=== PATIENT | female | born 1980 | race Caucasian/White ===

== ENCOUNTER 2021-02-13 14:08 | Inpatient (IN) | payer MEDICARE, SELFPAY ==
--- NOTE | ~2021-02-13 | XR_ITS ---
EXAMINATION: XR CHEST CLINICAL INFORMATION: Hemoptysis. COMPARISON: Chest 02/13/2021 TECHNIQUE: Frontal view of the chest was obtained. FINDINGS: The lungs are well-expanded with patchy opacity seen right lower lobe, right upper lobe and ill-defined patchy opacity left midlung likely developing infiltrates. No pleural effusion seen. Heart size and vascularity is normal. No gross bony abnormality seen. Previously visualized right central venous catheter has been removed. No gross bony abnormality. XR/XR chest 1V IMPRESSION: Patchy opacity right lower lobe, right upper lung and left midlung
--- NOTE | ~2021-02-13 | CT_ITS ---
EXAMINATION: CT CHEST WITHOUT CONTRAST CLINICAL INFORMATION: eval for empyema, sob, cough, fever . COMPARISON: 10/28/2019. TECHNIQUE: Multidetector volumetric imaging was performed from the thoracic inlet through the lung bases without contrast. Sagittal and coronal reformatted images were obtained on the technologist workstation. Soft tissue and lung algorithms evaluated. Thick slab MIP images were performed to increase nodule conspicuity. This CT examination was performed using dose optimization techniques as appropriate, variously including the following: *Automated exposure control *Adjustment of mA and/or kV according to patient size (this includes techniques or standardized protocols for targeted exams where dose is matched to indication/reason for exam; i.e. extremities or head) *Use of iterative reconstruction technique DLP: 241 mGy-cm. FINDINGS: LUNG: Patchy bilateral airspace disease is seen some of which is cavitary in nature. The largest area of focal airspace disease in the right upper lobe measures up to 4.4 cm in maximal diameter. These regions have a regular ill-defined margins more suggestive of underlying infectious or inflammatory causes. There are additional scattered thin wall cavity is now present which were not present on the prior CT scan. The underlying etiology is uncertain but multifocal infectious etiology would be favored. Infected septic emboli could have this distribution. MEDIASTINUM: No bulky hilar or mediastinal adenopathy. Right-sided IJ central venous catheter tip near the cavoatrial junction. PERICARDIUM/PLEURA: No significant effusion. No pleural mass or thickening. THYROID/VISUALIZED LOWER NECK: Unremarkable. CHEST WALL/AXILLA: Prominent bilateral axillary lymph nodes but no bulky adenopathy VISUALIZED UPPER ABDOMEN: Surgical clips in the left upper quadrant likely from prior splenectomy. BONES: Chronic compression deformity and degenerative changes in lower thoracic spine similar to the [address]/CT chest wo con IMPRESSION: New patchy bilateral airspace disease some which are cavitary. Focal infectious etiology would be strongly favored with this appearance. Septic emboli could have this distribution and should be clinically correlated..
--- NOTE | ~2021-02-13 | IR_ITS ---
EXAMINATION: REMOVAL OF DAVIES CATHETER CLINICAL INFORMATION: Sepsis. Likely infected Davies catheter. COMPARISON: None. TECHNIQUE: Following explaining the procedure, benefits and risk, a written consent was obtained. The site of insertion of Davies catheter was cleaned and draped in usual sterile manner. 1% lidocaine was injected at the insertion site of the Davies catheter and the skin incision was bluntly dissected. The cuff was loosened and the catheter was removed. Complete hemostasis achieved at puncture site. Sterile dressing applied postprocedure. Patient tolerated procedure well. IR/IR cvc remove any age FINDINGS/IMPRESSION: Successful removal of right Davies catheter. The tip of the Davies catheter was sent to pathology for [employer] SUPER[employer]. There was no immediate bleeding.
--- NOTE | ~2021-02-13 | US_ITS ---
EXAMINATION: US VENOUS ULTRASOUND WITH DOPPLER LOWER EXTREMITY, BILATERAL CLINICAL INFORMATION: Bilateral lower extremity swelling. COMPARISON: None TECHNIQUE: Ultrasound of the deep veins is performed from the hip to the calf with compression sonography and color and pulse Doppler assessment. Spectral analysis with color-flow imaging is performed. FINDINGS: RIGHT: There is normal venous compression and respiratory variation and augmented flow. The visualized common femoral vein, superficial femoral vein, profunda femoral vein, popliteal vein, and the trifurcation region shows no evidence of deep venous thrombosis. There is no popliteal fossa cyst. LEFT: There is acute DVT seen in the left popliteal vein. The left common femoral, superficial femoral, profunda femoral and visualized posterior tibial and peroneal veins in the calf are patent. There is no Bell's cyst. There is left renal lymphadenopathy. US/US venous duplex LE BI IMPRESSION: Left: Left popliteal vein DVT. Right: No evidence of DVT.
--- NOTE | ~2021-02-13 | XR_ITS ---
EXAMINATION: XR CHEST CLINICAL INFORMATION: Central line placement COMPARISON: Chest 10/28/2019 TECHNIQUE: 2 views of the chest were obtained. FINDINGS: There is a patchy opacities seen in the right upper lobe and right lower lobe likely infiltrates or underlying lesions. There is patchy scattered opacity in the left midlung. The heart size and pulmonary vascularity is normal. There is a right Zaman insertion with its tip in mid to distal SVC. No gross bony abnormality seen. XR/XR chest 2V IMPRESSION: Patchy opacities in right upper lobe and right lower lobe and scattered opacity left mid lobe likely developing infiltrates. Right Zaman catheter tip is in mid SVC.
[2021-02-13 14:26] VITALS: BP 175/95; PULSE 94; RESP 18; TEMP 36.9; O2SAT 94; BMI 25.8
--- NOTE | 2021-02-13 15:25 | ECG_ITS ---
Test Reason : CHEST PAIN Blood Pressure : / mmHG Vent. Rate : 086 BPM Atrial Rate : 086 BPM P-R Int : 170 ms QRS Dur : 096 ms QT Int : 366 ms P-R-T Axes : 058 014 032 degrees QTc Int : 437 ms Sinus rhythm with occasional Premature ventricular complexes Possible Left atrial enlargement Borderline ECG When compared with ECG of 28-OCT-2019 20:02, Premature ventricular complexes are now Present Premature atrial complexes are no longer Present Referred By: Chloé Shah Electronically Signed By:EDUARDO SHEPPARD
--- NOTE | 2021-02-13 16:20 | ED.CHESTPAIN ---
HPI - Chest Pain General Chief Complaint: Chest Pain Stated Complaint: Diff breathing swollen feet Time Seen by Provider: 02/13/21 15:08 Source: patient Mode of arrival: ambulatory Limitations: no limitations History of Present Illness HPI narrative: 40-year-old female with a past medical history of MRSA bacteremia with bilateral empyemas, septic emboli, multifocal PNA requiring chest tube placement ([facility] initially then transfer to [facility] for thoracics consult 12/21-01/11-evaluated for VATS and decision made not to perform secondary to clinical improvement). Plan was IV vancomycin with stop date of February 14. Patient was transfer from [facility] on January 11 to a long-term care facility for continued IV antibiotics. She tells me she left there approximately 1 week ago because she did not like it there. Since leaving she has used heroin approximately 1 bundle per day. Denies current IV drug use. She was on 76mg of methadone during her admission.The last few days she has had chest discomfort which is when deep breathing, productive cough with green sputum, body aches, bilateral lower extremity swelling and pain. Of note the patient also has a medical history of PTSD, bipolar disorder, antiphospholipid syndrome complicated by CVA, multiple DVT's/PE's s/p IVC filter, on 81mg ASA daily, lupus, CKD, HTN, hepatitis C s/p treatment with epclusa Related Data Home Medications Medication Instructions Recorded Confirmed albuterol sulfate 90 mcg/actuation 2 puff INHALATION Q6H PRN 02/28/20 02/13/21 aerosol inhaler famotidine 20 mg tablet 20 mg PO DAILY 02/28/20 02/13/21 quetiapine 400 mg tablet (Seroquel) 400 mg PO BEDTIME 02/28/20 02/13/21 amlodipine 10 mg tablet 10 mg PO DAILY 02/13/21 02/13/21 aspirin 81 mg chewable tablet 81 mg PO DAILY 02/13/21 02/13/21 clonidine HCl 0.1 mg tablet 0.1 mg PO BID PRN 02/13/21 02/13/21 melatonin 5 mg tablet 5 mg PO BEDTIME PRN 02/13/21 02/13/21 sumatriptan succinate 50 mg tablet 50 mg PO Q2H PRN 02/13/21 02/13/21 (Imitrex) topiramate 200 mg tablet 200 mg PO BID 02/13/21 02/13/21 Allergies Allergy/AdvReac Type Severity Reaction Status Date / Time bee pollen [BEE STINGS] Allergy Severe Anaphylaxis Verified 02/13/21 14:25 codeine [CODEINE] Allergy Severe ANAPHYLAXIS Verified 02/13/21 14:25 Iodinated Contrast Media Allergy Severe DIFFICULTY Verified 02/13/21 14:25 [IV DYE, IODINE CONTAINING BREATHING CONTRAST ] nut - unspecified [nut] Allergy Intermediate Rash Verified 02/13/21 14:25 shellfish derived Allergy Intermediate Rash Verified 02/13/21 14:25 Sulfa (Sulfonamide Allergy Unknown ANAPHYLAXIS Verified 02/13/21 14:25 Antibiotics) [SULFA (SULFONAMIDE ANTIBIOTICS)] Review of Systems Review of Systems: Yes all other systems are reviewed and are negative Constitutional: Constitutional: Reports no additional constitutional complaints, Reports body ache(s), Denies chills, Denies fever(s), Denies headache(s) and Denies weakness Eyes: Eyes: Reports no additional eye complaints and Denies change in vision ENT: Reports system reviewed and no additional complaints, except as documented, Denies dizziness, Denies headache(s), Denies nasal congestion, Denies nasal discharge and Denies neck pain Cardiovascular: Cardiovascular: Reports no additional cardiovascular complaints, Reports chest pain, Reports leg edema and Reports dyspnea Respiratory: Respiratory: Reports no additional respiratory complaints, Reports cough and Reports dyspnea Gastrointestinal: Gastrointestinal: Reports no additional gastrointestinal complaints, Denies abdominal pain, Denies diarrhea, Denies nausea and Denies vomiting Genitourinary: Genitourinary: Reports no additional female genitourinary complaints and Denies urinary incontinence Musculoskeletal: Musculoskeletal: Reports no additional musculoskeletal complaints, Denies back pain, Denies arthralgias, Denies joint swelling, Denies neck pain, Denies numbness and Denies tingling Integumentary/Breasts: Skin/Breast: Reports system reviewed and no additional complaints, except as docu and Denies rash Neurologic: Reports system reviewed and no additional complaints, except as documented, Denies Abnormal speech present, Denies dizziness, Denies headache(s), Denies numbness, Denies tingling and Denies weakness PMFSH Past Medical History Attestation statement: The following information was validated with the patient. Source: old records reviewed and nursing notes reviewed Medical History (Updated 02/13/21 @ 21:24 by hCloé Shah NP) DVT (deep venous thrombosis) Margie filter in place Lupus Pneumonia Pulmonary emboli Surgical History History of appendectomy Hx of splenectomy Social History Social History Advance Directives: No Advance Directives Information Provided: No Patient : No Physical Exam Vital Signs: Vital Signs: Last Vital Signs Temp 99 F 02/13/21 20:07 Pulse 58 02/13/21 20:07 Resp 18 02/13/21 20:07 BP 149/105 H 02/13/21 20:07 Pulse Ox 94 02/13/21 20:07 Body Mass Index 25.8 Const: General: cooperative, healthy appearing, comfortable and no acute distress Orientation/consciousness: patient oriented x3 Limitations: no limitations HENMT: Head: Yes normal to inspection Ears: hearing grossly normal bilaterally General nose exam: Normal external nose present Face and sinus: Yes normal facial exam Mouth: Normal oral and palatal mucosa present Throat: Yes posterior oropharynx normal Eyes: General: appearance normal, both eyes and all related structures Pupils: Equal, round and reactive pupils present Neck: Neck: Yes normal visual inspection and Yes full ROM Chest: Other: Zaman noted to the right chest wall-FLUSHES WITH +BLOOD RETURN Chest palpation & inspection: normal inspection of the chest and tenderness (Diffusely tender) Resp: Effort & Inspection: normal respiratory effort Auscultation: clear to auscultation bilaterally Cardio: Rate: regular rate Rhythm: regular rhythm Peripheral pulses: Peripheral pulses 2+ throughout GI: Inspection: Yes normal to inspection Palpation (GI): Soft to palpation and nontender Auscultation: normal bowel sounds Back/Spine/Pelvis: Thoracic/Lumbar Spine: thoracic and lumbar spine normal to inspection Skin: General skin exam: no rashes or lesions noted Neuro: General: patient oriented x3, no focal motor deficits and normal sensation to monofilament Cranial nerves: Yes Equal, round and reactive pupils present Cognition (Neuro): normal cognition Speech: No Abnormal speech present Gait exam (Neuro): Normal gait present Motor exam (neuro): 5/5 motor strength present throughout Extrem: Other: Tenderness to bilateral calves. There is pitting edema 3+ noted to the bilateral lower extremities. Palpable distal pulses noted. General: Yes normal to inspection Course Course Course Narrative: 40-year-old female coming in today with complaints of chest discomfort which is worsened with deep breathing with some mild shortness of breath, productive cough, body aches, chills and lower extremity swelling for several days. Of note the patient recently had a prolonged hospitalization for MRSA bacteremia with bilateral empyema is requiring chest tube placement and Thoracics consult, septic emboli, multifocal PNA and hypoxemia with discharged to a long-term care facility on January 11 for IV antibiotics until February 14. Patient left against medical advice 1 week ago with a Zaman in the right chest wall. On arrival she is disheveled, unkept. Her vital signs are stable. She has bilateral lower extremity swelling just pitting. Will need labs including blood cultures and lactic acid, chest x-ray, possible CT chest, bilateral lower extremity ultrasound, COVID screen and admission 1614-at this time infection is suspected. Antibiotics ordered. 163-call from Radiology. Ultrasound of lower extremity shows an acute DVT in the left popliteal vein. Patient has an IVC filter. She is not on any anticoagulation with the exception of aspirin 81 mg. Will follow 172-x-ray concerning IMPRESSION: Patchy opacities in right upper lobe and right lower lobe and scattered opacity left mid lobe likely developing infiltrates. ? Right Zaman catheter tip is in mid SVC. Will check CT chest. Unable to give IV contrast to r/o PE d/t allergy. However, patient has IVC filter so less likely. 1800-spoke to Cecy Espino the psychiatric nurse practitioner in regards to methadone dosing. Recommended starting patient at 20 mg and then reassessing at 04:00 hours for an additional 5-10 mg. She will follow up patient for additional dosage 1857-CT chest shows new patchy bilateral airspace disease some which are cavitary. Septic emboli could have his distribution and should be clinically correlated. Patient does have history of same. Will speak to Medicine to admit 1929-discussed with Dr. Whitehead who accepted admission. Requesting discussion with hematology to determine need for anticoagulation with new DVT and history of antiphospholipid syndrome not currently on anticoagulation. Patient tells me that she had been on Coumadin until 2014. It was discontinued due to heavy vaginal bleeding and the decision was made by her team to place her on 81 mg of aspirin only. She has not had a DVT since prior to 2014. Spoke to Dr. Casiano from Hematology. She recommended anticoagulating the patient with Lovenox. The medicine team was informed. MDM - Chest Pain Medical Records Data Attestation: I reviewed the patient's medical records. Lab Data Attestation: I reviewed the patient's lab results. Result diagrams: 02/13/21 16:11 02/13/21 16:11 Labs: Lab Results 02/13/21 02/13/21 02/13/21 Range/Units 16:11 16:11 16:11 WBC 20.9 H (4.8-10.8) X10*3/uL RBC 3.23 L (4.20-5.50) X10*6/uL Hgb 10.3 L (12.0-16.0) g/dl Hct 31.3 L (37-47) % MCV 96.9 (80-98) fL MCH 31.9 (27.0-33.0) pg MCHC 32.9 (31.0-35.0) g/dl RDW 14.5 (11.0-16.0) % Plt Count 323 (160-400) X10*3/uL MPV 12.2 (9.4-12.3) fL Immature Gran % (Auto) Cancelled Neut % (Auto) Cancelled Lymph % (Auto) Cancelled [place] % (Auto) Cancelled Eos % (Auto) Cancelled Baso % (Auto) Cancelled Lymph # (Auto) Cancelled [place] # (Auto) Cancelled Eos # (Auto) Cancelled Baso # (Auto) Cancelled Abs Immat Gran (auto) Cancelled Absolute Neuts (auto) Cancelled Absolute Nucleated RBC 0.000 (0.0-0.012) X10*3/uL Nucleated RBC % (auto) 0.0 (0.0-0.2) /100WBC Neutrophils % (Manual) 87 H (45-73) % Band Neutrophils % 2 L (3-5) % Lymphocytes % (Manual) 6 L (20-40) % Monocytes % (Manual) 5 (2-11) % Abs Neuts (Manual) 18.6 H (2.2-7.9) X10*3/uL Lymphocytes # (Manual) 1.3 (0.6-4.8) X10*3/uL Monocytes # (Manual) 1.0 (0.0-1.2) X10*3/uL Toxic Vacuolation PRESENT Platelet Estimate NORMAL (NORMAL) Large Platelets PRESENT Plt Morphology Comment NOTED RBC Morphology NOTED Polychromasia 1+ (0-2) /OIF Microcytosis 1+ (5-14) /OIF Stomatocytes 1+ (5-14) /OIF [place] Cells 1+ (0-2) /OIF PT 12.9 (9.9-13.0) SEC INR 1.1 (0.9-1.1) Sodium 138 (135-145) mmol/L Potassium 3.4 (3.3-5.1) mmol/L Chloride 99 (96-108) mmol/L Carbon Dioxide 27 (22-29) mmol/L Anion Gap 15 (12-20) BUN 12 (9-16) mg/dL Creatinine 1.40 (0.5-1.4) mg/dL Estim Creat Clear Calc 57.7 Estimated GFR 41 Random Glucose 88 (60-115) mg/dL Lactic Acid (0.5-2.0) mmol/L Calcium 9.0 (8.4-10.2) mg/dL Magnesium 1.6 (1.6-2.6) mg/dL Total Bilirubin 0.8 (0.0-1.0) mg/dL Direct Bilirubin 0.2 (0.0-0.5) mg/dL AST 17 (5-31) U/L ALT 6 (0-31) U/L Alkaline Phosphatase 181 H (39-117) U/L Total Creatine Kinase (26-140) U/L Troponin I High Sens (<3.5-17.0) ng/L B-Natriuretic Peptide (<100) pg/mL Total Protein 7.1 (6.5-8.0) g/dL Albumin 3.0 L (3.5-5.0) g/dL Urine Color Urine Appearance Urine pH (5.0-8.0) Ur Specific [place] (1.005-1.025) Urine Protein (NEG-TRACE) MG/DL Urine Glucose (UA) (NEG) MG/DL Urine Ketones (NEG) MG/DL Urine Blood (NEG) Urine Nitrite (NEG) Ur Leukocyte Esterase (NEG) Urine RBC (0) /HPF Urine WBC (0-4) /HPF Ur Squamous Epith Cells /LPF Urine Bacteria /LPF Urine Test (NEGATIVE) Urine Opiates Screen (Not Detect) Urine Fentanyl Screen (Not Detect) Ur Barbiturates Screen (Not Detect) Ur Phencyclidine Scrn (Not Detect) Ur Amphetamines Screen (Not Detect) U Benzodiazepines Scrn (Not Detect) Urine Cocaine Screen (Not Detect) U Marijuana (THC) Screen (Not Detect) Ethyl Alcohol mg/dL COVID-19 (ADAM) (Negative) COVID-19 Clin Com 02/13/21 02/13/21 02/13/21 Range/Units 16:11 16:11 16:11 WBC (4.8-10.8) X10*3/uL RBC (4.20-5.50) X10*6/uL Hgb (12.0-16.0) g/dl Hct (37-47) % MCV (80-98) fL MCH (27.0-33.0) pg MCHC (31.0-35.0) g/dl RDW (11.0-16.0) % Plt Count (160-400) X10*3/uL MPV (9.4-12.3) fL Immature Gran % (Auto) Neut % (Auto) Lymph % (Auto) [place] % (Auto) Eos % (Auto) Baso % (Auto) Lymph # (Auto) [place] # (Auto) Eos # (Auto) Baso # (Auto) Abs Immat Gran (auto) Absolute Neuts (auto) Absolute Nucleated RBC (0.0-0.012) X10*3/uL Nucleated RBC % (auto) (0.0-0.2) /100WBC Neutrophils % (Manual) (45-73) % Band Neutrophils % (3-5) % Lymphocytes % (Manual) (20-40) % Monocytes % (Manual) (2-11) % Abs Neuts (Manual) (2.2-7.9) X10*3/uL Lymphocytes # (Manual) (0.6-4.8) X10*3/uL Monocytes # (Manual) (0.0-1.2) X10*3/uL Toxic Vacuolation Platelet Estimate (NORMAL) Large Platelets Plt Morphology Comment RBC Morphology Polychromasia /OIF Microcytosis /OIF Stomatocytes /OIF Annie Cells /OIF PT (9.9-13.0) SEC INR (0.9-1.1) Sodium (135-145) mmol/L Potassium (3.3-5.1) mmol/L Chloride (96-108) mmol/L Carbon Dioxide (22-29) mmol/L Anion Gap (12-20) BUN (9-16) mg/dL Creatinine (0.5-1.4) mg/dL Estim Creat Clear Calc Estimated GFR Random Glucose (60-115) mg/dL Lactic Acid 1.0 (0.5-2.0) mmol/L Calcium (8.4-10.2) mg/dL Magnesium (1.6-2.6) mg/dL Total Bilirubin (0.0-1.0) mg/dL Direct Bilirubin (0.0-0.5) mg/dL AST (5-31) U/L ALT (0-31) U/L Alkaline Phosphatase (39-117) U/L Total Creatine Kinase 19 L (26-140) U/L Troponin I High Sens 18.5 H* (<3.5-17.0) ng/L B-Natriuretic Peptide 115 H (<100) pg/mL Total Protein (6.5-8.0) g/dL Albumin (3.5-5.0) g/dL Urine Color Urine Appearance Urine pH (5.0-8.0) Ur Specific [place] (1.005-1.025) Urine Protein (NEG-TRACE) MG/DL Urine Glucose (UA) (NEG) MG/DL Urine Ketones (NEG) MG/DL Urine Blood (NEG) Urine Nitrite (NEG) Ur Leukocyte Esterase (NEG) Urine RBC (0) /HPF Urine WBC (0-4) /HPF Ur Squamous Epith Cells /LPF Urine Bacteria /LPF Urine Test (NEGATIVE) Urine Opiates Screen (Not Detect) Urine Fentanyl Screen (Not Detect) Ur Barbiturates Screen (Not Detect) Ur Phencyclidine Scrn (Not Detect) Ur Amphetamines Screen (Not Detect) U Benzodiazepines Scrn (Not Detect) Urine Cocaine Screen (Not Detect) U Marijuana (THC) Screen (Not Detect) Ethyl Alcohol mg/dL COVID-19 (ADAM) (Negative) COVID-19 Clin Com 02/13/21 02/13/21 02/13/21 Range/Units 16:11 16:21 19:16 WBC (4.8-10.8) X10*3/uL RBC (4.20-5.50) X10*6/uL Hgb (12.0-16.0) g/dl Hct (37-47) % MCV (80-98) fL MCH (27.0-33.0) pg MCHC (31.0-35.0) g/dl RDW (11.0-16.0) % Plt Count (160-400) X10*3/uL MPV (9.4-12.3) fL Immature Gran % (Auto) Neut % (Auto) Lymph % (Auto) [place] % (Auto) Eos % (Auto) Baso % (Auto) Lymph # (Auto) [place] # (Auto) Eos # (Auto) Baso # (Auto) Abs Immat Gran (auto) Absolute Neuts (auto) Absolute Nucleated RBC (0.0-0.012) X10*3/uL Nucleated RBC % (auto) (0.0-0.2) /100WBC Neutrophils % (Manual) (45-73) % Band Neutrophils % (3-5) % Lymphocytes % (Manual) (20-40) % Monocytes % (Manual) (2-11) % Abs Neuts (Manual) (2.2-7.9) X10*3/uL Lymphocytes # (Manual) (0.6-4.8) X10*3/uL Monocytes # (Manual) (0.0-1.2) X10*3/uL Toxic Vacuolation Platelet Estimate (NORMAL) Large Platelets Plt Morphology Comment RBC Morphology Polychromasia /OIF Microcytosis /OIF Stomatocytes /OIF Annie Cells /OIF PT (9.9-13.0) SEC INR (0.9-1.1) Sodium (135-145) mmol/L Potassium (3.3-5.1) mmol/L Chloride (96-108) mmol/L Carbon Dioxide (22-29) mmol/L Anion Gap (12-20) BUN (9-16) mg/dL Creatinine (0.5-1.4) mg/dL Estim Creat Clear Calc Estimated GFR Random Glucose (60-115) mg/dL Lactic Acid (0.5-2.0) mmol/L Calcium (8.4-10.2) mg/dL Magnesium (1.6-2.6) mg/dL Total Bilirubin (0.0-1.0) mg/dL Direct Bilirubin (0.0-0.5) mg/dL AST (5-31) U/L ALT (0-31) U/L Alkaline Phosphatase (39-117) U/L Total Creatine Kinase (26-140) U/L Troponin I High Sens (<3.5-17.0) ng/L B-Natriuretic Peptide (<100) pg/mL Total Protein (6.5-8.0) g/dL Albumin (3.5-5.0) g/dL Urine Color YELLOW Urine Appearance HAZY Urine pH 6.0 (5.0-8.0) Ur Specific [place] 1.025 (1.005-1.025) Urine Protein 2+ H (NEG-TRACE) MG/DL Urine Glucose (UA) NEG (NEG) MG/DL Urine Ketones NEG (NEG) MG/DL Urine Blood 3+ H (NEG) Urine Nitrite NEG (NEG) Ur Leukocyte Esterase NEG (NEG) Urine RBC 1-4 (0) /HPF Urine WBC 0 (0-4) /HPF Ur Squamous Epith Cells 4+ /LPF Urine Bacteria 2+ /LPF Urine Test (NEGATIVE) Urine Opiates Screen (Not Detect) Urine Fentanyl Screen (Not Detect) Ur Barbiturates Screen (Not Detect) Ur Phencyclidine Scrn (Not Detect) Ur Amphetamines Screen (Not Detect) U Benzodiazepines Scrn (Not Detect) Urine Cocaine Screen (Not Detect) U Marijuana (THC) Screen (Not Detect) Ethyl Alcohol < 10 mg/dL COVID-19 (ADAM) Negative (Negative) COVID-19 Clin Com See Note 02/13/21 02/13/21 02/13/21 Range/Units 19:16 19:16 19:23 WBC (4.8-10.8) X10*3/uL RBC (4.20-5.50) X10*6/uL Hgb (12.0-16.0) g/dl Hct (37-47) % MCV (80-98) fL MCH (27.0-33.0) pg MCHC (31.0-35.0) g/dl RDW (11.0-16.0) % Plt Count (160-400) X10*3/uL MPV (9.4-12.3) fL Immature Gran % (Auto) Neut % (Auto) Lymph % (Auto) [place] % (Auto) Eos % (Auto) Baso % (Auto) Lymph # (Auto) [place] # (Auto) Eos # (Auto) Baso # (Auto) Abs Immat Gran (auto) Absolute Neuts (auto) Absolute Nucleated RBC (0.0-0.012) X10*3/uL Nucleated RBC % (auto) (0.0-0.2) /100WBC Neutrophils % (Manual) (45-73) % Band Neutrophils % (3-5) % Lymphocytes % (Manual) (20-40) % Monocytes % (Manual) (2-11) % Abs Neuts (Manual) (2.2-7.9) X10*3/uL Lymphocytes # (Manual) (0.6-4.8) X10*3/uL Monocytes # (Manual) (0.0-1.2) X10*3/uL Toxic Vacuolation Platelet Estimate (NORMAL) Large Platelets Plt Morphology Comment RBC Morphology Polychromasia /OIF Microcytosis /OIF Stomatocytes /OIF [place] Cells /OIF PT (9.9-13.0) SEC INR (0.9-1.1) Sodium (135-145) mmol/L Potassium (3.3-5.1) mmol/L Chloride (96-108) mmol/L Carbon Dioxide (22-29) mmol/L Anion Gap (12-20) BUN (9-16) mg/dL Creatinine (0.5-1.4) mg/dL Estim Creat Clear Calc Estimated GFR Random Glucose (60-115) mg/dL Lactic Acid (0.5-2.0) mmol/L Calcium (8.4-10.2) mg/dL Magnesium (1.6-2.6) mg/dL Total Bilirubin (0.0-1.0) mg/dL Direct Bilirubin (0.0-0.5) mg/dL AST (5-31) U/L ALT (0-31) U/L Alkaline Phosphatase (39-117) U/L Total Creatine Kinase (26-140) U/L Troponin I High Sens 17.1 H* (<3.5-17.0) ng/L B-Natriuretic Peptide (<100) pg/mL Total Protein (6.5-8.0) g/dL Albumin (3.5-5.0) g/dL Urine Color Urine Appearance Urine pH (5.0-8.0) Ur Specific [place] (1.005-1.025) Urine Protein (NEG-TRACE) MG/DL Urine Glucose (UA) (NEG) MG/DL Urine Ketones (NEG) MG/DL Urine Blood (NEG) Urine Nitrite (NEG) Ur Leukocyte Esterase (NEG) Urine RBC (0) /HPF Urine WBC (0-4) /HPF Ur Squamous Epith Cells /LPF Urine Bacteria /LPF Urine Test NEGATIVE (NEGATIVE) Urine Opiates Screen POSITIVE H (Not Detect) Urine Fentanyl Screen POSITIVE H (Not Detect) Ur Barbiturates Screen Not Detected (Not Detect) Ur Phencyclidine Scrn Not Detected (Not Detect) Ur Amphetamines Screen Not Detected (Not Detect) U Benzodiazepines Scrn Not Detected (Not Detect) Urine Cocaine Screen POSITIVE H (Not Detect) U Marijuana (THC) Screen Not Detected (Not Detect) Ethyl Alcohol mg/dL COVID-19 (ADAM) (Negative) COVID-19 Clin Com Imaging Data Venous US: Attestation: I personally reviewed and interpreted this imaging study as follows: Radiologist's impression: [place] [id number] Ultrasound Report Signed Patient: Melita Butler MR#: [id number] : 1980 Acct:[id number] Age/Sex: 40 / F ADM Date: 02/13/21 Loc: .ED Attending Dr: Ordering Physician: Chloé Shah NP Date of Service: 02/13/21 Procedure(s): US venous duplex LE BI Accession Number(s): [id number] cc: Chloé Shah NP~ EXAMINATION:? US VENOUS ULTRASOUND WITH DOPPLER LOWER EXTREMITY, BILATERAL CLINICAL INFORMATION:? Bilateral lower extremity swelling. COMPARISON:? None TECHNIQUE: Ultrasound of the deep veins is performed from the hip to the calf with compression sonography and color and pulse Doppler assessment. Spectral analysis with color-flow imaging is performed. FINDINGS: RIGHT: There is normal venous compression and respiratory variation and augmented flow. The visualized common femoral vein, superficial femoral vein, profunda femoral vein, popliteal vein, and the trifurcation region shows no evidence of deep venous thrombosis. ? There is no popliteal fossa cyst. LEFT: There is acute DVT seen in the left popliteal vein. The left common femoral, superficial femoral, profunda femoral and visualized posterior tibial and peroneal veins in the calf are patent. There is no Bell's cyst. There is left renal lymphadenopathy. US/US venous duplex LE BI IMPRESSION: Left: Left popliteal vein DVT. ? Right: No evidence of DVT. Chest x-ray: Attestation: I personally reviewed and interpreted this imaging study as follows: Radiologist's impression: Date of Service: 02/13/21 Procedure(s): XR chest 2V Accession Number(s): [id number] cc: Chloé Shah NP~ EXAMINATION: XR CHEST CLINICAL INFORMATION: Central line placement COMPARISON: Chest 10/28/2019 TECHNIQUE: 2 views of the chest were obtained. FINDINGS: There is a patchy opacities seen in the right upper lobe and right lower lobe likely infiltrates or underlying lesions. There is patchy scattered opacity in the left midlung. The heart size and pulmonary vascularity is normal. There is a right Zaman insertion with its tip in mid to distal SVC. No gross bony abnormality seen. XR/XR chest 2V IMPRESSION: Patchy opacities in right upper lobe and right lower lobe and scattered opacity left mid lobe likely developing infiltrates. ? Right Zaman catheter tip is in mid SVC. CT scan - chest: Attestation: I personally reviewed and interpreted this imaging study as follows: Radiologist's impression: FINDINGS: LUNG: Patchy bilateral airspace disease is seen some of which is cavitary in nature. The largest area of focal airspace disease in the right upper lobe measures up to 4.4 cm in maximal diameter. These regions have a regular ill-defined margins more suggestive of underlying infectious or inflammatory causes. There are additional scattered thin wall cavity is now present which were not present on the prior CT scan. The underlying etiology is uncertain but multifocal infectious etiology would be favored. Infected septic emboli could have this distribution. MEDIASTINUM: No bulky hilar or mediastinal adenopathy. Right-sided IJ central venous catheter tip near the cavoatrial junction. PERICARDIUM/PLEURA: No significant effusion. No pleural mass or thickening. THYROID/VISUALIZED LOWER NECK: Unremarkable. CHEST WALL/AXILLA: Prominent bilateral axillary lymph nodes but no bulky adenopathy VISUALIZED UPPER ABDOMEN:? Surgical clips in the left upper quadrant likely from prior splenectomy. BONES: Chronic compression deformity and degenerative changes in lower thoracic spine similar to the [address]/CT chest wo con IMPRESSION: New patchy bilateral airspace disease some which are cavitary. Focal infectious etiology would be strongly favored with this appearance. Septic emboli could have this distribution and should be clinically correlated.. ECG Data ECG #1: Attestation: I personally reviewed and interpreted this ECG as follows: ECG interpretation date: 02/13/21 ECG interpretation time: 15:28 Interpretation: Normal sinus rhythm with occasional PVCs with a rate of 86, normal MN, normal QRS normal QT Discharge Plan Discharge Clinical Impression: DVT (deep venous thrombosis), Antiphospholipid antibody positive, Opiate abuse, continuous, Septic embolism, Pneumonia Patient Disposition: Admitted As Inpatient
[2021-02-13 16:25] LABS: Hematocrit 31.3 % (37-47); Hemoglobin 10.3 g/dl (12.0-16.0); Mean Corpuscular HGB Conc 32.9 g/dl (31.0-35.0); Mean Corpuscular Hemoglobin 31.9 pg (27.0-33.0); Mean Corpuscular Volume 96.9 fL (80-98); Mean Platelet Volume 12.2 fL (9.4-12.3); Platelet Count 323 X10*3/uL (160-400); Red Blood Count 3.23 X10*6/uL (4.20-5.50); Red Cell Distribution Width 14.5 % (11.0-16.0)
[2021-02-13 16:27] VITALS: BP 169/103; PULSE 69; RESP 14; TEMP 37.1; O2SAT 96
[2021-02-13 16:33] LABS: WBC ABN SCTR FOR CBC 1
--- NOTE | 2021-02-13 16:34 | MHC.RECOVSUP ---
Recovery Support note: Patient is a 40 year old Indonesian speaking female who presented to [facility] [place] due to multiple complaints. This financial underwriter met with patient to discuss her substance use and treatment options. Patient reports she has been using approximately one bundle of heroin daily. Patient reports she left a SNF about a week and a half ago and that she was receiving 76mg of methadone while there. Patient reports she was living in [place] and her methadone clinic was in [place]. Patient reports she is now living in [place] with her mother. Patient was previously established with [facility] in [place]. Patient is not interested in Suboxone and reports she would like to restart methadone while in the hospital and be referred to a local OTP. Discussed case with Cecy Espino NP.
[2021-02-13 16:35] LABS: INTERNATIONAL NORM RATIO 1.1 (0.9-1.1); Prothrombin Time 12.9 SEC (9.9-13.0)
[2021-02-13 16:39] LABS: Ethanol < 10 mg/dL
[2021-02-13 16:44] LABS: White Blood Count 20.9 X10*3/uL (4.8-10.8)
[2021-02-13 16:53] LABS: COVID-19 Test Negative (Negative); IDNOW Serial# 9DD0AD1C
[2021-02-13 16:58] LABS: Alanine Aminotransferase 6 U/L (0-31); Alkaline Phosphatase 181 U/L (39-117); Anion Gap 15 (12-20); Aspartate Amino Transferase 17 U/L (5-31); Bilirubin Direct 0.2 mg/dL (0.0-0.5); Bilirubin Total 0.8 mg/dL (0.0-1.0); Blood Urea Nitrogen 12 mg/dL (9-16); Carbon Dioxide 27 mmol/L (22-29); Chloride 99 mmol/L (96-108); Creatinine Clr Calc Pharmacy 57.7; Estimated Glomerular Filt Rate 41; Glucose Random 88 mg/dL (60-115); Magnesium 1.6 mg/dL (1.6-2.6); Potassium 3.4 mmol/L (3.3-5.1); Sodium 138 mmol/L (135-145); Total Protein 7.1 g/dL (6.5-8.0)
[2021-02-13 16:59] LABS: B Type Natriuretic Peptide 115 pg/mL (<100); Troponin-I High Sensitivity 18.5 ng/L (<3.5-17.0)
[2021-02-13] MEDS: Piperacillin Sodium/Tazobactam 3.375 GM in 0.9 % Sodium Chloride 50 ML IV (17:03)
[2021-02-13 17:48] LABS: Band Neutrophils Percent 2 % (3-5); Neutrophils Absolute Manual 18.6 X10*3/uL (2.2-7.9); Neutrophils Percent Manual 87 % (45-73)
[2021-02-13] MEDS: vancomycin HCL 1,250 MG in 0.9 % Sodium Chloride 250 ML 166.67 MG IV (17:48)
[2021-02-13] MEDS: methADONE HCl 20 MG/2 ML ORAL.CONC PO (17:48)
--- NOTE | 2021-02-13 17:48 | PHA.MEDREC ---
Pharmacy Consult ? Medication Reconciliation Pharmacy has completed the medication reconciliation. Patient reports that she was in a facility in [place]. I contacted [facility], [facility], and [facility]. None of these facilities had recent records of the patient. I contacted [facility], as she was recently discharge on 01/11/2021. The Medical Record department would not release medication list or discharge summary to the pharmacist without patient consent. Notified the RN to inform the provider of the situation Yenny Garcia, KarineD
[2021-02-13 17:49] LABS: Lymphocytes Absolute Manual 1.3 X10*3/uL (0.6-4.8); Lymphocytes Percent Manual 6 % (20-40); Monocytes Percent Manual 5 % (2-11); RBC Morphology NOTED
[2021-02-13 17:51] LABS: Microcytosis 1+ (5-14) /OIF
[2021-02-13 17:52] LABS: Burr Cells 1+ (0-2) /OIF; Large Platelet PRESENT; Platelet Estimate NORMAL (NORMAL); Platelet Morphology Comment NOTED; Stomatocytes 1+ (5-14) /OIF; Toxic Vacuolation PRESENT
[2021-02-13 17:53] LABS: Polychromasia 1+ (0-2) /OIF
[2021-02-13 17:54] VITALS: BP 159/89; PULSE 58; RESP 16; O2SAT 98
--- NOTE | 2021-02-13 17:58 | PC.NURSE ---
ON arrival to ED, patient reports she left nursing AMA 1.5 weeks ago. Since then she has been unable to change her central line dressing. She has been placed more and more tape over the original dressing to keep it in place. On assessment, dirt and drainage found all over dressing. Site not clean. This RN shared her concern with MD for how dirty the line was before cleaning it. Per MD, keep using line as it works. Dressing changed.
[2021-02-13 18:00] VITALS: BP 167/90; PULSE 52; RESP 12; TEMP 37.2; O2SAT 96
[2021-02-13 19:33] LABS: Appearance Urine HAZY; Color Urine YELLOW; Glucose Urine UA NEG (NEG); Leukocyte Esterase Urine NEG (NEG); Nitrite Urine NEG (NEG); Specific Gravity - Urine 1.025 (1.005-1.025); UACC Culture Trigger NO; Urine Blood 3+ (NEG); Urine Ketones NEG (NEG); Urine Protein 2+ MG/DL (NEG-TRACE)
[2021-02-13 19:35] LABS: UPreg QC Valid YES; Urine Pregnancy NEGATIVE (NEGATIVE)
[2021-02-13 19:43] LABS: Bacteria Urine 2+ /LPF
[2021-02-13 19:44] LABS: Squamous Epithelial Cell Urine 4+ /LPF; WBC Urine 0 /HPF (0-4)
[2021-02-13 20:01] LABS: Troponin-I High Sensitivity 17.1 ng/L (<3.5-17.0)
[2021-02-13 20:07] VITALS: BP 149/105; PULSE 58; RESP 18; TEMP 37.2; O2SAT 94
--- NOTE | 2021-02-13 20:44 | P.HPHOSP_ITS ---
History of Present Illness Date of Service: 02/13/21 Chief Complaint: Chest pain 40-year-old female with a past medical history of IV drug abuse, history of antiphospholipid syndrome complicated by CVA, history of multiple DVT/PE status post IVC filter; was on anticoagulation and 2015; anticoagulation was disconti nued post menorrhagia in 2014 and reportedly has not had any blood clots since then; hypertension, CKD, hepatitis-C, PTSD, depression, bipolar, history of inpatient psychiatric admissions; recently admitted to the [facility] for MRSA bacteremia/bilateral empyema status post chest tube placement; subsequently chest tube was removed and sent to rehab via to finish antibiotics via Port-A-Cath until 02/13/2021; patient had echocardiogram done which showed no evidence of vegetations, MRI of the lumbar spine with no evidence of epidural abscess at [facility];Patient left AMA from the rehab about 3 weeks ago; has been living at home and using heroin heavily on a daily basis; presented to the hospital today with a chief complaint of chest pains. Patient reports that she has been having chest pain for the past couple days, tight in nature; no associated lightheadedness dizziness sweating; complains of mild shortness of breath; denies any nausea vomiting or diarrhea. Denies any numbness tingling or focal weakness. Denies any back pain. Denies any headaches or blurry visions. Mentioned that lately she has been snorting heroin. Reportedly patient was on methadone 76 mg until she was in the rehab and has not been taking anything in the past 1 week; ER course: Per ER team patient had contrast allergy hence status CT scan without contrast which showed cavitary pulmonary lesions concern for septic emboli; patient was given IV vancomycin and Zosyn; also noted to have peripheral edema on bilateral legs; DVT study showed left popliteal DVT. Discussed with from Hematology-Oncology suggested to start the patient on Levaquin. Also discussed with Cecy aquino from Addiction Medicine who recommended to give the patient methadone 20 mg and 5 mg after 4 hours if needed. Admitted for further management. [facility] Medical History (Updated 02/13/21 @ 21:24 by Chloé Shah NP) DVT (deep venous thrombosis) Sander filter in place Lupus Pneumonia Pulmonary emboli Surgical History History of appendectomy Hx of splenectomy Social History Advance Directives: No Advance Directives Information Provided: No Patient : No service: No Current occupational status: employed Meds Allergies Allergy/AdvReac Type Severity Reaction Status Date / Time bee pollen [BEE STINGS] Allergy Severe Anaphylaxis Verified 02/13/21 14:25 codeine [CODEINE] Allergy Severe ANAPHYLAXIS Verified 02/13/21 14:25 Iodinated Contrast Media Allergy Severe DIFFICULTY Verified 02/13/21 14:25 [IV DYE, IODINE CONTAINING BREATHING CONTRAST ] nut - unspecified [nut] Allergy Intermediate Rash Verified 02/13/21 14:25 shellfish derived Allergy Intermediate Rash Verified 02/13/21 14:25 Sulfa (Sulfonamide Allergy Unknown ANAPHYLAXIS Verified 02/13/21 14:25 Antibiotics) [SULFA (SULFONAMIDE ANTIBIOTICS)] Active Medications: Current Medications Generic Name Dose Route Start Last Admin Trade Name Freq PRN Reason Stop Dose Admin Albuterol/Ipratropium 3 ml 02/13/21 20:38 Albuterol/Iprat 2.5/0.5mg 3 Ml Ampul.Neb INHALE RQ4H PRN Shortness of Breath/Wheezing Amlodipine Besylate 10 mg 02/14/21 09:00 Amlodipine Besylate 10 Mg Tablet PO DAILY [facility] Protocol Aspirin 81 mg 02/14/21 09:00 Aspirin 81 Mg Tab.Chew PO DAILY [facility] Clonidine HCl 0.1 mg 02/13/21 20:42 Clonidine Hcl 0.1 Mg Tablet PO BID PRN Anxiety Protocol Docusate Sodium 100 mg 02/13/21 21:00 Docusate Sodium 100 Mg Capsule PO BID [facility] Enoxaparin Sodium 75 mg 02/13/21 20:45 Enoxaparin Sodium 80 Mg/0.8 Ml Syringe SUBCUT Q12H [facility] Vancomycin HCl 1,000 mg/ 270 mls @ 270 mls/hr 02/13/21 20:45 Sodium Chloride IV Q12H [facility] Piperacillin Sod/Tazobactam 50 mls @ 100 mls/hr 02/13/21 20:45 Sod 3.375 gm/ Sodium Chloride IV Q6H [facility] Sodium Chloride 1,000 mls @ 100 mls/hr 02/13/21 20:45 Ns IVCONT .Q10H [facility] Melatonin 6 mg 02/13/21 20:40 Melatonin 3 Mg Tablet PO BEDTIME PRN Insomnia Ondansetron HCl 4 mg 02/13/21 20:40 Ondansetron Hcl 4 Mg/2 Ml Vial IVPUSH Q8H PRN Nausea and Vomiting Oxycodone HCl 5 mg 02/13/21 20:40 Oxycodone Hcl Immed Release 5 Mg Tablet PO Q6H PRN Pain, Severe (Pain Scale 7-10) Pharmacy Consult 1 each 02/13/21 15:25 Consult Rx Perform Med Rec MISCELLANE ONCE PRN Consult order Pharmacy Consult 1 each 02/13/21 20:40 Consult Rx Vancomycin Dosing MISCELLANE DAILY PRN Consult order Senna 17.2 mg 02/13/21 20:40 Sennosides 8.6 Mg Tablet PO BEDTIME PRN Constipation Sodium Chloride 3 ml 02/14/21 00:00 0.9 % Sodium Chloride Flush 3 Ml Syringe IVFLUSH QSHIFT [facility] Topiramate 200 mg 02/13/21 21:00 Topiramate 100 Mg Tablet PO BID [facility] Home Medications Medication Instructions Recorded Confirmed Last Taken Type albuterol sulfate 90 mcg/actuation 2 puff INHALATION Q6H PRN 02/28/20 02/13/21 Unknown History aerosol inhaler famotidine 20 mg tablet 20 mg PO DAILY 02/28/20 02/13/21 02/13/21 History quetiapine 400 mg tablet (Seroquel) 400 mg PO BEDTIME 02/28/20 02/13/21 02/12/21 History amlodipine 10 mg tablet 10 mg PO DAILY 02/13/21 02/13/21 02/13/21 History aspirin 81 mg chewable tablet 81 mg PO DAILY 02/13/21 02/13/21 02/13/21 History clonidine HCl 0.1 mg tablet 0.1 mg PO BID PRN 02/13/21 02/13/21 Unknown History melatonin 5 mg tablet 5 mg PO BEDTIME PRN 02/13/21 02/13/21 Unknown History sumatriptan succinate 50 mg tablet 50 mg PO Q2H PRN 02/13/21 02/13/21 Unknown History (Imitrex) topiramate 200 mg tablet 200 mg PO BID 02/13/21 02/13/21 02/13/21 History Physical Exam Vital Signs and Narrative: Vital Signs: Last Vital Signs Temp 99 F 02/13/21 20:07 Pulse 58 02/13/21 20:07 Resp 18 02/13/21 20:07 BP 149/105 H 02/13/21 20:07 Pulse Ox 94 02/13/21 20:07 Body Mass Index 25.8 Gen: Appears be in no acute distress; speaks in full sentences HEENT: NCAT, Moist mucosa. Pulmonary: Coarse breath sounds CVS: Normal S1-S2 Abdomen: BS+, Soft, Nontender Extremities: Warm well perfused; bilateral lower extremities has pitting edema 2+; mild skin excoriations noted on the dorsum of the foot on the left foot; no spinal tenderness Neuro: Alert and awake.. Grossly nonfocal Results Labs CBC and Chem 7: 02/13/21 16:11 02/13/21 16:11 Labs: Laboratory Results - last 24 hr 02/13/21 02/13/21 02/13/21 16:11 16:11 16:11 MCV 96.9 MCH 31.9 MCHC 32.9 RDW 14.5 Plt Count 323 MPV 12.2 Immature Gran % (Auto) Cancelled Neut % (Auto) Cancelled Lymph % (Auto) Cancelled [place]verse % (Auto) Cancelled Eos % (Auto) Cancelled Baso % (Auto) Cancelled Lymph # (Auto) Cancelled [place]verse # (Auto) Cancelled Eos # (Auto) Cancelled Baso # (Auto) Cancelled Abs Immat Gran (auto) Cancelled Absolute Neuts (auto) Cancelled Absolute Nucleated RBC 0.000 Nucleated RBC % (auto) 0.0 Neutrophils % (Manual) 87 H Band Neutrophils % 2 L Lymphocytes % (Manual) 6 L Monocytes % (Manual) 5 Abs Neuts (Manual) 18.6 H Lymphocytes # (Manual) 1.3 Monocytes # (Manual) 1.0 Toxic Vacuolation PRESENT Platelet Estimate NORMAL Large Platelets PRESENT Plt Morphology Comment NOTED RBC Morphology NOTED Polychromasia 1+ (0-2) Microcytosis 1+ (5-14) Stomatocytes 1+ (5-14) Warrior Cells 1+ (0-2) PT 12.9 INR 1.1 Anion Gap 15 Estim Creat Clear Calc 57.7 Estimated GFR 41 Random Glucose 88 Lactic Acid Calcium 9.0 Magnesium 1.6 Total Bilirubin 0.8 Direct Bilirubin 0.2 AST 17 ALT 6 Alkaline Phosphatase 181 H Total Creatine Kinase Troponin I High Sens B-Natriuretic Peptide Total Protein 7.1 Albumin 3.0 L Urine Color Urine Appearance Urine pH Ur Specific [place] Urine Protein Urine Glucose (UA) Urine Ketones Urine Blood Urine Nitrite Ur Leukocyte Esterase Urine RBC Urine WBC Ur Squamous Epith Cells Urine Bacteria Urine Test Ethyl Alcohol COVID-19 (ADAM) COVID-19 [employer] Com 02/13/21 02/13/21 02/13/21 16:11 16:11 16:11 MCV MCH MCHC RDW Plt Count MPV Immature Gran % (Auto) Neut % (Auto) Lymph % (Auto) [place] % (Auto) Eos % (Auto) Baso % (Auto) Lymph # (Auto) [place] # (Auto) Eos # (Auto) Baso # (Auto) Abs Immat Gran (auto) Absolute Neuts (auto) Absolute Nucleated RBC Nucleated RBC % (auto) Neutrophils % (Manual) Band Neutrophils % Lymphocytes % (Manual) Monocytes % (Manual) Abs Neuts (Manual) Lymphocytes # (Manual) Monocytes # (Manual) Toxic Vacuolation Platelet Estimate Large Platelets Plt Morphology Comment RBC Morphology Polychromasia Microcytosis Stomatocytes Warrior Cells PT INR Anion Gap Estim Creat Clear Calc Estimated GFR Random Glucose Lactic Acid 1.0 Calcium Magnesium Total Bilirubin Direct Bilirubin AST ALT Alkaline Phosphatase Total Creatine Kinase 19 L Troponin I High Sens 18.5 H* B-Natriuretic Peptide 115 H Total Protein Albumin Urine Color Urine Appearance Urine pH Ur Specific [place] Urine Protein Urine Glucose (UA) Urine Ketones Urine Blood Urine Nitrite Ur Leukocyte Esterase Urine RBC Urine WBC Ur Squamous Epith Cells Urine Bacteria Urine Test Ethyl Alcohol COVID-19 (ADAM) COVID-19 Clin Com 02/13/21 02/13/21 02/13/21 16:11 16:21 19:16 MCV MCH MCHC RDW Plt Count MPV Immature Gran % (Auto) Neut % (Auto) Lymph % (Auto) [place] % (Auto) Eos % (Auto) Baso % (Auto) Lymph # (Auto) [place] # (Auto) Eos # (Auto) Baso # (Auto) Abs Immat Gran (auto) Absolute Neuts (auto) Absolute Nucleated RBC Nucleated RBC % (auto) Neutrophils % (Manual) Band Neutrophils % Lymphocytes % (Manual) Monocytes % (Manual) Abs Neuts (Manual) Lymphocytes # (Manual) Monocytes # (Manual) Toxic Vacuolation Platelet Estimate Large Platelets Plt Morphology Comment RBC Morphology Polychromasia Microcytosis Stomatocytes Annie Cells PT INR Anion Gap Estim Creat Clear Calc Estimated GFR Random Glucose Lactic Acid Calcium Magnesium Total Bilirubin Direct Bilirubin AST ALT Alkaline Phosphatase Total Creatine Kinase Troponin I High Sens B-Natriuretic Peptide Total Protein Albumin Urine Color YELLOW Urine Appearance HAZY Urine pH 6.0 Ur Specific [place] 1.025 Urine Protein 2+ H Urine Glucose (UA) NEG Urine Ketones NEG Urine Blood 3+ H Urine Nitrite NEG Ur Leukocyte Esterase NEG Urine RBC 1-4 Urine WBC 0 Ur Squamous Epith Cells 4+ Urine Bacteria 2+ Urine Test Ethyl Alcohol < 10 COVID-19 (ADAM) Negative COVID-19 Clin Com See Note 02/13/21 02/13/21 19:16 19:23 MCV MCH MCHC RDW Plt Count MPV Immature Gran % (Auto) Neut % (Auto) Lymph % (Auto) [place] % (Auto) Eos % (Auto) Baso % (Auto) Lymph # (Auto) [place] # (Auto) Eos # (Auto) Baso # (Auto) Abs Immat Gran (auto) Absolute Neuts (auto) Absolute Nucleated RBC Nucleated RBC % (auto) Neutrophils % (Manual) Band Neutrophils % Lymphocytes % (Manual) Monocytes % (Manual) Abs Neuts (Manual) Lymphocytes # (Manual) Monocytes # (Manual) Toxic Vacuolation Platelet Estimate Large Platelets Plt Morphology Comment RBC Morphology Polychromasia Microcytosis Stomatocytes Warrior Cells PT INR Anion Gap Estim Creat Clear Calc Estimated GFR Random Glucose Lactic Acid Calcium Magnesium Total Bilirubin Direct Bilirubin AST ALT Alkaline Phosphatase Total Creatine Kinase Troponin I High Sens 17.1 H* B-Natriuretic Peptide Total Protein Albumin Urine Color Urine Appearance Urine pH Ur Specific [place] Urine Protein Urine Glucose (UA) Urine Ketones Urine Blood Urine Nitrite Ur Leukocyte Esterase Urine RBC Urine WBC Ur Squamous Epith Cells Urine Bacteria Urine Test NEGATIVE Ethyl Alcohol COVID-19 (ADAM) COVID-19 Clin Com Imaging Radiologist's Impressions: Impressions Chest X-Ray 02/13/21 15:25 IMPRESSION: Patchy opacities in right upper lobe and right lower lobe and scattered opacity left mid lobe likely developing infiltrates. Right Zaman catheter tip is in mid SVC. Venous Duplex 02/13/21 15:26 IMPRESSION: Left: Left popliteal vein DVT. Right: No evidence of DVT. Chest CT 02/13/21 17:10 IMPRESSION: New patchy bilateral airspace disease some which are cavitary. Focal infectious etiology would be strongly favored with this appearance. Septic emboli could have this distribution and should be clinically correlated.. Assessment and Plan (1) Antiphospholipid antibody positive: Status: Acute (2) Septic embolism: Status: Acute (3) Opiate abuse, continuous: Status: Acute (4) Pneumonia: Status: Acute (5) DVT (deep venous thrombosis): Status: Acute 40-year-old female with a past medical history of IV drug abuse, history of antiphospholipid syndrome complicated by CVA, history of multiple DVT/PE status post IVC filter; was on anticoagulation and 2015; anticoagulation was discontinued post menorrhagia in 2014 and reportedly has not had any blood clots since then; hypertension, CKD, hepatitis-C, PTSD, depression, bipolar, history of inpatient psychiatric admissions; recently admitted to the [facility] for MRSA bacteremia/bilateral empyema status post chest tube placement; subsequently chest tube was removed and sent to rehab via to finish antibiotics via Port-A-Cath until 02/13/2021; patient had echocardiogram done which showed no evidence of vegetations, MRI of the lumbar spine with no evidence of epidural abscess at [facility];Patient left AMA from the rehab about 3 weeks ago; has been living at home and using heroin heavily on a daily basis; presented to the hospital today with a chief complaint of chest pains. Noted to have pneumonia/cavitary lung lesions/septic emboli. Admitted for further management. Pneumonia/cavitary lung lesion/septic emboli: Continue IV vancomycin and Zosyn. Currently patient respiratory status is stable. Pulmonary consult Id consult Follow-up cultures Patient had echocardiogram at [facility] in December 2020 which showed normal ejection fraction; normal LV function; normal diastolic function. No evidence of agitation. Port-A-Cath site appears clean. Bacteremia: blood cx drawn on 02/13/21 growing GPC. repeat Echo Left lower extremity DVT: Patient started on Lovenox at therapeutic [facility] discussing with Hematology on-call. Patient has prior history of IVC filter placed. History of antiphospholipid syndrome: Patient had remote history of CVA, mult iple DVTs/PEs status post IVC filter placed; Patient reported that she was discontinued on anticoagulation in 2014 secondary to menorrhagia. And did not have any clots Since then. Opiate abuse: Patient was on methadone at 76 mg until recently but left AMA. Addiction Medicine was consulted and patient was given 20 mg of methadone per recommendations. Monitor on cause protocol. Bradycardia: denies lightheadedness or dizziness; Cardiology consult. History of anxiety/depression/Bipolar: Continue home medications. History of hypertension: Continue home amlodipine Code status: Full code Quality Stroke Does the patient have a stroke diagnosis?: No VTE Prior VTE?: Yes Approximate Date of Prior VTE: 02/13/21 VTE Risk Level:: Medical - moderate - high VTE Device Contraindication: Treatment Not Indicated VTE Drug Contraindication: N/A - Med Ordered
[2021-02-13 20:51] LABS: Amphetamine Screen Urine Not Detected (Not Detect); Barbiturates, Urine Not Detected (Not Detect); Benzodiazepines Screen Urine Not Detected (Not Detect); Cannabinoid Screen Urine Not Detected (Not Detect); Cocaine Screen Urine POSITIVE (Not Detect); Fentanyl, urine POSITIVE (Not Detect); Opiate Screen Urine POSITIVE (Not Detect); Phencyclidine Screen Urine Not Detected (Not Detect)
--- NOTE | 2021-02-13 21:04 | PHA.PROG ---
Admission Date/Time: February 13, 2021 20:41 Indication: Respiratory infection Weight in k.111 kg [place] body weight in K.9 Serum Creatinine - Last 168 Hours 02/13/21 16:11 Creatinine 1.40 Estimated CrCl and GFR - Last 168 Hours 02/13/21 16:11 Estim Creat Clear Calc 57.7 Estimated GFR 41 Vancomycin Loading Dose: Patient previously on vanco. Patient did not know the name of SNF, only that it was in [place], [place]. I contacted all SNF in [place] but they had no record of her. I contact [facility] but they would not send record to pharmacist without consent. Current Vancomycin Dosing Regimen: 1250 mg Q24H Date and Time for next Vancomycin Level to be drawn: 02/15 @ 1600 Pharmacist Comments on Vancomycin Plan: Start vanco 1250 Q24H. Expected AUC 443 with a trough of 12.8 Since patient was reportable on vanco at an SNF will get a trough before third dose. Will continue to monitor SCr daily Vancomycin dosing will take advantage of [facility] as a clinical decision support tool that uses Bayesian modeling to calculate individual patient's pharmacokinetic parameters and forecast the patient's drug concentration time course with the target goal AUC 24 range of 400 - 600 mg/L/hr.
[2021-02-13] MEDS: Enoxaparin Sodium 80 MG/0.8 ML SYRINGE 75 MG SUBCUT (21:22)
[2021-02-13] MEDS: 0.9 % Sodium Chloride 1,000 ML 100 ML IVCONT (21:22)
[2021-02-13 21:26] VITALS: BP 131/77; PULSE 57; RESP 17; O2SAT 98
[2021-02-13] MEDS: Topiramate 100 MG TABLET 200 MG PO (21:32)
[2021-02-13] MEDS: Docusate Sodium 100 MG CAPSULE PO (21:32)
--- NOTE | 2021-02-13 22:23 | PC.NURSE ---
Patient in NAD, breathing even and unlabored. Pending admission bed.
--- NOTE | 2021-02-13 23:01 | PC.NURSE ---
Patient moved to hospital bed. Pending admission bed.
--- NOTE | 2021-02-13 23:12 | MHC.CM.PN ---
CM met with admitted patient, with bed assignment pending. IMM reviewed and signed per protocol 02/13/21@0540. HCP revised per pt request. New HCP/friend Rhys Temo ([phone]) and alternate, Akanksha Butler (aunt) [phone]. Copies given and uploaded into [employer] and [facility]. No PCP, NO DME, No services. Pt recently at [facility] 12/21-01/11 for MRSA bacteremia and empyema s/p chest tubes. D/C to [facility] in [place] on 01/11. Was to continue IV antibiotic therapy with Zaman Port in, but left AMA 3 weeks ago. Pt states they gave her saline and heparin to flush her port. Pt has dorie catheter in place due to hx DVT and antiphosolipid antibody syndrome and lupus. Pt was using methadone 76 mg at [facility], but has not has any since she left [facility]. Tox screen was positive for opiates, fentanyl, and cocaine. Denies IVDA, States she snorts. Started on methadone at [facility]. Pt lives with mother, but is unsure if she can return secondary to drugs. Pt is quite anxious about living situation. Pt drives and has a car. D/C plan is uncertain at this time, pending hospital course and provider recommendations. Transportation is self or friend. CM to follow for d/c needs.
[2021-02-14] VITALS (12 sets, daily range): BP systolic 116–159; BP diastolic 76–98; PULSE 43–72; RESP 15–20; TEMP 36.4–37.2; O2SAT 95–98; BMI 24.6
--- NOTE | 2021-02-14 00:32 | PC.NURSE ---
Pt Port not flushing, notified provider. New order for heparin flush. Antibiotic delayed due to assess.
[2021-02-14] MEDS: Piperacillin Sodium/Tazobactam 3.375 GM in 0.9 % Sodium Chloride 50 ML IV ×5 (00:42→23:34)
--- NOTE | 2021-02-14 00:49 | PC.NURSE ---
pt a&o, denies any sob or chest pain. Pt central line working at this time and antibiotic administered. pt on tell monitored. Call landin in reach.
--- NOTE | 2021-02-14 03:49 | PC.NURSE ---
pt is sleeping, no sign of distress at this time.
--- NOTE | 2021-02-14 05:01 | PC.NURSE ---
pt is sleeping, no sign of distress. Pt on monitor.
[2021-02-14] MEDS: oxyCODONE HCl Immed Release 5 MG TABLET PO ×3 (06:17→19:48)
--- NOTE | 2021-02-14 06:24 | PC.NURSE ---
pt continue to have episodes of heart rate in the low 40's during the night and chest pain. Provider is aware. Will continue to monitor, provider will be consulting cardiology. Pt denies any lightheadedness or dizziness. no n/v.. Pt being on bedside monitor.
[2021-02-14] MEDS: 0.9 % Sodium Chloride 1,000 ML 100 ML IVCONT ×2 (06:34→16:24)
[2021-02-14 06:53] LABS: Hematocrit 30.3 % (37-47); Hemoglobin 9.5 g/dl (12.0-16.0); Mean Corpuscular HGB Conc 31.4 g/dl (31.0-35.0); Mean Corpuscular Hemoglobin 30.8 pg (27.0-33.0); Mean Corpuscular Volume 98.4 fL (80-98); Mean Platelet Volume 12.3 fL (9.4-12.3); Platelet Count 307 X10*3/uL (160-400); Red Blood Count 3.08 X10*6/uL (4.20-5.50); Red Cell Distribution Width 14.6 % (11.0-16.0); White Blood Count 13.4 X10*3/uL (4.8-10.8)
[2021-02-14 07:07] LABS: Anion Gap 12 (12-20); Blood Urea Nitrogen 15 mg/dL (9-16); Calcium 8.6 mg/dL (8.4-10.2); Carbon Dioxide 29 mmol/L (22-29); Chloride 103 mmol/L (96-108); Creatinine Clr Calc Pharmacy 52.1; Estimated Glomerular Filt Rate 37; Glucose Random 102 mg/dL (60-115); Magnesium 1.7 mg/dL (1.6-2.6); Sodium 141 mmol/L (135-145)
--- NOTE | 2021-02-14 07:12 | PC.NURSE ---
Assumed care of patient. Pt is awake, resting comfortably in bed. Pt's antibiotic has finished infusing and still has NS going at 100ml/hr. Pt is eating breakfast and tolerating PO intake. Pt recently medicated for pain and states it is managable at this time. Pt is patiently waiting for bed.
[2021-02-14] MEDS: cloNIDine HCL 0.1 MG TABLET PO (09:05)
[2021-02-14] MEDS: Docusate Sodium 100 MG CAPSULE PO ×2 (09:06→19:48)
[2021-02-14] MEDS: Topiramate 100 MG TABLET 200 MG PO ×2 (09:06→19:48)
[2021-02-14] MEDS: Aspirin 81 MG TAB.CHEW PO (09:06)
--- NOTE | 2021-02-14 09:06 | PM.CNCAR ---
History of Present Illness History of Present Illness Date of Service: 02/14/21 Requesting physician: Angel Luis Whitehead Chief complaint: PNA, Septic emboli, bradycardia Narrative: 40-year-old female who has background history of MSSA bacteremia, opiate abuse, septic emboli to the lung and pneumonia. She also has SLE and antiphospholipid antibodies. She was at [facility] and was transferred to rehab for long-term antibiotics. It appears she left AMA from there and did not finish antibiotics course. She is now presenting with sharp chest pains. Imaging is showing cavitary lesion in the lung with concern for septic emboli. She was also noticed to be bradycardic. She is denying any symptoms. In particular no dizziness or lightheadedness. No history of syncope. Heart Rate is in 40s and she has sinus bradycardia on telemetry. FORMERLY [facility] Past Medical History Medical History (Updated 02/14/21 @ 22:33 by Juan Washington MD) DVT (deep venous thrombosis) Sander filter in place Lupus Pneumonia Pulmonary emboli Surgical History Surgical History History of appendectomy Hx of splenectomy Social History Social History Household Members: None Housing: Homeless Do you presently have visiting nurse or other home services: No Patient Tobacco Use Status: Current someday Tobacco user Tobacco use type: Cigarette Smoked in Last 30 Days: Yes e-Cigarette/Vaping Use: Currently Using Patient Interested in Nicotine Replacement: No Patient Given Instructions on How to Stop Smoking: No Second Hand Smoke Exposure: Yes Use of substances other than those prescribed or required for medical reasons: Yes Substance Use Type: Crack/Cocaine and Opiates Substance Use Frequency: Occasionally Last Used Substance: Days (ago) Currently Displaying Signs/Symptoms of Drug Intoxication Withdrawal: No Any prior treatment program specific to substance use: Yes Have you been hit, kicked, punched, or otherwise hurt by someone within the past year? If so, by whom?: No Do you feel safe in your current relationship?: Yes Is there a partner from a previous relationship who is making you feel unsafe now?: No Are you made to feel afraid or neglected: No Advance Directives: No Advance Directives Information Provided: No Do you have thoughts of harming others: None Do you have a plan to hurt others: No Plan Recently lost weight without trying: No Nutrition Risks: No Nutritional Risk Patient : No service: No Current occupational status: employed Meds Allergies Allergy/AdvReac Type Severity Reaction Status Date / Time bee pollen [BEE STINGS] Allergy Severe Anaphylaxis Verified 02/13/21 14:25 codeine [CODEINE] Allergy Severe ANAPHYLAXIS Verified 02/13/21 14:25 Iodinated Contrast Media Allergy Severe DIFFICULTY Verified 02/13/21 14:25 [IV DYE, IODINE CONTAINING BREATHING CONTRAST ] nut - unspecified [nut] Allergy Intermediate Rash Verified 02/13/21 14:25 shellfish derived Allergy Intermediate Rash Verified 02/13/21 14:25 Sulfa (Sulfonamide Allergy Unknown ANAPHYLAXIS Verified 02/13/21 14:25 Antibiotics) [SULFA (SULFONAMIDE ANTIBIOTICS)] Active Medications: Current Medications Generic Name Dose Route Start Last Admin Trade Name Freq PRN Reason Stop Dose Admin Albuterol/Ipratropium 3 ml 02/13/21 20:38 Albuterol/Iprat 2.5/0.5mg 3 Ml Ampul.Neb INHALE RQ4H PRN Shortness of Breath/Wheezing Amlodipine Besylate 10 mg 02/14/21 09:00 Amlodipine Besylate 10 Mg Tablet PO DAILY SOPHIE Protocol Aspirin 81 mg 02/14/21 09:00 Aspirin 81 Mg Tab.Chew PO DAILY SOPHIE Clonidine HCl 0.1 mg 02/13/21 20:42 Clonidine Hcl 0.1 Mg Tablet PO BID PRN Anxiety Protocol Docusate Sodium 100 mg 02/13/21 21:00 02/13/21 21:32 Docusate Sodium 100 Mg Capsule PO 100 mg BID SOPHIE Administration Enoxaparin Sodium 75 mg 02/14/21 10:00 Enoxaparin Sodium 80 Mg/0.8 Ml Syringe SUBCUT Q12H SOPHIE Sodium Chloride 1,000 mls @ 100 mls/hr 02/13/21 20:45 02/14/21 06:34 Ns IVCONT 100 mls/hr .Q10H SOPHIE Administration Piperacillin Sod/Tazobactam 50 mls @ 100 mls/hr 02/14/21 00:00 02/14/21 07:10 Sod 3.375 gm/ Sodium Chloride IV Infused Q6H SOPHIE Infusion Vancomycin HCl 1,250 mg/ 250 mls @ 166.667 mls/hr 02/14/21 17:00 Sodium Chloride IV Q24H SOPHIE Melatonin 6 mg 02/13/21 20:40 Melatonin 3 Mg Tablet PO BEDTIME PRN Insomnia Ondansetron HCl 4 mg 02/13/21 20:40 Ondansetron Hcl 4 Mg/2 Ml Vial IVPUSH Q8H PRN Nausea and Vomiting Oxycodone HCl 5 mg 02/13/21 20:40 02/14/21 06:17 Oxycodone Hcl Immed Release 5 Mg Tablet PO 5 mg Q6H PRN Administration Pain, Severe (Pain Scale 7-10) Pharmacy Consult 1 each 02/13/21 15:25 Consult Rx Perform Med Rec MISCELLANE ONCE PRN Consult order Pharmacy Consult 1 each 02/13/21 20:40 Consult Rx Vancomycin Dosing MISCELLANE DAILY PRN Consult order Senna 17.2 mg 02/13/21 20:40 Sennosides 8.6 Mg Tablet PO BEDTIME PRN Constipation Sodium Chloride 3 ml 02/14/21 00:00 02/14/21 09:01 0.9 % Sodium Chloride Flush 3 Ml Syringe IVFLUSH Not Given QSHIFT SOPHIE Topiramate 200 mg 02/13/21 21:00 02/13/21 21:32 Topiramate 100 Mg Tablet PO 200 mg BID SOPHIE Administration Home Medications Medication Instructions Recorded Confirmed Last Taken Type albuterol sulfate 90 mcg/actuation 2 puff INHALATION Q6H PRN 02/28/20 02/13/21 Unknown History aerosol inhaler famotidine 20 mg tablet 20 mg PO DAILY 02/28/20 02/13/21 02/13/21 History quetiapine 400 mg tablet (Seroquel) 400 mg PO BEDTIME 02/28/20 02/13/21 02/12/21 History amlodipine 10 mg tablet 10 mg PO DAILY 02/13/21 02/13/21 02/13/21 History aspirin 81 mg chewable tablet 81 mg PO DAILY 02/13/21 02/13/21 02/13/21 History clonidine HCl 0.1 mg tablet 0.1 mg PO BID PRN 02/13/21 02/13/21 Unknown History melatonin 5 mg tablet 5 mg PO BEDTIME PRN 02/13/21 02/13/21 Unknown History sumatriptan succinate 50 mg tablet 50 mg PO Q2H PRN 02/13/21 02/13/21 Unknown History (Imitrex) topiramate 200 mg tablet 200 mg PO BID 02/13/21 02/13/21 02/13/21 History Physical Exam Vital Signs: Vital Signs: Last Vital Signs Temp 99 F 02/13/21 20:07 Pulse 55 02/14/21 07:16 Resp 17 02/14/21 07:16 BP 159/98 H 02/14/21 07:16 Pulse Ox 95 02/14/21 07:16 Body Mass Index 25.8 GENERAL APPEARANCE: in no acute distress, pleasant. NECK: no carotid bruit, no jugular venous distention. SKIN: no suspicious lesions, warm and dry. HEART: no murmurs, Bradycardia LUNGS: clear to auscultation bilaterally. ABDOMEN: soft, nontender. EXTREMITIES: no edema. PERIPHERAL PULSES: equal. NEUROLOGIC: No gross deficits, AAO X 3 Results Labs and Meds Result diagrams: 02/14/21 06:41 02/14/21 06:41 Lab results: Laboratory Results - last 24 hr 02/13/21 02/13/21 02/13/21 16:11 16:11 16:11 WBC 20.9 H RBC 3.23 L Hgb 10.3 L Hct 31.3 L MCV 96.9 MCH 31.9 MCHC 32.9 RDW 14.5 Plt Count 323 MPV 12.2 Immature Gran % (Auto) Cancelled Neut % (Auto) Cancelled Lymph % (Auto) Cancelled [place] % (Auto) Cancelled Eos % (Auto) Cancelled Baso % (Auto) Cancelled Lymph # (Auto) Cancelled [place] # (Auto) Cancelled Eos # (Auto) Cancelled Baso # (Auto) Cancelled Abs Immat Gran (auto) Cancelled Absolute Neuts (auto) Cancelled Absolute Nucleated RBC 0.000 Nucleated RBC % (auto) 0.0 Neutrophils % (Manual) 87 H Band Neutrophils % 2 L Lymphocytes % (Manual) 6 L Monocytes % (Manual) 5 Abs Neuts (Manual) 18.6 H Lymphocytes # (Manual) 1.3 Monocytes # (Manual) 1.0 Toxic Vacuolation PRESENT Platelet Estimate NORMAL Large Platelets PRESENT Plt Morphology Comment NOTED RBC Morphology NOTED Polychromasia 1+ (0-2) Microcytosis 1+ (5-14) Stomatocytes 1+ (5-14) Sartell Cells 1+ (0-2) PT 12.9 INR 1.1 Sodium 138 Potassium 3.4 Chloride 99 Carbon Dioxide 27 Anion Gap 15 BUN 12 Creatinine 1.40 Estim Creat Clear Calc 57.7 Estimated GFR 41 Random Glucose 88 Lactic Acid Calcium 9.0 Magnesium 1.6 Total Bilirubin 0.8 Direct Bilirubin 0.2 AST 17 ALT 6 Alkaline Phosphatase 181 H Total Creatine Kinase Troponin I High Sens B-Natriuretic Peptide Total Protein 7.1 Albumin 3.0 L Urine Color Urine Appearance Urine pH Ur Specific [place] Urine Protein Urine Glucose (UA) Urine Ketones Urine Blood Urine Nitrite Ur Leukocyte Esterase Urine RBC Urine WBC Ur Squamous Epith Cells Urine Bacteria Urine Test Urine Opiates Screen Urine Fentanyl Screen Ur Barbiturates Screen Ur Phencyclidine Scrn Ur Amphetamines Screen U Benzodiazepines Scrn Urine Cocaine Screen U Marijuana (THC) Screen Ethyl Alcohol COVID-19 (ADAM) COVID-19 Clin Com 02/13/21 02/13/21 02/13/21 16:11 16:11 16:11 WBC RBC Hgb Hct MCV MCH MCHC RDW Plt Count MPV Immature Gran % (Auto) Neut % (Auto) Lymph % (Auto) [place] % (Auto) Eos % (Auto) Baso % (Auto) Lymph # (Auto) [place] # (Auto) Eos # (Auto) Baso # (Auto) Abs Immat Gran (auto) Absolute Neuts (auto) Absolute Nucleated RBC Nucleated RBC % (auto) Neutrophils % (Manual) Band Neutrophils % Lymphocytes % (Manual) Monocytes % (Manual) Abs Neuts (Manual) Lymphocytes # (Manual) Monocytes # (Manual) Toxic Vacuolation Platelet Estimate Large Platelets Plt Morphology Comment RBC Morphology Polychromasia Microcytosis Stomatocytes [place] Cells PT INR Sodium Potassium Chloride Carbon Dioxide Anion Gap BUN Creatinine Estim Creat Clear Calc Estimated GFR Random Glucose Lactic Acid 1.0 Calcium Magnesium Total Bilirubin Direct Bilirubin AST ALT Alkaline Phosphatase Total Creatine Kinase 19 L Troponin I High Sens 18.5 H* B-Natriuretic Peptide 115 H Total Protein Albumin Urine Color Urine Appearance Urine pH Ur Specific [place] Urine Protein Urine Glucose (UA) Urine Ketones Urine Blood Urine Nitrite Ur Leukocyte Esterase Urine RBC Urine WBC Ur Squamous Epith Cells Urine Bacteria Urine Test Urine Opiates Screen Urine Fentanyl Screen Ur Barbiturates Screen Ur Phencyclidine Scrn Ur Amphetamines Screen U Benzodiazepines Scrn Urine Cocaine Screen U Marijuana (THC) Screen Ethyl Alcohol COVID-19 (ADAM) COVID-19 Clin Com 02/13/21 02/13/21 02/13/21 16:11 16:21 19:16 WBC RBC Hgb Hct MCV MCH MCHC RDW Plt Count MPV Immature Gran % (Auto) Neut % (Auto) Lymph % (Auto) [place] % (Auto) Eos % (Auto) Baso % (Auto) Lymph # (Auto) [place] # (Auto) Eos # (Auto) Baso # (Auto) Abs Immat Gran (auto) Absolute Neuts (auto) Absolute Nucleated RBC Nucleated RBC % (auto) Neutrophils % (Manual) Band Neutrophils % Lymphocytes % (Manual) Monocytes % (Manual) Abs Neuts (Manual) Lymphocytes # (Manual) Monocytes # (Manual) Toxic Vacuolation Platelet Estimate Large Platelets Plt Morphology Comment RBC Morphology Polychromasia Microcytosis Stomatocytes Annie Cells PT INR Sodium Potassium Chloride Carbon Dioxide Anion Gap BUN Creatinine Estim Creat Clear Calc Estimated GFR Random Glucose Lactic Acid Calcium Magnesium Total Bilirubin Direct Bilirubin AST ALT Alkaline Phosphatase Total Creatine Kinase Troponin I High Sens B-Natriuretic Peptide Total Protein Albumin Urine Color YELLOW Urine Appearance HAZY Urine pH 6.0 Ur Specific [place] 1.025 Urine Protein 2+ H Urine Glucose (UA) NEG Urine Ketones NEG Urine Blood 3+ H Urine Nitrite NEG Ur Leukocyte Esterase NEG Urine RBC 1-4 Urine WBC 0 Ur Squamous Epith Cells 4+ Urine Bacteria 2+ Urine Test Urine Opiates Screen Urine Fentanyl Screen Ur Barbiturates Screen Ur Phencyclidine Scrn Ur Amphetamines Screen U Benzodiazepines Scrn Urine Cocaine Screen U Marijuana (THC) Screen Ethyl Alcohol < 10 COVID-19 (ADAM) Negative COVID-19 Clin Com See Note 02/13/21 02/13/21 02/13/21 19:16 19:16 19:23 WBC RBC Hgb Hct MCV MCH MCHC RDW Plt Count MPV Immature Gran % (Auto) Neut % (Auto) Lymph % (Auto) [place] % (Auto) Eos % (Auto) Baso % (Auto) Lymph # (Auto) [place] # (Auto) Eos # (Auto) Baso # (Auto) Abs Immat Gran (auto) Absolute Neuts (auto) Absolute Nucleated RBC Nucleated RBC % (auto) Neutrophils % (Manual) Band Neutrophils % Lymphocytes % (Manual) Monocytes % (Manual) Abs Neuts (Manual) Lymphocytes # (Manual) Monocytes # (Manual) Toxic Vacuolation Platelet Estimate Large Platelets Plt Morphology Comment RBC Morphology Polychromasia Microcytosis Stomatocytes Sart[place] Cells PT INR Sodium Potassium Chloride Carbon Dioxide Anion Gap BUN Creatinine Estim Creat Clear Calc Estimated GFR Random Glucose Lactic Acid Calcium Magnesium Total Bilirubin Direct Bilirubin AST ALT Alkaline Phosphatase Total Creatine Kinase Troponin I High Sens 17.1 H* B-Natriuretic Peptide Total Protein Albumin Urine Color Urine Appearance Urine pH Ur Specific [place] Urine Protein Urine Glucose (UA) Urine Ketones Urine Blood Urine Nitrite Ur Leukocyte Esterase Urine RBC Urine WBC Ur Squamous Epith Cells Urine Bacteria Urine Test NEGATIVE Urine Opiates Screen POSITIVE H Urine Fentanyl Screen POSITIVE H Ur Barbiturates Screen Not Detected Ur Phencyclidine Scrn Not Detected Ur Amphetamines Screen Not Detected U Benzodiazepines Scrn Not Detected Urine Cocaine Screen POSITIVE H U Marijuana (THC) Screen Not Detected Ethyl Alcohol COVID-19 (ADAM) COVID-19 Clin Com 02/14/21 02/14/21 06:41 06:41 WBC 13.4 H RBC 3.08 L Hgb 9.5 L Hct 30.3 L MCV 98.4 H MCH 30.8 MCHC 31.4 RDW 14.6 Plt Count 307 MPV 12.3 Immature Gran % (Auto) Neut % (Auto) Lymph % (Auto) [place] % (Auto) Eos % (Auto) Baso % (Auto) Lymph # (Auto) [place] # (Auto) Eos # (Auto) Baso # (Auto) Abs Immat Gran (auto) Absolute Neuts (auto) Absolute Nucleated RBC 0.000 Nucleated RBC % (auto) 0.0 Neutrophils % (Manual) Band Neutrophils % Lymphocytes % (Manual) Monocytes % (Manual) Abs Neuts (Manual) Lymphocytes # (Manual) Monocytes # (Manual) Toxic Vacuolation Platelet Estimate Large Platelets Plt Morphology Comment RBC Morphology Polychromasia Microcytosis Stomatocytes Sartell Cells PT INR Sodium 141 Potassium 3.0 L Chloride 103 Carbon Dioxide 29 Anion Gap 12 BUN 15 Creatinine 1.55 H Estim Creat Clear Calc 52.1 Estimated GFR 37 Random Glucose 102 Lactic Acid Calcium 8.6 Magnesium 1.7 Total Bilirubin Direct Bilirubin AST ALT Alkaline Phosphatase Total Creatine Kinase Troponin I High Sens B-Natriuretic Peptide Total Protein Albumin Urine Color Urine Appearance Urine pH Ur Specific [place] Urine Protein Urine Glucose (UA) Urine Ketones Urine Blood Urine Nitrite Ur Leukocyte Esterase Urine RBC Urine WBC Ur Squamous Epith Cells Urine Bacteria Urine Test Urine Opiates Screen Urine Fentanyl Screen Ur Barbiturates Screen Ur Phencyclidine Scrn Ur Amphetamines Screen U Benzodiazepines Scrn Urine Cocaine Screen U Marijuana (THC) Screen Ethyl Alcohol COVID-19 (ADAM) COVID-19 Clin Com Imaging Radiologist's impression: Impressions Chest X-Ray 02/13/21 15:25 IMPRESSION: Patchy opacities in right upper lobe and right lower lobe and scattered opacity left mid lobe likely developing infiltrates. Right Zaman catheter tip is in mid SVC. Venous Duplex 02/13/21 15:26 IMPRESSION: Left: Left popliteal vein DVT. Right: No evidence of DVT. Chest CT 02/13/21 17:10 IMPRESSION: New patchy bilateral airspace disease some which are cavitary. Focal infectious etiology would be strongly favored with this appearance. Septic emboli could have this distribution and should be clinically correlated.. Assessment and Plan (1) Bradycardia: Status: Acute 40-year-old female with sinus bradycardia in 40s. She was previously on clonidine. She was also on Pepcid. Both of these can lead to bradycardia. Also has pain which can affect vagal tone. In any case she is asymptomatic from this right now. Please monitor closely on telemetry. Avoid medications which can cause bradycardia. If she feels good enough then she should be walked to see how her heart rate response to exercise. Currently there is no indication for permanent pacemaker placement. Thank you for allowing me to participate in the care of your patient. Please feel free to contact me if you have any questions. Procedures Date of Service Date of Service: 02/14/21
[2021-02-14] MEDS: amLODIPine Besylate 10 MG TABLET PO (09:07)
[2021-02-14] MEDS: methADONE HCl 20 MG/2 ML ORAL.CONC 30 MG PO (09:21)
--- NOTE | 2021-02-14 09:39 | MHC.RECOVRN ---
T/w met with pt in ED 20 after methadone initiation yesterday (02/13). Pt received 20 mg. Pt states I was supposed to be assessed again last night and I wasn't. Pt currently experiencing withdrawal symptoms including flushed face, pupils moderately dilated, body aches, and nausea. Pt had previously been on methadone, 76 mg, for years. Pt unsure when last dose was, could have been up to a month ago. 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 Pt states I didn't stay very long though. Since self directed dc from SNF, pt reports using heroin, 1-2 bundles daily IN as well as cocaine, IN, depends on how much money I have. Pt reports hx IV use, however, has not used IV since overdose, unknown when overdose occurred. Pt reports growing up in [place], [place] and has now returned to stay in [place]. Pt unsure of which OTP she would like to be linked with. Case discussed with Cecy Espino APRN.
--- NOTE | 2021-02-14 13:11 | P.PNIM_ITS ---
Subjective Subjective Date of Service: 02/14/21 Interval History: Ongoing chest discomfort and dyspnea No headache, neck pain, or back pain. Review of Systems Review of Systems: Yes all other systems are reviewed and are negative Physical Exam Vital Signs: Vital Signs: Last Vital Signs Temp 98.6 F 02/14/21 12:56 Pulse 48 L 02/14/21 12:56 Resp 20 02/14/21 12:56 BP 136/84 02/14/21 12:56 Pulse Ox 96 02/14/21 12:56 Body Mass Index 25.8 Gen: disheveled, chronically ill-appearing HEENT: sclera anicteric, moist mucus membranes Neck: supple, Zaman catheter to right subclavian Lungs: scattered inspiratory crackles Heart: bardycardic,, no murmurs Abd: soft, non-tender, non-distended Ext: 2+ Skin: excoriated Neuro: alert and oriented x3, no focal findings Psych: restricted affect Objective Data Active Medications Albuterol/Ipratropium (Albuterol/Iprat 2.5/0.5mg 3 Ml Ampul.Neb) 3 ml INHALE RQ4H PRN PRN Reason: Shortness of Breath/Wheezing Amlodipine Besylate (Amlodipine Besylate 10 Mg Tablet) 10 mg PO DAILY [facility]; Protocol Last Admin: 02/14/21 09:07 Dose: 10 mg Documented by: SANTIAGO Aspirin (Aspirin 81 Mg Tab.Chew) 81 mg PO DAILY [facility] Last Admin: 02/14/21 09:06 Dose: 81 mg Documented by: SANTIAGO Clonidine HCl (Clonidine Hcl 0.1 Mg Tablet) 0.1 mg PO BID PRN; Protocol PRN Reason: Anxiety Last Admin: 02/14/21 09:05 Dose: 0.1 mg Documented by: SANTIAGO Docusate Sodium (Docusate Sodium 100 Mg Capsule) 100 mg PO BID SOPHIE Last Admin: 02/14/21 09:06 Dose: 100 mg Documented by: SANTIAGO Enoxaparin Sodium (Enoxaparin Sodium 80 Mg/0.8 Ml Syringe) 75 mg SUBCUT Q12H [facility] Last Admin: 02/14/21 11:08 Dose: Not Given Documented by: SANTIAGO Non-Admin Reason: refused Sodium Chloride (Ns) 1,000 mls @ 100 mls/hr IVCONT .Q10H [facility] Last Admin: 02/14/21 06:34 Dose: 100 mls/hr Documented by: MIRI Piperacillin Sod/Tazobactam (Sod 3.375 gm/ Sodium Chloride) 50 mls @ 100 mls/hr IV Q6H [facility] Last Admin: 02/14/21 11:59 Dose: 100 mls/hr Documented by: SANTIAGO Vancomycin HCl 1,250 mg/ (Sodium Chloride) 250 mls @ 166.667 mls/hr IV Q24H [facility] Melatonin (Melatonin 3 Mg Tablet) 6 mg PO BEDTIME PRN PRN Reason: Insomnia Ondansetron HCl (Ondansetron Hcl 4 Mg/2 Ml Vial) 4 mg IVPUSH Q8H PRN PRN Reason: Nausea and Vomiting Oxycodone HCl (Oxycodone Hcl Immed Release 5 Mg Tablet) 5 mg PO Q6H PRN PRN Reason: Pain, Severe (Pain Scale 7-10) Last Admin: 02/14/21 12:00 Dose: 5 mg Documented by: SANTIAGO Pharmacy Consult (Consult Rx Perform Med Rec) 1 each MISCELLANE ONCE PRN PRN Reason: Consult order Pharmacy Consult (Consult Rx Vancomycin Dosing) 1 each MISCELLANE DAILY PRN PRN Reason: Consult order Senna (Sennosides 8.6 Mg Tablet) 17.2 mg PO BEDTIME PRN PRN Reason: Constipation Sodium Chloride (0.9 % Sodium Chloride Flush 3 Ml Syringe) 3 ml IVFLUSH QSHIFT [facility] Last Admin: 02/14/21 09:01 Dose: Not Given Documented by: SANTIAGO Non-Admin Reason: IV Running Topiramate (Topiramate 100 Mg Tablet) 200 mg PO BID [facility] Last Admin: 02/14/21 09:06 Dose: 200 mg Documented by: SANTIAGO Labs CBC & Chem 7: 02/14/21 06:41 02/14/21 06:41 Labs: Laboratory Results - last 24 hr 02/13/21 02/13/21 02/13/21 16:11 16:11 16:11 MCV 96.9 MCH 31.9 MCHC 32.9 RDW 14.5 Plt Count 323 MPV 12.2 Immature Gran % (Auto) Cancelled Neut % (Auto) Cancelled Lymph % (Auto) Cancelled [place]dwell % (Auto) Cancelled Eos % (Auto) Cancelled Baso % (Auto) Cancelled Lymph # (Auto) Cancelled [place]dwell # (Auto) Cancelled Eos # (Auto) Cancelled Baso # (Auto) Cancelled Abs Immat Gran (auto) Cancelled Absolute Neuts (auto) Cancelled Absolute Nucleated RBC 0.000 Nucleated RBC % (auto) 0.0 Neutrophils % (Manual) 87 H Band Neutrophils % 2 L Lymphocytes % (Manual) 6 L Monocytes % (Manual) 5 Abs Neuts (Manual) 18.6 H Lymphocytes # (Manual) 1.3 Monocytes # (Manual) 1.0 Toxic Vacuolation PRESENT Platelet Estimate NORMAL Large Platelets PRESENT Plt Morphology Comment NOTED RBC Morphology NOTED Polychromasia 1+ (0-2) Microcytosis 1+ (5-14) Stomatocytes 1+ (5-14) Thicket Cells 1+ (0-2) PT 12.9 INR 1.1 Anion Gap 15 Estim Creat Clear Calc 57.7 Estimated GFR 41 Random Glucose 88 Lactic Acid Calcium 9.0 Magnesium 1.6 Total Bilirubin 0.8 Direct Bilirubin 0.2 AST 17 ALT 6 Alkaline Phosphatase 181 H Total Creatine Kinase Troponin I High Sens B-Natriuretic Peptide Total Protein 7.1 Albumin 3.0 L Urine Color Urine Appearance Urine pH Ur Specific [place] Urine Protein Urine Glucose (UA) Urine Ketones Urine Blood Urine Nitrite Ur Leukocyte Esterase Urine RBC Urine WBC Ur Squamous Epith Cells Urine Bacteria Urine Test Urine Opiates Screen Urine Fentanyl Screen Ur Barbiturates Screen Ur Phencyclidine Scrn Ur Amphetamines Screen U Benzodiazepines Scrn Urine Cocaine Screen U Marijuana (THC) Screen Ethyl Alcohol COVID-19 (ADAM) COVID-19 Clin Com 02/13/21 02/13/21 02/13/21 16:11 16:11 16:11 MCV MCH MCHC RDW Plt Count MPV Immature Gran % (Auto) Neut % (Auto) Lymph % (Auto) Caldwell % (Auto) Eos % (Auto) Baso % (Auto) Lymph # (Auto) [place]dwell # (Auto) Eos # (Auto) Baso # (Auto) Abs Immat Gran (auto) Absolute Neuts (auto) Absolute Nucleated RBC Nucleated RBC % (auto) Neutrophils % (Manual) Band Neutrophils % Lymphocytes % (Manual) Monocytes % (Manual) Abs Neuts (Manual) Lymphocytes # (Manual) Monocytes # (Manual) Toxic Vacuolation Platelet Estimate Large Platelets Plt Morphology Comment RBC Morphology Polychromasia Microcytosis Stomatocytes Annie Cells PT INR Anion Gap Estim Creat Clear Calc Estimated GFR Random Glucose Lactic Acid 1.0 Calcium Magnesium Total Bilirubin Direct Bilirubin AST ALT Alkaline Phosphatase Total Creatine Kinase 19 L Troponin I High Sens 18.5 H* B-Natriuretic Peptide 115 H Total Protein Albumin Urine Color Urine Appearance Urine pH Ur Specific [place] Urine Protein Urine Glucose (UA) Urine Ketones Urine Blood Urine Nitrite Ur Leukocyte Esterase Urine RBC Urine WBC Ur Squamous Epith Cells Urine Bacteria Urine Test Urine Opiates Screen Urine Fentanyl Screen Ur Barbiturates Screen Ur Phencyclidine Scrn Ur Amphetamines Screen U Benzodiazepines Scrn Urine Cocaine Screen U Marijuana (THC) Screen Ethyl Alcohol COVID-19 (ADAM) COVID-19 [employer] Com 02/13/21 02/13/21 02/13/21 16:11 16:21 19:16 MCV MCH MCHC RDW Plt Count MPV Immature Gran % (Auto) Neut % (Auto) Lymph % (Auto) Caldwell % (Auto) Eos % (Auto) Baso % (Auto) Lymph # (Auto) [place]dwell # (Auto) Eos # (Auto) Baso # (Auto) Abs Immat Gran (auto) Absolute Neuts (auto) Absolute Nucleated RBC Nucleated RBC % (auto) Neutrophils % (Manual) Band Neutrophils % Lymphocytes % (Manual) Monocytes % (Manual) Abs Neuts (Manual) Lymphocytes # (Manual) Monocytes # (Manual) Toxic Vacuolation Platelet Estimate Large Platelets Plt Morphology Comment RBC Morphology Polychromasia Microcytosis Stomatocytes Annie Cells PT INR Anion Gap Estim Creat Clear Calc Estimated GFR Random Glucose Lactic Acid Calcium Magnesium Total Bilirubin Direct Bilirubin AST ALT Alkaline Phosphatase Total Creatine Kinase Troponin I High Sens B-Natriuretic Peptide Total Protein Albumin Urine Color YELLOW Urine Appearance HAZY Urine pH 6.0 Ur Specific [place] 1.025 Urine Protein 2+ H Urine Glucose (UA) NEG Urine Ketones NEG Urine Blood 3+ H Urine Nitrite NEG Ur Leukocyte Esterase NEG Urine RBC 1-4 Urine WBC 0 Ur Squamous Epith Cells 4+ Urine Bacteria 2+ Urine Test Urine Opiates Screen Urine Fentanyl Screen Ur Barbiturates Screen Ur Phencyclidine Scrn Ur Amphetamines Screen U Benzodiazepines Scrn Urine Cocaine Screen U Marijuana (THC) Screen Ethyl Alcohol < 10 COVID-19 (ADAM) Negative COVID-19 Clin Com See Note 02/13/21 02/13/21 02/13/21 19:16 19:16 19:23 MCV MCH MCHC RDW Plt Count MPV Immature Gran % (Auto) Neut % (Auto) Lymph % (Auto) [place]dwell % (Auto) Eos % (Auto) Baso % (Auto) Lymph # (Auto) [place]dwell # (Auto) Eos # (Auto) Baso # (Auto) Abs Immat Gran (auto) Absolute Neuts (auto) Absolute Nucleated RBC Nucleated RBC % (auto) Neutrophils % (Manual) Band Neutrophils % Lymphocytes % (Manual) Monocytes % (Manual) Abs Neuts (Manual) Lymphocytes # (Manual) Monocytes # (Manual) Toxic Vacuolation Platelet Estimate Large Platelets Plt Morphology Comment RBC Morphology Polychromasia Microcytosis Stomatocytes Thicket Cells PT INR Anion Gap Estim Creat Clear Calc Estimated GFR Random Glucose Lactic Acid Calcium Magnesium Total Bilirubin Direct Bilirubin AST ALT Alkaline Phosphatase Total Creatine Kinase Troponin I High Sens 17.1 H* B-Natriuretic Peptide Total Protein Albumin Urine Color Urine Appearance Urine pH Ur Specific [place] Urine Protein Urine Glucose (UA) Urine Ketones Urine Blood Urine Nitrite Ur Leukocyte Esterase Urine RBC Urine WBC Ur Squamous Epith Cells Urine Bacteria Urine Test NEGATIVE Urine Opiates Screen POSITIVE H Urine Fentanyl Screen POSITIVE H Ur Barbiturates Screen Not Detected Ur Phencyclidine Scrn Not Detected Ur Amphetamines Screen Not Detected U Benzodiazepines Scrn Not Detected Urine Cocaine Screen POSITIVE H U Marijuana (THC) Screen Not Detected Ethyl Alcohol COVID-19 (ADAM) COVID-19 Clin Com 02/14/21 02/14/21 06:41 06:41 MCV 98.4 H MCH 30.8 MCHC 31.4 RDW 14.6 Plt Count 307 MPV 12.3 Immature Gran % (Auto) Neut % (Auto) Lymph % (Auto) [place]dwell % (Auto) Eos % (Auto) Baso % (Auto) Lymph # (Auto) [place] # (Auto) Eos # (Auto) Baso # (Auto) Abs Immat Gran (auto) Absolute Neuts (auto) Absolute Nucleated RBC 0.000 Nucleated RBC % (auto) 0.0 Neutrophils % (Manual) Band Neutrophils % Lymphocytes % (Manual) Monocytes % (Manual) Abs Neuts (Manual) Lymphocytes # (Manual) Monocytes # (Manual) Toxic Vacuolation Platelet Estimate Large Platelets Plt Morphology Comment RBC Morphology Polychromasia Microcytosis Stomatocytes Annei Cells PT INR Anion Gap 12 Estim Creat Clear Calc 52.1 Estimated GFR 37 Random Glucose 102 Lactic Acid Calcium 8.6 Magnesium 1.7 Total Bilirubin Direct Bilirubin AST ALT Alkaline Phosphatase Total Creatine Kinase Troponin I High Sens B-Natriuretic Peptide Total Protein Albumin Urine Color Urine Appearance Urine pH Ur Specific [place] Urine Protein Urine Glucose (UA) Urine Ketones Urine Blood Urine Nitrite Ur Leukocyte Esterase Urine RBC Urine WBC Ur Squamous Epith Cells Urine Bacteria Urine Test Urine Opiates Screen Urine Fentanyl Screen Ur Barbiturates Screen Ur Phencyclidine Scrn Ur Amphetamines Screen U Benzodiazepines Scrn Urine Cocaine Screen U Marijuana (THC) Screen Ethyl Alcohol COVID-19 (ADAM) COVID-19 Clin Com Microbiology Microbiology Results: Microbiology 02/13/21 16:11 Blood Culture - Preliminary Blood - Venous Prelim: GPC Gram Stain only Assessment and Plan (1) Septic embolism: Status: Acute (2) DVT (deep venous thrombosis): Status: Acute (3) Antiphospholipid antibody positive: Status: Acute (4) MRSA bacteremia: Status: Acute Assessment and Plan: hospital d#2 40yo F with IDU, APLAS complicated by CVA and multiple DVT/PE [s/p IVC filter, off anticoagulation since episode of menorrhagia in 2014], HTN, CKD, HCV, bipol ar depression, PTSD recently admitted to [facility] 12/21/20 for MRSA bacteremia complicated by hypoxia requ iring transfer to MICU, hospitalization complicated by bilateral empyema s/p bilateral chest tube placement, [place] [facility] [place] but did not require VATS discharged to rehab for IV ABX with planned end date of 02/13/21 but left AMA 3wk prematurely and has been abusing heroin [place] [facility] [place], found to be septic with septic pulmonary emboli, left popliteal DVT, and GPC bacteremia # sepsis # bacteremia, likely MRSA - follow peripheral BCx and check surveillance BCx 02/16/21 - draw another BCx from the Zaman, which may need to be removed and tip cultured - TTE to r/o endocarditis [place] [facility] [facility] [place] - continue vancomycin + pip/zackary [d/c pip/zackary if grows MRSA] - ID consult pending # LLE DVT # APLAS - LMWH 1 mg/kg q12h, hematology consult, eventual transition to warfarin # opioid use disorder - methadone, Addiction Medicine consult - screen HCV + HIV # troponin elevation - flat, likely due to sepsis # hypoK - replete, recheck in AM # HTN - continue amlodipine # CKD3 - SCr stable, monitor # mood disorder - continue topiramate, clonidine; consult psychiatry # dispo - will need STR for long-term IV ABX Quality Stroke Does the patient have a stroke diagnosis?: No VTE Prior VTE?: Yes Approximate Date of Prior VTE: 02/13/21 VTE Risk Level:: Medical - moderate - high VTE Device Contraindication: Treatment Not Indicated VTE Drug Contraindication: N/A - Med Ordered
[2021-02-14] MEDS: methADONE HCl 20 MG/2 ML ORAL.CONC 10 MG PO (15:07)
[2021-02-14] MEDS: Potassium Chloride ER 20 MEQ TAB.ER.PRT PO (15:07)
[2021-02-14] MEDS: vancomycin HCL 1,250 MG in 0.9 % Sodium Chloride 250 ML 166.67 MG IV (16:12)
--- NOTE | 2021-02-14 17:25 | PM.PSYCN ---
History of Present Illness Date of Service: 02/14/21 Chief Complaint: PNA, Septic emboli, bradycardia Reason for Consult: PTSD, bipolar disorder, medications. Requesting physician: Wilder Sibley Discussed with referring provider: Yes Sources of Information: patient interviewed and chart reviewed Additional Sources of Information: [facility] Discharge summary dated 01/11/21 HPI Narrative: Patient is a 40-year-old female, with a long psychiatric history including multiple inpatient level of care stays. She had recently been admitted to [facility] with dx of MRSA, empyema, from 01/04/2021 through 01/11/2021. At that time she had been discharged to [facility] located in [place], [place]. However at some point she left approximately 3 weeks ago AMA, and had relapsed regarding substance use. She does state however that she had bottles of all of her medications from her outpatient provider, and has continued to take her psychiatric medications consistently. We reviewed her med list from discharge summary from [facility], which she reports is correct. She states that right now her mood is ?okay, a little depressed, but okay . She states that she consistently takes her psychiatric meds due to a history of rapid decompensation when not on them. She is requesting meds be restored as quickly as possible to help prevent decompensation psychiatrically. At this time she denies any type of SI, HI, AH, VH. She reports that she currently feels safe. She reports she does not feel any type of need for inpatient level of psychiatric care at this time. Past Psychiatric History: Extensive psychiatric and substance use disorder history. psych Diagnoses include PTSD, bipolar disorder. Medical Evaluation Reviewed: Yes Personal & Social History: Patient currently working with Recovery Service regarding wish to enter a TSS when medically cleared. Review of Systems Review of Systems A full review of systems was completed and was negative with the exception of pertinent positives noted in history of the presenting illness (HPI). [facility] Medical History (Updated 02/15/21 @ 14:00 by Liseth Bravo) DVT (deep venous thrombosis) Sander filter in place Lupus Pneumonia Pulmonary emboli Surgical History History of appendectomy Hx of splenectomy Diagnostics Vital Signs (24Hr): Vital Signs - 24 hr 02/13/21 17:54 02/13/21 18:00 02/13/21 20:07 Temperature 99 F 99 F Pulse Rate 58 52 58 Respiratory Rate 16 12 18 Blood Pressure 159/89 H 167/90 H 149/105 H Pulse Oximetry 98 96 94 02/13/21 21:26 02/14/21 00:53 02/14/21 03:09 Temperature Pulse Rate 57 45 L 53 Respiratory Rate 17 15 18 Blood Pressure 131/77 146/78 H 122/81 Pulse Oximetry 98 95 95 02/14/21 07:10 02/14/21 07:16 02/14/21 09:05 Temperature Pulse Rate 72 55 Respiratory Rate 18 17 Blood Pressure 150/98 H 159/98 H 153/93 H Pulse Oximetry 97 95 02/14/21 09:07 02/14/21 12:02 02/14/21 12:56 Temperature 98.6 F Pulse Rate 64 46 L 48 L Respiratory Rate 20 Blood Pressure 153/93 H 116/76 136/84 Pulse Oximetry 97 96 02/14/21 15:53 Temperature 97.6 F Pulse Rate 52 Respiratory Rate 18 Blood Pressure 156/86 H Pulse Oximetry 98 Body Mass Index 24.6 Labs Results: 02/15/21 08:01 02/15/21 08:01 Labs: Laboratory Results - last 48 hr 02/13/21 02/13/21 02/13/21 16:11 16:11 16:11 WBC 20.9 H RBC 3.23 L Hgb 10.3 L Hct 31.3 L MCV 96.9 MCH 31.9 MCHC 32.9 RDW 14.5 Plt Count 323 MPV 12.2 Immature Gran % (Auto) Cancelled Neut % (Auto) Cancelled Lymph % (Auto) Cancelled Falls % (Auto) Cancelled Eos % (Auto) Cancelled Baso % (Auto) Cancelled Lymph # (Auto) Cancelled Falls # (Auto) Cancelled Eos # (Auto) Cancelled Baso # (Auto) Cancelled Abs Immat Gran (auto) Cancelled Absolute Neuts (auto) Cancelled Absolute Nucleated RBC 0.000 Nucleated RBC % (auto) 0.0 Neutrophils % (Manual) 87 H Band Neutrophils % 2 L Lymphocytes % (Manual) 6 L Monocytes % (Manual) 5 Abs Neuts (Manual) 18.6 H Lymphocytes # (Manual) 1.3 Monocytes # (Manual) 1.0 Toxic Vacuolation PRESENT Platelet Estimate NORMAL Large Platelets PRESENT Plt Morphology Comment NOTED RBC Morphology NOTED Polychromasia 1+ (0-2) Microcytosis 1+ (5-14) Stomatocytes 1+ (5-14) Annie Cells 1+ (0-2) PT 12.9 INR 1.1 Sodium 138 Potassium 3.4 Chloride 99 Carbon Dioxide 27 Anion Gap 15 BUN 12 Creatinine 1.40 Estim Creat Clear Calc 57.7 Estimated GFR 41 Random Glucose 88 Lactic Acid Calcium 9.0 Magnesium 1.6 Total Bilirubin 0.8 Direct Bilirubin 0.2 AST 17 ALT 6 Alkaline Phosphatase 181 H Total Creatine Kinase Troponin I High Sens B-Natriuretic Peptide Total Protein 7.1 Albumin 3.0 L Urine Color Urine Appearance Urine pH Ur Specific [place] Urine Protein Urine Glucose (UA) Urine Ketones Urine Blood Urine Nitrite Ur Leukocyte Esterase Urine RBC Urine WBC Ur Squamous Epith Cells Urine Bacteria Urine Test Urine Opiates Screen Urine Fentanyl Screen Ur Barbiturates Screen Ur Phencyclidine Scrn Ur Amphetamines Screen U Benzodiazepines Scrn Urine Cocaine Screen U Marijuana (THC) Screen Ethyl Alcohol COVID-19 (ADAM) COVID-19 Clin Com 02/13/21 02/13/21 02/13/21 16:11 16:11 16:11 WBC RBC Hgb Hct MCV MCH MCHC RDW Plt Count MPV Immature Gran % (Auto) Neut % (Auto) Lymph % (Auto) Falls % (Auto) Eos % (Auto) Baso % (Auto) Lymph # (Auto) Falls # (Auto) Eos # (Auto) Baso # (Auto) Abs Immat Gran (auto) Absolute Neuts (auto) Absolute Nucleated RBC Nucleated RBC % (auto) Neutrophils % (Manual) Band Neutrophils % Lymphocytes % (Manual) Monocytes % (Manual) Abs Neuts (Manual) Lymphocytes # (Manual) Monocytes # (Manual) Toxic Vacuolation Platelet Estimate Large Platelets Plt Morphology Comment RBC Morphology Polychromasia Microcytosis Stomatocytes [place] Cells PT INR Sodium Potassium Chloride Carbon Dioxide Anion Gap BUN Creatinine Estim Creat Clear Calc Estimated GFR Random Glucose Lactic Acid 1.0 Calcium Magnesium Total Bilirubin Direct Bilirubin AST ALT Alkaline Phosphatase Total Creatine Kinase 19 L Troponin I High Sens 18.5 H* B-Natriuretic Peptide 115 H Total Protein Albumin Urine Color Urine Appearance Urine pH Ur Specific [place] Urine Protein Urine Glucose (UA) Urine Ketones Urine Blood Urine Nitrite Ur Leukocyte Esterase Urine RBC Urine WBC Ur Squamous Epith Cells Urine Bacteria Urine Test Urine Opiates Screen Urine Fentanyl Screen Ur Barbiturates Screen Ur Phencyclidine Scrn Ur Amphetamines Screen U Benzodiazepines Scrn Urine Cocaine Screen U Marijuana (THC) Screen Ethyl Alcohol COVID-19 (ADAM) COVID-19 Clin Com 02/13/21 02/13/21 02/13/21 16:11 16:21 19:16 WBC RBC Hgb Hct MCV MCH MCHC RDW Plt Count MPV Immature Gran % (Auto) Neut % (Auto) Lymph % (Auto) Falls % (Auto) Eos % (Auto) Baso % (Auto) Lymph # (Auto) Falls # (Auto) Eos # (Auto) Baso # (Auto) Abs Immat Gran (auto) Absolute Neuts (auto) Absolute Nucleated RBC Nucleated RBC % (auto) Neutrophils % (Manual) Band Neutrophils % Lymphocytes % (Manual) Monocytes % (Manual) Abs Neuts (Manual) Lymphocytes # (Manual) Monocytes # (Manual) Toxic Vacuolation Platelet Estimate Large Platelets Plt Morphology Comment RBC Morphology Polychromasia Microcytosis Stomatocytes Annie Cells PT INR Sodium Potassium Chloride Carbon Dioxide Anion Gap BUN Creatinine Estim Creat Clear Calc Estimated GFR Random Glucose Lactic Acid Calcium Magnesium Total Bilirubin Direct Bilirubin AST ALT Alkaline Phosphatase Total Creatine Kinase Troponin I High Sens B-Natriuretic Peptide Total Protein Albumin Urine Color YELLOW Urine Appearance HAZY Urine pH 6.0 Ur Specific [place] 1.025 Urine Protein 2+ H Urine Glucose (UA) NEG Urine Ketones NEG Urine Blood 3+ H Urine Nitrite NEG Ur Leukocyte Esterase NEG Urine RBC 1-4 Urine WBC 0 Ur Squamous Epith Cells 4+ Urine Bacteria 2+ Urine Test Urine Opiates Screen Urine Fentanyl Screen Ur Barbiturates Screen Ur Phencyclidine Scrn Ur Amphetamines Screen U Benzodiazepines Scrn Urine Cocaine Screen U Marijuana (THC) Screen Ethyl Alcohol < 10 COVID-19 (ADAM) Negative COVID-19 Clin Com See Note 02/13/21 02/13/21 02/13/21 19:16 19:16 19:23 WBC RBC Hgb Hct MCV MCH MCHC RDW Plt Count MPV Immature Gran % (Auto) Neut % (Auto) Lymph % (Auto) Falls % (Auto) Eos % (Auto) Baso % (Auto) Lymph # (Auto) Falls # (Auto) Eos # (Auto) Baso # (Auto) Abs Immat Gran (auto) Absolute Neuts (auto) Absolute Nucleated RBC Nucleated RBC % (auto) Neutrophils % (Manual) Band Neutrophils % Lymphocytes % (Manual) Monocytes % (Manual) Abs Neuts (Manual) Lymphocytes # (Manual) Monocytes # (Manual) Toxic Vacuolation Platelet Estimate Large Platelets Plt Morphology Comment RBC Morphology Polychromasia Microcytosis Stomatocytes Annie Cells PT INR Sodium Potassium Chloride Carbon Dioxide Anion Gap BUN Creatinine Estim Creat Clear Calc Estimated GFR Random Glucose Lactic Acid Calcium Magnesium Total Bilirubin Direct Bilirubin AST ALT Alkaline Phosphatase Total Creatine Kinase Troponin I High Sens 17.1 H* B-Natriuretic Peptide Total Protein Albumin Urine Color Urine Appearance Urine pH Ur Specific [place] Urine Protein Urine Glucose (UA) Urine Ketones Urine Blood Urine Nitrite Ur Leukocyte Esterase Urine RBC Urine WBC Ur Squamous Epith Cells Urine Bacteria Urine Test NEGATIVE Urine Opiates Screen POSITIVE H Urine Fentanyl Screen POSITIVE H Ur Barbiturates Screen Not Detected Ur Phencyclidine Scrn Not Detected Ur Amphetamines Screen Not Detected U Benzodiazepines Scrn Not Detected Urine Cocaine Screen POSITIVE H U Marijuana (THC) Screen Not Detected Ethyl Alcohol COVID-19 (ADAM) COVID-19 Clin Com 02/14/21 02/14/21 06:41 06:41 WBC 13.4 H RBC 3.08 L Hgb 9.5 L Hct 30.3 L MCV 98.4 H MCH 30.8 MCHC 31.4 RDW 14.6 Plt Count 307 MPV 12.3 Immature Gran % (Auto) Neut % (Auto) Lymph % (Auto) Falls % (Auto) Eos % (Auto) Baso % (Auto) Lymph # (Auto) Falls # (Auto) Eos # (Auto) Baso # (Auto) Abs Immat Gran (auto) Absolute Neuts (auto) Absolute Nucleated RBC 0.000 Nucleated RBC % (auto) 0.0 Neutrophils % (Manual) Band Neutrophils % Lymphocytes % (Manual) Monocytes % (Manual) Abs Neuts (Manual) Lymphocytes # (Manual) Monocytes # (Manual) Toxic Vacuolation Platelet Estimate Large Platelets Plt Morphology Comment RBC Morphology Polychromasia Microcytosis Stomatocytes [place] Cells PT INR Sodium 141 Potassium 3.0 L Chloride 103 Carbon Dioxide 29 Anion Gap 12 BUN 15 Creatinine 1.55 H Estim Creat Clear Calc 52.1 Estimated GFR 37 Random Glucose 102 Lactic Acid Calcium 8.6 Magnesium 1.7 Total Bilirubin Direct Bilirubin AST ALT Alkaline Phosphatase Total Creatine Kinase Troponin I High Sens B-Natriuretic Peptide Total Protein Albumin Urine Color Urine Appearance Urine pH Ur Specific [place] Urine Protein Urine Glucose (UA) Urine Ketones Urine Blood Urine Nitrite Ur Leukocyte Esterase Urine RBC Urine WBC Ur Squamous Epith Cells Urine Bacteria Urine Test Urine Opiates Screen Urine Fentanyl Screen Ur Barbiturates Screen Ur Phencyclidine Scrn Ur Amphetamines Screen U Benzodiazepines Scrn Urine Cocaine Screen U Marijuana (THC) Screen Ethyl Alcohol COVID-19 (ADAM) COVID-19 Clin Com EKG EKG: reviewed EKG Comment: QTC wnl Imaging Radiology Impressions: ITS Impressions Chest X-Ray 02/13/21 15:25 IMPRESSION: Patchy opacities in right upper lobe and right lower lobe and scattered opacity left mid lobe likely developing infiltrates. Right Zaman catheter tip is in mid SVC. Venous Duplex 02/13/21 15:26 IMPRESSION: Left: Left popliteal vein DVT. Right: No evidence of DVT. Chest CT 02/13/21 17:10 IMPRESSION: New patchy bilateral airspace disease some which are cavitary. Focal infectious etiology would be strongly favored with this appearance. Septic emboli could have this distribution and should be clinically correlated.. Mental Status Exam Mental Status Exam Narrative: Well-nourished, well-developed female, in NAD. Resting comfortably in bed, wearing hospital garb. Alert and oriented x4, appropriately groomed. Patient was awake and alert, appropriate and cooperative. Speech clear, normal rate and rhythm. Mood described as feeling okay, with some depression present. Affect depressed, certain degree of anxiety present. Thought process and associations were linear, goal directed. Thought content was normal, future oriented. No evidence of any type of delusions noted. Patient denies any type of hallucinations, and none noted. Patient denies any type of SI or HI at this time. Patient appears to be reliable historian. Judgment and insight appear fair to good at this time. Ambulation not observed. Medications Medications Current Medications Generic Name Dose Route Start Last Admin Trade Name Freq PRN Reason Stop Dose Admin Albuterol/Ipratropium 3 ml 02/13/21 20:38 Albuterol/Iprat 2.5/0.5mg 3 Ml Ampul.Neb INHALE RQ4H PRN Shortness of Breath/Wheezing Amlodipine Besylate 10 mg 02/14/21 09:00 02/14/21 09:07 Amlodipine Besylate 10 Mg Tablet PO 10 mg DAILY SOPHIE Administration Protocol Aspirin 81 mg 02/14/21 09:00 02/14/21 09:06 Aspirin 81 Mg Tab.Chew PO 81 mg DAILY SOPHIE Administration Clonidine HCl 0.1 mg 02/13/21 20:42 02/14/21 09:05 Clonidine Hcl 0.1 Mg Tablet PO 0.1 mg BID PRN Administration Anxiety Protocol Docusate Sodium 100 mg 02/13/21 21:00 02/14/21 09:06 Docusate Sodium 100 Mg Capsule PO 100 mg BID SOPHIE Administration Enoxaparin Sodium 75 mg 02/14/21 10:00 02/14/21 11:08 Enoxaparin Sodium 80 Mg/0.8 Ml Syringe SUBCUT Not Given Q12H SOPHIE Sodium Chloride 1,000 mls @ 100 mls/hr 02/13/21 20:45 02/14/21 16:24 Ns IVCONT 100 mls/hr .Q10H SOPHIE Administration Piperacillin Sod/Tazobactam 50 mls @ 100 mls/hr 02/14/21 00:00 02/14/21 14:50 Sod 3.375 gm/ Sodium Chloride IV Infused Q6H SOPHIE Infusion Vancomycin HCl 1,250 mg/ 250 mls @ 166.667 mls/hr 02/14/21 17:00 02/14/21 16:12 Sodium Chloride IV 166.67 mls/hr Q24H SOPHIE Administration Melatonin 6 mg 02/13/21 20:40 Melatonin 3 Mg Tablet PO BEDTIME PRN Insomnia Methadone HCl 40 mg 02/15/21 09:00 Methadone Hcl 20 Mg/2 Ml Oral.Conc PO DAILY SOPHIE Ondansetron HCl 4 mg 02/13/21 20:40 Ondansetron Hcl 4 Mg/2 Ml Vial IVPUSH Q8H PRN Nausea and Vomiting Oxycodone HCl 5 mg 02/13/21 20:40 02/14/21 12:00 Oxycodone Hcl Immed Release 5 Mg Tablet PO 5 mg Q6H PRN Administration Pain, Severe (Pain Scale 7-10) Pharmacy Consult 1 each 02/13/21 15:25 Consult Rx Perform Med Rec MISCELLANE ONCE PRN Consult order Pharmacy Consult 1 each 02/13/21 20:40 Consult Rx Vancomycin Dosing MISCELLANE DAILY PRN Consult order Senna 17.2 mg 02/13/21 20:40 Sennosides 8.6 Mg Tablet PO BEDTIME PRN Constipation Sodium Chloride 3 ml 02/14/21 00:00 02/14/21 16:12 0.9 % Sodium Chloride Flush 3 Ml Syringe IVFLUSH Not Given QSHIFT SOPHIE Sumatriptan Succinate 50 mg 02/14/21 13:46 Sumatriptan Succinate 50 Mg Tablet PO Q2H PRN Migraine Headache Topiramate 200 mg 02/13/21 21:00 02/14/21 09:06 Topiramate 100 Mg Tablet PO 200 mg BID SOPHIE Administration Allergies Allergies Allergy/AdvReac Type Severity Reaction Status Date / Time bee pollen [BEE STINGS] Allergy Severe Anaphylaxis Verified 02/13/21 14:25 codeine [CODEINE] Allergy Severe ANAPHYLAXIS Verified 02/13/21 14:25 Iodinated Contrast Media Allergy Severe DIFFICULTY Verified 02/13/21 14:25 [IV DYE, IODINE CONTAINING BREATHING CONTRAST ] nut - unspecified [nut] Allergy Intermediate Rash Verified 02/13/21 14:25 shellfish derived Allergy Intermediate Rash Verified 02/13/21 14:25 Sulfa (Sulfonamide Allergy Unknown ANAPHYLAXIS Verified 02/13/21 14:25 Antibiotics) [SULFA (SULFONAMIDE ANTIBIOTICS)] Assessment & Plan Assessment & Plan (1) Bipolar disorder: Status: Acute Code(s): F31.9 - Bipolar disorder, unspecified Assessment and Plan: Patient currently prescribed Abilify, gabapentin, quetiapine, Topamax. Reports that medications manage her bipolar symptoms well, requesting to be restarted on her home medication regimen. Patient reports the Topamax is actually to help prevent headaches, not so much for bipolar disorder. (2) PTSD (post-traumatic stress disorder): Status: Acute Code(s): F43.10 - Post-traumatic stress disorder, unspecified Assessment and Plan: Patient currently takes both gabapentin for anxiety, also takes prazosin for PTSD related nightmares, with good effect. She takes clonidine tid, with positive effect. Assessment and Plan: Psychiatric meds ordered as per her discharge summary from [facility] dated 01/11/2021, as follows: Abilify 7.5 mg daily. Clonidine 0.1 mg t.i.d.. Gabapentin 200 mg t.i.d.. Prazosin 3 mg at bedtime daily. Seroquel 400 mg daily at bedtime. Topamax 200 mg b.i.d. daily. Recommend obtaining EKG every several days while patient is here, in order to monitor QTC. This is related to methadone dose titration, as well as several antipsychotics in use. I have shared my thoughts and recommendations with Dr. Wilder Sibley, via secure electronic message in system. Thank you for this consultation. If you have any further questions or concerns, please do not hesitate to contact Psychiatry Service. Greater than 50% of the session was spent on counseling and/or coordination of care Patient educated on: diagnosis, medication risk/benefits, substance abuse and therapeutic strategies Informed Consent: understands
[2021-02-14] MEDS: QUEtiapine Fumarate 100 MG TABLET PO (20:55)
[2021-02-14] MEDS: Enoxaparin Sodium 80 MG/0.8 ML SYRINGE 75 MG SUBCUT (20:55)
[2021-02-15] VITALS (9 sets, daily range): BP systolic 117–155; BP diastolic 53–85; PULSE 47–65; RESP 18–20; TEMP 36.6–37.7; O2SAT 93–99
[2021-02-15] MEDS: 0.9 % Sodium Chloride 1,000 ML 100 ML IVCONT ×2 (06:02→22:56)
[2021-02-15] MEDS: Piperacillin Sodium/Tazobactam 3.375 GM in 0.9 % Sodium Chloride 50 ML IV ×4 (06:02→23:58)
[2021-02-15 08:36] LABS: Hematocrit 28.9 % (37-47); Mean Corpuscular HGB Conc 31.1 g/dl (31.0-35.0); Mean Corpuscular Hemoglobin 31.3 pg (27.0-33.0); Mean Corpuscular Volume 100.3 fL (80-98); Platelet Count 287 X10*3/uL (160-400); Red Blood Count 2.88 X10*6/uL (4.20-5.50); White Blood Count 9.4 X10*3/uL (4.8-10.8)
[2021-02-15] MEDS: Docusate Sodium 100 MG CAPSULE PO ×2 (08:47→20:42)
[2021-02-15] MEDS: Aspirin 81 MG TAB.CHEW PO (08:47)
[2021-02-15] MEDS: 0.9 % Sodium Chloride Flush 3 ML SYRINGE IVFLUSH ×2 (08:47→20:54)
[2021-02-15] MEDS: Enoxaparin Sodium 80 MG/0.8 ML SYRINGE 75 MG SUBCUT ×2 (08:48→20:51)
[2021-02-15] MEDS: Topiramate 100 MG TABLET 200 MG PO ×2 (08:48→20:37)
[2021-02-15] MEDS: methADONE HCl 20 MG/2 ML ORAL.CONC 40 MG PO (08:49)
[2021-02-15] MEDS: amLODIPine Besylate 10 MG TABLET PO (08:49)
[2021-02-15 09:04] LABS: Anion Gap 12 (12-20); Blood Urea Nitrogen 10 mg/dL (9-16); Calcium 7.9 mg/dL (8.4-10.2); Carbon Dioxide 22 mmol/L (22-29); Chloride 109 mmol/L (96-108); Creatinine Clr Calc Pharmacy 56.5; Estimated Glomerular Filt Rate 44; Glucose Random 82 mg/dL (60-115); Potassium 3.8 mmol/L (3.3-5.1); Sodium 139 mmol/L (135-145)
--- NOTE | 2021-02-15 09:26 | HO.PM.IMPN ---
Subjective Subjective Date of Service: 02/15/21 Interval History: Chest pain improved Anxiety improved No fever No dizziness or lightheadness Review of Systems Review of Systems: Yes all other systems are reviewed and are negative Physical Exam Vital Signs: Vital Signs: Last Vital Signs Temp 98.6 F 02/15/21 07:34 Pulse 47 L 02/15/21 08:49 Resp 18 02/15/21 07:34 BP 146/73 H 02/15/21 08:49 Pulse Ox 96 02/15/21 07:34 Body Mass Index 24.6 Gen: chronically ill-appearing HEENT: sclera anicteric, moist mucus membranes Neck: supple, Zaman catheter to right subclavian Lungs: scattered inspiratory crackles Heart: bardycardic,, no murmurs Abd: soft, non-tender, non-distended Ext: 1+ leg edema bilaterally Skin: excoriated Neuro: alert and oriented x3, no focal findings Psych: restricted affect Objective Data Active Medications Albuterol/Ipratropium (Albuterol/Iprat 2.5/0.5mg 3 Ml Ampul.Neb) 3 ml INHALE RQ4H PRN PRN Reason: Shortness of Breath/Wheezing Amlodipine Besylate (Amlodipine Besylate 10 Mg Tablet) 10 mg PO DAILY [facility]; Protocol Last Admin: 02/15/21 08:49 Dose: 10 mg Documented by: KT Aspirin (Aspirin 81 Mg Tab.Chew) 81 mg PO DAILY [facility] Last Admin: 02/15/21 08:47 Dose: 81 mg Documented by: KT Clonidine HCl (Clonidine Hcl 0.1 Mg Tablet) 0.1 mg PO BID PRN; Protocol PRN Reason: Anxiety Last Admin: 02/14/21 09:05 Dose: 0.1 mg Documented by: SANTIAGO Docusate Sodium (Docusate Sodium 100 Mg Capsule) 100 mg PO BID SOPHIE Last Admin: 02/15/21 08:47 Dose: 100 mg Documented by: KT Enoxaparin Sodium (Enoxaparin Sodium 80 Mg/0.8 Ml Syringe) 75 mg SUBCUT Q12H [facility] Last Admin: 02/15/21 08:48 Dose: 75 mg Documented by: KT Sodium Chloride (Ns) 1,000 mls @ 100 mls/hr IVCONT .Q10H [facility] Last Admin: 02/15/21 06:02 Dose: 100 mls/hr Documented by: ALISSA Piperacillin Sod/Tazobactam (Sod 3.375 gm/ Sodium Chloride) 50 mls @ 100 mls/hr IV Q6H [facility] Last Infusion: 02/15/21 06:45 Dose: 0 mls/hr Documented by: ALISSA Vancomycin HCl 1,250 mg/ (Sodium Chloride) 250 mls @ 166.667 mls/hr IV Q24H [facility] Last Infusion: 02/14/21 18:04 Dose: 0 mls/hr Documented by: GRETEL Melatonin (Melatonin 3 Mg Tablet) 6 mg PO BEDTIME PRN PRN Reason: Insomnia Methadone HCl (Methadone Hcl 20 Mg/2 Ml Oral.Conc) 40 mg PO DAILY [facility] Last Admin: 02/15/21 08:49 Dose: 40 mg Documented by: KT Ondansetron HCl (Ondansetron Hcl 4 Mg/2 Ml Vial) 4 mg IVPUSH Q8H PRN PRN Reason: Nausea and Vomiting Oxycodone HCl (Oxycodone Hcl Immed Release 5 Mg Tablet) 5 mg PO Q6H PRN PRN Reason: Pain, Severe (Pain Scale 7-10) Last Admin: 02/14/21 19:48 Dose: 5 mg Documented by: ALISSA Pharmacy Consult (Consult Rx Perform Med Rec) 1 each MISCELLANE ONCE PRN PRN Reason: Consult order Pharmacy Consult (Consult Rx Vancomycin Dosing) 1 each MISCELLANE DAILY PRN PRN Reason: Consult order Prazosin HCl (Prazosin Hcl 1 Mg Capsule) 3 mg PO BEDTIME [facility]; Protocol Last Admin: 02/14/21 19:55 Dose: Not Given Documented by: ALISSA Non-Admin Reason: Decreased Heart Rate Quetiapine Fumarate (Quetiapine Fumarate 100 Mg Tablet) 100 mg PO BEDTIME [facility] Last Admin: 02/14/21 20:55 Dose: 100 mg Documented by: ALISSA Senna (Sennosides 8.6 Mg Tablet) 17.2 mg PO BEDTIME PRN PRN Reason: Constipation Sodium Chloride (0.9 % Sodium Chloride Flush 3 Ml Syringe) 3 ml IVFLUSH QSHIFT [facility] Last Admin: 02/15/21 08:47 Dose: 3 ml Documented by: KT Sumatriptan Succinate (Sumatriptan Succinate 50 Mg Tablet) 50 mg PO Q2H PRN PRN Reason: Migraine Headache Topiramate (Topiramate 100 Mg Tablet) 200 mg PO BID SOPHIE Last Admin: 02/15/21 08:48 Dose: 200 mg Documented by: KT Labs CBC & Chem 7: 02/15/21 08:01 02/15/21 08:01 Labs: Laboratory Results - last 24 hr 02/15/21 02/15/21 08:01 08:01 MCV 100.3 H MCH 31.3 MCHC 31.1 RDW 15.0 Plt Count 287 MPV 13.0 H Absolute Nucleated RBC 0.000 Nucleated RBC % (auto) 0.0 Anion Gap 12 Estim Creat Clear Calc 56.5 Estimated GFR 44 Random Glucose 82 Calcium 7.9 L D Microbiology Microbiology Results: Microbiology 02/13/21 16:26 Blood Culture - Preliminary Blood - Venous No growth after 24 hours. 02/13/21 16:11 Blood Culture - Preliminary Blood - Venous Prelim: GPC Gram Stain only Assessment and Plan (1) Septic embolism: Status: Acute (2) DVT (deep venous thrombosis): Status: Acute (3) Antiphospholipid antibody positive: Status: Acute (4) MRSA bacteremia: Status: Acute Assessment and Plan: hospital d#3 40yo F with IDU, APLAS/RALPH complicated by CVA and multiple DVT/PE [s/p IVC filter, off anticoagulation since episode of menorrhagia in 2014], HTN, CKD, HCV, bipolar depression, PTSD recently admitted to [facility] 12/21/20 for MRSA bacteremia complicated by hypoxia requiring transfer to MICU, hospitalization complicated by bilateral empyema s/p bilateral chest tube placement, transferred to [facility] for [place] but did not require VATS discharged to rehab for IV ABX with planned end date of 02/13/21 but left AMA 3wk prematurely and has been abusing heroin [place] [facility] [place], found to be septic with septic pulmonary emboli, left popliteal DVT, and GPC bacteremia # sepsis # bacteremia, likely MRSA - follow peripheral BCx and check surveillance BCx 02/16/21 - follow BCx from the Zaman, which may need to be removed and tip cultured - TTE to r/o endocarditis [TTE at [facility] was negative for IE] - continue vancomycin + pip/zackary d#3 [d/c pip/zackary if grows MRSA] - ID consult pending # LLE DVT # APLAS - LMWH 1 mg/kg q12h, Hematology consult, eventual transition to warfarin # bradycardia - asymptomatic, probably due to clonidine + prazosin # opioid use disorder - methadone, Addiction Medicine consult - screen HCV + HIV; pending results # troponin elevation - flat, likely due to sepsis # hypoK - repleted # HTN - continue amlodipine # CKD3 - SCr stable, monitor # mood disorder - continue topiramate, clonidine, prazosin; Psych consulted- ?aripiprazole # dispo - will need STR for long-term IV ABX Quality Stroke Does the patient have a stroke diagnosis?: No VTE Prior VTE?: Yes Approximate Date of Prior VTE: 02/13/21 VTE Risk Level:: Medical - moderate - high VTE Device Contraindication: Treatment Not Indicated VTE Drug Contraindication: N/A - Med Ordered
--- NOTE | 2021-02-15 09:30 | CA_ITS ---
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 - Normal right ventricular cavity size and systolic function. - The left atrium is severely dilated. - Significantly elevated right atrial pressure. Mild to moderate pulmonary hypertension is present. - There is mild to moderate mitral valve regurgitation. - There is mild dilatation of the ascending aorta. Findings Left Ventricle Normal left ventricular size and systolic function. There is mildly increased left ventricular wall thickness. The visually estimated ejection fraction is between 55-60%. There is no evidence of regional wall motion abnormalities. Diastolic function is normal for age. Right Ventricle Normal right ventricular cavity size and systolic function. Atria The left atrium is severely dilated. Aortic Valve The aortic valve structure and function is likely normal. There is no aortic valve stenosis. There is no aortic valve regurgitation. Mitral Valve The mitral valve appears normal. There is mild to moderate mitral valve regurgitation. There is no mitral valve stenosis. Pulmonic Valve The pulmonic valve is likely normal. There is trace pulmonic valve regurgitation. Tricuspid Valve Normal tricuspid valve structure. There is trace tricuspid valve regurgitation. Significantly elevated right atrial pressure. Mild to moderate pulmonary hypertension is present. Great Vessels There is mild dilatation of the ascending aorta. The visualized portions of the pulmonary artery and branches are normal. Venous The inferior vena cava is dilated and does not collapse with inspiration. Pericardium/Pleural There is no evidence of pericardial effusion. Prior Study Comparison Changes noted compared to prior study. EF 55-60%, Severely dilated LA,mild to moderate MR, severely elevated RA pressure and mild to moderate pulmonary hypertension. Measurements 2D Linear Measurements IVSd: 0.99 0.6-0.9/0.6-1.0 cm LVIDd: 4.61 3.9-5.3/4.2-5.9 cm LVIDd Index: 2.47 2.4-3.2/2.2-3.1 cm/m2 LVIDs: 2.86 2.0-3.6 cm LVPWd: 1.06 0.7-1.1 cm Ao Root: 3.00 2.1-3.5 cm LA Diam: 4.60 2.7-3.8/3.0-4.0 cm LAIDs Index: 2.46 1.5-2.3 cm/m2 LV Mass: 205.20 67-162/88-224 g LV Mass Index: 109.73 43-95/49-115 g/m2 LVOT Diam: 2.30 3.0+(-)1.3 cm Mitral Valve MV Pk E: 1.09 MV PK A: 0.72 MV Decel Time: 224.00 E/A: 1.50 E'Lateral: 10.90 E'Medial: 8.49 E/E' Med: 12.80 E/E' Lat: 10.00 PHT: 66.00 MVA PHT: 3.33 Decel [place]: 4.87 Aortic Valve AoV Pk Bg: 1.84 AoV Mn Bg: 1.22 AoV VTI: 0.43 AoV Pk Grad: 14.00 Aov Mn Grad: 7.00 MERA Cont.VTI: 2.69 LVOT LVOT Pk Bg: 1.16 LVOT Mn Bg: 0.72 LVOT VTI: 0.28 LVOT Pk Grad: 5.00 LVOT Mn Grad: 3.00 LVOT Diam: 2.30 LVOT Area: 4.15 Diastolic Function MV Pk E: 1.09 MV Pk A: 0.72 E/A: 1.50 E'Medial: 8.49 E/E' Med: 12.80 E' Laterial: 10.90 E/E' Lat: 10.00 Tricuspid Valve TR Pk Bg: 2.89 TR Pk Grad: 33.00 RVSP: 48.00 Great Vessels Aorta Ao Root-2D: 3.00 2.0-3.7 cm Ao Asc: 3.60 2.1-3.4 cm Pulmonary Valve PV Pk Bg: 1.19 Peak PV Grad: 6.00 Updated in Other Vendor System with Status of Final Juan Washington MD electronically signed on 02/15/2021 9:18:25 PM with status of Final
[2021-02-15 09:31] LABS: HIV AB/AG Nonreactive (Nonreactive); HIV Num 1 0.04 S/CO (0.00-0.99)
[2021-02-15] MEDS: oxyCODONE HCl Immed Release 5 MG TABLET PO (10:54)
--- NOTE | 2021-02-15 13:47 | HO.ADDICT_ITS ---
History of Present Illness Date of Service: 02/15/2021 Chief Complaint: PNA, Septic emboli, bradycardia Reason for Consult: OUD --previously on methadone Requesting physician: Wilder Sibley Discussed with referring provider: Yes Sources of Information: patient interviewed and chart reviewed HPI Narrative: From admission H&P: 40-year-old female with a past medical history of IV drug abuse, history of antiphospholipid syndrome complicated by CVA, history of multiple DVT/PE status post IVC filter; was on anticoagulation and 2015; anticoagulation was discontinued post menorrhagia in 2014 and reportedly has not had any blood clots since then; hypertension, CKD, hepatitis-C, PTSD, depression, bipolar, history of inpatient psychiatric admissions; recently admitted to the [facility] for MRSA bacteremia/bilateral empyema status post chest tube placement; subsequently chest tube was removed and sent to rehab via to finish antibiotics via Port-A-Cath until 02/13/2021; patient had echocardiogram done which showed no evidence of vegetations, MRI of the lumbar spine with no evidence of epidural abscess at [facility];Patient left [facility] from the rehab about 3 weeks ago; has been living at home and using heroin heavily on a daily basis; prese nted to the hospital today with a chief complaint of chest pains. Consult requested to eval and treat OUD. case discussed with ED provider at time of admission and based on withdrawal sx methadone 20mg was administered. Day 2 patient was seen and reporting withdrawal sx. 30mg in AM and 10mg given in the afternoon. Patient seen with Recovery support RN and additional history obtained Patient reported long history of opiate and cocaine use with long periods of recovery in between. family history of substance use disorders Unclear when she most recently initiated methadone, but was on 76mg(verified by RSRN until at least the end of November-prior to admission at [facility], where it was continued). She is requesting dose be titrated back to 76mg which is where she was stable. Prior to coming back to the ED (after leaving facility AMA) she reports she was using approx 2 bundles of heroin daily Today (02/15) she received 40mg. Seen by this service writer advisor and RSRN several times, she was reporting nausea and overall malaise. She appeared ill and lethargic. Past Psychiatric History: not reviewed, but seen by psychiatry and restarted on psychiatric meds Personal & Social History: unclear, but reports she was living with her mother in [place] has a 9 year old son who is in mother's custody Review of Systems Constitutional: Reports body ache(s), Reports chills, Reports difficulty sleeping, Reports lethargy, Reports malaise and Reports poor appetite Diagnostics Vital Signs (24Hr): Vital Signs - 24 hr 02/14/21 15:53 02/14/21 19:45 02/14/21 19:55 Temperature 97.6 F 98.9 F Pulse Rate 52 43 L 44 L Respiratory Rate 18 19 Blood Pressure 156/86 H 159/84 H Pulse Oximetry 98 98 02/14/21 23:37 02/15/21 03:31 02/15/21 07:34 Temperature 98.4 F 98 F 98.6 F Pulse Rate 45 L 49 L 47 L Respiratory Rate 18 18 18 Blood Pressure 119/80 129/79 146/73 H Pulse Oximetry 95 95 96 02/15/21 08:49 02/15/21 12:00 Temperature 98.8 F Pulse Rate 47 L 51 Respiratory Rate 18 Blood Pressure 146/73 H 155/83 H Pulse Oximetry 95 Body Mass Index 24.6 Labs Results: 02/15/21 08:01 02/15/21 08:01 Labs: Laboratory Results - last 48 hr 02/13/21 02/13/21 02/13/21 16:11 16:11 16:11 WBC 20.9 H RBC 3.23 L Hgb 10.3 L Hct 31.3 L MCV 96.9 MCH 31.9 MCHC 32.9 RDW 14.5 Plt Count 323 MPV 12.2 Immature Gran % (Auto) Cancelled Neut % (Auto) Cancelled Lymph % (Auto) Cancelled Person % (Auto) Cancelled Eos % (Auto) Cancelled Baso % (Auto) Cancelled Lymph # (Auto) Cancelled Person # (Auto) Cancelled Eos # (Auto) Cancelled Baso # (Auto) Cancelled Abs Immat Gran (auto) Cancelled Absolute Neuts (auto) Cancelled Absolute Nucleated RBC 0.000 Nucleated RBC % (auto) 0.0 Neutrophils % (Manual) 87 H Band Neutrophils % 2 L Lymphocytes % (Manual) 6 L Monocytes % (Manual) 5 Abs Neuts (Manual) 18.6 H Lymphocytes # (Manual) 1.3 Monocytes # (Manual) 1.0 Toxic Vacuolation PRESENT Platelet Estimate NORMAL Large Platelets PRESENT Plt Morphology Comment NOTED RBC Morphology NOTED Polychromasia 1+ (0-2) Microcytosis 1+ (5-14) Stomatocytes 1+ (5-14) Parrish Cells 1+ (0-2) PT 12.9 INR 1.1 Sodium 138 Potassium 3.4 Chloride 99 Carbon Dioxide 27 Anion Gap 15 BUN 12 Creatinine 1.40 Estim Creat Clear Calc 57.7 Estimated GFR 41 Random Glucose 88 Lactic Acid Calcium 9.0 Magnesium 1.6 Total Bilirubin 0.8 Direct Bilirubin 0.2 AST 17 ALT 6 Alkaline Phosphatase 181 H Total Creatine Kinase Troponin I High Sens B-Natriuretic Peptide Total Protein 7.1 Albumin 3.0 L Urine Color Urine Appearance Urine pH Ur Specific [place] Urine Protein Urine Glucose (UA) Urine Ketones Urine Blood Urine Nitrite Ur Leukocyte Esterase Urine RBC Urine WBC Ur Squamous Epith Cells Urine Bacteria Urine Test Urine Opiates Screen Urine Fentanyl Screen Ur Barbiturates Screen Ur Phencyclidine Scrn Ur Amphetamines Screen U Benzodiazepines Scrn Urine Cocaine Screen U Marijuana (THC) Screen Ethyl Alcohol COVID-19 ([facility]) COVID-19 Clin Com HIV 1&2 Ab/P24 Ag 4thGn 02/13/21 02/13/21 02/13/21 16:11 16:11 16:11 WBC RBC Hgb Hct MCV MCH MCHC RDW Plt Count MPV Immature Gran % (Auto) Neut % (Auto) Lymph % (Auto) Person % (Auto) Eos % (Auto) Baso % (Auto) Lymph # (Auto) Person # (Auto) Eos # (Auto) Baso # (Auto) Abs Immat Gran (auto) Absolute Neuts (auto) Absolute Nucleated RBC Nucleated RBC % (auto) Neutrophils % (Manual) Band Neutrophils % Lymphocytes % (Manual) Monocytes % (Manual) Abs Neuts (Manual) Lymphocytes # (Manual) Monocytes # (Manual) Toxic Vacuolation Platelet Estimate Large Platelets Plt Morphology Comment RBC Morphology Polychromasia Microcytosis Stomatocytes Parrish Cells PT INR Sodium Potassium Chloride Carbon Dioxide Anion Gap BUN Creatinine Estim Creat Clear Calc Estimated GFR Random Glucose Lactic Acid 1.0 Calcium Magnesium Total Bilirubin Direct Bilirubin AST ALT Alkaline Phosphatase Total Creatine Kinase 19 L Troponin I High Sens 18.5 H* B-Natriuretic Peptide 115 H Total Protein Albumin Urine Color Urine Appearance Urine pH Ur Specific [place] Urine Protein Urine Glucose (UA) Urine Ketones Urine Blood Urine Nitrite Ur Leukocyte Esterase Urine RBC Urine WBC Ur Squamous Epith Cells Urine Bacteria Urine Test Urine Opiates Screen Urine Fentanyl Screen Ur Barbiturates Screen Ur Phencyclidine Scrn Ur Amphetamines Screen U Benzodiazepines Scrn Urine Cocaine Screen U Marijuana (THC) Screen Ethyl Alcohol COVID-19 ([facility]) COVID-19 Clin Com HIV 1&2 Ab/P24 Ag 4thGn 02/13/21 02/13/21 02/13/21 16:11 16:21 19:16 WBC RBC Hgb Hct MCV MCH MCHC RDW Plt Count MPV Immature Gran % (Auto) Neut % (Auto) Lymph % (Auto) Person % (Auto) Eos % (Auto) Baso % (Auto) Lymph # (Auto) Person # (Auto) Eos # (Auto) Baso # (Auto) Abs Immat Gran (auto) Absolute Neuts (auto) Absolute Nucleated RBC Nucleated RBC % (auto) Neutrophils % (Manual) Band Neutrophils % Lymphocytes % (Manual) Monocytes % (Manual) Abs Neuts (Manual) Lymphocytes # (Manual) Monocytes # (Manual) Toxic Vacuolation Platelet Estimate Large Platelets Plt Morphology Comment RBC Morphology Polychromasia Microcytosis Stomatocytes Annie Cells PT INR Sodium Potassium Chloride Carbon Dioxide Anion Gap BUN Creatinine Estim Creat Clear Calc Estimated GFR Random Glucose Lactic Acid Calcium Magnesium Total Bilirubin Direct Bilirubin AST ALT Alkaline Phosphatase Total Creatine Kinase Troponin I High Sens B-Natriuretic Peptide Total Protein Albumin Urine Color YELLOW Urine Appearance HAZY Urine pH 6.0 Ur Specific [place] 1.025 Urine Protein 2+ H Urine Glucose (UA) NEG Urine Ketones NEG Urine Blood 3+ H Urine Nitrite NEG Ur Leukocyte Esterase NEG Urine RBC 1-4 Urine WBC 0 Ur Squamous Epith Cells 4+ Urine Bacteria 2+ Urine Test Urine Opiates Screen Urine Fentanyl Screen Ur Barbiturates Screen Ur Phencyclidine Scrn Ur Amphetamines Screen U Benzodiazepines Scrn Urine Cocaine Screen U Marijuana (THC) Screen Ethyl Alcohol < 10 COVID-19 ([facility]) Negative COVID-19 Clin Com See Note HIV 1&2 Ab/P24 Ag 4thGn 02/13/21 02/13/21 02/13/21 19:16 19:16 19:23 WBC RBC Hgb Hct MCV MCH MCHC RDW Plt Count MPV Immature Gran % (Auto) Neut % (Auto) Lymph % (Auto) Person % (Auto) Eos % (Auto) Baso % (Auto) Lymph # (Auto) Person # (Auto) Eos # (Auto) Baso # (Auto) Abs Immat Gran (auto) Absolute Neuts (auto) Absolute Nucleated RBC Nucleated RBC % (auto) Neutrophils % (Manual) Band Neutrophils % Lymphocytes % (Manual) Monocytes % (Manual) Abs Neuts (Manual) Lymphocytes # (Manual) Monocytes # (Manual) Toxic Vacuolation Platelet Estimate Large Platelets Plt Morphology Comment RBC Morphology Polychromasia Microcytosis Stomatocytes Annie Cells PT INR Sodium Potassium Chloride Carbon Dioxide Anion Gap BUN Creatinine Estim Creat Clear Calc Estimated GFR Random Glucose Lactic Acid Calcium Magnesium Total Bilirubin Direct Bilirubin AST ALT Alkaline Phosphatase Total Creatine Kinase Troponin I High Sens 17.1 H* B-Natriuretic Peptide Total Protein Albumin Urine Color Urine Appearance Urine pH Ur Specific [place] Urine Protein Urine Glucose (UA) Urine Ketones Urine Blood Urine Nitrite Ur Leukocyte Esterase Urine RBC Urine WBC Ur Squamous Epith Cells Urine Bacteria Urine Test NEGATIVE Urine Opiates Screen POSITIVE H Urine Fentanyl Screen POSITIVE H Ur Barbiturates Screen Not Detected Ur Phencyclidine Scrn Not Detected Ur Amphetamines Screen Not Detected U Benzodiazepines Scrn Not Detected Urine Cocaine Screen POSITIVE H U Marijuana (THC) Screen Not Detected Ethyl Alcohol COVID-19 ([facility]) COVID-19 Clin Com HIV 1&2 Ab/P24 Ag 4thGn 02/14/21 02/14/21 02/15/21 06:41 06:41 08:01 WBC 13.4 H 9.4 RBC 3.08 L 2.88 L Hgb 9.5 L 9.0 L Hct 30.3 L 28.9 L MCV 98.4 H 100.3 H MCH 30.8 31.3 MCHC 31.4 31.1 RDW 14.6 15.0 Plt Count 307 287 MPV 12.3 13.0 H Immature Gran % (Auto) Neut % (Auto) Lymph % (Auto) Person % (Auto) Eos % (Auto) Baso % (Auto) Lymph # (Auto) Person # (Auto) Eos # (Auto) Baso # (Auto) Abs Immat Gran (auto) Absolute Neuts (auto) Absolute Nucleated RBC 0.000 0.000 Nucleated RBC % (auto) 0.0 0.0 Neutrophils % (Manual) Band Neutrophils % Lymphocytes % (Manual) Monocytes % (Manual) Abs Neuts (Manual) Lymphocytes # (Manual) Monocytes # (Manual) Toxic Vacuolation Platelet Estimate Large Platelets Plt Morphology Comment RBC Morphology Polychromasia Microcytosis Stomatocytes Annie Cells PT INR Sodium 141 Potassium 3.0 L Chloride 103 Carbon Dioxide 29 Anion Gap 12 BUN 15 Creatinine 1.55 H Estim Creat Clear Calc 52.1 Estimated GFR 37 Random Glucose 102 Lactic Acid Calcium 8.6 Magnesium 1.7 Total Bilirubin Direct Bilirubin AST ALT Alkaline Phosphatase Total Creatine Kinase Troponin I High Sens B-Natriuretic Peptide Total Protein Albumin Urine Color Urine Appearance Urine pH Ur Specific [place] Urine Protein Urine Glucose (UA) Urine Ketones Urine Blood Urine Nitrite Ur Leukocyte Esterase Urine RBC Urine WBC Ur Squamous Epith Cells Urine Bacteria Urine Test Urine Opiates Screen Urine Fentanyl Screen Ur Barbiturates Screen Ur Phencyclidine Scrn Ur Amphetamines Screen U Benzodiazepines Scrn Urine Cocaine Screen U Marijuana (THC) Screen Ethyl Alcohol COVID-19 ([facility]) COVID-19 Clin Com HIV 1&2 Ab/P24 Ag 4thGn 02/15/21 02/15/21 08:01 08:01 WBC RBC Hgb Hct MCV MCH MCHC RDW Plt Count MPV Immature Gran % (Auto) Neut % (Auto) Lymph % (Auto) Person % (Auto) Eos % (Auto) Baso % (Auto) Lymph # (Auto) Person # (Auto) Eos # (Auto) Baso # (Auto) Abs Immat Gran (auto) Absolute Neuts (auto) Absolute Nucleated RBC Nucleated RBC % (auto) Neutrophils % (Manual) Band Neutrophils % Lymphocytes % (Manual) Monocytes % (Manual) Abs Neuts (Manual) Lymphocytes # (Manual) Monocytes # (Manual) Toxic Vacuolation Platelet Estimate Large Platelets Plt Morphology Comment RBC Morphology Polychromasia Microcytosis Stomatocytes Parrish Cells PT INR Sodium 139 Potassium 3.8 D Chloride 109 H Carbon Dioxide 22 Anion Gap 12 BUN 10 Creatinine 1.32 Estim Creat Clear Calc 56.5 Estimated GFR 44 Random Glucose 82 Lactic Acid Calcium 7.9 L D Magnesium Total Bilirubin Direct Bilirubin AST ALT Alkaline Phosphatase Total Creatine Kinase Troponin I High Sens B-Natriuretic Peptide Total Protein Albumin Urine Color Urine Appearance Urine pH Ur Specific [place] Urine Protein Urine Glucose (UA) Urine Ketones Urine Blood Urine Nitrite Ur Leukocyte Esterase Urine RBC Urine WBC Ur Squamous Epith Cells Urine Bacteria Urine Test Urine Opiates Screen Urine Fentanyl Screen Ur Barbiturates Screen Ur Phencyclidine Scrn Ur Amphetamines Screen U Benzodiazepines Scrn Urine Cocaine Screen U Marijuana (THC) Screen Ethyl Alcohol COVID-19 ([facility]) COVID-19 Clin Com HIV 1&2 Ab/P24 Ag 4thGn Nonreactive Imaging Radiology Impressions: ITS Impressions Chest X-Ray 02/13/21 15:25 IMPRESSION: Patchy opacities in right upper lobe and right lower lobe and scattered opacity left mid lobe likely developing infiltrates. Right Zaman catheter tip is in mid SVC. Venous Duplex 02/13/21 15:26 IMPRESSION: Left: Left popliteal vein DVT. Right: No evidence of DVT. Chest CT 02/13/21 17:10 IMPRESSION: New patchy bilateral airspace disease some which are cavitary. Focal infectious etiology would be strongly favored with this appearance. Septic emboli could have this distribution and should be clinically correlated.. Mental Status Exam Mental Status Exam Patient Appearance: Unkempt Patient Orientation: Person, Place, Time and Situation Level of Consciousness: Awake and Lethargic Patient Behavior: Appropriate Mood Description: Flat Affect Description: Flat Ability to Follow Directions: Excellent Speech Pattern: Clear Thought Process: Intact Thought Content: positive for Intact Judgement: Fair Medications Medications Current Medications Albuterol/Ipratropium (Albuterol/Iprat 2.5/0.5mg 3 Ml Ampul.Neb) 3 ml INHALE RQ4H PRN PRN Reason: Shortness of Breath/Wheezing Amlodipine Besylate (Amlodipine Besylate 10 Mg Tablet) 10 mg PO DAILY [facility]; Protocol Last Admin: 02/15/21 08:49 Dose: 10 mg Documented by: Aripiprazole (Aripiprazole 5 Mg Tablet) 7.5 mg PO DAILY [facility] Aspirin (Aspirin 81 Mg Tab.Chew) 81 mg PO DAILY [facility] Last Admin: 02/15/21 08:47 Dose: 81 mg Documented by: Clonidine HCl (Clonidine Hcl 0.1 Mg Tablet) 0.1 mg PO TID [facility]; Protocol Docusate Sodium (Docusate Sodium 100 Mg Capsule) 100 mg PO BID [facility] Last Admin: 02/15/21 08:47 Dose: 100 mg Documented by: Enoxaparin Sodium (Enoxaparin Sodium 80 Mg/0.8 Ml Syringe) 75 mg SUBCUT Q12H [facility] Last Admin: 02/15/21 08:48 Dose: 75 mg Documented by: Gabapentin (Gabapentin 100 Mg Capsule) 200 mg PO TID [facility] Sodium Chloride (Ns) 1,000 mls @ 100 mls/hr IVCONT .Q10H [facility] Last Admin: 02/15/21 12:37 Dose: Not Given Documented by: Piperacillin Sod/Tazobactam (Sod 3.375 gm/ Sodium Chloride) 50 mls @ 100 mls/hr IV Q6H [facility] Last Infusion: 02/15/21 13:16 Dose: Infused Documented by: Vancomycin HCl 1,250 mg/ (Sodium Chloride) 250 mls @ 166.667 mls/hr IV Q24H [facility] Last Infusion: 02/14/21 18:04 Dose: Infused Documented by: Melatonin (Melatonin 3 Mg Tablet) 6 mg PO BEDTIME PRN PRN Reason: Insomnia Methadone HCl (Methadone Hcl 20 Mg/2 Ml Oral.Conc) 40 mg PO DAILY [facility] Last Admin: 02/15/21 08:49 Dose: 40 mg Documented by: Ondansetron HCl (Ondansetron Hcl 4 Mg/2 Ml Vial) 4 mg IVPUSH Q8H PRN PRN Reason: Nausea and Vomiting Oxycodone HCl (Oxycodone Hcl Immed Release 5 Mg Tablet) 5 mg PO Q6H PRN PRN Reason: Pain, Severe (Pain Scale 7-10) Last Admin: 02/15/21 10:54 Dose: 5 mg Documented by: Pharmacy Consult (Consult Rx Perform Med Rec) 1 each MISCELLANE ONCE PRN PRN Reason: Consult order Pharmacy Consult (Consult Rx Vancomycin Dosing) 1 each MISCELLANE DAILY PRN PRN Reason: Consult order Prazosin HCl (Prazosin Hcl 1 Mg Capsule) 3 mg PO BEDTIME [facility]; Protocol Last Admin: 02/14/21 19:55 Dose: Not Given Documented by: Quetiapine Fumarate (Quetiapine Fumarate 400 Mg Tablet) 400 mg PO BEDTIME [facility] Senna (Sennosides 8.6 Mg Tablet) 17.2 mg PO BEDTIME PRN PRN Reason: Constipation Sodium Chloride (0.9 % Sodium Chloride Flush 3 Ml Syringe) 3 ml IVFLUSH QSHIFT [facility] Last Admin: 02/15/21 08:47 Dose: 3 ml Documented by: Sumatriptan Succinate (Sumatriptan Succinate 50 Mg Tablet) 50 mg PO Q2H PRN PRN Reason: Migraine Headache Topiramate (Topiramate 100 Mg Tablet) 200 mg PO BID [facility] Last Admin: 02/15/21 08:48 Dose: 200 mg Documented by: Allergies Allergies Allergy/AdvReac Type Severity Reaction Status Date / Time bee pollen [BEE STINGS] Allergy Severe Anaphylaxis Verified 02/13/21 14:25 codeine [CODEINE] Allergy Severe ANAPHYLAXIS Verified 02/13/21 14:25 Iodinated Contrast Media Allergy Severe DIFFICULTY Verified 02/13/21 14:25 [IV DYE, IODINE CONTAINING BREATHING CONTRAST ] nut - unspecified [nut] Allergy Intermediate Rash Verified 02/13/21 14:25 shellfish derived Allergy Intermediate Rash Verified 02/13/21 14:25 Sulfa (Sulfonamide Allergy Unknown ANAPHYLAXIS Verified 02/13/21 14:25 Antibiotics) [SULFA (SULFONAMIDE ANTIBIOTICS)] Assessment & Plan Assessment & Plan (1) Opioid use disorder, severe, dependence: Status: Acute Code(s): F11.20 - Opioid dependence, uncomplicated Assessment and Plan: * continue methadone 40mg * monitor for oversedation given restart of psychiatric medications * will re-eval Thursday for dose increase of 5mg * discussed case with covering provider and clinical team 90 min with patient, coordinating care Greater than 50% of the session was spent on counseling and/or coordination of care PMFSH Past Medical History Medical History (Updated 02/15/21 @ 16:22 by Cecy Espino CNP) DVT (deep venous thrombosis) Sander filter in place Lupus Opiate abuse, continuous Pneumonia Pulmonary emboli Surgical History Surgical History History of appendectomy Hx of splenectomy Social History Social History Household Members: None Housing: Homeless Do you presently have visiting nurse or other home services: No Patient Tobacco Use Status: Current someday Tobacco user Tobacco use type: Cigarette Smoked in Last 30 Days: Yes e-Cigarette/Vaping Use: Currently Using Patient Interested in Nicotine Replacement: No Patient Given Instructions on How to Stop Smoking: No Second Hand Smoke Exposure: Yes Use of substances other than those prescribed or required for medical reasons: Yes Substance Use Type: Crack/Cocaine and Opiates Substance Use Frequency: Occasionally Last Used Substance: Days (ago) Currently Displaying Signs/Symptoms of Drug Intoxication Withdrawal: No Any prior treatment program specific to substance use: Yes Have you been hit, kicked, punched, or otherwise hurt by someone within the past year? If so, by whom?: No Do you feel safe in your current relationship?: Yes Is there a partner from a previous relationship who is making you feel unsafe now?: No Are you made to feel afraid or neglected: No Advance Directives: No Advance Directives Information Provided: No Do you have thoughts of harming others: None Do you have a plan to hurt others: No Plan Recently lost weight without trying: No Nutrition Risks: No Nutritional Risk Patient : No service: No Current occupational status: employed
[2021-02-15] MEDS: cloNIDine HCL 0.1 MG TABLET PO ×2 (14:07→20:42)
[2021-02-15] MEDS: ARIPiprazole 5 MG TABLET 7.5 MG PO (14:07)
[2021-02-15] MEDS: Gabapentin 100 MG CAPSULE 200 MG PO ×2 (14:08→20:37)
--- NOTE | 2021-02-15 15:36 | P.CNID_ITS ---
History of Present Illness Data of Consult Service Date: 02/15/21 Requesting physician: Wilder Sibley Primary Care Provider: Unknown Physician HPI Reason for consult: bacteremia She presents to hospital with weakness and fatigue She has complicated history with MRSA bacteremia and IVDU and went to [facility] and received Vancomycin She has been in Rehab and left AMA apparently with [facility] in She now has one blood culture with multiple organisms,none MRSA, Review of Systems Review of Systems: Yes all other systems are reviewed and are negative PMFSH Past Medical History Medical History Candidemia DVT (deep venous thrombosis) [place] filter in place Lupus Opiate abuse, continuous Pneumonia Pulmonary emboli Surgical History Surgical History History of appendectomy Hx of splenectomy Social History Social History Household Members: None Housing: Homeless Do you presently have visiting nurse or other home services: No Patient Tobacco Use Status: Current someday Tobacco user Tobacco use type: Cigarette e-Cigarette/Vaping Use: Currently Using Second Hand Smoke Exposure: Yes Substance Use Type: Crack/Cocaine and Opiates service: No Current occupational status: employed Meds Allergies Allergy/AdvReac Type Severity Reaction Status Date / Time bee pollen [BEE STINGS] Allergy Severe Anaphylaxis Verified 02/13/21 14:25 codeine [CODEINE] Allergy Severe ANAPHYLAXIS Verified 02/13/21 14:25 Iodinated Contrast Media Allergy Severe DIFFICULTY Verified 02/13/21 14:25 [IV DYE, IODINE CONTAINING BREATHING CONTRAST ] nut - unspecified [nut] Allergy Intermediate Rash Verified 02/13/21 14:25 shellfish derived Allergy Intermediate Rash Verified 02/13/21 14:25 Sulfa (Sulfonamide Allergy Unknown ANAPHYLAXIS Verified 02/13/21 14:25 Antibiotics) [SULFA (SULFONAMIDE ANTIBIOTICS)] Active Medications: Current Medications Albuterol/Ipratropium (Albuterol/Iprat 2.5/0.5mg 3 Ml Ampul.Neb) 3 ml INHALE RQ4H PRN PRN Reason: Shortness of Breath/Wheezing Amlodipine Besylate (Amlodipine Besylate 10 Mg Tablet) 10 mg PO DAILY [facility]; Protocol Last Admin: 02/15/21 08:49 Dose: 10 mg Documented by: Aripiprazole (Aripiprazole 5 Mg Tablet) 7.5 mg PO DAILY [facility] Last Admin: 02/15/21 14:07 Dose: 7.5 mg Documented by: Aspirin (Aspirin 81 Mg Tab.Chew) 81 mg PO DAILY [facility] Last Admin: 02/15/21 08:47 Dose: 81 mg Documented by: Clonidine HCl (Clonidine Hcl 0.1 Mg Tablet) 0.1 mg PO TID [facility]; Protocol Last Admin: 02/15/21 14:07 Dose: 0.1 mg Documented by: Docusate Sodium (Docusate Sodium 100 Mg Capsule) 100 mg PO BID [facility] Last Admin: 02/15/21 08:47 Dose: 100 mg Documented by: Enoxaparin Sodium (Enoxaparin Sodium 80 Mg/0.8 Ml Syringe) 75 mg SUBCUT Q12H [facility] Last Admin: 02/15/21 08:48 Dose: 75 mg Documented by: Gabapentin (Gabapentin 100 Mg Capsule) 200 mg PO TID [facility] Last Admin: 02/15/21 14:08 Dose: 200 mg Documented by: Sodium Chloride (Ns) 1,000 mls @ 100 mls/hr IVCONT .Q10H [facility] Last Admin: 02/15/21 12:37 Dose: Not Given Documented by: Piperacillin Sod/Tazobactam (Sod 3.375 gm/ Sodium Chloride) 50 mls @ 100 mls/hr IV Q6H [facility] Last Infusion: 02/15/21 13:16 Dose: Infused Documented by: Vancomycin HCl 1,250 mg/ (Sodium Chloride) 250 mls @ 166.667 mls/hr IV Q24H [facility] Last Infusion: 02/14/21 18:04 Dose: Infused Documented by: Melatonin (Melatonin 3 Mg Tablet) 6 mg PO BEDTIME PRN PRN Reason: Insomnia Methadone HCl (Methadone Hcl 20 Mg/2 Ml Oral.Conc) 40 mg PO DAILY [facility] Last Admin: 02/15/21 08:49 Dose: 40 mg Documented by: Ondansetron HCl (Ondansetron Hcl 4 Mg/2 Ml Vial) 4 mg IVPUSH Q8H PRN PRN Reason: Nausea and Vomiting Oxycodone HCl (Oxycodone Hcl Immed Release 5 Mg Tablet) 5 mg PO Q6H PRN PRN Reason: Pain, Severe (Pain Scale 7-10) Last Admin: 02/15/21 10:54 Dose: 5 mg Documented by: Pharmacy Consult (Consult Rx Perform Med Rec) 1 each MISCELLANE ONCE PRN PRN Reason: Consult order Pharmacy Consult (Consult Rx Vancomycin Dosing) 1 each MISCELLANE DAILY PRN PRN Reason: Consult order Prazosin HCl (Prazosin Hcl 1 Mg Capsule) 3 mg PO BEDTIME [facility]; Protocol Last Admin: 02/14/21 19:55 Dose: Not Given Documented by: Quetiapine Fumarate (Quetiapine Fumarate 400 Mg Tablet) 400 mg PO BEDTIME [facility] Senna (Sennosides 8.6 Mg Tablet) 17.2 mg PO BEDTIME PRN PRN Reason: Constipation Sodium Chloride (0.9 % Sodium Chloride Flush 3 Ml Syringe) 3 ml IVFLUSH QSHIFT [facility] Last Admin: 02/15/21 08:47 Dose: 3 ml Documented by: Sumatriptan Succinate (Sumatriptan Succinate 50 Mg Tablet) 50 mg PO Q2H PRN PRN Reason: Migraine Headache Topiramate (Topiramate 100 Mg Tablet) 200 mg PO BID [facility] Last Admin: 02/15/21 08:48 Dose: 200 mg Documented by: Home Medications Medication Instructions Recorded Confirmed Last Taken Type albuterol sulfate 90 mcg/actuation 2 puff INHALATION Q6H PRN 02/28/20 02/13/21 Unknown History aerosol inhaler famotidine 20 mg tablet 20 mg PO DAILY 02/28/20 02/13/21 02/13/21 History amlodipine 10 mg tablet 10 mg PO DAILY 02/13/21 02/13/21 02/13/21 History aspirin 81 mg chewable tablet 81 mg PO DAILY 02/13/21 02/13/21 02/13/21 History clonidine HCl 0.1 mg tablet 0.1 mg PO BID PRN 02/13/21 02/13/21 Unknown History melatonin 5 mg tablet 5 mg PO BEDTIME PRN 02/13/21 02/13/21 Unknown History sumatriptan succinate 50 mg tablet 50 mg PO Q2H PRN 02/13/21 02/13/21 Unknown History (Imitrex) topiramate 200 mg tablet 200 mg PO BID 02/13/21 02/13/21 02/13/21 History aripiprazole 5 mg tablet 7.5 mg PO DAILY 02/15/21 02/15/21 Unknown History ferrous sulfate 324 mg (65 mg 324 mg PO DAILY 02/15/21 02/15/21 Unknown History iron) tablet,delayed release gabapentin 100 mg capsule 200 mg PO BID 02/15/21 02/15/21 Unknown History lidocaine 5 % topical patch 1 patch TOPICAL DAILY 02/15/21 02/15/21 Unknown History polyethylene glycol 3350 17 gram 17 g PO DAILY 02/15/21 02/15/21 Unknown History oral powder packet (Miralax) prazosin 1 mg capsule 3 mg PO BEDTIME 02/15/21 02/15/21 Unknown History Physical Exam Vital Signs: Vital Signs: Last Vital Signs Temp 98.8 F 02/15/21 12:00 Pulse 51 02/15/21 12:00 Resp 18 02/15/21 12:00 BP 155/83 H 02/15/21 12:00 Pulse Ox 95 02/15/21 12:00 Body Mass Index 24.6 Const: General: cooperative HENMT: Head: Yes normal to inspection Mouth: Normal oral and palatal mucosa present Eyes: General: appearance normal, both eyes and all related structures Resp: Effort & Inspection: normal respiratory effort Cardio: Rate: regular rate Rhythm: regular rhythm GI: Palpation (GI): Soft to palpation and nontender Skin: General skin exam: no rashes or lesions noted Results Labs CBC & Chem 7: 02/15/21 08:01 02/21/21 08:58 Labs: Short CBC 02/15/21 Range/Units 08:01 WBC 9.4 (4.8-10.8) X10*3/uL Hgb 9.0 L (12.0-16.0) g/dl Hct 28.9 L (37-47) % Plt Count 287 (160-400) X10*3/uL BMP 02/15/21 08:01 Sodium 139 Potassium 3.8 D Chloride 109 H Carbon Dioxide 22 BUN 10 Creatinine 1.32 Calcium 7.9 L D Microbiology Microbiology Results: Microbiology 02/14/21 11:49 Blood - Central Line Blood Culture - Preliminary No growth after 24 hours. 02/13/21 16:11 Blood - Venous Blood Culture - Preliminary Gram negative aminta Gram negative aminta#2 Enterococcus/Streptococcus sp 02/13/21 16:26 Blood - Venous Blood Culture - Preliminary No growth after 24 hours. Assessment and Plan (1) MRSA bacteremia: Status: Acute This MRSA bacteremia was two months ago Apparently it has cleared 1/2 multiple organisms blood likely contaminant (2) Opiate abuse, continuous: Status: Inactive Stop Vancomycin Cover 3-5 d Zosyn aspiration then po Augmentin for a week Pull [facility] Help with addiction
[2021-02-15 16:45] LABS: Vancomycin Trough 13.9 mcg/mL (10.0-20.0)
--- NOTE | 2021-02-15 17:40 | HO.MIDLINE_ITS ---
PICC Line Insertion MIDLINE INSERTION Diagnosis: POOR IV ACCESS Indication: NEEDS IV ACCESS FOR CONTINUED TX Pertinent Labs: REVIEWED Technique: Using sterile technique including cap and mask, glove and drape, the RIGHT arm was prepped and draped in the usual sterile fashion of full barrier technique with CHG. Using ultrasound guidance, BASILIC vein access was obtained IN SINGLE ATTEMPT BY THIS RN. A SINGLE LUMEN, NON-PASV, (20G X 8CM) MIDLINE was positioned. The procedure was performed in LA-1. Ultrasound was used to document vein patency and for needle entry. A formal ultrasound picture was recorded. [employer] has released the line for use and it is currently dressed with a StatLock, Tegaderm, and CHG disc. Verification has been performed for blood return and line patency. Arm Circumference: 31.5 CM Equipment: [employer] POWERGLIDE PRO Catheter Type: SINGLE LUMEN, NONPASV, (20G X 8CM) Lot #: [id number]
[2021-02-15] MEDS: QUEtiapine Fumarate 400 MG TABLET PO (20:42)
[2021-02-15] MEDS: Caspofungin Acetate 70 MG in 0.9 % Sodium Chloride 250 ML 250 MG IV (20:43)
[2021-02-15] MEDS: Prazosin HCL 1 MG CAPSULE 3 MG PO (20:49)
[2021-02-16] VITALS (8 sets, daily range): BP systolic 132–150; BP diastolic 76–94; PULSE 51–63; RESP 16–20; TEMP 36.5–37.1; O2SAT 92–96
[2021-02-16] MEDS: Piperacillin Sodium/Tazobactam 3.375 GM in 0.9 % Sodium Chloride 50 ML IV ×4 (05:30→23:36)
--- NOTE | 2021-02-16 08:00 | ECG_ITS ---
Test Reason : check QT interval=- methadone + aripiprazole Blood Pressure : / mmHG Vent. Rate : 048 BPM Atrial Rate : 048 BPM P-R Int : 150 ms QRS Dur : 076 ms QT Int : 482 ms P-R-T Axes : 039 013 029 degrees QTc Int : 430 ms Sinus bradycardia Otherwise normal ECG When compared with ECG of 13-FEB-2021 15:28, Heart rate has decreased Premature ventricular complexes are no longer Present Referred By: Wilder Sibley Electronically Signed By:EDUARDO SHEPPARD
--- NOTE | 2021-02-16 08:58 | MHC.RECOVSUP ---
Recovery Support note: This display card writer followed up with patient to check in and discuss recovery. Patient reports she is doing well with the methadone and that she wants to go to a TSS after discharge. Patient reports she has been to [facility] in [place] and has found it to be very helpful. Patient reports they know me very well over there. Patient wants to return to this program if possible. This display card writer explained that they are not open to referrals over the weekend but that we can start the process on Thursday if appropriate. Patient reports no complaints or concerns at this time. Encouraged patient to reach out to nursing staff if she needs anything.
[2021-02-16] MEDS: cloNIDine HCL 0.1 MG TABLET PO ×2 (10:20→20:52)
[2021-02-16] MEDS: Gabapentin 100 MG CAPSULE 200 MG PO ×3 (10:20→20:52)
[2021-02-16] MEDS: Docusate Sodium 100 MG CAPSULE PO ×2 (10:21→20:52)
[2021-02-16] MEDS: Topiramate 100 MG TABLET 200 MG PO ×2 (10:21→20:52)
[2021-02-16] MEDS: Enoxaparin Sodium 80 MG/0.8 ML SYRINGE 75 MG SUBCUT ×2 (10:21→22:02)
[2021-02-16] MEDS: amLODIPine Besylate 10 MG TABLET PO (10:21)
[2021-02-16] MEDS: Aspirin 81 MG TAB.CHEW PO (10:21)
[2021-02-16] MEDS: methADONE HCl 20 MG/2 ML ORAL.CONC 40 MG PO (10:22)
[2021-02-16] MEDS: ARIPiprazole 5 MG TABLET 7.5 MG PO (10:27)
--- NOTE | 2021-02-16 10:32 | P.PNIM_ITS ---
Subjective Subjective Date of Service: 02/16/21 Interval History: 1/2 peripheral BCx with multiple organisms [Enterococcus, Pseudomonas, 1 other GNR] 1/2 peripheral BCx with yeast 1/2 [facility] BCx with yeast -> removed, midline placed no fever chest pain improved no lightheadedness withdrawal symptoms improved Review of Systems Review of Systems: Yes all other systems are reviewed and are negative Physical Exam Vital Signs: Vital Signs: Last Vital Signs Temp 98.2 F 02/16/21 07:09 Pulse 59 02/16/21 10:21 Resp 18 02/16/21 07:09 BP 143/94 H 02/16/21 10:21 Pulse Ox 94 02/16/21 07:09 Body Mass Index 24.6 Gen: chronically ill-appearing HEENT: sclera anicteric, moist mucus membranes Neck: supple Lungs: scattered inspiratory crackles Heart: bardycardic, no murmurs Abd: soft, non-tender, non-distended Ext: 1+ leg edema bilaterally, RUE midline catheter Skin: excoriated Neuro: alert and oriented x3, no focal findings Psych: restricted affect Objective Data Active Medications Albuterol/Ipratropium (Albuterol/Iprat 2.5/0.5mg 3 Ml Ampul.Neb) 3 ml INHALE RQ4H PRN PRN Reason: Shortness of Breath/Wheezing Amlodipine Besylate (Amlodipine Besylate 10 Mg Tablet) 10 mg PO DAILY [facility]; Protocol Last Admin: 02/16/21 10:21 Dose: 10 mg Documented by: ILIA Aripiprazole (Aripiprazole 5 Mg Tablet) 7.5 mg PO DAILY [facility] Last Admin: 02/16/21 10:27 Dose: 7.5 mg Documented by: ILIA Aspirin (Aspirin 81 Mg Tab.Chew) 81 mg PO DAILY [facility] Last Admin: 02/16/21 10:21 Dose: 81 mg Documented by: ILIA Clonidine HCl (Clonidine Hcl 0.1 Mg Tablet) 0.1 mg PO BID [facility]; Protocol Last Admin: 02/16/21 10:20 Dose: 0.1 mg Documented by: ILIA Heparin Sodium (Porcine) 50 (units/ Sodium Chloride 5 ml) 0 units IVFLUSH TID [facility] Last Admin: 02/16/21 10:10 Dose: Not Given Documented by: HO.DOBROB Non-Admin Reason: IV Running Docusate Sodium (Docusate Sodium 100 Mg Capsule) 100 mg PO BID [facility] Last Admin: 02/16/21 10:21 Dose: 100 mg Documented by: ILIA Enoxaparin Sodium (Enoxaparin Sodium 80 Mg/0.8 Ml Syringe) 75 mg SUBCUT Q12H [facility] Last Admin: 02/16/21 10:21 Dose: 75 mg Documented by: ILIA Gabapentin (Gabapentin 100 Mg Capsule) 200 mg PO TID [facility] Last Admin: 02/16/21 10:20 Dose: 200 mg Documented by: ILIA Sodium Chloride (Ns) 1,000 mls @ 100 mls/hr IVCONT .Q10H [facility] Last Admin: 02/15/21 22:56 Dose: 100 mls/hr Documented by: AGUSTINA Piperacillin Sod/Tazobactam (Sod 3.375 gm/ Sodium Chloride) 50 mls @ 100 mls/hr IV Q6H [facility] Last Infusion: 02/16/21 06:20 Dose: 0 mls/hr Documented by: AGUSTINA Caspofungin 50 mg/ Sodium (Chloride) 250 mls @ 250 mls/hr IV Q24H [facility] Melatonin (Melatonin 3 Mg Tablet) 6 mg PO BEDTIME PRN PRN Reason: Insomnia Methadone HCl (Methadone Hcl 20 Mg/2 Ml Oral.Conc) 40 mg PO DAILY [facility] Last Admin: 02/16/21 10:22 Dose: 40 mg Documented by: ILIA Ondansetron HCl (Ondansetron Hcl 4 Mg/2 Ml Vial) 4 mg IVPUSH Q8H PRN PRN Reason: Nausea and Vomiting Oxycodone HCl (Oxycodone Hcl Immed Release 5 Mg Tablet) 5 mg PO Q6H PRN PRN Reason: Pain, Severe (Pain Scale 7-10) Last Admin: 02/15/21 10:54 Dose: 5 mg Documented by: KT Pharmacy Consult (Consult Rx Perform Med Rec) 1 each MISCELLANE ONCE PRN PRN Reason: Consult order Pharmacy Consult (Consult Rx Vancomycin Dosing) 1 each MISCELLANE DAILY PRN PRN Reason: Consult order Prazosin HCl (Prazosin Hcl 1 Mg Capsule) 3 mg PO BEDTIME [facility]; Protocol Last Admin: 02/15/21 20:49 Dose: 3 mg Documented by: AGUSTINA Quetiapine Fumarate (Quetiapine Fumarate 400 Mg Tablet) 400 mg PO BEDTIME [facility] Last Admin: 02/15/21 20:42 Dose: 400 mg Documented by: AGUSTINA Senna (Sennosides 8.6 Mg Tablet) 17.2 mg PO BEDTIME PRN PRN Reason: Constipation Sodium Chloride (0.9 % Sodium Chloride Flush 3 Ml Syringe) 3 ml IVFLUSH QSHIFT [facility] Last Admin: 02/16/21 10:10 Dose: Not Given Documented by: ILIA Non-Admin Reason: IV Running Sumatriptan Succinate (Sumatriptan Succinate 50 Mg Tablet) 50 mg PO Q2H PRN PRN Reason: Migraine Headache Topiramate (Topiramate 100 Mg Tablet) 200 mg PO BID [facility] Last Admin: 02/16/21 10:21 Dose: 200 mg Documented by: ILIA Labs CBC & Chem 7: 02/15/21 08:01 02/15/21 08:01 Labs: Laboratory Results - last 24 hr 02/15/21 02/15/21 08:01 16:07 Vancomycin Trough 13.9 HIV 1&2 Ab/P24 Ag 4thGn Nonreactive Microbiology Microbiology Results: Microbiology 02/13/21 16:11 Blood Culture - Preliminary Blood - Venous Pseudomonas aeruginosa Enterococcus faecalis Gram negative aminta 02/14/21 11:49 Blood Culture - Preliminary Blood - Central Line Prelim: Yeast Gram Stain only 02/13/21 16:26 Blood Culture - Preliminary Blood - Venous Prelim: Yeast Gram Stain only 02/14/21 11:49 Blood Culture - Preliminary Blood - Central Line No growth after 24 hours. Echocardiogram Echocardiogram Results: TTE 02/15/21 -?Normal left ventricular size and systolic function.? - Normal right ventricular cavity size and systolic function.? ? - The left atrium is severely dilated. ? - Significantly elevated right atrial pressure.? Mild to moderate pulmonary hypertension is present. ? - There is mild to moderate mitral valve regurgitation.? - There is mild dilatation of the ascending aorta. ? ?? Assessment and Plan (1) Septic embolism: Status: Acute (2) DVT (deep venous thrombosis): Status: Acute (3) Antiphospholipid antibody positive: Status: Acute (4) MRSA bacteremia: Status: Acute Assessment and Plan: hospital d#4 40yo F with IDU, APLAS/RALPH complicated by CVA and multiple DVT/PE [s/p IVC filter, off anticoagulation since episode of menorrhagia in 2014], HTN, CKD, HCV, bipolar depression, PTSD recently admitted to [facility] 12/21/20 for MRSA bacteremia complicated by hypoxia requiring transfer to MICU, hospitalization complicated by bilateral empyema s/p bilateral chest tube placement, [place] [facility] [place] but did not require VATS discharged to rehab for IV ABX with planned end date of 02/13/21 but left AMA 3wk prematurely and has been abusing heroin presented to [facility] with chest pain, found to be septic with septic pulmonary emboli, left popliteal DVT, questionable bacteremia but definite candidemia # sepsis # bacteremia, not # candidemia # aspiration PNA - 1/2 peripheral BCx multiple organisms -> contaminant - 1/2 peripheral BCx yeast, 1/2 BCx from [facility] yeast -> caspofungin d#2, follow speciation + susceptibilities, surveillance BCx tomorrow - follow cath tip Cx from [facility] removed 02/15 - d/c vanc, continue pip/zackary d#09/08 [OK to complete with amox/clav once d/c'ed] - ID following # LLE DVT # APLAS - LMWH 1 mg/kg q12h, Hematology consult, eventual transition to warfarin # bradycardia - asymptomatic, probably due to clonidine + prazosin # anemia of chronic disease - monitor # opioid use disorder - methadone, Addiction Medicine following - check QTc on EKG today - HIV screen negative, rescreen HCV with viral load # troponin elevation - flat, likely due to sepsis # hypoK - repleted # HTN - continue amlodipine # CKD3 - SCr stable, monitor # mood disorder - continue topiramate, clonidine, prazosin, aripiprazole, quetiapine; appreciate psych consult # dispo - will need STR for long-term IV ABX Quality Stroke Does the patient have a stroke diagnosis?: No VTE Prior VTE?: Yes Approximate Date of Prior VTE: 02/13/21 VTE Risk Level:: Medical - moderate - high VTE Device Contraindication: Treatment Not Indicated VTE Drug Contraindication: N/A - Med Ordered
[2021-02-16] MEDS: Heparin Sodium,Porcine Flush 50 UNITS, 0.9 % Sodium Chloride Flush 5 ML IVFLUSH ×2 (16:09→22:01)
[2021-02-16] MEDS: 0.9 % Sodium Chloride Flush 3 ML SYRINGE IVFLUSH ×2 (16:10→23:40)
[2021-02-16] MEDS: Caspofungin Acetate 50 MG in 0.9 % Sodium Chloride 250 ML 250 MG IV (20:45)
[2021-02-16] MEDS: Prazosin HCL 1 MG CAPSULE 3 MG PO (20:52)
[2021-02-16] MEDS: QUEtiapine Fumarate 400 MG TABLET PO (20:52)
[2021-02-17 04:00] VITALS: BP 130/74; PULSE 52; RESP 18; TEMP 36.3; O2SAT 92
[2021-02-17] MEDS: Piperacillin Sodium/Tazobactam 3.375 GM in 0.9 % Sodium Chloride 50 ML IV ×4 (05:48→23:10)
[2021-02-17 07:10] VITALS: BP 151/78; PULSE 54; RESP 18; TEMP 36.8; O2SAT 93
[2021-02-17] MEDS: 0.9 % Sodium Chloride Flush 3 ML SYRINGE IVFLUSH ×3 (08:39→21:07)
[2021-02-17] MEDS: ARIPiprazole 5 MG TABLET 7.5 MG PO (08:40)
[2021-02-17] MEDS: methADONE HCl 20 MG/2 ML ORAL.CONC 40 MG PO (08:40)
[2021-02-17] MEDS: Heparin Sodium,Porcine Flush 50 UNITS, 0.9 % Sodium Chloride Flush 5 ML IVFLUSH ×3 (08:40→21:08)
[2021-02-17 08:41] VITALS: BP 151/78; PULSE 54
[2021-02-17] MEDS: amLODIPine Besylate 10 MG TABLET PO (08:41)
[2021-02-17] MEDS: Gabapentin 100 MG CAPSULE 200 MG PO ×3 (08:41→21:07)
[2021-02-17] MEDS: cloNIDine HCL 0.1 MG TABLET PO ×2 (08:41→21:07)
[2021-02-17] MEDS: Aspirin 81 MG TAB.CHEW PO (08:41)
[2021-02-17] MEDS: Topiramate 100 MG TABLET 200 MG PO ×2 (08:41→21:07)
[2021-02-17] MEDS: Docusate Sodium 100 MG CAPSULE PO ×2 (08:42→21:07)
[2021-02-17] MEDS: oxyCODONE HCl Immed Release 5 MG TABLET PO (08:56)
--- NOTE | 2021-02-17 10:36 | HO.PM.IMPN ---
Subjective Subjective Date of Service: 02/17/21 Interval History: still c/o pleuritic chest pain no fever Review of Systems Review of Systems: Yes all other systems are reviewed and are negative Physical Exam Vital Signs: Vital Signs: Last Vital Signs Temp 98.3 F 02/17/21 07:10 Pulse 54 02/17/21 08:41 Resp 18 02/17/21 07:10 BP 151/78 H 02/17/21 08:41 Pulse Ox 93 02/17/21 07:10 Body Mass Index 24.6 Gen: chronically ill-appearing HEENT: sclera anicteric, moist mucus membranes Neck: supple Lungs: scattered inspiratory crackles Heart: bardycardic, no murmurs Abd: soft, non-tender, non-distended Ext: no leg edema RUE midline catheter Skin: excoriated Neuro: alert and oriented x3, no focal findings Psych: restricted affect Objective Data Active Medications Albuterol/Ipratropium (Albuterol/Iprat 2.5/0.5mg 3 Ml Ampul.Neb) 3 ml INHALE RQ4H PRN PRN Reason: Shortness of Breath/Wheezing Amlodipine Besylate (Amlodipine Besylate 10 Mg Tablet) 10 mg PO DAILY [facility]; Protocol Last Admin: 02/17/21 08:41 Dose: 10 mg Documented by: ILIA Aripiprazole (Aripiprazole 5 Mg Tablet) 7.5 mg PO DAILY [facility] Last Admin: 02/17/21 08:40 Dose: 7.5 mg Documented by: ILIA Aspirin (Aspirin 81 Mg Tab.Chew) 81 mg PO DAILY [facility] Last Admin: 02/17/21 08:41 Dose: 81 mg Documented by: ILIA Clonidine HCl (Clonidine Hcl 0.1 Mg Tablet) 0.1 mg PO BID [facility]; Protocol Last Admin: 02/17/21 08:41 Dose: 0.1 mg Documented by: ILIA Heparin Sodium (Porcine) 50 (units/ Sodium Chloride 5 ml) 0 units IVFLUSH TID [facility] Last Admin: 02/17/21 08:40 Dose: 50 unit Documented by: ILIA Docusate Sodium (Docusate Sodium 100 Mg Capsule) 100 mg PO BID [facility] Last Admin: 02/17/21 08:42 Dose: 100 mg Documented by: ILIA Enoxaparin Sodium (Enoxaparin Sodium 80 Mg/0.8 Ml Syringe) 75 mg SUBCUT Q12H [facility] Last Admin: 02/16/21 22:02 Dose: 75 mg Documented by: WILBERT Gabapentin (Gabapentin 100 Mg Capsule) 200 mg PO TID [facility] Last Admin: 02/17/21 08:41 Dose: 200 mg Documented by: ILIA Piperacillin Sod/Tazobactam (Sod 3.375 gm/ Sodium Chloride) 50 mls @ 100 mls/hr IV Q6H [facility] Last Infusion: 02/17/21 06:37 Dose: 0 mls/hr Documented by: WILBERT Caspofungin 50 mg/ Sodium (Chloride) 250 mls @ 250 mls/hr IV Q24H [facility] Last Infusion: 02/16/21 22:05 Dose: 0 mls/hr Documented by: WILBERT Melatonin (Melatonin 3 Mg Tablet) 6 mg PO BEDTIME PRN PRN Reason: Insomnia Methadone HCl (Methadone Hcl 20 Mg/2 Ml Oral.Conc) 40 mg PO DAILY [facility] Last Admin: 02/17/21 08:40 Dose: 40 mg Documented by: ILIA Ondansetron HCl (Ondansetron Hcl 4 Mg/2 Ml Vial) 4 mg IVPUSH Q8H PRN PRN Reason: Nausea and Vomiting Oxycodone HCl (Oxycodone Hcl Immed Release 5 Mg Tablet) 5 mg PO Q6H PRN PRN Reason: Pain, Severe (Pain Scale 7-10) Last Admin: 02/17/21 08:56 Dose: 5 mg Documented by: ILIA Pharmacy Consult (Consult Rx Perform Med Rec) 1 each MISCELLANE ONCE PRN PRN Reason: Consult order Pharmacy Consult (Consult Rx Vancomycin Dosing) 1 each MISCELLANE DAILY PRN PRN Reason: Consult order Prazosin HCl (Prazosin Hcl 1 Mg Capsule) 3 mg PO BEDTIME [facility]; Protocol Last Admin: 02/16/21 20:52 Dose: 3 mg Documented by: WILBERT Quetiapine Fumarate (Quetiapine Fumarate 400 Mg Tablet) 400 mg PO BEDTIME [facility] Last Admin: 02/16/21 20:52 Dose: 400 mg Documented by: WILBERT Senna (Sennosides 8.6 Mg Tablet) 17.2 mg PO BEDTIME PRN PRN Reason: Constipation Sodium Chloride (0.9 % Sodium Chloride Flush 3 Ml Syringe) 3 ml IVFLUSH QSHIFT [facility] Last Admin: 02/17/21 08:39 Dose: 3 ml Documented by: BRONick Sumatriptan Succinate (Sumatriptan Succinate 50 Mg Tablet) 50 mg PO Q2H PRN PRN Reason: Migraine Headache Topiramate (Topiramate 100 Mg Tablet) 200 mg PO BID [facility] Last Admin: 02/17/21 08:41 Dose: 200 mg Documented by: ILIA Labs CBC & Chem 7: 02/15/21 08:01 02/15/21 08:01 Microbiology Microbiology Results: Microbiology 02/15/21 Unknown Catheter Tip Culture - Preliminary Catheter Tip - Other Gram negative aminta 02/13/21 16:11 Blood Culture - Preliminary Blood - Venous Pseudomonas aeruginosa Enterococcus faecalis Acinetobacter haemolyticus 02/13/21 16:26 Blood Culture - Final Blood - Venous Sandy albicans 02/14/21 11:49 Blood Culture - Preliminary Blood - Central Line Yeast 02/14/21 11:49 Blood Culture - Preliminary Blood - Central Line No growth after 48 hours. Assessment and Plan (1) Septic embolism: Status: Acute (2) DVT (deep venous thrombosis): Status: Acute (3) Antiphospholipid antibody positive: Status: Acute (4) MRSA bacteremia: Status: Acute Assessment and Plan: hospital d#5 40yo F with IDU, APLAS/RALPH complicated by CVA and multiple DVT/PE [s/p IVC filter, off anticoagulation since episode of menorrhagia in 2014], HTN, CKD, HCV, bipolar depression, PTSD recently admitted to [facility] 12/21/20 for MRSA bacteremia complicated by hypoxia requiring transfer to MICU, hospitalization complicated by bilateral empyema s/p bilateral chest tube placement, transferred to [facility] [place] for Thoracic evaluation but did not require VATS discharged to rehab for IV ABX with planned end date of 02/13/21 but left AMA 3wk prematurely and has been abusing heroin presented to [facility] with chest pain, found to be septic with septic pulmonary emboli, left popliteal DVT, questionable bacteremia but definite candidemia # sepsis # bacteremia, not # candidemia # aspiration PNA - 1/2 peripheral BCx multiple organisms -> contaminant - 1/2 peripheral BCx yeast, 1/2 BCx from [facility] yeast -> caspofungin d#3, follow speciation [C. albicans from peripheral BCx] + susceptibilities and possibly switch to fluconazole with QTc monitoring, surveillance BCx drawn today - follow cath tip Cx from [facility] removed 02/15 -> yeast, GNR - d/c vanc'ed, continue pip/zackary d#10/08 [OK to complete with amox/clav once d/c'ed] - ID following # LLE DVT # APLAS - LMWH 1 mg/kg q12h, Hematology consult, eventual transition to warfarin # bradycardia - asymptomatic, probably due to clonidine + prazosin # anemia of chronic disease - monitor # opioid use disorder - methadone, Addiction Medicine following - QTc 430 ms yesterday - HIV screen negative, rescreen HCV with viral load # troponin elevation - flat, likely due to sepsis # hypoK - repleted # HTN - continue amlodipine # CKD3 - SCr stable, monitor # mood disorder - continue topiramate, clonidine, prazosin, aripiprazole, quetiapine; appreciate psych consult # dispo - will need STR for long-term IV ABX Quality Stroke Does the patient have a stroke diagnosis?: No VTE Prior VTE?: Yes Approximate Date of Prior VTE: 02/13/21 VTE Risk Level:: Medical - moderate - high VTE Device Contraindication: Treatment Not Indicated VTE Drug Contraindication: N/A - Med Ordered
[2021-02-17] MEDS: Enoxaparin Sodium 80 MG/0.8 ML SYRINGE 75 MG SUBCUT ×2 (11:26→21:08)
[2021-02-17 11:34] VITALS: BP 125/77; PULSE 49; RESP 18; TEMP 37; O2SAT 94
[2021-02-17 15:14] VITALS: BP 128/80; PULSE 64; RESP 16; TEMP 37.1; O2SAT 94
[2021-02-17] MEDS: Caspofungin Acetate 50 MG in 0.9 % Sodium Chloride 250 ML 250 MG IV (18:44)
[2021-02-17 20:00] VITALS: BP 139/79; PULSE 51; RESP 18; TEMP 36.9; O2SAT 94
[2021-02-17] MEDS: Prazosin HCL 1 MG CAPSULE 3 MG PO (21:06)
[2021-02-17] MEDS: QUEtiapine Fumarate 400 MG TABLET PO (21:07)
[2021-02-18] VITALS (9 sets, daily range): BP systolic 108–147; BP diastolic 67–87; PULSE 47–55; RESP 18–20; TEMP 35.5–37.2; O2SAT 92–98
[2021-02-18] MEDS: Piperacillin Sodium/Tazobactam 3.375 GM in 0.9 % Sodium Chloride 50 ML IV ×4 (06:13→23:00)
--- NOTE | 2021-02-18 08:00 | ECG_ITS ---
Test Reason : QTC CHECK Blood Pressure : / mmHG Vent. Rate : 052 BPM Atrial Rate : 052 BPM P-R Int : 194 ms QRS Dur : 078 ms QT Int : 482 ms P-R-T Axes : 048 013 028 degrees QTc Int : 448 ms Sinus bradycardia Otherwise normal ECG When compared with ECG of 16-FEB-2021 17:41, No significant change was found Referred By: Wilder Sibley Electronically Signed By:EDUARDO SHEPPARD
--- NOTE | 2021-02-18 10:35 | HO.PM.IMPN ---
Subjective Subjective Date of Service: 02/18/21 Interval History: Coughing green sputum. C/o pleuritic chest pain. No fever. Opioid withdrawal improved. Review of Systems Review of Systems: Yes all other systems are reviewed and are negative Physical Exam Vital Signs: Vital Signs: Last Vital Signs Temp 96 F L 02/18/21 07:09 Pulse 55 02/18/21 09:21 Resp 18 02/18/21 07:09 BP 127/77 02/18/21 09:21 Pulse Ox 92 02/18/21 09:21 Body Mass Index 24.6 Gen: chronically ill-appearing HEENT: sclera anicteric, moist mucus membranes Neck: supple Lungs: scattered inspiratory crackles Heart: bardycardic, no murmurs Abd: soft, non-tender, non-distended Ext: no leg edema, RUE midline catheter without signs on infection Skin: excoriated Neuro: alert and oriented x3, no focal findings Psych: restricted affect Objective Data Active Medications Albuterol/Ipratropium (Albuterol/Iprat 2.5/0.5mg 3 Ml Ampul.Neb) 3 ml INHALE RQ4H PRN PRN Reason: Shortness of Breath/Wheezing Amlodipine Besylate (Amlodipine Besylate 10 Mg Tablet) 10 mg PO DAILY [facility]; Protocol Last Admin: 02/17/21 08:41 Dose: 10 mg Documented by: ILIA Aripiprazole (Aripiprazole 5 Mg Tablet) 7.5 mg PO DAILY [facility] Last Admin: 02/17/21 08:40 Dose: 7.5 mg Documented by: ILIA Aspirin (Aspirin 81 Mg Tab.Chew) 81 mg PO DAILY [facility] Last Admin: 02/17/21 08:41 Dose: 81 mg Documented by: ILIA Clonidine HCl (Clonidine Hcl 0.1 Mg Tablet) 0.1 mg PO BID [facility]; Protocol Last Admin: 02/17/21 21:07 Dose: 0.1 mg Documented by: ANTOIC Heparin Sodium (Porcine) 50 (units/ Sodium Chloride 5 ml) 0 units IVFLUSH TID [facility] Last Admin: 02/17/21 21:08 Dose: 50 unit Documented by: SINTIAOIC Docusate Sodium (Docusate Sodium 100 Mg Capsule) 100 mg PO BID [facility] Last Admin: 02/17/21 21:07 Dose: 100 mg Documented by: ANTKARINA Enoxaparin Sodium (Enoxaparin Sodium 80 Mg/0.8 Ml Syringe) 75 mg SUBCUT Q12H [facility] Last Admin: 02/17/21 21:08 Dose: 75 mg Documented by: ANTOIC Gabapentin (Gabapentin 100 Mg Capsule) 200 mg PO TID [facility] Last Admin: 02/17/21 21:07 Dose: 200 mg Documented by: ANTOIC Piperacillin Sod/Tazobactam (Sod 3.375 gm/ Sodium Chloride) 50 mls @ 100 mls/hr IV Q6H [facility] Last Infusion: 02/18/21 06:39 Dose: 0 mls/hr Documented by: ANTOIC Caspofungin 50 mg/ Sodium (Chloride) 250 mls @ 250 mls/hr IV Q24H [facility] Last Infusion: 02/17/21 20:25 Dose: 0 mls/hr Documented by: ANTKARINA Melatonin (Melatonin 3 Mg Tablet) 6 mg PO BEDTIME PRN PRN Reason: Insomnia Methadone HCl (Methadone Hcl 20 Mg/2 Ml Oral.Conc) 45 mg PO DAILY [facility] Ondansetron HCl (Ondansetron Hcl 4 Mg/2 Ml Vial) 4 mg IVPUSH Q8H PRN PRN Reason: Nausea and Vomiting Oxycodone HCl (Oxycodone Hcl Immed Release 5 Mg Tablet) 5 mg PO Q6H PRN PRN Reason: Pain, Severe (Pain Scale 7-10) Last Admin: 02/17/21 08:56 Dose: 5 mg Documented by: ILIA Pharmacy Consult (Consult Rx Perform Med Rec) 1 each MISCELLANE ONCE PRN PRN Reason: Consult order Pharmacy Consult (Consult Rx Vancomycin Dosing) 1 each MISCELLANE DAILY PRN PRN Reason: Consult order Prazosin HCl (Prazosin Hcl 1 Mg Capsule) 3 mg PO BEDTIME [facility]; Protocol Last Admin: 02/17/21 21:06 Dose: 3 mg Documented by: ANTKARINA Quetiapine Fumarate (Quetiapine Fumarate 400 Mg Tablet) 400 mg PO BEDTIME [facility] Last Admin: 02/17/21 21:07 Dose: 400 mg Documented by: ANTOIC Senna (Sennosides 8.6 Mg Tablet) 17.2 mg PO BEDTIME PRN PRN Reason: Constipation Sodium Chloride (0.9 % Sodium Chloride Flush 3 Ml Syringe) 3 ml IVFLUSH QSHIFT [facility] Last Admin: 02/17/21 21:07 Dose: 3 ml Documented by: JORDAN Sumatriptan Succinate (Sumatriptan Succinate 50 Mg Tablet) 50 mg PO Q2H PRN PRN Reason: Migraine Headache Topiramate (Topiramate 100 Mg Tablet) 200 mg PO BID [facility] Last Admin: 02/17/21 21:07 Dose: 200 mg Documented by: JORDAN Labs CBC & Chem 7: 02/15/21 08:01 02/15/21 08:01 Labs: Microbiology 02/14/21 11:49 Blood - Central Line Blood Culture - Preliminary Yeast 02/15/21 Unknown Catheter Tip - Other Catheter Tip Culture - Final Enterobacter cloacae complex 02/16/21 10:50 Blood - Venous Blood Culture - Preliminary No growth after 24 hours. 02/16/21 10:45 Blood - Venous Blood Culture - Preliminary No growth after 24 hours. 02/13/21 16:11 Blood - Venous Blood Culture - Preliminary Pseudomonas aeruginosa Enterococcus faecalis Acinetobacter haemolyticus 02/13/21 16:26 Blood - Venous Blood Culture - Final Sandy albicans 02/14/21 11:49 Blood - Central Line Blood Culture - Preliminary No growth after 48 hours. Microbiology Microbiology Results: Microbiology 02/14/21 11:49 Blood Culture - Preliminary Blood - Central Line Yeast 02/15/21 Unknown Catheter Tip Culture - Final Catheter Tip - Other Enterobacter cloacae complex 02/16/21 10:50 Blood Culture - Preliminary Blood - Venous No growth after 24 hours. 02/16/21 10:45 Blood Culture - Preliminary Blood - Venous No growth after 24 hours. 02/13/21 16:11 Blood Culture - Preliminary Blood - Venous Pseudomonas aeruginosa Enterococcus faecalis Acinetobacter haemolyticus 02/13/21 16:26 Blood Culture - Final Blood - Venous Sandy albicans Assessment and Plan (1) Septic embolism: Status: Acute (2) DVT (deep venous thrombosis): Status: Acute (3) Antiphospholipid antibody positive: Status: Acute (4) MRSA bacteremia: Status: Acute Assessment and Plan: hospital d#6 40yo F with IDU, APLAS/RALPH complicated by CVA and multiple DVT/PE [s/p IVC filter, off anticoagulation since episode of menorrhagia in 2014], HTN, CKD, HCV, bipolar depression, PTSD recently admitted to [facility] 12/21/20 for MRSA bacteremia complicated by hypoxia requiring transfer to MICU, hospitalization complicated by bilateral empyema s/p bilateral chest tube placement, transferred to [facility] for Thoracic evaluation but did not require VATS discharged to rehab for IV ABX with planned end date of 02/13/21 but left AMA 3wk prematurely and has been abusing heroin presented to [facility] with chest pain, found to be septic with septic pulmonary emboli, left popliteal DVT, questionable bacteremia but definite candidemia # sepsis # bacteremia, not # candidemia # aspiration PNA - 02/13: 1/2 peripheral BCx multiple organisms -> contaminant - 02/13: 1/2 peripheral BCx Sandy albicans; 1/2 BCx from [facility] yeast -> caspofungin d#4, follow speciation+ susceptibilities from [facility] and possibly switch to fluconazole with QTc monitoring - 02/15: [facility] cath tip Cx: <15 cFU/mL Enterobacter cloacae - 02/16: BCx NGTD - d/c'ed vanco, continue pip/zackary d#11/08 [OK to complete with amox/clav once d/c'ed] - ID following # LLE DVT # APLAS - LMWH 1 mg/kg q12h, will start warfarin, Hematology consult # bradycardia - asymptomatic, probably due to clonidine + prazosin # anemia of chronic disease - monitor # opioid use disorder - methadone, Addiction Medicine following - QTc 430 ms yesterday - HIV screen negative, rescreen HCV with viral load [previously treated and cured with DAAs, may have been reinfected] # troponin elevation - flat, likely due to sepsis # hypoK - repleted # HTN - continue amlodipine # CKD3 - SCr stable, monitor # mood disorder - continue topiramate, clonidine, prazosin, aripiprazole, quetiapine; appreciate psych consult # dispo - will need STR for IV antifungal Quality Stroke Does the patient have a stroke diagnosis?: No VTE Prior VTE?: Yes Approximate Date of Prior VTE: 02/13/21 VTE Risk Level:: Medical - moderate - high VTE Device Contraindication: Treatment Not Indicated VTE Drug Contraindication: N/A - Med Ordered
[2021-02-18] MEDS: methADONE HCl 20 MG/2 ML ORAL.CONC 45 MG PO (11:18)
[2021-02-18] MEDS: Docusate Sodium 100 MG CAPSULE PO ×2 (11:19→20:20)
[2021-02-18] MEDS: Enoxaparin Sodium 80 MG/0.8 ML SYRINGE 75 MG SUBCUT (11:19)
[2021-02-18] MEDS: Heparin Sodium,Porcine Flush 50 UNITS, 0.9 % Sodium Chloride Flush 5 ML IVFLUSH ×3 (11:20→20:19)
[2021-02-18] MEDS: cloNIDine HCL 0.1 MG TABLET PO ×2 (11:20→20:20)
[2021-02-18] MEDS: Topiramate 100 MG TABLET 200 MG PO ×2 (11:20→20:20)
[2021-02-18] MEDS: Aspirin 81 MG TAB.CHEW PO (11:20)
[2021-02-18] MEDS: Gabapentin 100 MG CAPSULE 200 MG PO ×3 (11:20→20:20)
[2021-02-18] MEDS: amLODIPine Besylate 10 MG TABLET PO (11:21)
[2021-02-18] MEDS: 0.9 % Sodium Chloride Flush 3 ML SYRINGE IVFLUSH ×3 (11:21→20:19)
[2021-02-18] MEDS: ARIPiprazole 5 MG TABLET 7.5 MG PO (11:24)
[2021-02-18 12:05] LABS: COVID-19 Test Negative (Negative)
--- NOTE | 2021-02-18 12:13 | P.CNHO_ITS ---
Subjective - Subjective Chief complaint: none reported Patient: new to practice Consult date: 02/18/21 Requesting Physician: Dr. Sibley Primary Care Provider: Unknown Physician HPI - Consult Narrative Reason for consult: Lupus anticoagulant syndrome, recurrent DVT/PE. Narrative: Melita Butler is a 40 year old female with multiple medical problems was admitted with chest pain and found to have septic pulmonary emboli and left popliteal vein DVT. She has a history of lupus anticoagulant syndrome, her 1st episode of pulmonary embolism occurred at the age of 14. Since then she has had multiple episodes of DVT/PE and CVA, most of this was managed in [place]. She had an IVC filter placed in 1996. She was on warfarin on and off for many years, this has finally stopped in 2014 when she developed severe menorrhagia. She was just on baby aspirin since 2014. She noticed swelling of the left leg in a few weeks ago. She denies IV drug abuse although she does use illicit drugs. She is currently homeless, she relapsed 3 weeks ago and has been out on the streets. Prior to that she was living with her mother in [place]. She has a 9-year-old child. She is planning to go to inpatient rehabilitation for drug use. She currently denies any chest pain or shortness of breath. Review of Systems - Constitutional Reports as per HPI, Reports lack of energy, Reports malaise, Reports weight loss - Cardiovascular Denies chest pain - Respiratory Reports pain on inspiration - Neurologic Reports no additional neurologic complaints, Denies abnormal speech, Denies dizziness, Denies headache(s), Denies numbness, Denies tingling, Denies weakness [facility] Medical History: Medical History (Last Updated 02/15/21 @ 16:22 by Cecy Espino CNP) DVT (deep venous thrombosis) Carver filter in place Lupus Opiate abuse, continuous Pneumonia Pulmonary emboli Surgical History: Surgical History (Last Reviewed 02/15/21 @ 15:40 by Karen Cobb MD) History of appendectomy Hx of splenectomy Social History: Social History (Last Reviewed 02/15/21 @ 15:40 by Karen Cobb MD) Living Situation History: Household Members: None Housing: Homeless Do you presently have visiting nurse or other home services: No Tobacco History: Patient Tobacco Use Status: Current someday Tobacco Tobacco use type: Cigarette Smoked in Last 30 Days: Yes e-Cigarette/Vaping Use: Currently Using Patient Interested in Nicotine Replacement: No Patient Given Instructions on How to Stop Smoking: No Second Hand Smoke Exposure: Yes Substance Use History: Use of substances other than those prescribed or required for medical reasons : Yes Substance Use Type: Crack/Cocaine Substance Use Type: Opiates Substance Use Frequency: Occasionally Last Used Substance: Days (ago) Currently Displaying Signs/Symptoms of Drug Intoxication Withdrawal: No Any prior treatment program specific to substance use: Yes Domestic Abuse History: Have you been hit, kicked, punched, or otherwise hurt by someone within the past year? If so, by whom?: No Do you feel safe in your current relationship?: Yes Is there a partner from a previous relationship who is making you feel unsafe now?: No Are you made to feel afraid or neglected: No Advance Directives: Advance Directives: No Advance Directives Information Provided: No Homicidal Assessment: Do you have thoughts of harming others: None Do you have a plan to hurt others: No Plan Nutrition Assessment: Recently lost weight without trying: No Nutrition Risks: No Nutritional Risk Patient : No Occupation Assessmet: service: No Current occupational status: employed Home Medications and Allergies Current Medications: Current Medications Albuterol/Ipratropium (Albuterol/Iprat 2.5/0.5mg 3 Ml Ampul.Neb) 3 ml INHALE RQ4H PRN PRN Reason: Shortness of Breath/Wheezing Amlodipine Besylate (Amlodipine Besylate 10 Mg Tablet) 10 mg PO DAILY [facility]; Protocol Last Admin: 02/18/21 11:21 Dose: 10 mg Documented by: Aripiprazole (Aripiprazole 5 Mg Tablet) 7.5 mg PO DAILY [facility] Last Admin: 02/18/21 11:24 Dose: 7.5 mg Documented by: Aspirin (Aspirin 81 Mg Tab.Chew) 81 mg PO DAILY [facility] Last Admin: 02/18/21 11:20 Dose: 81 mg Documented by: Clonidine HCl (Clonidine Hcl 0.1 Mg Tablet) 0.1 mg PO BID [facility]; Protocol Last Admin: 02/18/21 11:20 Dose: 0.1 mg Documented by: Heparin Sodium (Porcine) 50 (units/ Sodium Chloride 5 ml) 0 units IVFLUSH TID [facility] Last Admin: 02/18/21 11:20 Dose: 50 unit Documented by: Docusate Sodium (Docusate Sodium 100 Mg Capsule) 100 mg PO BID [facility] Last Admin: 02/18/21 11:19 Dose: 100 mg Documented by: Enoxaparin Sodium (Enoxaparin Sodium 80 Mg/0.8 Ml Syringe) 75 mg SUBCUT Q12H [facility] Last Admin: 02/18/21 11:19 Dose: 75 mg Documented by: Gabapentin (Gabapentin 100 Mg Capsule) 200 mg PO TID [facility] Last Admin: 02/18/21 11:20 Dose: 200 mg Documented by: Piperacillin Sod/Tazobactam (Sod 3.375 gm/ Sodium Chloride) 50 mls @ 100 mls/hr IV Q6H [facility] Last Infusion: 02/18/21 11:53 Dose: Infused Documented by: Caspofungin 50 mg/ Sodium (Chloride) 250 mls @ 250 mls/hr IV Q24H [facility] Last Infusion: 02/17/21 20:25 Dose: Infused Documented by: Melatonin (Melatonin 3 Mg Tablet) 6 mg PO BEDTIME PRN PRN Reason: Insomnia Methadone HCl (Methadone Hcl 20 Mg/2 Ml Oral.Conc) 45 mg PO DAILY [facility] Last Admin: 02/18/21 11:18 Dose: 45 mg Documented by: Ondansetron HCl (Ondansetron Hcl 4 Mg/2 Ml Vial) 4 mg IVPUSH Q8H PRN PRN Reason: Nausea and Vomiting Oxycodone HCl (Oxycodone Hcl Immed Release 5 Mg Tablet) 5 mg PO Q6H PRN PRN Reason: Pain, Severe (Pain Scale 7-10) Last Admin: 02/17/21 08:56 Dose: 5 mg Documented by: Pharmacy Consult (Consult Rx Perform Med Rec) 1 each MISCELLANE ONCE PRN PRN Reason: Consult order Pharmacy Consult (Consult Rx Vancomycin Dosing) 1 each MISCELLANE DAILY PRN PRN Reason: Consult order Prazosin HCl (Prazosin Hcl 1 Mg Capsule) 3 mg PO BEDTIME [facility]; Protocol Last Admin: 02/17/21 21:06 Dose: 3 mg Documented by: Quetiapine Fumarate (Quetiapine Fumarate 400 Mg Tablet) 400 mg PO BEDTIME [facility] Last Admin: 02/17/21 21:07 Dose: 400 mg Documented by: Senna (Sennosides 8.6 Mg Tablet) 17.2 mg PO BEDTIME PRN PRN Reason: Constipation Sodium Chloride (0.9 % Sodium Chloride Flush 3 Ml Syringe) 3 ml IVFLUSH QSHIFT [facility] Last Admin: 02/18/21 11:21 Dose: 3 ml Documented by: Sumatriptan Succinate (Sumatriptan Succinate 50 Mg Tablet) 50 mg PO Q2H PRN PRN Reason: Migraine Headache Topiramate (Topiramate 100 Mg Tablet) 200 mg PO BID [facility] Last Admin: 02/18/21 11:20 Dose: 200 mg Documented by: Warfarin Sodium (Warfarin Sodium 5 Mg Tablet) 5 mg PO DAILY@1800 [facility] Home Medications Medication Instructions Recorded Confirmed Type albuterol sulfate 90 mcg/actuation 2 puff INHALATION Q6H PRN 02/28/20 02/13/21 History aerosol inhaler famotidine 20 mg tablet 20 mg PO DAILY 02/28/20 02/13/21 History quetiapine 400 mg tablet (Seroquel) 400 mg PO BEDTIME 02/28/20 02/13/21 History amlodipine 10 mg tablet 10 mg PO DAILY 02/13/21 02/13/21 History aspirin 81 mg chewable tablet 81 mg PO DAILY 02/13/21 02/13/21 History clonidine HCl 0.1 mg tablet 0.1 mg PO BID PRN 02/13/21 02/13/21 History melatonin 5 mg tablet 5 mg PO BEDTIME PRN 02/13/21 02/13/21 History sumatriptan succinate 50 mg tablet 50 mg PO Q2H PRN 02/13/21 02/13/21 History (Imitrex) topiramate 200 mg tablet 200 mg PO BID 02/13/21 02/13/21 History aripiprazole 5 mg tablet 7.5 mg PO DAILY 02/15/21 02/15/21 History ferrous sulfate 324 mg (65 mg 324 mg PO DAILY 02/15/21 02/15/21 History iron) tablet,delayed release gabapentin 100 mg capsule 200 mg PO BID 02/15/21 02/15/21 History lidocaine 5 % topical patch 1 patch TOPICAL DAILY 02/15/21 02/15/21 History lorazepam 0.5 mg tablet 0.5 mg PO Q4H PRN 02/15/21 02/15/21 History polyethylene glycol 3350 17 gram 17 g PO DAILY 02/15/21 02/15/21 History oral powder packet (Miralax) prazosin 1 mg capsule 3 mg PO BEDTIME 02/15/21 02/15/21 History vancomycin 1.25 gram intravenous 1.25 g IV Q24H 02/15/21 02/15/21 History solution Allergies Allergy/AdvReac Type Severity Reaction Status Date / Time bee pollen [BEE STINGS] Allergy Severe Anaphylaxis Verified 02/13/21 14:25 codeine [CODEINE] Allergy Severe ANAPHYLAXIS Verified 02/13/21 14:25 Iodinated Contrast Media Allergy Severe DIFFICULTY Verified 02/13/21 14:25 [IV DYE, IODINE CONTAINING BREATHING CONTRAST ] nut - unspecified [nut] Allergy Intermediate Rash Verified 02/13/21 14:25 shellfish derived Allergy Intermediate Rash Verified 02/13/21 14:25 Sulfa (Sulfonamide Allergy Unknown ANAPHYLAXIS Verified 02/13/21 14:25 Antibiotics) [SULFA (SULFONAMIDE ANTIBIOTICS)] Physical Exam Vital signs: Vital Signs Temp 98 F 02/18/21 10:57 Pulse 54 02/18/21 11:21 Resp 20 02/18/21 10:57 BP 147/87 H 02/18/21 11:21 Pulse Ox 95 02/18/21 10:57 Intake & Output 02/17/21 02/18/21 02/18/21 18:59 06:59 18:59 Intake Total 1700 / 2530 830 / 2530 50 / 50 Output Total 1200 / 1200 Balance 500 / 1330 830 / 1330 50 / 50 Urine Output (Average ml/kg/hr) 1.36 1.36 1.36 Intake: Intake, Oral Amount 1600 / 2080 480 / 2080 Intake, IV Amount 100 / 450 350 / 450 50 / 50 Caspofungin Acetate 50 mg In 0. 250 / 250 9 % Sodium Chloride 250 ml @ 250 mls/hr IV Q24H [facility] Rx#: [id number] Piperacillin Sodium/Tazobactam 100 / 200 100 / 200 50 / 50 3.375 gm In 0.9 % Sodium Chloride 50 ml @ 100 mls/hr IV Q6H [facility] Rx#:[id number] Output: Output, Urine Amount 1200 / 1200 Other: Meal Refused No NPO No Breakfast % Eaten 100% Lunch % Eaten 100% Number of Unmeasured Voids 1 Urine Bathroom Bathroom Urine Color Yellow Weight 73.5 kg Hem/Onc Consult Result - Labs CBC & Chem 7: 02/15/21 08:01 02/15/21 08:01 Assessment and Plan Patient Active problem list reviewed?: Yes (1) DVT (deep venous thrombosis) Status: Acute Assessment and plan: 1. This is a 40-year-old woman with lupus anticoagulant syndrome, recurrent episodes of thromboembolism currently admitted for septic pulmonary emboli. She is on IV antibiotics. She has been started on Lovenox 1 mg/kg b.i.d.. Her 1st episode of pulmonary embolism occurred when she was 14 years old. She has been off anticoagulation since 2014, she has been on baby aspirin once daily. She has had an IVC filter placed in 1996. Previously she was managed by temperature inspector in [place]. Bilateral lower extremity Doppler performed 02/13/2021 showed left popliteal vein DVT. She has had several positive lupus anticoagulant tests since 2011. She was taken off warfarin in 2014 because of severe bleeding/menorrhagia. She states that it has always been very difficult to keep her therapeutic and she does not want to resume warfarin for long-term anticoagulation. The newer oral anticoagulants such as DOAc's are contraindicated in patients with lupus anticoagulant syndrome. However there is some data emerging about patients with APLS who are not triple positive or if there is contraindication to warfarin to use rivaroxaban. However studies have shown higher rates of recurrent clots on rivaroxaban compared to warfarin in patients with APLS. Patient has experience giving herself Lovenox injections and would prefer to remain on Lovenox rather than switching to warfarin. After a month, her dose of Lovenox can be switched to 1.5 mg/kg rather than b.i.d. dosing. I thank you for this consultation and will be happy to follow her upon dischar ge. - Time Spent With Patient Time Spent with Patient (in minutes): 20
[2021-02-18 13:31] LABS: Prothrombin Time 11.5 SEC (9.9-13.0)
--- NOTE | 2021-02-18 14:12 | MHC.RECOVRN ---
T/w met with pt to f/u after methadone dose increase this morning, 5 mg, for a total of 45 mg. Pt reports feeling good but has new nasal congestion. Pt concerned regarding d/c, specifically d/c without a plan. Pt aware group home abx are likely. If pt is d/c with PO medication, pt would like to go to [facility]. If pt goes to [facility], pt would like to go to [facility] after abx completion. Pt familiar with staff at [facility] and believes acceptance would be guaranteed. Pts referral has been sent to [facility]. Will continue to follow.
--- NOTE | 2021-02-18 17:21 | HO.ADDICTPRO ---
Subjective Subjective Date of Service: 02/18/21 Reason For Visit: PNA, Septic emboli, bradycardia Interim History: reports she is feeling a little better today requesting small increase in methadone dose (currently at 40mg) last increase was Thursday 02/15. still experiencing some nausea and body aches Review of Systems Medical Review of Systems: unchanged Mental Status Exam Mental Status Exam Patient Appearance: Appropriate Patient Orientation: Person, Place, Time and Situation Level of Consciousness: Awake, Appropriate and Alert Patient Behavior: Appropriate Mood Description: Appropriate and Constricted Affect Description: Appropriate and Constricted Thought Process: Intact Thought Content: positive for Intact Judgement: Fair Diagnostics Vital Signs (24Hr): Vital Signs - 24 hr 02/17/21 20:00 02/18/21 00:00 02/18/21 03:13 Temperature 98.4 F 98 F 98.3 F Pulse Rate 51 51 48 L Respiratory Rate 18 18 18 Blood Pressure 139/79 133/81 140/81 H Pulse Oximetry 94 93 93 02/18/21 07:09 02/18/21 09:21 02/18/21 10:57 Temperature 96 F L 98 F Pulse Rate 55 55 54 Respiratory Rate 18 20 Blood Pressure 127/77 127/77 147/87 H Pulse Oximetry 92 92 95 02/18/21 11:20 02/18/21 11:21 02/18/21 15:58 Temperature 98.9 F Pulse Rate 54 54 47 L Respiratory Rate 19 Blood Pressure 147/87 H 147/87 H 108/67 Pulse Oximetry 98 Body Mass Index 24.6 Labs Results: 02/15/21 08:01 02/15/21 08:01 Labs: Laboratory Results - last 48 hr 02/18/21 02/18/21 11:06 13:09 PT 11.5 INR 1.0 COVID-19 ([facility]) Negative COVID-19 Clin Com See Note EKG EKG: reviewed Imaging Radiology Impressions: ITS Impressions Chest X-Ray 02/13/21 15:25 IMPRESSION: Patchy opacities in right upper lobe and right lower lobe and scattered opacity left mid lobe likely developing infiltrates. Right Zaman catheter tip is in mid SVC. Venous Duplex 02/13/21 15:26 IMPRESSION: Left: Left popliteal vein DVT. Right: No evidence of DVT. Chest CT 02/13/21 17:10 IMPRESSION: New patchy bilateral airspace disease some which are cavitary. Focal infectious etiology would be strongly favored with this appearance. Septic emboli could have this distribution and should be clinically correlated.. Catheter Removal 02/15/21 17:10 FINDINGS/IMPRESSION: Successful removal of right Zaman catheter. The tip of the Zaman catheter was sent to pathology for [employer]. There was no immediate bleeding. Medications Medications Current Medications Albuterol/Ipratropium (Albuterol/Iprat 2.5/0.5mg 3 Ml Ampul.Neb) 3 ml INHALE RQ4H PRN PRN Reason: Shortness of Breath/Wheezing Amlodipine Besylate (Amlodipine Besylate 10 Mg Tablet) 10 mg PO DAILY [facility]; Protocol Last Admin: 02/18/21 11:21 Dose: 10 mg Documented by: Aripiprazole (Aripiprazole 5 Mg Tablet) 7.5 mg PO DAILY [facility] Last Admin: 02/18/21 11:24 Dose: 7.5 mg Documented by: Aspirin (Aspirin 81 Mg Tab.Chew) 81 mg PO DAILY [facility] Last Admin: 02/18/21 11:20 Dose: 81 mg Documented by: Clonidine HCl (Clonidine Hcl 0.1 Mg Tablet) 0.1 mg PO BID [facility]; Protocol Last Admin: 02/18/21 11:20 Dose: 0.1 mg Documented by: Heparin Sodium (Porcine) 50 (units/ Sodium Chloride 5 ml) 0 units IVFLUSH TID [facility] Last Admin: 02/18/21 11:20 Dose: 50 unit Documented by: Docusate Sodium (Docusate Sodium 100 Mg Capsule) 100 mg PO BID [facility] Last Admin: 02/18/21 11:19 Dose: 100 mg Documented by: Enoxaparin Sodium (Enoxaparin Sodium 80 Mg/0.8 Ml Syringe) 75 mg SUBCUT Q12H [facility] Last Admin: 02/18/21 11:19 Dose: 75 mg Documented by: Gabapentin (Gabapentin 100 Mg Capsule) 200 mg PO TID [facility] Last Admin: 02/18/21 11:20 Dose: 200 mg Documented by: Piperacillin Sod/Tazobactam (Sod 3.375 gm/ Sodium Chloride) 50 mls @ 100 mls/hr IV Q6H [facility] Last Infusion: 02/18/21 11:53 Dose: Infused Documented by: Caspofungin 50 mg/ Sodium (Chloride) 250 mls @ 250 mls/hr IV Q24H [facility] Last Infusion: 02/17/21 20:25 Dose: Infused Documented by: Melatonin (Melatonin 3 Mg Tablet) 6 mg PO BEDTIME PRN PRN Reason: Insomnia Methadone HCl (Methadone Hcl 20 Mg/2 Ml Oral.Conc) 45 mg PO DAILY [facility] Last Admin: 02/18/21 11:18 Dose: 45 mg Documented by: Ondansetron HCl (Ondansetron Hcl 4 Mg/2 Ml Vial) 4 mg IVPUSH Q8H PRN PRN Reason: Nausea and Vomiting Oxycodone HCl (Oxycodone Hcl Immed Release 5 Mg Tablet) 5 mg PO Q6H PRN PRN Reason: Pain, Severe (Pain Scale 7-10) Last Admin: 02/17/21 08:56 Dose: 5 mg Documented by: Pharmacy Consult (Consult Rx Perform Med Rec) 1 each MISCELLANE ONCE PRN PRN Reason: Consult order Pharmacy Consult (Consult Rx Vancomycin Dosing) 1 each MISCELLANE DAILY PRN PRN Reason: Consult order Prazosin HCl (Prazosin Hcl 1 Mg Capsule) 3 mg PO BEDTIME [facility]; Protocol Last Admin: 02/17/21 21:06 Dose: 3 mg Documented by: Quetiapine Fumarate (Quetiapine Fumarate 400 Mg Tablet) 400 mg PO BEDTIME [facility] Last Admin: 02/17/21 21:07 Dose: 400 mg Documented by: Senna (Sennosides 8.6 Mg Tablet) 17.2 mg PO BEDTIME PRN PRN Reason: Constipation Sodium Chloride (0.9 % Sodium Chloride Flush 3 Ml Syringe) 3 ml IVFLUSH QSHIFT [facility] Last Admin: 02/18/21 11:21 Dose: 3 ml Documented by: Sumatriptan Succinate (Sumatriptan Succinate 50 Mg Tablet) 50 mg PO Q2H PRN PRN Reason: Migraine Headache Topiramate (Topiramate 100 Mg Tablet) 200 mg PO BID [facility] Last Admin: 02/18/21 11:20 Dose: 200 mg Documented by: Warfarin Sodium (Warfarin Sodium 5 Mg Tablet) 5 mg PO DAILY@1800 [facility] Allergies Allergies Allergy/AdvReac Type Severity Reaction Status Date / Time bee pollen [BEE STINGS] Allergy Severe Anaphylaxis Verified 02/13/21 14:25 codeine [CODEINE] Allergy Severe ANAPHYLAXIS Verified 02/13/21 14:25 Iodinated Contrast Media Allergy Severe DIFFICULTY Verified 09/15/21 14:25 [IV DYE, IODINE CONTAINING BREATHING CONTRAST ] nut - unspecified [nut] Allergy Intermediate Rash Verified 02/13/21 14:25 shellfish derived Allergy Intermediate Rash Verified 02/13/21 14:25 Sulfa (Sulfonamide Allergy Unknown ANAPHYLAXIS Verified 02/13/21 14:25 Antibiotics) [SULFA (SULFONAMIDE ANTIBIOTICS)] Assessment & Plan Assessment & Plan (1) Opioid use disorder, severe, dependence: Status: Acute Code(s): F11.20 - Opioid dependence, uncomplicated Assessment and Plan: methadone increase to 45mg QD starting tomorrow morning continue to follow Greater than 50% of the session was spent on counseling and/or coordination of care
[2021-02-18] MEDS: SUMAtriptan succinate 50 MG TABLET PO (20:18)
[2021-02-18] MEDS: Caspofungin Acetate 50 MG in 0.9 % Sodium Chloride 250 ML 250 MG IV (20:19)
[2021-02-18] MEDS: Enoxaparin Sodium 80 MG/0.8 ML SYRINGE 110 MG SUBCUT (20:19)
[2021-02-18] MEDS: Prazosin HCL 1 MG CAPSULE 3 MG PO (20:20)
[2021-02-18] MEDS: QUEtiapine Fumarate 400 MG TABLET PO (20:20)
[2021-02-18 20:56] LABS: HCV Log PCR <1.18 NOT DETECTED Log IU/mL (NOT DETECTED); HepC Viral Load <15 NOT DETECTED IU/mL (NOT DETECTED)
[2021-02-19] VITALS (10 sets, daily range): BP systolic 102–140; BP diastolic 66–78; PULSE 46–54; RESP 16–20; TEMP 35.5–37.2; O2SAT 93–98
[2021-02-19] MEDS: Piperacillin Sodium/Tazobactam 3.375 GM in 0.9 % Sodium Chloride 50 ML IV ×2 (05:26→14:30)
[2021-02-19] MEDS: methADONE HCl 20 MG/2 ML ORAL.CONC 45 MG PO (10:31)
[2021-02-19] MEDS: cloNIDine HCL 0.1 MG TABLET PO ×2 (10:32→20:40)
[2021-02-19] MEDS: amLODIPine Besylate 10 MG TABLET PO (10:32)
[2021-02-19] MEDS: Docusate Sodium 100 MG CAPSULE PO ×2 (10:32→20:40)
[2021-02-19] MEDS: Gabapentin 100 MG CAPSULE 200 MG PO ×3 (10:32→20:39)
[2021-02-19] MEDS: Aspirin 81 MG TAB.CHEW PO (10:32)
[2021-02-19] MEDS: 0.9 % Sodium Chloride Flush 3 ML SYRINGE IVFLUSH ×3 (10:33→20:53)
[2021-02-19] MEDS: Heparin Sodium,Porcine Flush 50 UNITS, 0.9 % Sodium Chloride Flush 5 ML IVFLUSH ×3 (10:33→20:49)
[2021-02-19] MEDS: Topiramate 100 MG TABLET 200 MG PO ×2 (10:44→20:40)
[2021-02-19] MEDS: ARIPiprazole 5 MG TABLET 7.5 MG PO (10:44)
--- NOTE | 2021-02-19 15:20 | P.PNID_ITS ---
Subjective Subjective Date of Service: 02/19/21 Critical Care Time (minutes): 15 Comment: She is sleepy but offers no complaints Objective Data Labs CBC & Chem 7: 02/15/21 08:01 02/15/21 08:01 Labs: Laboratory Results - last 24 hr 02/15/21 08:01 Hep C Viral Load <15 NOT DETECTED Hep C Viral Load Log <1.18 NOT DETECTED Microbiology Microbiology Results: Microbiology 02/14/21 11:49 Blood - Central Line Blood Culture - Preliminary Yeast 02/13/21 16:11 Blood - Venous Blood Culture - Final Pseudomonas aeruginosa Enterococcus faecalis Acinetobacter haemolyticus 02/16/21 10:50 Blood - Venous Blood Culture - Preliminary No growth after 48 hours. 02/16/21 10:45 Blood - Venous Blood Culture - Preliminary No growth after 48 hours. 02/15/21 Unknown Catheter Tip - Other Catheter Tip Culture - Final Enterobacter cloacae complex 02/13/21 16:26 Blood - Venous Blood Culture - Final Sandy albicans 02/14/21 11:49 Blood - Central Line Blood Culture - Preliminary No growth after 48 hours. Physical Exam Vital Signs: Vital Signs: Last Vital Signs Temp 95.9 F L 02/19/21 11:02 Pulse 54 02/19/21 11:02 Resp 18 02/19/21 11:02 BP 125/71 02/19/21 11:02 Pulse Ox 95 02/19/21 11:02 Body Mass Index 24.6 Const: General: cooperative HENMT: Head: Yes normal to inspection Resp: Effort & Inspection: normal respiratory effort Cardio: Rate: regular rate Rhythm: regular rhythm GI: Palpation (GI): Soft to palpation and nontender Extrem: General: Yes normal to inspection Assessment and Plan Assessment and plan (1) Candidemia: Problem details: There is no further bacteremia She had positive fungus on 02/13 and 02/14 and negative blood cultures on 02/16 Sandy is albicans generally sensitive to Diflucan Status: Acute Assessment and Plan: Would give total antifungals 21 days May change to po Diflucan 200 mg bid for 14 days, has been on Caspofungin 7 days Watch for drug interaction and check EKG tomorrow and weekly Time Spent With Patient Time: Total time spent is greater than 50% in coordination of care (as doc umented) at patient's floor/unit and/or counseling patient: Time with patient: 15 - 24 minutes
--- NOTE | 2021-02-19 16:20 | P.PNIM_ITS ---
Subjective Subjective Date of Service: 02/19/21 Interval History: sepsis , candemia , aplas Review of Systems Patient denies any cough or phlegm or nausea or vomiting or weakness numbness Has some chest tightness pleuritic, reproducible. Physical Exam Vital Signs: Vital Signs: Last Vital Signs Temp 98.9 F 02/19/21 16:00 Pulse 47 L 02/19/21 16:00 Resp 18 02/19/21 16:00 BP 102/66 02/19/21 16:00 Pulse Ox 95 02/19/21 16:00 Body Mass Index 24.6 Gen: chronically ill-appearing, not in acute distress HEENT: sclera anicteric, moist mucus membranes Neck: supple Lungs: fair air entry, few scattered inspiratory crackles Heart: bardycardic, no murmurs Abd: soft, non-tender, non-distended Ext: no leg edema, RUE midline catheter without signs on infection Skin: excoriated Neuro: alert and oriented x3, no focal findings Psych: restricted affect Objective Data Active Medications Albuterol/Ipratropium (Albuterol/Iprat 2.5/0.5mg 3 Ml Ampul.Neb) 3 ml INHALE RQ4H PRN PRN Reason: Shortness of Breath/Wheezing Amlodipine Besylate (Amlodipine Besylate 10 Mg Tablet) 10 mg PO DAILY [facility]; Protocol Last Admin: 02/19/21 10:32 Dose: 10 mg Documented by: GRETEL Aripiprazole (Aripiprazole 5 Mg Tablet) 7.5 mg PO DAILY [facility] Last Admin: 02/19/21 10:44 Dose: 7.5 mg Documented by: GRETEL Aspirin (Aspirin 81 Mg Tab.Chew) 81 mg PO DAILY [facility] Last Admin: 02/19/21 10:32 Dose: 81 mg Documented by: GRETEL Clonidine HCl (Clonidine Hcl 0.1 Mg Tablet) 0.1 mg PO BID [facility]; Protocol Last Admin: 02/19/21 10:32 Dose: 0.1 mg Documented by: GRETEL Heparin Sodium (Porcine) 50 (units/ Sodium Chloride 5 ml) 0 units IVFLUSH TID [facility] Last Admin: 02/19/21 14:30 Dose: 50 unit Documented by: GRETEL Docusate Sodium (Docusate Sodium 100 Mg Capsule) 100 mg PO BID [facility] Last Admin: 02/19/21 10:32 Dose: 100 mg Documented by: GRETEL Enoxaparin Sodium (Enoxaparin Sodium 80 Mg/0.8 Ml Syringe) 110 mg SUBCUT Q24H [facility] Last Admin: 02/18/21 20:19 Dose: 110 mg Documented by: JORDAN Fluconazole (Fluconazole 100 Mg Tablet) 200 mg PO BID [facility] Gabapentin (Gabapentin 100 Mg Capsule) 200 mg PO TID [facility] Last Admin: 02/19/21 14:30 Dose: 200 mg Documented by: GRETEL Melatonin (Melatonin 3 Mg Tablet) 6 mg PO BEDTIME PRN PRN Reason: Insomnia Methadone HCl (Methadone Hcl 20 Mg/2 Ml Oral.Conc) 45 mg PO DAILY [facility] Last Admin: 02/19/21 10:31 Dose: 45 mg Documented by: GRETEL Ondansetron HCl (Ondansetron Hcl 4 Mg/2 Ml Vial) 4 mg IVPUSH Q8H PRN PRN Reason: Nausea and Vomiting Oxycodone HCl (Oxycodone Hcl Immed Release 5 Mg Tablet) 5 mg PO Q6H PRN PRN Reason: Pain, Mild (Pain Scale 1-3) Pharmacy Consult (Consult Rx Perform Med Rec) 1 each MISCELLANE ONCE PRN PRN Reason: Consult order Pharmacy Consult (Consult Rx Vancomycin Dosing) 1 each MISCELLANE DAILY PRN PRN Reason: Consult order Prazosin HCl (Prazosin Hcl 1 Mg Capsule) 3 mg PO BEDTIME [facility]; Protocol Last Admin: 02/18/21 20:20 Dose: 3 mg Documented by: JORDAN Quetiapine Fumarate (Quetiapine Fumarate 400 Mg Tablet) 400 mg PO BEDTIME [facility] Last Admin: 02/18/21 20:20 Dose: 400 mg Documented by: JORDAN Senna (Sennosides 8.6 Mg Tablet) 17.2 mg PO BEDTIME PRN PRN Reason: Constipation Sodium Chloride (0.9 % Sodium Chloride Flush 3 Ml Syringe) 3 ml IVFLUSH QSHIFT [facility] Last Admin: 02/19/21 10:33 Dose: 3 ml Documented by: GRETEL Sumatriptan Succinate (Sumatriptan Succinate 50 Mg Tablet) 50 mg PO Q2H PRN PRN Reason: Migraine Headache Last Admin: 02/18/21 20:18 Dose: 50 mg Documented by: HO.ANTOIC Topiramate (Topiramate 100 Mg Tablet) 200 mg PO BID [facility] Last Admin: 02/19/21 10:44 Dose: 200 mg Documented by: GRETEL Labs CBC & Chem 7: 02/15/21 08:01 02/15/21 08:01 Labs: Laboratory Results - last 24 hr 02/15/21 08:01 Hep C Viral Load <15 NOT DETECTED Hep C Viral Load Log <1.18 NOT DETECTED Microbiology Microbiology Results: Microbiology 02/14/21 11:49 Blood Culture - Final Blood - Central Line No growth after 5 days. 02/14/21 11:49 Blood Culture - Preliminary Blood - Central Line Yeast 02/13/21 16:11 Blood Culture - Final Blood - Venous Pseudomonas aeruginosa Enterococcus faecalis Acinetobacter haemolyticus 02/16/21 10:50 Blood Culture - Preliminary Blood - Venous No growth after 48 hours. 02/16/21 10:45 Blood Culture - Preliminary Blood - Venous No growth after 48 hours. Assessment and Plan (1) Candidemia: Status: Acute (2) Antiphospholipid antibody positive: Status: Acute Assessment and Plan: 40yo F with IDU, APLAS/RALPH complicated by CVA and multiple DVT/PE [s/p IVC filter, off anticoagulation since episode of menorrhagia in 2014], HTN, CKD, HCV, bipolar depression, PTSD recently admitted to [facility] 12/21/20 for MRSA bacteremia complicated by hypoxia requiring transfer to MICU, hospitalization complicated by bilateral empyema s/p bilateral chest tube placement, transferred to [facility] for Thoracic evaluation but did not require VATS discharged to rehab for IV ABX with planned end date of 02/13/21 but left AMA 3wk prematurely and has been abusing heroin presented to [facility] with chest pain, found to be septic with septic pulmonary emboli, left popliteal DVT, questionable bacteremia but definite candidemia 1.sepsis no further bacteremia, has candidemia aspiration PNA 02/13: 1/2 peripheral BCx multiple organisms -> contaminant 02/13: 1/2 peripheral BCx Sandy albicans; 1/2 BCx from Zaman yeast -> caspofungin d#4, follow speciation+ susceptibilities from Zaman and possibly switch to fluconazole with QTc monitoring 02/15: Zaman cath tip Cx: <15 cFU/mL Enterobacter cloacae 02/16: BCx NGTD d/c'ed vanco, continue pip/zackary d#7/ [OK to complete with amox/clav once d/c'ed] - ID following-added fluconazole , will moniter ekg -qt in am. 2. LLE DVT- APLAS currently LMWH 1.5 mg/kg q24h, hold warfarin , patient wants lovenox - Hematology outpatient fu. 3. bradycardia - asymptomatic, probably due to clonidine + prazosin 4. anemia of chronic disease - monitor 5. opioid use disorder - methadone, Addiction Medicine following - QTc 448 ms - HIV screen negative, rescreen HCV with viral load [previously treated and cured with DAAs, may have been reinfected] 6.troponin elevation - flat, likely due to sepsis 7. hypoK - repleted 8. HTN - continue amlodipine 9 CKD3 - SCr stable, monitor 10. mood disorder - continue topiramate, clonidine, prazosin, aripiprazole, quetiapine; appreciate psych consult 11. dispo: probable home : after qt monitering , will check ekg in am Quality Stroke Does the patient have a stroke diagnosis?: No VTE Prior VTE?: Yes Approximate Date of Prior VTE: 02/13/21 VTE Risk Level:: Medical - moderate - high VTE Device Contraindication: Treatment Not Indicated VTE Drug Contraindication: N/A - Med Ordered
[2021-02-19] MEDS: oxyCODONE HCl Immed Release 5 MG TABLET PO (16:32)
[2021-02-19] MEDS: Enoxaparin Sodium 80 MG/0.8 ML SYRINGE 110 MG SUBCUT (20:38)
[2021-02-19] MEDS: Prazosin HCL 1 MG CAPSULE 3 MG PO (20:39)
[2021-02-19] MEDS: Fluconazole 100 MG TABLET 200 MG PO (20:40)
[2021-02-19] MEDS: SUMAtriptan succinate 50 MG TABLET PO (20:40)
[2021-02-19] MEDS: QUEtiapine Fumarate 400 MG TABLET PO (20:40)
[2021-02-20] VITALS (7 sets, daily range): BP systolic 104–127; BP diastolic 64–74; PULSE 44–64; RESP 16–18; TEMP 35.6–37.2; O2SAT 94–96
--- NOTE | 2021-02-20 | ECG_ITS ---
Test Reason : QTC CHECK Blood Pressure : / mmHG Vent. Rate : 052 BPM Atrial Rate : 052 BPM P-R Int : 200 ms QRS Dur : 080 ms QT Int : 506 ms P-R-T Axes : 073 010 020 degrees QTc Int : 470 ms Sinus bradycardia Junctional ST depression, probably normal Borderline ECG When compared with ECG of 18-FEB-2021 08:37, No significant change was found Referred By: Sterling Coy Electronically Signed By:EDUARDO SHEPPARD
[2021-02-20] MEDS: 0.9 % Sodium Chloride Flush 3 ML SYRINGE IVFLUSH (10:22)
[2021-02-20] MEDS: ARIPiprazole 5 MG TABLET 7.5 MG PO (10:23)
[2021-02-20] MEDS: Gabapentin 100 MG CAPSULE 200 MG PO ×3 (10:23→22:33)
[2021-02-20] MEDS: Amoxicillin/Potassium Clav 875 MG TABLET PO ×2 (10:24→22:34)
[2021-02-20] MEDS: Docusate Sodium 100 MG CAPSULE PO ×2 (10:25→22:34)
[2021-02-20] MEDS: Topiramate 100 MG TABLET 200 MG PO ×2 (10:25→22:33)
[2021-02-20] MEDS: Fluconazole 100 MG TABLET 200 MG PO ×2 (10:25→22:33)
[2021-02-20] MEDS: Aspirin 81 MG TAB.CHEW PO (10:25)
[2021-02-20] MEDS: cloNIDine HCL 0.1 MG TABLET PO ×2 (10:26→22:33)
[2021-02-20] MEDS: amLODIPine Besylate 10 MG TABLET PO (10:26)
[2021-02-20] MEDS: methADONE HCl 20 MG/2 ML ORAL.CONC 45 MG PO (10:27)
[2021-02-20] MEDS: Heparin Sodium,Porcine Flush 50 UNITS, 0.9 % Sodium Chloride Flush 5 ML IVFLUSH ×3 (10:32→22:34)
--- NOTE | 2021-02-20 11:14 | MHC.RECOVRN ---
T/w met with pt to f/u regarding dc plan. If pt does not need [facility] IV abx, pt would like to [facility]. Pt, along with t/w, called [facility] and spoke with Meagan ([phone] opt 1) who informed pt she is welcome to go to their program. Pt consents to t/w speaking with Meagan and sending requested information (fax [phone]). Cecy Espino APRN, as well as pts RN, aware of plan.
--- NOTE | 2021-02-20 11:18 | MHC.CM.PN ---
Per ROUNDS discussion, Patient is not yet medically cleared for dc (spitting up blood this morning). D/T Patient's likely need for LT IVABT and her IVDA history, [facility] and [facility] are the only SNF potential options. CM will follow.
--- NOTE | 2021-02-20 12:14 | P.CONPL_ITS ---
History of Present Illness History of Present Illness Consult date: 02/20/21 Requesting physician: Sterling Coy Chief complaint: PNA, Septic emboli, bradycardia Narrative: I was called to see this patient for pulmonary consultation. She has been admitted here since 02/13 with nonspecific chest discomfort, fever and shortness of breath. Patient has a very complicated past medical history. She is a case of anti phospholipid syndrome, for many years, having had DVT, pulmonary embolism in the past, is status post IVC filter. Anticoagulation stopped in 2014. Patient has a history of drugs abuse using IV heroin very frequently and also using the other agents such Marijuana and Cocain . It is noted in the past history that she was admitted recently at [facility] with bilateral pneumonia and empyema, treated with the chest tube, And patient was on IV antibiotic through Zaman catheter. Patient was discharged to rehab facility where she stayed only for about 1 week and then signed out. Anyway she did complete the course of antibiotics. Since she came back home she was constantly using IV heroin on a daily basis, and she still had the Zaman catheter in place. She came to the hospital on 02/13 because of above-described nonspecific chest pain. Patient also has past history of hypertension, hepatitis-C, PTSD , bipolar disorder and depression . Since admission her blood cultures have shown Gram-negative rods probably enterobacter/ Pseudomonas/strep species. And the recent result is positive for Sandy albicans, Chest x-ray and CT scan have been grossly abnormal. Patient is being treated with IV Zosyn, and now also started on Diflucan IV. I had a good conversation with the patient today. Her main complaint is nonspecific chest discomfort and pain aggravated by cough. She is remaining afebrile. She is not having any respiratory distress and does not require oxygen. Review of Systems Review of Systems: This patient is main complaint is chest pain, especially after cough Generalized weakness. Denies fever or chills. Denies any active GI symptoms PMFSH Past Medical History Medical History Candidemia DVT (deep venous thrombosis) [place] filter in place Lupus Opiate abuse, continuous Pneumonia Pulmonary emboli Surgical History Surgical History History of appendectomy Hx of splenectomy Social History Social History Household Members: None Housing: Homeless Do you presently have visiting nurse or other home services: No Patient Tobacco Use Status: Current someday Tobacco user Tobacco use type: Cigarette Smoked in Last 30 Days: Yes e-Cigarette/Vaping Use: Currently Using Patient Interested in Nicotine Replacement: No Patient Given Instructions on How to Stop Smoking: No Second Hand Smoke Exposure: Yes Use of substances other than those prescribed or required for medical reasons: Yes Substance Use Type: Crack/Cocaine and Opiates Substance Use Frequency: Occasionally Last Used Substance: Days (ago) Currently Displaying Signs/Symptoms of Drug Intoxication Withdrawal: No Any prior treatment program specific to substance use: Yes Have you been hit, kicked, punched, or otherwise hurt by someone within the past year? If so, by whom?: No Do you feel safe in your current relationship?: Yes Is there a partner from a previous relationship who is making you feel unsafe now?: No Are you made to feel afraid or neglected: No Advance Directives: No Advance Directives Information Provided: No Do you have thoughts of harming others: None Do you have a plan to hurt others: No Plan Recently lost weight without trying: No Nutrition Risks: No Nutritional Risk Patient : No service: No Current occupational status: employed Meds Allergies Allergy/AdvReac Type Severity Reaction Status Date / Time bee pollen [BEE STINGS] Allergy Severe Anaphylaxis Verified 02/13/21 14:25 codeine [CODEINE] Allergy Severe ANAPHYLAXIS Verified 02/13/21 14:25 Iodinated Contrast Media Allergy Severe DIFFICULTY Verified 02/13/21 14:25 [IV DYE, IODINE CONTAINING BREATHING CONTRAST ] nut - unspecified [nut] Allergy Intermediate Rash Verified 02/13/21 14:25 shellfish derived Allergy Intermediate Rash Verified 02/13/21 14:25 Sulfa (Sulfonamide Allergy Unknown ANAPHYLAXIS Verified 02/13/21 14:25 Antibiotics) [SULFA (SULFONAMIDE ANTIBIOTICS)] Active Medications: Current Medications Albuterol/Ipratropium (Albuterol/Iprat 2.5/0.5mg 3 Ml Ampul.Neb) 3 ml INHALE RQ4H PRN PRN Reason: Shortness of Breath/Wheezing Amlodipine Besylate (Amlodipine Besylate 10 Mg Tablet) 10 mg PO DAILY [facility]; Protocol Last Admin: 02/20/21 10:26 Dose: 10 mg Documented by: Amoxicillin/Clavulanate Potassium (Amoxicillin/Potassium Clav 875 Mg Tablet) 875 mg PO Q12H [facility] Last Admin: 02/20/21 10:24 Dose: 875 mg Documented by: Aripiprazole (Aripiprazole 5 Mg Tablet) 7.5 mg PO DAILY [facility] Last Admin: 02/20/21 10:23 Dose: 7.5 mg Documented by: Aspirin (Aspirin 81 Mg Tab.Chew) 81 mg PO DAILY [facility] Last Admin: 02/20/21 10:25 Dose: 81 mg Documented by: Clonidine HCl (Clonidine Hcl 0.1 Mg Tablet) 0.1 mg PO BID [facility]; Protocol Last Admin: 02/20/21 10:26 Dose: 0.1 mg Documented by: Heparin Sodium (Porcine) 50 (units/ Sodium Chloride 5 ml) 0 units IVFLUSH TID [facility] Last Admin: 02/20/21 10:32 Dose: 50 unit Documented by: Docusate Sodium (Docusate Sodium 100 Mg Capsule) 100 mg PO BID [facility] Last Admin: 02/20/21 10:25 Dose: 100 mg Documented by: Enoxaparin Sodium (Enoxaparin Sodium 80 Mg/0.8 Ml Syringe) 110 mg SUBCUT Q24H [facility] Last Admin: 02/19/21 20:38 Dose: 110 mg Documented by: Fluconazole (Fluconazole 100 Mg Tablet) 200 mg PO BID [facility] Last Admin: 02/20/21 10:25 Dose: 200 mg Documented by: Gabapentin (Gabapentin 100 Mg Capsule) 200 mg PO TID [facility] Last Admin: 02/20/21 10:23 Dose: 200 mg Documented by: Melatonin (Melatonin 3 Mg Tablet) 6 mg PO BEDTIME PRN PRN Reason: Insomnia Methadone HCl (Methadone Hcl 20 Mg/2 Ml Oral.Conc) 45 mg PO DAILY [facility] Last Admin: 02/20/21 10:27 Dose: 45 mg Documented by: Ondansetron HCl (Ondansetron Hcl 4 Mg/2 Ml Vial) 4 mg IVPUSH Q8H PRN PRN Reason: Nausea and Vomiting Oxycodone HCl (Oxycodone Hcl Immed Release 5 Mg Tablet) 5 mg PO Q6H PRN PRN Reason: Pain, Mild (Pain Scale 1-3) Last Admin: 02/19/21 16:32 Dose: 5 mg Documented by: Pharmacy Consult (Consult Rx Perform Med Rec) 1 each MISCELLANE ONCE PRN PRN Reason: Consult order Pharmacy Consult (Consult Rx Vancomycin Dosing) 1 each MISCELLANE DAILY PRN PRN Reason: Consult order Prazosin HCl (Prazosin Hcl 1 Mg Capsule) 3 mg PO BEDTIME [facility]; Protocol Last Admin: 02/19/21 20:39 Dose: 3 mg Documented by: Quetiapine Fumarate (Quetiapine Fumarate 400 Mg Tablet) 400 mg PO BEDTIME [facility] Last Admin: 02/19/21 20:40 Dose: 400 mg Documented by: Senna (Sennosides 8.6 Mg Tablet) 17.2 mg PO BEDTIME PRN PRN Reason: Constipation Sodium Chloride (0.9 % Sodium Chloride Flush 3 Ml Syringe) 3 ml IVFLUSH QSHIFT [facility] Last Admin: 02/20/21 10:22 Dose: 3 ml Documented by: Sumatriptan Succinate (Sumatriptan Succinate 50 Mg Tablet) 50 mg PO Q2H PRN PRN Reason: Migraine Headache Last Admin: 02/19/21 20:40 Dose: 50 mg Documented by: Topiramate (Topiramate 100 Mg Tablet) 200 mg PO BID [facility] Last Admin: 02/20/21 10:25 Dose: 200 mg Documented by: Home Medications Medication Instructions Recorded Confirmed Last Taken Type albuterol sulfate 90 mcg/actuation 2 puff INHALATION Q6H PRN 02/28/20 02/13/21 Unknown History aerosol inhaler famotidine 20 mg tablet 20 mg PO DAILY 02/28/20 02/13/21 02/13/21 History quetiapine 400 mg tablet (Seroquel) 400 mg PO BEDTIME 02/28/20 02/13/21 02/12/21 History amlodipine 10 mg tablet 10 mg PO DAILY 02/13/21 02/13/21 02/13/21 History aspirin 81 mg chewable tablet 81 mg PO DAILY 02/13/21 02/13/21 02/13/21 History clonidine HCl 0.1 mg tablet 0.1 mg PO BID PRN 02/13/21 02/13/21 Unknown History melatonin 5 mg tablet 5 mg PO BEDTIME PRN 02/13/21 02/13/21 Unknown History sumatriptan succinate 50 mg tablet 50 mg PO Q2H PRN 02/13/21 02/13/21 Unknown H istory (Imitrex) topiramate 200 mg tablet 200 mg PO BID 02/13/21 02/13/21 02/13/21 History aripiprazole 5 mg tablet 7.5 mg PO DAILY 02/15/21 02/15/21 Unknown History ferrous sulfate 324 mg (65 mg 324 mg PO DAILY 02/15/21 02/15/21 Unknown History iron) tablet,delayed release gabapentin 100 mg capsule 200 mg PO BID 02/15/21 02/15/21 Unknown History lidocaine 5 % topical patch 1 patch TOPICAL DAILY 02/15/21 02/15/21 Unknown History lorazepam 0.5 mg tablet 0.5 mg PO Q4H PRN 02/15/21 02/15/21 Unknown History polyethylene glycol 3350 17 gram 17 g PO DAILY 02/15/21 02/15/21 Unknown History oral powder packet (Miralax) prazosin 1 mg capsule 3 mg PO BEDTIME 02/15/21 02/15/21 Unknown History vancomycin 1.25 gram intravenous 1.25 g IV Q24H 02/15/21 02/15/21 Unknown History solution Physical Exam Vital Signs: Vital Signs: Last Vital Signs Temp 96.5 F L 02/20/21 11:09 Pulse 64 02/20/21 11:09 Resp 18 02/20/21 11:09 BP 125/74 02/20/21 11:09 Pulse Ox 95 02/20/21 11:09 Body Mass Index 24.6 Const: General: comfortable, no acute distress, alert and awake Orientation/consciousness: patient oriented x3 HENMT: Head: Yes normal to inspection General nose exam: No nasal polyps present and No nasal discharge present Face and sinus: Yes sinuses nontender Mouth: oropharynx normal Throat: Yes posterior oropharynx normal Eyes: General: appearance normal, both eyes and all related structures Neck: Neck: Yes normal visual inspection, Yes no lymphadenopathy, Yes trachea midline and Yes no JVD Thyroid: Thyroid normal Chest: Chest palpation & inspection: normal inspection of the chest, normal palpation of entire chest wall and tenderness (No point tenderness is noted) Resp: Other: Percussion note resonant Patient does have good breath sounds on both sides, Breath sounds are distant with prolonged expiratory phase. A few scattered inspiratory Creps over the basilar areas Cardio: Palpation: normal PMI Rate: regular rate Rhythm: regular rhythm Heart sounds: no gallops and no murmurs GI: Palpation (GI): Soft to palpation, nontender, No hepatosplenomegaly present and no masses Auscultation: normal bowel sounds Back/Spine/Pelvis: Thoracic/Lumbar Spine: thoracic and lumbar spine normal to inspection Skin: General skin exam: no rashes or lesions noted Neuro: General: patient oriented x3, No gait normal (Not tested) and no focal motor deficits Cranial nerves: Yes CN's II-XII intact bilaterally Extrem: General: Yes normal to inspection, Yes no clubbing, cyanosis or edema and Yes no calf tenderness Psych: Appearance: grossly normal Speech and movement: Normal speech and movement present Affect: Anxious affect present Results Laboratory Findings CBC and BMP: 02/15/21 08:01 02/15/21 08:01 ABG, PT/INR, D-dimer: PT/INR, D-dimer PT 11.5 SEC (9.9-13.0) 02/18/21 13:09 INR 1.0 (0.9-1.1) 02/18/21 13:09 Abnormal lab findings: Abnormal Labs 02/13/21 02/13/21 02/13/21 16:11 16:11 16:11 WBC 20.9 H RBC 3.23 L Hgb 10.3 L Hct 31.3 L MCV MPV Neutrophils % (Manual) 87 H Band Neutrophils % 2 L Lymphocytes % (Manual) 6 L Abs Neuts (Manual) 18.6 H Potassium Chloride Creatinine Calcium Alkaline Phosphatase 181 H Total Creatine Kinase Troponin I High Sens 18.5 H* B-Natriuretic Peptide 115 H Albumin 3.0 L Urine Protein Urine Blood Urine Opiates Screen Urine Fentanyl Screen Urine Cocaine Screen 02/13/21 02/13/21 02/13/21 16:11 19:16 19:16 WBC RBC Hgb Hct MCV MPV Neutrophils % (Manual) Band Neutrophils % Lymphocytes % (Manual) Abs Neuts (Manual) Potassium Chloride Creatinine Calcium Alkaline Phosphatase Total Creatine Kinase 19 L Troponin I High Sens B-Natriuretic Peptide Albumin Urine Protein 2+ H Urine Blood 3+ H Urine Opiates Screen POSITIVE H Urine Fentanyl Screen POSITIVE H Urine Cocaine Screen POSITIVE H 02/13/21 02/14/21 02/14/21 19:23 06:41 06:41 WBC 13.4 H RBC 3.08 L Hgb 9.5 L Hct 30.3 L MCV 98.4 H MPV Neutrophils % (Manual) Band Neutrophils % Lymphocytes % (Manual) Abs Neuts (Manual) Potassium 3.0 L Chloride Creatinine 1.55 H Calcium Alkaline Phosphatase Total Creatine Kinase Troponin I High Sens 17.1 H* B-Natriuretic Peptide Albumin Urine Protein Urine Blood Urine Opiates Screen Urine Fentanyl Screen Urine Cocaine Screen 02/15/21 02/15/21 08:01 08:01 WBC RBC 2.88 L Hgb 9.0 L Hct 28.9 L MCV 100.3 H MPV 13.0 H Neutrophils % (Manual) Band Neutrophils % Lymphocytes % (Manual) Abs Neuts (Manual) Potassium Chloride 109 H Creatinine Calcium 7.9 L D Alkaline Phosphatase Total Creatine Kinase Troponin I High Sens B-Natriuretic Peptide Albumin Urine Protein Urine Blood Urine Opiates Screen Urine Fentanyl Screen Urine Cocaine Screen Microbiology: Microbiology 02/14/21 11:49 Blood - Central Line Blood Culture - Final No growth after 5 days. 02/14/21 11:49 Blood - Central Line Blood Culture - Preliminary Yeast 02/13/21 16:11 Blood - Venous Blood Culture - Final Pseudomonas aeruginosa Enterococcus faecalis Acinetobacter haemolyticus 02/16/21 10:50 Blood - Venous Blood Culture - Preliminary No growth after 48 hours. 02/16/21 10:45 Blood - Venous Blood Culture - Preliminary No growth after 48 hours. 02/15/21 Unknown Catheter Tip - Other Catheter Tip Culture - Final Enterobacter cloacae complex 02/13/21 16:26 Blood - Venous Blood Culture - Final Sandy albicans Diagnostic Findings Chest x-ray: image reviewed Assessment and Plan (1) PTSD (post-traumatic stress disorder): Status: Acute Chronic problem, may be contributing to her ongoing IV drug addiction. (2) Opioid use disorder, severe, dependence: Status: Acute Also chronic problem, with recurrent infections (3) Pneumonia: Status: Acute Patient has multiple patchy densities some with cavitation, consistent with septic emboli and pneumonia. Currently being treated with IV Zosyn which is the adequate, may change to Augmentin p.o. for 10 days (4) DVT (deep venous thrombosis): Status: Acute Patient did have evidence of DVT in the left calve , started on anticoagulation (5) Septic embolism: Status: Acute See under pneumonia (6) Candidemia: Status: Acute Line infection with Sandy albicans, Patient has been started on IV Diflucan to be changed to oral, on discharge Procedures Date of Service Date of Service: 02/20/21
--- NOTE | 2021-02-20 12:45 | PM.EVENT ---
Event Note Date of Service: 02/20/21 Event Note: Contacted by in patient medical provider, as patient is preparing for discharge and is taking several medications that may have potential to prolong QTC interval. A chart review reveals QTC trending upward, from 430 on 02/16/21, 448 on 02/18/21, and 470 on 02/20/21. Recommendations are as follows: Decrease quetiapine from 400 mg daily to 300 mg daily for duration of fluconazole (2 weeks). Quetiapine should be resumed at 400 mg dose once fluconazole is stopped. Patient should follow up on regular intervals with pcp regarding these medications as well as obtaining regular EKGs in order to monitor QTC. This has been shared with Dr. Sterling Munroe, via secure electronic messaging.
[2021-02-20 13:58] LABS: Alanine Aminotransferase 11 U/L (0-31); Albumin Level 2.9 g/dL (3.5-5.0); Alkaline Phosphatase 165 U/L (39-117); Aspartate Amino Transferase 28 U/L (5-31); Bilirubin Direct < 0.2 mg/dL (0.0-0.5); Bilirubin Total < 0.2 mg/dL (0.0-1.0)
[2021-02-20] MEDS: Enoxaparin Sodium 80 MG/0.8 ML SYRINGE 110 MG SUBCUT (14:31)
--- NOTE | 2021-02-20 15:59 | MHC.CM.PN ---
Per entry manager, who spoke with MD, Patient is now likely to have IV ABT changed to PO;if so, the goal for dc will change to [facility] [place]. CM will follow.
--- NOTE | 2021-02-20 17:34 | P.PNIM_ITS ---
Subjective Subjective Date of Service: 02/20/21 Interval History: fungemia , haemoptysis Review of Systems Patient is having episode of hemoptysis Otherwise chest soreness and shortness of breath seems to be improving Denies any abdominal pain or fever Denies any nausea vomiting or weakness or numbness. Physical Exam Vital Signs: Vital Signs: Last Vital Signs Temp 97.6 F 02/20/21 15:52 Pulse 46 L 02/20/21 15:52 Resp 18 02/20/21 15:52 BP 104/72 02/20/21 15:52 Pulse Ox 95 02/20/21 15:52 Body Mass Index 24.6 Gen: haemoptysis, not in acute distress HEENT: sclera anicteric, moist mucus membranes Neck: supple Lungs: fair air entryimproving , few scattered rhonchii Heart: bardycardic, no murmurs Abd: soft, non-tender, non-distended Ext: no leg edema, RUE midline catheter without signs on infection Skin: excoriated Neuro: alert and oriented x3, no focal findings Psych: restricted affect Objective Data Active Medications Albuterol/Ipratropium (Albuterol/Iprat 2.5/0.5mg 3 Ml Ampul.Neb) 3 ml INHALE RQ4H PRN PRN Reason: Shortness of Breath/Wheezing Amlodipine Besylate (Amlodipine Besylate 10 Mg Tablet) 10 mg PO DAILY [facility]; Protocol Last Admin: 02/20/21 10:26 Dose: 10 mg Documented by: ESTEBAN Amoxicillin/Clavulanate Potassium (Amoxicillin/Potassium Clav 875 Mg Tablet) 875 mg PO Q12H [facility] Last Admin: 02/20/21 10:24 Dose: 875 mg Documented by: ESTEBAN Aripiprazole (Aripiprazole 5 Mg Tablet) 7.5 mg PO DAILY [facility] Last Admin: 02/20/21 10:23 Dose: 7.5 mg Documented by: ESTEBAN Aspirin (Aspirin 81 Mg Tab.Chew) 81 mg PO DAILY [facility] Last Admin: 02/20/21 10:25 Dose: 81 mg Documented by: ESTEBAN Clonidine HCl (Clonidine Hcl 0.1 Mg Tablet) 0.1 mg PO BID [facility]; Protocol Last Admin: 02/20/21 10:26 Dose: 0.1 mg Documented by: ESTEBAN Heparin Sodium (Porcine) 50 (units/ Sodium Chloride 5 ml) 0 units IVFLUSH TID [facility] Last Admin: 02/20/21 14:31 Dose: 50 unit Documented by: ESTEBAN Docusate Sodium (Docusate Sodium 100 Mg Capsule) 100 mg PO BID [facility] Last Admin: 02/20/21 10:25 Dose: 100 mg Documented by: ESTEBAN Enoxaparin Sodium (Enoxaparin Sodium 80 Mg/0.8 Ml Syringe) 110 mg SUBCUT Q24H [facility] Last Admin: 02/20/21 14:31 Dose: 110 mg Documented by: ESTEBAN Fluconazole (Fluconazole 100 Mg Tablet) 200 mg PO BID [facility] Last Admin: 02/20/21 10:25 Dose: 200 mg Documented by: ESTEBAN Gabapentin (Gabapentin 100 Mg Capsule) 200 mg PO TID [facility] Last Admin: 02/20/21 14:31 Dose: 200 mg Documented by: ESTEBAN Melatonin (Melatonin 3 Mg Tablet) 6 mg PO BEDTIME PRN PRN Reason: Insomnia Methadone HCl (Methadone Hcl 20 Mg/2 Ml Oral.Conc) 45 mg PO DAILY [facility] Last Admin: 02/20/21 10:27 Dose: 45 mg Documented by: ESTEBAN Ondansetron HCl (Ondansetron Hcl 4 Mg/2 Ml Vial) 4 mg IVPUSH Q8H PRN PRN Reason: Nausea and Vomiting Oxycodone HCl (Oxycodone Hcl Immed Release 5 Mg Tablet) 5 mg PO Q6H PRN PRN Reason: Pain, Mild (Pain Scale 1-3) Last Admin: 02/19/21 16:32 Dose: 5 mg Documented by: GRETEL Pharmacy Consult (Consult Rx Perform Med Rec) 1 each MISCELLANE ONCE PRN PRN Reason: Consult order Pharmacy Consult (Consult Rx Vancomycin Dosing) 1 each MISCELLANE DAILY PRN PRN Reason: Consult order Prazosin HCl (Prazosin Hcl 1 Mg Capsule) 3 mg PO BEDTIME [facility]; Protocol Last Admin: 02/19/21 20:39 Dose: 3 mg Documented by: AGUSTINA Quetiapine Fumarate (Quetiapine Fumarate 300 Mg Tablet) 300 mg PO BEDTIME [facility] Senna (Sennosides 8.6 Mg Tablet) 17.2 mg PO BEDTIME PRN PRN Reason: Constipation Sodium Chloride (0.9 % Sodium Chloride Flush 3 Ml Syringe) 3 ml IVFLUSH QSHIFT [facility] Last Admin: 02/20/21 17:12 Dose: Not Given Documented by: ESTEBAN Non-Admin Reason: Previously Administered Sumatriptan Succinate (Sumatriptan Succinate 50 Mg Tablet) 50 mg PO Q2H PRN PRN Reason: Migraine Headache Last Admin: 02/19/21 20:40 Dose: 50 mg Documented by: AGUSTINA Topiramate (Topiramate 100 Mg Tablet) 200 mg PO BID [facility] Last Admin: 02/20/21 10:25 Dose: 200 mg Documented by: ESTEBAN Labs CBC & Chem 7: 02/15/21 08:01 02/15/21 08:01 Labs: Laboratory Results - last 24 hr 02/20/21 13:20 Total Bilirubin < 0.2 Direct Bilirubin < 0.2 AST 28 D ALT 11 Alkaline Phosphatase 165 H Total Protein 7.0 Albumin 2.9 L Microbiology Microbiology Results: Microbiology 02/14/21 11:49 Blood Culture - Final Blood - Central Line No growth after 5 days. Assessment and Plan (1) Candidemia: Status: Acute (2) Septic embolism: Status: Acute (3) Pneumonia: Status: Acute Assessment and Plan: 40yo F with IDU, APLAS/RALPH complicated by CVA and multiple DVT/PE [s/p IVC filter, off anticoagulation since episode of menorrhagia in 2014], HTN, CKD, HCV, bipolar depression, PTSD recently admitted to [facility] 12/21/20 for MRSA bacteremia complicated by hypoxia requiring transfer to MICU, hospitalization complicated by bilateral empyema s/p bilateral chest tube placement, transferred to [facility] for Thoracic evaluation but did not require VATS discharged to rehab for IV ABX with planned end date of 02/13/21 but left AMA 3wk prematurely and has been abusing heroin presented to [facility] with chest pain, found to be septic with septic pulmonary emboli, left popliteal DVT, questionable bacteremia but definite candidemia 1.sepsis no further? bacteremia, has candidemia ?aspiration PNA ?02/13: 1/2 peripheral BCx multiple organisms -> contaminant ?02/13: 1/2 peripheral BCx Sandy albicans; 1/2 BCx from [facility] yeast -> caspofungin d#4, follow speciation+ susceptibilities from [facility] and possibly switch to fluconazole with QTc monitoring 02/15: [facility] cath tip Cx: <15 cFU/mL Enterobacter cloacae 02/16: BCx NGTD d/c'ed vanco, continue pip/zackary d#7/10 [OK to complete with amox/clav once d/c'ed] - ID following-added fluconazole , ekg -480's ms. ?Patient had hemoptysis-chest x-ray seems question of mild infiltrate right upper ,left lowermidlung pulm eval 2. LLE DVT- APLAS currently LMWH 1.5 mg/kg q24h, hold warfarin , patient wants lovenox - Hematology outpatient fu. 3. bradycardia - asymptomatic, probably due to clonidine + prazosin 4. anemia of chronic disease - monitor 5. opioid use disorder - methadone, Addiction Medicine following - QTc 448 ms - HIV screen negative, rescreen HCV with viral load [previously treated and cured with DAAs, may have been reinfected] 6.troponin elevation - flat, likely due to sepsis 7. hypoK - repleted 8. HTN - continue amlodipine 9 CKD3 - SCr stable, monitor 10. mood disorder - continue topiramate, clonidine, prazosin, aripiprazole, quetiapine; appreciate psych consult 11. dispo: probable home : after qt monitering ,going slightly up will adjust seroquel as per psych , ekg monitering Quality Stroke Does the patient have a stroke diagnosis?: No VTE Prior VTE?: Yes Approximate Date of Prior VTE: 02/13/21 VTE Risk Level:: Medical - moderate - high VTE Device Contraindication: Treatment Not Indicated VTE Drug Contraindication: N/A - Med Ordered
[2021-02-20] MEDS: oxyCODONE HCl Immed Release 5 MG TABLET PO (17:50)
[2021-02-20] MEDS: Prazosin HCL 1 MG CAPSULE 3 MG PO (22:33)
[2021-02-20] MEDS: QUEtiapine Fumarate 300 MG TABLET PO (22:34)
[2021-02-21] VITALS (7 sets, daily range): BP systolic 101–112; BP diastolic 56–67; PULSE 44–52; RESP 18; TEMP 36.6–37.1; O2SAT 94–97
--- NOTE | 2021-02-21 | ECG_ITS ---
Test Reason : QTC CHECK Blood Pressure : / mmHG Vent. Rate : 053 BPM Atrial Rate : 053 BPM P-R Int : 192 ms QRS Dur : 076 ms QT Int : 474 ms P-R-T Axes : 000 -01 007 degrees QTc Int : 444 ms Sinus bradycardia Minimal voltage criteria for LVH, may be normal variant Abnormal ECG When compared with ECG of 20-FEB-2021 08:31, No significant change was found Referred By: Sterling Coy Electronically Signed By:EDUARDO SHEPPARD
[2021-02-21] MEDS: 0.9 % Sodium Chloride Flush 3 ML SYRINGE IVFLUSH ×3 (08:50→22:07)
[2021-02-21] MEDS: methADONE HCl 20 MG/2 ML ORAL.CONC 45 MG PO (08:51)
[2021-02-21] MEDS: Heparin Sodium,Porcine Flush 50 UNITS, 0.9 % Sodium Chloride Flush 5 ML IVFLUSH ×3 (08:51→22:09)
[2021-02-21] MEDS: amLODIPine Besylate 10 MG TABLET PO (08:52)
[2021-02-21] MEDS: cloNIDine HCL 0.1 MG TABLET PO ×2 (08:52→22:07)
[2021-02-21] MEDS: Amoxicillin/Potassium Clav 875 MG TABLET PO ×2 (08:53→22:08)
[2021-02-21] MEDS: Aspirin 81 MG TAB.CHEW PO (08:53)
[2021-02-21] MEDS: Docusate Sodium 100 MG CAPSULE PO ×2 (08:53→22:09)
[2021-02-21] MEDS: Gabapentin 100 MG CAPSULE 200 MG PO ×3 (08:53→22:08)
[2021-02-21] MEDS: Topiramate 100 MG TABLET 200 MG PO ×2 (08:54→22:08)
[2021-02-21] MEDS: ARIPiprazole 5 MG TABLET 7.5 MG PO (08:54)
[2021-02-21] MEDS: Fluconazole 100 MG TABLET 200 MG PO ×2 (09:02→22:08)
[2021-02-21 09:42] LABS: Anion Gap 12 (12-20); Blood Urea Nitrogen 21 mg/dL (9-16); Calcium 9.8 mg/dL (8.4-10.2); Carbon Dioxide 24 mmol/L (22-29); Chloride 105 mmol/L (96-108); Creatinine Clr Calc Pharmacy 55.3; Estimated Glomerular Filt Rate 43; Glucose Random 102 mg/dL (60-115); Potassium 3.8 mmol/L (3.3-5.1); Sodium 137 mmol/L (135-145)
--- NOTE | 2021-02-21 10:08 | P.PNPL_ITS ---
Subjective Subjective Date of Service: 02/21/21 Principal diagnosis: Multifocal Pneumonia Interval history: Patient is seen for pulmonary follow-up today. She has mild intermittent cough. Main problem is ongoing pain in the chest as well as in the back but she cannot localize any area. Remains afebrile and does not have any respiratory distress. Objective Data Labs CBC & Chem 7: 02/15/21 08:01 02/21/21 08:58 Labs: Laboratory Results - last 24 hr 02/20/21 02/21/21 13:20 08:58 Sodium 137 Potassium 3.8 Chloride 105 Carbon Dioxide 24 Anion Gap 12 BUN 21 H D Creatinine 1.35 Estim Creat Clear Calc 55.3 Estimated GFR 43 Random Glucose 102 Calcium 9.8 D Total Bilirubin < 0.2 Direct Bilirubin < 0.2 AST 28 D ALT 11 Alkaline Phosphatase 165 H Total Protein 7.0 Albumin 2.9 L Microbiology Microbiology Results: Microbiology 02/14/21 11:49 Blood - Central Line Blood Culture - Final No growth after 5 days. 02/14/21 11:49 Blood - Central Line Blood Culture - Preliminary Yeast 02/13/21 16:11 Blood - Venous Blood Culture - Final Pseudomonas aeruginosa Enterococcus faecalis Acinetobacter haemolyticus 02/16/21 10:50 Blood - Venous Blood Culture - Preliminary No growth after 48 hours. 02/16/21 10:45 Blood - Venous Blood Culture - Preliminary No growth after 48 hours. 02/15/21 Unknown Catheter Tip - Other Catheter Tip Culture - Final Enterobacter cloacae complex 02/13/21 16:26 Blood - Venous Blood Culture - Final Sandy albicans Review of Systems Review of Systems Denies any specific complaints except for nonspecific pain in the chest wall and back Yes all other systems are reviewed and are negative Physical Exam Vital Signs: Vital Signs: Last Vital Signs Temp 98.7 F 02/21/21 07:40 Pulse 52 02/21/21 08:52 Resp 18 02/21/21 07:40 BP 112/67 02/21/21 08:52 Pulse Ox 97 02/21/21 07:40 Body Mass Index 24.6 Stable, afebrile. Const: General: comfortable, no acute distress, alert and awake Orientation/consciousness: patient oriented x3 HENMT: Head: Yes normal to inspection General nose exam: No nasal polyps present and No nasal discharge present Face and sinus: Yes sinuses nontender Mouth: oropharynx normal Throat: Yes posterior oropharynx normal Eyes: General: appearance normal, both eyes and all related structures Neck: Neck: Yes normal visual inspection, Yes no lymphadenopathy, Yes trachea midline and Yes no JVD Thyroid: Thyroid normal Chest: Chest palpation & inspection: normal inspection of the chest, normal pa lpation of entire chest wall and no tenderness Resp: Other: Percussion note is resonant. Breath sounds are somewhat distant but equal on both sides. Only a few inspiratory Creps over the basilar areas. No wheezes are heard . Cardio: Palpation: normal PMI Rate: regular rate Rhythm: regular rhythm Heart sounds: no gallops and no murmurs Peripheral pulses: Peripheral pulses 2+ throughout GI: Palpation (GI): Soft to palpation, nontender, No hepatosplenomegaly present and no masses Auscultation: normal bowel sounds Back/Spine/Pelvis: Thoracic/Lumbar Spine: thoracic and lumbar spine normal to inspection Skin: General skin exam: no rashes or lesions noted Neuro: General: patient oriented x3 and no focal motor deficits Cranial nerves: Yes CN's II-XII intact bilaterally Extrem: General: Yes normal to inspection, Yes no clubbing, cyanosis or edema and Yes no calf tenderness Psych: Appearance: grossly normal Speech and movement: Normal speech and movement present Affect: Other affect and mood findings present (Depressed mood) Procedures Date of Service Date of Service: 02/21/21 Assessment and Plan Assessment and plan (1) Candidemia: Problem details: There is no further bacteremia She had positive fungus on 02/13 and 02/14 and negative blood cultures on 02/16 Sandy is albicans generally sensitive to Diflucan. And she is on Diflucan 200 mg b.i.d., tolerating well Status: Acute (2) Opioid use disorder, severe, dependence: Problem details: This is a chronic problem and she needs outpatient management. Status: Acute (3) PTSD (post-traumatic stress disorder): Problem details: Chronic problem and, definitely contributes to her ongoing addiction. Status: Acute (4) Pneumonia: Problem details: Patient had patchy areas of pneumonia in both lungs, secondary to septic emboli, and makes Gram-negative organisms. Has been treated with IV Zosyn, and now on Augmentin. She is doing well, should continue Augmentin 875 mg b.i.d. for about 10 days, and can be followed up as outpatient Status: Acute (5) Antiphospholipid antibody positive: Problem details: Patient on anticoagulation for recurrent DVT. Being followed by hematology service Status: Acute Time Spent With Patient Time: Total time spent is greater than 50% in coordination of care (as documented) at patient's floor/unit and/or counseling patient: Time with patient: 15 - 24 minutes Progress Note: Quality Stroke Does the patient have a stroke diagnosis?: No
[2021-02-21] MEDS: Lactated Ringers 1,000 ML 80 ML IVCONT (12:57)
--- NOTE | 2021-02-21 13:45 | MHC.RECOVRN ---
Pt received 45 mg methadone this morning. Pt denies withdrawal symptoms. Pt sitting up in bed, appears drowsy, however, denies feeling tired. Pt aware message has left with Meagan at [facility], t/w has not received an expected fax from them as of yet. Pt reports car will be in parking lot until next week, security notified. Discussed with Cecy Espino APRN as well as JEREMY.
[2021-02-21] MEDS: oxyCODONE HCl Immed Release 5 MG TABLET PO (14:31)
--- NOTE | 2021-02-21 15:16 | HO.PM.IMPN ---
Subjective Subjective Date of Service: 02/21/21 Interval History: fungemia , haemoptysis Review of Systems Patient is having episodes hemoptysis some what improving Otherwise chest soreness and shortness of breath seems to be improved. Denies any abdominal pain or fever Denies any nausea vomiting or weakness or numbness. Physical Exam Vital Signs: Vital Signs: Last Vital Signs Temp 98.1 F 02/21/21 11:22 Pulse 50 02/21/21 11:22 Resp 18 02/21/21 11:22 BP 101/64 02/21/21 11:22 Pulse Ox 94 02/21/21 11:22 Body Mass Index 24.6 Gen: haemoptysis, not in acute distress HEENT: sclera anicteric, moist mucus membranes Neck: supple Lungs: fair air entry improving , few scattered rhonchii Heart: bardycardic, no murmurs Abd: soft, non-tender, non-distended Ext: no leg edema, RUE midline catheter without signs on infection Skin: excoriated Neuro: alert and oriented x3, no focal findings Psych: restricted affect Objective Data Active Medications Amlodipine Besylate (Amlodipine Besylate 10 Mg Tablet) 10 mg PO DAILY [facility]; Protocol Last Admin: 02/21/21 08:52 Dose: 10 mg Documented by: KEYSHA Amoxicillin/Clavulanate Potassium (Amoxicillin/Potassium Clav 875 Mg Tablet) 875 mg PO Q12H [facility] Last Admin: 02/21/21 08:53 Dose: 875 mg Documented by: KEYSHA Aripiprazole (Aripiprazole 5 Mg Tablet) 7.5 mg PO DAILY [facility] Last Admin: 02/21/21 08:54 Dose: 7.5 mg Documented by: KEYSHA Aspirin (Aspirin 81 Mg Tab.Chew) 81 mg PO DAILY [facility] Last Admin: 02/21/21 08:53 Dose: 81 mg Documented by: KEYSHA Clonidine HCl (Clonidine Hcl 0.1 Mg Tablet) 0.1 mg PO BID [facility]; Protocol Last Admin: 02/21/21 08:52 Dose: 0.1 mg Documented by: KEYSHA Heparin Sodium (Porcine) 50 (units/ Sodium Chloride 5 ml) 0 units IVFLUSH TID [facility] Last Admin: 02/21/21 14:32 Dose: 50 unit Documented by: KEYSHA Docusate Sodium (Docusate Sodium 100 Mg Capsule) 100 mg PO BID [facility] Last Admin: 02/21/21 08:53 Dose: 100 mg Documented by: KEYSHA Enoxaparin Sodium (Enoxaparin Sodium 80 Mg/0.8 Ml Syringe) 110 mg SUBCUT Q24H [facility] Last Admin: 02/20/21 14:31 Dose: 110 mg Documented by: ESTEBAN Fluconazole (Fluconazole 100 Mg Tablet) 200 mg PO BID [facility] Last Admin: 02/21/21 09:02 Dose: 200 mg Documented by: KEYSHA Gabapentin (Gabapentin 100 Mg Capsule) 200 mg PO TID [facility] Last Admin: 02/21/21 14:31 Dose: 200 mg Documented by: KEYSHA Lactated Ringer's (Lr) 1,000 mls @ 80 mls/hr IVCONT .[id number] [facility] Last Admin: 02/21/21 12:57 Dose: 80 mls/hr Documented by: KEYSHA Melatonin (Melatonin 3 Mg Tablet) 6 mg PO BEDTIME PRN PRN Reason: Insomnia Methadone HCl (Methadone Hcl 20 Mg/2 Ml Oral.Conc) 45 mg PO DAILY [facility] Last Admin: 02/21/21 08:51 Dose: 45 mg Documented by: KEYSHA Ondansetron HCl (Ondansetron Hcl 4 Mg/2 Ml Vial) 4 mg IVPUSH Q8H PRN PRN Reason: Nausea and Vomiting Oxycodone HCl (Oxycodone Hcl Immed Release 5 Mg Tablet) 5 mg PO Q6H PRN PRN Reason: Pain, Mild (Pain Scale 1-3) Last Admin: 02/21/21 14:31 Dose: 5 mg Documented by: KEYSHA Pharmacy Consult (Consult Rx Perform Med Rec) 1 each MISCELLANE ONCE PRN PRN Reason: Consult order Prazosin HCl (Prazosin Hcl 1 Mg Capsule) 3 mg PO BEDTIME [facility]; Protocol Last Admin: 02/20/21 22:33 Dose: 3 mg Documented by: KING Quetiapine Fumarate (Quetiapine Fumarate 300 Mg Tablet) 300 mg PO BEDTIME [facility] Last Admin: 02/20/21 22:34 Dose: 300 mg Documented by: KING Senna (Sennosides 8.6 Mg Tablet) 17.2 mg PO BEDTIME PRN PRN Reason: Constipation Sodium Chloride (0.9 % Sodium Chloride Flush 3 Ml Syringe) 3 ml IVFLUSH QSHIFT [facility] Last Admin: 02/21/21 14:32 Dose: 3 ml Documented by: KEYSHA Sumatriptan Succinate (Sumatriptan Succinate 50 Mg Tablet) 50 mg PO Q2H PRN PRN Reason: Migraine Headache Last Admin: 02/19/21 20:40 Dose: 50 mg Documented by: AGUSTINA Topiramate (Topiramate 100 Mg Tablet) 200 mg PO BID [facility] Last Admin: 02/21/21 08:54 Dose: 200 mg Documented by: KEYSHA Labs CBC & Chem 7: 02/15/21 08:01 02/21/21 08:58 Labs: Laboratory Results - last 24 hr 02/21/21 08:58 Anion Gap 12 Estim Creat Clear Calc 55.3 Estimated GFR 43 Random Glucose 102 Calcium 9.8 D Microbiology Microbiology Results: Microbiology 02/16/21 10:50 Blood Culture - Final Blood - Venous No growth after 5 days. 02/16/21 10:45 Blood Culture - Final Blood - Venous No growth after 5 days. Assessment and Plan (1) Candidemia: Status: Acute (2) Pneumonia: Status: Acute Assessment and Plan: 40yo F with IDU, APLAS/RALPH complicated by CVA and multiple DVT/PE [s/p IVC filter, off anticoagulation since episode of menorrhagia in 2014], HTN, CKD, HCV, bipolar depression, PTSD recently admitted to [facility] 12/21/20 for MRSA bacteremia complicated by hypoxia requiring transfer to MICU, hospitalization complicated by bilateral empyema s/p bilateral chest tube placement, [place] [facility] [place] but did not require VATS discharged to rehab for IV ABX with planned end date of 02/13/21 but left AMA 3wk prematurely and has been abusing heroin presented [place] [facility] with chest pain, found to be septic with septic pulmonary emboli, left popliteal DVT, questionable bacteremia but definite candidemia 1.sepsis no further bacteremia, has candidemia aspiration PNA 02/13: 1/2 peripheral BCx multiple organisms -> contaminant 02/13: 1/2 peripheral BCx Sandy albicans; 1/2 BCx from [facility] yeast -> caspofungin d#4, follow speciation+ susceptibilities from [facility] and possibly switch to fluconazole with QTc monitoring 02/15: [facility] cath tip Cx: <15 cFU/mL Enterobacter cloacae 02/16: BCx NGTD d/c'ed vanco, continue pip/zackary d#7/10 [OK to complete with amox/clav once d/c'ed], augmentin / - ID following-added fluconazole , ekg -440's ms. Patient had hemoptysis-chest x-ray seems question of mild infiltrate right upper ,left lowermidlung pulm eval 2. LLE DVT- APLAS d/w hematology-hold LMWH 1.5 mg/kg q24h, hold warfarin. 3. bradycardia - asymptomatic, probably due to clonidine + prazosin 4. anemia of chronic disease - monitor 5. opioid use disorder - methadone, Addiction Medicine following - QTc as above. - HIV screen negative, rescreen HCV with viral load [previously treated and cured with DAAs, may have been reinfected] 6.troponin elevation - flat, likely due to sepsis 7. hypoK - repleted 8. HTN - continue amlodipine 9 CKD3 - SCr stable, monitor 10. mood disorder - continue topiramate, clonidine, prazosin, aripiprazole, quetiapine; appreciate psych consult 11. dispo: probable home : after qt monitering ,going slightly up adjust ed as per psych Quality Stroke Does the patient have a stroke diagnosis?: No VTE Prior VTE?: Yes Approximate Date of Prior VTE: 02/13/21 VTE Risk Level:: Medical - moderate - high VTE Device Contraindication: Treatment Not Indicated VTE Drug Contraindication: N/A - Med Ordered
[2021-02-21] MEDS: Prazosin HCL 1 MG CAPSULE 3 MG PO (22:07)
[2021-02-21] MEDS: QUEtiapine Fumarate 300 MG TABLET PO (22:08)
[2021-02-22] VITALS (9 sets, daily range): BP systolic 103–115; BP diastolic 54–67; PULSE 49–58; RESP 16–20; TEMP 36.1–37; O2SAT 92–98
[2021-02-22] MEDS: Lactated Ringers 1,000 ML 80 ML IVCONT ×2 (01:41→13:03)
[2021-02-22] MEDS: methADONE HCl 20 MG/2 ML ORAL.CONC 45 MG PO (08:34)
[2021-02-22] MEDS: Docusate Sodium 100 MG CAPSULE PO ×2 (08:35→21:36)
[2021-02-22] MEDS: Topiramate 100 MG TABLET 200 MG PO ×2 (08:35→21:36)
[2021-02-22] MEDS: Gabapentin 100 MG CAPSULE 200 MG PO ×3 (08:35→21:36)
[2021-02-22] MEDS: ARIPiprazole 5 MG TABLET 7.5 MG PO (08:36)
[2021-02-22] MEDS: Aspirin 81 MG TAB.CHEW PO (08:36)
[2021-02-22] MEDS: Fluconazole 100 MG TABLET 200 MG PO ×2 (08:36→21:36)
[2021-02-22] MEDS: amLODIPine Besylate 10 MG TABLET PO (08:37)
[2021-02-22] MEDS: cloNIDine HCL 0.1 MG TABLET PO ×2 (08:37→21:36)
[2021-02-22] MEDS: Amoxicillin/Potassium Clav 875 MG TABLET PO ×2 (08:37→21:36)
--- NOTE | 2021-02-22 10:39 | MHC.CM.PN ---
Female 45 DX PNA Septic Emboli Bradycardia Sepsis Patient referred to [facility] and Tr[facility]. Updated clinical information has been sent. Recovery Nurse has sent a referral to [facility] program. Dispo likely SNF for LT ABX. CM will follow.
[2021-02-22] MEDS: oxyCODONE HCl Immed Release 5 MG TABLET PO (13:02)
--- NOTE | 2021-02-22 13:48 | MHC.CM.PN ---
Patient is not yet medically cleared for dc ; per transfer professor, Patient will dc to [facility] on Thursday02/25/21. CM will follow.
--- NOTE | 2021-02-22 14:41 | MHC.RECOVRN ---
T/w met with pt after receiving fax from [facility] containing additional referral information. Began filling out paperwork when pt received a call from Meagan at [facility] to complete the phone screen. Pt being held the weekend to d/c to [facility] on Thursday. Additional referral information will need to be completed and faxed to Meagan.
[2021-02-22] MEDS: Heparin Sodium,Porcine Flush 50 UNITS, 0.9 % Sodium Chloride Flush 5 ML IVFLUSH (15:12)
[2021-02-22] MEDS: 0.9 % Sodium Chloride Flush 3 ML SYRINGE IVFLUSH (15:19)
--- NOTE | 2021-02-22 17:30 | P.PNIM_ITS ---
Subjective Subjective Date of Service: 02/22/21 Interval History: haemoptysis Review of Systems Hemoptysis seems improving, chest soreness improved, still has some cough otherwise seems better. Physical Exam Vital Signs: Vital Signs: Last Vital Signs Temp 97.8 F 02/22/21 15:39 Pulse 49 L 02/22/21 15:39 Resp 18 02/22/21 15:39 BP 110/62 02/22/21 15:39 Pulse Ox 95 02/22/21 15:39 Body Mass Index 24.6 haemoptysis, not in acute distress HEENT: sclera anicteric, moist mucus membranes Neck: supple Lungs: fair air entry improving , few scattered rhonchii Heart: bardycardic, no murmurs Abd: soft, non-tender, non-distended Ext: no leg edema, RUE midline catheter without signs on infection Skin: excoriated Neuro: alert and oriented x3, no focal findings Psych: restricted affect Objective Data Active Medications Amlodipine Besylate (Amlodipine Besylate 10 Mg Tablet) 10 mg PO DAILY [facility]; Pr otocol Last Admin: 02/22/21 08:37 Dose: 10 mg Documented by: KEYSHA Amoxicillin/Clavulanate Potassium (Amoxicillin/Potassium Clav 875 Mg Tablet) 875 mg PO Q12H [facility] Last Admin: 02/22/21 08:37 Dose: 875 mg Documented by: KEYSHA Aripiprazole (Aripiprazole 5 Mg Tablet) 7.5 mg PO DAILY [facility] Last Admin: 02/22/21 08:36 Dose: 7.5 mg Documented by: KEYSHA Aspirin (Aspirin 81 Mg Tab.Chew) 81 mg PO DAILY [facility] Last Admin: 02/22/21 08:36 Dose: 81 mg Documented by: KEYSHA Clonidine HCl (Clonidine Hcl 0.1 Mg Tablet) 0.1 mg PO BID [facility]; Protocol Last Admin: 02/22/21 08:37 Dose: 0.1 mg Documented by: KEYSHA Heparin Sodium (Porcine) 50 (units/ Sodium Chloride 5 ml) 0 units IVFLUSH TID [facility] Last Admin: 02/22/21 15:12 Dose: 50 unit Documented by: KEYSHA Docusate Sodium (Docusate Sodium 100 Mg Capsule) 100 mg PO BID [facility] Last Admin: 02/22/21 08:35 Dose: 100 mg Documented by: KEYSHA Enoxaparin Sodium (Enoxaparin Sodium 80 Mg/0.8 Ml Syringe) 110 mg SUBCUT Q24H [facility] Last Admin: 02/22/21 01:44 Dose: Not Given Documented by: SALBADOR Non-Admin Reason: Previous shift Fluconazole (Fluconazole 100 Mg Tablet) 200 mg PO BID [facility] Last Admin: 02/22/21 08:36 Dose: 200 mg Documented by: KEYSHA Gabapentin (Gabapentin 100 Mg Capsule) 200 mg PO TID [facility] Last Admin: 02/22/21 15:12 Dose: 200 mg Documented by: KEYSHA Lactated Ringer's (Lr) 1,000 mls @ 80 mls/hr IVCONT .[id number] [facility] Last Admin: 02/22/21 13:03 Dose: 80 mls/hr Documented by: KEYSHA Melatonin (Melatonin 3 Mg Tablet) 6 mg PO BEDTIME PRN PRN Reason: Insomnia Methadone HCl (Methadone Hcl 20 Mg/2 Ml Oral.Conc) 45 mg PO DAILY [facility] Last Admin: 02/22/21 08:34 Dose: 45 mg Documented by: KEYSHA Ondansetron HCl (Ondansetron Hcl 4 Mg/2 Ml Vial) 4 mg IVPUSH Q8H PRN PRN Reason: Nausea and Vomiting Oxycodone HCl (Oxycodone Hcl Immed Release 5 Mg Tablet) 5 mg PO Q6H PRN PRN Reason: Pain, Mild (Pain Scale 1-3) Last Admin: 02/22/21 13:02 Dose: 5 mg Documented by: KEYSHA Pharmacy Consult (Consult Rx Perform Med Rec) 1 each MISCELLANE ONCE PRN PRN Reason: Consult order Prazosin HCl (Prazosin Hcl 1 Mg Capsule) 3 mg PO BEDTIME [facility]; Protocol Last Admin: 02/21/21 22:07 Dose: 3 mg Documented by: SALBADOR Quetiapine Fumarate (Quetiapine Fumarate 300 Mg Tablet) 300 mg PO BEDTIME [facility] Last Admin: 02/21/21 22:08 Dose: 300 mg Documented by: SALBADOR Senna (Sennosides 8.6 Mg Tablet) 17.2 mg PO BEDTIME PRN PRN Reason: Constipation Sodium Chloride (0.9 % Sodium Chloride Flush 3 Ml Syringe) 3 ml IVFLUSH QSHIFT [facility] Last Admin: 02/22/21 15:19 Dose: 3 ml Documented by: KEYSHA Sumatriptan Succinate (Sumatriptan Succinate 50 Mg Tablet) 50 mg PO Q2H PRN PRN Reason: Migraine Headache Last Admin: 02/19/21 20:40 Dose: 50 mg Documented by: AGUSTINA Topiramate (Topiramate 100 Mg Tablet) 200 mg PO BID [facility] Last Admin: 02/22/21 08:35 Dose: 200 mg Documented by: KEYSHA Labs CBC & Chem 7: 02/15/21 08:01 02/21/21 08:58 Assessment and Plan (1) Candidemia: Status: Acute (2) DVT (deep venous thrombosis): Status: Acute Assessment and Plan: 40yo F with IDU, APLAS/RALPH complicated by CVA and multiple DVT/PE [s/p IVC filter, off anticoagulation since episode of menorrhagia in 2014], HTN, CKD, HCV, bipolar depression, PTSD recently admitted to [facility] 12/21/20 for MRSA bacteremia complicated by hypoxia requiring transfer to MICU, hospitalization complicated by bilateral empyema s/p bilateral chest tube placement, [place] [facility] [place] but did not require VATS discharged to rehab for IV ABX with planned end date of 02/13/21 but left AMA 3wk prematurely and has been abusing heroin presented to [facility] with chest pain, found to be septic with septic pulmonary emboli, left popliteal DVT, questionable bacteremia but definite candidemia 1.sepsis no further? bacteremia, has candidemia ?aspiration PNA ?02/13: 1/2 peripheral BCx multiple organisms -> contaminant ?02/13: 1/2 peripheral BCx Sandy albicans; 1/2 BCx from [facility] yeast -> initially was on caspofungin She had positive fungus on 02/13 and 02/14 and negative blood cultures on 02/16 Sandy is albicans generally sensitive to Diflucan 02/15: [facility] cath tip Cx: <15 cFU/mL Enterobacter cloacae 02/16: BCx NGTD d/c'ed vanco, continue pip/zackary d#7/10 [OK to complete with amox/clav once d/c'ed], augmentin 08/08 - ID following-added fluconazole , ekg -440's ms. ?Patient had hemoptysis-chest x-ray seems question of mild infiltrate right upper ,left lowermidlung pulm pulmonary followed the patient recommended to continue Diflucan as well as Augmentin for 10 days. 2. LLE DVT- APLAS d/w hematology-will switch Lovenox to 1 g per kg q.12 3. bradycardia - asymptomatic, probably due to clonidine + prazosin 4. anemia of chronic disease - monitor 5. opioid use disorder - methadone, Addiction Medicine following - QTc as above. - HIV screen negative, rescreen HCV with viral load [previously treated and cured with DAAs, may have been reinfected] Need to follow up with ID out patiently 6.troponin elevation - flat, likely due to sepsis 7. hypoK - repleted 8. HTN - continue amlodipine 9 CKD3 - SCr stable, monitor 10. mood disorder - continue topiramate, clonidine, prazosin, aripiprazole, quetiapine; appreciate psych consult 11. dispo: probable home : after qt monitering ,going slightly up ?adjust ed as per psych Quality Stroke Does the patient have a stroke diagnosis?: No VTE Prior VTE?: Yes Approximate Date of Prior VTE: 02/13/21 VTE Risk Level:: Medical - moderate - high VTE Device Contraindication: Treatment Not Indicated VTE Drug Contraindication: N/A - Med Ordered
[2021-02-22] MEDS: Enoxaparin Sodium 80 MG/0.8 ML SYRINGE 75 MG SUBCUT (19:05)
[2021-02-22] MEDS: Prazosin HCL 1 MG CAPSULE 3 MG PO (21:36)
[2021-02-22] MEDS: QUEtiapine Fumarate 300 MG TABLET PO (21:36)
[2021-02-23] VITALS (9 sets, daily range): BP systolic 102–122; BP diastolic 56–65; PULSE 49–62; RESP 16–20; TEMP 36.5–37.2; O2SAT 93–98
[2021-02-23] MEDS: Lactated Ringers 1,000 ML 80 ML IVCONT ×2 (03:42→14:41)
[2021-02-23] MEDS: Enoxaparin Sodium 80 MG/0.8 ML SYRINGE 75 MG SUBCUT ×2 (06:37→18:24)
[2021-02-23] MEDS: Topiramate 100 MG TABLET 200 MG PO ×2 (08:30→20:22)
[2021-02-23] MEDS: Fluconazole 100 MG TABLET 200 MG PO ×2 (08:30→20:22)
[2021-02-23] MEDS: amLODIPine Besylate 10 MG TABLET PO (08:30)
[2021-02-23] MEDS: Aspirin 81 MG TAB.CHEW PO (08:30)
[2021-02-23] MEDS: Amoxicillin/Potassium Clav 875 MG TABLET PO ×2 (08:30→20:22)
[2021-02-23] MEDS: Docusate Sodium 100 MG CAPSULE PO (08:30)
[2021-02-23] MEDS: cloNIDine HCL 0.1 MG TABLET PO ×2 (08:30→20:21)
[2021-02-23] MEDS: ARIPiprazole 5 MG TABLET 7.5 MG PO (08:30)
[2021-02-23] MEDS: Gabapentin 100 MG CAPSULE 200 MG PO ×3 (08:30→20:21)
[2021-02-23] MEDS: methADONE HCl 20 MG/2 ML ORAL.CONC 45 MG PO (08:31)
--- NOTE | 2021-02-23 13:20 | MHC.RECOVSUP ---
Recovery Support note: This typewriter operator automatic met with patient to continue referral packet for [facility]. Patient reports she completed the phone intake and [facility] staff plan to pick her up at 1000 on Sunday 02/25. Patient reports she will need 30 days of all of her prescriptions sent to [address] [place] [address]. Patient will also need a last dose letter to bring to the methadone clinic. Referral packet completed and faxed to [facility] (fax: [phone]) Patient reports mild withdrawal symptoms including sweats and diarrhea. Discussed case with Cecy Espino NP.
--- NOTE | 2021-02-23 14:38 | P.PNIM_ITS ---
Subjective Subjective Date of Service: 02/23/21 Interval History: haemoptysis Review of Systems Denies any new complaint of chest pain or shortness of breath or abdominal pain or fever or chills or nausea or vomiting Denies any cough Physical Exam Vital Signs: Vital Signs: Last Vital Signs Temp 97.8 F 02/23/21 11:36 Pulse 50 02/23/21 11:36 Resp 18 02/23/21 11:36 BP 122/64 02/23/21 11:36 Pulse Ox 96 02/23/21 11:36 Body Mass Index 24.6 haemoptysis, not in acute distress HEENT: sclera anicteric, moist mucus membranes Neck: supple Lungs: air entry improving , slightly diminshed at bases. Heart: bardycardic, no murmurs Abd: soft, non-tender, non-distended Ext: no leg edema, RUE midline catheter without signs on infection Skin: excoriated Neuro: alert and oriented x3, no focal findings Psych: restricted affect Objective Data Active Medications Amlodipine Besylate (Amlodipine Besylate 10 Mg Tablet) 10 mg PO DAILY [facility]; Protocol Last Admin: 02/23/21 08:30 Dose: 10 mg Documented by: SAYRA Amoxicillin/Clavulanate Potassium (Amoxicillin/Potassium Clav 875 Mg Tablet) 875 mg PO Q12H [facility] Last Admin: 02/23/21 08:30 Dose: 875 mg Documented by: SAYRA Aripiprazole (Aripiprazole 5 Mg Tablet) 7.5 mg PO DAILY [facility] Last Admin: 02/23/21 08:30 Dose: 7.5 mg Documented by: SAYRA Aspirin (Aspirin 81 Mg Tab.Chew) 81 mg PO DAILY [facility] Last Admin: 02/23/21 08:30 Dose: 81 mg Documented by: SAYRA Clonidine HCl (Clonidine Hcl 0.1 Mg Tablet) 0.1 mg PO BID [facility]; Protocol Last Admin: 02/23/21 08:30 Dose: 0.1 mg Documented by: SAYRA Heparin Sodium (Porcine) 50 (units/ Sodium Chloride 5 ml) 0 units IVFLUSH TID [facility] Last Admin: 02/23/21 08:31 Dose: Not Given Documented by: SAYRA Non-Admin Reason: IV Running Docusate Sodium (Docusate Sodium 100 Mg Capsule) 100 mg PO BID [facility] Last Admin: 02/23/21 08:30 Dose: 100 mg Documented by: SAYRA Enoxaparin Sodium (Enoxaparin Sodium 80 Mg/0.8 Ml Syringe) 75 mg 1 mg/kg (75 mg) SUBCUT Q12H [facility] Last Admin: 02/23/21 06:37 Dose: 75 mg Documented by: SALBADOR Fluconazole (Fluconazole 100 Mg Tablet) 200 mg PO BID [facility] Last Admin: 02/23/21 08:30 Dose: 200 mg Documented by: SAYRA Gabapentin (Gabapentin 100 Mg Capsule) 200 mg PO TID [facility] Last Admin: 02/23/21 08:30 Dose: 200 mg Documented by: SAYRA Lactated Ringer's (Lr) 1,000 mls @ 80 mls/hr IVCONT .[id number] [facility] Last Admin: 02/23/21 03:42 Dose: 80 mls/hr Documented by: SALBADOR Melatonin (Melatonin 3 Mg Tablet) 6 mg PO BEDTIME PRN PRN Reason: Insomnia Methadone HCl (Methadone Hcl 20 Mg/2 Ml Oral.Conc) 45 mg PO DAILY [facility] Last Admin: 02/23/21 08:31 Dose: 45 mg Documented by: SAYRA Ondansetron HCl (Ondansetron Hcl 4 Mg/2 Ml Vial) 4 mg IVPUSH Q8H PRN PRN Reason: Nausea and Vomiting Oxycodone HCl (Oxycodone Hcl Immed Release 5 Mg Tablet) 5 mg PO Q6H PRN PRN Reason: Pain, Mild (Pain Scale 1-3) Last Admin: 02/22/21 13:02 Dose: 5 mg Documented by: KEYSHA Pharmacy Consult (Consult Rx Perform Med Rec) 1 each MISCELLANE ONCE PRN PRN Reason: Consult order Prazosin HCl (Prazosin Hcl 1 Mg Capsule) 3 mg PO BEDTIME [facility]; Protocol Last Admin: 02/22/21 21:36 Dose: 3 mg Documented by: SALBADOR Quetiapine Fumarate (Quetiapine Fumarate 300 Mg Tablet) 300 mg PO BEDTIME [facility] Last Admin: 02/22/21 21:36 Dose: 300 mg Documented by: SALBADOR Senna (Sennosides 8.6 Mg Tablet) 17.2 mg PO BEDTIME PRN PRN Reason: Constipation Sodium Chloride (0.9 % Sodium Chloride Flush 3 Ml Syringe) 3 ml IVFLUSH QSHIFT [facility] Last Admin: 02/23/21 08:31 Dose: Not Given Documented by: SAYRA Non-Admin Reason: IV Running Sumatriptan Succinate (Sumatriptan Succinate 50 Mg Tablet) 50 mg PO Q2H PRN PRN Reason: Migraine Headache Last Admin: 02/19/21 20:40 Dose: 50 mg Documented by: AGUSTINA Topiramate (Topiramate 100 Mg Tablet) 200 mg PO BID [facility] Last Admin: 02/23/21 08:30 Dose: 200 mg Documented by: SAYRA Labs CBC & Chem 7: 02/15/21 08:01 02/21/21 08:58 Assessment and Plan (1) Candidemia: Status: Acute (2) Bradycardia: Status: Acute Assessment and Plan: 40yo F with IDU, APLAS/RALPH complicated by CVA and multiple DVT/PE [s/p IVC filter, off anticoagulation since episode of menorrhagia in 2014], HTN, CKD, HCV, bipolar depression, PTSD recently admitted to [facility] 12/21/20 for MRSA bacteremia complicated by hypoxia requiring transfer to MICU, hospitalization complicated by bilateral empyema s/p bilateral chest tube placement, [place] [facility] [place] but did not require VATS discharged to rehab for IV ABX with planned end date of 02/13/21 but left AMA 3wk prematurely and has been abusing heroin [place] [facility] [place], found to be septic with septic pulmonary emboli, left popliteal DVT, questionable bacteremia but definite candidemia 1.sepsis no further? bacteremia, has candidemia ?aspiration PNA ?02/13: 1/2 peripheral BCx multiple organisms -> contaminant ?02/13: 1/2 peripheral BCx Sandy albicans; 1/2 BCx from [facility] yeast -> initially was on caspofungin She had positive fungus on 02/13 and 02/14 and negative blood cultures on 02/16 Sandy is albicans generally sensitive to Diflucan 02/15: [facility] cath tip Cx: <15 cFU/mL Enterobacter cloacae 02/16: BCx NGTD d/c'ed vanco, continue pip/zackary d#7/10 [OK to complete with amox/clav once d/c'ed], augmentin 08/08, completed antibitics for aspiration - ID following-added fluconazole , ekg -440's ms. ?Patient had hemoptysis-chest x-ray seems question of mild infiltrate right upper ,left lowermidlung pulm pulmonary followed the patient recommended to continue Diflucan as well as Augmentin for 10? days. 2. LLE DVT- APLAS d/w hematology-will switch Lovenox to 1 g per kg q.12 3. bradycardia - asymptomatic, probably due to clonidine + prazosin 4. anemia of chronic disease - monitor 5. opioid use disorder - methadone, Addiction Medicine following - QTc as above. - HIV screen negative, rescreen HCV with viral load [previously treated and cured with DAAs, may have been reinfected] Need to follow up with ID out patiently 6.troponin elevation - flat, likely due to sepsis 7. hypoK - repleted 8. HTN - continue amlodipine 9 CKD3 - SCr stable, monitor 10. mood disorder - continue topiramate, clonidine, prazosin, aripiprazole, quetiapine; appreciate psych consult 11. dispo: ?adjust ed as per psych-patient need placement psych Quality Stroke Does the patient have a stroke diagnosis?: No VTE Prior VTE?: Yes Approximate Date of Prior VTE: 02/13/21 VTE Risk Level:: Medical - moderate - high VTE Device Contraindication: Treatment Not Indicated VTE Drug Contraindication: N/A - Med Ordered
[2021-02-23] MEDS: oxyCODONE HCl Immed Release 5 MG TABLET PO (17:02)
[2021-02-23] MEDS: QUEtiapine Fumarate 300 MG TABLET PO (20:23)
[2021-02-23] MEDS: Prazosin HCL 1 MG CAPSULE 3 MG PO (20:23)
[2021-02-24] VITALS (7 sets, daily range): BP systolic 98–112; BP diastolic 57–72; PULSE 49–60; RESP 16–18; TEMP 36–36.9; O2SAT 93–95
[2021-02-24] MEDS: Lactated Ringers 1,000 ML 80 ML IVCONT (02:28)
[2021-02-24] MEDS: Enoxaparin Sodium 80 MG/0.8 ML SYRINGE 75 MG SUBCUT ×2 (05:59→17:58)
[2021-02-24] MEDS: oxyCODONE HCl Immed Release 5 MG TABLET PO ×3 (06:00→20:50)
[2021-02-24] MEDS: Topiramate 100 MG TABLET 200 MG PO ×2 (08:20→20:49)
[2021-02-24] MEDS: Fluconazole 100 MG TABLET 200 MG PO ×2 (08:20→20:49)
[2021-02-24] MEDS: Gabapentin 100 MG CAPSULE 200 MG PO ×3 (08:20→20:50)
[2021-02-24] MEDS: ARIPiprazole 5 MG TABLET 7.5 MG PO (08:20)
--- NOTE | 2021-02-24 08:20 | P.PNIM_ITS ---
Subjective Subjective Date of Service: 02/24/21 Interval History: hameoptysis , asp pna, apls Review of Systems Hemoptysis seems to be resolved Denies any new complaint of chest pain or shortness of breath or abdominal pain or fever or chills or nausea or vomiting Denies any cough Denies any weakness or numbness. Physical Exam Vital Signs: Vital Signs: Last Vital Signs Temp 96.8 F 02/24/21 07:13 Pulse 50 02/24/21 08:15 Resp 16 02/24/21 07:13 BP 98/57 L 02/24/21 08:15 Pulse Ox 95 02/24/21 07:13 Body Mass Index 24.6 constitutional:?not in acute distress HEENT: sclera anicteric, moist mucus membranes Neck: supple Lungs: air entry improving , slightly diminshed at bases. Heart: bardycardic, no murmurs Abd: soft, non-tender, non-distended Ext: no leg edema, RUE midline catheter without signs on infection Skin: excoriated Neuro: alert and oriented x3, no focal findings Psych: restricted affect Objective Data Active Medications Amlodipine Besylate (Amlodipine Besylate 10 Mg Tablet) 10 mg PO DAILY [facility]; Protocol Last Admin: 02/24/21 08:15 Dose: Not Given Documented by: SAYRA Non-Admin Reason: Decreased Blood Pressure Amoxicillin/Clavulanate Potassium (Amoxicillin/Potassium Clav 875 Mg Tablet) 875 mg PO Q12H [facility] Stop: 02/24/21 10:01 Last Admin: 02/23/21 20:22 Dose: 875 mg Documented by: FRANCISCO Aripiprazole (Aripiprazole 5 Mg Tablet) 7.5 mg PO DAILY [facility] Last Admin: 02/23/21 08:30 Dose: 7.5 mg Documented by: SAYRA Aspirin (Aspirin 81 Mg Tab.Chew) 81 mg PO DAILY [facility] Last Admin: 02/23/21 08:30 Dose: 81 mg Documented by: SAYRA Clonidine HCl (Clonidine Hcl 0.1 Mg Tablet) 0.1 mg PO BID [facility]; Protocol Last Admin: 02/23/21 20:21 Dose: 0.1 mg Documented by: FRANCISCO Heparin Sodium (Porcine) 50 (units/ Sodium Chloride 5 ml) 0 units IVFLUSH TID [facility] Last Admin: 02/24/21 08:15 Dose: Not Given Documented by: SAYRA Non-Admin Reason: IV Running Docusate Sodium (Docusate Sodium 100 Mg Capsule) 100 mg PO BID [facility] Last Admin: 02/24/21 08:15 Dose: Not Given Documented by: SAYRA Non-Admin Reason: Diarrhea Enoxaparin Sodium (Enoxaparin Sodium 80 Mg/0.8 Ml Syringe) 75 mg 1 mg/kg (75 mg) SUBCUT Q12H [facility] Last Admin: 02/24/21 05:59 Dose: 75 mg Documented by: FRANCISCO Fluconazole (Fluconazole 100 Mg Tablet) 200 mg PO BID [facility] Last Admin: 02/23/21 20:22 Dose: 200 mg Documented by: FRANCISCO Gabapentin (Gabapentin 100 Mg Capsule) 200 mg PO TID [facility] Last Admin: 02/23/21 20:21 Dose: 200 mg Documented by: FRANCISCO Lactated Ringer's (Lr) 1,000 mls @ 80 mls/hr IVCONT .[id number] [facility] Last Admin: 02/24/21 02:28 Dose: 80 mls/hr Documented by: FRANCISCO Melatonin (Melatonin 3 Mg Tablet) 6 mg PO BEDTIME PRN PRN Reason: Insomnia Methadone HCl (Methadone Hcl 20 Mg/2 Ml Oral.Conc) 45 mg PO DAILY [facility] Last Admin: 02/23/21 08:31 Dose: 45 mg Documented by: SAYRA Ondansetron HCl (Ondansetron Hcl 4 Mg/2 Ml Vial) 4 mg IVPUSH Q8H PRN PRN Reason: Nausea and Vomiting Oxycodone HCl (Oxycodone Hcl Immed Release 5 Mg Tablet) 5 mg PO Q6H PRN PRN Reason: Pain, Mild (Pain Scale 1-3) Last Admin: 02/24/21 06:00 Dose: 5 mg Documented by: FRANCISCO Pharmacy Consult (Consult Rx Perform Med Rec) 1 each MISCELLANE ONCE PRN PRN Reason: Consult order Prazosin HCl (Prazosin Hcl 1 Mg Capsule) 3 mg PO BEDTIME [facility]; Protocol Last Admin: 02/23/21 20:23 Dose: 3 mg Documented by: FRANCISCO Quetiapine Fumarate (Quetiapine Fumarate 300 Mg Tablet) 300 mg PO BEDTIME [facility] Last Admin: 02/23/21 20:23 Dose: 300 mg Documented by: FRANCISCO Senna (Sennosides 8.6 Mg Tablet) 17.2 mg PO BEDTIME PRN PRN Reason: Constipation Sodium Chloride (0.9 % Sodium Chloride Flush 3 Ml Syringe) 3 ml IVFLUSH QSHIFT [facility] Last Admin: 02/24/21 08:15 Dose: Not Given Documented by: SAYRA Non-Admin Reason: IV Running Sumatriptan Succinate (Sumatriptan Succinate 50 Mg Tablet) 50 mg PO Q2H PRN PRN Reason: Migraine Headache Last Admin: 02/19/21 20:40 Dose: 50 mg Documented by: AGUSTINA Topiramate (Topiramate 100 Mg Tablet) 200 mg PO BID [facility] Last Admin: 02/23/21 20:22 Dose: 200 mg Documented by: FRANCISCO Labs CBC & Chem 7: 02/15/21 08:01 02/21/21 08:58 Assessment and Plan (1) Candidemia: Status: Acute (2) Antiphospholipid antibody positive: Status: Acute Assessment and Plan: 40yo F with IDU, APLAS/RALPH complicated by CVA and multiple DVT/PE [s/p IVC filter, off anticoagulation since episode of menorrhagia in 2014], HTN, CKD, HCV, bipolar depression, PTSD recently admitted to [facility] 12/21/20 for MRSA bacteremia complicated by hypoxia requiring transfer to MICU, hospitalization complicated by bilateral empyema s/p bilateral chest tube placement, transferred to [facility] for Thoracic evaluation but did not require VATS discharged to rehab for IV ABX with planned end date of 02/13/21 but left AMA 3wk prematurely and has been abusing heroin presented to [facility] with chest pain, found to be septic with septic pulmonary emboli, left popliteal DVT, questionable bacteremia but definite candidemia 1.sepsis no further? bacteremia, has candidemia ?aspiration PNA ?02/13: 1/2 peripheral BCx multiple organisms -> contaminant ?02/13: 1/2 peripheral BCx Sandy albicans; 1/2 BCx from [facility] yeast -> initially was on caspofungin She had positive fungus on 02/13 and 02/14 and negative blood cultures on 02/16 Sandy is albicans generally sensitive to Diflucan 02/15: [facility] cath tip Cx: <15 cFU/mL Enterobacter cloacae 02/16: BCx NGTD d/c'ed vanco, completed 10 days ( zosyn+augmentin)-completed antibitics for aspiration. - ID following-total caspofungin+ fluconazole (7 days so far), continue fluconazole 01/12, ?Patient had hemoptysis-chest x-ray seems question of mild infiltrate right upper ,left lowermidlung pulm pulmonary followed the patient recommended to continue Diflucan as well as Augmentin for 10? days. 2. LLE DVT- APLAS d/w hematology-will switch Lovenox to 1 g per kg q.12 3. bradycardia - asymptomatic, probably due to clonidine + prazosin 4. anemia of chronic disease - monitor 5. opioid use disorder - methadone, Addiction Medicine following - QTc as above. - HIV screen negative, rescreen HCV with viral load [previously treated and cured with DAAs, may have been reinfected] Need to follow up with ID out patiently 6.troponin elevation - flat, likely due to sepsis 7. hypoK - repleted 8. HTN - continue amlodipine 9 CKD3 - SCr stable, monitor 10. mood disorder - continue topiramate, clonidine, prazosin, aripiprazole, quetiapine; appreciate psych consulted 11. dispo: ?adjust ed as per psych-patient need placement psych tomorrow Quality Stroke Does the patient have a stroke diagnosis?: No VTE Prior VTE?: Yes Approximate Date of Prior VTE: 02/13/21 VTE Risk Level:: Medical - moderate - high VTE Device Contraindication: Treatment Not Indicated VTE Drug Contraindication: N/A - Med Ordered
[2021-02-24] MEDS: methADONE HCl 20 MG/2 ML ORAL.CONC 45 MG PO (08:21)
[2021-02-24] MEDS: Aspirin 81 MG TAB.CHEW PO (08:21)
[2021-02-24] MEDS: Amoxicillin/Potassium Clav 875 MG TABLET PO (08:21)
[2021-02-24] MEDS: cloNIDine HCL 0.1 MG TABLET PO ×2 (08:21→20:50)
--- NOTE | 2021-02-24 10:15 | MHC.CM.PN ---
indicates confirmation/support on Thursday02/25/2021 10:00am D/C plan to [facility]. confirmed patient will not need IB ABX. CM to follow.
--- NOTE | 2021-02-24 11:36 | MHC.CM.PN ---
Spoke with Angelika LUNA on 02/24: please relay to MD first thing in am that ALL scripts requiring 30 day supply MUST be sent AHEAD of time to pharmacy by MD PRIOR to [facility] staff picking her up. These scripts MUST be ready for her. Thank you.
[2021-02-24] MEDS: Heparin Sodium,Porcine Flush 50 UNITS, 0.9 % Sodium Chloride Flush 5 ML IVFLUSH ×2 (14:45→20:51)
[2021-02-24] MEDS: 0.9 % Sodium Chloride Flush 3 ML SYRINGE IVFLUSH (14:46)
--- NOTE | 2021-02-24 18:51 | PC.NURSE ---
Patient reports diarrhea although stool meds have not been given. Stool sample collected. Oxycodone for anxiety related chest pain with good effect. No complaints/complications, will pass to oncoming RN.
[2021-02-24 19:23] LABS: CDiff Gene PCR NEGATIVE (Negative); Leukocytes Stool Qualitative NEGATIVE (NEGATIVE)
[2021-02-24] MEDS: QUEtiapine Fumarate 300 MG TABLET PO (20:48)
[2021-02-24] MEDS: Prazosin HCL 1 MG CAPSULE 3 MG PO (20:48)
[2021-02-25] VITALS: BP 105/69; PULSE 50; RESP 18; TEMP 36.4; O2SAT 93
[2021-02-25 03:37] VITALS: BP 109/65; PULSE 50; RESP 18; TEMP 36.9; O2SAT 100
[2021-02-25] MEDS: Enoxaparin Sodium 80 MG/0.8 ML SYRINGE 75 MG SUBCUT (06:27)
[2021-02-25 07:21] VITALS: BP 94/61; PULSE 49; RESP 18; TEMP 36.6; O2SAT 97
--- NOTE | 2021-02-25 08:21 | P.DS_ITS ---
DS: Providers Provider Date of Service: 02/25/21 Date of admission: 02/13/21 20:41 Date of discharge: 02/25/21 Primary care physician: Unknown Physician Consults: 02/13/21 20:37 Consult to Hematology / Oncology Routine Consulting Provider: Deborah Casiano Reason for consultation: DVT; hx APL syndrome; remotely on AC. 02/13/21 20:38 Addiction Medicine Routine Consulting Provider: Cecy Espino Reason for consultation: pt was on methadone; now using heroin Consult to Infectious Diseases Routine Consulting Provider: Karen Cobb Reason for consultation: cavitary lung lesion; pna; septic emboli; 02/14/21 06:26 Consult to Cardiology Routine Consulting Provider: Juan Washington Reason for consultation: bradycardia; due for echo to r/o vegetation 02/14/21 11:21 Consult to Care Team Routine Comment: Reason for consultation: heroin 02/14/21 13:59 Consult to Psychiatry Routine Consulting Provider: Psych Covering Reason for consultation: ptsd bipolar... meds? 02/18/21 10:54 Consult to Hematology / Oncology Routine Consulting Provider: [facility] Oncology/Hematology Reason for consultation: APLAS/RALPH 02/20/21 09:20 Consult to Pulmonology Routine Consulting Provider: Jose Lee Reason for consultation: haemoptysis Has provider been notified: No 02/20/21 11:54 Consult to Psychiatry Routine Consulting Provider: Psych Covering Reason for consultation: Medication review-multiple psych medication, needs fluconazole for fungal i DS: Diagnosis Discharge Diagnosis (1) Candidemia: Status: Acute (2) Antiphospholipid antibody positive: Status: Acute DS: Summary Hospital Course Hospital Course: 40-year-old female with a past medical history of IV drug abuse, history of antiphospholipid syndrome complicated by CVA, history of multiple DVT/PE status post IVC filter; was on anticoagulation and 2015; anticoagulation was discontinued post menorrhagia in 2014 and reportedly has not had any blood clots since then; hypertension, CKD, hepatitis-C, PTSD, depression, bipolar, history of inpatient psychiatric admissions; recently admitted to the [facility] for MRSA bacteremia/bilateral empyema status post chest tube placement; subsequently chest tube was removed and sent to rehab via to finish antibiotics via Port-A-Cath until 02/13/2021; patient had echocardiogram done which showed no evidence of vegetations, MRI of the lumbar spine with no evidence of epidural abscess at [facility];Patient left AMA from the rehab about 3 weeks ago; has been living at home and using heroin heavily on a daily basis; presented to the hospital today with a chief complaint of chest pains. Patient reports that she has been having chest pain for the past couple days, tight in nature; no associated lightheadedness dizziness sweating; complains of mild shortness of breath; denies any nausea vomiting or diarrhea. Denies any numbness tingling or focal weakness.? Denies any back pain. Denies any headaches or blurry visions. Mentioned that lately she has been snorting heroin. Reportedly patient was on methadone 76 mg until she was in the rehab and has not been taking anything in the past 1 week; ER course:? Per ER team patient had contrast allergy hence status CT scan without contrast which showed cavitary pulmonary lesions concern for septic emboli; patient was given IV vancomycin and Zosyn; also noted to have peripheral edema on bilateral legs; DVT study showed left popliteal DVT.? Discussed with from Hematology-Oncology suggested to start the patient on Levaquin. Also discussed with Cecy aquino from Addiction Medicine who recommended to give the patient methadone 20 mg and 5 mg after 4 hours if needed.? Admitted for further management. Hospital course: Patient was admitted for sepsis-subsequently was treated for aspiration pneumonia and completed the course of antibiotic as well as patient was found to have fungemia Sandy albicans was received initially caspofungin and now was switched to p.o. fluconazole-total anti fungal course was 14 weeks like to recommended as per ID, please complete the fluconazole. blood cultures multiple organism thought to be contaminant. HIV screen negative, rescreen HCV with viral load [previously treated and cured with DAAs, may have been reinfected] Need to follow up with ID out patiently. In addition please repeat chest imaging study to see resolution of pneumonia findings in 3-4 weeks. Left lower extremity DVT/APLAS: Seen by Hematology-recommended continue Lovenox since patient prefer Lovenox rather than switching on warfarin. She should be on lovenox up Q 12 as above. She needs to follow-up out patiently with hematology for further management. patient is to go to addiction program patient has mild bradycardia- asymptomatic, probably due to clonidine + prazosin, may adjust further these meds outpatiently as per psych. anemia of chronic disease Monitor cbc out patiently H&H is around 9/28.9, stable. Further workup outpatient. opioid use disorder: methadone, Addiction Medicine following QTc checked few time in 440's range CKD3- SCr stable, monitor BMP outpatient. mood disorder- continue topiramate, clonidine, prazosin, aripiprazole, quetiapine; appreciate psych consulted- patient needs addiction placement. Patient needs to follow-up with ID as above, as well as Hematology as above mentioned. Patient's all prescriptions were sent to the pharmacy 30 day supply, for the supply out patiently . Above management discussed with the patient in detail length she understand and in agreement with the above plan, time spent 50 minutes and 50% time spent on counseling. Significant findings: As above. Procedures performed: None. Treatment and response: As above. Complications: None. Time Spent with Patient Time attestation: Total time spent providing and/or coordinating discharge services: Discharge coordination time: Greater than 30 minutes Quality: Stroke Does the patient have a stroke diagnosis?: No Physical Exam Vital Signs: Vital Signs: Last Vital Signs Temp 97.8 F 02/25/21 07:21 Pulse 49 L 02/25/21 07:21 Resp 18 02/25/21 07:21 BP 94/61 02/25/21 07:21 Pulse Ox 97 02/25/21 07:21 Body Mass Index 24.6 constitutional:?not in acute distress HEENT: sclera anicteric, moist mucus membranes Neck: supple Lungs: air entry improving , no rales or wheezing Heart: bardycardic, no murmurs Abd: soft, non-tender, non-distended Ext: no leg edema, RUE midline catheter without signs on infection Skin: excoriated Neuro: alert and oriented x3, no focal findings Psych: restricted affect DS: Data Data Completed and Pending Labs on day of discharge: Laboratory Results - last 24 hr 02/24/21 02/24/21 18:15 18:15 Stool Leukocytes, Qual NEGATIVE C. difficile Tox B Gene NEGATIVE Preliminary micro results at discharge 02/14/21 11:49 Blood Culture - Preliminary Blood - Central Line Yeast Additional Comments Additional comments: CXr: MPRESSION: Patchy opacity right lower lobe, right upper lung and left midlung Discharge Plan Discharge Patient Disposition: Xfer Psychiatric Hosp Discharge Diagnosis: Aspiration pneumonia, fungemia, antiphospholipid syndrome Referrals: Deborah Casiano MD [Physician] - 1 Week (follow up in 1week) Karen Cobb MD [Physician] - 1 Week (follow up in 1week) Physician,Unknown [Primary Care Provider] - 1 Week Discharge Medications: New quetiapine 300 mg Tablet 300 mg PO BEDTIME Qty: 30 RF: 0 methadone [Methadose] 10 mg/mL Concentrate 45 mg PO DAILY Qty: 1 RF: 0 enoxaparin 80 mg/0.8 mL Syringe 80 mg subcut Q12H Qty: 8 RF: 0 fluconazole 100 mg Tablet 200 mg PO BID Qty: 12 RF: 0 Continued clonidine HCl 0.1 mg Tablet 0.1 mg PO BID PRN (Reason: Anxiety) RF: 0 sumatriptan succinate [Imitrex] 50 mg Tablet 50 mg PO Q2H PRN (Reason: Migraine Headache) RF: 0 amlodipine 10 mg Tablet 10 mg PO DAILY RF: 0 topiramate 200 mg Tablet 200 mg PO BID RF: 0 aspirin 81 mg Tablet,Chewable 81 mg PO DAILY RF: 0 melatonin 5 mg Tablet 5 mg PO BEDTIME PRN (Reason: Insomnia) RF: 0 polyethylene glycol 3350 [Miralax] 17 gram Powder In Packet 17 g PO DAILY RF: 0 prazosin 1 mg Capsule 3 mg PO BEDTIME RF: 0 lidocaine 5 % Adhesive Patch,Medicated 1 patch TOPICAL DAILY RF: 0 gabapentin 100 mg Capsule 200 mg PO BID RF: 0 aripiprazole 5 mg Tablet 7.5 mg PO DAILY RF: 0 ferrous sulfate 324 mg (65 mg iron) Tablet,Delayed Release (Dr/Ec) 324 mg PO DAILY RF: 0 Discontinued lorazepam 0.5 mg Tablet 0.5 mg PO Q4H PRN (Reason: Anxiety) RF: 0 vancomycin 1.25 gram Recon Soln 1.25 g IV Q24H RF: 0 quetiapine [Seroquel] 400 mg tablet 400 mg PO BEDTIME RF: 0 Discharge Orders: Discharge Order (Routine); Ordered 02/25/21 Ordered By: Sterling Coy Diet: advance to usual diet, low fat, low cholesterol and low salt diet Activity on Discharge: As tolerated Stand Alone Forms: Patient Portal Discharge page Care Plan Goals: Patient was admitted for sepsis-subsequently was treated for aspiration pneumonia and completed the course of antibiotic as well as patient was found to have fungemia Sandy albicans was received initially caspofungin and now was switched to p.o. fluconazole-total anti fungal course was 14 weeks like to recommended as per ID, please complete the fluconazole. Left lower extremity DVT/APLAS: Seen by Hematology-recommended continue Lovenox since patient prefer Lovenox rather than switching on warfarin. She should be on lovenox up Q 12 as above. She needs to follow-up out patiently with hematology for further management. patient is to go to addiction program Health Concerns: As above. Plan of Treatment: As above. Assessment: As above. Discharge Date/Time: 02/25/21 10:36
--- NOTE | 2021-02-25 09:01 | MHC.CM.PN ---
IMM 02/25/21 Female PNA Septic Emboli Bradycardia She is discharged to [facility] today. Dr Coy is sending all scripts to [address] Go, Behavioral health specialist is providng the Last dose letter to the pt. Nursing Watch Parts Grinder, Patti is pulling the Midline. AN EPI-PEN prescription was requested. The MD is adding that medication to the Med list.
[2021-02-25] MEDS: Fluconazole 100 MG TABLET 200 MG PO (09:06)
[2021-02-25] MEDS: Topiramate 100 MG TABLET 200 MG PO (09:06)
[2021-02-25] MEDS: ARIPiprazole 5 MG TABLET 7.5 MG PO (09:06)
[2021-02-25] MEDS: amLODIPine Besylate 10 MG TABLET PO (09:07)
[2021-02-25] MEDS: Gabapentin 100 MG CAPSULE 200 MG PO (09:07)
[2021-02-25] MEDS: Docusate Sodium 100 MG CAPSULE PO (09:07)
[2021-02-25] MEDS: Aspirin 81 MG TAB.CHEW PO (09:07)
[2021-02-25] MEDS: cloNIDine HCL 0.1 MG TABLET PO (09:08)
[2021-02-25] MEDS: methADONE HCl 20 MG/2 ML ORAL.CONC 45 MG PO (09:08)
[2021-02-25 09:40] LABS: COVID-19 Test Negative (Negative); IDNOW Serial# 9DD0AD1C
--- NOTE | 2021-02-25 09:43 | MHC.RECOVSUP ---
Recovery Support note: This news writer [facility] will be coming to [facility] to pick patient up at 1000. Discussed case with patient's CM and RN. Patient provided with last dose letter to present to her methadone clinic tomorrow. Last dose also faxed to [facility].
--- NOTE | 2021-02-25 10:45 | PC.NURSE ---
Midline removed by superviser Patti Cabrera. Pt given discharge instructions, verbalized understanding. Methadone last dose papers given to pt by Go as well as highlighted last dose given and next dose due on discharge instructions
== END 2021-02-25 10:36 | DRG 314 ==
LOC: HO.ED 16:38 → HO.EDOVER 20:49 → HO.IMC 02-14 11:24
PROVIDERS: Family Medicine; Nurse Practitioner Family; Admitting Provider Hospitalist; Emergency Provider Emergency Medicine Emergency Medical Services; Visit Provider Internal Medicine
DX: T80.211A Bloodstream infection due to central venous catheter, initial encounter (principal); B37.7 Candidal sepsis; J18.9 Pneumonia, unspecified organism; I26.90 Septic pulmonary embolism without acute cor pulmonale; I76 Septic arterial embolism; F11.20 Opioid dependence, uncomplicated; D68.61 Antiphospholipid syndrome; I82.402 Acute embolism and thrombosis of unspecified deep veins of left lower extremity; R04.2 Hemoptysis; F17.210 Nicotine dependence, cigarettes, uncomplicated; Z71.6 Tobacco abuse counseling; R00.1 Bradycardia, unspecified; Z20.822 Contact with and (suspected) exposure to COVID-19; Z86.718 Personal history of other venous thrombosis and embolism; F41.9 Anxiety disorder, unspecified; I12.9 Hypertensive chronic kidney disease with stage 1 through stage 4 chronic kidney disease, or unspecified chronic kidney disease; N18.30 Chronic kidney disease, stage 3 unspecified; D63.1 Anemia in chronic kidney disease; E87.6 Hypokalemia; F31.9 Bipolar disorder, unspecified; Z59.0 Homelessness; F43.10 Post-traumatic stress disorder, unspecified; Z88.2 Allergy status to sulfonamides; Z88.5 Allergy status to narcotic agent; Z79.82 Long term (current) use of aspirin; Z79.899 Other long term (current) drug therapy
CPT/HCPCS: 36410; 36415; 71045; 71046; 71250; 80048; 80076; 80202; 80307; 81001; 81025; 82077; 82550; 83605; 83735; 83880; 84484; 85007; 85027; 85610; 87040; 87045; 87046; 87071; 87077; 87186; 87205; 87389; 87493; 87522; 87635; 89055; 90686; 93005; 93306; 93970; 96365; 96372; 96375; 97161; 99285; J0637; J1642; J1650; J2543; J3370

== ENCOUNTER 2021-02-26 10:40 | Emergency (ER) | payer MEDICARE, SELFPAY ==
[2021-02-26 11:06] VITALS: BP 105/66; PULSE 64; RESP 17; TEMP 36.9; O2SAT 99; BMI 25.8
--- NOTE | 2021-02-26 11:51 | ED.GENADULT ---
HPI - General Adult General Chief complaint: General Medical Stated complaint: methadone Time Seen by Provider: 02/26/21 11:12 Source: patient Mode of arrival: ambulatory Limitations: no limitations History of Present Illness HPI narrative: 40-year-old female here seeking her methadone dose. Of note the patient was admitted 02/13-02/25 for DVT, septic emboli, PNA, fungemia. She was sent home on lovenoz 80mg SQ BID, PO fluconazole for total course and methadone 45 mg. Patient here as she was unable to get her methadone dose today as there was no MD on site. Last dose yesterday. She has spoke to recovery team and they have confirmed dose and recommended she come for it. Patient also tells me that she is confused asthma per discharge instructions. She tells me that when she went to the pharmacy they did not have her fluconazole or Lovenox. She also tells me that she was on gabapentin 200 mg twice a day while she was here but was sent home on gabapentin 200 mg once a day. She is also missing her EpiPen which was supposed to be called and on discharge it was not. No physical complaints Related Data Home Medications Medication Instructions Recorded Confirmed albuterol sulfate 90 mcg/actuation 2 puff INHALATION Q6H PRN 02/28/20 02/13/21 aerosol inhaler famotidine 20 mg tablet 20 mg PO DAILY 02/28/20 02/13/21 amlodipine 10 mg tablet 10 mg PO DAILY 02/13/21 02/13/21 aspirin 81 mg chewable tablet 81 mg PO DAILY 02/13/21 02/13/21 clonidine HCl 0.1 mg tablet 0.1 mg PO BID PRN 02/13/21 02/13/21 melatonin 5 mg tablet 5 mg PO BEDTIME PRN 02/13/21 02/13/21 sumatriptan succinate 50 mg tablet 50 mg PO Q2H PRN 02/13/21 02/13/21 (Imitrex) topiramate 200 mg tablet 200 mg PO BID 02/13/21 02/13/21 aripiprazole 5 mg tablet 7.5 mg PO DAILY 02/15/21 02/15/21 ferrous sulfate 324 mg (65 mg 324 mg PO DAILY 02/15/21 02/15/21 iron) tablet,delayed release gabapentin 100 mg capsule 200 mg PO BID 02/15/21 02/15/21 lidocaine 5 % topical patch 1 patch TOPICAL DAILY 02/15/21 02/15/21 polyethylene glycol 3350 17 gram 17 g PO DAILY 02/15/21 02/15/21 oral powder packet (Miralax) prazosin 1 mg capsule 3 mg PO BEDTIME 02/15/21 02/15/21 Previous Rx's Medication Instructions Recorded enoxaparin 80 mg/0.8 mL 80 mg SUBCUT Q12H #8 ml 02/25/21 subcutaneous syringe fluconazole 100 mg tablet 200 mg PO BID #12 tab 02/25/21 methadone 10 mg/mL oral 45 mg PO DAILY #1 ml 02/25/21 concentrate (Methadose) quetiapine 300 mg tablet 300 mg PO BEDTIME #30 tab 02/25/21 Allergies Allergy/AdvReac Type Severity Reaction Status Date / Time bee pollen [BEE STINGS] Allergy Severe Anaphylaxis Verified 02/26/21 11:05 codeine [CODEINE] Allergy Severe ANAPHYLAXIS Verified 02/26/21 11:05 Iodinated Contrast Media Allergy Severe DIFFICULTY Verified 02/26/21 11:05 [IV DYE, IODINE CONTAINING BREATHING CONTRAST ] nut - unspecified [nut] Allergy Intermediate Rash Verified 02/26/21 11:05 shellfish derived Allergy Intermediate Rash Verified 02/26/21 11:05 Sulfa (Sulfonamide Allergy Unknown ANAPHYLAXIS Verified 02/26/21 11:05 Antibiotics) [SULFA (SULFONAMIDE ANTIBIOTICS)] Review of Systems Review of Systems: Yes all other systems are reviewed and are negative Constitutional: Constitutional: Reports no additional constitutional complaints, Denies body ache(s), Denies chills, Denies fever(s), Denies headache(s) and Denies weakness Eyes: Eyes: Reports no additional eye complaints and Denies change in vision ENT: Reports system reviewed and no additional complaints, except as documented, Denies dizziness, Denies headache(s), Denies nasal congestion, Denies nasal discharge and Denies neck pain Cardiovascular: Cardiovascular: Reports no additional cardiovascular complaints, Denies chest pain, Denies leg edema and Denies dyspnea Respiratory: Respiratory: Reports no additional respiratory complaints, Denies cough and Denies dyspnea Gastrointestinal: Gastrointestinal: Reports no additional gastrointestinal complaints, Denies abdominal pain, Denies diarrhea, Denies nausea and Denies vomiting Genitourinary: Genitourinary: Reports no additional female genitourinary complaints and Denies urinary incontinence Musculoskeletal: Musculoskeletal: Reports no additional musculoskeletal complaints, Denies back pain, Denies arthralgias, Denies joint swelling, Denies neck pain, Denies numbness and Denies tingling Integumentary/Breasts: Skin/Breast: Reports system reviewed and no additional complaints, except as docu and Denies rash Neurologic: Reports system reviewed and no additional complaints, except as documented, Denies Abnormal speech present, Denies dizziness, Denies headache(s), Denies numbness, Denies tingling and Denies weakness PMFSH Past Medical History Attestation statement: The following information was validated with the patient. Source: old records reviewed and nursing notes reviewed Medical History Candidemia DVT (deep venous thrombosis) Sander filter in place Lupus Opiate abuse, continuous Pneumonia Pulmonary emboli Surgical History History of appendectomy Hx of splenectomy Social History Social History Household Members: None Housing: Homeless Do you presently have visiting nurse or other home services: No Patient Tobacco Use Status: Current someday Tobacco user Tobacco use type: Cigarette e-Cigarette/Vaping Use: Currently Using Second Hand Smoke Exposure: Yes Substance Use Type: Crack/Cocaine and Opiates Advance Directives: No Patient : No service: No Current occupational status: employed Physical Exam Vital Signs: Vital Signs: Last Vital Signs Temp 98.4 F 02/26/21 11:06 Pulse 64 02/26/21 11:06 Resp 17 02/26/21 11:06 BP 105/66 02/26/21 11:06 Pulse Ox 99 02/26/21 11:06 Body Mass Index 25.8 Const: General: cooperative, healthy appearing, comfortable and no acute distress Orientation/consciousness: patient oriented x3 Limitations: no limitations HENMT: Head: Yes normal to inspection Ears: hearing grossly normal bilaterally General nose exam: Normal external nose present Face and sinus: Yes normal facial exam Mouth: Normal oral and palatal mucosa present Throat: Yes posterior oropharynx normal Eyes: General: appearance normal, both eyes and all related structures Pupils: Equal, round and reactive pupils present Neck: Neck: Yes normal visual inspection Chest: Chest palpation & inspection: normal inspection of the chest Resp: Effort & Inspection: normal respiratory effort Auscultation: clear to auscultation bilaterally Cardio: Rate: regular rate Rhythm: regular rhythm Peripheral pulses: Peripheral pulses 2+ throughout GI: Inspection: Yes normal to inspection Palpation (GI): Soft to palpation and nontender Auscultation: normal bowel sounds Back/Spine/Pelvis: Thoracic/Lumbar Spine: thoracic and lumbar spine normal to inspection Skin: General skin exam: no rashes or lesions noted Neuro: General: patient oriented x3, no focal motor deficits and normal sensation to monofilament Cranial nerves: Yes Equal, round and reactive pupils present Cognition (Neuro): normal cognition Speech: No Abnormal speech present Gait exam (Neuro): Normal gait present Motor exam (neuro): 5/5 motor strength present throughout Extrem: General: Yes normal to inspection Course Course Course Narrative: 40-year-old female here seeking methadone dose. Patient also has multiple medication questions from her discharge yesterday. Her dose was confirmed an ordered by the psychiatric nurse practitioner. This was given by nursing in the ER. Patient tells me that she went to the pharmacy and they did not have her Lovenox or fluconazole or EpiPen. She is also concerned over her gabapentin dosage. I called and spoke to the pharmacist at [facility] [place]. Unfortunately as her Lovenox was called and last night they did not have a dose today and so they had to ordered. They will have it tomorrow morning. Patient given a dose of 80 mg of subcutaneous Lovenox while she was here in the ER. They will also have her fluconazole an EpiPen ready today so the patient can pick that up. Patient was concerned that her dose of gabapentin was not ordered correctly. I did review her chart. She was receiving 200 mg twice a day while here in the hospital. She shows me a prescription that shows gabapentin 200 mg once a day. Therefore I spoke to the pharmacist and an additional 200 mg daily was called in for a 30 day supply. Reviewed worrisome signs and symptoms with the patient when to return to the emergency department. Comfortable discharge home. Medical Decision Making Medical Records Medical records reviewed: Yes I reviewed the patient's medical records. Lab Data Lab results reviewed: Yes I reviewed the patient's lab results. Discharge Plan Discharge Clinical Impression: DVT (deep venous thrombosis), Opioid use disorder, severe, dependence Patient Disposition: Home, Self-Care Instructions: Deep Vein Thrombosis (ED), Opioid Use Disorder (ED) Additional Instructions: You received methadone 45 mg and Lovenox 80 mg subcutaneous Your gabapentin dose was changed via phone to the pharmacy I also confirm that you will have your Lovenox available tomorrow and her fluconazole available today at the pharmacy. you also have an EpiPen there if you need it Prescriptions: No Action clonidine HCl 0.1 mg Tablet 0.1 mg PO BID PRN (Reason: Anxiety) RF: 0 sumatriptan succinate [Imitrex] 50 mg Tablet 50 mg PO Q2H PRN (Reason: Migraine Headache) RF: 0 amlodipine 10 mg Tablet 10 mg PO DAILY RF: 0 topiramate 200 mg Tablet 200 mg PO BID RF: 0 aspirin 81 mg Tablet,Chewable 81 mg PO DAILY RF: 0 melatonin 5 mg Tablet 5 mg PO BEDTIME PRN (Reason: Insomnia) RF: 0 polyethylene glycol 3350 [Miralax] 17 gram Powder In Packet 17 g PO DAILY RF: 0 prazosin 1 mg Capsule 3 mg PO BEDTIME RF: 0 lidocaine 5 % Adhesive Patch,Medicated 1 patch TOPICAL DAILY RF: 0 gabapentin 100 mg Capsule 200 mg PO BID RF: 0 aripiprazole 5 mg Tablet 7.5 mg PO DAILY RF: 0 ferrous sulfate 324 mg (65 mg iron) Tablet,Delayed Release (Dr/Ec) 324 mg PO DAILY RF: 0 quetiapine 300 mg Tablet 300 mg PO BEDTIME Qty: 30 RF: 0 methadone [Methadose] 10 mg/mL Concentrate 45 mg PO DAILY Qty: 1 RF: 0 enoxaparin 80 mg/0.8 mL Syringe 80 mg subcut Q12H Qty: 8 RF: 0 fluconazole 100 mg Tablet 200 mg PO BID Qty: 12 RF: 0 Referrals: Physician,Nonstaff [Primary Care Provider] - 2 days Interventions: ED Discharge Assessment Last Done: 02/26/21 12:33 Discharge Date/Time: 02/26/21 12:33
--- NOTE | 2021-02-26 11:53 | PC.NURSE ---
methadaone done verified and faxed to pharmacy.
[2021-02-26] MEDS: methADONE HCl 20 MG/2 ML ORAL.CONC 45 MG PO (12:03)
[2021-02-26] MEDS: Enoxaparin Sodium 80 MG/0.8 ML SYRINGE SUBCUT (12:17)
--- NOTE | 2021-02-26 15:55 | MHC.RECOVRN ---
40 year old female presented to [facility] to obtain methadone dose due to inability to obtain it at [facility]. Pt was [place] [facility] [place], referral had been sent to the [facility]. T/w sent email to [facility] provider (Dr. Lua) as well as network programmer (Joann Jones) clarifying pts acceptance to their program. Awaiting call/email back. Pt provided with last dose letter and Lyft to [facility] for 6 am intake tomorrow (02/27). Pt encouraged to call t/w if any issues arise.
== END 2021-02-26 12:33 | disposition home or self-care (01) ==
PROVIDERS: Emergency Provider Emergency Medicine
DX: I82.409 Acute embolism and thrombosis of unspecified deep veins of unspecified lower extremity (principal); F11.20 Opioid dependence, uncomplicated; F14.90 Cocaine use, unspecified, uncomplicated; F17.210 Nicotine dependence, cigarettes, uncomplicated; Z71.6 Tobacco abuse counseling; Z79.899 Other long term (current) drug therapy
CPT/HCPCS: 96372; 99283; 99284; J1650

== ENCOUNTER 2021-02-27 06:46 | Emergency (ER) | payer MEDICARE, SELFPAY ==
[2021-02-27 06:55] VITALS: BP 116/75; PULSE 63; RESP 16; TEMP 36.6; O2SAT 99; BMI 25.1
--- NOTE | 2021-02-27 08:02 | ED.MEDCLEAR ---
HPI - Medical Clearance General Chief complaint: Medical Clearance Stated complaint: needs to speak with recovery? Time Seen by Provider: 02/27/21 08:02 History of Present Illness HPI Narrative: This is a 40-year-old female who was recently discharged from the hospital on February 25, 2021 with pneumonia. She is coming in today because upon her most recent discharge they set her up with [facility] , and the methadone clinic. However she states she has not had luck with the methadone clinic and was not able to get her dose this AM or yesterday. She states that staff here from the hospital sent over information to [facility] on [facility] for her to receive methadone again yesterday. She went this morning however they told her that they did not have her information, and they would not be able to dose her until Thursday because there is no doctor there. Yesterday she came in to get a dose of methadone since again she was not able to get it from the clinic. She received 45 here in the emergency department. She has no medical complaints at this time. She denies chest pain, SOB, abdominal pain, agitation, AMS, fevers, chills, anxiety. Related Information Home Medications Medication Instructions Recorded Confirmed albuterol sulfate 90 mcg/actuation 2 puff INHALATION Q6H PRN 02/28/20 02/13/21 aerosol inhaler famotidine 20 mg tablet 20 mg PO DAILY 02/28/20 02/13/21 amlodipine 10 mg tablet 10 mg PO DAILY 02/13/21 02/13/21 aspirin 81 mg chewable tablet 81 mg PO DAILY 02/13/21 02/13/21 clonidine HCl 0.1 mg tablet 0.1 mg PO BID PRN 02/13/21 02/13/21 melatonin 5 mg tablet 5 mg PO BEDTIME PRN 02/13/21 02/13/21 sumatriptan succinate 50 mg tablet 50 mg PO Q2H PRN 02/13/21 02/13/21 (Imitrex) topiramate 200 mg tablet 200 mg PO BID 02/13/21 02/13/21 aripiprazole 5 mg tablet 7.5 mg PO DAILY 02/15/21 02/15/21 ferrous sulfate 324 mg (65 mg 324 mg PO DAILY 02/15/21 02/15/21 iron) tablet,delayed release gabapentin 100 mg capsule 200 mg PO BID 02/15/21 02/15/21 lidocaine 5 % topical patch 1 patch TOPICAL DAILY 02/15/21 02/15/21 polyethylene glycol 3350 17 gram 17 g PO DAILY 02/15/21 02/15/21 oral powder packet (Miralax) prazosin 1 mg capsule 3 mg PO BEDTIME 02/15/21 02/15/21 Previous Rx's Medication Instructions Recorded enoxaparin 80 mg/0.8 mL 80 mg SUBCUT Q12H #8 ml 02/25/21 subcutaneous syringe fluconazole 100 mg tablet 200 mg PO BID #12 tab 02/25/21 methadone 10 mg/mL oral 45 mg PO DAILY #1 ml 02/25/21 concentrate (Methadose) quetiapine 300 mg tablet 300 mg PO BEDTIME #30 tab 02/25/21 gabapentin 100 mg capsule 200 mg PO BID #120 cap 02/26/21 gabapentin 100 mg capsule 200 mg PO BID #60 cap 02/26/21 Allergies Allergy/AdvReac Type Severity Reaction Status Date / Time bee pollen [BEE STINGS] Allergy Severe Anaphylaxis Verified 02/27/21 06:54 codeine [CODEINE] Allergy Severe ANAPHYLAXIS Verified 02/27/21 06:54 Iodinated Contrast Media Allergy Severe DIFFICULTY Verified 02/27/21 06:54 [IV DYE, IODINE CONTAINING BREATHING CONTRAST ] nut - unspecified [nut] Allergy Intermediate Rash Verified 02/27/21 06:54 shellfish derived Allergy Intermediate Rash Verified 02/27/21 06:54 Sulfa (Sulfonamide Allergy Unknown ANAPHYLAXIS Verified 02/27/21 06:54 Antibiotics) [SULFA (SULFONAMIDE ANTIBIOTICS)] Review of Systems Review of Systems: Yes all other systems are reviewed and are negative PMFSH Past Medical History Medical History Candidemia DVT (deep venous thrombosis) [place] filter in place Lupus Opiate abuse, continuous Pneumonia Pulmonary emboli Surgical History History of appendectomy Hx of splenectomy Social History Social History Household Members: None Housing: Homeless Do you presently have visiting nurse or other home services: No Alcohol intake: never Patient Tobacco Use Status: Current someday Tobacco user Tobacco use type: Cigarette e-Cigarette/Vaping Use: Currently Using Second Hand Smoke Exposure: Yes Use of substances other than those prescribed or required for medical reasons: No Substance Use Type: Crack/Cocaine and Opiates Advance Directives: No Advance Directives Information Provided: No service: No Current occupational status: employed Physical Exam Vital Signs: Vital Signs: Last Vital Signs Temp 97.8 F 02/27/21 06:55 Pulse 63 02/27/21 10:33 Resp 13 02/27/21 10:33 BP 131/76 02/27/21 10:33 Pulse Ox 97 02/27/21 10:33 Body Mass Index 25.1 Const: General: cooperative and no acute distress Orientation/consciousness: oriented to person and oriented to place Limitations: no limitations HENMT: Head: Yes normal to inspection, Yes normocephalic and Yes atraumatic Ears: external ears normal General nose exam: Normal external nose present Face and sinus: Yes normal facial exam Eyes: General: appearance normal, both eyes and all related structures Pupils: Equal, round and reactive pupils present Neck: Neck: Yes normal visual inspection, Yes no lymphadenopathy, Yes trachea midline and Yes supple Chest: Chest palpation & inspection: normal inspection of the chest and normal palpation of entire chest wall Resp: Effort & Inspection: normal respiratory effort and able to speak in complete sentences Auscultation: clear to auscultation bilaterally Cardio: Rate: regular rate Rhythm: regular rhythm Heart sounds: S1 normal heart sound present, S2 normal heart sound present and no murmurs GI: Inspection: Yes normal to inspection Palpation (GI): Soft to palpation, nontender and no guarding Auscultation: normal bowel sounds : General: Yes no CVA tenderness Back/Spine/Pelvis: Back: no CVA tenderness Skin: General skin exam: no rashes or lesions noted Neuro: General: oriented to person and oriented to place Cranial nerves: Yes CN's II-XII intact bilaterally and Yes Equal, round and reactive pupils present Cognition (Neuro): normal cognition Motor exam (neuro): 5/5 motor strength present throughout Extrem: General: Yes normal to inspection Psych: Appearance: grossly normal Speech and movement: Normal speech and movement present Affect: normal affect Attitude: cooperative Thought process: Normal thought process present Thought content: Normal thought content present Course Course Course Narrative: This is a 40-year-old female presents to the emergency department since she was unable to get her methadone dose from the methadone clinic this morning. She states she was in here yesterday, they dosed her here gave her 45 of methadone. She states that the hospital staff stent over her information to the methadone clinic for them to does her, however the methadone clinic never received her information common a state that she will not be able to get dose until Thursday when the doctor returns to the methadone clinic. She has no complaints at this time. She is not in acute withdraw. She appears well I tiger text has been sent out and Natalie patrick she states she will be down in the emergency department to speak to her, and help her find a methadone clinic will be able to see her. Reevaluation(s) Reevaluation #1: Spoke to Natalie Patrick who consulted with Cecy Espino, who recommend giving 55 mg of methadone here today. She has also set her up with another methadone clinic where she can get her next dose. Patient aware of plan. Safe for discharge home she has no medical complaints. She will go to [facility] tomorrow to get her dose of methadone. Discharge Plan Discharge Clinical Impression: Methadone maintenance therapy patient, Opiate dependence Patient Disposition: Home, Self-Care Instructions: Opioid Use Disorder (ED) Additional Instructions: Natalie has talked to a Doctor at [facility], they are expecting you at the methadone clinic tomorrow morning. Today in the emergency department you were given 55 mg of methadone at 11:16 a.m. Please see not use any opiates, this can be very dangerous It is also important that you follow-up with your primary care provider. Please return to the emergency department with new or worsening symptoms Prescriptions: No Action clonidine HCl 0.1 mg Tablet 0.1 mg PO BID PRN (Reason: Anxiety) RF: 0 sumatriptan succinate [Imitrex] 50 mg Tablet 50 mg PO Q2H PRN (Reason: Migraine Headache) RF: 0 amlodipine 10 mg Tablet 10 mg PO DAILY RF: 0 topiramate 200 mg Tablet 200 mg PO BID RF: 0 aspirin 81 mg Tablet,Chewable 81 mg PO DAILY RF: 0 melatonin 5 mg Tablet 5 mg PO BEDTIME PRN (Reason: Insomnia) RF: 0 polyethylene glycol 3350 [Miralax] 17 gram Powder In Packet 17 g PO DAILY RF: 0 prazosin 1 mg Capsule 3 mg PO BEDTIME RF: 0 lidocaine 5 % Adhesive Patch,Medicated 1 patch TOPICAL DAILY RF: 0 gabapentin 100 mg Capsule 200 mg PO BID RF: 0 aripiprazole 5 mg Tablet 7.5 mg PO DAILY RF: 0 ferrous sulfate 324 mg (65 mg iron) Tablet,Delayed Release (Dr/Ec) 324 mg PO DAILY RF: 0 quetiapine 300 mg Tablet 300 mg PO BEDTIME Qty: 30 RF: 0 methadone [Methadose] 10 mg/mL Concentrate 45 mg PO DAILY Qty: 1 RF: 0 enoxaparin 80 mg/0.8 mL Syringe 80 mg subcut Q12H Qty: 8 RF: 0 fluconazole 100 mg Tablet 200 mg PO BID Qty: 12 RF: 0 gabapentin 100 mg capsule 200 mg PO BID Qty: 60 RF: 0 gabapentin 100 mg capsule 200 mg PO BID Qty: 120 RF: 0 Referrals: Jose Rashid, [facility] [Primary Care Provider] - 2 days Stand Alone Forms: Work/School Release
--- NOTE | 2021-02-27 09:54 | MHC.RECOVRN ---
Pt presented to [facility] today due to inability to be dosed at [facility] again this morning. T/w spoke with Dr. Lua, provider at [facility], who informed t/w that she was unable to go to the office today, hence the pt not being able to be seen and dosed. Dr. Lua is writing an order for pt to receive 55 mg tomorrow, 02/28, and the medical receptionist biller, Shari, has put pt on the schedule for tomorrow as well. Pt will see Dr. Lua on Thursday, 03/01, for an intake. Dr. Lua informed t/w that a specific time on Thursday is not necessary, however, the earlier the better. Pt and ED provider, as well as Cecy Espino APRN, aware.
[2021-02-27 10:33] VITALS: BP 131/76; PULSE 63; RESP 13; O2SAT 97
--- NOTE | 2021-02-27 11:03 | HE.PHANOTE ---
Per Cecy Espino, we will be increasing the Methadone dose to 55 mg today.
[2021-02-27] MEDS: methADONE HCl 20 MG/2 ML ORAL.CONC 55 MG PO (11:24)
== END 2021-02-27 11:49 | disposition home or self-care (01) ==
PROVIDERS: Emergency Provider Emergency Medicine Emergency Medical Services; PCP Nurse Practitioner Family
DX: F11.29 Opioid dependence with unspecified opioid-induced disorder (principal); F14.10 Cocaine abuse, uncomplicated; Z71.51 Drug abuse counseling and surveillance of drug abuser; Z79.899 Other long term (current) drug therapy; F17.210 Nicotine dependence, cigarettes, uncomplicated; Z71.6 Tobacco abuse counseling
CPT/HCPCS: 99283; 99284

== ENCOUNTER 2021-05-09 07:12 | Inpatient (IN) | payer MEDICARE, SELFPAY ==
--- NOTE | ~2021-05-09 | US_ITS ---
EXAMINATION: US VENOUS ULTRASOUND WITH DOPPLER LOWER EXTREMITY, BILATERAL CLINICAL INFORMATION: Bilateral lower extremity swelling. History of DVT. COMPARISON: None TECHNIQUE: Ultrasound of the deep veins is performed from the hip to the calf with compression sonography and color and pulse Doppler assessment. Spectral analysis with color-flow imaging is performed. FINDINGS: RIGHT: There is normal venous compression and respiratory variation and augmented flow. The visualized common femoral vein, superficial femoral vein, profunda femoral vein, popliteal vein, and the trifurcation region shows no evidence of deep venous thrombosis. There is no significant popliteal fossa cyst. LEFT: There is normal venous compression and respiratory variation and augmented flow. The visualized common femoral vein, superficial femoral vein, profunda femoral vein, popliteal vein, and the trifurcation region shows no evidence of deep venous thrombosis. There is no significant popliteal fossa cyst. If the patient's symptoms persist, followup ultrasound in 5 days 7 days might be of value to exclude proximal propagation from a non-visualized calf vein. US/US venous duplex LE BI IMPRESSION: No DVT demonstrated in the bilateral lower extremities.
--- NOTE | ~2021-05-09 | CT_ITS ---
EXAMINATION: CT CHEST WITHOUT CONTRAST CLINICAL INFORMATION: Chest pain COMPARISON: Radiograph 02/20/2021. CT 02/13/2021. TECHNIQUE: Multidetector volumetric CT imaging of the chest was done. Axial MIP volume rendering provided. Sagittal and coronal reformatted images were obtained. This CT examination was performed using dose optimization techniques as appropriate, variously including the following: *Automated exposure control *Adjustment of mA and/or kV according to patient size (this includes techniques or standardized protocols for targeted exams where dose is matched to indication/reason for exam; i.e. extremities or head) *Use of iterative reconstruction technique DLP: 207 mGy-cm FINDINGS: LUNGS: The central airways are patent. There are chronic changes in the lungs. There are thin-walled cavities again identified in both upper lobes. These are decreased in prominence from prior. For instance in axial dimension the left upper lobe cavity measures 0.7 x 0.5 cm on series 6 image 109. Measured at a similar level on prior this had measured 1.8 x 1 cm. Bandlike opacities are seen in both lungs favoring atelectasis or scarring. The previous right upper lobe area of consolidation has significantly improved with minimal linear opacity remaining in this area. There is no new consolidation. MEDIASTINUM: Normal heart size. No pericardial effusion. No mediastinal lymphadenopathy. PLEURA: There is no pleural effusion. No pneumothorax. AXILLA: No lymphadenopathy. UPPER ABDOMEN: Splenectomy with surgical clips present. OSSEOUS STRUCTURES: No acute or suspicious osseous abnormality. T12 vertebral body anterior wedging. CT/CT chest wo con IMPRESSION: Improving appearance of the lungs compared to prior CT. The prior consolidation has resolved. The areas of cavitation are decreasing in size. Bandlike peripheral opacities are seen bilaterally which could represent atelectasis or scarring. Fleischner guidelines were followed.
--- NOTE | ~2021-05-09 | XR_ITS ---
EXAMINATION: XR CHEST CLINICAL INFORMATION: Pneumonia COMPARISON: Prior chest x-ray January 2021. CT May 09, 2021. TECHNIQUE: 2 views of the chest were obtained. FINDINGS: There are scattered linear opacities in both lungs less evident compared with January 2021 and likely unchanged compared with recent CT. Cardiomediastinal intact. Postsurgical changes in the upper abdomen with IVC filter partially visualized. XR/XR chest 2V IMPRESSION: Bilateral opacities decreased compared to prior likely sequela of previously noted inflammatory infectious process.
--- NOTE | 2021-05-09 07:35 | ED.PSYCH ---
HPI - Psych General Chief Complaint: Psychiatric Symptoms Stated Complaint: crisis Time Seen by Provider: 05/09/21 07:36 Source: patient and old records reviewed Mode of arrival: ambulatory Limitations: no limitations History of Present Illness HPI Narrative: 40 yo female hx of antiphospholipid syndrome with hx of CVA, multiple DVT/PE s/p IVC filter no longer taking her lovenox x 6 weeks, HTN, CKD, Hep C, PTSD, depression, seizures, bipolar, bacteremia, empyema requiring chest tubes, admitted here back in January with sepsis treated for aspiration pneumonia as well as fungemia she reports only taking the medications after she left for 1 week and hasn't been on any medications for 6 weeks. She could not get to the methadone clinic so she has been using. Here in crisis - hopeless and depressed MD complaint: suicidal ideation, feels depressed and substance abuse Onset (ago): week(s) (6) Duration: getting worse History of same: Yes Relieving factors: none Exacerbating factors: drug use Context: recent drug abuse, not taking psychiatric medications and significant life stressor Associated psychiatric symptoms: depression and suicidal ideation Associated symptoms: other (reports not feeling well and her chest feels tight) Treatments prior to arrival: none If self harm: admits thoughts of self harm Related Data Home Medications Medication Instructions Recorded Confirmed amlodipine 10 mg tablet 10 mg PO DAILY 02/13/21 05/09/21 clonidine HCl 0.1 mg tablet 0.1 mg PO TID PRN 02/13/21 05/09/21 Allergies Allergy/AdvReac Type Severity Reaction Status Date / Time bee pollen [BEE STINGS] Allergy Severe Anaphylaxis Verified 02/27/21 06:54 codeine [CODEINE] Allergy Severe ANAPHYLAXIS Verified 02/27/21 06:54 Iodinated Contrast Media Allergy Severe DIFFICULTY Verified 02/27/21 06:54 [IV DYE, IODINE CONTAINING BREATHING CONTRAST ] nut - unspecified [nut] Allergy Intermediate Rash Verified 02/27/21 06:54 shellfish derived Allergy Intermediate Rash Verified 02/27/21 06:54 Sulfa (Sulfonamide Allergy Unknown ANAPHYLAXIS Verified 02/27/21 06:54 Antibiotics) [SULFA (SULFONAMIDE ANTIBIOTICS)] Review of Systems Review of Systems: Constitutional : No Weight loss, No Fever, No Chills ENT/Mouth : No sore throat, No Rhinorrhea Eyes: No Eye Pain, No Swelling Cardiovascular : pos Chest Pain, no SOB, no Dyspnea on Exertion, No Orthopnea, No Edema, No Palpitations Respiratory : No Cough, No Sputum Gastrointestinal : no Nausea, No Vomiting, No Diarrhea, No abdominal Pain, No Hematochezia, No Melena Genitourinary : No Dysuria, No Urinary Frequency Musculoskeletal : No joint pain, No Myalgias, No Joint Swelling Skin : No Skin Lesions, No rash Neuro : No Weakness, No Numbness, No Dizziness, No Headache Psych : pos Anxiety/Panic, pos Depression, pos SI Heme/Lymph: No Bruising, No Lymphadenopathy Endocrine : No Polyuria, No Polydipsia All other systems reviewed and are negative [facility] Past Medical History Attestation statement: The following information was validated with the patient. Medical History Bipolar disorder Candidemia DVT (deep venous thrombosis) [place] filter in place Lupus Opiate abuse, continuous Opioid use disorder, severe, dependence Pneumonia PTSD (post-traumatic stress disorder) Pulmonary emboli Surgical History History of appendectomy Hx of splenectomy Social History Social History Household Members: None Housing: Homeless Do you presently have visiting nurse or other home services: No Alcohol intake: never Patient Tobacco Use Status: Current someday Tobacco user Tobacco use type: Cigarette e-Cigarette/Vaping Use: Currently Using Second Hand Smoke Exposure: Yes Substance Use Type: Crack/Cocaine and Opiates Advance Directives: Yes Advance Directives on File: Yes Advance Directives Date on File: 02/14/21 Healthcare Proxy: Yes Guardian: No Patient : No service: No Current occupational status: employed Physical Exam Vital Signs: Vital Signs: Last Vital Signs Temp 97.8 F 05/09/21 07:49 Pulse 64 05/09/21 12:31 Resp 18 05/09/21 12:31 BP 188/102 H 05/09/21 12:31 Pulse Ox 98 05/09/21 12:31 BMI result Body Mass Index 21.7 Appearance: Alert. Oriented X3. No acute distress. Eyes: Pupils equal, round and reactive to light. ENT: Pharynx normal. Neck: Normal inspection. Neck supple. CVS: Normal heart rate and rhythm. Pulses normal. Respiratory: No respiratory distress. Breath sounds normal. Abdomen: Soft and nontender. Skin: Skin warm and dry. Normal skin color. Normal skin turgor. Extremities: bilteral 1+ pitting lower extremity edema. No calf ttp Active track parson, small raised area left upper arm mild warmth and erythema Neuro: Oriented X 3. No motor deficit. No sensory deficit. Course Course Course Narrative: seen by Darnell TIRE BAGGER from addiction medicine start methadone 25mg CT chest improved at this time DVT study - negative at this time trop no delta rise, likely due to HTN - ordered her amlodipine 10mg medically cleared at this time. Physician observation started at 102pm. Patient placed in physician observation because the patient needed more time for inpatient assessment to determine need for inpatient level of care. At the time observation was started the patient's vitals were stable, patient is alert and oriented but slightly agitated, Neuro: nonfocal, CV RRR, Lungs clear LUE mild warmth and erythema of track karen site - PO cephalexin ordered Physician observation ended at 3pm. Patient to be admitted inpatient. NAD, lungs clear, CV RRR, Abd nontender, Neuro intact. Disposition is for M5 MDM - Psych MDM Narrative Medical decision making narrative: 40 yo female hx of antiphospholipid syndrome with hx of CVA, multiple DVT/PE s/p IVC filter no longer taking her lovenox x 6 weeks, HTN, CKD, Hep C, PTSD, depression, seizures, bipolar, bacteremia, empyema requiring chest tubes, admitted here back in January dx with sepsis treated for aspiration pneumonia as well as fungemia she reports only taking the medications after she left for 1 week - at this time in crisis but also c/o chest pain will need labs, cultures, CT chest to r/o pneumonia DVT studies of LE - needs medical clearance prior to N consult Lab Data Result diagrams: 05/09/21 09:27 05/09/21 09:38 Labs: Lab Results 05/09/21 05/09/21 05/09/21 Range/Units 08:33 09:27 09:38 WBC 11.1 H (4.8-10.8) X10*3/uL RBC 4.42 (4.20-5.50) X10*6/uL Hgb 13.3 (12.0-16.0) g/dl Hct 41.6 (37.0-47.0) % MCV 94.1 (80.0-98.0) fL MCH 30.1 (27.0-33.0) pg MCHC 32.0 (31.0-35.0) g/dl RDW 14.7 (11.0-16.0) % Plt Count 287 (160-400) X10*3/uL MPV 13.0 H (9.4-12.3) fL Immature Gran % (Auto) Cancelled Neut % (Auto) Cancelled Lymph % (Auto) Cancelled [place] % (Auto) Cancelled Eos % (Auto) Cancelled Baso % (Auto) Cancelled Lymph # (Auto) Cancelled [place] # (Auto) Cancelled Eos # (Auto) Cancelled Baso # (Auto) Cancelled Abs Immat Gran (auto) Cancelled Absolute Neuts (auto) Cancelled Absolute Nucleated RBC 0.000 (0.0-0.012) X10*3/uL Nucleated RBC % (auto) 0.0 (0.0-0.2) /100WBC Neutrophils % (Manual) 67 (45-73) % Band Neutrophils % 0 L (3-5) % Lymphocytes % (Manual) 25 (20-40) % Monocytes % (Manual) 5 (2-11) % Eosinophils % (Manual) 3 (0-4) % Abs Neuts (Manual) 7.4 (2.0-8.3) X10*3/uL Lymphocytes # (Manual) 2.8 (1.2-4.9) X10*3/uL Monocytes # (Manual) 0.6 (0.1-1.2) X10*3/uL Eosinophils # (Manual) 0.3 (0.0-0.4) X10*3/uL Platelet Estimate NORMAL (NORMAL) Large Platelets PRESENT Plt Morphology Comment NOTED RBC Morphology NORMAL PT 11.2 (9.9-13.0) SEC INR 1.0 (0.9-1.1) APTT 55.8 H (24.1-38.0) SEC Sodium (135-145) mmol/L Potassium (3.3-5.1) mmol/L Chloride (96-108) mmol/L Carbon Dioxide (22-29) mmol/L Anion Gap (12-20) BUN (9-16) mg/dL Creatinine (0.5-1.4) mg/dL Estim Creat Clear Calc Estimated GFR Random Glucose (60-115) mg/dL Lactic Acid (0.5-2.0) mmol/L Calcium (8.4-10.2) mg/dL Magnesium (1.6-2.6) mg/dL Total Bilirubin (0.0-1.0) mg/dL Direct Bilirubin (0.0-0.5) mg/dL AST (5-31) U/L ALT (0-31) U/L Alkaline Phosphatase (39-117) U/L Troponin I High Sens (<3.5-17.0) ng/L C-Reactive Protein (< or = 0.50) mg/dL Total Protein (6.5-8.0) g/dL Albumin (3.5-5.0) g/dL Urine Color STRAW Urine Appearance CLEAR Urine pH 7.0 (5.0-8.0) Ur Specific [place] 1.020 (1.005-1.025) Urine Protein 2+ H (NEG-TRACE) MG/DL Urine Glucose (UA) NEG (NEG) MG/DL Urine Ketones NEG (NEG) MG/DL Urine Blood TRACE (NEG) Urine Nitrite NEG (NEG) Ur Leukocyte Esterase NEG (NEG) Urine RBC 0-2 (0) /HPF Urine WBC 1-4 (0-4) /HPF Ur Squamous Epith Cells 1+ /LPF Urine Bacteria TRACE /LPF COVID-19 (ADAM) (Negative) COVID-19 Clin Com 05/09/21 05/09/21 05/09/21 Range/Units 09:38 09:38 09:38 WBC (4.8-10.8) X10*3/uL RBC (4.20-5.50) X10*6/uL Hgb (12.0-16.0) g/dl Hct (37.0-47.0) % MCV (80.0-98.0) fL MCH (27.0-33.0) pg MCHC (31.0-35.0) g/dl RDW (11.0-16.0) % Plt Count (160-400) X10*3/uL MPV (9.4-12.3) fL Immature Gran % (Auto) Neut % (Auto) Lymph % (Auto) [place] % (Auto) Eos % (Auto) Baso % (Auto) Lymph # (Auto) [place] # (Auto) Eos # (Auto) Baso # (Auto) Abs Immat Gran (auto) Absolute Neuts (auto) Absolute Nucleated RBC (0.0-0.012) X10*3/uL Nucleated RBC % (auto) (0.0-0.2) /100WBC Neutrophils % (Manual) (45-73) % Band Neutrophils % (3-5) % Lymphocytes % (Manual) (20-40) % Monocytes % (Manual) (2-11) % Eosinophils % (Manual) (0-4) % Abs Neuts (Manual) (2.0-8.3) X10*3/uL Lymphocytes # (Manual) (1.2-4.9) X10*3/uL Monocytes # (Manual) (0.1-1.2) X10*3/uL Eosinophils # (Manual) (0.0-0.4) X10*3/uL Platelet Estimate (NORMAL) Large Platelets Plt Morphology Comment RBC Morphology PT (9.9-13.0) SEC INR (0.9-1.1) APTT (24.1-38.0) SEC Sodium 141 (135-145) mmol/L Potassium 3.9 (3.3-5.1) mmol/L Chloride 104 (96-108) mmol/L Carbon Dioxide 28 (22-29) mmol/L Anion Gap 13 (12-20) BUN 22 H (9-16) mg/dL Creatinine 1.51 H (0.5-1.4) mg/dL Estim Creat Clear Calc 49.4 Estimated GFR 38 Random Glucose 95 (60-115) mg/dL Lactic Acid 1.6 (0.5-2.0) mmol/L Calcium 9.6 (8.4-10.2) mg/dL Magnesium 1.8 (1.6-2.6) mg/dL Total Bilirubin 0.2 (0.0-1.0) mg/dL Direct Bilirubin < 0.2 (0.0-0.5) mg/dL AST 20 (5-31) U/L ALT 13 (0-31) U/L Alkaline Phosphatase 84 D (39-117) U/L Troponin I High Sens 27.0 H (<3.5-17.0) ng/L C-Reactive Protein 0.23 (< or = 0.50) mg/dL Total Protein 7.0 (6.5-8.0) g/dL Albumin 3.3 L (3.5-5.0) g/dL Urine Color Urine Appearance Urine pH (5.0-8.0) Ur Specific [place] (1.005-1.025) Urine Protein (NEG-TRACE) MG/DL Urine Glucose (UA) (NEG) MG/DL Urine Ketones (NEG) MG/DL Urine Blood (NEG) Urine Nitrite (NEG) Ur Leukocyte Esterase (NEG) Urine RBC (0) /HPF Urine WBC (0-4) /HPF Ur Squamous Epith Cells /LPF Urine Bacteria /LPF COVID-19 (ADAM) (Negative) COVID-19 Clin Com 05/09/21 05/09/21 Range/Units 10:02 12:30 WBC (4.8-10.8) X10*3/uL RBC (4.20-5.50) X10*6/uL Hgb (12.0-16.0) g/dl Hct (37.0-47.0) % MCV (80.0-98.0) fL MCH (27.0-33.0) pg MCHC (31.0-35.0) g/dl RDW (11.0-16.0) % Plt Count (160-400) X10*3/uL MPV (9.4-12.3) fL Immature Gran % (Auto) Neut % (Auto) Lymph % (Auto) [place] % (Auto) Eos % (Auto) Baso % (Auto) Lymph # (Auto) [place] # (Auto) Eos # (Auto) Baso # (Auto) Abs Immat Gran (auto) Absolute Neuts (auto) Absolute Nucleated RBC (0.0-0.012) X10*3/uL Nucleated RBC % (auto) (0.0-0.2) /100WBC Neutrophils % (Manual) (45-73) % Band Neutrophils % (3-5) % Lymphocytes % (Manual) (20-40) % Monocytes % (Manual) (2-11) % Eosinophils % (Manual) (0-4) % Abs Neuts (Manual) (2.0-8.3) X10*3/uL Lymphocytes # (Manual) (1.2-4.9) X10*3/uL Monocytes # (Manual) (0.1-1.2) X10*3/uL Eosinophils # (Manual) (0.0-0.4) X10*3/uL Platelet Estimate (NORMAL) Large Platelets Plt Morphology Comment RBC Morphology PT (9.9-13.0) SEC INR (0.9-1.1) APTT (24.1-38.0) SEC Sodium (135-145) mmol/L Potassium (3.3-5.1) mmol/L Chloride (96-108) mmol/L Carbon Dioxide (22-29) mmol/L Anion Gap (12-20) BUN (9-16) mg/dL Creatinine (0.5-1.4) mg/dL Estim Creat Clear Calc Estimated GFR Random Glucose (60-115) mg/dL Lactic Acid (0.5-2.0) mmol/L Calcium (8.4-10.2) mg/dL Magnesium (1.6-2.6) mg/dL Total Bilirubin (0.0-1.0) mg/dL Direct Bilirubin (0.0-0.5) mg/dL AST (5-31) U/L ALT (0-31) U/L Alkaline Phosphatase (39-117) U/L Troponin I High Sens 36.1 H (<3.5-17.0) ng/L C-Reactive Protein (< or = 0.50) mg/dL Total Protein (6.5-8.0) g/dL Albumin (3.5-5.0) g/dL Urine Color Urine Appearance Urine pH (5.0-8.0) Ur Specific [place] (1.005-1.025) Urine Protein (NEG-TRACE) MG/DL Urine Glucose (UA) (NEG) MG/DL Urine Ketones (NEG) MG/DL Urine Blood (NEG) Urine Nitrite (NEG) Ur Leukocyte Esterase (NEG) Urine RBC (0) /HPF Urine WBC (0-4) /HPF Ur Squamous Epith Cells /LPF Urine Bacteria /LPF COVID-19 (ADAM) Negative (Negative) COVID-19 Clin Com See Note ECG Data Attestation: I personally reviewed and interpreted this ECG as follows: ECG interpretation date: 05/09/21 ECG interpretation time: 10:20 Interpretation: Rate: 54 Rhythm: sinus bradycardia [place]: normal Normal P waves. Normal SHARON. Normal QRS complex. Poor R wave progression ST T wave : flat lateral T waves, no CHRISTA qTC: 434 prior studies: changed from prior Jan 2021 The study has been interpreted contemporaneously by me. . Discharge Plan Discharge Clinical Impression: Substance abuse, HTN (hypertension), Cellulitis Patient Disposition: Admitted As Inpatient Prescriptions: No Action clonidine HCl 0.1 mg Tablet 0.1 mg PO TID PRN (Reason: Anxiety) RF: 0 amlodipine 10 mg Tablet 10 mg PO DAILY RF: 0
[2021-05-09 07:49] VITALS: BP 168/103; PULSE 62; RESP 18; TEMP 36.6; O2SAT 97; BMI 21.7
--- NOTE | 2021-05-09 07:52 | ECG_ITS ---
Test Reason : blood clot Blood Pressure : / mmHG Vent. Rate : 054 BPM Atrial Rate : 054 BPM P-R Int : 184 ms QRS Dur : 080 ms QT Int : 458 ms P-R-T Axes : 051 022 083 degrees QTc Int : 434 ms Sinus bradycardia Septal infarct , age undetermined Abnormal ECG When compared with ECG of 21-FEB-2021 09:00, Septal infarct is now Present T wave inversion no longer evident in Inferior leads Referred By: Adrianna Gunn Electronically Signed By:Juan Washington
--- NOTE | 2021-05-09 08:36 | PHA.MEDREC ---
Pharmacy Consult ? Medication Reconciliation Pharmacy has completed the medication reconciliation.
[2021-05-09 08:57] LABS: Appearance Urine CLEAR; Color Urine STRAW; Glucose Urine UA NEG (NEG); Leukocyte Esterase Urine NEG (NEG); Nitrite Urine NEG (NEG); UACC Culture Trigger NO; Urine Blood TRACE (NEG); Urine Ketones NEG (NEG); Urine Protein 2+ MG/DL (NEG-TRACE)
[2021-05-09 08:59] LABS: Squamous Epithelial Cell Urine 1+ /LPF
[2021-05-09 09:00] LABS: Bacteria Urine TRACE /LPF; RBC Urine 0-2 /HPF (0)
[2021-05-09 09:51] LABS: Hematocrit 41.6 % (37.0-47.0); Hemoglobin 13.3 g/dl (12.0-16.0); Mean Corpuscular Hemoglobin 30.1 pg (27.0-33.0); Mean Corpuscular Volume 94.1 fL (80.0-98.0); Platelet Count 287 X10*3/uL (160-400); Red Blood Count 4.42 X10*6/uL (4.20-5.50); Red Cell Distribution Width 14.7 % (11.0-16.0)
[2021-05-09 09:54] LABS: Prothrombin Time 11.2 SEC (9.9-13.0)
[2021-05-09 09:56] LABS: WBC ABN SCTR FOR CBC 1
[2021-05-09 09:56] LABS: Partial Thromboplastin Time 55.8 SEC (24.1-38.0)
[2021-05-09 09:57] LABS: Lactic Acid 1.6 mmol/L (0.5-2.0)
--- NOTE | 2021-05-09 10:00 | MHC.RECOVRN ---
Addendum entered by Natalie Patrick 05/09/21 10:11: Pt had received 55 mg methadone at [facility] on 02/27 with the plan to continue at [facility] the following day. Unclear when patient's last dose at [facility] was. Prior to that, pt had been seen at [facility] and was receiving take home bottles. Last stable dose was 76 mg on Jan 20. Original Note: Met with pt in ED10 to discuss substance use. Pt familiar with t/w from previous consults. After last admission, pt accepted to [facility]. While there, pt reports having a seizure and being admitted to [facility] x 5 days. After d/c from the hospital, pt was unable to return to [facility]. Pt reports 1/2 pack heroin, IV, daily x 6 weeks, last use [employer]. Pt reporting withdrawal symptoms at this time including hot/cold flashes, anxiety, restless legs. Discussed with Dr. Gunn, pt will be ordered 25 mg methadone at this time. Will continue to follow. Cecy Espino APRN, aware.
[2021-05-09] MEDS: methADONE HCl 20 MG/2 ML ORAL.CONC 25 MG PO (10:01)
[2021-05-09 10:08] LABS: Alanine Aminotransferase 13 U/L (0-31); Albumin Level 3.3 g/dL (3.5-5.0); Alkaline Phosphatase 84 U/L (39-117); Anion Gap 13 (12-20); Aspartate Amino Transferase 20 U/L (5-31); Bilirubin Direct < 0.2 mg/dL (0.0-0.5); Bilirubin Total 0.2 mg/dL (0.0-1.0); Blood Urea Nitrogen 22 mg/dL (9-16); C Reactive Protein 0.23 mg/dL (< or = 0.50); Calcium 9.6 mg/dL (8.4-10.2); Carbon Dioxide 28 mmol/L (22-29); Chloride 104 mmol/L (96-108); Creatinine Clr Calc Pharmacy 49.4; Estimated Glomerular Filt Rate 38; Glucose Random 95 mg/dL (60-115); Magnesium 1.8 mg/dL (1.6-2.6); Potassium 3.9 mmol/L (3.3-5.1); Sodium 141 mmol/L (135-145)
[2021-05-09 10:14] LABS: Eosinophils Percent Manual 3 % (0-4); Lymphocytes Percent Manual 25 % (20-40); Monocytes Percent Manual 5 % (2-11); Neutrophils Percent Manual 67 % (45-73)
[2021-05-09 10:16] LABS: Platelet Estimate NORMAL (NORMAL); RBC Morphology NORMAL
[2021-05-09 10:17] VITALS: BP 178/96; PULSE 58; RESP 14; O2SAT 98
[2021-05-09 10:18] LABS: Large Platelet PRESENT; Platelet Morphology Comment NOTED
[2021-05-09 10:22] LABS: Band Neutrophils Percent 0 % (3-5); Eosinophils Absolute Manual 0.3 X10*3/uL (0.0-0.4); Lymphocytes Absolute Manual 2.8 X10*3/uL (1.2-4.9); Monocytes Absolute Manual 0.6 X10*3/uL (0.1-1.2); Neutrophils Absolute Manual 7.4 X10*3/uL (2.0-8.3); White Blood Count 11.1 X10*3/uL (4.8-10.8)
[2021-05-09 10:34] LABS: COVID-19 Test Negative (Negative); IDNOW Serial# 9DD0AD1C
[2021-05-09 12:31] VITALS: BP 188/102; PULSE 64; RESP 18; O2SAT 98
[2021-05-09] MEDS: amLODIPine Besylate 10 MG TABLET PO (12:53)
[2021-05-09 12:59] LABS: Troponin-I High Sensitivity 36.1 ng/L (<3.5-17.0)
[2021-05-09] MEDS: cephALEXin 500 MG CAPSULE PO ×3 (14:52→20:07)
[2021-05-09] MEDS: cloNIDine HCL 0.1 MG TABLET PO (14:53)
--- NOTE | 2021-05-09 16:21 | MHC.RECOVRN ---
Attempted to meet with pt to f/u regarding methadone. Pt asleep.
[2021-05-09 19:16] VITALS: BP 169/122; PULSE 70; RESP 16
[2021-05-09] MEDS: methADONE HCl 20 MG/2 ML ORAL.CONC 10 MG PO (20:07)
[2021-05-09] MEDS: cloNIDine HCL 0.2 MG TABLET PO (20:07)
--- NOTE | 2021-05-09 20:13 | PC.ADMIT ---
40 y.o. female with suicidal ideation admitted on a conditional voluntary basis arrived on the unit via wheelchair from the [facility] ED at 17:01. PT self presented to [facility] with suicidal ideation with a plan and intent. PT has an extensive medical history including chronic long standing substance abuse ,DVT, hepatitis C, lupus,antiphospholipid syndrome, PE (filter in place) and a recent inpatient admission to [facility] for sepsis and treated for aspiration pneumonia as well as fungemia but has been medically cleared for admission onto this unit. All legals signed, patient cooperative with admission process but began to be too sleepy to complete. NO SI/HI at this time.
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
[2021-05-09] MEDS: Gabapentin 100 MG CAPSULE 200 MG PO (21:03)
[2021-05-09] MEDS: QUEtiapine Fumarate 300 MG TABLET PO (21:03)
[2021-05-09] MEDS: Topiramate 100 MG TABLET 200 MG PO (21:03)
[2021-05-09 21:20] VITALS: BP 124/79
[2021-05-10] MEDS: Acetaminophen 325 MG TABLET 650 MG PO ×2 (00:35→17:42)
[2021-05-10 00:36] VITALS: BP 167/100; PULSE 92
[2021-05-10] MEDS: cloNIDine HCL 0.1 MG TABLET PO ×2 (00:36→12:22)
[2021-05-10 06:00] VITALS: BP 187/95; PULSE 68; RESP 16; TEMP 36.8; O2SAT 97
[2021-05-10] MEDS: methADONE HCl 20 MG/2 ML ORAL.CONC 40 MG PO (09:16)
[2021-05-10] MEDS: Gabapentin 100 MG CAPSULE 200 MG PO ×3 (09:16→21:13)
[2021-05-10 09:17] VITALS: BP 187/95; PULSE 68
[2021-05-10] MEDS: cephALEXin 500 MG CAPSULE PO ×4 (09:17→21:13)
[2021-05-10] MEDS: ARIPiprazole 5 MG TABLET PO (09:17)
[2021-05-10] MEDS: Topiramate 100 MG TABLET PO ×2 (09:17→21:14)
[2021-05-10] MEDS: amLODIPine Besylate 10 MG TABLET PO (09:17)
[2021-05-10] MEDS: Nicotine 21 MG PATCH.TD24 TRANSDERMA (12:21)
[2021-05-10 12:22] VITALS: BP 129/86; PULSE 68
--- NOTE | 2021-05-10 14:12 | HO.ADDICTCON ---
History of Present Illness Date of Service: 05/10/2021 Chief Complaint: Depression, SI Reason for Consult: methadone titration Requesting physician: Sera Huitron Discussed with referring provider: Yes Sources of Information: patient interviewed and chart reviewed HPI Narrative: Patient is a 40-year-old female with diagnosis of opioid use disorder known to this development writer via previous medical admissions. She is currently psychiatrically admitted for suicidal ideation and worsening depression. Patient reports that she had been on methadone 70 mg until sometime in April. She was being followed out to the [facility] office. She reports that she was discharged from the treatment program in which she was residing, and as a result somehow ended up in [place] and began using large amounts of heroin and cocaine again. She states she has been using half a pack a day (approximately 50 or so bags) daily IV. She identified being discharged from her program and having a large sum of money from a recent settlement as being major triggers. She was given a total of 35 mg of methadone yesterday to treat withdrawal symptoms. When seen by this development writer earlier this morning she had just received her methadone dose, and was not feeling very well. She is reporting body aches, diaphoresis, chills, nausea and overall malaise. She would like to continue titrating dose to therapeutic effect. Past Psychiatric History: Past meds: prazosin 3 mg -Hx of multiple [facility] admissions, CSS, TSS, and ATS treatment. Pt was last psychiatrically admitted on M5 in September of 2019. -No current OP psych treatment -Hx of suicide attempts, last in September of 2019 intentionally ODing on heroin. Hx of ODing on meds, heroin. Review of Systems Constitutional: Reports as per HPI Diagnostics Vital Signs (24Hr): Vital Signs - 24 hr 05/09/21 19:16 05/09/21 21:20 05/10/21 00:36 Temperature Pulse Rate 70 92 Respiratory Rate 16 Blood Pressure 169/122 H 124/79 167/100 H Pulse Oximetry 05/10/21 06:00 05/10/21 09:17 05/10/21 12:22 Temperature 98.2 F Pulse Rate 68 68 68 Respiratory Rate 16 Blood Pressure 187/95 H 187/95 H 129/86 Pulse Oximetry 97 BMI result Body Mass Index 21.7 Labs Results: 05/09/21 09:27 05/09/21 09:38 Labs: Laboratory Results - last 48 hr 05/09/21 05/09/21 05/09/21 08:33 09:27 09:38 WBC 11.1 H RBC 4.42 Hgb 13.3 Hct 41.6 MCV 94.1 MCH 30.1 MCHC 32.0 RDW 14.7 Plt Count 287 MPV 13.0 H Immature Gran % (Auto) Cancelled Neut % (Auto) Cancelled Lymph % (Auto) Cancelled [place] % (Auto) Cancelled Eos % (Auto) Cancelled Baso % (Auto) Cancelled Lymph # (Auto) Cancelled [place] # (Auto) Cancelled Eos # (Auto) Cancelled Baso # (Auto) Cancelled Abs Immat Gran (auto) Cancelled Absolute Neuts (auto) Cancelled Absolute Nucleated RBC 0.000 Nucleated RBC % (auto) 0.0 Neutrophils % (Manual) 67 Band Neutrophils % 0 L Lymphocytes % (Manual) 25 Monocytes % (Manual) 5 Eosinophils % (Manual) 3 Abs Neuts (Manual) 7.4 Lymphocytes # (Manual) 2.8 Monocytes # (Manual) 0.6 Eosinophils # (Manual) 0.3 Platelet Estimate NORMAL Large Platelets PRESENT Plt Morphology Comment NOTED RBC Morphology NORMAL PT 11.2 INR 1.0 APTT 55.8 H Sodium Potassium Chloride Carbon Dioxide Anion Gap BUN Creatinine Estim Creat Clear Calc Estimated GFR Random Glucose Lactic Acid Calcium Magnesium Total Bilirubin Direct Bilirubin AST ALT Alkaline Phosphatase Troponin I High Sens C-Reactive Protein Total Protein Albumin Urine Color STRAW Urine Appearance CLEAR Urine pH 7.0 Ur Specific [place] 1.020 Urine Protein 2+ H Urine Glucose (UA) NEG Urine Ketones NEG Urine Blood TRACE Urine Nitrite NEG Ur Leukocyte Esterase NEG Urine RBC 0-2 Urine WBC 1-4 Ur Squamous Epith Cells 1+ Urine Bacteria TRACE COVID-19 (ADAM) COVID-19 Clin Com 05/09/21 05/09/21 05/09/21 09:38 09:38 09:38 WBC RBC Hgb Hct MCV MCH MCHC RDW Plt Count MPV Immature Gran % (Auto) Neut % (Auto) Lymph % (Auto) [place] % (Auto) Eos % (Auto) Baso % (Auto) Lymph # (Auto) [place] # (Auto) Eos # (Auto) Baso # (Auto) Abs Immat Gran (auto) Absolute Neuts (auto) Absolute Nucleated RBC Nucleated RBC % (auto) Neutrophils % (Manual) Band Neutrophils % Lymphocytes % (Manual) Monocytes % (Manual) Eosinophils % (Manual) Abs Neuts (Manual) Lymphocytes # (Manual) Monocytes # (Manual) Eosinophils # (Manual) Platelet Estimate Large Platelets Plt Morphology Comment RBC Morphology PT INR APTT Sodium 141 Potassium 3.9 Chloride 104 Carbon Dioxide 28 Anion Gap 13 BUN 22 H Creatinine 1.51 H Estim Creat Clear Calc 49.4 Estimated GFR 38 Random Glucose 95 Lactic Acid 1.6 Calcium 9.6 Magnesium 1.8 Total Bilirubin 0.2 Direct Bilirubin < 0.2 AST 20 ALT 13 Alkaline Phosphatase 84 D Troponin I High Sens 27.0 H C-Reactive Protein 0.23 Total Protein 7.0 Albumin 3.3 L Urine Color Urine Appearance Urine pH Ur Specific [place] Urine Protein Urine Glucose (UA) Urine Ketones Urine Blood Urine Nitrite Ur Leukocyte Esterase Urine RBC Urine WBC Ur Squamous Epith Cells Urine Bacteria COVID-19 (ADAM) COVID-19 Clin Com 05/09/21 05/09/21 10:02 12:30 WBC RBC Hgb Hct MCV MCH MCHC RDW Plt Count MPV Immature Gran % (Auto) Neut % (Auto) Lymph % (Auto) [place] % (Auto) Eos % (Auto) Baso % (Auto) Lymph # (Auto) [place] # (Auto) Eos # (Auto) Baso # (Auto) Abs Immat Gran (auto) Absolute Neuts (auto) Absolute Nucleated RBC Nucleated RBC % (auto) Neutrophils % (Manual) Band Neutrophils % Lymphocytes % (Manual) Monocytes % (Manual) Eosinophils % (Manual) Abs Neuts (Manual) Lymphocytes # (Manual) Monocytes # (Manual) Eosinophils # (Manual) Platelet Estimate Large Platelets Plt Morphology Comment RBC Morphology PT INR APTT Sodium Potassium Chloride Carbon Dioxide Anion Gap BUN Creatinine Estim Creat Clear Calc Estimated GFR Random Glucose Lactic Acid Calcium Magnesium Total Bilirubin Direct Bilirubin AST ALT Alkaline Phosphatase Troponin I High Sens 36.1 H C-Reactive Protein Total Protein Albumin Urine Color Urine Appearance Urine pH Ur Specific [place] Urine Protein Urine Glucose (UA) Urine Ketones Urine Blood Urine Nitrite Ur Leukocyte Esterase Urine RBC Urine WBC Ur Squamous Epith Cells Urine Bacteria COVID-19 (ADAM) Negative COVID-19 Clin Com See Note Imaging Radiology Impressions: ITS Impressions Chest CT 05/09/21 09:15 IMPRESSION: Improving appearance of the lungs compared to prior CT. The prior consolidation has resolved. The areas of cavitation are decreasing in size. Bandlike peripheral opacities are seen bilaterally which could represent atelectasis or scarring. Fleischner guidelines were followed. Venous Duplex 05/09/21 09:53 IMPRESSION: No DVT demonstrated in the bilateral lower extremities. Mental Status Exam Mental Status Exam Patient Appearance: Appropriate (Laying in bed, ill-appearing) Patient Orientation: Person, Place, Time and Situation Level of Consciousness: Awake and Appropriate Patient Behavior: Cooperative Mood Description: Flat Affect Description: Flat Patient Cognition Impaired: No Thought Process: Goal Oriented Thought Content: positive for Goal Oriented Judgement: Fair Medications Medications Current Medications Acetaminophen (Acetaminophen 325 Mg Tablet) 650 mg PO Q6H PRN PRN Reason: Headache/Pain Mild Scale (1-3) Last Admin: 05/10/21 00:35 Dose: 650 mg Documented by: Al Hydroxide/Mg Hydroxide (Magnesium Hydrox/Alum Hydrox 30 Ml Oral.Susp) 30 ml PO Q6H PRN PRN Reason: Heartburn/Nausea Amlodipine Besylate (Amlodipine Besylate 10 Mg Tablet) 10 mg PO DAILY [facility]; Protocol Last Admin: 05/10/21 09:17 Dose: 10 mg Documented by: Aripiprazole (Aripiprazole 5 Mg Tablet) 5 mg PO DAILY [facility] Last Admin: 05/10/21 09:17 Dose: 5 mg Documented by: Cephalexin HCl (Cephalexin 500 Mg Capsule) 500 mg PO QID [facility] Last Admin: 05/10/21 12:22 Dose: 500 mg Documented by: Clonidine HCl (Clonidine Hcl 0.1 Mg Tablet) 0.1 mg PO TID PRN; Protocol PRN Reason: Anxiety Last Admin: 05/10/21 12:22 Dose: 0.1 mg Documented by: Gabapentin (Gabapentin 100 Mg Capsule) 200 mg PO TID [facility] Last Admin: 05/10/21 09:16 Dose: 200 mg Documented by: Hydroxyzine HCl (Hydroxyzine Hcl 25 Mg Tablet) 25 mg PO Q6H PRN PRN Reason: Anxiety Magnesium Hydroxide (Milk Of Magnesia 30 Ml Oral.Susp) 30 ml PO DAILY PRN PRN Reason: Constipation Nicotine (Nicotine 21 Mg Patch.Td24) 21 mg TRANSDERMA DAILY [facility] Last Admin: 05/10/21 12:21 Dose: 21 mg Documented by: Quetiapine Fumarate (Quetiapine Fumarate 300 Mg Tablet) 300 mg PO BEDTIME [facility] Last Admin: 05/09/21 21:03 Dose: 300 mg Documented by: Topiramate (Topiramate 100 Mg Tablet) 100 mg PO BID [facility] Last Admin: 05/10/21 09:17 Dose: 100 mg Documented by: Trazodone HCl (Trazodone Hcl 50 Mg Tablet) 50 mg PO BEDTIME PRN PRN Reason: Insomnia Allergies Allergies Allergy/AdvReac Type Severity Reaction Status Date / Time bee pollen [BEE STINGS] Allergy Severe Anaphylaxis Verified 02/27/21 06:54 codeine [CODEINE] Allergy Severe ANAPHYLAXIS Verified 02/27/21 06:54 Iodinated Contrast Media Allergy Severe DIFFICULTY Verified 02/27/21 06:54 [IV DYE, IODINE CONTAINING BREATHING CONTRAST ] nut - unspecified [nut] Allergy Intermediate Rash Verified 02/27/21 06:54 shellfish derived Allergy Intermediate Rash Verified 02/27/21 06:54 Sulfa (Sulfonamide Allergy Unknown ANAPHYLAXIS Verified 02/27/21 06:54 Antibiotics) [SULFA (SULFONAMIDE ANTIBIOTICS)] Assessment & Plan Assessment & Plan (1) Opioid use disorder, severe, dependence: Status: Acute Code(s): F11.20 - Opioid dependence, uncomplicated Assessment and Plan: Received methadone 40 mg today Plan for 50 mg of methadone tomorrow (Thursday) Plan for 55 mg of methadone Thursday and Thursday Will reassess on Thursday morning Attending provider aware of plan (2) Cocaine use disorder: Status: Acute Code(s): F14.10 - Cocaine abuse, uncomplicated I spent __35____ minutes with the patient and/or on the patient floor today, greater than?50% of which was spent counseling/coordinating care. [facility] Past Medical History Medical History Bipolar disorder Candidemia DVT (deep venous thrombosis) Sander filter in place Lupus Opiate abuse, continuous Opioid use disorder, severe, dependence Pneumonia PTSD (post-traumatic stress disorder) Pulmonary emboli Surgical History Surgical History History of appendectomy Hx of splenectomy Social History Social History Household Members: None Housing: Apartment Do you presently have visiting nurse or other home services: No Alcohol intake: never Patient Tobacco Use Status: Current someday Tobacco user Tobacco use type: Cigarette Smoked in Last 30 Days: Yes e-Cigarette/Vaping Use: Never Used Patient Interested in Nicotine Replacement: Yes Patient Given Instructions on How to Stop Smoking: Yes Date Education Initiated: 05/09/21 Second Hand Smoke Exposure: Yes Substance Use Type: Crack/Cocaine and Heroin Substance Use Frequency: Chronic Longstanding Last Used Substance: Days (ago) Last Used Substance Other:: 05/08/2021 Currently Displaying Signs/Symptoms of Drug Intoxication Withdrawal: Yes Any prior treatment program specific to substance use: No Have you been hit, kicked, punched, or otherwise hurt by someone within the past year? If so, by whom?: No Do you feel safe in your current relationship?: No Is there a partner from a previous relationship who is making you feel unsafe now?: No Are you made to feel afraid or neglected: No Advance Directives: No Advance Directives Information Provided: No Advance Directives on File: No Advance Directives Date on File: 02/14/21 Healthcare Proxy: Yes Guardian: No Do you have thoughts of harming others: None Do you have a plan to hurt others: No Plan Recently lost weight without trying: Yes How much weight loss: 2-13 pounds Eating poorly because of decreased appetite: Yes Nutrition screen score: 4 Nutrition Risks: No Nutritional Risk Patient : No : No Poor oral hygiene: No service: No Current occupational status: employed Sexual orientation: Did not discuss
--- NOTE | 2021-05-10 15:12 | HO.PSYCHPN ---
Subjective Subjective Date of Service: 05/10/21 Reason For Visit: Depression, SI Subjective Notes: Conditional Voluntary Interim History: Pt reports feeling very anxious. Pt reports poor sleep. She reports recent relapsed and wants to get back on methadone. She denies SI/HI. She endorses feeling hopeless, helpless, anhedonia. She denies VH/AH. She reports seeing shadows in the past. 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 positive for sx of headache, feeling chills GI: positive for diarrhea, nausea Constitutional: Reports as per HPI Mental Status Exam Mental Status Exam Narrative: A&O. In hospital attire, disheveled, curled up in bed under covers. Poor eye contact, inattentive. No Tics or Tremors. No abnormal involuntary movements. Agitated, withdrawn, difficult to engage likely due to withdrawal. Non-pressured speech, spontaneous with regular rate and rhythm, normal volume and prosody. No prolonged speech latency or dysarthria. Mood is ?sour,? affect is irritable. Denies SI/SIB/HI upon inquiry. Denies A/VH or delusional thought content. Thoughts are goal oriented, linear. No known cognitive or memory impairment. Insight/ Judgment fair and adequate. Level of Consciousness: Awake and Appropriate Patient Behavior: Cooperative Diagnostics Vital Signs (24Hr): Vital Signs - 24 hr 05/09/21 19:16 05/09/21 21:20 05/10/21 00:36 Temperature Pulse Rate 70 92 Respiratory Rate 16 Blood Pressure 169/122 H 124/79 167/100 H Pulse Oximetry 05/10/21 06:00 05/10/21 09:17 05/10/21 12:22 Temperature 98.2 F Pulse Rate 68 68 68 Respiratory Rate 16 Blood Pressure 187/95 H 187/95 H 129/86 Pulse Oximetry 97 BMI result Body Mass Index 21.7 Labs Results: 05/09/21 09:27 05/09/21 09:38 Labs: Laboratory Results - last 48 hr 05/09/21 05/09/21 05/09/21 08:33 09:27 09:38 WBC 11.1 H RBC 4.42 Hgb 13.3 Hct 41.6 MCV 94.1 MCH 30.1 MCHC 32.0 RDW 14.7 Plt Count 287 MPV 13.0 H Immature Gran % (Auto) Cancelled Neut % (Auto) Cancelled Lymph % (Auto) Cancelled [place] % (Auto) Cancelled Eos % (Auto) Cancelled Baso % (Auto) Cancelled Lymph # (Auto) Cancelled [place] # (Auto) Cancelled Eos # (Auto) Cancelled Baso # (Auto) Cancelled Abs Immat Gran (auto) Cancelled Absolute Neuts (auto) Cancelled Absolute Nucleated RBC 0.000 Nucleated RBC % (auto) 0.0 Neutrophils % (Manual) 67 Band Neutrophils % 0 L Lymphocytes % (Manual) 25 Monocytes % (Manual) 5 Eosinophils % (Manual) 3 Abs Neuts (Manual) 7.4 Lymphocytes # (Manual) 2.8 Monocytes # (Manual) 0.6 Eosinophils # (Manual) 0.3 Platelet Estimate NORMAL Large Platelets PRESENT Plt Morphology Comment NOTED RBC Morphology NORMAL PT 11.2 INR 1.0 APTT 55.8 H Sodium Potassium Chloride Carbon Dioxide Anion Gap BUN Creatinine Estim Creat Clear Calc Estimated GFR Random Glucose Lactic Acid Calcium Magnesium Total Bilirubin Direct Bilirubin AST ALT Alkaline Phosphatase Troponin I High Sens C-Reactive Protein Total Protein Albumin Urine Color STRAW Urine Appearance CLEAR Urine pH 7.0 Ur Specific [place] 1.020 Urine Protein 2+ H Urine Glucose (UA) NEG Urine Ketones NEG Urine Blood TRACE Urine Nitrite NEG Ur Leukocyte Esterase NEG Urine RBC 0-2 Urine WBC 1-4 Ur Squamous Epith Cells 1+ Urine Bacteria TRACE COVID-19 ([facility]) COVID-19 Clin Com 05/09/21 05/09/21 05/09/21 09:38 09:38 09:38 WBC RBC Hgb Hct MCV MCH MCHC RDW Plt Count MPV Immature Gran % (Auto) Neut % (Auto) Lymph % (Auto) [place] % (Auto) Eos % (Auto) Baso % (Auto) Lymph # (Auto) [place] # (Auto) Eos # (Auto) Baso # (Auto) Abs Immat Gran (auto) Absolute Neuts (auto) Absolute Nucleated RBC Nucleated RBC % (auto) Neutrophils % (Manual) Band Neutrophils % Lymphocytes % (Manual) Monocytes % (Manual) Eosinophils % (Manual) Abs Neuts (Manual) Lymphocytes # (Manual) Monocytes # (Manual) Eosinophils # (Manual) Platelet Estimate Large Platelets Plt Morphology Comment RBC Morphology PT INR APTT Sodium 141 Potassium 3.9 Chloride 104 Carbon Dioxide 28 Anion Gap 13 BUN 22 H Creatinine 1.51 H Estim Creat Clear Calc 49.4 Estimated GFR 38 Random Glucose 95 Lactic Acid 1.6 Calcium 9.6 Magnesium 1.8 Total Bilirubin 0.2 Direct Bilirubin < 0.2 AST 20 ALT 13 Alkaline Phosphatase 84 D Troponin I High Sens 27.0 H C-Reactive Protein 0.23 Total Protein 7.0 Albumin 3.3 L Urine Color Urine Appearance Urine pH Ur Specific [place] Urine Protein Urine Glucose (UA) Urine Ketones Urine Blood Urine Nitrite Ur Leukocyte Esterase Urine RBC Urine WBC Ur Squamous Epith Cells Urine Bacteria COVID-19 ([facility]) COVID-19 Clin Com 05/09/21 05/09/21 10:02 12:30 WBC RBC Hgb Hct MCV MCH MCHC RDW Plt Count MPV Immature Gran % (Auto) Neut % (Auto) Lymph % (Auto) [place] % (Auto) Eos % (Auto) Baso % (Auto) Lymph # (Auto) [place] # (Auto) Eos # (Auto) Baso # (Auto) Abs Immat Gran (auto) Absolute Neuts (auto) Absolute Nucleated RBC Nucleated RBC % (auto) Neutrophils % (Manual) Band Neutrophils % Lymphocytes % (Manual) Monocytes % (Manual) Eosinophils % (Manual) Abs Neuts (Manual) Lymphocytes # (Manual) Monocytes # (Manual) Eosinophils # (Manual) Platelet Estimate Large Platelets Plt Morphology Comment RBC Morphology PT INR APTT Sodium Potassium Chloride Carbon Dioxide Anion Gap BUN Creatinine Estim Creat Clear Calc Estimated GFR Random Glucose Lactic Acid Calcium Magnesium Total Bilirubin Direct Bilirubin AST ALT Alkaline Phosphatase Troponin I High Sens 36.1 H C-Reactive Protein Total Protein Albumin Urine Color Urine Appearance Urine pH Ur Specific [place] Urine Protein Urine Glucose (UA) Urine Ketones Urine Blood Urine Nitrite Ur Leukocyte Esterase Urine RBC Urine WBC Ur Squamous Epith Cells Urine Bacteria COVID-19 (ADAM) Negative COVID-19 Clin Com See Note Imaging Radiology Impressions: ITS Impressions Chest CT 05/09/21 09:15 IMPRESSION: Improving appearance of the lungs compared to prior CT. The prior consolidation has resolved. The areas of cavitation are decreasing in size. Bandlike peripheral opacities are seen bilaterally which could represent atelectasis or scarring. Fleischner guidelines were followed. Venous Duplex 05/09/21 09:53 IMPRESSION: No DVT demonstrated in the bilateral lower extremities. Medications Medications Current Medications Acetaminophen (Acetaminophen 325 Mg Tablet) 650 mg PO Q6H PRN PRN Reason: Headache/Pain Mild Scale (1-3) Last Admin: 05/10/21 00:35 Dose: 650 mg Documented by: Al Hydroxide/Mg Hydroxide (Magnesium Hydrox/Alum Hydrox 30 Ml Oral.Susp) 30 ml PO Q6H PRN PRN Reason: Heartburn/Nausea Amlodipine Besylate (Amlodipine Besylate 10 Mg Tablet) 10 mg PO DAILY [facility]; Protocol Last Admin: 05/10/21 09:17 Dose: 10 mg Documented by: Aripiprazole (Aripiprazole 5 Mg Tablet) 5 mg PO DAILY [facility] Last Admin: 05/10/21 09:17 Dose: 5 mg Documented by: Cephalexin HCl (Cephalexin 500 Mg Capsule) 500 mg PO QID [facility] Last Admin: 05/10/21 12:22 Dose: 500 mg Documented by: Clonidine HCl (Clonidine Hcl 0.1 Mg Tablet) 0.1 mg PO TID PRN; Protocol PRN Reason: Anxiety Last Admin: 05/10/21 12:22 Dose: 0.1 mg Documented by: Gabapentin (Gabapentin 100 Mg Capsule) 200 mg PO TID [facility] Last Admin: 05/10/21 14:28 Dose: 200 mg Documented by: Hydroxyzine HCl (Hydroxyzine Hcl 25 Mg Tablet) 25 mg PO Q6H PRN PRN Reason: Anxiety Magnesium Hydroxide (Milk Of Magnesia 30 Ml Oral.Susp) 30 ml PO DAILY PRN PRN Reason: Constipation Methadone HCl (Methadone Hcl 20 Mg/2 Ml Oral.Conc) 50 mg PO ONCE ONE Stop: 05/11/21 08:01 Methadone HCl (Methadone Hcl 20 Mg/2 Ml Oral.Conc) 55 mg PO DAILY [facility] Nicotine (Nicotine 21 Mg Patch.Td24) 21 mg TRANSDERMA DAILY [facility] Last Admin: 05/10/21 12:21 Dose: 21 mg Documented by: Quetiapine Fumarate (Quetiapine Fumarate 300 Mg Tablet) 300 mg PO BEDTIME [facility] Last Admin: 05/09/21 21:03 Dose: 300 mg Documented by: Topiramate (Topiramate 100 Mg Tablet) 100 mg PO BID [facility] Last Admin: 05/10/21 09:17 Dose: 100 mg Documented by: Trazodone HCl (Trazodone Hcl 50 Mg Tablet) 50 mg PO BEDTIME PRN PRN Reason: Insomnia Allergies Allergies Allergy/AdvReac Type Severity Reaction Status Date / Time bee pollen [BEE STINGS] Allergy Severe Anaphylaxis Verified 02/27/21 06:54 codeine [CODEINE] Allergy Severe ANAPHYLAXIS Verified 02/27/21 06:54 Iodinated Contrast Media Allergy Severe DIFFICULTY Verified 02/27/21 06:54 [IV DYE, IODINE CONTAINING BREATHING CONTRAST ] nut - unspecified [nut] Allergy Intermediate Rash Verified 02/27/21 06:54 shellfish derived Allergy Intermediate Rash Verified 02/27/21 06:54 Sulfa (Sulfonamide Allergy Unknown ANAPHYLAXIS Verified 02/27/21 06:54 Antibiotics) [SULFA (SULFONAMIDE ANTIBIOTICS)] Assessment & Plan Assessment & Plan (1) Opioid use disorder, severe, dependence: Status: Acute Code(s): F11.20 - Opioid dependence, uncomplicated Assessment and Plan: Received methadone 40 mg today Plan for 50 mg of methadone tomorrow (Thursday) Plan for 55 mg of methadone Thursday and Thursday Will reassess on Thursday morning Attending provider aware of plan (2) Cocaine use disorder: Status: Acute Code(s): F14.10 - Cocaine abuse, uncomplicated (3) MDD (major depressive disorder), recurrent episode, moderate: Status: Acute Code(s): F33.1 - Major depressive disorder, recurrent, moderate (4) Seizures: Status: Acute Code(s): R56.9 - Unspecified convulsions (5) HERSON (generalized anxiety disorder): Status: Acute Code(s): F41.1 - Generalized anxiety disorder Assessment and Plan: MS. Carlson is a 40 y/o woman with hx of MDD, complex medical hx mostly untreated due to substance use. Admitted for SI with plan to OD on heroin. PLAN 1. Admit to M5, CV, 15 minutes checks 2. Restarted on methadone, addiction medicine following and titrating methadone 3. should be back on lovenox given hx of PE, 40mg SQ daily 4. ativan prn for anxiety . PT UNDERSTANDS WILL NOT BE DISCHARGED WITH RX given increase risks of misuse/abuse or accidental opioid fatal OD in combination with opioid as continues to work on recovery. I spent minutes with the patient and/or on the patient floor today, greater than?50% of which was spent counseling/coordinating care. Reason for contiued inpatient stay Substantial Risk for: harm to self
[2021-05-10 17:30] VITALS: BP 125/70; PULSE 53; TEMP 36.7
[2021-05-10] MEDS: Enoxaparin Sodium 40 MG/0.4 ML SYRINGE SUBCUT (17:33)
[2021-05-10] MEDS: LORazepam 1 MG TABLET PO (17:42)
[2021-05-10] MEDS: QUEtiapine Fumarate 300 MG TABLET PO (21:14)
--- NOTE | 2021-05-11 06:15 | P.PNPSI_ITS ---
Subjective Subjective Date of Service: 05/11/21 Reason For Visit: Depression, SI Interim History: Pt reports feeling very anxious. Pt reports poor sleep. She reports recent relapsed and wants to get back on methadone. She denies SI/HI. She endorses feeling hopeless, helpless, anhedonia. She denies VH/AH. She reports seeing shadows in the past. 05/11/21: Reports jt pains Lupus or WD . Now on Methadone. Will use Tylenol for pain. Pt has Methadone too. No SI. Review of Systems Review of Systems CVS: No c/o chest pain, palpitations, no SOB CASE PLANNER: No c/o dizziness. positive for sx of headache, feeling chills GI: positive for diarrhea, nausea Constitutional: Reports as per HPI Mental Status Exam Mental Status Exam Narrative: A&O. In hospital attire, disheveled, curled up in bed under covers. Poor eye contact, inattentive. No Tics or Tremors. No abnormal involuntary movements. Agitated, withdrawn, difficult to engage likely due to withdrawal. Non-pressured speech, spontaneous with regular rate and rhythm, normal volume and prosody. No prolonged speech latency or dysarthria. Mood is ?sour,? affect is irritable. Denies SI/SIB/HI upon inquiry. Denies A/VH or delusional thought content. Thoughts are goal oriented, linear. No known cognitive or memory impairment. Insight/ Judgment fair and adequate. Patient Appearance: Appropriate (Laying in bed, ill-appearing) Patient Orientation: Person, Place, Time and Situation Level of Consciousness: Awake and Appropriate Patient Behavior: Cooperative Mood Description: Flat Affect Description: Flat Patient Cognition Impaired: No Diagnostics Vital Signs (24Hr): Vital Signs - 24 hr 05/10/21 09:17 05/10/21 12:22 05/10/21 17:30 Temperature 98.1 F Pulse Rate 68 68 53 Blood Pressure 187/95 H 129/86 125/70 BMI result Body Mass Index 21.7 Labs Results: 05/11/21 07:46 05/11/21 07:45 Labs: Laboratory Results - last 48 hr 05/09/21 05/09/21 05/09/21 08:33 09:27 09:38 WBC 11.1 H RBC 4.42 Hgb 13.3 Hct 41.6 MCV 94.1 MCH 30.1 MCHC 32.0 RDW 14.7 Plt Count 287 MPV 13.0 H Immature Gran % (Auto) Cancelled Neut % (Auto) Cancelled Lymph % (Auto) Cancelled [place] % (Auto) Cancelled Eos % (Auto) Cancelled Baso % (Auto) Cancelled Lymph # (Auto) Cancelled [place] # (Auto) Cancelled Eos # (Auto) Cancelled Baso # (Auto) Cancelled Abs Immat Gran (auto) Cancelled Absolute Neuts (auto) Cancelled Absolute Nucleated RBC 0.000 Nucleated RBC % (auto) 0.0 Neutrophils % (Manual) 67 Band Neutrophils % 0 L Lymphocytes % (Manual) 25 Monocytes % (Manual) 5 Eosinophils % (Manual) 3 Abs Neuts (Manual) 7.4 Lymphocytes # (Manual) 2.8 Monocytes # (Manual) 0.6 Eosinophils # (Manual) 0.3 Platelet Estimate NORMAL Large Platelets PRESENT Plt Morphology Comment NOTED RBC Morphology NORMAL PT 11.2 INR 1.0 APTT 55.8 H Sodium Potassium Chloride Carbon Dioxide Anion Gap BUN Creatinine Estim Creat Clear Calc Estimated GFR Random Glucose Lactic Acid Calcium Magnesium Total Bilirubin Direct Bilirubin AST ALT Alkaline Phosphatase Troponin I High Sens C-Reactive Protein Total Protein Albumin Urine Color STRAW Urine Appearance CLEAR Urine pH 7.0 Ur Specific [place] 1.020 Urine Protein 2+ H Urine Glucose (UA) NEG Urine Ketones NEG Urine Blood TRACE Urine Nitrite NEG Ur Leukocyte Esterase NEG Urine RBC 0-2 Urine WBC 1-4 Ur Squamous Epith Cells 1+ Urine Bacteria TRACE COVID-19 ([facility]) COVID-19 Clin Com 05/09/21 05/09/21 05/09/21 09:38 09:38 09:38 WBC RBC Hgb Hct MCV MCH MCHC RDW Plt Count MPV Immature Gran % (Auto) Neut % (Auto) Lymph % (Auto) [place] % (Auto) Eos % (Auto) Baso % (Auto) Lymph # (Auto) [place] # (Auto) Eos # (Auto) Baso # (Auto) Abs Immat Gran (auto) Absolute Neuts (auto) Absolute Nucleated RBC Nucleated RBC % (auto) Neutrophils % (Manual) Band Neutrophils % Lymphocytes % (Manual) Monocytes % (Manual) Eosinophils % (Manual) Abs Neuts (Manual) Lymphocytes # (Manual) Monocytes # (Manual) Eosinophils # (Manual) Platelet Estimate Large Platelets Plt Morphology Comment RBC Morphology PT INR APTT Sodium 141 Potassium 3.9 Chloride 104 Carbon Dioxide 28 Anion Gap 13 BUN 22 H Creatinine 1.51 H Estim Creat Clear Calc 49.4 Estimated GFR 38 Random Glucose 95 Lactic Acid 1.6 Calcium 9.6 Magnesium 1.8 Total Bilirubin 0.2 Direct Bilirubin < 0.2 AST 20 ALT 13 Alkaline Phosphatase 84 D Troponin I High Sens 27.0 H C-Reactive Protein 0.23 Total Protein 7.0 Albumin 3.3 L Urine Color Urine Appearance Urine pH Ur Specific [place] Urine Protein Urine Glucose (UA) Urine Ketones Urine Blood Urine Nitrite Ur Leukocyte Esterase Urine RBC Urine WBC Ur Squamous Epith Cells Urine Bacteria COVID-19 ([facility]) COVID-19 Clin Com 05/09/21 05/09/21 10:02 12:30 WBC RBC Hgb Hct MCV MCH MCHC RDW Plt Count MPV Immature Gran % (Auto) Neut % (Auto) Lymph % (Auto) [place] % (Auto) Eos % (Auto) Baso % (Auto) Lymph # (Auto) [place] # (Auto) Eos # (Auto) Baso # (Auto) Abs Immat Gran (auto) Absolute Neuts (auto) Absolute Nucleated RBC Nucleated RBC % (auto) Neutrophils % (Manual) Band Neutrophils % Lymphocytes % (Manual) Monocytes % (Manual) Eosinophils % (Manual) Abs Neuts (Manual) Lymphocytes # (Manual) Monocytes # (Manual) Eosinophils # (Manual) Platelet Estimate Large Platelets Plt Morphology Comment RBC Morphology PT INR APTT Sodium Potassium Chloride Carbon Dioxide Anion Gap BUN Creatinine Estim Creat Clear Calc Estimated GFR Random Glucose Lactic Acid Calcium Magnesium Total Bilirubin Direct Bilirubin AST ALT Alkaline Phosphatase Troponin I High Sens 36.1 H C-Reactive Protein Total Protein Albumin Urine Color Urine Appearance Urine pH Ur Specific [place] Urine Protein Urine Glucose (UA) Urine Ketones Urine Blood Urine Nitrite Ur Leukocyte Esterase Urine RBC Urine WBC Ur Squamous Epith Cells Urine Bacteria COVID-19 ([facility]) Negative COVID-19 Clin Com See Note Imaging Radiology Impressions: ITS Impressions Chest CT 05/09/21 09:15 IMPRESSION: Improving appearance of the lungs compared to prior CT. The prior consolidation has resolved. The areas of cavitation are decreasing in size. Bandlike peripheral opacities are seen bilaterally which could represent atelectasis or scarring. Fleischner guidelines were followed. Venous Duplex 05/09/21 09:53 IMPRESSION: No DVT demonstrated in the bilateral lower extremities. Medications Medications Current Medications Acetaminophen (Acetaminophen 325 Mg Tablet) 650 mg PO Q6H PRN PRN Reason: Headache/Pain Mild Scale (1-3) Last Admin: 05/10/21 17:42 Dose: 650 mg Documented by: Al Hydroxide/Mg Hydroxide (Magnesium Hydrox/Alum Hydrox 30 Ml Oral.Susp) 30 ml PO Q6H PRN PRN Reason: Heartburn/Nausea Amlodipine Besylate (Amlodipine Besylate 10 Mg Tablet) 10 mg PO DAILY [facility]; Protocol Last Admin: 05/10/21 09:17 Dose: 10 mg Documented by: Aripiprazole (Aripiprazole 5 Mg Tablet) 5 mg PO DAILY [facility] Last Admin: 05/10/21 09:17 Dose: 5 mg Documented by: Cephalexin HCl (Cephalexin 500 Mg Capsule) 500 mg PO QID [facility] Last Admin: 05/10/21 21:13 Dose: 500 mg Documented by: Clonidine HCl (Clonidine Hcl 0.1 Mg Tablet) 0.1 mg PO TID PRN; Protocol PRN Reason: Anxiety Last Admin: 05/10/21 12:22 Dose: 0.1 mg Documented by: Enoxaparin Sodium (Enoxaparin Sodium 40 Mg/0.4 Ml Syringe) 40 mg SUBCUT Q24H [facility] Last Admin: 05/10/21 17:33 Dose: 40 mg Documented by: Gabapentin (Gabapentin 100 Mg Capsule) 200 mg PO TID [facility] Last Admin: 05/10/21 21:13 Dose: 200 mg Documented by: Hydroxyzine HCl (Hydroxyzine Hcl 50 Mg Tablet) 50 mg PO Q6H PRN PRN Reason: Anxiety Lorazepam (Lorazepam 1 Mg Tablet) 1 mg PO Q6H PRN PRN Reason: anxiety Last Admin: 05/10/21 17:42 Dose: 1 mg Documented by: Magnesium Hydroxide (Milk Of Magnesia 30 Ml Oral.Susp) 30 ml PO DAILY PRN PRN Reason: Constipation Methadone HCl (Methadone Hcl 20 Mg/2 Ml Oral.Conc) 50 mg PO ONCE ONE Stop: 05/11/21 08:01 Methadone HCl (Methadone Hcl 20 Mg/2 Ml Oral.Conc) 55 mg PO DAILY [facility] Nicotine (Nicotine 21 Mg Patch.Td24) 21 mg TRANSDERMA DAILY [facility] Last Admin: 05/10/21 12:21 Dose: 21 mg Documented by: Quetiapine Fumarate (Quetiapine Fumarate 300 Mg Tablet) 300 mg PO BEDTIME [facility] Last Admin: 05/10/21 21:14 Dose: 300 mg Documented by: Topiramate (Topiramate 100 Mg Tablet) 100 mg PO BID [facility] Last Admin: 05/10/21 21:14 Dose: 100 mg Documented by: Trazodone HCl (Trazodone Hcl 50 Mg Tablet) 50 mg PO BEDTIME PRN PRN Reason: Insomnia Allergies Allergies Allergy/AdvReac Type Severity Reaction Status Date / Time bee pollen [BEE STINGS] Allergy Severe Anaphylaxis Verified 02/27/21 06:54 codeine [CODEINE] Allergy Severe ANAPHYLAXIS Verified 02/27/21 06:54 Iodinated Contrast Media Allergy Severe DIFFICULTY Verified 02/27/21 06:54 [IV DYE, IODINE CONTAINING BREATHING CONTRAST ] nut - unspecified [nut] Allergy Intermediate Rash Verified 02/27/21 06:54 shellfish derived Allergy Intermediate Rash Verified 02/27/21 06:54 Sulfa (Sulfonamide Allergy Unknown ANAPHYLAXIS Verified 02/27/21 06:54 Antibiotics) [SULFA (SULFONAMIDE ANTIBIOTICS)] Assessment & Plan Assessment & Plan (1) Opioid use disorder, severe, dependence: Status: Acute Code(s): F11.20 - Opioid dependence, uncomplicated Assessment and Plan: * Received methadone 40 mg today * Plan for 50 mg of methadone tomorrow (Thursday) * Plan for 55 mg of methadone Thursday and Thursday * Will reassess on Thursday morning * Attending provider aware of plan (2) Cocaine use disorder: Status: Acute Code(s): F14.10 - Cocaine abuse, uncomplicated (3) MDD (major depressive disorder), recurrent episode, moderate: Status: Acute Code(s): F33.1 - Major depressive disorder, recurrent, moderate (4) Seizures: Status: Acute Code(s): R56.9 - Unspecified convulsions (5) HERSON (generalized anxiety disorder): Status: Acute Code(s): F41.1 - Generalized anxiety disorder Assessment and Plan: MS. Carlson is a 40 y/o woman with hx of MDD, complex medical hx mostly untreated due to substance use. Admitted for SI with plan to OD on heroin. PLAN 1. Admit to [facility], CV, 15 minutes checks 2. Restarted on methadone, addiction medicine following and titrating methadone 3. should be back on lovenox given hx of PE, 40mg SQ daily 4. ativan prn for anxiety . PT UNDERSTANDS WILL NOT BE DISCHARGED WITH RX given increase risks of misuse/abuse or accidental opioid fatal OD in combination with opioid as continues to work on recovery. I spent minutes with the patient and/or on the patient floor today, greater than?50% of which was spent counseling/coordinating care. Reason for contiued inpatient stay Substantial Risk for: rapid decompensation and med/psych decompensation
[2021-05-11 08:05] LABS: Hemoglobin 12.6 g/dl (12.0-16.0); Red Cell Distribution Width 14.8 % (11.0-16.0); SCAN SMEAR FLAG 1
[2021-05-11 08:07] LABS: Basophils Percent Auto 0.5 % (0-2); Eosinophils Absolute Auto 0.8 X10*3/uL (0.0-0.4); Eosinophils Percent Auto 9.9 % (0-4); Hematocrit 39.6 % (37.0-47.0); Imm Gran Abs Auto 0.03 X10*3/uL (0.00-0.03); Imm Gran Pct Auto 0.4 % (0.0-0.4); Lymphocytes Percent Auto 35.4 % (20-40); MANUAL DIFF FLAG SCAN; Mean Corpuscular HGB Conc 31.8 g/dl (31.0-35.0); Mean Corpuscular Hemoglobin 30.2 pg (27.0-33.0); Mean Platelet Volume 13.1 fL (9.4-12.3); Monocytes Absolute Auto 0.9 X10*3/uL (0.1-1.2); Monocytes Percent Auto 11.1 % (2-11); Neutrophils Absolute Auto 3.6 x10*3/uL (2.0-8.3); Neutrophils Percent Auto 42.7 % (45-73); Platelet Count 266 X10*3/uL (160-400); Red Blood Count 4.17 X10*6/uL (4.20-5.50); White Blood Count 8.4 X10*3/uL (4.8-10.8)
[2021-05-11 08:09] LABS: Prothrombin Time 11.4 SEC (9.9-13.0)
[2021-05-11 08:11] LABS: Partial Thromboplastin Time 56.9 SEC (24.1-38.0)
[2021-05-11 08:17] LABS: Estimated Average Glucose 105 mg/dL; Hemoglobin A1c % 5.3 %
[2021-05-11 08:36] LABS: Alanine Aminotransferase 11 U/L (0-31); Alkaline Phosphatase 85 U/L (39-117); Anion Gap 12 (12-20); Aspartate Amino Transferase 13 U/L (5-31); Bilirubin Total 0.2 mg/dL (0.0-1.0); Blood Urea Nitrogen 22 mg/dL (9-16); Calcium 9.5 mg/dL (8.4-10.2); Carbon Dioxide 23 mmol/L (22-29); Chloride 106 mmol/L (96-108); Cholesterol 227 mg/dL; Creatinine Clr Calc Pharmacy 43.4; Estimated Glomerular Filt Rate 33; Glucose Random 95 mg/dL (60-115); HDL Cholesterol 33 mg/dL; Potassium 4.3 mmol/L (3.3-5.1); Sodium 137 mmol/L (135-145); Total Protein 6.4 g/dL (6.5-8.0); Triglycerides 582 mg/dL
[2021-05-11 08:48] LABS: PLT ABN DIST 1
[2021-05-11 08:54] LABS: SLIDE REVIEW VERIFIED
[2021-05-11] MEDS: methADONE HCl 20 MG/2 ML ORAL.CONC 50 MG PO (09:08)
[2021-05-11] MEDS: Nicotine 21 MG PATCH.TD24 TRANSDERMA (09:08)
[2021-05-11 09:09] VITALS: BP 124/75; PULSE 60
[2021-05-11] MEDS: cephALEXin 500 MG CAPSULE PO ×4 (09:09→21:38)
[2021-05-11] MEDS: Topiramate 100 MG TABLET PO ×2 (09:09→21:39)
[2021-05-11] MEDS: ARIPiprazole 5 MG TABLET PO (09:09)
[2021-05-11] MEDS: amLODIPine Besylate 10 MG TABLET PO (09:09)
[2021-05-11] MEDS: Gabapentin 100 MG CAPSULE 200 MG PO ×3 (09:09→21:39)
[2021-05-11] MEDS: LORazepam 1 MG TABLET PO ×2 (09:21→17:07)
[2021-05-11] MEDS: Acetaminophen 325 MG TABLET 650 MG PO ×2 (13:00→18:55)
[2021-05-11] MEDS: hydrOXYzine HCL 50 MG TABLET PO (13:14)
--- NOTE | 2021-05-11 14:18 | MHC.RECOVSUP ---
Recovery Support note: Patient is a 40 year old [place]isian speaking female who presented to [facility] due to AH and being off medications for 6 weeks. Patient is known to this data analyst report writer from previous consultations. This data analyst report writer met with patient to discuss methadone dosing and withdrawal symptoms. Patient was laying in bed in 516-2. Patient reports she is not doing well and that she has numerous withdrawal symptoms. Patient reports she has been in bed since she got to M5 and that she has diarrhea, stomach pain, sweats, chills and sneezing fits. Patient is requesting a higher methadone dose, stating she was using a large amount of heroin and cocaine prior to admission. Reassured patient that her dose will increase for tomorrow. Discussed case with Cecy Espino NP.
[2021-05-11 16:48] VITALS: BP 109/57; PULSE 55; RESP 16; TEMP 36.7; O2SAT 96
[2021-05-11] MEDS: Enoxaparin Sodium 40 MG/0.4 ML SYRINGE SUBCUT (18:54)
[2021-05-11] MEDS: QUEtiapine Fumarate 300 MG TABLET PO (21:39)
[2021-05-12 06:00] VITALS: BP 117/67; PULSE 53; RESP 20; TEMP 36.4; O2SAT 98
[2021-05-12] MEDS: Acetaminophen 325 MG TABLET 650 MG PO ×3 (06:49→19:12)
[2021-05-12] MEDS: cephALEXin 500 MG CAPSULE PO ×4 (09:15→19:12)
[2021-05-12 09:16] VITALS: BP 124/68; PULSE 70
[2021-05-12] MEDS: Topiramate 100 MG TABLET PO ×2 (09:16→19:13)
[2021-05-12] MEDS: ARIPiprazole 5 MG TABLET PO (09:16)
[2021-05-12] MEDS: amLODIPine Besylate 10 MG TABLET PO (09:16)
[2021-05-12] MEDS: Gabapentin 100 MG CAPSULE 200 MG PO ×2 (09:17→19:13)
[2021-05-12] MEDS: methADONE HCl 20 MG/2 ML ORAL.CONC 55 MG PO (09:19)
[2021-05-12] MEDS: Nicotine 21 MG PATCH.TD24 TRANSDERMA (09:22)
[2021-05-12] MEDS: LORazepam 1 MG TABLET PO (11:27)
--- NOTE | 2021-05-12 12:21 | HO.ADDICTPRO ---
Subjective Subjective Date of Service: 05/12/21 Reason For Visit: Depression, SI Interim History: Patient seen in follow up. Methadone titration continuing--up to 55mg today. Reports improvement in withdrawal symptoms--appetite improving, able to get out of bed, nausea subsided, loose stools improved. Still some body aches Review of Systems Constitutional: Reports as per HPI Mental Status Exam Mental Status Exam Patient Appearance: Disheveled Patient Orientation: Person, Place, Time and Situation Level of Consciousness: Awake, Appropriate and Alert Patient Behavior: Appropriate Mood Description: Constricted and Depressed Affect Description: Blunted Patient Cognition Impaired: No Thought Process: Intact and Goal Oriented Thought Content: positive for Goal Oriented Judgement: Fair Diagnostics Vital Signs (24Hr): Vital Signs - 24 hr 05/11/21 16:48 05/12/21 06:00 05/12/21 09:16 Temperature 98.1 F 97.6 F Pulse Rate 55 53 70 Respiratory Rate 16 20 Blood Pressure 109/57 L 117/67 124/68 Pulse Oximetry 96 98 BMI result Body Mass Index 21.7 Labs Results: 05/11/21 07:46 05/11/21 07:45 Labs: Laboratory Results - last 48 hr 05/11/21 05/11/21 05/11/21 07:45 07:45 07:45 WBC RBC Hgb Hct MCV MCH MCHC RDW Plt Count MPV Immature Gran % (Auto) Neut % (Auto) Lymph % (Auto) [place] % (Auto) Eos % (Auto) Baso % (Auto) Lymph # (Auto) [place] # (Auto) Eos # (Auto) Baso # (Auto) Abs Immat Gran (auto) Absolute Neuts (auto) Absolute Nucleated RBC Nucleated RBC % (auto) Smear Tech's Comments PT 11.4 INR 1.0 APTT 56.9 H Sodium 137 Potassium 4.3 Chloride 106 Carbon Dioxide 23 Anion Gap 12 BUN 22 H Creatinine 1.72 H Estim Creat Clear Calc 43.4 Estimated GFR 33 Random Glucose 95 Estimat Average Glucose 105 Hemoglobin A1c % 5.3 Calcium 9.5 Total Bilirubin 0.2 AST 13 ALT 11 Alkaline Phosphatase 85 Total Protein 6.4 L Albumin 3.0 L Triglycerides 582 Cholesterol 227 LDL Cholesterol, Calc TNP HDL Cholesterol 33 05/11/21 07:46 WBC 8.4 RBC 4.17 L Hgb 12.6 Hct 39.6 MCV 95.0 MCH 30.2 MCHC 31.8 RDW 14.8 Plt Count 266 MPV 13.1 H Immature Gran % (Auto) 0.4 Neut % (Auto) 42.7 L Lymph % (Auto) 35.4 [place] % (Auto) 11.1 H Eos % (Auto) 9.9 H Baso % (Auto) 0.5 Lymph # (Auto) 3.0 [place] # (Auto) 0.9 Eos # (Auto) 0.8 H Baso # (Auto) 0.0 Abs Immat Gran (auto) 0.03 Absolute Neuts (auto) 3.6 Absolute Nucleated RBC 0.000 Nucleated RBC % (auto) 0.0 Smear Tech's Comments VERIFIED PT INR APTT Sodium Potassium Chloride Carbon Dioxide Anion Gap BUN Creatinine Estim Creat Clear Calc Estimated GFR Random Glucose Estimat Average Glucose Hemoglobin A1c % Calcium Total Bilirubin AST ALT Alkaline Phosphatase Total Protein Albumin Triglycerides Cholesterol LDL Cholesterol, Calc HDL Cholesterol Imaging Radiology Impressions: ITS Impressions Chest CT 05/09/21 09:15 IMPRESSION: Improving appearance of the lungs compared to prior CT. The prior consolidation has resolved. The areas of cavitation are decreasing in size. Bandlike peripheral opacities are seen bilaterally which could represent atelectasis or scarring. Fleischner guidelines were followed. Venous Duplex 05/09/21 09:53 IMPRESSION: No DVT demonstrated in the bilateral lower extremities. Chest X-Ray 05/11/21 18:42 IMPRESSION: Bilateral opacities decreased compared to prior likely sequela of previously noted inflammatory infectious process. Medications Medications Current Medications Acetaminophen (Acetaminophen 325 Mg Tablet) 650 mg PO Q6H [facility] Last Admin: 05/12/21 11:26 Dose: 650 mg Documented by: Al Hydroxide/Mg Hydroxide (Magnesium Hydrox/Alum Hydrox 30 Ml Oral.Susp) 30 ml PO Q6H PRN PRN Reason: Heartburn/Nausea Amlodipine Besylate (Amlodipine Besylate 10 Mg Tablet) 10 mg PO DAILY [facility]; Protocol Last Admin: 05/12/21 09:16 Dose: 10 mg Documented by: Aripiprazole (Aripiprazole 5 Mg Tablet) 5 mg PO DAILY [facility] Last Admin: 05/12/21 09:16 Dose: 5 mg Documented by: Cephalexin HCl (Cephalexin 500 Mg Capsule) 500 mg PO QID [facility] Last Admin: 05/12/21 09:15 Dose: 500 mg Documented by: Clonidine HCl (Clonidine Hcl 0.1 Mg Tablet) 0.1 mg PO TID PRN; Protocol PRN Reason: Anxiety Last Admin: 05/10/21 12:22 Dose: 0.1 mg Documented by: Enoxaparin Sodium (Enoxaparin Sodium 40 Mg/0.4 Ml Syringe) 40 mg SUBCUT Q24H [facility] Last Admin: 05/11/21 18:54 Dose: 40 mg Documented by: Gabapentin (Gabapentin 100 Mg Capsule) 200 mg PO TID [facility] Last Admin: 05/12/21 09:17 Dose: 200 mg Documented by: Hydroxyzine HCl (Hydroxyzine Hcl 50 Mg Tablet) 50 mg PO Q6H PRN PRN Reason: Anxiety Last Admin: 05/11/21 13:14 Dose: 50 mg Documented by: Lorazepam (Lorazepam 1 Mg Tablet) 1 mg PO Q6H PRN PRN Reason: anxiety Last Admin: 05/12/21 11:27 Dose: 1 mg Documented by: Magnesium Hydroxide (Milk Of Magnesia 30 Ml Oral.Susp) 30 ml PO DAILY PRN PRN Reason: Constipation Methadone HCl (Methadone Hcl 20 Mg/2 Ml Oral.Conc) 60 mg PO DAILY [facility] Nicotine (Nicotine 21 Mg Patch.Td24) 21 mg TRANSDERMA DAILY [facility] Last Admin: 05/12/21 09:22 Dose: 21 mg Documented by: Quetiapine Fumarate (Quetiapine Fumarate 300 Mg Tablet) 300 mg PO BEDTIME [facility] Last Admin: 05/11/21 21:39 Dose: 300 mg Documented by: Topiramate (Topiramate 100 Mg Tablet) 100 mg PO BID [facility] Last Admin: 05/12/21 09:16 Dose: 100 mg Documented by: Trazodone HCl (Trazodone Hcl 50 Mg Tablet) 50 mg PO BEDTIME PRN PRN Reason: Insomnia Allergies Allergies Allergy/AdvReac Type Severity Reaction Status Date / Time bee pollen [BEE STINGS] Allergy Severe Anaphylaxis Verified 02/27/21 06:54 codeine [CODEINE] Allergy Severe ANAPHYLAXIS Verified 02/27/21 06:54 Iodinated Contrast Media Allergy Severe DIFFICULTY Verified 02/27/21 06:54 [IV DYE, IODINE CONTAINING BREATHING CONTRAST ] nut - unspecified [nut] Allergy Intermediate Rash Verified 02/27/21 06:54 shellfish derived Allergy Intermediate Rash Verified 02/27/21 06:54 Sulfa (Sulfonamide Allergy Unknown ANAPHYLAXIS Verified 02/27/21 06:54 Antibiotics) [SULFA (SULFONAMIDE ANTIBIOTICS)] Assessment & Plan Assessment & Plan (1) Opioid use disorder, severe, dependence: Status: Acute Code(s): F11.20 - Opioid dependence, uncomplicated Assessment and Plan: Increase methadone to 60mg tomorrow encouraged to get out of bed and shower follow up tomorrow Plan disussed with RN and covering provider I spent ____20__ minutes with the patient and/or on the patient floor today, greater than?50% of which was spent counseling/coordinating care.
--- NOTE | 2021-05-12 15:18 | HO.PSYCHPN ---
Subjective Subjective Date of Service: 05/12/21 Reason For Visit: Depression, SI Subjective Notes: Conditional Voluntary Interim History: Feeling better today. Increase in Methadone helping with WD and pain Sx. Mood better too. Reviewed Ms Ch note Diagnostics Vital Signs (24Hr): Vital Signs - 24 hr 05/11/21 16:48 05/12/21 06:00 05/12/21 09:16 Temperature 98.1 F 97.6 F Pulse Rate 55 53 70 Respiratory Rate 16 20 Blood Pressure 109/57 L 117/67 124/68 Pulse Oximetry 96 98 BMI result Body Mass Index 21.7 Labs Results: 05/11/21 07:46 05/11/21 07:45 Labs: Laboratory Results - last 48 hr 05/11/21 05/11/21 05/11/21 07:45 07:45 07:45 WBC RBC Hgb Hct MCV MCH MCHC RDW Plt Count MPV Immature Gran % (Auto) Neut % (Auto) Lymph % (Auto) [place] % (Auto) Eos % (Auto) Baso % (Auto) Lymph # (Auto) [place] # (Auto) Eos # (Auto) Baso # (Auto) Abs Immat Gran (auto) Absolute Neuts (auto) Absolute Nucleated RBC Nucleated RBC % (auto) Smear Tech's Comments PT 11.4 INR 1.0 APTT 56.9 H Sodium 137 Potassium 4.3 Chloride 106 Carbon Dioxide 23 Anion Gap 12 BUN 22 H Creatinine 1.72 H Estim Creat Clear Calc 43.4 Estimated GFR 33 Random Glucose 95 Estimat Average Glucose 105 Hemoglobin A1c % 5.3 Calcium 9.5 Total Bilirubin 0.2 AST 13 ALT 11 Alkaline Phosphatase 85 Total Protein 6.4 L Albumin 3.0 L Triglycerides 582 Cholesterol 227 LDL Cholesterol, Calc TNP HDL Cholesterol 33 05/11/21 07:46 WBC 8.4 RBC 4.17 L Hgb 12.6 Hct 39.6 MCV 95.0 MCH 30.2 MCHC 31.8 RDW 14.8 Plt Count 266 MPV 13.1 H Immature Gran % (Auto) 0.4 Neut % (Auto) 42.7 L Lymph % (Auto) 35.4 [place] % (Auto) 11.1 H Eos % (Auto) 9.9 H Baso % (Auto) 0.5 Lymph # (Auto) 3.0 [place] # (Auto) 0.9 Eos # (Auto) 0.8 H Baso # (Auto) 0.0 Abs Immat Gran (auto) 0.03 Absolute Neuts (auto) 3.6 Absolute Nucleated RBC 0.000 Nucleated RBC % (auto) 0.0 Smear Tech's Comments VERIFIED PT INR APTT Sodium Potassium Chloride Carbon Dioxide Anion Gap BUN Creatinine Estim Creat Clear Calc Estimated GFR Random Glucose Estimat Average Glucose Hemoglobin A1c % Calcium Total Bilirubin AST ALT Alkaline Phosphatase Total Protein Albumin Triglycerides Cholesterol LDL Cholesterol, Calc HDL Cholesterol Imaging Radiology Impressions: ITS Impressions Chest CT 05/09/21 09:15 IMPRESSION: Improving appearance of the lungs compared to prior CT. The prior consolidation has resolved. The areas of cavitation are decreasing in size. Bandlike peripheral opacities are seen bilaterally which could represent atelectasis or scarring. Fleischner guidelines were followed. Venous Duplex 05/09/21 09:53 IMPRESSION: No DVT demonstrated in the bilateral lower extremities. Chest X-Ray 05/11/21 18:42 IMPRESSION: Bilateral opacities decreased compared to prior likely sequela of previously noted inflammatory infectious process. Medications Medications Current Medications Acetaminophen (Acetaminophen 325 Mg Tablet) 650 mg PO Q6H [facility] Last Admin: 05/12/21 11:26 Dose: 650 mg Documented by: Al Hydroxide/Mg Hydroxide (Magnesium Hydrox/Alum Hydrox 30 Ml Oral.Susp) 30 ml PO Q6H PRN PRN Reason: Heartburn/Nausea Amlodipine Besylate (Amlodipine Besylate 10 Mg Tablet) 10 mg PO DAILY [facility]; Protocol Last Admin: 05/12/21 09:16 Dose: 10 mg Documented by: Aripiprazole (Aripiprazole 5 Mg Tablet) 5 mg PO DAILY [facility] Last Admin: 05/12/21 09:16 Dose: 5 mg Documented by: Cephalexin HCl (Cephalexin 500 Mg Capsule) 500 mg PO QID [facility] Last Admin: 05/12/21 14:28 Dose: 500 mg Documented by: Clonidine HCl (Clonidine Hcl 0.1 Mg Tablet) 0.1 mg PO TID PRN; Protocol PRN Reason: Anxiety Last Admin: 05/10/21 12:22 Dose: 0.1 mg Documented by: Enoxaparin Sodium (Enoxaparin Sodium 40 Mg/0.4 Ml Syringe) 40 mg SUBCUT Q24H [facility] Last Admin: 05/11/21 18:54 Dose: 40 mg Documented by: Gabapentin (Gabapentin 100 Mg Capsule) 200 mg PO TID [facility] Last Admin: 05/12/21 14:28 Dose: Not Given Documented by: Hydroxyzine HCl (Hydroxyzine Hcl 50 Mg Tablet) 50 mg PO Q6H PRN PRN Reason: Anxiety Last Admin: 05/11/21 13:14 Dose: 50 mg Documented by: Lorazepam (Lorazepam 1 Mg Tablet) 1 mg PO Q6H PRN PRN Reason: anxiety Last Admin: 05/12/21 11:27 Dose: 1 mg Documented by: Magnesium Hydroxide (Milk Of Magnesia 30 Ml Oral.Susp) 30 ml PO DAILY PRN PRN Reason: Constipation Methadone HCl (Methadone Hcl 20 Mg/2 Ml Oral.Conc) 60 mg PO DAILY [facility] Nicotine (Nicotine 21 Mg Patch.Td24) 21 mg TRANSDERMA DAILY [facility] Last Admin: 05/12/21 09:22 Dose: 21 mg Documented by: Quetiapine Fumarate (Quetiapine Fumarate 300 Mg Tablet) 300 mg PO BEDTIME [facility] Last Admin: 05/11/21 21:39 Dose: 300 mg Documented by: Topiramate (Topiramate 100 Mg Tablet) 100 mg PO BID [facility] Last Admin: 05/12/21 09:16 Dose: 100 mg Documented by: Trazodone HCl (Trazodone Hcl 50 Mg Tablet) 50 mg PO BEDTIME PRN PRN Reason: Insomnia Allergies Allergies Allergy/AdvReac Type Severity Reaction Status Date / Time bee pollen [BEE STINGS] Allergy Severe Anaphylaxis Verified 02/27/21 06:54 codeine [CODEINE] Allergy Severe ANAPHYLAXIS Verified 02/27/21 06:54 Iodinated Contrast Media Allergy Severe DIFFICULTY Verified 02/27/21 06:54 [IV DYE, IODINE CONTAINING BREATHING CONTRAST ] nut - unspecified [nut] Allergy Intermediate Rash Verified 02/27/21 06:54 shellfish derived Allergy Intermediate Rash Verified 02/27/21 06:54 Sulfa (Sulfonamide Allergy Unknown ANAPHYLAXIS Verified 02/27/21 06:54 Antibiotics) [SULFA (SULFONAMIDE ANTIBIOTICS)] Assessment & Plan Assessment & Plan (1) Opioid use disorder, severe, dependence: Status: Acute Code(s): F11.20 - Opioid dependence, uncomplicated Assessment and Plan: Increase methadone to 60mg tomorrow encouraged to get out of bed and shower follow up tomorrow Plan disussed with RN and covering provider Assessment and Plan: Ct Rx plan. Methadone at 55 mg I spent minutes with the patient and/or on the patient floor today, greater than?50% of which was spent counseling/coordinating care. Reason for contiued inpatient stay Substantial Risk for: med/psych decompensation
[2021-05-12 16:15] VITALS: BP 110/59; PULSE 66
[2021-05-12] MEDS: cloNIDine HCL 0.1 MG TABLET PO (16:15)
[2021-05-12] MEDS: Enoxaparin Sodium 40 MG/0.4 ML SYRINGE SUBCUT (17:15)
[2021-05-12 17:54] VITALS: BP 110/59; PULSE 66; RESP 18; TEMP 37; O2SAT 98
[2021-05-12 18:00] VITALS: PULSE 66
[2021-05-12] MEDS: QUEtiapine Fumarate 300 MG TABLET PO (19:14)
[2021-05-13] MEDS: Acetaminophen 325 MG TABLET 650 MG PO ×3 (01:39→19:42)
[2021-05-13 08:00] VITALS: PULSE 68
[2021-05-13 08:35] LABS: Folate 4.1 ng/mL (> or = 4.0); Vitamin B12 194 pg/mL (200-900)
[2021-05-13] MEDS: Topiramate 100 MG TABLET PO ×2 (08:40→19:47)
[2021-05-13] MEDS: methADONE HCl 20 MG/2 ML ORAL.CONC 60 MG PO (08:41)
[2021-05-13] MEDS: ARIPiprazole 5 MG TABLET PO (08:41)
[2021-05-13] MEDS: cephALEXin 500 MG CAPSULE PO ×4 (08:41→19:46)
[2021-05-13] MEDS: Gabapentin 100 MG CAPSULE 200 MG PO ×3 (08:41→19:47)
[2021-05-13 08:58] VITALS: BP 124/71; PULSE 68
[2021-05-13] MEDS: Nicotine 21 MG PATCH.TD24 TRANSDERMA (08:58)
[2021-05-13] MEDS: amLODIPine Besylate 10 MG TABLET PO (08:58)
[2021-05-13] MEDS: LORazepam 1 MG TABLET PO ×2 (10:30→17:05)
--- NOTE | 2021-05-13 13:51 | P.PNPSI_ITS ---
Subjective Subjective Date of Service: 05/13/21 Reason For Visit: Depression, SI Subjective Notes: Conditional Voluntary Healthcare Proxy: No Guardianship: No Medical Problems Affecting Mental Status: No Interim History: Pt feeling ready for discharge. Reports feeling much improved with medication adjustments. Asks to continue Ativan for anxiety prn upon discharge. Discussed risks with methadone and other non-benzodiazpine options. Medication Compliance: Yes Side effects from medications: No Attending Groups: Intermittent Review of Systems Acute medical concerns: No Medical Review of Systems: unchanged Review of Systems Psychiatric: Reports anxiety Mental Status Exam Mental Status Exam Patient Appearance: Disheveled Patient Orientation: Person, Place, Time and Situation Level of Consciousness: Awake, Appropriate and Alert Patient Behavior: Appropriate Mood Description: Constricted and Depressed Affect Description: Blunted Patient Cognition Impaired: No Thought Process: Intact and Goal Oriented Thought Content: positive for Goal Oriented Judgement: Fair Diagnostics Vital Signs (24Hr): Vital Signs - 24 hr 05/12/21 16:15 05/12/21 17:54 05/13/21 08:58 Temperature 98.6 F Pulse Rate 66 66 68 Respiratory Rate 18 Blood Pressure 110/59 L 110/59 L 124/71 Pulse Oximetry 98 BMI result Body Mass Index 21.7 Labs Results: 05/11/21 07:46 05/11/21 07:45 Labs: Laboratory Results - last 48 hr 05/11/21 07:45 Vitamin B12 194 L Folate 4.1 Imaging Radiology Impressions: [facility] Impressions Chest CT 05/09/21 09:15 IMPRESSION: Improving appearance of the lungs compared to prior CT. The prior consolidation has resolved. The areas of cavitation are decreasing in size. Bandlike peripheral opacities are seen bilaterally which could represent atelectasis or scarring. Fleischner guidelines were followed. Venous Duplex 05/09/21 09:53 IMPRESSION: No DVT demonstrated in the bilateral lower extremities. Chest X-Ray 05/11/21 18:42 IMPRESSION: Bilateral opacities decreased compared to prior likely sequela of previously noted inflammatory infectious process. Medications Medications Current Medications Acetaminophen (Acetaminophen 325 Mg Tablet) 650 mg PO Q6H [facility] Last Admin: 05/13/21 12:12 Dose: 650 mg Documented by: Al Hydroxide/Mg Hydroxide (Magnesium Hydrox/Alum Hydrox 30 Ml Oral.Susp) 30 ml PO Q6H PRN PRN Reason: Heartburn/Nausea Amlodipine Besylate (Amlodipine Besylate 10 Mg Tablet) 10 mg PO DAILY [facility]; Protocol Last Admin: 05/13/21 08:58 Dose: 10 mg Documented by: Aripiprazole (Aripiprazole 5 Mg Tablet) 5 mg PO DAILY [facility] Last Admin: 05/13/21 08:41 Dose: 5 mg Documented by: Cephalexin HCl (Cephalexin 500 Mg Capsule) 500 mg PO QID [facility] Last Admin: 05/13/21 12:12 Dose: 500 mg Documented by: Clonidine HCl (Clonidine Hcl 0.1 Mg Tablet) 0.1 mg PO TID PRN; Protocol PRN Reason: Anxiety Last Admin: 05/12/21 16:15 Dose: 0.1 mg Documented by: Cyanocobalamin (Cyanocobalamin (Vitamin B-12) 100 Mcg Tablet) 100 mcg PO DAILY [facility] Enoxaparin Sodium (Enoxaparin Sodium 40 Mg/0.4 Ml Syringe) 40 mg SUBCUT Q24H [facility] Last Admin: 05/12/21 17:15 Dose: 40 mg Documented by: Gabapentin (Gabapentin 100 Mg Capsule) 200 mg PO TID [facility] Last Admin: 05/13/21 08:41 Dose: 200 mg Documented by: Hydroxyzine HCl (Hydroxyzine Hcl 50 Mg Tablet) 50 mg PO Q6H PRN PRN Reason: Anxiety Last Admin: 05/11/21 13:14 Dose: 50 mg Documented by: Lorazepam (Lorazepam 1 Mg Tablet) 1 mg PO Q6H PRN PRN Reason: anxiety Last Admin: 05/13/21 10:30 Dose: 1 mg Documented by: Magnesium Hydroxide (Milk Of Magnesia 30 Ml Oral.Susp) 30 ml PO DAILY PRN PRN Reason: Constipation Methadone HCl (Methadone Hcl 20 Mg/2 Ml Oral.Conc) 60 mg PO DAILY [facility] Last Admin: 05/13/21 08:41 Dose: 60 mg Documented by: Nicotine (Nicotine 21 Mg Patch.Td24) 21 mg TRANSDERMA DAILY [facility] Last Admin: 05/13/21 08:58 Dose: 21 mg Documented by: Quetiapine Fumarate (Quetiapine Fumarate 300 Mg Tablet) 300 mg PO BEDTIME [facility] Last Admin: 05/12/21 19:14 Dose: 300 mg Documented by: Topiramate (Topiramate 100 Mg Tablet) 100 mg PO BID [facility] Last Admin: 05/13/21 08:40 Dose: 100 mg Documented by: Trazodone HCl (Trazodone Hcl 50 Mg Tablet) 50 mg PO BEDTIME PRN PRN Reason: Insomnia Allergies Allergies Allergy/AdvReac Type Severity Reaction Status Date / Time bee pollen [BEE STINGS] Allergy Severe Anaphylaxis Verified 02/27/21 06:54 codeine [CODEINE] Allergy Severe ANAPHYLAXIS Verified 02/27/21 06:54 Iodinated Contrast Media Allergy Severe DIFFICULTY Verified 02/27/21 06:54 [IV DYE, IODINE CONTAINING BREATHING CONTRAST ] nut - unspecified [nut] Allergy Intermediate Rash Verified 02/27/21 06:54 shellfish derived Allergy Intermediate Rash Verified 02/27/21 06:54 Sulfa (Sulfonamide Allergy Unknown ANAPHYLAXIS Verified 02/27/21 06:54 Antibiotics) [SULFA (SULFONAMIDE ANTIBIOTICS)] Assessment & Plan Assessment & Plan (1) Opioid use disorder, severe, dependence: Status: Acute Code(s): F11.20 - Opioid dependence, uncomplicated Assessment and Plan: * Increase methadone to 60mg tomorrow * encouraged to get out of bed and shower * follow up tomorrow * Plan disussed with RN and covering provider Assessment and Plan: 05/13/21: Continue current plan. Tentative discharge 05/15/21. I spent 25 minutes with the patient and/or on the patient floor today, greater than?50% of which was spent counseling/coordinating care. Patient educated on: substance abuse and therapeutic strategies Informed Consent: understands Reason for contiued inpatient stay Substantial Risk for: rapid decompensation
[2021-05-13] MEDS: Fluconazole 150 MG TABLET PO (14:08)
[2021-05-13] MEDS: Enoxaparin Sodium 40 MG/0.4 ML SYRINGE SUBCUT (17:10)
[2021-05-13 19:10] VITALS: BP 105/85; PULSE 63; TEMP 36.7
[2021-05-13] MEDS: QUEtiapine Fumarate 300 MG TABLET PO (19:48)
[2021-05-13 23:59] VITALS: BP 120/67; PULSE 90
[2021-05-13] MEDS: cloNIDine HCL 0.1 MG TABLET PO (23:59)
[2021-05-14] VITALS (7 sets, daily range): BP systolic 102–123; BP diastolic 55–76; PULSE 56–68; RESP 16–18; TEMP 36.7–36.9; O2SAT 97–98
[2021-05-14] MEDS: Nicotine 21 MG PATCH.TD24 TRANSDERMA (09:28)
[2021-05-14] MEDS: Cyanocobalamin (Vitamin B-12) 100 MCG TABLET PO (09:29)
[2021-05-14] MEDS: methADONE HCl 20 MG/2 ML ORAL.CONC 60 MG PO (09:29)
[2021-05-14] MEDS: Topiramate 100 MG TABLET PO ×2 (09:29→19:16)
[2021-05-14] MEDS: ARIPiprazole 5 MG TABLET PO (09:29)
[2021-05-14] MEDS: amLODIPine Besylate 10 MG TABLET PO (09:29)
[2021-05-14] MEDS: Acetaminophen 325 MG TABLET 650 MG PO ×3 (09:30→19:15)
[2021-05-14] MEDS: cephALEXin 500 MG CAPSULE PO ×4 (09:30→19:16)
[2021-05-14] MEDS: Gabapentin 100 MG CAPSULE 200 MG PO ×3 (10:04→19:19)
[2021-05-14] MEDS: LORazepam 1 MG TABLET PO ×2 (10:53→16:58)
--- NOTE | 2021-05-14 12:00 | MHC.RECOVRN ---
Met with pt to f/u regarding methadone dose. Pt reports feeling good and looking forward to sd home tomorrow. Pt linked with [facility] on [address] in [place]. Denies questions or concerns. T/w available as needed.
[2021-05-14] MEDS: QUEtiapine Fumarate 25 MG TABLET PO (12:16)
[2021-05-14] MEDS: cloNIDine HCL 0.1 MG TABLET PO (12:16)
[2021-05-14] MEDS: Enoxaparin Sodium 40 MG/0.4 ML SYRINGE SUBCUT (18:45)
[2021-05-14] MEDS: QUEtiapine Fumarate 300 MG TABLET PO (19:16)
[2021-05-14] MEDS: Prazosin HCL 1 MG CAPSULE PO (19:20)
--- NOTE | 2021-05-14 20:54 | P.PNPSI_ITS ---
Subjective Subjective Date of Service: 05/14/21 Reason For Visit: Depression, SI Subjective Notes: Conditional Voluntary Healthcare Proxy: No Guardianship: No Medical Problems Affecting Mental Status: No Interim History: Preparing for discharge. Reported nightmares/anxiety. Discussed her history of use of Valium, Klonopin. Discussed rationale for not prescribing benzodiazepines with methadone and risks associated with this combination. Discussed Prazosin, Abilify titration, prn Seroquel and review of diagnostics, vitamin levels and interventions to assist. Medication Compliance: Yes Side effects from medications: No Attending Groups: Intermittent Review of Systems Acute medical concerns: No Medical Review of Systems: unchanged Review of Systems Psychiatric: Reports anxiety Mental Status Exam Mental Status Exam Patient Appearance: Appropriate Patient Orientation: Person, Place, Time and Situation Level of Consciousness: Alert Patient Behavior: Talkative and Good Eye Contact Mood Description: Anxious Affect Description: Anxious Patient Cognition Impaired: No Ability to Follow Directions: Good Speech Pattern: Spontaneous Speech Memory Description: Intact Hallucinations: None Delusions: Not Present Thought Process: Goal Oriented Thought Content: positive for Goal Oriented Depressive Symptoms: Increased Anxiety Judgement: Good Diagnostics Vital Signs (24Hr): Vital Signs - 24 hr 05/13/21 23:59 05/14/21 06:55 05/14/21 09:29 Temperature 98.0 F Pulse Rate 90 57 63 Respiratory Rate 18 Blood Pressure 120/67 110/55 L 123/70 Pulse Oximetry 98 05/14/21 12:16 05/14/21 16:48 05/14/21 19:20 Temperature 98.5 F Pulse Rate 68 56 60 Respiratory Rate 16 Blood Pressure 113/76 106/55 L 102/62 Pulse Oximetry 97 BMI result Body Mass Index 21.7 Labs Results: 05/11/21 07:46 05/11/21 07:45 Labs: Laboratory Results - last 48 hr 05/11/21 07:45 Vitamin B12 194 L Folate 4.1 Imaging Radiology Impressions: ITS Impressions Chest CT 05/09/21 09:15 IMPRESSION: Improving appearance of the lungs compared to prior CT. The prior consolidation has resolved. The areas of cavitation are decreasing in size. Bandlike peripheral opacities are seen bilaterally which could represent atelectasis or scarring. Fleischner guidelines were followed. Venous Duplex 05/09/21 09:53 IMPRESSION: No DVT demonstrated in the bilateral lower extremities. Chest X-Ray 05/11/21 18:42 IMPRESSION: Bilateral opacities decreased compared to prior likely sequela of previously noted inflammatory infectious process. Medications Medications Current Medications Acetaminophen (Acetaminophen 325 Mg Tablet) 650 mg PO Q6H [facility] Last Admin: 05/14/21 19:15 Dose: 650 mg Documented by: Al Hydroxide/Mg Hydroxide (Magnesium Hydrox/Alum Hydrox 30 Ml Oral.Susp) 30 ml PO Q6H PRN PRN Reason: Heartburn/Nausea Amlodipine Besylate (Amlodipine Besylate 10 Mg Tablet) 10 mg PO DAILY [facility]; Prot ocol Last Admin: 05/14/21 09:29 Dose: 10 mg Documented by: Aripiprazole (Aripiprazole 5 Mg Tablet) 7.5 mg PO DAILY [facility] Cephalexin HCl (Cephalexin 500 Mg Capsule) 500 mg PO QID [facility] Last Admin: 05/14/21 19:16 Dose: 500 mg Documented by: Clonidine HCl (Clonidine Hcl 0.1 Mg Tablet) 0.1 mg PO TID PRN; Protocol PRN Reason: Anxiety Last Admin: 05/14/21 12:16 Dose: 0.1 mg Documented by: Cyanocobalamin (Cyanocobalamin (Vitamin B-12) 100 Mcg Tablet) 100 mcg PO DAILY [facility] Last Admin: 05/14/21 09:29 Dose: 100 mcg Documented by: Enoxaparin Sodium (Enoxaparin Sodium 40 Mg/0.4 Ml Syringe) 40 mg SUBCUT Q24H [facility] Last Admin: 05/14/21 18:45 Dose: 40 mg Documented by: Gabapentin (Gabapentin 100 Mg Capsule) 200 mg PO TID [facility] Last Admin: 05/14/21 19:19 Dose: 200 mg Documented by: Hydroxyzine HCl (Hydroxyzine Hcl 50 Mg Tablet) 50 mg PO Q6H PRN PRN Reason: Anxiety Last Admin: 05/11/21 13:14 Dose: 50 mg Documented by: Lorazepam (Lorazepam 1 Mg Tablet) 1 mg PO Q6H PRN PRN Reason: anxiety Last Admin: 05/14/21 16:58 Dose: 1 mg Documented by: Magnesium Hydroxide (Milk Of Magnesia 30 Ml Oral.Susp) 30 ml PO DAILY PRN PRN Reason: Constipation Methadone HCl (Methadone Hcl 20 Mg/2 Ml Oral.Conc) 60 mg PO DAILY [facility] Last Admin: 05/14/21 09:29 Dose: 60 mg Documented by: Multivitamins/Vitamin C (Multivitamin Tablet) 1 tab PO DAILY [facility] Nicotine (Nicotine 21 Mg Patch.Td24) 21 mg TRANSDERMA DAILY [facility] Last Admin: 05/14/21 09:28 Dose: 21 mg Documented by: Prazosin HCl (Prazosin Hcl 1 Mg Capsule) 1 mg PO BEDTIME [facility]; Protocol Last Admin: 05/14/21 19:20 Dose: 1 mg Documented by: Quetiapine Fumarate (Quetiapine Fumarate 300 Mg Tablet) 300 mg PO BEDTIME [facility] Last Admin: 05/14/21 19:16 Dose: 300 mg Documented by: Quetiapine Fumarate (Quetiapine Fumarate 25 Mg Tablet) 25 mg PO BID PRN PRN Reason: anxiety Last Admin: 05/14/21 12:16 Dose: 25 mg Documented by: Thiamine HCl (Thiamine Hcl 100 Mg Tablet) 100 mg PO DAILY [facility] Topiramate (Topiramate 100 Mg Tablet) 100 mg PO BID [facility] Last Admin: 05/14/21 19:16 Dose: 100 mg Documented by: Trazodone HCl (Trazodone Hcl 50 Mg Tablet) 50 mg PO BEDTIME PRN PRN Reason: Insomnia Allergies Allergies Allergy/AdvReac Type Severity Reaction Status Date / Time bee pollen [BEE STINGS] Allergy Severe Anaphylaxis Verified 02/27/21 06:54 codeine [CODEINE] Allergy Severe ANAPHYLAXIS Verified 02/27/21 06:54 Iodinated Contrast Media Allergy Severe DIFFICULTY Verified 02/27/21 06:54 [IV DYE, IODINE CONTAINING BREATHING CONTRAST ] nut - unspecified [nut] Allergy Intermediate Rash Verified 02/27/21 06:54 shellfish derived Allergy Intermediate Rash Verified 02/27/21 06:54 Sulfa (Sulfonamide Allergy Unknown ANAPHYLAXIS Verified 02/27/21 06:54 Antibiotics) [SULFA (SULFONAMIDE ANTIBIOTICS)] Assessment & Plan Assessment & Plan (1) Opioid use disorder, severe, dependence: Status: Acute Code(s): F11.20 - Opioid dependence, uncomplicated Assessment and Plan: * Increase methadone to 60mg tomorrow * encouraged to get out of bed and shower * follow up tomorrow * Plan disussed with RN and covering provider Assessment and Plan: 05/13/21: Continue current plan. Tentative discharge 05/15/21. 05/14/21: Discharge 05/15/21. Prazosin 1 mg HS to address nightmares. Increase Abilify from 5 mg daily to 7.5 mg daily Seroquel 25 mg bid prn anxiety Vitamin B12 (Thiamine) 100 mg daily Multivitamin 1 tab daily. Pt pleased with new out patient referral sources. I spent 25 minutes with the patient and/or on the patient floor today, greater than?50% of which was spent counseling/coordinating care. Patient educated on: medication risk/benefits and therapeutic strategies Informed Consent: understands Reason for contiued inpatient stay Substantial Risk for: stable for discharge
[2021-05-15 06:00] VITALS: BP 108/60; PULSE 72; TEMP 36.6; O2SAT 98
[2021-05-15] MEDS: QUEtiapine Fumarate 25 MG TABLET PO (06:06)
[2021-05-15] MEDS: hydrOXYzine HCL 50 MG TABLET PO (06:06)
[2021-05-15] MEDS: methADONE HCl 20 MG/2 ML ORAL.CONC 60 MG PO (08:37)
[2021-05-15] MEDS: ARIPiprazole 5 MG TABLET 7.5 MG PO (08:37)
[2021-05-15] MEDS: Gabapentin 100 MG CAPSULE 200 MG PO (08:37)
[2021-05-15] MEDS: Nicotine 21 MG PATCH.TD24 TRANSDERMA (08:37)
[2021-05-15] MEDS: Acetaminophen 325 MG TABLET 650 MG PO ×2 (08:38→08:48)
[2021-05-15] MEDS: Thiamine HCL 100 MG TABLET PO (08:38)
[2021-05-15] MEDS: Topiramate 100 MG TABLET PO (08:38)
[2021-05-15] MEDS: Cyanocobalamin (Vitamin B-12) 100 MCG TABLET PO (08:38)
[2021-05-15] MEDS: cephALEXin 500 MG CAPSULE PO (08:38)
[2021-05-15] MEDS: Multivitamin TABLET 1 TAB PO (08:38)
[2021-05-15 08:39] VITALS: BP 108/60; PULSE 98
[2021-05-15] MEDS: amLODIPine Besylate 10 MG TABLET PO (08:39)
--- NOTE | 2021-05-17 16:13 | PM.PSYDC ---
DS: Providers Provider Date of Service: 05/15/21 Date of admission: 05/09/21 18:31 Date of discharge: 05/15/21 Primary care physician: Jose Rashid [facility] Admitting clinician: Sera Huitron Attending physician on admission: Cheo Potter Consults: 05/09/21 20:00 Addiction Medicine Routine Consulting Provider: Cecy Espino Reason for consultation: Methadone increase Attending physician on discharge: Cheo Potter Discharging clinician: Ritu Olson DS: Diagnosis Discharge Diagnosis (1) MDD (major depressive disorder), recurrent episode, moderate: Status: Acute (2) Opioid use disorder, severe, dependence: Status: Acute (3) Cocaine use disorder: Status: Acute (4) HERSON (generalized anxiety disorder): Status: Acute DS: Medications Discharge Medications Home Medications: Home Medications Medication Instructions Recorded Confirmed amlodipine 10 mg tablet 10 mg PO DAILY 02/13/21 05/09/21 clonidine HCl 0.1 mg tablet 0.1 mg PO TID PRN 02/13/21 05/09/21 Previous Rx's Medication Instructions Recorded aripiprazole 5 mg tablet (Abilify) 7.5 mg PO DAILY #45 tab 05/14/21 cephalexin 500 mg capsule 500 mg PO QID #8 cap 05/14/21 cyanocobalamin (vitamin B-12) 100 100 mcg PO DAILY #30 tab 05/14/21 mcg tablet (Vitamin B-12) enoxaparin 40 mg/0.4 mL 40 mg (0.4 mL) SUBCUT Q24H #0 ml 05/14/21 subcutaneous syringe gabapentin 100 mg capsule 200 mg PO TID #90 cap 05/14/21 hydroxyzine HCl 50 mg tablet 50 mg PO Q6H PRN #30 tab 05/14/21 methadone 10 mg/mL oral 60 mg (6 mL) PO DAILY #0 ml 05/14/21 concentrate (Methadose) multivitamin (Daily-Nirmala) 1 tab PO DAILY #30 tab 05/14/21 nicotine 21 mg/24 hr daily 21 mg TRANSDERMAL DAILY #28 ea 05/14/21 transdermal patch prazosin 1 mg capsule 1 mg PO BEDTIME #15 cap 05/14/21 quetiapine 25 mg tablet 25 mg PO BID PRN #30 tab 12/14/21 quetiapine 300 mg tablet 300 mg PO BEDTIME #15 tab 05/14/21 topiramate 100 mg tablet 100 mg PO BID #60 tab 05/14/21 trazodone 50 mg tablet 50 mg PO BEDTIME PRN #15 tab 05/14/21 naloxone 4 mg/actuation nasal 4 mg INTRANASAL Q2M PRN #2 ea 05/15/21 spray (Narcan) Mental Status Exam Mental Status Exam Patient Appearance: Appropriate Patient Orientation: Person, Place, Time and Situation Level of Consciousness: Alert Patient Behavior: Talkative and Good Eye Contact Mood Description: Anxious Affect Description: Anxious Patient Cognition Impaired: No Ability to Follow Directions: Good Speech Pattern: Spontaneous Speech Memory Description: Intact Hallucinations: None Delusions: Not Present Thought Process: Goal Oriented Thought Content: positive for Goal Oriented Depressive Symptoms: Increased Anxiety Judgement: Good Data Data Completed and Pending Completed studies during hospitalization [Text1]: 05/11/21 05/11/21 05/11/21 07:45 07:45 07:45 WBC RBC Hgb Hct MCV MCH MCHC RDW Plt Count MPV Immature Gran % (Auto) Neut % (Auto) Lymph % (Auto) [place] % (Auto) Eos % (Auto) Baso % (Auto) Lymph # (Auto) [place] # (Auto) Eos # (Auto) Baso # (Auto) Abs Immat Gran (auto) Absolute Neuts (auto) Absolute Nucleated RBC Nucleated RBC % (auto) Smear Tech's Comments PT 11.4 INR 1.0 APTT 56.9 H Sodium 137 Potassium 4.3 Chloride 106 Carbon Dioxide 23 Anion Gap 12 BUN 22 H Creatinine 1.72 H Estim Creat Clear Calc 43.4 Estimated GFR 33 Random Glucose 95 Estimat Average Glucose 105 Hemoglobin A1c % 5.3 Calcium 9.5 Total Bilirubin 0.2 AST 13 ALT 11 Alkaline Phosphatase 85 Total Protein 6.4 L Albumin 3.0 L Triglycerides 582 Cholesterol 227 LDL Cholesterol, Calc TNP HDL Cholesterol 33 Vitamin B12 Folate 05/11/21 05/11/21 07:45 07:46 WBC 8.4 RBC 4.17 L Hgb 12.6 Hct 39.6 MCV 95.0 MCH 30.2 MCHC 31.8 RDW 14.8 Plt Count 266 MPV 13.1 H Immature Gran % (Auto) 0.4 Neut % (Auto) 42.7 L Lymph % (Auto) 35.4 [place] % (Auto) 11.1 H Eos % (Auto) 9.9 H Baso % (Auto) 0.5 Lymph # (Auto) 3.0 [place] # (Auto) 0.9 Eos # (Auto) 0.8 H Baso # (Auto) 0.0 Abs Immat Gran (auto) 0.03 Absolute Neuts (auto) 3.6 Absolute Nucleated RBC 0.000 Nucleated RBC % (auto) 0.0 Smear Tech's Comments VERIFIED PT INR APTT Sodium Potassium Chloride Carbon Dioxide Anion Gap BUN Creatinine Estim Creat Clear Calc Estimated GFR Random Glucose Estimat Average Glucose Hemoglobin A1c % Calcium Total Bilirubin AST ALT Alkaline Phosphatase Total Protein Albumin Triglycerides Cholesterol LDL Cholesterol, Calc HDL Cholesterol Vitamin B12 194 L Folate 4.1 05/09/21 12:27 Blood - Venous Blood Culture - Final No growth after 5 days. 05/09/21 09:38 Blood - Venous Blood Culture - Final No growth after 5 days. Imaging Diagnostic Imaging Impressions Chest CT 05/09/21 09:15 IMPRESSION: Improving appearance of the lungs compared to prior CT. The prior consolidation has resolved. The areas of cavitation are decreasing in size. Bandlike peripheral opacities are seen bilaterally which could represent atelectasis or scarring. Fleischner guidelines were followed. Venous Duplex 05/09/21 09:53 IMPRESSION: No DVT demonstrated in the bilateral lower extremities. Chest X-Ray 05/11/21 18:42 IMPRESSION: Bilateral opacities decreased compared to prior likely sequela of previously noted inflammatory infectious process. DS: Summary Hospital Course Hospital Course: Admission to adult psychiatry to address symptoms of major depression, anxiety, opiate use disorder, cocaine use disorder. Care plan, medication regime and out pt plan of care prior to admission were reviewed. Education was provided regarding managment of symptoms, medications and side effects. Nursing, social and political studies professor and addictions services worked with Melita on collateral contacts, care planning, education regarding managment of symptoms, medications and discharge planning. Abilify, Trazodone and Seroquel were titrated. Methadone was titrated. Prazosin was initiated. Gabapentin and Topiramate were continued. Time spent discussing smoking cessation with patient: 3 to 10 minutes Status at Discharge Functional status at discharge: independent ambulation Overall status at discharge: patient is progressing back to baseline Time Spent with Patient Time attestation: Total time spent providing and/or coordinating discharge services: 30 Time spent: Less than 30 minutes Discharge Plan Discharge Patient Disposition: Home, Self-Care Discharge Diagnosis: Recurrent Major Depression, Moderate Generalized Anxiety Disorder Opiate Use Disorder, currently on replacement therapy (Methadone) Cocaine Use Disorder Hypertension Seizures by history SLE Antiphospholipid antibody positive Referrals: [facility] (methadone) [Other] - 05/16/21 8:00 am (Please present to the clinic on 05/16/21 morning for your methadone and bring your discharge summary and last dose letter to be reinstated in the program) Liz Swann (therapy intake) [Other] - 05/17/21 2:00 pm (The therapy intake appointment is in-office at the above address) Geno Barry (psychiatric medication evaluation) [Other] - 06/12/21 9:00 am (This is a virtual Telehealth appointment) Geno Barry (psychiatric medication management) [Other] - 07/09/21 9:40 am (This is a virtual Telehealth appointment) Jose Rashid FNP-BC [Primary Care Provider] - 1 Week (Office notified, will call pt. Patient missed last appointment and must reestablish MD) Discharge Medications: New nicotine 21 mg/24 hr Patch 24 Hour 21 mg transdermal DAILY Qty: 28 RF: 0 prazosin 1 mg Capsule 1 mg PO BEDTIME Qty: 15 RF: 1 hydroxyzine HCl 50 mg Tablet 50 mg PO Q6H PRN (Reason: Anxiety) Qty: 30 RF: 0 gabapentin 100 mg Capsule 200 mg PO TID Qty: 90 RF: 0 aripiprazole [Abilify] 5 mg Tablet 7.5 mg PO DAILY Qty: 45 RF: 0 quetiapine 25 mg Tablet 25 mg PO BID PRN (Reason: anxiety) Qty: 30 RF: 0 quetiapine 300 mg Tablet 300 mg PO BEDTIME Qty: 15 RF: 1 cyanocobalamin (vitamin B-12) [Vitamin B-12] 100 mcg Tablet 100 mcg PO DAILY Qty: 30 RF: 0 trazodone 50 mg Tablet 50 mg PO BEDTIME PRN (Reason: Insomnia) Qty: 15 RF: 0 topiramate 100 mg Tablet 100 mg PO BID Qty: 60 RF: 0 multivitamin [Daily-Nirmala] Tablet 1 tab PO DAILY Qty: 30 RF: 0 Continued clonidine HCl 0.1 mg Tablet 0.1 mg PO TID PRN (Reason: Anxiety) RF: 0 No Action methadone 10 mg/mL Concentrate 100 mg PO DAILY RF: 0 Discharge Orders: Discharge Order (Routine); Ordered 05/15/21 Ordered By: Ritu Olson Diet: advance to usual diet Activity on Discharge: As tolerated Stand Alone Forms: Patient Portal Discharge page, Community Support Care Plan Goals: Sobriety Mood stabilization Health Concerns: Depression Anxiety Substance Use Plan of Treatment: Attend all follow up appointments Attend Methadone Clinic Take medications as directed Call/return as needed Contact local crisis team as needed Assessment: non-suicidal, non psychotic Discharge Date/Time: 05/15/21 09:50
== END 2021-05-15 09:50 | disposition home or self-care (01) | DRG 885 ==
LOC: HO.ED 14:23 → HO.PM5 18:36
PROVIDERS: Admitting Provider Psychiatry & Neurology Psychiatry; Emergency Provider Emergency Medicine; PCP Nurse Practitioner Family; Visit Provider Social Worker
DX: F33.1 Major depressive disorder, recurrent, moderate (principal); R45.851 Suicidal ideations; F11.23 Opioid dependence with withdrawal; D68.61 Antiphospholipid syndrome; N18.30 Chronic kidney disease, stage 3 unspecified; M32.9 Systemic lupus erythematosus, unspecified; I12.9 Hypertensive chronic kidney disease with stage 1 through stage 4 chronic kidney disease, or unspecified chronic kidney disease; F14.10 Cocaine abuse, uncomplicated; F41.1 Generalized anxiety disorder; R56.9 Unspecified convulsions; Z86.718 Personal history of other venous thrombosis and embolism; Z86.711 Personal history of pulmonary embolism; Z20.822 Contact with and (suspected) exposure to COVID-19; Z86.73 Personal history of transient ischemic attack (TIA), and cerebral infarction without residual deficits; Z88.2 Allergy status to sulfonamides; Z88.5 Allergy status to narcotic agent; Z79.899 Other long term (current) drug therapy
CPT/HCPCS: 36415; 71046; 71250; 80048; 80053; 80061; 80076; 81001; 82607; 82746; 83036; 83605; 83735; 84484; 85007; 85025; 85027; 85610; 85730; 86140; 87040; 87635; 93005; 93970; 99284; J1650

== ENCOUNTER 2021-06-16 17:57 | Inpatient (IN) | payer MEDICARE, SELFPAY ==
--- NOTE | ~2021-06-16 | XR_ITS ---
EXAMINATION: XR CHEST CLINICAL INFORMATION: Pain on a inhalation. COMPARISON: Chest x-ray 05/11/2021 TECHNIQUE: Frontal portable view of the chest was obtained. 8:47 PM FINDINGS: Lung volume low. This causes prominence of the bronchovascular markings. There is no focal consolidation. No pleural effusion and no pneumothorax. Heart size is normal. The cardiac and mediastinal contours are normal. Surgical clips left upper quadrant of abdomen. IVC filter partially imaged in the upper abdomen. XR/XR chest 1V IMPRESSION: Low inspiratory effort radiograph. No acute abnormality of the chest.
[2021-06-16 18:23] VITALS: BP 184/120; PULSE 80; RESP 16; O2SAT 96; BMI 20.2
--- NOTE | 2021-06-16 19:19 | ED_ITS ---
HPI - Psych General Chief Complaint: Psychiatric Symptoms Stated Complaint: Crisis Time Seen by Provider: 06/16/21 19:17 Source: patient Limitations: no limitations History of Present Illness HPI Narrative: This is a 40-year-old female who complains of feeling anxious and depressed, felt like she might hurt herself, thought about taking an overdose of heroin. Patient also notes that she has missed her blood pressure medicine today. She states she is generally compliant with not take it today. She said she has been compliant with taking her Lovenox injection daily, which she needs to take because she has antiphospholipid antibodies and has had prior blood clots. Patient denies any chest pain or shortness of breath, vomiting or diarrhea. She has a mild headache. She has noted recent dysuria and urinary urgency. Patient also notes sore area on her left leg, denies any injection to this area, denies any drainage, denies any fever. Related Data Home Medications Medication Instructions Recorded Confirmed amlodipine 10 mg tablet 10 mg PO DAILY 02/13/21 06/16/21 clonidine HCl 0.1 mg tablet 0.1 mg PO TID PRN 02/13/21 06/16/21 Previous Rx's Medication Instructions Recorded aripiprazole 5 mg tablet (Abilify) 7.5 mg PO DAILY #45 tab 05/14/21 cyanocobalamin (vitamin B-12) 100 100 mcg PO DAILY #30 tab 05/14/21 mcg tablet (Vitamin B-12) enoxaparin 40 mg/0.4 mL 40 mg (0.4 mL) SUBCUT Q24H #0 ml 05/14/21 subcutaneous syringe gabapentin 100 mg capsule 200 mg PO TID #90 cap 05/14/21 hydroxyzine HCl 50 mg tablet 50 mg PO Q6H PRN #30 tab 05/14/21 multivitamin (Daily-Nirmala) 1 tab PO DAILY #30 tab 05/14/21 nicotine 21 mg/24 hr daily 21 mg TRANSDERMAL DAILY #28 ea 05/14/21 transdermal patch prazosin 1 mg capsule 1 mg PO BEDTIME #15 cap 05/14/21 quetiapine 25 mg tablet 25 mg PO BID PRN #30 tab 05/14/21 quetiapine 300 mg tablet 300 mg PO BEDTIME #15 tab 05/14/21 topiramate 100 mg tablet 100 mg PO BID #60 tab 05/14/21 trazodone 50 mg tablet 50 mg PO BEDTIME PRN #15 tab 05/14/21 Allergies Allergy/AdvReac Type Severity Reaction Status Date / Time bee pollen [BEE STINGS] Allergy Severe Anaphylaxis Verified 02/27/21 06:54 codeine [CODEINE] Allergy Severe ANAPHYLAXIS Verified 02/27/21 06:54 Iodinated Contrast Media Allergy Severe DIFFICULTY Verified 02/27/21 06:54 [IV DYE, IODINE CONTAINING BREATHING CONTRAST ] nut - unspecified [nut] Allergy Intermediate Rash Verified 02/27/21 06:54 shellfish derived Allergy Intermediate Rash Verified 02/27/21 06:54 Sulfa (Sulfonamide Allergy Unknown ANAPHYLAXIS Verified 02/27/21 06:54 Antibiotics) [SULFA (SULFONAMIDE ANTIBIOTICS)] Review of Systems Review of Systems: Yes all other systems are reviewed and are negative Constitutional: Constitutional: Reports as per HPI, Denies fever(s) and Reports headache(s) Eyes: Eyes: Reports as per HPI and Reports no additional eye complaints ENT: Reports system reviewed and no additional complaints, except as documented, Reports as per HPI, Reports headache(s), Denies nasal congestion, Denies nasal discharge and Denies sore throat Cardiovascular: Cardiovascular: Reports as per HPI, Denies chest pain and Denies dyspnea Respiratory: Respiratory: Reports as per HPI, Denies cough and Denies dyspnea Gastrointestinal: Gastrointestinal: Reports as per HPI, Denies abdominal pain, Denies diarrhea and Denies vomiting Genitourinary: Genitourinary: Reports as per HPI, Denies hematuria and Reports dysuria Musculoskeletal: Musculoskeletal: Reports no additional musculoskeletal complaints and Denies numbness Integumentary/Breasts: Skin/Breast: Reports as per HPI and Denies rash Neurologic: Reports as per HPI, Reports headache(s), Denies focal weakness, Denies numbness and Denies Sensory deficit (Neuro) Psychiatric: Psychiatric: Reports as per HPI, Reports anxiety and Reports suicidal ideation Endocrine: Endocrine: Reports no additional endocrine complaints and Reports as per HPI Hematologic/Lymphatic: Hematologic/Lymphatic: Reports no additional hematologic/lymphatic complaints, Reports as per HPI and Reports other (No peripheral edema) [facility] Past Medical History Medical History Bipolar disorder Candidemia DVT (deep venous thrombosis) Sander filter in place Lupus Opiate abuse, continuous Opioid use disorder, severe, dependence Pneumonia PTSD (post-traumatic stress disorder) Pulmonary emboli Surgical History History of appendectomy Hx of splenectomy Social History Social History Household Members: None Housing: Apartment Do you presently have visiting nurse or other home services: No Alcohol intake: never Patient Tobacco Use Status: Current someday Tobacco user Tobacco use type: Cigarette e-Cigarette/Vaping Use: Never Used Second Hand Smoke Exposure: Yes Substance Use Type: Crack/Cocaine and Heroin Advance Directives: Yes Advance Directives on File: Yes Advance Directives Date on File: 02/14/21 service: No Current occupational status: employed Sexual orientation: Did not discuss Physical Exam Vital Signs: Vital Signs: Last Vital Signs Temp 98.9 F 06/16/21 21:07 Pulse 56 06/16/21 21:07 Resp 16 06/16/21 21:07 BP 159/93 H 06/16/21 21:07 Pulse Ox 96 06/16/21 21:07 BMI result Body Mass Index 20.2 Const: General: cooperative, no acute distress and alert Orientation/consciousness: patient oriented x3 HENMT: Head: Yes normal to inspection Eyes: General: appearance normal, both eyes and all related structures Eyelids: Yes eyelids normal Conjunctivae: conjunctivae normal Pupils: Equal, round and reactive pupils present Neck: Neck: Yes normal visual inspection and Yes supple Chest: Chest palpation & inspection: normal inspection of the chest Resp: Effort & Inspection: normal respiratory effort Auscultation: clear to auscultation bilaterally Cardio: Rate: regular rate Rhythm: regular rhythm Heart sounds: S1 normal heart sound present, S2 normal heart sound present, no gallops, no murmurs and no rubs GI: Palpation (GI): Soft to palpation, nontender and Other GI palpation findings present (Non-distended) Auscultation: normal bowel sounds Skin: Other: Numerous superficial lesions on face consistent with picking. Left medial calf with approximately 2 in in diameter area of erythema and induration, with a scab in the middle, no drainage or fluctuance, mild localized erythema inferior to this, area is tender to palpation Neuro: General: patient oriented x3, no focal motor deficits and CN's II-XI intact bilaterally Cranial nerves: Yes Equal, round and reactive pupils present Cognition (Neuro): normal cognition Motor exam (neuro): 5/5 motor strength present throughout Sensory Exam: No Sensory deficit (Neuro) Extrem: General: Yes normal to inspection and Yes no pedal edema Psych: Appearance: grossly normal Affect: normal affect MDM - Psych MDM Narrative Medical decision making narrative: Patient with complaint of feeling suicidal, has chronic substance abuse issues. Patient also had incidental findings /complaint of an area of erythema and induration to her left medial calf, as well as UTI symptoms urine analysis which shows evidence of UTI. Patient was started on doxycycline for her cellulitis, then when the urinalysis came back, Keflex was added to this. Patient also has significant hypertension and was medicated with clonidine 0.1 mg p.o., and amlodipine 19 mg p.o., as well as Ativan 1 mg p.o. for anxiety. Patient is to be evaluated by crisis team, also needs ongoing treatment for her UTI and skin infection on her leg Lab Data Attestation: I reviewed the patient's lab results. Labs: Lab Results 06/16/21 06/16/21 06/16/21 Range/Units 19:08 19:08 19:08 Urine Color YELLOW Urine Appearance CLEAR Urine pH 6.0 (5.0-8.0) Ur Specific [place] 1.025 (1.005-1.025) Urine Protein 3+ H (NEG-TRACE) MG/DL Urine Glucose (UA) NEG (NEG) MG/DL Urine Ketones NEG (NEG) MG/DL Urine Blood 1+ H (NEG) Urine Nitrite POS H (NEG) Ur Leukocyte Esterase 1+ H (NEG) Urine RBC 5-9 H (0) /HPF Urine WBC 50-75 H (0-4) /HPF Ur Squamous Epith Cells TRACE /LPF Urine Bacteria 3+ /LPF Urine Test (NEGATIVE) Urine Opiates Screen Not Detected (Not Detect) Urine Fentanyl Screen POSITIVE H (Not Detect) Ur Barbiturates Screen Not Detected (Not Detect) Ur Phencyclidine Scrn Not Detected (Not Detect) Ur Amphetamines Screen Not Detected (Not Detect) U Benzodiazepines Scrn Not Detected (Not Detect) Urine Cocaine Screen POSITIVE H (Not Detect) U Marijuana (THC) Screen Not Detected (Not Detect) COVID-19 (ADAM) Positive A (Negative) COVID-19 Clin Com See Note 06/16/21 Range/Units 19:08 Urine Color Urine Appearance Urine pH (5.0-8.0) Ur Specific [place] (1.005-1.025) Urine Protein (NEG-TRACE) MG/DL Urine Glucose (UA) (NEG) MG/DL Urine Ketones (NEG) MG/DL Urine Blood (NEG) Urine Nitrite (NEG) Ur Leukocyte Esterase (NEG) Urine RBC (0) /HPF Urine WBC (0-4) /HPF Ur Squamous Epith Cells /LPF Urine Bacteria /LPF Urine Test NEGATIVE (NEGATIVE) Urine Opiates Screen (Not Detect) Urine Fentanyl Screen (Not Detect) Ur Barbiturates Screen (Not Detect) Ur Phencyclidine Scrn (Not Detect) Ur Amphetamines Screen (Not Detect) U Benzodiazepines Scrn (Not Detect) Urine Cocaine Screen (Not Detect) U Marijuana (THC) Screen (Not Detect) COVID-19 (ADAM) (Negative) COVID-19 Clin Com Discharge Plan Discharge Clinical Impression: UTI (urinary tract infection), Suicidal ideation, Depression, Cellulitis and abscess of left lower extremity, Hypertension Prescriptions: No Action clonidine HCl 0.1 mg Tablet 0.1 mg PO TID PRN (Reason: Anxiety) RF: 0 amlodipine 10 mg Tablet 10 mg PO DAILY RF: 0 nicotine 21 mg/24 hr Patch 24 Hour 21 mg transdermal DAILY Qty: 28 RF: 0 prazosin 1 mg Capsule 1 mg PO BEDTIME Qty: 15 RF: 1 hydroxyzine HCl 50 mg Tablet 50 mg PO Q6H PRN (Reason: Anxiety) Qty: 30 RF: 0 gabapentin 100 mg Capsule 200 mg PO TID Qty: 90 RF: 0 enoxaparin 40 mg/0.4 mL Syringe 40 mg subcut Q24H Qty: 0 RF: 0 aripiprazole [Abilify] 5 mg Tablet 7.5 mg PO DAILY Qty: 45 RF: 0 quetiapine 25 mg Tablet 25 mg PO BID PRN (Reason: anxiety) Qty: 30 RF: 0 quetiapine 300 mg Tablet 300 mg PO BEDTIME Qty: 15 RF: 1 cyanocobalamin (vitamin B-12) [Vitamin B-12] 100 mcg Tablet 100 mcg PO DAILY Qty: 30 RF: 0 trazodone 50 mg Tablet 50 mg PO BEDTIME PRN (Reason: Insomnia) Qty: 15 RF: 0 topiramate 100 mg Tablet 100 mg PO BID Qty: 60 RF: 0 multivitamin [Daily-Nirmala] Tablet 1 tab PO DAILY Qty: 30 RF: 0
[2021-06-16 19:21] LABS: COVID-19 Test Positive (Negative)
[2021-06-16] MEDS: cloNIDine HCL 0.1 MG TABLET PO (19:23)
[2021-06-16] MEDS: amLODIPine Besylate 10 MG TABLET PO (19:23)
[2021-06-16] MEDS: LORazepam 1 MG TABLET PO (19:23)
[2021-06-16 19:24] VITALS: BP 208/115; PULSE 92
[2021-06-16 19:33] LABS: Amphetamine Screen Urine Not Detected (Not Detect); Barbiturates, Urine Not Detected (Not Detect); Benzodiazepines Screen Urine Not Detected (Not Detect); Cannabinoid Screen Urine Not Detected (Not Detect); Cocaine Screen Urine POSITIVE (Not Detect); Fentanyl, urine POSITIVE (Not Detect); Opiate Screen Urine Not Detected (Not Detect); Phencyclidine Screen Urine Not Detected (Not Detect)
[2021-06-16 19:37] LABS: Appearance Urine CLEAR; Color Urine YELLOW; Glucose Urine UA NEG (NEG); Leukocyte Esterase Urine 1+ (NEG); Nitrite Urine POS (NEG); Specific Gravity - Urine 1.025 (1.005-1.025); UACC Culture Trigger YES; Urine Blood 1+ (NEG); Urine Ketones NEG (NEG); Urine Protein 3+ MG/DL (NEG-TRACE)
[2021-06-16 19:48] LABS: WBC Urine 50-75 /HPF (0-4)
[2021-06-16 19:49] LABS: Bacteria Urine 3+ /LPF; Squamous Epithelial Cell Urine TRACE /LPF; UPreg QC Valid YES; Urine Pregnancy NEGATIVE (NEGATIVE)
[2021-06-16 21:07] VITALS: BP 159/93; PULSE 56; RESP 16; TEMP 37.2; O2SAT 96
[2021-06-16] MEDS: Enoxaparin Sodium 40 MG/0.4 ML SYRINGE SUBCUT (21:21)
[2021-06-16] MEDS: cephALEXin 500 MG CAPSULE PO (23:25)
[2021-06-17 02:34] VITALS: BP 176/110; PULSE 67; RESP 20; TEMP 37.2; O2SAT 97
--- NOTE | 2021-06-17 06:20 | PC.NURSE ---
Patient slept through the night, no distress observed/reported, behavior non-concerning at this time, patient is on Keflex 500 mg x3 for UTI and left lower extremity cellulites, patient COVID +, med rec completed, nighttime medication held due increased sedation except Lovenox administered as ordered, patient was screened by N during overnight shift, patient fully engaged, disposition is section 12 inpatient bed search, VS at baseline except patient was hypertensive due to off medication for weeks, will continue to monitor.
--- NOTE | 2021-06-17 06:40 | PC.NURSE ---
[facility] called at [phone] three times with no response to verify methadone dose, per website it states, dosing hours may effect due to holiday.
--- NOTE | 2021-06-17 07:04 | PC.NURSE ---
patient appears to remain asleep at present respirations ar even and unlabored patient appears in no distress
--- NOTE | 2021-06-17 09:16 | PHA.MEDREC ---
Pharmacy Consult ? Medication Reconciliation Pharmacy has reviewed the medication reconciliation compelted by Audelia. Patient has not filled enoxaparin since 2019 for a 30 day supply. Amlodipine has no record of over a year. Yenny Garcia, PharmD
[2021-06-17] MEDS: Gabapentin 100 MG CAPSULE 200 MG PO ×3 (10:00→21:41)
[2021-06-17] MEDS: amLODIPine Besylate 10 MG TABLET PO (10:00)
[2021-06-17] MEDS: Acetaminophen 325 MG TABLET 650 MG PO ×2 (10:00→14:33)
[2021-06-17] MEDS: Nicotine 21 MG PATCH.TD24 TRANSDERMA (10:01)
[2021-06-17] MEDS: cephALEXin 500 MG CAPSULE PO ×3 (10:01→21:41)
[2021-06-17] MEDS: Topiramate 100 MG TABLET PO ×2 (10:01→21:41)
[2021-06-17] MEDS: Multivitamin TABLET 1 TAB PO (10:01)
[2021-06-17] MEDS: Cyanocobalamin (Vitamin B-12) 100 MCG TABLET PO (10:02)
[2021-06-17] MEDS: ARIPiprazole 5 MG TABLET 7.5 MG PO (10:31)
--- NOTE | 2021-06-17 14:02 | PC.NURSE ---
patient observed fell asleep bent over in her room. chetan notify oncoming staff to this data
[2021-06-17] MEDS: Enoxaparin Sodium 40 MG/0.4 ML SYRINGE SUBCUT (21:41)
[2021-06-17] MEDS: QUEtiapine Fumarate 300 MG TABLET PO (21:41)
[2021-06-17] MEDS: Prazosin HCL 1 MG CAPSULE PO (21:41)
[2021-06-17] MEDS: traZODone HCL 50 MG TABLET PO (21:41)
[2021-06-17 21:51] VITALS: BP 158/97; PULSE 76; TEMP 37.1; O2SAT 95
--- NOTE | 2021-06-18 | ECG_ITS ---
Test Reason : medical clearance Blood Pressure : / mmHG Vent. Rate : 051 BPM Atrial Rate : 051 BPM P-R Int : 166 ms QRS Dur : 080 ms QT Int : 480 ms P-R-T Axes : 060 028 051 degrees QTc Int : 442 ms Sinus bradycardia Minimal voltage criteria for LVH, may be normal variant ( Sokolow-Singh ) Nonspecific T wave abnormality Abnormal ECG When compared with ECG of 09-MAY-2021 10:11, Nonspecific T wave abnormality now evident in Inferior leads Nonspecific T wave abnormality now evident in Anterior leads Referred By: Jose Calix Electronically Signed By:Juan Washington
[2021-06-18 05:47] VITALS: BP 134/86; PULSE 86; RESP 17; TEMP 36.9; O2SAT 98
--- NOTE | 2021-06-18 06:26 | PC.NURSE ---
Patient slept through the night, no distress observed/reported, patient is COVID +/UTI/Cellulitis, behavior non-concerning at this time, medication compliant, disposition per [facility] is section 12 inpatient bed search, will continue to monitor.
--- NOTE | 2021-06-18 07:29 | PC.NURSE ---
patien t appears to remain asleep respirations are even and unlabored, patient appears in no distress
[2021-06-18] MEDS: Gabapentin 100 MG CAPSULE 200 MG PO ×3 (10:10→20:14)
[2021-06-18] MEDS: methADONE HCl 20 MG/2 ML ORAL.CONC 100 MG PO (10:10)
[2021-06-18] MEDS: amLODIPine Besylate 10 MG TABLET PO (10:10)
[2021-06-18] MEDS: ARIPiprazole 5 MG TABLET 7.5 MG PO (10:11)
[2021-06-18] MEDS: Cyanocobalamin (Vitamin B-12) 100 MCG TABLET PO (10:11)
[2021-06-18] MEDS: cephALEXin 500 MG CAPSULE PO ×3 (10:11→20:16)
[2021-06-18] MEDS: Topiramate 100 MG TABLET PO ×2 (10:11→20:21)
[2021-06-18] MEDS: Multivitamin TABLET 1 TAB PO (10:11)
[2021-06-18 15:12] LABS: Hematocrit 43.5 % (37.0-47.0); Hemoglobin 13.6 g/dl (12.0-16.0); Mean Corpuscular HGB Conc 31.3 g/dl (31.0-35.0); Mean Platelet Volume 12.7 fL (9.4-12.3); Platelet Count 304 X10*3/uL (160-400); Red Blood Count 4.53 X10*6/uL (4.20-5.50); Red Cell Distribution Width 14.6 % (11.0-16.0)
[2021-06-18 15:19] LABS: COVID-19 Test Positive (Negative); IDNOW Serial# 9DD0AD1C
[2021-06-18 15:24] LABS: WBC ABN SCTR FOR CBC 1
[2021-06-18 15:25] LABS: White Blood Count 8.3 X10*3/uL (4.8-10.8)
[2021-06-18 15:29] LABS: Alanine Aminotransferase 24 U/L (0-31); Albumin Level 3.4 g/dL (3.5-5.0); Alkaline Phosphatase 83 U/L (39-117); Anion Gap 13 (12-20); Aspartate Amino Transferase 34 U/L (5-31); Bilirubin Total 0.4 mg/dL (0.0-1.0); Blood Urea Nitrogen 32 mg/dL (9-16); Calcium 9.5 mg/dL (8.4-10.2); Carbon Dioxide 29 mmol/L (22-29); Chloride 102 mmol/L (96-108); Estimated Glomerular Filt Rate 25; Glucose Random 111 mg/dL (60-115); Sodium 140 mmol/L (135-145); Total Protein 7.3 g/dL (6.5-8.0)
[2021-06-18 15:41] LABS: Atypical Lymph Absolute Manual 0.2 x10*3/uL; Atypical Lymphs Percent Manual 2 % (0-6); Band Neutrophils Percent 6 % (3-5); Lymphocytes Absolute Manual 3.6 X10*3/uL (1.2-4.9); Lymphocytes Percent Manual 43 % (20-40); Monocytes Absolute Manual 0.6 X10*3/uL (0.1-1.2); Monocytes Percent Manual 7 % (2-11); Neutrophils Percent Manual 42 % (45-73)
[2021-06-18 15:45] LABS: Large Platelet PRESENT; Platelet Estimate NORMAL (NORMAL); Platelet Morphology Comment NOTED; RBC Morphology NORMAL
[2021-06-18 17:59] VITALS: BP 158/84; PULSE 52
--- NOTE | 2021-06-18 18:13 | PC.ADMIT ---
Pt is a 40 year old male presented to M5 from [facility] ED at approximately 1620 on a cv status. Pt is covid +. Utox + for fentanyl and cocaine. Pt has an active medical condition known as hypertension that should be monitored. Pt has been off hypertensive medications for about a week in duration. Pt currently has a UTI/cellulites on LT lower extremity. Pt on abx. EKG is sinus selwyn. Pt denied SI/HI/AV/HV. Pt is diagnosed with MDD, recurrent episode, w/ psychotic features. Pt is currently homeless. Per pt chart, pt presented to [facility] ED secondary to SI w/ plan to OD on heroin. Pt is COVID+, has several visible sores on her face, has cellulites, and a UTI. Pt has impaired judgment, insight, and impulse control by hx and current events. Start treatment plan and monitor for safety.
[2021-06-18] MEDS: QUEtiapine Fumarate 300 MG TABLET PO (20:09)
[2021-06-18] MEDS: Prazosin HCL 1 MG CAPSULE PO (20:09)
[2021-06-18] MEDS: Enoxaparin Sodium 40 MG/0.4 ML SYRINGE SUBCUT (20:16)
[2021-06-19] MEDS: methADONE HCl 20 MG/2 ML ORAL.CONC 100 MG PO (08:36)
[2021-06-19] MEDS: Gabapentin 100 MG CAPSULE 200 MG PO ×3 (08:36→22:14)
[2021-06-19] MEDS: ARIPiprazole 5 MG TABLET 7.5 MG PO (08:36)
[2021-06-19] MEDS: Cyanocobalamin (Vitamin B-12) 100 MCG TABLET PO (08:37)
[2021-06-19 08:41] LABS: Estimated Average Glucose 105 mg/dL; Hemoglobin A1C 131.0207 umol/L; Hemoglobin A1c % 5.3 %
[2021-06-19] MEDS: amLODIPine Besylate 10 MG TABLET PO (08:41)
[2021-06-19] MEDS: cephALEXin 500 MG CAPSULE PO ×4 (08:41→22:14)
[2021-06-19] MEDS: Topiramate 100 MG TABLET PO ×2 (08:42→22:46)
[2021-06-19] MEDS: Multivitamin TABLET 1 TAB PO (08:42)
[2021-06-19 08:55] LABS: Cholesterol 214 mg/dL; HDL Cholesterol 36 mg/dL; Magnesium 2.2 mg/dL (1.6-2.6); Triglycerides 408 mg/dL
[2021-06-19 09:00] VITALS: BP 122/75; PULSE 66; RESP 16; TEMP 36.7; O2SAT 97
[2021-06-19 09:15] LABS: Thyroid Stimulating Hormone 0.54 uIU/mL (0.32-4.0)
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
[2021-06-19 09:30] LABS: Folate 5.1 ng/mL (> or = 4.0); Vitamin B12 266 pg/mL (200-900)
[2021-06-19 09:45] LABS: Appearance Urine CLEAR; Color Urine YELLOW; Glucose Urine UA NEG (NEG); Leukocyte Esterase Urine NEG (NEG); Nitrite Urine NEG (NEG); PH 7.5 (5.0-8.0); UACC Culture Trigger NO; Urine Blood NEG (NEG); Urine Ketones NEG (NEG); Urine Protein 1+ MG/DL (NEG-TRACE)
[2021-06-19 10:52] LABS: RBC Urine 0 /HPF (0); Squamous Epithelial Cell Urine 1+ /LPF
[2021-06-19 22:00] VITALS: BP 134/76; PULSE 99; RESP 18; TEMP 37.1; O2SAT 97
[2021-06-19] MEDS: QUEtiapine Fumarate 300 MG TABLET PO (22:14)
[2021-06-19] MEDS: Prazosin HCL 1 MG CAPSULE PO (22:14)
[2021-06-19] MEDS: Enoxaparin Sodium 40 MG/0.4 ML SYRINGE SUBCUT (22:15)
--- NOTE | 2021-06-20 | ECG_ITS ---
Test Reason : chest pain (on inhalation) Blood Pressure : / mmHG Vent. Rate : 063 BPM Atrial Rate : 063 BPM P-R Int : 182 ms QRS Dur : 088 ms QT Int : 426 ms P-R-T Axes : 072 055 055 degrees QTc Int : 435 ms Normal sinus rhythm Minimal voltage criteria for LVH, may be normal variant ( Sokolow-Singh ) T wave abnormality, consider lateral ischemia Abnormal ECG When compared with ECG of 18-JUN-2021 15:16, No significant change was found Referred By: Yves Mcmillan Electronically Signed By:Juan Washington
[2021-06-20 06:00] VITALS: BP 121/80; PULSE 59; RESP 16; TEMP 36.7; O2SAT 97
[2021-06-20] MEDS: cephALEXin 500 MG CAPSULE PO ×4 (08:51→20:06)
[2021-06-20] MEDS: Cyanocobalamin (Vitamin B-12) 100 MCG TABLET PO (08:51)
[2021-06-20] MEDS: Topiramate 100 MG TABLET PO ×2 (08:51→20:06)
[2021-06-20] MEDS: Multivitamin TABLET 1 TAB PO (08:51)
[2021-06-20] MEDS: amLODIPine Besylate 10 MG TABLET PO (08:51)
[2021-06-20] MEDS: ARIPiprazole 5 MG TABLET 7.5 MG PO (08:51)
[2021-06-20] MEDS: Thiamine HCL 100 MG TABLET PO (08:51)
[2021-06-20] MEDS: Gabapentin 100 MG CAPSULE 200 MG PO ×3 (08:51→20:06)
[2021-06-20] MEDS: methADONE HCl 20 MG/2 ML ORAL.CONC 100 MG PO (09:20)
--- NOTE | 2021-06-20 11:15 | P.PNPSI_ITS ---
Subjective Subjective Date of Service: 06/20/21 Reason For Visit: depression with SI, opiate use disorder-severe on Interim History: Patient reports that she is feeling sad and does not feel like talking much anyone however denies any SI and says she is overall okay. Manager Of Financial reviewed patient's history and patient reports distinct manic episodes where she goes for 1 week without sleep, pressured speech, cleaning the house nonstop, moving around fast, spending excessive amounts of money on unimportant things, taking unexpected and unplanned road trips and then crashing and sleeping for 4- 5 days afterward. Patient says that on current medication regimen she has not had any manic episodes. Her last 1 was a few months ago but this was while she was off medication. Manager Of Financial also asked about her history of seizures. Patient denies any history of seizures at all. 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 She said that was the only time she ever had one. Manager Of Financial and patient discussed addressing her PTSD symptoms and patient remembered that she used to be on Lamictal about 200 mg or more which she said was very helpful for her PTSD symptoms and for overall mood stability. She would like to get back on it. Manager Of Financial reviewed risks/side effects of this medication which patient understood and wants to continue with this medication. She endorses daily flashbacks Patient said that when she is taking deep breaths sometimes it is hurting her chest which is new and started today. Otherwise she denies any other symptoms. Patient said it is not overly bothersome; O2 sat within normal limits. Patient says she will alert staff if this worsens or any other symptoms appear. Review of Systems Constitutional: Reports chills (denies) and Reports fever(s) (denies chills) Reports nasal discharge (denies) Mental Status Exam Mental Status Exam Narrative: Pt is alert and oriented; behavior is cooperative and calm; dressed in casual attire, disheveled and with poor adequate hygiene, numerous scratch karen/lessions on face; mood is described as OK and affect depressed, d owncast;? eye contact appropriate; Speech is normal rate, volume and prosody and not pressured; no psychomotor agitation/retardation present; thought process is a little slowed but overall organized and goal directed; Thought content is on tx; otherwise pertinent to relevant topics and without any delusional content, paranoid ideations or grandiosity; denies any SI/HI. There is no evidence of perceptual disturbance. ?Patients insight and judgment are fair Diagnostics Vital Signs (24Hr): Vital Signs - 24 hr 06/19/21 22:00 06/20/21 06:00 Temperature 98.8 F 98.1 F Pulse Rate 99 59 Respiratory Rate 18 16 Blood Pressure 134/76 121/80 Pulse Oximetry 97 97 BMI result Body Mass Index 20.2 Labs Results: 06/18/21 15:01 06/18/21 15:01 Labs: Laboratory Results - last 48 hr 06/18/21 06/18/21 06/18/21 15:01 15:01 15:01 WBC 8.3 RBC 4.53 Hgb 13.6 Hct 43.5 MCV 96.0 MCH 30.0 MCHC 31.3 RDW 14.6 Plt Count 304 MPV 12.7 H Immature Gran % (Auto) Cancelled Neut % (Auto) Cancelled Lymph % (Auto) Cancelled [place] % (Auto) Cancelled Eos % (Auto) Cancelled Baso % (Auto) Cancelled Lymph # (Auto) Cancelled [place] # (Auto) Cancelled Eos # (Auto) Cancelled Baso # (Auto) Cancelled Abs Immat Gran (auto) Cancelled Absolute Neuts (auto) Cancelled Absolute Nucleated RBC 0.000 Nucleated RBC % (auto) 0.0 Neutrophils % (Manual) 42 L Band Neutrophils % 6 H Lymphocytes % (Manual) 43 H Atypical Lymphs % (Man) 2 Monocytes % (Manual) 7 Abs Neuts (Manual) 4.0 Lymphocytes # (Manual) 3.6 Atyp Lymphs # (Manual) 0.2 Monocytes # (Manual) 0.6 Platelet Estimate NORMAL Large Platelets PRESENT Plt Morphology Comment NOTED RBC Morphology NORMAL Sodium 140 Potassium 4.0 Chloride 102 Carbon Dioxide 29 Anion Gap 13 BUN 32 H Creatinine 2.19 H Estim Creat Clear Calc 32.0 Estimated GFR 25 Random Glucose 111 Estimat Average Glucose Hemoglobin A1c % Calcium 9.5 Magnesium Total Bilirubin 0.4 AST 34 H D ALT 24 Alkaline Phosphatase 83 Total Protein 7.3 Albumin 3.4 L Triglycerides Cholesterol LDL Cholesterol, Calc HDL Cholesterol Vitamin B12 Folate TSH Free T4 Urine Color Urine Appearance Urine pH Ur Specific [place] Urine Protein Urine Glucose (UA) Urine Ketones Urine Blood Urine Nitrite Ur Leukocyte Esterase Urine RBC Urine WBC Ur Squamous Epith Cells Urine Bacteria COVID-19 (ADAM) Positive A COVID-19 Clin Com See Note 06/19/21 06/19/21 06/19/21 08:01 08:01 08:01 WBC RBC Hgb Hct MCV MCH MCHC RDW Plt Count MPV Immature Gran % (Auto) Neut % (Auto) Lymph % (Auto) [place] % (Auto) Eos % (Auto) Baso % (Auto) Lymph # (Auto) [place] # (Auto) Eos # (Auto) Baso # (Auto) Abs Immat Gran (auto) Absolute Neuts (auto) Absolute Nucleated RBC Nucleated RBC % (auto) Neutrophils % (Manual) Band Neutrophils % Lymphocytes % (Manual) Atypical Lymphs % (Man) Monocytes % (Manual) Abs Neuts (Manual) Lymphocytes # (Manual) Atyp Lymphs # (Manual) Monocytes # (Manual) Platelet Estimate Large Platelets Plt Morphology Comment RBC Morphology Sodium Potassium Chloride Carbon Dioxide Anion Gap BUN Creatinine Estim Creat Clear Calc Estimated GFR Random Glucose Estimat Average Glucose 105 Hemoglobin A1c % 5.3 Calcium Magnesium 2.2 Total Bilirubin AST ALT Alkaline Phosphatase Total Protein Albumin Triglycerides 408 Cholesterol 214 LDL Cholesterol, Calc TNP HDL Cholesterol 36 Vitamin B12 266 Folate 5.1 TSH 0.54 Free T4 0.70 L Urine Color Urine Appearance Urine pH Ur Specific [place] Urine Protein Urine Glucose (UA) Urine Ketones Urine Blood Urine Nitrite Ur Leukocyte Esterase Urine RBC Urine WBC Ur Squamous Epith Cells Urine Bacteria COVID-19 (AD[facility]) COVID-19 Clin Com 06/19/21 09:26 WBC RBC Hgb Hct MCV MCH MCHC RDW Plt Count MPV Immature Gran % (Auto) Neut % (Auto) Lymph % (Auto) [place] % (Auto) Eos % (Auto) Baso % (Auto) Lymph # (Auto) [place] # (Auto) Eos # (Auto) Baso # (Auto) Abs Immat Gran (auto) Absolute Neuts (auto) Absolute Nucleated RBC Nucleated RBC % (auto) Neutrophils % (Manual) Band Neutrophils % Lymphocytes % (Manual) Atypical Lymphs % (Man) Monocytes % (Manual) Abs Neuts (Manual) Lymphocytes # (Manual) Atyp Lymphs # (Manual) Monocytes # (Manual) Platelet Estimate Large Platelets Plt Morphology Comment RBC Morphology Sodium Potassium Chloride Carbon Dioxide Anion Gap BUN Creatinine Estim Creat Clear Calc Estimated GFR Random Glucose Estimat Average Glucose Hemoglobin A1c % Calcium Magnesium Total Bilirubin AST ALT Alkaline Phosphatase Total Protein Albumin Triglycerides Cholesterol LDL Cholesterol, Calc HDL Cholesterol Vitamin B12 Folate TSH Free T4 Urine Color YELLOW Urine Appearance CLEAR Urine pH 7.5 Ur Specific [place] 1.010 Urine Protein 1+ H Urine Glucose (UA) NEG Urine Ketones NEG Urine Blood NEG Urine Nitrite NEG Ur Leukocyte Esterase NEG Urine RBC 0 Urine WBC 1-4 Ur Squamous Epith Cells 1+ Urine Bacteria NONE COVID-19 (AD[facility]) COVID-19 Clin Com Medications Medications Current Medications Acetaminophen (Acetaminophen 325 Mg Tablet) 650 mg PO Q6H PRN PRN Reason: Headache/Pain Mild Scale (1-3) Al Hydroxide/Mg Hydroxide (Magnesium Hydrox/Alum Hydrox 30 Ml Oral.Susp) 30 ml PO Q6H PRN PRN Reason: Heartburn/Nausea Amlodipine Besylate (Amlodipine Besylate 10 Mg Tablet) 10 mg PO DAILY [facility]; Protocol Last Admin: 06/20/21 08:51 Dose: 10 mg Documented by: Aripiprazole (Aripiprazole 5 Mg Tablet) 7.5 mg PO DAILY [facility] Last Admin: 06/20/21 08:51 Dose: 7.5 mg Documented by: Cephalexin HCl (Cephalexin 500 Mg Capsule) 500 mg PO QID [facility] Stop: 06/24/21 23:55 Last Admin: 06/20/21 08:51 Dose: 500 mg Documented by: Clonidine HCl (Clonidine Hcl 0.1 Mg Tablet) 0.1 mg PO TID PRN; Protocol PRN Reason: Anxiety Cyanocobalamin (Cyanocobalamin (Vitamin B-12) 100 Mcg Tablet) 100 mcg PO DAILY [facility] Last Admin: 06/20/21 08:51 Dose: 100 mcg Documented by: Doxycycline Hyclate (Doxycycline Hyclate 100 Mg Tablet) 100 mg PO BID [facility] Last Admin: 06/20/21 08:51 Dose: 100 mg Documented by: Enoxaparin Sodium (Enoxaparin Sodium 40 Mg/0.4 Ml Syringe) 40 mg SUBCUT Q24H [facility] Last Admin: 06/19/21 22:15 Dose: 40 mg Documented by: Gabapentin (Gabapentin 100 Mg Capsule) 200 mg PO TID [facility] Last Admin: 06/20/21 08:51 Dose: 200 mg Documented by: Hydroxyzine HCl (Hydroxyzine Hcl 50 Mg Tablet) 50 mg PO Q6H PRN PRN Reason: Anxiety Magnesium Hydroxide (Milk Of Magnesia 30 Ml Oral.Susp) 30 ml PO DAILY PRN PRN Reason: Constipation Methadone HCl (Methadone Hcl 20 Mg/2 Ml Oral.Conc) 100 mg PO DAILY [facility] Last Admin: 06/20/21 09:20 Dose: 100 mg Documented by: Multivitamins/Vitamin C (Multivitamin Tablet) 1 tab PO DAILY [facility] Last Admin: 06/20/21 08:51 Dose: 1 tab Documented by: Nicotine (Nicotine 21 Mg Patch.Td24) 21 mg TRANSDERMA DAILY [facility] Last Admin: 06/20/21 09:18 Dose: Not Given Documented by: Pharmacy Consult (Consult Rx Perform Med Rec) 1 each MISCELLANE ONCE PRN PRN Reason: Consult order Prazosin HCl (Prazosin Hcl 1 Mg Capsule) 1 mg PO BEDTIME [facility]; Protocol Last Admin: 06/19/21 22:14 Dose: 1 mg Documented by: Quetiapine Fumarate (Quetiapine Fumarate 300 Mg Tablet) 300 mg PO BEDTIME [facility] Last Admin: 06/19/21 22:14 Dose: 300 mg Documented by: Quetiapine Fumarate (Quetiapine Fumarate 25 Mg Tablet) 25 mg PO BID PRN PRN Reason: anxiety Thiamine HCl (Thiamine Hcl 100 Mg Tablet) 100 mg PO DAILY [facility] Last Admin: 06/20/21 08:51 Dose: 100 mg Documented by: Topiramate (Topiramate 100 Mg Tablet) 100 mg PO BID [facility] Last Admin: 06/20/21 08:51 Dose: 100 mg Documented by: Allergies Allergies Allergy/AdvReac Type Severity Reaction Status Date / Time bee pollen [BEE STINGS] Allergy Severe Anaphylaxis Verified 02/27/21 06:54 codeine [CODEINE] Allergy Severe ANAPHYLAXIS Verified 02/27/21 06:54 Iodinated Contrast Media Allergy Severe DIFFICULTY Verified 02/27/21 06:54 [IV DYE, IODINE CONTAINING BREATHING CONTRAST ] nut - unspecified [nut] Allergy Intermediate Rash Verified 02/27/21 06:54 shellfish derived Allergy Intermediate Rash Verified 02/27/21 06:54 Sulfa (Sulfonamide Allergy Unknown ANAPHYLAXIS Verified 02/27/21 06:54 Antibiotics) [SULFA (SULFONAMIDE ANTIBIOTICS)] Assessment & Plan Assessment & Plan (1) MDD (major depressive disorder), recurrent episode, moderate: Status: Acute Code(s): F33.1 - Major depressive disorder, recurrent, moderate (2) PTSD (post-traumatic stress disorder): Status: Acute Code(s): F43.10 - Post-traumatic stress disorder, unspecified (3) Antiphospholipid antibody syndrome: Status: Acute Code(s): D68.61 - Antiphospholipid syndrome (4) Antiphospholipid antibody positive: Status: Acute Code(s): R76.0 - Raised antibody titer (5) UTI (urinary tract infection): Status: Acute Code(s): N39.0 - Urinary tract infection, site not specified (6) Cellulitis and abscess of left lower extremity: Status: Acute Code(s): L03.116 - Cellulitis of left lower limb; L02.416 - Cutaneous abscess of left lower limb (7) Hypertension: Status: Acute Code(s): I10 - Essential (primary) hypertension (8) Opioid use disorder, severe, dependence: Status: Acute Code(s): F11.20 - Opioid dependence, uncomplicated (9) Cocaine use disorder: Status: Acute Code(s): F14.10 - Cocaine abuse, uncomplicated Assessment and Plan: IMPRESSION: 40-year-old female with a past medical history of IV drug abuse, PTSD, Bipolar disorder, antiphospholipid syndrome complicated by CVA, multiple DVT/PE status post IVC filter, HTN, CKD stage III, hep C. (r/o HERSON). Patient presents after recent discharge from [facility] this past May 2021 in the face of a relapse, overwhelming anxiety, depression and then suicidal ideation with thoughts to overdose. Patient reports she has been adherent with her medication regimen, which she knows by names and doses. Patient brought to ED by friend. Patient reports that suicidality was sudden and the thought impulsive. She denies any preceding intent or plans and reports that SI has now resolved. Patient said she feels she probably needs an aftercare program to help stabilize longer-term. Patient denies any AVH and does not know why that was mentioned. Patient was found to be COVID positive on admission; also with cellulitis on left lower leg and UTI started on antibiotics. -admit for safety and stabilization 06/20 patient reports depression remains but SI remains fully resolved. She would like to restart Lamictal which she says was very helpful in the past for both mood and PTSD symptoms. Patient reports some chest pain on inhalation only but denies any other symptoms; she will alert staff if anything changes; O2 sat within normal limits and patient afebrile. Manager Of Financial will consult hospitalist to see if there is any other recommendations given patient's report. -regarding patient's antiphospholipid syndrome and theoretical increased risk for clotting while COVID positive, Manager Of Financial called and discussed case with Dr. Casiano, early education teacher/oncologist who explained current recommendations and recommends continuing patient on home dose of enoxaparin without need to increase dose or add another anticoagulant either during admission or post discharge. PLAN: CV Q 15 minute checks for safety COVID positive: -Currently in isolation room -reports some chest pain on inhalation only; denies any other symptoms -vitals WNL Depression/AnxietyPTSD/substance abuse: START Lamictal 25mg; titrate according to recommended schedule for PTSD and mood stability; patient has been on in the past and reports was helpful Abilify a 7.5 mg daily Clonidine 0.1 mg t.i.d. p.r.n. Hydroxyzine 50 mg q.6 p.r.n. Methadone Prazosin 1 mg q.h.s. Seroquel 300 mg q.h.s. Seroquel 25 mg b.i.d. p.r.n. for anxiety Topamax 100 mg b.i.d. for mood and headache (normally 200mg BiD but in Apr 2021, decreased to 100 mg BID at [facility] [place] due to GERRI) -Patient is asking for program post discharge; SW will review options Lower left limb Cellulitis and UTI (MRSA UTI and MRSA/MSSA Cellulitis) Doxycycline 100 mg b.i.d. for 7 days Keflex 500 mg q.i.d. for 7 days -case discussed with ED physician Dr. Jaffe who recommends above regimen (MRSA grown in urine) Rule out: HERSON NO Seizure disorder: Patient explains history and denies any history of seizure at all other than 1 time when she was 14 years old following of vasculitis/stroke. -She was seen at [facility] [place] on 03/14/21 and started on keppra 750 mg BID for seizures but has been non-adherent with medication since relapse. -had been on dilantin for seizures, which had been stopped for about 10 yrs due to not having any seizures. -Pt reports last had a seizure in Apr 2021; however denies being diagnosed with epilepsy or pseudoseizures, not sure how long they last but they are tonic/clonic in nature, sometimes has an aura and remember them, she does not have a current neurologist.? Antiphospholipid syndrome: -Enoxaparin -will consult hospitalist to see if COVID + status increases risk for blood clots and potential need for additional anticoagulation Hypertension: Amlodipine Past hx recorded on 05/09/21 admission note: -fall 2020 admitted to the [facility] for MRSA bacteremia/bilateral empyema status post chest tube placement; subsequently chest tube was removed; echocardiogram done which showed no evidence of vegetations, MRI of the lumbar spine with no evidence of epidural abscess; and sent to rehab via to finish antibiotics via Port-A-Cath until 02/13/2021; pt left AMA -admitted to [facility] on 02/14/21 due to sepsis, aspiration pneumonia as well as fungemia; discharged to [facility] in [place] on lovenox, as she preferred this to warfarin. -She was recently seen at [facility] [place] on 03/14/21 and started on keppra 750 mg BID for seizures but has been non-adherent with medication since relapse. -had been on dilantin for seizures, which had been stopped for about 10 yrs due to not having any seizures. -Pt reports last had a seizure in Apr 2021; however denies being diagnosed with epilepsy or pseudoseizures, not sure how long they last but they are tonic/clonic in nature, sometimes has an aura and remember them, she does not have a current neurologist.? -was on anticoagulation and 2015; anticoagulation was discontinued post menorrhagia in 2014 and reportedly has not had any blood clots since then; I spent minutes with the patient and/or on the patient floor today, greater than?50% of which was spent counseling/coordinating care. Reason for contiued inpatient stay Substantial Risk for: rapid decompensation
[2021-06-20 17:25] VITALS: BP 131/74; PULSE 71; RESP 18; TEMP 36.4
[2021-06-20] MEDS: lamoTRIgine 25 MG TABLET PO (17:42)
[2021-06-20] MEDS: QUEtiapine Fumarate 300 MG TABLET PO (20:06)
[2021-06-20] MEDS: Prazosin HCL 1 MG CAPSULE PO (20:06)
[2021-06-20 20:12] LABS: Troponin-I High Sensitivity 8.1 ng/L (<3.5-17.0)
[2021-06-20] MEDS: Enoxaparin Sodium 40 MG/0.4 ML SYRINGE SUBCUT (21:38)
[2021-06-21] MEDS: methADONE HCl 20 MG/2 ML ORAL.CONC 100 MG PO (08:45)
[2021-06-21] MEDS: Gabapentin 100 MG CAPSULE 200 MG PO ×3 (08:45→21:39)
[2021-06-21] MEDS: amLODIPine Besylate 10 MG TABLET PO (08:46)
[2021-06-21] MEDS: cephALEXin 500 MG CAPSULE PO ×4 (08:46→21:39)
[2021-06-21] MEDS: lamoTRIgine 25 MG TABLET PO (08:46)
[2021-06-21] MEDS: ARIPiprazole 5 MG TABLET 7.5 MG PO (08:46)
[2021-06-21] MEDS: Thiamine HCL 100 MG TABLET PO (08:46)
[2021-06-21] MEDS: Cyanocobalamin (Vitamin B-12) 100 MCG TABLET PO (08:46)
[2021-06-21] MEDS: Topiramate 100 MG TABLET PO ×2 (08:46→21:39)
[2021-06-21] MEDS: Multivitamin TABLET 1 TAB PO (08:46)
[2021-06-21 08:59] VITALS: BP 113/68; PULSE 88; RESP 16; TEMP 37; O2SAT 96
--- NOTE | 2021-06-21 15:03 | P.PNPSI_ITS ---
Subjective Subjective Date of Service: 06/21/21 Reason For Visit: depression with SI, opiate use disorder-severe on Interim History: Melita remains in isolation due to COVID until 06/26/21. She reports some physical symptoms, including a prominent sore throat (will order culture) and spray/drops for relief. Cellulitis is improving-she is confused about this as this area is not an area where she has injected-discussed formation of cellulitis. Reports an increase of anxiety and depression-lamictal initiated with Dr. Mcmillan-pt asks for anxiety medication. Remeron 7.5 mg hs and Seroquel 50 mg bid ordered to assist with sx mgt. Medication Compliance: Yes Side effects from medications: No Attending Groups: No Review of Systems current covid pt Medical Review of Systems: unchanged Review of Systems Reports sore throat Psychiatric: Reports anxiety, Reports depression, Reports difficulty concentrating and Reports hopelessness Mental Status Exam Mental Status Exam Patient Appearance: Appropriate Patient Orientation: Person, Place, Time and Situation Level of Consciousness: Alert Patient Behavior: Appropriate and Good Eye Contact Mood Description: Depressed and Anxious Affect Description: Flat Patient Cognition Impaired: No Ability to Follow Directions: Excellent Speech Pattern: Spontaneous Speech Memory Description: Intact Hallucinations: None Delusions: Not Present Thought Process: Distracted and Rumination Thought Content: positive for Perseveration Depressive Symptoms: Increased Anxiety, Difficulty Sleeping, Hopelessness, Unhappiness and Thoughts of /Suicide Judgement: Fair Diagnostics Vital Signs (24Hr): Vital Signs - 24 hr 06/20/21 17:25 06/21/21 08:59 Temperature 97.6 F 98.6 F Pulse Rate 71 88 Respiratory Rate 18 16 Blood Pressure 131/74 113/68 Pulse Oximetry 96 BMI result Body Mass Index 20.2 Labs Results: 06/18/21 15:01 06/18/21 15:01 Labs: Laboratory Results - last 48 hr 06/20/21 19:46 Troponin I High Sens 8.1 D Imaging Radiology Impressions: ITS Impressions Chest X-Ray 06/20/21 20:55 IMPRESSION: Low inspiratory effort radiograph. No acute abnormality of the chest. Medications Medications Current Medications Acetaminophen (Acetaminophen 325 Mg Tablet) 650 mg PO Q6H PRN PRN Reason: Headache/Pain Mild Scale (1-3) Al Hydroxide/Mg Hydroxide (Magnesium Hydrox/Alum Hydrox 30 Ml Oral.Susp) 30 ml PO Q6H PRN PRN Reason: Heartburn/Nausea Amlodipine Besylate (Amlodipine Besylate 10 Mg Tablet) 10 mg PO DAILY [facility]; Protocol Last Admin: 06/21/21 08:46 Dose: 10 mg Documented by: Aripiprazole (Aripiprazole 5 Mg Tablet) 7.5 mg PO DAILY [facility] Last Admin: 06/21/21 08:46 Dose: 7.5 mg Documented by: Cephalexin HCl (Cephalexin 500 Mg Capsule) 500 mg PO QID [facility] Stop: 06/24/21 23:55 Last Admin: 06/21/21 14:06 Dose: 500 mg Documented by: Clonidine HCl (Clonidine Hcl 0.1 Mg Tablet) 0.1 mg PO TID PRN; Protocol PRN Reason: Anxiety Cyanocobalamin (Cyanocobalamin (Vitamin B-12) 100 Mcg Tablet) 100 mcg PO DAILY [facility] Last Admin: 06/21/21 08:46 Dose: 100 mcg Documented by: Doxycycline Hyclate (Doxycycline Hyclate 100 Mg Tablet) 100 mg PO BID [facility] Last Admin: 06/21/21 08:46 Dose: 100 mg Documented by: Enoxaparin Sodium (Enoxaparin Sodium 40 Mg/0.4 Ml Syringe) 40 mg SUBCUT Q24H [facility] Last Admin: 06/20/21 21:38 Dose: 40 mg Documented by: Gabapentin (Gabapentin 100 Mg Capsule) 200 mg PO TID [facility] Last Admin: 06/21/21 14:05 Dose: 200 mg Documented by: Hydroxyzine HCl (Hydroxyzine Hcl 50 Mg Tablet) 50 mg PO Q6H PRN PRN Reason: Anxiety Lamotrigine (Lamotrigine 25 Mg Tablet) 25 mg PO DAILY [facility] Last Admin: 06/21/21 08:46 Dose: 25 mg Documented by: Magnesium Hydroxide (Milk Of Magnesia 30 Ml Oral.Susp) 30 ml PO DAILY PRN PRN Reason: Constipation Methadone HCl (Methadone Hcl 20 Mg/2 Ml Oral.Conc) 100 mg PO DAILY [facility] Last Admin: 06/21/21 08:45 Dose: 100 mg Documented by: Multivitamins/Vitamin C (Multivitamin Tablet) 1 tab PO DAILY [facility] Last Admin: 06/21/21 08:46 Dose: 1 tab Documented by: Nicotine (Nicotine 21 Mg Patch.Td24) 21 mg TRANSDERMA DAILY [facility] Last Admin: 06/21/21 08:58 Dose: Not Given Documented by: Pharmacy Consult (Consult Rx Perform Med Rec) 1 each MISCELLANE ONCE PRN PRN Reason: Consult order Prazosin HCl (Prazosin Hcl 1 Mg Capsule) 1 mg PO BEDTIME [facility]; Protocol Last Admin: 06/20/21 20:06 Dose: 1 mg Documented by: Quetiapine Fumarate (Quetiapine Fumarate 300 Mg Tablet) 300 mg PO BEDTIME [facility] Last Admin: 06/20/21 20:06 Dose: 300 mg Documented by: Quetiapine Fumarate (Quetiapine Fumarate 25 Mg Tablet) 25 mg PO BID PRN PRN Reason: anxiety Thiamine HCl (Thiamine Hcl 100 Mg Tablet) 100 mg PO DAILY [facility] Last Admin: 06/21/21 08:46 Dose: 100 mg Documented by: Topiramate (Topiramate 100 Mg Tablet) 100 mg PO BID [facility] Last Admin: 06/21/21 08:46 Dose: 100 mg Documented by: Allergies Allergies Allergy/AdvReac Type Severity Reaction Status Date / Time bee pollen [BEE STINGS] Allergy Severe Anaphylaxis Verified 02/27/21 06:54 codeine [CODEINE] Allergy Severe ANAPHYLAXIS Verified 02/27/21 06:54 Iodinated Contrast Media Allergy Severe DIFFICULTY Verified 02/27/21 06:54 [IV DYE, IODINE CONTAINING BREATHING CONTRAST ] nut - unspecified [nut] Allergy Intermediate Rash Verified 02/27/21 06:54 shellfish derived Allergy Intermediate Rash Verified 02/27/21 06:54 Sulfa (Sulfonamide Allergy Unknown ANAPHYLAXIS Verified 02/27/21 06:54 Antibiotics) [SULFA (SULFONAMIDE ANTIBIOTICS)] Assessment & Plan Assessment & Plan (1) MDD (major depressive disorder), recurrent episode, moderate: Status: Acute Code(s): F33.1 - Major depressive disorder, recurrent, moderate (2) PTSD (post-traumatic stress disorder): Status: Acute Code(s): F43.10 - Post-traumatic stress disorder, unspecified (3) Antiphospholipid antibody syndrome: Status: Acute Code(s): D68.61 - Antiphospholipid syndrome (4) Antiphospholipid antibody positive: Status: Acute Code(s): R76.0 - Raised antibody titer (5) UTI (urinary tract infection): Status: Acute Code(s): N39.0 - Urinary tract infection, site not specified (6) Cellulitis and abscess of left lower extremity: Status: Acute Code(s): L03.116 - Cellulitis of left lower limb; L02.416 - Cutaneous abscess of left low er limb (7) Hypertension: Status: Acute Code(s): I10 - Essential (primary) hypertension (8) Opioid use disorder, severe, dependence: Status: Acute Code(s): F11.20 - Opioid dependence, uncomplicated (9) Cocaine use disorder: Status: Acute Code(s): F14.10 - Cocaine abuse, uncomplicated Assessment and Plan: IMPRESSION: 40-year-old female with a past medical history of IV drug abuse, PTSD, Bipolar disorder, antiphospholipid syndrome complicated by CVA, multiple DVT/PE status post IVC filter, HTN, CKD stage III, hep C. (r/o HERSON). Patient presents after recent discharge from [facility] this past May 2021 in the face of a relapse, overwhelming anxiety, depression and then suicidal ideation with thoughts to overdose. Patient reports she has been adherent with her medication regimen, which she knows by names and doses. Patient brought to ED by friend. Patient reports that suicidality was sudden and the thought impulsive. She denies any preceding intent or plans and reports that SI has now resolved. Patient said she feels she probably needs an aftercare program to help stabilize longer-term. Patient denies any AVH and does not know why that was mentioned. Patient was found to be COVID positive on admission; also with cellulitis on left lower leg and UTI started on antibiotics. -admit for safety and stabilization 06/20 patient reports depression remains but SI remains fully resolved. She would like to restart Lamictal which she says was very helpful in the past for both mood and PTSD symptoms. Patient reports some chest pain on inhalation only but denies any other symptoms; she will alert staff if anything changes; O2 sat within normal limits and patient afebrile. Customs Inspector will consult hospitalist to see if there is any other recommendations given patient's report. -regarding patient's antiphospholipid syndrome and theoretical increased risk for clotting while COVID positive, Customs Inspector called and discussed case with Dr. Casiano, artist scientific/oncologist who explained current recommendations and recommends continuing patient on home dose of enoxaparin without need to increase dose or add another anticoagulant either during admission or post discharge. PLAN: CV Q 15 minute checks for safety COVID positive: -Currently in isolation room -reports some chest pain on inhalation only; denies any other symptoms -vitals WNL Depression/AnxietyPTSD/substance abuse: START Lamictal 25mg; titrate according to recommended schedule for PTSD and mood stability; patient has been on in the past and reports was helpful Abilify a 7.5 mg daily Clonidine 0.1 mg t.i.d. p.r.n. Hydroxyzine 50 mg q.6 p.r.n. Methadone Prazosin 1 mg q.h.s. Seroquel 300 mg q.h.s. Seroquel 25 mg b.i.d. p.r.n. for anxiety Topamax 100 mg b.i.d. for mood and headache (normally 200mg BiD but in Apr 2021, decreased to 100 mg BID at [facility] due to GERRI) -Patient is asking for program post discharge; SW will review options Lower left limb Cellulitis and UTI (MRSA UTI and MRSA/MSSA Cellulitis) Doxycycline 100 mg b.i.d. for 7 days Keflex 500 mg q.i.d. for 7 days -case discussed with ED physician Dr. Jaffe who recommends above regimen (MRSA grown in urine) Rule out: HERSON NO Seizure disorder: Patient explains history and denies any history of seizure at all other than 1 time when she was 14 years old following of vasculitis/stroke. -She was seen at [facility] on 03/14/21 and started on keppra 750 mg BID for seizures but has been non-adherent with medication since relapse. -had been on dilantin for seizures, which had been stopped for about 10 yrs due to not having any seizures. -Pt reports last had a seizure in Apr 2021; however denies being diagnosed with epilepsy or pseudoseizures, not sure how long they last but they are tonic/clonic in nature, sometimes has an aura and remember them, she does not have a current neurologist.? Antiphospholipid syndrome: -Enoxaparin -will consult hospitalist to see if COVID + status increases risk for blood clots and potential need for additional anticoagulation Hypertension: Amlodipine Past hx recorded on 05/09/21 admission note: -fall 2020 admitted to the [facility] for MRSA bacteremia/bilateral empyema status post chest tube placement; subsequently chest tube was removed; echocardiogram done which showed no evidence of vegetations, MRI of the lumbar spine with no evidence of epidural abscess; and sent to rehab via to finish antibiotics via Port-A-Cath until 02/13/2021; pt left AMA -admitted to [facility] on 02/14/21 due to sepsis, aspiration pneumonia as well as fungemia; discharged to [facility] in [place] on lovenox, as she preferred this to warfarin. -She was recently seen at [facility] on 03/14/21 and started on keppra 750 mg BID for seizures but has been non-adherent with medication since relapse. -had been on dilantin for seizures, which had been stopped for about 10 yrs due to not having any seizures. -Pt reports last had a seizure in Apr 2021; however denies being diagnosed with epilepsy or pseudoseizures, not sure how long they last but they are tonic/clonic in nature, sometimes has an aura and remember them, she does not have a current neurologist.? -was on anticoagulation and 2015; anticoagulation was discontinued post menorrhagia in 2014 and reportedly has not had any blood clots since then; 06/21/21 Pt reporting sore throat, anxiety, depression. 1. Throat culture, throat spray, drops for discomfort 2. Seroquel 50 mg bid to assist with anxiety mgt during Lamictal titration 3. Remeron 7.5 mg HS MRX1 during Lamictal titration I spent 35 minutes with the patient and/or on the patient floor today, greater than?50% of which was spent counseling/coordinating care. Patient educated on: medication risk/benefits, therapeutic strategies and medical condition Informed Consent: understands and further education needed Reason for contiued inpatient stay Substantial Risk for: harm to self, inability to function, rapid decompensation and med/psych decompensation
[2021-06-21] MEDS: Acetaminophen 325 MG TABLET 650 MG PO (17:37)
[2021-06-21] MEDS: hydrOXYzine HCL 50 MG TABLET PO (17:38)
[2021-06-21] MEDS: Throat Lozenge, Medicated LOZENGE 1 LOZENGE MUCOUS MEM (21:39)
[2021-06-21] MEDS: Mirtazapine 7.5 MG TABLET PO (21:39)
[2021-06-21] MEDS: QUEtiapine Fumarate 50 MG TABLET PO (21:39)
[2021-06-21] MEDS: QUEtiapine Fumarate 300 MG TABLET PO (21:39)
[2021-06-21] MEDS: Prazosin HCL 1 MG CAPSULE PO (21:40)
[2021-06-21] MEDS: Enoxaparin Sodium 40 MG/0.4 ML SYRINGE SUBCUT (21:40)
[2021-06-21] MEDS: cloNIDine HCL 0.1 MG TABLET PO (22:04)
[2021-06-22] MEDS: amLODIPine Besylate 10 MG TABLET PO (08:51)
[2021-06-22] MEDS: Thiamine HCL 100 MG TABLET PO (08:51)
[2021-06-22] MEDS: Gabapentin 100 MG CAPSULE 200 MG PO ×3 (08:52→21:13)
[2021-06-22] MEDS: Topiramate 100 MG TABLET PO ×2 (08:52→21:13)
[2021-06-22] MEDS: methADONE HCl 20 MG/2 ML ORAL.CONC 100 MG PO (08:52)
[2021-06-22] MEDS: QUEtiapine Fumarate 50 MG TABLET PO ×2 (08:52→21:13)
[2021-06-22] MEDS: Cyanocobalamin (Vitamin B-12) 100 MCG TABLET PO (08:52)
[2021-06-22] MEDS: cephALEXin 500 MG CAPSULE PO ×4 (08:52→21:13)
[2021-06-22] MEDS: Multivitamin TABLET 1 TAB PO (08:52)
[2021-06-22] MEDS: ARIPiprazole 5 MG TABLET 7.5 MG PO (08:52)
[2021-06-22] MEDS: lamoTRIgine 25 MG TABLET PO (08:52)
[2021-06-22 09:13] VITALS: BP 131/88; PULSE 67; RESP 16; TEMP 36.8; O2SAT 97
[2021-06-22] MEDS: QUEtiapine Fumarate 25 MG TABLET PO (11:18)
--- NOTE | 2021-06-22 12:09 | HO.PSYCHPN ---
Subjective Subjective Date of Service: 06/22/21 Reason For Visit: depression with SI, opiate use disorder-severe on Interim History: Melita remains in isolation due to COVID until 06/26/21. She complained of anxiety, but she is not using prn that are ordered, and was encouraged to do so. Review of Systems Review of Systems Yes all other systems are reviewed and are negative Constitutional: Reports as per HPI, Reports chills (denies), Reports fever(s) (denies chills) and Reports headache(s) Eyes: Reports as per HPI and Reports no additional eye complaints Reports system reviewed and no additional complaints, except as documented, Reports as per HPI, Reports headache(s), Denies nasal congestion, Reports nasal discharge (denies) and Reports sore throat Cardiovascular: Reports as per HPI, Denies chest pain and Denies dyspnea Respiratory: Reports as per HPI, Denies cough and Denies dyspnea Gastrointestinal: Reports as per HPI, Denies abdominal pain, Denies diarrhea and Denies vomiting Musculoskeletal: Reports no additional musculoskeletal complaints and Denies numbness Skin/Breast: Reports as per HPI and Denies rash Reports as per HPI, Reports headache(s), Denies focal weakness, Denies numbness and Denies Sensory deficit (Neuro) Psychiatric: Reports as per HPI, Reports anxiety, Reports depression, Reports difficulty concentrating, Reports hopelessness and Reports suicidal ideation Endocrine: Reports no additional endocrine complaints and Reports as per HPI Hematologic/Lymphatic: Reports no additional hematologic/lymphatic complaints, Reports as per HPI and Reports other (No peripheral edema) Mental Status Exam Mental Status Exam Narrative: Pt is alert and oriented; behavior is cooperative and calm; dressed in casual attire, disheveled and with poor adequate hygiene, numerous scratch karen/lessions on face; mood is described as OK and affect depressed, downcast;? eye contact appropriate; Speech is normal rate, volume and prosody and not pressured; no psychomotor agitation/retardation present; thought process is a little slowed but overall organized and goal directed; Thought content is on tx; otherwise pertinent to relevant topics and without any delusional content, paranoid ideations or grandiosity; denies any SI/HI. There is no evidence of perceptual disturbance. ?Patients insight and judgment are fair Patient Appearance: Appropriate Patient Orientation: Person, Place, Time and Situation Level of Consciousness: Alert Patient Behavior: Appropriate and Good Eye Contact Mood Description: Depressed and Anxious Affect Description: Flat Patient Cognition Impaired: No Ability to Follow Directions: Excellent Speech Pattern: Spontaneous Speech Memory Description: Intact Diagnostics Vital Signs (24Hr): Vital Signs - 24 hr 06/22/21 09:13 Temperature 98.2 F Pulse Rate 67 Respiratory Rate 16 Blood Pressure 131/88 Pulse Oximetry 97 BMI result Body Mass Index 20.2 Labs Results: 06/18/21 15:01 06/18/21 15:01 Labs: Laboratory Results - last 48 hr 06/20/21 19:46 Troponin I High Sens 8.1 D Imaging Radiology Impressions: ITS Impressions Chest X-Ray 06/20/21 20:55 IMPRESSION: Low inspiratory effort radiograph. No acute abnormality of the chest. Medications Medications Current Medications Acetaminophen (Acetaminophen 325 Mg Tablet) 650 mg PO Q6H PRN PRN Reason: Headache/Pain Mild Scale (1-3) Last Admin: 06/21/21 17:37 Dose: 650 mg Documented by: Al Hydroxide/Mg Hydroxide (Magnesium Hydrox/Alum Hydrox 30 Ml Oral.Susp) 30 ml PO Q6H PRN PRN Reason: Heartburn/Nausea Amlodipine Besylate (Amlodipine Besylate 10 Mg Tablet) 10 mg PO DAILY [facility]; Protocol Last Admin: 06/22/21 08:51 Dose: 10 mg Documented by: Aripiprazole (Aripiprazole 5 Mg Tablet) 7.5 mg PO DAILY [facility] [place] Last Admin: 06/22/21 08:52 Dose: 7.5 mg Documented by: Benzocaine (Throat Lozenge, Medicated Lozenge) 1 lozenge MUCOUS MEM Q2H PRN PRN Reason: Sore Throat Last Admin: 06/21/21 21:39 Dose: 1 lozenge Documented by: Cephalexin HCl (Cephalexin 500 Mg Capsule) 500 mg PO QID SOPHIE Stop: 06/24/21 23:55 Last Admin: 06/22/21 08:52 Dose: 500 mg Documented by: Clonidine HCl (Clonidine Hcl 0.1 Mg Tablet) 0.1 mg PO TID PRN; Protocol PRN Reason: Anxiety Last Admin: 06/21/21 22:04 Dose: 0.1 mg Documented by: Cyanocobalamin (Cyanocobalamin (Vitamin B-12) 100 Mcg Tablet) 100 mcg PO DAILY [facility] Last Admin: 06/22/21 08:52 Dose: 100 mcg Documented by: Doxycycline Hyclate (Doxycycline Hyclate 100 Mg Tablet) 100 mg PO BID [facility] Last Admin: 06/22/21 08:52 Dose: 100 mg Documented by: Enoxaparin Sodium (Enoxaparin Sodium 40 Mg/0.4 Ml Syringe) 40 mg SUBCUT Q24H [facility] Last Admin: 06/21/21 21:40 Dose: 40 mg Documented by: Gabapentin (Gabapentin 100 Mg Capsule) 200 mg PO TID [facility] [place] Last Admin: 06/22/21 08:52 Dose: 200 mg Documented by: Hydroxyzine HCl (Hydroxyzine Hcl 50 Mg Tablet) 50 mg PO Q6H PRN PRN Reason: Anxiety Last Admin: 06/21/21 17:38 Dose: 50 mg Documented by: Lamotrigine (Lamotrigine 25 Mg Tablet) 25 mg PO DAILY [facility] [place] Last Admin: 06/22/21 08:52 Dose: 25 mg Documented by: Magnesium Hydroxide (Milk Of Magnesia 30 Ml Oral.Susp) 30 ml PO DAILY PRN PRN Reason: Constipation Methadone HCl (Methadone Hcl 20 Mg/2 Ml Oral.Conc) 100 mg PO DAILY [facility] [place] Last Admin: 06/22/21 08:52 Dose: 100 mg Documented by: Mirtazapine (Mirtazapine 7.5 Mg Tablet) 7.5 mg PO BEDTIME MRX1 [facility] [place] Last Admin: 06/21/21 23:30 Dose: Not Given Documented by: Multi-Ingred Medicated Throat [place] (Throat [place], Medicated 20 Ml Bottle) 1 spray MUCOUS MEM Q2H PRN PRN Reason: Sore Throat Multivitamins/Vitamin C (Multivitamin Tablet) 1 tab PO DAILY [facility] [place] Last Admin: 06/22/21 08:52 Dose: 1 tab Documented by: Nicotine (Nicotine 21 Mg Patch.Td24) 21 mg TRANSDERMA DAILY [facility] [place] Last Admin: 06/22/21 09:31 Dose: Not Given Documented by: Pharmacy Consult (Consult Rx Perform Med Rec) 1 each MISCELLANE ONCE PRN PRN Reason: Consult order Prazosin HCl (Prazosin Hcl 1 Mg Capsule) 1 mg PO BEDTIME [facility] [place]; Protocol Last Admin: 06/21/21 21:40 Dose: 1 mg Documented by: Quetiapine Fumarate (Quetiapine Fumarate 300 Mg Tablet) 300 mg PO BEDTIME [facility] [place] Last Admin: 06/21/21 21:39 Dose: 300 mg Documented by: Quetiapine Fumarate (Quetiapine Fumarate 25 Mg Tablet) 25 mg PO BID PRN PRN Reason: anxiety Last Admin: 06/22/21 11:18 Dose: 25 mg Documented by: Quetiapine Fumarate (Quetiapine Fumarate 50 Mg Tablet) 50 mg PO BID [facility] [place] Last Admin: 06/22/21 08:52 Dose: 50 mg Documented by: Thiamine HCl (Thiamine Hcl 100 Mg Tablet) 100 mg PO DAILY [facility] [place] Last Admin: 06/22/21 08:51 Dose: 100 mg Documented by: Topiramate (Topiramate 100 Mg Tablet) 100 mg PO BID [facility] [place] Last Admin: 06/22/21 08:52 Dose: 100 mg Documented by: Allergies Allergies Allergy/AdvReac Type Severity Reaction Status Date / Time bee pollen [BEE STINGS] Allergy Severe Anaphylaxis Verified 02/27/21 06:54 codeine [CODEINE] Allergy Severe ANAPHYLAXIS Verified 02/27/21 06:54 Iodinated Contrast Media Allergy Severe DIFFICULTY Verified 02/27/21 06:54 [IV DYE, IODINE CONTAINING BREATHING CONTRAST ] nut - unspecified [nut] Allergy Intermediate Rash Verified 02/27/21 06:54 shellfish derived Allergy Intermediate Rash Verified 02/27/21 06:54 Sulfa (Sulfonamide Allergy Unknown ANAPHYLAXIS Verified 02/27/21 06:54 Antibiotics) [SULFA (SULFONAMIDE ANTIBIOTICS)] Assessment & Plan Assessment & Plan (1) MDD (major depressive disorder), recurrent episode, moderate: Status: Acute Code(s): F33.1 - Major depressive disorder, recurrent, moderate (2) PTSD (post-traumatic stress disorder): Status: Acute Code(s): F43.10 - Post-traumatic stress disorder, unspecified (3) Antiphospholipid antibody syndrome: Status: Acute Code(s): D68.61 - Antiphospholipid syndrome (4) Antiphospholipid antibody positive: Status: Acute Code(s): R76.0 - Raised antibody titer (5) UTI (urinary tract infection): Status: Acute Code(s): N39.0 - Urinary tract infection, site not specified (6) Cellulitis and abscess of left lower extremity: Status: Acute Code(s): L03.116 - Cellulitis of left lower limb; L02.416 - Cutaneous abscess of left lower limb (7) Hypertension: Status: Acute Code(s): I10 - Essential (primary) hypertension (8) Opioid use disorder, severe, dependence: Status: Acute Code(s): F11.20 - Opioid dependence, uncomplicated (9) Cocaine use disorder: Status: Acute Code(s): F14.10 - Cocaine abuse, uncomplicated Assessment and Plan: IMPRESSION: 40-year-old female with a past medical history of IV drug abuse, PTSD, Bipolar disorder, antiphospholipid syndrome complicated by CVA, multiple DVT/PE status post IVC filter, HTN, CKD stage III, hep C. (r/o HERSON). Patient presents after recent discharge from [facility] this past May 2021 in the face of a relapse, overwhelming anxiety, depression and then suicidal ideation with thoughts to overdose. Patient reports she has been adherent with her medication regimen, which she knows by names and doses. Patient brought to ED by friend. Patient reports that suicidality was sudden and the thought impulsive. She denies any preceding intent or plans and reports that SI has now resolved. Patient said she feels she probably needs an aftercare program to help stabilize longer-term. Patient denies any AVH and does not know why that was mentioned. Patient was found to be COVID positive on admission; also with cellulitis on left lower leg and UTI started on antibiotics. -admit for safety and stabilization 06/20 patient reports depression remains but SI remains fully resolved. She would like to restart Lamictal which she says was very helpful in the past for both mood and PTSD symptoms. Patient reports some chest pain on inhalation only but denies any other symptoms; she will alert staff if anything changes; O2 sat within normal limits and patient afebrile. Bulk Fluids Handler will consult hospitalist to see if there is any other recommendations given patient's report. -regarding patient's antiphospholipid syndrome and theoretical increased risk for clotting while COVID positive, Bulk Fluids Handler called and discussed case with Dr. Casiano, scallop raker/oncologist who explained current recommendations and recommends continuing patient on home dose of enoxaparin without need to increase dose or add another anticoagulant either during admission or post discharge. 06/22/21 - Encourage to use prns. No other changes. PLAN: CV Q 15 minute checks for safety COVID positive: -Currently in isolation room -reports some chest pain on inhalation only; denies any other symptoms -vitals WNL Depression/AnxietyPTSD/substance abuse: START Lamictal 25mg; titrate according to recommended schedule for PTSD and mood stability; patient has been on in the past and reports was helpful Abilify a 7.5 mg daily Clonidine 0.1 mg t.i.d. p.r.n. Hydroxyzine 50 mg q.6 p.r.n. Methadone Prazosin 1 mg q.h.s. Seroquel 300 mg q.h.s. Seroquel 25 mg b.i.d. p.r.n. for anxiety Topamax 100 mg b.i.d. for mood and headache (normally 200mg BiD but in Apr 2021, decreased to 100 mg BID at [facility] [place] due to GERRI) -Patient is asking for program post discharge; SW will review options Lower left limb Cellulitis and UTI (MRSA UTI and MRSA/MSSA Cellulitis) Doxycycline 100 mg b.i.d. for 7 days Keflex 500 mg q.i.d. for 7 days -case discussed with ED physician Dr. Jaffe who recommends above regimen (MRSA grown in urine) Rule out: HERSON NO Seizure disorder: Patient explains history and denies any history of seizure at all other than 1 time when she was 14 years old following of vasculitis/stroke. -She was seen at [facility] [place] on 03/14/21 and started on keppra 750 mg BID for seizures but has been non-adherent with medication since relapse. -had been on dilantin for seizures, which had been stopped for about 10 yrs due to not having any seizures. -Pt reports last had a seizure in Apr 2021; however denies being diagnosed with epilepsy or pseudoseizures, not sure how long they last but they are tonic/clonic in nature, sometimes has an aura and remember them, she does not have a current neurologist.? Antiphospholipid syndrome: -Enoxaparin -will consult hospitalist to see if COVID + status increases risk for blood clots and potential need for additional anticoagulation Hypertension: Amlodipine Past hx recorded on 05/09/21 admission note: -fall 2020 admitted to the [facility] for MRSA bacteremia/bilateral empyema status post chest tube placement; subsequently chest tube was removed; echocardiogram done which showed no evidence of vegetations, MRI of the lumbar spine with no evidence of epidural abscess; and sent to rehab via to finish antibiotics via Port-A-Cath until 02/13/2021; pt left AMA -admitted to [facility] on 02/14/21 due to sepsis, aspiration pneumonia as well as fungemia; discharged to [facility] in [place] on lovenox, as she preferred this to warfarin. -She was recently seen at [facility] [place] on 03/14/21 and started on keppra 750 mg BID for seizures but has been non-adherent with medication since relapse. -had been on dilantin for seizures, which had been stopped for about 10 yrs due to not having any seizures. -Pt reports last had a seizure in Apr 2021; however denies being diagnosed with epilepsy or pseudoseizures, not sure how long they last but they are tonic/clonic in nature, sometimes has an aura and remember them, she does not have a current neurologist.? -was on anticoagulation and 2014; anticoagulation was discontinued post menorrhagia in 2014 and reportedly has not had any blood clots since then; 06/21/21 Pt reporting sore throat, anxiety, depression. 1. Throat culture, throat spray, drops for discomfort 2. Seroquel 50 mg bid to assist with anxiety mgt during Lamictal titration 3. Remeron 7.5 mg HS MRX1 during Lamictal titration I spent minutes with the patient and/or on the patient floor today, greater than?50% of which was spent counseling/coordinating care. Reason for contiued inpatient stay Substantial Risk for: rapid decompensation
[2021-06-22] MEDS: Throat Lozenge, Medicated LOZENGE 1 LOZENGE MUCOUS MEM (16:19)
[2021-06-22 18:00] VITALS: BP 104/67; PULSE 62; RESP 16; TEMP 36.3; O2SAT 97
[2021-06-22] MEDS: QUEtiapine Fumarate 300 MG TABLET PO (21:13)
[2021-06-22] MEDS: Prazosin HCL 1 MG CAPSULE PO (21:13)
[2021-06-22] MEDS: Mirtazapine 7.5 MG TABLET PO (21:13)
[2021-06-22] MEDS: cloNIDine HCL 0.1 MG TABLET PO (21:13)
[2021-06-22] MEDS: Enoxaparin Sodium 40 MG/0.4 ML SYRINGE SUBCUT (21:40)
[2021-06-23] MEDS: Multivitamin TABLET 1 TAB PO (08:23)
[2021-06-23] MEDS: QUEtiapine Fumarate 50 MG TABLET PO ×2 (08:23→21:37)
[2021-06-23] MEDS: lamoTRIgine 25 MG TABLET PO (08:23)
[2021-06-23] MEDS: Thiamine HCL 100 MG TABLET PO (08:23)
[2021-06-23] MEDS: cephALEXin 500 MG CAPSULE PO ×4 (08:23→21:37)
[2021-06-23] MEDS: Cyanocobalamin (Vitamin B-12) 100 MCG TABLET PO (08:23)
[2021-06-23] MEDS: amLODIPine Besylate 10 MG TABLET PO (08:23)
[2021-06-23] MEDS: ARIPiprazole 5 MG TABLET 7.5 MG PO (08:23)
[2021-06-23] MEDS: Topiramate 100 MG TABLET PO ×2 (08:24→21:38)
[2021-06-23] MEDS: Gabapentin 100 MG CAPSULE 200 MG PO ×3 (08:24→21:38)
[2021-06-23] MEDS: methADONE HCl 20 MG/2 ML ORAL.CONC 100 MG PO (08:24)
[2021-06-23 08:37] VITALS: BP 124/73; PULSE 59; RESP 16; TEMP 36.4; O2SAT 96
[2021-06-23] MEDS: cloNIDine HCL 0.1 MG TABLET PO ×2 (14:00→18:15)
[2021-06-23 14:01] VITALS: BP 127/74; PULSE 65
--- NOTE | 2021-06-23 18:16 | P.PNPSI_ITS ---
Subjective Subjective Date of Service: 06/23/21 Reason For Visit: depression with SI, opiate use disorder-severe on Subjective Notes: Conditional Voluntary Interim History: Melita remains in isolation due to COVID until 06/26/21. She complained of anxiety, but she is not using prn that are ordered, and was encouraged to do so. She was feeling physically run down and unwell today. The symptoms are consistent with COVID and there is no acute issue. Review of Systems Review of Systems Yes all other systems are reviewed and are negative Constitutional: Reports as per HPI, Reports chills (denies), Reports fever(s) (denies chills) and Reports headache(s) Eyes: Reports as per HPI and Reports no additional eye complaints Reports system reviewed and no additional complaints, except as documented, Reports as per HPI, Reports headache(s), Denies nasal congestion, Reports nasal discharge (denies) and Reports sore throat Cardiovascular: Reports as per HPI, Denies chest pain and Denies dyspnea Respiratory: Reports as per HPI, Denies cough and Denies dyspnea Gastrointestinal: Reports as per HPI, Denies abdominal pain, Denies diarrhea and Denies vomiting Musculoskeletal: Reports no additional musculoskeletal complaints and Denies numbness Skin/Breast: Reports as per HPI and Denies rash Reports as per HPI, Reports headache(s), Denies focal weakness, Denies numbness and Denies Sensory deficit (Neuro) Psychiatric: Reports as per HPI, Reports anxiety, Reports depression, Reports difficulty concentrating, Reports hopelessness and Reports suicidal ideation Endocrine: Reports no additional endocrine complaints and Reports as per HPI Hematologic/Lymphatic: Reports no additional hematologic/lymphatic complaints, Reports as per HPI and Reports other (No peripheral edema) Mental Status Exam Mental Status Exam Narrative: Pt is alert and oriented; behavior is cooperative and calm; dressed in casual attire, disheveled and with poor adequate hygiene, numerous scratch karen/lessions on face; mood is described as OK and affect depressed, downcast;? eye contact appropriate; Speech is normal rate, volume and prosody and not pressured; no psychomotor agitation/retardation present; thought process is a little slowed but overall organized and goal directed; Thought content is on tx; otherwise pertinent to relevant topics and without any delusional content, paranoid ideations or grandiosity; denies any SI/HI. There is no evidence of perceptual disturbance. ?Patients insight and judgment are fair Patient Appearance: Appropriate Patient Orientation: Person, Place, Time and Situation Level of Consciousness: Alert Patient Behavior: Appropriate and Good Eye Contact Mood Description: Depressed and Anxious Affect Description: Flat Patient Cognition Impaired: No Ability to Follow Directions: Excellent Speech Pattern: Spontaneous Speech Memory Description: Intact Diagnostics Vital Signs (24Hr): Vital Signs - 24 hr 06/23/21 08:37 06/23/21 14:01 Temperature 97.6 F Pulse Rate 59 65 Respiratory Rate 16 Blood Pressure 124/73 127/74 Pulse Oximetry 96 BMI result Body Mass Index 20.2 Labs Results: 06/18/21 15:01 06/18/21 15:01 Imaging Radiology Impressions: ITS Impressions Chest X-Ray 06/20/21 20:55 IMPRESSION: Low inspiratory effort radiograph. No acute abnormality of the chest. Medications Medications Current Medications Acetaminophen (Acetaminophen 325 Mg Tablet) 650 mg PO Q6H PRN PRN Reason: Headache/Pain Mild Scale (1-3) Last Admin: 06/21/21 17:37 Dose: 650 mg Documented by: Al Hydroxide/Mg Hydroxide (Magnesium Hydrox/Alum Hydrox 30 Ml Oral.Susp) 30 ml PO Q6H PRN PRN Reason: Heartburn/Nausea Amlodipine Besylate (Amlodipine Besylate 10 Mg Tablet) 10 mg PO DAILY [facility]; Protocol Last Admin: 06/23/21 08:23 Dose: 10 mg Documented by: Aripiprazole (Aripiprazole 5 Mg Tablet) 7.5 mg PO DAILY [facility] Last Admin: 06/23/21 08:23 Dose: 7.5 mg Documented by: Benzocaine (Throat Lozenge, Medicated Lozenge) 1 lozenge MUCOUS MEM Q2H PRN PRN Reason: Sore Throat Last Admin: 06/22/21 16:19 Dose: 1 lozenge Documented by: Cephalexin HCl (Cephalexin 500 Mg Capsule) 500 mg PO QID SOPHIE Stop: 06/24/21 23:55 Last Admin: 06/23/21 14:00 Dose: 500 mg Documented by: Clonidine HCl (Clonidine Hcl 0.1 Mg Tablet) 0.1 mg PO TID PRN; Protocol PRN Reason: Anxiety Last Admin: 06/23/21 14:00 Dose: 0.1 mg Documented by: Cyanocobalamin (Cyanocobalamin (Vitamin B-12) 100 Mcg Tablet) 100 mcg PO DAILY [facility] Last Admin: 06/23/21 08:23 Dose: 100 mcg Documented by: Doxycycline Hyclate (Doxycycline Hyclate 100 Mg Tablet) 100 mg PO BID [facility] Last Admin: 06/23/21 08:23 Dose: 100 mg Documented by: Enoxaparin Sodium (Enoxaparin Sodium 40 Mg/0.4 Ml Syringe) 40 mg SUBCUT Q24H [facility] Last Admin: 06/22/21 21:40 Dose: 40 mg Documented by: Gabapentin (Gabapentin 100 Mg Capsule) 200 mg PO TID [facility] Last Admin: 06/23/21 14:00 Dose: 200 mg Documented by: Hydroxyzine HCl (Hydroxyzine Hcl 50 Mg Tablet) 50 mg PO Q6H PRN PRN Reason: Anxiety Last Admin: 06/21/21 17:38 Dose: 50 mg Documented by: Lamotrigine (Lamotrigine 25 Mg Tablet) 25 mg PO DAILY [facility] Last Admin: 06/23/21 08:23 Dose: 25 mg Documented by: Magnesium Hydroxide (Milk Of Magnesia 30 Ml Oral.Susp) 30 ml PO DAILY PRN PRN Reason: Constipation Methadone HCl (Methadone Hcl 20 Mg/2 Ml Oral.Conc) 100 mg PO DAILY [facility] Last Admin: 06/23/21 08:24 Dose: 100 mg Documented by: Mirtazapine (Mirtazapine 7.5 Mg Tablet) 7.5 mg PO BEDTIME MRX1 [facility] Last Admin: 06/22/21 21:48 Dose: Not Given Documented by: Multi-Ingred Medicated Throat Ashton (Throat Ashton, Medicated 20 Ml Bottle) 1 spray MUCOUS MEM Q2H PRN PRN Reason: Sore Throat Multivitamins/Vitamin C (Multivitamin Tablet) 1 tab PO DAILY [facility] Last Admin: 06/23/21 08:23 Dose: 1 tab Documented by: Nicotine (Nicotine 21 Mg Patch.Td24) 21 mg TRANSDERMA DAILY [facility] Last Admin: 06/23/21 08:24 Dose: Not Given Documented by: Pharmacy Consult (Consult Rx Perform Med Rec) 1 each MISCELLANE ONCE PRN PRN Reason: Consult order Prazosin HCl (Prazosin Hcl 1 Mg Capsule) 1 mg PO BEDTIME [facility]; Protocol Last Admin: 06/22/21 21:13 Dose: 1 mg Documented by: Quetiapine Fumarate (Quetiapine Fumarate 300 Mg Tablet) 300 mg PO BEDTIME [facility] Last Admin: 06/22/21 21:13 Dose: 300 mg Documented by: Quetiapine Fumarate (Quetiapine Fumarate 25 Mg Tablet) 25 mg PO BID PRN PRN Reason: anxiety Last Admin: 06/22/21 11:18 Dose: 25 mg Documented by: Quetiapine Fumarate (Quetiapine Fumarate 50 Mg Tablet) 50 mg PO BID [facility] Last Admin: 06/23/21 08:23 Dose: 50 mg Documented by: Thiamine HCl (Thiamine Hcl 100 Mg Tablet) 100 mg PO DAILY [facility] Last Admin: 06/23/21 08:23 Dose: 100 mg Documented by: Topiramate (Topiramate 100 Mg Tablet) 100 mg PO BID [facility] Last Admin: 06/23/21 08:24 Dose: 100 mg Documented by: Allergies Allergies Allergy/AdvReac Type Severity Reaction Status Date / Time bee pollen [BEE STINGS] Allergy Severe Anaphylaxis Verified 02/27/21 06:54 codeine [CODEINE] Allergy Severe ANAPHYLAXIS Verified 02/27/21 06:54 Iodinated Contrast Media Allergy Severe DIFFICULTY Verified 02/27/21 06:54 [IV DYE, IODINE CONTAINING BREATHING CONTRAST ] nut - unspecified [nut] Allergy Intermediate Rash Verified 02/27/21 06:54 shellfish derived Allergy Intermediate Rash Verified 02/27/21 06:54 Sulfa (Sulfonamide Allergy Unknown ANAPHYLAXIS Verified 02/27/21 06:54 Antibiotics) [SULFA (SULFONAMIDE ANTIBIOTICS)] Assessment & Plan Assessment & Plan (1) MDD (major depressive disorder), recurrent episode, moderate: Status: Acute Code(s): F33.1 - Major depressive disorder, recurrent, moderate (2) PTSD (post-traumatic stress disorder): Status: Acute Code(s): F43.10 - Post-traumatic stress disorder, unspecified (3) Antiphospholipid antibody syndrome: Status: Acute Code(s): D68.61 - Antiphospholipid syndrome (4) Antiphospholipid antibody positive: Status: Acute Code(s): R76.0 - Raised antibody titer (5) UTI (urinary tract infection): Status: Acute Code(s): N39.0 - Urinary tract infection, site not specified (6) Cellulitis and abscess of left lower extremity: Status: Acute Code(s): L03.116 - Cellulitis of left lower limb; L02.416 - Cutaneous abscess of left lower limb (7) Hypertension: Status: Acute Code(s): I10 - Essential (primary) hypertension (8) Opioid use disorder, severe, dependence: Status: Acute Code(s): F11.20 - Opioid dependence, uncomplicated (9) Cocaine use disorder: Status: Acute Code(s): F14.10 - Cocaine abuse, uncomplicated Assessment and Plan: IMPRESSION: 40-year-old female with a past medical history of IV drug abuse, PTSD, Bipolar disorder, antiphospholipid syndrome complicated by CVA, multiple DVT/PE status post IVC filter, HTN, CKD stage III, hep C. (r/o HERSON). Patient presents after recent discharge from [facility] this past May 2021 in the face of a relapse, overwhelming anxiety, depression and then suicidal ideation with thoughts to overdose. Patient reports she has been adherent with her medication regimen, which she knows by names and doses. Patient brought to ED by friend. Patient reports that suicidality was sudden and the thought impulsive. She denies any preceding intent or plans and reports that SI has now resolved. Patient said she feels she probably needs an aftercare program to help stabilize longer-term. Patient denies any AVH and does not know why that was mentioned. Patient was found to be COVID positive on admission; also with cellulitis on left lower leg and UTI started on antibiotics. -admit for safety and stabilization 06/20 patient reports depression remains but SI remains fully resolved. She would like to restart Lamictal which she says was very helpful in the past for both mood and PTSD symptoms. Patient reports some chest pain on inhalation only but denies any other symptoms; she will alert staff if anything changes; O2 sat within normal limits and patient afebrile. Director [employer] will consult hospitalist to see if there is any other recommendations given patient's report. -regarding patient's antiphospholipid syndrome and theoretical increased risk for clotting while COVID positive, Director [employer] called and discussed case with Dr. Casiano, roof bolter/oncologist who explained current recommendations and recommends continuing patient on home dose of enoxaparin without need to increase dose or add another anticoagulant either during admission or post discharge. 06/22/21 - Encourage to use prns. No other changes. 06/23/21 - Continue treatment plan without change PLAN: CV Q 15 minute checks for safety COVID positive: -Currently in isolation room -reports some chest pain on inhalation only; denies any other symptoms -vitals WNL Depression/AnxietyPTSD/substance abuse: START Lamictal 25mg; titrate according to recommended schedule for PTSD and mood stability; patient has been on in the past and reports was helpful Abilify a 7.5 mg daily Clonidine 0.1 mg t.i.d. p.r.n. Hydroxyzine 50 mg q.6 p.r.n. Methadone Prazosin 1 mg q.h.s. Seroquel 300 mg q.h.s. Seroquel 25 mg b.i.d. p.r.n. for anxiety Topamax 100 mg b.i.d. for mood and headache (normally 200mg BiD but in Apr 2021, decreased to 100 mg BID at [facility] due to GERRI) -Patient is asking for program post discharge; SW will review options Lower left limb Cellulitis and UTI (MRSA UTI and MRSA/MSSA Cellulitis) Doxycycline 100 mg b.i.d. for 7 days Keflex 500 mg q.i.d. for 7 days -case discussed with ED physician Dr. Jaffe who recommends above regimen (MRSA grown in urine) Rule out: HERSON NO Seizure disorder: Patient explains history and denies any history of seizure at all other than 1 time when she was 14 years old following of v asculitis/stroke. -She was seen at [facility] on 03/14[place] and started on keppra 750 mg BID for seiz ures but has been non-adherent with medication since relapse. -had been on dilantin for seizures, which had been stopped for about 10 yrs due to not having any seizures. -Pt reports last had a seizure in Apr 2021; however denies being diagnosed with epilepsy or pseudoseizures, not sure how long they last but they are tonic/clonic in nature, sometimes has an aura and remember them, she does not have a current neurologist.? Antiphospholipid syndrome: -Enoxaparin -will consult hospitalist to see if COVID + status increases risk for blood clots and potential need for additional anticoagulation Hypertension: Amlodipine Past hx recorded on 05/09/21 admission note: -fall 2020 admitted to [facility] for MRSA bacteremia/bilateral empyema status post chest tube placement; subsequently chest tube was removed; echocardiogram done which showed no evidence of vegetations, MRI of the lumbar spine with no evidence of epidural abscess; and sent to rehab via to finish antibiotics via Port-A-Cath until 02/13/2021; pt left AMA -admitted to [facility] on 02/14/21 due to sepsis, aspiration pneumonia as well as fungemia; discharged to [facility] in [place] on lovenox, as she preferred this to warfarin. -She was recently seen [place] [facility] [place] and started on keppra 750 mg BID for seizures but has been non-adherent with medication since relapse. -had been on dilantin for seizures, which had been stopped for about 10 yrs due to not having any seizures. -Pt reports last had a seizure in Apr 2021; however denies being diagnosed with epilepsy or pseudoseizures, not sure how long they last but they are tonic/clonic in nature, sometimes has an aura and remember them, she does not have a current neurologist.? -was on anticoagulation and 2015; anticoagulation was discontinued post menorrhagia in 2014 and reportedly has not had any blood clots since then; 06/21/21 Pt reporting sore throat, anxiety, depression. 1. Throat culture, throat spray, drops for discomfort 2. Seroquel 50 mg bid to assist with anxiety mgt during Lamictal titration 3. Remeron 7.5 mg HS MRX1 during Lamictal titration I spent minutes with the patient and/or on the patient floor today, great er than?50% of which was spent counseling/coordinating care. Patient educated on: medication risk/benefits Informed Consent: further education needed Reason for contiued inpatient stay Substantial Risk for: rapid decompensation
[2021-06-23 18:26] VITALS: BP 115/63; PULSE 59; RESP 16; TEMP 36.5; O2SAT 100
[2021-06-23] MEDS: Mirtazapine 7.5 MG TABLET PO (21:37)
[2021-06-23] MEDS: QUEtiapine Fumarate 300 MG TABLET PO (21:38)
[2021-06-23] MEDS: Enoxaparin Sodium 40 MG/0.4 ML SYRINGE SUBCUT (21:38)
[2021-06-23] MEDS: Prazosin HCL 1 MG CAPSULE PO (21:38)
[2021-06-24 06:00] VITALS: BP 112/66; PULSE 58; RESP 14; TEMP 37.1; O2SAT 98
[2021-06-24] MEDS: methADONE HCl 20 MG/2 ML ORAL.CONC 100 MG PO (10:42)
[2021-06-24] MEDS: ARIPiprazole 5 MG TABLET 7.5 MG PO (10:43)
[2021-06-24] MEDS: Cyanocobalamin (Vitamin B-12) 100 MCG TABLET PO (10:43)
[2021-06-24] MEDS: Multivitamin TABLET 1 TAB PO (10:43)
[2021-06-24] MEDS: lamoTRIgine 25 MG TABLET PO (10:44)
[2021-06-24] MEDS: cephALEXin 500 MG CAPSULE PO ×4 (10:44→19:46)
[2021-06-24] MEDS: Gabapentin 100 MG CAPSULE 200 MG PO ×3 (10:44→19:47)
[2021-06-24] MEDS: QUEtiapine Fumarate 50 MG TABLET PO ×2 (10:44→19:46)
[2021-06-24] MEDS: Thiamine HCL 100 MG TABLET PO (10:44)
[2021-06-24] MEDS: amLODIPine Besylate 10 MG TABLET PO (10:44)
[2021-06-24] MEDS: Topiramate 100 MG TABLET PO ×2 (10:44→19:46)
[2021-06-24] MEDS: cloNIDine HCL 0.1 MG TABLET PO (10:59)
--- NOTE | 2021-06-24 12:23 | P.PNPSI_ITS ---
Subjective Subjective Date of Service: 06/24/21 Reason For Visit: depression with SI, opiate use disorder-severe on Subjective Notes: Conditional Voluntary Interim History: Melita remains in isolation due to COVID until 06/26/21. Pt reports sleeping and eating well. She continues to report main concern is anxiety, but as noted before pt has to request PRN medications. Pt denies SI/HI. She denies cough, no fever, VS stable, no SOB. Pt not sure about aftercare plan. Medication Compliance: Yes Review of Systems Review of Systems Yes all other systems are reviewed and are negative Constitutional: Reports as per HPI, Reports chills (denies), Reports fever(s) (denies chills) and Reports headache(s) Eyes: Reports as per HPI and Reports no additional eye complaints Reports system reviewed and no additional complaints, except as documented, Reports as per HPI, Reports headache(s), Denies nasal congestion, Reports nasal discharge (denies) and Reports sore throat Cardiovascular: Reports as per HPI, Denies chest pain and Denies dyspnea Respiratory: Reports as per HPI, Denies cough and Denies dyspnea Gastrointestinal: Reports as per HPI, Denies abdominal pain, Denies diarrhea and Denies vomiting Musculoskeletal: Reports no additional musculoskeletal complaints and Denies numbness Skin/Breast: Reports as per HPI and Denies rash Reports as per HPI, Reports headache(s), Denies focal weakness, Denies numbness and Denies Sensory deficit (Neuro) Psychiatric: Reports as per HPI, Reports anxiety, Reports depression, Reports difficulty concentrating, Reports hopelessness and Reports suicidal ideation Endocrine: Reports no additional endocrine complaints and Reports as per HPI Hematologic/Lymphatic: Reports no additional hematologic/lymphatic complaints, Reports as per HPI and Reports other (No peripheral edema) Mental Status Exam Mental Status Exam Narrative: Pt is alert and oriented; behavior is cooperative and calm; dressed in casual attire, disheveled and with poor adequate hygiene, numerous scratch karen/lessions on face; mood is described as OK and affect depressed, downcast;? eye contact appropriate; Speech is normal rate, volume and prosody and not pressured; no psychomotor agitation/retardation present; thought process is a little slowed but overall organized and goal directed; Thought content is on tx; otherwise pertinent to relevant topics and without any delusional content, paranoid ideations or grandiosity; denies any SI/HI. There is no evidence of perceptual disturbance. ?Patients insight and judgment are fair Diagnostics Vital Signs (24Hr): Vital Signs - 24 hr 06/24/21 16:40 Pulse Rate 49 L Blood Pressure 102/68 BMI result Body Mass Index 20.2 Labs Results: 06/18/21 15:01 06/18/21 15:01 Imaging Radiology Impressions: ITS Impressions Chest X-Ray 06/20/21 20:55 IMPRESSION: Low inspiratory effort radiograph. No acute abnormality of the chest. Medications Medications Current Medications Acetaminophen (Acetaminophen 325 Mg Tablet) 650 mg PO Q6H PRN PRN Reason: Headache/Pain Mild Scale (1-3) Last Admin: 06/25/21 08:15 Dose: 650 mg Documented by: Al Hydroxide/Mg Hydroxide (Magnesium Hydrox/Alum Hydrox 30 Ml Oral.Susp) 30 ml PO Q6H PRN PRN Reason: Heartburn/Nausea Amlodipine Besylate (Amlodipine Besylate 10 Mg Tablet) 10 mg PO DAILY [facility]; Protocol Last Admin: 06/24/21 10:44 Dose: 10 mg Documented by: Aripiprazole (Aripiprazole 5 Mg Tablet) 7.5 mg PO DAILY [facility] Last Admin: 06/24/21 10:43 Dose: 7.5 mg Documented by: Benzocaine (Throat Lozenge, Medicated Lozenge) 1 lozenge MUCOUS MEM Q2H PRN PRN Reason: Sore Throat Last Admin: 06/22/21 16:19 Dose: 1 lozenge Documented by: Clonidine HCl (Clonidine Hcl 0.1 Mg Tablet) 0.1 mg PO TID PRN; Protocol PRN Reason: Anxiety Last Admin: 06/24/21 10:59 Dose: 0.1 mg Documented by: Cyanocobalamin (Cyanocobalamin (Vitamin B-12) 100 Mcg Tablet) 100 mcg PO DAILY [facility] Last Admin: 06/24/21 10:43 Dose: 100 mcg Documented by: Doxycycline Hyclate (Doxycycline Hyclate 100 Mg Tablet) 100 mg PO BID [facility] Last Admin: 06/24/21 19:46 Dose: 100 mg Documented by: Enoxaparin Sodium (Enoxaparin Sodium 40 Mg/0.4 Ml Syringe) 40 mg SUBCUT Q24H [facility] Last Admin: 06/24/21 19:51 Dose: 40 mg Documented by: Gabapentin (Gabapentin 100 Mg Capsule) 200 mg PO TID [facility] Last Admin: 06/24/21 19:47 Dose: 200 mg Documented by: Hydroxyzine HCl (Hydroxyzine Hcl 50 Mg Tablet) 50 mg PO Q6H PRN PRN Reason: Anxiety Last Admin: 06/24/21 15:16 Dose: 50 mg Documented by: Lamotrigine (Lamotrigine 25 Mg Tablet) 25 mg PO DAILY [facility] Last Admin: 06/24/21 10:44 Dose: 25 mg Documented by: Magnesium Hydroxide (Milk Of Magnesia 30 Ml Oral.Susp) 30 ml PO DAILY PRN PRN Reason: Constipation Methadone HCl (Methadone Hcl 20 Mg/2 Ml Oral.Conc) 100 mg PO DAILY [facility] Last Admin: 06/24/21 10:42 Dose: 100 mg Documented by: Mirtazapine (Mirtazapine 7.5 Mg Tablet) 7.5 mg PO BEDTIME MRX1 [facility] Last Admin: 06/24/21 20:48 Dose: Not Given Documented by: Multi-Ingred Medicated Throat [place] (Throat [place], Medicated 20 Ml Bottle) 1 spray MUCOUS MEM Q2H PRN PRN Reason: Sore Throat Multivitamins/Vitamin C (Multivitamin Tablet) 1 tab PO DAILY [facility] Last Admin: 06/24/21 10:43 Dose: 1 tab Documented by: Nicotine (Nicotine 21 Mg Patch.Td24) 21 mg TRANSDERMA DAILY [facility] Last Admin: 06/24/21 11:01 Dose: Not Given Documented by: Pharmacy Consult (Consult Rx Perform Med Rec) 1 each MISCELLANE ONCE PRN PRN Reason: Consult order Prazosin HCl (Prazosin Hcl 1 Mg Capsule) 1 mg PO BEDTIME [facility]; Protocol Last Admin: 06/24/21 19:46 Dose: 1 mg Documented by: Quetiapine Fumarate (Quetiapine Fumarate 300 Mg Tablet) 300 mg PO BEDTIME [facility] Last Admin: 06/24/21 19:47 Dose: 300 mg Documented by: Quetiapine Fumarate (Quetiapine Fumarate 25 Mg Tablet) 25 mg PO BID PRN PRN Reason: anxiety Last Admin: 06/22/21 11:18 Dose: 25 mg Documented by: Quetiapine Fumarate (Quetiapine Fumarate 50 Mg Tablet) 50 mg PO BID [facility] Last Admin: 06/24/21 19:46 Dose: 50 mg Documented by: Thiamine HCl (Thiamine Hcl 100 Mg Tablet) 100 mg PO DAILY [facility] Last Admin: 06/24/21 10:44 Dose: 100 mg Documented by: Topiramate (Topiramate 100 Mg Tablet) 100 mg PO BID [facility] Last Admin: 06/24/21 19:46 Dose: 100 mg Documented by: Allergies Allergies Allergy/AdvReac Type Severity Reaction Status Date / Time bee pollen [BEE STINGS] Allergy Severe Anaphylaxis Verified 02/27/21 06:54 codeine [CODEINE] Allergy Severe ANAPHYLAXIS Verified 02/27/21 06:54 Iodinated Contrast Media Allergy Severe DIFFICULTY Verified 02/27/21 06:54 [IV DYE, IODINE CONTAINING BREATHING CONTRAST ] nut - unspecified [nut] Allergy Intermediate Rash Verified 02/27/21 06:54 shellfish derived Allergy Intermediate Rash Verified 02/27/21 06:54 Sulfa (Sulfonamide Allergy Unknown ANAPHYLAXIS Verified 02/27/21 06:54 Antibiotics) [SULFA (SULFONAMIDE ANTIBIOTICS)] Assessment & Plan Assessment & Plan (1) MDD (major depressive disorder), recurrent episode, moderate: Status: Acute Code(s): F33.1 - Major depressive disorder, recurrent, moderate (2) PTSD (post-traumatic stress disorder): Status: Acute Code(s): F43.10 - Post-traumatic stress disorder, unspecified (3) Antiphospholipid antibody syndrome: Status: Acute Code(s): D68.61 - Antiphospholipid syndrome (4) Antiphospholipid antibody positive: Status: Acute Code(s): R76.0 - Raised antibody titer (5) UTI (urinary tract infection): Status: Acute Code(s): N39.0 - Urinary tract infection, site not specified (6) Cellulitis and abscess of left lower extremity: Status: Acute Code(s): L03.116 - Cellulitis of left lower limb; L02.416 - Cutaneous abscess of left lower limb (7) Hypertension: Status: Acute Code(s): I10 - Essential (primary) hypertension (8) Opioid use disorder, severe, dependence: Status: Acute Code(s): F11.20 - Opioid dependence, uncomplicated (9) Cocaine use disorder: Status: Acute Code(s): F14.10 - Cocaine abuse, uncomplicated Assessment and Plan: IMPRESSION: 40-year-old female with a past medical history of IV drug abuse, PTSD, Bipolar disorder, antiphospholipid syndrome complicated by CVA, multiple DVT/PE status post IVC filter, HTN, CKD stage III, hep C. (r/o HERSON). Patient presents after recent discharge from [facility] this past May 2021 in the face of a relapse, overwhelming anxiety, depression and then suicidal ideation with thoughts to overdose. Patient reports she has been adherent with her medication regimen, which she knows by names and doses. Patient brought to ED by friend. Patient reports that suicidality was sudden and the thought impulsive. She denies any preceding intent or plans and reports that SI has now resolved. Patient said she feels she probably needs an aftercare program to help stabilize longer-term. Patient denies any AVH and does not know why that was mentioned. Patient was found to be COVID positive on admission; also with cellulitis on left lower leg and UTI started on antibiotics. -admit for safety and stabilization 06/20 patient reports depression remains but SI remains fully resolved. She would like to restart Lamictal which she says was very helpful in the past for both mood and PTSD symptoms. Patient reports some chest pain on inhalation only but denies any other symptoms; she will alert staff if anything changes; O2 sat within normal limits and patient afebrile. Locksmith will consult hospitalist to see if there is any other recommendations given patient's report. -regarding patient's antiphospholipid syndrome and theoretical increased risk for clotting while COVID positive, Locksmith called and discussed case with Dr. Casiano, digital marketing assistant/oncologist who explained current recommendations and recommends continuing patient on home dose of enoxaparin without need to increase dose or add another anticoagulant either during admission or post discharge. 06/22/21 - Encourage to use prns. No other changes. 06/23/21 - Continue treatment plan without change PLAN: CV Q 15 minute checks for safety COVID positive: -Currently in isolation room -reports some chest pain on inhalation only; denies any other symptoms -vitals WNL Depression/AnxietyPTSD/substance abuse: START Lamictal 25mg; titrate according to recommended schedule for PTSD and mood stability; patient has been on in the past and reports was helpful Abilify a 7.5 mg daily Clonidine 0.1 mg t.i.d. p.r.n. Hydroxyzine 50 mg q.6 p.r.n. Methadone Prazosin 1 mg q.h.s. Seroquel 300 mg q.h.s. Seroquel 25 mg b.i.d. p.r.n. for anxiety Topamax 100 mg b.i.d. for mood and headache (normally 200mg BiD but in Apr 2021, decreased to 100 mg BID at [facility] due to GERRI) -Patient is asking for program post discharge; SW will review options Lower left limb Cellulitis and UTI (MRSA UTI and MRSA/MSSA Cellulitis) Doxycycline 100 mg b.i.d. for 7 days Keflex 500 mg q.i.d. for 7 days -case discussed with ED physician Dr. Jaffe who recommends above regimen (MRSA grown in urine) Rule out: HERSON NO Seizure disorder: Patient explains history and denies any history of seizure at all other than 1 time when she was 14 years old following of vasculitis/stroke. -She was seen at [facility] on 03/14/21 and started on keppra 750 mg BID for seizures but has been non-adherent with medication since relapse. -had been on dilantin for seizures, which had been stopped for about 10 yrs due to not having any seizures. -Pt reports last had a seizure in Apr 2021; however denies being diagnosed with epilepsy or pseudoseizures, not sure how long they last but they are tonic/clonic in nature, sometimes has an aura and remember them, she does not have a current neurologist.? Antiphospholipid syndrome: -Enoxaparin -will consult hospitalist to see if COVID + status increases risk for blood clots and potential need for additional anticoagulation Hypertension: Amlodipine Past hx recorded on 05/09/21 admission note: -fall 2020 admitted to the [facility] for MRSA bacteremia/bilateral empyema status post chest tube placement; subsequently chest tube was removed; echocardiogram done which showed no evidence of vegetations, MRI of the lumbar spine with no evidence of epidural abscess; and sent to rehab via to finish antibiotics via Port-A-Cath until 02/13/2021; pt left AMA -admitted to [facility] on 02/14/21 due to sepsis, aspiration pneumonia as well as fungemia; discharged to [facility] in [place] on lovenox, as she preferred this to warfarin. -She was recently seen at [facility] on 03/14/21 and started on keppra 750 mg BID for seizures but has been non-adherent with medication since relapse. -had been on dilantin for seizures, which had been stopped for about 10 yrs due to not having any seizures. -Pt reports last had a seizure in Apr 2021; however denies being diagnosed with epilepsy or pseudoseizures, not sure how long they last but they are tonic/clonic in nature, sometimes has an aura and remember them, she does not have a current neurologist.? -was on anticoagulation and 2015; anticoagulation was discontinued post menorrhagia in 2014 and reportedly has not had any blood clots since then; 06/21/21 Pt reporting sore throat, anxiety, depression. 1. Throat culture, throat spray, drops for discomfort 2. Seroquel 50 mg bid to assist with anxiety mgt during Lamictal titration 3. Remeron 7.5 mg HS MRX1 during Lamictal titration I spent minutes with the patient and/or on the patient floor today, greater than?50% of which was spent counseling/coordinating care. Reason for contiued inpatient stay Substantial Risk for: harm to self
[2021-06-24] MEDS: hydrOXYzine HCL 50 MG TABLET PO (15:16)
[2021-06-24 16:40] VITALS: BP 102/68; PULSE 49
[2021-06-24] MEDS: Mirtazapine 7.5 MG TABLET PO (19:46)
[2021-06-24] MEDS: Prazosin HCL 1 MG CAPSULE PO (19:46)
[2021-06-24] MEDS: QUEtiapine Fumarate 300 MG TABLET PO (19:47)
[2021-06-24] MEDS: Enoxaparin Sodium 40 MG/0.4 ML SYRINGE SUBCUT (19:51)
[2021-06-25 06:00] VITALS: BP 101/53; PULSE 77; TEMP 36.3; O2SAT 98
[2021-06-25] MEDS: Acetaminophen 325 MG TABLET 650 MG PO (08:15)
--- NOTE | 2021-06-25 09:23 | HO.PSYCHPN ---
Subjective Subjective Date of Service: 06/25/21 Reason For Visit: depression with SI, opiate use disorder-severe on Subjective Notes: Conditional Voluntary Interim History: Melita remains in isolation due to COVID until 06/26/21. Pt reports in terms of depression she is feeling less depressed, more hopeful about her treatment and future. She continues to report anxious mood, thinks clonidine is most effective for anxiety. Will scheduled clonidine and if BP stable, no dizziness nor orth hotn, will consider increasing dose. Pt reports sleeping well. She also reports sense of taste is back. She denies SI/HI. She states she wants to go to [facility]. Pt denies SOB, no cough, no sore throat, afebrile. O2 sat 98 on room air. Medication Compliance: Yes Review of Systems Review of Systems Yes all other systems are reviewed and are negative Constitutional: Reports as per HPI, Reports chills (denies), Reports fever(s) (denies chills) and Reports headache(s) Eyes: Reports as per HPI and Reports no additional eye complaints Reports system reviewed and no additional complaints, except as documented, Reports as per HPI, Reports headache(s), Denies nasal congestion, Reports nasal discharge (denies) and Reports sore throat Cardiovascular: Reports as per HPI, Denies chest pain and Denies dyspnea Respiratory: Reports as per HPI, Denies cough and Denies dyspnea Gastrointestinal: Reports as per HPI, Denies abdominal pain, Denies diarrhea and Denies vomiting Musculoskeletal: Reports no additional musculoskeletal complaints and Denies numbness Skin/Breast: Reports as per HPI and Denies rash Reports as per HPI, Reports headache(s), Denies focal weakness, Denies numbness and Denies Sensory deficit (Neuro) Psychiatric: Reports as per HPI, Reports anxiety, Reports depression, Reports difficulty concentrating, Reports hopelessness and Reports suicidal ideation Endocrine: Reports no additional endocrine complaints and Reports as per HPI Hematologic/Lymphatic: Reports no additional hematologic/lymphatic complaints, Reports as per HPI and Reports other (No peripheral edema) Mental Status Exam Mental Status Exam Narrative: Pt is alert and oriented; behavior is cooperative and calm; dressed in casual attire, disheveled and with poor adequate hygiene, numerous scratch karen/lessions on face; mood is described as OK and affect depressed, downcast;? eye contact appropriate; Speech is normal rate, volume and prosody and not pressured; no psychomotor agitation/retardation present; thought process is a little slowed but overall organized and goal directed; Thought content is on tx; otherwise pertinent to relevant topics and without any delusional content, paranoid ideations or grandiosity; denies any SI/HI. There is no evidence of perceptual disturbance. ?Patients insight and judgment are fair Diagnostics Vital Signs (24Hr): Vital Signs - 24 hr 06/24/21 16:40 06/25/21 06:00 Temperature 97.3 F Pulse Rate 49 L 77 Blood Pressure 102/68 101/53 L Pulse Oximetry 98 BMI result Body Mass Index 20.2 Labs Results: 06/18/21 15:01 06/18/21 15:01 Imaging Radiology Impressions: ITS Impressions Chest X-Ray 06/20/21 20:55 IMPRESSION: Low inspiratory effort radiograph. No acute abnormality of the chest. Medications Medications Current Medications Acetaminophen (Acetaminophen 325 Mg Tablet) 650 mg PO Q6H PRN PRN Reason: Headache/Pain Mild Scale (1-3) Last Admin: 06/25/21 08:15 Dose: 650 mg Documented by: Al Hydroxide/Mg Hydroxide (Magnesium Hydrox/Alum Hydrox 30 Ml Oral.Susp) 30 ml PO Q6H PRN PRN Reason: Heartburn/Nausea Amlodipine Besylate (Amlodipine Besylate 10 Mg Tablet) 10 mg PO DAILY [facility]; Protocol Last Admin: 06/24/21 10:44 Dose: 10 mg Documented by: Aripiprazole (Aripiprazole 5 Mg Tablet) 7.5 mg PO DAILY [facility] Last Admin: 06/24/21 10:43 Dose: 7.5 mg Documented by: Benzocaine (Throat Lozenge, Medicated Lozenge) 1 lozenge MUCOUS MEM Q2H PRN PRN Reason: Sore Throat Last Admin: 06/22/21 16:19 Dose: 1 lozenge Documented by: Cyanocobalamin (Cyanocobalamin (Vitamin B-12) 100 Mcg Tablet) 100 mcg PO DAILY [facility] Last Admin: 06/24/21 10:43 Dose: 100 mcg Documented by: Doxycycline Hyclate (Doxycycline Hyclate 100 Mg Tablet) 100 mg PO BID [facility] Last Admin: 06/24/21 19:46 Dose: 100 mg Documented by: Enoxaparin Sodium (Enoxaparin Sodium 40 Mg/0.4 Ml Syringe) 40 mg SUBCUT Q24H [facility] Last Admin: 06/24/21 19:51 Dose: 40 mg Documented by: Gabapentin (Gabapentin 100 Mg Capsule) 200 mg PO TID [facility] Last Admin: 06/24/21 19:47 Dose: 200 mg Documented by: Hydroxyzine HCl (Hydroxyzine Hcl 50 Mg Tablet) 50 mg PO Q6H PRN PRN Reason: Anxiety Last Admin: 06/24/21 15:16 Dose: 50 mg Documented by: Lamotrigine (Lamotrigine 25 Mg Tablet) 25 mg PO DAILY [facility] Last Admin: 06/24/21 10:44 Dose: 25 mg Documented by: Magnesium Hydroxide (Milk Of Magnesia 30 Ml Oral.Susp) 30 ml PO DAILY PRN PRN Reason: Constipation Methadone HCl (Methadone Hcl 20 Mg/2 Ml Oral.Conc) 100 mg PO DAILY [facility] Last Admin: 06/24/21 10:42 Dose: 100 mg Documented by: Mirtazapine (Mirtazapine 7.5 Mg Tablet) 7.5 mg PO BEDTIME MRX1 [facility] Last Admin: 06/24/21 20:48 Dose: Not Given Documented by: Multi-Ingred Medicated Throat [place] (Throat [place], Medicated 20 Ml Bottle) 1 spray MUCOUS MEM Q2H PRN PRN Reason: Sore Throat Multivitamins/Vitamin C (Multivitamin Tablet) 1 tab PO DAILY [facility] Last Admin: 06/24/21 10:43 Dose: 1 tab Documented by: Nicotine (Nicotine 21 Mg Patch.Td24) 21 mg TRANSDERMA DAILY [facility] Last Admin: 06/24/21 11:01 Dose: Not Given Documented by: Pharmacy Consult (Consult Rx Perform Med Rec) 1 each MISCELLANE ONCE PRN PRN Reason: Consult order Prazosin HCl (Prazosin Hcl 1 Mg Capsule) 1 mg PO BEDTIME [facility]; Protocol Last Admin: 06/24/21 19:46 Dose: 1 mg Documented by: Quetiapine Fumarate (Quetiapine Fumarate 300 Mg Tablet) 300 mg PO BEDTIME [facility] Last Admin: 06/24/21 19:47 Dose: 300 mg Documented by: Quetiapine Fumarate (Quetiapine Fumarate 25 Mg Tablet) 25 mg PO BID PRN PRN Reason: anxiety Last Admin: 06/22/21 11:18 Dose: 25 mg Documented by: Quetiapine Fumarate (Quetiapine Fumarate 50 Mg Tablet) 50 mg PO BID [facility] Last Admin: 06/24/21 19:46 Dose: 50 mg Documented by: Thiamine HCl (Thiamine Hcl 100 Mg Tablet) 100 mg PO DAILY [facility] Last Admin: 06/24/21 10:44 Dose: 100 mg Documented by: Topiramate (Topiramate 100 Mg Tablet) 100 mg PO BID [facility] Last Admin: 06/24/21 19:46 Dose: 100 mg Documented by: Allergies Allergies Allergy/AdvReac Type Severity Reaction Status Date / Time bee pollen [BEE STINGS] Allergy Severe Anaphylaxis Verified 02/27/21 06:54 codeine [CODEINE] Allergy Severe ANAPHYLAXIS Verified 02/27/21 06:54 Iodinated Contrast Media Allergy Severe DIFFICULTY Verified 02/27/21 06:54 [IV DYE, IODINE CONTAINING BREATHING CONTRAST ] nut - unspecified [nut] Allergy Intermediate Rash Verified 02/27/21 06:54 shellfish derived Allergy Intermediate Rash Verified 02/27/21 06:54 Sulfa (Sulfonamide Allergy Unknown ANAPHYLAXIS Verified 02/27/21 06:54 Antibiotics) [SULFA (SULFONAMIDE ANTIBIOTICS)] Assessment & Plan Assessment & Plan (1) MDD (major depressive disorder), recurrent episode, moderate: Status: Acute Code(s): F33.1 - Major depressive disorder, recurrent, moderate (2) PTSD (post-traumatic stress disorder): Status: Acute Code(s): F43.10 - Post-traumatic stress disorder, unspecified (3) Antiphospholipid antibody syndrome: Status: Acute Code(s): D68.61 - Antiphospholipid syndrome (4) Antiphospholipid antibody positive: Status: Acute Code(s): R76.0 - Raised antibody titer (5) UTI (urinary tract infection): Status: Acute Code(s): N39.0 - Urinary tract infection, site not specified (6) Cellulitis and abscess of left lower extremity: Status: Acute Code(s): L03.116 - Cellulitis of left lower limb; L02.416 - Cutaneous abscess of left lower limb (7) Hypertension: Status: Acute Code(s): I10 - Essential (primary) hypertension (8) Opioid use disorder, severe, dependence: Status: Acute Code(s): F11.20 - Opioid dependence, uncomplicated (9) Cocaine use disorder: Status: Acute Code(s): F14.10 - Cocaine abuse, uncomplicated Assessment and Plan: IMPRESSION: 40-year-old female with a past medical history of IV drug abuse, PTSD, Bipolar disorder, antiphospholipid syndrome complicated by CVA, multiple DVT/PE status post IVC filter, HTN, CKD stage III, hep C. (r/o HERSON). Patient presents after recent discharge from [facility] this past May 2021 in the face of a relapse, overwhelming anxiety, depression and then suicidal ideation with thoughts to overdose. Patient reports she has been adherent with her medication regimen, which she knows by names and doses. Patient brought to ED by friend. Patient reports that suicidality was sudden and the thought impulsive. She denies any preceding intent or plans and reports that SI has now resolved. Patient said she feels she probably needs an aftercare program to help stabilize longer-term. Patient denies any AVH and does not know why that was mentioned. Patient was found to be COVID positive on admission; also with cellulitis on left lower leg and UTI started on antibiotics. -admit for safety and stabilization 06/20 patient reports depression remains but SI remains fully resolved. She would like to restart Lamictal which she says was very helpful in the past for both mood and PTSD symptoms. Patient reports some chest pain on inhalation only but denies any other symptoms; she will alert staff if anything changes; O2 sat within normal limits and patient afebrile. Per Diem Interpreter will consult hospitalist to see if there is any other recommendations given patient's report. -regarding patient's antiphospholipid syndrome and theoretical increased risk for clotting while COVID positive, Per Di[employer] Interpreter called and discussed case with Dr. Casiano, rn plastic surgery/oncologist who explained current recommendations and recommends continuing patient on home dose of enoxaparin without need to increase dose or add another anticoagulant either during admission or post discharge. 06/22/21 - Encourage to use prns. No other changes. 06/23/21 - Continue treatment plan without change 06/25/2021- scheduled clonidine for anxiety, which she reports most helpful for anxiety. if BP stable, no dizziness, ortho hotn, may increase. otherwise pt reports less depressed mood, no SI/HI. wants to go to [facility]. PLAN: CV Q 15 minute checks for safety COVID positive: -Currently in isolation room -reports some chest pain on inhalation only; denies any other symptoms -vitals WNL Depression/AnxietyPTSD/substance abuse: START Lamictal 25mg; titrate according to recommended schedule for PTSD and mood stability; patient has been on in the past and reports was helpful Abilify a 7.5 mg daily Clonidine 0.1 mg t.i.d. p.r.n. Hydroxyzine 50 mg q.6 p.r.n. Methadone Prazosin 1 mg q.h.s. Seroquel 300 mg q.h.s. Seroquel 25 mg b.i.d. p.r.n. for anxiety Topamax 100 mg b.i.d. for mood and headache (normally 200mg BiD but in Apr 2021, decreased to [address] [facility] due to GERRI) -Patient is asking for program post discharge; SW will review options Lower left limb Cellulitis and UTI (MRSA UTI and MRSA/MSSA Cellulitis) Doxycycline 100 mg b.i.d. for 7 days Keflex 500 mg q.i.d. for 7 days -case discussed with ED physician Dr. Jaffe who recommends above regimen (MRSA grown in urine) Rule out: HERSON NO Seizure disorder: Patient explains history and denies any history of seizure at all other than 1 time when she was 14 years old following of vasculitis/stroke. -She was seen at [facility] on 03/14/21 and started on keppra 750 mg BID for seizures but has been non-adherent with medication since relapse. -had been on dilantin for seizures, which had been stopped for about 10 yrs due to not having any seizures. -Pt reports last had a seizure in Apr 2021; however denies being diagnosed with epilepsy or pseudoseizures, not sure how long they last but they are tonic/clonic in nature, sometimes has an aura and remember them, she does not have a current neurologist.? Antiphospholipid syndrome: -Enoxaparin -will consult hospitalist to see if COVID + status increases risk for blood clots and potential need for additional anticoagulation Hypertension: Amlodipine Past hx recorded on 05/09/21 admission note: -fall 2020 admitted to the [facility] for MRSA bacteremia/bilateral empyema status post chest tube placement; subsequently chest tube was removed; echocardiogram done which showed no evidence of vegetations, MRI of the lumbar spine with no evidence of epidural abscess; and sent to rehab via to finish antibiotics via Port-A-Cath until 02/13/2021; pt left AMA -admitted to [facility] on 02/14/21 due to sepsis, aspiration pneumonia as well as fungemia; discharged to [facility] in [place] on lovenox, as she preferred this to warfarin. -She was recently seen at [facility] on 03/14/21 and started on keppra 750 mg BID for seizures but has been non-adherent with medication since relapse. -had been on dilantin for seizures, which had been stopped for about 10 yrs due to not having any seizures. -Pt reports last had a seizure in Apr 2021; however denies being diagnosed with epilepsy or pseudoseizures, not sure how long they last but they are tonic/clonic in nature, sometimes has an aura and remember them, she does not have a current neurologist.? -was on anticoagulation and 2015; anticoagulation was discontinued post menorrhagia in 2014 and reportedly has not had any blood clots since then; 06/21/21 Pt reporting sore throat, anxiety, depression. 1. Throat culture, throat spray, drops for discomfort 2. Seroquel 50 mg bid to assist with anxiety mgt during Lamictal titration 3. Remeron 7.5 mg HS MRX1 during Lamictal titration I spent minutes with the patient and/or on the patient floor today, greater than?50% of which was spent counseling/coordinating care. Reason for contiued inpatient stay Substantial Risk for: harm to self
[2021-06-25] MEDS: Milk of Magnesia 30 ML ORAL.SUSP PO (09:40)
[2021-06-25] MEDS: methADONE HCl 20 MG/2 ML ORAL.CONC 100 MG PO (09:40)
[2021-06-25] MEDS: lamoTRIgine 25 MG TABLET PO (09:41)
[2021-06-25] MEDS: ARIPiprazole 5 MG TABLET 7.5 MG PO (09:41)
[2021-06-25] MEDS: Gabapentin 100 MG CAPSULE 200 MG PO ×3 (09:41→20:26)
[2021-06-25] MEDS: Multivitamin TABLET 1 TAB PO (09:41)
[2021-06-25] MEDS: Cyanocobalamin (Vitamin B-12) 100 MCG TABLET PO (09:42)
[2021-06-25] MEDS: Topiramate 100 MG TABLET PO ×2 (09:42→20:26)
[2021-06-25] MEDS: Thiamine HCL 100 MG TABLET PO (09:42)
[2021-06-25] MEDS: amLODIPine Besylate 10 MG TABLET PO (09:42)
[2021-06-25] MEDS: QUEtiapine Fumarate 50 MG TABLET PO ×2 (09:42→20:26)
[2021-06-25 14:15] VITALS: BP 112/68; PULSE 92
[2021-06-25] MEDS: cloNIDine HCL 0.1 MG TABLET PO ×2 (14:15→20:27)
[2021-06-25 18:00] VITALS: BP 111/62; PULSE 66; TEMP 36.3; O2SAT 98
[2021-06-25] MEDS: Enoxaparin Sodium 40 MG/0.4 ML SYRINGE SUBCUT (20:25)
[2021-06-25] MEDS: Prazosin HCL 1 MG CAPSULE PO (20:26)
[2021-06-25] MEDS: Mirtazapine 7.5 MG TABLET PO ×2 (20:26→21:43)
[2021-06-25] MEDS: QUEtiapine Fumarate 300 MG TABLET PO (20:29)
[2021-06-26 06:00] VITALS: BP 126/80; PULSE 67; TEMP 37; O2SAT 96
[2021-06-26 08:23] VITALS: BP 123/72; PULSE 62; TEMP 36.6; O2SAT 100
[2021-06-26] MEDS: Multivitamin TABLET 1 TAB PO (08:30)
[2021-06-26] MEDS: Gabapentin 100 MG CAPSULE 200 MG PO ×3 (08:30→21:44)
[2021-06-26] MEDS: amLODIPine Besylate 10 MG TABLET PO (08:30)
[2021-06-26] MEDS: Thiamine HCL 100 MG TABLET PO (08:30)
[2021-06-26] MEDS: ARIPiprazole 5 MG TABLET 7.5 MG PO (08:31)
[2021-06-26] MEDS: Cyanocobalamin (Vitamin B-12) 100 MCG TABLET PO (08:31)
[2021-06-26] MEDS: Topiramate 100 MG TABLET PO ×2 (08:31→21:46)
[2021-06-26] MEDS: lamoTRIgine 25 MG TABLET PO (08:31)
[2021-06-26] MEDS: QUEtiapine Fumarate 50 MG TABLET PO ×2 (08:32→21:45)
[2021-06-26] MEDS: cloNIDine HCL 0.1 MG TABLET PO ×2 (08:32→14:06)
[2021-06-26] MEDS: methADONE HCl 20 MG/2 ML ORAL.CONC 100 MG PO (08:32)
--- NOTE | 2021-06-26 10:19 | HO.PSYCHPN ---
Subjective Subjective Date of Service: 06/26/21 Reason For Visit: depression with SI, opiate use disorder-severe on Interim History: Patient reports that her depression is much better and denies any SI. However she reports she has much anxiety. So much so that she is miserable in the milieu, keeping to herself and often rocking in a corner to alleviate symptoms. Cotton Converter and patient discussed options. She does not want to continue with mirtazapine as it can and increase weight gain which she does not want. She instead agreed to a trial of Prozac which can help with anxiety and PTSD symptoms of which she also struggles. Cotton Converter and patient discussed risks of Prozac including the possibility of it triggering a manic episode, however she is on mood stabilizing medication of Abilify and Seroquel and is also being titrated on Lamictal, making the risk low. Patient further understands that therapy is an essential component to addressing her longstanding chronic anxiety, something she would like to engage once more stabilized Patient would like clonidine made as a p.r.n.; says it is a little bit helpful Patient says insomnia is not really that much of a problem although it was just for a couple days. Patient would also like hydroxyzine increased. Mental Status Exam Mental Status Exam Narrative: Pt is alert and oriented; behavior is cooperative and calm; dressed in casual attire, adequately groomed; numerous scratch karen/lesions on face healing well; mood is described as better...anxious and affect anxious;? eye contact appropriate; Speech is normal rate, volume and prosody and not pressured; no psychomotor agitation/retardation present; thought process linear and goal directed; Thought content is on tx; otherwise pertinent to relevant topics and without any delusional content, paranoid ideations or grandiosity; denies any SI/HI. There is no evidence of perceptual disturbance. ?Patients insight and judgment are fair Diagnostics Vital Signs (24Hr): Vital Signs - 24 hr 06/25/21 14:15 06/25/21 18:00 06/26/21 06:00 Temperature 97.3 F 98.6 F Pulse Rate 92 66 67 Blood Pressure 112/68 111/62 126/80 Pulse Oximetry 98 96 06/26/21 08:23 Temperature 97.8 F Pulse Rate 62 Blood Pressure 123/72 Pulse Oximetry 100 BMI result Body Mass Index 20.2 Labs Results: 06/18/21 15:01 06/18/21 15:01 Imaging Radiology Impressions: ITS Impressions Chest X-Ray 06/20/21 20:55 IMPRESSION: Low inspiratory effort radiograph. No acute abnormality of the chest. Medications Medications Current Medications Acetaminophen (Acetaminophen 325 Mg Tablet) 650 mg PO Q6H PRN PRN Reason: Headache/Pain Mild Scale (1-3) Last Admin: 06/25/21 08:15 Dose: 650 mg Documented by: Al Hydroxide/Mg Hydroxide (Magnesium Hydrox/Alum Hydrox 30 Ml Oral.Susp) 30 ml PO Q6H PRN PRN Reason: Heartburn/Nausea Amlodipine Besylate (Amlodipine Besylate 10 Mg Tablet) 10 mg PO DAILY [facility]; Protocol Last Admin: 06/26/21 08:30 Dose: 10 mg Documented by: Aripiprazole (Aripiprazole 5 Mg Tablet) 7.5 mg PO DAILY [facility] Last Admin: 06/26/21 08:31 Dose: 7.5 mg Documented by: Benzocaine (Throat Lozenge, Medicated Lozenge) 1 lozenge MUCOUS MEM Q2H PRN PRN Reason: Sore Throat Last Admin: 06/22/21 16:19 Dose: 1 lozenge Documented by: Clonidine HCl (Clonidine Hcl 0.1 Mg Tablet) 0.1 mg PO TID [facility]; Protocol Last Admin: 06/26/21 08:32 Dose: 0.1 mg Documented by: Cyanocobalamin (Cyanocobalamin (Vitamin B-12) 100 Mcg Tablet) 100 mcg PO DAILY [facility] Last Admin: 06/26/21 08:31 Dose: 100 mcg Documented by: Doxycycline Hyclate (Doxycycline Hyclate 100 Mg Tablet) 100 mg PO BID [facility] Last Admin: 06/26/21 08:32 Dose: 100 mg Documented by: Enoxaparin Sodium (Enoxaparin Sodium 40 Mg/0.4 Ml Syringe) 40 mg SUBCUT Q24H [facility] Last Admin: 06/25/21 20:25 Dose: 40 mg Documented by: Gabapentin (Gabapentin 100 Mg Capsule) 200 mg PO TID [facility] Last Admin: 06/26/21 08:30 Dose: 200 mg Documented by: Hydroxyzine HCl (Hydroxyzine Hcl 50 Mg Tablet) 50 mg PO Q6H PRN PRN Reason: Anxiety Last Admin: 06/24/21 15:16 Dose: 50 mg Documented by: Lamotrigine (Lamotrigine 25 Mg Tablet) 25 mg PO DAILY [facility] Last Admin: 06/26/21 08:31 Dose: 25 mg Documented by: Magnesium Hydroxide (Milk Of Magnesia 30 Ml Oral.Susp) 30 ml PO DAILY PRN PRN Reason: Constipation Last Admin: 06/25/21 09:40 Dose: 30 ml Documented by: Methadone HCl (Methadone Hcl 20 Mg/2 Ml Oral.Conc) 100 mg PO DAILY [facility] Last Admin: 06/26/21 08:32 Dose: 100 mg Documented by: Mirtazapine (Mirtazapine 7.5 Mg Tablet) 7.5 mg PO BEDTIME MRX1 [facility] Last Admin: 06/25/21 21:43 Dose: 7.5 mg Documented by: Multi-Ingred Medicated Throat [place] (Throat [place], Medicated 20 Ml Bottle) 1 spray MUCOUS MEM Q2H PRN PRN Reason: Sore Throat Multivitamins/Vitamin C (Multivitamin Tablet) 1 tab PO DAILY [facility] Last Admin: 06/26/21 08:30 Dose: 1 tab Documented by: Nicotine (Nicotine 21 Mg Patch.Td24) 21 mg TRANSDERMA DAILY [facility] Last Admin: 06/26/21 08:41 Dose: Not Given Documented by: Pharmacy Consult (Consult Rx Perform Med Rec) 1 each MISCELLANE ONCE PRN PRN Reason: Consult order Prazosin HCl (Prazosin Hcl 1 Mg Capsule) 1 mg PO BEDTIME [facility]; Protocol Last Admin: 06/25/21 20:26 Dose: 1 mg Documented by: Quetiapine Fumarate (Quetiapine Fumarate 300 Mg Tablet) 300 mg PO BEDTIME [facility] Last Admin: 06/25/21 20:29 Dose: 300 mg Documented by: Quetiapine Fumarate (Quetiapine Fumarate 25 Mg Tablet) 25 mg PO BID PRN PRN Reason: anxiety Last Admin: 06/22/21 11:18 Dose: 25 mg Documented by: Quetiapine Fumarate (Quetiapine Fumarate 50 Mg Tablet) 50 mg PO BID [facility] Last Admin: 06/26/21 08:32 Dose: 50 mg Documented by: Thiamine HCl (Thiamine Hcl 100 Mg Tablet) 100 mg PO DAILY [facility] Last Admin: 06/26/21 08:30 Dose: 100 mg Documented by: Topiramate (Topiramate 100 Mg Tablet) 100 mg PO BID [facility] Last Admin: 06/26/21 08:31 Dose: 100 mg Documented by: Allergies Allergies Allergy/AdvReac Type Severity Reaction Status Date / Time bee pollen [BEE STINGS] Allergy Severe Anaphylaxis Verified 02/27/21 06:54 codeine [CODEINE] Allergy Severe ANAPHYLAXIS Verified 02/27/21 06:54 Iodinated Contrast Media Allergy Severe DIFFICULTY Verified 02/27/21 06:54 [IV DYE, IODINE CONTAINING BREATHING CONTRAST ] nut - unspecified [nut] Allergy Intermediate Rash Verified 02/27/21 06:54 shellfish derived Allergy Intermediate Rash Verified 02/27/21 06:54 Sulfa (Sulfonamide Allergy Unknown ANAPHYLAXIS Verified 02/27/21 06:54 Antibiotics) [SULFA (SULFONAMIDE ANTIBIOTICS)] Assessment & Plan Assessment & Plan (1) MDD (major depressive disorder), recurrent episode, moderate: Status: Acute Code(s): F33.1 - Major depressive disorder, recurrent, moderate (2) PTSD (post-traumatic stress disorder): Status: Acute Code(s): F43.10 - Post-traumatic stress disorder, unspecified (3) Antiphospholipid antibody syndrome: Status: Acute Code(s): D68.61 - Antiphospholipid syndrome (4) Antiphospholipid antibody positive: Status: Acute Code(s): R76.0 - Raised antibody titer (5) UTI (urinary tract infection): Status: Acute Code(s): N39.0 - Urinary tract infection, site not specified (6) Cellulitis and abscess of left lower extremity: Status: Acute Code(s): L03.116 - Cellulitis of left lower limb; L02.416 - Cutaneous abscess of left lower limb (7) Hypertension: Status: Acute Code(s): I10 - Essential (primary) hypertension (8) Opioid use disorder, severe, dependence: Status: Acute Code(s): F11.20 - Opioid dependence, uncomplicated (9) Cocaine use disorder: Status: Acute Code(s): F14.10 - Cocaine abuse, uncomplicated Plan IMPRESSION: 40-year-old female with a past medical history of IV drug abuse, PTSD, Bipolar disorder, antiphospholipid syndrome complicated by CVA, multiple DVT/PE status post IVC filter, HTN, CKD stage III, hep C. (r/o HERSON). Patient presents after recent discharge from [facility] this past May 2021 in the face of a relapse, overwhelming anxiety, depression and then suicidal ideation with thoughts to overdose. Patient reports she has been adherent with her medication regimen, which she knows by names and doses. Patient brought to ED by friend. Patient reports that suicidality was sudden and the thought impulsive. She denies any preceding intent or plans and reports that SI has now resolved. Patient said she feels she probably needs an aftercare program to help stabilize longer-term. Patient denies any AVH and does not know why that was mentioned. Patient was found to be COVID positive on admission; also with cellulitis on left lower leg and UTI started on antibiotics. -admit for safety and stabilization 06/20 patient reports depression remains but SI remains fully resolved. She would like to restart Lamictal which she says was very helpful in the past for both mood and PTSD symptoms. Patient reports some chest pain on inhalation only but denies any other symptoms; she will alert staff if anything changes; O2 sat within normal limits and patient afebrile. Cotton Converter will consult hospitalist to see if there is any other recommendations given patient's report. -regarding patient's antiphospholipid syndrome and theoretical increased risk for clotting while COVID positive, Cotton Converter called and discussed case with Dr. Casiano, operating systems programmer/oncologist who explained current recommendations and recommends continuing patient on home dose of enoxaparin without need to increase dose or add another anticoagulant either during admission or post discharge. 06/26 patient stabilizing; depression resolved and no SI. Patient continues to have much anxiety and thus keeps to herself in the milieu. Patient had been started on mirtazapine however she has decided against this given its potential for weight gain and prefers to a trial of Prozac; side effects lacks risks discussed and patient agrees to continue with trial given that she is on Abilify and Seroquel which are mood stabilizing making triggering to sussy a low risk; she is also being titrated on Lamictal. Patient is hoping for a CSS program. PLAN: CV Q 15 minute checks for safety COVID positive: -Currently in isolation room -reports some chest pain on inhalation only; denies any other symptoms -vitals WNL Depression/AnxietyPTSD/substance abuse: Continue to titrate Lamictal 25mg; titrate according to recommended schedule for PTSD and mood stability; patient has been on in the past and reports was helpful ContinueAbilify a 7.5 mg daily Continue Clonidine 0.1 mg tid but make it PRN INCREASED TO Hydroxyzine 75 mg q.6 p.r.n. Methadone START Prozac 10 mg for anxiety and PTSD DC mirtazapine; patient wants to avoid potential for weight gain Continue Prazosin 1 mg q.h.s. Continue Seroquel 300 mg q.h.s. Continue Seroquel 25 mg b.i.d. p.r.n. for anxiety Continue Topamax 100 mg b.i.d. for mood and headache (normally 200mg BiD but in Apr 2021, decreased to 100 mg BID at [facility] due to GERRI) -Patient is asking for program post discharge; SW will review options Lower left limb Cellulitis and UTI (MRSA UTI and MRSA/MSSA Cellulitis) Doxycycline 100 mg b.i.d. for 7 days Keflex 500 mg q.i.d. for 7 days -case discussed with ED physician Dr. Jaffe who recommends above regimen (MRSA grown in urine) Rule out: HERSON NO Seizure disorder: Patient explains history and denies any history of seizure at all other than 1 time when she was 14 years old following of vasculitis/stroke. -She was seen at [facility] on 03/14/21 and started on keppra 750 mg BID for seizures but has been non-adherent with medication since relapse. -had been on dilantin for seizures, which had been stopped for about 10 yrs due to not having any seizures. -Pt reports last had a seizure in Apr 2021; however denies being diagnosed with epilepsy or pseudoseizures, not sure how long they last but they are tonic/clonic in nature, sometimes has an aura and remember them, she does not have a current neurologist.? Antiphospholipid syndrome: -Enoxaparin -will consult hospitalist to see if COVID + status increases risk for blood clots and potential need for additional anticoagulation Hypertension: Amlodipine Past hx recorded on 05/09/21 admission note: -fall 2020 admitted to the [facility] for MRSA bacteremia/bilateral empyema status post chest tube placement; subsequently chest tube was removed; echocardiogram done which showed no evidence of vegetations, MRI of the lumbar spine with no evidence of epidural abscess; and sent to rehab via to finish antibiotics via Port-A-Cath until 02/13/2021; pt left AMA -admitted to [facility] on 02/14/21 due to sepsis, aspiration pneumonia as well as fungemia; discharged to [facility] in [place] on lovenox, as she preferred this to warfarin. -She was recently seen at [facility] on 03/14/21 and started on keppra 750 mg BID for seizures but has been non-adherent with medication since relapse. -had been on dilantin for seizures, which had been stopped for about 10 yrs due to not having any seizures. -Pt reports last had a seizure in Apr 2021; however denies being diagnosed with epilepsy or pseudoseizures, not sure how long they last but they are tonic/clonic in nature, sometimes has an aura and remember them, she does not have a current neurologist.? -was on anticoagulation and 2015; anticoagulation was discontinued post menorrhagia in 2014 and reportedly has not had any blood clots since then; 06/21/21 Pt reporting sore throat, anxiety, depression. 1. Throat culture, throat spray, drops for discomfort 2. Seroquel 50 mg bid to assist with anxiety mgt during Lamictal titration 3. Remeron 7.5 mg HS MRX1 during Lamictal titration I spent minutes with the patient and/or on the patient floor today, greater than?50% of which was spent counseling/coordinating care. Reason for contiued inpatient stay Substantial Risk for: rapid decompensation
[2021-06-26] MEDS: Throat Lozenge, Medicated LOZENGE 1 LOZENGE MUCOUS MEM (15:24)
[2021-06-26] MEDS: QUEtiapine Fumarate 25 MG TABLET PO (15:24)
[2021-06-26] MEDS: hydrOXYzine HCL 50 MG TABLET PO (16:49)
[2021-06-26 21:35] VITALS: BP 111/66; PULSE 57; TEMP 36.6
[2021-06-26] MEDS: Prazosin HCL 1 MG CAPSULE PO (21:44)
[2021-06-26] MEDS: QUEtiapine Fumarate 300 MG TABLET PO (21:46)
[2021-06-26] MEDS: Enoxaparin Sodium 40 MG/0.4 ML SYRINGE SUBCUT (21:47)
[2021-06-27 06:00] VITALS: BP 94/61; PULSE 73; TEMP 36.5; O2SAT 98
[2021-06-27] MEDS: QUEtiapine Fumarate 50 MG TABLET PO ×2 (08:38→20:21)
[2021-06-27] MEDS: Acetaminophen 325 MG TABLET 650 MG PO ×2 (08:38→14:30)
[2021-06-27] MEDS: amLODIPine Besylate 10 MG TABLET PO (08:38)
[2021-06-27] MEDS: methADONE HCl 20 MG/2 ML ORAL.CONC 100 MG PO (08:39)
[2021-06-27] MEDS: Thiamine HCL 100 MG TABLET PO (08:39)
[2021-06-27] MEDS: lamoTRIgine 25 MG TABLET PO (08:39)
[2021-06-27] MEDS: ARIPiprazole 5 MG TABLET 7.5 MG PO (08:39)
[2021-06-27] MEDS: Cyanocobalamin (Vitamin B-12) 100 MCG TABLET PO (08:39)
[2021-06-27] MEDS: Gabapentin 100 MG CAPSULE 200 MG PO ×3 (08:39→20:21)
[2021-06-27] MEDS: Multivitamin TABLET 1 TAB PO (08:39)
[2021-06-27] MEDS: FLUoxetine HCl 10 MG CAPSULE PO (08:39)
[2021-06-27] MEDS: Topiramate 100 MG TABLET PO ×2 (08:39→20:21)
[2021-06-27] MEDS: cloNIDine HCL 0.1 MG TABLET PO (11:44)
[2021-06-27] MEDS: hydrOXYzine HCL 25 MG TABLET 75 MG PO (14:29)
[2021-06-27] MEDS: QUEtiapine Fumarate 25 MG TABLET PO (16:35)
--- NOTE | 2021-06-27 17:02 | P.PNPSI_ITS ---
Subjective Subjective Date of Service: 06/27/21 Reason For Visit: depression with SI, opiate use disorder-severe on Interim History: Patient reports that depression remains resolved and denies any SI. She said however that she got an intense migraine today which she has not had for years and thinks it is maybe because she took Prozac this morning. Patient said that Imitrex 50 mg 1 time dose is typically enough to break the migraine, which keno writer / runner ordered. She agrees to try Prozac tomorrow as well but also a feels it is unlikely tolerable she gets another migraine. Patient said she spent most of the day lying in bed trying to cope with the migraine. She did however express much enthusiasm about potential program which she described and is hopeful about getting into. Mental Status Exam Mental Status Exam Narrative: Pt is alert and oriented; behavior is cooperative and calm; dressed in casual attire, adequately groomed; numerous scratch karen/lesions on face healing well; mood is described as ok and affect congruent;? eye contact appropriate; Speech is normal rate, volume and prosody and not pressured; no psychomotor agitation/retardation present; thought process linear and goal directed; Thought content is on tx; otherwise pertinent to relevant topics and without any delusional content, paranoid ideations or grandiosity; denies any SI/HI. There is no evidence of perceptual disturbance. ?Patients insight and judgment are fair Diagnostics Vital Signs (24Hr): Vital Signs - 24 hr 06/26/21 21:35 06/27/21 06:00 Temperature 97.8 F 97.7 F Pulse Rate 57 73 Blood Pressure 111/66 94/61 Pulse Oximetry 98 BMI result Verdana 4 Body Mass Index Verdana 4 20.2 Verdana 4 Verdana 4 Labs Results: 06/18/21 15:01 06/18/21 15:01 Imaging Radiology Impressions: ITS Impressions Chest X-Ray 06/20/21 20:55 IMPRESSION: Low inspiratory effort radiograph. No acute abnormality of the chest. Medications Medications Current Medications Acetaminophen (Acetaminophen 325 Mg Tablet) 650 mg PO Q6H PRN PRN Reason: Headache/Pain Mild Scale (1-3) Last Admin: 06/27/21 14:30 Dose: 650 mg Documented by: Al Hydroxide/Mg Hydroxide (Magnesium Hydrox/Alum Hydrox 30 Ml Oral.Susp) 30 ml PO Q6H PRN PRN Reason: Heartburn/Nausea Amlodipine Besylate (Amlodipine Besylate 10 Mg Tablet) 10 mg PO DAILY [facility]; Protocol Last Admin: 06/27/21 08:38 Dose: 10 mg Documented by: Aripiprazole (Aripiprazole 5 Mg Tablet) 7.5 mg PO DAILY [facility] Last Admin: 06/27/21 08:39 Dose: 7.5 mg Documented by: Benzocaine (Throat Lozenge, Medicated Lozenge) 1 lozenge MUCOUS MEM Q2H PRN PRN Reason: Sore Throat Last Admin: 06/26/21 15:24 Dose: 1 lozenge Documented by: Clonidine HCl (Clonidine Hcl 0.1 Mg Tablet) 0.1 mg PO TID PRN; Protocol PRN Reason: anxiety Last Admin: 06/27/21 11:44 Dose: 0.1 mg Documented by: Cyanocobalamin (Cyanocobalamin (Vitamin B-12) 100 Mcg Tablet) 100 mcg PO DAILY [facility] Last Admin: 06/27/21 08:39 Dose: 100 mcg Documented by: Enoxaparin Sodium (Enoxaparin Sodium 40 Mg/0.4 Ml Syringe) 40 mg SUBCUT Q24H [facility] Last Admin: 06/26/21 21:47 Dose: 40 mg Documented by: Fluoxetine HCl (Fluoxetine Hcl 10 Mg Capsule) 10 mg PO DAILY [facility] Last Admin: 06/27/21 08:39 Dose: 10 mg Documented by: Gabapentin (Gabapentin 100 Mg Capsule) 200 mg PO TID [facility] Last Admin: 06/27/21 14:30 Dose: 200 mg Documented by: Hydroxyzine HCl (Hydroxyzine Hcl 25 Mg Tablet) 75 mg PO Q6H PRN PRN Reason: Anxiety Last Admin: 06/27/21 14:29 Dose: 75 mg Documented by: Lamotrigine (Lamotrigine 25 Mg Tablet) 25 mg PO DAILY [facility] Last Admin: 06/27/21 08:39 Dose: 25 mg Documented by: Magnesium Hydroxide (Milk Of Magnesia 30 Ml Oral.Susp) 30 ml PO DAILY PRN PRN Reason: Constipation Last Admin: 06/25/21 09:40 Dose: 30 ml Documented by: Methadone HCl (Methadone Hcl 20 Mg/2 Ml Oral.Conc) 100 mg PO DAILY [facility] Last Admin: 06/27/21 08:39 Dose: 100 mg Documented by: Multi-Ingred Medicated Throat Franklin (Throat Franklin, Medicated 20 Ml Bottle) 1 spray MUCOUS MEM Q2H PRN PRN Reason: Sore Throat Multivitamins/Vitamin C (Multivitamin Tablet) 1 tab PO DAILY [facility] Last Admin: 06/27/21 08:39 Dose: 1 tab Documented by: Nicotine (Nicotine 21 Mg Patch.Td24) 21 mg TRANSDERMA DAILY [facility] Last Admin: 06/27/21 08:45 Dose: Not Given Documented by: Pharmacy Consult (Consult Rx Perform Med Rec) 1 each MISCELLANE ONCE PRN PRN Reason: Consult order Prazosin HCl (Prazosin Hcl 1 Mg Capsule) 1 mg PO BEDTIME [facility]; Protocol Last Admin: 06/26/21 21:44 Dose: 1 mg Documented by: Quetiapine Fumarate (Quetiapine Fumarate 300 Mg Tablet) 300 mg PO BEDTIME [facility] Last Admin: 06/26/21 21:46 Dose: 300 mg Documented by: Quetiapine Fumarate (Quetiapine Fumarate 25 Mg Tablet) 25 mg PO BID PRN PRN Reason: anxiety Last Admin: 06/27/21 16:35 Dose: 25 mg Documented by: Quetiapine Fumarate (Quetiapine Fumarate 50 Mg Tablet) 50 mg PO BID [facility] Last Admin: 06/27/21 08:38 Dose: 50 mg Documented by: Thiamine HCl (Thiamine Hcl 100 Mg Tablet) 100 mg PO DAILY [facility] Last Admin: 06/27/21 08:39 Dose: 100 mg Documented by: Topiramate (Topiramate 100 Mg Tablet) 100 mg PO BID [facility] Last Admin: 06/27/21 08:39 Dose: 100 mg Documented by: Allergies Allergies Allergy/AdvReac Type Severity Reaction Status Date / Time bee pollen [BEE Allergy Severe Anaphylaxis Verified 02/27/21 06:54 STINGS] codeine [CODEINE] Allergy Severe ANAPHYLAXIS Verified 02/27/21 06:54 Iodinated Contrast Allergy Severe DIFFICULTY Verified 02/27/21 06:54 Media [IV DYE, IODINE BREATHING CONTAINING CONTRAST ] nut - unspecified Allergy Intermediate Rash Verified 02/27/21 06:54 [nut] shellfish derived Allergy Intermediate Rash Verified 02/27/21 06:54 Sulfa (Sulfonamide Allergy Unknown ANAPHYLAXIS Verified 02/27/21 06:54 Antibiotics) [SULFA (SULFONAMIDE ANTIBIOTICS)] Assessment & Plan Assessment & Plan (1) MDD (major depressive disorder), recurrent episode, moderate: Status: Acute Code(s): F33.1 - Major depressive disorder, recurrent, moderate (2) PTSD (post-traumatic stress disorder): Status: Acute Code(s): F43.10 - Post-traumatic stress disorder, unspecified (3) Antiphospholipid antibody syndrome: Status: Acute Code(s): D68.61 - Antiphospholipid syndrome (4) Antiphospholipid antibody positive: Status: Acute Code(s): R76.0 - Raised antibody titer (5) UTI (urinary tract infection): Status: Acute Code(s): N39.0 - Urinary tract infection, site not specified (6) Cellulitis and abscess of left lower extremity: Status: Acute Code(s): L03.116 - Cellulitis of left lower limb; L02.416 - Cutaneous abscess of left lower limb (7) Hypertension: Status: Acute Code(s): I10 - Essential (primary) hypertension (8) Opioid use disorder, severe, dependence: Status: Acute Code(s): F11.20 - Opioid dependence, uncomplicated (9) Cocaine use disorder: Status: Acute Code(s): F14.10 - Cocaine abuse, uncomplicated Plan IMPRESSION: 40-year-old female with a past medical history of IV drug abuse, PTSD, Bipolar disorder, antiphospholipid syndrome complicated by CVA, multiple DVT/PE status post IVC filter, HTN, CKD stage III, hep C. (r/o HERSON). Patient presents after recent discharge from [facility] this past May 2021 in the face of a relapse, overwhelming anxiety, depression and then suicidal ideation with thoughts to overdose. Patient reports she has been adherent with her medication regimen, which she knows by names and doses. Patient brought to ED by friend. Patient reports that suicidality was sudden and the thought impulsive. She denies any preceding intent or plans and reports that SI has now resolved. Patient said she feels she probably needs an aftercare program to help stabilize longer-term. Patient denies any AVH and does not know why that was mentioned. Patient was found to be COVID positive on admission; also with cellulitis on left lower leg and UTI started on antibiotics. -admit for safety and stabilization 06/20 patient reports depression remains but SI remains fully resolved. She would like to restart Lamictal which she says was very helpful in the past for both mood and PTSD symptoms. Patient reports some chest pain on inhalation only but denies any other symptoms; she will alert staff if anything changes; O2 sat within normal limits and patient afebrile. Nursery Supervisor will consult hospitalist to see if there is any other recommendations given patient's report. -regarding patient's antiphospholipid syndrome and theoretical increased risk for clotting while COVID positive, Nursery Supervisor called and discussed case with Dr. Casiano, director of finance/oncologist who explained current recommendations and recommends continuing patient on home dose of enoxaparin without need to increase dose or add another anticoagulant either during admission or post discharge. 06/26 patient stabilizing; depression resolved and no SI. Patient continues to have much anxiety and thus keeps to herself in the milieu. Patient had been started on mirtazapine however she has decided against this given its potential for weight gain and prefers to a trial of Prozac; side effects lacks risks discussed and patient agrees to continue with trial given that she is on Abilify and Seroquel which are mood stabilizing making triggering to sussy a low risk; she is also being titrated on Lamictal. Patient is hoping for a CSS program. PLAN: CV Q 15 minute checks for safety COVID positive: -Currently in isolation room -reports some chest pain on inhalation only; denies any other symptoms -vitals WNL Depression/AnxietyPTSD/substance abuse: IMITREX 50 MG P.O. 1 TIME DOSE FOR MIGRAINE Continue to titrate Lamictal 25mg; titrate according to recommended schedule for PTSD and mood stability; patient has been on in the past and reports was helpful ContinueAbilify a 7.5 mg daily Continue Clonidine 0.1 mg tid but make it PRN INCREASED TO Hydroxyzine 75 mg q.6 p.r.n. Methadone CONTINUE Prozac 10 mg for anxiety and PTSD; however may have caused migraines; will give it another day to see if tolerable DC mirtazapine; patient wants to avoid potential for weight gain Continue Prazosin 1 mg q.h.s. Continue Seroquel 300 mg q.h.s. Continue Seroquel 25 mg b.i.d. p.r.n. for anxiety Continue Topamax 100 mg b.i.d. for mood and headache (normally 200mg BiD but in Apr 2021, decreased to 100 mg BID at [facility] due to GERRI) -Patient is asking for program post discharge; SW will review options Lower left limb Cellulitis and UTI (MRSA UTI and MRSA/MSSA Cellulitis) Doxycycline 100 mg b.i.d. for 7 days Keflex 500 mg q.i.d. for 7 days -case discussed with ED physician Dr. Jaffe who recommends above regimen (MRSA grown in urine) Rule out: HERSON NO Seizure disorder: Patient explains history and denies any history of seizure at all other than 1 time when she was 14 years old following of vasculitis/stroke. -She was seen at [facility] on 03/14/21 and started on keppra 750 mg BID for seizures but has been non-adherent with medication since relapse. -had been on dilantin for seizures, which had been stopped for about 10 yrs due to not having any seizures. -Pt reports last had a seizure in Apr 2021; however denies being diagnosed with epilepsy or pseudoseizures, not sure how long they last but they are frank c/clonic in nature, sometimes has an aura and remember them, she does not have a current neurologist.? Antiphospholipid syndrome: -Enoxaparin -will consult hospitalist to see if COVID + status increases risk for blood clots and potential need for additional anticoagulation Hypertension: Amlodipine Past hx recorded on 05/09/21 admission note: -fall 2020 admitted to the [facility] for MRSA bacteremia/bilateral empyema status post chest tube placement; subsequently chest tube was removed; echocardiogram done which showed no evidence of vegetations, MRI of the lumbar spine with no evidence of epidural abscess; and sent to rehab via to finish antibiotics via Port-A-Cath until 02/13/2021; pt left AMA -admitted to [facility] on 02/14/21 due to sepsis, aspiration pneumonia as well as fungemia; discharged to [facility] in [place] on lovenox, as she preferred this to warfarin. -She was recently seen at [facility] on 03/14/21 and started on keppra 750 mg BID for seizures but has been non-adherent with medication since relapse. -had been on dilantin for seizures, which had been stopped for about 10 yrs due to not having any seizures. -Pt reports last had a seizure in Apr 2021; however denies being diagnosed with epilepsy or pseudoseizures, not sure how long they last but they are tonic/clonic in nature, sometimes has an aura and remember them, she does not have a current neurologist.? -was on anticoagulation and 2015; anticoagulation was discontinued post menorrhagia in 2014 and reportedly has not had any blood clots since then; 06/21/21 Pt reporting sore throat, anxiety, depression. 1. Throat culture, throat spray, drops for discomfort 2. Seroquel 50 mg bid to assist with anxiety mgt during Lamictal titration 3. Remeron 7.5 mg HS MRX1 during Lamictal titration I spent minutes with the patient and/or on the patient floor today, greater than?50% of which was spent counseling/coordinating care. Reason for contiued inpatient stay Substantial Risk for: rapid decompensation
[2021-06-27] MEDS: SUMAtriptan succinate 50 MG TABLET PO (17:13)
[2021-06-27 20:10] VITALS: BP 111/68; PULSE 59
[2021-06-27] MEDS: Prazosin HCL 1 MG CAPSULE PO (20:21)
[2021-06-27] MEDS: Enoxaparin Sodium 40 MG/0.4 ML SYRINGE SUBCUT (20:22)
[2021-06-27] MEDS: QUEtiapine Fumarate 300 MG TABLET PO (20:22)
[2021-06-28 06:00] VITALS: BP 115/66; PULSE 79; TEMP 36.6; O2SAT 97
[2021-06-28] MEDS: lamoTRIgine 25 MG TABLET PO (08:26)
[2021-06-28] MEDS: Gabapentin 100 MG CAPSULE 200 MG PO ×3 (08:26→21:32)
[2021-06-28] MEDS: FLUoxetine HCl 10 MG CAPSULE PO (08:26)
[2021-06-28] MEDS: ARIPiprazole 5 MG TABLET 7.5 MG PO (08:27)
[2021-06-28] MEDS: amLODIPine Besylate 10 MG TABLET PO (08:27)
[2021-06-28] MEDS: QUEtiapine Fumarate 50 MG TABLET PO ×2 (08:27→21:32)
[2021-06-28] MEDS: Multivitamin TABLET 1 TAB PO (08:27)
[2021-06-28] MEDS: Topiramate 100 MG TABLET PO ×2 (08:27→21:32)
[2021-06-28] MEDS: Thiamine HCL 100 MG TABLET PO (08:27)
[2021-06-28] MEDS: methADONE HCl 20 MG/2 ML ORAL.CONC 100 MG PO (08:30)
[2021-06-28] MEDS: cloNIDine HCL 0.1 MG TABLET PO (09:09)
[2021-06-28] MEDS: Cyanocobalamin (Vitamin B-12) 100 MCG TABLET PO (09:10)
[2021-06-28] MEDS: Acetaminophen 325 MG TABLET 650 MG PO (09:19)
--- NOTE | 2021-06-28 09:58 | P.PNPSI_ITS ---
Subjective Subjective Date of Service: 06/28/21 Reason For Visit: depression with SI, opiate use disorder-severe on Interim History: pt reports migraine resolved yesterday with Imitrex, but after she took prozac it returned again today. Agrees to DC prozac, let migraine resolve and then c onsider re-trial of mirtazapine (she thinks maybe reisk of wt gain not too big a deal). Review of Systems Constitutional: Reports headache(s) Reports headache(s) Reports headache(s) Mental Status Exam Mental Status Exam Narrative: Pt is alert and oriented; behavior is cooperative and calm; dressed in casual attire, adequately groomed; numerous scratch karen/lesions on face healing well; mood is described as ok and affect congruent;? eye contact appropriate; Speech is normal rate, volume and prosody and not pressured; no psychomotor agitation/ retardation present; thought process linear and goal directed; Thought content is on tx; otherwise pertinent to relevant topics and without any delusional content, paranoid ideations or grandiosity; denies any SI/HI. There is no evidence of perceptual disturbance. ?Patients insight and judgment are fair Diagnostics Vital Signs (24Hr): Vital Signs - 24 hr 06/27/21 20:10 06/28/21 06:00 Temperature 97.8 F Pulse Rate 59 79 Blood Pressure 111/68 115/66 Pulse Oximetry 97 BMI result Verd[place] 4 Body Mass Index Verdana 4 20.2 Verdana 4 Verdana 4 Labs Results: 06/18/21 15:01 06/18/21 15:01 Imaging Radiology Impressions: ITS Impressions Chest X-Ray 06/20/21 20:55 IMPRESSION: Low inspiratory effort radiograph. No acute abnormality of the chest. Medications Medications Current Medications Acetaminophen (Acetaminophen 325 Mg Tablet) 650 mg PO Q6H PRN PRN Reason: Headache/Pain Mild Scale (1-3) Last Admin: 06/28/21 09:19 Dose: 650 mg Documented by: Al Hydroxide/Mg Hydroxide (Magnesium Hydrox/Alum Hydrox 30 Ml Oral.Susp) 30 ml PO Q6H PRN PRN Reason: Heartburn/Nausea Amlodipine Besylate (Amlodipine Besylate 10 Mg Tablet) 10 mg PO DAILY [facility]; Protocol Last Admin: 06/28/21 08:27 Dose: 10 mg Documented by: Aripiprazole (Aripiprazole 5 Mg Tablet) 7.5 mg PO DAILY [facility] Last Admin: 06/28/21 08:27 Dose: 7.5 mg Documented by: Benzocaine (Throat Lozenge, Medicated Lozenge) 1 lozenge MUCOUS MEM Q2H PRN PRN Reason: Sore Throat Last Admin: 06/26/21 15:24 Dose: 1 lozenge Documented by: Clonidine HCl (Clonidine Hcl 0.1 Mg Tablet) 0.1 mg PO TID PRN; Protocol PRN Reason: anxiety Last Admin: 06/28/21 09:09 Dose: 0.1 mg Documented by: Cyanocobalamin (Cyanocobalamin (Vitamin B-12) 100 Mcg Tablet) 100 mcg PO DAILY [facility] Last Admin: 06/28/21 09:10 Dose: 100 mcg Documented by: Enoxaparin Sodium (Enoxaparin Sodium 40 Mg/0.4 Ml Syringe) 40 mg SUBCUT Q24H [facility] Last Admin: 06/27/21 20:22 Dose: 40 mg Documented by: Fluoxetine HCl (Fluoxetine Hcl 10 Mg Capsule) 10 mg PO DAILY [facility] Last Admin: 06/28/21 08:26 Dose: 10 mg Documented by: Gabapentin (Gabapentin 100 Mg Capsule) 200 mg PO TID [facility] Last Admin: 06/28/21 08:26 Dose: 200 mg Documented by: Hydroxyzine HCl (Hydroxyzine Hcl 25 Mg Tablet) 75 mg PO Q6H PRN PRN Reason: Anxiety Last Admin: 06/27/21 14:29 Dose: 75 mg Documented by: Lamotrigine (Lamotrigine 25 Mg Tablet) 25 mg PO DAILY [facility] Last Admin: 06/28/21 08:26 Dose: 25 mg Documented by: Magnesium Hydroxide (Milk Of Magnesia 30 Ml Oral.Susp) 30 ml PO DAILY PRN PRN Reason: Constipation Last Admin: 06/25/21 09:40 Dose: 30 ml Documented by: Methadone HCl (Methadone Hcl 20 Mg/2 Ml Oral.Conc) 100 mg PO DAILY [facility] Last Admin: 06/28/21 08:30 Dose: 100 mg Documented by: Multi-Ingred Medicated Throat [place] (Throat [place], Medicated 20 Ml Bottle) 1 spray MUCOUS MEM Q2H PRN PRN Reason: Sore Throat Multivitamins/Vitamin C (Multivitamin Tablet) 1 tab PO DAILY [facility] Last Admin: 06/28/21 08:27 Dose: 1 tab Documented by: Nicotine (Nicotine 21 Mg Patch.Td24) 21 mg TRANSDERMA DAILY [facility] Last Admin: 06/28/21 09:11 Dose: Not Given Documented by: Pharmacy Consult (Consult Rx Perform Med Rec) 1 each MISCELLANE ONCE PRN PRN Reason: Consult order Prazosin HCl (Prazosin Hcl 1 Mg Capsule) 1 mg PO BEDTIME [facility]; Protocol Last Admin: 06/27/21 20:21 Dose: 1 mg Documented by: Quetiapine Fumarate (Quetiapine Fumarate 300 Mg Tablet) 300 mg PO BEDTIME [facility] Last Admin: 06/27/21 20:22 Dose: 300 mg Documented by: Quetiapine Fumarate (Quetiapine Fumarate 25 Mg Tablet) 25 mg PO BID PRN PRN Reason: anxiety Last Admin: 06/27/21 16:35 Dose: 25 mg Documented by: Quetiapine Fumarate (Quetiapine Fumarate 50 Mg Tablet) 50 mg PO BID [facility] Last Admin: 06/28/21 08:27 Dose: 50 mg Documented by: Thiamine HCl (Thiamine Hcl 100 Mg Tablet) 100 mg PO DAILY [facility] Last Admin: 06/28/21 08:27 Dose: 100 mg Documented by: Topiramate (Topiramate 100 Mg Tablet) 100 mg PO BID [facility] Last Admin: 06/28/21 08:27 Dose: 100 mg Documented by: Allergies Allergies Allergy/AdvReac Type Severity Reaction Status Date / Time bee pollen [BEE Allergy Severe Anaphylaxis Verified 02/27/21 06:54 STINGS] codeine [CODEINE] Allergy Severe ANAPHYLAXIS Verified 02/27/21 06:54 Iodinated Contrast Allergy Severe DIFFICULTY Verified 02/27/21 06:54 Media [IV DYE, IODINE BREATHING CONTAINING CONTRAST ] nut - unspecified Allergy Intermediate Rash Verified 02/27/21 06:54 [nut] shellfish derived Allergy Intermediate Rash Verified 02/27/21 06:54 Sulfa (Sulfonamide Allergy Unknown ANAPHYLAXIS Verified 02/27/21 06:54 Antibiotics) [SULFA (SULFONAMIDE ANTIBIOTICS)] Assessment & Plan Assessment & Plan (1) MDD (major depressive disorder), recurrent episode, moderate: Status: Acute Code(s): F33.1 - Major depressive disorder, recurrent, moderate (2) PTSD (post-traumatic stress disorder): Status: Acute Code(s): F43.10 - Post-traumatic stress disorder, unspecified (3) Antiphospholipid antibody syndrome: Status: Acute Code(s): D68.61 - Antiphospholipid syndrome (4) Antiphospholipid antibody positive: Status: Acute Code(s): R76.0 - Raised antibody titer (5) UTI (urinary tract infection): Status: Acute Code(s): N39.0 - Urinary tract infection, site not specified (6) Cellulitis and abscess of left lower extremity: Status: Acute Code(s): L03.116 - Cellulitis of left lower limb; L02.416 - Cutaneous abscess of left lower limb (7) Hypertension: Status: Acute Code(s): I10 - Essential (primary) hypertension (8) Opioid use disorder, severe, dependence: Status: Acute Code(s): F11.20 - Opioid dependence, uncomplicated (9) Cocaine use disorder: Status: Acute Code(s): F14.10 - Cocaine abuse, uncomplicated Plan IMPRESSION: 40-year-old female with a past medical history of IV drug abuse, PTSD, Bipolar disorder, antiphospholipid syndrome complicated by CVA, multiple DVT/PE status post IVC filter, HTN, CKD stage III, hep C. (r/o HERSON). Patient presents after recent discharge from [facility] this past May 2021 in the face of a relapse, overwhelming anxiety, depression and then suicidal ideation with thoughts to overdose. Patient reports she has been adherent with her medication regimen, which she knows by names and doses. Patient brought to ED by friend. Patient reports that suicidality was sudden and the thought impulsive. She denies any preceding intent or plans and reports that SI has now resolved. Patient said she feels she probably needs an aftercare program to help stabilize longer-term. Patient denies any AVH and does not know why that was mentioned. Patient was found to be COVID positive on admission; also with cellulitis on left lower leg and UTI started on antibiotics. -admit for safety and stabilization 06/20 patient reports depression remains but SI remains fully resolved. She would like to restart Lamictal which she says was very helpful in the past for both mood and PTSD symptoms. Patient reports some chest pain on inhalation only but denies any other symptoms; she will alert staff if anything changes; O2 sat within normal limits and patient afebrile. Seasonal Sales Associate will consult hospitalist to see if there is any other recommendations given patient's report. -regarding patient's antiphospholipid syndrome and theoretical increased risk for clotting while COVID positive, Seasonal Sales Associate called and discussed case with Dr. Casiano, jacquard twine polisher operator/oncologist who explained current recommendations and recommends continuing patient on home dose of enoxaparin without need to increase dose or add another anticoagulant either during admission or post discharge. 06/26 patient stabilizing; depression resolved and no SI. Patient continues to have much anxiety and thus keeps to herself in the milieu. Patient had been started on mirtazapine however she has decided against this given its potential for weight gain and prefers to a trial of Prozac; side effects lacks risks discussed and patient agrees to continue with trial given that she is on Abilify and Seroquel which are mood stabilizing making triggering to sussy a low risk; she is also being titrated on Lamictal. Patient is hoping for a CSS program. 06/28 stabilizing; no depression or SI; anxiety problem; trial of prozac causing migraines. PLAN: CV Q 15 minute checks for safety COVID positive: -Currently in isolation room -reports some chest pain on inhalation only; denies any other symptoms -vitals WNL Depression/AnxietyPTSD/substance abuse: IMITREX 50 MG P.O. 1 PRN FOR MIGRAINE Continue to titrate Lamictal 25mg; titrate according to recommended schedule for PTSD and mood stability; patient has been on in the past and reports was helpful ContinueAbilify a 7.5 mg daily Continue Clonidine 0.1 mg tid but make it PRN INCREASED TO Hydroxyzine 75 mg q.6 p.r.n. Methadone DC Prozac caused migraines; Reconsider mirtazapine; patient wants to avoid potential for weight gain but maybe willing to tolerate Continue Prazosin 1 mg q.h.s. Continue Seroquel 300 mg q.h.s. Continue Seroquel 25 mg b.i.d. p.r.n. for anxiety Continue Topamax 100 mg b.i.d. for mood and headache (normally 200mg BiD but in Apr 2021, decreased to 100 mg BID at [facility] due to GERRI) -Patient is asking for program post discharge; SW will review options Lower left limb Cellulitis and UTI (MRSA UTI and MRSA/MSSA Cellulitis) Doxycycline 100 mg b.i.d. for 7 days Keflex 500 mg q.i.d. for 7 days -case discussed with ED physician Dr. Jaffe who recommends above regimen (MRSA grown in urine) Rule out: HERSON NO Seizure disorder: Patient explains history and denies any history of seizure at all other than 1 time when she was 14 years old following of vasculitis/stroke. -She was seen at [facility] on 03/14/21 and started on keppra 750 mg BID for seizures but has been non-adherent with medication since relapse. -had been on dilantin for seizures, which had been stopped for about 10 yrs due to not having any seizures. -Pt reports last had a seizure in Apr 2021; however denies being diagnosed with epilepsy or pseudoseizures, not sure how long they last but they are tonic/clonic in nature, sometimes has an aura and remember them, she does not have a current neurologist.? Antiphospholipid syndrome: -Enoxaparin -will consult hospitalist to see if COVID + status increases risk for blood clots and potential need for additional anticoagulation Hypertension: Amlodipine Past hx recorded on 05/09/21 admission note: -fall 2020 admitted to the [facility] for MRSA bacteremia/bilateral empyema status post chest tube placement; subsequently chest tube was removed; echocardiogram done which showed no evidence of vegetations, MRI of the lumbar spine with no evidence of epidural abscess; and sent to rehab via to finish antibiotics via Port-A-Cath until 02/13/2021; pt left AMA -admitted to [facility] on 02/14/21 due to sepsis, aspiration pneumonia as well as fungemia; discharged to [facility] in [place] on lovenox, as she preferred this to warfarin. -She was recently seen at [facility] on 03/14/21 and started on keppra 750 mg BID for seizures but has been non-adherent with medication since relapse. -had been on dilantin for seizures, which had been stopped for about 10 yrs due to not having any seizures. -Pt reports last had a seizure in Apr 2021; however denies being diagnosed with epilepsy or pseudoseizures, not sure how long they last but they are tonic/clonic in nature, sometimes has an aura and remember them, she does not have a current neurologist.? -was on anticoagulation and 2015; anticoagulation was discontinued post menorrhagia in 2014 and reportedly has not had any blood clots since then; 06/21/21 Pt reporting sore throat, anxiety, depression. 1. Throat culture, throat spray, drops for discomfort 2. Seroquel 50 mg bid to assist with anxiety mgt during Lamictal titration 3. Remeron 7.5 mg HS MRX1 during Lamictal titration I spent minutes with the patient and/or on the patient floor today, greater than?50% of which was spent counseling/coordinating care. Reason for contiued inpatient stay Substantial Risk for: rapid decompensation
[2021-06-28] MEDS: hydrOXYzine HCL 25 MG TABLET 75 MG PO (12:28)
[2021-06-28] MEDS: SUMAtriptan succinate 100 MG TABLET PO (14:15)
--- NOTE | 2021-06-28 14:55 | MHC.RECOVRN ---
Met with pt this morning after pt requested to speak with t/w. Pt reports having continued with the OTP since we last spoke and is currently receiving 100 mg methadone daily. Pt would like to increase dose, reports feeling stable at 165 mg. Pt does not appear to be experiencing any withdrawal, rather, pt appears lethargic. Pt will f/u with OTP regarding increasing dose. Pt reports placement has been secured at [facility] upon discharge from [facility] and has appt scheduled on 07/16 for interview with Ash Tony. Pt looking forward to next steps in recovery. Discussed with Cecy Espino APRN.
[2021-06-28 21:25] VITALS: BP 120/64; PULSE 75
[2021-06-28] MEDS: LORazepam 0.5 MG TABLET PO (21:32)
[2021-06-28] MEDS: QUEtiapine Fumarate 300 MG TABLET PO (21:32)
[2021-06-28] MEDS: Enoxaparin Sodium 40 MG/0.4 ML SYRINGE SUBCUT (21:32)
[2021-06-28] MEDS: Prazosin HCL 1 MG CAPSULE PO (21:32)
[2021-06-29 08:45] VITALS: BP 119/80; PULSE 77
[2021-06-29] MEDS: Acetaminophen 325 MG TABLET 650 MG PO (08:50)
[2021-06-29] MEDS: Gabapentin 100 MG CAPSULE 200 MG PO ×3 (08:51→21:13)
[2021-06-29] MEDS: LORazepam 0.5 MG TABLET PO ×2 (08:52→18:22)
[2021-06-29] MEDS: ARIPiprazole 5 MG TABLET 7.5 MG PO (08:52)
[2021-06-29] MEDS: lamoTRIgine 25 MG TABLET PO (08:52)
[2021-06-29] MEDS: amLODIPine Besylate 10 MG TABLET PO (08:52)
[2021-06-29] MEDS: Cyanocobalamin (Vitamin B-12) 100 MCG TABLET PO (08:52)
[2021-06-29] MEDS: methADONE HCl 20 MG/2 ML ORAL.CONC 100 MG PO (08:55)
[2021-06-29] MEDS: QUEtiapine Fumarate 50 MG TABLET PO ×2 (12:01→21:13)
[2021-06-29] MEDS: Multivitamin TABLET 1 TAB PO (12:01)
[2021-06-29] MEDS: cloNIDine HCL 0.1 MG TABLET PO (12:01)
[2021-06-29] MEDS: Thiamine HCL 100 MG TABLET PO (12:01)
[2021-06-29] MEDS: Topiramate 100 MG TABLET PO ×2 (12:01→21:13)
[2021-06-29] MEDS: Nicotine 21 MG PATCH.TD24 TRANSDERMA (12:01)
[2021-06-29] MEDS: hydrOXYzine HCL 25 MG TABLET 75 MG PO (16:05)
[2021-06-29 18:00] VITALS: BP 101/64; PULSE 73; RESP 16; TEMP 36.3
--- NOTE | 2021-06-29 19:37 | P.PNPSI_ITS ---
Subjective Subjective Date of Service: 06/29/21 Reason For Visit: depression with SI, opiate use disorder-severe on Interim History: Reports her anxiety improved. Denies SI. She is tolerating medications. She appeared to be nodding while in a group when observed. She denies feeling sedate d. She reports the cellulitis on her leg is better, however, she notes an indurated area where the cellulitis was and it is draining pussy fluid. Erythema and swelling about 1.5 inch in diameter on right calf. Review of Systems Acute medical concerns: Yes Review of Systems Review of Systems Yes all other systems are reviewed and are negative Constitutional: Reports as per HPI, Reports chills (denies), Reports fever(s) (denies chills) and Reports headache(s) Eyes: Reports as per HPI and Reports no additional eye complaints Reports system reviewed and no additional complaints, except as documented, Reports as per HPI, Reports headache(s), Denies nasal congestion, Reports nasal discharge (denies) and Reports sore throat Cardiovascular: Reports as per HPI, Denies chest pain and Denies dyspnea Respiratory: Reports as per HPI, Denies cough and Denies dyspnea Gastrointestinal: Reports as per HPI, Denies abdominal pain, Denies diarrhea and Denies vomiting Musculoskeletal: Reports no additional musculoskeletal complaints and Denies numbness Skin/Breast: Reports as per HPI and Denies rash Reports as per HPI, Reports headache(s), Denies focal weakness, Denies numbness and Denies Sensory deficit (Neuro) Psychiatric: Reports as per HPI, Reports anxiety, Reports depression, Reports difficulty concentrating, Reports hopelessness and Reports suicidal ideation Endocrine: Reports no additional endocrine complaints and Reports as per HPI Hematologic/Lymphatic: Reports no additional hematologic/lymphatic complaints, Reports as per HPI and Reports other (No peripheral edema) Mental Status Exam Mental Status Exam Narrative: Pt is alert and oriented; behavior is cooperative and calm; dressed in casual attire, adequately groomed; numerous scratch karen/lesions on face healing well; mood is described as ok and affect congruent;? eye contact appropriate; Speech is normal rate, volume and prosody and not pressured; no psychomotor agitation/retardation present; thought process linear and goal directed; Thought content is on tx; otherwise pertinent to relevant topics and without any delusional content, paranoid ideations or grandiosity; denies any SI/HI. There is no evidence of perceptual disturbance. ?Patients insight and judgment are fair Patient Appearance: Appropriate Patient Orientation: Person, Place, Time and Situation Level of Consciousness: Alert Patient Behavior: Appropriate and Good Eye Contact Mood Description: Depressed and Anxious Affect Description: Flat Patient Cognition Impaired: No Ability to Follow Directions: Excellent Speech Pattern: Spontaneous Speech Memory Description: Intact Diagnostics Vital Signs (24Hr): Vital Signs - 24 hr 06/28/21 21:25 06/29/21 08:45 Pulse Rate 75 77 Blood Pressure 120/64 119/80 BMI result Verdana 4 Body Mass Index Verdana 4 20.2 Verdana 4 Verdana 4 Labs Results: 06/18/21 15:01 06/18/21 15:01 Imaging Radiology Impressions: ITS Impressions Chest X-Ray 06/20/21 20:55 IMPRESSION: Low inspiratory effort radiograph. No acute abnormality of the chest. Medications Medications Current Medications Acetaminophen (Acetaminophen 325 Mg Tablet) 650 mg PO Q6H PRN PRN Reason: Headache/Pain Mild Scale (1-3) Last Admin: 06/29/21 08:50 Dose: 650 mg Documented by: Al Hydroxide/Mg Hydroxide (Magnesium Hydrox/Alum Hydrox 30 Ml Oral.Susp) 30 ml PO Q6H PRN PRN Reason: Heartburn/Nausea Amlodipine Besylate (Amlodipine Besylate 10 Mg Tablet) 10 mg PO DAILY SOPHIE; Protocol Last Admin: 06/29/21 08:52 Dose: 10 mg Documented by: Aripiprazole (Aripiprazole 5 Mg Tablet) 7.5 mg PO DAILY SOPHIE Last Admin: 06/29/21 08:52 Dose: 7.5 mg Documented by: Benzocaine (Throat Lozenge, Medicated Lozenge) 1 lozenge MUCOUS MEM Q2H PRN PRN Reason: Sore Throat Last Admin: 06/26/21 15:24 Dose: 1 lozenge Documented by: Clonidine HCl (Clonidine Hcl 0.1 Mg Tablet) 0.1 mg PO TID PRN; Protocol PRN Reason: anxiety Last Admin: 06/29/21 12:01 Dose: 0.1 mg Documented by: Cyanocobalamin (Cyanocobalamin (Vitamin B-12) 100 Mcg Tablet) 100 mcg PO DAILY [facility] Last Admin: 06/29/21 08:52 Dose: 100 mcg Documented by: Enoxaparin Sodium (Enoxaparin Sodium 40 Mg/0.4 Ml Syringe) 40 mg SUBCUT Q24H [facility] Last Admin: 06/28/21 21:32 Dose: 40 mg Documented by: Gabapentin (Gabapentin 100 Mg Capsule) 200 mg PO TID [facility] Last Admin: 06/29/21 15:52 Dose: 200 mg Documented by: Hydroxyzine HCl (Hydroxyzine Hcl 25 Mg Tablet) 75 mg PO Q6H PRN PRN Reason: Anxiety Last Admin: 06/29/21 16:05 Dose: 75 mg Documented by: Lamotrigine (Lamotrigine 25 Mg Tablet) 25 mg PO DAILY [facility] Last Admin: 06/29/21 08:52 Dose: 25 mg Documented by: Lorazepam (Lorazepam 0.5 Mg Tablet) 0.5 mg PO BID PRN PRN Reason: Anxiety Last Admin: 06/29/21 18:22 Dose: 0.5 mg Documented by: Magnesium Hydroxide (Milk Of Magnesia 30 Ml Oral.Susp) 30 ml PO DAILY PRN PRN Reason: Constipation Last Admin: 06/25/21 09:40 Dose: 30 ml Documented by: Methadone HCl (Methadone Hcl 20 Mg/2 Ml Oral.Conc) 100 mg PO DAILY [facility] Last Admin: 06/29/21 08:55 Dose: 100 mg Documented by: Multi-Ingred Medicated Throat [place] (Throat [place], Medicated 20 Ml Bottle) 1 spray MUCOUS MEM Q2H PRN PRN Reason: Sore Throat Multivitamins/Vitamin C (Multivitamin Tablet) 1 tab PO DAILY [facility] Last Admin: 06/29/21 12:01 Dose: 1 tab Documented by: Nicotine (Nicotine 21 Mg Patch.Td24) 21 mg TRANSDERMA DAILY [facility] Last Admin: 06/29/21 12:01 Dose: 21 mg Documented by: Pharmacy Consult (Consult Rx Perform Med Rec) 1 each MISCELLANE ONCE PRN PRN Reason: Consult order Prazosin HCl (Prazosin Hcl 1 Mg Capsule) 1 mg PO BEDTIME [facility]; Protocol Last Admin: 06/28/21 21:32 Dose: 1 mg Documented by: Quetiapine Fumarate (Quetiapine Fumarate 300 Mg Tablet) 300 mg PO BEDTIME [facility] Last Admin: 06/28/21 21:32 Dose: 300 mg Documented by: Quetiapine Fumarate (Quetiapine Fumarate 25 Mg Tablet) 25 mg PO BID PRN PRN Reason: anxiety Last Admin: 06/27/21 16:35 Dose: 25 mg Documented by: Quetiapine Fumarate (Quetiapine Fumarate 50 Mg Tablet) 50 mg PO BID [facility] Last Admin: 06/29/21 12:01 Dose: 50 mg Documented by: Sumatriptan Succinate (Sumatriptan Succinate 100 Mg Tablet) 100 mg PO DAILY MRX1 PRN PRN Reason: Migraine Headache Last Admin: 06/28/21 14:15 Dose: 100 mg Documented by: Thiamine HCl (Thiamine Hcl 100 Mg Tablet) 100 mg PO DAILY [facility] Last Admin: 06/29/21 12:01 Dose: 100 mg Documented by: Topiramate (Topiramate 100 Mg Tablet) 100 mg PO BID [facility] Last Admin: 06/29/21 12:01 Dose: 100 mg Documented by: Allergies Allergies Allergy/AdvReac Type Severity Reaction Status Date / Time bee pollen [BEE Allergy Severe Anaphylaxis Verified 02/27/21 06:54 STINGS] codeine [CODEINE] Allergy Severe ANAPHYLAXIS Verified 02/27/21 06:54 Iodinated Contrast Allergy Severe DIFFICULTY Verified 02/27/21 06:54 Media [IV DYE, IODINE BREATHING CONTAINING CONTRAST ] nut - unspecified Allergy Intermediate Rash Verified 02/27/21 06:54 [nut] shellfish derived Allergy Intermediate Rash Verified 02/27/21 06:54 Sulfa (Sulfonamide Allergy Unknown ANAPHYLAXIS Verified 02/27/21 06:54 Antibiotics) [SULFA (SULFONAMIDE ANTIBIOTICS)] Assessment & Plan Assessment & Plan (1) MDD (major depressive disorder), recurrent episode, moderate: Status: Acute Code(s): F33.1 - Major depressive disorder, recurrent, moderate (2) PTSD (post-traumatic stress disorder): Status: Acute Code(s): F43.10 - Post-traumatic stress disorder, unspecified (3) Antiphospholipid antibody syndrome: Status: Acute Code(s): D68.61 - Antiphospholipid syndrome (4) Antiphospholipid antibody positive: Status: Acute Code(s): R76.0 - Raised antibody titer (5) UTI (urinary tract infection): Status: Acute Code(s): N39.0 - Urinary tract infection, site not specified (6) Cellulitis and abscess of left lower extremity: Status: Acute Code(s): L03.116 - Cellulitis of left lower limb; L02.416 - Cutaneous abscess of left lower limb Assessment and Plan: 1/29: Asked surgery to see for possible I&D. (7) Hypertension: Status: Acute Code(s): I10 - Essential (primary) hypertension (8) Opioid use disorder, severe, dependence: Status: Acute Code(s): F11.20 - Opioid dependence, uncomplicated (9) Cocaine use disorder: Status: Acute Code(s): F14.10 - Cocaine abuse, uncomplicated Plan IMPRESSION: 40-year-old female with a past medical history of IV drug abuse, PTSD, Bipolar disorder, antiphospholipid syndrome complicated by CVA, multiple DVT/PE status post IVC filter, HTN, CKD stage III, hep C. (r/o HERSON). Patient presents after recent discharge from [facility] this past May 2021 in the face of a relapse, overwhelming anxiety, depression and then suicidal ideation with thoughts to overdose. Patient reports she has been adherent with her medication regimen, which she knows by names and doses. Patient brought to ED by friend. Patient reports that suicidality was sudden and the thought impulsive. She denies any preceding intent or plans and reports that SI has now resolved. Patient said she feels she probably needs an aftercare program to help stabilize longer-term. Patient denies any AVH and does not know why that was mentioned. Patient was found to be COVID positive on admission; also with cellulitis on left lower leg and UTI started on antibiotics. -admit for safety and stabilization 06/20 patient reports depression remains but SI remains fully resolved. She would like to restart Lamictal which she says was very helpful in the past for both mood and PTSD symptoms. Patient reports some chest pain on inhalation only but denies any other symptoms; she will alert staff if anything changes; O2 sat within normal limits and patient afebrile. Field Checker will consult hospitalist to see if there is any other recommendations given patient's report. -regarding patient's antiphospholipid syndrome and theoretical increased risk for clotting while COVID positive, Field Checker called and discussed case with Dr. Casiano, final dressing cutter/oncologist who explained current recommendations and recommends continuing patient on home dose of enoxaparin without need to increa se dose or add another anticoagulant either during admission or post discharge. 06/26 patient stabilizing; depression resolved and no SI. Patient continues to have much anxiety and thus keeps to herself in the milieu. Patient had been started on mirtazapine however she has decided against this given its potential for weight gain and prefers to a trial of Prozac; side effects lacks risks discussed and patient agrees to continue with trial given that she is on Abilify and Seroquel which are mood stabilizing making triggering to susys a low risk; she is also being titrated on Lamictal. Patient is hoping for a CSS program. 06/28 stabilizing; no depression or SI; anxiety problem; trial of prozac causing migraines. PLAN: CV Q 15 minute checks for safety Depression/AnxietyPTSD/substance abuse: IMITREX 50 MG P.O. 1 PRN FOR MIGRAINE Continue to titrate Lamictal 25mg; titrate according to recommended schedule for PTSD and mood stability; patient has been on in the past and reports was helpful ContinueAbilify a 7.5 mg daily Continue Clonidine 0.1 mg tid but make it PRN INCREASED TO Hydroxyzine 75 mg q.6 p.r.n. Methadone DC Prozac caused migraines; Reconsider mirtazapine; patient wants to avoid potential for weight gain but maybe willing to tolerate Continue Prazosin 1 mg q.h.s. Continue Seroquel 300 mg q.h.s. Continue Seroquel 25 mg b.i.d. p.r.n. for anxiety Continue Topamax 100 mg b.i.d. for mood and headache (normally 200mg BiD but in Apr 2021, decreased to 100 mg BID at [facility] due to GERRI) -Patient is asking for program post discharge; SW will review options Lower left limb Cellulitis and UTI (MRSA UTI and MRSA/MSSA Cellulitis) Doxycycline 100 mg b.i.d. for 7 days. Finished. Keflex 500 mg q.i.d. for 7 days -case discussed with ED physician Dr. Jaffe who recommends above regimen (MRSA grown in urine) Rule out: HERSON NO Seizure disorder: Patient explains history and denies any history of seizure at all other than 1 time when she was 14 years old following of vasculitis/stroke. -She was seen at [facility] on 03/14/21 and started on keppra 750 mg BID for seizures but has been non-adherent with medication since relapse. -had been on dilantin for seizures, which had been stopped for about 10 yrs due to not having any seizures. -Pt reports last had a seizure in Apr 2021; however denies being diagnosed with epilepsy or pseudoseizures, not sure how long they last but they are tonic/clonic in nature, sometimes has an aura and remember them, she does not have a current neurologist.? Antiphospholipid syndrome: -Enoxaparin -will consult hospitalist to see if COVID + status increases risk for blood clots and potential need for additional anticoagulation Hypertension: Amlodipine Past hx recorded on 05/09/21 admission note: -fall 2020 admitted to the [facility] for MRSA bacteremia/bilateral empyema status post chest tube placement; subsequently chest tube was removed; echocardiogram done which showed no evidence of vegetations, MRI of the lumbar spine with no evidence of epidural abscess; and sent to rehab via to finish antibiotics via Port-A-Cath until 02/13/2021; pt left AMA -admitted to [facility] on 02/14/21 due to sepsis, aspiration pneumonia as well as fungemia; discharged to [facility] in [place] on lovenox, as she preferred this to warfarin. -She was recently seen at [facility] on 03/14/21 and started on keppra 750 mg BID for seizures but has been non-adherent with medication since relapse. -had been on dilantin for seizures, which had been stopped for about 10 yrs due to not having any seizures. -Pt reports last had a seizure in Apr 2021; however denies being diagnosed with epilepsy or pseudoseizures, not sure how long they last but they are tonic/clonic in nature, sometimes has an aura and remember them, she does not have a current neurologist.? -was on anticoagulation and 2014; anticoagulation was discontinued post menorrhagia in 2014 and reportedly has not had any blood clots since then; 06/21/21 Seroquel 50 mg bid to assist with anxiety mgt during Lamictal titration 3. Remeron 7.5 mg HS MRX1 during Lamictal titration I spent minutes with the patient and/or on the patient floor today, greater than?50% of which was spent counseling/coordinating care. Reason for contiued inpatient stay Substantial Risk for: harm to self and rapid decompensation
[2021-06-29] MEDS: QUEtiapine Fumarate 300 MG TABLET PO (21:13)
[2021-06-29] MEDS: Enoxaparin Sodium 40 MG/0.4 ML SYRINGE SUBCUT (21:13)
[2021-06-29] MEDS: Prazosin HCL 1 MG CAPSULE PO (21:13)
[2021-06-30] MEDS: hydrOXYzine HCL 25 MG TABLET 75 MG PO (04:01)
[2021-06-30 08:15] VITALS: BP 132/58; PULSE 88
[2021-06-30] MEDS: Gabapentin 100 MG CAPSULE 200 MG PO ×3 (08:32→19:59)
[2021-06-30] MEDS: ARIPiprazole 5 MG TABLET 7.5 MG PO (08:32)
[2021-06-30] MEDS: Acetaminophen 325 MG TABLET 650 MG PO ×2 (08:33→17:15)
[2021-06-30] MEDS: Topiramate 100 MG TABLET PO ×2 (08:33→19:59)
[2021-06-30] MEDS: lamoTRIgine 25 MG TABLET PO (08:33)
[2021-06-30] MEDS: QUEtiapine Fumarate 50 MG TABLET PO ×2 (08:33→19:59)
[2021-06-30] MEDS: Cyanocobalamin (Vitamin B-12) 100 MCG TABLET PO (08:33)
[2021-06-30] MEDS: amLODIPine Besylate 10 MG TABLET PO (08:34)
[2021-06-30] MEDS: Multivitamin TABLET 1 TAB PO (08:34)
[2021-06-30] MEDS: Thiamine HCL 100 MG TABLET PO (08:34)
[2021-06-30] MEDS: Nicotine 21 MG PATCH.TD24 TRANSDERMA (08:35)
[2021-06-30] MEDS: methADONE HCl 20 MG/2 ML ORAL.CONC 100 MG PO (09:15)
[2021-06-30] MEDS: cloNIDine HCL 0.1 MG TABLET PO (09:15)
[2021-06-30] MEDS: LORazepam 0.5 MG TABLET PO (12:32)
[2021-06-30] MEDS: Nicotine Polacrilex 2 MG GUM 4 MG BUCCAL (14:14)
--- NOTE | 2021-06-30 16:13 | PM.PNGS ---
Subjective Subjective Date of Service: 06/30/21 Interval history: left calf feels tender and still painful, denies shooting up in the area - uses left arm to shoot up cocaine generally not her legs. denies trauma to area or bug bite that she can acknowledge. she has had MRSA in the past Physical Exam Vital Signs: Vital Signs: Last Vital Signs Temp 97.3 F 06/29/21 18:00 Pulse 73 06/29/21 18:00 Resp 16 06/29/21 18:00 BP 101/64 06/29/21 18:00 Pulse Ox 97 06/28/21 06:00 BMI result Body Mass Index 20.2 Skin: Other: left calf area with some indurated tissue about 1.5 cm around a punctate spot - not draining no erythema, little tneder but not terribly so. Objective Data Active Medications Acetaminophen (Acetaminophen 325 Mg Tablet) 650 mg PO Q6H PRN PRN Reason: Headache/Pain Mild Scale (1-3) Last Admin: 06/30/21 08:33 Dose: 650 mg Documented by: YONI Al Hydroxide/Mg Hydroxide (Magnesium Hydrox/Alum Hydrox 30 Ml Oral.Susp) 30 ml PO Q6H PRN PRN Reason: Heartburn/Nausea Amlodipine Besylate (Amlodipine Besylate 10 Mg Tablet) 10 mg PO DAILY [facility]; Protocol Last Admin: 06/30/21 08:34 Dose: 10 mg Documented by: YONI Aripiprazole (Aripiprazole 5 Mg Tablet) 7.5 mg PO DAILY [facility] Last Admin: 06/30/21 08:32 Dose: 7.5 mg Documented by: YONI Benzocaine (Throat Lozenge, Medicated Lozenge) 1 lozenge MUCOUS MEM Q2H PRN PRN Reason: Sore Throat Last Admin: 06/26/21 15:24 Dose: 1 lozenge Documented by: TIBURCIO Clonidine HCl (Clonidine Hcl 0.1 Mg Tablet) 0.1 mg PO TID PRN; Protocol PRN Reason: anxiety Last Admin: 06/30/21 09:15 Dose: 0.1 mg Documented by: YONI Cyanocobalamin (Cyanocobalamin (Vitamin B-12) 100 Mcg Tablet) 100 mcg PO DAILY [facility] Last Admin: 06/30/21 08:33 Dose: 100 mcg Documented by: YONI Doxycycline Hyclate (Doxycycline Hyclate 100 Mg Tablet) 100 mg PO Q12H [facility] Enoxaparin Sodium (Enoxaparin Sodium 40 Mg/0.4 Ml Syringe) 40 mg SUBCUT Q24H [facility] Last Admin: 06/29/21 21:13 Dose: 40 mg Documented by: JOHN Gabapentin (Gabapentin 100 Mg Capsule) 200 mg PO TID [facility] Last Admin: 06/30/21 14:14 Dose: 200 mg Documented by: YONI Hydroxyzine HCl (Hydroxyzine Hcl 25 Mg Tablet) 75 mg PO Q6H PRN PRN Reason: Anxiety Last Admin: 06/30/21 04:01 Dose: 75 mg Documented by: PYTCarlin Lamotrigine (Lamotrigine 25 Mg Tablet) 25 mg PO DAILY [facility] Last Admin: 06/30/21 08:33 Dose: 25 mg Documented by: YONI Lorazepam (Lorazepam 0.5 Mg Tablet) 0.5 mg PO BID PRN PRN Reason: Anxiety Last Admin: 06/30/21 12:32 Dose: 0.5 mg Documented by: YONI Magnesium Hydroxide (Milk Of Magnesia 30 Ml Oral.Susp) 30 ml PO DAILY PRN PRN Reason: Constipation Last Admin: 06/25/21 09:40 Dose: 30 ml Documented by: GUERDA Methadone HCl (Methadone Hcl 20 Mg/2 Ml Oral.Conc) 100 mg PO DAILY [facility] Last Admin: 06/30/21 09:15 Dose: 100 mg Documented by: YONI Multi-Ingred Medicated Throat [place] (Throat [place], Medicated 20 Ml Bottle) 1 spray MUCOUS MEM Q2H PRN PRN Reason: Sore Throat Multivitamins/Vitamin C (Multivitamin Tablet) 1 tab PO DAILY [facility] Last Admin: 06/30/21 08:34 Dose: 1 tab Documented by: YONI Nicotine (Nicotine 21 Mg Patch.Td24) 21 mg TRANSDERMA DAILY [facility] Last Admin: 06/30/21 08:35 Dose: 21 mg Documented by: YONI Nicotine Polacrilex (Nicotine Polacrilex 2 Mg Gum) 4 mg BUCCAL Q2H PRN PRN Reason: Nicotine Cravings Last Admin: 06/30/21 14:14 Dose: 4 mg Documented by: YONI Pharmacy Consult (Consult Rx Perform Med Rec) 1 each MISCELLANE ONCE PRN PRN Reason: Consult order Prazosin HCl (Prazosin Hcl 1 Mg Capsule) 1 mg PO BEDTIME [facility]; Protocol Last Admin: 06/29/21 21:13 Dose: 1 mg Documented by: JOHN Quetiapine Fumarate (Quetiapine Fumarate 300 Mg Tablet) 300 mg PO BEDTIME [facility] Last Admin: 06/29/21 21:13 Dose: 300 mg Documented by: JOHN Quetiapine Fumarate (Quetiapine Fumarate 25 Mg Tablet) 25 mg PO BID PRN PRN Reason: anxiety Last Admin: 06/27/21 16:35 Dose: 25 mg Documented by: MELISA Quetiapine Fumarate (Quetiapine Fumarate 50 Mg Tablet) 50 mg PO BID [facility] Last Admin: 06/30/21 08:33 Dose: 50 mg Documented by: YONI Sumatriptan Succinate (Sumatriptan Succinate 100 Mg Tablet) 100 mg PO DAILY MRX1 PRN PRN Reason: Migraine Headache Last Admin: 06/28/21 14:15 Dose: 100 mg Documented by: CHELSY Thiamine HCl (Thiamine Hcl 100 Mg Tablet) 100 mg PO DAILY [facility] Last Admin: 06/30/21 08:34 Dose: 100 mg Documented by: YONI Topiramate (Topiramate 100 Mg Tablet) 100 mg PO BID [facility] Last Admin: 06/30/21 08:33 Dose: 100 mg Documented by: YONI Labs CBC & Chem 7: 06/18/21 15:01 06/18/21 15:01 Procedures Date of Service Date of Service: 06/30/21 Progress Note: A&P Assessment and plan (1) Furuncle of lower leg: Status: Acute Plan 40 yea old female in with mental health issues - hx of shooting up cocaine but denies shooting in leg - has an area of induration - doubt true abscess - maybe little furuncle - not convinced it has fluid to drain at this point do qid warm compress and would cont doxy bid for another 7-10 days with her hx of MRSA. if points and drains may at that time need drainage. pt understands and agrees with plan Fall Risk Details Current Medications: Current Medications Acetaminophen (Acetaminophen 325 Mg Tablet) 650 mg PO Q6H PRN PRN Reason: Headache/Pain Mild Scale (1-3) Last Admin: 06/30/21 08:33 Dose: 650 mg Documented by: Al Hydroxide/Mg Hydroxide (Magnesium Hydrox/Alum Hydrox 30 Ml Oral.Susp) 30 ml PO Q6H PRN PRN Reason: Heartburn/Nausea Amlodipine Besylate (Amlodipine Besylate 10 Mg Tablet) 10 mg PO DAILY [facility]; Protocol Last Admin: 06/30/21 08:34 Dose: 10 mg Documented by: Aripiprazole (Aripiprazole 5 Mg Tablet) 7.5 mg PO DAILY [facility] Last Admin: 06/30/21 08:32 Dose: 7.5 mg Documented by: Benzocaine (Throat Lozenge, Medicated Lozenge) 1 lozenge MUCOUS MEM Q2H PRN PRN Reason: Sore Throat Last Admin: 06/26/21 15:24 Dose: 1 lozenge Documented by: Clonidine HCl (Clonidine Hcl 0.1 Mg Tablet) 0.1 mg PO TID PRN; Protocol PRN Reason: anxiety Last Admin: 06/30/21 09:15 Dose: 0.1 mg Documented by: Cyanocobalamin (Cyanocobalamin (Vitamin B-12) 100 Mcg Tablet) 100 mcg PO DAILY [facility] Last Admin: 06/30/21 08:33 Dose: 100 mcg Documented by: Doxycycline Hyclate (Doxycycline Hyclate 100 Mg Tablet) 100 mg PO Q12H [facility] Enoxaparin Sodium (Enoxaparin Sodium 40 Mg/0.4 Ml Syringe) 40 mg SUBCUT Q24H [facility] Last Admin: 06/29/21 21:13 Dose: 40 mg Documented by: Gabapentin (Gabapentin 100 Mg Capsule) 200 mg PO TID [facility] Last Admin: 06/30/21 14:14 Dose: 200 mg Documented by: Hydroxyzine HCl (Hydroxyzine Hcl 25 Mg Tablet) 75 mg PO Q6H PRN PRN Reason: Anxiety Last Admin: 06/30/21 04:01 Dose: 75 mg Documented by: Lamotrigine (Lamotrigine 25 Mg Tablet) 25 mg PO DAILY [facility] Last Admin: 06/30/21 08:33 Dose: 25 mg Documented by: Lorazepam (Lorazepam 0.5 Mg Tablet) 0.5 mg PO BID PRN PRN Reason: Anxiety Last Admin: 06/30/21 12:32 Dose: 0.5 mg Documented by: Magnesium Hydroxide (Milk Of Magnesia 30 Ml Oral.Susp) 30 ml PO DAILY PRN PRN Reason: Constipation Last Admin: 06/25/21 09:40 Dose: 30 ml Documented by: Methadone HCl (Methadone Hcl 20 Mg/2 Ml Oral.Conc) 100 mg PO DAILY [facility] Last Admin: 06/30/21 09:15 Dose: 100 mg Documented by: Multi-Ingred Medicated Throat [place] (Throat [place], Medicated 20 Ml Bottle) 1 spray MUCOUS MEM Q2H PRN PRN Reason: Sore Throat Multivitamins/Vitamin C (Multivitamin Tablet) 1 tab PO DAILY [facility] Last Admin: 06/30/21 08:34 Dose: 1 tab Documented by: Nicotine (Nicotine 21 Mg Patch.Td24) 21 mg TRANSDERMA DAILY [facility] Last Admin: 06/30/21 08:35 Dose: 21 mg Documented by: Nicotine Polacrilex (Nicotine Polacrilex 2 Mg Gum) 4 mg BUCCAL Q2H PRN PRN Reason: Nicotine Cravings Last Admin: 06/30/21 14:14 Dose: 4 mg Documented by: Pharmacy Consult (Consult Rx Perform Med Rec) 1 each MISCELLANE ONCE PRN PRN Reason: Consult order Prazosin HCl (Prazosin Hcl 1 Mg Capsule) 1 mg PO BEDTIME [facility]; Protocol Last Admin: 06/29/21 21:13 Dose: 1 mg Documented by: Quetiapine Fumarate (Quetiapine Fumarate 300 Mg Tablet) 300 mg PO BEDTIME [facility] Last Admin: 06/29/21 21:13 Dose: 300 mg Documented by: Quetiapine Fumarate (Quetiapine Fumarate 25 Mg Tablet) 25 mg PO BID PRN PRN Reason: anxiety Last Admin: 06/27/21 16:35 Dose: 25 mg Documented by: Quetiapine Fumarate (Quetiapine Fumarate 50 Mg Tablet) 50 mg PO BID [facility] Last Admin: 06/30/21 08:33 Dose: 50 mg Documented by: Sumatriptan Succinate (Sumatriptan Succinate 100 Mg Tablet) 100 mg PO DAILY MRX1 PRN PRN Reason: Migraine Headache Last Admin: 06/28/21 14:15 Dose: 100 mg Documented by: Thiamine HCl (Thiamine Hcl 100 Mg Tablet) 100 mg PO DAILY [facility] Last Admin: 06/30/21 08:34 Dose: 100 mg Documented by: Topiramate (Topiramate 100 Mg Tablet) 100 mg PO BID [facility] Last Admin: 06/30/21 08:33 Dose: 100 mg Documented by: Time Spent With Patient Time: Total time spent is greater than 50% in coordination of care (as documented) at patient's floor/unit and/or counseling patient: Time with patient: 25 - 35 minutes Quality Stroke Does the patient have a stroke diagnosis?: No VTE Prior VTE?: No VTE Risk Level:: Surgical - low VTE Device Contraindication: Treatment Not Indicated VTE Drug Contraindication: Treatment Not Indicated
[2021-06-30] MEDS: QUEtiapine Fumarate 25 MG TABLET PO (16:16)
[2021-06-30 18:00] VITALS: BP 115/61; PULSE 58
[2021-06-30] MEDS: QUEtiapine Fumarate 300 MG TABLET PO (19:59)
[2021-06-30] MEDS: Prazosin HCL 1 MG CAPSULE PO (19:59)
[2021-06-30] MEDS: Enoxaparin Sodium 40 MG/0.4 ML SYRINGE SUBCUT (21:31)
--- NOTE | 2021-06-30 23:14 | HO.PSYCHPN ---
Subjective Subjective Date of Service: 06/30/21 Reason For Visit: depression with SI, opiate use disorder-severe on Interim History: Reports continued anxiety and that her PRN's don't help except for the Ativan. She describes agoraphobia/social anxiety. Says Thomas gave her migraines. She reports she is still draining fluid from the lesion on her calf. Surgery came to see. For now they are not going to drain it. They recommended another course of Doxycycline. No SI. Eyes close during the interview. . Review of Systems ? Small abscess on right calf Review of Systems Review of Systems Yes all other systems are reviewed and are negative Constitutional: Reports as per HPI, Reports chills (denies), Reports fever(s) (denies chills) and Reports headache(s) Eyes: Reports as per HPI and Reports no additional eye complaints Reports system reviewed and no additional complaints, except as documented, Reports as per HPI, Reports headache(s), Denies nasal congestion, Reports nasal discharge (denies) and Reports sore throat Cardiovascular: Reports as per HPI, Denies chest pain and Denies dyspnea Respiratory: Reports as per HPI, Denies cough and Denies dyspnea Gastrointestinal: Reports as per HPI, Denies abdominal pain, Denies diarrhea and Denies vomiting Musculoskeletal: Reports no additional musculoskeletal complaints and Denies numbness Skin/Breast: Reports as per HPI and Denies rash Reports as per HPI, Reports headache(s), Denies focal weakness, Denies numbness and Denies Sensory deficit (Neuro) Psychiatric: Reports as per HPI, Reports anxiety, Reports depression, Reports difficulty concentrating, Reports hopelessness and Reports suicidal ideation Endocrine: Reports no additional endocrine complaints and Reports as per HPI Hematologic/Lymphatic: Reports no additional hematologic/lymphatic complaints, Reports as per HPI and Reports other (No peripheral edema) Mental Status Exam Mental Status Exam Narrative: Pt is alert and oriented; behavior is cooperative and calm; dressed in casual attire, adequately groomed; numerous scratch karen/lesions on face healing well; mood is described as anxious and affect congruent;? eye contact appropriate; Speech is normal rate, volume and prosody and not pressured; no psychomotor agitation/retardation present; thought process linear and goal directed; Thought content is on tx; otherwise pertinent to relevant topics and without any delusional content, paranoid ideations or grandiosity; denies any SI/HI. There is no evidence of perceptual disturbance. ?Patients insight and judgment are fair Patient Appearance: Appropriate Patient Orientation: Person, Place, Time and Situation Level of Consciousness: Alert Patient Behavior: Appropriate and Good Eye Contact Mood Description: Depressed and Anxious Affect Description: Flat Patient Cognition Impaired: No Ability to Follow Directions: Excellent Speech Pattern: Spontaneous Speech Memory Description: Intact Diagnostics Vital Signs (24Hr): Vital Signs - 24 hr 06/30/21 08:15 06/30/21 18:00 Pulse Rate 88 58 Blood Pressure 132/58 L 115/61 BMI result Body Mass Index 20.2 Labs Results: 06/18/21 15:01 06/18/21 15:01 Imaging Radiology Impressions: ITS Impressions Chest X-Ray 06/20/21 20:55 IMPRESSION: Low inspiratory effort radiograph. No acute abnormality of the chest. Medications Medications Current Medications Acetaminophen (Acetaminophen 325 Mg Tablet) 650 mg PO Q6H PRN PRN Reason: Headache/Pain Mild Scale (1-3) Last Admin: 06/30/21 17:15 Dose: 650 mg Documented by: Al Hydroxide/Mg Hydroxide (Magnesium Hydrox/Alum Hydrox 30 Ml Oral.Susp) 30 ml PO Q6H PRN PRN Reason: Heartburn/Nausea Amlodipine Besylate (Amlodipine Besylate 10 Mg Tablet) 10 mg PO DAILY [facility]; Protocol Last Admin: 06/30/21 08:34 Dose: 10 mg Documented by: Aripiprazole (Aripiprazole 5 Mg Tablet) 7.5 mg PO DAILY [facility] Last Admin: 06/30/21 08:32 Dose: 7.5 mg Documented by: Benzocaine (Throat Lozenge, Medicated Lozenge) 1 lozenge MUCOUS MEM Q2H PRN PRN Reason: Sore Throat Last Admin: 06/26/21 15:24 Dose: 1 lozenge Documented by: Clonidine HCl (Clonidine Hcl 0.1 Mg Tablet) 0.1 mg PO TID PRN; Protocol PRN Reason: anxiety Last Admin: 06/30/21 09:15 Dose: 0.1 mg Documented by: Cyanocobalamin (Cyanocobalamin (Vitamin B-12) 100 Mcg Tablet) 100 mcg PO DAILY [facility] Last Admin: 06/30/21 08:33 Dose: 100 mcg Documented by: Doxycycline Hyclate (Doxycycline Hyclate 100 Mg Tablet) 100 mg PO Q12H [facility] Last Admin: 06/30/21 17:15 Dose: 100 mg Documented by: Enoxaparin Sodium (Enoxaparin Sodium 40 Mg/0.4 Ml Syringe) 40 mg SUBCUT Q24H [facility] Last Admin: 06/30/21 21:31 Dose: 40 mg Documented by: Gabapentin (Gabapentin 100 Mg Capsule) 200 mg PO TID [facility] Last Admin: 06/30/21 19:59 Dose: 200 mg Documented by: Hydroxyzine HCl (Hydroxyzine Hcl 25 Mg Tablet) 75 mg PO Q6H PRN PRN Reason: Anxiety Last Admin: 06/30/21 04:01 Dose: 75 mg Documented by: Lamotrigine (Lamotrigine 25 Mg Tablet) 25 mg PO DAILY [facility] Last Admin: 06/30/21 08:33 Dose: 25 mg Documented by: Lorazepam (Lorazepam 0.5 Mg Tablet) 0.5 mg PO BID PRN PRN Reason: Anxiety Last Admin: 06/30/21 12:32 Dose: 0.5 mg Documented by: Magnesium Hydroxide (Milk Of Magnesia 30 Ml Oral.Susp) 30 ml PO DAILY PRN PRN Reason: Constipation Last Admin: 06/25/21 09:40 Dose: 30 ml Documented by: Methadone HCl (Methadone Hcl 20 Mg/2 Ml Oral.Conc) 100 mg PO DAILY [facility] Last Admin: 06/30/21 09:15 Dose: 100 mg Documented by: Multi-Ingred Medicated Throat [place] (Throat [place], Medicated 20 Ml Bottle) 1 spray MUCOUS MEM Q2H PRN PRN Reason: Sore Throat Multivitamins/Vitamin C (Multivitamin Tablet) 1 tab PO DAILY [facility] Last Admin: 06/30/21 08:34 Dose: 1 tab Documented by: Nicotine (Nicotine 21 Mg Patch.Td24) 21 mg TRANSDERMA DAILY [facility] Last Admin: 06/30/21 08:35 Dose: 21 mg Documented by: Nicotine Polacrilex (Nicotine Polacrilex 2 Mg Gum) 4 mg BUCCAL Q2H PRN PRN Reason: Nicotine Cravings Last Admin: 06/30/21 14:14 Dose: 4 mg Documented by: Pharmacy Consult (Consult Rx Perform Med Rec) 1 each MISCELLANE ONCE PRN PRN Reason: Consult order Prazosin HCl (Prazosin Hcl 1 Mg Capsule) 1 mg PO BEDTIME [facility]; Protocol Last Admin: 06/30/21 19:59 Dose: 1 mg Documented by: Quetiapine Fumarate (Quetiapine Fumarate 300 Mg Tablet) 300 mg PO BEDTIME [facility] Last Admin: 06/30/21 19:59 Dose: 300 mg Documented by: Quetiapine Fumarate (Quetiapine Fumarate 25 Mg Tablet) 25 mg PO BID PRN PRN Reason: anxiety Last Admin: 06/30/21 16:16 Dose: 25 mg Documented by: Quetiapine Fumarate (Quetiapine Fumarate 50 Mg Tablet) 50 mg PO BID [facility] Last Admin: 06/30/21 19:59 Dose: 50 mg Documented by: Sumatriptan Succinate (Sumatriptan Succinate 100 Mg Tablet) 100 mg PO DAILY MRX1 PRN PRN Reason: Migraine Headache Last Admin: 06/28/21 14:15 Dose: 100 mg Documented by: Thiamine HCl (Thiamine Hcl 100 Mg Tablet) 100 mg PO DAILY [facility] Last Admin: 06/30/21 08:34 Dose: 100 mg Documented by: Topiramate (Topiramate 100 Mg Tablet) 100 mg PO BID [facility] Last Admin: 06/30/21 19:59 Dose: 100 mg Documented by: Allergies Allergies Allergy/AdvReac Type Severity Reaction Status Date / Time bee pollen [BEE STINGS] Allergy Severe Anaphylaxis Verified 02/27/21 06:54 codeine [CODEINE] Allergy Severe ANAPHYLAXIS Verified 02/27/21 06:54 Iodinated Contrast Media Allergy Severe DIFFICULTY Verified 02/27/21 06:54 [IV DYE, IODINE CONTAINING BREATHING CONTRAST ] nut - unspecified [nut] Allergy Intermediate Rash Verified 02/27/21 06:54 shellfish derived Allergy Intermediate Rash Verified 02/27/21 06:54 Sulfa (Sulfonamide Allergy Unknown ANAPHYLAXIS Verified 02/27/21 06:54 Antibiotics) [SULFA (SULFONAMIDE ANTIBIOTICS)] Assessment & Plan Assessment & Plan (1) MDD (major depressive disorder), recurrent episode, moderate: Status: Acute Code(s): F33.1 - Major depressive disorder, recurrent, moderate Assessment and Plan: Assessment & Plan (1) MDD (major depressive disorder), recurrent episode, moderate: (2) PTSD (post-traumatic stress disorder): (3) Antiphospholipid antibody syndrome: (4) Antiphospholipid antibody positive: (5) UTI (urinary tract infection): (6) Cellulitis and abscess of left lower extremity: ?Assessment and Plan: 06/29: Asked surgery to see for possible I&D. (7) Hypertension: (8) Opioid use disorder, severe, dependence: (9) Cocaine use disorder: Plan IMPRESSION: 40-year-old female with a past medical history of IV drug abuse, PTSD, Bipolar disorder, antiphospholipid syndrome complicated by CVA, multiple DVT/PE status post IVC filter, HTN, CKD stage III, hep C.? (r/o HERSON).? Patient presents after recent discharge from [facility] this past May 2021 in the face of a relapse, overwhelming anxiety, depression and then suicidal ideation with thoughts to overdose.? Patient reports she has been adherent with her medication regimen, which she knows by names and doses.? Patient brought to ED by friend.? Patient reports that suicidality was sudden and the thought impulsive.? She denies any preceding intent or plans and reports that SI has now resolved.? Patient said she feels she probably needs an aftercare program to help stabilize longer-term.? Patient denies any AVH and does not know why that was mentioned.? Patient was found to be COVID positive on admission; also with cellulitis on left lower leg and UTI started on antibiotics. -admit for safety and stabilization 06/20 patient reports depression remains but SI remains fully resolved.? She would like to restart Lamictal which she says was very helpful in the past for both mood and PTSD symptoms.? Patient reports some chest pain on inhalation only but denies any other symptoms; she will alert staff if anything changes; O2 sat within normal limits and patient afebrile.? Medical Csr will consult hospitalist to see if there is any other recommendations given patient's report. -regarding patient's antiphospholipid syndrome and theoretical increased risk for clotting while COVID positive, Medical Csr called and discussed case with Dr. Casiano, critical care transport nurse/oncologist who explained current recommendations and recommends continuing patient on home dose of enoxaparin without need to increase dose or add another anticoagulant either during admission or post discharge. 06/26 patient stabilizing; depression resolved and no SI.? Patient continues to have much anxiety and thus keeps to herself in the milieu.? Patient had been started on mirtazapine however she has decided against this given its potential for weight gain and prefers to a trial of Prozac; side effects lacks risks discussed and patient agrees to continue with trial given that she is on Abilify and Seroquel which are mood stabilizing making triggering to sussy a low risk; she is also being titrated on Lamictal.? Patient is hoping for a CSS program. 06/28 stabilizing; no depression or SI; anxiety problem; trial of prozac causing migraines. PLAN: CV Q 15 minute checks for safety Depression/AnxietyPTSD/substance abuse: IMITREX 50 MG P.O. 1 PRN FOR MIGRAINE Continue to titrate Lamictal 25mg; titrate according to recommended schedule for PTSD and mood stability; patient has been on in the past and reports was helpful ContinueAbilify a 7.5 mg daily Continue Clonidine 0.1 mg tid but make it PRN INCREASED TO Hydroxyzine 75 mg q.6 p.r.n. Methadone DC Prozac? caused migraines; Reconsider mirtazapine; patient wants to avoid potential for weight gain but maybe willing to tolerate Continue Prazosin 1 mg q.h.s. Continue Seroquel 300 mg q.h.s. Continue Seroquel 25 mg b.i.d. p.r.n. for anxiety Continue Topamax 100 mg b.i.d. for mood and headache (normally 200mg BiD but in Apr 2021, decreased to 100 mg BID at [facility] due to GERRI) -Patient is asking for program post discharge; SW will review options (2) Opioid use disorder, severe, dependence: Status: Acute Code(s): F11.20 - Opioid dependence, uncomplicated (3) Cocaine use disorder: Status: Acute Code(s): F14.10 - Cocaine abuse, uncomplicated (4) Antiphospholipid antibody syndrome: Status: Acute Code(s): D68.61 - Antiphospholipid syndrome (5) Furuncle of lower leg: Status: Acute Code(s): L02.429 - Furuncle of limb, unspecified (6) PTSD (post-traumatic stress disorder): Status: Acute Code(s): F43.10 - Post-traumatic stress disorder, unspecified Plan 40 yea old female in with mental health issues - hx of shooting up cocaine but denies shooting in leg - has an area of induration - doubt true abscess - maybe little furuncle - not convinced it has fluid to drain at this point do qid warm compress and would cont doxy bid for another 7-10 days with her hx of MRSA. if points and drains may at that time need drainage. pt understands and agrees with plan I spent minutes with the patient and/or on the patient floor today, greater than?50% of which was spent counseling/coordinating care. Reason for contiued inpatient stay Substantial Risk for: harm to self
[2021-07-01] MEDS: hydrOXYzine HCL 25 MG TABLET 75 MG PO ×2 (03:17→13:55)
[2021-07-01 08:50] VITALS: BP 130/62; PULSE 55; TEMP 37
[2021-07-01] MEDS: amLODIPine Besylate 10 MG TABLET PO (09:45)
[2021-07-01] MEDS: Thiamine HCL 100 MG TABLET PO (09:46)
[2021-07-01] MEDS: Cyanocobalamin (Vitamin B-12) 100 MCG TABLET PO (09:46)
[2021-07-01] MEDS: Topiramate 100 MG TABLET PO ×2 (09:46→20:31)
[2021-07-01] MEDS: Multivitamin TABLET 1 TAB PO (09:46)
[2021-07-01] MEDS: Gabapentin 100 MG CAPSULE 200 MG PO ×3 (09:46→20:30)
[2021-07-01] MEDS: ARIPiprazole 5 MG TABLET 7.5 MG PO (09:46)
[2021-07-01] MEDS: lamoTRIgine 25 MG TABLET PO (09:46)
[2021-07-01] MEDS: QUEtiapine Fumarate 50 MG TABLET PO ×2 (09:47→20:32)
[2021-07-01] MEDS: methADONE HCl 20 MG/2 ML ORAL.CONC 100 MG PO (09:47)
[2021-07-01] MEDS: Nicotine 21 MG PATCH.TD24 TRANSDERMA (09:47)
--- NOTE | 2021-07-01 10:18 | P.PNPSI_ITS ---
Subjective Subjective Date of Service: 07/01/21 Reason For Visit: depression with SI, opiate use disorder-severe on Interim History: Patient reports mood remains better and SI remains resolved; she is still anxious and would like to get back on mirtazapine. She remembers that she has actually been on this in the past even up to 30 mg and has tolerated it well. Patient is planning to discharge tomorrow to a program for which she is excited. She feels safe and ready to go. She would like mirtazapine to be titrated to 15 mg prior to discharge to which automotive service writer agrees. Of note, patient had to endure a challenging weekend with a dysregulated peer that was particularly provocative; despite this experience patient remained calm, stable and demonstrated her ability to use coping skills. Mental Status Exam Mental Status Exam Narrative: Pt is alert and oriented; behavior is cooperative and calm; dressed in casual attire, adequately groomed; numerous scratch karen/lesions on face healing well; mood is described as ok and affect congruent;? eye contact appropriate; Speech is normal rate, volume and prosody and not pressured; no psychomotor agitation/retardation present; thought process linear and goal directed; Thought content is on tx; otherwise pertinent to relevant topics and without any delusional content, paranoid ideations or grandiosity; denies any SI/HI. There is no evidence of perceptual disturbance. ?Patients insight and judgment are fair Diagnostics Vital Signs (24Hr): Vital Signs - 24 hr 06/30/21 18:00 Pulse Rate 58 Blood Pressure 115/61 BMI result Verd[place] 4 Body Mass Index Verdana 4 20.2 Verdana 4 Verdana 4 Labs Results: 06/18/21 15:01 06/18/21 15:01 Imaging Radiology Impressions: ITS Impressions Chest X-Ray 06/20/21 20:55 IMPRESSION: Low inspiratory effort radiograph. No acute abnormality of the chest. Medications Medications Current Medications Acetaminophen (Acetaminophen 325 Mg Tablet) 650 mg PO Q6H PRN PRN Reason: Headache/Pain Mild Scale (1-3) Last Admin: 06/30/21 17:15 Dose: 650 mg Documented by: Al Hydroxide/Mg Hydroxide (Magnesium Hydrox/Alum Hydrox 30 Ml Oral.Susp) 30 ml PO Q6H PRN PRN Reason: Heartburn/Nausea Amlodipine Besylate (Amlodipine Besylate 10 Mg Tablet) 10 mg PO DAILY SOPHIE; Protocol Last Admin: 07/01/21 09:45 Dose: 10 mg Documented by: Aripiprazole (Aripiprazole 5 Mg Tablet) 7.5 mg PO DAILY [facility] Last Admin: 07/01/21 09:46 Dose: 7.5 mg Documented by: Benzocaine (Throat Lozenge, Medicated Lozenge) 1 lozenge MUCOUS MEM Q2H PRN PRN Reason: Sore Throat Last Admin: 06/26/21 15:24 Dose: 1 lozenge Documented by: Clonidine HCl (Clonidine Hcl 0.1 Mg Tablet) 0.1 mg PO TID PRN; Protocol PRN Reason: anxiety Last Admin: 06/30/21 09:15 Dose: 0.1 mg Documented by: Cyanocobalamin (Cyanocobalamin (Vitamin B-12) 100 Mcg Tablet) 100 mcg PO DAILY [facility] Last Admin: 07/01/21 09:46 Dose: 100 mcg Documented by: Doxycycline Hyclate (Doxycycline Hyclate 100 Mg Tablet) 100 mg PO Q12H [facility] Last Admin: 07/01/21 07:17 Dose: 100 mg Documented by: Enoxaparin Sodium (Enoxaparin Sodium 40 Mg/0.4 Ml Syringe) 40 mg SUBCUT Q24H [facility] Last Admin: 06/30/21 21:31 Dose: 40 mg Documented by: Gabapentin (Gabapentin 100 Mg Capsule) 200 mg PO TID [facility] Last Admin: 07/01/21 09:46 Dose: 200 mg Documented by: Hydroxyzine HCl (Hydroxyzine Hcl 25 Mg Tablet) 75 mg PO Q6H PRN PRN Reason: Anxiety Last Admin: 07/01/21 03:17 Dose: 75 mg Documented by: Lamotrigine (Lamotrigine 25 Mg Tablet) 25 mg PO DAILY [facility] Last Admin: 07/01/21 09:46 Dose: 25 mg Documented by: Lorazepam (Lorazepam 0.5 Mg Tablet) 0.5 mg PO BID PRN PRN Reason: Anxiety Last Admin: 06/30/21 12:32 Dose: 0.5 mg Documented by: Magnesium Hydroxide (Milk Of Magnesia 30 Ml Oral.Susp) 30 ml PO DAILY PRN PRN Reason: Constipation Last Admin: 06/25/21 09:40 Dose: 30 ml Documented by: Methadone HCl (Methadone Hcl 20 Mg/2 Ml Oral.Conc) 100 mg PO DAILY [facility] Last Admin: 07/01/21 09:47 Dose: 100 mg Documented by: Multi-Ingred Medicated Throat [place] (Throat [place], Medicated 20 Ml Bottle) 1 spray MUCOUS MEM Q2H PRN PRN Reason: Sore Throat Multivitamins/Vitamin C (Multivitamin Tablet) 1 tab PO DAILY [facility] Last Admin: 07/01/21 09:46 Dose: 1 tab Documented by: Nicotine (Nicotine 21 Mg Patch.Td24) 21 mg TRANSDERMA DAILY [facility] Last Admin: 07/01/21 09:47 Dose: 21 mg Documented by: Nicotine Polacrilex (Nicotine Polacrilex 2 Mg Gum) 4 mg BUCCAL Q2H PRN PRN Reason: Nicotine Cravings Last Admin: 06/30/21 14:14 Dose: 4 mg Documented by: Pharmacy Consult (Consult Rx Perform Med Rec) 1 each MISCELLANE ONCE PRN PRN Reason: Consult order Prazosin HCl (Prazosin Hcl 1 Mg Capsule) 1 mg PO BEDTIME [facility]; Protocol Last Admin: 06/30/21 19:59 Dose: 1 mg Documented by: Quetiapine Fumarate (Quetiapine Fumarate 300 Mg Tablet) 300 mg PO BEDTIME [facility] Last Admin: 06/30/21 19:59 Dose: 300 mg Documented by: Quetiapine Fumarate (Quetiapine Fumarate 25 Mg Tablet) 25 mg PO BID PRN PRN Reason: anxiety Last Admin: 06/30/21 16:16 Dose: 25 mg Documented by: Quetiapine Fumarate (Quetiapine Fumarate 50 Mg Tablet) 50 mg PO BID [facility] Last Admin: 07/01/21 09:47 Dose: 50 mg Documented by: Sumatriptan Succinate (Sumatriptan Succinate 100 Mg Tablet) 100 mg PO DAILY MRX1 PRN PRN Reason: Migraine Headache Last Admin: 06/28/21 14:15 Dose: 100 mg Documented by: Thiamine HCl (Thiamine Hcl 100 Mg Tablet) 100 mg PO DAILY [facility] Last Admin: 07/01/21 09:46 Dose: 100 mg Documented by: Topiramate (Topiramate 100 Mg Tablet) 100 mg PO BID [facility] Last Admin: 07/01/21 09:46 Dose: 100 mg Documented by: Allergies Allergies Allergy/AdvReac Type Severity Reaction Status Date / Time bee pollen [BEE Allergy Severe Anaphylaxis Verified 02/27/21 06:54 STINGS] codeine [CODEINE] Allergy Severe ANAPHYLAXIS Verified 02/27/21 06:54 Iodinated Contrast Allergy Severe DIFFICULTY Verified 02/27/21 06:54 Media [IV DYE, IODINE BREATHING CONTAINING CONTRAST ] nut - unspecified Allergy Intermediate Rash Verified 02/27/21 06:54 [nut] shellfish derived Allergy Intermediate Rash Verified 02/27/21 06:54 Sulfa (Sulfonamide Allergy Unknown ANAPHYLAXIS Verified 02/27/21 06:54 Antibiotics) [SULFA (SULFONAMIDE ANTIBIOTICS)] Assessment & Plan Assessment & Plan (1) MDD (major depressive disorder), recurrent episode, moderate: Status: Acute Code(s): F33.1 - Major depressive disorder, recurrent, moderate Assessment and Plan: Assessment & Plan (1) MDD (major depressive disorder), recurrent episode, moderate: (2) PTSD (post-traumatic stress disorder): (3) Antiphospholipid antibody syndrome: (4) Antiphospholipid antibody positive: (5) UTI (urinary tract infection): (6) Cellulitis and abscess of left lower extremity: ?Assessment and Plan: 06/29: Asked surgery to see for possible I&D. (7) Hypertension: (8) Opioid use disorder, severe, dependence: (9) Cocaine use disorder: Plan IMPRESSION: 40-year-old female with a past medical history of IV drug abuse, PTSD, Bipolar disorder, antiphospholipid syndrome complicated by CVA, multiple DVT/PE status post IVC filter, HTN, CKD stage III, hep C.? (r/o HERSON).? Patient presents after recent discharge from [facility] this past May 2021 in the face of a relapse, overwhelming anxiety, depression and then suicidal ideation with thoughts to overdose.? Patient reports she has been adherent with her medication regimen, which she knows by names and doses.? Patient brought to ED by friend.? Patient reports that suicidality was sudden and the thought impulsive.? She denies any preceding intent or plans and reports that SI has now resolved.? Patient said she feels she probably needs an aftercare program to help stabilize longer- term.? Patient denies any AVH and does not know why that was mentioned.? Patient was found to be COVID positive on admission; also with cellulitis on left lower leg and UTI started on antibiotics. -admit for safety and stabilization 06/20 patient reports depression remains but SI remains fully resolved.? She would like to restart Lamictal which she says was very helpful in the past for both mood and PTSD symptoms.? Patient reports some chest pain on inhalation only but denies any other symptoms; she will alert staff if anything changes; O2 sat within normal limits and patient afebrile.? Multimedia Artist will consult hospitalist to see if there is any other recommendations given patient's report. -regarding patient's antiphospholipid syndrome and theoretical increased risk for clotting while COVID positive, Multimedia Artist called and discussed case with Dr. Kelvin chavez, commercial drone software developer/oncologist who explained current recommendations and recommends continuing patient on home dose of enoxaparin without need to increase dose or add another anticoagulant either during admission or post discharge. 06/26 patient stabilizing; depression resolved and no SI.? Patient continues to have much anxiety and thus keeps to herself in the milieu.? Patient had been started on mirtazapine however she has decided against this given its potential for weight gain and prefers to a trial of Prozac; side effects lacks risks discussed and patient agrees to continue with trial given that she is on Abilify and Seroquel which are mood stabilizing making triggering to sussy a low risk; she is also being titrated on Lamictal.? Patient is hoping for a CSS program. 06/28 stabilizing; no depression or SI; anxiety problem; trial of prozac causing migraines. 07/01 patient feels ready for discharge; depression remains well treated and SI remains resolved; continues to feel anxious but will work on this as an outpatient. Like to get back on mirtazapine which she has been on in the past. Patient is stable. Patient is slated to go to a supportive dual diagnosis program. She is not in imminent risk for harm to self or others her request for discharge is honored. PLAN: CV Q 15 minute checks for safety Depression/AnxietyPTSD/substance abuse: IMITREX 50 MG P.O. 1 PRN FOR MIGRAINE Continue to titrate Lamictal 25mg; titrate according to recommended schedule for PTSD and mood stability; patient has been on in the past and reports was helpful ContinueAbilify a 7.5 mg daily Continue Clonidine 0.1 mg tid but make it PRN * surgery saw patient and would like her doxycycline to be continued for another 10 days Hydroxyzine 75 mg q.6 p.r.n. Methadone DC Prozac? caused migraines; Reconsider mirtazapine; patient wants to avoid potential for weight gain but maybe willing to tolerate Continue Prazosin 1 mg q.h.s. Continue Seroquel 300 mg q.h.s. Continue Seroquel 25 mg b.i.d. p.r.n. for anxiety Continue Topamax 100 mg b.i.d. for mood and headache (normally 200mg BiD but in Apr 2021, decreased to 100 mg BID at [facility] [place] due to GERRI) -Patient is asking for program post discharge; SW will review options (2) Opioid use disorder, severe, dependence: Status: Acute Code(s): F11.20 - Opioid dependence, uncomplicated (3) Cocaine use disorder: Status: Acute Code(s): F14.10 - Cocaine abuse, uncomplicated (4) Antiphospholipid antibody syndrome: Status: Acute Code(s): D68.61 - Antiphospholipid syndrome (5) Furuncle of lower leg: Status: Acute Code(s): L02.429 - Furuncle of limb, unspecified (6) PTSD (post-traumatic stress disorder): Status: Acute Code(s): F43.10 - Post-traumatic stress disorder, unspecified Plan 40 yea old female in with mental health issues - hx of shooting up cocaine but denies shooting in leg - has an area of induration - doubt true abscess - maybe little furuncle - not convinced it has fluid to drain at this point do qid warm compress and would cont doxy bid for another 7-10 days with her hx of MRSA. if points and drains may at that time need drainage. pt understands and agrees with plan I spent minutes with the patient and/or on the patient floor today, greater than?50% of which was spent counseling/coordinating care. Reason for contiued inpatient stay Substantial Risk for: stable for discharge
[2021-07-01] MEDS: LORazepam 0.5 MG TABLET PO ×2 (10:45→16:06)
[2021-07-01] MEDS: Nicotine Polacrilex 2 MG GUM 4 MG BUCCAL (13:25)
[2021-07-01 18:11] VITALS: BP 125/59; PULSE 67; RESP 18; TEMP 36.8; O2SAT 100
[2021-07-01] MEDS: cloNIDine HCL 0.1 MG TABLET PO (18:16)
[2021-07-01] MEDS: Mirtazapine 7.5 MG TABLET PO (20:31)
[2021-07-01] MEDS: Prazosin HCL 1 MG CAPSULE PO (20:31)
[2021-07-01] MEDS: QUEtiapine Fumarate 300 MG TABLET PO (20:32)
[2021-07-01] MEDS: Enoxaparin Sodium 40 MG/0.4 ML SYRINGE SUBCUT (20:32)
[2021-07-01 20:35] VITALS: BP 124/67; PULSE 62; O2SAT 97
--- NOTE | 2021-07-01 23:17 | PM.PSYDC ---
DS: Providers Provider Date of Service: 07/02/21 Date of admission: 06/18/21 16:09 Date of discharge: 07/02/21 Primary care physician: LEIGHTON Valadez Attending physician on admission: Yves Mcmillan Consults: 06/29/21 14:11 Consult to General Surgery Routine Consulting Provider: Shara Vidal Reason for consultation: Right calf abscess. ? if needs I&D Has provider been notified: Yes Attending physician on discharge: Yves Mcmillan DS: Diagnosis Discharge Diagnosis (1) MDD (major depressive disorder), recurrent episode, moderate: Status: Acute (2) Opioid use disorder, severe, dependence: Status: Acute (3) Cocaine use disorder: Status: Acute (4) Antiphospholipid antibody syndrome: Status: Acute (5) Furuncle of lower leg: Status: Acute (6) PTSD (post-traumatic stress disorder): Status: Acute DS: Medications Discharge Medications Home Medications: Home Medications Medication Instructions Recorded Confirmed methadone 10 mg/mL oral concentrate 100 mg PO DAILY 06/18/21 06/18/21 Previous Rx's Medication Instructions Recorded acetaminophen 325 mg tablet 650 mg PO Q6H PRN #0 tab 07/01/21 aluminum-magnesium hydroxide 200 30 ml PO Q6H PRN #0 ml 07/01/21 mg-200 mg/5 mL oral suspension (MAG-AL) amlodipine 10 mg tablet 10 mg PO DAILY 30 Days #30 tab 07/01/21 aripiprazole 5 mg tablet (Abilify) 7.5 mg PO DAILY 30 Days #45 tab 07/01/21 benzocaine 15 mg-menthol 3.6 mg 1 britany MUCOUS MEMBRANE Q2H PRN #0 ea 07/01/21 lozenges (Cepacol Sore Throat (benzocaine-menthol)) clonidine HCl 0.1 mg tablet 0.1 mg PO TID PRN 30 Days #90 tab 07/01/21 cyanocobalamin (vitamin B-12) 100 100 mcg PO DAILY 30 Days #30 tab 07/01/21 mcg tablet (Vitamin B-12) doxycycline hyclate 100 mg tablet 100 mg PO BID 8 Days #16 tab 07/01/21 enoxaparin 40 mg/0.4 mL 40 mg (0.4 mL) SUBCUT Q24H 30 Days 07/01/21 subcutaneous syringe #12 ml gabapentin 100 mg capsule 200 mg PO TID 30 Days #180 cap 07/01/21 hydroxyzine HCl 25 mg tablet 75 mg PO Q6H PRN 30 Days #120 tab 07/01/21 lamotrigine 100 mg tablet 100 mg PO DAILY 30 Days #30 tab 07/01/21 (Lamictal) lamotrigine 25 mg tablet 25 mg PO DAILY 30 Days #70 tab 07/01/21 magnesium hydroxide 400 mg/5 mL 30 ml PO DAILY PRN #0 ml 07/01/21 oral suspension (Milk of Magnesia) mirtazapine 7.5 mg tablet 15 mg PO BEDTIME 30 Days #60 tab 07/01/21 multivitamin (Daily-Nirmala) 1 tab PO DAILY 30 Days #30 tab 07/01/21 nicotine (polacrilex) 2 mg gum 4 mg BUCCAL Q2H PRN 30 Days #100 ea 07/01/21 phenol 1.4 % mucosal aerosol spray 1 spray MUCOUS MEMBRANE Q2H PRN #0 07/01/21 (Chloraseptic Throat Lutz) ml prazosin 1 mg capsule 1 mg PO BEDTIME 30 Days #30 cap 07/01/21 quetiapine 25 mg tablet 25 mg PO BID PRN 30 Days #60 tab 07/01/21 quetiapine 300 mg tablet 300 mg PO BEDTIME 30 Days #30 tab 07/01/21 quetiapine 50 mg tablet 50 mg PO BID 30 Days #60 tab 07/01/21 sumatriptan succinate 100 mg tablet 50 mg PO DAILY MRX1 PRN 30 Days 07/01/21 #10 tab topiramate 100 mg tablet 100 mg PO BID 30 Days #60 tab 07/01/21 trazodone 50 mg tablet 50 mg PO BEDTIME PRN 30 Days #30 07/01/21 tab Mental Status Exam Mental Status Exam Narrative: Pt is alert and oriented; behavior is cooperative and calm; dressed in casual attire, adequately groomed; numerous scratch karen/lesions on face healing well; mood is described as ok and affect congruent;? eye contact appropriate; Speech is normal rate, volume and prosody and not pressured; no psychomotor agitation/retardation present; thought process linear and goal directed; Thought content is on tx; otherwise pertinent to relevant topics and without any delusional content, paranoid ideations or grandiosity; denies any SI/HI. There is no evidence of perceptual disturbance. ?Patients insight and judgment are fair Data Data Completed and Pending Completed studies during hospitalization [Text1]: 06/21/21 18:50 Throat Throat Culture - Final No Group A Beta-hemolytic Streptococci isolated. 06/16/21 Unknown Urine clean catch - Urine collins top Urine Culture - Final Methicillin Res Staph Aureus Imaging Diagnostic Imaging Impressions Chest X-Ray 06/20/21 20:55 IMPRESSION: Low inspiratory effort radiograph. No acute abnormality of the chest. DS: Summary Hospital Course Hospital Course: 40-year-old female with a past medical history of IV drug abuse, PTSD, Bipolar disorder, antiphospholipid syndrome complicated by CVA, multiple DVT/PE status post IVC filter, HTN, CKD stage III, hep C.? (r/o HERSON).? Patient presents after recent discharge from [facility] this past May 2021 in the face of a relapse, overwhelming anxiety, depression and then suicidal ideation with thoughts to overdose.? Patient reports she has been adherent with her medication regimen, which she knows by names and doses.? Patient brought to ED by friend.? Patient reports that suicidality was sudden and the thought impulsive.? She denies any preceding intent or plans and reports that SI has now resolved.? Patient said she feels she probably needs an aftercare program to help stabilize longer-term.? Patient denies any AVH and does not know why that was mentioned.? Patient was found to be COVID positive on admission; also with cellulitis on left lower leg and UTI started on antibiotics. -admit for safety and stabilization 06/20 patient reports depression remains but SI remains fully resolved.? She would like to restart Lamictal which she says was very helpful in the past for both mood and PTSD symptoms.? Patient reports some chest pain on inhalation only but denies any other symptoms; she will alert staff if anything changes; O2 sat within normal limits and patient afebrile.? CXR ordered WNL/unremarkable -regarding patient's antiphospholipid syndrome and theoretical increased risk for clotting while COVID positive, Teacher Education Director called and discussed case with Dr. Casiano, production metal sprayer/oncologist who explained current recommendations and recommends continuing patient on home dose of enoxaparin without need to increase dose or add another anticoagulant either during admission or post discharge. 06/26 patient stabilizing; depression resolved and no SI.? Patient continues to have much anxiety and thus keeps to herself in the milieu.? Patient had been started on mirtazapine however she has decided against this given its potential for weight gain and prefers to a trial of Prozac; side effects lacks risks discussed and patient agrees to continue with trial given that she is on Abilify and Seroquel which are mood stabilizing making triggering to sussy a low risk; she is also being titrated on Lamictal.? Patient is hoping for a CSS program. 06/28 stabilizing; no depression or SI; anxiety problem; trial of prozac causing migraines. 07/01 patient feels ready for discharge; depression remains well treated and SI remains resolved; continues to feel anxious but will work on this as an outpatient.? Like to get back on mirtazapine which she has been on in the past.? Patient is stable.? Patient is slated to go to a supportive dual diagnosis program.? She? is not in imminent risk for harm to self or others her request for discharge is honored. Medication tx for Depression/AnxietyPTSD/substance abuse: IMITREX 50 MG P.O. 1 PRN FOR MIGRAINE Titrate Lamicta; titrate according to recommended schedule for PTSD and mood stability; patient has been on in the past and reports was helpful Abilify a 7.5 mg daily Clonidine 0.1 mg tid PRN Doxycycline: surgery saw patient and would like her doxycycline to be continued for another 10 days Hydroxyzine 75 mg prn Methadone mirtazapine Prazosin 1 mg q.h.s. Seroquel 300 mg q.h.s. Seroquel 25 mg b.i.d. p.r.n. for anxiety Topamax 100 mg b.i.d. for mood and headache Time spent discussing smoking cessation with patient: 3 to 10 minutes Status at Discharge Functional status at discharge: independent ambulation Overall status at discharge: patient is back to baseline Time Spent with Patient Time attestation: Total time spent providing and/or coordinating discharge services: Time spent: Less than 30 minutes Discharge Plan Discharge Patient Disposition: Xfer Inpatient Rehab Fac Discharge Diagnosis: mdd, recurrent, moderate in full remission Referrals: Allison- Computer Scientist ([facility]) [Other] - 07/16/21 1:00 pm (Please contact Allison at ext. [phone] at the time of your appointment to complete the intake assessment) [facility] [Other] - 07/02/21 10:30 am (You have been accepted to the [facility] for continued substance use treatment) Jose Rashid, PEER EDUCATOR-BC [Primary Care Provider] - 1 Week (WILL CALL PATIENT WITH FOLLOW-UP APPOINTMENT.) Discharge Medications: New doxycycline hyclate 100 mg Tablet 100 mg PO BID 8 Days Qty: 16 0RF enoxaparin 40 mg/0.4 mL Syringe 40 mg subcut Q24H 30 Days Qty: 12 1RF nicotine (polacrilex) 2 mg Gum 4 mg buccal Q2H PRN (Reason: Nicotine Cravings) 30 Days Qty: 100 1RF amlodipine 10 mg Tablet 10 mg PO DAILY 30 Days Qty: 30 1RF Protocol: Hold for SBP< HOLD for SBP < : 90 clonidine HCl 0.1 mg Tablet 0.1 mg PO TID PRN (Reason: anxiety) 30 Days Qty: 90 1RF Protocol: Hold for SBP< HOLD for SBP < : 90 hydroxyzine HCl 25 mg Tablet 75 mg PO Q6H PRN (Reason: Anxiety) 30 Days Qty: 120 1RF acetaminophen 325 mg Tablet 650 mg PO Q6H PRN (Reason: Headache/Pain Mild Scale (1-3)) Qty: 0 0RF lamotrigine 25 mg Tablet 25 mg PO DAILY 30 Days Qty: 70 0RF Rx Instructions: take 2 tabs daily for 2 weeks and then take 3 tabs daily for 2 weeks mirtazapine 7.5 mg Tablet 15 mg PO BEDTIME 30 Days Qty: 60 1RF quetiapine 25 mg Tablet 25 mg PO BID PRN (Reason: anxiety) 30 Days Qty: 60 1RF quetiapine 50 mg Tablet 50 mg PO BID 30 Days Qty: 60 1RF sumatriptan succinate 100 mg Tablet 50 mg PO DAILY MRX1 PRN (Reason: Migraine Headache) 30 Days Qty: 10 1RF magnesium hydroxide [Milk of Magnesia] 400 mg/5 mL Suspension 30 ml PO DAILY PRN (Reason: Constipation) Qty: 0 0RF Chloraseptic Throat Lutz 1.4 % Aerosol,Lutz 1 spray mucous membrane Q2H PRN (Reason: Sore Throat) Qty: 0 0RF MAG-AL 200-200 mg/5 mL Suspension 30 ml PO Q6H PRN (Reason: Heartburn/Nausea) Qty: 0 0RF Cepacol Sore Throat (jam-men) 15-3.6 mg Lozenge 1 britany mucous membrane Q2H PRN (Reason: Sore Throat) Qty: 0 0RF lamotrigine [Lamictal] 100 mg tablet 100 mg PO DAILY 30 Days Qty: 30 0RF Rx Instructions: Start 07/29/21 after complete 2 weeks of 75mg Continued methadone 10 mg/mL Concentrate 100 mg PO DAILY 0RF multivitamin [Daily-Nirmala] Tablet 1 tab PO DAILY 30 Days Qty: 30 1RF quetiapine 300 mg Tablet 300 mg PO BEDTIME 30 Days Qty: 30 1RF cyanocobalamin (vitamin B-12) [Vitamin B-12] 100 mcg Tablet 100 mcg PO DAILY 30 Days Qty: 30 1RF trazodone 50 mg Tablet 50 mg PO BEDTIME PRN (Reason: Insomnia) 30 Days Qty: 30 1RF prazosin 1 mg Capsule 1 mg PO BEDTIME 30 Days Qty: 30 1RF Protocol: Hold for SBP< HOLD for SBP < : 90 gabapentin 100 mg Capsule 200 mg PO TID 30 Days Qty: 180 1RF topiramate 100 mg Tablet 100 mg PO BID 30 Days Qty: 60 1RF aripiprazole [Abilify] 5 mg Tablet 7.5 mg PO DAILY 30 Days Qty: 45 1RF Discontinued clonidine HCl 0.1 mg Tablet 0.1 mg PO TID PRN (Reason: Anxiety) 0RF nicotine 21 mg/24 hr Patch 24 Hour 21 mg transdermal DAILY Qty: 28 0RF hydroxyzine HCl 50 mg Tablet 50 mg PO Q6H PRN (Reason: Anxiety) Qty: 30 0RF quetiapine 25 mg Tablet 25 mg PO BID PRN (Reason: anxiety) Qty: 30 0RF Discharge Orders: Discharge Order (Routine); Ordered 07/02/21 Ordered By: Yves Mcmillan Diet: regular diet Activity on Discharge: As tolerated Stand Alone Forms: Patient Portal Discharge page Care Plan Goals: Maintain mood and safe behaviors Take medications as prescribed Continue to pursue sobriety Practice coping skills Continue with outpatient providers and reach out to them as needed Health Concerns: Mood stability and behaviors Sobriety Antiphospholipid Syndrome Cellulites Hypertension Plan of Treatment: Follow up with your PCP, psychiatric provider and other outpatient providers regarding above concerns Take medications as prescribed Assessment: Risk assessment at time of discharge:? Patient was interviewed prior to discharge and found to be fully oriented and without any SI or HI. Patient has insight and demonstrates good judgment in terms of wanting to pursue treatment. Patient is not in imminent risk of harm to self or others and has a safety plan that includes presenting to the closest ER or calling 911 if feeling unsafe.? Patient has been observed closely by nursing and unit staff throughout admission; patient has not engaged in any behaviors that suggest dangerousness to self or others and has demonstrated appropriate behaviors and impulse control Discharge Date/Time: 07/02/21 11:49
[2021-07-02 06:00] VITALS: BP 134/79; PULSE 57; RESP 16; O2SAT 96
[2021-07-02] MEDS: amLODIPine Besylate 10 MG TABLET PO (08:27)
[2021-07-02] MEDS: Cyanocobalamin (Vitamin B-12) 100 MCG TABLET PO (08:27)
[2021-07-02] MEDS: Topiramate 100 MG TABLET PO (08:27)
[2021-07-02] MEDS: lamoTRIgine 25 MG TABLET PO (08:27)
[2021-07-02] MEDS: QUEtiapine Fumarate 50 MG TABLET PO (08:27)
[2021-07-02] MEDS: Multivitamin TABLET 1 TAB PO (08:27)
[2021-07-02] MEDS: ARIPiprazole 5 MG TABLET 7.5 MG PO (08:27)
[2021-07-02] MEDS: Thiamine HCL 100 MG TABLET PO (08:27)
[2021-07-02] MEDS: Gabapentin 100 MG CAPSULE 200 MG PO (08:28)
[2021-07-02] MEDS: methADONE HCl 20 MG/2 ML ORAL.CONC 100 MG PO (08:36)
== END 2021-07-02 11:49 | DRG 885 ==
LOC: HO.ED 06-17 02:39 → HO.PM5 06-18 16:21
PROVIDERS: Clinical Nurse Specialist Psychiatric/Mental Health, Adult; Emergency Medicine; Physician Assistant; Admitting Provider Psychiatry & Neurology Psychiatry; Emergency Provider Emergency Medicine Emergency Medical Services; PCP Nurse Practitioner Family; Visit Provider Psychiatry & Neurology Psychiatry
DX: F33.1 Major depressive disorder, recurrent, moderate (principal); U07.1 COVID-19; R45.851 Suicidal ideations; F11.20 Opioid dependence, uncomplicated; D68.61 Antiphospholipid syndrome; N39.0 Urinary tract infection, site not specified; L03.116 Cellulitis of left lower limb; F17.210 Nicotine dependence, cigarettes, uncomplicated; Z71.6 Tobacco abuse counseling; F43.10 Post-traumatic stress disorder, unspecified; Z86.14 Personal history of Methicillin resistant Staphylococcus aureus infection; I10 Essential (primary) hypertension; Z86.73 Personal history of transient ischemic attack (TIA), and cerebral infarction without residual deficits; L02.425 Furuncle of right lower limb; Z86.718 Personal history of other venous thrombosis and embolism; Z86.711 Personal history of pulmonary embolism; Z88.2 Allergy status to sulfonamides; Z88.5 Allergy status to narcotic agent; Z91.041 Radiographic dye allergy status; Z79.899 Other long term (current) drug therapy
CPT/HCPCS: 36415; 71045; 80053; 80061; 80307; 81001; 81025; 82607; 82746; 83036; 83735; 84439; 84443; 84484; 85007; 85027; 87071; 87086; 87088; 87186; 87635; 93005; 96372; 99285; J1650

== ENCOUNTER 2021-10-16 10:18 | Emergency (ER) | payer MEDICARE, SELFPAY ==
--- NOTE | ~2021-10-16 | XR_ITS ---
EXAMINATION: XR CHEST CLINICAL INFORMATION: Chest pain COMPARISON: June 20, 2021 TECHNIQUE: 2 views of the chest were obtained. FINDINGS: There is no evidence of acute parenchymal disease, pneumothorax, or pleural effusion. Heart normal size. No evidence of pulmonary edema. There is some minor scarring or atelectasis at the lung bases bilaterally. Patient status post previous epigastric surgery. Inferior vena cava filter in place. XR/XR chest 2V IMPRESSION: No significant acute parenchymal disease.
[2021-10-16 10:36] VITALS: BP 103/56; BP 108/62; PULSE 69; PULSE 74; RESP 18; TEMP 37; O2SAT 98; BMI 26.9
--- NOTE | 2021-10-16 11:03 | ECG_ITS ---
Test Reason : abdominal pain Blood Pressure : / mmHG Vent. Rate : 060 BPM Atrial Rate : 060 BPM P-R Int : 218 ms QRS Dur : 086 ms QT Int : 436 ms P-R-T Axes : 045 009 051 degrees QTc Int : 436 ms Sinus rhythm with 1st degree A-V block Otherwise normal ECG When compared with ECG of 20-JUN-2021 21:12, ME interval has increased Nonspecific T wave abnormality no longer evident in Inferior leads T wave inversion no longer evident in Lateral leads Referred By: Miguel Lynch Electronically Signed By:ADRYAN MORILLO
--- NOTE | 2021-10-16 11:05 | ED_ITS ---
HPI - General Adult General Chief complaint: Abdominal Pain Stated complaint: WEAK,LETHARGY,DECREASED URINE OUTPUT FROM DETOX Time Seen by Provider: 10/16/21 10:58 History of Present Illness HPI narrative: this is a 41 years old female presented to the emergency department with a chief complaint of generalized weakness malaise decreased urinary output. The patient has history of substance abuse including opiates and cocaine she on methadone replacement therapy; she has history of MSSA bacteremia and lupus as well Onset (ago): day(s) (1) Location: lower extremity (generalized) Radiation: non-radiation Severity: moderate Relieving factors: none Related Data Home Medications Medication Instructions Recorded Confirmed methadone 10 mg/mL oral concentrate 105 mg PO DAILY 06/18/21 10/16/21 gabapentin 300 mg capsule 300 mg PO TID 09/19/21 10/16/21 mirtazapine 15 mg tablet (Remeron) 30 mg PO BEDTIME 09/19/21 10/16/21 trazodone 150 mg tablet 150 mg PO DAILY 09/19/21 10/16/21 clonidine HCl 0.1 mg tablet 0.1 mg PO TID 10/16/21 10/16/21 gabapentin 100 mg capsule 100 mg PO TID 10/16/21 10/16/21 hydroxyzine HCl 25 mg tablet 25 mg PO DAILY PRN 10/16/21 10/16/21 prazosin 1 mg capsule 2 mg PO BEDTIME 10/16/21 10/16/21 topiramate 50 mg tablet 75 mg PO BID 10/16/21 10/16/21 Previous Rx's Medication Instructions Recorded lamotrigine 100 mg tablet 100 mg PO DAILY 30 Days #30 tab 07/01/21 (Lamictal) lamotrigine 25 mg tablet 25 mg PO DAILY 30 Days #70 tab 07/01/21 multivitamin (Daily-Nirmala) 1 tab PO DAILY 30 Days #30 tab 07/01/21 quetiapine 300 mg tablet 300 mg PO BEDTIME 30 Days #30 tab 07/01/21 sumatriptan succinate 100 mg tablet 50 mg PO DAILY MRX1 PRN 30 Days 07/01/21 #10 tab amlodipine 10 mg tablet 10 mg PO DAILY 30 Days #30 tab 09/19/21 enoxaparin 40 mg/0.4 mL 40 mg (0.4 mL) SUBCUT Q24H 30 Days 09/19/21 subcutaneous syringe #12 ml cyanocobalamin (vitamin B-12) 100 100 mcg PO DAILY 30 Days #30 tab 10/01/21 mcg tablet (Vitamin B-12) Allergies Allergy/AdvReac Type Severity Reaction Status Date / Time bee pollen [BEE STINGS] Allergy Severe Anaphylaxis Verified 09/19/21 08:18 codeine [CODEINE] Allergy Severe ANAPHYLAXIS Verified 09/19/21 08:18 Iodinated Contrast Media Allergy Severe DIFFICULTY Verified 09/19/21 08:18 [IV DYE, IODINE CONTAINING BREATHING CONTRAST ] nut - unspecified [nut] Allergy Intermediate Rash Verified 09/19/21 08:18 shellfish derived Allergy Intermediate Rash Verified 09/19/21 08:18 Sulfa (Sulfonamide Allergy Unknown ANAPHYLAXIS Verified 09/19/21 08:18 Antibiotics) [SULFA (SULFONAMIDE ANTIBIOTICS)] fluoxetine [From Prozac] AdvReac Severe Migraine Verified 09/19/21 08:18 Review of Systems Constitutional: Constitutional: Reports no additional constitutional complaints ENT: Reports system reviewed and no additional complaints, except as documented Respiratory: Respiratory: Reports no additional respiratory complaints Gastrointestinal: Gastrointestinal: Reports no additional gastrointestinal complaints Musculoskeletal: Musculoskeletal: Reports no additional musculoskeletal complaints Psychiatric: Psychiatric: Reports no additional psychiatric complaints PMFSH Past Medical History Medical History Antiphospholipid antibody syndrome Bipolar disorder Candidemia Cellulitis CKD (chronic kidney disease) DVT (deep venous thrombosis) [place] filter in place Lupus Opiate abuse, continuous Opioid use disorder, severe, dependence Pneumonia PTSD (post-traumatic stress disorder) Pulmonary emboli Seizures Substance abuse Surgical History History of appendectomy Hx of splenectomy Social History Social History Household Members: None Housing: Homeless Do you presently have visiting nurse or other home services: No Alcohol intake: never Patient Tobacco Use Status: Current everyday Tobacco user Tobacco use type: Cigarette Cigarette Packs Per Day: 0 Cigarettes Per Day: 2 Years Smoked: 18 e-Cigarette/Vaping Use: Never Used Second Hand Smoke Exposure: Yes Use of substances other than those prescribed or required for medical reasons: No Substance Use Type: Crack/Cocaine and Opiates Advance Directives: Yes Advance Directives on File: Yes Advance Directives Date on File: 02/14/21 Patient : No service: No Current occupational status: employed Sexual orientation: Did not discuss Cognitive needs: No Hearing needs: No Vision needs: No Physical Exam ED Vital Signs: Vital Signs - 24 hr 10/16/21 10:36 10/16/21 12:44 10/16/21 14:04 Temperature 98.6 F 98.2 F Pulse Rate 69 53 55 Respiratory Rate 18 17 15 Blood Pressure 103/56 L 98/55 L 107/65 Pulse Oximetry 98 96 94 BMI result Body Mass Index 26.9 Const General: cooperative Nutritional Appearance: well nourished Orientation/consciousness: patient oriented x3 HENMT Head: Yes normal to inspection General nose exam: Normal external nose present Face and sinus: Yes normal facial exam Mouth: Normal oral and palatal mucosa present Throat: Yes posterior oropharynx normal Neck Neck: Yes normal visual inspection and Yes full ROM Thyroid: Thyroid normal Chest Chest palpation & inspection: normal inspection of the chest Resp Effort & Inspection: normal respiratory effort Cardio Rate: regular rate Rhythm: regular rhythm GI Inspection: Yes normal to inspection Palpation (GI): Soft to palpation, not firm, nontender and no guarding Skin General skin exam: no rashes or lesions noted Neuro General: patient oriented x3 Course Course Course Narrative: she is feeling better at this time, white count is normal the renal failure is at baseline I did do 2 blood cultures just in case given the history of of bacteremia in the past , at this point we could discharge the patient home she is very comfortable with the plan she is feeling better after the IV fluids she ate lunch Procedures EJ/Peripheral Line Arm R: Time Out Performed: Yes Skin Cleansed in Sterile Fashion: Yes Size (gauge): 20 IV Secured and Dressing Applied: Yes Patient Tolerated Procedure: well Additional Comments: RN unable to get IV access asked to insert IV Under US guided linear probe cannulated rt basilic vein with 20 adolfo 1 3/4 inch introcan,good blood return.good flash Medical Decision Making Lab Data Lab results reviewed: Yes I reviewed the patient's lab results. Result diagrams: 10/16/21 11:57 10/16/21 11:58 Labs: Lab Results 10/16/21 10/16/21 10/16/21 Range/Units 11:39 11:57 11:57 WBC 7.5 (4.8-10.8) X10*3/uL RBC 3.70 L (4.20-5.50) X10*6/uL Hgb 11.4 L (12.0-16.0) g/dl Hct 35.6 L (37.0-47.0) % MCV 96.2 (80.0-98.0) fL MCH 30.8 (27.0-33.0) pg MCHC 32.0 (31.0-35.0) g/dl RDW 14.2 (11.0-16.0) % Plt Count 275 (160-400) X10*3/uL MPV 11.4 (9.4-12.3) fL Immature Gran % (Auto) 0.3 (0.0-0.4) % Neut % (Auto) 34.8 L (45-73) % Lymph % (Auto) 47.7 H (20-40) % [place] % (Auto) 10.4 (2-11) % Eos % (Auto) 6.0 H (0-4) % Baso % (Auto) 0.8 (0-2) % Lymph # (Auto) 3.6 (1.2-4.9) X10*3/uL [place] # (Auto) 0.8 (0.1-1.2) X10*3/uL Eos # (Auto) 0.5 H (0.0-0.4) X10*3/uL Baso # (Auto) 0.1 (0.0-0.2) X10*3/uL Abs Immat Gran (auto) 0.02 (0.00-0.03) X10*3/uL Absolute Neuts (auto) 2.6 (2.0-8.3) x10*3/uL Absolute Nucleated RBC 0.000 (0.0-0.012) X10*3/uL Nucleated RBC % (auto) 0.0 (0.0-0.2) /100WBC PT 10.7 (9.9-13.0) SEC INR 0.9 (0.9-1.1) Sodium (135-145) mmol/L Potassium (3.3-5.1) mmol/L Chloride (96-108) mmol/L Carbon Dioxide (22-29) mmol/L Anion Gap (12-20) BUN (9-16) mg/dL Creatinine (0.5-1.4) mg/dL Estim Creat Clear Calc Estimated GFR Random Glucose (60-115) mg/dL Calcium (8.4-10.2) mg/dL Total Bilirubin (0.0-1.0) mg/dL AST (5-31) U/L ALT (0-31) U/L Alkaline Phosphatase (39-117) U/L Total Protein (6.5-8.0) g/dL Albumin (3.5-5.0) g/dL Urine Color Urine Appearance Urine pH (5.0-8.0) Ur Specific [place] (1.005-1.025) Urine Protein (NEG-TRACE) MG/DL Urine Glucose (UA) (NEG) MG/DL Urine Ketones (NEG) MG/DL Urine Blood (NEG) Urine Nitrite (NEG) Ur Leukocyte Esterase (NEG) Urine RBC (0) /HPF Urine WBC (0-4) /HPF Ur Squamous Epith Cells /LPF Urine Bacteria /LPF Urine Opiates Screen Not Detected (Not Detect) Urine Fentanyl Screen Not Detected (Not Detect) Ur Barbiturates Screen Not Detected (Not Detect) Ur Phencyclidine Scrn Not Detected (Not Detect) Ur Amphetamines Screen Not Detected (Not Detect) U Benzodiazepines Scrn Not Detected (Not Detect) Urine Cocaine Screen Not Detected (Not Detect) U Marijuana (THC) Screen Not Detected (Not Detect) 10/16/21 10/16/21 Range/Units 11:58 12:14 WBC (4.8-10.8) X10*3/uL RBC (4.20-5.50) X10*6/uL Hgb (12.0-16.0) g/dl Hct (37.0-47.0) % MCV (80.0-98.0) fL MCH (27.0-33.0) pg MCHC (31.0-35.0) g/dl RDW (11.0-16.0) % Plt Count (160-400) X10*3/uL MPV (9.4-12.3) fL Immature Gran % (Auto) (0.0-0.4) % Neut % (Auto) (45-73) % Lymph % (Auto) (20-40) % [place] % (Auto) (2-11) % Eos % (Auto) (0-4) % Baso % (Auto) (0-2) % Lymph # (Auto) (1.2-4.9) X10*3/uL [place] # (Auto) (0.1-1.2) X10*3/uL Eos # (Auto) (0.0-0.4) X10*3/uL Baso # (Auto) (0.0-0.2) X10*3/uL Abs Immat Gran (auto) (0.00-0.03) X10*3/uL Absolute Neuts (auto) (2.0-8.3) x10*3/uL Absolute Nucleated RBC (0.0-0.012) X10*3/uL Nucleated RBC % (auto) (0.0-0.2) /100WBC PT (9.9-13.0) SEC INR (0.9-1.1) Sodium 136 (135-145) mmol/L Potassium 5.1 D (3.3-5.1) mmol/L Chloride 108 (96-108) mmol/L Carbon Dioxide 23 (22-29) mmol/L Anion Gap 10 L (12-20) BUN 44 H (9-16) mg/dL Creatinine 2.11 H (0.5-1.4) mg/dL Estim Creat Clear Calc 38.6 Estimated GFR 26 Random Glucose 89 (60-115) mg/dL Calcium 9.3 (8.4-10.2) mg/dL Total Bilirubin 0.3 (0.0-1.0) mg/dL AST 21 (5-31) U/L ALT 15 (0-31) U/L Alkaline Phosphatase 105 D (39-117) U/L Total Protein 7.2 (6.5-8.0) g/dL Albumin 3.8 (3.5-5.0) g/dL Urine Color YELLOW Urine Appearance CLEAR Urine pH 6.0 (5.0-8.0) Ur Specific [place] 1.025 (1.005-1.025) Urine Protein TRACE (NEG-TRACE) MG/DL Urine Glucose (UA) NEG (NEG) MG/DL Urine Ketones NEG (NEG) MG/DL Urine Blood NEG (NEG) Urine Nitrite NEG (NEG) Ur Leukocyte Esterase NEG (NEG) Urine RBC 0-2 (0) /HPF Urine WBC 0-2 (0-4) /HPF Ur Squamous Epith Cells 1+ /LPF Urine Bacteria NONE /LPF Urine Opiates Screen (Not Detect) Urine Fentanyl Screen (Not Detect) Ur Barbiturates Screen (Not Detect) Ur Phencyclidine Scrn (Not Detect) Ur Amphetamines Screen (Not Detect) U Benzodiazepines Scrn (Not Detect) Urine Cocaine Screen (Not Detect) U Marijuana (THC) Screen (Not Detect) Imaging Data Chest x-ray: Radiologist's impression: CLINICAL INFORMATION: Chest pain COMPARISON: June 20, 2021 TECHNIQUE: 2 views of the chest were obtained. FINDINGS: There is no evidence of acute parenchymal disease, pneumothorax, or pleural effusion. Heart normal size. No evidence of pulmonary edema. There is some minor scarring or atelectasis at the lung bases bilaterally. Patient status post previous epigastric surgery. Inferior vena cava filter in place. XR/XR chest 2V IMPRESSION: No significant acute parenchymal disease. Dictated By: David Velez MD Signed By: <Electronically signed by David Velez MD in OV> 10/16/21 1208 ECG Data Attestation: I personally reviewed and interpreted this ECG as follows: Prior ECG tracings: available for review Pacemaker model: normal sinus rhythm rate is 60 no ischemic changes Discharge Plan Discharge Clinical Impression: Weakness, Dehydration, Chronic renal failure, stage 2 (mild) Patient Disposition: Home, Self-Care Instructions: Dehydration (ED) Additional Instructions: please follow-up with your primary care physician call in Am and make an appointment, return if you worse Prescriptions: No Action cyanocobalamin (vitamin B-12) [Vitamin B-12] 100 mcg tablet 100 mcg PO DAILY 30 Days Qty: 30 1RF methadone 10 mg/mL Concentrate 105 mg PO DAILY 0RF lamotrigine 25 mg Tablet 25 mg PO DAILY 30 Days Qty: 70 0RF sumatriptan succinate 100 mg Tablet 50 mg PO DAILY MRX1 PRN (Reason: Migraine Headache) 30 Days Qty: 10 1RF multivitamin [Daily-Nirmala] Tablet 1 tab PO DAILY 30 Days Qty: 30 1RF quetiapine 300 mg Tablet 300 mg PO BEDTIME 30 Days Qty: 30 1RF lamotrigine [Lamictal] 100 mg tablet 100 mg PO DAILY 30 Days Qty: 30 0RF gabapentin 100 mg Capsule 100 mg PO TID 0RF topiramate 50 mg Tablet 75 mg PO BID 0RF Rx Instructions: 75 mg bid x7 days (stop 10/16/21),then 50 mg bid x7 days, then 25 mg bid then stop clonidine HCl 0.1 mg tablet 0.1 mg PO TID 0RF Protocol: Hold for SBP< HOLD for SBP < : 90 prazosin 1 mg capsule 2 mg PO BEDTIME 0RF Protocol: Hold for SBP< HOLD for SBP < : 90 hydroxyzine HCl 25 mg tablet 25 mg PO DAILY PRN (Reason: Anxiety) 0RF gabapentin 300 mg capsule 300 mg PO TID 0RF trazodone 150 mg tablet 150 mg PO DAILY 0RF mirtazapine [Remeron] 15 mg tablet 30 mg PO BEDTIME 0RF amlodipine 10 mg tablet 10 mg PO DAILY 30 Days Qty: 30 1RF Protocol: Hold for SBP< HOLD for SBP < : 90 enoxaparin 40 mg/0.4 mL syringe 40 mg subcut Q24H 30 Days Qty: 12 1RF Referrals: Jose Rashid, [employer] [Primary Care Provider] - 2 days Interventions: ED Discharge Assessment Last Done: 10/16/21 15:39 Discharge Date/Time: 10/16/21 15:41
--- NOTE | 2021-10-16 12:00 | PC.NURSE ---
Addendum entered by Eugenie Truong 10/16/21 13:26: Coming from [facility], Patient reports flank discomfort. Awaiting results. Will continue to monitor. Original Note: Patient arrives reporting dysuria, dark colored urine with frothy appearance, dizziness/weakness, and weight gain. Patient is oriented but appears sleepy at this time. IV established by Dr. Lynch via ultrasound. Labs drawn, imaging obtained.
[2021-10-16 12:04] LABS: MANUAL DIFF FLAG NO
[2021-10-16 12:09] LABS: Basophils Absolute Auto 0.1 X10*3/uL (0.0-0.2); Basophils Percent Auto 0.8 % (0-2); Eosinophils Absolute Auto 0.5 X10*3/uL (0.0-0.4); Hematocrit 35.6 % (37.0-47.0); Hemoglobin 11.4 g/dl (12.0-16.0); Imm Gran Abs Auto 0.02 X10*3/uL (0.00-0.03); Imm Gran Pct Auto 0.3 % (0.0-0.4); Lymphocytes Absolute Auto 3.6 X10*3/uL (1.2-4.9); Lymphocytes Percent Auto 47.7 % (20-40); Mean Corpuscular Hemoglobin 30.8 pg (27.0-33.0); Mean Corpuscular Volume 96.2 fL (80.0-98.0); Mean Platelet Volume 11.4 fL (9.4-12.3); Monocytes Absolute Auto 0.8 X10*3/uL (0.1-1.2); Monocytes Percent Auto 10.4 % (2-11); Neutrophils Absolute Auto 2.6 x10*3/uL (2.0-8.3); Neutrophils Percent Auto 34.8 % (45-73); Platelet Count 275 X10*3/uL (160-400); Red Cell Distribution Width 14.2 % (11.0-16.0); White Blood Count 7.5 X10*3/uL (4.8-10.8)
[2021-10-16 12:20] LABS: Appearance Urine CLEAR; Color Urine YELLOW; Glucose Urine UA NEG (NEG); Leukocyte Esterase Urine NEG (NEG); Nitrite Urine NEG (NEG); Specific Gravity - Urine 1.025 (1.005-1.025); Urine Blood NEG (NEG); Urine Ketones NEG (NEG); Urine Protein TRACE MG/DL (NEG-TRACE)
[2021-10-16 12:21] LABS: INTERNATIONAL NORM RATIO 0.9 (0.9-1.1); Prothrombin Time 10.7 SEC (9.9-13.0)
[2021-10-16 12:22] LABS: Amphetamine Screen Urine Not Detected (Not Detect); Barbiturates, Urine Not Detected (Not Detect); Benzodiazepines Screen Urine Not Detected (Not Detect); Cannabinoid Screen Urine Not Detected (Not Detect); Cocaine Screen Urine Not Detected (Not Detect); Fentanyl, urine Not Detected (Not Detect); Opiate Screen Urine Not Detected (Not Detect); Phencyclidine Screen Urine Not Detected (Not Detect)
[2021-10-16 12:24] LABS: Alanine Aminotransferase 15 U/L (0-31); Albumin Level 3.8 g/dL (3.5-5.0); Alkaline Phosphatase 105 U/L (39-117); Anion Gap 10 (12-20); Aspartate Amino Transferase 21 U/L (5-31); Bilirubin Total 0.3 mg/dL (0.0-1.0); Blood Urea Nitrogen 44 mg/dL (9-16); Calcium 9.3 mg/dL (8.4-10.2); Carbon Dioxide 23 mmol/L (22-29); Chloride 108 mmol/L (96-108); Creatinine Clr Calc Pharmacy 38.6; Estimated Glomerular Filt Rate 26; Glucose Random 89 mg/dL (60-115); Potassium 5.1 mmol/L (3.3-5.1); Sodium 136 mmol/L (135-145); Total Protein 7.2 g/dL (6.5-8.0)
[2021-10-16] MEDS: 0.9 % Sodium Chloride 1,000 ML 999 ML IVCONT (12:25)
[2021-10-16 12:32] LABS: RBC Urine 0-2 /HPF (0); Squamous Epithelial Cell Urine 1+ /LPF; WBC Urine 0-2 /HPF (0-4)
[2021-10-16 12:44] VITALS: BP 98/55; PULSE 53; RESP 17; O2SAT 96
[2021-10-16 14:04] VITALS: BP 107/65; PULSE 55; RESP 15; TEMP 36.8; O2SAT 94
--- NOTE | 2021-10-16 14:28 | PHA.MEDREC ---
Pharmacy Consult ? Medication Reconciliation Pharmacy has completed the medication reconciliation.
== END 2021-10-16 15:41 | disposition home or self-care (01) ==
PROVIDERS: Emergency Provider Emergency Medicine; PCP Nurse Practitioner Family
DX: I12.9 Hypertensive chronic kidney disease with stage 1 through stage 4 chronic kidney disease, or unspecified chronic kidney disease (principal); N18.2 Chronic kidney disease, stage 2 (mild); R53.1 Weakness; E86.0 Dehydration; F11.20 Opioid dependence, uncomplicated; F17.200 Nicotine dependence, unspecified, uncomplicated; Z79.899 Other long term (current) drug therapy
CPT/HCPCS: 36415; 71046; 80053; 80307; 81001; 85025; 85610; 87040; 93005; 96360; 99284

== ENCOUNTER 2021-12-18 19:51 | Observation (INO) | payer OTHER, SELFPAY ==
--- NOTE | ~2021-12-18 | XR_ITS ---
EXAMINATION: XR CHEST CLINICAL INFORMATION: Chest pain COMPARISON: Chest x-ray 10/16/2021 TECHNIQUE: Frontal view of the chest was obtained. FINDINGS: Cardiac silhouette is normal in size. The lungs appear mildly hyperinflated. There is no gross lobar consolidation. No pleural effusion or pneumothorax. Surgical clips project over the left upper abdomen. IVC filter partially visualized. XR/XR chest 1V IMPRESSION: No acute pulmonary pathology.
--- NOTE | ~2021-12-18 | NM_ITS ---
PULMONARY PERFUSION ONLY STUDY: CLINICAL INDICATION: Chest pain. History of pulmonary thromboembolism/DVT. Currently off anticoagulation for one week. Allergic to IV contrast and several cysts. PROCEDURE: Following the intravenous administration of 1 millicuries technetium 99m MAA, images of the chest were obtained in multiple projections using a gamma scintiphotographic camera. Given the history of pulmonary hypertension, only1 mCi of technetium 99m labeled MAA was intravenously administered. COMPARISON: Chest radiograph done on 12/18/2021. Prior PET scan done on 05/18/2014 and bilateral lower extremity DVT study done on 12/19/2021. PERFUSION IMAGES: No segmental perfusion defects or other perfusion abnormalities are noted. The appearance of the lung parenchyma appears similar to that of the prior study dated 05/18/2014. NM/NM pul perfusion IMPRESSION: Based on perfusion only modified PIOPED 2 criteria, pulmonary thromboembolism is considered absent.
--- NOTE | ~2021-12-18 | US_ITS ---
EXAMINATION: US VENOUS ULTRASOUND WITH DOPPLER LOWER EXTREMITY, BILATERAL CLINICAL INFORMATION: History of DVT COMPARISON: Bilateral duplex 05/09/2021 TECHNIQUE: Ultrasound of the deep veins is performed from the hip to the calf with compression sonography and color and pulse Doppler assessment. Spectral analysis with color-flow imaging is performed. FINDINGS: RIGHT: There is normal venous compression and respiratory variation and augmented flow. The visualized common femoral vein, superficial femoral vein, profunda femoral vein, popliteal vein, and the trifurcation region shows no evidence of deep venous thrombosis. There is no significant popliteal fossa cyst. Prominent groin lymph nodes are seen LEFT: There is normal venous compression and respiratory variation and augmented flow. The visualized common femoral vein, superficial femoral vein, profunda femoral vein, popliteal vein, and the trifurcation region shows no evidence of deep venous thrombosis. There is no significant popliteal fossa cyst. Prominent groin lymph nodes are seen If the patient's symptoms persist, followup ultrasound in 5 days 7 days might be of value to exclude proximal propagation from a non-visualized calf vein. US/US venous duplex LE IMPRESSION: No DVT demonstrated in either lower extremity.
[2021-12-18 20:18] VITALS: BP 171/99; PULSE 77; RESP 18; TEMP 37.6; O2SAT 97; BMI 27.3
--- NOTE | 2021-12-18 20:20 | ECG_ITS ---
Test Reason : CHEST PAIN Blood Pressure : / mmHG Vent. Rate : 067 BPM Atrial Rate : 067 BPM P-R Int : 154 ms QRS Dur : 078 ms QT Int : 384 ms P-R-T Axes : 044 019 037 degrees QTc Int : 405 ms Normal sinus rhythm Minimal voltage criteria for LVH, may be normal variant ( Sokolow-Singh ) Borderline ECG When compared with ECG of 16-OCT-2021 11:20, WI interval has decreased Referred By: Generic ED Physician Electronically Signed By:Juan Washington
[2021-12-18 21:26] LABS: MANUAL DIFF FLAG NO
[2021-12-18 21:30] LABS: Basophils Absolute Auto 0.1 X10*3/uL (0.0-0.2); Basophils Percent Auto 0.5 % (0-2); Eosinophils Absolute Auto 0.6 X10*3/uL (0.0-0.4); Eosinophils Percent Auto 4.4 % (0-4); Hemoglobin 12.8 g/dl (12.0-16.0); Imm Gran Abs Auto 0.05 X10*3/uL (0.00-0.03); Imm Gran Pct Auto 0.4 % (0.0-0.4); Lymphocytes Absolute Auto 3.2 X10*3/uL (1.2-4.9); Lymphocytes Percent Auto 25.4 % (20-40); Mean Corpuscular HGB Conc 34.6 g/dl (31.0-35.0); Mean Corpuscular Hemoglobin 31.5 pg (27.0-33.0); Mean Corpuscular Volume 91.1 fL (80.0-98.0); Mean Platelet Volume 11.4 fL (9.4-12.3); Monocytes Absolute Auto 1.3 X10*3/uL (0.1-1.2); Neutrophils Absolute Auto 7.5 x10*3/uL (2.0-8.3); Neutrophils Percent Auto 59.3 % (45-73); Platelet Count 287 X10*3/uL (160-400); Red Blood Count 4.06 X10*6/uL (4.20-5.50); Red Cell Distribution Width 13.2 % (11.0-16.0); White Blood Count 12.7 X10*3/uL (4.8-10.8)
[2021-12-18 21:44] LABS: Alanine Aminotransferase 34 U/L (0-31); Albumin Level 4.2 g/dL (3.5-5.0); Alkaline Phosphatase 113 U/L (39-117); Anion Gap 16 (12-20); Aspartate Amino Transferase 55 U/L (5-31); Bilirubin Total 0.5 mg/dL (0.0-1.0); Blood Urea Nitrogen 30 mg/dL (9-16); Calcium 8.8 mg/dL (8.4-10.2); Carbon Dioxide 19 mmol/L (22-29); Chloride 104 mmol/L (96-108); Estimated Glomerular Filt Rate 16; Glucose Random 123 mg/dL (60-115); Potassium 3.8 mmol/L (3.3-5.1); Sodium 135 mmol/L (135-145); Total Protein 7.8 g/dL (6.5-8.0)
[2021-12-18 21:46] LABS: Troponin-I High Sensitivity 17.8 ng/L (<3.5-17.0)
--- NOTE | 2021-12-18 22:53 | ED.CHESTPAIN ---
HPI - Chest Pain General Chief Complaint: Chest Pain Stated Complaint: cp, diff breathing Time Seen by Provider: 12/18/21 22:53 Source: patient Mode of arrival: ambulatory Limitations: no limitations History of Present Illness HPI narrative: Patient history of substance abuse use IV cocaine last use yesterday complaining of whole body aches multiple complaints was sweating a lot in the morning patient was sober for 1 year started using cocaine again for last 1 week denies any suicidal ideation significant depression Related Data Home Medications Medication Instructions Recorded Confirmed methadone 10 mg/mL oral concentrate 105 mg PO DAILY 06/18/21 11/25/21 gabapentin 300 mg capsule 300 mg PO TID 09/19/21 11/25/21 mirtazapine 15 mg tablet (Remeron) 30 mg PO BEDTIME 09/19/21 11/25/21 trazodone 150 mg tablet 150 mg PO DAILY 09/19/21 11/25/21 clonidine HCl 0.1 mg tablet 0.1 mg PO TID 10/16/21 11/25/21 gabapentin 100 mg capsule 100 mg PO TID 10/16/21 11/25/21 hydroxyzine HCl 25 mg tablet 25 mg PO DAILY PRN Anxiety 10/16/21 11/25/21 prazosin 1 mg capsule 2 mg PO BEDTIME 10/16/21 11/25/21 Previous Rx's Medication Instructions Recorded lamotrigine 100 mg tablet 100 mg PO DAILY 30 days #30 tabs 07/01/21 (Lamictal) lamotrigine 25 mg tablet 25 mg PO DAILY 30 days #70 tabs 07/01/21 multivitamin (Daily-Nirmala tablet) 1 tab PO DAILY 30 days #30 tabs 07/01/21 quetiapine 300 mg tablet 300 mg PO BEDTIME 30 days #30 tabs 07/01/21 sumatriptan succinate 100 mg tablet 50 mg PO DAILY MRX1 PRN Migraine 07/01/21 Headache 30 days #10 tabs enoxaparin 40 mg/0.4 mL 40 mg (0.4 mL) subcut Q24H 30 days 09/19/21 subcutaneous syringe #12 mL cyanocobalamin (vitamin B-12) 100 100 mcg PO DAILY 30 days #30 tabs 10/01/21 mcg tablet (Vitamin B-12) amlodipine 10 mg tablet 10 mg PO DAILY 30 days #30 tabs 12/04/21 Allergies Allergy/AdvReac Type Severity Reaction Status Date / Time bee pollen [BEE STINGS] Allergy Severe Anaphylaxis Verified 11/25/21 17:26 codeine [CODEINE] Allergy Severe ANAPHYLAXIS Verified 11/25/21 17:26 Iodinated Contrast Media Allergy Severe DIFFICULTY Verified 11/25/21 17:26 [IV DYE, IODINE CONTAINING BREATHING CONTRAST ] nut - unspecified [nut] Allergy Intermediate Rash Verified 11/25/21 17:26 shellfish derived Allergy Intermediate Rash Verified 11/25/21 17:26 Sulfa (Sulfonamide Allergy Unknown ANAPHYLAXIS Verified 11/25/21 17:26 Antibiotics) [SULFA (SULFONAMIDE ANTIBIOTICS)] fluoxetine [From Prozac] AdvReac Severe Migraine Verified 11/25/21 17:26 PMFSH Past Medical History Medical History Antiphospholipid antibody syndrome Bipolar disorder Candidemia Cellulitis CKD (chronic kidney disease) DVT (deep venous thrombosis) [place] filter in place Lupus Opiate abuse, continuous Opioid use disorder, severe, dependence Pneumonia PTSD (post-traumatic stress disorder) Pulmonary emboli Seizures Substance abuse Surgical History History of appendectomy Hx of splenectomy Social History Social History Household Members: None Housing: Homeless (program ) Do you presently have visiting nurse or other home services: No Alcohol intake: never Patient Tobacco Use Status: Current everyday Tobacco user Tobacco use type: Cigarette Cigarette Packs Per Day: 0 Cigarettes Per Day: 2 Years Smoked: 18 e-Cigarette/Vaping Use: Never Used Second Hand Smoke Exposure: Yes Substance Use Type: Crack/Cocaine and Opiates Advance Directives: Yes Advance Directives on File: Yes Advance Directives Date on File: 02/14/21 service: No Current occupational status: employed and student Sexual orientation: Did not discuss Cognitive needs: No Hearing needs: No Vision needs: No Physical Exam Vital Signs: Vital Signs: Last Vital Signs Temp 99.7 F 12/18/21 20:18 Pulse 60 12/19/21 00:04 Resp 18 12/19/21 00:04 BP 173/98 H 12/19/21 00:04 Pulse Ox 98 12/19/21 00:04 O2 Del Method 12/19/21 00:04 BMI result Body Mass Index 27.3 Appearance: Alert. Oriented X3. No acute distress. Eyes: PERRLA, No Nystagmus ENT: Pharynx normal. Oral Mucosa moist Neck: Normal inspection. Neck supple. CVS: Normal heart rate and rhythm. Pulses normal. Respiratory: No respiratory distress. Equal air entry bilateral, no wheezing/rales/rhonchi Abdomen: Soft and nontender. Bowel sounds are present, no mass palpable, no CVA tenderness Skin: Skin warm and dry. Normal skin color. Normal skin turgor. Extremities: No lower extremity edema. No calf tenderness IVDA karen Neuro: Oriented X 3. No motor deficit. No sensory deficit.No cerebellar signs , cranial nerves II-XII intact MDM - Chest Pain MDM Narrative Medical decision making narrative: 01:30 Patient IV cocaine user came with multiple complaints workup showed GERRI with creatinine of 3.15 in 10/20 creatinine was 2.11. Will give 2 L IV fluids case discussed with hospitalist Dr. Whitehead would like to repeat chemistry before admission patient's lactic acid is normal no signs of sepsis at this time Medical Records Data Attestation: I reviewed the patient's medical records. Lab Data Attestation: I reviewed the patient's lab results. Result diagrams: 12/18/21 21:20 12/18/21 21:20 Labs: Lab Results 12/18/21 12/18/21 12/18/21 Range/Units 21:20 21:20 21:20 WBC 12.7 H (4.8-10.8) X10*3/uL RBC 4.06 L (4.20-5.50) X10*6/uL Hgb 12.8 (12.0-16.0) g/dl Hct 37.0 (37.0-47.0) % MCV 91.1 (80.0-98.0) fL MCH 31.5 (27.0-33.0) pg MCHC 34.6 (31.0-35.0) g/dl RDW 13.2 (11.0-16.0) % Plt Count 287 (160-400) X10*3/uL MPV 11.4 (9.4-12.3) fL Immature Gran % (Auto) 0.4 (0.0-0.4) % Neut % (Auto) 59.3 (45-73) % Lymph % (Auto) 25.4 (20-40) % [place] % (Auto) 10.0 (2-11) % Eos % (Auto) 4.4 H (0-4) % Baso % (Auto) 0.5 (0-2) % Lymph # (Auto) 3.2 (1.2-4.9) X10*3/uL [place] # (Auto) 1.3 H (0.1-1.2) X10*3/uL Eos # (Auto) 0.6 H (0.0-0.4) X10*3/uL Baso # (Auto) 0.1 (0.0-0.2) X10*3/uL Abs Immat Gran (auto) 0.05 H (0.00-0.03) X10*3/uL Absolute Neuts (auto) 7.5 (2.0-8.3) x10*3/uL Absolute Nucleated RBC 0.000 (0.0-0.012) X10*3/uL Nucleated RBC % (auto) 0.0 (0.0-0.2) /100WBC Sodium 135 (135-145) mmol/L Potassium 3.8 D (3.3-5.1) mmol/L Chloride 104 (96-108) mmol/L Carbon Dioxide 19 L (22-29) mmol/L Anion Gap 16 (12-20) BUN 30 H (9-16) mg/dL Creatinine 3.15 H (0.5-1.4) mg/dL Estim Creat Clear Calc 26.0 Estimated GFR 16 Random Glucose 123 H (60-115) mg/dL Lactic Acid (0.5-2.0) mmol/L Calcium 8.8 (8.4-10.2) mg/dL Total Bilirubin 0.5 (0.0-1.0) mg/dL AST 55 H (5-31) U/L ALT 34 H (0-31) U/L Alkaline Phosphatase 113 (39-117) U/L Troponin I High Sens 17.8 H D (<3.5-17.0) ng/L Total Protein 7.8 (6.5-8.0) g/dL Albumin 4.2 (3.5-5.0) g/dL COVID-19 (ADAM) (Negative) COVID-19 Clin Com 12/18/21 12/18/21 Range/Units 23:42 23:56 WBC (4.8-10.8) X10*3/uL RBC (4.20-5.50) X10*6/uL Hgb (12.0-16.0) g/dl Hct (37.0-47.0) % MCV (80.0-98.0) fL MCH (27.0-33.0) pg MCHC (31.0-35.0) g/dl RDW (11.0-16.0) % Plt Count (160-400) X10*3/uL MPV (9.4-12.3) fL Immature Gran % (Auto) (0.0-0.4) % Neut % (Auto) (45-73) % Lymph % (Auto) (20-40) % [place] % (Auto) (2-11) % Eos % (Auto) (0-4) % Baso % (Auto) (0-2) % Lymph # (Auto) (1.2-4.9) X10*3/uL [place] # (Auto) (0.1-1.2) X10*3/uL Eos # (Auto) (0.0-0.4) X10*3/uL Baso # (Auto) (0.0-0.2) X10*3/uL Abs Immat Gran (auto) (0.00-0.03) X10*3/uL Absolute Neuts (auto) (2.0-8.3) x10*3/uL Absolute Nucleated RBC (0.0-0.012) X10*3/uL Nucleated RBC % (auto) (0.0-0.2) /100WBC Sodium (135-145) mmol/L Potassium (3.3-5.1) mmol/L Chloride (96-108) mmol/L Carbon Dioxide (22-29) mmol/L Anion Gap (12-20) BUN (9-16) mg/dL Creatinine (0.5-1.4) mg/dL Estim Creat Clear Calc Estimated GFR Random Glucose (60-115) mg/dL Lactic Acid 0.7 (0.5-2.0) mmol/L Calcium (8.4-10.2) mg/dL Total Bilirubin (0.0-1.0) mg/dL AST (5-31) U/L ALT (0-31) U/L Alkaline Phosphatase (39-117) U/L Troponin I High Sens (<3.5-17.0) ng/L Total Protein (6.5-8.0) g/dL Albumin (3.5-5.0) g/dL COVID-19 (ADAM) Negative (Negative) COVID-19 Clin Com See Note Discharge Plan Discharge Clinical Impression: Cocaine abuse, Acute renal failure superimposed on chronic kidney disease Patient Disposition: Still a Patient Prescriptions: No Action cyanocobalamin (vitamin B-12) [Vitamin B-12] 100 mcg tablet 100 mcg PO DAILY 30 Days Qty: 30 1RF amlodipine 10 mg tablet 10 mg PO DAILY 30 Days Qty: 30 1RF Protocol: Hold for SBP< HOLD for SBP < : 90 methadone 10 mg/mL Concentrate 105 mg PO DAILY lamotrigine 25 mg Tablet 25 mg PO DAILY 30 Days Qty: 70 0RF sumatriptan succinate 100 mg Tablet 50 mg PO DAILY MRX1 PRN (Reason: Migraine Headache) 30 Days Qty: 10 1RF multivitamin [Daily-Nirmala] Tablet 1 tab PO DAILY 30 Days Qty: 30 1RF quetiapine 300 mg Tablet 300 mg PO BEDTIME 30 Days Qty: 30 1RF lamotrigine [Lamictal] 100 mg tablet 100 mg PO DAILY 30 Days Qty: 30 0RF gabapentin 100 mg Capsule 100 mg PO TID clonidine HCl 0.1 mg tablet 0.1 mg PO TID Protocol: Hold for SBP< HOLD for SBP < : 90 prazosin 1 mg capsule 2 mg PO BEDTIME Protocol: Hold for SBP< HOLD for SBP < : 90 hydroxyzine HCl 25 mg tablet 25 mg PO DAILY PRN (Reason: Anxiety) gabapentin 300 mg capsule 300 mg PO TID trazodone 150 mg tablet 150 mg PO DAILY mirtazapine [Remeron] 15 mg tablet 30 mg PO BEDTIME enoxaparin 40 mg/0.4 mL syringe 40 mg subcut Q24H 30 Days Qty: 12 1RF
[2021-12-18] MEDS: 0.9 % Sodium Chloride 1,000 ML 999 ML IV (23:59)
[2021-12-18] MEDS: LORazepam 1 MG TABLET 2 MG PO (23:59)
[2021-12-18] MEDS: Piperacillin Sodium/Tazobactam 3.375 GM in 0.9 % Sodium Chloride 50 ML IV (23:59)
[2021-12-19] VITALS (11 sets, daily range): BP systolic 122–173; BP diastolic 67–99; PULSE 60–98; RESP 14–20; TEMP 36.6–37.1; O2SAT 95–98; BMI 28.2; BMI 31.0
[2021-12-19 00:12] LABS: COVID-19 Test Negative (Negative)
[2021-12-19 00:21] LABS: Lactic Acid 0.7 mmol/L (0.5-2.0)
[2021-12-19] MEDS: 0.9 % Sodium Chloride 1,000 ML 999 ML IV (01:28)
[2021-12-19 03:25] LABS: Anion Gap 12 (12-20); Blood Urea Nitrogen 26 mg/dL (9-16); Calcium 8.1 mg/dL (8.4-10.2); Carbon Dioxide 20 mmol/L (22-29); Chloride 109 mmol/L (96-108); Creatinine Clr Calc Pharmacy 31.5; Estimated Glomerular Filt Rate 20; Glucose Random 117 mg/dL (60-115); Potassium 3.4 mmol/L (3.3-5.1); Sodium 138 mmol/L (135-145)
[2021-12-19] MEDS: 0.9 % Sodium Chloride 1,000 ML 999 ML IVCONT (04:07)
[2021-12-19 06:03] LABS: Anion Gap 10 (12-20); Blood Urea Nitrogen 24 mg/dL (9-16); Calcium 8.1 mg/dL (8.4-10.2); Carbon Dioxide 20 mmol/L (22-29); Chloride 111 mmol/L (96-108); Creatinine Clr Calc Pharmacy 35.4; Estimated Glomerular Filt Rate 23; Glucose Random 107 mg/dL (60-115); Potassium 3.4 mmol/L (3.3-5.1); Sodium 138 mmol/L (135-145)
--- NOTE | 2021-12-19 08:22 | PHA.MEDREC ---
Pharmacy Consult ? Medication Reconciliation Pharmacy has completed the medication reconciliation. Patient has not taken any medications for 5 days, including methadone. Patient states they are now on 110 mg and use [facility] as their OTP. Spoke to Lu COFFEY who will complete methadone verification form
--- NOTE | 2021-12-19 09:10 | HE.PHANOTE ---
re methadone verification form submitted. 110mg uses take home bottles, pt reported last taken 3-4 days ago
--- NOTE | 2021-12-19 11:05 | P.HPHOSP_ITS ---
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 Patient reports sobriety of 1 year, however relapsed 1 week ago at and has been daily injecting cocaine. She reports noncompliant says with her medications including Lovenox. In fact, when taking the history she forgets the mention that she has a history of PE/DVT and is supposed to be on Lovenox. She reports not taking Lovenox for more than 1 week. She describes her chest pain as left-sided nonradiating, persistent and severity of 10/10. She describes it as a pressure type sensation as well as sharp. She denies any such prior pain. She reports that her chest pain has now completely resolved. She reports being depressed but denies any suicidality. Upon arrival to the emergency room she was noted to have a serum creatinine over 3, with a baseline ranging from 1.5-2.2. She was given 2 L of intravenous fluids with improvement in her kidney function but not at baseline. She will be given more IV fluids with repeat serum chemistries tomorrow. Furthermore given her noncompliance with Lovenox and pleuritic type chest pain will proceed with a V/Q lower venous Doppler. Patient's only request currently is for her methadone. Review of Systems Review of Systems: Negative except HPI [facility] Medical History Antiphospholipid antibody syndrome Bipolar disorder Candidemia Cellulitis CKD (chronic kidney disease) DVT (deep venous thrombosis) Sander filter in place Lupus Opiate abuse, continuous Opioid use disorder, severe, dependence Pneumonia PTSD (post-traumatic stress disorder) Pulmonary emboli Seizures Substance abuse Surgical History History of appendectomy Hx of splenectomy Social History Household Members: None Housing: Homeless (program ) Do you presently have visiting nurse or other home services: No Alcohol intake: never Patient Tobacco Use Status: Current everyday Tobacco user Tobacco use type: Cigarette Cigarette Packs Per Day: 0 Cigarettes Per Day: 2 Years Smoked: 18 e-Cigarette/Vaping Use: Never Used Second Hand Smoke Exposure: Yes Substance Use Type: Crack/Cocaine and Opiates Advance Directives: Yes Advance Directives on File: Yes Advance Directives Date on File: 02/14/21 service: No Current occupational status: employed and student Sexual orientation: Did not discuss Cognitive needs: No Hearing needs: No Vision needs: No Meds Allergies Allergy/AdvReac Type Severity Reaction Status Date / Time bee pollen [BEE STINGS] Allergy Severe Anaphylaxis Verified 11/25/21 17:26 codeine [CODEINE] Allergy Severe ANAPHYLAXIS Verified 11/25/21 17:26 Iodinated Contrast Media Allergy Severe DIFFICULTY Verified 11/25/21 17:26 [IV DYE, IODINE CONTAINING BREATHING CONTRAST ] nut - unspecified [nut] Allergy Intermediate Rash Verified 11/25/21 17:26 shellfish derived Allergy Intermediate Rash Verified 11/25/21 17:26 Sulfa (Sulfonamide Allergy Unknown ANAPHYLAXIS Verified 11/25/21 17:26 Antibiotics) [SULFA (SULFONAMIDE ANTIBIOTICS)] fluoxetine [From Prozac] AdvReac Severe Migraine Verified 11/25/21 17:26 Active Medications: Current Medications Acetaminophen (Acetaminophen 325 Mg Tablet) 650 mg PO Q6H PRN PRN Reason: Pain, Mild (Pain Scale 1-3) Enoxaparin Sodium (Enoxaparin Sodium 40 Mg/0.4 Ml Syringe) 40 mg SUBCUT Q24H [facility] Lactated Ringer's (Lr) 1,000 mls @ 100 mls/hr IVCONT .Q10H [facility] Stop: 12/20/21 06:59 Ondansetron HCl (Ondansetron Hcl 4 Mg/2 Ml Vial) 4 mg IVPUSH Q8H PRN PRN Reason: Nausea and Vomiting Sodium Chloride (0.9 % Sodium Chloride Flush 3 Ml Syringe) 3 ml IVFLUSH QSHIFT [facility] Home Medications Medication Instructions Recorded Confirmed Last Taken Type methadone 10 mg/mL oral concentrate 110 mg PO DAILY 06/18/21 12/19/21 10/16/21 History gabapentin 300 mg capsule 300 mg PO TID 09/19/21 12/19/21 5 Days Ago History ~12/14/21 mirtazapine 15 mg tablet (Remeron) 45 mg PO BEDTIME 09/19/21 12/19/21 5 Days Ago History ~12/14/21 trazodone 150 mg tablet 150 mg PO BEDTIME 09/19/21 12/19/21 5 Days Ago History ~12/14/21 clonidine HCl 0.1 mg tablet 0.1 mg PO TID 10/16/21 12/19/21 5 Days Ago History ~12/14/21 gabapentin 100 mg capsule 100 mg PO TID 10/16/21 12/19/21 5 Days Ago History ~12/14/21 hydroxyzine HCl 25 mg tablet 25 mg PO DAILY PRN Anxiety 10/16/21 12/19/21 5 Days Ago History ~12/14/21 prazosin 1 mg capsule 2 mg PO BEDTIME 10/16/21 12/19/21 5 Days Ago History ~12/14/21 lumateperone 42 mg capsule 1 cap PO DAILY 12/19/21 12/19/21 5 Days Ago History (Caplyta) ~12/14/21 Physical Exam Vital Signs and Narrative: Vital Signs: Last Vital Signs Temp 98.7 F 12/19/21 10:44 Pulse 76 12/19/21 10:44 Resp 20 12/19/21 10:44 BP 150/95 H 12/19/21 10:44 Pulse Ox 96 12/19/21 10:44 O2 Del Method 12/19/21 10:44 BMI result Body Mass Index 27.3 Const: Other: Constitutional - Awake and Alert, No apparent distress, unkempt Eyes - PERRLA, EOMI Cardiovascular - S1S2, RRR, No edema Respiratory - Normal lung expansion, Normal respiratory effort, No respiratory distress, CTA bilaterally Gastrointestinal - NT / ND; +BS; No rebound or guarding - No CVA tenderness Extremities - no calf tenderness bilaterally, no swelling Musculoskeletal - Normal inspection, normal ROM Skin - Warm/Dry Neurological - Alert & oriented x3, No focal deficit Psychological - Appropriate affect Results Labs CBC and Chem 7: 12/18/21 21:20 12/19/21 05:45 Labs: Laboratory Results - last 24 hr 12/18/21 12/18/21 12/18/21 21:20 21:20 21:20 MCV 91.1 MCH 31.5 MCHC 34.6 RDW 13.2 Plt Count 287 MPV 11.4 Immature Gran % (Auto) 0.4 Neut % (Auto) 59.3 Lymph % (Auto) 25.4 [place] % (Auto) 10.0 Eos % (Auto) 4.4 H Baso % (Auto) 0.5 Lymph # (Auto) 3.2 [place] # (Auto) 1.3 H Eos # (Auto) 0.6 H Baso # (Auto) 0.1 Abs Immat Gran (auto) 0.05 H Absolute Neuts (auto) 7.5 Absolute Nucleated RBC 0.000 Nucleated RBC % (auto) 0.0 Anion Gap 16 Estim Creat Clear Calc 26.0 Estimated GFR 16 Random Glucose 123 H Lactic Acid Calcium 8.8 Total Bilirubin 0.5 AST 55 H ALT 34 H Alkaline Phosphatase 113 Troponin I High Sens 17.8 H D Total Protein 7.8 Albumin 4.2 COVID-19 ([facility]) COVID-19 Clin Com 12/18/21 12/18/21 12/19/21 23:42 23:56 02:48 MCV MCH MCHC RDW Plt Count MPV Immature Gran % (Auto) Neut % (Auto) Lymph % (Auto) [place] % (Auto) Eos % (Auto) Baso % (Auto) Lymph # (Auto) [place] # (Auto) Eos # (Auto) Baso # (Auto) Abs Immat Gran (auto) Absolute Neuts (auto) Absolute Nucleated RBC Nucleated RBC % (auto) Anion Gap 12 Estim Creat Clear Calc 31.5 Estimated GFR 20 Random Glucose 117 H Lactic Acid 0.7 Calcium 8.1 L D Total Bilirubin AST ALT Alkaline Phosphatase Troponin I High Sens Total Protein Albumin COVID-19 ([facility]) Negative COVID-19 Clin Com See Note 12/19/21 05:45 MCV MCH MCHC RDW Plt Count MPV Immature Gran % (Auto) Neut % (Auto) Lymph % (Auto) [place] % (Auto) Eos % (Auto) Baso % (Auto) Lymph # (Auto) [place] # (Auto) Eos # (Auto) Baso # (Auto) Abs Immat Gran (auto) Absolute Neuts (auto) Absolute Nucleated RBC Nucleated RBC % (auto) Anion Gap 10 L Estim Creat Clear Calc 35.4 Estimated GFR 23 Random Glucose 107 Lactic Acid Calcium 8.1 L Total Bilirubin AST ALT Alkaline Phosphatase Troponin I High Sens Total Protein Albumin COVID-19 ([facility]) COVID-19 Clin Com Imaging Radiologist's Impressions: Impressions Chest X-Ray 12/18/21 21:01 IMPRESSION: No acute pulmonary pathology. Assessment and Plan (1) Acute renal failure superimposed on chronic kidney disease: Status: Acute (2) Cocaine abuse: Status: Acute Plan This is a 41-year-old female with a history of lupus/lupus anticoagulant who is to be on Lovenox indefinitely due to multiple PEs and DVTs in the past. She presents to the hospital with chest pain which is now resolved. She is noted to have acute on chronic kidney injury. She will be admitted for further workup. 1. GERRI on CKD 3 Gerri eyelid likely due to poor oral intake Has improved with IV fluids, will give LR for 2 more L Repeat BMP tomorrow 2.Chest pain Possibly cocaine induced and now resolved High sensitivity troponins are flat an EKG without any acute ischemic findings Given her history of prior PE and noncompliance with Lovenox, will check a V/Q and rule out PE 3. Cocaine e abuse Reports cocaine abuse but denies opiates Will check urine drug screen Complete cessation has been advised to the patient Interested in a rehabilitation program, consult care team 4. Opiate dependence On methadone maintenance therapy, will continue once dose verified 5. History of lupus/lupus anticoagulant 5a. History of prior PEs and DVTs, status post IVC filter placement Is supposed to be on Lovenox injections daily, but reports last use more than 1 week ago Dose to be verified and will initiated once completed by pharmacy 6. Hypertension Norvasc 7. Mood Continue her baseline meds Reports depression but denies SI, will consult care team Full Code DVT pptx - will be on treatment dose lovenox Quality Stroke Does the patient have a stroke diagnosis?: No VTE Prior VTE?: Yes VTE Risk Level:: Medical - moderate - high VTE Device Contraindication: N/A - Device Ordered VTE Drug Contraindication: N/A - Med Ordered
[2021-12-19 11:23] LABS: Troponin-I High Sensitivity 8.5 ng/L (<3.5-17.0)
[2021-12-19] MEDS: methADONE HCl 20 MG/2 ML ORAL.CONC 110 MG PO (11:40)
[2021-12-19] MEDS: amLODIPine Besylate 10 MG TABLET PO (11:40)
[2021-12-19] MEDS: Lactated Ringers 1,000 ML 100 ML IVCONT ×2 (11:43→21:37)
[2021-12-19] MEDS: Enoxaparin Sodium 120 MG/0.8 ML SYRINGE SUBCUT (12:35)
[2021-12-19] MEDS: cloNIDine HCL 0.1 MG TABLET PO ×2 (14:45→21:36)
[2021-12-19] MEDS: Gabapentin 300 MG CAPSULE PO ×2 (14:45→21:36)
[2021-12-19] MEDS: Gabapentin 100 MG CAPSULE PO ×2 (14:45→21:37)
--- NOTE | 2021-12-19 15:11 | MHC.RECOVRN ---
Met with pt in ED7 to discuss substance use. Pt familiar with t/w from previous consults. Pt sitting in bed, awake, alert, easily engages in conversation yet tearful. Pt reports returning to use on 12/11 after approx 1 year in recovery. Pt unable to determine precipitant to use, however, reports recent symptoms of depression. Pt reports using heroin and cocaine, a lot, $300-$400 a day, [place]. Pt is currently enrolled in school and has been living at [facility] in [place], where pt would like to return if able. Pt is taking 110 mg methadone daily, last dose 12/11, states I left 20 take home bottles. Pt is scheduled to attend court on 12/23 regarding custody of her children. T/w spoke with Valerie, [employer] of [facility], who reports pt is able to return in medically stable and not experiencing withdrawal. This information will be relayed to pt by t/w. Dhaval continue to follow.
--- NOTE | 2021-12-19 17:31 | PC.NURSE ---
pts iv infiltrated, dr posadas notified that there was no ultrasound available, provider notified us that dr. swann from the ed will attempt
--- NOTE | 2021-12-19 18:31 | PC.NURSE ---
patient a&ox3, c/o generalized pain, iv inserted by us by dr. swann from the ed, pt ivf now running per order, cardiac care nurse intact nsr, pt vss, will continue to monitor.
[2021-12-19] MEDS: QUEtiapine Fumarate 300 MG TABLET PO (21:36)
[2021-12-19] MEDS: Prazosin HCL 1 MG CAPSULE 2 MG PO (21:36)
[2021-12-19] MEDS: traZODone HCL 50 MG TABLET 150 MG PO (21:36)
[2021-12-19] MEDS: Mirtazapine 15 MG TABLET 45 MG PO (21:36)
[2021-12-19] MEDS: Acetaminophen 325 MG TABLET 650 MG PO (21:36)
[2021-12-20 03:37] VITALS: BP 131/77; PULSE 87; RESP 16; TEMP 36.6; O2SAT 96
[2021-12-20 06:07] LABS: Anion Gap 11 (12-20); Blood Urea Nitrogen 25 mg/dL (9-16); Calcium 8.3 mg/dL (8.4-10.2); Carbon Dioxide 24 mmol/L (22-29); Chloride 111 mmol/L (96-108); Creatinine Clr Calc Pharmacy 45.8; Estimated Glomerular Filt Rate 29; Glucose Random 105 mg/dL (60-115); Potassium 3.8 mmol/L (3.3-5.1); Sodium 142 mmol/L (135-145)
[2021-12-20 07:54] VITALS: BP 161/91; PULSE 67; RESP 17; TEMP 36; O2SAT 98
[2021-12-20] MEDS: cloNIDine HCL 0.1 MG TABLET PO ×2 (08:18→13:46)
[2021-12-20] MEDS: Multivitamin TABLET 1 TAB PO (08:19)
[2021-12-20] MEDS: lamoTRIgine 25 MG TABLET PO (08:19)
[2021-12-20] MEDS: amLODIPine Besylate 10 MG TABLET PO (08:19)
[2021-12-20] MEDS: lamoTRIgine 100 MG TABLET PO (08:19)
[2021-12-20] MEDS: Cyanocobalamin (Vitamin B-12) 100 MCG TABLET PO (08:19)
[2021-12-20] MEDS: Acetaminophen 325 MG TABLET 650 MG PO (08:19)
[2021-12-20] MEDS: Gabapentin 100 MG CAPSULE PO ×2 (08:19→13:47)
[2021-12-20] MEDS: Gabapentin 300 MG CAPSULE PO ×2 (08:19→13:47)
[2021-12-20] MEDS: methADONE HCl 20 MG/2 ML ORAL.CONC 110 MG PO (08:21)
--- NOTE | 2021-12-20 08:42 | MHC.CM.PN ---
APOLINAR addressed, copy to patient and copy filed in chart Pt reports she has been living in her car (homeless) and is unable to return home. She would like to go to a rehab program preferably in [place]. She is on Methadone and receives her dosing at [address] She is independent in community, drives. HCP on file/verified. PCP: Jose Rashid. Covid vax's x2 MRNA, She will drive herself home. D/C Plan: Community vs Care team recommendaton
[2021-12-20 11:11] VITALS: BP 164/90; PULSE 82; RESP 17; TEMP 36.2; O2SAT 95
[2021-12-20] MEDS: Enoxaparin Sodium 120 MG/0.8 ML SYRINGE SUBCUT (12:59)
--- NOTE | 2021-12-20 13:01 | HO.PM.IMPN ---
Subjective Subjective Date of Service: 12/20/21 Interval History: seen and examined this AM reports generalized malaise Review of Systems negative except HPI Physical Exam Vital Signs: Vital Signs: Last Vital Signs Temp 97.1 F 12/20/21 11:11 Pulse 82 12/20/21 11:11 Resp 17 12/20/21 11:11 BP 164/90 H 12/20/21 11:11 Pulse Ox 95 12/20/21 11:11 O2 Del Method 12/20/21 11:11 BMI result Body Mass Index 31.0 Const: Other: General - no acute distress, appears comfortable Cardiovascular - regular rate and rhythm, S1-S2 Lungs - normal respiratory effort, clear to auscultation bilaterally, no wheezing Abdomen - soft, nontender, no rebound or guarding Extremities - no edema bilaterally Neuro - awake and alert, no focal deficits Objective Data Active Medications Acetaminophen (Acetaminophen 325 Mg Tablet) 650 mg PO Q6H PRN PRN Reason: Pain, Mild (Pain Scale 1-3) Last Admin: 12/20/21 08:19 Dose: 650 mg Documented By: CAROL Amlodipine Besylate (Amlodipine Besylate 10 Mg Tablet) 10 mg PO DAILY [facility]; Protocol Last Admin: 12/20/21 08:19 Dose: 10 mg Documented By: CAROL Clonidine HCl (Clonidine Hcl 0.1 Mg Tablet) 0.1 mg PO TID [facility]; Protocol Last Admin: 12/20/21 08:18 Dose: 0.1 mg Documented By: CAROL Cyanocobalamin (Cyanocobalamin (Vitamin B-12) 100 Mcg Tablet) 100 mcg PO DAILY [facility] Last Admin: 12/20/21 08:19 Dose: 100 mcg Documented By: CAROL Enoxaparin Sodium (Enoxaparin Sodium 120 Mg/0.8 Ml Syringe) 120 mg SUBCUT Q24H [facility] Last Admin: 12/20/21 12:59 Dose: 120 mg Documented By: CAROL Gabapentin (Gabapentin 100 Mg Capsule) 100 mg PO TID [facility] Last Admin: 12/20/21 08:19 Dose: 100 mg Documented By: CAROL Gabapentin (Gabapentin 300 Mg Capsule) 300 mg PO TID [facility] Last Admin: 12/20/21 08:19 Dose: 300 mg Documented By: CAROL Hydroxyzine HCl (Hydroxyzine Hcl 25 Mg Tablet) 25 mg PO DAILY PRN PRN Reason: Anxiety Lamotrigine (Lamotrigine 25 Mg Tablet) 25 mg PO DAILY [facility] Last Admin: 12/20/21 08:19 Dose: 25 mg Documented By: CAROL Lamotrigine (Lamotrigine 100 Mg Tablet) 100 mg PO DAILY [facility] Last Admin: 12/20/21 08:19 Dose: 100 mg Documented By: CAROL Methadone HCl (Methadone Hcl 20 Mg/2 Ml Oral.Conc) 110 mg PO DAILY [facility] Last Admin: 12/20/21 08:21 Dose: 110 mg Documented By: CAROL Mirtazapine (Mirtazapine 15 Mg Tablet) 45 mg PO BEDTIME [facility] Last Admin: 12/19/21 21:36 Dose: 45 mg Documented By: NIKKI Multivitamins/Vitamin C (Multivitamin Tablet) 1 tab PO DAILY [facility] Last Admin: 12/20/21 08:19 Dose: 1 tab Documented By: CAROL Ondansetron HCl (Ondansetron Hcl 4 Mg/2 Ml Vial) 4 mg IVPUSH Q8H PRN PRN Reason: Nausea and Vomiting Prazosin HCl (Prazosin Hcl 1 Mg Capsule) 2 mg PO BEDTIME [facility]; Protocol Last Admin: 12/19/21 21:36 Dose: 2 mg Documented By: NIKKI Quetiapine Fumarate (Quetiapine Fumarate 300 Mg Tablet) 300 mg PO BEDTIME [facility] Last Admin: 12/19/21 21:36 Dose: 300 mg Documented By: NIKKI Sodium Chloride (0.9 % Sodium Chloride Flush 3 Ml Syringe) 3 ml IVFLUSH QSHIFT [facility] Last Admin: 12/20/21 08:27 Dose: Not Given Documented By: CAROL Non-Admin Reason: IV Running Sumatriptan Succinate (Sumatriptan Succinate 50 Mg Tablet) 50 mg PO DAILY MRX1 PRN PRN Reason: Migraine Headache Trazodone HCl (Trazodone Hcl 50 Mg Tablet) 150 mg PO BEDTIME [facility] Last Admin: 12/19/21 21:36 Dose: 150 mg Documented By: NIKKI Labs CBC & Chem 7: 12/18/21 21:20 12/20/21 05:24 Labs: Laboratory Results - last 24 hr 12/20/21 05:24 Anion Gap 11 L Estim Creat Clear Calc 45.8 Estimated GFR 29 Random Glucose 105 Calcium 8.3 L Microbiology Microbiology Results: Microbiology 12/18/21 23:56 Blood Culture - Preliminary Blood - Venous No growth after 24 hours. 12/18/21 23:56 Blood Culture - Preliminary Blood - Venous No growth after 24 hours. Assessment and Plan (1) Cocaine abuse: Status: Acute (2) Acute renal failure superimposed on chronic kidney disease: Status: Acute Plan This is a 41-year-old female with a history of lupus/lupus anticoagulant who is to be on Lovenox indefinitely due to multiple PEs and DVTs in the past.? She presents to the hospital with chest pain which is now resolved.? She is noted to have acute on chronic kidney injury.? She will be admitted for further workup. 1. GERRI on CKD 3 slowly improving, continue oral / iv hydration check BMP tomorrow 2.Chest pain Possibly cocaine induced and now resolved High sensitivity troponins are flat an EKG without any acute ischemic findings PE negative 3. Cocaine abuse Reports cocaine abuse but denies opiates drug screen pending Complete cessation has been advised to the patient Care / Recovery team consulted -- will look into 4. Opiate dependence continue methadone 5. History of lupus/lupus anticoagulant 5a.? History of prior PEs and DVTs, status post IVC filter placement lovenox 1.5mg/kg daily (has refused transition to coumadin in the past) importance of compliance has been reinforced 6. Hypertension Norvasc 7. Mood Continue her baseline meds denies SI Full Code DVT pptx - will be on treatment dose lovenox Quality Stroke Does the patient have a stroke diagnosis?: No VTE Prior VTE?: Yes VTE Risk Level:: Medical - moderate - high VTE Device Contraindication: N/A - Device Ordered VTE Drug Contraindication: N/A - Med Ordered
--- NOTE | 2021-12-20 13:33 | PM.DS ---
DS: Providers Provider Date of Service: 12/20/21 Date of admission: 12/19/21 11:00 Primary care physician: LEIGHTON Valadez Consults: 12/19/21 11:29 Consult to Care Team Routine Comment: Reason for consultation: polysubstance abuse, interested in rehab programs DS: Diagnosis Discharge Diagnosis (1) Cocaine abuse: Status: Acute (2) Acute renal failure superimposed on chronic kidney disease: Status: Acute DS: Summary Hospital Course Hospital Course: From the admission H&P: 'This is a 41 year old female with a PMH of SLE/lupus anticoagulant, polysubstance abuse (sober for 1 year prior to current relapse), 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 Patient reports sobriety of 1 year, however relapsed 1 week ago at and has been daily injecting cocaine.? She reports noncompliant says with her medications including Lovenox.? In fact, when taking the history she forgets the mention that she has a history of PE/DVT and is supposed to be on Lovenox.? She reports not taking Lovenox for more than 1 week.? She describes her chest pain as left-sided nonradiating, persistent and severity of 10/10.? She describes it as a pressure type sensation as well as sharp.? She denies any such prior pain.? She reports that her chest pain has now completely resolved.? She reports being depressed but denies any suicidality. Upon arrival to the emergency room she was noted to have a serum creatinine over 3, with a baseline ranging from 1.5-2.2.? She was given 2 L of intravenous fluids with improvement in her kidney function but not at baseline.? She will be given more IV fluids with repeat serum chemistries tomorrow.? Furthermore given her noncompliance with Lovenox and pleuritic type chest pain will proceed with a V/Q lower venous Doppler. Patient's only request currently is for her methadone. Hospital Course: The patient was treated with intravenous fluids for her acute kidney injury on chronic kidney disease. Her renal function is heading towards her baseline in is 1.9 on the day of discharge. She is encouraged for oral hydration. She should repeat blood work in 1 weeks time (basic metabolic profile). Additionally, the patient who was supposed to be on Lovenox treatment dose for history of lupus anticoagulant and multiple prior venous thromboembolisms, was initiated on Lovenox 1.5 milligrams/kilogram. She was not sure of her prior dose. Prior hematology consultation from her last admission recommended 1.5 milligrams/kilogram. Her current weight on the day of discharge is 88.4 kg and hence she will require about 130 mg of Lovenox daily. She needs to follow with Hematology and/or her PCP for this. She has been given her lovenox dose on 12/20/21; next dose due tomorrow 12/21/21. Finally, the patient was seen and evaluated by the recovery team. Patient was interested in a drug rehab program which was arranged. Given improvement in her renal function, the patient desires for discharge today as she is very keen on being admitted to the drug rehab program. Time Spent with Patient Time attestation: Total time spent providing and/or coordinating discharge services: Discharge coordination time: Less than 30 minutes Quality: Safe Use of Opioids Does Pt have an Active Cancer Diagnosis on the Problem List?: No Quality: Stroke Does the patient have a stroke diagnosis?: No Physical Exam Vital Signs: Vital Signs: Last Vital Signs Temp 97.1 F 12/20/21 11:11 Pulse 82 12/20/21 11:11 Resp 17 12/20/21 11:11 BP 164/90 H 12/20/21 11:11 Pulse Ox 95 12/20/21 11:11 O2 Del Method 12/20/21 11:11 BMI result Body Mass Index 31.0 DS: Data Data Completed and Pending Completed studies during hospitalization [Text1]: Procedures Detoxification Services for Substance Abuse Treatment (05/09/21) Insertion of Infusion Device into Right Basilic Vein, Percutaneous Approach (02/13/21) Labs on day of discharge: Laboratory Results - last 24 hr 12/20/21 05:24 Sodium 142 Potassium 3.8 Chloride 111 H Carbon Dioxide 24 Anion Gap 11 L BUN 25 H Creatinine 1.90 H Estim Creat Clear Calc 45.8 Estimated GFR 29 Random Glucose 105 Calcium 8.3 L Preliminary micro results at discharge 12/18/21 23:56 Blood Culture - Preliminary Blood - Venous No growth after 24 hours. 12/18/21 23:56 Blood Culture - Preliminary Blood - Venous No growth after 24 hours. Discharge Plan Discharge Patient Disposition: Xfer Other Discharge Diagnosis: GERRI on CKD Cocaine abuse Non-compliance with prescribed medications Referrals: Deborah Casiano MD [Physician] - 2 Weeks (Call for follow up appt for history of DVT/PE, lupus anticoagulant ) Jose Rashid, [employer] ANALYST-BC [Primary Care Provider] - 1 Week Discharge Medications: New enoxaparin 100 mg/mL syringe 100 mg subcut DAILY 30 Days Qty: 30 0RF Rx Instructions: Use in conjunction with enoxaparin 30mg for a total of 130mg daily enoxaparin 30 mg/0.3 mL syringe 30 mg subcut DAILY 30 Days Qty: 9 0RF Rx Instructions: Use in conjunction with enoxaparin 100mg for a total of 130mg daily Continued cyanocobalamin (vitamin B-12) [Vitamin B-12] 100 mcg tablet 100 mcg PO DAILY 30 Days Qty: 30 1RF amlodipine 10 mg tablet 10 mg PO DAILY 30 Days Qty: 30 1RF Protocol: Hold for SBP< HOLD for SBP < : 90 methadone 10 mg/mL Concentrate 110 mg PO DAILY lamotrigine 25 mg Tablet 25 mg PO DAILY 30 Days Qty: 70 0RF sumatriptan succinate 100 mg Tablet 50 mg PO DAILY MRX1 PRN (Reason: Migraine Headache) 30 Days Qty: 10 1RF multivitamin [Daily-Nirmala] Tablet 1 tab PO DAILY 30 Days Qty: 30 1RF quetiapine 300 mg Tablet 300 mg PO BEDTIME 30 Days Qty: 30 1RF lamotrigine [Lamictal] 100 mg tablet 100 mg PO DAILY 30 Days Qty: 30 0RF gabapentin 100 mg Capsule 100 mg PO TID clonidine HCl 0.1 mg tablet 0.1 mg PO TID Protocol: Hold for SBP< HOLD for SBP < : 90 prazosin 1 mg capsule 2 mg PO BEDTIME Protocol: Hold for SBP< HOLD for SBP < : 90 hydroxyzine HCl 25 mg tablet 25 mg PO DAILY PRN (Reason: Anxiety) Caplyta 42 mg capsule 1 cap PO DAILY gabapentin 300 mg capsule 300 mg PO TID trazodone 150 mg tablet 150 mg PO BEDTIME mirtazapine [Remeron] 15 mg tablet 45 mg PO BEDTIME Discharge Orders: Discharge Order (Routine); Ordered 12/20/21 Ordered By: John Chang Diet: Advance to usual diet Activity on Discharge: As tolerated Stand Alone Forms: Patient Portal Discharge page Other Ambulatory Orders: Basic Metabolic Panel (Routine) Timeframe: 20211226 Facility: [facility] - Location: Laboratory Ordered By: John Chang Care Plan Goals: To stay healthy and out of the hospital. Health Concerns: GERRI Cocaine Abuse Non-compliance with prescribed medications Plan of Treatment: To get further therapy at rehab To continue medications, particularly lovenox, as prescribed Drink plenty of water Repeat blood work in 1 week Assessment: see d/c summary
[2021-12-20 13:34] VITALS: BMI 29.6
--- NOTE | 2021-12-20 13:39 | MHC.RECOVRN ---
Addendum entered by Natalie Patrick 12/20/21 13:56: Pt provided with last dose letter. Original Note: T/w received phone call from Valerie, Batch Blender at [facility], who informed t/w that pt is able to return to program however, must arrive by 3PM today due to no intake staff over the weekend. Notified provider, provider determined pt is safe to discharge today. Discussed plan with pt, pt agreeable and would like to return to [facility]. Pt reports all medications and belongings are at the program. Any new prescriptions to be sent to [address] in [place]. Pt reports feeling better today and hopeful due to ability to return to program. Lyft has been scheduled for 1430. Discussed with RN, JEREMY, provider, and Cecy Espino APRN.
--- NOTE | 2021-12-20 14:18 | MHC.CM.PN ---
Pt has been medically cleared for discharge today. Pt discharged to [facility] in [place] with the assistance of Natalie Patrick RN Recovery Support/Care team at [facility]. Natalie has made all the necessary arrangements for a smooth transition including Lyft transportation for pt to get to program for 3 pm intake.
== END 2021-12-20 14:51 | disposition other institution (70) ==
LOC: HO.ED 12-19 01:53 → HO.EDOVER 12-19 11:16 → HO.S3 12-19 18:08
PROVIDERS: Emergency Medicine; Admitting Provider Family Medicine; Emergency Provider Internal Medicine; PCP Nurse Practitioner Family; Visit Provider Family Medicine
DX: I12.9 Hypertensive chronic kidney disease with stage 1 through stage 4 chronic kidney disease, or unspecified chronic kidney disease (principal); N18.30 Chronic kidney disease, stage 3 unspecified; N17.9 Acute kidney failure, unspecified; F14.10 Cocaine abuse, uncomplicated; R07.9 Chest pain, unspecified; M79.10 Myalgia, unspecified site; Z20.822 Contact with and (suspected) exposure to COVID-19; F11.20 Opioid dependence, uncomplicated; D68.61 Antiphospholipid syndrome; M32.9 Systemic lupus erythematosus, unspecified; F33.9 Major depressive disorder, recurrent, unspecified; F41.1 Generalized anxiety disorder; F43.10 Post-traumatic stress disorder, unspecified; F17.210 Nicotine dependence, cigarettes, uncomplicated; Z86.718 Personal history of other venous thrombosis and embolism; Z87.01 Personal history of pneumonia (recurrent); Z86.711 Personal history of pulmonary embolism; Z86.14 Personal history of Methicillin resistant Staphylococcus aureus infection; Z79.899 Other long term (current) drug therapy; Z79.01 Long term (current) use of anticoagulants; Z91.14 Patient's other noncompliance with medication regimen
CPT/HCPCS: 36415; 71045; 78580; 80048; 80053; 83605; 84484; 85025; 87040; 87635; 93005; 93970; 96360; 96361; 96365; 96366; 96372; 99218; 99285; A9540; J1650; J2543

== ENCOUNTER 2021-12-29 17:34 | Emergency (ER) | payer OTHER, SELFPAY ==
--- NOTE | ~2021-12-29 | XR_ITS ---
EXAMINATION: XR CHEST CLINICAL INFORMATION: Chest pain. COMPARISON: December 18, 2021. TECHNIQUE: Portable AP view of the chest was obtained. XR/XR chest 1V FINDINGS/IMPRESSION: There has been no significant radiographic change compared with December 18, 2021. There is no acute radiographic finding. No focal infiltrate, effusion, pneumothorax is seen. There may be minimal bibasilar fibrotic change and/atelectasis. The heart appears normal in size. Surgical clips project over the left upper quadrant. The patient is status post IVC filter placement.
--- NOTE | 2021-12-29 17:36 | ECG_ITS ---
Test Reason : CHEST PAIN Blood Pressure : / mmHG Vent. Rate : 075 BPM Atrial Rate : 075 BPM P-R Int : 184 ms QRS Dur : 082 ms QT Int : 400 ms P-R-T Axes : 058 003 042 degrees QTc Int : 446 ms Normal sinus rhythm Normal ECG When compared with ECG of 18-DEC-2021 20:59, No significant change was found Referred By: Generic ED Physician Electronically Signed By:RAISA CONDON MD
[2021-12-29 17:45] VITALS: BP 202/131; PULSE 77; RESP 20; TEMP 36.9; O2SAT 96; BMI 30.4
--- NOTE | 2021-12-29 18:01 | ED_ITS ---
HPI - Chest Pain General Chief Complaint: Chest Pain Stated Complaint: chest pains Time Seen by Provider: 12/29/21 18:01 Source: patient Mode of arrival: ambulatory Limitations: no limitations History of Present Illness HPI narrative: Patient IV cocaine user last use was last night comes here for chest pain midsternum and left side since a.m. today no chest pain last night no shortness of breath no cough no diaphoresis no nausea no vomiting patient never had chest pain in the past. Related Data Home Medications Medication Instructions Recorded Confirmed methadone 10 mg/mL oral concentrate 110 mg PO DAILY 06/18/21 12/19/21 gabapentin 300 mg capsule 300 mg PO TID 09/19/21 12/19/21 mirtazapine 15 mg tablet (Remeron) 45 mg PO BEDTIME 09/19/21 12/19/21 trazodone 150 mg tablet 150 mg PO BEDTIME 09/19/21 12/19/21 clonidine HCl 0.1 mg tablet 0.1 mg PO TID 10/16/21 12/19/21 gabapentin 100 mg capsule 100 mg PO TID 10/16/21 12/19/21 hydroxyzine HCl 25 mg tablet 25 mg PO DAILY PRN Anxiety 10/16/21 12/19/21 prazosin 1 mg capsule 2 mg PO BEDTIME 10/16/21 12/19/21 lumateperone 42 mg capsule 1 cap PO DAILY 12/19/21 12/19/21 (Caplyta) Previous Rx's Medication Instructions Recorded lamotrigine 100 mg tablet 100 mg PO DAILY 30 days #30 tabs 07/01/21 (Lamictal) lamotrigine 25 mg tablet 25 mg PO DAILY 30 days #70 tabs 07/01/21 multivitamin (Daily-Nirmala tablet) 1 tab PO DAILY 30 days #30 tabs 07/01/21 quetiapine 300 mg tablet 300 mg PO BEDTIME 30 days #30 tabs 07/01/21 sumatriptan succinate 100 mg tablet 50 mg PO DAILY MRX1 PRN Migraine 07/01/21 Headache 30 days #10 tabs cyanocobalamin (vitamin B-12) 100 100 mcg PO DAILY 30 days #30 tabs 10/01/21 mcg tablet (Vitamin B-12) amlodipine 10 mg tablet 10 mg PO DAILY 30 days #30 tabs 12/04/21 enoxaparin 100 mg/mL subcutaneous 100 mg subcut DAILY 30 days #30 mL 12/20/21 syringe enoxaparin 30 mg/0.3 mL 30 mg (0.3 mL) subcut DAILY 30 12/20/21 subcutaneous syringe days #9 mL Allergies Allergy/AdvReac Type Severity Reaction Status Date / Time bee pollen [BEE STINGS] Allergy Severe Anaphylaxis Verified 11/25/21 17:26 codeine [CODEINE] Allergy Severe ANAPHYLAXIS Verified 11/25/21 17:26 Iodinated Contrast Media Allergy Severe DIFFICULTY Verified 11/25/21 17:26 [IV DYE, IODINE CONTAINING BREATHING CONTRAST ] nut - unspecified [nut] Allergy Intermediate Rash Verified 11/25/21 17:26 shellfish derived Allergy Intermediate Rash Verified 11/25/21 17:26 Sulfa (Sulfonamide Allergy Unknown ANAPHYLAXIS Verified 11/25/21 17:26 Antibiotics) [SULFA (SULFONAMIDE ANTIBIOTICS)] fluoxetine [From Prozac] AdvReac Severe Migraine Verified 11/25/21 17:26 Review of Systems Review of Systems: Yes all other systems are reviewed and are negative PMFSH Past Medical History Medical History Acute renal failure superimposed on chronic kidney disease Antiphospholipid antibody syndrome Bipolar disorder Candidemia Cellulitis CKD (chronic kidney disease) Cocaine abuse DVT (deep venous thrombosis) Jay Em filter in place Lupus Opiate abuse, continuous Opioid use disorder, severe, dependence Pneumonia PTSD (post-traumatic stress disorder) Pulmonary emboli Seizures Substance abuse Surgical History History of appendectomy Hx of splenectomy Social History Social History Household Members: None Housing: Other Housing Other:: substance abuse program Do you presently have visiting nurse or other home services: No Alcohol intake: never Patient Tobacco Use Status: Current everyday Tobacco user Tobacco use type: Cigarette Cigarette Packs Per Day: 0 Cigarettes Per Day: 2 Years Smoked: 18 e-Cigarette/Vaping Use: Never Used Second Hand Smoke Exposure: Yes Substance Use Type: Crack/Cocaine and Heroin Advance Directives: Yes Advance Directives on File: Yes Advance Directives Date on File: 02/14/21 service: No Current occupational status: employed and student Sexual orientation: Did not discuss Cognitive needs: No Hearing needs: No Vision needs: No Physical Exam Vital Signs: Vital Signs: Last Vital Signs Temp 98.2 F 12/29/21 20:00 Pulse 54 12/29/21 20:00 Resp 16 12/29/21 20:00 BP 177/102 H 12/29/21 20:00 Pulse Ox 98 12/29/21 20:00 O2 Del Method 12/29/21 20:00 BMI result Body Mass Index 30.4 Appearance: Alert. Oriented X3. No acute distress. Eyes: PERRLA, No Nystagmus ENT: Pharynx normal. Oral Mucosa moist Neck: Normal inspection. Neck supple. CVS: Normal heart rate and rhythm. Pulses normal. Respiratory: No respiratory distress. Equal air entry bilateral, no wheezing/rales/rhonchi Abdomen: Soft and nontender. Bowel sounds are present, no mass palpable, no CVA tenderness Skin: Skin warm and dry. Normal skin color. Normal skin turgor. Extremities: No lower extremity edema. No calf tenderness IVDA track parson Neuro: Oriented X 3. No motor deficit. MDM - Chest Pain MDM Narrative Medical decision making narrative: Patient IV cocaine user name with atypical chest pain for more than 12 hours duration no significant EKG changes no significant increase in troponin disc harge patient home advised to follow with PCP and stop using cocaine Medical Records Data Attestation: I reviewed the patient's medical records. Lab Data Attestation: I reviewed the patient's lab results. Result diagrams: 12/29/21 19:39 12/29/21 Unknown Labs: Lab Results 12/29/21 12/29/21 12/29/21 Range/Units 19:39 19:39 Unknown WBC 12.6 H (4.8-10.8) X10*3/uL RBC 3.72 L (4.20-5.50) X10*6/uL Hgb 11.4 L (12.0-16.0) g/dl Hct 35.2 L (37.0-47.0) % MCV 94.6 (80.0-98.0) fL MCH 30.6 (27.0-33.0) pg MCHC 32.4 (31.0-35.0) g/dl RDW 13.7 (11.0-16.0) % Plt Count 334 (160-400) X10*3/uL MPV 10.8 (9.4-12.3) fL Immature Gran % (Auto) 0.3 (0.0-0.4) % Neut % (Auto) 57.9 (45-73) % Lymph % (Auto) 26.7 (20-40) % [place] % (Auto) 13.5 H (2-11) % Eos % (Auto) 1.3 (0-4) % Baso % (Auto) 0.3 (0-2) % Lymph # (Auto) 3.4 (1.2-4.9) X10*3/uL [place] # (Auto) 1.7 H (0.1-1.2) X10*3/uL Eos # (Auto) 0.2 (0.0-0.4) X10*3/uL Baso # (Auto) 0.0 (0.0-0.2) X10*3/uL Abs Immat Gran (auto) 0.04 H (0.00-0.03) X10*3/uL Absolute Neuts (auto) 7.3 (2.0-8.3) x10*3/uL Absolute Nucleated RBC 0.000 (0.0-0.012) X10*3/uL Nucleated RBC % (auto) 0.0 (0.0-0.2) /100WBC Smear Tech's Comments VERIFIED Sodium Cancelled Potassium Cancelled Chloride Cancelled Carbon Dioxide Cancelled Anion Gap Cancelled BUN Cancelled Creatinine Cancelled Estim Creat Clear Calc Cancelled Estimated GFR Cancelled Random Glucose Cancelled Calcium Cancelled Troponin I High Sens 8.5 (<3.5-17.0) ng/L ECG Data ECG #1: Attestation: I personally reviewed and interpreted this ECG as follows: Interpretation: Normal sinus rhythm heart rate 75 beats per minute normal interval normal axis no acute ST changes impression normal EKG Discharge Plan Discharge Clinical Impression: Cocaine abuse, Chest pain Patient Disposition: Home, Self-Care Instructions: Chest Pain (ED), Cocaine Abuse (ED) Additional Instructions: Stop using cocaine Take your medication as prescribed daily by your PCP Prescriptions: No Action cyanocobalamin (vitamin B-12) [Vitamin B-12] 100 mcg tablet 100 mcg PO DAILY 30 Days Qty: 30 1RF amlodipine 10 mg tablet 10 mg PO DAILY 30 Days Qty: 30 1RF Protocol: Hold for SBP< HOLD for SBP < : 90 methadone 10 mg/mL Concentrate 110 mg PO DAILY lamotrigine 25 mg Tablet 25 mg PO DAILY 30 Days Qty: 70 0RF sumatriptan succinate 100 mg Tablet 50 mg PO DAILY MRX1 PRN (Reason: Migraine Headache) 30 Days Qty: 10 1RF multivitamin [Daily-Nirmala] Tablet 1 tab PO DAILY 30 Days Qty: 30 1RF quetiapine 300 mg Tablet 300 mg PO BEDTIME 30 Days Qty: 30 1RF lamotrigine [Lamictal] 100 mg tablet 100 mg PO DAILY 30 Days Qty: 30 0RF gabapentin 100 mg Capsule 100 mg PO TID clonidine HCl 0.1 mg tablet 0.1 mg PO TID Protocol: Hold for SBP< HOLD for SBP < : 90 prazosin 1 mg capsule 2 mg PO BEDTIME Protocol: Hold for SBP< HOLD for SBP < : 90 hydroxyzine HCl 25 mg tablet 25 mg PO DAILY PRN (Reason: Anxiety) Caplyta 42 mg capsule 1 cap PO DAILY enoxaparin 100 mg/mL syringe 100 mg subcut DAILY 30 Days Qty: 30 0RF Rx Instructions: Use in conjunction with enoxaparin 30mg for a total of 130mg daily enoxaparin 30 mg/0.3 mL syringe 30 mg subcut DAILY 30 Days Qty: 9 0RF Rx Instructions: Use in conjunction with enoxaparin 100mg for a total of 130mg daily gabapentin 300 mg capsule 300 mg PO TID trazodone 150 mg tablet 150 mg PO BEDTIME mirtazapine [Remeron] 15 mg tablet 45 mg PO BEDTIME Interventions: ED Discharge Assessment Last Done: 12/29/21 20:59 Discharge Date/Time: 12/29/21 21:00
[2021-12-29 19:01] VITALS: BP 185/103; PULSE 54; RESP 16; TEMP 36.9; O2SAT 98
--- NOTE | 2021-12-29 19:02 | PC.NURSE ---
ERLINDA SWEENEY IS AWARE OF PATIENT HIGH BP ,AND DIFFICULT STICK .
[2021-12-29 19:44] LABS: Basophils Percent Auto 0.3 % (0-2); Eosinophils Absolute Auto 0.2 X10*3/uL (0.0-0.4); Eosinophils Percent Auto 1.3 % (0-4); Hematocrit 35.2 % (37.0-47.0); Hemoglobin 11.4 g/dl (12.0-16.0); Imm Gran Abs Auto 0.04 X10*3/uL (0.00-0.03); Imm Gran Pct Auto 0.3 % (0.0-0.4); Lymphocytes Absolute Auto 3.4 X10*3/uL (1.2-4.9); Lymphocytes Percent Auto 26.7 % (20-40); MANUAL DIFF FLAG SCAN; Mean Corpuscular HGB Conc 32.4 g/dl (31.0-35.0); Mean Corpuscular Hemoglobin 30.6 pg (27.0-33.0); Mean Corpuscular Volume 94.6 fL (80.0-98.0); Mean Platelet Volume 10.8 fL (9.4-12.3); Monocytes Absolute Auto 1.7 X10*3/uL (0.1-1.2); Monocytes Percent Auto 13.5 % (2-11); Neutrophils Absolute Auto 7.3 x10*3/uL (2.0-8.3); Neutrophils Percent Auto 57.9 % (45-73); Platelet Count 334 X10*3/uL (160-400); Red Blood Count 3.72 X10*6/uL (4.20-5.50); Red Cell Distribution Width 13.7 % (11.0-16.0); SCAN SMEAR FLAG 1; White Blood Count 12.6 X10*3/uL (4.8-10.8)
[2021-12-29 20:00] VITALS: BP 177/102; PULSE 54; RESP 16; TEMP 36.8; O2SAT 98
[2021-12-29 20:03] LABS: Troponin-I High Sensitivity 8.5 ng/L (<3.5-17.0)
[2021-12-29 20:14] LABS: SLIDE REVIEW VERIFIED
--- NOTE | 2021-12-29 20:53 | PC.NURSE ---
provider notified, pt needs u/s blood draw/IV. labs drawn by provider.
[2021-12-29] MEDS: cloNIDine HCL 0.1 MG TABLET PO (20:54)
[2021-12-29] MEDS: Ibuprofen 600 MG TABLET PO (20:54)
--- NOTE | 2021-12-29 20:54 | PC.NURSE ---
medicated per provider order.
== END 2021-12-29 21:00 | disposition home or self-care (01) ==
PROVIDERS: Emergency Provider Internal Medicine; PCP Nurse Practitioner Family
DX: F14.10 Cocaine abuse, uncomplicated (principal); R07.89 Other chest pain; F17.210 Nicotine dependence, cigarettes, uncomplicated; F11.10 Opioid abuse, uncomplicated; Z71.6 Tobacco abuse counseling; Z79.899 Other long term (current) drug therapy
CPT/HCPCS: 36415; 71045; 84484; 85025; 93005; 99284

== ENCOUNTER 2021-12-30 18:35 | Inpatient (IN) | payer OTHER, SELFPAY ==
[2021-12-30 19:45] VITALS: BP 191/91; PULSE 59; RESP 16; TEMP 36.9; O2SAT 96; BMI 28.8
--- NOTE | 2021-12-30 20:41 | ED_ITS ---
HPI - Psych General Chief Complaint: Psychiatric Symptoms Stated Complaint: Crisis Time Seen by Provider: 12/31/21 06:18 Source: patient Mode of arrival: ambulatory Limitations: no limitations History of Present Illness HPI Narrative: 41-year-old female presents for psychiatric evaluation for suicidal ideation, relapsing, missing her methadone dose, and concern for infection at the right external jugular after injecting cocaine. MD complaint: suicidal ideation, feels depressed and substance abuse Onset (ago): year(s) Duration: constant History of same: Yes Relieving factors: none Exacerbating factors: drug use Context: recent drug abuse Associated psychiatric symptoms: depression and suicidal ideation Associated symptoms: denies other symptoms Treatments prior to arrival: none If self harm: admits thoughts of self harm and has plan Related Data Home Medications Medication Instructions Recorded Confirmed methadone 10 mg/mL oral concentrate 110 mg PO DAILY 06/18/21 12/19/21 gabapentin 300 mg capsule 300 mg PO TID 09/19/21 12/31/21 mirtazapine 15 mg tablet (Remeron) 45 mg PO BEDTIME 09/19/21 12/31/21 trazodone 150 mg tablet 150 mg PO BEDTIME 09/19/21 12/31/21 clonidine HCl 0.1 mg tablet 0.1 mg PO TID 10/16/21 12/31/21 gabapentin 100 mg capsule 100 mg PO TID 10/16/21 12/31/21 hydroxyzine HCl 25 mg tablet 25 mg PO DAILY PRN Anxiety 10/16/21 12/31/21 prazosin 1 mg capsule 2 mg PO BEDTIME 10/16/21 12/31/21 lumateperone 42 mg capsule 1 cap PO DAILY 12/19/21 12/31/21 (Caplyta) Previous Rx's Medication Instructions Recorded lamotrigine 100 mg tablet 100 mg PO DAILY 30 days #30 tabs 07/01/21 (Lamictal) lamotrigine 25 mg tablet 25 mg PO DAILY 30 days #70 tabs 07/01/21 quetiapine 300 mg tablet 300 mg PO BEDTIME 30 days #30 tabs 07/01/21 sumatriptan succinate 100 mg tablet 50 mg PO DAILY MRX1 PRN Migraine 07/01/21 Headache 30 days #10 tabs cyanocobalamin (vitamin B-12) 100 100 mcg PO DAILY 30 days #30 tabs 05/03/22 mcg tablet (Vitamin B-12) amlodipine 10 mg tablet 10 mg PO DAILY 30 days #30 tabs 12/04/21 enoxaparin 100 mg/mL subcutaneous 100 mg subcut DAILY 30 days #30 mL 12/20/21 syringe enoxaparin 30 mg/0.3 mL 30 mg (0.3 mL) subcut DAILY 30 12/20/21 subcutaneous syringe days #9 mL Allergies Allergy/AdvReac Type Severity Reaction Status Date / Time bee pollen [BEE STINGS] Allergy Severe Anaphylaxis Verified 12/30/21 19:45 codeine [CODEINE] Allergy Severe ANAPHYLAXIS Verified 12/30/21 19:45 Iodinated Contrast Media Allergy Severe DIFFICULTY Verified 12/30/21 19:45 [IV DYE, IODINE CONTAINING BREATHING CONTRAST ] nut - unspecified [nut] Allergy Intermediate Rash Verified 12/30/21 19:45 shellfish derived Allergy Intermediate Rash Verified 12/30/21 19:45 Sulfa (Sulfonamide Allergy Unknown ANAPHYLAXIS Verified 12/30/21 19:45 Antibiotics) [SULFA (SULFONAMIDE ANTIBIOTICS)] fluoxetine [From Prozac] AdvReac Severe Migraine Verified 12/30/21 19:45 Review of Systems Review of Systems: Constitutional: No Fever, No Chills ENT/Mouth: No Ear Pain, No Hoarseness, No sore throat Eyes: No Eye Pain, No Swelling, No Redness, No Foreign Body Cardiovascular: No Chest Pain, No SOB Respiratory: No Cough, No Dyspnea Gastrointestinal: No Nausea, No Vomiting, No Diarrhea, No abdominal Pain Genitourinary: No Dysuria, No Hematuria Musculoskeletal: No joint pain, No Myalgias, No Joint Swelling Skin: Multiple track parson and bruising to extremities and neck, No Skin lacerations, No rash Neuro: No Weakness, No Numbness, No Paresthesias, No Loss of Consciousness, No Dizziness, No Headache Psych: Positive suicidal ideation, positive polysubstance abuse, No Anxiety/Panic, No Depression Heme/Lymph: no easy bruising, no Lymphadenopathy Endocrine: No Polyuria, No Polydipsia Yes all other systems are reviewed and are negative [facility] Past Medical History Attestation statement: The following information was validated with the patient. Source: old records reviewed Medical History Acute renal failure superimposed on chronic kidney disease Antiphospholipid antibody syndrome Bipolar disorder Candidemia Cellulitis CKD (chronic kidney disease) Cocaine abuse DVT (deep venous thrombosis) Sander filter in place Lupus Opiate abuse, continuous Opioid use disorder, severe, dependence Pneumonia PTSD (post-traumatic stress disorder) Pulmonary emboli Seizures Substance abuse Surgical History History of appendectomy Hx of splenectomy Social History Social History Household Members: None Housing: Other Housing Other:: substance abuse program Do you presently have visiting nurse or other home services: No Alcohol intake: never Patient Tobacco Use Status: Current someday Tobacco user Tobacco use type: Cigarette Cigarette Packs Per Day: 0 Cigarettes Per Day: 2 Years Smoked: 18 e-Cigarette/Vaping Use: Never Used Second Hand Smoke Exposure: Yes Use of substances other than those prescribed or required for medical reasons: Yes Substance Use Type: Crack/Cocaine Substance Use Frequency: Daily Advance Directives: Yes Advance Directives on File: Yes Advance Directives Date on File: 02/14/21 Patient : No service: No Current occupational status: employed and student Sexual orientation: Did not discuss Cognitive needs: No Hearing needs: No Vision needs: No Physical Exam Vital Signs: Vital Signs: Last Vital Signs Temp 97.6 F 12/31/21 05:54 Pulse 60 12/31/21 05:54 Resp 18 12/31/21 05:54 BP 161/80 H 12/31/21 05:54 Pulse Ox 94 12/31/21 05:54 O2 Del Method 12/31/21 05:54 BMI result Body Mass Index 28.8 Appearance: Alert. Oriented X3. Moderate emotional distress. Eyes: Pupils equal, round and reactive to light. Sclera nonicteric. ENT: Pharynx normal. Neck: Normal inspection. Neck supple. Multiple track parson on bilateral jugulars with bruising. CVS: Normal heart rate and rhythm. Pulses normal. Respiratory: No respiratory distress. Breath sounds normal. Abdomen: Soft and nontender. Skin: Multiple track parson to extremities and neck, bruising in various stages to all extremities, Skin warm and dry. Normal skin color. Normal skin turgor. Extremities: No lower extremity edema. Moves all extremities against resistance. Neuro: No motor deficit. No sensory deficit. Cranial nerves 2-12 intact. Course Course Course Narrative: 41-year-old female presents for evaluation for suicidal ideation polysubstance abuse. Did present last night with chest pain and was discharged with negative workup. Will order labs, and crisis consult. 22:22 BUN 24, creatinine 1.73 consistent with prior values. Potassium is 5.5, will give Lokelma and encourage p.o. fluids. 02:00 BH and consult complete. Patient is inpatient bed search. Physician observation. MDM - Psych Differential Diagnosis Differential diagnosis: Likely acute psychosis, suicidal ideation, depression, acute anxiety and substance abuse Medical Records Attestation: I reviewed the patient's medical records. Lab Data Attestation: I reviewed the patient's lab results. Result diagrams: 12/31/21 02:04 12/30/21 21:29 Labs: Lab Results 12/30/21 12/30/21 12/30/21 Range/Units 21:29 21:30 21:33 WBC (4.8-10.8) X10*3/uL RBC (4.20-5.50) X10*6/uL Hgb (12.0-16.0) g/dl Hct (37.0-47.0) % MCV (80.0-98.0) fL MCH (27.0-33.0) pg MCHC (31.0-35.0) g/dl RDW (11.0-16.0) % Plt Count (160-400) X10*3/uL MPV (9.4-12.3) fL Immature Gran % (Auto) (0.0-0.4) % Neut % (Auto) (45-73) % Lymph % (Auto) (20-40) % Rhea % (Auto) (2-11) % Eos % (Auto) (0-4) % Baso % (Auto) (0-2) % Lymph # (Auto) (1.2-4.9) X10*3/uL Rhea # (Auto) (0.1-1.2) X10*3/uL Eos # (Auto) (0.0-0.4) X10*3/uL Baso # (Auto) (0.0-0.2) X10*3/uL Abs Immat Gran (auto) (0.00-0.03) X10*3/uL Absolute Neuts (auto) (2.0-8.3) x10*3/uL Absolute Nucleated RBC (0.0-0.012) X10*3/uL Nucleated RBC % (auto) (0.0-0.2) /100WBC Sodium 141 (135-145) mmol/L Potassium 5.5 H D (3.3-5.1) mmol/L Chloride 107 (96-108) mmol/L Carbon Dioxide 21 L (22-29) mmol/L Anion Gap 19 (12-20) BUN 24 H (9-16) mg/dL Creatinine 1.73 H (0.5-1.4) mg/dL Estim Creat Clear Calc 48.6 Estimated GFR 32 Random Glucose 89 (60-115) mg/dL Calcium 9.4 D (8.4-10.2) mg/dL Total Bilirubin 0.5 (0.0-1.0) mg/dL AST 34 H (5-31) U/L ALT 21 (0-31) U/L Alkaline Phosphatase 102 (39-117) U/L Total Protein 7.4 (6.5-8.0) g/dL Albumin 3.8 (3.5-5.0) g/dL Urine Opiates Screen POSITIVE H (Not Detect) Urine Fentanyl Screen POSITIVE H (Not Detect) Ur Barbiturates Screen Not Detected (Not Detect) Ur Phencyclidine Scrn Not Detected (Not Detect) Ur Amphetamines Screen Not Detected (Not Detect) U Benzodiazepines Scrn Not Detected (Not Detect) Urine Cocaine Screen POSITIVE H (Not Detect) U Marijuana (THC) Screen Not Detected (Not Detect) COVID-19 ([facility]) Negative (Negative) COVID-19 Clin Com See Note 12/31/21 Range/Units 02:04 WBC 9.1 (4.8-10.8) X10*3/uL RBC 3.68 L (4.20-5.50) X10*6/uL Hgb 11.4 L (12.0-16.0) g/dl Hct 35.0 L (37.0-47.0) % MCV 95.1 (80.0-98.0) fL MCH 31.0 (27.0-33.0) pg MCHC 32.6 (31.0-35.0) g/dl RDW 13.7 (11.0-16.0) % Plt Count 329 (160-400) X10*3/uL MPV 10.9 (9.4-12.3) fL Immature Gran % (Auto) 0.3 (0.0-0.4) % Neut % (Auto) 52.2 (45-73) % Lymph % (Auto) 30.1 (20-40) % Rhea % (Auto) 14.6 H (2-11) % Eos % (Auto) 2.4 (0-4) % Baso % (Auto) 0.4 (0-2) % Lymph # (Auto) 2.7 (1.2-4.9) X10*3/uL Rhea # (Auto) 1.3 H (0.1-1.2) X10*3/uL Eos # (Auto) 0.2 (0.0-0.4) X10*3/uL Baso # (Auto) 0.0 (0.0-0.2) X10*3/uL Abs Immat Gran (auto) 0.03 (0.00-0.03) X10*3/uL Absolute Neuts (auto) 4.7 (2.0-8.3) x10*3/uL Absolute Nucleated RBC 0.000 (0.0-0.012) X10*3/uL Nucleated RBC % (auto) 0.0 (0.0-0.2) /100WBC Sodium (135-145) mmol/L Potassium (3.3-5.1) mmol/L Chloride (96-108) mmol/L Carbon Dioxide (22-29) mmol/L Anion Gap (12-20) BUN (9-16) mg/dL Creatinine (0.5-1.4) mg/dL Estim Creat Clear Calc Estimated GFR Random Glucose (60-115) mg/dL Calcium (8.4-10.2) mg/dL Total Bilirubin (0.0-1.0) mg/dL AST (5-31) U/L ALT (0-31) U/L Alkaline Phosphatase (39-117) U/L Total Protein (6.5-8.0) g/dL Albumin (3.5-5.0) g/dL Urine Opiates Screen (Not Detect) Urine Fentanyl Screen (Not Detect) Ur Barbiturates Screen (Not Detect) Ur Phencyclidine Scrn (Not Detect) Ur Amphetamines Screen (Not Detect) U Benzodiazepines Scrn (Not Detect) Urine Cocaine Screen (Not Detect) U Marijuana (THC) Screen (Not Detect) COVID-19 ([facility]) (Negative) COVID-19 Clin Com ECG Data Attestation: I personally reviewed and interpreted this ECG as follows: ECG interpretation date: 12/30/21 ECG interpretation time: 22:45 Prior ECG tracings: available for review Interpretation: Vent. rate 68 BPM WA interval 184 ms QRS duration 82 ms QT/QTc 392/416 ms P-R-T axes 68 36 57 Normal sinus rhythm with sinus arrhythmia Normal ECG When compared with ECG of 29-DEC-2021 17:40, No significant change was found Discharge Plan Discharge Clinical Impression: Suicidal ideation, Drug-induced psychotic disorder, Cocaine use disorder, Opioid use disorder, severe, dependence Patient Disposition: Still a Patient Prescriptions: No Action cyanocobalamin (vitamin B-12) [Vitamin B-12] 100 mcg tablet 100 mcg PO DAILY 30 Days Qty: 30 1RF amlodipine 10 mg tablet 10 mg PO DAILY 30 Days Qty: 30 1RF Protocol: Hold for SBP< HOLD for SBP < : 90 methadone 10 mg/mL Concentrate 110 mg PO DAILY lamotrigine 25 mg Tablet 25 mg PO DAILY 30 Days Qty: 70 0RF sumatriptan succinate 100 mg Tablet 50 mg PO DAILY MRX1 PRN (Reason: Migraine Headache) 30 Days Qty: 10 1RF quetiapine 300 mg Tablet 300 mg PO BEDTIME 30 Days Qty: 30 1RF lamotrigine [Lamictal] 100 mg tablet 100 mg PO DAILY 30 Days Qty: 30 0RF gabapentin 100 mg Capsule 100 mg PO TID clonidine HCl 0.1 mg tablet 0.1 mg PO TID Protocol: Hold for SBP< HOLD for SBP < : 90 prazosin 1 mg capsule 2 mg PO BEDTIME Protocol: Hold for SBP< HOLD for SBP < : 90 hydroxyzine HCl 25 mg tablet 25 mg PO DAILY PRN (Reason: Anxiety) Caplyta 42 mg capsule 1 cap PO DAILY enoxaparin 100 mg/mL syringe 100 mg subcut DAILY 30 Days Qty: 30 0RF Rx Instructions: Use in conjunction with enoxaparin 30mg for a total of 130mg daily enoxaparin 30 mg/0.3 mL syringe 30 mg subcut DAILY 30 Days Qty: 9 0RF Rx Instructions: Use in conjunction with enoxaparin 100mg for a total of 130mg daily gabapentin 300 mg capsule 300 mg PO TID trazodone 150 mg tablet 150 mg PO BEDTIME mirtazapine [Remeron] 15 mg tablet 45 mg PO BEDTIME
--- NOTE | 2021-12-30 21:04 | MHC.CARE ---
[employer] smart sheet submitted
[2021-12-30 21:41] VITALS: BP 191/94; PULSE 62; RESP 18; TEMP 36.6; O2SAT 96
[2021-12-30 22:02] LABS: COVID-19 Test Negative (Negative)
[2021-12-30 22:09] LABS: Amphetamine Screen Urine Not Detected (Not Detect); Barbiturates, Urine Not Detected (Not Detect); Benzodiazepines Screen Urine Not Detected (Not Detect); Cannabinoid Screen Urine Not Detected (Not Detect); Cocaine Screen Urine POSITIVE (Not Detect); Fentanyl, urine POSITIVE (Not Detect); Opiate Screen Urine POSITIVE (Not Detect); Phencyclidine Screen Urine Not Detected (Not Detect)
[2021-12-30 22:12] LABS: Alanine Aminotransferase 21 U/L (0-31); Albumin Level 3.8 g/dL (3.5-5.0); Alkaline Phosphatase 102 U/L (39-117); Anion Gap 19 (12-20); Aspartate Amino Transferase 34 U/L (5-31); Bilirubin Total 0.5 mg/dL (0.0-1.0); Blood Urea Nitrogen 24 mg/dL (9-16); Calcium 9.4 mg/dL (8.4-10.2); Carbon Dioxide 21 mmol/L (22-29); Chloride 107 mmol/L (96-108); Creatinine Clr Calc Pharmacy 48.6; Estimated Glomerular Filt Rate 32; Glucose Random 89 mg/dL (60-115); Potassium 5.5 mmol/L (3.3-5.1); Sodium 141 mmol/L (135-145); Total Protein 7.4 g/dL (6.5-8.0)
--- NOTE | 2021-12-30 22:38 | ECG_ITS ---
Test Reason : High potassium Blood Pressure : / mmHG Vent. Rate : 068 BPM Atrial Rate : 068 BPM P-R Int : 184 ms QRS Dur : 082 ms QT Int : 392 ms P-R-T Axes : 068 036 057 degrees QTc Int : 416 ms Normal sinus rhythm with sinus arrhythmia Normal ECG When compared with ECG of 29-DEC-2021 17:40, No significant change was found Referred By: Dyan Villalta Electronically Signed By:RAISA CONDON MD
[2021-12-30] MEDS: Sodium Zirconium Cyclosilicate 10 GM POWD.PACK PO (22:46)
--- NOTE | 2021-12-30 23:33 | PC.NURSE ---
prashanth called and will be seeing the pt shortly.
--- NOTE | 2021-12-31 | ECG_ITS ---
Test Reason : rule out prolonged qt Blood Pressure : / mmHG Vent. Rate : 061 BPM Atrial Rate : 061 BPM P-R Int : 182 ms QRS Dur : 082 ms QT Int : 448 ms P-R-T Axes : 051 016 038 degrees QTc Int : 450 ms Normal sinus rhythm Normal ECG When compared with ECG of 30-DEC-2021 22:45, No significant change was found Referred By: Lillian Maxwell Electronically Signed By:RAISA CONDON MD
[2021-12-31 02:09] LABS: Basophils Percent Auto 0.4 % (0-2); Eosinophils Absolute Auto 0.2 X10*3/uL (0.0-0.4); Eosinophils Percent Auto 2.4 % (0-4); Hemoglobin 11.4 g/dl (12.0-16.0); Imm Gran Abs Auto 0.03 X10*3/uL (0.00-0.03); Imm Gran Pct Auto 0.3 % (0.0-0.4); Lymphocytes Absolute Auto 2.7 X10*3/uL (1.2-4.9); Lymphocytes Percent Auto 30.1 % (20-40); Mean Corpuscular HGB Conc 32.6 g/dl (31.0-35.0); Mean Corpuscular Volume 95.1 fL (80.0-98.0); Mean Platelet Volume 10.9 fL (9.4-12.3); Monocytes Absolute Auto 1.3 X10*3/uL (0.1-1.2); Monocytes Percent Auto 14.6 % (2-11); Neutrophils Absolute Auto 4.7 x10*3/uL (2.0-8.3); Neutrophils Percent Auto 52.2 % (45-73); Platelet Count 329 X10*3/uL (160-400); Red Blood Count 3.68 X10*6/uL (4.20-5.50); Red Cell Distribution Width 13.7 % (11.0-16.0); White Blood Count 9.1 X10*3/uL (4.8-10.8)
[2021-12-31 02:11] LABS: MANUAL DIFF FLAG NO
[2021-12-31 05:54] VITALS: BP 161/80; PULSE 60; RESP 18; TEMP 36.4; O2SAT 94
[2021-12-31] MEDS: LORazepam 1 MG TABLET 2 MG PO (06:23)
--- NOTE | 2021-12-31 07:14 | PHA.MEDREC ---
Pharmacy Consult ? Medication Reconciliation Pharmacy has completed the medication reconciliation.
--- NOTE | 2021-12-31 07:27 | PC.NURSE ---
patient appears to remain asleep at present respirations are even and unlabored patient appears in no distress
[2021-12-31 07:50] VITALS: BP 172/94; PULSE 75; RESP 18; TEMP 37.1; O2SAT 97
[2021-12-31 09:13] LABS: Anion Gap 13 (12-20); Blood Urea Nitrogen 23 mg/dL (9-16); Calcium 9.1 mg/dL (8.4-10.2); Carbon Dioxide 27 mmol/L (22-29); Chloride 103 mmol/L (96-108); Estimated Glomerular Filt Rate 33; Glucose Random 104 mg/dL (60-115); Potassium 4.3 mmol/L (3.3-5.1); Sodium 139 mmol/L (135-145)
--- NOTE | 2021-12-31 09:31 | HE.PHANOTE ---
Addendum entered by Yenny Garcia RPh 12/31/21 09:58: Patient reported she last took her take home bottle on 12/29/21 Original Note: Methadone verification form received by pharmacy from [facility]. Patient last dosed at [facility] for methadone 110 mg with 21 take home bottle on 12/10/21. Clinic staff reporting dose was [place]. Yenny Garcia, PharmD
[2021-12-31] MEDS: methADONE HCl 20 MG/2 ML ORAL.CONC 110 MG PO (10:17)
[2021-12-31] MEDS: cloNIDine HCL 0.1 MG TABLET PO ×2 (12:10→14:06)
[2021-12-31] MEDS: Gabapentin 100 MG CAPSULE PO (14:06)
[2021-12-31 14:55] LABS: Hematocrit 35.1 % (37.0-47.0); Hemoglobin 11.4 g/dl (12.0-16.0); Mean Corpuscular HGB Conc 32.5 g/dl (31.0-35.0); Mean Corpuscular Hemoglobin 31.1 pg (27.0-33.0); Mean Corpuscular Volume 95.6 fL (80.0-98.0); Mean Platelet Volume 11.9 fL (9.4-12.3); Platelet Count 265 X10*3/uL (160-400); Red Blood Count 3.67 X10*6/uL (4.20-5.50); Red Cell Distribution Width 13.6 % (11.0-16.0); White Blood Count 8.7 X10*3/uL (4.8-10.8)
[2021-12-31 14:58] LABS: Partial Thromboplastin Time 29.1 SEC (26.0-36.4)
[2021-12-31 15:02] LABS: INTERNATIONAL NORM RATIO 0.9 (0.9-1.1); Prothrombin Time 9.7 SEC (10.0-13.1)
[2021-12-31 17:37] VITALS: BP 142/87; PULSE 67; TEMP 36.4; O2SAT 97
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
[2021-12-31 19:20] VITALS: BP 164/98; PULSE 68; TEMP 36.8; O2SAT 97
[2021-12-31] MEDS: Mirtazapine 15 MG TABLET 45 MG PO (20:18)
[2021-12-31] MEDS: QUEtiapine Fumarate 300 MG TABLET PO (20:18)
[2021-12-31] MEDS: Acetaminophen 325 MG TABLET 650 MG PO (20:21)
[2021-12-31] MEDS: cloNIDine HCL 0.2 MG TABLET PO (20:22)
[2021-12-31] MEDS: Gabapentin 400 MG CAPSULE PO (20:22)
[2021-12-31] MEDS: hydrOXYzine HCL 50 MG TABLET PO (20:22)
[2021-12-31] MEDS: traZODone HCL 50 MG TABLET 150 MG PO (20:23)
[2021-12-31] MEDS: Prazosin HCL 1 MG CAPSULE 2 MG PO (20:33)
--- NOTE | 2021-12-31 23:13 | PC.ADMIT ---
Patient is a 41 year old Jordanian speaking female admitted as a CV admission to at 1835 and placed on 15 minute checks. Patient was medically cleared in the [facility], evaluated by UZIELN and deemed in need of IPLOC secondary to a relapse on heroin, depression and SI. Patient had been at a recovery program and was on Methadone but missed a dose of methadone and relapsed. Apparently she was upset about her relapse and had a plan to intentionally overdose. She decided that she would call an ambulance and go to the emergency room. Patient has a history of being IPLOC on as well as substance abuse treatment programs in the past. Her medical history includes antiphospholipid syndrome, asthma, CKD, CVA, Depressive disorder, drug dependence, Hepatitis B and C, h/o PE, h/o multiple deep venous thrombosis. Patient is on Lovenox. She was cooperative during the admission process and said she still had passive SI but did feel safe on the unit. She signed all releases and legals. No HI, AH or VH. Patient eager to get back on track with her sobriety. Patient denied any current withdrawal symptoms. Resting at this time in NAD.
[2022-01-01 08:48] LABS: Hematocrit 36.1 % (37.0-47.0); Hemoglobin 11.7 g/dl (12.0-16.0); Mean Corpuscular HGB Conc 32.4 g/dl (31.0-35.0); Mean Corpuscular Hemoglobin 31.1 pg (27.0-33.0); Mean Platelet Volume 11.6 fL (9.4-12.3); Platelet Count 336 X10*3/uL (160-400); Red Blood Count 3.76 X10*6/uL (4.20-5.50); Red Cell Distribution Width 13.9 % (11.0-16.0); White Blood Count 7.6 X10*3/uL (4.8-10.8)
[2022-01-01 08:55] LABS: INTERNATIONAL NORM RATIO 0.9 (0.9-1.1); Prothrombin Time 10.5 SEC (10.0-13.1)
[2022-01-01 09:00] LABS: Estimated Average Glucose 88 mg/dL; Hemoglobin A1c % 4.7 %
[2022-01-01 09:13] LABS: Cholesterol 300 mg/dL; HDL Cholesterol 56 mg/dL; LDL Cholesterol Calculated 206 mg/dl; Triglycerides 190 mg/dL
[2022-01-01 09:36] LABS: Thyroid Stimulating Hormone 0.98 uIU/mL (0.32-4.0)
[2022-01-01] MEDS: Gabapentin 400 MG CAPSULE PO ×2 (09:42→14:25)
[2022-01-01] MEDS: lamoTRIgine 100 MG TABLET PO (09:42)
[2022-01-01] MEDS: amLODIPine Besylate 10 MG TABLET PO (09:42)
[2022-01-01] MEDS: Cyanocobalamin (Vitamin B-12) 100 MCG TABLET PO (09:42)
[2022-01-01] MEDS: lamoTRIgine 25 MG TABLET PO (09:42)
[2022-01-01] MEDS: Multivitamin TABLET 1 TAB PO (09:42)
[2022-01-01] MEDS: cloNIDine HCL 0.2 MG TABLET PO ×2 (09:43→14:25)
[2022-01-01] MEDS: methADONE HCl 20 MG/2 ML ORAL.CONC 110 MG PO (09:43)
[2022-01-01] MEDS: Enoxaparin Sodium 100 MG/ML SYRINGE SUBCUT (09:44)
[2022-01-01] MEDS: Enoxaparin Sodium 30 MG/0.3 ML SYRINGE SUBCUT (09:44)
[2022-01-01 09:45] LABS: Folate 9.5 ng/mL (> or = 4.0); Vitamin B12 228 pg/mL (200-900)
[2022-01-01] MEDS: Acetaminophen 325 MG TABLET 650 MG PO (09:45)
[2022-01-01 10:00] VITALS: BP 167/97; PULSE 87; RESP 16; TEMP 36.6; O2SAT 95
--- NOTE | 2022-01-01 10:25 | PC.NURSE ---
Three Day Notice Melita signed a Three Day Notice, it will be up on 01/06
--- NOTE | 2022-01-01 17:51 | HO.PSYCHPN ---
Subjective Subjective Date of Service: 01/01/22 Reason For Visit: SI, depression, polysubstance use Subjective Notes: Swain Warning and Conditional Voluntary Healthcare Proxy: No Guardianship: No Medical Problems Affecting Mental Status: No Interim History: Patient seen and discussed with team. Patient evaluated today and upon interview she reports I still feel like shit, attributes to withdrawal- has nausea, musculoskeletal pain, yawning, getting chills for no reason. Slept last night. Has been resting today, feels tired. Feeling depressed. Eating some. Denies SI/SIB/HI. Feels safe. Pt asks for an increase in gabapentin due to anxiety, nerve pain. Reports benefit on clonidine and hydroxyzine for anxiety. Reports lack of benefit on buspar. ? In the milieu, patient is safe but withdrawn in behavior. Says he feels safe. Medication Compliance: Yes Side effects from medications: No Attending Groups: Yes Review of Systems Acute medical concerns: No Medical Review of Systems: unchanged Mental Status Exam Mental Status Exam Narrative: A&O. In casual attire, overweight, unkempt. Poor eye contact, inattentive. No Tics or Tremors. No abnormal involuntary movements. Agitated, withdrawn, difficult to engage likely due to withdrawal. Non-pressured speech, spontaneous with regular rate and rhythm, normal volume and prosody. No prolonged speech latency or dysarthria. Mood is ?tired,? affect is calmer. Denies SI/SIB/HI upon inquiry. Denies A/VH or delusional thought content. Thoughts are goal oriented, linear. No known cognitive or memory impairment. Insight/ Judgment fair and adequate. Diagnostics Vital Signs (24Hr): Vital Signs - 24 hr 12/31/21 19:20 01/01/22 10:00 Temperature 98.2 F 97.9 F Pulse Rate 68 87 Respiratory Rate 16 Blood Pressure 164/98 H 167/97 H Pulse Oximetry 97 95 Oxygen Delivery Method Room Air Room Air BMI result Body Mass Index 28.8 Labs Results: 01/01/22 08:14 12/31/21 08:37 Labs: Laboratory Results - last 48 hr 12/30/21 12/30/21 12/30/21 21:29 21:30 21:33 WBC RBC Hgb Hct MCV MCH MCHC RDW Plt Count MPV Immature Gran % (Auto) Neut % (Auto) Lymph % (Auto) [place] % (Auto) Eos % (Auto) Baso % (Auto) Lymph # (Auto) [place] # (Auto) Eos # (Auto) Baso # (Auto) Abs Immat Gran (auto) Absolute Neuts (auto) Absolute Nucleated RBC Nucleated RBC % (auto) PT INR APTT Sodium 141 Potassium 5.5 H D Chloride 107 Carbon Dioxide 21 L Anion Gap 19 BUN 24 H Creatinine 1.73 H Estim Creat Clear Calc 48.6 Estimated GFR 32 Random Glucose 89 Estimat Average Glucose Hemoglobin A1c % Calcium 9.4 D Magnesium Total Bilirubin 0.5 AST 34 H ALT 21 Alkaline Phosphatase 102 Total Creatine Kinase Total Protein 7.4 Albumin 3.8 Triglycerides Cholesterol LDL Cholesterol, Calc HDL Cholesterol Vitamin B12 Folate TSH Free T4 Urine Opiates Screen POSITIVE H Urine Fentanyl Screen POSITIVE H Ur Barbiturates Screen Not Detected Ur Phencyclidine Scrn Not Detected Ur Amphetamines Screen Not Detected U Benzodiazepines Scrn Not Detected Urine Cocaine Screen POSITIVE H U Marijuana (THC) Screen Not Detected COVID-19 (ADAM) Negative COVID-19 Clin Com See Note 12/31/21 12/31/21 12/31/21 02:04 08:37 14:41 WBC 9.1 8.7 RBC 3.68 L 3.67 L Hgb 11.4 L 11.4 L Hct 35.0 L 35.1 L MCV 95.1 95.6 MCH 31.0 31.1 MCHC 32.6 32.5 RDW 13.7 13.6 Plt Count 329 265 MPV 10.9 11.9 Immature Gran % (Auto) 0.3 Neut % (Auto) 52.2 Lymph % (Auto) 30.1 [place] % (Auto) 14.6 H Eos % (Auto) 2.4 Baso % (Auto) 0.4 Lymph # (Auto) 2.7 [place] # (Auto) 1.3 H Eos # (Auto) 0.2 Baso # (Auto) 0.0 Abs Immat Gran (auto) 0.03 Absolute Neuts (auto) 4.7 Absolute Nucleated RBC 0.000 0.000 Nucleated RBC % (auto) 0.0 0.0 PT INR APTT Sodium 139 Potassium 4.3 D Chloride 103 Carbon Dioxide 27 Anion Gap 13 BUN 23 H Creatinine 1.72 H Estim Creat Clear Calc 49.0 Estimated GFR 33 Random Glucose 104 Estimat Average Glucose Hemoglobin A1c % Calcium 9.1 Magnesium Total Bilirubin AST ALT Alkaline Phosphatase Total Creatine Kinase 83 D Total Protein Albumin Triglycerides Cholesterol LDL Cholesterol, Calc HDL Cholesterol Vitamin B12 Folate TSH Free T4 Urine Opiates Screen Urine Fentanyl Screen Ur Barbiturates Screen Ur Phencyclidine Scrn Ur Amphetamines Screen U Benzodiazepines Scrn Urine Cocaine Screen U Marijuana (THC) Screen COVID-19 (AD[facility]) COVID-19 Clin Com 12/31/21 01/01/22 01/01/22 14:41 08:13 08:13 WBC RBC Hgb Hct MCV MCH MCHC RDW Plt Count MPV Immature Gran % (Auto) Neut % (Auto) Lymph % (Auto) [place] % (Auto) Eos % (Auto) Baso % (Auto) Lymph # (Auto) [place] # (Auto) Eos # (Auto) Baso # (Auto) Abs Immat Gran (auto) Absolute Neuts (auto) Absolute Nucleated RBC Nucleated RBC % (auto) PT 9.7 L 10.5 INR 0.9 0.9 APTT 29.1 Sodium Potassium Chloride Carbon Dioxide Anion Gap BUN Creatinine Estim Creat Clear Calc Estimated GFR Random Glucose Estimat Average Glucose 88 Hemoglobin A1c % 4.7 Calcium Magnesium Total Bilirubin AST ALT Alkaline Phosphatase Total Creatine Kinase Total Protein Albumin Triglycerides Cholesterol LDL Cholesterol, Calc HDL Cholesterol Vitamin B12 Folate TSH Free T4 Urine Opiates Screen Urine Fentanyl Screen Ur Barbiturates Screen Ur Phencyclidine Scrn Ur Amphetamines Screen U Benzodiazepines Scrn Urine Cocaine Screen U Marijuana (THC) Screen COVID-19 (AD[facility]) COVID-19 Clin Com 01/01/22 01/01/22 01/01/22 08:13 08:13 08:14 WBC 7.6 RBC 3.76 L Hgb 11.7 L Hct 36.1 L MCV 96.0 MCH 31.1 MCHC 32.4 RDW 13.9 Plt Count 336 D MPV 11.6 Immature Gran % (Auto) Neut % (Auto) Lymph % (Auto) [place] % (Auto) Eos % (Auto) Baso % (Auto) Lymph # (Auto) [place] # (Auto) Eos # (Auto) Baso # (Auto) Abs Immat Gran (auto) Absolute Neuts (auto) Absolute Nucleated RBC 0.000 Nucleated RBC % (auto) 0.0 PT INR APTT Sodium Potassium Chloride Carbon Dioxide Anion Gap BUN Creatinine Estim Creat Clear Calc Estimated GFR Random Glucose Estimat Average Glucose Hemoglobin A1c % Calcium Magnesium 2.0 Total Bilirubin AST ALT Alkaline Phosphatase Total Creatine Kinase Total Protein Albumin Triglycerides 190 Cholesterol 300 D LDL Cholesterol, Calc 206 HDL Cholesterol 56 D Vitamin B12 228 Folate 9.5 TSH 0.98 Free T4 0.90 Urine Opiates Screen Urine Fentanyl Screen Ur Barbiturates Screen Ur Phencyclidine Scrn Ur Amphetamines Screen U Benzodiazepines Scrn Urine Cocaine Screen U Marijuana (THC) Screen COVID-19 (ADAM) COVID-19 Clin Com Medications Medications Current Medications Acetaminophen (Acetaminophen 325 Mg Tablet) 650 mg PO Q6H PRN PRN Reason: Headache/Pain Mild Scale (1-3) Last Admin: 01/01/22 09:45 Dose: 650 mg Al Hydroxide/Mg Hydroxide (Magnesium Hydrox/Alum Hydrox 30 Ml Oral.Susp) 30 ml PO Q6H PRN PRN Reason: Heartburn/Nausea Al Hydroxide/Mg Hydroxide (Magnesium Hydrox/Alum Hydrox 30 Ml Oral.Susp) 30 ml PO Q6H PRN PRN Reason: Heartburn/Nausea Amlodipine Besylate (Amlodipine Besylate 10 Mg Tablet) 10 mg PO DAILY [facility]; Protocol Last Admin: 01/01/22 09:42 Dose: 10 mg Clonidine HCl (Clonidine Hcl 0.2 Mg Tablet) 0.2 mg PO TID PRN; Protocol PRN Reason: hyperarousal, anxiety Last Admin: 01/01/22 14:25 Dose: 0.2 mg Cyanocobalamin (Cyanocobalamin (Vitamin B-12) 100 Mcg Tablet) 100 mcg PO DAILY [facility] Last Admin: 01/01/22 09:42 Dose: 100 mcg Enoxaparin Sodium (Enoxaparin Sodium 30 Mg/0.3 Ml Syringe) 30 mg SUBCUT DAILY [facility] Last Admin: 01/01/22 09:44 Dose: 30 mg Enoxaparin Sodium (Enoxaparin Sodium 100 Mg/Ml Syringe) 100 mg SUBCUT DAILY [facility] Last Admin: 01/01/22 09:44 Dose: 100 mg Gabapentin (Gabapentin 400 Mg Capsule) 400 mg PO TID [facility] Last Admin: 01/01/22 14:25 Dose: 400 mg Hydroxyzine HCl (Hydroxyzine Hcl 50 Mg Tablet) 50 mg PO Q6H PRN PRN Reason: Anxiety Last Admin: 12/31/21 20:22 Dose: 50 mg Lamotrigine (Lamotrigine 25 Mg Tablet) 25 mg PO DAILY [facility] Last Admin: 01/01/22 09:42 Dose: 25 mg Lamotrigine (Lamotrigine 100 Mg Tablet) 100 mg PO DAILY [facility] Last Admin: 01/01/22 09:42 Dose: 100 mg Magnesium Hydroxide (Milk Of Magnesia 30 Ml Oral.Susp) 30 ml PO DAILY PRN PRN Reason: Constipation Magnesium Hydroxide (Milk Of Magnesia 30 Ml Oral.Susp) 30 ml PO DAILY PRN PRN Reason: Constipation Methadone HCl (Methadone Hcl 20 Mg/2 Ml Oral.Conc) 110 mg PO DAILY [facility] Last Admin: 01/01/22 09:43 Dose: 110 mg Mirtazapine (Mirtazapine 15 Mg Tablet) 45 mg PO BEDTIME [facility] Last Admin: 12/31/21 20:18 Dose: 45 mg Multivitamins/Vitamin C (Multivitamin Tablet) 1 tab PO DAILY [facility] Last Admin: 01/01/22 09:42 Dose: 1 tab Non-Formulary Medication (Lumateperone [Caplyta]) 1 cap PO DAILY [facility] Ondansetron HCl (Ondansetron Odt 4 Mg Tab.Rapdis) 4 mg TRANSLINGU Q6H PRN PRN Reason: Migraine Headache Pharmacy Consult (Consult Rx Perform Med Rec) 1 each MISCELLANE ONCE PRN PRN Reason: Consult order Prazosin HCl (Prazosin Hcl 1 Mg Capsule) 2 mg PO BEDTIME [facility]; Protocol Last Admin: 12/31/21 20:33 Dose: 2 mg Quetiapine Fumarate (Quetiapine Fumarate 50 Mg Tablet) 50 mg PO DAILY PRN PRN Reason: Psychosis Quetiapine Fumarate (Quetiapine Fumarate 300 Mg Tablet) 300 mg PO BEDTIME [facility] Last Admin: 12/31/21 20:18 Dose: 300 mg Trazodone HCl (Trazodone Hcl 50 Mg Tablet) 150 mg PO BEDTIME PRN PRN Reason: Insomnia Last Admin: 12/31/21 20:23 Dose: 150 mg Allergies Allergies Allergy/AdvReac Type Severity Reaction Status Date / Time bee pollen [BEE STINGS] Allergy Severe Anaphylaxis Verified 12/30/21 19:45 codeine [CODEINE] Allergy Severe ANAPHYLAXIS Verified 12/30/21 19:45 Iodinated Contrast Media Allergy Severe DIFFICULTY Verified 12/30/21 19:45 [IV DYE, IODINE CONTAINING BREATHING CONTRAST ] nut - unspecified [nut] Allergy Intermediate Rash Verified 12/30/21 19:45 shellfish derived Allergy Intermediate Rash Verified 12/30/21 19:45 Sulfa (Sulfonamide Allergy Unknown ANAPHYLAXIS Verified 12/30/21 19:45 Antibiotics) [SULFA (SULFONAMIDE ANTIBIOTICS)] fluoxetine [From Prozac] AdvReac Severe Migraine Verified 12/30/21 19:45 Assessment & Plan Assessment & Plan (1) MDD (major depressive disorder), recurrent episode, moderate: Status: Acute Code(s): F33.1 - Major depressive disorder, recurrent, moderate (2) PTSD (post-traumatic stress disorder): Status: Acute Code(s): F43.10 - Post-traumatic stress disorder, unspecified (3) Opioid use disorder, severe, dependence: Status: Acute Code(s): F11.20 - Opioid dependence, uncomplicated (4) Cocaine use disorder: Status: Acute Code(s): F14.10 - Cocaine abuse, uncomplicated Plan Melita is a 41-year-old Female who carries a dx of polysubstance abuse, MDD recurrent, and HERSON. Denies alcohol abuse. 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 She presented to [facility] 12/30/21 with SI with a plan to OD on heroin and cocaine IV. She reports she has been adherent on her home medications, including lamictal, up until 12/26 or and her home meds were continued in the ED setting. Utox positive for cocaine, fentanyl, and opiates.?Of note, recent medical admission for acute kidney injury superimposed on CKD. 12/31: Start clonidine 0.2 mg TID PRN for hyperarousal, withdrawal 01/01: Reviewed pt with park services specialist, Cecy Espino NP, will increase methadone to 115 mg. Will increase gabapentin to 600 mg TID to target mood stability, anxiety, and chronic pain sx. Q15 min safety checks, CV Monitor response to medications. Monitor for safety in the milieu. Discharge on stabilization. Patient seen. Chart reviewed. Discussed with team. Obtain collateral contact info?as needed I spent minutes with the patient and/or on the patient floor today, greater than?50% of which was spent counseling/coordinating care. Patient educated on: diagnosis, medication risk/benefits, substance abuse and therapeutic strategies Reason for contiued inpatient stay Substantial Risk for: harm to self and med/psych decompensation
[2022-01-01 18:00] VITALS: BP 138/78; PULSE 65; RESP 16; TEMP 36.8; O2SAT 99
[2022-01-01] MEDS: Gabapentin 300 MG CAPSULE 600 MG PO (20:57)
[2022-01-01] MEDS: Mirtazapine 15 MG TABLET 45 MG PO (20:57)
[2022-01-01] MEDS: QUEtiapine Fumarate 300 MG TABLET PO (20:57)
[2022-01-01] MEDS: Prazosin HCL 1 MG CAPSULE 2 MG PO (20:58)
[2022-01-02 06:00] VITALS: BP 149/74; PULSE 62; RESP 16; TEMP 36.4; O2SAT 96
[2022-01-02 07:00] VITALS: BMI 29.5
[2022-01-02] MEDS: methADONE HCl 20 MG/2 ML ORAL.CONC 115 MG PO (08:39)
[2022-01-02] MEDS: lamoTRIgine 100 MG TABLET PO (08:40)
[2022-01-02] MEDS: Gabapentin 300 MG CAPSULE 600 MG PO ×3 (08:40→19:34)
[2022-01-02] MEDS: Cyanocobalamin (Vitamin B-12) 100 MCG TABLET PO (08:40)
[2022-01-02] MEDS: lamoTRIgine 25 MG TABLET PO (08:40)
[2022-01-02] MEDS: Multivitamin TABLET 1 TAB PO (08:40)
[2022-01-02] MEDS: cloNIDine HCL 0.2 MG TABLET PO ×2 (08:40→14:07)
[2022-01-02] MEDS: amLODIPine Besylate 10 MG TABLET PO (08:41)
[2022-01-02] MEDS: Enoxaparin Sodium 30 MG/0.3 ML SYRINGE SUBCUT (08:42)
[2022-01-02] MEDS: Enoxaparin Sodium 100 MG/ML SYRINGE SUBCUT (08:42)
[2022-01-02] MEDS: Nicotine Polacrilex Lozenge 4 MG LOZENGE BUCCAL (11:15)
[2022-01-02 16:04] VITALS: BP 128/73; PULSE 72; TEMP 36.6; O2SAT 98
--- NOTE | 2022-01-02 17:59 | P.PNPSI_ITS ---
Subjective Subjective Date of Service: 01/02/22 Reason For Visit: SI, depression, polysubstance use Subjective Notes: Swain Warning and Conditional Voluntary Interim History: Patient seen and discussed with team. Patient evaluated today and upon interview im good where im at with methadone. She is adovicating for discharge, as her mother was helping to watch her 10 y.o. son, however she relapsed and DCF is involved. Her son is now with her sister in law. She would like to be able to attend to her home situation. Likes her medications, I actually felt better with the gabapentin 600 mg TID and clonidine 0.2 mg BID, nicorette lozenge. Denies SI/SIB, says she is feeling safe. She didnt sleep well last night due to stress, but she slept today. Able to identify protective factors for discharge, i.e. she goes to , SW is referring her for OP psych services at [facility], she has a sponsor, and she likes the clinician at her methadone clinic.? Medication Compliance: Yes Side effects from medications: No Attending Groups: No Review of Systems Acute medical concerns: No Medical Review of Systems: unchanged Mental Status Exam Mental Status Exam Narrative: A&O. In casual attire, overweight, unkempt. Poor eye contact, inattentive. No Tics or Tremors. No abnormal involuntary movements. Agitated, withdrawn, difficult to engage likely due to withdrawal. Non-pressured speech, spontaneous with regular rate and rhythm, normal volume and prosody. No prolonged speech latency or dysarthria. Mood is ?better,? affect is calmer. Denies SI/SIB/HI upon inquiry. Denies A/VH or delusional thought content. Thoughts are goal oriented, linear. No known cognitive or memory impairment. Insight/ Judgment fair and adequate. Diagnostics Vital Signs (24Hr): Vital Signs - 24 hr 01/01/22 18:00 01/02/22 06:00 01/02/22 16:04 Temperature 98.2 F 97.5 F 98 F Pulse Rate 65 62 72 Respiratory Rate 16 16 Blood Pressure 138/78 149/74 H 128/73 Pulse Oximetry 99 96 98 Oxygen Delivery Method Room Air Room Air BMI result Body Mass Index 29.5 Labs Results: 01/01/22 08:14 12/31/21 08:37 Labs: Laboratory Results - last 48 hr 01/01/22 01/01/22 01/01/22 08:13 08:13 08:13 WBC RBC Hgb Hct MCV MCH MCHC RDW Plt Count MPV Absolute Nucleated RBC Nucleated RBC % (auto) PT 10.5 INR 0.9 Estimat Average Glucose 88 Hemoglobin A1c % 4.7 Magnesium 2.0 Triglycerides 190 Cholesterol 300 D LDL Cholesterol, Calc 206 HDL Cholesterol 56 D Vitamin B12 Folate TSH 0.98 Free T4 0.90 01/01/22 01/01/22 08:13 08:14 WBC 7.6 RBC 3.76 L Hgb 11.7 L Hct 36.1 L MCV 96.0 MCH 31.1 MCHC 32.4 RDW 13.9 Plt Count 336 D MPV 11.6 Absolute Nucleated RBC 0.000 Nucleated RBC % (auto) 0.0 PT INR Estimat Average Glucose Hemoglobin A1c % Magnesium Triglycerides Cholesterol LDL Cholesterol, Calc HDL Cholesterol Vitamin B12 228 Folate 9.5 TSH Free T4 Medications Medications Current Medications Acetaminophen (Acetaminophen 325 Mg Tablet) 650 mg PO Q6H PRN PRN Reason: Headache/Pain Mild Scale (1-3) Last Admin: 01/01/22 09:45 Dose: 650 mg Al Hydroxide/Mg Hydroxide (Magnesium Hydrox/Alum Hydrox 30 Ml Oral.Susp) 30 ml PO Q6H PRN PRN Reason: Heartburn/Nausea Al Hydroxide/Mg Hydroxide (Magnesium Hydrox/Alum Hydrox 30 Ml Oral.Susp) 30 ml PO Q6H PRN PRN Reason: Heartburn/Nausea Amlodipine Besylate (Amlodipine Besylate 10 Mg Tablet) 10 mg PO DAILY [facility]; Protocol Last Admin: 01/02/22 08:41 Dose: 10 mg Clonidine HCl (Clonidine Hcl 0.2 Mg Tablet) 0.2 mg PO TID PRN; Protocol PRN Reason: hyperarousal, anxiety Last Admin: 01/02/22 14:07 Dose: 0.2 mg Cyanocobalamin (Cyanocobalamin (Vitamin B-12) 100 Mcg Tablet) 100 mcg PO DAILY [facility] Last Admin: 01/02/22 08:40 Dose: 100 mcg Enoxaparin Sodium (Enoxaparin Sodium 30 Mg/0.3 Ml Syringe) 30 mg SUBCUT DAILY [facility] Last Admin: 01/02/22 08:42 Dose: 30 mg Enoxaparin Sodium (Enoxaparin Sodium 100 Mg/Ml Syringe) 100 mg SUBCUT DAILY [facility] Last Admin: 01/02/22 08:42 Dose: 100 mg Gabapentin (Gabapentin 300 Mg Capsule) 600 mg PO TID [facility] Last Admin: 01/02/22 14:07 Dose: 600 mg Hydroxyzine HCl (Hydroxyzine Hcl 50 Mg Tablet) 50 mg PO Q6H PRN PRN Reason: Anxiety Last Admin: 12/31/21 20:22 Dose: 50 mg Lamotrigine (Lamotrigine 25 Mg Tablet) 25 mg PO DAILY [facility] Last Admin: 01/02/22 08:40 Dose: 25 mg Lamotrigine (Lamotrigine 100 Mg Tablet) 100 mg PO DAILY [facility] Last Admin: 01/02/22 08:40 Dose: 100 mg Magnesium Hydroxide (Milk Of Magnesia 30 Ml Oral.Susp) 30 ml PO DAILY PRN PRN Reason: Constipation Magnesium Hydroxide (Milk Of Magnesia 30 Ml Oral.Susp) 30 ml PO DAILY PRN PRN Reason: Constipation Methadone HCl (Methadone Hcl 20 Mg/2 Ml Oral.Conc) 115 mg PO DAILY [facility] Last Admin: 01/02/22 08:39 Dose: 115 mg Mirtazapine (Mirtazapine 15 Mg Tablet) 45 mg PO BEDTIME [facility] Last Admin: 01/01/22 20:57 Dose: 45 mg Multivitamins/Vitamin C (Multivitamin Tablet) 1 tab PO DAILY [facility] Last Admin: 01/02/22 08:40 Dose: 1 tab Nicotine Polacrilex (Nicotine Polacrilex Lozenge 4 Mg Lozenge) 4 mg BUCCAL Q1H PRN PRN Reason: Nicotine Cravings Last Admin: 01/02/22 11:15 Dose: 4 mg Non-Formulary Medication (Lumateperone [Caplyta]) 1 cap PO DAILY [facility] Ondansetron HCl (Ondansetron Odt 4 Mg Tab.Rapdis) 4 mg TRANSLINGU Q6H PRN PRN Reason: Migraine Headache Pharmacy Consult (Consult Rx Perform Med Rec) 1 each MISCELLANE ONCE PRN PRN Reason: Consult order Prazosin HCl (Prazosin Hcl 1 Mg Capsule) 2 mg PO BEDTIME [facility]; Protocol Last Admin: 01/01/22 20:58 Dose: 2 mg Quetiapine Fumarate (Quetiapine Fumarate 50 Mg Tablet) 50 mg PO DAILY PRN PRN Reason: Psychosis Quetiapine Fumarate (Quetiapine Fumarate 300 Mg Tablet) 300 mg PO BEDTIME [facility] Last Admin: 01/01/22 20:57 Dose: 300 mg Trazodone HCl (Trazodone Hcl 50 Mg Tablet) 150 mg PO BEDTIME PRN PRN Reason: Insomnia Last Admin: 12/31/21 20:23 Dose: 150 mg Allergies Allergies Allergy/AdvReac Type Severity Reaction Status Date / Time bee pollen [BEE STINGS] Allergy Severe Anaphylaxis Verified 12/30/21 19:45 codeine [CODEINE] Allergy Severe ANAPHYLAXIS Verified 12/30/21 19:45 Iodinated Contrast Media Allergy Severe DIFFICULTY Verified 12/30/21 19:45 [IV DYE, IODINE CONTAINING BREATHING CONTRAST ] nut - unspecified [nut] Allergy Intermediate Rash Verified 12/30/21 19:45 shellfish derived Allergy Intermediate Rash Verified 12/30/21 19:45 Sulfa (Sulfonamide Allergy Unknown ANAPHYLAXIS Verified 12/30/21 19:45 Antibiotics) [SULFA (SULFONAMIDE ANTIBIOTICS)] fluoxetine [From Prozac] AdvReac Severe Migraine Verified 12/30/21 19:45 Assessment & Plan Assessment & Plan (1) MDD (major depressive disorder), recurrent episode, moderate: Status: Acute Code(s): F33.1 - Major depressive disorder, recurrent, moderate (2) PTSD (post-traumatic stress disorder): Status: Acute Code(s): F43.10 - Post-traumatic stress disorder, unspecified (3) Opioid use disorder, severe, dependence: Status: Acute Code(s): F11.20 - Opioid dependence, uncomplicated (4) Cocaine use disorder: Status: Acute Code(s): F14.10 - Cocaine abuse, uncomplicated Plan Melita is a 41-year-old Female who carries a dx of polysubstance abuse, MDD recurrent, and HERSON. Denies alcohol abuse. 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 She presented to [facility] 12/30/21 with SI with a plan to OD on heroin and cocaine IV. She reports she has been adherent on her home medications, including lamictal, up until 12/26 or and her home meds were continued in the ED setting. Utox positive for cocaine, fentanyl, and opiates. Of note, recent medical admission for acute kidney injury superimposed on CKD. 12/31: Start clonidine 0.2 mg TID PRN for hyperarousal, withdrawal 01/01: Reviewed pt with account management specialist, Cecy Espino R D INTERN, will increase methadone to 115 mg. Will increase gabapentin to 600 mg TID to target mood stability, anxiety, and chronic pain sx. 01/02: No medication changes, as pt reports benefit on current meds and is advocating for discharge, says she feels safe, denies SI/SIB Q15 min safety checks, CV Monitor response to medications. Monitor for safety in the milieu. Discharge on stabilization. Patient seen. Chart reviewed. Discussed with team. Obtain collateral contact info as needed I spent minutes with the patient and/or on the patient floor today, greater than?50% of which was spent counseling/coordinating care. Patient educated on: diagnosis, medication risk/benefits, substance abuse and therapeutic strategies Reason for contiued inpatient stay Substantial Risk for: harm to self and med/psych decompensation
[2022-01-02] MEDS: Mirtazapine 15 MG TABLET 45 MG PO (19:33)
[2022-01-02] MEDS: Prazosin HCL 1 MG CAPSULE 2 MG PO (19:33)
[2022-01-02] MEDS: QUEtiapine Fumarate 300 MG TABLET PO (19:34)
[2022-01-02] MEDS: traZODone HCL 50 MG TABLET 150 MG PO (19:48)
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
[2022-01-03 08:12] VITALS: BP 133/74; PULSE 62; RESP 18; TEMP 35.9
[2022-01-03 08:19] VITALS: BP 172/104; PULSE 74; RESP 18; TEMP 36.7
[2022-01-03] MEDS: lamoTRIgine 100 MG TABLET PO (08:21)
[2022-01-03] MEDS: Multivitamin TABLET 1 TAB PO (08:21)
[2022-01-03] MEDS: amLODIPine Besylate 10 MG TABLET PO (08:21)
[2022-01-03] MEDS: lamoTRIgine 25 MG TABLET PO (08:21)
[2022-01-03] MEDS: Gabapentin 300 MG CAPSULE 600 MG PO ×2 (08:21→13:38)
[2022-01-03] MEDS: methADONE HCl 20 MG/2 ML ORAL.CONC 115 MG PO (08:21)
[2022-01-03] MEDS: Cyanocobalamin (Vitamin B-12) 100 MCG TABLET PO (08:21)
[2022-01-03] MEDS: Enoxaparin Sodium 100 MG/ML SYRINGE SUBCUT (09:39)
[2022-01-03] MEDS: Enoxaparin Sodium 30 MG/0.3 ML SYRINGE SUBCUT (09:39)
[2022-01-03] MEDS: QUEtiapine Fumarate 50 MG TABLET PO (10:29)
[2022-01-03] MEDS: Nicotine Polacrilex Lozenge 4 MG LOZENGE BUCCAL (12:02)
[2022-01-03] MEDS: cloNIDine HCL 0.2 MG TABLET PO (12:02)
[2022-01-03 12:03] VITALS: BP 158/84; PULSE 81
--- NOTE | 2022-01-03 23:08 | P.DS_ITS ---
DS: Providers Provider Date of Service: 01/03/22 Date of admission: 12/31/21 19:20 Date of discharge: 01/03/22 Primary care physician: Jose Rashid [facility] Admitting clinician: Sera Huitron Attending physician on admission: Cheo Potter Consults: 12/31/21 19:48 Addiction Medicine Stat Consulting Provider: Cecy Espino Reason for consultation: wants increase in methadone DS: Diagnosis Discharge Diagnosis (1) MDD (major depressive disorder), recurrent episode, moderate: Status: Acute (2) PTSD (post-traumatic stress disorder): Status: Acute (3) Opioid use disorder, severe, dependence: Status: Acute (4) Cocaine use disorder: Status: Acute DS: Medications Discharge Medications Home Medications: Home Medications Medication Instructions Recorded Confirmed hydroxyzine HCl 25 mg tablet 25 mg PO DAILY PRN Anxiety 10/16/21 12/31/21 prazosin 1 mg capsule 2 mg PO BEDTIME 10/16/21 12/31/21 lumateperone 42 mg capsule 1 cap PO DAILY 12/19/21 12/31/21 (Caplyta) multivitamin 1 tab PO DAILY 12/31/21 12/31/21 ondansetron 4 mg disintegrating 4 mg PO Q6H PRN Migraine Headache 12/31/21 12/31/21 tablet Previous Rx's Medication Instructions Recorded sumatriptan succinate 100 mg tablet 50 mg PO DAILY MRX1 PRN Migraine 07/01/21 Headache 30 days #10 tabs amlodipine 10 mg tablet 10 mg PO DAILY 30 days #30 tabs 12/04/21 enoxaparin 100 mg/mL subcutaneous 100 mg subcut DAILY 30 days #30 mL 12/20/21 syringe enoxaparin 30 mg/0.3 mL 30 mg (0.3 mL) subcut DAILY 30 12/20/21 subcutaneous syringe days #9 mL clonidine HCl 0.2 mg tablet 0.2 mg PO TID PRN anxiety #21 tabs 01/03/22 gabapentin 600 mg tablet 600 mg PO TID #21 tabs 01/03/22 lamotrigine 100 mg tablet 100 mg PO DAILY #30 tabs 01/03/22 (Lamictal) lamotrigine 25 mg tablet (Lamictal) 25 mg PO DAILY 14 days #30 tabs 01/03/22 methadone 10 mg/mL oral 115 mg (11.5 mL) PO DAILY #0 mL 01/03/22 concentrate (Methadose) mirtazapine 45 mg tablet 45 mg PO BEDTIME #14 tabs 01/03/22 nicotine (polacrilex) 4 mg gum 4 mg buccal Q2H PRN nicotine 01/03/22 cravings #50 ea quetiapine 300 mg tablet (Seroquel) 300 mg PO BEDTIME #14 tabs 01/03/22 quetiapine 50 mg tablet (Seroquel) 50 mg PO DAILY PRN anxiety, 01/03/22 agitation #14 tabs trazodone 150 mg tablet 150 mg PO BEDTIME PRN insomnia #14 01/03/22 tabs vitamin B12 500 mcg-folic acid 400 1 tab PO DAILY #30 tabs 01/03/22 mcg tablet Mental Status Exam Mental Status Exam Narrative: A&O. In casual attire, overweight, unkempt. Poor eye contact, inattentive. No Tics or Tremors. No abnormal involuntary movements. Agitated, withdrawn, difficult to engage likely due to withdrawal. Non-pressured speech, spontaneous with regular rate and rhythm, normal volume and prosody. No prolonged speech latency or dysarthria. Mood is ?better,? affect is calmer. Denies SI/SIB/HI upon inquiry. Denies A/VH or delusional thought content. Thoughts are goal oriented, linear. No known cognitive or memory impairment. Insight/ Judgment fair and adequate. Data Data Completed and Pending Completed studies during hospitalization [Text1]: 12/30/21 12/30/21 12/30/21 21:29 21:30 21:33 WBC RBC Hgb Hct MCV MCH MCHC RDW Plt Count MPV Immature Gran % (Auto) Neut % (Auto) Lymph % (Auto) [place] % (Auto) Eos % (Auto) Baso % (Auto) Lymph # (Auto) [place] # (Auto) Eos # (Auto) Baso # (Auto) Abs Immat Gran (auto) Absolute Neuts (auto) Absolute Nucleated RBC Nucleated RBC % (auto) PT INR APTT Sodium 141 Potassium 5.5 H D Chloride 107 Carbon Dioxide 21 L Anion Gap 19 BUN 24 H Creatinine 1.73 H Estim Creat Clear Calc 48.6 Estimated GFR 32 Random Glucose 89 Estimat Average Glucose Hemoglobin A1c % Calcium 9.4 D Magnesium Total Bilirubin 0.5 AST 34 H ALT 21 Alkaline Phosphatase 102 Total Creatine Kinase Total Protein 7.4 Albumin 3.8 Triglycerides Cholesterol LDL Cholesterol, Calc HDL Cholesterol Vitamin B12 Folate TSH Free T4 Urine Opiates Screen POSITIVE H Urine Fentanyl Screen POSITIVE H Ur Barbiturates Screen Not Detected Ur Phencyclidine Scrn Not Detected Ur Amphetamines Screen Not Detected U Benzodiazepines Scrn Not Detected Urine Cocaine Screen POSITIVE H U Marijuana (THC) Screen Not Detected COVID-19 ([facility]) Negative COVID-19 Clin Com See Note 12/31/21 12/31/21 12/31/21 02:04 08:37 14:41 WBC 9.1 8.7 RBC 3.68 L 3.67 L Hgb 11.4 L 11.4 L Hct 35.0 L 35.1 L MCV 95.1 95.6 MCH 31.0 31.1 MCHC 32.6 32.5 RDW 13.7 13.6 Plt Count 329 265 MPV 10.9 11.9 Immature Gran % (Auto) 0.3 Neut % (Auto) 52.2 Lymph % (Auto) 30.1 [place] % (Auto) 14.6 H Eos % (Auto) 2.4 Baso % (Auto) 0.4 Lymph # (Auto) 2.7 [place] # (Auto) 1.3 H Eos # (Auto) 0.2 Baso # (Auto) 0.0 Abs Immat Gran (auto) 0.03 Absolute Neuts (auto) 4.7 Absolute Nucleated RBC 0.000 0.000 Nucleated RBC % (auto) 0.0 0.0 PT INR APTT Sodium 139 Potassium 4.3 D Chloride 103 Carbon Dioxide 27 Anion Gap 13 BUN 23 H Creatinine 1.72 H Estim Creat Clear Calc 49.0 Estimated GFR 33 Random Glucose 104 Estimat Average Glucose Hemoglobin A1c % Calcium 9.1 Magnesium Total Bilirubin AST ALT Alkaline Phosphatase Total Creatine Kinase 83 D Total Protein Albumin Triglycerides Cholesterol LDL Cholesterol, Calc HDL Cholesterol Vitamin B12 Folate TSH Free T4 Urine Opiates Screen Urine Fentanyl Screen Ur Barbiturates Screen Ur Phencyclidine Scrn Ur Amphetamines Screen U Benzodiazepines Scrn Urine Cocaine Screen U Marijuana (THC) Screen COVID-19 ([facility]) COVID-19 Clin Com 12/31/21 01/01/22 01/01/22 14:41 08:13 08:13 WBC RBC Hgb Hct MCV MCH MCHC RDW Plt Count MPV Immature Gran % (Auto) Neut % (Auto) Lymph % (Auto) [place] % (Auto) Eos % (Auto) Baso % (Auto) Lymph # (Auto) [place] # (Auto) Eos # (Auto) Baso # (Auto) Abs Immat Gran (auto) Absolute Neuts (auto) Absolute Nucleated RBC Nucleated RBC % (auto) PT 9.7 L 10.5 INR 0.9 0.9 APTT 29.1 Sodium Potassium Chloride Carbon Dioxide Anion Gap BUN Creatinine Estim Creat Clear Calc Estimated GFR Random Glucose Estimat Average Glucose 88 Hemoglobin A1c % 4.7 Calcium Magnesium Total Bilirubin AST ALT Alkaline Phosphatase Total Creatine Kinase Total Protein Albumin Triglycerides Cholesterol LDL Cholesterol, Calc HDL Cholesterol Vitamin B12 Folate TSH Free T4 Urine Opiates Screen Urine Fentanyl Screen Ur Barbiturates Screen Ur Phencyclidine Scrn Ur Amphetamines Screen U Benzodiazepines Scrn Urine Cocaine Screen U Marijuana (THC) Screen COVID-19 ([facility]) COVID-19 [email or web address] Com 01/01/22 01/01/22 01/01/22 08:13 08:13 08:14 WBC 7.6 RBC 3.76 L Hgb 11.7 L Hct 36.1 L MCV 96.0 MCH 31.1 MCHC 32.4 RDW 13.9 Plt Count 336 D MPV 11.6 Immature Gran % (Auto) Neut % (Auto) Lymph % (Auto) [place] % (Auto) Eos % (Auto) Baso % (Auto) Lymph # (Auto) [place] # (Auto) Eos # (Auto) Baso # (Auto) Abs Immat Gran (auto) Absolute Neuts (auto) Absolute Nucleated RBC 0.000 Nucleated RBC % (auto) 0.0 PT INR APTT Sodium Potassium Chloride Carbon Dioxide Anion Gap BUN Creatinine Estim Creat Clear Calc Estimated GFR Random Glucose Estimat Average Glucose Hemoglobin A1c % Calcium Magnesium 2.0 Total Bilirubin AST ALT Alkaline Phosphatase Total Creatine Kinase Total Protein Albumin Triglycerides 190 Cholesterol 300 D LDL Cholesterol, Calc 206 HDL Cholesterol 56 D Vitamin B12 228 Folate 9.5 TSH 0.98 Free T4 0.90 Urine Opiates Screen Urine Fentanyl Screen Ur Barbiturates Screen Ur Phencyclidine Scrn Ur Amphetamines Screen U Benzodiazepines Scrn Urine Cocaine Screen U Marijuana (THC) Screen COVID-19 ([facility]) COVID-19 Clin Com DS: Summary Hospital Course Hospital Course: Melita is a 41-year-old Female who carries a dx of polysubstance abuse, MDD recurrent, and HERSON. Denies alcohol abuse. 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 She presented to [facility] ED 12/30/21 with SI with a plan to OD on heroin and cocaine IV. She reports she has been adherent on her home medications, including lamictal, up until 12/26 or and her home meds were continued in the ED setting. Utox positive for cocaine, fentanyl, and opiates. Of note, recent medical admission for acute kidney injury superimposed on CKD. 12/31: Start clonidine 0.2 mg TID PRN for hyperarousal, withdrawal 01/01: Reviewed pt with donor services specialist, Cecy Espino [employer], will increase methadone to 115 mg. Will increase gabapentin to 600 mg TID to target mood stability, anxiety, and chronic pain sx. 01/02: No medication changes, as pt reports benefit on current meds and is advocating for discharge due to family issues and wants to be available for her son, says she feels safe, denies SI/SIB. No imminent safety concerns. Pt is at risk for relapse but she has hx of chronic relapsing and already has substance use treatment in place in OP setting, no need to keep her inpatient to work on this. Time spent discussing smoking cessation with patient: 3 to 10 minutes Status at Discharge Functional status at discharge: independent ambulation Overall status at discharge: patient is progressing back to baseline Time Spent with Patient Time attestation: Total time spent providing and/or coordinating discharge services: Discharge Plan Discharge Patient Disposition: Home, Self-Care Discharge Diagnosis: Recurrent Major Depression PTSD Opiate Use Disorder Cocaine Use Disorder Referrals: Therapy Intake: Chelsy Viveros [Other] - 01/07/22 11:00 am (The therapy intake appointment is in-person at the above location. 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 ) Discharge Medications: New methadone [Methadose] 10 mg/mL Concentrate 115 mg PO DAILY Qty: 0 0RF Rx Instructions: Partial Fill upon patient request. vitamin [id number] acid 500-400 mcg tablet 1 tab PO DAILY Qty: 30 0RF Rx Instructions: administer with a meal clonidine HCl 0.2 mg tablet 0.2 mg PO TID PRN (Reason: anxiety) Qty: 21 4RF gabapentin 600 mg tablet 600 mg PO TID Qty: 21 4RF nicotine (polacrilex) 4 mg gum 4 mg buccal Q2H PRN (Reason: nicotine cravings) Qty: 50 0RF lamotrigine [Lamictal] 25 mg tablet 25 mg PO DAILY 14 Days Qty: 30 0RF lamotrigine [Lamictal] 100 mg tablet 100 mg PO DAILY Qty: 30 0RF mirtazapine 45 mg tablet 45 mg PO BEDTIME Qty: 14 1RF trazodone 150 mg tablet 150 mg PO BEDTIME PRN (Reason: insomnia) Qty: 14 1RF quetiapine [Seroquel] 300 mg tablet 300 mg PO BEDTIME Qty: 14 1RF quetiapine [Seroquel] 50 mg tablet 50 mg PO DAILY PRN (Reason: anxiety, agitation) Qty: 14 1RF Continued amlodipine 10 mg tablet 10 mg PO DAILY 30 Days Qty: 30 1RF Protocol: Hold for SBP< HOLD for SBP < : 90 sumatriptan succinate 100 mg Tablet 50 mg PO DAILY MRX1 PRN (Reason: Migraine Headache) 30 Days Qty: 10 1RF prazosin 1 mg capsule 2 mg PO BEDTIME Protocol: Hold for SBP< HOLD for SBP < : 90 hydroxyzine HCl 25 mg tablet 25 mg PO DAILY PRN (Reason: Anxiety) Caplyta 42 mg capsule 1 cap PO DAILY enoxaparin 100 mg/mL syringe 100 mg subcut DAILY 30 Days Qty: 30 0RF Rx Instructions: Use in conjunction with enoxaparin 30mg for a total of 130mg daily enoxaparin 30 mg/0.3 mL syringe 30 mg subcut DAILY 30 Days Qty: 9 0RF Rx Instructions: Use in conjunction with enoxaparin 100mg for a total of 130mg daily multivitamin Tablet 1 tab PO DAILY ondansetron 4 mg Tablet,Disintegrating 4 mg PO Q6H PRN (Reason: Migraine Headache) Discontinued cyanocobalamin (vitamin B-12) [Vitamin B-12] 100 mcg tablet 100 mcg PO DAILY 30 Days Qty: 30 1RF methadone 10 mg/mL Concentrate 110 mg PO DAILY lamotrigine 25 mg Tablet 25 mg PO DAILY 30 Days Qty: 70 0RF quetiapine 300 mg Tablet 300 mg PO BEDTIME 30 Days Qty: 30 1RF lamotrigine [Lamictal] 100 mg tablet 100 mg PO DAILY 30 Days Qty: 30 0RF gabapentin 100 mg Capsule 100 mg PO TID clonidine HCl 0.1 mg tablet 0.1 mg PO TID Protocol: Hold for SBP< HOLD for SBP < : 90 quetiapine 50 mg Tablet 50 mg PO DAILY PRN (Reason: Psychosis) gabapentin 300 mg capsule 300 mg PO TID trazodone 150 mg tablet 150 mg PO BEDTIME mirtazapine [Remeron] 15 mg tablet 45 mg PO BEDTIME Discharge Orders: Discharge Order (Routine); Ordered 01/03/22 Ordered By: Ritu Olson Diet: Advance to usual diet Activity on Discharge: As tolerated Stand Alone Forms: Patient Portal Discharge page, Community Support Care Plan Goals: Mood stabilization Continue to work on Sobriety Health Concerns: Recurrent Major Depression PTSD Opiate Use Disorder Cocaine Use Disorder Plan of Treatment: Attend follow up appointments Take medications as directed Call/Return as needed Crisis Services if Needed [phone] Assessment: Risk assessment at time of discharge:? Patient was interviewed prior to discharge and found to be fully oriented and without any SI or HI. Patient has insight and demonstrates good judgment in terms of wanting to pursue treatment. Patient is not in imminent risk of harm to self or others and has a safety plan that includes presenting to the closest ER or calling 911 if feeling unsafe.? Patient has been observed closely by nursing and unit staff throughout admission; patient has not engaged in any behaviors that suggest dangerousness to self or others and has demonstrated appropriate behaviors and impulse control Discharge Date/Time: 01/03/22 15:01
== END 2022-01-03 15:01 | disposition home or self-care (01) | DRG 885 ==
LOC: HO.ED 12-31 18:38 → HO.PM5 12-31 19:25
PROVIDERS: Clinical Nurse Specialist Psychiatric/Mental Health, Adult; Nurse Practitioner Family; Admitting Provider Registered Nurse; Emergency Provider Emergency Medicine Emergency Medical Services; PCP Nurse Practitioner Family; Visit Provider Registered Nurse
DX: F33.1 Major depressive disorder, recurrent, moderate (principal); R45.851 Suicidal ideations; F11.20 Opioid dependence, uncomplicated; D68.61 Antiphospholipid syndrome; F43.12 Post-traumatic stress disorder, chronic; F17.210 Nicotine dependence, cigarettes, uncomplicated; I12.9 Hypertensive chronic kidney disease with stage 1 through stage 4 chronic kidney disease, or unspecified chronic kidney disease; N18.30 Chronic kidney disease, stage 3 unspecified; D63.1 Anemia in chronic kidney disease; F41.1 Generalized anxiety disorder; M32.9 Systemic lupus erythematosus, unspecified; F14.10 Cocaine abuse, uncomplicated; Z20.822 Contact with and (suspected) exposure to COVID-19; Z71.6 Tobacco abuse counseling; Z86.19 Personal history of other infectious and parasitic diseases; Z86.711 Personal history of pulmonary embolism; Z86.718 Personal history of other venous thrombosis and embolism; Z86.73 Personal history of transient ischemic attack (TIA), and cerebral infarction without residual deficits; Z91.030 Bee allergy status; Z91.041 Radiographic dye allergy status; Z91.013 Allergy to seafood; Z88.2 Allergy status to sulfonamides; Z88.8 Allergy status to other drugs, medicaments and biological substances; Z79.899 Other long term (current) drug therapy
CPT/HCPCS: 36415; 80048; 80053; 80061; 80307; 82550; 82607; 82746; 83036; 83735; 84439; 84443; 85025; 85027; 85610; 85730; 87635; 93005; 99285; J1650

== ENCOUNTER 2022-02-12 10:21 | Inpatient (IN) | payer OTHER, SELFPAY ==
--- NOTE | 2022-02-12 10:46 | ED.PSYCH ---
HPI - Psych General Chief Complaint: Psychiatric Symptoms Stated Complaint: crisis Time Seen by Provider: 02/12/22 10:43 Source: patient and old records reviewed Mode of arrival: ambulatory Limitations: no limitations History of Present Illness HPI Narrative: 41 yo female with hx of CKD, HTN, MRSA bacteremia, substance abuse, DVT with filter, migraines, lupus, pneumonia, substance abuse presents to the ED with c/o feeling depressed and suicidal, not taking most of her medications for 5 days and not going to the methadone clinic for 2 days. She states she just gets in a mood. She has no medical complaints at this time and even notes her legs are not swollen. Reports no drug use in 4 to 5 days MD complaint: suicidal ideation and feels depressed Onset (ago): week(s) (1) Duration: getting worse History of same: Yes Relieving factors: none Exacerbating factors: drug use Context: recent drug abuse and not taking psychiatric medications Associated psychiatric symptoms: depression and suicidal ideation Associated symptoms: denies other symptoms Treatments prior to arrival: none If self harm: admits thoughts of self harm Related Data Home Medications Medication Instructions Recorded Confirmed hydroxyzine HCl 25 mg tablet 25 mg PO DAILY PRN Anxiety 10/16/21 02/12/22 prazosin 1 mg capsule 2 mg PO BEDTIME 10/16/21 02/12/22 lumateperone 42 mg capsule 1 cap PO DAILY 12/19/21 02/12/22 (Caplyta) multivitamin 1 tab PO DAILY 12/31/21 02/12/22 ondansetron 4 mg disintegrating 4 mg PO Q6H PRN Migraine Headache 12/31/21 02/12/22 tablet enoxaparin 150 mg/mL subcutaneous 130 mg subcut DAILY 02/12/22 02/12/22 syringe (Lovenox) methadone 10 mg/mL oral 125 mg PO DAILY 02/12/22 02/12/22 concentrate (Methadose) sumatriptan succinate 100 mg tablet 50 mg PO DAILY MRX1 PRN Migraine 02/12/22 02/12/22 Headache Previous Rx's Medication Instructions Recorded amlodipine 10 mg tablet 10 mg PO DAILY 30 days #30 tabs 12/04/21 clonidine HCl 0.2 mg tablet 0.2 mg PO TID PRN anxiety #21 tabs 01/03/22 gabapentin 600 mg tablet 600 mg PO TID #21 tabs 01/03/22 lamotrigine 100 mg tablet 100 mg PO DAILY #30 tabs 01/03/22 (Lamictal) lamotrigine 25 mg tablet (Lamictal) 25 mg PO DAILY 14 days #30 tabs 01/03/22 mirtazapine 45 mg tablet 45 mg PO BEDTIME #14 tabs 01/03/22 nicotine (polacrilex) 4 mg gum 4 mg buccal Q2H PRN nicotine 01/03/22 cravings #50 ea quetiapine 300 mg tablet (Seroquel) 300 mg PO BEDTIME #14 tabs 01/03/22 quetiapine 50 mg tablet (Seroquel) 50 mg PO DAILY PRN anxiety, 01/03/22 agitation #14 tabs trazodone 150 mg tablet 150 mg PO BEDTIME PRN insomnia #14 01/03/22 tabs Allergies Allergy/AdvReac Type Severity Reaction Status Date / Time bee pollen [BEE STINGS] Allergy Severe Anaphylaxis Verified 12/30/21 19:45 codeine [CODEINE] Allergy Severe ANAPHYLAXIS Verified 12/30/21 19:45 Iodinated Contrast Media Allergy Severe DIFFICULTY Verified 12/30/21 19:45 [IV DYE, IODINE CONTAINING BREATHING CONTRAST ] nut - unspecified [nut] Allergy Intermediate Rash Verified 12/30/21 19:45 shellfish derived Allergy Intermediate Rash Verified 12/30/21 19:45 Sulfa (Sulfonamide Allergy Unknown ANAPHYLAXIS Verified 12/30/21 19:45 Antibiotics) [SULFA (SULFONAMIDE ANTIBIOTICS)] fluoxetine [From Prozac] AdvReac Severe Migraine Verified 12/30/21 19:45 Review of Systems Review of Systems: Constitutional : No Fever, No Chills ENT/Mouth : No Ear Pain, No Nasal Congestion, No sore throat Eyes: No Eye Pain, No Swelling, No Redness Cardiovascular : No Chest Pain, No SOB Respiratory : No Cough, No Sputum, No Dyspnea Gastrointestinal : No Nausea, No Vomiting, No Diarrhea, No Hematochezia, No Melena Genitourinary : No Dysuria, No Urinary Frequency, No Hematuria Musculoskeletal : No Myalgias Skin : No Skin Lesions, No rash Neuro : No Weakness, No Numbness, No Paresthesias, No Dizziness, No Headache Psych : positive Anxiety, positive Depression, positive SI no HI Heme/Lymph: No Lymphadenopathy Endocrine : No Polyuria, No Polydipsia All other systems reviewed and are negative [facility] Past Medical History Attestation statement: The following information was validated with the patient. Source: old records reviewed Medical History Acute renal failure superimposed on chronic kidney disease Antiphospholipid antibody syndrome Bipolar disorder Candidemia Cellulitis CKD (chronic kidney disease) Cocaine abuse Cocaine use disorder DVT (deep venous thrombosis) Sander filter in place Lupus MDD (major depressive disorder), recurrent episode, moderate Opiate abuse, continuous Opioid use disorder, severe, dependence Opioid use disorder, severe, dependence Pneumonia PTSD (post-traumatic stress disorder) Pulmonary emboli Seizures Substance abuse Surgical History History of appendectomy Hx of splenectomy Social History Social History Household Members: Family Housing: Other Housing Other:: lIVING IN A Program House Do you presently have visiting nurse or other home services: No Alcohol intake: never Patient Tobacco Use Status: Current everyday Tobacco user Tobacco use type: Cigarette Cigarette Packs Per Day: 1 Cigarettes Per Day: 20.0 Years Smoked: 24 e-Cigarette/Vaping Use: Never Used Second Hand Smoke Exposure: Yes Substance Use Type: Crack/Cocaine and Heroin Advance Directives: Yes Advance Directives on File: Yes Advance Directives Date on File: 02/14/21 service: No Current occupational status: employed and student Sexual orientation: Did not discuss Cognitive needs: No Hearing needs: No Vision needs: No Physical Exam Vital Signs: Vital Signs: Last Vital Signs Temp 98.3 F 02/12/22 11:58 Pulse 60 02/12/22 12:27 Resp 16 02/12/22 12:27 BP 169/104 H 02/12/22 12:27 Pulse Ox 97 02/12/22 12:27 O2 Del Method 02/12/22 12:27 BMI result Body Mass Index 22.8 Appearance: Alert. Oriented X3. No acute distress. Tearful, eating a sandwhich Eyes: Pupils equal, round and reactive to light. slightly dilated 4mm ENT: Pharynx normal. Neck: Normal inspection. Neck supple. CVS: Normal heart rate and rhythm. Pulses normal. Respiratory: No respiratory distress. Breath sounds normal. Abdomen: Soft and nontender. Skin: Skin warm and dry. Normal skin color. Normal skin turgor. Extremities: No lower extremity edema. No calf ttp Neuro: Oriented X 3. No motor deficit. No sensory deficit. CN 2-12 intact Course Course Course Narrative: BP has trended down after medications Cr slightly elevated but her trend is somewhat all over the place from 2.6 to 1.7 1 L of IVF ordered, will repeat BMP tonight around 6pm hx of same in past refusing fluids attempting oral hydration will repeat BMP at 9pm Physician observation started at 214pm Patient placed in physician observation because the patient needed more time for repeat BMP after oral hydration and N to assess the need for psych admission. At the time observation was started the patient's vitals were stable, patient is alert and oriented, Neuro: nonfocal, CV RRR, Lungs clear MDM - Psych MDM Narrative Medical decision making narrative: 41 yo female with hx of CKD, HTN, MRSA bacteremia, substance abuse, DVT with filter, migraines, lupus, pneumonia, substance abuse presents off of her medications along with SI and depression. Will need full lab and EKG workup. She offers no medical complaints at this time. PO HTN medications ordered on arrival. Med recc requested. Will medically clear then refer to N. Lab Data Result diagrams: 02/12/22 12:22 02/12/22 12:22 Labs: Lab Results 02/12/22 02/12/22 02/12/22 Range/Units 11:17 12:22 12:22 WBC 9.2 (4.8-10.8) X10*3/uL RBC 4.40 (4.20-5.50) X10*6/uL Hgb 13.7 (12.0-16.0) g/dl Hct 41.8 (37.0-47.0) % MCV 95.0 (80.0-98.0) fL MCH 31.1 (27.0-33.0) pg MCHC 32.8 (31.0-35.0) g/dl RDW 13.8 (11.0-16.0) % Plt Count 288 (160-400) X10*3/uL MPV 12.2 (9.4-12.3) fL Immature Gran % (Auto) 0.3 (0.0-0.4) % Neut % (Auto) 75.7 H (45-73) % Lymph % (Auto) 11.9 L (20-40) % [place] % (Auto) 11.0 (2-11) % Eos % (Auto) 0.6 (0-4) % Baso % (Auto) 0.5 (0-2) % Lymph # (Auto) 1.1 L (1.2-4.9) X10*3/uL [place] # (Auto) 1.0 (0.1-1.2) X10*3/uL Eos # (Auto) 0.1 (0.0-0.4) X10*3/uL Baso # (Auto) 0.1 (0.0-0.2) X10*3/uL Abs Immat Gran (auto) 0.03 (0.00-0.03) X10*3/uL Absolute Neuts (auto) 7.0 (2.0-8.3) x10*3/uL Absolute Nucleated RBC 0.000 (0.0-0.012) X10*3/uL Nucleated RBC % (auto) 0.0 (0.0-0.2) /100WBC Sodium 135 (135-145) mmol/L Potassium 4.4 (3.3-5.1) mmol/L Chloride 102 (96-108) mmol/L Carbon Dioxide 21 L (22-29) mmol/L Anion Gap 16 (12-20) BUN 28 H (9-16) mg/dL Creatinine 2.61 H (0.5-1.4) mg/dL Estim Creat Clear Calc 28.3 Estimated GFR 20 Random Glucose 129 H (60-115) mg/dL Calcium 9.6 (8.4-10.2) mg/dL Magnesium 2.0 (1.6-2.6) mg/dL Total Bilirubin 0.7 (0.0-1.0) mg/dL Direct Bilirubin 0.3 (0.0-0.5) mg/dL AST 23 (5-31) U/L ALT 29 (0-31) U/L Alkaline Phosphatase 110 (39-117) U/L Total Protein 7.4 (6.5-8.0) g/dL Albumin 4.1 (3.5-5.0) g/dL Ethyl Alcohol mg/dL COVID-19 ([facility]) Negative (Negative) COVID-19 Clin Com See Note 02/12/22 Range/Units 12:22 WBC (4.8-10.8) X10*3/uL RBC (4.20-5.50) X10*6/uL Hgb (12.0-16.0) g/dl Hct (37.0-47.0) % MCV (80.0-98.0) fL MCH (27.0-33.0) pg MCHC (31.0-35.0) g/dl RDW (11.0-16.0) % Plt Count (160-400) X10*3/uL MPV (9.4-12.3) fL Immature Gran % (Auto) (0.0-0.4) % Neut % (Auto) (45-73) % Lymph % (Auto) (20-40) % [place] % (Auto) (2-11) % Eos % (Auto) (0-4) % Baso % (Auto) (0-2) % Lymph # (Auto) (1.2-4.9) X10*3/uL [place] # (Auto) (0.1-1.2) X10*3/uL Eos # (Auto) (0.0-0.4) X10*3/uL Baso # (Auto) (0.0-0.2) X10*3/uL Abs Immat Gran (auto) (0.00-0.03) X10*3/uL Absolute Neuts (auto) (2.0-8.3) x10*3/uL Absolute Nucleated RBC (0.0-0.012) X10*3/uL Nucleated RBC % (auto) (0.0-0.2) /100WBC Sodium (135-145) mmol/L Potassium (3.3-5.1) mmol/L Chloride (96-108) mmol/L Carbon Dioxide (22-29) mmol/L Anion Gap (12-20) BUN (9-16) mg/dL Creatinine (0.5-1.4) mg/dL Estim Creat Clear Calc Estimated GFR Random Glucose (60-115) mg/dL Calcium (8.4-10.2) mg/dL Magnesium (1.6-2.6) mg/dL Total Bilirubin (0.0-1.0) mg/dL Direct Bilirubin (0.0-0.5) mg/dL AST (5-31) U/L ALT (0-31) U/L Alkaline Phosphatase (39-117) U/L Total Protein (6.5-8.0) g/dL Albumin (3.5-5.0) g/dL Ethyl Alcohol < 10 mg/dL COVID-19 ([facility]) (Negative) COVID-19 Clin Com ECG Data Attestation: I personally reviewed and interpreted this ECG as follows: ECG interpretation date: 02/12/22 ECG interpretation time: 11:41 Interpretation: Rate: 50 Rhythm: sinus bradycardia [place]: normal Normal P waves. Normal SHARON. Normal QRS complex. ST T wave : no CHRISTA , inverted V1-V2 ( V1 inversion is old) qTC: normal prior studies: no sig ischemia noted The study has been interpreted contemporaneously by me. . Discharge Plan Discharge Clinical Impression: Depression Qualifiers: Depression Type: unspecified Qualified Code(s): F32.A - Depression, unspecified Patient Disposition: Still a Patient Prescriptions: No Action amlodipine 10 mg tablet 10 mg PO DAILY 30 Days Qty: 30 1RF Protocol: Hold for SBP< HOLD for SBP < : 90 prazosin 1 mg capsule 2 mg PO BEDTIME Protocol: Hold for SBP< HOLD for SBP < : 90 hydroxyzine HCl 25 mg tablet 25 mg PO DAILY PRN (Reason: Anxiety) Caplyta 42 mg capsule 1 cap PO DAILY multivitamin Tablet 1 tab PO DAILY ondansetron 4 mg Tablet,Disintegrating 4 mg PO Q6H PRN (Reason: Migraine Headache) clonidine HCl 0.2 mg tablet 0.2 mg PO TID PRN (Reason: anxiety) Qty: 21 4RF gabapentin 600 mg tablet 600 mg PO TID Qty: 21 4RF nicotine (polacrilex) 4 mg gum 4 mg buccal Q2H PRN (Reason: nicotine cravings) Qty: 50 0RF lamotrigine [Lamictal] 25 mg tablet 25 mg PO DAILY 14 Days Qty: 30 0RF lamotrigine [Lamictal] 100 mg tablet 100 mg PO DAILY Qty: 30 0RF mirtazapine 45 mg tablet 45 mg PO BEDTIME Qty: 14 1RF trazodone 150 mg tablet 150 mg PO BEDTIME PRN (Reason: insomnia) Qty: 14 1RF quetiapine [Seroquel] 300 mg tablet 300 mg PO BEDTIME Qty: 14 1RF quetiapine [Seroquel] 50 mg tablet 50 mg PO DAILY PRN (Reason: anxiety, agitation) Qty: 14 1RF methadone [Methadose] 10 mg/mL concentrate 125 mg PO DAILY Rx Instructions: Partial Fill upon patient request. sumatriptan succinate 100 mg tablet 50 mg PO DAILY MRX1 PRN (Reason: Migraine Headache) enoxaparin [Lovenox] 150 mg/mL Syringe 130 mg SUBCUT DAILY
--- NOTE | 2022-02-12 10:56 | ECG_ITS ---
Test Reason : HTN Blood Pressure : / mmHG Vent. Rate : 050 BPM Atrial Rate : 050 BPM P-R Int : 162 ms QRS Dur : 080 ms QT Int : 458 ms P-R-T Axes : 055 020 033 degrees QTc Int : 417 ms Sinus bradycardia Possible Left atrial enlargement Borderline ECG When compared with ECG of 31-DEC-2021 13:56, Heart rate has decreased Referred By: Jazzy Gunn Electronically Signed By:EDUARDO SHEPPARD
[2022-02-12] MEDS: cloNIDine HCL 0.2 MG TABLET PO (11:12)
[2022-02-12] MEDS: amLODIPine Besylate 10 MG TABLET PO (11:12)
[2022-02-12 11:39] LABS: COVID-19 Test Negative (Negative)
[2022-02-12 11:58] VITALS: BP 202/130; PULSE 80; RESP 16; TEMP 36.8; O2SAT 98; BMI 22.8
[2022-02-12 12:27] VITALS: BP 169/104; PULSE 60; RESP 16; O2SAT 97
[2022-02-12 12:34] LABS: MANUAL DIFF FLAG NO
[2022-02-12 12:46] LABS: Basophils Absolute Auto 0.1 X10*3/uL (0.0-0.2); Basophils Percent Auto 0.5 % (0-2); Eosinophils Absolute Auto 0.1 X10*3/uL (0.0-0.4); Eosinophils Percent Auto 0.6 % (0-4); Hematocrit 41.8 % (37.0-47.0); Hemoglobin 13.7 g/dl (12.0-16.0); Imm Gran Abs Auto 0.03 X10*3/uL (0.00-0.03); Imm Gran Pct Auto 0.3 % (0.0-0.4); Lymphocytes Absolute Auto 1.1 X10*3/uL (1.2-4.9); Lymphocytes Percent Auto 11.9 % (20-40); Mean Corpuscular HGB Conc 32.8 g/dl (31.0-35.0); Mean Corpuscular Hemoglobin 31.1 pg (27.0-33.0); Mean Platelet Volume 12.2 fL (9.4-12.3); Neutrophils Percent Auto 75.7 % (45-73); Platelet Count 288 X10*3/uL (160-400); Red Cell Distribution Width 13.8 % (11.0-16.0); White Blood Count 9.2 X10*3/uL (4.8-10.8)
[2022-02-12 12:58] LABS: Ethanol < 10 mg/dL
[2022-02-12 12:59] LABS: Alanine Aminotransferase 29 U/L (0-31); Albumin Level 4.1 g/dL (3.5-5.0); Alkaline Phosphatase 110 U/L (39-117); Anion Gap 16 (12-20); Aspartate Amino Transferase 23 U/L (5-31); Bilirubin Direct 0.3 mg/dL (0.0-0.5); Bilirubin Total 0.7 mg/dL (0.0-1.0); Blood Urea Nitrogen 28 mg/dL (9-16); Calcium 9.6 mg/dL (8.4-10.2); Carbon Dioxide 21 mmol/L (22-29); Chloride 102 mmol/L (96-108); Creatinine Clr Calc Pharmacy 28.3; Estimated Glomerular Filt Rate 20; Glucose Random 129 mg/dL (60-115); Potassium 4.4 mmol/L (3.3-5.1); Sodium 135 mmol/L (135-145); Total Protein 7.4 g/dL (6.5-8.0)
--- NOTE | 2022-02-12 13:16 | PHA.MEDREC ---
Pharmacy Consult ? Medication Reconciliation Pharmacy has completed the medication reconciliation.
[2022-02-12] MEDS: methADONE HCl 20 MG/2 ML ORAL.CONC 125 MG PO (13:38)
--- NOTE | 2022-02-12 14:13 | PC.NURSE ---
Fluid bolus ordered for pt for elevated creatinine. Pt refused IV, stating she did not want to get poked again. HARPREET Garcia notified of pts refusal. Will have pt drink plenty of fluids. Pt agreeable to drinking fluids.
[2022-02-12 15:22] VITALS: BMI 26.2
[2022-02-12] MEDS: Acetaminophen 325 MG TABLET 650 MG PO (15:58)
[2022-02-12] MEDS: lamoTRIgine 100 MG TABLET PO (15:58)
[2022-02-12] MEDS: Multivitamin TABLET 1 TAB PO (15:58)
[2022-02-12] MEDS: QUEtiapine Fumarate 50 MG TABLET PO (16:02)
--- NOTE | 2022-02-12 17:03 | MHC.RECOVSUP ---
? Reason for consult Recovery support o Current location: [facility] o Identified substance use concern: Cocaine - Seeking ATS (detox) - Support ? Intervention: o Community resources provided o Harm reduction discussion ? Plan: o Follow up tomorrow o Patient awaiting crisis evaluation o Patient to follow up with [facility] after discharge ? Additional information: Met with Patient and we talk about recovery.. Patient stated that they would really want to go to the [facility] in [place]
--- NOTE | 2022-02-12 17:09 | MHC.RECOVSUP ---
? Reason for consult recovery support o Current location: [facility] o Identified substance use concern: Cocaine - Support ? Intervention: o ATS bed search started/completed/in process o Harm reduction discussion ? Plan: o Follow up tomorrow o Patient awaiting crisis evaluation o Patient to follow up with [facility] after discharge ? Additional information: Met with patient and we talk about recovery and harm reduction.. Patient stated that they would really like to go to [facility] and then a terminal manager program atlases 3 - 6 months..
[2022-02-12] MEDS: Enoxaparin Sodium 120 MG/0.8 ML SYRINGE SUBCUT (18:50)
[2022-02-12] MEDS: Mirtazapine 15 MG TABLET 45 MG PO (20:08)
[2022-02-12] MEDS: Gabapentin 600 MG TABLET PO (20:09)
[2022-02-12] MEDS: Prazosin HCL 1 MG CAPSULE 2 MG PO (20:09)
[2022-02-12 20:19] VITALS: BP 112/74; PULSE 49; RESP 16; TEMP 36.6; O2SAT 96
[2022-02-12] MEDS: QUEtiapine Fumarate 300 MG TABLET PO (20:33)
[2022-02-13 06:39] VITALS: BP 150/99; PULSE 80; RESP 16; TEMP 37.7; O2SAT 95
--- NOTE | 2022-02-13 06:53 | PC.NURSE ---
Patient slept through the night, no distress observed/reported, compliant with medication, urine sample just send down to lab/pending result, blood draw attempted but unsuccessful, morning RN made aware, behavior appropriate non concerning, disposition per care team is inpatient bed search, per care team patient is pre-accepted, will continue to monitor.
[2022-02-13 06:59] LABS: Appearance Urine Clear; Color Urine Yellow; Glucose Urine UA Negative (Negative); Leukocyte Esterase Urine Moderate (2+) (Negative); Nitrite Urine Negative (Negative); PH 5.5 (5.0-9.0); UMIC TRIGGER UA YES; Urine Blood Moderate (2+) (Negative); Urine Ketones Negative (Negative); Urine Protein 30 (1+) mg/dL (Neg-Trace)
[2022-02-13 07:00] LABS: UPreg QC Valid YES; Urine Pregnancy NEGATIVE (NEGATIVE)
[2022-02-13 07:10] LABS: Bacteria Urine 1+ (None Seen); Hyaline Casts Urine 0-2 /LPF (0-2); Squamous Epithelial Cell Urine 0-2 /HPF (0-2)
[2022-02-13 07:13] LABS: Amphetamine Screen Urine Not Detected (Not Detect); Barbiturates, Urine Not Detected (Not Detect); Benzodiazepines Screen Urine Not Detected (Not Detect); Cannabinoid Screen Urine Not Detected (Not Detect); Cocaine Screen Urine POSITIVE (Not Detect); Fentanyl, urine POSITIVE (Not Detect); Opiate Screen Urine POSITIVE (Not Detect); Phencyclidine Screen Urine Not Detected (Not Detect)
--- NOTE | 2022-02-13 07:17 | PC.NURSE ---
patient appears to remain asleep at present respirations are even and unlabored patient appears in no distress
[2022-02-13] MEDS: Multivitamin TABLET 1 TAB PO (08:00)
[2022-02-13] MEDS: Gabapentin 600 MG TABLET PO ×3 (08:00→20:27)
[2022-02-13] MEDS: lamoTRIgine 25 MG TABLET PO (08:00)
[2022-02-13] MEDS: methADONE HCl 20 MG/2 ML ORAL.CONC 125 MG PO (08:00)
[2022-02-13] MEDS: lamoTRIgine 100 MG TABLET PO (08:00)
[2022-02-13] MEDS: amLODIPine Besylate 10 MG TABLET PO (08:00)
[2022-02-13] MEDS: cloNIDine HCL 0.2 MG TABLET PO (09:09)
[2022-02-13 09:23] LABS: Hematocrit 39.9 % (37.0-47.0); Hemoglobin 13.2 g/dl (12.0-16.0); Mean Corpuscular HGB Conc 33.1 g/dl (31.0-35.0); Mean Corpuscular Hemoglobin 31.8 pg (27.0-33.0); Mean Corpuscular Volume 96.1 fL (80.0-98.0); Mean Platelet Volume 12.2 fL (9.4-12.3); Platelet Count 277 X10*3/uL (160-400); Red Blood Count 4.15 X10*6/uL (4.20-5.50); Red Cell Distribution Width 14.1 % (11.0-16.0); White Blood Count 9.9 X10*3/uL (4.8-10.8)
[2022-02-13 09:29] LABS: Prothrombin Time 11.7 SEC (10.0-13.1)
[2022-02-13 09:34] LABS: Anion Gap 15 (12-20); Blood Urea Nitrogen 27 mg/dL (9-16); Calcium 9.3 mg/dL (8.4-10.2); Carbon Dioxide 23 mmol/L (22-29); Chloride 108 mmol/L (96-108); Creatinine Clr Calc Pharmacy 34.3; Estimated Glomerular Filt Rate 23; Glucose Random 97 mg/dL (60-115); Potassium 4.2 mmol/L (3.3-5.1); Sodium 142 mmol/L (135-145)
[2022-02-13 09:38] LABS: Partial Thromboplastin Time 73.2 SEC (26.0-36.4)
[2022-02-13 13:38] LABS: COVID-19 Test Negative (Negative)
[2022-02-13 18:00] VITALS: BP 121/73; PULSE 108; TEMP 36.8; O2SAT 96
[2022-02-13] MEDS: QUEtiapine Fumarate 50 MG TABLET PO (18:28)
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
--- NOTE | 2022-02-13 19:26 | PC.ADMIT ---
pt is a 43 year old female who came to [facility] ED with SI with intent to overdose on pills. pt has a positive tox screen for cocaine, alcohol and cocaine. pt has a past medical history of opioid use disorder, trauma disorder, and depressive disorder. during admission, pt appeared to be tired and didn't really want to talk. pt reports no AH/HI/SI/VH at this time.
[2022-02-13] MEDS: Prazosin HCL 1 MG CAPSULE 2 MG PO (20:26)
[2022-02-13] MEDS: QUEtiapine Fumarate 300 MG TABLET PO (20:26)
[2022-02-13] MEDS: Mirtazapine 15 MG TABLET 45 MG PO (20:27)
[2022-02-14 06:00] VITALS: BP 172/103; PULSE 69; RESP 18; TEMP 36.4; O2SAT 99
[2022-02-14] MEDS: methADONE HCl 20 MG/2 ML ORAL.CONC 125 MG PO (08:25)
[2022-02-14] MEDS: amLODIPine Besylate 10 MG TABLET PO (08:25)
[2022-02-14] MEDS: Gabapentin 600 MG TABLET PO ×3 (08:26→19:40)
[2022-02-14] MEDS: Multivitamin TABLET 1 TAB PO (08:26)
[2022-02-14] MEDS: lamoTRIgine 25 MG TABLET PO (08:26)
[2022-02-14] MEDS: cloNIDine HCL 0.2 MG TABLET PO ×3 (08:26→19:40)
[2022-02-14] MEDS: lamoTRIgine 100 MG TABLET PO (08:26)
[2022-02-14] MEDS: Nicotine Polacrilex 2 MG GUM 4 MG BUCCAL (09:06)
[2022-02-14 09:24] LABS: Estimated Average Glucose 94 mg/dL; Hemoglobin A1C 109.5893 umol/L; Hemoglobin A1c % 4.9 %
[2022-02-14 09:40] LABS: Cholesterol 277 mg/dL; HDL Cholesterol 56 mg/dL; LDL Cholesterol Calculated 154 mg/dl; Magnesium 1.9 mg/dL (1.6-2.6); Triglycerides 339 mg/dL
[2022-02-14 10:06] LABS: Thyroid Stimulating Hormone 0.58 uIU/mL (0.32-4.0)
[2022-02-14 10:22] LABS: Folate 12.1 ng/mL (> or = 4.0); Vitamin B12 454 pg/mL (200-900)
[2022-02-14] MEDS: QUEtiapine Fumarate 50 MG TABLET PO (11:07)
[2022-02-14] MEDS: hydrOXYzine HCL 25 MG TABLET PO ×2 (11:07)
[2022-02-14 16:04] VITALS: BP 136/92; PULSE 61; RESP 16; TEMP 36.7; O2SAT 98
--- NOTE | 2022-02-14 17:10 | HO.PSYCHPN ---
Subjective Subjective Date of Service: 02/14/22 Reason For Visit: Depression, SI Interim History: Discussed with team. Pt says her anxiety is through the roof, she hasnt left her room all day. T/W brought in caplyta from pharmacy, as this is not on formulary. Says she is still in some withdrawal, sometimes really sweaty, hot/ cold, methadone dose is okay, does not want adjustments. Says she is sleeping a lot and feels rested, attributes hypersomnia to feeling depressed and anxious. Asks for an increase in her PRN anxiety meds. SW working on referral to [facility]. Medication Compliance: Yes Side effects from medications: No Attending Groups: No Review of Systems Acute medical concerns: No Medical Review of Systems: unchanged Mental Status Exam Mental Status Exam Narrative: In hospital attire, overweight, unkempt. Poor eye contact, inattentive. No Tics or Tremors. No abnormal involuntary movements. Irritable but able to cooperate with brief interview. Non-pressured speech, spontaneous with regular rate and rhythm, normal volume and prosody. No prolonged speech latency or dysarthria. Mood is ?depressed,? affect is dysphoric. Denies SI/SIB/HI upon inquiry. Denies A/VH or delusional thought content. Thoughts are goal oriented, linear. No known cognitive or memory impairment. Insight/ Judgment fair and adequate. Diagnostics Vital Signs (24Hr): Vital Signs - 24 hr 02/13/22 18:00 02/14/22 06:00 02/14/22 16:04 Temperature 98.2 F 97.6 F 98.0 F Pulse Rate 108 H 69 61 Respiratory Rate 18 16 Blood Pressure 121/73 172/103 H 136/92 H Pulse Oximetry 96 99 98 Oxygen Delivery Method Room Air Room Air BMI result Body Mass Index 26.2 Labs Results: 02/13/22 09:02 02/13/22 09:03 Labs: Laboratory Results - last 48 hr 02/13/22 02/13/22 02/13/22 06:51 06:51 06:51 WBC RBC Hgb Hct MCV MCH MCHC RDW Plt Count MPV Absolute Nucleated RBC Nucleated RBC % (auto) PT INR APTT Sodium Potassium Chloride Carbon Dioxide Anion Gap BUN Creatinine Estim Creat Clear Calc Estimated GFR Random Glucose Estimat Average Glucose Hemoglobin A1c % Calcium Magnesium Triglycerides Cholesterol LDL Cholesterol, Calc HDL Cholesterol Vitamin B12 Folate TSH Free T4 Urine Color Yellow Urine Appearance Clear Urine pH 5.5 Ur Specific [place] 1.010 Urine Protein 30 (1+) H Urine Glucose (UA) Negative Urine Ketones Negative Urine Blood Moderate (2+) H Urine Nitrite Negative Ur Leukocyte Esterase Moderate (2+) H Urine RBC 3-5 H Urine WBC 11-20 H Ur Squamous Epith Cells 0-2 Urine Bacteria 1+ Hyaline Casts 0-2 Urine Test NEGATIVE Urine Opiates Screen POSITIVE H Urine Fentanyl Screen POSITIVE H Ur Barbiturates Screen Not Detected Ur Phencyclidine Scrn Not Detected Ur Amphetamines Screen Not Detected U Benzodiazepines Scrn Not Detected Urine Cocaine Screen POSITIVE H U Marijuana (THC) Screen Not Detected COVID-19 ([facility]) COVID-19 WebNotes Com 02/13/22 02/13/22 02/13/22 09:02 09:02 09:03 WBC 9.9 RBC 4.15 L Hgb 13.2 Hct 39.9 MCV 96.1 MCH 31.8 MCHC 33.1 RDW 14.1 Plt Count 277 MPV 12.2 Absolute Nucleated RBC 0.000 Nucleated RBC % (auto) 0.0 PT 11.7 INR 1.0 APTT 73.2 H* D Sodium 142 Potassium 4.2 Chloride 108 Carbon Dioxide 23 Anion Gap 15 BUN 27 H Creatinine 2.34 H Estim Creat Clear Calc 34.3 Estimated GFR 23 Random Glucose 97 Estimat Average Glucose Hemoglobin A1c % Calcium 9.3 Magnesium Triglycerides Cholesterol LDL Cholesterol, Calc HDL Cholesterol Vitamin B12 Folate TSH Free T4 Urine Color Urine Appearance Urine pH Ur Specific [place] Urine Protein Urine Glucose (UA) Urine Ketones Urine Blood Urine Nitrite Ur Leukocyte Esterase Urine RBC Urine WBC Ur Squamous Epith Cells Urine Bacteria Hyaline Casts Urine Test Urine Opiates Screen Urine Fentanyl Screen Ur Barbiturates Screen Ur Phencyclidine Scrn Ur Amphetamines Screen U Benzodiazepines Scrn Urine Cocaine Screen U Marijuana (THC) Screen COVID-19 ([facility]) COVID-19 [employer]Notes Com 02/13/22 02/14/22 02/14/22 13:16 08:11 08:11 WBC RBC Hgb Hct MCV MCH MCHC RDW Plt Count MPV Absolute Nucleated RBC Nucleated RBC % (auto) PT INR APTT Sodium Potassium Chloride Carbon Dioxide Anion Gap BUN Creatinine Estim Creat Clear Calc Estimated GFR Random Glucose Estimat Average Glucose 94 Hemoglobin A1c % 4.9 Calcium Magnesium 1.9 Triglycerides 339 Cholesterol 277 LDL Cholesterol, Calc 154 HDL Cholesterol 56 Vitamin B12 Folate TSH 0.58 Free T4 0.90 Urine Color Urine Appearance Urine pH Ur Specific [place] Urine Protein Urine Glucose (UA) Urine Ketones Urine Blood Urine Nitrite Ur Leukocyte Esterase Urine RBC Urine WBC Ur Squamous Epith Cells Urine Bacteria Hyaline Casts Urine Test Urine Opiates Screen Urine Fentanyl Screen Ur Barbiturates Screen Ur Phencyclidine Scrn Ur Amphetamines Screen U Benzodiazepines Scrn Urine Cocaine Screen U Marijuana (THC) Screen COVID-19 ([facility]) Negative COVID-19 Clin Com See Note 02/14/22 08:11 WBC RBC Hgb Hct MCV MCH MCHC RDW Plt Count MPV Absolute Nucleated RBC Nucleated RBC % (auto) PT INR APTT Sodium Potassium Chloride Carbon Dioxide Anion Gap BUN Creatinine Estim Creat Clear Calc Estimated GFR Random Glucose Estimat Average Glucose Hemoglobin A1c % Calcium Magnesium Triglycerides Cholesterol LDL Cholesterol, Calc HDL Cholesterol Vitamin B12 454 Folate 12.1 TSH Free T4 Urine Color Urine Appearance Urine pH Ur Specific [place] Urine Protein Urine Glucose (UA) Urine Ketones Urine Blood Urine Nitrite Ur Leukocyte Esterase Urine RBC Urine WBC Ur Squamous Epith Cells Urine Bacteria Hyaline Casts Urine Test Urine Opiates Screen Urine Fentanyl Screen Ur Barbiturates Screen Ur Phencyclidine Scrn Ur Amphetamines Screen U Benzodiazepines Scrn Urine Cocaine Screen U Marijuana (THC) Screen COVID-19 ([facility]) COVID-19 Clin Com Medications Medications Current Medications Acetaminophen (Acetaminophen 325 Mg Tablet) 650 mg PO Q6H PRN PRN Reason: Headache/Pain Mild Scale (1-3) Al Hydroxide/Mg Hydroxide (Magnesium Hydrox/Alum Hydrox 30 Ml Oral.Susp) 30 ml PO Q6H PRN PRN Reason: Heartburn/Nausea Amlodipine Besylate (Amlodipine Besylate 10 Mg Tablet) 10 mg PO DAILY [facility]; Protocol Last Admin: 02/14/22 08:25 Dose: 10 mg Cefuroxime Axetil (Cefuroxime Axetil 250 Mg Tablet) 250 mg PO BID [facility] Stop: 02/20/22 08:59 Last Admin: 02/14/22 08:25 Dose: 250 mg Clonidine HCl (Clonidine Hcl 0.2 Mg Tablet) 0.2 mg PO TID [facility]; Protocol Last Admin: 02/14/22 16:11 Dose: 0.2 mg Enoxaparin Sodium (Enoxaparin Sodium 120 Mg/0.8 Ml Syringe) 120 mg SUBCUT Q24H [facility] Last Admin: 02/13/22 20:04 Dose: Not Given Fluconazole (Fluconazole 50 Mg Tablet) 50 mg PO DAILY [facility] Last Admin: 02/14/22 10:23 Dose: 50 mg Gabapentin (Gabapentin 600 Mg Tablet) 600 mg PO TID [facility] Last Admin: 02/14/22 16:11 Dose: 600 mg Hydroxyzine HCl (Hydroxyzine Hcl 25 Mg Tablet) 25 mg PO DAILY PRN PRN Reason: Anxiety Last Admin: 02/14/22 11:07 Dose: 25 mg Hydroxyzine HCl (Hydroxyzine Hcl 25 Mg Tablet) 25 mg PO Q6H PRN PRN Reason: Anxiety Last Admin: 02/14/22 11:07 Dose: 25 mg Lamotrigine (Lamotrigine 25 Mg Tablet) 25 mg PO DAILY [facility] Last Admin: 02/14/22 08:26 Dose: 25 mg Lamotrigine (Lamotrigine 100 Mg Tablet) 100 mg PO DAILY [facility] Last Admin: 02/14/22 08:26 Dose: 100 mg Magnesium Hydroxide (Milk Of Magnesia 30 Ml Oral.Susp) 30 ml PO DAILY PRN PRN Reason: Constipation Methadone HCl (Methadone Hcl 20 Mg/2 Ml Oral.Conc) 125 mg PO DAILY [facility] Last Admin: 02/14/22 08:25 Dose: 125 mg Mirtazapine (Mirtazapine 15 Mg Tablet) 45 mg PO BEDTIME [facility] Last Admin: 02/13/22 20:27 Dose: 45 mg Multivitamins/Vitamin C (Multivitamin Tablet) 1 tab PO DAILY [facility] Last Admin: 02/14/22 08:26 Dose: 1 tab Nicotine Polacrilex (Nicotine Polacrilex 2 Mg Gum) 4 mg BUCCAL Q2H PRN PRN Reason: nicotine cravings Last Admin: 02/14/22 09:06 Dose: 4 mg Non-Formulary Medication (Lumateperone [Caplyta]) 1 cap PO DAILY [facility] Ondansetron HCl (Ondansetron Odt 4 Mg Tab.Rapdis) 4 mg TRANSLINGU Q6H PRN PRN Reason: Migraine Headache Prazosin HCl (Prazosin Hcl 1 Mg Capsule) 2 mg PO BEDTIME [facility]; Protocol Last Admin: 02/13/22 20:26 Dose: 2 mg Quetiapine Fumarate (Quetiapine Fumarate 50 Mg Tablet) 50 mg PO DAILY PRN PRN Reason: anxiety, agitation Last Admin: 02/14/22 11:07 Dose: 50 mg Quetiapine Fumarate (Quetiapine Fumarate 300 Mg Tablet) 300 mg PO BEDTIME [facility] Last Admin: 02/13/22 20:26 Dose: 300 mg Sumatriptan Succinate (Sumatriptan Succinate 50 Mg Tablet) 50 mg PO DAILY MRX1 PRN PRN Reason: Migraine Headache Trazodone HCl (Trazodone Hcl 50 Mg Tablet) 150 mg PO BEDTIME [facility] Last Admin: 02/13/22 21:16 Dose: Not Given Allergies Allergies Allergy/AdvReac Type Severity Reaction Status Date / Time bee pollen [BEE STINGS] Allergy Severe Anaphylaxis Verified 12/30/21 19:45 codeine [CODEINE] Allergy Severe ANAPHYLAXIS Verified 12/30/21 19:45 Iodinated Contrast Media Allergy Severe DIFFICULTY Verified 12/30/21 19:45 [IV DYE, IODINE CONTAINING BREATHING CONTRAST ] Sulfa (Sulfonamide Allergy Severe ANAPHYLAXIS Verified 02/14/22 10:46 Antibiotics) [SULFA (SULFONAMIDE ANTIBIOTICS)] nut - unspecified [nut] Allergy Intermediate Rash Verified 12/30/21 19:45 shellfish derived Allergy Intermediate Rash Verified 12/30/21 19:45 fluoxetine [From Prozac] AdvReac Severe Migraine Verified 12/30/21 19:45 Fish Containing Products AdvReac Stomach Verified 02/13/22 08:43 Upset Assessment & Plan Assessment & Plan (1) HERSON (generalized anxiety disorder): Status: Acute Code(s): F41.1 - Generalized anxiety disorder (2) MDD (major depressive disorder), recurrent episode, moderate: Status: Acute Code(s): F33.1 - Major depressive disorder, recurrent, moderate (3) Opioid use disorder: Status: Acute Code(s): F11.90 - Opioid use, unspecified, uncomplicated (4) Cocaine use disorder: Status: Acute Code(s): F14.10 - Cocaine abuse, uncomplicated Plan Melita is a 41-year-old Female who carries a dx of polysubstance abuse, MDD recurrent, and HERSON. Denies alcohol abuse. 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 She presented to [facility] ED on 02/12/2022 c/o feeling depressed and suicidal, not taking most of her meds for 5 days and not going to the methadone clinic for 2 days. Reports no drug use in 4 to 5 days. Upon ED workup, pt found to have UTI, ceftin started. Utox positive for cocaine, fentanyl, and opiates. Of note, recent medical admission for acute kidney injury superimposed on CKD 11/2021. Has chronically elevated Creatinine, prev 1.7, however range goes up to 2.6. Plan: 02/13: re-start home meds, pt says she has been adherent with some of her meds including lamictal. Seen by addiction team, re-started on methadone.? 02/14: restart caplyta, increase seroquel to 50 mg TID PRN and vistaril to 75 mg TID PRN, may repeat EKG Q15 min safety checks, CV Monitor response to medications. Monitor for safety in the milieu. Discharge on stabilization. Patient seen. Chart reviewed. Discussed with team. Obtain collateral contact info as needed I spent minutes with the patient and/or on the patient floor today, greater than?50% of which was spent counseling/coordinating care. Patient educated on: diagnosis, medication risk/benefits and therapeutic strategies Reason for contiued inpatient stay Substantial Risk for: harm to self and med/psych decompensation
[2022-02-14] MEDS: Mirtazapine 15 MG TABLET 45 MG PO (19:40)
[2022-02-14] MEDS: QUEtiapine Fumarate 300 MG TABLET PO (19:41)
[2022-02-14] MEDS: Prazosin HCL 1 MG CAPSULE 2 MG PO (19:41)
[2022-02-14] MEDS: traZODone HCL 50 MG TABLET 150 MG PO (19:41)
[2022-02-15 08:04] VITALS: BP 122/83; PULSE 54; RESP 18; TEMP 36.9; O2SAT 97
[2022-02-15] MEDS: Gabapentin 600 MG TABLET PO ×3 (08:28→21:56)
[2022-02-15] MEDS: cloNIDine HCL 0.2 MG TABLET PO ×3 (08:28→21:56)
[2022-02-15] MEDS: lamoTRIgine 25 MG TABLET PO (08:28)
[2022-02-15] MEDS: Multivitamin TABLET 1 TAB PO (08:29)
[2022-02-15] MEDS: amLODIPine Besylate 10 MG TABLET PO (08:29)
[2022-02-15] MEDS: lamoTRIgine 100 MG TABLET PO (08:29)
[2022-02-15] MEDS: methADONE HCl 20 MG/2 ML ORAL.CONC 125 MG PO (08:30)
[2022-02-15] MEDS: hydrOXYzine HCL 25 MG TABLET 75 MG PO (10:27)
[2022-02-15] MEDS: Ondansetron ODT 4 MG TAB.RAPDIS TRANSLINGU (13:18)
[2022-02-15 14:08] VITALS: BP 94/55; PULSE 62; RESP 18; O2SAT 97
--- NOTE | 2022-02-15 18:47 | HO.PSYCHPN ---
Subjective Subjective Date of Service: 02/15/22 Reason For Visit: Depression, SI Interim History: Discussed with team. Pt says her anxiety is through the roof, she hasnt left her room all day. She appears tired. Denies withdrawals today. Methadone dose is okay, does not want adjustments. Says she is sleeping a lot and feels rested, attributes hypersomnia to feeling depressed and anxious. Says her PRN Seroquel isn't working. Vistaril helps more Review of Systems Review of Systems CVS: No c/o chest pain, palpitations, no SOB [employer]: No c/o dizziness, headache GI: No c/o Nausea, Vomiting, diarrhea, constipation or heartburn Mental Status Exam Mental Status Exam Narrative: In hospital attire, overweight, unkempt. Poor eye contact, inattentive. No Tics or Tremors. No abnormal involuntary movements. Irritable but able to cooperate with brief interview. Non-pressured speech, spontaneous with regular rate and rhythm, normal volume and prosody. No prolonged speech latency or dysarthria. Mood is ?anxious,? affect is dysphoric. Denies SI/SIB/HI upon inquiry. Denies A/VH or delusional thought content. Thoughts are goal oriented, linear. No known cognitive or memory impairment. Insight/ Judgment fair and adequate. Diagnostics Vital Signs (24Hr): Vital Signs - 24 hr 02/15/22 08:04 02/15/22 14:08 Temperature 98.4 F Pulse Rate 54 62 Respiratory Rate 18 18 Blood Pressure 122/83 94/55 L Pulse Oximetry 97 97 Oxygen Delivery Method Room Air Room Air BMI result Body Mass Index 26.2 Labs Results: 02/13/22 09:02 02/13/22 09:03 Labs: Laboratory Results - last 48 hr 02/14/22 02/14/22 02/14/22 08:11 08:11 08:11 Estimat Average Glucose 94 Hemoglobin A1c % 4.9 Magnesium 1.9 Triglycerides 339 Cholesterol 277 LDL Cholesterol, Calc 154 HDL Cholesterol 56 Vitamin B12 454 Folate 12.1 TSH 0.58 Free T4 0.90 Medications Medications Current Medications Acetaminophen (Acetaminophen 325 Mg Tablet) 650 mg PO Q6H PRN PRN Reason: Headache/Pain Mild Scale (1-3) Al Hydroxide/Mg Hydroxide (Magnesium Hydrox/Alum Hydrox 30 Ml Oral.Susp) 30 ml PO Q6H PRN PRN Reason: Heartburn/Nausea Amlodipine Besylate (Amlodipine Besylate 10 Mg Tablet) 10 mg PO DAILY [facility]; Protocol Last Admin: 02/15/22 08:29 Dose: 10 mg Cefuroxime Axetil (Cefuroxime Axetil 250 Mg Tablet) 250 mg PO BID [facility] Stop: 02/20/22 08:59 Last Admin: 02/15/22 08:28 Dose: 250 mg Clonidine HCl (Clonidine Hcl 0.2 Mg Tablet) 0.2 mg PO TID [facility]; Protocol Last Admin: 02/15/22 14:13 Dose: 0.2 mg Enoxaparin Sodium (Enoxaparin Sodium 120 Mg/0.8 Ml Syringe) 120 mg SUBCUT Q24H [facility] Last Admin: 02/15/22 17:22 Dose: Not Given Fluconazole (Fluconazole 50 Mg Tablet) 50 mg PO DAILY [facility] Last Admin: 02/15/22 08:28 Dose: 50 mg Gabapentin (Gabapentin 600 Mg Tablet) 600 mg PO TID [facility] Last Admin: 02/15/22 14:13 Dose: 600 mg Hydroxyzine HCl (Hydroxyzine Hcl 25 Mg Tablet) 75 mg PO Q6H PRN PRN Reason: Anxiety Last Admin: 02/15/22 10:27 Dose: 75 mg Lamotrigine (Lamotrigine 25 Mg Tablet) 25 mg PO DAILY [facility] Last Admin: 02/15/22 08:28 Dose: 25 mg Lamotrigine (Lamotrigine 100 Mg Tablet) 100 mg PO DAILY [facility] Last Admin: 02/15/22 08:29 Dose: 100 mg Magnesium Hydroxide (Milk Of Magnesia 30 Ml Oral.Susp) 30 ml PO DAILY PRN PRN Reason: Constipation Methadone HCl (Methadone Hcl 20 Mg/2 Ml Oral.Conc) 125 mg PO DAILY [facility] Last Admin: 02/15/22 08:30 Dose: 125 mg Mirtazapine (Mirtazapine 15 Mg Tablet) 45 mg PO BEDTIME [facility] Last Admin: 02/14/22 19:40 Dose: 45 mg Multivitamins/Vitamin C (Multivitamin Tablet) 1 tab PO DAILY [facility] Last Admin: 02/15/22 08:29 Dose: 1 tab Nicotine Polacrilex (Nicotine Polacrilex 2 Mg Gum) 4 mg BUCCAL Q2H PRN PRN Reason: nicotine cravings Last Admin: 02/14/22 09:06 Dose: 4 mg Pt Own (Lumateperone [Caplyta] 42 Mg Capsule) 1 cap PO DAILY [facility] Last Admin: 02/15/22 08:28 Dose: 1 cap Ondansetron HCl (Ondansetron Odt 4 Mg Tab.Rapdis) 4 mg TRANSLINGU Q6H PRN PRN Reason: Nausea Prazosin HCl (Prazosin Hcl 1 Mg Capsule) 2 mg PO BEDTIME [facility]; Protocol Last Admin: 02/14/22 19:41 Dose: 2 mg Quetiapine Fumarate (Quetiapine Fumarate 300 Mg Tablet) 300 mg PO BEDTIME [facility] Last Admin: 02/14/22 19:41 Dose: 300 mg Quetiapine Fumarate (Quetiapine Fumarate 50 Mg Tablet) 50 mg PO TID PRN PRN Reason: anxiety, agitation Sumatriptan Succinate (Sumatriptan Succinate 50 Mg Tablet) 50 mg PO DAILY MRX1 PRN PRN Reason: Migraine Headache Trazodone HCl (Trazodone Hcl 50 Mg Tablet) 150 mg PO BEDTIME [facility] Last Admin: 02/14/22 19:41 Dose: 150 mg Allergies Allergies Allergy/AdvReac Type Severity Reaction Status Date / Time bee pollen [BEE STINGS] Allergy Severe Anaphylaxis Verified 12/30/21 19:45 codeine [CODEINE] Allergy Severe ANAPHYLAXIS Verified 12/30/21 19:45 Iodinated Contrast Media Allergy Severe DIFFICULTY Verified 12/30/21 19:45 [IV DYE, IODINE CONTAINING BREATHING CONTRAST ] Sulfa (Sulfonamide Allergy Severe ANAPHYLAXIS Verified 02/14/22 10:46 Antibiotics) [SULFA (SULFONAMIDE ANTIBIOTICS)] nut - unspecified [nut] Allergy Intermediate Rash Verified 12/30/21 19:45 shellfish derived Allergy Intermediate Rash Verified 12/30/21 19:45 fluoxetine [From Prozac] AdvReac Severe Migraine Verified 12/30/21 19:45 Fish Containing Products AdvReac Stomach Verified 02/13/22 08:43 Upset Assessment & Plan Assessment & Plan (1) HERSON (generalized anxiety disorder): Status: Acute Code(s): F41.1 - Generalized anxiety disorder (2) MDD (major depressive disorder), recurrent episode, moderate: Status: Acute Code(s): F33.1 - Major depressive disorder, recurrent, moderate (3) Opioid use disorder: Status: Acute Code(s): F11.90 - Opioid use, unspecified, uncomplicated (4) Cocaine use disorder: Status: Acute Code(s): F14.10 - Cocaine abuse, uncomplicated Plan Melita is a 41-year-old Female who carries a dx of polysubstance abuse, MDD recurrent, and HERSON. Denies alcohol abuse. 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 She presented to [facility] ED on 02/12/2022 c/o feeling depressed and suicidal, not taking most of her meds for 5 days and not going to the methadone clinic for 2 days. Reports no drug use in 4 to 5 days. Upon ED workup, pt found to have UTI, ceftin started. Utox positive for cocaine, fentanyl, and opiates. Of note, recent medical admission for acute kidney injury superimposed on CKD 11/2021. Has chronically elevated Creatinine, prev 1.7, however range goes up to 2.6. Plan: 02/13: re-start home meds, pt says she has been adherent with some of her meds including lamictal. Seen by addiction team, re-started on methadone.? 02/14: restart caplyta, increase seroquel to 50 mg TID PRN and vistaril to 75 mg TID PRN, may repeat EKG 02/15: Continue current treatment plan. Q15 min safety checks, CV Monitor response to medications. Monitor for safety in the milieu. Discharge on stabilization. Patient seen. Chart reviewed. Discussed with team. Obtain collateral contact info as needed I spent minutes with the patient and/or on the patient floor today, greater than?50% of which was spent counseling/coordinating care. Reason for contiued inpatient stay Substantial Risk for: harm to self and inability to function
[2022-02-15 21:50] VITALS: BP 116/68; PULSE 61; RESP 18; TEMP 37.1
[2022-02-15] MEDS: Mirtazapine 15 MG TABLET 45 MG PO (21:55)
[2022-02-15] MEDS: traZODone HCL 50 MG TABLET 150 MG PO (21:56)
[2022-02-15] MEDS: Prazosin HCL 1 MG CAPSULE 2 MG PO (21:56)
[2022-02-15] MEDS: QUEtiapine Fumarate 300 MG TABLET PO (21:56)
[2022-02-16] MEDS: Multivitamin TABLET 1 TAB PO (08:19)
[2022-02-16] MEDS: lamoTRIgine 100 MG TABLET PO (08:19)
[2022-02-16] MEDS: cloNIDine HCL 0.2 MG TABLET PO ×3 (08:19→20:36)
[2022-02-16] MEDS: amLODIPine Besylate 10 MG TABLET PO (08:19)
[2022-02-16] MEDS: methADONE HCl 20 MG/2 ML ORAL.CONC 125 MG PO (08:19)
[2022-02-16] MEDS: lamoTRIgine 25 MG TABLET PO (08:19)
[2022-02-16] MEDS: Gabapentin 600 MG TABLET PO ×3 (08:19→20:37)
[2022-02-16 08:36] VITALS: BP 130/67; PULSE 58; TEMP 36.6; O2SAT 96
[2022-02-16] MEDS: hydrOXYzine HCL 25 MG TABLET 75 MG PO (14:20)
--- NOTE | 2022-02-16 15:05 | HO.PSYCHPN ---
Subjective Subjective Date of Service: 02/16/22 Reason For Visit: Depression, SI Interim History: Discussed with team. Patient continues to be isolative and anxious per her report. She did take a shower yesterday. She has been refusing Lovenox. Patient reports she had DVT between the ages of 16 and 23. She has an IVC in place. She says she does not take the Lovenox as an outpatient and has not been since she had the IVC inserted. She says her anxiety is so-so Then she says that it is through the roof . She appears calm on interview. She denies suicidal or homicidal ideation. She uses the Vistaril helps but not the Seroquel. Review of Systems Review of Systems CVS: No c/o chest pain, palpitations, no SOB [employer]MENT[employer]: No c/o dizziness, headache GI: No c/o Nausea, Vomiting, diarrhea, constipation or heartburn Mental Status Exam Mental Status Exam Narrative: In hospital attire, overweight, unkempt. Poor eye contact, inattentive. No Tics or Tremors. No abnormal involuntary movements. Irritable but able to cooperate with brief interview. Non-pressured speech, spontaneous with regular rate and rhythm, normal volume and prosody. No prolonged speech latency or dysarthria. Mood is ?anxious,? affect is dysphoric. Denies SI/SIB/HI upon inquiry. Denies A/VH or delusional thought content. Thoughts are goal oriented, linear. No known cognitive or memory impairment. Insight/ Judgment fair and adequate. Diagnostics Vital Signs (24Hr): Vital Signs - 24 hr 02/15/22 21:50 02/16/22 08:36 Temperature 98.7 F 97.8 F Pulse Rate 61 58 Respiratory Rate 18 Blood Pressure 116/68 130/67 Pulse Oximetry 96 Oxygen Delivery Method Room Air BMI result Body Mass Index 26.2 Labs Results: 02/13/22 09:02 02/13/22 09:03 Medications Medications Current Medications Acetaminophen (Acetaminophen 325 Mg Tablet) 650 mg PO Q6H PRN PRN Reason: Headache/Pain Mild Scale (1-3) Al Hydroxide/Mg Hydroxide (Magnesium Hydrox/Alum Hydrox 30 Ml Oral.Susp) 30 ml PO Q6H PRN PRN Reason: Heartburn/Nausea Amlodipine Besylate (Amlodipine Besylate 10 Mg Tablet) 10 mg PO DAILY [facility]; Protocol Last Admin: 02/16/22 08:19 Dose: 10 mg Cefuroxime Axetil (Cefuroxime Axetil 250 Mg Tablet) 250 mg PO BID [facility] Stop: 02/20/22 08:59 Last Admin: 02/16/22 08:19 Dose: 250 mg Clonidine HCl (Clonidine Hcl 0.2 Mg Tablet) 0.2 mg PO TID [facility]; Protocol Last Admin: 02/16/22 14:24 Dose: 0.2 mg Enoxaparin Sodium (Enoxaparin Sodium 120 Mg/0.8 Ml Syringe) 120 mg SUBCUT Q24H [facility] Last Admin: 02/15/22 17:22 Dose: Not Given Fluconazole (Fluconazole 50 Mg Tablet) 50 mg PO DAILY [facility] Last Admin: 02/16/22 08:19 Dose: 50 mg Gabapentin (Gabapentin 600 Mg Tablet) 600 mg PO TID [facility] Last Admin: 02/16/22 14:20 Dose: 600 mg Hydroxyzine HCl (Hydroxyzine Hcl 25 Mg Tablet) 75 mg PO Q6H PRN PRN Reason: Anxiety Last Admin: 02/16/22 14:20 Dose: 75 mg Lamotrigine (Lamotrigine 25 Mg Tablet) 25 mg PO DAILY [facility] Last Admin: 02/16/22 08:19 Dose: 25 mg Lamotrigine (Lamotrigine 100 Mg Tablet) 100 mg PO DAILY [facility] Last Admin: 02/16/22 08:19 Dose: 100 mg Magnesium Hydroxide (Milk Of Magnesia 30 Ml Oral.Susp) 30 ml PO DAILY PRN PRN Reason: Constipation Methadone HCl (Methadone Hcl 20 Mg/2 Ml Oral.Conc) 125 mg PO DAILY [facility] Last Admin: 02/16/22 08:19 Dose: 125 mg Mirtazapine (Mirtazapine 15 Mg Tablet) 45 mg PO BEDTIME [facility] Last Admin: 02/15/22 21:55 Dose: 45 mg Multivitamins/Vitamin C (Multivitamin Tablet) 1 tab PO DAILY [facility] Last Admin: 02/16/22 08:19 Dose: 1 tab Nicotine Polacrilex (Nicotine Polacrilex 2 Mg Gum) 4 mg BUCCAL Q2H PRN PRN Reason: nicotine cravings Last Admin: 02/14/22 09:06 Dose: 4 mg Pt Own (Lumateperone [Caplyta] 42 Mg Capsule) 1 cap PO DAILY [facility] Last Admin: 02/16/22 08:39 Dose: 1 cap Ondansetron HCl (Ondansetron Odt 4 Mg Tab.Rapdis) 4 mg TRANSLINGU Q6H PRN PRN Reason: Nausea Prazosin HCl (Prazosin Hcl 1 Mg Capsule) 2 mg PO BEDTIME [facility]; Protocol Last Admin: 02/15/22 21:56 Dose: 2 mg Quetiapine Fumarate (Quetiapine Fumarate 300 Mg Tablet) 300 mg PO BEDTIME [facility] Last Admin: 02/15/22 21:56 Dose: 300 mg Quetiapine Fumarate (Quetiapine Fumarate 50 Mg Tablet) 50 mg PO TID PRN PRN Reason: anxiety, agitation Sumatriptan Succinate (Sumatriptan Succinate 50 Mg Tablet) 50 mg PO DAILY MRX1 PRN PRN Reason: Migraine Headache Trazodone HCl (Trazodone Hcl 50 Mg Tablet) 150 mg PO BEDTIME [facility] Last Admin: 02/15/22 21:56 Dose: 150 mg Allergies Allergies Allergy/AdvReac Type Severity Reaction Status Date / Time bee pollen [BEE STINGS] Allergy Severe Anaphylaxis Verified 12/30/21 19:45 codeine [CODEINE] Allergy Severe ANAPHYLAXIS Verified 12/30/21 19:45 Iodinated Contrast Media Allergy Severe DIFFICULTY Verified 12/30/21 19:45 [IV DYE, IODINE CONTAINING BREATHING CONTRAST ] Sulfa (Sulfonamide Allergy Severe ANAPHYLAXIS Verified 02/14/22 10:46 Antibiotics) [SULFA (SULFONAMIDE ANTIBIOTICS)] nut - unspecified [nut] Allergy Intermediate Rash Verified 12/30/21 19:45 shellfish derived Allergy Intermediate Rash Verified 12/30/21 19:45 fluoxetine [From Prozac] AdvReac Severe Migraine Verified 12/30/21 19:45 Fish Containing Products AdvReac Stomach Verified 02/13/22 08:43 Upset Assessment & Plan Assessment & Plan (1) HERSON (generalized anxiety disorder): Status: Acute Code(s): F41.1 - Generalized anxiety disorder (2) MDD (major depressive disorder), recurrent episode, moderate: Status: Acute Code(s): F33.1 - Major depressive disorder, recurrent, moderate (3) Opioid use disorder: Status: Acute Code(s): F11.90 - Opioid use, unspecified, uncomplicated (4) Cocaine use disorder: Status: Acute Code(s): F14.10 - Cocaine abuse, uncomplicated Plan Melita is a 41-year-old Female who carries a dx of polysubstance abuse, MDD recurrent, and HERSON. Denies alcohol abuse. 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 She presented to [facility] ED on 02/12/2022 c/o feeling depressed and suicidal, not taking most of her meds for 5 days and not going to the methadone clinic for 2 days. Reports no drug use in 4 to 5 days. Upon ED workup, pt found to have UTI, ceftin started. Utox positive for cocaine, fentanyl, and opiates. Of note, recent medical admission for acute kidney injury superimposed on CKD 11/2021. Has chronically elevated Creatinine, prev 1.7, however range goes up to 2.6. Plan: 02/13: re-start home meds, pt says she has been adherent with some of her meds including lamictal. Seen by addiction team, re-started on methadone.? 02/14: restart caplyta, increase seroquel to 50 mg TID PRN and vistaril to 75 mg TID PRN, may repeat EKG 02/15: Continue current treatment plan. 02/16/2022: Continue treatment plan. Q15 min safety checks, CV Monitor response to medications. Monitor for safety in the milieu. Discharge on stabilization. Patient seen. Chart reviewed. Discussed with team. Obtain collateral contact info as needed I spent minutes with the patient and/or on the patient floor today, greater than?50% of which was spent counseling/coordinating care. Reason for contiued inpatient stay Substantial Risk for: harm to self and inability to function
[2022-02-16 20:30] VITALS: BP 114/69; PULSE 69; RESP 18
[2022-02-16] MEDS: Mirtazapine 15 MG TABLET 45 MG PO (20:36)
[2022-02-16] MEDS: QUEtiapine Fumarate 300 MG TABLET PO (20:36)
[2022-02-16] MEDS: traZODone HCL 50 MG TABLET 150 MG PO (20:36)
[2022-02-16] MEDS: Prazosin HCL 1 MG CAPSULE 2 MG PO (20:36)
[2022-02-17 08:42] VITALS: BP 111/58; PULSE 50; RESP 16; TEMP 36.2; O2SAT 96
[2022-02-17] MEDS: lamoTRIgine 100 MG TABLET PO (08:55)
[2022-02-17] MEDS: Gabapentin 600 MG TABLET PO ×3 (08:55→21:50)
[2022-02-17] MEDS: amLODIPine Besylate 10 MG TABLET PO (08:56)
[2022-02-17] MEDS: lamoTRIgine 25 MG TABLET PO (08:56)
[2022-02-17] MEDS: Multivitamin TABLET 1 TAB PO (08:56)
[2022-02-17] MEDS: methADONE HCl 20 MG/2 ML ORAL.CONC 125 MG PO (08:56)
[2022-02-17 09:06] LABS: Hematocrit 38.7 % (37.0-47.0); Hemoglobin 12.5 g/dl (12.0-16.0); Mean Corpuscular HGB Conc 32.3 g/dl (31.0-35.0); Mean Corpuscular Hemoglobin 31.4 pg (27.0-33.0); Mean Corpuscular Volume 97.2 fL (80.0-98.0); Mean Platelet Volume 13.5 fL (9.4-12.3); PLT CLUMP 1; Red Blood Count 3.98 X10*6/uL (4.20-5.50); Red Cell Distribution Width 14.2 % (11.0-16.0)
[2022-02-17 09:07] LABS: WBC ABN SCTR FOR CBC 1
[2022-02-17 09:35] LABS: Platelet Count 236 X10*3/uL (160-400); White Blood Count 8.1 X10*3/uL (4.8-10.8)
[2022-02-17] MEDS: cloNIDine HCL 0.2 MG TABLET PO ×2 (11:45→15:47)
[2022-02-17] MEDS: Nicotine Polacrilex 2 MG GUM 4 MG BUCCAL (12:00)
--- NOTE | 2022-02-17 17:17 | P.PNPSI_ITS ---
Subjective Subjective Date of Service: 02/17/22 Reason For Visit: Depression, SI Subjective Notes: Swain Warning Interim History: I spoke with pt and her team. She says she still feels just really depressed, has been isolative, I usually go out and join the activities, however she hasnt done that once since gordon been here. Feels she is sleeping too much, attr ibutes this to depression. Also says she has anxiety around too many people. Says her is not reaching out. Discussed restarting an antidepressant. She reports prozac caused migraines but no other adverse effect, not activating. Says effexor was alright. Medication Compliance: Yes Side effects from medications: No Attending Groups: No Review of Systems Acute medical concerns: No Medical Review of Systems: unchanged Mental Status Exam Mental Status Exam Narrative: In hospital attire, overweight, unkempt. Poor eye contact, attentive. No Tics or Tremors. No abnormal involuntary movements. Calm, cooperative. Non-pressured speech, spontaneous with regular rate and rhythm, normal volume and prosody. No prolonged speech latency or dysarthria. Mood is ?depressed,? affect is dysphoric. Denies SI/SIB/HI upon inquiry. Denies A/VH or delusional thought content. Thoughts are goal oriented, linear. No known cognitive or memory impairment. Insight/ Judgment fair and adequate. Diagnostics Vital Signs (24Hr): Vital Signs - 24 hr 02/16/22 20:30 02/17/22 08:42 Temperature 97.2 F Pulse Rate 69 50 Respiratory Rate 18 16 Blood Pressure 114/69 111/58 L Pulse Oximetry 96 Oxygen Delivery Method Room Air BMI result Body Mass Index 26.2 Labs Results: 02/17/22 08:13 02/13/22 09:03 Labs: Laboratory Results - last 48 hr 02/17/22 08:13 WBC 8.1 RBC 3.98 L Hgb 12.5 Hct 38.7 MCV 97.2 MCH 31.4 MCHC 32.3 RDW 14.2 Plt Count 236 MPV 13.5 H Absolute Nucleated RBC 0.000 Nucleated RBC % (auto) 0.0 Medications Medications Current Medications Acetaminophen (Acetaminophen 325 Mg Tablet) 650 mg PO Q6H PRN PRN Reason: Headache/Pain Mild Scale (1-3) Al Hydroxide/Mg Hydroxide (Magnesium Hydrox/Alum Hydrox 30 Ml Oral.Susp) 30 ml PO Q6H PRN PRN Reason: Heartburn/Nausea Amlodipine Besylate (Amlodipine Besylate 10 Mg Tablet) 10 mg PO DAILY [facility]; Protocol Last Admin: 02/17/22 08:56 Dose: 10 mg Cefuroxime Axetil (Cefuroxime Axetil 250 Mg Tablet) 250 mg PO BID [facility] Stop: 02/20/22 08:59 Last Admin: 02/17/22 08:55 Dose: 250 mg Clonidine HCl (Clonidine Hcl 0.2 Mg Tablet) 0.2 mg PO TID [facility]; Protocol Last Admin: 02/17/22 15:47 Dose: 0.2 mg Enoxaparin Sodium (Enoxaparin Sodium 120 Mg/0.8 Ml Syringe) 120 mg SUBCUT Q24H [facility] Last Admin: 02/16/22 18:00 Dose: Not Given Fluconazole (Fluconazole 50 Mg Tablet) 50 mg PO DAILY [facility] Last Admin: 02/17/22 08:56 Dose: 50 mg Gabapentin (Gabapentin 600 Mg Tablet) 600 mg PO TID [facility] Last Admin: 02/17/22 15:47 Dose: 600 mg Hydroxyzine HCl (Hydroxyzine Hcl 25 Mg Tablet) 75 mg PO Q6H PRN PRN Reason: Anxiety Last Admin: 02/16/22 14:20 Dose: 75 mg Lamotrigine (Lamotrigine 25 Mg Tablet) 25 mg PO DAILY [facility] Last Admin: 02/17/22 08:56 Dose: 25 mg Lamotrigine (Lamotrigine 100 Mg Tablet) 100 mg PO DAILY [facility] Last Admin: 02/17/22 08:55 Dose: 100 mg Magnesium Hydroxide (Milk Of Magnesia 30 Ml Oral.Susp) 30 ml PO DAILY PRN PRN Reason: Constipation Methadone HCl (Methadone Hcl 20 Mg/2 Ml Oral.Conc) 125 mg PO DAILY [facility] Last Admin: 02/17/22 08:56 Dose: 125 mg Mirtazapine (Mirtazapine 15 Mg Tablet) 45 mg PO BEDTIME [facility] Last Admin: 02/16/22 20:36 Dose: 45 mg Multivitamins/Vitamin C (Multivitamin Tablet) 1 tab PO DAILY [facility] Last Admin: 02/17/22 08:56 Dose: 1 tab Nicotine Polacrilex (Nicotine Polacrilex 2 Mg Gum) 4 mg BUCCAL Q2H PRN PRN Reason: nicotine cravings Last Admin: 02/17/22 12:00 Dose: 4 mg Pt Own (Lumateperone [Caplyta] 42 Mg Capsule) 1 cap PO DAILY [facility] Last Admin: 02/17/22 11:45 Dose: 1 cap Ondansetron HCl (Ondansetron Odt 4 Mg Tab.Rapdis) 4 mg TRANSLINGU Q6H PRN PRN Reason: Nausea Prazosin HCl (Prazosin Hcl 1 Mg Capsule) 2 mg PO BEDTIME [facility]; Protocol Last Admin: 02/16/22 20:36 Dose: 2 mg Quetiapine Fumarate (Quetiapine Fumarate 300 Mg Tablet) 300 mg PO BEDTIME [facility] Last Admin: 02/16/22 20:36 Dose: 300 mg Quetiapine Fumarate (Quetiapine Fumarate 50 Mg Tablet) 50 mg PO TID PRN PRN Reason: anxiety, agitation Sumatriptan Succinate (Sumatriptan Succinate 50 Mg Tablet) 50 mg PO DAILY MRX1 PRN PRN Reason: Migraine Headache Trazodone HCl (Trazodone Hcl 50 Mg Tablet) 150 mg PO BEDTIME [facility] Last Admin: 02/16/22 20:36 Dose: 150 mg Allergies Allergies Allergy/AdvReac Type Severity Reaction Status Date / Time bee pollen [BEE STINGS] Allergy Severe Anaphylaxis Verified 12/30/21 19:45 codeine [CODEINE] Allergy Severe ANAPHYLAXIS Verified 12/30/21 19:45 Iodinated Contrast Media Allergy Severe DIFFICULTY Verified 12/30/21 19:45 [IV DYE, IODINE CONTAINING BREATHING CONTRAST ] Sulfa (Sulfonamide Allergy Severe ANAPHYLAXIS Verified 02/14/22 10:46 Antibiotics) [SULFA (SULFONAMIDE ANTIBIOTICS)] nut - unspecified [nut] Allergy Intermediate Rash Verified 12/30/21 19:45 shellfish derived Allergy Intermediate Rash Verified 12/30/21 19:45 fluoxetine [From Prozac] AdvReac Severe Migraine Verified 12/30/21 19:45 Fish Containing Products AdvReac Stomach Verified 02/13/22 08:43 Upset Assessment & Plan Assessment & Plan (1) HERSON (generalized anxiety disorder): Status: Acute Code(s): F41.1 - Generalized anxiety disorder (2) MDD (major depressive disorder), recurrent episode, moderate: Status: Acute Code(s): F33.1 - Major depressive disorder, recurrent, moderate (3) Opioid use disorder: Status: Acute Code(s): F11.90 - Opioid use, unspecified, uncomplicated (4) Cocaine use disorder: Status: Acute Code(s): F14.10 - Cocaine abuse, uncomplicated Plan Melita is a 41-year-old Female who carries a dx of polysubstance abuse, MDD recurrent, and HERSON. Denies alcohol abuse. 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 She presented to [facility] ED on 02/12/2022 c/o feeling depressed and suicidal, not taking most of her meds for 5 days and not going to the methadone clinic for 2 days. Reports no drug use in 4 to 5 days. Upon ED workup, pt found to have UTI, ceftin started. Utox positive for cocaine, fentanyl, and opiates. Of note, rec ent medical admission for acute kidney injury superimposed on CKD 11/2021. Has chronically elevated Creatinine, prev 1.7, however range goes up to 2.6. Plan: 02/13: re-start home meds, pt says she has been adherent with some of her meds including lamictal. Seen by addiction team, re-started on methadone.? 02/14: restart caplyta, increase seroquel to 50 mg TID PRN and vistaril to 75 mg TID PRN, may repeat EKG 02/15: Continue current treatment plan. 02/16/2022: Continue treatment plan. 02/17/2022: Start lexapro 10 mg for depression, anxiety Q15 min safety checks, CV Monitor response to medications. Monitor for safety in the milieu. Discharge on stabilization. Patient seen. Chart reviewed. Discussed with team. Obtain collateral contact info as needed I spent minutes with the patient and/or on the patient floor today, greater than?50% of which was spent counseling/coordinating care. Patient educated on: medication risk/benefits and therapeutic strategies Reason for contiued inpatient stay Substantial Risk for: rapid decompensation and med/psych decompensation
[2022-02-17 18:00] VITALS: BP 111/63; PULSE 72; TEMP 36.2; O2SAT 95
[2022-02-17] MEDS: hydrOXYzine HCL 25 MG TABLET 75 MG PO (18:07)
[2022-02-17] MEDS: traZODone HCL 50 MG TABLET 150 MG PO (21:50)
[2022-02-17] MEDS: Prazosin HCL 1 MG CAPSULE 2 MG PO (21:50)
[2022-02-17] MEDS: cloNIDine HCL 0.1 MG TABLET PO (21:50)
[2022-02-17] MEDS: QUEtiapine Fumarate 300 MG TABLET PO (21:50)
[2022-02-17] MEDS: Mirtazapine 15 MG TABLET 45 MG PO (21:50)
[2022-02-18 11:26] VITALS: BP 109/60; PULSE 68; TEMP 36.5
[2022-02-18] MEDS: methADONE HCl 20 MG/2 ML ORAL.CONC 125 MG PO (11:44)
[2022-02-18] MEDS: cloNIDine HCL 0.1 MG TABLET PO ×3 (11:45→19:44)
[2022-02-18] MEDS: Nicotine Polacrilex 2 MG GUM 4 MG BUCCAL (11:46)
[2022-02-18] MEDS: amLODIPine Besylate 10 MG TABLET PO (11:46)
[2022-02-18] MEDS: Multivitamin TABLET 1 TAB PO (11:46)
[2022-02-18] MEDS: lamoTRIgine 100 MG TABLET PO (11:46)
[2022-02-18] MEDS: lamoTRIgine 25 MG TABLET PO (11:46)
[2022-02-18] MEDS: Gabapentin 400 MG CAPSULE PO ×2 (11:46→14:07)
[2022-02-18] MEDS: Escitalopram Oxalate 10 MG TABLET PO (11:46)
[2022-02-18 18:00] VITALS: BP 122/79; PULSE 69; RESP 16; TEMP 36.4; O2SAT 98
[2022-02-18] MEDS: hydrOXYzine HCL 25 MG TABLET 75 MG PO (18:49)
--- NOTE | 2022-02-18 19:25 | HO.PSYCHPN ---
Subjective Subjective Date of Service: 02/18/22 Reason For Visit: Depression, SI Interim History: I spoke with pt's team. Evaluated pt, says she is Feeling better, energy level is the same however she appears more alert, less nodding off. Says I dont know what made today better, still stayed in my room a lot. Says dcf is coming into her sister's house on , sister has custody of her son right now, nervous about this. Denies physical health concerns. Medication Compliance: Yes Side effects from medications: No Attending Groups: No Review of Systems Acute medical concerns: No Medical Review of Systems: unchanged Mental Status Exam Mental Status Exam Narrative: In hospital attire, overweight, unkempt. Poor eye contact, attentive. No Tics or Tremors. No abnormal involuntary movements. Calm, cooperative. Non-pressured speech, spontaneous with regular rate and rhythm, normal volume and prosody. No prolonged speech latency or dysarthria. Mood is ?better,? affect is somewhat brighter, more alert. Denies SI/SIB/HI upon inquiry. Denies A/VH or delusional thought content. Thoughts are goal oriented, linear. No known cognitive or memory impairment. Insight/ Judgment fair and adequate. Diagnostics Vital Signs (24Hr): Vital Signs - 24 hr 02/18/22 11:26 Temperature 97.7 F Pulse Rate 68 Blood Pressure 109/60 BMI result Body Mass Index 26.2 Labs Results: 02/17/22 08:13 02/13/22 09:03 Labs: Laboratory Results - last 48 hr 02/17/22 08:13 WBC 8.1 RBC 3.98 L Hgb 12.5 Hct 38.7 MCV 97.2 MCH 31.4 MCHC 32.3 RDW 14.2 Plt Count 236 MPV 13.5 H Absolute Nucleated RBC 0.000 Nucleated RBC % (auto) 0.0 Medications Medications Current Medications Acetaminophen (Acetaminophen 325 Mg Tablet) 650 mg PO Q6H PRN PRN Reason: Headache/Pain Mild Scale (1-3) Al Hydroxide/Mg Hydroxide (Magnesium Hydrox/Alum Hydrox 30 Ml Oral.Susp) 30 ml PO Q6H PRN PRN Reason: Heartburn/Nausea Amlodipine Besylate (Amlodipine Besylate 10 Mg Tablet) 10 mg PO DAILY [facility]; Protocol Last Admin: 02/18/22 11:46 Dose: 10 mg Cefuroxime Axetil (Cefuroxime Axetil 250 Mg Tablet) 250 mg PO BID [facility] Stop: 02/20/22 08:59 Last Admin: 02/18/22 11:46 Dose: 250 mg Clonidine HCl (Clonidine Hcl 0.1 Mg Tablet) 0.1 mg PO TID [facility]; Protocol Last Admin: 02/18/22 14:07 Dose: 0.1 mg Enoxaparin Sodium (Enoxaparin Sodium 120 Mg/0.8 Ml Syringe) 120 mg SUBCUT Q24H [facility] Last Admin: 02/18/22 18:13 Dose: Not Given Escitalopram Oxalate (Escitalopram Oxalate 10 Mg Tablet) 10 mg PO DAILY [facility] Last Admin: 02/18/22 11:46 Dose: 10 mg Fluconazole (Fluconazole 50 Mg Tablet) 50 mg PO DAILY [facility] Last Admin: 02/18/22 11:46 Dose: 50 mg Gabapentin (Gabapentin 600 Mg Tablet) 600 mg PO BEDTIME [facility] Last Admin: 02/17/22 21:50 Dose: 600 mg Gabapentin (Gabapentin 400 Mg Capsule) 400 mg PO BID@0800,1500 [facility] Last Admin: 02/18/22 14:07 Dose: 400 mg Hydroxyzine HCl (Hydroxyzine Hcl 25 Mg Tablet) 75 mg PO Q6H PRN PRN Reason: Anxiety Last Admin: 02/18/22 18:49 Dose: 75 mg Lamotrigine (Lamotrigine 25 Mg Tablet) 25 mg PO DAILY [facility] Last Admin: 02/18/22 11:46 Dose: 25 mg Lamotrigine (Lamotrigine 100 Mg Tablet) 100 mg PO DAILY [facility] Last Admin: 02/18/22 11:46 Dose: 100 mg Magnesium Hydroxide (Milk Of Magnesia 30 Ml Oral.Susp) 30 ml PO DAILY PRN PRN Reason: Constipation Methadone HCl (Methadone Hcl 20 Mg/2 Ml Oral.Conc) 125 mg PO DAILY [facility] Last Admin: 02/18/22 11:44 Dose: 125 mg Mirtazapine (Mirtazapine 15 Mg Tablet) 45 mg PO BEDTIME [facility] Last Admin: 02/17/22 21:50 Dose: 45 mg Multivitamins/Vitamin C (Multivitamin Tablet) 1 tab PO DAILY [facility] Last Admin: 02/18/22 11:46 Dose: 1 tab Nicotine Polacrilex (Nicotine Polacrilex 2 Mg Gum) 4 mg BUCCAL Q2H PRN PRN Reason: nicotine cravings Last Admin: 02/18/22 11:46 Dose: 4 mg Pat Own Med ( Lumateperone [ Caplyta] 1 Cap) 1 cap PO BEDTIME [facility] Last Admin: 02/17/22 21:49 Dose: 1 cap Ondansetron HCl (Ondansetron Odt 4 Mg Tab.Rapdis) 4 mg TRANSLINGU Q6H PRN PRN Reason: Nausea Prazosin HCl (Prazosin Hcl 1 Mg Capsule) 2 mg PO BEDTIME [facility]; Protocol Last Admin: 02/17/22 21:50 Dose: 2 mg Quetiapine Fumarate (Quetiapine Fumarate 300 Mg Tablet) 300 mg PO BEDTIME [facility] Last Admin: 02/17/22 21:50 Dose: 300 mg Quetiapine Fumarate (Quetiapine Fumarate 50 Mg Tablet) 50 mg PO TID PRN PRN Reason: anxiety, agitation Sumatriptan Succinate (Sumatriptan Succinate 50 Mg Tablet) 50 mg PO DAILY MRX1 PRN PRN Reason: Migraine Headache Trazodone HCl (Trazodone Hcl 50 Mg Tablet) 150 mg PO BEDTIME [facility] Last Admin: 02/17/22 21:50 Dose: 150 mg Allergies Allergies Allergy/AdvReac Type Severity Reaction Status Date / Time bee pollen [BEE STINGS] Allergy Severe Anaphylaxis Verified 12/30/21 19:45 codeine [CODEINE] Allergy Severe ANAPHYLAXIS Verified 12/30/21 19:45 Iodinated Contrast Media Allergy Severe DIFFICULTY Verified 12/30/21 19:45 [IV DYE, IODINE CONTAINING BREATHING CONTRAST ] Sulfa (Sulfonamide Allergy Severe ANAPHYLAXIS Verified 02/14/22 10:46 Antibiotics) [SULFA (SULFONAMIDE ANTIBIOTICS)] nut - unspecified [nut] Allergy Intermediate Rash Verified 12/30/21 19:45 shellfish derived Allergy Intermediate Rash Verified 12/30/21 19:45 fluoxetine [From Prozac] AdvReac Severe Migraine Verified 12/30/21 19:45 Fish Containing Products AdvReac Stomach Verified 02/13/22 08:43 Upset Assessment & Plan Assessment & Plan (1) HERSON (generalized anxiety disorder): Status: Acute Code(s): F41.1 - Generalized anxiety disorder (2) MDD (major depressive disorder), recurrent episode, moderate: Status: Acute Code(s): F33.1 - Major depressive disorder, recurrent, moderate (3) Opioid use disorder: Status: Acute Code(s): F11.90 - Opioid use, unspecified, uncomplicated (4) Cocaine use disorder: Status: Acute Code(s): F14.10 - Cocaine abuse, uncomplicated Plan Melita is a 41-year-old Female who carries a dx of polysubstance abuse, MDD recurrent, and HERSON. Denies alcohol abuse. 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 She presented to [facility] ED on 02/12/2022 c/o feeling depressed and suicidal, not taking most of her meds for 5 days and not going to the methadone clinic for 2 days. Reports no drug use in 4 to 5 days. Upon ED workup, pt found to have UTI, ceftin started. Utox positive for cocaine, fentanyl, and opiates. Of note, recent medical admission for acute kidney injury superimposed on CKD 11/2021. Has chronically elevated Creatinine, prev 1.7, however range goes up to 2.6. Plan: 02/13: re-start home meds, pt says she has been adherent with some of her meds including lamictal. Seen by addiction team, re-started on methadone.? 02/14: restart caplyta, increase seroquel to 50 mg TID PRN and vistaril to 75 mg TID PRN, may repeat EKG 02/15: Continue current treatment plan. 02/16/2022: Continue treatment plan. 02/17/2022: Start lexapro 10 mg for depression, anxiety. decrease gabapentin to 400 mg daily and Qnoon, continue it at 600 mg QHS and decrease clonidine to 0.1 mg TID due to sedation 02/18/2022: monitor med for benefit, no changes Q15 min safety checks, CV Monitor response to medications. Monitor for safety in the milieu. Discharge on stabilization. Patient seen. Chart reviewed. Discussed with team. Obtain collateral contact info as needed I spent minutes with the patient and/or on the patient floor today, greater than?50% of which was spent counseling/coordinating care. Reason for contiued inpatient stay Substantial Risk for: rapid decompensation and med/psych decompensation
[2022-02-18] MEDS: Prazosin HCL 1 MG CAPSULE 2 MG PO (19:43)
[2022-02-18] MEDS: traZODone HCL 50 MG TABLET 150 MG PO (19:44)
[2022-02-18] MEDS: QUEtiapine Fumarate 300 MG TABLET PO (19:44)
[2022-02-18] MEDS: Gabapentin 600 MG TABLET PO (19:45)
[2022-02-18] MEDS: Mirtazapine 15 MG TABLET 45 MG PO (19:45)
[2022-02-19] MEDS: Gabapentin 400 MG CAPSULE PO ×2 (08:52→14:29)
[2022-02-19] MEDS: Escitalopram Oxalate 10 MG TABLET PO (08:52)
[2022-02-19] MEDS: lamoTRIgine 100 MG TABLET PO (08:52)
[2022-02-19] MEDS: lamoTRIgine 25 MG TABLET PO (08:52)
[2022-02-19] MEDS: cloNIDine HCL 0.1 MG TABLET PO ×3 (08:52→20:42)
[2022-02-19] MEDS: Multivitamin TABLET 1 TAB PO (08:53)
[2022-02-19] MEDS: amLODIPine Besylate 10 MG TABLET PO (08:53)
[2022-02-19] MEDS: methADONE HCl 20 MG/2 ML ORAL.CONC 125 MG PO (08:55)
[2022-02-19 09:31] VITALS: BP 112/67; PULSE 58; RESP 18; TEMP 36.9; O2SAT 94
[2022-02-19] MEDS: hydrOXYzine HCL 25 MG TABLET 75 MG PO (10:32)
[2022-02-19] MEDS: Nicotine Polacrilex 2 MG GUM 4 MG BUCCAL (14:34)
[2022-02-19 20:15] VITALS: BP 119/66; PULSE 57; TEMP 36.6
[2022-02-19] MEDS: Gabapentin 600 MG TABLET PO (20:40)
[2022-02-19] MEDS: Prazosin HCL 1 MG CAPSULE 2 MG PO (20:40)
[2022-02-19] MEDS: traZODone HCL 50 MG TABLET 150 MG PO (20:40)
[2022-02-19] MEDS: Mirtazapine 15 MG TABLET 45 MG PO (20:43)
[2022-02-19] MEDS: QUEtiapine Fumarate 300 MG TABLET PO (20:43)
--- NOTE | 2022-02-19 23:55 | P.PNPSI_ITS ---
Subjective Subjective Date of Service: 02/19/22 Reason For Visit: Depression, SI Interim History: I spoke with pt, says she is doing better today, she came out of her room for a little bit, didnt go to group, visible in milieu in evening. Sleep is okay, energy is shitty but again appears more alert, not nodding off. Says her methadone dose is okay, denies that it is too high. Says her low energy is due to depression. Physically feeling okay. Talked to her sister and son. Feeling hopeful. Doesnt want med changes. Medication Compliance: Yes Side effects from medications: No Attending Groups: No Review of Systems Acute medical concerns: No Medical Review of Systems: unchanged Mental Status Exam Mental Status Exam Narrative: In hospital attire, overweight, unkempt. Poor eye contact, inattentive. No Tics or Tremors. No abnormal involuntary movements. Irritable but able to cooperate with brief interview. Non-pressured speech, spontaneous with regular rate and rhythm, normal volume and prosody. No prolonged speech latency or dysarthria. Mood is ?depressed,? affect is dysphoric. Denies SI/SIB/HI upon inquiry. Denies A/VH or delusional thought content. Thoughts are goal oriented, linear. No known cognitive or memory impairment. Insight/ Judgment fair and adequate. Diagnostics Vital Signs (24Hr): Vital Signs - 24 hr 02/19/22 20:15 02/20/22 06:00 Temperature 97.9 F 97.6 F Pulse Rate 57 73 Respiratory Rate 16 Blood Pressure 119/66 122/66 Pulse Oximetry 98 Oxygen Delivery Method Room Air BMI result Body Mass Index 29.6 Labs Results: 02/17/22 08:13 02/13/22 09:03 Labs: Laboratory Results - last 48 hr 02/20/22 14:05 Urine Opiates Screen Not Detected Urine Fentanyl Screen POSITIVE H Ur Barbiturates Screen Not Detected Ur Phencyclidine Scrn Not Detected Ur Amphetamines Screen Not Detected U Benzodiazepines Scrn Not Detected Urine Cocaine Screen POSITIVE H U Marijuana (THC) Screen Not Detected Medications Medications Current Medications Acetaminophen (Acetaminophen 325 Mg Tablet) 650 mg PO Q6H PRN PRN Reason: Headache/Pain Mild Scale (1-3) Last Admin: 02/20/22 13:01 Dose: 650 mg Al Hydroxide/Mg Hydroxide (Magnesium Hydrox/Alum Hydrox 30 Ml Oral.Susp) 30 ml PO Q6H PRN PRN Reason: Heartburn/Nausea Amlodipine Besylate (Amlodipine Besylate 10 Mg Tablet) 10 mg PO DAILY [facility]; Protocol Last Admin: 02/20/22 08:40 Dose: 10 mg Artificial Tears (Artificial Tears 15 Ml Drops) 1 drop EYE-BOTH Q4H PRN PRN Reason: Dry Eyes Clonidine HCl (Clonidine Hcl 0.1 Mg Tablet) 0.1 mg PO TID [facility]; Protocol Last Admin: 02/20/22 14:20 Dose: 0.1 mg Enoxaparin Sodium (Enoxaparin Sodium 120 Mg/0.8 Ml Syringe) 120 mg SUBCUT Q24H [facility] Last Admin: 02/19/22 18:00 Dose: Not Given Escitalopram Oxalate (Escitalopram Oxalate 10 Mg Tablet) 10 mg PO DAILY [facility] Last Admin: 02/20/22 08:41 Dose: 10 mg Fluconazole (Fluconazole 50 Mg Tablet) 50 mg PO DAILY [facility] Last Admin: 02/20/22 08:41 Dose: 50 mg Gabapentin (Gabapentin 600 Mg Tablet) 600 mg PO BEDTIME [facility] Last Admin: 02/19/22 20:40 Dose: 600 mg Gabapentin (Gabapentin 400 Mg Capsule) 400 mg PO BID@0800,1500 [facility] Last Admin: 02/20/22 14:20 Dose: 400 mg Hydroxyzine HCl (Hydroxyzine Hcl 25 Mg Tablet) 75 mg PO Q6H PRN PRN Reason: Anxiety Last Admin: 02/20/22 14:20 Dose: 75 mg Lamotrigine (Lamotrigine 25 Mg Tablet) 25 mg PO DAILY [facility] Last Admin: 02/20/22 08:41 Dose: 25 mg Lamotrigine (Lamotrigine 100 Mg Tablet) 100 mg PO DAILY [facility] Last Admin: 02/20/22 08:40 Dose: 100 mg Magnesium Hydroxide (Milk Of Magnesia 30 Ml Oral.Susp) 30 ml PO DAILY PRN PRN Reason: Constipation Methadone HCl (Methadone Hcl 20 Mg/2 Ml Oral.Conc) 125 mg PO DAILY [facility] Last Admin: 02/20/22 08:41 Dose: 125 mg Mirtazapine (Mirtazapine 15 Mg Tablet) 45 mg PO BEDTIME [facility] Last Admin: 02/19/22 20:43 Dose: 45 mg Multivitamins/Vitamin C (Multivitamin Tablet) 1 tab PO DAILY [facility] Last Admin: 02/20/22 08:40 Dose: 1 tab Nicotine Polacrilex (Nicotine Polacrilex 2 Mg Gum) 4 mg BUCCAL Q2H PRN PRN Reason: nicotine cravings Last Admin: 02/19/22 14:34 Dose: 4 mg Pat Own Med ( Lumateperone [ Caplyta] 1 Cap) 1 cap PO BEDTIME [facility] Last Admin: 02/19/22 20:46 Dose: 1 cap Ondansetron HCl (Ondansetron Odt 4 Mg Tab.Rapdis) 4 mg TRANSLINGU Q6H PRN PRN Reason: Nausea Prazosin HCl (Prazosin Hcl 1 Mg Capsule) 2 mg PO BEDTIME [facility]; Protocol Last Admin: 02/19/22 20:40 Dose: 2 mg Quetiapine Fumarate (Quetiapine Fumarate 300 Mg Tablet) 300 mg PO BEDTIME [facility] Last Admin: 02/19/22 20:43 Dose: 300 mg Quetiapine Fumarate (Quetiapine Fumarate 50 Mg Tablet) 50 mg PO TID PRN PRN Reason: anxiety, agitation Sumatriptan Succinate (Sumatriptan Succinate 50 Mg Tablet) 50 mg PO DAILY MRX1 PRN PRN Reason: Migraine Headache Trazodone HCl (Trazodone Hcl 50 Mg Tablet) 150 mg PO BEDTIME [facility] Last Admin: 02/19/22 20:40 Dose: 150 mg Allergies Allergies Allergy/AdvReac Type Severity Reaction Status Date / Time bee pollen [BEE STINGS] Allergy Severe Anaphylaxis Verified 12/30/21 19:45 codeine [CODEINE] Allergy Severe ANAPHYLAXIS Verified 12/30/21 19:45 Iodinated Contrast Media Allergy Severe DIFFICULTY Verified 12/30/21 19:45 [IV DYE, IODINE CONTAINING BREATHING CONTRAST ] Sulfa (Sulfonamide Allergy Severe ANAPHYLAXIS Verified 02/14/22 10:46 Antibiotics) [SULFA (SULFONAMIDE ANTIBIOTICS)] nut - unspecified [nut] Allergy Intermediate Rash Verified 12/30/21 19:45 shellfish derived Allergy Intermediate Rash Verified 12/30/21 19:45 fluoxetine [From Prozac] AdvReac Severe Migraine Verified 12/30/21 19:45 Fish Containing Products AdvReac Stomach Verified 02/13/22 08:43 Upset Assessment & Plan Assessment & Plan (1) HERSON (generalized anxiety disorder): Status: Acute Code(s): F41.1 - Generalized anxiety disorder (2) MDD (major depressive disorder), recurrent episode, moderate: Status: Acute Code(s): F33.1 - Major depressive disorder, recurrent, moderate (3) Opioid use disorder: Status: Acute Code(s): F11.90 - Opioid use, unspecified, uncomplicated (4) Cocaine use disorder: Status: Acute Code(s): F14.10 - Cocaine abuse, uncomplicated Plan Melita is a 41-year-old Female who carries a dx of polysubstance abuse, MDD recurrent, and HERSON. Denies alcohol abuse. 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 She presented to [facility] on 02/12/2022 c/o feeling depressed and suicidal, not taking most of her meds for 5 days and not going to the methadone clinic for 2 days. Reports no drug use in 4 to 5 days. Upon ED workup, pt found to have UTI, ceftin started. Utox positive for cocaine, fentanyl, and opiates. Of note, recent medical admission for acute kidney injury superimposed on CKD 11/2021. Has chronically elevated Creatinine, prev 1.7, however range goes up to 2.6. Plan: 02/13: re-start home meds, pt says she has been adherent with some of her meds including lamictal. Seen by addiction team, re-started on methadone.? 02/14: restart caplyta, increase seroquel to 50 mg TID PRN and vistaril to 75 mg TID PRN, may repeat EKG 02/15: Continue current treatment plan. 02/16/2022: Continue treatment plan. 02/17/2022: Start lexapro 10 mg for depression, anxiety. decrease gabapentin to 400 mg daily and Qnoon, continue it at 600 mg QHS and decrease clonidine to 0.1 mg TID due to sedation 02/18/2022: monitor med for benefit, no changes 02/19/2022: No changes, continues to feel more alert everyday, visible in milieu Q15 min safety checks, CV Monitor response to medications. Monitor for safety in the milieu. Discharge on stabilization. Patient seen. Chart reviewed. Discussed with team. Obtain collateral contact info as needed I spent minutes with the patient and/or on the patient floor today, greater than?50% of which was spent counseling/coordinating care. Reason for contiued inpatient stay Substantial Risk for: rapid decompensation and med/psych decompensation
[2022-02-20 06:00] VITALS: BP 122/66; PULSE 73; RESP 16; TEMP 36.4; O2SAT 98
[2022-02-20] MEDS: Multivitamin TABLET 1 TAB PO (08:40)
[2022-02-20] MEDS: lamoTRIgine 100 MG TABLET PO (08:40)
[2022-02-20] MEDS: cloNIDine HCL 0.1 MG TABLET PO ×3 (08:40→20:04)
[2022-02-20] MEDS: amLODIPine Besylate 10 MG TABLET PO (08:40)
[2022-02-20] MEDS: Gabapentin 400 MG CAPSULE PO ×2 (08:40→14:20)
[2022-02-20] MEDS: methADONE HCl 20 MG/2 ML ORAL.CONC 125 MG PO (08:41)
[2022-02-20] MEDS: lamoTRIgine 25 MG TABLET PO (08:41)
[2022-02-20] MEDS: Escitalopram Oxalate 10 MG TABLET PO (08:41)
[2022-02-20] MEDS: Acetaminophen 325 MG TABLET 650 MG PO (13:01)
[2022-02-20 13:11] VITALS: BMI 29.6
[2022-02-20] MEDS: hydrOXYzine HCL 25 MG TABLET 75 MG PO (14:20)
[2022-02-20 14:34] LABS: Amphetamine Screen Urine Not Detected (Not Detect); Barbiturates, Urine Not Detected (Not Detect); Benzodiazepines Screen Urine Not Detected (Not Detect); Cannabinoid Screen Urine Not Detected (Not Detect); Cocaine Screen Urine POSITIVE (Not Detect); Fentanyl, urine POSITIVE (Not Detect); Opiate Screen Urine Not Detected (Not Detect); Phencyclidine Screen Urine Not Detected (Not Detect)
--- NOTE | 2022-02-20 15:51 | PM.EVENT ---
Event Note Date of Service: 02/20/22 Event Note: Staff had some concerns that patient may be using on the unit, seeming to be overly sedated. Patient agreed to a urine drug screen which came back as positive for fentanyl and cocaine. For patient and unit safety, a room search was ordered and her visitors were restricted. Regarding lab work, fentanyl has a long half-life and could very easily be in her urine from use prior to this admission. Cocaine however is usually out of the system in 2-3 days and patient has been her for a week. That said, staff concerns have been from patient being overly sedated which makes the finding of cocaine surprising. Will try to order quantitative metabolites from lab which would likely be definitive. Also look into the literature to see if cocaine can linger in the system for longer than 3 days. If no contraban is found in patient's room, commercial underwriter recommends holding off on making conclusions.
--- NOTE | 2022-02-20 15:55 | HO.PSYCHPN ---
Subjective Subjective Date of Service: 02/20/22 Reason For Visit: Depression, SI Interim History: Spoke with pt's team, day shift concerned with pt's sedation/ nodding off, administered utox which was positive for fentanyl and cocaine, did room search and restricted visitors. I spoke with pt, she adamantly denies using on the unit. Says she hasnt had one visitor, how could i be so sedated with cocaine? Used cocaine prior to arrival at [facility], thinks fentanyl was in the coke, I didnt fucking use while here. Pt says she participated in group for the first time today, watched tv for a couple hours, spoke with her , he was going to come tomorrow for a visit, pt now feels deflated and withdrawn. Feels alright on medication. Wakes up and feels alert right away. Likes lexapro, feel like its working a little.? Medication Compliance: Yes Side effects from medications: No Attending Groups: Intermittent Review of Systems Acute medical concerns: No Medical Review of Systems: unchanged Mental Status Exam Mental Status Exam Narrative: In casual attire, overweight, okay grooming. Poor eye contact, inattentive. No Tics or Tremors. No abnormal involuntary movements. Calm, cooperative. Non-pressured speech, spontaneous with regular rate and rhythm, normal volume and prosody. No prolonged speech latency or dysarthria. Mood is ?upset,? affect is anxious. Denies SI/SIB/HI upon inquiry. Denies A/VH or delusional thought content. Thoughts are goal oriented, linear. No known cognitive or memory impairment. Insight/ Judgment fair and adequate. Diagnostics Vital Signs (24Hr): Vital Signs - 24 hr 02/19/22 20:15 02/20/22 06:00 Temperature 97.9 F 97.6 F Pulse Rate 57 73 Respiratory Rate 16 Blood Pressure 119/66 122/66 Pulse Oximetry 98 Oxygen Delivery Method Room Air BMI result Body Mass Index 29.6 Labs Results: 02/17/22 08:13 02/13/22 09:03 Labs: Laboratory Results - last 48 hr 02/20/22 14:05 Urine Opiates Screen Not Detected Urine Fentanyl Screen POSITIVE H Ur Barbiturates Screen Not Detected Ur Phencyclidine Scrn Not Detected Ur Amphetamines Screen Not Detected U Benzodiazepines Scrn Not Detected Urine Cocaine Screen POSITIVE H U Marijuana (THC) Screen Not Detected Medications Medications Current Medications Acetaminophen (Acetaminophen 325 Mg Tablet) 650 mg PO Q6H PRN PRN Reason: Headache/Pain Mild Scale (1-3) Last Admin: 02/20/22 13:01 Dose: 650 mg Al Hydroxide/Mg Hydroxide (Magnesium Hydrox/Alum Hydrox 30 Ml Oral.Susp) 30 ml PO Q6H PRN PRN Reason: Heartburn/Nausea Amlodipine Besylate (Amlodipine Besylate 10 Mg Tablet) 10 mg PO DAILY [facility]; Protocol Last Admin: 02/20/22 08:40 Dose: 10 mg Artificial Tears (Artificial Tears 15 Ml Drops) 1 drop EYE-BOTH Q4H PRN PRN Reason: Dry Eyes Clonidine HCl (Clonidine Hcl 0.1 Mg Tablet) 0.1 mg PO TID [facility]PL[facility]; Protocol Last Admin: 02/20/22 14:20 Dose: 0.1 mg Enoxaparin Sodium (Enoxaparin Sodium 120 Mg/0.8 Ml Syringe) 120 mg SUBCUT Q24H [facility] Last Admin: 02/19/22 18:00 Dose: Not Given Escitalopram Oxalate (Escitalopram Oxalate 10 Mg Tablet) 10 mg PO DAILY [facility] Last Admin: 02/20/22 08:41 Dose: 10 mg Fluconazole (Fluconazole 50 Mg Tablet) 50 mg PO DAILY [facility] Last Admin: 02/20/22 08:41 Dose: 50 mg Gabapentin (Gabapentin 600 Mg Tablet) 600 mg PO BEDTIME [facility]PLACED [facility] Last Admin: 02/19/22 20:40 Dose: 600 mg Gabapentin (Gabapentin 400 Mg Capsule) 400 mg PO BID@0800,1500 [facility]PL[facility] Last Admin: 02/20/22 14:20 Dose: 400 mg Hydroxyzine HCl (Hydroxyzine Hcl 25 Mg Tablet) 75 mg PO Q6H PRN PRN Reason: Anxiety Last Admin: 02/20/22 14:20 Dose: 75 mg Lamotrigine (Lamotrigine 25 Mg Tablet) 25 mg PO DAILY [facility] Last Admin: 02/20/22 08:41 Dose: 25 mg Lamotrigine (Lamotrigine 100 Mg Tablet) 100 mg PO DAILY [facility] Last Admin: 02/20/22 08:40 Dose: 100 mg Magnesium Hydroxide (Milk Of Magnesia 30 Ml Oral.Susp) 30 ml PO DAILY PRN PRN Reason: Constipation Methadone HCl (Methadone Hcl 20 Mg/2 Ml Oral.Conc) 125 mg PO DAILY [facility] Last Admin: 02/20/22 08:41 Dose: 125 mg Mirtazapine (Mirtazapine 15 Mg Tablet) 45 mg PO BEDTIME [facility] Last Admin: 02/19/22 20:43 Dose: 45 mg Multivitamins/Vitamin C (Multivitamin Tablet) 1 tab PO DAILY [facility] Last Admin: 02/20/22 08:40 Dose: 1 tab Nicotine Polacrilex (Nicotine Polacrilex 2 Mg Gum) 4 mg BUCCAL Q2H PRN PRN Reason: nicotine cravings Last Admin: 02/19/22 14:34 Dose: 4 mg Pat Own Med ( Lumateperone [ Caplyta] 1 Cap) 1 cap PO BEDTIME [facility] Last Admin: 02/19/22 20:46 Dose: 1 cap Ondansetron HCl (Ondansetron Odt 4 Mg Tab.Rapdis) 4 mg TRANSLINGU Q6H PRN PRN Reason: Nausea Prazosin HCl (Prazosin Hcl 1 Mg Capsule) 2 mg PO BEDTIME [facility]PLACED BY [facility]; Protocol Last Admin: 02/19/22 20:40 Dose: 2 mg Quetiapine Fumarate (Quetiapine Fumarate 300 Mg Tablet) 300 mg PO BEDTIME [facility] Last Admin: 02/19/22 20:43 Dose: 300 mg Quetiapine Fumarate (Quetiapine Fumarate 50 Mg Tablet) 50 mg PO TID PRN PRN Reason: anxiety, agitation Sumatriptan Succinate (Sumatriptan Succinate 50 Mg Tablet) 50 mg PO DAILY MRX1 PRN PRN Reason: Migraine Headache Trazodone HCl (Trazodone Hcl 50 Mg Tablet) 150 mg PO BEDTIME REPLACED BY [facility] Last Admin: 02/19/22 20:40 Dose: 150 mg Allergies Allergies Allergy/AdvReac Type Severity Reaction Status Date / Time bee pollen [BEE STINGS] Allergy Severe Anaphylaxis Verified 12/30/21 19:45 codeine [CODEINE] Allergy Severe ANAPHYLAXIS Verified 12/30/21 19:45 Iodinated Contrast Media Allergy Severe DIFFICULTY Verified 12/30/21 19:45 [IV DYE, IODINE CONTAINING BREATHING CONTRAST ] Sulfa (Sulfonamide Allergy Severe ANAPHYLAXIS Verified 02/14/22 10:46 Antibiotics) [SULFA (SULFONAMIDE ANTIBIOTICS)] nut - unspecified [nut] Allergy Intermediate Rash Verified 12/30/21 19:45 shellfish derived Allergy Intermediate Rash Verified 12/30/21 19:45 fluoxetine [From Prozac] AdvReac Severe Migraine Verified 12/30/21 19:45 Fish Containing Products AdvReac Stomach Verified 02/13/22 08:43 Upset Assessment & Plan Assessment & Plan (1) HERSON (generalized anxiety disorder): Status: Acute Code(s): F41.1 - Generalized anxiety disorder (2) MDD (major depressive disorder), recurrent episode, moderate: Status: Acute Code(s): F33.1 - Major depressive disorder, recurrent, moderate (3) Opioid use disorder: Status: Acute Code(s): F11.90 - Opioid use, unspecified, uncomplicated (4) Cocaine use disorder: Status: Acute Code(s): F14.10 - Cocaine abuse, uncomplicated Plan Melita is a 41-year-old Female who carries a dx of polysubstance abuse, MDD recurrent, and HERSON. Denies alcohol abuse. 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 She presented to [facility] on 02/12/2022 c/o feeling depressed and suicidal, not taking most of her meds for 5 days and not going to the methadone clinic for 2 days. Reports no drug use in 4 to 5 days. Upon ED workup, pt found to have UTI, ceftin started. Utox positive for cocaine, fentanyl, and opiates. Of note, recent medical admission for acute kidney injury superimposed on CKD 11/2021. Has chronically elevated Creatinine, prev 1.7, however range goes up to 2.6. Plan: 02/13: re-start home meds, pt says she has been adherent with some of her meds including lamictal. Seen by addiction team, re-started on methadone.? 02/14: restart caplyta, increase seroquel to 50 mg TID PRN and vistaril to 75 mg TID PRN, may repeat EKG 02/15: Continue current treatment plan. 02/16/2022: Continue treatment plan. 02/17/2022: Start lexapro 10 mg for depression, anxiety. decrease gabapentin to 400 mg daily and Qnoon, continue it at 600 mg QHS and decrease clonidine to 0.1 mg TID due to sedation 02/18/2022: monitor med for benefit, no changes 02/19/2022: No changes, continues to feel more alert everyday, visible in milieu 02/20/2022: pt denies using illicit substances on the unit, pending utox for metabolites of fentanyl and cocaine as this is a send out to [facility] Q15 min safety checks, CV Monitor response to medications. Monitor for safety in the milieu. Discharge on stabilization. Patient seen. Chart reviewed. Discussed with team. Obtain collateral contact info as needed I spent minutes with the patient and/or on the patient floor today, greater than?50% of which was spent counseling/coordinating care. Reason for contiued inpatient stay Substantial Risk for: rapid decompensation and med/psych decompensation
[2022-02-20 19:59] VITALS: BP 127/69; PULSE 58
[2022-02-20] MEDS: traZODone HCL 50 MG TABLET 150 MG PO (20:04)
[2022-02-20] MEDS: Gabapentin 600 MG TABLET PO (20:04)
[2022-02-20] MEDS: Prazosin HCL 1 MG CAPSULE 2 MG PO (20:04)
[2022-02-20] MEDS: Mirtazapine 15 MG TABLET 45 MG PO (20:05)
[2022-02-20] MEDS: QUEtiapine Fumarate 300 MG TABLET PO (20:05)
[2022-02-21] MEDS: methADONE HCl 20 MG/2 ML ORAL.CONC 125 MG PO (08:42)
[2022-02-21] MEDS: lamoTRIgine 25 MG TABLET PO (08:43)
[2022-02-21] MEDS: cloNIDine HCL 0.1 MG TABLET PO ×3 (08:43→19:11)
[2022-02-21] MEDS: lamoTRIgine 100 MG TABLET PO (08:43)
[2022-02-21] MEDS: Escitalopram Oxalate 10 MG TABLET PO (08:43)
[2022-02-21] MEDS: Gabapentin 400 MG CAPSULE PO ×2 (08:43→14:26)
[2022-02-21] MEDS: amLODIPine Besylate 10 MG TABLET PO (08:43)
[2022-02-21] MEDS: Multivitamin TABLET 1 TAB PO (08:43)
[2022-02-21 08:48] VITALS: BP 133/78; PULSE 78; RESP 18; TEMP 36.3; O2SAT 94
[2022-02-21] MEDS: Ondansetron ODT 4 MG TAB.RAPDIS TRANSLINGU (11:43)
[2022-02-21] MEDS: SUMAtriptan succinate 50 MG TABLET PO (11:43)
[2022-02-21] MEDS: QUEtiapine Fumarate 50 MG TABLET PO (11:43)
[2022-02-21] MEDS: hydrOXYzine HCL 25 MG TABLET 75 MG PO (14:26)
[2022-02-21 18:00] VITALS: BP 105/57; PULSE 52; TEMP 36.6
--- NOTE | 2022-02-21 18:33 | HO.PSYCHPN ---
Subjective Subjective Date of Service: 02/21/22 Reason For Visit: Depression, SI Subjective Notes: Swain Warning Interim History: I spoke with pt's team, she was visible in milieu in the daytime but withdrawn this evening. I spoke with pt, says she didnt sleep well last night, has mostly been in her room because she feels really tired. Says she has been trying to nap today, however I would just fall asleep and someone would come into the room and do checks. Pt does not want med changes, I feel like they're alright. Complains of anxiety but attributes this to situational stress, reports benefit on her PRN vistaril and seroquel. ? Medication Compliance: Yes Side effects from medications: No Attending Groups: Intermittent Review of Systems Acute medical concerns: No Medical Review of Systems: unchanged Mental Status Exam Mental Status Exam Narrative: In casual attire, overweight, okay grooming. Poor eye contact, inattentive. No Tics or Tremors. No abnormal involuntary movements. Calm, cooperative. Non-pressured speech, spontaneous with regular rate and rhythm, normal volume and prosody. No prolonged speech latency or dysarthria. Mood is ?anxious,? affect is anxious. Denies SI/SIB/HI upon inquiry. Denies A/VH or delusional thought content. Thoughts are goal oriented, linear. No known cognitive or memory impairment. Insight/ Judgment fair and adequate. Diagnostics Vital Signs (24Hr): Vital Signs - 24 hr 02/20/22 19:59 02/21/22 08:48 02/21/22 18:00 Temperature 97.4 F 98 F Pulse Rate 58 78 52 Respiratory Rate 18 Blood Pressure 127/69 133/78 105/57 L Pulse Oximetry 94 Oxygen Delivery Method Room Air BMI result Body Mass Index 29.6 Labs Results: 02/17/22 08:13 02/13/22 09:03 Labs: Laboratory Results - last 48 hr 02/20/22 14:05 Urine Opiates Screen Not Detected Urine Fentanyl Screen POSITIVE H Ur Barbiturates Screen Not Detected Ur Phencyclidine Scrn Not Detected Ur Amphetamines Screen Not Detected U Benzodiazepines Scrn Not Detected Urine Cocaine Screen POSITIVE H U Marijuana (THC) Screen Not Detected Medications Medications Current Medications Acetaminophen (Acetaminophen 325 Mg Tablet) 650 mg PO Q6H PRN PRN Reason: Headache/Pain Mild Scale (1-3) Last Admin: 02/20/22 13:01 Dose: 650 mg Al Hydroxide/Mg Hydroxide (Magnesium Hydrox/Alum Hydrox 30 Ml Oral.Susp) 30 ml PO Q6H PRN PRN Reason: Heartburn/Nausea Amlodipine Besylate (Amlodipine Besylate 10 Mg Tablet) 10 mg PO DAILY [facility]; Protocol Last Admin: 02/21/22 08:43 Dose: 10 mg Artificial Tears (Artificial Tears 15 Ml Drops) 1 drop EYE-BOTH Q4H PRN PRN Reason: Dry Eyes Clonidine HCl (Clonidine Hcl 0.1 Mg Tablet) 0.1 mg PO TID [facility]; Protocol Last Admin: 02/21/22 14:26 Dose: 0.1 mg Enoxaparin Sodium (Enoxaparin Sodium 120 Mg/0.8 Ml Syringe) 120 mg SUBCUT Q24H [facility] Last Admin: 02/21/22 16:01 Dose: Not Given Escitalopram Oxalate (Escitalopram Oxalate 10 Mg Tablet) 10 mg PO DAILY [facility] Last Admin: 02/21/22 08:43 Dose: 10 mg Fluconazole (Fluconazole 50 Mg Tablet) 50 mg PO DAILY [facility] Last Admin: 02/21/22 08:43 Dose: 50 mg Gabapentin (Gabapentin 600 Mg Tablet) 600 mg PO BEDTIME [facility] Last Admin: 02/20/22 20:04 Dose: 600 mg Gabapentin (Gabapentin 400 Mg Capsule) 400 mg PO BID@0800,1500 [facility] Last Admin: 02/21/22 14:26 Dose: 400 mg Hydroxyzine HCl (Hydroxyzine Hcl 25 Mg Tablet) 75 mg PO Q6H PRN PRN Reason: Anxiety Last Admin: 02/21/22 14:26 Dose: 75 mg Lamotrigine (Lamotrigine 25 Mg Tablet) 25 mg PO DAILY [facility] Last Admin: 02/21/22 08:43 Dose: 25 mg Lamotrigine (Lamotrigine 100 Mg Tablet) 100 mg PO DAILY [facility] Last Admin: 02/21/22 08:43 Dose: 100 mg Magnesium Hydroxide (Milk Of Magnesia 30 Ml Oral.Susp) 30 ml PO DAILY PRN PRN Reason: Constipation Methadone HCl (Methadone Hcl 20 Mg/2 Ml Oral.Conc) 125 mg PO DAILY [facility] Last Admin: 02/21/22 08:42 Dose: 125 mg Mirtazapine (Mirtazapine 15 Mg Tablet) 45 mg PO BEDTIME [facility] Last Admin: 02/20/22 20:05 Dose: 45 mg Multivitamins/Vitamin C (Multivitamin Tablet) 1 tab PO DAILY [facility] Last Admin: 02/21/22 08:43 Dose: 1 tab Nicotine Polacrilex (Nicotine Polacrilex 2 Mg Gum) 4 mg BUCCAL Q2H PRN PRN Reason: nicotine cravings Last Admin: 02/19/22 14:34 Dose: 4 mg Pat Own Med ( Lumateperone [ Caplyta] 1 Cap) 1 cap PO BEDTIME [facility] Last Admin: 02/20/22 20:04 Dose: 1 cap Ondansetron HCl (Ondansetron Odt 4 Mg Tab.Rapdis) 4 mg TRANSLINGU Q6H PRN PRN Reason: Nausea Last Admin: 02/21/22 11:43 Dose: 4 mg Prazosin HCl (Prazosin Hcl 1 Mg Capsule) 2 mg PO BEDTIME [facility]; Protocol Last Admin: 02/20/22 20:04 Dose: 2 mg Quetiapine Fumarate (Quetiapine Fumarate 300 Mg Tablet) 300 mg PO BEDTIME [facility] Last Admin: 02/20/22 20:05 Dose: 300 mg Quetiapine Fumarate (Quetiapine Fumarate 50 Mg Tablet) 50 mg PO TID PRN PRN Reason: anxiety, agitation Last Admin: 02/21/22 11:43 Dose: 50 mg Sumatriptan Succinate (Sumatriptan Succinate 50 Mg Tablet) 50 mg PO DAILY MRX1 PRN PRN Reason: Migraine Headache Last Admin: 02/21/22 11:43 Dose: 50 mg Trazodone HCl (Trazodone Hcl 50 Mg Tablet) 150 mg PO BEDTIME [facility] Last Admin: 02/20/22 20:04 Dose: 150 mg Allergies Allergies Allergy/AdvReac Type Severity Reaction Status Date / Time bee pollen [BEE STINGS] Allergy Severe Anaphylaxis Verified 12/30/21 19:45 codeine [CODEINE] Allergy Severe ANAPHYLAXIS Verified 12/30/21 19:45 Iodinated Contrast Media Allergy Severe DIFFICULTY Verified 12/30/21 19:45 [IV DYE, IODINE CONTAINING BREATHING CONTRAST ] Sulfa (Sulfonamide Allergy Severe ANAPHYLAXIS Verified 02/14/22 10:46 Antibiotics) [SULFA (SULFONAMIDE ANTIBIOTICS)] nut - unspecified [nut] Allergy Intermediate Rash Verified 12/30/21 19:45 shellfish derived Allergy Intermediate Rash Verified 12/30/21 19:45 fluoxetine [From Prozac] AdvReac Severe Migraine Verified 12/30/21 19:45 Fish Containing Products AdvReac Stomach Verified 02/13/22 08:43 Upset Assessment & Plan Assessment & Plan (1) HERSON (generalized anxiety disorder): Status: Acute Code(s): F41.1 - Generalized anxiety disorder (2) MDD (major depressive disorder), recurrent episode, moderate: Status: Acute Code(s): F33.1 - Major depressive disorder, recurrent, moderate (3) Opioid use disorder: Status: Acute Code(s): F11.90 - Opioid use, unspecified, uncomplicated (4) Cocaine use disorder: Status: Acute Code(s): F14.10 - Cocaine abuse, uncomplicated Plan Melita is a 41-year-old Female who carries a dx of polysubstance abuse, MDD recurrent, and HERSON. Denies alcohol abuse. 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 She presented to [facility] on 02/12/2022 c/o feeling depressed and suicidal, not taking most of her meds for 5 days and not going to the methadone clinic for 2 days. Reports no drug use in 4 to 5 days. Upon ED workup, pt found to have UTI, ceftin started. Utox positive for cocaine, fentanyl, and opiates. Of note, recent medical admission for acute kidney injury superimposed on CKD 11/2021. Has chronically elevated Creatinine, prev 1.7, however range goes up to 2.6. Plan: 02/13: re-start home meds, pt says she has been adherent with some of her meds including lamictal. Seen by addiction team, re-started on methadone.? 02/14: restart caplyta, increase seroquel to 50 mg TID PRN and vistaril to 75 mg TID PRN, may repeat EKG 02/15: Continue current treatment plan. 02/16/2022: Continue treatment plan. 02/17/2022: Start lexapro 10 mg for depression, anxiety. decrease gabapentin to 400 mg daily and Qnoon, continue it at 600 mg QHS and decrease clonidine to 0.1 mg TID due to sedation 02/18/2022: monitor med for benefit, no changes 02/19/2022: No changes, continues to feel more alert everyday, visible in milieu 02/20/2022: pt denies using illicit substances on the unit, pending utox for metabolites of fentanyl and cocaine as [facility] 02/21/2022: No med changes, continue to monitor for sedation Q15 min safety checks, CV Monitor response to medications. Monitor for safety in the milieu. Discharge on stabilization. Patient seen. Chart reviewed. Discussed with team. Obtain collateral contact info as needed I spent minutes with the patient and/or on the patient floor today, greater than?50% of which was spent counseling/coordinating care. Patient educated on: diagnosis, medication risk/benefits and therapeutic strategies Reason for contiued inpatient stay Substantial Risk for: harm to self, rapid decompensation and med/psych decompensation
[2022-02-21 19:08] VITALS: BP 112/67; PULSE 61
[2022-02-21] MEDS: traZODone HCL 50 MG TABLET 150 MG PO (19:10)
[2022-02-21] MEDS: Mirtazapine 15 MG TABLET 45 MG PO (19:10)
[2022-02-21] MEDS: Gabapentin 600 MG TABLET PO (19:11)
[2022-02-21] MEDS: Prazosin HCL 1 MG CAPSULE 2 MG PO (19:11)
[2022-02-21] MEDS: QUEtiapine Fumarate 300 MG TABLET PO (19:11)
[2022-02-22] MEDS: Multivitamin TABLET 1 TAB PO (08:50)
[2022-02-22] MEDS: lamoTRIgine 25 MG TABLET PO (08:50)
[2022-02-22] MEDS: Escitalopram Oxalate 10 MG TABLET PO (08:50)
[2022-02-22] MEDS: cloNIDine HCL 0.1 MG TABLET PO ×3 (08:50→20:20)
[2022-02-22] MEDS: amLODIPine Besylate 10 MG TABLET PO (08:50)
[2022-02-22] MEDS: lamoTRIgine 100 MG TABLET PO (08:50)
[2022-02-22] MEDS: hydrOXYzine HCL 25 MG TABLET 75 MG PO ×2 (08:50→16:17)
[2022-02-22] MEDS: Gabapentin 400 MG CAPSULE PO ×2 (08:51→15:57)
[2022-02-22] MEDS: Nicotine Polacrilex 2 MG GUM 4 MG BUCCAL (08:51)
[2022-02-22] MEDS: methADONE HCl 20 MG/2 ML ORAL.CONC 125 MG PO (08:53)
--- NOTE | 2022-02-22 10:46 | P.PNPSI_ITS ---
Subjective Subjective Date of Service: 02/22/22 Reason For Visit: Depression, SI Interim History: pt reorts her mood is a little better; she can tell since she's no longer staying in bed all day but getting up early and out and about in the milue. Pt denies any SI. She brings up that she was drug tested the other day and does not understand why it was positive, says why would i be eager to give a urine test if used on the unit? Mental Status Exam Mental Status Exam Narrative: In casual attire, overweight, okay grooming. appropriate eye contact,. No Tics or Tremors. No abnormal involuntary movements. Calm, cooperative. Non-pressured speech, spontaneous with regular rate and rhythm, normal volume and prosody. No prolonged speech latency or dysarthria. Mood is ?better,? affect is congruent, calmer. Denies SI/SIB/HI upon inquiry. Denies A/VH or delusional thought content. Thoughts are goal oriented, linear. No known cognitive or memory impairment. Insight/ Judgment fair and adequate. Diagnostics Vital Signs (24Hr): Vital Signs - 24 hr 02/21/22 18:00 02/21/22 19:08 Temperature 98 F Pulse Rate 52 61 Blood Pressure 105/57 L 112/67 BMI result Body Mass Index 29.6 Labs Results: 02/17/22 08:13 02/13/22 09:03 Labs: Laboratory Results - last 48 hr 02/20/22 14:05 Urine Opiates Screen Not Detected Urine Fentanyl Screen POSITIVE H Ur Barbiturates Screen Not Detected Ur Phencyclidine Scrn Not Detected Ur Amphetamines Screen Not Detected U Benzodiazepines Scrn Not Detected Urine Cocaine Screen POSITIVE H U Marijuana (THC) Screen Not Detected Medications Medications Current Medications Acetaminophen (Acetaminophen 325 Mg Tablet) 650 mg PO Q6H PRN PRN Reason: Headache/Pain Mild Scale (1-3) Last Admin: 02/20/22 13:01 Dose: 650 mg Al Hydroxide/Mg Hydroxide (Magnesium Hydrox/Alum Hydrox 30 Ml Oral.Susp) 30 ml PO Q6H PRN PRN Reason: Heartburn/Nausea Amlodipine Besylate (Amlodipine Besylate 10 Mg Tablet) 10 mg PO DAILY [facility]; Protocol Last Admin: 02/22/22 08:50 Dose: 10 mg Artificial Tears (Artificial Tears 15 Ml Drops) 1 drop EYE-BOTH Q4H PRN PRN Reason: Dry Eyes Clonidine HCl (Clonidine Hcl 0.1 Mg Tablet) 0.1 mg PO TID [facility]; Protocol Last Admin: 02/22/22 08:50 Dose: 0.1 mg Enoxaparin Sodium (Enoxaparin Sodium 120 Mg/0.8 Ml Syringe) 120 mg SUBCUT Q24H [facility] Last Admin: 02/21/22 16:01 Dose: Not Given Escitalopram Oxalate (Escitalopram Oxalate 10 Mg Tablet) 10 mg PO DAILY [facility] Last Admin: 02/22/22 08:50 Dose: 10 mg Fluconazole (Fluconazole 50 Mg Tablet) 50 mg PO DAILY [facility] Last Admin: 02/22/22 08:51 Dose: 50 mg Gabapentin (Gabapentin 600 Mg Tablet) 600 mg PO BEDTIME [facility] Last Admin: 02/21/22 19:11 Dose: 600 mg Gabapentin (Gabapentin 400 Mg Capsule) 400 mg PO BID@0800,1500 [facility] Last Admin: 02/22/22 08:51 Dose: 400 mg Hydroxyzine HCl (Hydroxyzine Hcl 25 Mg Tablet) 75 mg PO Q6H PRN PRN Reason: Anxiety Last Admin: 02/22/22 08:50 Dose: 75 mg Lamotrigine (Lamotrigine 25 Mg Tablet) 25 mg PO DAILY [facility] Last Admin: 02/22/22 08:50 Dose: 25 mg Lamotrigine (Lamotrigine 100 Mg Tablet) 100 mg PO DAILY [facility] Last Admin: 02/22/22 08:50 Dose: 100 mg Magnesium Hydroxide (Milk Of Magnesia 30 Ml Oral.Susp) 30 ml PO DAILY PRN PRN Reason: Constipation Methadone HCl (Methadone Hcl 20 Mg/2 Ml Oral.Conc) 125 mg PO DAILY [facility] Last Admin: 02/22/22 08:53 Dose: 125 mg Mirtazapine (Mirtazapine 15 Mg Tablet) 45 mg PO BEDTIME [facility] Last Admin: 02/21/22 19:10 Dose: 45 mg Multivitamins/Vitamin C (Multivitamin Tablet) 1 tab PO DAILY [facility] Last Admin: 02/22/22 08:50 Dose: 1 tab Nicotine Polacrilex (Nicotine Polacrilex 2 Mg Gum) 4 mg BUCCAL Q2H PRN PRN Reason: nicotine cravings Last Admin: 02/22/22 08:51 Dose: 4 mg Pat Own Med ( Lumateperone [ Caplyta] 1 Cap) 1 cap PO BEDTIME [facility] Last Admin: 02/21/22 19:11 Dose: 1 cap Ondansetron HCl (Ondansetron Odt 4 Mg Tab.Rapdis) 4 mg TRANSLINGU Q6H PRN PRN Reason: Nausea Last Admin: 02/21/22 11:43 Dose: 4 mg Prazosin HCl (Prazosin Hcl 1 Mg Capsule) 2 mg PO BEDTIME [facility]; Protocol Last Admin: 02/21/22 19:11 Dose: 2 mg Quetiapine Fumarate (Quetiapine Fumarate 300 Mg Tablet) 300 mg PO BEDTIME [facility] Last Admin: 02/21/22 19:11 Dose: 300 mg Quetiapine Fumarate (Quetiapine Fumarate 50 Mg Tablet) 50 mg PO TID PRN PRN Reason: anxiety, agitation Last Admin: 02/21/22 11:43 Dose: 50 mg Sumatriptan Succinate (Sumatriptan Succinate 50 Mg Tablet) 50 mg PO DAILY MRX1 PRN PRN Reason: Migraine Headache Last Admin: 02/21/22 11:43 Dose: 50 mg Trazodone HCl (Trazodone Hcl 50 Mg Tablet) 150 mg PO BEDTIME [facility] Last Admin: 02/21/22 19:10 Dose: 150 mg Allergies Allergies Allergy/AdvReac Type Severity Reaction Status Date / Time bee pollen [BEE STINGS] Allergy Severe Anaphylaxis Verified 12/30/21 19:45 codeine [CODEINE] Allergy Severe ANAPHYLAXIS Verified 12/30/21 19:45 Iodinated Contrast Media Allergy Severe DIFFICULTY Verified 12/30/21 19:45 [IV DYE, IODINE CONTAINING BREATHING CONTRAST ] Sulfa (Sulfonamide Allergy Severe ANAPHYLAXIS Verified 02/14/22 10:46 Antibiotics) [SULFA (SULFONAMIDE ANTIBIOTICS)] nut - unspecified [nut] Allergy Intermediate Rash Verified 12/30/21 19:45 shellfish derived Allergy Intermediate Rash Verified 12/30/21 19:45 fluoxetine [From Prozac] AdvReac Severe Migraine Verified 12/30/21 19:45 Fish Containing Products AdvReac Stomach Verified 02/13/22 08:43 Upset Assessment & Plan Assessment & Plan (1) HERSON (generalized anxiety disorder): Status: Acute Code(s): F41.1 - Generalized anxiety disorder (2) MDD (major depressive disorder), recurrent episode, moderate: Status: Acute Code(s): F33.1 - Major depressive disorder, recurrent, moderate (3) Opioid use disorder: Status: Acute Code(s): F11.90 - Opioid use, unspecified, uncomplicated (4) Cocaine use disorder: Status: Acute Code(s): F14.10 - Cocaine abuse, uncomplicated Plan Melita is a 41-year-old Female who carries a dx of polysubstance abuse, MDD recurrent, and HERSON. Denies alcohol abuse. 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 She presented to [facility] ED on 02/12/2022 c/o feeling depressed and suicidal, not taking most of her meds for 5 days and not going to the methadone clinic for 2 days. Reports no drug use in 4 to 5 days. Upon ED workup, pt found to have UTI, ceftin started. Utox positive for cocaine, fentanyl, and opiates. Of note, recent medical admission for acute kidney injury superimposed on CKD 11/2021. Has chronically elevated Creatinine, prev 1.7, however range goes up to 2.6. Plan: 02/13: re-start home meds, pt says she has been adherent with some of her meds including lamictal. Seen by addiction team, re-started on methadone.? 02/14: restart caplyta, increase seroquel to 50 mg TID PRN and vistaril to 75 mg TID PRN, may repeat EKG 02/15: Continue current treatment plan. 02/16/2022: Continue treatment plan. 02/17/2022: Start lexapro 10 mg for depression, anxiety. decrease gabapentin to 400 mg daily and Qnoon, continue it at 600 mg QHS and decrease clonidine to 0.1 mg TID due to sedation 02/18/2022: monitor med for benefit, no changes 02/19/2022: No changes, continues to feel more alert everyday, visible in milieu 02/20/2022: pt denies using illicit substances on the unit, pending utox for metabolites of fentanyl and cocaine as [facility] 02/21/2022: No med changes, continue to monitor for sedation 02/22 says mood is better; no SI; pt is more out in milue and no longer in bed all day Q15 min safety checks, CV Monitor response to medications. Monitor for safety in the milieu. Discharge on stabilization. Patient seen. Chart reviewed. Discussed with team. Obtain collateral contact info as needed I spent minutes with the patient and/or on the patient floor today, greater than?50% of which was spent counseling/coordinating care. Patient educated on: diagnosis, medication risk/benefits and substance abuse Informed Consent: understands Reason for contiued inpatient stay Substantial Risk for: med/psych decompensation
[2022-02-22] MEDS: QUEtiapine Fumarate 50 MG TABLET PO (13:37)
[2022-02-22] MEDS: SUMAtriptan succinate 50 MG TABLET PO (16:18)
[2022-02-22] MEDS: Ondansetron ODT 4 MG TAB.RAPDIS TRANSLINGU (16:18)
[2022-02-22 18:00] VITALS: BP 114/61; PULSE 58; RESP 16; TEMP 36.8; O2SAT 99
[2022-02-22] MEDS: QUEtiapine Fumarate 300 MG TABLET PO (20:20)
[2022-02-22] MEDS: Gabapentin 600 MG TABLET PO (20:20)
[2022-02-22] MEDS: Mirtazapine 15 MG TABLET 45 MG PO (20:20)
[2022-02-22] MEDS: Prazosin HCL 1 MG CAPSULE 2 MG PO (20:20)
[2022-02-22] MEDS: traZODone HCL 50 MG TABLET 150 MG PO (20:21)
[2022-02-23 06:00] VITALS: BP 112/70; PULSE 61; RESP 18; O2SAT 94
[2022-02-23] MEDS: Acetaminophen 325 MG TABLET 650 MG PO (06:34)
[2022-02-23] MEDS: Gabapentin 400 MG CAPSULE PO ×2 (08:28→14:03)
[2022-02-23] MEDS: cloNIDine HCL 0.1 MG TABLET PO ×3 (08:28→20:10)
[2022-02-23] MEDS: lamoTRIgine 100 MG TABLET PO (08:29)
[2022-02-23] MEDS: amLODIPine Besylate 10 MG TABLET PO (08:29)
[2022-02-23] MEDS: Multivitamin TABLET 1 TAB PO (08:29)
[2022-02-23] MEDS: Ondansetron ODT 4 MG TAB.RAPDIS TRANSLINGU (08:29)
[2022-02-23] MEDS: lamoTRIgine 25 MG TABLET PO (08:29)
[2022-02-23] MEDS: hydrOXYzine HCL 25 MG TABLET 75 MG PO (08:29)
[2022-02-23] MEDS: Escitalopram Oxalate 10 MG TABLET PO (08:29)
[2022-02-23] MEDS: methADONE HCl 20 MG/2 ML ORAL.CONC 125 MG PO (08:34)
[2022-02-23] MEDS: QUEtiapine Fumarate 50 MG TABLET PO (14:03)
--- NOTE | 2022-02-23 14:55 | HO.PSYCHPN ---
Subjective Subjective Date of Service: 02/23/22 Reason For Visit: Depression, SI Interim History: Patient reports that her mood a lot better. She said she got up at 06:30 this morning and has been out of her room, not returning until close to noon today. Patient denies any SI. Patient says she still has some trouble staying asleep and often wakes up Throughout the night sometimes hard to fall back asleep. She agrees to added clonidine 0.1 mg as a p.r.n. for early waking. Patient says she just waiting for a program. She asks if her quantitative lab work is back, expecting to be exonerated. Mental Status Exam Mental Status Exam Narrative: In casual attire, overweight, okay grooming. appropriate eye contact,. No Tics or Tremors. No abnormal involuntary movements. Calm, cooperative. Non-pressured speech, spontaneous with regular rate and rhythm, normal volume and prosody. No prolonged speech latency or dysarthria. Mood is ?a lot better,? affect is congruent, calmer. Denies SI/SIB/HI upon inquiry. Denies A/VH or delusional thought content. Thoughts are goal oriented, linear. No known cognitive or memory impairment. Insight/ Judgment fair and adequate. Diagnostics Vital Signs (24Hr): Vital Signs - 24 hr 02/22/22 18:00 02/23/22 06:00 Temperature 98.3 F Pulse Rate 58 61 Respiratory Rate 16 18 Blood Pressure 114/61 112/70 Pulse Oximetry 99 94 Oxygen Delivery Method Room Air Room Air BMI result Body Mass Index 29.6 Labs Results: 02/17/22 08:13 02/13/22 09:03 Medications Medications Current Medications Acetaminophen (Acetaminophen 325 Mg Tablet) 650 mg PO Q6H PRN PRN Reason: Headache/Pain Mild Scale (1-3) Last Admin: 02/23/22 06:34 Dose: 650 mg Al Hydroxide/Mg Hydroxide (Magnesium Hydrox/Alum Hydrox 30 Ml Oral.Susp) 30 ml PO Q6H PRN PRN Reason: Heartburn/Nausea Amlodipine Besylate (Amlodipine Besylate 10 Mg Tablet) 10 mg PO DAILY [facility]; Protocol Last Admin: 02/23/22 08:29 Dose: 10 mg Artificial Tears (Artificial Tears 15 Ml Drops) 1 drop EYE-BOTH Q4H PRN PRN Reason: Dry Eyes Clonidine HCl (Clonidine Hcl 0.1 Mg Tablet) 0.1 mg PO TID [facility]; Protocol Last Admin: 02/23/22 14:03 Dose: 0.1 mg Clonidine HCl (Clonidine Hcl 0.1 Mg Tablet) 0.1 mg PO DAILY PRN; Protocol PRN Reason: Insomnia/anxiety Enoxaparin Sodium (Enoxaparin Sodium 120 Mg/0.8 Ml Syringe) 120 mg SUBCUT Q24H [facility] Last Admin: 02/22/22 15:49 Dose: Not Given Escitalopram Oxalate (Escitalopram Oxalate 10 Mg Tablet) 10 mg PO DAILY [facility] Last Admin: 02/23/22 08:29 Dose: 10 mg Fluconazole (Fluconazole 50 Mg Tablet) 50 mg PO DAILY [facility] Last Admin: 02/23/22 08:29 Dose: 50 mg Gabapentin (Gabapentin 600 Mg Tablet) 600 mg PO BEDTIME [facility] Last Admin: 02/22/22 20:20 Dose: 600 mg Gabapentin (Gabapentin 400 Mg Capsule) 400 mg PO BID@0800,1500 [facility] Last Admin: 02/23/22 14:03 Dose: 400 mg Hydroxyzine HCl (Hydroxyzine Hcl 25 Mg Tablet) 75 mg PO Q6H PRN PRN Reason: Anxiety Last Admin: 02/23/22 08:29 Dose: 75 mg Lamotrigine (Lamotrigine 25 Mg Tablet) 25 mg PO DAILY [facility] Last Admin: 02/23/22 08:29 Dose: 25 mg Lamotrigine (Lamotrigine 100 Mg Tablet) 100 mg PO DAILY [facility] Last Admin: 02/23/22 08:29 Dose: 100 mg Magnesium Hydroxide (Milk Of Magnesia 30 Ml Oral.Susp) 30 ml PO DAILY PRN PRN Reason: Constipation Methadone HCl (Methadone Hcl 20 Mg/2 Ml Oral.Conc) 125 mg PO DAILY [facility] Last Admin: 02/23/22 08:34 Dose: 125 mg Mirtazapine (Mirtazapine 15 Mg Tablet) 45 mg PO BEDTIME [facility] Last Admin: 02/22/22 20:20 Dose: 45 mg Multivitamins/Vitamin C (Multivitamin Tablet) 1 tab PO DAILY [facility] Last Admin: 02/23/22 08:29 Dose: 1 tab Nicotine Polacrilex (Nicotine Polacrilex 2 Mg Gum) 4 mg BUCCAL Q2H PRN PRN Reason: nicotine cravings Last Admin: 02/22/22 08:51 Dose: 4 mg Pat Own Med ( Lumateperone [ Caplyta] 1 Cap) 1 cap PO BEDTIME [facility] Last Admin: 02/22/22 20:26 Dose: 1 cap Ondansetron HCl (Ondansetron Odt 4 Mg Tab.Rapdis) 4 mg TRANSLINGU Q6H PRN PRN Reason: Nausea Last Admin: 02/23/22 08:29 Dose: 4 mg Prazosin HCl (Prazosin Hcl 1 Mg Capsule) 2 mg PO BEDTIME [facility]; Protocol Last Admin: 02/22/22 20:20 Dose: 2 mg Quetiapine Fumarate (Quetiapine Fumarate 300 Mg Tablet) 300 mg PO BEDTIME [facility] Last Admin: 02/22/22 20:20 Dose: 300 mg Quetiapine Fumarate (Quetiapine Fumarate 50 Mg Tablet) 50 mg PO TID PRN PRN Reason: anxiety, agitation Last Admin: 02/23/22 14:03 Dose: 50 mg Sumatriptan Succinate (Sumatriptan Succinate 50 Mg Tablet) 50 mg PO DAILY MRX1 PRN PRN Reason: Migraine Headache Last Admin: 02/22/22 16:18 Dose: 50 mg Trazodone HCl (Trazodone Hcl 50 Mg Tablet) 150 mg PO BEDTIME [facility] Last Admin: 02/22/22 20:21 Dose: 150 mg Allergies Allergies Allergy/AdvReac Type Severity Reaction Status Date / Time bee pollen [BEE STINGS] Allergy Severe Anaphylaxis Verified 12/30/21 19:45 codeine [CODEINE] Allergy Severe ANAPHYLAXIS Verified 12/30/21 19:45 Iodinated Contrast Media Allergy Severe DIFFICULTY Verified 12/30/21 19:45 [IV DYE, IODINE CONTAINING BREATHING CONTRAST ] Sulfa (Sulfonamide Allergy Severe ANAPHYLAXIS Verified 02/14/22 10:46 Antibiotics) [SULFA (SULFONAMIDE ANTIBIOTICS)] nut - unspecified [nut] Allergy Intermediate Rash Verified 12/30/21 19:45 shellfish derived Allergy Intermediate Rash Verified 12/30/21 19:45 fluoxetine [From Prozac] AdvReac Severe Migraine Verified 12/30/21 19:45 Fish Containing Products AdvReac Stomach Verified 02/13/22 08:43 Upset Assessment & Plan Assessment & Plan (1) HERSON (generalized anxiety disorder): Status: Acute Code(s): F41.1 - Generalized anxiety disorder (2) MDD (major depressive disorder), recurrent episode, moderate: Status: Acute Code(s): F33.1 - Major depressive disorder, recurrent, moderate (3) Opioid use disorder: Status: Acute Code(s): F11.90 - Opioid use, unspecified, uncomplicated (4) Cocaine use disorder: Status: Acute Code(s): F14.10 - Cocaine abuse, uncomplicated Plan Melita is a 41-year-old Female who carries a dx of polysubstance abuse, MDD recurrent, and HERSON. Denies alcohol abuse. 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 She presented to [facility] on 02/12/2022 c/o feeling depressed and suicidal, not taking most of her meds for 5 days and not going to the methadone clinic for 2 days. Reports no drug use in 4 to 5 days. Upon ED workup, pt found to have UTI, ceftin started. Utox positive for cocaine, fentanyl, and opiates. Of note, recent medical admission for acute kidney injury superimposed on CKD 11/2021. Has chronically elevated Creatinine, prev 1.7, however range goes up to 2.6. Plan: 02/13: re-start home meds, pt says she has been adherent with some of her meds including lamictal. Seen by addiction team, re-started on methadone.? 02/14: restart caplyta, increase seroquel to 50 mg TID PRN and vistaril to 75 mg TID PRN, may repeat EKG 02/15: Continue current treatment plan. 02/16/2022: Continue treatment plan. 02/17/2022: Start lexapro 10 mg for depression, anxiety. decrease gabapentin to 400 mg daily and Qnoon, continue it at 600 mg QHS and decrease clonidine to 0.1 mg TID due to sedation 02/18/2022: monitor med for benefit, no changes 02/19/2022: No changes, continues to feel more alert everyday, visible in milieu 02/20/2022: pt denies using illicit substances on the unit, pending utox for metabolites of fentanyl and cocaine as this is a send out to [facility] 02/21/2022: No med changes, continue to monitor for sedation 02/22 says mood is better; no SI; pt is more out in milue and no longer in bed all day 02/23 mood is a lot better For which patient is grateful. Q15 min safety checks, CV Monitor response to medications. Monitor for safety in the milieu. Discharge on stabilization. Patient seen. Chart reviewed. Discussed with team. Obtain collateral contact info as needed I spent minutes with the patient and/or on the patient floor today, greater than?50% of which was spent counseling/coordinating care. Patient educated on: diagnosis and medication risk/benefits Informed Consent: understands Reason for contiued inpatient stay Substantial Risk for: stable for discharge
[2022-02-23 18:00] VITALS: BP 125/72; PULSE 58; RESP 16; TEMP 36.5; O2SAT 99
[2022-02-23] MEDS: QUEtiapine Fumarate 300 MG TABLET PO (20:09)
[2022-02-23] MEDS: Mirtazapine 15 MG TABLET 45 MG PO (20:09)
[2022-02-23] MEDS: traZODone HCL 50 MG TABLET 150 MG PO (20:10)
[2022-02-23] MEDS: Gabapentin 600 MG TABLET PO (20:10)
[2022-02-23] MEDS: Prazosin HCL 1 MG CAPSULE 2 MG PO (20:10)
[2022-02-24] MEDS: methADONE HCl 20 MG/2 ML ORAL.CONC 125 MG PO (08:39)
[2022-02-24] MEDS: cloNIDine HCL 0.1 MG TABLET PO ×3 (08:42→20:33)
[2022-02-24] MEDS: Multivitamin TABLET 1 TAB PO (08:43)
[2022-02-24] MEDS: Gabapentin 400 MG CAPSULE PO ×2 (08:43→16:15)
[2022-02-24] MEDS: Escitalopram Oxalate 10 MG TABLET PO (08:43)
[2022-02-24] MEDS: amLODIPine Besylate 10 MG TABLET PO (08:43)
[2022-02-24] MEDS: lamoTRIgine 100 MG TABLET PO (08:43)
[2022-02-24] MEDS: lamoTRIgine 25 MG TABLET PO (08:43)
[2022-02-24 08:59] VITALS: BP 120/60; PULSE 56; RESP 18; TEMP 37.1; O2SAT 99
[2022-02-24] MEDS: hydrOXYzine HCL 25 MG TABLET 75 MG PO (12:35)
[2022-02-24 16:11] VITALS: BP 111/61; PULSE 60; RESP 16; TEMP 36.6
--- NOTE | 2022-02-24 17:38 | HO.PSYCHPN ---
Subjective Subjective Date of Service: 02/24/22 Reason For Visit: Depression, SI Subjective Notes: Conditional Voluntary Healthcare Proxy: No Guardianship: No Medical Problems Affecting Mental Status: No Interim History: Melita reports difficulty with sleep latency and SOY. Reports no SE from meds, which were reviewed. Will increase Seroquel this evening by 100 mg to attempt to address sleep issue. Hopes for acceptance to [facility]. Pt reports she has talked with Cecy [phone] at the program and although there is no bed today, they will keep her up to date. They request that we file an application which pt's social work team will complete. Discussed the addition of Lexapro and Caplyta at the program Discussed alternatives for sleeping meds-?Doxepin, ?Depakote. Pt to trial Seroquel increase first. Medication Compliance: Yes Side effects from medications: No Attending Groups: Intermittent Review of Systems Acute medical concerns: No Medical Review of Systems: unchanged Mental Status Exam Mental Status Exam Patient Appearance: Appropriate Patient Orientation: Person, Place, Time and Situation Level of Consciousness: Alert Patient Behavior: Appropriate, Talkative, Cooperative and Good Eye Contact Mood Description: Anxious, Sad and Apprehensive Affect Description: Flat Patient Cognition Impaired: No Ability to Follow Directions: Good Speech Pattern: Spontaneous Speech Memory Description: Intact Hallucinations: None Delusions: Not Present Thought Process: Intact and Goal Oriented Thought Content: positive for Intact and positive for Goal Oriented Depressive Symptoms: Increased Anxiety, Insomnia and Difficulty Sleeping Judgement: Good Diagnostics Vital Signs (24Hr): Vital Signs - 24 hr 02/23/22 18:00 02/24/22 08:59 02/24/22 16:11 Temperature 97.7 F 98.8 F 97.8 F Pulse Rate 58 56 60 Respiratory Rate 16 18 16 Blood Pressure 125/72 120/60 111/61 Pulse Oximetry 99 99 Oxygen Delivery Method Room Air Room Air BMI result Body Mass Index 29.6 Labs Results: 02/17/22 08:13 02/13/22 09:03 Medications Medications Current Medications Acetaminophen (Acetaminophen 325 Mg Tablet) 650 mg PO Q6H PRN PRN Reason: Headache/Pain Mild Scale (1-3) Last Admin: 02/23/22 06:34 Dose: 650 mg Al Hydroxide/Mg Hydroxide (Magnesium Hydrox/Alum Hydrox 30 Ml Oral.Susp) 30 ml PO Q6H PRN PRN Reason: Heartburn/Nausea Amlodipine Besylate (Amlodipine Besylate 10 Mg Tablet) 10 mg PO DAILY [facility]; Protocol Last Admin: 02/24/22 08:43 Dose: 10 mg Artificial Tears (Artificial Tears 15 Ml Drops) 1 drop EYE-BOTH Q4H PRN PRN Reason: Dry Eyes Clonidine HCl (Clonidine Hcl 0.1 Mg Tablet) 0.1 mg PO TID [facility]; Protocol Last Admin: 02/24/22 16:15 Dose: 0.1 mg Clonidine HCl (Clonidine Hcl 0.1 Mg Tablet) 0.1 mg PO DAILY PRN; Protocol PRN Reason: Insomnia/anxiety Enoxaparin Sodium (Enoxaparin Sodium 120 Mg/0.8 Ml Syringe) 120 mg SUBCUT Q24H [facility] Last Admin: 02/24/22 16:17 Dose: Not Given Escitalopram Oxalate (Escitalopram Oxalate 10 Mg Tablet) 10 mg PO DAILY [facility] Last Admin: 02/24/22 08:43 Dose: 10 mg Gabapentin (Gabapentin 600 Mg Tablet) 600 mg PO BEDTIME [facility] Last Admin: 02/23/22 20:10 Dose: 600 mg Gabapentin (Gabapentin 400 Mg Capsule) 400 mg PO BID@0800,1500 [facility] Last Admin: 02/24/22 16:15 Dose: 400 mg Hydroxyzine HCl (Hydroxyzine Hcl 25 Mg Tablet) 75 mg PO Q6H PRN PRN Reason: Anxiety Last Admin: 02/24/22 12:35 Dose: 75 mg Lamotrigine (Lamotrigine 25 Mg Tablet) 25 mg PO DAILY [facility] Last Admin: 02/24/22 08:43 Dose: 25 mg Lamotrigine (Lamotrigine 100 Mg Tablet) 100 mg PO DAILY [facility] Last Admin: 02/24/22 08:43 Dose: 100 mg Magnesium Hydroxide (Milk Of Magnesia 30 Ml Oral.Susp) 30 ml PO DAILY PRN PRN Reason: Constipation Methadone HCl (Methadone Hcl 20 Mg/2 Ml Oral.Conc) 125 mg PO DAILY [facility] Last Admin: 02/24/22 08:39 Dose: 125 mg Mirtazapine (Mirtazapine 15 Mg Tablet) 45 mg PO BEDTIME [facility] Last Admin: 02/23/22 20:09 Dose: 45 mg Multivitamins/Vitamin C (Multivitamin Tablet) 1 tab PO DAILY [facility] Last Admin: 02/24/22 08:43 Dose: 1 tab Nicotine Polacrilex (Nicotine Polacrilex 2 Mg Gum) 4 mg BUCCAL Q2H PRN PRN Reason: nicotine cravings Last Admin: 02/22/22 08:51 Dose: 4 mg Pat Own Med ( Lumateperone [ Caplyta] 1 Cap) 1 cap PO BEDTIME [facility] Last Admin: 02/23/22 21:33 Dose: Not Given Ondansetron HCl (Ondansetron Odt 4 Mg Tab.Rapdis) 4 mg TRANSLINGU Q6H PRN PRN Reason: Nausea Last Admin: 02/23/22 08:29 Dose: 4 mg Prazosin HCl (Prazosin Hcl 1 Mg Capsule) 2 mg PO BEDTIME [facility]; Protocol Last Admin: 02/23/22 20:10 Dose: 2 mg Quetiapine Fumarate (Quetiapine Fumarate 50 Mg Tablet) 50 mg PO TID PRN PRN Reason: anxiety, agitation Last Admin: 02/23/22 14:03 Dose: 50 mg Quetiapine Fumarate (Quetiapine Fumarate 400 Mg Tablet) 400 mg PO BEDTIME [facility] Sumatriptan Succinate (Sumatriptan Succinate 50 Mg Tablet) 50 mg PO DAILY MRX1 PRN PRN Reason: Migraine Headache Last Admin: 02/22/22 16:18 Dose: 50 mg Trazodone HCl (Trazodone Hcl 50 Mg Tablet) 150 mg PO BEDTIME [facility] Last Admin: 02/23/22 20:10 Dose: 150 mg Allergies Allergies Allergy/AdvReac Type Severity Reaction Status Date / Time bee pollen [BEE STINGS] Allergy Severe Anaphylaxis Verified 12/30/21 19:45 codeine [CODEINE] Allergy Severe ANAPHYLAXIS Verified 12/30/21 19:45 Iodinated Contrast Media Allergy Severe DIFFICULTY Verified 12/30/21 19:45 [IV DYE, IODINE CONTAINING BREATHING CONTRAST ] Sulfa (Sulfonamide Allergy Severe ANAPHYLAXIS Verified 02/14/22 10:46 Antibiotics) [SULFA (SULFONAMIDE ANTIBIOTICS)] nut - unspecified [nut] Allergy Intermediate Rash Verified 12/30/21 19:45 shellfish derived Allergy Intermediate Rash Verified 12/30/21 19:45 fluoxetine [From Prozac] AdvReac Severe Migraine Verified 12/30/21 19:45 Fish Containing Products AdvReac Stomach Verified 02/13/22 08:43 Upset Assessment & Plan Assessment & Plan (1) HERSON (generalized anxiety disorder): Status: Acute Code(s): F41.1 - Generalized anxiety disorder (2) MDD (major depressive disorder), recurrent episode, moderate: Status: Acute Code(s): F33.1 - Major depressive disorder, recurrent, moderate (3) Opioid use disorder: Status: Acute Code(s): F11.90 - Opioid use, unspecified, uncomplicated (4) Cocaine use disorder: Status: Acute Code(s): F14.10 - Cocaine abuse, uncomplicated Plan Melita is a 41-year-old Female who carries a dx of polysubstance abuse, MDD recurrent, and HERSON. Denies alcohol abuse. 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 She presented to [facility] on 02/12/2022 c/o feeling depressed and suicidal, not taking most of her meds for 5 days and not going to the methadone clinic for 2 days. Reports no drug use in 4 to 5 days. Upon ED workup, pt found to have UTI, ceftin started. Utox positive for cocaine, fentanyl, and opiates. Of note, recent medical admission for acute kidney injury superimposed on CKD 11/2021. Has chronically elevated Creatinine, prev 1.7, however range goes up to 2.6. Plan: 02/13: re-start home meds, pt says she has been adherent with some of her meds including lamictal. Seen by addiction team, re-started on methadone.? 02/14: restart caplyta, increase seroquel to 50 mg TID PRN and vistaril to 75 mg TID PRN, may repeat EKG 02/15: Continue current treatment plan. 02/16/2022: Continue treatment plan. 02/17/2022: Start lexapro 10 mg for depression, anxiety. decrease gabapentin to 400 mg daily and Qnoon, continue it at 600 mg QHS and decrease clonidine to 0.1 mg TID due to sedation 02/18/2022: monitor med for benefit, no changes 02/19/2022: No changes, continues to feel more alert everyday, visible in milieu 02/20/2022: pt denies using illicit substances on the unit, pending utox for metabolites of fentanyl and cocaine as [facility] is [facility] 02/21/2022: No med changes, continue to monitor for sedation 02/22 says mood is better; no SI; pt is more out in milue and no longer in bed all day 02/23 mood is a lot better For which patient is grateful. 02/24/22 Increase Seroquel by 100 mg at HS. Q15 min safety checks, CV Monitor response to medications. Monitor for safety in the milieu. Discharge on stabilization. Patient seen. Chart reviewed. Discussed with team. Obtain collateral contact info as needed I spent minutes with the patient and/or on the patient floor today, greater than?50% of which was spent counseling/coordinating care. Patient educated on: medication risk/benefits and therapeutic strategies Informed Consent: understands and further education needed Reason for contiued inpatient stay Substantial Risk for: rapid decompensation
[2022-02-24] MEDS: Mirtazapine 15 MG TABLET 45 MG PO (20:27)
[2022-02-24] MEDS: traZODone HCL 50 MG TABLET 150 MG PO (20:28)
[2022-02-24] MEDS: QUEtiapine Fumarate 400 MG TABLET PO (20:29)
[2022-02-24 20:30] VITALS: BP 111/76; PULSE 58; TEMP 36.8
[2022-02-24] MEDS: Prazosin HCL 1 MG CAPSULE 2 MG PO (20:33)
[2022-02-24] MEDS: Gabapentin 600 MG TABLET PO (20:34)
[2022-02-25 08:30] VITALS: BP 123/62; PULSE 60; TEMP 36.1
[2022-02-25] MEDS: methADONE HCl 20 MG/2 ML ORAL.CONC 125 MG PO (08:39)
[2022-02-25] MEDS: lamoTRIgine 25 MG TABLET PO (08:41)
[2022-02-25] MEDS: cloNIDine HCL 0.1 MG TABLET PO ×3 (08:41→20:05)
[2022-02-25] MEDS: amLODIPine Besylate 10 MG TABLET PO (08:41)
[2022-02-25] MEDS: Multivitamin TABLET 1 TAB PO (08:41)
[2022-02-25] MEDS: Gabapentin 400 MG CAPSULE PO ×2 (08:41→14:50)
[2022-02-25] MEDS: Escitalopram Oxalate 10 MG TABLET PO (08:41)
[2022-02-25] MEDS: lamoTRIgine 100 MG TABLET PO (08:41)
[2022-02-25] MEDS: hydrOXYzine HCL 25 MG TABLET 75 MG PO ×2 (11:38→17:55)
[2022-02-25 14:35] VITALS: BP 115/58; PULSE 62
--- NOTE | 2022-02-25 16:51 | HO.PSYCHPN ---
Subjective Subjective Date of Service: 02/25/22 Reason For Visit: Depression, SI Subjective Notes: Conditional Voluntary Healthcare Proxy: No Guardianship: No Medical Problems Affecting Mental Status: No Interim History: Pt reports she still feels unable to sleep. Discussed clonidine increase or a new agent-low dose Doxepin. She will trial Doxepin. Reports she is accepted for a program on 02/27 and is pleased. Requests son to visit with her sister. Reviewed with Jenny Lu RN, Director of Behavioral Health, who approved the visit. Discussed feeling badly that others believe she was using substances when visiting-denies this-states she believes the clonidine adjustments had contributed to her sedation. Agrees to the supervision of visits, but asks that it be clarified that she did not use any substances on the unit- This unit has always helped me and I would never disrespect the patients or staff by doing this. Medication Compliance: Yes Side effects from medications: No Attending Groups: Yes Review of Systems Acute medical concerns: No Medical Review of Systems: unchanged Mental Status Exam Mental Status Exam Patient Appearance: Appropriate Patient Orientation: Person, Place, Time and Situation Level of Consciousness: Alert Patient Behavior: Appropriate, Talkative, Cooperative and Good Eye Contact Mood Description: Anxious, Sad and Apprehensive Affect Description: Flat Patient Cognition Impaired: No Ability to Follow Directions: Good Speech Pattern: Spontaneous Speech Memory Description: Intact Hallucinations: None Delusions: Not Present Thought Process: Intact and Goal Oriented Thought Content: positive for Intact and positive for Goal Oriented Depressive Symptoms: Increased Anxiety, Insomnia and Difficulty Sleeping Judgement: Good Diagnostics Vital Signs (24Hr): Vital Signs - 24 hr 02/24/22 20:30 02/25/22 08:30 02/25/22 14:35 Temperature 98.3 F 97 F Pulse Rate 58 60 62 Blood Pressure 111/76 123/62 115/58 L BMI result Body Mass Index 29.6 Labs Results: 02/17/22 08:13 02/13/22 09:03 Medications Medications Current Medications Acetaminophen (Acetaminophen 325 Mg Tablet) 650 mg PO Q6H PRN PRN Reason: Headache/Pain Mild Scale (1-3) Last Admin: 02/23/22 06:34 Dose: 650 mg Al Hydroxide/Mg Hydroxide (Magnesium Hydrox/Alum Hydrox 30 Ml Oral.Susp) 30 ml PO Q6H PRN PRN Reason: Heartburn/Nausea Amlodipine Besylate (Amlodipine Besylate 10 Mg Tablet) 10 mg PO DAILY [facility]; Protocol Last Admin: 02/25/22 08:41 Dose: 10 mg Artificial Tears (Artificial Tears 15 Ml Drops) 1 drop EYE-BOTH Q4H PRN PRN Reason: Dry Eyes Clonidine HCl (Clonidine Hcl 0.1 Mg Tablet) 0.1 mg PO TID [facility]; Protocol Last Admin: 02/25/22 14:35 Dose: 0.1 mg Clonidine HCl (Clonidine Hcl 0.1 Mg Tablet) 0.1 mg PO DAILY PRN; Protocol PRN Reason: Insomnia/anxiety Enoxaparin Sodium (Enoxaparin Sodium 120 Mg/0.8 Ml Syringe) 120 mg SUBCUT Q24H [facility] Last Admin: 02/24/22 16:17 Dose: Not Given Escitalopram Oxalate (Escitalopram Oxalate 10 Mg Tablet) 10 mg PO DAILY [facility] Last Admin: 02/25/22 08:41 Dose: 10 mg Gabapentin (Gabapentin 600 Mg Tablet) 600 mg PO BEDTIME [facility] Last Admin: 02/24/22 20:34 Dose: 600 mg Gabapentin (Gabapentin 400 Mg Capsule) 400 mg PO BID@0800,1500 [facility] Last Admin: 02/25/22 14:50 Dose: 400 mg Hydroxyzine HCl (Hydroxyzine Hcl 25 Mg Tablet) 75 mg PO Q6H PRN PRN Reason: Anxiety Last Admin: 02/25/22 11:38 Dose: 75 mg Lamotrigine (Lamotrigine 25 Mg Tablet) 25 mg PO DAILY [facility] Last Admin: 02/25/22 08:41 Dose: 25 mg Lamotrigine (Lamotrigine 100 Mg Tablet) 100 mg PO DAILY [facility] Last Admin: 02/25/22 08:41 Dose: 100 mg Magnesium Hydroxide (Milk Of Magnesia 30 Ml Oral.Susp) 30 ml PO DAILY PRN PRN Reason: Constipation Methadone HCl (Methadone Hcl 20 Mg/2 Ml Oral.Conc) 125 mg PO DAILY [facility] Last Admin: 02/25/22 08:39 Dose: 125 mg Mirtazapine (Mirtazapine 15 Mg Tablet) 45 mg PO BEDTIME [facility] Last Admin: 02/24/22 20:27 Dose: 45 mg Multivitamins/Vitamin C (Multivitamin Tablet) 1 tab PO DAILY [facility] Last Admin: 02/25/22 08:41 Dose: 1 tab Nicotine Polacrilex (Nicotine Polacrilex 2 Mg Gum) 4 mg BUCCAL Q2H PRN PRN Reason: nicotine cravings Last Admin: 02/22/22 08:51 Dose: 4 mg Pat Own Med ( Lumateperone [ Caplyta] 1 Cap) 1 cap PO BEDTIME [facility] Last Admin: 02/24/22 20:30 Dose: 1 cap Ondansetron HCl (Ondansetron Odt 4 Mg Tab.Rapdis) 4 mg TRANSLINGU Q6H PRN PRN Reason: Nausea Last Admin: 02/23/22 08:29 Dose: 4 mg Prazosin HCl (Prazosin Hcl 1 Mg Capsule) 2 mg PO BEDTIME [facility]; Protocol Last Admin: 02/24/22 20:33 Dose: 2 mg Quetiapine Fumarate (Quetiapine Fumarate 50 Mg Tablet) 50 mg PO TID PRN PRN Reason: anxiety, agitation Last Admin: 02/23/22 14:03 Dose: 50 mg Quetiapine Fumarate (Quetiapine Fumarate 400 Mg Tablet) 400 mg PO BEDTIME [facility] Last Admin: 02/24/22 20:29 Dose: 400 mg Sumatriptan Succinate (Sumatriptan Succinate 50 Mg Tablet) 50 mg PO DAILY MRX1 PRN PRN Reason: Migraine Headache Last Admin: 02/22/22 16:18 Dose: 50 mg Trazodone HCl (Trazodone Hcl 50 Mg Tablet) 150 mg PO BEDTIME [facility] Last Admin: 02/24/22 20:28 Dose: 150 mg Allergies Allergies Allergy/AdvReac Type Severity Reaction Status Date / Time bee pollen [BEE STINGS] Allergy Severe Anaphylaxis Verified 12/30/21 19:45 codeine [CODEINE] Allergy Severe ANAPHYLAXIS Verified 12/30/21 19:45 Iodinated Contrast Media Allergy Severe DIFFICULTY Verified 12/30/21 19:45 [IV DYE, IODINE CONTAINING BREATHING CONTRAST ] Sulfa (Sulfonamide Allergy Severe ANAPHYLAXIS Verified 02/14/22 10:46 Antibiotics) [SULFA (SULFONAMIDE ANTIBIOTICS)] nut - unspecified [nut] Allergy Intermediate Rash Verified 12/30/21 19:45 shellfish derived Allergy Intermediate Rash Verified 12/30/21 19:45 fluoxetine [From Prozac] AdvReac Severe Migraine Verified 12/30/21 19:45 Fish Containing Products AdvReac Stomach Verified 02/13/22 08:43 Upset Assessment & Plan Assessment & Plan (1) HERSON (generalized anxiety disorder): Status: Acute Code(s): F41.1 - Generalized anxiety disorder (2) MDD (major depressive disorder), recurrent episode, moderate: Status: Acute Code(s): F33.1 - Major depressive disorder, recurrent, moderate (3) Opioid use disorder: Status: Acute Code(s): F11.90 - Opioid use, unspecified, uncomplicated (4) Cocaine use disorder: Status: Acute Code(s): F14.10 - Cocaine abuse, uncomplicated Plan Melita is a 41-year-old Female who carries a dx of polysubstance abuse, MDD recurrent, and HERSON. Denies alcohol abuse. 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 She presented to [facility] on 02/12/2022 c/o feeling depressed and suicidal, not taking most of her meds for 5 days and not going to the methadone clinic for 2 days. Reports no drug use in 4 to 5 days. Upon ED workup, pt found to have UTI, ceftin started. Utox positive for cocaine, fentanyl, and opiates. Of note, recent medical admission for acute kidney injury superimposed on CKD 11/2021. Has chronically elevated Creatinine, prev 1.7, however range goes up to 2.6. Plan: 02/13: re-start home meds, pt says she has been adherent with some of her meds including lamictal. Seen by addiction team, re-started on methadone.? 02/14: restart caplyta, increase seroquel to 50 mg TID PRN and vistaril to 75 mg TID PRN, may repeat EKG 02/15: Continue current treatment plan. 02/16/2022: Continue treatment plan. 02/17/2022: Start lexapro 10 mg for depression, anxiety. decrease gabapentin to 400 mg daily and Qnoon, continue it at 600 mg QHS and decrease clonidine to 0.1 mg TID due to sedation 02/18/2022: monitor med for benefit, no changes 02/19/2022: No changes, continues to feel more alert everyday, visible in milieu 02/20/2022: pt denies using illicit substances on the unit, pending utox for metabolites of fentanyl and cocaine as [facility] 02/21/2022: No med changes, continue to monitor for sedation 02/22 says mood is better; no SI; pt is more out in milue and no longer in bed all day 02/23 mood is a lot better For which patient is grateful. 02/25/22- Seroquel increase not helpful for pt. Trial of Doxepin 50 mg HS tonight x 1 with re-eval on 02/26. Q15 min safety checks, CV Monitor response to medications. Monitor for safety in the milieu. Discharge on stabilization. Patient seen. Chart reviewed. Discussed with team. Obtain collateral contact info as needed I spent minutes with the patient and/or on the patient floor today, greater than?50% of which was spent counseling/coordinating care. Patient educated on: medication risk/benefits Informed Consent: further education needed Reason for contiued inpatient stay Substantial Risk for: rapid decompensation
[2022-02-25 19:55] VITALS: BP 123/72; PULSE 64; TEMP 36.2; O2SAT 97
[2022-02-25] MEDS: QUEtiapine Fumarate 400 MG TABLET PO (20:04)
[2022-02-25] MEDS: Mirtazapine 15 MG TABLET 45 MG PO (20:06)
[2022-02-25] MEDS: Gabapentin 600 MG TABLET PO (20:07)
[2022-02-25] MEDS: Prazosin HCL 1 MG CAPSULE 2 MG PO (20:07)
[2022-02-25] MEDS: traZODone HCL 50 MG TABLET 150 MG PO (20:08)
[2022-02-25] MEDS: Doxepin HCl 25 MG CAPSULE 50 MG PO (21:03)
[2022-02-26 06:00] VITALS: BP 110/62; PULSE 62; TEMP 36.3; O2SAT 95
[2022-02-26] MEDS: methADONE HCl 20 MG/2 ML ORAL.CONC 125 MG PO (08:31)
[2022-02-26] MEDS: Escitalopram Oxalate 10 MG TABLET PO (08:33)
[2022-02-26] MEDS: lamoTRIgine 25 MG TABLET PO (08:33)
[2022-02-26] MEDS: lamoTRIgine 100 MG TABLET PO (08:33)
[2022-02-26] MEDS: cloNIDine HCL 0.1 MG TABLET PO ×3 (08:33→21:28)
[2022-02-26] MEDS: Multivitamin TABLET 1 TAB PO (08:33)
[2022-02-26] MEDS: amLODIPine Besylate 10 MG TABLET PO (08:33)
[2022-02-26] MEDS: Gabapentin 400 MG CAPSULE PO ×2 (08:34→14:02)
[2022-02-26 14:00] VITALS: BP 116/64; PULSE 62; O2SAT 96
--- NOTE | 2022-02-26 16:17 | P.PNPSI_ITS ---
Subjective Subjective Date of Service: 02/26/22 Reason For Visit: Depression, SI Subjective Notes: Conditional Voluntary Healthcare Proxy: No Guardianship: No Medical Problems Affecting Mental Status: No Interim History: Preparing for discharge. Son/Sister will visit today. Sleep improved with medication changes and with addition of Doxepin. Med review with Melita. She is pleased with her plan of care. Discussed her healing and how she has managed relapse/crisis by history and currently. Medication Compliance: Yes Side effects from medications: No Attending Groups: Yes Review of Systems Acute medical concerns: No Medical Review of Systems: unchanged Mental Status Exam Mental Status Exam Patient Appearance: Appropriate Patient Orientation: Person, Place, Time and Situation Level of Consciousness: Alert Patient Behavior: Appropriate, Talkative, Cooperative and Good Eye Contact Mood Description: Apprehensive Affect Description: Apprehensive Patient Cognition Impaired: No Ability to Follow Directions: Good Speech Pattern: Spontaneous Speech Memory Description: Intact Hallucinations: None Delusions: Not Present Thought Process: Intact and Goal Oriented Thought Content: positive for Intact and positive for Goal Oriented Depressive Symptoms: Increased Anxiety and Difficulty Sleeping Judgement: Good Diagnostics Vital Signs (24Hr): Vital Signs - 24 hr 02/25/22 19:55 02/26/22 06:00 02/26/22 14:00 Temperature 97.2 F 97.4 F Pulse Rate 64 62 62 Blood Pressure 123/72 110/62 116/64 Pulse Oximetry 97 95 96 Oxygen Delivery Method Room Air Room Air Room Air BMI result Body Mass Index 29.6 Labs Results: 02/17/22 08:13 02/13/22 09:03 Medications Medications Current Medications Acetaminophen (Acetaminophen 325 Mg Tablet) 650 mg PO Q6H PRN PRN Reason: Headache/Pain Mild Scale (1-3) Last Admin: 02/23/22 06:34 Dose: 650 mg Al Hydroxide/Mg Hydroxide (Magnesium Hydrox/Alum Hydrox 30 Ml Oral.Susp) 30 ml PO Q6H PRN PRN Reason: Heartburn/Nausea Albuterol Sulfate (Albuterol Sulfate 90 Mcg 8 Gm Inhaler) 2 puff INHALE RQ4H PRN PRN Reason: Wheezing Amlodipine Besylate (Amlodipine Besylate 10 Mg Tablet) 10 mg PO DAILY [facility]; Protocol Last Admin: 02/26/22 08:33 Dose: 10 mg Artificial Tears (Artificial Tears 15 Ml Drops) 1 drop EYE-BOTH Q4H PRN PRN Reason: Dry Eyes Clonidine HCl (Clonidine Hcl 0.1 Mg Tablet) 0.1 mg PO TID [facility]; Protocol Last Admin: 02/26/22 14:02 Dose: 0.1 mg Clonidine HCl (Clonidine Hcl 0.1 Mg Tablet) 0.1 mg PO DAILY [facility]; Protocol PRN Reason: Insomnia/anxiety Clotrimazole (Clotrimazole 1 % Cream 15 Gm Tube) 1 appl TOPICAL BID [facility]; Protocol Enoxaparin Sodium (Enoxaparin Sodium 120 Mg/0.8 Ml Syringe) 120 mg SUBCUT Q24H [facility] Last Admin: 02/25/22 19:30 Dose: Not Given Escitalopram Oxalate (Escitalopram Oxalate 10 Mg Tablet) 10 mg PO DAILY [facility] Last Admin: 02/26/22 08:33 Dose: 10 mg Gabapentin (Gabapentin 600 Mg Tablet) 600 mg PO BEDTIME [facility] Last Admin: 02/25/22 20:07 Dose: 600 mg Gabapentin (Gabapentin 400 Mg Capsule) 400 mg PO BID@0800,1500 [facility] Last Admin: 02/26/22 14:02 Dose: 400 mg Hydroxyzine HCl (Hydroxyzine Hcl 25 Mg Tablet) 75 mg PO Q6H PRN PRN Reason: Anxiety Last Admin: 02/25/22 17:55 Dose: 75 mg Lamotrigine (Lamotrigine 25 Mg Tablet) 25 mg PO DAILY [facility] Last Admin: 02/26/22 08:33 Dose: 25 mg Lamotrigine (Lamotrigine 100 Mg Tablet) 100 mg PO DAILY [facility] Last Admin: 02/26/22 08:33 Dose: 100 mg Magnesium Hydroxide (Milk Of Magnesia 30 Ml Oral.Susp) 30 ml PO DAILY PRN PRN Reason: Constipation Methadone HCl (Methadone Hcl 20 Mg/2 Ml Oral.Conc) 125 mg PO DAILY [facility] Last Admin: 02/26/22 08:31 Dose: 125 mg Mirtazapine (Mirtazapine 15 Mg Tablet) 45 mg PO BEDTIME [facility] Last Admin: 02/25/22 20:06 Dose: 45 mg Multivitamins/Vitamin C (Multivitamin Tablet) 1 tab PO DAILY [facility] Last Admin: 02/26/22 08:33 Dose: 1 tab Nicotine Polacrilex (Nicotine Polacrilex 2 Mg Gum) 4 mg BUCCAL Q2H PRN PRN Reason: nicotine cravings Last Admin: 02/22/22 08:51 Dose: 4 mg Pat Own Med ( Lumateperone [ Caplyta] 1 Cap) 1 cap PO BEDTIME [facility] Last Admin: 02/25/22 20:04 Dose: 1 cap Ondansetron HCl (Ondansetron Odt 4 Mg Tab.Rapdis) 4 mg TRANSLINGU Q6H PRN PRN Reason: Nausea Last Admin: 02/23/22 08:29 Dose: 4 mg Prazosin HCl (Prazosin Hcl 1 Mg Capsule) 2 mg PO BEDTIME [facility]; Protocol Last Admin: 02/25/22 20:07 Dose: 2 mg Quetiapine Fumarate (Quetiapine Fumarate 50 Mg Tablet) 50 mg PO TID PRN PRN Reason: anxiety, agitation Last Admin: 02/23/22 14:03 Dose: 50 mg Quetiapine Fumarate (Quetiapine Fumarate 400 Mg Tablet) 400 mg PO BEDTIME [facility] Last Admin: 02/25/22 20:04 Dose: 400 mg Sumatriptan Succinate (Sumatriptan Succinate 50 Mg Tablet) 50 mg PO DAILY MRX1 PRN PRN Reason: Migraine Headache Last Admin: 02/22/22 16:18 Dose: 50 mg Trazodone HCl (Trazodone Hcl 50 Mg Tablet) 150 mg PO BEDTIME [facility] Last Admin: 02/25/22 20:08 Dose: 150 mg Allergies Allergies Allergy/AdvReac Type Severity Reaction Status Date / Time bee pollen [BEE STINGS] Allergy Severe Anaphylaxis Verified 12/30/21 19:45 codeine [CODEINE] Allergy Severe ANAPHYLAXIS Verified 12/30/21 19:45 Iodinated Contrast Media Allergy Severe DIFFICULTY Verified 12/30/21 19:45 [IV DYE, IODINE CONTAINING BREATHING CONTRAST ] Sulfa (Sulfonamide Allergy Severe ANAPHYLAXIS Verified 02/14/22 10:46 Antibiotics) [SULFA (SULFONAMIDE ANTIBIOTICS)] nut - unspecified [nut] Allergy Intermediate Rash Verified 12/30/21 19:45 shellfish derived Allergy Intermediate Rash Verified 12/30/21 19:45 fluoxetine [From Prozac] AdvReac Severe Migraine Verified 12/30/21 19:45 Fish Containing Products AdvReac Stomach Verified 02/13/22 08:43 Upset Assessment & Plan Assessment & Plan (1) HERSON (generalized anxiety disorder): Status: Acute Code(s): F41.1 - Generalized anxiety disorder (2) MDD (major depressive disorder), recurrent episode, moderate: Status: Acute Code(s): F33.1 - Major depressive disorder, recurrent, moderate (3) Opioid use disorder: Status: Acute Code(s): F11.90 - Opioid use, unspecified, uncomplicated (4) Cocaine use disorder: Status: Acute Code(s): F14.10 - Cocaine abuse, uncomplicated Plan Melita is a 41-year-old Female who carries a dx of polysubstance abuse, MDD recurrent, and HERSON. Denies alcohol abuse. 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 She presented to [facility] [place] [place] [facility] on 02/12/2022 c/o feeling depressed and suicidal, not taking most of her meds for 5 days and not going to the methadone clinic for 2 days. Reports no drug use in 4 to 5 days. Upon ED workup, pt found to have UTI, ceftin started. Utox positive for cocaine, fentanyl, and opiates. Of note, recent medical admission for acute kidney injury superimposed on CKD 11/2021. Has chronically elevated Creatinine, prev 1.7, however range goes up to 2.6. Plan: 02/13: re-start home meds, pt says she has been adherent with some of her meds including lamictal. Seen by addiction team, re-started on methadone.? 02/14: restart caplyta, increase seroquel to 50 mg TID PRN and vistaril to 75 mg TID PRN, may repeat EKG 02/15: Continue current treatment plan. 02/16/2022: Continue treatment plan. 02/17/2022: Start lexapro 10 mg for depression, anxiety. decrease gabapentin to 400 mg daily and Qnoon, continue it at 600 mg QHS and decrease clonidine to 0.1 mg TID due to sedation 02/18/2022: monitor med for benefit, no changes 02/19/2022: No changes, continues to feel more alert everyday, visible in milieu 02/20/2022: pt denies using illicit substances on the unit, pending utox for metabolites of fentanyl and cocaine as [facility] 02/21/2022: No med changes, continue to monitor for sedation 02/22 says mood is better; no SI; pt is more out in milue and no longer in bed all day 02/23 mood is a lot better For which patient is grateful. 02/25/22- Seroquel increase not helpful for pt. Trial of Doxepin 50 mg HS tonight x 1 with re-eval on 02/26. 02/26/22- Continue Doxepin, med review with Melita, Discharge 02/27. Q15 min safety checks, CV Monitor response to medications. Monitor for safety in the milieu. Discharge on stabilization. Patient seen. Chart reviewed. Discussed with team. Obtain collateral contact info as needed I spent minutes with the patient and/or on the patient floor today, greater than?50% of which was spent counseling/coordinating care. Patient educated on: medication risk/benefits and therapeutic strategies Informed Consent: understands Reason for contiued inpatient stay Substantial Risk for: rapid decompensation
[2022-02-26 18:00] VITALS: BP 105/60; PULSE 55; RESP 18; TEMP 36; O2SAT 97
[2022-02-26] MEDS: Clotrimazole 1 % Cream 15 GM TUBE 1 APPL TOPICAL (21:28)
[2022-02-26] MEDS: Gabapentin 600 MG TABLET PO (21:29)
[2022-02-26] MEDS: Mirtazapine 15 MG TABLET 45 MG PO (21:29)
[2022-02-26] MEDS: QUEtiapine Fumarate 400 MG TABLET PO (21:30)
[2022-02-26] MEDS: Prazosin HCL 1 MG CAPSULE 2 MG PO (21:30)
[2022-02-26] MEDS: traZODone HCL 50 MG TABLET 150 MG PO (21:31)
[2022-02-26 21:53] LABS: COVID-19 Test Negative (Negative)
[2022-02-27 07:00] VITALS: BMI 29.5
[2022-02-27] MEDS: methADONE HCl 20 MG/2 ML ORAL.CONC 125 MG PO (08:23)
[2022-02-27] MEDS: lamoTRIgine 100 MG TABLET PO (08:24)
[2022-02-27] MEDS: Gabapentin 400 MG CAPSULE PO (08:24)
[2022-02-27] MEDS: Multivitamin TABLET 1 TAB PO (08:24)
[2022-02-27] MEDS: cloNIDine HCL 0.1 MG TABLET PO (08:24)
[2022-02-27] MEDS: amLODIPine Besylate 10 MG TABLET PO (08:24)
[2022-02-27] MEDS: Escitalopram Oxalate 10 MG TABLET PO (08:24)
[2022-02-27 08:27] VITALS: BP 127/63; PULSE 65; RESP 18; TEMP 36.4; O2SAT 95
[2022-02-27] MEDS: lamoTRIgine 25 MG TABLET PO (08:56)
--- NOTE | 2022-02-27 09:33 | P.DS_ITS ---
DS: Providers Provider Date of Service: 02/27/22 Date of admission: 02/13/22 16:11 Date of discharge: 02/27/22 [facility]mitting clinician: Sera Huitron Attending physician on admission: Cheo Potter Attending physician on discharge: Cheo Potter Discharging clinician: Ritu Olson DS: Diagnosis Discharge Diagnosis (1) HERSON (generalized anxiety disorder): Status: Acute (2) MDD (major depressive disorder), recurrent episode, moderate: Status: Acute (3) Opioid use disorder: Status: Acute (4) Cocaine use disorder: Status: Acute DS: Medications Discharge Medications Home Medications: Home Medications Medication Instructions Recorded Confirmed methadone 10 mg/mL oral 125 mg PO DAILY 02/12/22 02/12/22 concentrate (Methadose) Previous Rx's Medication Instructions Recorded lumateperone 42 mg capsule 42 mg PO DAILY #30 caps 02/14/22 (Caplyta) acetaminophen 325 mg tablet 650 mg PO Q6H PRN Headache/Pain 02/26/22 Mild Scale (1-3) #90 tabs albuterol sulfate 90 mcg/actuation 2 puff inhalation RQ4H PRN 02/26/22 aerosol inhaler (Ventolin HFA) Wheezing #1 inhaler amlodipine 10 mg tablet 10 mg PO DAILY 30 days #30 tabs 02/26/22 clonidine HCl 0.1 mg tablet 0.1 mg PO DAILY PRN 02/26/22 Insomnia/anxiety #30 tabs clonidine HCl 0.1 mg tablet 0.1 mg PO TID #90 tabs 02/26/22 clotrimazole 1 % topical cream 1 appl topical BID #1 applicator 02/26/22 escitalopram oxalate 10 mg tablet 10 mg PO DAILY #30 tabs 02/26/22 gabapentin 400 mg capsule 400 mg PO BID@0800,1500 #60 caps 02/26/22 gabapentin 600 mg tablet 600 mg PO BEDTIME #30 tabs 02/26/22 hydroxyzine HCl 25 mg tablet 25 mg PO DAILY PRN Anxiety #30 tabs 02/26/22 hydroxyzine HCl 25 mg tablet 75 mg PO Q6H PRN Anxiety #60 tabs 02/26/22 lamotrigine 100 mg tablet 100 mg PO DAILY #30 tabs 02/26/22 (Lamictal) lamotrigine 25 mg tablet (Lamictal) 25 mg PO DAILY 14 days #30 tabs 02/26/22 mirtazapine 45 mg tablet 45 mg PO BEDTIME #30 tabs 02/26/22 multivitamin 1 tab PO DAILY #30 tabs 02/26/22 nicotine (polacrilex) 4 mg gum 4 mg buccal Q2H PRN nicotine 02/26/22 cravings #60 ea ondansetron 4 mg disintegrating 4 mg PO Q6H PRN Migraine Headache 02/26/22 tablet #60 tabs polyvinyl alcohol 1.4 % eye drops 1 drp ophthalmic (eye) Q4H PRN Dry 02/26/22 (Artificial Tears (polyvinyl Eyes #15 mL alcohol)) prazosin 1 mg capsule 2 mg PO BEDTIME #30 caps 02/26/22 quetiapine 400 mg tablet 400 mg PO BEDTIME #30 tabs 02/26/22 quetiapine 50 mg tablet (Seroquel) 50 mg PO DAILY PRN anxiety, 02/26/22 agitation #30 tabs sumatriptan succinate 100 mg tablet 50 mg PO DAILY MRX1 PRN Migraine 02/26/22 Headache #10 tabs trazodone 150 mg tablet 150 mg PO BEDTIME PRN insomnia #30 02/26/22 tabs Mental Status Exam Mental Status Exam Patient Appearance: Appropriate Patient Orientation: Person, Place, Time and Situation Level of Consciousness: Alert Patient Behavior: Appropriate, Talkative, Cooperative and Good Eye Contact Mood Description: Apprehensive Affect Description: Apprehensive Patient Cognition Impaired: No Ability to Follow Directions: Good Speech Pattern: Spontaneous Speech Memory Description: Intact Hallucinations: None Delusions: Not Present Thought Process: Intact and Goal Oriented Thought Content: positive for Intact and positive for Goal Oriented Depressive Symptoms: Increased Anxiety and Difficulty Sleeping Judgement: Good Data Data Completed and Pending Completed studies during hospitalization [Text1]: 02/20/22 02/20/22 02/20/22 14:05 14:05 14:05 Urine Opiates Screen Not Detected Urine Fentanyl Screen POSITIVE H Pending Urine Fentanyl Pending Ur Norfentanyl Quant Pending Ur Barbiturates Screen Not Detected Ur Phencyclidine Scrn Not Detected Ur Amphetamines Screen Not Detected U Benzodiazepines Scrn Not Detected Urine Cocaine Screen POSITIVE H U Cocaine Metab Comment Pending U Benzoylecgonine GC/MS Pending U Marijuana (THC) Screen Not Detected COVID-19 ([facility]) COVID-19 Clin Com 02/26/22 21:30 Urine Opiates Screen Urine Fentanyl Screen Urine Fentanyl Ur Norfentanyl Quant Ur Barbiturates Screen Ur Phencyclidine Scrn Ur Amphetamines Screen U Benzodiazepines Scrn Urine Cocaine Screen U Cocaine Metab Comment U Benzoylecgonine GC/MS U Marijuana (THC) Screen COVID-19 ([facility]) Negative COVID-19 Clin Com See Note DS: Summary Hospital Course Hospital Course: Admission to adult psychiatry for exacerbation of depression, anxiety, opiate and cocaine use disorder. Medications were titrated. Lexapro and Doxepin were initiated, Gabapentin and Seroquel were titrated. Methadone, Lamictal, Mirtazapine,Caplyta, Clonidine and Trazodone were continued. Time spent discussing smoking cessation with patient: more than 10 minutes Status at Discharge Functional status at discharge: independent ambulation Overall status at discharge: patient is progressing back to baseline Time Spent with Patient Time attestation: Total time spent providing and/or coordinating discharge services:35 Time spent: Greater than 30 minutes Discharge Plan Discharge Anticipated Discharge Date/Time: 02/27/22 16:41 Patient Disposition: Xfer Other Discharge Diagnosis: Recurrent Major Depression Anxiety Opiate Use Disorder, currently on Methadone maintenance Stimulant use disorder, Cocaine Referrals: Jose Rashid FNP-[facility] [Primary Care Provider] - 1 Week (Message was left to schedule a follow up appt but have not received a call back w/ appt. Please call their office to follow-up. ) Discharge Medications: New gabapentin 600 mg Tablet 600 mg PO BEDTIME Qty: 30 1RF albuterol sulfate [Ventolin HFA] 90 mcg/actuation Hfa Aerosol Inhaler 2 puff inhalation RQ4H PRN (Reason: Wheezing) Qty: 1 1RF acetaminophen 325 mg Tablet 650 mg PO Q6H PRN (Reason: Headache/Pain Mild Scale (1-3)) Qty: 90 0RF quetiapine 400 mg Tablet 400 mg PO BEDTIME Qty: 30 1RF polyvinyl alcohol [Artificial Tears (polyvin alc)] 1.4 % Drops 1 drp ophthalmic (eye) Q4H PRN (Reason: Dry Eyes) Qty: 15 1RF gabapentin 400 mg Capsule 400 mg PO BID@0800,1500 Qty: 60 1RF hydroxyzine HCl 25 mg Tablet 75 mg PO Q6H PRN (Reason: Anxiety) Qty: 60 1RF escitalopram oxalate 10 mg Tablet 10 mg PO DAILY Qty: 30 1RF clotrimazole 1 % Cream 1 appl topical BID Qty: 1 1RF Protocol: Apply to: Apply to: feet doxepin 10 mg capsule 10 mg PO BEDTIME Qty: 30 1RF Continued methadone [Methadose] 10 mg/mL concentrate 125 mg PO DAILY Rx Instructions: Partial Fill upon patient request. multivitamin Tablet 1 tab PO DAILY Qty: 30 1RF sumatriptan succinate 100 mg tablet 50 mg PO DAILY MRX1 PRN (Reason: Migraine Headache) Qty: 10 1RF lamotrigine [Lamictal] 25 mg tablet 25 mg PO DAILY 14 Days Qty: 30 1RF nicotine (polacrilex) 4 mg gum 4 mg buccal Q2H PRN (Reason: nicotine cravings) Qty: 60 1RF amlodipine 10 mg tablet 10 mg PO DAILY 30 Days Qty: 30 1RF Protocol: Hold for SBP< HOLD for SBP < : 90 trazodone 150 mg tablet 150 mg PO BEDTIME PRN (Reason: insomnia) Qty: 30 1RF mirtazapine 45 mg tablet 45 mg PO BEDTIME Qty: 30 1RF hydroxyzine HCl 25 mg tablet 25 mg PO DAILY PRN (Reason: Anxiety) Qty: 30 1RF ondansetron 4 mg Tablet,Disintegrating 4 mg PO Q6H PRN (Reason: Migraine Headache) Qty: 60 1RF lamotrigine [Lamictal] 100 mg tablet 100 mg PO DAILY Qty: 30 1RF quetiapine [Seroquel] 50 mg tablet 50 mg PO DAILY PRN (Reason: anxiety, agitation) Qty: 30 1RF Discontinued prazosin 1 mg capsule 2 mg PO BEDTIME Protocol: Hold for SBP< HOLD for SBP < : 90 Caplyta 42 mg capsule 1 cap PO DAILY clonidine HCl 0.2 mg tablet 0.2 mg PO TID PRN (Reason: anxiety) Qty: 21 4RF gabapentin 600 mg tablet 600 mg PO TID Qty: 21 4RF quetiapine [Seroquel] 300 mg tablet 300 mg PO BEDTIME Qty: 14 1RF enoxaparin [Lovenox] 150 mg/mL Syringe 130 mg SUBCUT DAILY No Action Caplyta 42 mg capsule 42 mg PO DAILY Qty: 30 0RF clonidine HCl 0.2 mg tablet 0.2 mg PO TID 30 Days Qty: 90 1RF Protocol: Hold for SBP< HOLD for SBP < : 90 Discharge Orders: Discharge Order (Routine); Ordered 02/27/22 Ordered By: Ritu Olson Diet: Advance to usual diet Activity on Discharge: As tolerated Stand Alone Forms: Patient Portal Discharge page, Community Support Care Plan Goals: Maintain mood and safe behaviors Take medications as directed Practice coping skills Continue with out patient providers Health Concerns: Stable mood and behavior Plan of Treatment: Follow up with primary care physician, psychiatric providers and out patient providers assigned Take medications as directed. Assessment: alert, oriented, non suicidal, non homicidal, non psychotic, non manic Discharge Date/Time: 02/27/22 10:15
== END 2022-02-27 10:15 | disposition other institution (70) | DRG 885 ==
LOC: HO.ED 02-13 11:01 → HO.PM5 02-13 16:20
PROVIDERS: Internal Medicine; Registered Nurse; Admitting Provider Psychiatry & Neurology Psychiatry; Emergency Provider Emergency Medicine; PCP Nurse Practitioner Family; Visit Provider Clinical Nurse Specialist Psychiatric/Mental Health, Adult
DX: F33.1 Major depressive disorder, recurrent, moderate (principal); R45.851 Suicidal ideations; F11.20 Opioid dependence, uncomplicated; N39.0 Urinary tract infection, site not specified; F41.1 Generalized anxiety disorder; F14.10 Cocaine abuse, uncomplicated; F43.12 Post-traumatic stress disorder, chronic; Z86.718 Personal history of other venous thrombosis and embolism; F17.210 Nicotine dependence, cigarettes, uncomplicated; Z20.822 Contact with and (suspected) exposure to COVID-19; Z71.6 Tobacco abuse counseling; Z59.01 Sheltered homelessness; Z79.899 Other long term (current) drug therapy
CPT/HCPCS: 36415; 80048; 80061; 80076; 80307; 80353; 80354; 81001; 81025; 82077; 82607; 82746; 83036; 83735; 84439; 84443; 85025; 85027; 85610; 85730; 87635; 92950; 93005; 99285; J1650

== ENCOUNTER 2022-03-21 09:22 | Outpatient (REF) | payer OTHER, SELFPAY ==
[2022-03-21 09:47] LABS: MANUAL DIFF FLAG NO
[2022-03-21 10:43] LABS: Appearance Urine Cloudy; Color Urine Yellow; Glucose Urine UA Negative (Negative); Leukocyte Esterase Urine Moderate (2+) (Negative); Nitrite Urine Negative (Negative); UMIC TRIGGER UACC YES; Urine Blood Negative (Negative); Urine Ketones Negative (Negative); Urine Protein 100 (2+) mg/dL (Neg-Trace)
[2022-03-21 10:49] LABS: Bacteria Urine 2+ (None Seen); Hyaline Casts Urine 0-2 /LPF (0-2); RBC Urine 0-2 /HPF (0-2); UACC Culture Trigger YES; WBC Urine >50 /HPF (0-5)
[2022-03-21 10:52] LABS: Basophils Absolute Auto 0.1 X10*3/uL (0.0-0.2); Basophils Percent Auto 0.7 % (0-2); Eosinophils Absolute Auto 0.3 X10*3/uL (0.0-0.4); Eosinophils Percent Auto 3.8 % (0-4); Hematocrit 42.5 % (37.0-47.0); Hemoglobin 13.8 g/dl (12.0-16.0); Imm Gran Abs Auto 0.02 X10*3/uL (0.00-0.03); Imm Gran Pct Auto 0.3 % (0.0-0.4); Lymphocytes Absolute Auto 2.9 X10*3/uL (1.2-4.9); Lymphocytes Percent Auto 40.3 % (20-40); Mean Corpuscular HGB Conc 32.5 g/dl (31.0-35.0); Mean Corpuscular Hemoglobin 30.5 pg (27.0-33.0); Monocytes Percent Auto 13.5 % (2-11); Neutrophils Percent Auto 41.4 % (45-73); Platelet Count 242 X10*3/uL (160-400); Red Blood Count 4.52 X10*6/uL (4.20-5.50); Red Cell Distribution Width 13.2 % (11.0-16.0); White Blood Count 7.1 X10*3/uL (4.8-10.8)
[2022-03-21 11:34] LABS: TSH reflex Free T4 1.16 uIU/mL (0.32-4.0)
[2022-03-21 11:44] LABS: Alanine Aminotransferase 13 U/L (0-31); Alkaline Phosphatase 132 U/L (39-117); Anion Gap 20 (12-20); Aspartate Amino Transferase 21 U/L (5-31); Bilirubin Total 0.3 mg/dL (0.0-1.0); Blood Urea Nitrogen 32 mg/dL (9-16); Calcium 9.3 mg/dL (8.4-10.2); Carbon Dioxide 19 mmol/L (22-29); Chloride 102 mmol/L (96-108); Cholesterol 314 mg/dL; Estimated Glomerular Filt Rate 27; Glucose Fasting 81 mg/dL (60-99); HDL Cholesterol 61 mg/dL; LDL Cholesterol Calculated 191 mg/dl; Potassium 5.2 mmol/L (3.3-5.1); Sodium 136 mmol/L (135-145); Total Protein 7.8 g/dL (6.5-8.0); Triglycerides 310 mg/dL
== END 2022-03-21 09:23 | disposition home or self-care (01) ==
LOC: HO.LAB 09:22
PROVIDERS: PCP Nurse Practitioner Family; Visit Provider Nurse Practitioner Family
DX: N18.9 Chronic kidney disease, unspecified (principal); N17.9 Acute kidney failure, unspecified; R07.89 Other chest pain
CPT/HCPCS: 36415; 80053; 80061; 81001; 84443; 85025; 87086; 87088; 87186

== ENCOUNTER 2022-04-11 12:06 | Outpatient (REF) | payer OTHER, SELFPAY ==
[2022-04-11 14:08] LABS: Appearance Urine Clear; Color Urine Yellow; Glucose Urine UA Negative (Negative); Leukocyte Esterase Urine Trace (Negative); Nitrite Urine Negative (Negative); Specific Gravity - Urine 1.015 (1.005-1.025); UMIC TRIGGER UA YES; Urine Blood Negative (Negative); Urine Ketones Negative (Negative); Urine Protein 100 (2+) mg/dL (Neg-Trace)
[2022-04-11 14:12] LABS: Bacteria Urine None Seen (None Seen); Hyaline Casts Urine 0-2 /LPF (0-2); RBC Urine 0-2 /HPF (0-2); Squamous Epithelial Cell Urine 0-2 /HPF (0-2); WBC Urine 0-5 /HPF (0-5)
[2022-04-11 15:46] LABS: Influenza A PCR NEGATIVE (Negative); Influenza B PCR NEGATIVE (Negative); Resp Syncy Virus RNA Qual PCR NEGATIVE (Negative); SARS COV2 PCR INHOUSE NEGATIVE (Negative)
== END 2022-04-11 12:07 | disposition home or self-care (01) ==
LOC: HO.LAB 12:06
PROVIDERS: Visit Provider Family Medicine
DX: Z00.00 Encounter for general adult medical examination without abnormal findings (principal); J32.9 Chronic sinusitis, unspecified; R30.0 Dysuria; Z20.822 Contact with and (suspected) exposure to COVID-19
CPT/HCPCS: 0241U; 81001; 81003; 87086

== ENCOUNTER → 2022-05-07 07:26 | Outpatient (REF) | payer OTHER, SELFPAY ==
--- NOTE | 2022-05-07 07:33 | ECG_ITS ---
Test Reason : qt prolongnation Blood Pressure : / mmHG Vent. Rate : 069 BPM Atrial Rate : 069 BPM P-R Int : 206 ms QRS Dur : 084 ms QT Int : 406 ms P-R-T Axes : 066 006 058 degrees QTc Int : 435 ms Normal sinus rhythm Normal ECG When compared with ECG of 12-FEB-2022 11:34, Nonspecific T wave abnormality now evident in Lateral leads Referred By: Malissa Aparicio Electronically Signed By:RAISA CONDON MD
== END ==
LOC: HO.CARD 07:26
PROVIDERS: PCP Family Medicine; Visit Provider Family Medicine
DX: Z79.899 Other long term (current) drug therapy (principal)
CPT/HCPCS: 93005

== ENCOUNTER 2022-08-01 08:58 | Outpatient (REF) | payer OTHER, SELFPAY ==
[2022-08-01 09:20] LABS: MANUAL DIFF FLAG NO
[2022-08-01 09:56] LABS: Appearance Urine Clear; Color Urine Yellow; Glucose Urine UA Negative (Negative); Leukocyte Esterase Urine Large (3+) (Negative); Nitrite Urine Negative (Negative); PH 5.5 (5.0-9.0); Specific Gravity - Urine 1.015 (1.005-1.025); UMIC TRIGGER UACC YES; Urine Blood Negative (Negative); Urine Ketones Negative (Negative); Urine Protein 30 (1+) mg/dL (Neg-Trace)
[2022-08-01 09:57] LABS: Basophils Absolute Auto 0.1 X10*3/uL (0.0-0.2); Basophils Percent Auto 0.7 % (0-2); Eosinophils Absolute Auto 0.2 X10*3/uL (0.0-0.4); Eosinophils Percent Auto 2.2 % (0-4); Hematocrit 39.3 % (37.0-47.0); Hemoglobin 12.9 g/dl (12.0-16.0); Imm Gran Abs Auto 0.02 X10*3/uL (0.00-0.03); Imm Gran Pct Auto 0.2 % (0.0-0.4); Lymphocytes Absolute Auto 2.8 X10*3/uL (1.2-4.9); Lymphocytes Percent Auto 31.1 % (20-40); Mean Corpuscular HGB Conc 32.8 g/dl (31.0-35.0); Mean Corpuscular Hemoglobin 30.5 pg (27.0-33.0); Mean Corpuscular Volume 92.9 fL (80.0-98.0); Mean Platelet Volume 11.3 fL (9.4-12.3); Monocytes Absolute Auto 0.9 X10*3/uL (0.1-1.2); Neutrophils Absolute Auto 5.1 x10*3/uL (2.0-8.3); Neutrophils Percent Auto 55.8 % (45-73); Platelet Count 367 X10*3/uL (160-400); Red Blood Count 4.23 X10*6/uL (4.20-5.50); Red Cell Distribution Width 13.7 % (11.0-16.0); White Blood Count 9.1 X10*3/uL (4.8-10.8)
[2022-08-01 10:01] LABS: Bacteria Urine None Seen (None Seen); Hyaline Casts Urine 0-2 /LPF (0-2); UACC Culture Trigger YES; WBC Urine 21-50 /HPF (0-5)
[2022-08-01 10:35] LABS: Alanine Aminotransferase 9 U/L (0-31); Albumin Level 3.8 g/dL (3.5-5.0); Alkaline Phosphatase 135 U/L (39-117); Anion Gap 13 (12-20); Aspartate Amino Transferase 16 U/L (5-31); Bilirubin Total 0.4 mg/dL (0.0-1.0); Blood Urea Nitrogen 52 mg/dL (9-16); Calcium 8.9 mg/dL (8.4-10.2); Carbon Dioxide 19 mmol/L (22-29); Chloride 107 mmol/L (96-108); Estimated Glomerular Filt Rate 38; Glucose Random 88 mg/dL (60-115); Potassium 5.5 mmol/L (3.3-5.1); Sodium 133 mmol/L (135-145); Total Protein 7.2 g/dL (6.5-8.0)
[2022-08-01 10:44] LABS: TSH reflex Free T4 2.05 uIU/mL (0.32-4.0)
== END 2022-08-01 08:59 | disposition home or self-care (01) ==
LOC: HO.LAB 08:58
PROVIDERS: PCP Nurse Practitioner Family; Visit Provider Nurse Practitioner Family
DX: I10 Essential (primary) hypertension (principal); E03.9 Hypothyroidism, unspecified; R82.90 Unspecified abnormal findings in urine
CPT/HCPCS: 36415; 80053; 81001; 84443; 85025; 87086

== ENCOUNTER 2023-01-19 16:05 | Outpatient (REF) | payer OTHER, SELFPAY ==
--- NOTE | ~2023-01-19 | US_ITS ---
EXAMINATION: US RETROPERITONEAL LIMITED (RENAL ONLY) CLINICAL INFORMATION: Chronic kidney disease stage 3. COMPARISON: Ultrasound abdomen complete 05/29/2016 and 07/29/2013. CT abdomen and pelvis 01/12/2014. TECHNIQUE: Real-time imaging of the kidneys. Technically limited study secondary to bowel gas and body habitus. FINDINGS: RIGHT KIDNEY: 10.5 x 4.9 x 6.2 cm (SAG x AP x TRV). No hydronephrosis. No renal calculi. Limited visualization. LEFT KIDNEY: 7.2 x 4.0 x 4.4 cm (SAG x AP x TRV). No hydronephrosis. No renal calculi. Limited visualization. US/US renal BI IMPRESSION: 1. No hydronephrosis. No renal calculi. Left kidney is smaller than right. 2. Severely limited visualization. CT scan recommended for further evaluation.
[2023-01-19 18:44] LABS: Basophils Percent Auto 0.4 % (0-2); Red Cell Distribution Width 14.6 % (11.0-16.0); SCAN SMEAR FLAG 1
[2023-01-19 18:46] LABS: Eosinophils Absolute Auto 0.2 X10*3/uL (0.0-0.4); Eosinophils Percent Auto 2.2 % (0-4); Hematocrit 42.4 % (37.0-47.0); Hemoglobin 13.8 g/dl (12.0-16.0); Imm Gran Abs Auto 0.03 X10*3/uL (0.00-0.03); Imm Gran Pct Auto 0.3 % (0.0-0.4); Lymphocytes Absolute Auto 3.8 X10*3/uL (1.2-4.9); Lymphocytes Percent Auto 34.5 % (20-40); MANUAL DIFF FLAG SCAN; Mean Corpuscular HGB Conc 32.5 g/dl (31.0-35.0); Mean Corpuscular Hemoglobin 31.9 pg (27.0-33.0); Mean Corpuscular Volume 97.9 fL (80.0-98.0); Mean Platelet Volume 13.2 fL (9.4-12.3); Monocytes Absolute Auto 1.1 X10*3/uL (0.1-1.2); Monocytes Percent Auto 10.4 % (2-11); Neutrophils Absolute Auto 5.7 x10*3/uL (2.0-8.3); Neutrophils Percent Auto 52.2 % (45-73); PLT CLUMP 1; Red Blood Count 4.33 X10*6/uL (4.20-5.50)
[2023-01-19 18:50] LABS: PLT ABN DIST 1; Prothrombin Time 11.9 SEC (11.1-13.3)
[2023-01-19 19:05] LABS: Platelet Count 214 X10*3/uL (160-400); SLIDE REVIEW VERIFIED; White Blood Count 10.9 X10*3/uL (4.8-10.8)
[2023-01-19 19:42] LABS: Alanine Aminotransferase 24 U/L (0-31); Albumin Level 3.8 g/dL (3.5-5.0); Alkaline Phosphatase 170 U/L (39-117); Aspartate Amino Transferase 21 U/L (5-31); Bilirubin Direct < 0.2 mg/dL (0.0-0.5); Bilirubin Total 0.2 mg/dL (0.0-1.0); Phosphorus 3.8 mg/dL (2.7-4.5); Total Protein 7.7 g/dL (6.5-8.0); Uric Acid 6.3 mg/dL (2.4-5.7)
[2023-01-19 19:56] LABS: Vitamin D 25-OH Total 22.5 ng/mL (>30)
[2023-01-19 21:21] LABS: Anion Gap 15 (12-20); Blood Urea Nitrogen 29 mg/dL (9-16); Calcium 9.6 mg/dL (8.4-10.2); Carbon Dioxide 18 mmol/L (22-29); Chloride 110 mmol/L (96-108); Estimated Glomerular Filt Rate 32; Glucose Random 89 mg/dL (60-115); Potassium 4.3 mmol/L (3.3-5.1); Sodium 139 mmol/L (135-145)
[2023-01-19 21:24] LABS: Renal w Reflex Lab Use Only Order verified
[2023-01-20 05:22] LABS: Estimated Average Glucose 88 mg/dL; Hemoglobin A1c % 4.7 % (<6.0)
[2023-01-21 12:58] LABS: Anti Glomerular Basement Memb <1.0 AI
[2023-01-22 10:48] LABS: Calcium (PTHI) 9.3 mg/dL (8.6-10.2); PTHI 104 pg/mL (16-77)
[2023-01-23 14:33] LABS: Neutrophil Cyto Ab Screen NEGATIVE (NEGATIVE)
[2023-01-26 01:54] LABS: VITAMIN D (1,25 OH) D3 43 pg/mL; Vit D (1,25-Dihydroxy) Total 43 pg/mL (18-72); Vitamin D (1,25 OH) D2 <8 pg/mL
[2023-01-26 21:37] LABS: Hepatitis C Genotype Not Detected
[2023-01-27 11:58] LABS: Prot Elec - Alpha1 0.3 g/dL (0.2-0.3); Prot Elec - Alpha2 0.8 g/dL (0.5-0.9); Prot Elec - Beta 1 0.4 g/dL (0.4-0.6); Prot Elec - Beta 2 0.4 g/dL (0.2-0.5); Prot Elec - Gamma 1.4 g/dL (0.8-1.7); Prot Elec - Total Protein 7.3 g/dL (6.1-8.1)
[2023-02-06 00:03] LABS: Phospholipase A2 IgG ELISA <4 RU/mL; Phospholipase A2 IgG IFA NEGATIVE (NEGATIVE)
== END 2023-01-19 16:06 | disposition home or self-care (01) ==
LOC: HO.US 16:05
PROVIDERS: PCP Nurse Practitioner Family; Visit Provider Internal Medicine Nephrology
DX: I12.9 Hypertensive chronic kidney disease with stage 1 through stage 4 chronic kidney disease, or unspecified chronic kidney disease (principal); N18.32 Chronic kidney disease, stage 3b
CPT/HCPCS: 36415; 76775; 80048; 80076; 82306; 82550; 82652; 83036; 83520; 83970; 84100; 84165; 84443; 84550; 85025; 85610; 86036; 86255; 87902

== ENCOUNTER 2023-01-19 18:53 | Outpatient (REF) | payer OTHER, SELFPAY ==
[2023-01-19 20:13] LABS: Creatinine, mg/dL 42.13
[2023-01-19 20:32] LABS: Creatinine, 24Hr Urine 1.4 G/Day (1.0-2.0); Total Volume 24 Hour Urine 3300 mL
[2023-01-19 21:23] LABS: Creatinine (CrCl) 1.74 mg/dL (0.5-1.4); Creatinine Clearance 55.4 mL/min (85-125)
== END 2023-01-19 18:54 | disposition home or self-care (01) ==
LOC: HO.LNP 18:53
PROVIDERS: Visit Provider Internal Medicine Nephrology
DX: I12.9 Hypertensive chronic kidney disease with stage 1 through stage 4 chronic kidney disease, or unspecified chronic kidney disease (principal); N18.32 Chronic kidney disease, stage 3b
CPT/HCPCS: 82575

== ENCOUNTER 2023-12-31 14:24 | Outpatient (AMB) | payer OTHER, SELFPAY ==
--- NOTE | 2023-12-31 14:39 | A.OFFPC_ITS ---
Vital Signs 12/31/23 14:42 BMI Reason not done Patient refused/unable BP 130/90 H Blood Pressure Location Rt brachial Position Sitting Pulse 89 Pulse Source Pulse Oximeter Pulse Oximetry (%) 97 Oxygen Delivery Method Room Air Intake Visit Reasons: HDF Intake Note: Patient here for HDF Allergies bee pollen [BEE STINGS] Allergy (Severe, Verified 12/31/23 14:42) Anaphylaxis codeine [CODEINE] Allergy (Severe, Verified 12/31/23 14:42) ANAPHYLAXIS Sulfa (Sulfonamide Antibiotics) [SULFA (SULFONAMIDE ANTIBIOTICS)] Allergy (Severe, Verified 12/31/23 14:42) ANAPHYLAXIS nut - unspecified [nut] Allergy (Intermediate, Verified 12/31/23 14:42) Rash shellfish derived Allergy (Intermediate, Verified 12/31/23 14:42) Rash fluoxetine [From Prozac] Adverse Reaction (Severe, Verified 12/31/23 14:42) Migraine Fish Containing Products Adverse Reaction (Verified 12/31/23 14:42) Stomach Upset Medication List - Last Reconciled 12/31/23 by KWABENA Flores- acetaminophen 650 mg (2 x 325 mg) PO Q6H PRN albuterol sulfate 90 mcg/actuation (Ventolin HFA) 2 puffs inhalation RQ4H PRN amlodipine 10 mg See Protocol PO DAILY 30 days clonidine HCl 0.2 mg See Protocol PO TID 30 days clotrimazole 1% 1 appl See Protocol topical BID doxepin 20 mg PO BEDTIME enoxaparin (Lovenox) 40 mg subcut DAILY fluconazole 150 mg PO Q3D 2 doses gabapentin 600 mg PO BEDTIME hydroxyzine HCl 75 mg (3 x 25 mg) PO Q6H PRN ketoconazole 2% 1 appl topical DAILY 14 days lumateperone (Caplyta) 42 mg PO DAILY methadone (Methadose) 125 mg PO DAILY multivitamin 1 tab PO DAILY nicotine (polacrilex) 4 mg buccal Q2H PRN omeprazole 20 mg PO DAILY ondansetron 4 mg PO Q6H PRN oxycodone 10 mg PO BID PRN polyethylene glycol 3350 (Miralax) 17 grams PO DAILY polyvinyl alcohol 1.4% (Artificial Tears (polyvinyl alcohol)) 1 drp ophthalmic (eye) Q4H PRN sodium chloride 0.65% (Saline Nasal) 2 sprays intranasal QID PRN 10 days sumatriptan succinate 50 mg (1/2 x 100 mg) PO DAILY MRX1 PRN tizanidine 2 mg PO Q8H PRN trazodone 100 mg PO BEDTIME PRN warfarin 2.5 mg PO 3XW Tobacco use date assessed: 12/31/23 Dental Screening Dental Screen Date: 12/31/23 Was dental information given to patient?: Patient declined HPI HDF HPI Details Pt was seen in the ER on 08/31 with left leg deformity after falling at home. XR showed proximal fibula fracture and distal tibia fracture. She was splinted in the ER. Pt then underwent a ORIF of the left tib/fib on 09/02. Pt was then admitted to the hospital on 11/03 with MRSA bacteremia, infection and inflammatory reaction due to internal fixation device of left tibia. She underwent debridement, drainage of the joint, and reaming of the canal of the tibia. Pt had exchanging of antibiotic spacer nails every several days. She was treated with antibiotics. Missing all notes from this hospital stay. Pt reports having a total of 8 surgeries on this injury. Pt is following up with ortho regularly, she last saw them on 12/28. Pt is following up with the coumadin clinic due to antiphospholipid syndrome. She is also seeing infectious disease and nephrology. Denies fever, chills, and dizziness. Pt is to restart PT in the near future. Hx of chronic liver failure, will examine further with MRI (see [facility] documentation) [facility] Medical History (Updated 12/31/23 @ 15:19 by LEIGHTON Flores) Left tibial fracture Acute renal failure superimposed on chronic kidney disease Cocaine abuse CKD (chronic kidney disease) Antiphospholipid antibody syndrome MDD (major depressive disorder), recurrent episode, moderate Opioid use disorder, severe, dependence Cocaine use disorder Cellulitis Substance abuse Seizures Candidemia Opioid use disorder, severe, dependence PTSD (post-traumatic stress disorder) Bipolar disorder Opiate abuse, continuous Pulmonary emboli DVT (deep venous thrombosis) Sander filter in place Pneumonia Lupus Surgical History History of appendectomy Hx of splenectomy Social History Household Members: Family Housing: Homeless Housing Other:: lIVING IN A Program House Do you presently have visiting nurse or other home services: No Alcohol intake: never Patient Tobacco Use Status: Current everyday Tobacco user Tobacco use type: Cigarette Cigarettes Per Day: 1 Years Smoked: 24 Packs per year/per ci.20 e-Cigarette/Vaping Use: Never Used Second Hand Smoke Exposure: No Substance Use Type: Crack/Cocaine Advance Directives Date on File: 02/14/21 service: No Current occupational status: employed and student Sexual orientation: Did not discuss Cognitive needs: No Hearing needs: No Vision needs: No Questionnaire PHQ-9 Over the last 2 weeks, how often have you been bothered by any of the following problems? 1. Little interest or pleasure in doing things: nearly every day 2. Feeling down, depressed, or hopeless: more than half the days 3. Trouble falling or staying asleep, or sleeping too much: several days 4. Feeling tired or having little energy: nearly every day 5. Poor appetite or overeating: nearly every day 6. Feeling bad about yourself - or that you are a failure or have let yourself or your family down: not at all 7. Trouble concentrating on things, such as reading the newspaper or watching television: several days 8. Moving or speaking so slowly that other people could have noticed. Or the opposite - being so fidgety or restless that you have been moving around a lot more than usual: not at all 9. Thoughts that you would be better off or of hurting yourself in some way: not at all Total score: 13 Depression Screening Interpretation: Positive (denies any si or hi) Depression Screening Follow-up: Existing condition and In treatment Depression Screening Done: Yes 13086 - PHQ-9 Billing: Yes Source: Developed by Drs. Matthew Luna, Adilene Bennett, Pradeep Hunter and colleagues, with an educational matt from [employer]. Thrive Questionnaire Date Thrive assessed: 12/31/23 I am a: Patient What is your living situation today?: I have a steady place to live Within the past 12 months, did the food you bought not last and you didn't have the money to get more?: Never true Within the past 12 months, did you worry whether your food would run out before you got money to buy more?: Never true Do you have trouble paying for medicines?: No Do you have trouble getting transportation to medical appointments?: No Do you have trouble paying your heating and electricity bill?: I choose not to answer this question Do you have trouble taking care of your child, family member or friend?: No Do you have trouble with day-to-day activities such as bathing, preparing meals, shopping, managing finances, etc.?: Yes Are you currently unemployed and looking for a job?: No Are you interested in more education?: No Please select the resources that you would like help with: Daily support Currently or been in a relationship where the following occur: No concerns reported THRIVE Score: 0 AUDIT C Alcohol Use Questionnaire (AUDIT-C) 1. How often do you have a drink containing alcohol?: Never Total Score: 0 HERSON-7 AMB Questionnaire HERSON-7 Date HERSON - 7 assessed: 12/31/23 Feeling nervous, anxious, or on edge: 2 = More than half the days Not being able to stop or control worryin = Nearly every day Worrying too much about different things: 3 = Nearly every day Trouble relaxin = Nearly every day Being so restless that it is hard to sit still: 3 = Nearly every day Becoming easily annoyed or irritable: 2 = More than half the days Feeling afraid as if something awful might happen: 1 = Several days Total HERSON-7 score (0-4 normal; 5-9 mild; 10-14 moderate; 15-21 severe): 17 Source: Developed by Drs. Matthew Luna, Adilene Bennett, Pradeep Hunter and colleagues, with an educational matt from [employer]. HERSON-7 Assessment Billing HERSON-7 Assessment Tool: HERSON-7 Assessment 87322 Review of Systems Const Reports as per HPI Physical exam (Primary Care) Vital Signs: Last Vital Signs Pulse 89 12/31/23 14:42 BP 130/90 H 12/31/23 14:42 Pulse Ox 97 12/31/23 14:42 Oxygen Delivery Method Room Air 12/31/23 14:42 Tobacco/Smoking Status: Tobacco use Status Tobacco use date assessed 12/31/23 12/31/23 14:50 Patient Tobacco Use Status Current everyday Tobacco 12/31/23 14:41 Tobacco use type Cigarette 12/31/23 14:41 e-Cigarette/Vaping Use Never Used 12/31/23 14:41 PHQ-9: PHQ-9 Score PHQ-9: Total score 13 12/31/23 15:39 Depression Screening Interpretation: Positive (denies any si or hi) Depression Screening Follow-up: Existing condition and In treatment Thrive Assessment: Date of Thrive Assessment Date Thrive assessed 12/31/23 12/31/23 14:50 Currently or been in a relationship where the following occur: No concerns reported Const General: cooperative Orientation/consciousness: patient oriented x3 Resp Effort & Inspection: normal respiratory effort Auscultation: clear to auscultation bilaterally Cardio Rate: regular rate Rhythm: regular rhythm Heart sounds: S1 normal heart sound present, S2 normal heart sound present and Murmur heart sound present systolic Neuro General: patient oriented x3 Extrem Other: velcro boot to LLE, good flexion at knee, weak dorsalis pedis pulse, slight tenderness with palpation of surgical sites, no signs of infection, slight swelling noted to LLE Psych Appearance: grossly normal Mental Status: mental status grossly normal Speech and movement: Normal speech and movement present Affect: normal affect Attitude: cooperative Thought process: Normal thought process present Thought content: Normal thought content present Insight: Good insight present (Psych) Judgement: Good judgement present (Psych) Assessment and Plan Assessment & Plan (1) Chronic liver disease: Code(s): K76.9 - Liver disease, unspecified Plan: MRI and labs ordered (2) Sphincter of Oddi dysfunction: Code(s): K83.4 - Spasm of sphincter of Oddi Plan: MRI and labs ordered Plan The patient agreed to the use of a dental assistant medical assistant for this encounter. Scribed for LEIGHTON Nieto by Juanita Vasquez dental assistant medical assistant, on 12/31/2023 at 15:10 EST. Orders: Orders MR abdomen wo con Today LEIGHTON Flores K76.9 - Liver disease, unspecified, K83.4 - Spasm of sphincter of Oddi Complete Blood Count Auto Diff Today LEIGHTON Flores K76.9 - Liver disease, unspecified, K83.4 - Spasm of sphincter of Oddi Comprehensive Met. Panel Today LEIGHTON Flores K76.9 - Liver disease, unspecified, K83.4 - Spasm of sphincter of Oddi Medications: New nystatin swish and swallow 4 mL PO DAILY 40 mL 0RF 10 days LEIGHTON Flores linezolid-0.9% sodium chloride 600 mg/300 mL take 1 tab every 12hrs for 10 days 600 mg IV Q12H LEIGHTON Flores Changed From trazodone 150 mg PO BEDTIME PRN 30 tabs 1RF insomnia To trazodone 100 mg PO BEDTIME PRN Ritu Olson APRN From doxepin 10 mg PO BEDTIME 30 caps 1RF To doxepin 20 mg PO BEDTIME Ritu Olson APRN Refilled gabapentin 600 mg PO BEDTIME 30 tabs 1RF LEIGHTON Flores Discontinued fluconazole Discontinued Reason: Patient Completed Course 150 mg PO Q3D 2 tabs 0RF Coding Level of Care Code Est Pt Level 4 (55113) Diagnoses Chronic liver disease K76.9 Sphincter of Oddi dysfunction K83.4 Additional Codes HERSON-7 Assessment Billing - HERSON-7 Assessment Tool: HERSON-7 Assessment 95284 ([id number])
[2023-12-31 14:42] VITALS: BP 130/90; PULSE 89; O2SAT 97
== END 2023-12-31 16:13 | disposition home or self-care (01) ==
PROVIDERS: PCP Nurse Practitioner Family; Visit Provider Nurse Practitioner Family
DX: K76.9 Liver disease, unspecified (principal); K83.4 Spasm of sphincter of Oddi
CPT/HCPCS: 99214

== ENCOUNTER 2024-05-29 16:15 | Inpatient (IN) | payer OTHER, SELFPAY ==
--- NOTE | 2024-05-29 | ECG_ITS ---
Test Reason : RHYTHM CHECK Blood Pressure : / mmHG Vent. Rate : 053 BPM Atrial Rate : 053 BPM P-R Int : 170 ms QRS Dur : 082 ms QT Int : 426 ms P-R-T Axes : 062 019 073 degrees QTc Int : 399 ms Sinus bradycardia Nonspecific T wave abnormality Abnormal ECG When compared with ECG of 07-MAY-2022 07:41, ST no longer elevated in Anterior leads Nonspecific T wave abnormality now evident in Inferior leads Nonspecific T wave abnormality, worse in Anterolateral leads Referred By: Moo Mcneill Electronically Signed By:RAISA CONDON MD
--- NOTE | ~2024-05-29 | CT_ITS ---
CLINICAL HISTORY: ? LUPUS NEPHRITIS, ESRD CT abdomen without contrast Comparison: 05/29/24. Ultrasound from 11/17/16 Findings: Trace pleural fluid bilaterally. Linear opacities of the lung bases could be scarring. Unremarkable gallbladder. Question nodular contour of the liver capsule which can be seen in the setting of cirrhosis. The kidneys are atrophic; atrophy is greater on the left. 1.2 cm hyperattenuating lesion in the right kidney, new since the prior study (series 4, image 16). The other solid organs are unremarkable. No bowel dilation to indicate obstruction. No definitive bowel wall thickening. Moderately increased stool quantity, similar to the prior study. No aneurysm. Mild calcified atherosclerotic disease. Infrarenal inferior vena cava filter. Lack of contrast and edema limits evaluation for lymphadenopathy. Small to moderate ascites, also present on the prior study. Severe anasarca, unchanged. No acute osseous abnormality. Impression: There is renal atrophy which can be the sequela of systemic lupus erythematous. 1.2 cm hyperattenuating lesion in the right kidney could be artifact, as it was not seen on the recent prior study. Hemorrhage is considered less likely. Attention on follow up is recommended. Small to moderate ascites and severe anasarca, similar to the prior study. Moderately increased stool quantity may indicate constipation. This document has been electronically signed by: Jacklyn Duong MD on 06/09/2024 14:04:13
--- NOTE | ~2024-05-29 | IR_ITS ---
CLINICAL HISTORY: Patient requires dialysis. The patient presents to interventional radiology for placement of a non-tunneled central venous catheter for hemodialysis. PROCEDURES: 1. Real-time ultrasound-guided access into the right internal jugular vein after documentation of selected vessel patency, and permanent imaging storing in the patient record. 2. Placement of a 12.0 fr 20 cm non-tunneled, triple-lumen hemodialysis catheter. Clinician: Vazquez Thrasher PA-C MEDICATIONS: -Lidocaine 1% 10 mL SQ. -For additional details, please see nursing flowsheet. COMPLICATIONS: None. ESTIMATED BLOOD LOSS: <5 ml SPECIMENS: None FLUOROSCOPY TIME: 1.0 min PROCEDURE NOTE: The procedure, risks, benefits, and alternatives were carefully explained to patient, and written informed consent was obtained. The patient was placed supine on the fluoroscopy table. A timeout was performed. The right neck and chest was prepped and draped in usual sterile fashion. Local anesthesia was administered to the access site with lidocaine. Under ultrasound guidance, the right internal jugular vein was accessed with a 4 Fr micropuncture set. A 0.035 in wire was advanced into the IVC. The tract in the vein was serially dilated. Over the wire, a 12.0 fr 20 non-tunneled, triple-lumen hemodialysis catheter was advanced, with the tip located at the cavoatrial junction. The wire was removed. The catheter was tested, flushed, and sutured to the skin. A permanent fluoroscopic image of the chest was saved to PACS. The catheter ports were packed with heparin per routine protocol. The patient was stable after the procedure and was transferred to the medical floor. There were no immediate complications. FINDINGS: 1. Patent right internal jugular vein. 2. Placement of a non-tunneled, triple-lumen hemodialysis catheter as above. 3. Catheter flushes and aspirates very well with a 10 mL syringe. No pneumothorax. IR/IR cvc insert non tunnel IMPRESSION: Placement of a non-tunneled hemodialysis catheter in the right internal jugular vein. PLAN: -The catheter may be used immediately. This procedure was performed by Vazquez Thrasher PA-C, and directly supervised by Dr. Jackson. Electronically signed by: Tan Jackson MD 06/15/2024 05:25 PM [facility]
--- NOTE | ~2024-05-29 | XR_ITS ---
EXAMINATION: XR CHEST CLINICAL INFORMATION: cough COMPARISON: X-ray dated May 29, 2024. TECHNIQUE: Frontal view of the chest was obtained. FINDINGS: Right-sided central venous line catheter and 70 right atrium. No pneumothorax. Pulmonary reticular pattern. No gross consolidation or pleural effusion. Cardiac mediastinal/lower left the left hemithorax due to patient's positioning. Multilevel thoracic spondylosis. Calcified plaque aortic arch. XR/XR chest 1V IMPRESSION: No pneumothorax. Chronic interstitial lung disease. Mild interstitial lung edema cannot be excluded. Right-sided central venous line catheter placement tip at the right atrium region. Electronically signed by: Geo Zuniga MD 06/08/2024 01:28 PM EST
--- NOTE | ~2024-05-29 | CT_ITS ---
CLINICAL HISTORY: Acute renal failure CT abdomen and pelvis without contrast Comparison: CT of the abdomen and pelvis from 01/12/2014 . Findings: Small bilateral pleural effusions with underlying atelectasis/consolidation. Bilateral scarring is predominately peripheral of the imaged lungs. likely steatotic change of the liver which is not further characterized without intravenous contrast. Mild periportal edema suggested. Gallbladder is contracted and/or obscured. Partial obscuration of the pancreas from adjacent fluid. Differential considerations include fluid of the pancreatitis. Ascites is also considered given mild-moderate additional free fluid in the abdomen and pelvis. No free intraperitoneal air. Spleen is surgically absent. Adrenal glands and kidneys appear unchanged. No hydronephrosis. IVC filter is in place. Vascular calcifications noted including imaged aorta and aortic bifurcation. Uterus is anteverted in partly obscured. Mild wall thickening of the urinary bladder is nonspecific. No adnexal soft tissue mass. Mild-moderate height losses of the T11-T12 appear old chronic. Lucency of the proximal right femur appears non aggressive and not significantly changed from comparison. Degenerative changes include mild osteoarthritis of both hips. IMPRESSION: 1. Mild to moderate free fluid in the abdomen and pelvis is nonspecific and may be related to ascites. Infected fluid and inflammatory fluid of the pancreatitis could also be considered. 2. Mild wall thickening of the urinary bladder is nonspecific. Differential considerations include cystitis. 3. Severe stool burden. No small bowel obstruction. 4. Small pleural effusions with mild underlying atelectasis/consolidation. This document has been electronically signed by: Yves Gutierrez MD on 05/29/2024 20:17:42
--- NOTE | ~2024-05-29 | US_ITS ---
Ultrasound-guided nontargeted right renal biopsy History: Acute kidney injury. SLE Procedure: Ultrasound-guided renal biopsy. Risks and benefits and possible complications were discussed with the patient and consent form was signed. The right back/flank was prepped and draped in usual sterile fashion. 1% lidocaine was used for anesthesia. A 17-gauge coaxial needle was advanced through the skin and soft tissues and to the right lower pole of the kidney. A total of 4, 18-gauge cores were performed. The first core consisted mostly of perinephric fat. The specimens were placed in saline. Permanent ultrasound images were archived. A Gelfoam slurry was then administered through the trocar needle and into the right perinephric space. The needle was removed. A dry dressing was applied and secured with Tegaderm. There were no immediate complications. The procedure was performed under moderate sedation with a dedicated nurse for monitoring of vital signs. The patient received a total of 1.5 mg Versed, and 75 mcg Fentanyl. Moderate sedation time: 20 min This procedure was performed by Vazquez Thrasher PA-C, and directly supervised by Dr. Garza. US/US biopsy renal Impression: Ultrasound-guided nontargeted right renal biopsy. Electronically signed by: Rhys Garza MD 06/10/2024 03:16 PM [facility] Workstation: [id number]
--- NOTE | ~2024-05-29 | XR_ITS ---
CLINICAL HISTORY: ?pulm edema 1 view chest x-ray Comparison: Chest x-ray from 06/20/2021 Findings: Small pleural effusions with mild bibasilar atelectasis. Mild pulmonary opacities demonstrated interstitial predominance may reflect pulmonary edema. Pneumonitis can have a similar one-view appearance. Mild cardiomegaly mediastinum accentuated by AP technique. No pneumothorax. Sclerosis of the right scapula or dorsal right 5th rib appears non aggressive. Mild degenerative changes of the imaged shoulders. IMPRESSION: 1. Small bilateral pleural effusions with mild atelectasis. 2. Bilateral pulmonary opacities are nonspecific and likely reflect pulmonary edema. This document has been electronically signed by: Yves Gutierrez MD on 05/29/2024 20:44:25
--- NOTE | ~2024-05-29 | IR_ITS ---
CLINICAL HISTORY: End-stage renal disease. The patient presents to interventional radiology for placement of a tunneled central venous catheter for hemodialysis. PROCEDURES: 1. Real-time ultrasound-guided access into the right internal jugular vein after documentation of selected vessel patency, and permanent imaging storing in the patient record. 2. Placement of a 14.5 fr 23 cm tunneled, dual-lumen hemodialysis catheter. Clinician: Vazquez Thrasher PA-C MEDICATIONS: -Fentanyl 75 mcg, Lidocaine 1% 10 mL SQ. -Antibiotics: None -For additional details, please see nursing flowsheet. COMPLICATIONS: None. ESTIMATED BLOOD LOSS: <5 ml SPECIMENS: None FLUOROSCOPY TIME: 1.2 min PROCEDURE NOTE: The procedure, risks, benefits, and alternatives were carefully explained to patient, and written informed consent was obtained. The patient was placed supine on the fluoroscopy table. A timeout was performed. The right neck and chest was prepped and draped in usual sterile fashion. Local anesthesia was administered to the access site with lidocaine. Under ultrasound guidance, the right internal jugular vein was accessed with a 5 Fr micropuncture set. A 0.035 in wire was advanced to the IVC to maintain access during the tunneling process. Next, subcutaneous lidocaine was administered to the chest. Using blunt dissection, a subcutaneous tunnel was created that connects from the upper chest to the venotomy site. The dialysis catheter was pulled through the tunnel. The tract in the vein was dilated and a peel-away sheath was advanced over the wire. The catheter was advanced through the sheath, which was subsequently peeled away. The catheter was tested, flushed, and sutured to the skin with its tip in the high right atrium. A permanent fluoroscopic image of the chest was saved to PACS. The catheter ports were packed with heparin per routine protocol. The patient was stable after the procedure and was transferred to the post anesthesia care unit. This procedure was with a dedicated nurse and continuous monitoring of vital signs. FINDINGS: 1. Patent right internal jugular vein. 2. Placement of a tunneled, dual-lumen hemodialysis catheter as above. 3. Catheter flushes and aspirates very well with a 10 mL syringe. No pneumothorax. IR/IR cvc insert central tunnel IMPRESSION: Placement of a tunneled hemodialysis catheter in the right internal jugular vein. PLAN: -The catheter may be used immediately. This procedure was performed by Vazquez Thrasher PA-C, and directly supervised by Dr. Garza. Electronically signed by: Rhys Garza MD 06/10/2024 03:16 PM [facility] Workstation: [id number]
--- NOTE | ~2024-05-29 | US_ITS ---
EXAMINATION: Ultrasound bilateral renal and Doppler exam. CLINICAL INDICATION: Acute renal failure. Anasarca COMPARISON: Ultrasound retroperitoneum 01/20/2023 TECHNIQUE: Routine grayscale imaging of kidneys are swollen. Subsequently retroperitoneal Doppler was performed. FINDINGS: Right kidney: The right kidney measures 8.8 x 6.1 x 4.7 cm. There is no hydronephrosis or echogenic stones It is diffusely echogenic and has small anechoic cysts. An upper pole cyst measures 0.3 x 0.3 x 0.4 cm right. Mid cyst measures 0.9 x 0.6 x 0.8 cm. There is trace fluid surrounding the kidney. On renal Doppler exam the proximal renal artery velocity measures 67.7 cm/second, mid segment measures 58.5 cm/second, distal segment measures 46.8 cm/second. Renal aortic ratio measures 1.01. Average resistive index is 0.77. Left kidney: Left kidney measures 7.8 x 4.1 x 4.6 cm. The liver is diffusely echogenic with no focal lesion seen. There is no echogenic stones are hydronephrosis. There is trace fluid surrounding the kidney. On renal Doppler exam the proximal left renal artery velocity measures 36.4 cm/second, mid segment measures 94.4 cm/second and distal segment measures 45.8 cm/second. RAR measures 1.41 Mid aortic velocity measures 67.0 cm/second. The renal veins are pulsatile due to proximity to the artery. Other: There is trace fluid surrounding the liver with enlarged CBD measuring 1.7 cm. Gallbladder has been removed. US/US renal doppler IMPRESSION: Bilateral echogenic kidneys but no echogenic stones are hydronephrosis. Small cysts right kidney. Renal Doppler exam is within normal limits. No suggestion for renal artery stenosis. Electronically signed by: Rui Berry MD 06/06/2024 08:26 AM EST
--- NOTE | ~2024-05-29 | US_ITS ---
EXAMINATION: Ultrasound bilateral renal and Doppler exam. CLINICAL INDICATION: Acute renal failure. Anasarca COMPARISON: Ultrasound retroperitoneum 01/20/2023 TECHNIQUE: Routine grayscale imaging of kidneys are swollen. Subsequently retroperitoneal Doppler was performed. FINDINGS: Right kidney: The right kidney measures 8.8 x 6.1 x 4.7 cm. There is no hydronephrosis or echogenic stones It is diffusely echogenic and has small anechoic cysts. An upper pole cyst measures 0.3 x 0.3 x 0.4 cm right. Mid cyst measures 0.9 x 0.6 x 0.8 cm. There is trace fluid surrounding the kidney. On renal Doppler exam the proximal renal artery velocity measures 67.7 cm/second, mid segment measures 58.5 cm/second, distal segment measures 46.8 cm/second. Renal aortic ratio measures 1.01. Average resistive index is 0.77. Left kidney: Left kidney measures 7.8 x 4.1 x 4.6 cm. The liver is diffusely echogenic with no focal lesion seen. There is no echogenic stones are hydronephrosis. There is trace fluid surrounding the kidney. On renal Doppler exam the proximal left renal artery velocity measures 36.4 cm/second, mid segment measures 94.4 cm/second and distal segment measures 45.8 cm/second. RAR measures 1.41 Mid aortic velocity measures 67.0 cm/second. The renal veins are pulsatile due to proximity to the artery. Other: There is trace fluid surrounding the liver with enlarged CBD measuring 1.7 cm. Gallbladder has been removed. US/US renal BI IMPRESSION: Bilateral echogenic kidneys but no echogenic stones are hydronephrosis. Small cysts right kidney. Renal Doppler exam is within normal limits. No suggestion for renal artery stenosis. Electronically signed by: Rui Berry MD 06/06/2024 08:26 AM EST
[2024-05-29 16:31] VITALS: BP 232/134; PULSE 91; RESP 20; TEMP 36.7; O2SAT 100; BMI 30.6
--- NOTE | 2024-05-29 16:33 | ED.GENADULT ---
HPI - General Adult General Chief complaint: General Medical Stated complaint: lupus flare up Time Seen by Provider: 05/29/24 17:41 Source: patient Mode of arrival: EMS Limitations: no limitations History of Present Illness ED Provider: HPI narrative: Patient is 43 years old with history of lupus antiphospholipid syndrome with previous DVTs on Coumadin opiate use disorder on methadone, cocaine abuse MRSA bacteremia left leg tibia and fibular fracture with postop complication with history of chronic liver disease CKD malfunctioning sphincter of oddi AMA from [facility] on 03/21/2024 at that time patient has creatinine of 4.78 AST 49 ALT 16 and bilirubin less than 0.2 blood pressure was elevated to 232/134 Related Data Home Medications ?Medication ?Instructions ?Recorded ?Confirmed methadone 10 mg/mL oral 95 mg PO BEDTIME 02/12/22 05/30/24 concentrate (Methadose) bupropion HCl 300 mg 24 hr tablet, 300 mg PO DAILY 05/30/24 05/30/24 extended release clonidine HCl 0.1 mg tablet 0.1 mg PO BID 05/30/24 05/30/24 clonidine HCl 0.2 mg tablet 0.2 mg PO BEDTIME 05/30/24 05/30/24 hydroxyzine pamoate 50 mg capsule 50 mg PO TID PRN Anxiety 05/30/24 05/30/24 methadone 10 mg/mL oral concentrate 100 mg PO DAILY 05/30/24 05/30/24 nystatin 100,000 unit/mL oral 4 ml PO DAILY PRN FLARES 05/30/24 05/30/24 suspension omeprazole 20 mg capsule,delayed 20 mg PO DAILY@0630 05/30/24 05/30/24 release quetiapine 50 mg tablet 50 mg PO TID PRN Anxiety 05/30/24 05/30/24 topiramate 100 mg tablet 100 mg PO BID 05/30/24 05/30/24 warfarin 2 mg tablet 2 mg PO DAILY@1800 05/30/24 05/30/24 Previous Rx's ?Medication ?Instructions ?Recorded acetaminophen 325 mg tablet 650 mg (2 x 325 mg) PO Q6H PRN 02/26/22 Headache/Pain Mild Scale (1-3) #90 tabs albuterol sulfate 90 mcg/actuation 2 puff inhalation RQ4H PRN 02/26/22 aerosol inhaler (Ventolin HFA) Wheezing #1 inhaler multivitamin 1 tab PO DAILY #30 tabs 02/26/22 ondansetron 4 mg disintegrating 4 mg PO Q6H PRN Migraine Headache 02/26/22 tablet #60 tabs amlodipine 10 mg tablet 10 mg PO DAILY 30 days #30 tabs 07/29/22 gabapentin 600 mg tablet 600 mg PO BID 30 days #60 tabs 03/01/24 Allergies Allergy/AdvReac Type Severity Reaction Status Date / Time bee pollen [BEE STINGS] Allergy Severe Anaphylaxis Verified 05/29/24 16:36 codeine [CODEINE] Allergy Severe ANAPHYLAXIS Verified 05/29/24 16:36 Sulfa (Sulfonamide Allergy Severe ANAPHYLAXIS Verified 05/29/24 16:36 Antibiotics) [SULFA (SULFONAMIDE ANTIBIOTICS)] nut - unspecified [nut] Allergy Intermediate Rash Verified 05/29/24 16:36 shellfish derived Allergy Intermediate Rash Verified 05/29/24 16:36 fluoxetine [From Prozac] AdvReac Severe Migraine Verified 05/29/24 16:36 Fish Containing Products AdvReac Stomach Verified 05/29/24 16:36 Upset Review of Systems Review of Systems: Yes all other systems are reviewed and are negative PMFSH Past Medical History Medical History Left tibial fracture Acute renal failure superimposed on chronic kidney disease Cocaine abuse CKD (chronic kidney disease) Antiphospholipid antibody syndrome MDD (major depressive disorder), recurrent episode, moderate Opioid use disorder, severe, dependence Cocaine use disorder Cellulitis Substance abuse Seizures Candidemia Opioid use disorder, severe, dependence PTSD (post-traumatic stress disorder) Bipolar disorder Opiate abuse, continuous Pulmonary emboli DVT (deep venous thrombosis) [place] filter in place Pneumonia Lupus Surgical History History of appendectomy Hx of splenectomy Social History Social History Household Members: None Housing: Apartment Housing Other:: lIVING IN A Program House Do you presently have visiting nurse or other home services: No Alcohol intake: never Patient Tobacco Use Status: Current everyday Tobacco user Tobacco use type: Cigarette Cigarettes Per Day: 2 Years Smoked: 24 e-Cigarette/Vaping Use: Never Used Second Hand Smoke Exposure: No Substance Use Type: Crack/Cocaine Advance Directives Date on File: 02/14/21 service: No Current occupational status: employed and student Sexual orientation: Did not discuss Cognitive needs: No Hearing needs: No Vision needs: No Physical Exam ED Vital Signs: Vital Signs - 24 hr 05/29/24 16:31 05/29/24 17:50 05/29/24 19:57 Temperature 98.0 F Pulse Rate 91 80 Respiratory Rate 20 18 Blood Pressure 232/134 H 241/132 H 213/123 H Pulse Oximetry 100 Oxygen Delivery Method Room Air 05/29/24 19:57 05/29/24 20:17 Temperature 97.8 F Pulse Rate 90 55 Respiratory Rate 18 Blood Pressure 213/123 H 156/81 H Pulse Oximetry 98 Oxygen Delivery Method Room Air BMI result Body Mass Index 30.6 Appearance: Alert. Oriented X3. No acute distress. Generalized anasarca Eyes: PERRLA, No Nystagmus ENT: Pharynx normal. Oral Mucosa moist Neck: Normal inspection. Neck supple. CVS: Normal heart rate and rhythm. Pulses normal. Respiratory: No respiratory distress. Equal air entry bilateral, no wheezing/rales/rhonchi Abdomen: Soft and nontender. Bowel sounds are present, no mass palpable, no CVA tenderness Skin: Skin warm and dry. Normal skin color. Normal skin turgor. Extremities: 2+ lower extremity edema. No calf tenderness Zosyn upper extremity and lower extremity Neuro: Oriented X 3. No motor deficit. No sensory deficit.No cerebellar signs , cranial nerves II-XII intact Course Course Course Narrative: This is a Rapid Medical Examination (RME) performed by Haseeb Stevens PA-C in triage. Full HPI, ROS, assessment and treatment plan per primary provider in the Main ED. 43 yo female hx of CKD, HTN, MRSA bacteremia, substance abuse, DVT with filter, migraines, lupus, pneumonia, substance abuse here for eval of diffuse body swelling ?lupus flare x1 week. states her entire body feels swollen. reports pain to all joints with muscle spasms in her back. she is not currently on treatment for lupus. also endorses ulcerated area to right spaulding draining clear fluid. +3+ pitting edema to bilateral legs. using wheelchair to ambulate. Plan: labs, UA, UDS Medications Administered Generic Name Dose Route Start Last Admin Trade Name Freq PRN Reason Stop Dose Admin Acetaminophen 650 mg 05/29/24 22:07 06/01/24 01:24 Acetaminophen 325 Mg Tablet PO 650 mg Q6H PRN Administration Pain, Mild 1-3,fever,headache Amlodipine Besylate 10 mg 05/30/24 10:55 06/01/24 08:41 Amlodipine Besylate 10 Mg Tablet PO 10 mg DAILY SOPHIE Administration Protocol Bupropion HCl 300 mg 06/01/24 09:00 06/01/24 08:42 Bupropion Hcl Xl 300 Mg Tab.Er.24h PO 300 mg DAILY SOPHIE Administration Clonidine HCl 0.1 mg 05/30/24 11:00 06/01/24 20:35 Clonidine Hcl 0.1 Mg Tablet PO 0.1 mg BID SOPHIE Administration Protocol Clonidine HCl 0.2 mg 05/30/24 21:00 06/01/24 20:34 Clonidine Hcl 0.2 Mg Tablet PO 0.2 mg BEDTIME SOPHIE Administration Protocol Hydromorphone HCl 0.25 mg 05/30/24 09:31 06/01/24 13:20 Hydromorphone Hcl 0.5 Mg/0.5 Ml Syringe IVPUSH 0.25 mg Q4H PRN Administration Pain, Severe (Pain Scale 7-10) Protocol Methadone HCl 100 mg 05/30/24 11:45 06/01/24 08:42 Methadone Hcl 20 Mg/2 Ml Oral.Conc PO 100 mg DAILY SOPHIE Administration Methadone HCl 95 mg 05/30/24 17:00 06/01/24 17:30 Methadone Hcl 20 Mg/2 Ml Oral.Conc PO 95 mg DAILY@1700 SOPHIE Administration Omeprazole 20 mg 05/31/24 11:00 06/01/24 06:02 Omeprazole 20 Mg Capsule.Dr PO 20 mg DAILY@0630 SOPHIE Administration Quetiapine Fumarate 50 mg 05/31/24 10:57 06/01/24 08:43 Quetiapine Fumarate 50 Mg Tablet PO 50 mg TID PRN Administration Anxiety Sodium Chloride 3 ml 05/30/24 00:00 06/01/24 20:35 0.9 % Sodium Chloride Flush 3 Ml Syringe IVFLUSH 3 ml QSHIFT SOPHIE Administration Topiramate 100 mg 05/31/24 21:00 06/01/24 20:33 Topiramate 100 Mg Tablet PO 100 mg BID SOPHIE Administration Warfarin Sodium 5 mg 05/31/24 18:00 06/01/24 17:30 Warfarin Sodium 5 Mg Tablet PO 5 mg DAILY@1800 SOPHIE Administration Discontinued Medications Generic Name Dose Route Start Last Admin Trade Name Julien COLIN Reason Stop Dose Admin Ceftriaxone Sodium 1 gm 05/29/24 19:39 05/29/24 19:57 Ceftriaxone Sodium 1 Gm Vial IVPUSH 05/29/24 19:40 1 gm ONCE ONE Administration Furosemide 100 mg 05/29/24 19:26 05/29/24 19:57 Furosemide 100 Mg/10 Ml Vial IVPUSH 05/29/24 19:27 100 mg ONCE ONE Administration Protocol Hydralazine HCl 20 mg 05/29/24 23:11 05/29/24 23:29 Hydralazine Hcl 20 Mg/Ml Vial IVPUSH 05/29/24 23:12 20 mg ONCE ONE Administration Protocol Hydralazine HCl 20 mg 05/30/24 01:32 05/30/24 02:01 Hydralazine Hcl 20 Mg/Ml Vial IVPUSH 05/30/24 01:33 20 mg ONCE ONE Administration Protocol Vancomycin HCl 1,000 mg/ 270 mls @ 270 mls/hr 05/29/24 19:39 05/29/24 21:10 Sodium Chloride IV 05/29/24 20:38 Infused ONCE ONE Infusion Levofloxacin 750 mg in 150 mls @ 100 mls/hr 05/29/24 23:45 06/01/24 01:36 Levaquin IV Infused Q48H SOPHIE Infusion Sodium Bicarbonate 150 meq/ 1,000 mls @ 50 mls/hr 05/30/24 08:00 05/30/24 17:13 Dextrose IV Infused .Q20H SOPHIE Infusion Labetalol HCl 20 mg 05/29/24 19:26 05/29/24 19:57 Labetalol Hcl 100 Mg/20 Ml Vial IVPUSH 05/29/24 19:27 20 mg ONCE ONE Administration Sodium Bicarbonate 50 meq 05/30/24 06:39 05/30/24 09:26 Sodium Bicarbonate 8.4% 50 Meq/50 Ml Syringe IVPUSH 05/30/24 06:40 50 meq ONCE ONE Administration Warfarin Sodium 2 mg 05/30/24 18:00 05/30/24 17:26 Warfarin Sodium 2 Mg Tablet PO 2 mg DAILY@1800 [facility] Administration Warfarin Sodium 3 mg 05/30/24 18:00 05/30/24 17:26 Warfarin Sodium 3 Mg Tablet PO 05/30/24 18:01 3 mg ONCE@1800 ONE Administration Procedures Procedure Narrative Procedure Narrative: Ultrasound-guided IV. 18 gauge 3/4 inch IV placed in left IJ. Adequate blood return, flushes well, secured with Tegaderm Performed by Savanna Gordon PA-C Medical Decision Making Medical Decision Making [facility] Narrative: Patient with generalized anasarca with accelerated hypertension with GERRI with history of hepatitis-C with elevated liver function test will admit patient for further management Differential Diagnosis Differential Diagnoses: The differential diagnosis associated with the presentation includes Admission/Observation Consideration of admission/observation: Escalation of care including admission/observation considered Lab Data [facility] Lab Attestation statement: I reviewed the patient's lab results. 06/01/24 08:01 06/01/24 08:01 Labs: Lab Results 05/29/24 05/29/24 Range/Units 18:20 19:56 WBC 16.1 H (4.8-10.8) X10*3/uL RBC 3.69 L (4.20-5.50) X10*6/uL Hgb 11.2 L (12.0-16.0) g/dl Hct 34.7 L (37.0-47.0) % MCV 94.0 (80.0-98.0) fL MCH 30.4 (27.0-33.0) pg MCHC 32.3 (31.0-35.0) g/dl RDW 19.6 H (11.0-16.0) % Plt Count 237 (160-400) X10*3/uL MPV 12.1 (9.4-12.3) fL Immature Gran % (Auto) 1.0 H (0.0-0.4) % Neut % (Auto) 84.5 H (45-73) % Lymph % (Auto) 5.1 L (20-40) % Gladwin % (Auto) 9.2 (2-11) % Eos % (Auto) 0.1 (0-4) % Baso % (Auto) 0.1 (0-2) % Lymph # (Auto) 0.8 L (1.2-4.9) X10*3/uL Gladwin # (Auto) 1.5 H (0.1-1.2) X10*3/uL Eos # (Auto) 0.0 (0.0-0.4) X10*3/uL Baso # (Auto) 0.0 (0.0-0.2) X10*3/uL Abs Immat Gran (auto) 0.16 H (0.00-0.03) X10*3/uL Absolute Neuts (auto) 13.6 H (2.0-8.3) x10*3/uL Absolute Nucleated RBC 0.820 H (0.0-0.012) X10*3/uL Nucleated RBC % (auto) 5.1 H (0.0-0.2) /100WBC Smear Path Review SEE NOTE PT 18.0 H (10.9-12.4) SEC INR 1.5 H (0.9-1.1) Sodium 137 (135-145) mmol/L Potassium 5.5 H (3.3-5.1) mmol/L Chloride 109 H (96-108) mmol/L Carbon Dioxide 14 L (22-29) mmol/L Anion Gap 20 (12-20) BUN 124 H (9-16) mg/dL Creatinine 8.12 H* (0.5-1.4) mg/dL Estim Creat Clear Calc 10.4 Estimated GFR 5 Random Glucose 68 (60-115) mg/dL Lactic Acid 1.2 (0.5-2.0) mmol/L Calcium 7.5 L D (8.4-10.2) mg/dL Magnesium 2.1 (1.6-2.6) mg/dL Total Bilirubin 0.5 (0.0-1.0) mg/dL AST 355 H (5-31) U/L ALT 377 H (0-31) U/L Alkaline Phosphatase 189 H (39-117) U/L Total Creatine Kinase 587 H (26-140) U/L C-Reactive Protein 2.43 H (< or = 0.50) mg/dL B-Natriuretic Peptide 70242 H (<100) pg/mL Total Protein 6.4 L (6.5-8.0) g/dL Albumin 2.5 L (3.5-5.0) g/dL Lipase 46 (8-78) U/L Radiology Impression Discussion of test interpretation with radiology: I have reviewed the radiologist's reading. Radiologist Impression: [address] [address] [address] Scan Report Signed Patient: Melita Butler MR#: [id number] : 1980 Acct:[id number] Age/Sex: 43 / F ADM Date: 05/29/24 Loc: HO.ED Attending Dr: Ordering Physician: Moo Mcneill MD Date of Service: 05/29/24 Procedure(s): CT abdomen pelvis wo IV con Accession Number(s): [id number] cc: Jose Rashid [employer]-; Moo Mcneill MD~ Report Number: [id number]: Total DLP = 674.00 mGy-cm CLINICAL HISTORY: Acute renal failure CT abdomen and pelvis without contrast Comparison: CT of the abdomen and pelvis from 01/12/2014 . Findings: Small bilateral pleural effusions with underlying atelectasis/consolidation. Bilateral scarring is predominately peripheral of the imaged lungs. likely steatotic change of the liver which is not further characterized without intravenous contrast. Mild periportal edema suggested. Gallbladder is contracted and/or obscured. Partial obscuration of the pancreas from adjacent fluid. Differential considerations include fluid of the pancreatitis. Ascites is also considered given mild-moderate additional free fluid in the abdomen and pelvis. No free intraperitoneal air. Spleen is surgically absent. Adrenal glands and kidneys appear unchanged. No hydronephrosis. IVC filter is in place. Vascular calcifications noted including imaged aorta and aortic bifurcation. Uterus is anteverted in partly obscured. Mild wall thickening of the urinary bladder is nonspecific. No adnexal soft tissue mass. Mild-moderate height losses of the T11-T12 appear old chronic. Lucency of the proximal right femur appears non aggressive and not significantly changed from comparison. Degenerative changes include mild osteoarthritis of both hips. IMPRESSION: 1. Mild to moderate free fluid in the abdomen and pelvis is nonspecific and may be related to ascites. Infected fluid and inflammatory fluid of the pancreatitis could also be considered. 2. Mild wall thickening of the urinary bladder is nonspecific. Differential considerations include cystitis. 3. Severe stool burden. No small bowel obstruction. 4. Small pleural effusions with mild underlying atelectasis/consolidation. This document has been electronically signed by: Yves Gutierrez MD on 05/29/2024 20:17:42 Critical Care Time Critical Care Time Critical Care Time: Yes Total Critical Care Time: 50 Attestation: The patient was critically ill with a high probability of imminent or life threatening deterioration. I spent greater than 60???minutes of discontinuous time evaluating the patient,delivering critical care at the bedside, discussing and evaluating pertinent data with consultants. Critical care time does not include time spent performing separately billable procedures or teaching. Total time spent performing critical care was ?50??minutes. Discharge Plan Discharge Clinical Impression: Acute renal failure superimposed on chronic kidney disease, Chronic liver disease, Anasarca, Accelerated essential hypertension Patient Disposition: Admitted As Inpatient Interventions: Admission Worksheet (ED) Last Done: 05/30/24 15:56 Discharge Date/Time: 05/30/24 16:32
[2024-05-29 17:50] VITALS: BP 241/132; PULSE 80; RESP 18
--- NOTE | 2024-05-29 18:26 | PC.NURSE ---
Pt presents to ED from home, reports for past month extremity swelling, significant weight gain, intermittent SOB and fatigue/ gen body aches. Alert and oriented, breathing even and unlabored at rest. Extremities significantly swollen. BP significantly hypertensive. NSR on monitor worker.
[2024-05-29 18:30] LABS: MANUAL DIFF FLAG NO
[2024-05-29 18:33] LABS: Basophils Percent Auto 0.1 % (0-2); Eosinophils Percent Auto 0.1 % (0-4); Hematocrit 34.7 % (37.0-47.0); Hemoglobin 11.2 g/dl (12.0-16.0); Imm Gran Abs Auto 0.16 X10*3/uL (0.00-0.03); Lymphocytes Absolute Auto 0.8 X10*3/uL (1.2-4.9); Lymphocytes Percent Auto 5.1 % (20-40); Mean Corpuscular HGB Conc 32.3 g/dl (31.0-35.0); Mean Corpuscular Hemoglobin 30.4 pg (27.0-33.0); Mean Platelet Volume 12.1 fL (9.4-12.3); Monocytes Absolute Auto 1.5 X10*3/uL (0.1-1.2); Monocytes Percent Auto 9.2 % (2-11); Neutrophils Absolute Auto 13.6 x10*3/uL (2.0-8.3); Neutrophils Percent Auto 84.5 % (45-73); Platelet Count 237 X10*3/uL (160-400); Red Blood Count 3.69 X10*6/uL (4.20-5.50); Red Cell Distribution Width 19.6 % (11.0-16.0); White Blood Count 16.1 X10*3/uL (4.8-10.8)
[2024-05-29 18:37] LABS: NRBC Pct Auto 5.1 /100WBC (0.0-0.2)
--- NOTE | 2024-05-29 18:47 | PC.NURSE ---
Security went through pts belongings with tech present, they reported pt having multiple bottles of methadone, (>20) and appeared lock box is broken. Pharmacy contacted to figure out what to do, they reported if pt is staying and being admitted to bring them up but if not pharmacy closes at 11P and they will not be able to give them back. reported he is unsure if pt will be admitted to hold off at this time
[2024-05-29 18:50] LABS: C Reactive Protein 2.43 mg/dL (< or = 0.50)
[2024-05-29 18:58] LABS: Alanine Aminotransferase 377 U/L (0-31); Albumin Level 2.5 g/dL (3.5-5.0); Alkaline Phosphatase 189 U/L (39-117); Anion Gap 20 (12-20); Aspartate Amino Transferase 355 U/L (5-31); Bilirubin Total 0.5 mg/dL (0.0-1.0); Blood Urea Nitrogen 124 mg/dL (9-16); Calcium 7.5 mg/dL (8.4-10.2); Carbon Dioxide 14 mmol/L (22-29); Chloride 109 mmol/L (96-108); Creatinine Clr Calc Pharmacy 10.4; Estimated Glomerular Filt Rate 5; Glucose Random 68 mg/dL (60-115); Magnesium 2.1 mg/dL (1.6-2.6); Potassium 5.5 mmol/L (3.3-5.1); Sodium 137 mmol/L (135-145); Total Protein 6.4 g/dL (6.5-8.0)
--- NOTE | 2024-05-29 19:04 | PC.NURSE ---
Addendum entered by Valerie Rodriguez 05/29/24 19:07: informed RNS that pt will be admitted. Methadone sent to the pharmacy. 15 bottles Original Note: Per electrical discharge machine operator, secure methadone bottles in pod locked for mean time. 2 RNs completing task with pharmacy
[2024-05-29 19:13] LABS: B Type Natriuretic Peptide 18845 pg/mL (<100)
[2024-05-29 19:57] VITALS: BP 213/123; PULSE 90
[2024-05-29] MEDS: Furosemide 100 MG/10 ML VIAL IVPUSH (19:57)
[2024-05-29] MEDS: cefTRIAXone sodium 1 GM VIAL IVPUSH (19:57)
[2024-05-29] MEDS: Labetalol HCL 100 MG/20 ML VIAL 20 MG IVPUSH (19:57)
[2024-05-29] MEDS: vancomycin HCL 1,000 MG in 0.9 % Sodium Chloride 250 ML 270 MG IV (20:10)
[2024-05-29 20:15] LABS: INTERNATIONAL NORM RATIO 1.5 (0.9-1.1)
[2024-05-29 20:17] VITALS: BP 156/81; PULSE 55; RESP 18; TEMP 36.6; O2SAT 98
[2024-05-29 20:19] LABS: Lactic Acid 1.2 mmol/L (0.5-2.0)
[2024-05-29 21:10] LABS: Lipase 46 U/L (8-78)
--- NOTE | 2024-05-29 21:57 | PM.IMHP ---
History of Present Illness Date of Service: 05/29/24 <SHIRLEY Finley Last Filed: 05/29/24 22:47> Attending physician on admission: Ina Salmon <SHIRLEY Finley Last Filed: 05/29/24 22:47> Chief Complaint: swelling, SOB, leg pain <SHIRLEY Finley Last Filed: 05/29/24 22:47> Patient is a 43-year-old female with a past medical history significant for lupus, antiphospholipid syndrome with previous DVTs (on Coumadin), opiate use disorder (on methadone), CKD, left tibial ORIF with complications including infected hardware add grew Klebsiella and Enterobacter Serratia and was on long-term antibiotics including daptomycin and ultimately dalbavocine, HTN, and migraines, who presented to the [facility] on and off for the past few weeks. She reports in the past few days it has been worsening and she is having shortness of breath and pain with walking. She developed a sore on her posterior right calf that has had thin clear drainage, no erythema, pain, warmth or purulent drainage. She reports generalized joint pain, generalized weakness, nausea and vomiting about 2 to 3 times a day. She reports chills but no fever or sick contacts. She also reports her urine has been different, orange with ammonia odor and bubbles. <SHIRLEY Finley Last Filed: 05/29/24 22:47> Review of Systems Review of Systems: Difficult historian <SHIRLEY Finley Last Filed: 05/29/24 22:47> Constitutional: Constitutional: Denies body ache(s), Reports chills, Reports fatigue, Denies fever(s) and Reports headache(s) <SHIRLEY Finley Last Filed: 05/29/24 22:47> Eyes: Eyes: Denies change in vision <SHIRLEY Finley Last Filed: 05/29/24 22:47> ENT: Reports headache(s), Denies nasal congestion, Denies nasal discharge and Denies sore throat <SHIRLEY Finley Last Filed: 05/29/24 22:47> Cardiovascular: Cardiovascular: Denies chest pain, Denies rapid heart rate, Reports leg edema and Reports dyspnea <Anna Larsen PA-C - Last Filed: 05/29/24 22:47> Respiratory: Respiratory: Denies chest congestion, Denies cough, Reports dyspnea and Denies wheezing <Anna Larsen PA-C - Last Filed: 05/29/24 22:47> Gastrointestinal: Gastrointestinal: Reports constipation, Denies diarrhea, Reports nausea, Reports vomiting and Denies hematemesis <Anna Larsen PA-C - Last Filed: 05/29/24 22:47> Genitourinary: Genitourinary: Reports as per HPI, Denies dysuria and Denies urinary urgency <Anna Larsen PA-C - Last Filed: 05/29/24 22:47> Musculoskeletal: Musculoskeletal: Denies numbness and Denies tingling <Anna Larsen PA-C - Last Filed: 05/29/24 22:47> Integumentary/Breasts: Skin/Breast: Reports as per HPI and Reports lesions <Anna Larsen PA-C Last Filed: 05/29/24 22:47> Neurologic: Denies confusion, Reports headache(s), Denies memory loss, Denies numbness and Denies tingling <Anna Larsen PA-C - Last Filed: 05/29/24 22:47> Psychiatric: Psychiatric: Denies confusion and Denies memory loss <Anna Larsen PA-C - Last Filed: 05/29/24 22:47> Endocrine: Endocrine: Reports fatigue <Anna Larsen PA-C Last Filed: 05/29/24 22:47> Hematologic/Lymphatic: Hematologic/Lymphatic: Denies easy bleeding and Denies easy bruising <Anna Larsen PA-C - Last Filed: 05/29/24 22:47> Allergic/Immunologic: Allergic/Immunologic: Denies wheezing <Anna Larsen PA-C - Last Filed: 05/29/24 22:47> [facility] Medical History: Medical History (Updated 05/29/24 @ 22:46 by Anna Larsen PA-C) Left tibial fracture Acute renal failure superimposed on chronic kidney disease Cocaine abuse CKD (chronic kidney disease) Antiphospholipid antibody syndrome MDD (major depressive disorder), recurrent episode, moderate Opioid use disorder, severe, dependence Cocaine use disorder Cellulitis Substance abuse Seizures Candidemia Opioid use disorder, severe, dependence PTSD (post-traumatic stress disorder) Bipolar disorder Opiate abuse, continuous Pulmonary emboli DVT (deep venous thrombosis) Sander filter in place Pneumonia Lupus <Anna Larsen PA-C - Last Filed: 05/29/24 22:47> Surgical History: Surgical History History of appendectomy Hx of splenectomy <Anna Larsen PA-C - Last Filed: 05/29/24 22:47> Social History: Social History Household Members: Family Housing: Homeless Housing Other:: lIVING IN A Program House Do you presently have visiting nurse or other home services: No Alcohol intake: never Patient Tobacco Use Status: Current everyday Tobacco user Tobacco use type: Cigarette Cigarettes Per Day: 1 Years Smoked: 24 Smoked in Last 30 Days: Yes e-Cigarette/Vaping Use: Never Used Second Hand Smoke Exposure: No Use of substances other than those prescribed or required for medical reasons: Yes Substance Use Type: Crack/Cocaine Advance Directives: Yes Advance Directives on File: Yes Advance Directives Date on File: 02/14/21 Patient : No service: No Current occupational status: employed and student Sexual orientation: Did not discuss Cognitive needs: No Hearing needs: No Vision needs: No <Anna Larsen PA-C - Last Filed: 05/29/24 22:47> Narrative: smokes 4 ciagrettes/day, quitting. uses cocaine about 2x/mo intranasal and IV, no etoh. <Anna Larsen PA-C - Last Filed: 05/29/24 22:47> Meds Allergies/Adverse reactions: Allergies Allergy/AdvReac Type Severity Reaction Status Date / Time bee pollen [BEE STINGS] Allergy Severe Anaphylaxis Verified 05/29/24 16:36 codeine [CODEINE] Allergy Severe ANAPHYLAXIS Verified 05/29/24 16:36 Sulfa (Sulfonamide Allergy Severe ANAPHYLAXIS Verified 12/29/24 16:36 Antibiotics) [SULFA (SULFONAMIDE ANTIBIOTICS)] nut - unspecified [nut] Allergy Intermediate Rash Verified 05/29/24 16:36 shellfish derived Allergy Intermediate Rash Verified 05/29/24 16:36 fluoxetine [From Prozac] AdvReac Severe Migraine Verified 05/29/24 16:36 Fish Containing Products AdvReac Stomach Verified 05/29/24 16:36 Upset <Anna Larsen PA-C - Last Filed: 05/29/24 22:47> Home medications: Home Medications ?Medication ?Instructions ?Recorded ?Confirmed ?Last Taken ?Type methadone 10 mg/mL oral 125 mg PO DAILY 02/12/22 12/31/23 02/10/22 History concentrate (Methadose) doxepin 10 mg capsule 20 mg PO BEDTIME 12/31/23 12/31/23 Unknown History enoxaparin 40 mg/0.4 mL 40 mg subcut DAILY 12/31/23 12/31/23 Unknown History subcutaneous syringe (Lovenox) linezolid 600 mg/300 mL in 0.9 % 600 mg IV Q12H 12/31/23 Unknown History sodium chloride intravenous piggyback oxycodone 10 mg tablet 10 mg PO BID PRN 12/31/23 12/31/23 Unknown History tizanidine 2 mg capsule 2 mg PO Q8H PRN 12/31/23 12/31/23 Unknown History trazodone 150 mg tablet 100 mg PO BEDTIME PRN insomnia 12/31/23 12/31/23 Unknown History warfarin 2.5 mg tablet 2.5 mg PO 3XW 12/31/23 12/31/23 Unknown History <Anna Larsen PA-C - Last Filed: 05/29/24 22:47> Physical Exam Vital Signs and Narrative: Vital Signs: Last Vital Signs Temp 97.8 F 05/29/24 20:17 Pulse 55 05/29/24 20:17 Resp 18 05/29/24 20:17 BP 156/81 H 05/29/24 20:17 Pulse Ox 98 05/29/24 20:17 O2 Del Method Room Air 05/29/24 20:17 BMI result Body Mass Index 30.6 <Anna Larsen PA-C - Last Filed: 05/29/24 22:47> General: AOx3, no acute distress Resp: crackles bilateral lower lungs CVS: RRR, +murmur GI: +BS, NT, no distention Skin: Warm, dry. small ovoid lesion right posterior calf, does not appear infected, no purulent drainage, warmth or surrounding erythema Neuro: Cranial nerves II-XII grossly intact bilaterally. Motor grossly intact bilaterally Extremities: 2-3+ pitting edema Psych: Appropriate affect <Anna Larsen PA-C - Last Filed: 05/29/24 22:47> Const: General: No confusion <Anna Larsen PA-C - Last Filed: 05/29/24 22:47> Orientation/consciousness: No confusion <Anna Larsen PA-C - Last Filed: 05/29/24 22:47> Neuro: General: No confusion <Anna Larsen PA-C - Last Filed: 05/29/24 22:47> Results Labs CBC and Chem 7: 05/29/24 18:20 05/29/24 18:20 <Anna Larsen PA-C - Last Filed: 05/29/24 22:47> Labs: Laboratory Results - last 24 hr 05/29/24 05/29/24 18:20 19:56 MCV 94.0 MCH 30.4 MCHC 32.3 RDW 19.6 H Plt Count 237 MPV 12.1 Immature Gran % (Auto) 1.0 H Neut % (Auto) 84.5 H Lymph % (Auto) 5.1 L [place] % (Auto) 9.2 Eos % (Auto) 0.1 Baso % (Auto) 0.1 Lymph # (Auto) 0.8 L [place] # (Auto) 1.5 H Eos # (Auto) 0.0 Baso # (Auto) 0.0 Abs Immat Gran (auto) 0.16 H Absolute Neuts (auto) 13.6 H Absolute Nucleated RBC 0.820 H Nucleated RBC % (auto) 5.1 H PT 18.0 H INR 1.5 H Anion Gap 20 Estim Creat Clear Calc 10.4 Estimated GFR 5 Random Glucose 68 Lactic Acid 1.2 Calcium 7.5 L D Magnesium 2.1 Total Bilirubin 0.5 AST 355 H ALT 377 H Alkaline Phosphatase 189 H Total Creatine Kinase 587 H C-Reactive Protein 2.43 H B-Natriuretic Peptide 20267 H Total Protein 6.4 L Albumin 2.5 L Lipase 46 <Anna Larsen PA-C - Last Filed: 05/29/24 22:47> Assessment and Plan (1) Anasarca: Status: Acute <RENATO FinleyC - Last Filed: 05/29/24 22:47> (2) GERRI (acute kidney injury): Status: Acute <RENATO FinleyC - Last Filed: 05/29/24 22:47> (3) CKD (chronic kidney disease) stage 3, GFR 30-59 ml/min: Status: Acute <Anna Larsen RENATOC - Last Filed: 05/29/24 22:47> (4) Elevated LFTs: Status: Acute <Anna Larsen RENATOC - Last Filed: 05/29/24 22:47> (5) Metabolic acidosis: Status: Acute <Anna Larsen SHIRLEY - Last Filed: 05/29/24 22:47> (6) Obesity (BMI 30.0-34.9): Status: Chronic <Anna Larsen SHIRLEY - Last Filed: 05/29/24 22:47> (7) Substance abuse: Status: Chronic <Anna Larsen SHIRLEY - Last Filed: 05/29/24 22:47> (8) Tobacco abuse: Status: Chronic <Anna Larsen SHIRLEY - Last Filed: 05/29/24 22:47> Patient is a 43-year-old female with a past medical history significant for lupus, antiphospholipid syndrome with previous DVTs (on Coumadin), opiate use disorder (on methadone), CKD, left tibial ORIF with complications including infected hardware add grew Klebsiella and Enterobacter Serratia and was on long-term antibiotics including daptomycin and ultimately dalbavocine, HTN, and migraines, who presented to the [facility] [place] on and off for the past few weeks. She reports in the past few days it has been worsening and she is having shortness of breath and pain with walking. BNP largely elevated, imaging consistent with anasarca. Anasarca - unclear etiology, ? [place]ph[place] [address] - abdominopelvic CT with ascites, question cirrhosis, severe constipation, small bilateral pleural effusions, no cirrhosis - chest x-ray with small bilateral pleural effusions and bilateral pulmonary edema - given furosemide 100 mg in ED, nephrology consult for further diuresis tomorrow - UA to assess for proteins - mild elevation in WBCs, given ceftriaxone and vancomycin in ED, no obvious source of infection, discontinue antibiotic. Blood cultures x2 pending, no sepsis. - echocardiogram - consider diagnostic paracentesis - cardiac diet - consider cardiac consult pending echocardiogram GERRI on CKD -- likely cardiorenal - nephrology consult to determine further diuretics - UA ordered - monitor BMP - no IV fluids given anasarca Elevated LFTs - secondary to edema - monitor LFTs Metabolic acidosis secondary to GERRI - monitor BMP as above HTN - BP elevated in ED, given labetalol 20 mg - monitor BPs - continue home meds Lupus - no current medications, patient reports she has not been on medication in many years Antiphospholipid syndrome with previous DVTs - continue Coumadin Opiate use disorder - continue methadone Tobacco use disorder - smoking cessation encouraged Obesity - BMI 30.6 - weight loss encouraged Med reconciliation not completed upon admission Full code VTE prophylaxis: Coumadin Patient with anasarca with unclear etiology complicated by likely cardiorenal GERRI, requiring admission for at least 2 midnights stay for further workup, treatment and monitoring. <Anna Larsen PA-C - Last Filed: 05/29/24 22:47> Patient is a 43-year-old female with a past medical history significant for lupus, antiphospholipid syndrome with previous DVTs (on Coumadin), opiate use disorder (on methadone), CKD, left tibial ORIF with complications including infected hardware add grew Klebsiella and Enterobacter Serratia and was on long-term antibiotics including daptomycin and ultimately dalbavocine, HTN, and migraines, who presented to the [facility] on and off for the past few weeks. She reports in the past few days it has been worsening and she is having shortness of breath and pain with walking. BNP largely elevated, imaging consistent with anasarca. Anasarca - unclear etiology - [place] [address] - abdominopelvic CT with ascites, question cirrhosis, severe constipation, small bilateral pleural effusions, no cirrhosis - chest x-ray with small bilateral pleural effusions and bilateral pulmonary edema - given furosemide 100 mg in ED, nephrology consult for further diuresis tomorrow - UA to assess for proteins - mild elevation in WBCs, given ceftriaxone and vancomycin in ED, no obvious source of infection, discontinue antibiotic. Blood cultures x2 pending, no sepsis. - echocardiogram - consider diagnostic paracentesis - cardiac diet - consider cardiac consult pending echocardiogram GERRI on CKD -- likely cardiorenal - nephrology consult to determine further diuretics - UA ordered - monitor BMP - no IV fluids given anasarca Elevated LFTs - secondary to edema - monitor LFTs Metabolic acidosis secondary to GERRI - monitor BMP as above HTN - BP elevated in ED, given labetalol 20 mg - monitor BPs - continue home meds Lupus - no current medications, patient reports she has not been on medication in many years Antiphospholipid syndrome with previous DVTs - continue Coumadin Opiate use disorder - continue methadone Tobacco use disorder - smoking cessation encouraged Obesity - BMI 30.6 - weight loss encouraged Med reconciliation not completed upon admission Full code VTE prophylaxis: Coumadin Patient with anasarca with unclear etiology complicated by likely cardiorenal GERRI, requiring admission for at least 2 midnights stay for further workup, treatment and monitoring. <Ina Salmon MD - Last Filed: 05/29/24 23:15> Quality Stroke Does the patient have a stroke diagnosis?: No <Anna Larsen PA-C - Last Filed: 05/29/24 22:47> VTE Prior VTE?: Yes <Anna Larsen PA-C - Last Filed: 05/29/24 22:47> VTE Risk Level:: Medical - moderate - high <Anna Larsen PA-C - Last Filed: 05/29/24 22:47> VTE Device Contraindication: Treatment Not Indicated <Anna Larsen PA-C - Last Filed: 05/29/24 22:47> VTE Drug Contraindication: N/A - Med Ordered <Anna Larsen PA-C - Last Filed: 05/29/24 22:47>
--- NOTE | 2024-05-29 23:00 | PC.NURSE ---
MD aware of BP.
[2024-05-29 23:01] VITALS: BP 197/110; PULSE 67; RESP 16; TEMP 36.7; O2SAT 99
[2024-05-29 23:19] LABS: Appearance Urine Cloudy; Color Urine Yellow; Glucose Urine UA Negative (Negative); Leukocyte Esterase Urine Moderate (2+) (Negative); Nitrite Urine Positive (Negative); PH 5.5 (5.0-9.0); Specific Gravity - Urine 1.015 (1.005-1.025); UMIC TRIGGER UACC YES; Urine Blood Moderate (2+) (Negative); Urine Ketones Negative (Negative); Urine Protein 300 (3+) mg/dL (Neg-Trace)
[2024-05-29] MEDS: hydrALAZINE HCl 20 MG/ML VIAL IVPUSH (23:29)
[2024-05-29 23:31] LABS: Bacteria Urine 4+ (None Seen); Squamous Epithelial Cell Urine 0-2 /HPF (0-2); UACC Culture Trigger YES; WBC Urine >50 /HPF (0-5)
[2024-05-29 23:32] LABS: Amphetamine Screen Urine Not Detected (Not Detect); Barbiturates, Urine Not Detected (Not Detect); Benzodiazepines Screen Urine Not Detected (Not Detect); Buprenorphine Scr Not Detected (Not Detect); Cannabinoid Screen Urine Not Detected (Not Detect); Cocaine Screen Urine POSITIVE (Not Detect); Fentanyl, urine POSITIVE (Not Detect); Methadone Screen, Urine Positive (Not Detect); Opiate Screen Urine Not Detected (Not Detect); Oxycodone Screen Urine Not Detected (Not Detect); Phencyclidine Screen Urine Not Detected (Not Detect)
[2024-05-30] VITALS (10 sets, daily range): BP systolic 148–217; BP diastolic 91–123; PULSE 68–95; RESP 15–19; TEMP 36.6; O2SAT 95–98
--- NOTE | 2024-05-30 00:30 | PC.NURSE ---
MD aware of BP, no further interventions per MD.
[2024-05-30] MEDS: hydrALAZINE HCl 20 MG/ML VIAL IVPUSH (02:01)
[2024-05-30] MEDS: levoFLOXacin/D5W 750 MG/150 ML PIGGYBACK 100 MG IV (02:01)
[2024-05-30] MEDS: 0.9 % Sodium Chloride Flush 3 ML SYRINGE IVFLUSH ×3 (02:02→17:26)
--- NOTE | 2024-05-30 02:58 | MHC.EDTECH ---
This pct just assumed care of Patient ,vitals taken ,Patient was given chicken salad sandwich and joey dayna for snack .
[2024-05-30] MEDS: Acetaminophen 325 MG TABLET 650 MG PO (03:51)
[2024-05-30 04:18] LABS: Creatinine Urine 45.02 mg/dL
[2024-05-30 04:40] LABS: Total Protein Urine Random 462 mg/dL (<12)
[2024-05-30 05:25] LABS: Basophils Percent Auto 0.2 % (0-2); Eosinophils Absolute Auto 0.1 X10*3/uL (0.0-0.4); Eosinophils Percent Auto 0.6 % (0-4); Hematocrit 32.7 % (37.0-47.0); Hemoglobin 10.9 g/dl (12.0-16.0); Imm Gran Abs Auto 0.11 X10*3/uL (0.00-0.03); Imm Gran Pct Auto 0.9 % (0.0-0.4); Lymphocytes Absolute Auto 0.8 X10*3/uL (1.2-4.9); Lymphocytes Percent Auto 6.3 % (20-40); MANUAL DIFF FLAG NO; Mean Corpuscular HGB Conc 33.3 g/dl (31.0-35.0); Mean Corpuscular Hemoglobin 30.9 pg (27.0-33.0); Mean Corpuscular Volume 92.6 fL (80.0-98.0); Mean Platelet Volume 12.6 fL (9.4-12.3); Monocytes Absolute Auto 1.1 X10*3/uL (0.1-1.2); Monocytes Percent Auto 8.3 % (2-11); Neutrophils Absolute Auto 10.7 x10*3/uL (2.0-8.3); Neutrophils Percent Auto 83.7 % (45-73); Platelet Count 224 X10*3/uL (160-400); Red Blood Count 3.53 X10*6/uL (4.20-5.50); Red Cell Distribution Width 19.5 % (11.0-16.0); White Blood Count 12.7 X10*3/uL (4.8-10.8)
[2024-05-30 05:26] LABS: NRBC Pct Auto 5.8 /100WBC (0.0-0.2)
[2024-05-30 05:46] LABS: Alanine Aminotransferase 328 U/L (0-31); Albumin Level 2.1 g/dL (3.5-5.0); Alkaline Phosphatase 164 U/L (39-117); Anion Gap 20 (12-20); Aspartate Amino Transferase 268 U/L (5-31); Bilirubin Direct 0.3 mg/dL (0.0-0.5); Bilirubin Total 0.5 mg/dL (0.0-1.0); Blood Urea Nitrogen 125 mg/dL (9-16); Calcium 7.4 mg/dL (8.4-10.2); Carbon Dioxide 11 mmol/L (22-29); Chloride 110 mmol/L (96-108); Creatinine Clr Calc Pharmacy 10.5; Estimated Glomerular Filt Rate 5; Glucose Random 99 mg/dL (60-115); Potassium 4.7 mmol/L (3.3-5.1); Sodium 136 mmol/L (135-145); Total Protein 5.7 g/dL (6.5-8.0)
--- NOTE | 2024-05-30 06:06 | PC.NURSE ---
Patient arrived to ED overflow from main ED. Safe Deposit Clerk assumed care of patient at 03:00. A&Ox4. C/o headache this morning without vision changes and requested tylenol. Prn tylenol given with +effect. No further complaints of headache/pain. BP improved from recent HTN noted in main ED. Discussed ? of tele monitoring need for pt given HTN requiring labetalol x1 and hydralazine x2, elevated BNP with ED charge though tele was deferred by covering Dr. Salmon. SBP remains less than 170 since arrival. 1+pitting edema with rash/redness noted to hands that pt reports started with increasing edema at home. 2+ pitting edema to BUE, 3+ pitting edema to BLE. +equal radial and dp/pt pulses, +cms. Echo ordered and pending. MAEE. Pt denies dizziness, chest pain, palpitations, sob, and n/v. Breathing is even and unlabored without distress on room air. IV abx finished infusing via left neck #18 EJ IV without issue. Site is c/d/i without redness or drainage. Pt is voiding cyu at bedside commode due to contact precautions for MRSA hx. Stands and pivots to commode steadily without issue. Safety measures in place. Pt awaiting bed assignment. Plan of care continues.
--- NOTE | 2024-05-30 07:00 | CA_ITS ---
Transthoracic Echocardiogram Patient (Last, First, Middle): Melita Butler E Gender: Female Date of : 1980 Age: 43 Procedure Date: 05/30/2024 Procedure Type: Transthoracic Echocardiogram Location: ER Height: 172.72 cm Weight: 91.17 kg BSA: 2.05 m2 Heart Rate: bpm BP: 168 / 97 mmHg Inter Com Installer: GILMA Referring MD: Ina Salmon MD [facility] Hospitalist: Anselmo Tang MD Symptoms: ?CHF Study Quality: Adequate ECG Rhythm: Sinus Conclusions: - 1. Mildly reduced LV ejection fraction 45-50% with pseudonormal filling pattern 2. Moderately dilated right ventricle with moderately reduced RV systolic function 3. At least moderately dilated left atrium 4. Moderate to moderately severe mitral regurgitation 5. Moderate tricuspid regurgitation with moderately elevated right ventricular systolic pressure and significantly elevated right atrial pressures 6. Mild aortic regurgitation 7. Upper limits of normal ascending aortic size 8. No gross pericardial effusion Findings Left Ventricle Normal left ventricular cavity size. There is normal left ventricular wall thickness. The left ventricular systolic function is mildly decreased. The visually estimated ejection fraction is between 45-50%. There is mild global hypokinesis. Spectral Doppler is indicative of a pseudonormal filling pattern. Peak GLS is -14.2%, moderately reduced. Right Ventricle Moderately increased right ventricular cavity size. There is moderately decreased right ventricular systolic function. Atria The left atrium is moderately dilated. There is no evidence of interatrial shunt. The right atrium is mildly dilated. Aortic Valve Normal aortic valve structure and function. There is no aortic valve stenosis. There is mild aortic valve regurgitation. Mitral Valve There is mild anterior and posterior mitral leaflet thickening. There is moderate to severe mitral valve regurgitation. There is no mitral valve stenosis. Pulmonic Valve The pulmonic valve is likely normal. There is mild pulmonic valve regurgitation. Tricuspid Valve Normal tricuspid valve structure. There is moderate tricuspid valve regurgitation. Significantly elevated right atrial pressure. Moderate pulmonary hypertension is present. Great Vessels All visible segments of the aorta are normal in size. The pulmonary artery was not well visualized. Venous The inferior vena cava is severely dilated and collapses less than 50% with inspiration. Pericardium/Pleural There is no evidence of pericardial effusion. Prior Study Comparison Changes noted compared to prior study dated: 02/15/2021. RV is dilated with reduced systolic function. LV systolic function is mildly reduced. Mitral regurgitation appears moderately severe with moderately elevated right ventricular systolic pressure Measurements 2D Linear Measurements IVSd: 1.08 0.6-0.9/0.6-1.0 cm LVIDd: 5.04 3.9-5.3/4.2-5.9 cm LVIDd Index: 2.46 2.4-3.2/2.2-3.1 cm/m2 LVIDs: 3.85 2.0-3.6 cm LVPWd: 1.05 0.7-1.1 cm LA Diam: 4.80 2.7-3.8/3.0-4.0 cm LAIDs Index: 2.34 1.5-2.3 cm/m2 LV Mass: 339.80 67-162/88-224 g LV Mass Index: 165.76 43-95/49-115 g/m2 LVOT Diam: 2.20 3.0+(-)1.3 cm 2D Systolic Function EF 4C: 37.00 >55% EF 2C: 55.40 >55% EF BiP: 47.80 >55% Mitral Valve MV Pk E: 1.24 MV PK A: 0.71 MV Decel Time: 150.00 E/A: 1.80 E'Lateral: 8.70 E'Medial: 5.44 E/E' Med: 22.80 E/E' Lat: 14.30 PHT: 44.00 MVA PHT: 5.00 Decel [place]: 8.29 MR Vol - PW Dopp: 47.60 MR VTI: 2.38 MR ERO: 20.00 MR Alias Bg: 0.39 MR RAD: 0.70 Aortic Valve AoV Pk Bg: 1.71 AoV Mn Bg: 1.08 AoV VTI: 0.30 AoV Pk Grad: 12.00 Aov Mn Grad: 6.00 MERA Cont.VTI: 2.96 AI Pk Bg: 4.79 AI [place]: 1.87 LVOT LVOT Pk Bg: 1.25 LVOT Mn Bg: 0.85 LVOT VTI: 0.23 LVOT Pk Grad: 6.00 LVOT Mn Grad: 3.00 LVOT Diam: 2.20 LVOT Area: 3.80 Diastolic Function MV Pk E: 1.24 MV Pk A: 0.71 E/A: 1.80 E'Medial: 5.44 E/E' Med: 22.80 E' Laterial: 8.70 E/E' Lat: 14.30 Right Ventricle TAPSE (mm): 11.20 TVS' Bg: 8.49 Tricuspid Valve TR Pk Bg: 3.21 TR Pk Grad: 41.00 RA Press: 15.00 RVSP: 56.00 Great Vessels Aorta Sinus of Valsalva: 3.00 2.0-3.5 cm Ao Asc: 3.50 2.1-3.4 cm Pulmonary Valve PV Pk Bg: 1.06 Peak PV Grad: 4.00 Updated in Other Vendor System with Status of Final Anselmo Tang MD electronically signed on 05/30/2024 3:34:04 PM with status of Final
--- NOTE | 2024-05-30 07:20 | PC.NURSE ---
Awaiting Bicarb per pharmacy at this time.
--- NOTE | 2024-05-30 08:01 | PC.NURSE ---
Provider changing admission from med-surg to tele d/t Bicarb of 11 and acute renal failure. Bicarb push, Bicarb drip and telemetry monitoring ordered. life trainer Becky notified that pt. has to be moved back to main ED d/t no tele monitoring in overflow.
--- NOTE | 2024-05-30 08:25 | PC.NURSE ---
Report given to Kim COFFEY in main ED
[2024-05-30] MEDS: Sodium Bicarbonate 8.4% 50 MEQ/50 ML SYRINGE IVPUSH (09:26)
--- NOTE | 2024-05-30 09:43 | HO.PM.IMPN ---
Subjective Subjective Date of Service: 05/30/24 Interval History: seen and examined this AM complaining of leg pain requesting her baseline meds including methadone Review of Systems Negative except HPI/interval history. Physical Exam Vital Signs: Vital Signs: Last Vital Signs Temp 97.8 F 05/30/24 05:26 Pulse 68 05/30/24 05:26 Resp 16 05/30/24 05:26 BP 168/97 H 05/30/24 05:26 Pulse Ox 98 05/30/24 05:26 O2 Del Method Room Air 05/30/24 05:26 BMI result Body Mass Index 30.6 Const: Other: General - no acute distress, appears uncomfortble Cardiovascular - regular rate and rhythm, S1-S2 Lungs - normal respiratory effort, clear to auscultation bilaterally, no wheezing Abdomen - soft, nontender, no rebound or guarding Extremities - 3+ pitting edema b/l LE Neuro - awake and alert, no focal deficits Objective Data Active Medications Acetaminophen (Acetaminophen 325 Mg Tablet) 650 mg PO Q6H PRN PRN Reason: Pain, Mild 1-3,fever,headache Last Admin: 05/30/24 03:51 Dose: 650 mg Documented By: DAYANARA Calcium Carbonate (Calcium Carbonate 750 Mg Tab.Chew) 750 mg PO Q4H PRN PRN Reason: Heartburn Hydromorphone HCl (Hydromorphone Hcl 0.5 Mg/0.5 Ml Syringe) 0.25 mg IVPUSH Q4H PRN; Protocol PRN Reason: Pain, Severe (Pain Scale 7-10) Levofloxacin (Levaquin) 750 mg in 150 mls @ 100 mls/hr IV Q48H SOPHIE Last Infusion: 05/30/24 03:31 Dose: Infused Documented By: DAYANARA Sodium Bicarbonate 150 meq/ (Dextrose) 1,000 mls @ 50 mls/hr IV .Q20H [facility] Magnesium Hydroxide (Milk Of Magnesia 30 Ml Oral.Susp) 30 ml PO DAILY PRN PRN Reason: Constipation Melatonin (Melatonin 3 Mg Tablet) 6 mg PO BEDTIME PRN PRN Reason: Insomnia Ondansetron HCl (Ondansetron Hcl 4 Mg/2 Ml Vial) 4 mg IVPUSH Q8H PRN PRN Reason: Nausea and Vomiting Sodium Chloride (0.9 % Sodium Chloride Flush 3 Ml Syringe) 3 ml IVFLUSH QSHIFT [facility] Last Admin: 05/30/24 09:26 Dose: 3 ml Documented By: TATE Labs 05/30/24 04:47 05/30/24 04:47 Labs: Laboratory Results - last 24 hr 05/29/24 05/29/24 05/29/24 18:20 19:56 23:06 MCV 94.0 MCH 30.4 MCHC 32.3 RDW 19.6 H Plt Count 237 MPV 12.1 Immature Gran % (Auto) 1.0 H Neut % (Auto) 84.5 H Lymph % (Auto) 5.1 L [place] % (Auto) 9.2 Eos % (Auto) 0.1 Baso % (Auto) 0.1 Lymph # (Auto) 0.8 L [place] # (Auto) 1.5 H Eos # (Auto) 0.0 Baso # (Auto) 0.0 Abs Immat Gran (auto) 0.16 H Absolute Neuts (auto) 13.6 H Absolute Nucleated RBC 0.820 H Nucleated RBC % (auto) 5.1 H Smear Path Review SEE NOTE PT 18.0 H INR 1.5 H Anion Gap 20 Estim Creat Clear Calc 10.4 Estimated GFR 5 Random Glucose 68 Lactic Acid 1.2 Calcium 7.5 L D Magnesium 2.1 Total Bilirubin 0.5 Direct Bilirubin AST 355 H ALT 377 H Alkaline Phosphatase 189 H Total Creatine Kinase 587 H C-Reactive Protein 2.43 H B-Natriuretic Peptide 25912 H Total Protein 6.4 L Albumin 2.5 L Lipase 46 Urine Color Yellow Urine Appearance Cloudy Urine pH 5.5 Ur Specific [place] 1.015 Urine Protein 300 (3+) H Urine Glucose (UA) Negative Urine Ketones Negative Urine Blood Moderate (2+) H Urine Nitrite Positive H Ur Leukocyte Esterase Moderate (2+) H Urine RBC 3-5 H Urine WBC >50 H Ur Squamous Epith Cells 0-2 Urine Bacteria 4+ Hyaline Casts 3-5 U Random Total Protein 462 H Urine Creatinine 45.02 Urine Opiates Screen Not Detected Ur Buprenorphine Scrn Not Detected Ur Oxycodone Screen Not Detected Urine Methadone Screen Positive H Urine Fentanyl Screen POSITIVE H Ur Barbiturates Screen Not Detected Ur Phencyclidine Scrn Not Detected Ur Amphetamines Screen Not Detected U Benzodiazepines Scrn Not Detected Urine Cocaine Screen POSITIVE H U Marijuana (THC) Screen Not Detected 05/30/24 04:47 MCV 92.6 MCH 30.9 MCHC 33.3 RDW 19.5 H Plt Count 224 MPV 12.6 H Immature Gran % (Auto) 0.9 H Neut % (Auto) 83.7 H Lymph % (Auto) 6.3 L [place] % (Auto) 8.3 Eos % (Auto) 0.6 Baso % (Auto) 0.2 Lymph # (Auto) 0.8 L [place] # (Auto) 1.1 Eos # (Auto) 0.1 Baso # (Auto) 0.0 Abs Immat Gran (auto) 0.11 H Absolute Neuts (auto) 10.7 H Absolute Nucleated RBC 0.740 H Nucleated RBC % (auto) 5.8 H Smear Path Review PT INR Anion Gap 20 Estim Creat Clear Calc 10.5 Estimated GFR 5 Random Glucose 99 Lactic Acid Calcium 7.4 L Magnesium Total Bilirubin 0.5 Direct Bilirubin 0.3 AST 268 H ALT 328 H Alkaline Phosphatase 164 H Total Creatine Kinase C-Reactive Protein B-Natriuretic Peptide Total Protein 5.7 L Albumin 2.1 L Lipase Urine Color Urine Appearance Urine pH Ur Specific [place] Urine Protein Urine Glucose (UA) Urine Ketones Urine Blood Urine Nitrite Ur Leukocyte Esterase Urine RBC Urine WBC Ur Squamous Epith Cells Urine Bacteria Hyaline Casts U Random Total Protein Urine Creatinine Urine Opiates Screen Ur Buprenorphine Scrn Ur Oxycodone Screen Urine Methadone Screen Urine Fentanyl Screen Ur Barbiturates Screen Ur Phencyclidine Scrn Ur Amphetamines Screen U Benzodiazepines Scrn Urine Cocaine Screen U Marijuana (THC) Screen Assessment and Plan (1) Acute renal failure superimposed on chronic kidney disease: Status: Acute Plan 43 yo F with multiple medical problems who presents with edema and shortness of breath. Found to have GERRI + anasarca 1. GERRI on CKD, likely stage 3 1a. Anasarca - question nephrotic syndrome 1b. metabolic acidosis 1c. Possible UTI baseline SCr under 2, now presenting with SCr over 8; mild improvements since admit nephrology consult -- plan for temp dialysis, ordered IV bicarb drip for the time being empiric renally dose levaquin 2. Transaminitis question related to hepatic congestion no evidence of billiary obstruction on CT if rises, will puruse further work up 3. Anti-phospholipid syndrome on coumadin, follow INR 4. History of lupus reports not on med for years 5. Chronic opiate dependence on methadone will ask addiction med input given acute renal failure 6. HTN poorly controlled; resume home meds and re-eval Full Code DVT pptx - coumadin Quality Stroke Does the patient have a stroke diagnosis?: No VTE Prior VTE?: Yes VTE Risk Level:: Medical - moderate - high VTE Device Contraindication: Treatment Not Indicated VTE Drug Contraindication: N/A - Med Ordered
[2024-05-30] MEDS: HYDROmorphone HCl 0.5 MG/0.5 ML SYRINGE 0.25 MG IVPUSH ×2 (09:57→20:16)
--- NOTE | 2024-05-30 10:38 | PHA.MEDREC ---
Addendum entered by Emilia Tyson [facility] 05/30/24 11:32: I called [facility] coumadin [facility], they stated this is no longer their patient. Pt was last dosed 03/21: 5mg on and Thu, 2.5mg the remaining days of the week. Pt does not know any information of the new clinic other than that it is in [place]. Pt states 2 mg daily, although there are no claims for this. Addendum entered by Emilia Tyson [facility] 05/30/24 11:30: Reviewed by [facility]. Original Note: Pharmacy Consult ? Medication Reconciliation Pharmacy has completed the medication reconciliation. Spoke with patient and she was able to confirm medications with me. She confirmed she has an over abundance of medications at home since she was recently hospitalized for 2 months she stated. She confirmed her Clonidine 0.1mg tab and Clonidine 0.2mg tabs and confirmed she is taking the Clonidine 0.1mg tab twice daily and the Clonidine 0.2mg she takes at bedtime. She confirmed her Hydroxyzine changed and instead of taking 1 3 25mg tabs daily he is now taking Hydroxyzine 50mg tabs three times a day. She confirmed the Methadone and stated she does 100mg in the morning of it and stated she is doing 95mg in the evening around 1700 and confirmed she is getting her Methadone at [facility] in [place]. She confirmed her Warfarin and stated she is now taking 2 mg once daily instead of 2.5mg tabs 3 times a week and states shes been doing it for a bit per the [facility], she was not sure the place where she was getting the Warfarin but states it is in [place]. I found the provider and found it was [facility]. I called and was not able to speak to anyone at this time and left a voicemail to call and confirm the Warfarin. I confirmed the Warfarin 2mg tab once daily since the patient was set she was taking it this way now. She confirmed she took all her medications Thursday night.
[2024-05-30] MEDS: Sodium Bicarbonate 8.4% 150 MEQ in Dextrose 5 % 850 ML 50 MEQ IV (10:41)
--- NOTE | 2024-05-30 11:08 | PC.NURSE ---
Pt to IR at this time for dialysis catheter placement.
[2024-05-30 11:13] LABS: INTERNATIONAL NORM RATIO 1.6 (0.9-1.1); Prothrombin Time 19.2 SEC (10.9-12.4)
--- NOTE | 2024-05-30 11:32 | HE.PHANOTE ---
Methadone confirmation Patient gets take home bottles from [facility]. They get 100mg in am and 95mg pm. Last dose was 05/29
--- NOTE | 2024-05-30 12:29 | PM.PROC ---
Brief Operative Note Date of procedure: 05/30/24 Pre-op diagnosis: GERRI Post-op diagnosis: same Procedure: Taras Placement Right IJ 20 cm Trialysis catheter placed using US and FL. Tip at cavoatrial junction. Ok for use. No immediate complications.
--- NOTE | 2024-05-30 12:36 | P.CONNP_ITS ---
History of Present Illness Reason for Consult Consult date: 05/30/24 Chief Complaint Chief complaint: Anasaa History of Present Illness Narrative: Patient is a 43-year-old female with a past medical history significant for lupus, antiphospholipid syndrome with previous DVTs (on Coumadin), opiate use disorder (on methadone), CKD, left tibial ORIF with complications including infected hardware add grew Klebsiella and Enterobacter Serratia and was on long- term antibiotics including daptomycin and ultimately dalbavocine, HTN, and migraines, who presented to the [facility] on and off for the past few weeks. She reports in the past few days it has been worsening and she is having shortness of breath and pain with walking. She developed a sore on her posterior right calf that has had thin clear drainage, no erythema, pain, warmth or purulent drainage. She reports generalized joint pain, generalized weakness, nausea and vomiting about 2 to 3 times a day. She reports chills but no fever or sick contacts. She has a complicated history with SLE. Underwent treament with cytoxan and PLEX in the past. Gradual progression of kidney disease. Few months ago, cr was in the 4s and currently at 8mg/dL PMFSH Past Medical History Medical History Left tibial fracture Acute renal failure superimposed on chronic kidney disease Cocaine abuse CKD (chronic kidney disease) Antiphospholipid antibody syndrome MDD (major depressive disorder), recurrent episode, moderate Opioid use disorder, severe, dependence Cocaine use disorder Cellulitis Substance abuse Seizures Candidemia Opioid use disorder, severe, dependence PTSD (post-traumatic stress disorder) Bipolar disorder Opiate abuse, continuous Pulmonary emboli DVT (deep venous thrombosis) Sander filter in place Pneumonia Lupus Surgical History Surgical History History of appendectomy Hx of splenectomy Social History Social History Household Members: None Housing: Apartment Housing Other:: lIVING IN A Program House Do you presently have visiting nurse or other home services: No Alcohol intake: never Patient Tobacco Use Status: Current everyday Tobacco user Tobacco use type: Cigarette Cigarettes Per Day: 2 Years Smoked: 24 Smoked in Last 30 Days: Yes e-Cigarette/Vaping Use: Never Used Second Hand Smoke Exposure: No Use of substances other than those prescribed or required for medical reasons: Yes Substance Use Type: Crack/Cocaine Substance Use Frequency: Occasionally Last Used Substance: Days (ago) Have you been hit, kicked, punched, or otherwise hurt by someone within the past year? If so, by whom?: No Do you feel safe in your current relationship?: No Current Relationship Is there a partner from a previous relationship who is making you feel unsafe now?: No Are you made to feel afraid or neglected: No Advance Directives: Yes Advance Directives on File: Yes Advance Directives Date on File: 02/14/21 Do you have a plan to hurt others: No Plan Nutrition Risks: No Nutritional Risk Patient : No : No Poor oral hygiene: No service: No Current occupational status: employed and student Sexual orientation: Did not discuss Cognitive needs: No Hearing needs: No Vision needs: No Meds Allergies Allergy/AdvReac Type Severity Reaction Status Date / Time bee pollen [BEE STINGS] Allergy Severe Anaphylaxis Verified 05/29/24 16:36 codeine [CODEINE] Allergy Severe ANAPHYLAXIS Verified 05/29/24 16:36 Sulfa (Sulfonamide Allergy Severe ANAPHYLAXIS Verified 05/29/24 16:36 Antibiotics) [SULFA (SULFONAMIDE ANTIBIOTICS)] nut - unspecified [nut] Allergy Intermediate Rash Verified 05/29/24 16:36 shellfish derived Allergy Intermediate Rash Verified 05/29/24 16:36 fluoxetine [From Prozac] AdvReac Severe Migraine Verified 05/29/24 16:36 Fish Containing Products AdvReac Stomach Verified 05/29/24 16:36 Upset Active Medications: Current Medications Acetaminophen (Acetaminophen 325 Mg Tablet) 650 mg PO Q6H PRN PRN Reason: Pain, Mild 1-3,fever,headache Last Admin: 05/30/24 03:51 Dose: 650 mg Amlodipine Besylate (Amlodipine Besylate 10 Mg Tablet) 10 mg PO DAILY [facility]; Protocol Calcium Carbonate (Calcium Carbonate 750 Mg Tab.Chew) 750 mg PO Q4H PRN PRN Reason: Heartburn Clonidine HCl (Clonidine Hcl 0.1 Mg Tablet) 0.1 mg PO BID [facility]; Protocol Clonidine HCl (Clonidine Hcl 0.2 Mg Tablet) 0.2 mg PO BEDTIME [facility]; Protocol Hydromorphone HCl (Hydromorphone Hcl 0.5 Mg/0.5 Ml Syringe) 0.25 mg IVPUSH Q4H PRN; Protocol PRN Reason: Pain, Severe (Pain Scale 7-10) Last Admin: 05/30/24 09:57 Dose: 0.25 mg Levofloxacin (Levaquin) 750 mg in 150 mls @ 100 mls/hr IV Q48H [facility] Last Infusion: 05/30/24 03:31 Dose: Infused Sodium Bicarbonate 150 meq/ (Dextrose) 1,000 mls @ 50 mls/hr IV .Q20H [facility] Last Admin: 05/30/24 10:41 Dose: 50 mls/hr Magnesium Hydroxide (Milk Of Magnesia 30 Ml Oral.Susp) 30 ml PO DAILY PRN PRN Reason: Constipation Melatonin (Melatonin 3 Mg Tablet) 6 mg PO BEDTIME PRN PRN Reason: Insomnia Methadone HCl (Methadone Hcl 20 Mg/2 Ml Oral.Conc) 100 mg PO DAILY [facility] Methadone HCl (Methadone Hcl 20 Mg/2 Ml Oral.Conc) 95 mg PO DAILY@1700 [facility] Ondansetron HCl (Ondansetron Hcl 4 Mg/2 Ml Vial) 4 mg IVPUSH Q8H PRN PRN Reason: Nausea and Vomiting Sodium Chloride (0.9 % Sodium Chloride Flush 3 Ml Syringe) 3 ml IVFLUSH QSHIFT [facility] Last Admin: 05/30/24 09:26 Dose: 3 ml Warfarin Sodium (Warfarin Sodium 2 Mg Tablet) 2 mg PO DAILY [facility] Home Medications ?Medication ?Instructions ?Recorded ?Confirmed ?Last Taken ?Type methadone 10 mg/mL oral 95 mg PO BEDTIME 02/12/22 05/30/24 02/10/22 History concentrate (Methadose) bupropion HCl 300 mg 24 hr tablet, 300 mg PO DAILY 05/30/24 05/30/24 05/28/24 History extended release clonidine HCl 0.1 mg tablet 0.1 mg PO BID 05/30/24 05/30/24 05/28/24 History clonidine HCl 0.2 mg tablet 0.2 mg PO BEDTIME 05/30/24 05/30/24 05/28/24 History hydroxyzine pamoate 50 mg capsule 50 mg PO TID PRN Anxiety 05/30/24 05/30/24 Unknown History methadone 10 mg/mL oral concentrate 100 mg PO DAILY 05/30/24 05/30/24 Unknown History nystatin 100,000 unit/mL oral 4 ml PO DAILY PRN FLARES 05/30/24 05/30/24 Unknown History suspension omeprazole 20 mg capsule,delayed 20 mg PO DAILY@0630 05/30/24 05/30/24 05/28/24 History release quetiapine 50 mg tablet 50 mg PO TID PRN Anxiety 05/30/24 05/30/24 Unknown History topiramate 100 mg tablet 100 mg PO BID 05/30/24 05/30/24 05/28/24 History warfarin 2 mg tablet 2 mg PO DAILY@1800 05/30/24 05/30/24 05/28/24 History Physical Exam Vital Signs: Last Vital Signs Temp 97.9 F 05/30/24 09:49 Pulse 80 05/30/24 12:14 Resp 15 05/30/24 12:14 BP 205/98 H 05/30/24 09:49 Pulse Ox 95 05/30/24 09:49 O2 Del Method Room Air 05/30/24 12:14 BMI result Body Mass Index 30.6 Const General: ill appearing Neck Neck: Yes supple Resp Auscultation: clear to auscultation bilaterally Cardio Palpation: no palpable S3 Heart sounds: no rubs GI Palpation (GI): Soft to palpation Auscultation: normal bowel sounds Neuro Motor exam (neuro): no asterixis Results Lab Results 05/30/24 04:47 05/30/24 04:47 Lab results: Chemistry 05/29/24 05/30/24 18:20 04:47 Sodium 137 136 Potassium 5.5 H 4.7 Carbon Dioxide 14 L 11 L BUN 124 H 125 H Creatinine 8.12 H* 8.00 H* Calcium 7.5 L D 7.4 L Hematology 05/29/24 05/30/24 18:20 04:47 WBC 16.1 H 12.7 H Hgb 11.2 L 10.9 L Plt Count 237 224 Urinalysis 05/29/24 23:06 Urine Color Yellow Urine Appearance Cloudy Urine pH 5.5 Ur Specific Pelsor 1.015 Urine Protein 300 (3+) H Urine Glucose (UA) Negative Urine Ketones Negative Urine Blood Moderate (2+) H Urine Nitrite Positive H Ur Leukocyte Esterase Moderate (2+) H Urine RBC 3-5 H Urine WBC >50 H Ur Squamous Epith Cells 0-2 Hyaline Casts 3-5 Urine Studies 05/29/24 23:06 Urine Creatinine 45.02 Assessment and Plan (1) Acute renal failure superimposed on chronic kidney disease: Status: Acute (2) Metabolic acidosis: Status: Acute (3) Lupus (systemic lupus erythematosus): Status: Acute Plan GERRI superimposed on advanced CKD Natural progression Shall arrange for dialysis in view of GERRI and severe acidosis/hyperkalemia Mild anemia/No thrombocytopenia Procedures Date of Service Date of Service: 05/30/24
--- NOTE | 2024-05-30 12:51 | PC.NURSE ---
Pt back from IR procedure.
[2024-05-30] MEDS: cloNIDine HCL 0.1 MG TABLET PO ×2 (13:07→20:09)
[2024-05-30] MEDS: amLODIPine Besylate 10 MG TABLET PO (13:07)
[2024-05-30] MEDS: methADONE HCl 20 MG/2 ML ORAL.CONC 100 MG PO (13:08)
--- NOTE | 2024-05-30 13:39 | PC.NURSE ---
Pt to dialysis at this time.
--- NOTE | 2024-05-30 16:29 | PC.NURSE ---
this nurse took over this group at 3pm, this patient was not in the ed and was up at dialysis at that time. report was placed by this nurse only off the report given to me- this nurse never saw or assessed the patient
--- NOTE | 2024-05-30 16:30 | PC.NURSE ---
pts belongings were left in room 16, this nurse noted no belongings list was completed and patient has 4 large bags full, charge-melly is aware of this and the patients belongings will be brought up to the 4th floor.
[2024-05-30] MEDS: methADONE HCl 20 MG/2 ML ORAL.CONC 95 MG PO (17:26)
[2024-05-30] MEDS: Warfarin Sodium 2 MG TABLET PO (17:26)
[2024-05-30] MEDS: Warfarin Sodium 3 MG TABLET PO (17:26)
[2024-05-30] MEDS: cloNIDine HCL 0.2 MG TABLET PO (20:09)
[2024-05-31] VITALS (7 sets, daily range): BP systolic 124–168; BP diastolic 76–96; PULSE 69–74; RESP 16–18; TEMP 36.1–37.1; O2SAT 96–100
[2024-05-31] MEDS: 0.9 % Sodium Chloride Flush 3 ML SYRINGE IVFLUSH ×2 (00:04→09:11)
[2024-05-31 04:03] LABS: HBS Num1 309.26 mIU/mL (0-7.99); HBc Num1 6.72 S/CO (0.00-0.79); HBsAGNum1 0.41 S/CO (0.00-0.99); Hepatitis B Surface Antigen Negative (Negative); ~Hepatitis B Surface Antibody REACTIVE (Nonreactive)
[2024-05-31 05:05] LABS: HBc Num2 6.54 S/CO; HBc Num3 6.89 S/CO; Hepatitis B Core Antibody Reactive (Nonreactive)
[2024-05-31 06:56] LABS: Hematocrit 31.3 % (37.0-47.0); Hemoglobin 10.4 g/dl (12.0-16.0); Mean Corpuscular HGB Conc 33.2 g/dl (31.0-35.0); Mean Corpuscular Hemoglobin 30.6 pg (27.0-33.0); Mean Corpuscular Volume 92.1 fL (80.0-98.0); Mean Platelet Volume 12.7 fL (9.4-12.3); Platelet Count 200 X10*3/uL (160-400); Red Cell Distribution Width 19.7 % (11.0-16.0); White Blood Count 13.4 X10*3/uL (4.8-10.8)
[2024-05-31 06:59] LABS: NRBC Pct Auto 4.4 /100WBC (0.0-0.2)
[2024-05-31 07:04] LABS: INTERNATIONAL NORM RATIO 1.4 (0.9-1.1); Prothrombin Time 16.8 SEC (10.9-12.4)
[2024-05-31 07:18] LABS: Alanine Aminotransferase 338 U/L (0-31); Alkaline Phosphatase 154 U/L (39-117); Anion Gap 15 (12-20); Aspartate Amino Transferase 240 U/L (5-31); Bilirubin Direct 0.2 mg/dL (0.0-0.5); Bilirubin Total 0.4 mg/dL (0.0-1.0); Blood Urea Nitrogen 100 mg/dL (9-16); Carbon Dioxide 18 mmol/L (22-29); Chloride 108 mmol/L (96-108); Creatinine Clr Calc Pharmacy 13.3; Estimated Glomerular Filt Rate 7; Glucose Random 118 mg/dL (60-115); Potassium 4.5 mmol/L (3.3-5.1); Sodium 136 mmol/L (135-145); Total Protein 5.5 g/dL (6.5-8.0)
[2024-05-31] MEDS: amLODIPine Besylate 10 MG TABLET PO (09:10)
[2024-05-31] MEDS: cloNIDine HCL 0.1 MG TABLET PO ×2 (09:11→20:40)
[2024-05-31] MEDS: methADONE HCl 20 MG/2 ML ORAL.CONC 100 MG PO (09:11)
--- NOTE | 2024-05-31 10:16 | MHC.CM.PN ---
Addendum entered by Meenakshi Segura 05/31/24 10:23: Per ROUNDS, Patient has been started on new HD. Original Note: CM attempted to meet with Patient at bedside but it was very difficult to keep her awake for questions. CM attempted to speak with HCP/Friend/Rhys @ listed # but CM was only able to leave a detailed message. CM did speak with secondary Contact/Friend/ mom /Joann @ [phone] and CM addressed IMM with her (original will be mailed to Joann @ [address] [place] [address] in [facility] and a copy [facility]). Patient lives alone in an apartment , used a walker to assist with mobility, and received her Methadone from [facility]. Patient may benefit from a PT Eval to assist with disposition. CM has initiated and will follow for dc planning. PCP is Dr. Jose Rashid and Joann will transport if dc is to home.
--- NOTE | 2024-05-31 10:35 | P.PNNP_ITS ---
Subjective Subjective Date of Service: 05/31/24 Interval history: Feels better today. Had dialysis yesterday and uneventful. Physical Exam 2 Vital Signs: Vital Signs: Last Vital Signs Temp 98.8 F 05/31/24 08:00 Pulse 71 05/31/24 08:00 Resp 16 05/31/24 08:00 BP 166/96 H 05/31/24 09:11 Pulse Ox 99 05/31/24 08:00 O2 Del Method Room Air 05/31/24 08:00 BMI result Body Mass Index 30.6 Const: General: ill appearing Neck: Neck: Yes supple Resp: Auscultation: clear to auscultation bilaterally Cardio: Palpation: no palpable S3 Heart sounds: no rubs GI: Palpation (GI): Soft to palpation Auscultation: normal bowel sounds Neuro: Motor exam (neuro): no asterixis Objective Data Labs 05/31/24 06:48 05/31/24 06:48 Labs: Laboratory Results - last 24 hr 05/30/24 05/30/24 05/31/24 11:00 17:12 06:48 WBC 13.4 H RBC 3.40 L Hgb 10.4 L Hct 31.3 L MCV 92.1 MCH 30.6 MCHC 33.2 RDW 19.7 H Plt Count 200 MPV 12.7 H Absolute Nucleated RBC 0.590 H Nucleated RBC % (auto) 4.4 H PT 19.2 H 16.8 H INR 1.6 H 1.4 H Sodium 136 Potassium 4.5 Chloride 108 Carbon Dioxide 18 L Anion Gap 15 BUN 100 H Creatinine 6.38 H* Estim Creat Clear Calc 13.3 Estimated GFR 7 Random Glucose 118 H Calcium 7.0 L Total Bilirubin 0.4 Direct Bilirubin 0.2 AST 240 H ALT 338 H Alkaline Phosphatase 154 H Total Protein 5.5 L Albumin 2.0 L Hep Bs Antigen Negative Hep Bs Antibody REACTIVE Hep B Core Total Ab Reactive Hep B Core IgM Ab Cancelled Microbiology Microbiology Results: Microbiology 05/29/24 19:56 Blood - Venous Blood Culture - Preliminary No growth after 24 hours. 05/29/24 19:56 Blood - Venous Blood Culture - Preliminary No growth after 24 hours. Procedures Date of Service Date of Service: 05/31/24 Assessment & Plan Assessment and plan (1) Acute renal failure superimposed on chronic kidney disease: Status: Acute (2) Metabolic acidosis: Status: Acute (3) Lupus (systemic lupus erythematosus): Status: Acute Plan GERRI superimposed on advanced CKD Natural progression HD again today. Mild anemia/No thrombocytopenia Time Spent With Patient Time: Total time managing care of this patient today ____ minutes. Progress Note: Quality Stroke Does the patient have a stroke diagnosis?: No
--- NOTE | 2024-05-31 10:59 | P.PNIM_ITS ---
Subjective Subjective Date of Service: 05/31/24 Interval History: seen and examined this AM feeling slight improvement still with arm/leg pain from swelling requesting her seroquel to be initiated Review of Systems Negative except HPI/interval history. Physical Exam 2 Vital Signs: Vital Signs: Last Vital Signs Temp 98.8 F 05/31/24 08:00 Pulse 71 05/31/24 08:00 Resp 16 05/31/24 08:00 BP 166/96 H 05/31/24 09:11 Pulse Ox 99 05/31/24 08:00 O2 Del Method Room Air 05/31/24 08:00 BMI result Body Mass Index 30.6 Const: Other: General - no acute distress, appears comfortable; generalized anasarca Cardiovascular - regular rate and rhythm, S1-S2 Lungs - normal respiratory effort, clear to auscultation bilaterally, no wheezing Abdomen - soft, nontender, no rebound or guarding Extremities - still with edema diffusely Neuro - awake and alert, no focal deficits Objective Data Active Medications Acetaminophen (Acetaminophen 325 Mg Tablet) 650 mg PO Q6H PRN PRN Reason: Pain, Mild 1-3,fever,headache Last Admin: 05/30/24 03:51 Dose: 650 mg Documented By: DAYANARA Amlodipine Besylate (Amlodipine Besylate 10 Mg Tablet) 10 mg PO DAILY [facility]; Protocol Last Admin: 05/31/24 09:10 Dose: 10 mg Documented By: MONICA Bupropion HCl (Bupropion Hcl Xl 300 Mg Tab.Er.24h) 300 mg PO DAILY [facility] Calcium Carbonate (Calcium Carbonate 750 Mg Tab.Chew) 750 mg PO Q4H PRN PRN Reason: Heartburn Clonidine HCl (Clonidine Hcl 0.1 Mg Tablet) 0.1 mg PO BID [facility]; Protocol Last Admin: 05/31/24 09:11 Dose: 0.1 mg Documented By: MONICA Clonidine HCl (Clonidine Hcl 0.2 Mg Tablet) 0.2 mg PO BEDTIME [facility]; Protocol Last Admin: 05/30/24 20:09 Dose: 0.2 mg Documented By: VENECIA Hydromorphone HCl (Hydromorphone Hcl 0.5 Mg/0.5 Ml Syringe) 0.25 mg IVPUSH Q4H PRN; Protocol PRN Reason: Pain, Severe (Pain Scale 7-10) Last Admin: 05/30/24 20:16 Dose: 0.25 mg Documented By: VENECIA Levofloxacin (Levaquin) 750 mg in 150 mls @ 100 mls/hr IV Q48H [facility] Last Infusion: 05/30/24 03:31 Dose: Infused Documented By: DAYANARA Magnesium Hydroxide (Milk Of Magnesia 30 Ml Oral.Susp) 30 ml PO DAILY PRN PRN Reason: Constipation Melatonin (Melatonin 3 Mg Tablet) 6 mg PO BEDTIME PRN PRN Reason: Insomnia Methadone HCl (Methadone Hcl 20 Mg/2 Ml Oral.Conc) 100 mg PO DAILY [facility] Last Admin: 05/31/24 09:11 Dose: 100 mg Documented By: MONICA Co-signed By: DISHA Methadone HCl (Methadone Hcl 20 Mg/2 Ml Oral.Conc) 95 mg PO DAILY@1700 [facility] Last Admin: 05/30/24 17:26 Dose: 95 mg Documented By: MONICA Co-signed By: MONALISA Omeprazole (Omeprazole 20 Mg Capsule.Dr) 20 mg PO DAILY@0630 [facility] Ondansetron HCl (Ondansetron Hcl 4 Mg/2 Ml Vial) 4 mg IVPUSH Q8H PRN PRN Reason: Nausea and Vomiting Quetiapine Fumarate (Quetiapine Fumarate 50 Mg Tablet) 50 mg PO TID PRN PRN Reason: Anxiety Sodium Chloride (0.9 % Sodium Chloride Flush 3 Ml Syringe) 3 ml IVFLUSH QSHIFT [facility] Last Admin: 05/31/24 09:11 Dose: 3 ml Documented By: MONICA Topiramate (Topiramate 100 Mg Tablet) 100 mg PO BID [facility] Warfarin Sodium (Warfarin Sodium 2 Mg Tablet) 2 mg PO DAILY@1800 [facility] Last Admin: 05/30/24 17:26 Dose: 2 mg Documented By: MONICA Labs 05/31/24 06:48 05/31/24 06:48 Labs: Laboratory Results - last 24 hr 05/30/24 05/30/24 05/31/24 11:00 17:12 06:48 MCV 92.1 MCH 30.6 MCHC 33.2 RDW 19.7 H Plt Count 200 MPV 12.7 H Absolute Nucleated RBC 0.590 H Nucleated RBC % (auto) 4.4 H PT 19.2 H 16.8 H INR 1.6 H 1.4 H Anion Gap 15 Estim Creat Clear Calc 13.3 Estimated GFR 7 Random Glucose 118 H Calcium 7.0 L Total Bilirubin 0.4 Direct Bilirubin 0.2 AST 240 H ALT 338 H Alkaline Phosphatase 154 H Total Protein 5.5 L Albumin 2.0 L Hep Bs Antigen Negative Hep Bs Antibody REACTIVE Hep B Core Total Ab Reactive Hep B Core IgM Ab Cancelled Microbiology Microbiology Results: Microbiology 05/29/24 Unknown Urine Culture - Final Urine clean catch - Clean Catch Midstream 05/29/24 19:56 Blood Culture - Preliminary Blood - Venous No growth after 24 hours. 05/29/24 19:56 Blood Culture - Preliminary Blood - Venous No growth after 24 hours. Assessment and Plan (1) Acute renal failure superimposed on chronic kidney disease: Status: Acute Plan 43 yo F with multiple medical problems who presents with edema and shortness of breath. Found to have GERRI + anasarca 1. GERRI on CKD 1a. Anasarca - probably from renal failure 1b. metabolic acidosis 1c. Possible UTI 1b. Lupus started on dialysis, plan for second session today nephrology appreciated -- feel this is natural progression of her lupus 2. Transaminitis question related to hepatic congestion no evidence of billiary obstruction on CT stable, continue to trend 3. Anti-phospholipid syndrome continue coumadin increase to 5mg for a few days 4. History of lupus see #1 5. Chronic opiate dependence methadone 6. HTN continue home meds hopefully should improve as her fluid status improves 7. Mood restat home meds; hold gabapetin for the time being Full Code DVT pptx - coumadin Quality Stroke Does the patient have a stroke diagnosis?: No VTE Prior VTE?: Yes VTE Risk Level:: Medical - moderate - high VTE Device Contraindication: Treatment Not Indicated VTE Drug Contraindication: N/A - Med Ordered
--- NOTE | 2024-05-31 11:23 | HO.ADDICTCON ---
History of Present Illness Date of Service: 05/31/2024 Chief Complaint: Anasarca Reason for Consult: GRANT, acute on chronic renal failure ?methadone changes with dialysis Sources of Information: patient interviewed and chart reviewed HPI Narrative: Patient is a 43 year old female with OUD and multiple medical co-morbidities, medically admitted with acute on chronic renal failure. Consult requested due to ongoing substance use and question if methadone dose should be adjusted due to current renal function Patient seen in room 452. She is awake, alert, pleasant and engaged in interview She shares that she has been doing really good , and has her own apt now and had been working. She states that she has cut down significantly with cocaine use and is using at most 2x/month. Her current methadone dose is 100mg in AM and 95mg in the evening She feels good on this dose and states the split dose has helped her with pain, cravings and ongoing use. No sedation noted or reported by patient. Labs and EKG reviewed Patient started dialysis yesterday Past Psychiatric History: -Hx of multiple [facility] admissions, CSS, TSS, and ATS treatment. Pt was last psychiatrically admitted on M5 in June 2021. -No current OP psych treatment -Hx of suicide attempts via intentionally ODing on heroin, meds. Review of Systems Constitutional: Reports as per HPI and Reports no additional constitutional complaints Diagnostics Vital Signs (24Hr): Vital Signs - 24 hr 05/30/24 11:35 05/30/24 12:14 05/30/24 12:40 Temperature Pulse Rate 80 72 Respiratory Rate 15 15 Blood Pressure 210/118 H 217/123 H Pulse Oximetry 98 Oxygen Delivery Method Room Air Room Air Room Air 05/30/24 13:07 05/30/24 13:07 05/30/24 17:19 Temperature 97.8 F Pulse Rate 75 Respiratory Rate 18 Blood Pressure 217/123 H 217/123 H Pulse Oximetry 97 Oxygen Delivery Method Room Air 05/30/24 19:15 05/31/24 03:14 05/31/24 08:00 Temperature 97.8 F 97 F 98.8 F Pulse Rate 86 69 71 Respiratory Rate 17 17 16 Blood Pressure 158/96 H 168/96 H 166/96 H Pulse Oximetry 96 100 99 Oxygen Delivery Method Room Air Room Air Room Air 05/31/24 09:10 05/31/24 09:11 Temperature Pulse Rate Respiratory Rate Blood Pressure 166/96 H 166/96 H Pulse Oximetry Oxygen Delivery Method BMI result Body Mass Index 30.6 Labs 05/31/24 06:48 05/31/24 06:48 Labs: Laboratory Results - last 48 hr 05/29/24 05/29/24 05/29/24 18:20 19:56 23:06 WBC 16.1 H RBC 3.69 L Hgb 11.2 L Hct 34.7 L MCV 94.0 MCH 30.4 MCHC 32.3 RDW 19.6 H Plt Count 237 MPV 12.1 Immature Gran % (Auto) 1.0 H Neut % (Auto) 84.5 H Lymph % (Auto) 5.1 L [place] % (Auto) 9.2 Eos % (Auto) 0.1 Baso % (Auto) 0.1 Lymph # (Auto) 0.8 L [place] # (Auto) 1.5 H Eos # (Auto) 0.0 Baso # (Auto) 0.0 Abs Immat Gran (auto) 0.16 H Absolute Neuts (auto) 13.6 H Absolute Nucleated RBC 0.820 H Nucleated RBC % (auto) 5.1 H Smear Path Review SEE NOTE PT 18.0 H INR 1.5 H Sodium 137 Potassium 5.5 H Chloride 109 H Carbon Dioxide 14 L Anion Gap 20 BUN 124 H Creatinine 8.12 H* Estim Creat Clear Calc 10.4 Estimated GFR 5 Random Glucose 68 Lactic Acid 1.2 Calcium 7.5 L D Magnesium 2.1 Total Bilirubin 0.5 Direct Bilirubin AST 355 H ALT 377 H Alkaline Phosphatase 189 H Total Creatine Kinase 587 H C-Reactive Protein 2.43 H B-Natriuretic Peptide 13897 H Total Protein 6.4 L Albumin 2.5 L Lipase 46 Urine Color Yellow Urine Appearance Cloudy Urine pH 5.5 Ur Specific [place] 1.015 Urine Protein 300 (3+) H Urine Glucose (UA) Negative Urine Ketones Negative Urine Blood Moderate (2+) H Urine Nitrite Positive H Ur Leukocyte Esterase Moderate (2+) H Urine RBC 3-5 H Urine WBC >50 H Ur Squamous Epith Cells 0-2 Urine Bacteria 4+ Hyaline Casts 3-5 U Random Total Protein 462 H Urine Creatinine 45.02 Urine Opiates Screen Not Detected Ur Buprenorphine Scrn Not Detected Ur Oxycodone Screen Not Detected Urine Methadone Screen Positive H Urine Fentanyl Screen POSITIVE H Ur Barbiturates Screen Not Detected Ur Phencyclidine Scrn Not Detected Ur Amphetamines Screen Not Detected U Benzodiazepines Scrn Not Detected Urine Cocaine Screen POSITIVE H U Marijuana (THC) Screen Not Detected Hep Bs Antigen Hep Bs Antibody Hep B Core Total Ab Hep B Core IgM Ab 05/30/24 05/30/24 05/30/24 04:47 11:00 17:12 WBC 12.7 H RBC 3.53 L Hgb 10.9 L Hct 32.7 L MCV 92.6 MCH 30.9 MCHC 33.3 RDW 19.5 H Plt Count 224 MPV 12.6 H Immature Gran % (Auto) 0.9 H Neut % (Auto) 83.7 H Lymph % (Auto) 6.3 L [place] % (Auto) 8.3 Eos % (Auto) 0.6 Baso % (Auto) 0.2 Lymph # (Auto) 0.8 L [place] # (Auto) 1.1 Eos # (Auto) 0.1 Baso # (Auto) 0.0 Abs Immat Gran (auto) 0.11 H Absolute Neuts (auto) 10.7 H Absolute Nucleated RBC 0.740 H Nucleated RBC % (auto) 5.8 H Smear Path Review PT 19.2 H INR 1.6 H Sodium 136 Potassium 4.7 Chloride 110 H Carbon Dioxide 11 L Anion Gap 20 BUN 125 H Creatinine 8.00 H* Estim Creat Clear Calc 10.5 Estimated GFR 5 Random Glucose 99 Lactic Acid Calcium 7.4 L Magnesium Total Bilirubin 0.5 Direct Bilirubin 0.3 AST 268 H ALT 328 H Alkaline Phosphatase 164 H Total Creatine Kinase C-Reactive Protein B-Natriuretic Peptide Total Protein 5.7 L Albumin 2.1 L Lipase Urine Color Urine Appearance Urine pH Ur Specific [place] Urine Protein Urine Glucose (UA) Urine Ketones Urine Blood Urine Nitrite Ur Leukocyte Esterase Urine RBC Urine WBC Ur Squamous Epith Cells Urine Bacteria Hyaline Casts U Random Total Protein Urine Creatinine Urine Opiates Screen Ur Buprenorphine Scrn Ur Oxycodone Screen Urine Methadone Screen Urine Fentanyl Screen Ur Barbiturates Screen Ur Phencyclidine Scrn Ur Amphetamines Screen U Benzodiazepines Scrn Urine Cocaine Screen U Marijuana (THC) Screen Hep Bs Antigen Negative Hep Bs Antibody REACTIVE Hep B Core Total Ab Reactive Hep B Core IgM Ab Cancelled 05/31/24 06:48 WBC 13.4 H RBC 3.40 L Hgb 10.4 L Hct 31.3 L MCV 92.1 MCH 30.6 MCHC 33.2 RDW 19.7 H Plt Count 200 MPV 12.7 H Immature Gran % (Auto) Neut % (Auto) Lymph % (Auto) [place] % (Auto) Eos % (Auto) Baso % (Auto) Lymph # (Auto) [place] # (Auto) Eos # (Auto) Baso # (Auto) Abs Immat Gran (auto) Absolute Neuts (auto) Absolute Nucleated RBC 0.590 H Nucleated RBC % (auto) 4.4 H Smear Path Review PT 16.8 H INR 1.4 H Sodium 136 Potassium 4.5 Chloride 108 Carbon Dioxide 18 L Anion Gap 15 BUN 100 H Creatinine 6.38 H* Estim Creat Clear Calc 13.3 Estimated GFR 7 Random Glucose 118 H Lactic Acid Calcium 7.0 L Magnesium Total Bilirubin 0.4 Direct Bilirubin 0.2 AST 240 H ALT 338 H Alkaline Phosphatase 154 H Total Creatine Kinase C-Reactive Protein B-Natriuretic Peptide Total Protein 5.5 L Albumin 2.0 L Lipase Urine Color Urine Appearance Urine pH Ur Specific [place] Urine Protein Urine Glucose (UA) Urine Ketones Urine Blood Urine Nitrite Ur Leukocyte Esterase Urine RBC Urine WBC Ur Squamous Epith Cells Urine Bacteria Hyaline Casts U Random Total Protein Urine Creatinine Urine Opiates Screen Ur Buprenorphine Scrn Ur Oxycodone Screen Urine Methadone Screen Urine Fentanyl Screen Ur Barbiturates Screen Ur Phencyclidine Scrn Ur Amphetamines Screen U Benzodiazepines Scrn Urine Cocaine Screen U Marijuana (THC) Screen Hep Bs Antigen Hep Bs Antibody Hep B Core Total Ab Hep B Core IgM Ab Mental Status Exam Mental Status Exam Patient Appearance: Appropriate Level of Consciousness: Awake, Appropriate and Alert Patient Behavior: Appropriate and Talkative Mood Description: Calm Affect Description: Calm Speech Pattern: Clear Thought Process: Intact Thought Content: positive for Intact Medications Medications Current Medications Acetaminophen (Acetaminophen 325 Mg Tablet) 650 mg PO Q6H PRN PRN Reason: Pain, Mild 1-3,fever,headache Last Admin: 05/30/24 03:51 Dose: 650 mg Amlodipine Besylate (Amlodipine Besylate 10 Mg Tablet) 10 mg PO DAILY [facility]; Protocol Last Admin: 05/31/24 09:10 Dose: 10 mg Bupropion HCl (Bupropion Hcl Xl 300 Mg Tab.Er.24h) 300 mg PO DAILY [facility] Calcium Carbonate (Calcium Carbonate 750 Mg Tab.Chew) 750 mg PO Q4H PRN PRN Reason: Heartburn Clonidine HCl (Clonidine Hcl 0.1 Mg Tablet) 0.1 mg PO BID [facility]; Protocol Last Admin: 05/31/24 09:11 Dose: 0.1 mg Clonidine HCl (Clonidine Hcl 0.2 Mg Tablet) 0.2 mg PO BEDTIME [facility]; Protocol Last Admin: 05/30/24 20:09 Dose: 0.2 mg Hydromorphone HCl (Hydromorphone Hcl 0.5 Mg/0.5 Ml Syringe) 0.25 mg IVPUSH Q4H PRN; Protocol PRN Reason: Pain, Severe (Pain Scale 7-10) Last Admin: 05/30/24 20:16 Dose: 0.25 mg Levofloxacin (Levaquin) 750 mg in 150 mls @ 100 mls/hr IV Q48H [facility] Last Infusion: 05/30/24 03:31 Dose: Infused Magnesium Hydroxide (Milk Of Magnesia 30 Ml Oral.Susp) 30 ml PO DAILY PRN PRN Reason: Constipation Melatonin (Melatonin 3 Mg Tablet) 6 mg PO BEDTIME PRN PRN Reason: Insomnia Methadone HCl (Methadone Hcl 20 Mg/2 Ml Oral.Conc) 100 mg PO DAILY [facility] Last Admin: 05/31/24 09:11 Dose: 100 mg Methadone HCl (Methadone Hcl 20 Mg/2 Ml Oral.Conc) 95 mg PO DAILY@1700 [facility] Last Admin: 05/30/24 17:26 Dose: 95 mg Omeprazole (Omeprazole 20 Mg Capsule.Dr) 20 mg PO DAILY@0630 [facility] Ondansetron HCl (Ondansetron Hcl 4 Mg/2 Ml Vial) 4 mg IVPUSH Q8H PRN PRN Reason: Nausea and Vomiting Quetiapine Fumarate (Quetiapine Fumarate 50 Mg Tablet) 50 mg PO TID PRN PRN Reason: Anxiety Sodium Chloride (0.9 % Sodium Chloride Flush 3 Ml Syringe) 3 ml IVFLUSH QSHIFT [facility] Last Admin: 05/31/24 09:11 Dose: 3 ml Topiramate (Topiramate 100 Mg Tablet) 100 mg PO BID [facility] Warfarin Sodium (Warfarin Sodium 5 Mg Tablet) 5 mg PO DAILY@1800 [facility] Allergies Allergies Allergy/AdvReac Type Severity Reaction Status Date / Time bee pollen [BEE STINGS] Allergy Severe Anaphylaxis Verified 05/29/24 16:36 codeine [CODEINE] Allergy Severe ANAPHYLAXIS Verified 05/29/24 16:36 Sulfa (Sulfonamide Allergy Severe ANAPHYLAXIS Verified 05/29/24 16:36 Antibiotics) [SULFA (SULFONAMIDE ANTIBIOTICS)] nut - unspecified [nut] Allergy Intermediate Rash Verified 05/29/24 16:36 shellfish derived Allergy Intermediate Rash Verified 05/29/24 16:36 fluoxetine [From Prozac] AdvReac Severe Migraine Verified 05/29/24 16:36 Fish Containing Products AdvReac Stomach Verified 05/29/24 16:36 Upset Assessment & Plan Assessment & Plan (1) Opioid use disorder: Status: Acute Code(s): F11.90 - Opioid use, unspecified, uncomplicated Assessment and Plan: no need to adjust methadone dose at this time risk reduction discussion related to ongoing use already connected to OTP in the community Total time managing care of this patient today __35__ minutes. PMFSH Past Medical History Medical History Left tibial fracture Acute renal failure superimposed on chronic kidney disease Cocaine abuse CKD (chronic kidney disease) Antiphospholipid antibody syndrome MDD (major depressive disorder), recurrent episode, moderate Opioid use disorder, severe, dependence Cocaine use disorder Cellulitis Substance abuse Seizures Candidemia Opioid use disorder, severe, dependence PTSD (post-traumatic stress disorder) Bipolar disorder Opiate abuse, continuous Pulmonary emboli DVT (deep venous thrombosis) [place] filter in place Pneumonia Lupus Surgical History Surgical History History of appendectomy Hx of splenectomy Social History Social History Household Members: None Housing: Apartment Housing Other:: lIVING IN A Program House Do you presently have visiting nurse or other home services: No Alcohol intake: never Patient Tobacco Use Status: Current everyday Tobacco user Tobacco use type: Cigarette Cigarettes Per Day: 2 Years Smoked: 24 e-Cigarette/Vaping Use: Never Used Second Hand Smoke Exposure: No Substance Use Type: Crack/Cocaine Advance Directives Date on File: 02/14/21 service: No Current occupational status: employed and student Sexual orientation: Did not discuss Cognitive needs: No Hearing needs: No Vision needs: No
[2024-05-31] MEDS: Omeprazole 20 MG CAPSULE.DR PO (11:45)
[2024-05-31] MEDS: HYDROmorphone HCl 0.5 MG/0.5 ML SYRINGE 0.25 MG IVPUSH ×2 (11:47→19:17)
[2024-05-31] MEDS: Warfarin Sodium 5 MG TABLET PO (19:17)
[2024-05-31] MEDS: methADONE HCl 20 MG/2 ML ORAL.CONC 95 MG PO (19:17)
[2024-05-31] MEDS: cloNIDine HCL 0.2 MG TABLET PO (20:40)
[2024-05-31] MEDS: Topiramate 100 MG TABLET PO (20:40)
[2024-05-31] MEDS: QUEtiapine Fumarate 50 MG TABLET PO (20:44)
[2024-05-31] MEDS: levoFLOXacin/D5W 750 MG/150 ML PIGGYBACK 100 MG IV (23:58)
[2024-06-01] MEDS: 0.9 % Sodium Chloride Flush 3 ML SYRINGE IVFLUSH ×4 (00:01→20:35)
[2024-06-01] MEDS: Acetaminophen 325 MG TABLET 650 MG PO (01:24)
[2024-06-01 03:27] VITALS: BP 160/84; PULSE 80; RESP 18; TEMP 37.2; O2SAT 96
[2024-06-01] MEDS: Omeprazole 20 MG CAPSULE.DR PO (06:02)
[2024-06-01 07:12] VITALS: BP 164/92; PULSE 79; RESP 18; TEMP 37.4; O2SAT 95
[2024-06-01 08:09] LABS: Hematocrit 28.7 % (37.0-47.0); Hemoglobin 9.2 g/dl (12.0-16.0); Mean Corpuscular HGB Conc 32.1 g/dl (31.0-35.0); Mean Corpuscular Hemoglobin 30.5 pg (27.0-33.0); Mean Platelet Volume 11.8 fL (9.4-12.3); NRBC Pct Auto 5.5 /100WBC (0.0-0.2); Platelet Count 144 X10*3/uL (160-400); Red Blood Count 3.02 X10*6/uL (4.20-5.50); Red Cell Distribution Width 19.9 % (11.0-16.0); White Blood Count 7.5 X10*3/uL (4.8-10.8)
[2024-06-01 08:14] LABS: INTERNATIONAL NORM RATIO 2.1 (0.9-1.1); Prothrombin Time 24.6 SEC (10.9-12.4)
[2024-06-01 08:32] LABS: Alanine Aminotransferase 338 U/L (0-31); Albumin Level 1.9 g/dL (3.5-5.0); Alkaline Phosphatase 147 U/L (39-117); Anion Gap 15 (12-20); Aspartate Amino Transferase 226 U/L (5-31); Bilirubin Total 0.3 mg/dL (0.0-1.0); Blood Urea Nitrogen 74 mg/dL (9-16); Calcium 6.9 mg/dL (8.4-10.2); Carbon Dioxide 18 mmol/L (22-29); Chloride 108 mmol/L (96-108); Creatinine Clr Calc Pharmacy 17.4; Estimated Glomerular Filt Rate 10; Glucose Random 107 mg/dL (60-115); Potassium 4.2 mmol/L (3.3-5.1); Sodium 137 mmol/L (135-145); Total Protein 5.4 g/dL (6.5-8.0)
[2024-06-01] MEDS: amLODIPine Besylate 10 MG TABLET PO (08:41)
[2024-06-01] MEDS: buPROPion HCl XL 300 MG TAB.ER.24H PO (08:42)
[2024-06-01] MEDS: cloNIDine HCL 0.1 MG TABLET PO ×2 (08:42→20:35)
[2024-06-01] MEDS: Topiramate 100 MG TABLET PO ×2 (08:42→20:33)
[2024-06-01] MEDS: methADONE HCl 20 MG/2 ML ORAL.CONC 100 MG PO (08:42)
[2024-06-01] MEDS: QUEtiapine Fumarate 50 MG TABLET PO (08:43)
[2024-06-01 12:17] VITALS: BP 167/89; PULSE 77; RESP 18; TEMP 37.3; O2SAT 96
[2024-06-01] MEDS: HYDROmorphone HCl 0.5 MG/0.5 ML SYRINGE 0.25 MG IVPUSH (13:20)
--- NOTE | 2024-06-01 13:32 | HO.PM.IMPN ---
Subjective Subjective Date of Service: 06/01/24 Interval History: seen and examined this AM feeling slight improvement still with arm/leg pain from swelling requesting her seroquel to be initiated Review of Systems Negative except HPI/interval history. Physical Exam Vital Signs: Vital Signs: Last Vital Signs Temp 99.1 F 06/01/24 12:17 Pulse 77 06/01/24 12:17 Resp 18 06/01/24 12:17 BP 167/89 H 06/01/24 12:17 Pulse Ox 96 06/01/24 12:17 O2 Del Method Room Air 06/01/24 12:17 BMI result Body Mass Index 30.6 Appearing in no acute distress lung sounds are clear to auscultation heart regular rate rhythm, clear S1, S2 positive bowel sounds, abdomen is soft, nontender neuro patient is alert x3, no focal deficits Diffuse anasarca Objective Data Active Medications Acetaminophen (Acetaminophen 325 Mg Tablet) 650 mg PO Q6H PRN PRN Reason: Pain, Mild 1-3,fever,headache Last Admin: 06/01/24 01:24 Dose: 650 mg Documented By: VENECIA Amlodipine Besylate (Amlodipine Besylate 10 Mg Tablet) 10 mg PO DAILY REPLACED BY [facility]; Protocol Last Admin: 06/01/24 08:41 Dose: 10 mg Documented By: KATELYNN Bupropion HCl (Bupropion Hcl Xl 300 Mg Tab.Er.24h) 300 mg PO DAILY REPLACED BY [facility] Last Admin: 06/01/24 08:42 Dose: 300 mg Documented By: KATELYNN Calcium Carbonate (Calcium Carbonate 750 Mg Tab.Chew) 750 mg PO Q4H PRN PRN Reason: Heartburn Clonidine HCl (Clonidine Hcl 0.1 Mg Tablet) 0.1 mg PO BID REPLACED BY [facility]; Protocol Last Admin: 06/01/24 08:42 Dose: 0.1 mg Documented By: KATELYNN Clonidine HCl (Clonidine Hcl 0.2 Mg Tablet) 0.2 mg PO BEDTIME REPLACED BY [facility]; Protocol Last Admin: 05/31/24 20:40 Dose: 0.2 mg Documented By: VENECIA Hydromorphone HCl (Hydromorphone Hcl 0.5 Mg/0.5 Ml Syringe) 0.25 mg IVPUSH Q4H PRN; Protocol PRN Reason: Pain, Severe (Pain Scale 7-10) Last Admin: 06/01/24 13:20 Dose: 0.25 mg Documented By: KATELYNN Levofloxacin (Levaquin) 500 mg in 100 mls @ 100 mls/hr IV Q48H REPLACED BY [facility] Magnesium Hydroxide (Milk Of Magnesia 30 Ml Oral.Susp) 30 ml PO DAILY PRN PRN Reason: Constipation Melatonin (Melatonin 3 Mg Tablet) 6 mg PO BEDTIME PRN PRN Reason: Insomnia Methadone HCl (Methadone Hcl 20 Mg/2 Ml Oral.Conc) 100 mg PO DAILY REPLACED BY [facility] Last Admin: 06/01/24 08:42 Dose: 100 mg Documented By: KATELYNN Co-signed By: DISHA Methadone HCl (Methadone Hcl 20 Mg/2 Ml Oral.Conc) 95 mg PO DAILY@1700 REPLACED BY [facility] Last Admin: 05/31/24 19:17 Dose: 95 mg Documented By: MONICA Co-signed By: VENECIA Omeprazole (Omeprazole 20 Mg Capsule.Dr) 20 mg PO DAILY@0630 REPLACED BY [facility] Last Admin: 06/01/24 06:02 Dose: 20 mg Documented By: VENECIA Ondansetron HCl (Ondansetron Hcl 4 Mg/2 Ml Vial) 4 mg IVPUSH Q8H PRN PRN Reason: Nausea and Vomiting Quetiapine Fumarate (Quetiapine Fumarate 50 Mg Tablet) 50 mg PO TID PRN PRN Reason: Anxiety Last Admin: 06/01/24 08:43 Dose: 50 mg Documented By: KATELYNN Sodium Chloride (0.9 % Sodium Chloride Flush 3 Ml Syringe) 3 ml IVFLUSH QSHIFT REPLACED BY [facility] Last Admin: 06/01/24 08:45 Dose: 3 ml Documented By: KATELYNN Topiramate (Topiramate 100 Mg Tablet) 100 mg PO BID REPLACED BY [facility] Last Admin: 06/01/24 08:42 Dose: 100 mg Documented By: KATELYNN Warfarin Sodium (Warfarin Sodium 5 Mg Tablet) 5 mg PO DAILY@1800 REPLACED BY [facility] Last Admin: 05/31/24 19:17 Dose: 5 mg Documented By: MONICA Labs 06/01/24 08:01 06/01/24 08:01 Labs: Laboratory Results - last 24 hr 06/01/24 08:01 MCV 95.0 MCH 30.5 MCHC 32.1 RDW 19.9 H Plt Count 144 L D MPV 11.8 Absolute Nucleated RBC 0.410 H Nucleated RBC % (auto) 5.5 H PT 24.6 H D INR 2.1 H Anion Gap 15 Estim Creat Clear Calc 17.4 Estimated GFR 10 Random Glucose 107 Calcium 6.9 L Total Bilirubin 0.3 AST 226 H ALT 338 H Alkaline Phosphatase 147 H Total Protein 5.4 L Albumin 1.9 L Microbiology Microbiology Results: Microbiology 05/29/24 19:56 Blood Culture - Final Blood - Venous Bacillus species 05/29/24 19:56 Blood Culture - Preliminary Blood - Venous No growth after 48 hours. 05/29/24 Unknown Urine Culture - Final Urine clean catch - Clean Catch Midstream Assessment and Plan (1) Acute renal failure superimposed on chronic kidney disease: Status: Acute Plan 43 yo F with multiple medical problems who presents with edema and shortness of breath. Found to have GERRI + anasarca GERRI on CKD Noted Anasarca - probably from renal failure started on dialysis nephrology appreciated>natural progression of her lupus Transaminitis question related to hepatic congestion no evidence of billiary obstruction on CT Slowly trending down Anti-phospholipid syndrome continue coumadin increase to 5mg for a few days Normocytic anemia Likely secondary to renal disease History of lupus see #1 Chronic opiate dependence methadone HTN continue home meds hopefully should improve as her fluid status improves Mood restat home meds; hold gabapetin for the time being Full Code DVT pptx - coumadin Quality Stroke Does the patient have a stroke diagnosis?: No VTE Prior VTE?: Yes VTE Risk Level:: Medical - moderate - high VTE Device Contraindication: Treatment Not Indicated VTE Drug Contraindication: N/A - Med Ordered
[2024-06-01 15:38] VITALS: BP 146/88; PULSE 77; RESP 20; TEMP 36.8; O2SAT 95
[2024-06-01] MEDS: methADONE HCl 20 MG/2 ML ORAL.CONC 95 MG PO (17:30)
[2024-06-01] MEDS: Warfarin Sodium 5 MG TABLET PO (17:30)
[2024-06-01 19:16] VITALS: BP 128/76; PULSE 76; RESP 16; TEMP 36.9; O2SAT 95
[2024-06-01] MEDS: cloNIDine HCL 0.2 MG TABLET PO (20:34)
[2024-06-01 23:57] VITALS: BP 159/85; PULSE 73; RESP 16; TEMP 36.4; O2SAT 97
[2024-06-02 03:48] VITALS: BP 170/89; PULSE 80; RESP 16; TEMP 37.2; O2SAT 96
[2024-06-02] MEDS: Omeprazole 20 MG CAPSULE.DR PO (06:42)
[2024-06-02 07:05] VITALS: BP 173/86; PULSE 77; RESP 20; TEMP 36.8; O2SAT 97
[2024-06-02 07:23] LABS: INTERNATIONAL NORM RATIO 2.8 (0.9-1.1); Prothrombin Time 33.1 SEC (10.9-12.4)
[2024-06-02 07:49] VITALS: BP 173/86
[2024-06-02] MEDS: amLODIPine Besylate 10 MG TABLET PO (07:49)
[2024-06-02] MEDS: methADONE HCl 20 MG/2 ML ORAL.CONC 100 MG PO (07:49)
[2024-06-02] MEDS: Topiramate 100 MG TABLET PO ×2 (07:49→19:59)
[2024-06-02] MEDS: buPROPion HCl XL 300 MG TAB.ER.24H PO (07:49)
[2024-06-02] MEDS: cloNIDine HCL 0.1 MG TABLET PO ×2 (07:49→19:59)
[2024-06-02] MEDS: 0.9 % Sodium Chloride Flush 3 ML SYRINGE IVFLUSH ×2 (07:50→17:08)
--- NOTE | 2024-06-02 09:49 | P.PNNP_ITS ---
Subjective Subjective Date of Service: 06/02/24 Interval history: seen and examined this AM feeling slight improvement still with arm/leg pain from swelling requesting her seroquel to be initiated Physical Exam 2 Vital Signs: Vital Signs: Last Vital Signs Temp 98.3 F 06/02/24 07:05 Pulse 77 06/02/24 07:05 Resp 20 06/02/24 07:05 BP 173/86 H 06/02/24 07:49 Pulse Ox 97 06/02/24 07:05 O2 Del Method Room Air 06/02/24 07:05 BMI result Body Mass Index 30.6 Const: General: ill appearing Neck: Neck: Yes supple Resp: Auscultation: clear to auscultation bilaterally Cardio: Palpation: no palpable S3 Heart sounds: no rubs GI: Palpation (GI): Soft to palpation Auscultation: normal bowel sounds Neuro: Motor exam (neuro): no asterixis Objective Data Labs 06/01/24 08:01 06/01/24 08:01 Labs: Laboratory Results - last 24 hr 06/02/24 06:43 PT 33.1 H D INR 2.8 H Microbiology Microbiology Results: Microbiology 05/29/24 19:56 Blood - Venous Blood Culture - Final Bacillus species 05/29/24 19:56 Blood - Venous Blood Culture - Preliminary No growth after 48 hours. 05/29/24 Unknown Urine clean catch - Clean Catch Midstream Urine Culture - Final Procedures Date of Service Date of Service: 06/02/24 Assessment & Plan Assessment and plan (1) Acute renal failure superimposed on chronic kidney disease: Status: Acute (2) Metabolic acidosis: Status: Acute (3) Lupus (systemic lupus erythematosus): Status: Acute Plan GERRI superimposed on advanced CKD Natural progression and approaching ESRd HD again today. Mild anemia/No thrombocytopenia Will pulse with MEthylprednisone 1 gm x 3 days and biopsy on thursday Time Spent With Patient Time: Total time managing care of this patient today ____ minutes. Progress Note: Quality Stroke Does the patient have a stroke diagnosis?: No
[2024-06-02 10:07] LABS: Hematocrit 30.7 % (37.0-47.0); Hemoglobin 9.9 g/dl (12.0-16.0); Mean Corpuscular HGB Conc 32.2 g/dl (31.0-35.0); Mean Corpuscular Hemoglobin 30.8 pg (27.0-33.0); Mean Corpuscular Volume 95.6 fL (80.0-98.0); Mean Platelet Volume 11.7 fL (9.4-12.3); NRBC Pct Auto 4.4 /100WBC (0.0-0.2); Platelet Count 150 X10*3/uL (160-400); Red Blood Count 3.21 X10*6/uL (4.20-5.50); Red Cell Distribution Width 20.1 % (11.0-16.0); White Blood Count 7.5 X10*3/uL (4.8-10.8)
[2024-06-02 10:20] LABS: Alanine Aminotransferase 296 U/L (0-31); Albumin Level 2.3 g/dL (3.5-5.0); Alkaline Phosphatase 139 U/L (39-117); Anion Gap 14 (12-20); Aspartate Amino Transferase 143 U/L (5-31); Bilirubin Total 0.3 mg/dL (0.0-1.0); Blood Urea Nitrogen 78 mg/dL (9-16); Calcium 7.7 mg/dL (8.4-10.2); Carbon Dioxide 19 mmol/L (22-29); Chloride 107 mmol/L (96-108); Creatinine Clr Calc Pharmacy 14.8; Estimated Glomerular Filt Rate 8; Glucose Random 133 mg/dL (60-115); Potassium 4.3 mmol/L (3.3-5.1); Sodium 136 mmol/L (135-145); Total Protein 6.1 g/dL (6.5-8.0)
--- NOTE | 2024-06-02 10:24 | HO.PM.IMPN ---
Subjective Subjective Date of Service: 06/02/24 Interval History: seen and examined feels better today compared to yesterday less pain from swelling denies chest pain, sob improving day by day Review of Systems Negative except HPI/interval history. Physical Exam Vital Signs: Vital Signs: Last Vital Signs Temp 98.3 F 06/02/24 07:05 Pulse 77 06/02/24 07:05 Resp 20 06/02/24 07:05 BP 173/86 H 06/02/24 07:49 Pulse Ox 97 06/02/24 07:05 O2 Del Method Room Air 06/02/24 07:05 BMI result Body Mass Index 30.6 Const: Other: General - no acute distress, appears comfortable; generalized anasarca maybe sl. improved Cardiovascular - regular rate and rhythm, S1-S2 Lungs - normal respiratory effort, clear to auscultation bilaterally, no wheezing Abdomen - soft, nontender, no rebound or guarding Extremities - still with edema diffusely Neuro - awake and alert, no focal deficits Objective Data Active Medications Acetaminophen (Acetaminophen 325 Mg Tablet) 650 mg PO Q6H PRN PRN Reason: Pain, Mild 1-3,fever,headache Last Admin: 06/01/24 01:24 Dose: 650 mg Documented By: VENECIA Amlodipine Besylate (Amlodipine Besylate 10 Mg Tablet) 10 mg PO DAILY [facility]; Protocol Last Admin: 06/02/24 07:49 Dose: 10 mg Documented By: SASHA Bupropion HCl (Bupropion Hcl Xl 300 Mg Tab.Er.24h) 300 mg PO DAILY [facility] Last Admin: 06/02/24 07:49 Dose: 300 mg Documented By: SASHA Calcium Carbonate (Calcium Carbonate 750 Mg Tab.Chew) 750 mg PO Q4H PRN PRN Reason: Heartburn Clonidine HCl (Clonidine Hcl 0.1 Mg Tablet) 0.1 mg PO BID [facility]; Protocol Last Admin: 06/02/24 07:49 Dose: 0.1 mg Documented By: SASHA Clonidine HCl (Clonidine Hcl 0.2 Mg Tablet) 0.2 mg PO BEDTIME [facility]; Protocol Last Admin: 06/01/24 20:34 Dose: 0.2 mg Documented By: POPEYE Hydromorphone HCl (Hydromorphone Hcl 0.5 Mg/0.5 Ml Syringe) 0.25 mg IVPUSH Q4H PRN; Protocol PRN Reason: Pain, Severe (Pain Scale 7-10) Last Admin: 06/01/24 13:20 Dose: 0.25 mg Documented By: KATELYNN Methylprednisolone Sodium Succinate 1,000 mg/ Sodium Chloride 66 mls @ 66 mls/hr IV DAILY [facility] Stop: 06/05/24 09:49 Magnesium Hydroxide (Milk Of Magnesia 30 Ml Oral.Susp) 30 ml PO DAILY PRN PRN Reason: Constipation Melatonin (Melatonin 3 Mg Tablet) 6 mg PO BEDTIME PRN PRN Reason: Insomnia Methadone HCl (Methadone Hcl 20 Mg/2 Ml Oral.Conc) 100 mg PO DAILY [facility] Last Admin: 06/02/24 07:49 Dose: 100 mg Documented By: SASHA Co-signed By: BRONick Methadone HCl (Methadone Hcl 20 Mg/2 Ml Oral.Conc) 95 mg PO DAILY@1700 [facility] Last Admin: 06/01/24 17:30 Dose: 95 mg Documented By: KATELYNN Co-signed By: DISHA Omeprazole (Omeprazole 20 Mg Capsule.) 20 mg PO DAILY@0630 [facility] Last Admin: 06/02/24 06:42 Dose: 20 mg Documented By: POPEYE Ondansetron HCl (Ondansetron Hcl 4 Mg/2 Ml Vial) 4 mg IVPUSH Q8H PRN PRN Reason: Nausea and Vomiting Quetiapine Fumarate (Quetiapine Fumarate 50 Mg Tablet) 50 mg PO TID PRN PRN Reason: Anxiety Last Admin: 06/01/24 08:43 Dose: 50 mg Documented By: KATELYNN Sodium Chloride (0.9 % Sodium Chloride Flush 3 Ml Syringe) 3 ml IVFLUSH QSHIFT [facility] Last Admin: 06/02/24 07:50 Dose: 3 ml Documented By: SASHA Topiramate (Topiramate 100 Mg Tablet) 100 mg PO BID [facility] Last Admin: 06/02/24 07:49 Dose: 100 mg Documented By: SASHA Warfarin Sodium (Warfarin Sodium 5 Mg Tablet) 5 mg PO DAILY@1800 [facility] Last Admin: 06/01/24 17:30 Dose: 5 mg Documented By: KATELYNN Labs 06/02/24 09:22 06/02/24 09:22 Labs: Laboratory Results - last 24 hr 06/02/24 06/02/24 06:43 09:22 MCV 95.6 MCH 30.8 MCHC 32.2 RDW 20.1 H Plt Count 150 L MPV 11.7 Absolute Nucleated RBC 0.330 H Nucleated RBC % (auto) 4.4 H PT 33.1 H D INR 2.8 H Anion Gap 14 Estim Creat Clear Calc 14.8 Estimated GFR 8 Random Glucose 133 H Calcium 7.7 L D Total Bilirubin 0.3 AST 143 H ALT 296 H Alkaline Phosphatase 139 H Total Protein 6.1 L Albumin 2.3 L Microbiology Microbiology Results: Microbiology 05/29/24 19:56 Blood Culture - Final Blood - Venous Bacillus species Assessment and Plan (1) Acute renal failure superimposed on chronic kidney disease: Status: Acute Plan 43 yo F with multiple medical problems who presents with edema and shortness of breath. Found to have GERRI + anasarca GERRI on CKD likely due to underlying lupus nephrology on board - follow their recs --> plan for solu-medrol 1g x 3 days; plan for biopsy Moday if not improved continue dialysis per nephrology Transaminitis continue to monitor down-trending Anti-phospholipid syndrome INR therapeutic at 2.8 will hold coumadin today and recheck INR tomorrow -- plan to transition to heparin drip tomorrow if INR below 2 in preparation for biopsy on Thursday Normocytic anemia Likely secondary to renal disease History of lupus see #1 Chronic opiate dependence methadone HTN continue norvasc should improve with fluid removal via dialysis Mood restat home meds; hold gabapetin for the time being Full Code DVT pptx - coumadin Quality Stroke Does the patient have a stroke diagnosis?: No VTE Prior VTE?: Yes VTE Risk Level:: Medical - moderate - high VTE Device Contraindication: Treatment Not Indicated VTE Drug Contraindication: N/A - Med Ordered
[2024-06-02] MEDS: methylPREDNISolone Sod Succ 1,000 MG in 0.9 % Sodium Chloride 50 ML 66 MG IV (10:40)
[2024-06-02 11:15] VITALS: BP 159/83; PULSE 76; RESP 18; TEMP 37.1; O2SAT 96
[2024-06-02] MEDS: HYDROmorphone HCl 0.5 MG/0.5 ML SYRINGE 0.25 MG IVPUSH ×2 (12:40→17:09)
[2024-06-02 15:10] VITALS: BP 163/94; PULSE 87; RESP 18; TEMP 36.7; O2SAT 97
[2024-06-02] MEDS: methADONE HCl 20 MG/2 ML ORAL.CONC 95 MG PO (17:07)
[2024-06-02] MEDS: QUEtiapine Fumarate 50 MG TABLET PO (17:09)
[2024-06-02 19:47] VITALS: BP 154/72; PULSE 71; RESP 16; TEMP 36.4; O2SAT 98
[2024-06-02] MEDS: Acetaminophen 325 MG TABLET 650 MG PO (19:59)
[2024-06-02] MEDS: cloNIDine HCL 0.2 MG TABLET PO (19:59)
[2024-06-03] VITALS (9 sets, daily range): BP systolic 146–192; BP diastolic 80–99; PULSE 68–93; RESP 16–20; TEMP 36.2–36.8; O2SAT 97–100
[2024-06-03] MEDS: HYDROmorphone HCl 0.5 MG/0.5 ML SYRINGE 0.25 MG IVPUSH ×2 (03:27→14:27)
[2024-06-03] MEDS: Omeprazole 20 MG CAPSULE.DR PO (05:38)
[2024-06-03 06:56] LABS: INTERNATIONAL NORM RATIO 4.1 (0.9-1.1); Prothrombin Time 47.8 SEC (10.9-12.4)
[2024-06-03] MEDS: cloNIDine HCL 0.1 MG TABLET PO ×2 (08:05→22:28)
[2024-06-03] MEDS: Topiramate 100 MG TABLET PO ×2 (08:05→22:27)
[2024-06-03] MEDS: buPROPion HCl XL 300 MG TAB.ER.24H PO (08:05)
[2024-06-03] MEDS: methADONE HCl 20 MG/2 ML ORAL.CONC 100 MG PO (08:06)
[2024-06-03] MEDS: amLODIPine Besylate 10 MG TABLET PO (08:06)
[2024-06-03] MEDS: 0.9 % Sodium Chloride Flush 3 ML SYRINGE IVFLUSH ×3 (08:07→22:28)
[2024-06-03] MEDS: methylPREDNISolone Sod Succ 1,000 MG in 0.9 % Sodium Chloride 50 ML 66 MG IV (08:11)
--- NOTE | 2024-06-03 09:10 | MHC.CM.PN ---
Per MD, Patient is not yet medically cleared for dc (IV Dilaudid, IV Methylprednisolone, SOB); Patient may benefit from a PT Eval to assist with disposition and CM will follow.
[2024-06-03 09:17] LABS: Alanine Aminotransferase 205 U/L (0-31); Albumin Level 2.2 g/dL (3.5-5.0); Alkaline Phosphatase 150 U/L (39-117); Anion Gap 13 (12-20); Aspartate Amino Transferase 77 U/L (5-31); Bilirubin Total 0.2 mg/dL (0.0-1.0); Blood Urea Nitrogen 62 mg/dL (9-16); Calcium 7.6 mg/dL (8.4-10.2); Carbon Dioxide 19 mmol/L (22-29); Chloride 106 mmol/L (96-108); Creatinine Clr Calc Pharmacy 18.3; Estimated Glomerular Filt Rate 10; Glucose Random 166 mg/dL (60-115); Potassium 4.2 mmol/L (3.3-5.1); Sodium 134 mmol/L (135-145); Total Protein 5.8 g/dL (6.5-8.0)
--- NOTE | 2024-06-03 09:29 | HO.PM.IMPN ---
Subjective Subjective Date of Service: 06/03/24 Interval History: seen and examined this AM reports feeling better daily requesting a regular diet Review of Systems Negative except HPI/interval history. Constitutional Constitutional: Reports as per HPI, Reports no additional constitutional complaints, Denies body ache(s), Reports chills, Reports fatigue, Denies fever(s) and Reports headache(s) Eyes Eyes: Denies change in vision ENT Ears, Nose, Mouth, and Throat: Reports headache(s), Denies nasal congestion, Denies nasal discharge and Denies sore throat Cardiovascular Cardiovascular: Denies chest pain, Denies rapid heart rate, Reports leg edema and Reports dyspnea Respiratory Respiratory: Denies chest congestion, Denies cough, Reports dyspnea and Denies wheezing Gastrointestinal Gastrointestinal: Reports constipation, Denies diarrhea, Reports nausea, Reports vomiting and Denies hematemesis Musculoskeletal Musculoskeletal: Denies numbness and Denies tingling Integumentary/Breasts Skin/Breast: Reports as per HPI and Reports lesions Neurologic Neurologic: Denies confusion, Reports headache(s), Denies memory loss, Denies numbness and Denies tingling Psychiatric Psychiatric: Denies confusion and Denies memory loss Endocrine Endocrine: Reports fatigue Hematologic/Lymphatic Hematologic/Lymphatic: Denies easy bleeding and Denies easy bruising Allergic/Immunologic Allergic/Immunologic: Denies wheezing Physical Exam Vital Signs: Vital Signs: Last Vital Signs Temp 98.2 F 06/03/24 07:54 Pulse 77 06/03/24 07:54 Resp 19 06/03/24 07:54 BP 192/99 H 06/03/24 08:06 Pulse Ox 97 06/03/24 07:54 O2 Del Method Room Air 06/03/24 07:54 BMI result Body Mass Index 30.6 Const: Other: General - no acute distress, appears comfortable; generalized anasarca, swelling of face improved Cardiovascular - regular rate and rhythm, S1-S2 Lungs - normal respiratory effort, clear to auscultation bilaterally, no wheezing Abdomen - soft, nontender, no rebound or guarding Extremities - still with edema diffusely Neuro - awake and alert, no focal deficits General: No confusion Orientation/consciousness: No confusion Neuro: General: No confusion Objective Data Active Medications Acetaminophen (Acetaminophen 325 Mg Tablet) 650 mg PO Q6H PRN PRN Reason: Pain, Mild 1-3,fever,headache Last Admin: 06/02/24 19:59 Dose: 650 mg Documented By: POPEYE Amlodipine Besylate (Amlodipine Besylate 10 Mg Tablet) 10 mg PO DAILY [facility]; Protocol Last Admin: 06/03/24 08:06 Dose: 10 mg Documented By: SASHA Bupropion HCl (Bupropion Hcl Xl 300 Mg Tab.Er.24h) 300 mg PO DAILY [facility] Last Admin: 06/03/24 08:05 Dose: 300 mg Documented By: SASHA Calcium Carbonate (Calcium Carbonate 750 Mg Tab.Chew) 750 mg PO Q4H PRN PRN Reason: Heartburn Clonidine HCl (Clonidine Hcl 0.1 Mg Tablet) 0.1 mg PO BID [facility]; Protocol Last Admin: 06/03/24 08:05 Dose: 0.1 mg Documented By: SASHA Clonidine HCl (Clonidine Hcl 0.2 Mg Tablet) 0.2 mg PO BEDTIME [facility]; Protocol Last Admin: 06/02/24 19:59 Dose: 0.2 mg Documented By: POPEYE Hydromorphone HCl (Hydromorphone Hcl 0.5 Mg/0.5 Ml Syringe) 0.25 mg IVPUSH Q4H PRN; Protocol PRN Reason: Pain, Severe (Pain Scale 7-10) Last Admin: 06/03/24 03:27 Dose: 0.25 mg Documented By: POPEYE Methylprednisolone Sodium Succinate 1,000 mg/ Sodium Chloride 66 mls @ 66 mls/hr IV DAILY [facility] Stop: 06/05/24 09:49 Last Infusion: 06/03/24 09:20 Dose: Infused Documented By: SASHA Magnesium Hydroxide (Milk Of Magnesia 30 Ml Oral.Susp) 30 ml PO DAILY PRN PRN Reason: Constipation Melatonin (Melatonin 3 Mg Tablet) 6 mg PO BEDTIME PRN PRN Reason: Insomnia Methadone HCl (Methadone Hcl 20 Mg/2 Ml Oral.Conc) 100 mg PO DAILY [facility] Last Admin: 06/03/24 08:06 Dose: 100 mg Documented By: SASHA Co-signed By: ELPIDIO Methadone HCl (Methadone Hcl 20 Mg/2 Ml Oral.Conc) 95 mg PO DAILY@1700 [facility] Last Admin: 06/02/24 17:07 Dose: 95 mg Documented By: SASHA Co-signed By: BROB Nicotine Polacrilex (Nicotine Polacrilex Lozenge 2 Mg Lozenge) 2 mg BUCCAL Q2H PRN PRN Reason: Nicotine Cravings Omeprazole (Omeprazole 20 Mg Capsule.) 20 mg PO DAILY@0630 [facility] Last Admin: 06/03/24 05:38 Dose: 20 mg Documented By: POPEYE Ondansetron HCl (Ondansetron Hcl 4 Mg/2 Ml Vial) 4 mg IVPUSH Q8H PRN PRN Reason: Nausea and Vomiting Quetiapine Fumarate (Quetiapine Fumarate 50 Mg Tablet) 50 mg PO TID PRN PRN Reason: Anxiety Last Admin: 06/02/24 17:09 Dose: 50 mg Documented By: TANIKAING Sodium Chloride (0.9 % Sodium Chloride Flush 3 Ml Syringe) 3 ml IVFLUSH QSHIFT [facility] Last Admin: 06/03/24 08:07 Dose: 3 ml Documented By: SASHA Topiramate (Topiramate 100 Mg Tablet) 100 mg PO BID [facility] Last Admin: 06/03/24 08:05 Dose: 100 mg Documented By: SASHA Warfarin Sodium (Warfarin Sodium 5 Mg Tablet) 5 mg PO DAILY@1800 [facility] Last Admin: 06/01/24 17:30 Dose: 5 mg Documented By: CHAVAN Labs 06/02/24 09:22 06/03/24 08:05 Labs: Laboratory Results - last 24 hr 06/02/24 06/03/24 06/03/24 09:22 06:38 08:05 MCV 95.6 MCH 30.8 MCHC 32.2 RDW 20.1 H Plt Count 150 L MPV 11.7 Absolute Nucleated RBC 0.330 H Nucleated RBC % (auto) 4.4 H PT 47.8 H D INR 4.1 H Anion Gap 14 13 Estim Creat Clear Calc 14.8 18.3 Estimated GFR 8 10 Random Glucose 133 H 166 H Calcium 7.7 L D 7.6 L Total Bilirubin 0.3 0.2 AST 143 H 77 H ALT 296 H 205 H Alkaline Phosphatase 139 H 150 H Total Protein 6.1 L 5.8 L Albumin 2.3 L 2.2 L Assessment and Plan (1) Acute renal failure superimposed on chronic kidney disease: Status: Acute Plan 43 yo F with multiple medical problems who presents with edema and shortness of breath. Found to have GERRI + anasarca GERRI on CKD likely due to underlying lupus nephrology on board - follow their recs --> plan for solu-medrol 1g daily; plan for biopsy Moday if not improved d/w nephro today -- will check renal doppler (concern over venous/arterial thrombus) dialysis per nephrology Transaminitis continue to monitor down-trending Anti-phospholipid syndrome INR 4.1 continue holding coumadin -- likely will need 2-3mg daily Normocytic anemia Likely secondary to renal disease History of lupus see #1 Chronic opiate dependence methadone HTN continue norvasc should improve with fluid removal via dialysis Mood continue home meds Full Code DVT pptx - coumadin Quality Stroke Does the patient have a stroke diagnosis?: No VTE Prior VTE?: Yes VTE Risk Level:: Medical - moderate - high VTE Device Contraindication: Treatment Not Indicated VTE Drug Contraindication: N/A - Med Ordered
[2024-06-03 13:23] LABS: Complement C3 75 mg/dL (83-193)
--- NOTE | 2024-06-03 15:03 | P.PNNP_ITS ---
Subjective Subjective Date of Service: 06/03/24 Interval history: seen and examined this AM; reports feeling better daily; Due UF today; Edema improving Physical Exam 2 Vital Signs: Vital Signs: Last Vital Signs Temp 98.0 F 06/03/24 12:00 Pulse 68 06/03/24 12:00 Resp 19 06/03/24 12:00 BP 146/80 H 06/03/24 12:00 Pulse Ox 97 06/03/24 07:54 O2 Del Method Room Air 06/03/24 07:54 BMI result Body Mass Index 30.6 Const: General: comfortable and no acute distress O rientation/consciousness: patient oriented x3 HEENT: Head: Yes normocephalic Mouth: Normal oral and palatal mucosa present Eyes: EOM: EOMs intact bilaterally Neck: Neck: Yes supple Resp: Auscultation: clear to auscultation bilaterally Cardio: Jugular venous distension: no JVD Rate: regular rate GI: Palpation (GI): Soft to palpation Auscultation: normal bowel sounds : General: Yes no CVA tenderness Back/Spine/Pelvis: Back: no CVA tenderness Skin: General skin exam: no rashes or lesions noted Neuro: General: patient oriented x3 and moves all extremities Objective Data Labs 06/02/24 09:22 06/03/24 08:05 Labs: Laboratory Results - last 24 hr 05/29/24 06/02/24 06/03/24 23:34 06:43 06:38 PT 47.8 H D INR 4.1 H Sodium Potassium Chloride Carbon Dioxide Anion Gap BUN Creatinine Estim Creat Clear Calc Estimated GFR Random Glucose Calcium Total Bilirubin AST ALT Alkaline Phosphatase Total Protein Albumin Ur 24 Hour Volume Cancelled Ur Creatinine mg/dL Cancelled Ur Creatinine 24 Hour Cancelled Ur Total Protein 24 Hr Cancelled Complement C3 75 L Complement C4 5 L 06/03/24 08:05 PT INR Sodium 134 L Potassium 4.2 Chloride 106 Carbon Dioxide 19 L Anion Gap 13 BUN 62 H Creatinine 4.62 H* Estim Creat Clear Calc 18.3 Estimated GFR 10 Random Glucose 166 H Calcium 7.6 L Total Bilirubin 0.2 AST 77 H ALT 205 H Alkaline Phosphatase 150 H Total Protein 5.8 L Albumin 2.2 L Ur 24 Hour Volume Ur Creatinine mg/dL Ur Creatinine 24 Hour Ur Total Protein 24 Hr Complement C3 Complement C4 Microbiology Microbiology Results: Microbiology 05/29/24 19:56 Blood - Venous Blood Culture - Final Bacillus species 05/29/24 19:56 Blood - Venous Blood Culture - Preliminary No growth after 48 hours. 05/29/24 Unknown Urine clean catch - Clean Catch Midstream Urine Culture - Final Procedures Date of Service Date of Service: 06/03/24 Assessment & Plan Assessment and plan (1) Acute renal failure superimposed on chronic kidney disease: Status: Acute Plan GERRI superimposed on advanced CKD; ? ESRD UF again today. HD tomorrow Doppler of renal arteries and veins; On pulse Methylprednisone 1 gm x 3 days Biopsy after weekend; If biopsy delayed, shall start pred 60 mg daily after pulse M Pred Progress Note: Quality Stroke Does the patient have a stroke diagnosis?: No
--- NOTE | 2024-06-03 15:48 | P.CNID_ITS ---
History of Present Illness Data of Consult Service Date: 06/03/24 Requesting physician: John Chang Primary Care Provider: Jose Rashid [employer]ER T[employer]ER- HPI Reason for consult: bacillus bacteremia,1/2 on 05/29 She presents with weakness and anasarca. She has culture and 1/2 bacillus on 05/29. She has lupus and antiphospholipid syndrome and is on HD. She has had left tibial ORIF with Klebsiella,enterobacter and serratia. I had seen here before in 2020 and had candidemia and MRSA blood and has OUD. She denies injection drug use now. Review of Systems 2 Review of Systems: Yes all other systems are reviewed and are negative Musculoskeletal: Musculoskeletal: Reports arthralgias PMFSH Past Medical History Medical History (Updated 06/03/24 @ 15:55 by Karen Cobb MD) Leukocytosis Bacteremia Left tibial fracture Acute renal failure superimposed on chronic kidney disease Cocaine abuse CKD (chronic kidney disease) Antiphospholipid antibody syndrome MDD (major depressive disorder), recurrent episode, moderate Opioid use disorder, severe, dependence Cocaine use disorder Cellulitis Substance abuse Seizures Candidemia Opioid use disorder, severe, dependence PTSD (post-traumatic stress disorder) Bipolar disorder Opiate abuse, continuous Pulmonary emboli DVT (deep venous thrombosis) Sander filter in place Pneumonia Lupus Family History Family history: reviewed and not pertinent Surgical History Surgical History History of appendectomy Hx of splenectomy Social History Social History Household Members: None Housing: Apartment Housing Other:: lIVING IN A Program House Do you presently have visiting nurse or other home services: No Alcohol intake: never Patient Tobacco Use Status: Current everyday Tobacco user Tobacco use type: Cigarette Cigarettes Per Day: 2 Years Smoked: 24 e-Cigarette/Vaping Use: Never Used Second Hand Smoke Exposure: No Substance Use Type: Crack/Cocaine Advance Directives Date on File: 02/14/21 service: No Current occupational status: employed and student Sexual orientation: Did not discuss Cognitive needs: No Hearing needs: No Vision needs: No Meds Allergies Allergy/AdvReac Type Severity Reaction Status Date / Time bee pollen [BEE STINGS] Allergy Severe Anaphylaxis Verified 05/29/24 16:36 codeine [CODEINE] Allergy Severe ANAPHYLAXIS Verified 05/29/24 16:36 Sulfa (Sulfonamide Allergy Severe ANAPHYLAXIS Verified 05/29/24 16:36 Antibiotics) [SULFA (SULFONAMIDE ANTIBIOTICS)] nut - unspecified [nut] Allergy Intermediate Rash Verified 05/29/24 16:36 shellfish derived Allergy Intermediate Rash Verified 05/29/24 16:36 fluoxetine [From Prozac] AdvReac Severe Migraine Verified 05/29/24 16:36 Fish Containing Products AdvReac Stomach Verified 05/29/24 16:36 Upset Active Medications: Current Medications Acetaminophen (Acetaminophen 325 Mg Tablet) 650 mg PO Q6H PRN PRN Reason: Pain, Mild 1-3,fever,headache Last Admin: 06/02/24 19:59 Dose: 650 mg Amlodipine Besylate (Amlodipine Besylate 10 Mg Tablet) 10 mg PO DAILY [facility]; Protocol Last Admin: 06/03/24 08:06 Dose: 10 mg Bupropion HCl (Bupropion Hcl Xl 300 Mg Tab.Er.24h) 300 mg PO DAILY [facility] [place] Last Admin: 06/03/24 08:05 Dose: 300 mg Calcium Carbonate (Calcium Carbonate 750 Mg Tab.Chew) 750 mg PO Q4H PRN PRN Reason: Heartburn Clonidine HCl (Clonidine Hcl 0.1 Mg Tablet) 0.1 mg PO BID [facility]; Protocol Last Admin: 06/03/24 08:05 Dose: 0.1 mg Clonidine HCl (Clonidine Hcl 0.2 Mg Tablet) 0.2 mg PO BEDTIME [facility]; Protocol Last Admin: 06/02/24 19:59 Dose: 0.2 mg Heparin Sodium (Porcine) (Heparin Sodium,Porcine 5,000 Unit/Ml Vial) 5,000 unit INTRACATH ONCE ONE Stop: 06/04/24 06:01 Heparin Sodium (Porcine) (Heparin Sodium,Porcine 5,000 Unit/Ml Vial) 5,000 unit INTRACATH ONCE ONE Stop: 06/06/24 06:01 Hydromorphone HCl (Hydromorphone Hcl 0.5 Mg/0.5 Ml Syringe) 0.25 mg IVPUSH Q4H PRN; Protocol PRN Reason: Pain, Severe (Pain Scale 7-10) Last Admin: 06/03/24 14:27 Dose: 0.25 mg Methylprednisolone Sodium Succinate 1,000 mg/ Sodium Chloride 66 mls @ 66 mls/hr IV DAILY [facility] Stop: 06/05/24 09:49 Last Infusion: 06/03/24 09:20 Dose: Infused Magnesium Hydroxide (Milk Of Magnesia 30 Ml Oral.Susp) 30 ml PO DAILY PRN PRN Reason: Constipation Melatonin (Melatonin 3 Mg Tablet) 6 mg PO BEDTIME PRN PRN Reason: Insomnia Methadone HCl (Methadone Hcl 20 Mg/2 Ml Oral.Conc) 100 mg PO DAILY [facility] Last Admin: 06/03/24 08:06 Dose: 100 mg Methadone HCl (Methadone Hcl 20 Mg/2 Ml Oral.Conc) 95 mg PO DAILY@1700 [facility] [place] Last Admin: 06/02/24 17:07 Dose: 95 mg Nicotine Polacrilex (Nicotine Polacrilex Lozenge 2 Mg Lozenge) 2 mg BUCCAL Q2H PRN PRN Reason: Nicotine Cravings Omeprazole (Omeprazole 20 Mg Capsule.Dr) 20 mg PO DAILY@0630 [facility] [place] Last Admin: 06/03/24 05:38 Dose: 20 mg Ondansetron HCl (Ondansetron Hcl 4 Mg/2 Ml Vial) 4 mg IVPUSH Q8H PRN PRN Reason: Nausea and Vomiting Quetiapine Fumarate (Quetiapine Fumarate 50 Mg Tablet) 50 mg PO TID PRN PRN Reason: Anxiety Last Admin: 06/02/24 17:09 Dose: 50 mg Sodium Chloride (0.9 % Sodium Chloride Flush 3 Ml Syringe) 3 ml IVFLUSH QSHIFT [facility] [place] Last Admin: 06/03/24 08:07 Dose: 3 ml Topiramate (Topiramate 100 Mg Tablet) 100 mg PO BID [facility] [place] Last Admin: 06/03/24 08:05 Dose: 100 mg Warfarin Sodium (Warfarin Sodium 5 Mg Tablet) 5 mg PO DAILY@1800 [facility] [place] Last Admin: 06/01/24 17:30 Dose: 5 mg Home Medications ?Medication ?Instructions ?Recorded ?Confirmed ?Last Taken ?Type methadone 10 mg/mL oral 95 mg PO BEDTIME 02/12/22 05/30/24 02/10/22 History concentrate (Methadose) bupropion HCl 300 mg 24 hr tablet, 300 mg PO DAILY 05/30/24 05/30/24 05/28/24 History extended release clonidine HCl 0.1 mg tablet 0.1 mg PO BID 05/30/24 05/30/24 05/28/24 History clonidine HCl 0.2 mg tablet 0.2 mg PO BEDTIME 05/30/24 05/30/24 05/28/24 History hydroxyzine pamoate 50 mg capsule 50 mg PO TID PRN Anxiety 05/30/24 05/30/24 Unknown History methadone 10 mg/mL oral concentrate 100 mg PO DAILY 05/30/24 05/30/24 Unknown History nystatin 100,000 unit/mL oral 4 ml PO DAILY PRN FLARES 05/30/24 05/30/24 Unknown History suspension omeprazole 20 mg capsule,delayed 20 mg PO DAILY@0630 05/30/24 05/30/24 05/28/24 History release quetiapine 50 mg tablet 50 mg PO TID PRN Anxiety 05/30/24 05/30/24 Unknown History topiramate 100 mg tablet 100 mg PO BID 05/30/24 05/30/24 05/28/24 History warfarin 2 mg tablet 2 mg PO DAILY@1800 05/30/24 05/30/24 05/28/24 History Physical Exam 2 Vital Signs: Vital Signs: Last Vital Signs Temp 98.3 F 06/03/24 15:22 Pulse 93 06/03/24 15:22 Resp 19 06/03/24 15:22 BP 172/93 H 06/03/24 15:22 Pulse Ox 98 06/03/24 15:22 O2 Del Method Room Air 06/03/24 15:22 BMI result Body Mass Index 30.6 Const: General: cooperative HEENT: Head: Yes normal to inspection Face and sinus: Yes normal facial exam Mouth: Normal oral and palatal mucosa present Teeth and gingiva: d entition normal Eyes: General: appearance normal, both eyes and all related structures P upils: Equal, round and reactive pupils present Resp: Effort & Inspection: normal respiratory effort Cardio: Rate: regular rate Rhythm: regular rhythm GI: Palpation (GI): Soft to palpation and nontender : General: Yes no CVA tenderness Back/Spine/Pelvis: Back: no CVA tenderness Skin: General skin exam: no rashes or lesions noted Neuro: General: moves all extremities Cranial nerves: Yes Equal, round and reactive pupils present Extrem: Other: plus 2 edema with abrasions right lower extremity Psych: Appearance: grossly normal Results Labs 06/02/24 09:22 06/03/24 08:05 Labs: BMP 06/03/24 08:05 Sodium 134 L Potassium 4.2 Chloride 106 Carbon Dioxide 19 L BUN 62 H Creatinine 4.62 H* Calcium 7.6 L Liver Function 06/03/24 Range/Units 08:05 Total Bilirubin 0.2 (0.0-1.0) mg/dL AST 77 H (5-31) U/L ALT 205 H (0-31) U/L Alkaline Phosphatase 150 H (39-117) U/L Albumin 2.2 L (3.5-5.0) g/dL Microbiology Microbiology Results: Microbiology 05/29/24 19:56 Blood - Venous Blood Culture - Final Bacillus species 05/29/24 19:56 Blood - Venous Blood Culture - Preliminary No growth after 48 hours. 05/29/24 Unknown Urine clean catch - Clean Catch Midstream Urine Culture - Final Assessment and Plan (1) Anasarca: Status: Acute (2) Acute renal failure superimposed on chronic kidney disease: Status: Acute (3) Bacteremia: Status: Acute (4) Leukocytosis: Status: Acute Plan She has leukocytosis likely due to medical condtions including lupus and acute on chronic renal failure. Bacillus is not a concern, contaminant especially one culture. Right leg doesnt look acutely infected. Would stop antibiotics. Check HIV test.
--- NOTE | 2024-06-03 15:58 | PM.EVENT ---
Event Note Date of Service: 06/03/24 Time Spent With Patient Time: Total time managing care of this patient today ____ minutes.
[2024-06-03] MEDS: methADONE HCl 20 MG/2 ML ORAL.CONC 95 MG PO (16:38)
[2024-06-03] MEDS: cloNIDine HCL 0.2 MG TABLET PO (22:27)
[2024-06-03] MEDS: QUEtiapine Fumarate 50 MG TABLET PO (22:28)
[2024-06-04] VITALS: BP 157/84; PULSE 79; RESP 20; TEMP 36.4; O2SAT 99
[2024-06-04 04:00] VITALS: BP 164/91; PULSE 83; RESP 20; TEMP 36.2; O2SAT 94
[2024-06-04 04:01] LABS: HIV AB/AG Nonreactive (Nonreactive); HIV Num 1 0.04 S/CO (0.00-0.99)
[2024-06-04] MEDS: Omeprazole 20 MG CAPSULE.DR PO (06:35)
[2024-06-04 07:04] LABS: Prothrombin Time 22.8 SEC (10.9-12.4)
[2024-06-04 07:37] VITALS: BP 170/92; PULSE 73; RESP 16; TEMP 36.4; O2SAT 100
[2024-06-04] MEDS: methADONE HCl 20 MG/2 ML ORAL.CONC 100 MG PO (08:30)
[2024-06-04] MEDS: 0.9 % Sodium Chloride Flush 3 ML SYRINGE IVFLUSH ×2 (08:31→14:52)
--- NOTE | 2024-06-04 09:25 | P.PNIM_ITS ---
Subjective Subjective Date of Service: 06/04/24 Interval History: seen and examined this AM reports feeling better daily requesting a regular diet Review of Systems Negative except HPI/interval history. Constitutional Constitutional: Reports as per HPI, Reports no additional constitutional complaints, Denies body ache(s), Reports chills, Reports fatigue, Denies fever(s) and Reports headache(s) Eyes Eyes: Denies change in vision ENT Ears, Nose, Mouth, and Throat: Reports headache(s), Denies nasal congestion, Denies nasal discharge and Denies sore throat Cardiovascular Cardiovascular: Denies chest pain, Denies rapid heart rate, Reports leg edema and Reports dyspnea Respiratory Respiratory: Denies chest congestion, Denies cough, Reports dyspnea and Denies wheezing Gastrointestinal Gastrointestinal: Reports constipation, Denies diarrhea, Reports nausea, Reports vomiting and Denies hematemesis Musculoskeletal Musculoskeletal: Denies numbness and Denies tingling Integumentary/Breasts Skin/Breast: Reports as per HPI and Reports lesions Neurologic Neurologic: Denies confusion, Reports headache(s), Denies memory loss, Denies numbness and Denies tingling Psychiatric Psychiatric: Denies confusion and Denies memory loss Endocrine Endocrine: Reports fatigue Hematologic/Lymphatic Hematologic/Lymphatic: Denies easy bleeding and Denies easy bruising Allergic/Immunologic Allergic/Immunologic: Denies wheezing Physical Exam 2 Vital Signs: Vital Signs: Last Vital Signs Temp 97.5 F 06/04/24 07:37 Pulse 73 06/04/24 07:37 Resp 16 06/04/24 07:37 BP 170/92 H 06/04/24 07:37 Pulse Ox 100 06/04/24 07:37 O2 Del Method Room Air 06/04/24 07:37 BMI result Body Mass Index 30.6 Const: General: No confusion Orientation/consciousness: No confusion Neuro: General: No confusion Objective Data Active Medications Acetaminophen (Acetaminophen 325 Mg Tablet) 650 mg PO Q6H PRN PRN Reason: Pain, Mild 1-3,fever,headache Last Admin: 06/02/24 19:59 Dose: 650 mg Documented By: POPYEE Amlodipine Besylate (Amlodipine Besylate 10 Mg Tablet) 10 mg PO DAILY [facility]; Protocol Last Admin: 06/03/24 08:06 Dose: 10 mg Documented By: SASHA Bupropion HCl (Bupropion Hcl Xl 300 Mg Tab.Er.24h) 300 mg PO DAILY [facility] Last Admin: 06/03/24 08:05 Dose: 300 mg Documented By: SASHA Calcium Carbonate (Calcium Carbonate 750 Mg Tab.Chew) 750 mg PO Q4H PRN PRN Reason: Heartburn Clonidine HCl (Clonidine Hcl 0.1 Mg Tablet) 0.1 mg PO BID [facility]; Protocol Last Admin: 06/03/24 22:28 Dose: 0.1 mg Documented By: CALVIN Clonidine HCl (Clonidine Hcl 0.2 Mg Tablet) 0.2 mg PO BEDTIME [facility]; Protocol Last Admin: 06/03/24 22:27 Dose: 0.2 mg Documented By: CALVIN Heparin Sodium (Porcine) (Heparin Sodium,Porcine 5,000 Unit/Ml Vial) 5,000 unit INTRACATH ONCE ONE Stop: 06/06/24 06:01 Hydromorphone HCl (Hydromorphone Hcl 0.5 Mg/0.5 Ml Syringe) 0.25 mg IVPUSH Q4H PRN; Protocol PRN Reason: Pain, Severe (Pain Scale 7-10) Last Admin: 06/03/24 14:27 Dose: 0.25 mg Documented By: SASHA Methylprednisolone Sodium Succinate 1,000 mg/ Sodium Chloride 66 mls @ 66 mls/hr IV DAILY [facility] Stop: 06/05/24 09:49 Last Infusion: 06/03/24 09:20 Dose: Infused Documented By: SASHA Magnesium Hydroxide (Milk Of Magnesia 30 Ml Oral.Susp) 30 ml PO DAILY PRN PRN Reason: Constipation Melatonin (Melatonin 3 Mg Tablet) 6 mg PO BEDTIME PRN PRN Reason: Insomnia Methadone HCl (Methadone Hcl 20 Mg/2 Ml Oral.Conc) 100 mg PO DAILY [facility] Last Admin: 06/04/24 08:30 Dose: 100 mg Documented By: KAVITA Co-signed By: JANIE Methadone HCl (Methadone Hcl 20 Mg/2 Ml Oral.Conc) 95 mg PO DAILY@1700 [facility] Last Admin: 06/03/24 16:38 Dose: 95 mg Documented By: SASHA Co-signed By: ELPIDIO Nicotine Polacrilex (Nicotine Polacrilex Lozenge 2 Mg Lozenge) 2 mg BUCCAL Q2H PRN PRN Reason: Nicotine Cravings Omeprazole (Omeprazole 20 Mg Capsule.Dr) 20 mg PO DAILY@0630 [facility] Last Admin: 06/04/24 06:35 Dose: 20 mg Documented By: CALVIN Ondansetron HCl (Ondansetron Hcl 4 Mg/2 Ml Vial) 4 mg IVPUSH Q8H PRN PRN Reason: Nausea and Vomiting Quetiapine Fumarate (Quetiapine Fumarate 50 Mg Tablet) 50 mg PO TID PRN PRN Reason: Anxiety Last Admin: 06/03/24 22:28 Dose: 50 mg Documented By: CALVIN Sodium Chloride (0.9 % Sodium Chloride Flush 3 Ml Syringe) 3 ml IVFLUSH QSHIFT [facility] Last Admin: 06/04/24 08:31 Dose: 3 ml Documented By: KAVITA Topiramate (Topiramate 100 Mg Tablet) 100 mg PO BID [facility] Last Admin: 06/03/24 22:27 Dose: 100 mg Documented By: CALVIN Warfarin Sodium (Warfarin Sodium 2 Mg Tablet) 2 mg PO DAILY@1800 [facility] Labs 06/02/24 09:22 06/03/24 08:05 Labs: Laboratory Results - last 24 hr 05/29/24 06/02/24 06/03/24 23:34 06:43 16:34 Hold Purple Top PT INR Ur 24 Hour Volume Cancelled Ur Creatinine mg/dL Cancelled Ur Creatinine 24 Hour Cancelled Ur Total Protein 24 Hr Cancelled Complement C3 75 L Complement C4 5 L HIV 1&2 Ab/P24 Ag 4thGn Nonreactive 06/04/24 06:29 Hold Purple Top SEE NOTE PT 22.8 H D INR 2.0 H D Ur 24 Hour Volume Ur Creatinine mg/dL Ur Creatinine 24 Hour Ur Total Protein 24 Hr Complement C3 Complement C4 HIV 1&2 Ab/P24 Ag 4thGn Microbiology Microbiology Results: Microbiology 05/29/24 19:56 Blood Culture - Final Blood - Venous No growth after 5 days. Assessment and Plan (1) Acute renal failure superimposed on chronic kidney disease: Status: Acute Plan 43 yo F with multiple medical problems who presents with edema and shortness of breath. Found to have GERRI + anasarca GERRI on CKD likely due to underlying lupus nephrology on board, follow recs> plan for solu-medrol 1g daily; plan for biopsy [place] if not improved, renal doppler (concern over venous/arterial thrombus) results pending dialysis per nephrology Transaminitis continue to monitor down-trending Anti-phospholipid syndrome with supratherapeutic INR INR as high 4.1, today 2.0 resume warfarin Normocytic anemia Likely secondary to renal disease History of lupus see #1 Chronic opiate dependence methadone HTN continue norvasc should improve with fluid removal via dialysis Mood continue home meds Full Code DVT pptx - coumadin Quality Stroke Does the patient have a stroke diagnosis?: No VTE Prior VTE?: Yes VTE Risk Level:: Medical - moderate - high VTE Device Contraindication: Treatment Not Indicated VTE Drug Contraindication: N/A - Med Ordered
[2024-06-04] MEDS: cloNIDine HCL 0.1 MG TABLET PO ×2 (12:45→20:41)
[2024-06-04] MEDS: buPROPion HCl XL 300 MG TAB.ER.24H PO (12:45)
[2024-06-04] MEDS: Gabapentin 600 MG TABLET PO ×2 (12:46→20:39)
[2024-06-04] MEDS: Topiramate 100 MG TABLET PO ×2 (12:46→20:40)
[2024-06-04] MEDS: amLODIPine Besylate 10 MG TABLET PO (12:46)
[2024-06-04] MEDS: Cyanocobalamin (Vitamin B-12) 100 MCG TABLET PO (12:46)
[2024-06-04] MEDS: methylPREDNISolone Sod Succ 1,000 MG in 0.9 % Sodium Chloride 50 ML 66 MG IV (12:48)
[2024-06-04] MEDS: hydrOXYzine HCL 50 MG TABLET PO (14:51)
[2024-06-04] MEDS: QUEtiapine Fumarate 50 MG TABLET PO ×2 (14:51→20:40)
[2024-06-04 15:08] VITALS: BP 156/98; PULSE 65; RESP 12; TEMP 36.2; O2SAT 100
[2024-06-04] MEDS: HYDROmorphone HCl 0.5 MG/0.5 ML SYRINGE IVPUSH (15:10)
[2024-06-04] MEDS: methADONE HCl 20 MG/2 ML ORAL.CONC 95 MG PO (16:47)
[2024-06-04 20:00] VITALS: BP 157/84; PULSE 85; RESP 20; TEMP 36.6; O2SAT 94
[2024-06-04] MEDS: cloNIDine HCL 0.2 MG TABLET PO (20:40)
[2024-06-05] VITALS: BP 127/78; PULSE 67; RESP 16; TEMP 36.6; O2SAT 96
[2024-06-05 03:18] VITALS: BP 166/91; PULSE 80; RESP 18; TEMP 36.4; O2SAT 100
[2024-06-05] MEDS: hydrOXYzine HCL 50 MG TABLET PO ×3 (03:19→20:41)
[2024-06-05] MEDS: HYDROmorphone HCl 0.5 MG/0.5 ML SYRINGE IVPUSH ×2 (03:20→12:07)
[2024-06-05] MEDS: Omeprazole 20 MG CAPSULE.DR PO (06:25)
[2024-06-05 07:13] LABS: INTERNATIONAL NORM RATIO 1.5 (0.9-1.1); Prothrombin Time 17.4 SEC (10.9-12.4)
[2024-06-05 07:21] VITALS: BP 174/91; PULSE 82; RESP 14; TEMP 36.6; O2SAT 97
[2024-06-05] MEDS: Gabapentin 600 MG TABLET PO ×2 (08:32→20:41)
[2024-06-05] MEDS: Cyanocobalamin (Vitamin B-12) 100 MCG TABLET PO (08:32)
[2024-06-05] MEDS: Topiramate 100 MG TABLET PO ×2 (08:32→20:41)
[2024-06-05] MEDS: buPROPion HCl XL 300 MG TAB.ER.24H PO (08:33)
[2024-06-05] MEDS: amLODIPine Besylate 10 MG TABLET PO (08:33)
[2024-06-05] MEDS: cloNIDine HCL 0.1 MG TABLET PO ×2 (08:33→20:41)
[2024-06-05] MEDS: methADONE HCl 20 MG/2 ML ORAL.CONC 100 MG PO (08:33)
[2024-06-05] MEDS: methylPREDNISolone Sod Succ 1,000 MG in 0.9 % Sodium Chloride 50 ML 66 MG IV (08:35)
[2024-06-05] MEDS: 0.9 % Sodium Chloride Flush 3 ML SYRINGE IVFLUSH ×2 (08:36)
--- NOTE | 2024-06-05 10:15 | HO.PM.IMPN ---
Subjective Subjective Date of Service: 06/05/24 Interval History: seen and examined this AM reports feeling better daily Review of Systems Negative except HPI/interval history. Constitutional Constitutional: Reports as per HPI, Reports no additional constitutional complaints, Denies body ache(s), Reports chills, Reports fatigue, Denies fever(s) and Reports headache(s) Eyes Eyes: Denies change in vision ENT Ears, Nose, Mouth, and Throat: Reports headache(s), Denies nasal congestion, Denies nasal discharge and Denies sore throat Cardiovascular Cardiovascular: Denies chest pain, Denies rapid heart rate, Reports leg edema and Reports dyspnea Respiratory Respiratory: Denies chest congestion, Denies cough, Reports dyspnea and Denies wheezing Gastrointestinal Gastrointestinal: Reports constipation, Denies diarrhea, Reports nausea, Reports vomiting and Denies hematemesis Musculoskeletal Musculoskeletal: Denies numbness and Denies tingling Integumentary/Breasts Skin/Breast: Reports as per HPI and Reports lesions Neurologic Neurologic: Denies confusion, Reports headache(s), Denies memory loss, Denies numbness and Denies tingling Psychiatric Psychiatric: Denies confusion and Denies memory loss Endocrine Endocrine: Reports fatigue Hematologic/Lymphatic Hematologic/Lymphatic: Denies easy bleeding and Denies easy bruising Allergic/Immunologic Allergic/Immunologic: Denies wheezing Physical Exam Vital Signs: Vital Signs: Last Vital Signs Temp 97.9 F 06/05/24 07:21 Pulse 82 06/05/24 07:21 Resp 14 06/05/24 07:21 BP 174/91 H 06/05/24 07:21 Pulse Ox 97 06/05/24 07:21 O2 Del Method Room Air 06/05/24 07:21 BMI result Body Mass Index 30.6 Appearing in no acute distress lung sounds are clear to auscultation heart regular rate rhythm, clear S1, S2 positive bowel sounds, abdomen is soft, nontender neuro patient is alert x3, no focal deficits Const: General: No confusion Orientation/consciousness: No confusion Neuro: General: No confusion Objective Data Active Medications Acetaminophen (Acetaminophen 325 Mg Tablet) 650 mg PO Q6H PRN PRN Reason: Pain, Mild 1-3,fever,headache Last Admin: 06/02/24 19:59 Dose: 650 mg Documented By: POPEYE Amlodipine Besylate (Amlodipine Besylate 10 Mg Tablet) 10 mg PO DAILY [facility]; Protocol Last Admin: 06/05/24 08:33 Dose: 10 mg Documented By: KAVITA Bupropion HCl (Bupropion Hcl Xl 300 Mg Tab.Er.24h) 300 mg PO DAILY [facility] Last Admin: 06/05/24 08:33 Dose: 300 mg Documented By: KAVITA Calcium Carbonate (Calcium Carbonate 750 Mg Tab.Chew) 750 mg PO Q4H PRN PRN Reason: Heartburn Clonidine HCl (Clonidine Hcl 0.1 Mg Tablet) 0.1 mg PO BID [facility]; Protocol Last Admin: 06/05/24 08:33 Dose: 0.1 mg Documented By: KAVITA Clonidine HCl (Clonidine Hcl 0.2 Mg Tablet) 0.2 mg PO BEDTIME [facility]; Protocol Last Admin: 06/04/24 20:40 Dose: 0.2 mg Documented By: CALVIN Cyanocobalamin (Cyanocobalamin (Vitamin B-12) 100 Mcg Tablet) 100 mcg PO DAILY [facility] Last Admin: 06/05/24 08:32 Dose: 100 mcg Documented By: KAVITA Gabapentin (Gabapentin 600 Mg Tablet) 600 mg PO BID [facility] Last Admin: 06/05/24 08:32 Dose: 600 mg Documented By: KAVITA Heparin Sodium (Porcine) (Heparin Sodium,Porcine 5,000 Unit/Ml Vial) 5,000 unit INTRACATH ONCE ONE Stop: 06/06/24 06:01 Hydromorphone HCl (Hydromorphone Hcl 0.5 Mg/0.5 Ml Syringe) 0.5 mg IVPUSH Q6H PRN; Protocol PRN Reason: Pain, Severe (Pain Scale 7-10) Last Admin: 06/05/24 03:20 Dose: 0.5 mg Documented By: CALVIN Hydroxyzine HCl (Hydroxyzine Hcl 50 Mg Tablet) 50 mg PO TID PRN PRN Reason: Anxiety Last Admin: 06/05/24 03:19 Dose: 50 mg Documented By: CALVIN Magnesium Hydroxide (Milk Of Magnesia 30 Ml Oral.Susp) 30 ml PO DAILY PRN PRN Reason: Constipation Melatonin (Melatonin 3 Mg Tablet) 6 mg PO BEDTIME PRN PRN Reason: Insomnia Methadone HCl (Methadone Hcl 20 Mg/2 Ml Oral.Conc) 100 mg PO DAILY [facility] Last Admin: 06/05/24 08:33 Dose: 100 mg Documented By: KAVITA Co-signed By: JANIE Methadone HCl (Methadone Hcl 20 Mg/2 Ml Oral.Conc) 95 mg PO DAILY@1700 [facility] Last Admin: 06/04/24 16:47 Dose: 95 mg Documented By: KAVITA Co-signed By: JANIE Nicotine Polacrilex (Nicotine Polacrilex Lozenge 2 Mg Lozenge) 2 mg BUCCAL Q2H PRN PRN Reason: Nicotine Cravings Non-Formulary Medication (Lumateperone [Caplyta]) 42 mg PO DAILY [facility] Nystatin (Nystatin Oral Susp 500,000 Unit/5 Ml Oral.Susp) 500,000 unit PO DAILY PRN; Protocol PRN Reason: THROAT THRUSH Omeprazole (Omeprazole 20 Mg Capsule.Dr) 20 mg PO DAILY@0630 [facility] Last Admin: 06/05/24 06:25 Dose: 20 mg Documented By: CALVIN Ondansetron HCl (Ondansetron Hcl 4 Mg/2 Ml Vial) 4 mg IVPUSH Q8H PRN PRN Reason: Nausea and Vomiting Polyethylene Glycol (Polyethylene Glycol 3350 17 Gm Powd.Pack) 17 gm PO DAILY PRN PRN Reason: Constipation Quetiapine Fumarate (Quetiapine Fumarate 50 Mg Tablet) 50 mg PO TID PRN PRN Reason: Anxiety Last Admin: 06/04/24 20:40 Dose: 50 mg Documented By: CALVIN Sodium Chloride (0.9 % Sodium Chloride Flush 3 Ml Syringe) 3 ml IVFLUSH QSHIFT [facility] Last Admin: 06/05/24 08:36 Dose: 3 ml Documented By: KAVITA Topiramate (Topiramate 100 Mg Tablet) 100 mg PO BID [facility] Last Admin: 06/05/24 08:32 Dose: 100 mg Documented By: KAVITA Trazodone HCl (Trazodone Hcl 100 Mg Tablet) 100 mg PO BEDTIME PRN PRN Reason: Insomnia Warfarin Sodium (Warfarin Sodium 2 Mg Tablet) 2 mg PO DAILY@1800 [facility] Last Admin: 06/04/24 16:50 Dose: Not Given Documented By: KAVITA Non-Admin Reason: Patient Refused Labs 06/02/24 09:22 06/03/24 08:05 Labs: Laboratory Results - last 24 hr 06/05/24 06:32 Hold Purple Top SEE NOTE PT 17.4 H D INR 1.5 H Assessment and Plan (1) Acute renal failure superimposed on chronic kidney disease: Status: Acute Plan 43 yo F with multiple medical problems who presents with edema and shortness of breath. Found to have GERRI + anasarca GERRI on CKD likely due to underlying lupus nephrology on board, follow recs> continue solu-medrol 1g daily; plan for biopsy Thursday , renal doppler (concern over venous/arterial thrombus) results pending dialysis per nephrology Transaminitis continue to monitor down-trending Anti-phospholipid syndrome with supratherapeutic INR INR as high 4.1, today 1.5 hold warfarin for procedure Normocytic anemia Likely secondary to renal disease History of lupus see #1 Chronic opiate dependence methadone HTN continue norvasc should improve with fluid removal via dialysis Mood continue home meds Full Code DVT pptx - hold coumadin for renal biopsy tomorrow Quality Stroke Does the patient have a stroke diagnosis?: No VTE Prior VTE?: Yes VTE Risk Level:: Medical - moderate - high VTE Device Contraindication: Treatment Not Indicated VTE Drug Contraindication: N/A - Med Ordered
[2024-06-05 11:14] VITALS: BP 161/95; PULSE 84; RESP 16; TEMP 36.7; O2SAT 98
[2024-06-05] MEDS: Nystatin Oral Susp 500,000 UNIT/5 ML ORAL.SUSP 500000 UNIT PO (14:41)
[2024-06-05 16:00] VITALS: BP 174/98; PULSE 88; RESP 19; TEMP 37.1; O2SAT 99
[2024-06-05] MEDS: methADONE HCl 20 MG/2 ML ORAL.CONC 95 MG PO (16:53)
[2024-06-05 20:00] VITALS: BP 163/88; PULSE 88; RESP 20; TEMP 36.7; O2SAT 99
[2024-06-05] MEDS: Mag&Al/Sim/Diphenhyd/Lidocaine 10 ML ORAL.SUSP PO (20:41)
[2024-06-05] MEDS: cloNIDine HCL 0.2 MG TABLET PO (20:41)
[2024-06-05] MEDS: QUEtiapine Fumarate 50 MG TABLET PO (20:41)
[2024-06-06] VITALS (8 sets, daily range): BP systolic 145–174; BP diastolic 81–99; PULSE 76–89; RESP 16–20; TEMP 36.2–37.2; O2SAT 94–100
[2024-06-06] MEDS: HYDROmorphone HCl 0.5 MG/0.5 ML SYRINGE IVPUSH ×3 (02:03→19:51)
--- NOTE | 2024-06-06 08:50 | P.PNNP_ITS ---
Subjective Subjective Date of Service: 06/06/24 Interval history: seen and examined this AM last hd sat Physical Exam 2 Vital Signs: Vital Signs: Last Vital Signs Temp 97.1 F 06/06/24 08:00 Pulse 89 06/06/24 08:00 Resp 18 06/06/24 08:00 BP 148/99 H 06/06/24 04:00 Pulse Ox 100 06/06/24 08:00 O2 Del Method Room Air 06/06/24 08:00 BMI result Body Mass Index 30.6 Const: General: comfortable, no acute distress and ill appearing O rientation/consciousness: patient oriented x3 HEENT: Head: Yes normocephalic Mouth: Normal oral and palatal mucosa present Eyes: EOM: EOMs intact bilaterally Neck: Neck: Yes supple Resp: Auscultation: clear to auscultation bilaterally Cardio: Jugular venous distension: no JVD Palpation: no palpable S3 R ate: regular rate Heart sounds: no rubs GI: Palpation (GI): Soft to palpation Auscultation: normal bowel sounds : General: Yes no CVA tenderness Back/Spine/Pelvis: Back: no CVA tenderness Skin: General skin exam: no rashes or lesions noted Neuro: General: patient oriented x3 and moves all extremities Motor exam (neuro): no asterixis Objective Data Labs 06/02/24 09:22 06/03/24 08:05 Microbiology Microbiology Results: Microbiology 05/29/24 19:56 Blood - Venous Blood Culture - Final No growth after 5 days. 05/29/24 19:56 Blood - Venous Blood Culture - Final Bacillus species 05/29/24 Unknown Urine clean catch - Clean Catch Midstream Urine Culture - Final Procedures Date of Service Date of Service: 06/06/24 Assessment & Plan Assessment and plan (1) Acute renal failure superimposed on chronic kidney disease: Status: Acute Plan GERRI superimposed on advanced CKD; ? ESRD Doppler of renal arteries and veins; s/p pulse Methylprednisone 1 gm x 3 days Biopsy today If biopsy delayed, shall start pred 60 mg daily after pulse M Pred Time Spent With Patient Time: Total time managing care of this patient today ____ minutes. Progress Note: Quality Stroke Does the patient have a stroke diagnosis?: No
[2024-06-06] MEDS: cloNIDine HCL 0.1 MG TABLET PO ×2 (09:28→19:51)
[2024-06-06] MEDS: buPROPion HCl XL 300 MG TAB.ER.24H PO (09:28)
[2024-06-06] MEDS: Topiramate 100 MG TABLET PO ×2 (09:29→19:51)
[2024-06-06] MEDS: Gabapentin 600 MG TABLET PO ×2 (09:29→19:51)
[2024-06-06] MEDS: Cyanocobalamin (Vitamin B-12) 100 MCG TABLET PO (09:29)
[2024-06-06] MEDS: amLODIPine Besylate 10 MG TABLET PO (09:29)
[2024-06-06] MEDS: methADONE HCl 20 MG/2 ML ORAL.CONC 100 MG PO (09:30)
[2024-06-06 09:37] LABS: INTERNATIONAL NORM RATIO 1.2 (0.9-1.1); Prothrombin Time 14.2 SEC (10.9-12.4)
[2024-06-06] MEDS: 0.9 % Sodium Chloride Flush 3 ML SYRINGE IVFLUSH ×3 (10:46→19:52)
--- NOTE | 2024-06-06 10:53 | MHC.CM.PN ---
Per ROUNDS discussion, Patient is not yet medically cleared for dc (renal biopsy tomorrow); Patient will benefit from a PT Eval to assist with disposition.
--- NOTE | 2024-06-06 11:05 | HO.PM.IMPN ---
Subjective Subjective Date of Service: 06/06/24 Interval History: seen and examined this AM reports feeling better daily Review of Systems Negative except HPI/interval history. Constitutional Constitutional: Reports as per HPI, Reports no additional constitutional complaints, Denies body ache(s), Reports chills, Reports fatigue, Denies fever(s) and Reports headache(s) Eyes Eyes: Denies change in vision ENT Ears, Nose, Mouth, and Throat: Reports headache(s), Denies nasal congestion, Denies nasal discharge and Denies sore throat Cardiovascular Cardiovascular: Denies chest pain, Denies rapid heart rate, Reports leg edema and Reports dyspnea Respiratory Respiratory: Denies chest congestion, Denies cough, Reports dyspnea and Denies wheezing Gastrointestinal Gastrointestinal: Reports constipation, Denies diarrhea, Reports nausea, Reports vomiting and Denies hematemesis Musculoskeletal Musculoskeletal: Denies numbness and Denies tingling Integumentary/Breasts Skin/Breast: Reports as per HPI and Reports lesions Neurologic Neurologic: Denies confusion, Reports headache(s), Denies memory loss, Denies numbness and Denies tingling Psychiatric Psychiatric: Denies confusion and Denies memory loss Endocrine Endocrine: Reports fatigue Hematologic/Lymphatic Hematologic/Lymphatic: Denies easy bleeding and Denies easy bruising Allergic/Immunologic Allergic/Immunologic: Denies wheezing Physical Exam Vital Signs: Vital Signs: Last Vital Signs Temp 97.1 F 06/06/24 08:00 Pulse 89 06/06/24 08:00 Resp 18 06/06/24 08:00 BP 174/90 H 06/06/24 09:29 Pulse Ox 100 06/06/24 08:00 O2 Del Method Room Air 06/06/24 08:00 BMI result Body Mass Index 30.6 Appearing in no acute distress lung sounds are clear to auscultation heart regular rate rhythm, clear S1, S2 positive bowel sounds, abdomen is soft, nontender neuro patient is alert x3, no focal deficits Const: General: No confusion Orientation/consciousness: No confusion Neuro: General: No confusion Objective Data Active Medications Acetaminophen (Acetaminophen 325 Mg Tablet) 650 mg PO Q6H PRN PRN Reason: Pain, Mild 1-3,fever,headache Last Admin: 06/02/24 19:59 Dose: 650 mg Documented By: POPEYE Amlodipine Besylate (Amlodipine Besylate 10 Mg Tablet) 10 mg PO DAILY [facility]; Protocol Last Admin: 06/06/24 09:29 Dose: 10 mg Documented By: MONALISA Bupropion HCl (Bupropion Hcl Xl 300 Mg Tab.Er.24h) 300 mg PO DAILY [facility] Last Admin: 06/06/24 09:28 Dose: 300 mg Documented By: MONALISA Calcium Carbonate (Calcium Carbonate 750 Mg Tab.Chew) 750 mg PO Q4H PRN PRN Reason: Heartburn Clonidine HCl (Clonidine Hcl 0.1 Mg Tablet) 0.1 mg PO BID [facility]; Protocol Last Admin: 06/06/24 09:28 Dose: 0.1 mg Documented By: MONALISA Clonidine HCl (Clonidine Hcl 0.2 Mg Tablet) 0.2 mg PO BEDTIME [facility]; Protocol Last Admin: 06/05/24 20:41 Dose: 0.2 mg Documented By: DOROTHY Cyanocobalamin (Cyanocobalamin (Vitamin B-12) 100 Mcg Tablet) 100 mcg PO DAILY [facility] Last Admin: 06/06/24 09:29 Dose: 100 mcg Documented By: MONALISA Gabapentin (Gabapentin 600 Mg Tablet) 600 mg PO BID [facility] Last Admin: 06/06/24 09:29 Dose: 600 mg Documented By: MONALISA Hydromorphone HCl (Hydromorphone Hcl 0.5 Mg/0.5 Ml Syringe) 0.5 mg IVPUSH Q6H PRN; Protocol PRN Reason: Pain, Severe (Pain Scale 7-10) Last Admin: 06/06/24 09:27 Dose: 0.5 mg Documented By: MONALISA Hydroxyzine HCl (Hydroxyzine Hcl 50 Mg Tablet) 50 mg PO TID PRN PRN Reason: Anxiety Last Admin: 06/05/24 20:41 Dose: 50 mg Documented By: DOROTHY Magnesium Hydroxide (Milk Of Magnesia 30 Ml Oral.Susp) 30 ml PO DAILY PRN PRN Reason: Constipation Melatonin (Melatonin 3 Mg Tablet) 6 mg PO BEDTIME PRN PRN Reason: Insomnia Methadone HCl (Methadone Hcl 20 Mg/2 Ml Oral.Conc) 100 mg PO DAILY [facility] Last Admin: 06/06/24 09:30 Dose: 100 mg Documented By: MONALISA Co-signed By: MONICA Methadone HCl (Methadone Hcl 20 Mg/2 Ml Oral.Conc) 95 mg PO DAILY@1700 [facility] Last Admin: 06/05/24 16:53 Dose: 95 mg Documented By: KAVITA Co-signed By: JANIE Nicotine Polacrilex (Nicotine Polacrilex Lozenge 2 Mg Lozenge) 2 mg BUCCAL Q2H PRN PRN Reason: Nicotine Cravings Non-Formulary Medication (Lumateperone [Caplyta]) 42 mg PO DAILY [facility] Nystatin (Nystatin Oral Susp 500,000 Unit/5 Ml Oral.Susp) 500,000 unit PO DAILY PRN; Protocol PRN Reason: THROAT THRUSH Last Admin: 06/05/24 14:41 Dose: 500,000 unit Documented By: KAVITA Omeprazole (Omeprazole 20 Mg Capsule.Dr) 20 mg PO DAILY@0630 [facility] Last Admin: 06/06/24 04:53 Dose: Not Given Documented By: DOROTHY Non-Admin Reason: NPO Ondansetron HCl (Ondansetron Hcl 4 Mg/2 Ml Vial) 4 mg IVPUSH Q8H PRN PRN Reason: Nausea and Vomiting Polyethylene Glycol (Polyethylene Glycol 3350 17 Gm Powd.Pack) 17 gm PO DAILY PRN PRN Reason: Constipation Quetiapine Fumarate (Quetiapine Fumarate 50 Mg Tablet) 50 mg PO TID PRN PRN Reason: Anxiety Last Admin: 06/05/24 20:41 Dose: 50 mg Documented By: DOROTHY Sodium Chloride (0.9 % Sodium Chloride Flush 3 Ml Syringe) 3 ml IVFLUSH QSHIFT [facility] Last Admin: 06/06/24 10:46 Dose: 3 ml Documented By: MONALISA Topiramate (Topiramate 100 Mg Tablet) 100 mg PO BID [facility] Last Admin: 06/06/24 09:29 Dose: 100 mg Documented By: MONALISA Trazodone HCl (Trazodone Hcl 100 Mg Tablet) 100 mg PO BEDTIME PRN PRN Reason: Insomnia Warfarin Sodium (Warfarin Sodium 2 Mg Tablet) 2 mg PO DAILY@1800 [facility] Last Admin: 06/04/24 16:50 Dose: Not Given Documented By: KAVITA Non-Admin Reason: Patient Refused Labs 06/02/24 09:22 06/03/24 08:05 Labs: Laboratory Results - last 24 hr 06/06/24 08:50 PT 14.2 H INR 1.2 H Assessment and Plan (1) Acute renal failure superimposed on chronic kidney disease: Status: Acute Plan 43 yo F with multiple medical problems who presents with edema and shortness of breath. Found to have GERRI + anasarca GERRI on CKD likely due to underlying lupus nephrology on board, follow recs> s/p solu-medrol 1g daily x3 days; plan for biopsy Thursday , renal doppler neg for bebo dialysis per nephrology Transaminitis continue to monitor down-trending Anti-phospholipid syndrome with supratherapeutic INR INR as high 4.1, today 1.2 hold warfarin for procedure, patient insists on continuing to hold ac rather than starting IV heparin for 24 hrs prior to procedure Normocytic anemia Likely secondary to renal disease History of lupus see #1 Chronic opiate dependence methadone HTN continue norvasc should improve with fluid removal via dialysis Mood continue home meds Full Code DVT pptx - hold coumadin for renal biopsy tomorrow Quality Stroke Does the patient have a stroke diagnosis?: No VTE Prior VTE?: Yes VTE Risk Level:: Medical - moderate - high VTE Device Contraindication: Treatment Not Indicated VTE Drug Contraindication: N/A - Med Ordered
[2024-06-06] MEDS: Fluconazole 150 MG TABLET PO (13:29)
[2024-06-06] MEDS: Mag&Al/Sim/Diphenhyd/Lidocaine 10 ML ORAL.SUSP PO (13:29)
[2024-06-06] MEDS: hydrOXYzine HCL 50 MG TABLET PO ×2 (13:37→19:50)
[2024-06-06] MEDS: QUEtiapine Fumarate 50 MG TABLET PO ×2 (13:37→19:50)
--- NOTE | 2024-06-06 14:17 | HO.WOUND ---
Wound Consult: Initial 43yr old?female admitted to [facility] [place] on 05[place]30/24 - See progress notes and H&P for detailed history.? Wound consult placed for Right Lower Leg Wound.? Patient agreeable to assessment and photo documentation.? Patient is noted for various old scar tissue lesions. She reports the wound started out as a scab but as the fluid increased in her legs the wound progressed. She reports she is unaware how she obtained the injury but belive she hit her leg as she often does per her statement. Right Lower Leg Etiology: ??Ulceration Present on Admission Measurements: 1cm x 1cm x 0.4cm Wound Bed: pale pink wound bed with moist soft yellow white slough Drainage / Odor: clear serous drainage noted no odor Edges: ?unattached Rekha wound: ? intact - firm edema noted - no s/s of active infection noted at this time - No Induration, Fluctuance or Warmth noted Pain: tenderness noted with cleaning Goals of Treatment: ? Durafiber AG for moisture management Recommendations: 1. Right Lower Leg - Elevate on pillows to aid in fluid management. Cleanse with NS moist gauze, pat dry. Apply skin prep to periwound, cover wound bed with Durafiber AG, cover with foam dressing. Change every other day. Re-consult wound care Nurse for wound deterioration or wound changes.
[2024-06-06] MEDS: methADONE HCl 20 MG/2 ML ORAL.CONC 95 MG PO (18:13)
[2024-06-06] MEDS: cloNIDine HCL 0.2 MG TABLET PO (19:51)
[2024-06-07] VITALS (26 sets, daily range): BP systolic 100–1112; BP diastolic 57–102; PULSE 66–92; RESP 14–118; TEMP 36.1–38; O2SAT 94–100
[2024-06-07] MEDS: HYDROmorphone HCl 0.5 MG/0.5 ML SYRINGE IVPUSH ×3 (06:28→21:38)
[2024-06-07 07:44] LABS: INTERNATIONAL NORM RATIO 1.1 (0.9-1.1); Prothrombin Time 13.3 SEC (10.9-12.4)
[2024-06-07] MEDS: buPROPion HCl XL 300 MG TAB.ER.24H PO (08:56)
[2024-06-07] MEDS: Topiramate 100 MG TABLET PO ×2 (08:56→20:57)
[2024-06-07] MEDS: Gabapentin 600 MG TABLET PO ×2 (08:56→20:57)
[2024-06-07] MEDS: methADONE HCl 20 MG/2 ML ORAL.CONC 100 MG PO (08:57)
--- NOTE | 2024-06-07 09:55 | P.PNIM_ITS ---
Subjective Subjective Date of Service: 06/07/24 Interval History: seen and examined this AM reports feeling better daily Review of Systems Negative except HPI/interval history. Constitutional Constitutional: Reports as per HPI, Reports no additional constitutional complaints, Denies body ache(s), Reports chills, Reports fatigue, Denies fever(s) and Reports headache(s) Eyes Eyes: Denies change in vision ENT Ears, Nose, Mouth, and Throat: Reports headache(s), Denies nasal congestion, Denies nasal discharge and Denies sore throat Cardiovascular Cardiovascular: Denies chest pain, Denies rapid heart rate, Reports leg edema and Reports dyspnea Respiratory Respiratory: Denies chest congestion, Denies cough, Reports dyspnea and Denies wheezing Gastrointestinal Gastrointestinal: Reports constipation, Denies diarrhea, Reports nausea, Reports vomiting and Denies hematemesis Musculoskeletal Musculoskeletal: Denies numbness and Denies tingling Integumentary/Breasts Skin/Breast: Reports as per HPI and Reports lesions Neurologic Neurologic: Denies confusion, Reports headache(s), Denies memory loss, Denies numbness and Denies tingling Psychiatric Psychiatric: Denies confusion and Denies memory loss Endocrine Endocrine: Reports fatigue Hematologic/Lymphatic Hematologic/Lymphatic: Denies easy bleeding and Denies easy bruising Allergic/Immunologic Allergic/Immunologic: Denies wheezing Physical Exam 2 Vital Signs: Vital Signs: Last Vital Signs Temp 96.9 F 06/07/24 07:13 Pulse 86 06/07/24 07:13 Resp 17 06/07/24 07:13 BP 164/87 H 06/07/24 07:13 Pulse Ox 94 06/07/24 07:13 O2 Del Method Room Air 06/07/24 07:13 BMI result Body Mass Index 30.6 Appearing in no acute distress lung sounds are clear to auscultation heart regular rate rhythm, clear S1, S2 positive bowel sounds, abdomen is soft, nontender neuro patient is alert x3, no focal deficits Const: General: No confusion Orientation/consciousness: No confusion Neuro: General: No confusion Objective Data Active Medications Acetaminophen (Acetaminophen 325 Mg Tablet) 650 mg PO Q6H PRN PRN Reason: Pain, Mild 1-3,fever,headache Last Admin: 06/02/24 19:59 Dose: 650 mg Documented By: POPEYE Amlodipine Besylate (Amlodipine Besylate 10 Mg Tablet) 10 mg PO DAILY [facility]; Protocol Last Admin: 06/07/24 09:00 Dose: Not Given Documented By: GEORGES Non-Admin Reason: in dialysis Bupropion HCl (Bupropion Hcl Xl 300 Mg Tab.Er.24h) 300 mg PO DAILY [facility] Last Admin: 06/07/24 08:56 Dose: 300 mg Documented By: GEORGES Calcium Carbonate (Calcium Carbonate 750 Mg Tab.Chew) 750 mg PO Q4H PRN PRN Reason: Heartburn Clonidine HCl (Clonidine Hcl 0.1 Mg Tablet) 0.1 mg PO BID [facility]; Protocol Last Admin: 06/07/24 08:59 Dose: Not Given Documented By: GEORGES Non-Admin Reason: in dialysis Clonidine HCl (Clonidine Hcl 0.2 Mg Tablet) 0.2 mg PO BEDTIME [facility]; Protocol Last Admin: 06/06/24 19:51 Dose: 0.2 mg Documented By: DOROTHY Clotrimazole (Clotrimazole 1 % Cream 15 Gm Tube) 1 appl TOPICAL BID PRN; Protocol PRN Reason: vulvar itching Cyanocobalamin (Cyanocobalamin (Vitamin B-12) 100 Mcg Tablet) 100 mcg PO DAILY [facility] Last Admin: 06/07/24 08:59 Dose: Not Given Documented By: GEORGES Non-Admin Reason: in dialysis Gabapentin (Gabapentin 600 Mg Tablet) 600 mg PO BID [facility] Last Admin: 06/07/24 08:56 Dose: 600 mg Documented By: GEORGES Hydromorphone HCl (Hydromorphone Hcl 0.5 Mg/0.5 Ml Syringe) 0.5 mg IVPUSH Q6H PRN; Protocol PRN Reason: Pain, Severe (Pain Scale 7-10) Last Admin: 06/07/24 06:28 Dose: 0.5 mg Documented By: DOROTHY Hydroxyzine HCl (Hydroxyzine Hcl 50 Mg Tablet) 50 mg PO TID PRN PRN Reason: Anxiety Last Admin: 06/06/24 19:50 Dose: 50 mg Documented By: DOROTHY Acetaminophen (Ofirmev) 1,000 mg in 100 mls @ 400 mls/hr IV INTRAOP PRN PRN Reason: per intraop request by provider Lidocaine/Diphenhydr/Alum/Mg/Simeth (Mag&Al/Sim/Diphenhyd/Lidocaine 10 Ml Oral.Susp) 10 ml PO Q4H PRN; Protocol PRN Reason: thrush Last Admin: 06/06/24 13:29 Dose: 10 ml Documented By: MONALISA Magnesium Hydroxide (Milk Of Magnesia 30 Ml Oral.Susp) 30 ml PO DAILY PRN PRN Reason: Constipation Melatonin (Melatonin 3 Mg Tablet) 6 mg PO BEDTIME PRN PRN Reason: Insomnia Methadone HCl (Methadone Hcl 20 Mg/2 Ml Oral.Conc) 100 mg PO DAILY [facility] Last Admin: 06/07/24 08:57 Dose: 100 mg Documented By: GEORGES Co-signed By: JULITO Methadone HCl (Methadone Hcl 20 Mg/2 Ml Oral.Conc) 95 mg PO DAILY@1700 [facility] Last Admin: 06/06/24 18:13 Dose: 95 mg Documented By: MONALISA Co-signed By: SASHA Nicotine Polacrilex (Nicotine Polacrilex Lozenge 2 Mg Lozenge) 2 mg BUCCAL Q2H PRN PRN Reason: Nicotine Cravings Non-Formulary Medication (Lumateperone [Caplyta]) 42 mg PO DAILY [facility] Nystatin (Nystatin Oral Susp 500,000 Unit/5 Ml Oral.Susp) 500,000 unit PO DAILY PRN; Protocol PRN Reason: THROAT THRUSH Last Admin: 06/05/24 14:41 Dose: 500,000 unit Documented By: KAVITA Omeprazole (Omeprazole 20 Mg Capsule.Dr) 20 mg PO DAILY@0630 [facility] Last Admin: 06/07/24 03:56 Dose: Not Given Documented By: DOROTHY Non-Admin Reason: NPO Ondansetron HCl (Ondansetron Hcl 4 Mg/2 Ml Vial) 4 mg IVPUSH Q8H PRN PRN Reason: Nausea and Vomiting Polyethylene Glycol (Polyethylene Glycol 3350 17 Gm Powd.Pack) 17 gm PO DAILY PRN PRN Reason: Constipation Quetiapine Fumarate (Quetiapine Fumarate 50 Mg Tablet) 50 mg PO TID PRN PRN Reason: Anxiety Last Admin: 06/06/24 19:50 Dose: 50 mg Documented By: ARJUNZENick Sodium Chloride (0.9 % Sodium Chloride Flush 3 Ml Syringe) 3 ml IVFLUSH QSHIFT [facility] Last Admin: 06/07/24 08:43 Dose: Not Given Documented By: GEORGES Non-Admin Reason: Previously Administered Topiramate (Topiramate 100 Mg Tablet) 100 mg PO BID [facility] Last Admin: 06/07/24 08:56 Dose: 100 mg Documented By: GEORGES Trazodone HCl (Trazodone Hcl 100 Mg Tablet) 100 mg PO BEDTIME PRN PRN Reason: Insomnia Warfarin Sodium (Warfarin Sodium 2 Mg Tablet) 2 mg PO DAILY@1800 [facility] Last Admin: 06/04/24 16:50 Dose: Not Given Documented By: KAVITA Non-Admin Reason: Patient Refused Labs 06/02/24 09:22 06/03/24 08:05 Labs: Laboratory Results - last 24 hr 06/07/24 06/07/24 06:44 08:20 PT 13.3 H INR 1.1 Blood Type O Positive Antibody Screen NEGATIVE Assessment and Plan (1) Acute renal failure superimposed on chronic kidney disease: Status: Acute Plan 43 yo F with multiple medical problems who presents with edema and shortness of breath. Found to have GERRI + anasarca GERRI on CKD likely due to underlying lupus nephrology on board, follow recs> s/p solu-medrol 1g daily x3 days; plan for biopsy today , renal doppler neg for bebo dialysis per nephrology>wait on biopdy results for plan, will need permacath and dialysis seat Vaginal yeast infection Fluconazole x1 Clotrimazole cream for a vulvar area as needed Transaminitis continue to monitor down-trending Anti-phospholipid syndrome with supratherapeutic INR INR as high 4.1, today 1.1 Resume warfarin after renal biopsy Normocytic anemia Likely secondary to renal disease History of lupus see #1 Chronic opiate dependence methadone HTN continue norvasc should improve with fluid removal via dialysis Mood continue home meds Full Code DVT pptx - coumadin Quality Stroke Does the patient have a stroke diagnosis?: No VTE Prior VTE?: Yes VTE Risk Level:: Medical - moderate - high VTE Device Contraindication: Treatment Not Indicated VTE Drug Contraindication: N/A - Med Ordered
[2024-06-07] MEDS: hydrALAZINE HCl 20 MG/ML VIAL IVPUSH (11:18)
[2024-06-07 11:28] LABS: UPreg QC Valid YES; Urine Pregnancy NEGATIVE (NEGATIVE)
[2024-06-07] MEDS: Labetalol HCL 100 MG/20 ML VIAL 20 MG IVPUSH (11:28)
[2024-06-07] MEDS: fentaNYL citrate/PF 100 MCG/2 ML VIAL 50 MCG IVPUSH (11:46)
[2024-06-07] MEDS: Midazolam HCl 2 MG/2 ML VIAL 1 MG IVPUSH (11:51)
[2024-06-07] MEDS: Lidocaine HCl 1 % MPF 30 ML VIAL SUBCUT (13:56)
--- NOTE | 2024-06-07 14:07 | PM.EVENT ---
Event Note Date of Service: 06/07/24 Event Note: Seen in PACU 2 hrs post right renal biopsy. She denies pain currently and is asking to eat. Afebrile, BP- SBP 110, HR - 60s, spO2 98% RA -Reg diet -Transfer back to medical floor -Strict BP control (goal <140/90). She required 20 mg Hydralazine and 20 mg Labetalol pre-procedure due to hypertension. Time Spent With Patient Time: Total time managing care of this patient today ____ minutes.
--- NOTE | 2024-06-07 14:10 | PM.PROC ---
Brief Operative Note Date of procedure: 06/07/24 Pre-op diagnosis: GERRI Post-op diagnosis: same Procedure: US right renal biopsy 3 x 18 g cores performed. No immediate complications.
[2024-06-07] MEDS: 0.9 % Sodium Chloride Flush 3 ML SYRINGE IVFLUSH ×2 (15:34→21:01)
[2024-06-07] MEDS: methADONE HCl 20 MG/2 ML ORAL.CONC 95 MG PO (17:25)
[2024-06-07] MEDS: Warfarin Sodium 5 MG TABLET PO (17:26)
--- NOTE | 2024-06-07 18:23 | P.PNNP_ITS ---
Subjective Subjective Date of Service: 06/07/24 Interval history: seen and examined this AM on HD; Due renal biopsy today; reports feeling better. Asking whether she can do dialysis at home Physical Exam 2 Vital Signs: Vital Signs: Last Vital Signs Temp 98.5 F 06/07/24 15:05 Pulse 71 06/07/24 15:05 Resp 18 06/07/24 15:05 BP 128/68 06/07/24 15:05 Pulse Ox 98 06/07/24 15:05 O2 Del Method Room Air 06/07/24 15:05 O2 Flow Rate 2 06/07/24 12:00 BMI result Body Mass Index 30.6 Const: General: comfortable and no acute distress O rientation/consciousness: patient oriented x3 HEENT: Head: Yes normocephalic Mouth: Normal oral and palatal mucosa present Eyes: EOM: EOMs intact bilaterally Neck: Neck: Yes supple Resp: Auscultation: clear to auscultation bilaterally Cardio: Jugular venous distension: no JVD Rate: regular rate GI: Palpation (GI): Soft to palpation Auscultation: normal bowel sounds : General: Yes no CVA tenderness Back/Spine/Pelvis: Back: no CVA tenderness Skin: General skin exam: no rashes or lesions noted Neuro: General: patient oriented x3 and moves all extremities Objective Data Labs 06/02/24 09:22 06/03/24 08:05 Labs: Laboratory Results - last 24 hr 06/07/24 06/07/24 06/07/24 06:44 08:20 11:18 PT 13.3 H INR 1.1 Urine Test NEGATIVE Blood Type O Positive Antibody Screen NEGATIVE Microbiology Microbiology Results: Microbiology 05/29/24 19:56 Blood - Venous Blood Culture - Final No growth after 5 days. 05/29/24 19:56 Blood - Venous Blood Culture - Final Bacillus species 05/29/24 Unknown Urine clean catch - Clean Catch Midstream Urine Culture - Final Procedures Date of Service Date of Service: 06/07/24 Assessment & Plan Assessment and plan (1) Acute renal failure superimposed on chronic kidney disease: Status: Acute Plan GERRI superimposed on advanced CKD; ? ESRD ; Seen on HD this morning Doppler of renal arteries and veins neg; Was given pulse Methylprednisone 1 gm x 3 days Biopsy today; HD TTS. Continued vol optimization on HD; Outpt HD spot NOT yet approved Needs permcath this week; Next HD [facility] Progress Note: Quality Stroke Does the patient have a stroke diagnosis?: No
--- NOTE | 2024-06-07 18:29 | PC.NURSE ---
Pt off to dialysis in am then for biopsy. Returns to unit approximately 1430 VSS. c/o pain to back dressing to right back CDI medicated with prn dilaudid with good effect. OOB independent steady gait. Tolerating diet.
[2024-06-07] MEDS: QUEtiapine Fumarate 50 MG TABLET PO (20:57)
[2024-06-07] MEDS: hydrOXYzine HCL 50 MG TABLET PO (20:57)
[2024-06-07] MEDS: traZODone HCL 100 MG TABLET PO (20:58)
[2024-06-07] MEDS: cloNIDine HCL 0.2 MG TABLET PO (20:58)
[2024-06-07] MEDS: cloNIDine HCL 0.1 MG TABLET PO (21:00)
[2024-06-08] VITALS (14 sets, daily range): BP systolic 124–181; BP diastolic 58–103; PULSE 68–99; RESP 13–20; TEMP 36.3–37.8; O2SAT 92–100
[2024-06-08] MEDS: HYDROmorphone HCl 0.5 MG/0.5 ML SYRINGE IVPUSH ×3 (03:36→21:17)
[2024-06-08] MEDS: Omeprazole 20 MG CAPSULE.DR PO (05:53)
[2024-06-08 07:32] LABS: INTERNATIONAL NORM RATIO 1.3 (0.9-1.1); Prothrombin Time 15.4 SEC (10.9-12.4)
[2024-06-08 08:48] LABS: IgA 555 mg/dL (47-310); IgG 1535 mg/dL (600-1640); IgM 127 mg/dL (50-300)
[2024-06-08] MEDS: Cyanocobalamin (Vitamin B-12) 100 MCG TABLET PO (09:15)
[2024-06-08] MEDS: buPROPion HCl XL 300 MG TAB.ER.24H PO (09:15)
[2024-06-08] MEDS: Topiramate 100 MG TABLET PO ×2 (09:15→21:09)
[2024-06-08] MEDS: amLODIPine Besylate 10 MG TABLET PO (09:15)
[2024-06-08] MEDS: cloNIDine HCL 0.1 MG TABLET PO ×2 (09:15→21:08)
[2024-06-08] MEDS: Gabapentin 600 MG TABLET PO ×2 (09:15→21:09)
[2024-06-08] MEDS: methADONE HCl 20 MG/2 ML ORAL.CONC 100 MG PO (09:15)
[2024-06-08] MEDS: 0.9 % Sodium Chloride Flush 3 ML SYRINGE IVFLUSH ×3 (09:26→21:09)
[2024-06-08] MEDS: fentaNYL citrate/PF 100 MCG/2 ML VIAL 50 MCG IVPUSH ×2 (10:10→10:14)
--- NOTE | 2024-06-08 10:13 | MHC.CM.PN ---
Per ROUNDS discussion, Patient is not yet medically cleared for dc (Perma cath today/biopsy results pending/Nephrology is beginning to arrange for community HD); Patient may benefit from a PT Eval to assist with disposition. CM will follow.
[2024-06-08] MEDS: fentaNYL citrate/PF 100 MCG/2 ML VIAL 25 MCG IVPUSH (10:23)
--- NOTE | 2024-06-08 10:48 | PM.PROC ---
Brief Operative Note Date of procedure: 06/08/24 Pre-op diagnosis: Needs long-term iv access for HD Post-op diagnosis: same Procedure: Permacath placement 23 cm Right IJ permacath placed using US and FL. Tip at cavoatrial junction. Ok for use. Right IJ trialysis catheter removed.
--- NOTE | 2024-06-08 12:10 | P.PNIM_ITS ---
Subjective Subjective Date of Service: 06/08/24 Interval History: seen and examined this AM reports feeling better daily Review of Systems Negative except HPI/interval history. Constitutional Constitutional: Reports as per HPI, Reports no additional constitutional complaints, Denies body ache(s), Reports chills, Reports fatigue, Denies fever(s) and Reports headache(s) Eyes Eyes: Denies change in vision ENT Ears, Nose, Mouth, and Throat: Reports headache(s), Denies nasal congestion, Denies nasal discharge and Denies sore throat Cardiovascular Cardiovascular: Denies chest pain, Denies rapid heart rate, Reports leg edema and Reports dyspnea Respiratory Respiratory: Denies chest congestion, Denies cough, Reports dyspnea and Denies wheezing Gastrointestinal Gastrointestinal: Reports constipation, Denies diarrhea, Reports nausea, Reports vomiting and Denies hematemesis Musculoskeletal Musculoskeletal: Denies numbness and Denies tingling Integumentary/Breasts Skin/Breast: Reports as per HPI and Reports lesions Neurologic Neurologic: Denies confusion, Reports headache(s), Denies memory loss, Denies numbness and Denies tingling Psychiatric Psychiatric: Denies confusion and Denies memory loss Endocrine Endocrine: Reports fatigue Hematologic/Lymphatic Hematologic/Lymphatic: Denies easy bleeding and Denies easy bruising Allergic/Immunologic Allergic/Immunologic: Denies wheezing Physical Exam 2 Vital Signs: Vital Signs: Last Vital Signs Temp 100.1 F 06/08/24 12:00 Pulse 91 06/08/24 12:00 Resp 16 06/08/24 12:00 BP 158/83 H 06/08/24 12:00 Pulse Ox 95 06/08/24 12:00 O2 Del Method Room Air 06/08/24 12:00 O2 Flow Rate 2 06/08/24 10:37 BMI result Body Mass Index 30.6 Appearing in no acute distress lung sounds are clear to auscultation heart regular rate rhythm, clear S1, S2 positive bowel sounds, abdomen is soft, nontender neuro patient is alert x3, no focal deficits Const: General: No confusion Orientation/consciousness: No confusion Neuro: General: No confusion Objective Data Active Medications Acetaminophen (Acetaminophen 325 Mg Tablet) 650 mg PO Q6H PRN PRN Reason: Pain, Mild 1-3,fever,headache Last Admin: 06/02/24 19:59 Dose: 650 mg Documented By: POPEYE Amlodipine Besylate (Amlodipine Besylate 10 Mg Tablet) 10 mg PO DAILY [facility]; Protocol Last Admin: 06/08/24 09:15 Dose: 10 mg Documented By: GEORGES Bupropion HCl (Bupropion Hcl Xl 300 Mg Tab.Er.24h) 300 mg PO DAILY [facility] Last Admin: 06/08/24 09:15 Dose: 300 mg Documented By: GEORGES Calcium Carbonate (Calcium Carbonate 750 Mg Tab.Chew) 750 mg PO Q4H PRN PRN Reason: Heartburn Clonidine HCl (Clonidine Hcl 0.1 Mg Tablet) 0.1 mg PO BID [facility]; Protocol Last Admin: 06/08/24 09:15 Dose: 0.1 mg Documented By: GEORGES Clonidine HCl (Clonidine Hcl 0.2 Mg Tablet) 0.2 mg PO BEDTIME [facility]; Protocol Last Admin: 06/07/24 20:58 Dose: 0.2 mg Documented By: GERRY Clotrimazole (Clotrimazole 1 % Cream 15 Gm Tube) 1 appl TOPICAL BID PRN; Protocol PRN Reason: vulvar itching Cyanocobalamin (Cyanocobalamin (Vitamin B-12) 100 Mcg Tablet) 100 mcg PO DAILY [facility] Last Admin: 06/08/24 09:15 Dose: 100 mcg Documented By: GEORGES Gabapentin (Gabapentin 600 Mg Tablet) 600 mg PO BID [facility] Last Admin: 06/08/24 09:15 Dose: 600 mg Documented By: GEORGES Heparin Sodium (Porcine) (Heparin Sodium,Porcine 5,000 Unit/Ml Vial) 5,000 unit INTRACATH TUTHSA@1645 [facility] Hydromorphone HCl (Hydromorphone Hcl 0.5 Mg/0.5 Ml Syringe) 0.5 mg IVPUSH Q6H PRN; Protocol PRN Reason: Pain, Severe (Pain Scale 7-10) Last Admin: 06/08/24 03:36 Dose: 0.5 mg Documented By: GERRY Hydroxyzine HCl (Hydroxyzine Hcl 50 Mg Tablet) 50 mg PO TID PRN PRN Reason: Anxiety Last Admin: 06/07/24 20:57 Dose: 50 mg Documented By: GERRY Acetaminophen ([facility]) 1,000 mg in 100 mls @ 400 mls/hr IV INTRAOP PRN PRN Reason: per intraop request by provider Acetaminophen ([facility]) 1,000 mg in 100 mls @ 400 mls/hr IV INTRAOP PRN PRN Reason: per intraop request by provider Lidocaine/Diphenhydr/Alum/Mg/Simeth (Mag&Al/Sim/Diphenhyd/Lidocaine 10 Ml Oral.Susp) 10 ml PO Q4H PRN; Protocol PRN Reason: thrush Last Admin: 06/06/24 13:29 Dose: 10 ml Documented By: MONALISA Magnesium Hydroxide (Milk Of Magnesia 30 Ml Oral.Susp) 30 ml PO DAILY PRN PRN Reason: Constipation Melatonin (Melatonin 3 Mg Tablet) 6 mg PO BEDTIME PRN PRN Reason: Insomnia Methadone HCl (Methadone Hcl 20 Mg/2 Ml Oral.Conc) 100 mg PO DAILY [facility] Last Admin: 06/08/24 09:15 Dose: 100 mg Documented By: GEORGES Co-signed By: DENISE Methadone HCl (Methadone Hcl 20 Mg/2 Ml Oral.Conc) 95 mg PO DAILY@1700 [facility] Last Admin: 06/07/24 17:25 Dose: 95 mg Documented By: GEORGES Co-signed By: JULITO Nicotine Polacrilex (Nicotine Polacrilex Lozenge 2 Mg Lozenge) 2 mg BUCCAL Q2H PRN PRN Reason: Nicotine Cravings Non-Formulary Medication (Lumateperone [Caplyta]) 42 mg PO DAILY [facility] Nystatin (Nystatin Oral Susp 500,000 Unit/5 Ml Oral.Susp) 500,000 unit PO DAILY PRN; Protocol PRN Reason: THROAT THRUSH Last Admin: 06/05/24 14:41 Dose: 500,000 unit Documented By: KAVITA Omeprazole (Omeprazole 20 Mg Capsule.Dr) 20 mg PO DAILY@0630 [facility] Last Admin: 06/08/24 05:53 Dose: 20 mg Documented By: EGRRY Ondansetron HCl (Ondansetron Hcl 4 Mg/2 Ml Vial) 4 mg IVPUSH Q8H PRN PRN Reason: Nausea and Vomiting Polyethylene Glycol (Polyethylene Glycol 3350 17 Gm Powd.Pack) 17 gm PO DAILY PRN PRN Reason: Constipation Quetiapine Fumarate (Quetiapine Fumarate 50 Mg Tablet) 50 mg PO TID PRN PRN Reason: Anxiety Last Admin: 06/07/24 20:57 Dose: 50 mg Documented By: GERRY Sodium Chloride (0.9 % Sodium Chloride Flush 3 Ml Syringe) 3 ml IVFLUSH QSHIFT [facility] Last Admin: 06/08/24 09:26 Dose: 3 ml Documented By: GEORGES Topiramate (Topiramate 100 Mg Tablet) 100 mg PO BID [facility] Last Admin: 06/08/24 09:15 Dose: 100 mg Documented By: GEORGES Trazodone HCl (Trazodone Hcl 100 Mg Tablet) 100 mg PO BEDTIME PRN PRN Reason: Insomnia Last Admin: 06/07/24 20:58 Dose: 100 mg Documented By: GERRY Warfarin Sodium (Warfarin Sodium 5 Mg Tablet) 5 mg PO DAILY@1800 [facility] Last Admin: 06/07/24 17:26 Dose: 5 mg Documented By: GEORGES Labs 06/02/24 09:22 06/03/24 08:05 Labs: Laboratory Results - last 24 hr 06/02/24 06/08/24 06:43 06:49 PT 15.4 H INR 1.3 H IgG Total 1535 IgA Total 555 H IgM 127 CHARLEY Interpretation SEE NOTE Assessment and Plan (1) Acute renal failure superimposed on chronic kidney disease: Status: Acute Plan 43 yo F with multiple medical problems who presents with edema and shortness of breath. Found to have GERRI + anasarca Cough and congestion CXR ordered Mucinex RPP GERRI on CKD likely due to underlying lupus nephrology on board, follow recs> s/p solu-medrol 1g daily x3 days; Biopsy done 06/07/24 , renal doppler neg for bebo dialysis per nephrology>wait on biopsy results for plan permacath placed today Vaginal yeast infection Fluconazole x1 Clotrimazole cream for a vulvar area as needed Transaminitis continue to monitor down-trending Anti-phospholipid syndrome with supratherapeutic INR INR as high 4.1, today 1.3 wardarin resumed 06/07/24 after biopsy at 5mg Normocytic anemia Likely secondary to renal disease History of lupus see #1 Chronic opiate dependence methadone HTN continue norvasc Mood continue home meds Full Code DVT pptx - coumadin Quality Stroke Does the patient have a stroke diagnosis?: No VTE Prior VTE?: Yes VTE Risk Level:: Medical - moderate - high VTE Device Contraindication: Treatment Not Indicated VTE Drug Contraindication: N/A - Med Ordered
[2024-06-08] MEDS: guaiFENesin LA 600 MG TAB.ER.12H PO ×2 (12:28→21:09)
[2024-06-08] MEDS: polyethylene glycoL 3350 17 GM POWD.PACK PO (12:31)
--- NOTE | 2024-06-08 12:56 | P.PNNP_ITS ---
Subjective Subjective Date of Service: 06/08/24 Interval history: Had renal biopsy; Going for Permcath this morning; Due HD tomorrow Physical Exam 2 Vital Signs: Vital Signs: Last Vital Signs Temp 100.1 F 06/08/24 12:00 Pulse 91 06/08/24 12:00 Resp 16 06/08/24 12:00 BP 158/83 H 06/08/24 12:00 Pulse Ox 95 06/08/24 12:00 O2 Del Method Room Air 06/08/24 12:00 O2 Flow Rate 2 06/08/24 10:37 BMI result Body Mass Index 30.6 Const: General: comfortable and no acute distress O rientation/consciousness: patient oriented x3 HEENT: Head: Yes normocephalic Mouth: Normal oral and palatal mucosa present Eyes: EOM: EOMs intact bilaterally Neck: Neck: Yes supple Resp: Auscultation: clear to auscultation bilaterally Cardio: Jugular venous distension: no JVD Rate: regular rate GI: Palpation (GI): Soft to palpation Auscultation: normal bowel sounds Neuro: General: patient oriented x3 and moves all extremities Objective Data Labs 06/02/24 09:22 06/03/24 08:05 Labs: Laboratory Results - last 24 hr 06/02/24 06/08/24 06:43 06:49 PT 15.4 H INR 1.3 H IgG Total 1535 IgA Total 555 H IgM 127 CHARLEY Interpretation SEE NOTE Microbiology Microbiology Results: Microbiology 05/29/24 19:56 Blood - Venous Blood Culture - Final No growth after 5 days. 05/29/24 19:56 Blood - Venous Blood Culture - Final Bacillus species 05/29/24 Unknown Urine clean catch - Clean Catch Midstream Urine Culture - Final Procedures Date of Service Date of Service: 06/08/24 Assessment & Plan Assessment and plan (1) Acute renal failure superimposed on chronic kidney disease: Status: Acute Plan GERRI superimposed on advanced CKD; ? ESRD ; For permcath this morning Doppler of renal arteries and veins neg; Was given pulse Methylprednisone 1 gm x 3 days Had renal Biopsy yesterday; HD TTS. Continued vol optimization on HD; Outpt HD spot NOT yet approved Progress Note: Quality Stroke Does the patient have a stroke diagnosis?: No
--- NOTE | 2024-06-08 13:22 | MHC.RECOVRN ---
Met with pt in [phone] to follow up and provide support.? Pt awake, alert, easily engages in conversation, sitting on bedside. Pt reports having a rough day yesterday with dialysis but has recovered. Education re: new to dialysis provided. Pt reports OUD well managed on current dose of methadone and no W/D sx reported/observed. Pt denies other concerns at this time.? T/W available as needed.
[2024-06-08 15:49] LABS: Adenovirus PCR Not Detected (Not Detect.); Bordetella parapertussis PCR Not Detected (Not Detect.); Bordetella pertussis PCR Not Detected (Not Detect.); Chlamydia pneumoniae PCR Not Detected (Not Detect.); Coronavirus 229E PCR Not Detected (Not Detect.); Coronavirus HKU1 PCR Not Detected (Not Detect.); Coronavirus NL63 PCR Not Detected (Not Detect.); Coronavirus OC43 PCR Detected (Not Detect.); Human metapneumovirus PCR Not Detected (Not Detect.); Influenza B PCR Not Detected (Not Detect.); Mycoplasma pneumoniae PCR Not Detected (Not Detect.); Parainfluenza 1 PCR Not Detected (Not Detect.); Parainfluenza 2 PCR Not Detected (Not Detect.); Parainfluenza 3 PCR Not Detected (Not Detect.); Parainfluenza 4 PCR Not Detected (Not Detect.); RSV PCR Not Detected (Not Detect.); Rhino/Enterovirus PCR Not Detected (Not Detect.)
[2024-06-08] MEDS: QUEtiapine Fumarate 50 MG TABLET PO ×2 (15:55→21:08)
[2024-06-08 15:56] LABS: SARS-CoV-2 PCR Not Detected (Not Detect.)
[2024-06-08 15:58] LABS: Influenza A PCR Detected (Not Detect.)
[2024-06-08] MEDS: methADONE HCl 20 MG/2 ML ORAL.CONC 95 MG PO (18:01)
[2024-06-08] MEDS: Warfarin Sodium 5 MG TABLET PO (18:01)
[2024-06-08] MEDS: Oseltamivir Phosphate 30 MG CAPSULE PO (18:02)
[2024-06-08 19:41] LABS: Anion Gap 20 (12-20); Blood Urea Nitrogen 94 mg/dL (9-16); Calcium 7.3 mg/dL (8.4-10.2); Carbon Dioxide 17 mmol/L (22-29); Chloride 107 mmol/L (96-108); Creatinine Clr Calc Pharmacy 15.5; Estimated Glomerular Filt Rate 8; Glucose Random 120 mg/dL (60-115); Potassium 5.5 mmol/L (3.3-5.1); Sodium 138 mmol/L (135-145)
[2024-06-08 19:43] LABS: B Type Natriuretic Peptide 2700 pg/mL (<100)
[2024-06-08] MEDS: cloNIDine HCL 0.2 MG TABLET PO (21:08)
[2024-06-08] MEDS: hydrOXYzine HCL 50 MG TABLET PO (21:09)
[2024-06-09] VITALS (8 sets, daily range): BP systolic 111–151; BP diastolic 68–87; PULSE 69–87; RESP 16–20; TEMP 36.8–37.4; O2SAT 94–96
[2024-06-09] MEDS: HYDROmorphone HCl 0.5 MG/0.5 ML SYRINGE IVPUSH ×4 (03:18→21:34)
[2024-06-09] MEDS: Omeprazole 20 MG CAPSULE.DR PO (06:09)
[2024-06-09] MEDS: Acetaminophen 325 MG TABLET 650 MG PO ×2 (06:11→17:35)
[2024-06-09] MEDS: methADONE HCl 20 MG/2 ML ORAL.CONC 100 MG PO (09:07)
[2024-06-09] MEDS: hydrOXYzine HCL 50 MG TABLET PO ×2 (09:09→21:33)
--- NOTE | 2024-06-09 10:05 | PC.NURSE ---
pt off floor in dialysis. morning meds late due to being off floor and receiving dialysis.
[2024-06-09 11:49] LABS: Hematocrit 29.6 % (37.0-47.0); Hemoglobin 9.6 g/dl (12.0-16.0); Mean Corpuscular HGB Conc 32.4 g/dl (31.0-35.0); Mean Corpuscular Hemoglobin 30.6 pg (27.0-33.0); Mean Corpuscular Volume 94.3 fL (80.0-98.0); Mean Platelet Volume 12.2 fL (9.4-12.3); NRBC Pct Auto 0.2 /100WBC (0.0-0.2); Platelet Count 197 X10*3/uL (160-400); Red Blood Count 3.14 X10*6/uL (4.20-5.50); Red Cell Distribution Width 18.9 % (11.0-16.0); White Blood Count 14.8 X10*3/uL (4.8-10.8)
[2024-06-09 11:56] LABS: INTERNATIONAL NORM RATIO 2.1 (0.9-1.1); Prothrombin Time 24.8 SEC (10.9-12.4)
[2024-06-09 12:21] LABS: Anion Gap 12 (12-20); Calcium 8.3 mg/dL (8.4-10.2); Carbon Dioxide 25 mmol/L (22-29); Chloride 104 mmol/L (96-108); Creatinine Clr Calc Pharmacy 24.5; Estimated Glomerular Filt Rate 14; Phosphorus 3.8 mg/dL (2.7-4.5); Sodium 137 mmol/L (135-145)
[2024-06-09 12:30] LABS: Vitamin D 25-OH Total 15.6 ng/mL (>30)
--- NOTE | 2024-06-09 12:54 | P.PNIM_ITS ---
Subjective Subjective Date of Service: 06/09/24 Interval History: seen and examined this morning follow up for flu a, esrd coughing Review of Systems Review of Systems: Yes all other systems are reviewed and are negative Constitutional Constitutional: Denies fever(s) Physical Exam 2 Vital Signs: Vital Signs: Last Vital Signs Temp 98.4 F 06/09/24 06:50 Pulse 81 06/09/24 06:50 Resp 20 06/09/24 06:50 BP 143/82 H 06/09/24 06:50 Pulse Ox 96 06/09/24 06:50 O2 Del Method Room Air 06/09/24 06:50 O2 Flow Rate 2 06/08/24 10:37 BMI result Body Mass Index 30.6 Const: General: alert and awake Orientation/consciousness: patient oriented x3 Chest: Other: permcath in place Resp: Other: course breath sounds b/l Effort & Inspection: normal respiratory effort, able to speak in complete sentences and no respiratory distress Cardio: Rate: regular rate GI: Palpation (GI): Soft to palpation Neuro: General: patient oriented x3 Extrem: Other: b/l leg edema Objective Data Active Medications Acetaminophen (Acetaminophen 325 Mg Tablet) 650 mg PO Q6H PRN PRN Reason: Pain, Mild 1-3,fever,headache Last Admin: 06/09/24 06:11 Dose: 650 mg Documented By: JUSTINO Albuterol Sulfate (Albuterol Sulfate (0.083%) 2.5 Mg/3 Ml Vial.Neb) 2.5 mg INHALE Q4H PRN PRN Reason: Shortness of Breath/Wheezing Amlodipine Besylate (Amlodipine Besylate 10 Mg Tablet) 10 mg PO DAILY [facility]; Protocol Last Admin: 06/08/24 09:15 Dose: 10 mg Documented By: GEORGES Bupropion HCl (Bupropion Hcl Xl 300 Mg Tab.Er.24h) 300 mg PO DAILY [facility] Last Admin: 06/08/24 09:15 Dose: 300 mg Documented By: GEORGES Calcium Carbonate (Calcium Carbonate 750 Mg Tab.Chew) 750 mg PO Q4H PRN PRN Reason: Heartburn Clonidine HCl (Clonidine Hcl 0.1 Mg Tablet) 0.1 mg PO BID [facility]; Protocol Last Admin: 06/08/24 21:08 Dose: 0.1 mg Documented By: JUSTINO Clonidine HCl (Clonidine Hcl 0.2 Mg Tablet) 0.2 mg PO BEDTIME [facility]; Protocol Last Admin: 06/08/24 21:08 Dose: 0.2 mg Documented By: JUSTINO Clotrimazole (Clotrimazole 1 % Cream 15 Gm Tube) 1 appl TOPICAL BID PRN; Protocol PRN Reason: vulvar itching Cyanocobalamin (Cyanocobalamin (Vitamin B-12) 100 Mcg Tablet) 100 mcg PO DAILY [facility] Last Admin: 06/08/24 09:15 Dose: 100 mcg Documented By: GEORGES Gabapentin (Gabapentin 600 Mg Tablet) 600 mg PO BID [facility] Last Admin: 06/08/24 21:09 Dose: 600 mg Documented By: JUSTINO Guaifenesin (Guaifenesin La 600 Mg Tab.Er.12h) 600 mg PO BID [facility] Last Admin: 06/08/24 21:09 Dose: 600 mg Documented By: JUSTINO Guaifenesin (Guaifenesin 100 Mg/5 Ml 5 Ml Liquid) 5 ml PO Q6H PRN PRN Reason: Cough Heparin Sodium (Porcine) (Heparin Sodium,Porcine 5,000 Unit/Ml Vial) 5,000 unit INTRACATH [facility]@1645 [facility] Hydromorphone HCl (Hydromorphone Hcl 0.5 Mg/0.5 Ml Syringe) 0.5 mg IVPUSH Q6H PRN; Protocol PRN Reason: Pain, Severe (Pain Scale 7-10) Last Admin: 06/09/24 09:09 Dose: 0.5 mg Documented By: CORBIN Hydroxyzine HCl (Hydroxyzine Hcl 50 Mg Tablet) 50 mg PO TID PRN PRN Reason: Anxiety Last Admin: 06/09/24 09:09 Dose: 50 mg Documented By: CORBIN Acetaminophen (Ofirmev) 1,000 mg in 100 mls @ 400 mls/hr IV INTRAOP PRN PRN Reason: per intraop request by provider Lidocaine/Diphenhydr/Alum/Mg/Simeth (Mag&Al/Sim/Diphenhyd/Lidocaine 10 Ml Oral.Susp) 10 ml PO Q4H PRN; Protocol PRN Reason: thrush Last Admin: 06/06/24 13:29 Dose: 10 ml Documented By: MONALISA Magnesium Hydroxide (Milk Of Magnesia 30 Ml Oral.Susp) 30 ml PO DAILY PRN PRN Reason: Constipation Melatonin (Melatonin 3 Mg Tablet) 6 mg PO BEDTIME PRN PRN Reason: Insomnia Methadone HCl (Methadone Hcl 20 Mg/2 Ml Oral.Conc) 100 mg PO DAILY [facility] Last Admin: 06/09/24 09:07 Dose: 100 mg Documented By: CORBIN Co-signed By: MONICA Methadone HCl (Methadone Hcl 20 Mg/2 Ml Oral.Conc) 95 mg PO DAILY@1700 [facility] Last Admin: 06/08/24 18:01 Dose: 95 mg Documented By: RUBIO Co-signed By: GEORGES Nicotine Polacrilex (Nicotine Polacrilex Lozenge 2 Mg Lozenge) 2 mg BUCCAL Q2H PRN PRN Reason: Nicotine Cravings Non-Formulary Medication (Lumateperone [Caplyta]) 42 mg PO DAILY [facility] Nystatin (Nystatin Oral Susp 500,000 Unit/5 Ml Oral.Susp) 500,000 unit PO DAILY PRN; Protocol PRN Reason: THROAT THRUSH Last Admin: 06/05/24 14:41 Dose: 500,000 unit Documented By: KAVITA Omeprazole (Omeprazole 20 Mg Capsule.Dr) 20 mg PO DAILY@0630 [facility] Last Admin: 06/09/24 06:09 Dose: 20 mg Documented By: JUSTINO Ondansetron HCl (Ondansetron Hcl 4 Mg/2 Ml Vial) 4 mg IVPUSH Q8H PRN PRN Reason: Nausea and Vomiting Oseltamivir Phosphate (Oseltamivir Phosphate 30 Mg Capsule) 30 mg PO Q24H [facility] Stop: 06/17/24 17:01 Last Admin: 06/08/24 18:02 Dose: 30 mg Documented By: RUBIO Polyethylene Glycol (Polyethylene Glycol 3350 17 Gm Powd.Pack) 17 gm PO DAILY PRN PRN Reason: Constipation Last Admin: 06/08/24 12:31 Dose: 17 gm Documented By: GEORGES Quetiapine Fumarate (Quetiapine Fumarate 50 Mg Tablet) 50 mg PO TID PRN PRN Reason: Anxiety Last Admin: 06/08/24 21:08 Dose: 50 mg Documented By: JUSTINO Sodium Chloride (0.9 % Sodium Chloride Flush 3 Ml Syringe) 3 ml IVFLUSH QSHIFT [facility] Last Admin: 06/08/24 21:09 Dose: 3 ml Documented By: JUSTINO Topiramate (Topiramate 100 Mg Tablet) 100 mg PO BID [facility] Last Admin: 06/08/24 21:09 Dose: 100 mg Documented By: JUSTINO Trazodone HCl (Trazodone Hcl 100 Mg Tablet) 100 mg PO BEDTIME PRN PRN Reason: Insomnia Last Admin: 06/07/24 20:58 Dose: 100 mg Documented By: GERRY Warfarin Sodium (Warfarin Sodium 5 Mg Tablet) 5 mg PO DAILY@1800 [facility] Last Admin: 06/08/24 18:01 Dose: 5 mg Documented By: RUBIO Labs 06/09/24 11:40 06/09/24 11:40 Labs: Laboratory Results - last 24 hr 06/08/24 06/08/24 06/09/24 14:00 19:04 11:40 MCV Cancelled 94.3 MCH Cancelled 30.6 MCHC Cancelled 32.4 RDW Cancelled 18.9 H Plt Count Cancelled 197 D MPV Cancelled 12.2 Absolute Nucleated RBC Cancelled 0.030 H Nucleated RBC % (auto) Cancelled 0.2 PT 24.8 H D INR 2.1 H Anion Gap 20 12 Estim Creat Clear Calc 15.5 24.5 Estimated GFR 8 14 Random Glucose 120 H Calcium 7.3 L 8.3 L D Phosphorus 3.8 B-Natriuretic Peptide 2700 H 25-OH Vitamin D Total 15.6 L PTH Intact 517.0 H Respiratory Panel Cabrera See Note Adenovirus (Rapid PCR) Not Detected B.pert (TEM-PCR) Not Detected B.parapertussis DNA PCR Not Detected C. pneumoniae DNA (PCR) Not Detected Coronavirus OC43 (PCR) Detected A Coronavirus HKU1 (PCR) Not Detected Coronavirus 229E (PCR) Not Detected Coronavirus NL63 (PCR) Not Detected Human Metapneumovir PCR Not Detected Influenza A (RT-PCR) Detected A Influenza B (RT-PCR) Not Detected M. pneumoniae (PCR) Not Detected Parainfluenza 1 (PCR) Not Detected Parainfluenza 2 (PCR) Not Detected Parainfluenza 3 (PCR) Not Detected Parainfluenza 4 (PCR) Not Detected RSV (PCR) Not Detected Entero/Rhino (PCR) Not Detected SARS-CoV-2 RNA (RT-PCR) Not Detected Assessment and Plan (1) Anasarca: Status: Acute Plan 43 yo F with multiple medical problems who presents with edema and shortness of breath. Found to have GERRI + anasarca URI due to influenza A and coronavirus OC43 no pneumonia on CXR Mucinex, supportive care GERRI on CKD possibly due to underlying lupus nephrology on board, follow recs> s/p solu-medrol 1g daily x3 days; Biopsy done 06/07/24 , renal doppler neg for bebo dialysis per nephrology>wait on biopsy results for plan permacath placed 06/08 awaiting outpatient HD chair still fluid overloaded, abd US to eval for concurrent cirrhosis pending Vaginal yeast infection Fluconazole x1 Clotrimazole cream for a vulvar area as needed Transaminitis down-trending Anti-phospholipid syndrome INR 2.1 wardarin resumed 06/07/24 after biopsy at 5mg Normocytic anemia Likely secondary to renal disease H/H stable History of lupus see #1 Chronic opiate dependence methadone HTN continue norvasc, clonidine Mood continue home meds Full Code DVT pptx - coumadin Requires ongoing inpatient stay for close monitoring of renal function and hemodialysis Quality Stroke Does the patient have a stroke diagnosis?: No VTE Prior VTE?: Yes VTE Risk Level:: Medical - moderate - high VTE Device Contraindication: Treatment Not Indicated VTE Drug Contraindication: N/A - Med Ordered
[2024-06-09] MEDS: amLODIPine Besylate 10 MG TABLET PO (13:36)
[2024-06-09] MEDS: Topiramate 100 MG TABLET PO ×2 (13:37→21:34)
[2024-06-09] MEDS: cloNIDine HCL 0.1 MG TABLET PO ×2 (13:37→21:32)
[2024-06-09] MEDS: guaiFENesin LA 600 MG TAB.ER.12H PO ×2 (13:37→21:34)
[2024-06-09] MEDS: Gabapentin 600 MG TABLET PO ×2 (13:37→21:34)
[2024-06-09] MEDS: buPROPion HCl XL 300 MG TAB.ER.24H PO (13:37)
[2024-06-09] MEDS: Cyanocobalamin (Vitamin B-12) 100 MCG TABLET PO (13:37)
[2024-06-09] MEDS: 0.9 % Sodium Chloride Flush 3 ML SYRINGE IVFLUSH ×2 (13:38→15:38)
[2024-06-09] MEDS: guaiFENesin 100 MG/5 ML 5 ML LIQUID PO ×2 (13:44→21:34)
--- NOTE | 2024-06-09 15:09 | HO.WOUND ---
Wound Consult: Initial 43yr old?female admitted to [facility] on 05/30/24 - See progress notes and H&P for detailed history.? Wound consult placed for Left Leg wound previously seen for Right Lower Leg Wound.? Patient agreeable to assessment and photo documentation.? Patient is noted for various old scar tissue lesions. She reports the wound started out as a scab but as the fluid increased in her legs the wound progressed. It appears the blister is a result of excess fluid however she is noted for several scar throughout both lower legs. Left Lateral Lower Leg Etiology: ?Blister Measurements: 1cm x 1cm Wound Bed: serous fluid filled blister Drainage / Odor: clear serous drainage noted on dressing Edges: attached Rekha wound: ? intact - edema noted - no s/s of active infection noted at this time - No Induration, Fluctuance or Warmth noted Pain: denies pain Goals of Treatment: ?Foam dressing for moisture management maycover with xeroform to protect when foam removed. Recommendations: 1. Left Lower Leg - Elevate on pillows to aid in fluid management. Cleanse with NS moist gauze, pat dry. Apply skin prep to periwound, cover wound bed with xeroform, cover with foam dressing. Change every other day. Re-consult wound care Nurse for wound deterioration or wound changes.
[2024-06-09] MEDS: ondansetron HCL 4 MG/2 ML VIAL IVPUSH (15:34)
[2024-06-09] MEDS: Oseltamivir Phosphate 30 MG CAPSULE PO (17:35)
[2024-06-09] MEDS: methADONE HCl 20 MG/2 ML ORAL.CONC 95 MG PO (17:36)
[2024-06-09] MEDS: Warfarin Sodium 5 MG TABLET PO (17:36)
--- NOTE | 2024-06-09 19:04 | PM.PNNEP ---
Subjective Subjective Date of Service: 06/09/24 Interval history: seen and examined this morning. All recent data reviewed Physical Exam Vital Signs: Vital Signs: Last Vital Signs Temp 98.3 F 06/09/24 18:31 Pulse 78 06/09/24 18:31 Resp 16 06/09/24 18:31 BP 143/82 H 06/09/24 18:31 Pulse Ox 95 06/09/24 15:40 O2 Del Method Room Air 06/09/24 15:40 O2 Flow Rate 2 06/08/24 10:37 BMI result Body Mass Index 30.6 Const: General: no acute distress Orientation/consciousness: patient oriented x3 Eyes: EOM: EOMs intact bilaterally Resp: Auscultation: diminished lung sounds Cardio: Rate: regular rate GI: Palpation (GI): Soft to palpation Neuro: General: patient oriented x3 Objective Data Labs 06/09/24 11:40 06/09/24 11:40 Labs: Laboratory Results - last 24 hr 06/08/24 06/09/24 19:04 11:40 WBC Cancelled 14.8 H RBC Cancelled 3.14 L Hgb Cancelled 9.6 L Hct Cancelled 29.6 L MCV Cancelled 94.3 MCH Cancelled 30.6 MCHC Cancelled 32.4 RDW Cancelled 18.9 H Plt Count Cancelled 197 D MPV Cancelled 12.2 Absolute Nucleated RBC Cancelled 0.030 H Nucleated RBC % (auto) Cancelled 0.2 PT 24.8 H D INR 2.1 H Sodium 138 137 Potassium 5.5 H D 4.0 D Chloride 107 104 Carbon Dioxide 17 L 25 Anion Gap 20 12 BUN 94 H Creatinine 5.46 H* 3.46 H Estim Creat Clear Calc 15.5 24.5 Estimated GFR 8 14 Random Glucose 120 H Calcium 7.3 L 8.3 L D Phosphorus 3.8 B-Natriuretic Peptide 2700 H 25-OH Vitamin D Total 15.6 L PTH Intact 517.0 H Microbiology Microbiology Results: Microbiology 05/29/24 19:56 Blood - Venous Blood Culture - Final No growth after 5 days. 05/29/24 19:56 Blood - Venous Blood Culture - Final Bacillus species 05/29/24 Unknown Urine clean catch - Clean Catch Midstream Urine Culture - Final Procedures Date of Service Date of Service: 06/09/24 Assessment & Plan Assessment and plan (1) Acute renal failure superimposed on chronic kidney disease: Status: Acute (2) Secondary hyperparathyroidism (of renal origin): Status: Acute Plan GERRI superimposed on advanced CKD; Likely ESRD ; S/P permcath. Due HD Doppler of renal arteries and veins neg; Was given pulse Methylprednisone 1 gm x 3 days- No further pred Had renal Biopsy ; HD TTS. Continued vol optimization on HD; Vitamin D 00716 U once a week Calcitriol 0.25 mcg TTS; Outpt HD spot NOT yet approved( Did try in [facility]) Progress Note: Quality Stroke Does the patient have a stroke diagnosis?: No
[2024-06-09] MEDS: cloNIDine HCL 0.2 MG TABLET PO (21:33)
[2024-06-09] MEDS: QUEtiapine Fumarate 50 MG TABLET PO (21:34)
[2024-06-10] VITALS (7 sets, daily range): BP systolic 114–142; BP diastolic 69–83; PULSE 63–84; RESP 16–20; TEMP 36.2–37.1; O2SAT 93–98
[2024-06-10] MEDS: HYDROmorphone HCl 0.5 MG/0.5 ML SYRINGE IVPUSH (03:35)
[2024-06-10] MEDS: Omeprazole 20 MG CAPSULE.DR PO (03:37)
[2024-06-10] MEDS: guaiFENesin 100 MG/5 ML 5 ML LIQUID PO ×2 (03:38→18:16)
[2024-06-10 07:07] LABS: INTERNATIONAL NORM RATIO 3.5 (0.9-1.1); Prothrombin Time 41.4 SEC (10.9-12.4)
[2024-06-10] MEDS: 0.9 % Sodium Chloride Flush 3 ML SYRINGE IVFLUSH ×3 (08:54→20:25)
[2024-06-10] MEDS: Mag&Al/Sim/Diphenhyd/Lidocaine 10 ML ORAL.SUSP PO ×2 (08:55→20:25)
[2024-06-10] MEDS: methADONE HCl 20 MG/2 ML ORAL.CONC 100 MG PO (08:55)
[2024-06-10] MEDS: buPROPion HCl XL 300 MG TAB.ER.24H PO (08:56)
[2024-06-10] MEDS: Acetaminophen 325 MG TABLET 650 MG PO ×2 (08:56→23:19)
[2024-06-10] MEDS: cloNIDine HCL 0.1 MG TABLET PO ×2 (08:56→20:25)
[2024-06-10] MEDS: QUEtiapine Fumarate 50 MG TABLET PO ×3 (08:56→20:26)
[2024-06-10] MEDS: Gabapentin 600 MG TABLET PO ×2 (08:56→20:25)
[2024-06-10] MEDS: Cyanocobalamin (Vitamin B-12) 100 MCG TABLET PO (08:56)
[2024-06-10] MEDS: hydrOXYzine HCL 50 MG TABLET PO ×2 (08:56→20:26)
[2024-06-10] MEDS: amLODIPine Besylate 10 MG TABLET PO (08:56)
[2024-06-10] MEDS: guaiFENesin LA 600 MG TAB.ER.12H PO ×2 (08:56→20:26)
[2024-06-10] MEDS: Topiramate 100 MG TABLET PO ×2 (08:56→20:25)
[2024-06-10] MEDS: polyethylene glycoL 3350 17 GM POWD.PACK PO (08:59)
--- NOTE | 2024-06-10 10:26 | MHC.CM.PN ---
Per ROUNDS discussion, Patient is not yet medically cleared for dc (awaiting community HD slot and needs PT Eval); PT Eval will assist with disposition and CM will continue to follow.
--- NOTE | 2024-06-10 13:07 | HO.PM.IMPN ---
Subjective Subjective Date of Service: 06/10/24 Interval History: seen and examined this morning follow up for esrd, influenza a ongoing cough Review of Systems Review of Systems: Yes all other systems are reviewed and are negative Constitutional Constitutional: Denies chills and Denies fever(s) Respiratory Respiratory: Reports cough Physical Exam Vital Signs: Vital Signs: Last Vital Signs Temp 97.2 F 06/10/24 11:32 Pulse 63 06/10/24 11:32 Resp 18 06/10/24 11:32 BP 120/69 06/10/24 11:32 Pulse Ox 95 06/10/24 11:32 O2 Del Method Room Air 06/10/24 11:32 O2 Flow Rate 2 06/08/24 10:37 BMI result Body Mass Index 30.6 Const: General: alert and awake Orientation/consciousness: patient oriented x3 Chest: Other: permcath in place Resp: Other: course breath sounds b/l Effort & Inspection: normal respiratory effort, able to speak in complete sentences and no respiratory distress Cardio: Rate: regular rate GI: Palpation (GI): Soft to palpation Neuro: General: patient oriented x3 Extrem: Other: b/l leg edema Objective Data Active Medications Acetaminophen (Acetaminophen 325 Mg Tablet) 650 mg PO Q6H PRN PRN Reason: Pain, Mild 1-3,fever,headache Last Admin: 06/10/24 08:56 Dose: 650 mg Documented By: CORBIN Albuterol Sulfate (Albuterol Sulfate (0.083%) 2.5 Mg/3 Ml Vial.Neb) 2.5 mg INHALE Q4H PRN PRN Reason: Shortness of Breath/Wheezing Amlodipine Besylate (Amlodipine Besylate 10 Mg Tablet) 10 mg PO DAILY [facility]; Protocol Last Admin: 06/10/24 08:56 Dose: 10 mg Documented By: CORBIN Bupropion HCl (Bupropion Hcl Xl 300 Mg Tab.Er.24h) 300 mg PO DAILY [facility] Last Admin: 06/10/24 08:56 Dose: 300 mg Documented By: CORBIN Clonidine HCl (Clonidine Hcl 0.1 Mg Tablet) 0.1 mg PO BID [facility]; Protocol Last Admin: 06/10/24 08:56 Dose: 0.1 mg Documented By: CORBIN Clonidine HCl (Clonidine Hcl 0.2 Mg Tablet) 0.2 mg PO BEDTIME [facility]; Protocol Last Admin: 06/09/24 21:33 Dose: 0.2 mg Documented By: DOROTHY Clotrimazole (Clotrimazole 1 % Cream 15 Gm Tube) 1 appl TOPICAL BID PRN; Protocol PRN Reason: vulvar itching Cyanocobalamin (Cyanocobalamin (Vitamin B-12) 100 Mcg Tablet) 100 mcg PO DAILY [facility] Last Admin: 06/10/24 08:56 Dose: 100 mcg Documented By: CORBIN Docusate Sodium (Docusate Sodium 100 Mg Capsule) 100 mg PO BEDTIME [facility] Gabapentin (Gabapentin 600 Mg Tablet) 600 mg PO BID [facility] Last Admin: 06/10/24 08:56 Dose: 600 mg Documented By: CORBIN Guaifenesin (Guaifenesin La 600 Mg Tab.Er.12h) 600 mg PO BID [facility] Last Admin: 06/10/24 08:56 Dose: 600 mg Documented By: CORBIN Guaifenesin (Guaifenesin 100 Mg/5 Ml 5 Ml Liquid) 5 ml PO Q6H PRN PRN Reason: Cough Last Admin: 06/10/24 03:38 Dose: 5 ml Documented By: DOROTHY Heparin Sodium (Porcine) (Heparin Sodium,Porcine 5,000 Unit/Ml Vial) 5,000 unit INTRACATH [facility]@4205 [facility] Last Admin: 06/09/24 17:37 Dose: Not Given Documented By: SESAR Non-Admin Reason: dialysis med Hydromorphone HCl (Hydromorphone Hcl 0.5 Mg/0.5 Ml Syringe) 0.25 mg IVPUSH Q6H PRN; Protocol PRN Reason: Pain, Severe (Pain Scale 7-10) Hydroxyzine HCl (Hydroxyzine Hcl 50 Mg Tablet) 50 mg PO TID PRN PRN Reason: Anxiety Last Admin: 06/10/24 08:56 Dose: 50 mg Documented By: CORBIN Lidocaine/Diphenhydr/Alum/Mg/Simeth (Mag&Al/Sim/Diphenhyd/Lidocaine 10 Ml Oral.Susp) 10 ml PO Q4H PRN; Protocol PRN Reason: thrush Last Admin: 06/10/24 08:55 Dose: 10 ml Documented By: CORBIN Magnesium Hydroxide (Milk Of Magnesia 30 Ml Oral.Susp) 30 ml PO DAILY PRN PRN Reason: Constipation Melatonin (Melatonin 3 Mg Tablet) 6 mg PO BEDTIME PRN PRN Reason: Insomnia Methadone HCl (Methadone Hcl 20 Mg/2 Ml Oral.Conc) 100 mg PO DAILY [facility] Last Admin: 06/10/24 08:55 Dose: 100 mg Documented By: CORBIN Co-signed By: JANIE Methadone HCl (Methadone Hcl 20 Mg/2 Ml Oral.Conc) 95 mg PO DAILY@1700 [facility] Last Admin: 06/09/24 17:36 Dose: 95 mg Documented By: SESAR Co-signed By: JANIE Nicotine Polacrilex (Nicotine Polacrilex Lozenge 2 Mg Lozenge) 2 mg BUCCAL Q2H PRN PRN Reason: Nicotine Cravings Non-Formulary Medication (Lumateperone [Caplyta]) 42 mg PO DAILY [facility] Nystatin (Nystatin Oral Susp 500,000 Unit/5 Ml Oral.Susp) 500,000 unit PO DAILY PRN; Protocol PRN Reason: THROAT THRUSH Last Admin: 06/05/24 14:41 Dose: 500,000 unit Documented By: KAVITA Omeprazole (Omeprazole 20 Mg Capsule.Dr) 20 mg PO DAILY@0630 [facility] Last Admin: 06/10/24 03:37 Dose: 20 mg Documented By: DOROTHY Ondansetron HCl (Ondansetron Hcl 4 Mg/2 Ml Vial) 4 mg IVPUSH Q8H PRN PRN Reason: Nausea and Vomiting Last Admin: 06/09/24 15:34 Dose: 4 mg Documented By: SESAR Oseltamivir Phosphate (Oseltamivir Phosphate 30 Mg Capsule) 30 mg PO Q24H [facility] Stop: 06/17/24 17:01 Last Admin: 06/09/24 17:35 Dose: 30 mg Documented By: SESAR Polyethylene Glycol (Polyethylene Glycol 3350 17 Gm Powd.Pack) 17 gm PO DAILY PRN PRN Reason: Constipation Last Admin: 06/10/24 08:59 Dose: 17 gm Documented By: CORBIN Quetiapine Fumarate (Quetiapine Fumarate 50 Mg Tablet) 50 mg PO TID PRN PRN Reason: Anxiety Last Admin: 06/10/24 08:56 Dose: 50 mg Documented By: CORBIN Sodium Chloride (0.9 % Sodium Chloride Flush 3 Ml Syringe) 3 ml IVFLUSH QSHIFT [facility] Last Admin: 06/10/24 08:54 Dose: 3 ml Documented By: CORBIN Topiramate (Topiramate 100 Mg Tablet) 100 mg PO BID [facility] Last Admin: 06/10/24 08:56 Dose: 100 mg Documented By: CORBIN Trazodone HCl (Trazodone Hcl 100 Mg Tablet) 100 mg PO BEDTIME PRN PRN Reason: Insomnia Last Admin: 06/07/24 20:58 Dose: 100 mg Documented By: GERRY Warfarin Sodium (Warfarin Sodium 5 Mg Tablet) 5 mg PO DAILY@1800 [facility] Last Admin: 06/09/24 17:36 Dose: 5 mg Documented By: FOSTEKR Labs 06/09/24 11:40 06/09/24 11:40 Labs: Laboratory Results - last 24 hr 06/10/24 06:45 PT 41.4 H D INR 3.5 H Assessment and Plan (1) Secondary hyperparathyroidism (of renal origin): Status: Acute (2) Anasarca: Status: Acute Plan 43 yo F with multiple medical problems who presents with edema and shortness of breath. Found to have GERRI + anasarca URI due to influenza A and coronavirus OC43 no pneumonia on CXR Mucinex, supportive care tamiflu GERRI on CKD probable esrd. nephrology on board, follow recs> s/p solu-medrol 1g daily x3 days; Biopsy done 06/07/24 , renal doppler neg for bebo dialysis per nephrology permacath placed 06/08 awaiting outpatient HD chair still fluid overloaded, abd US consistent with concurrent cirrhosis - outpatient GI follow up Vaginal yeast infection Fluconazole x1 Clotrimazole cream for a vulvar area as needed bacilius bacteremia not clinically significant per ID, does not need treatment Transaminitis down-trending Anti-phospholipid syndrome INR 3.5 today, will hold coumadin and re-assess in am follow INR coumadin Normocytic anemia Likely secondary to renal disease H/H stable History of lupus see #1 Chronic opiate dependence methadone HTN continue norvasc, clonidine Mood continue home meds Full Code DVT pptx - coumadin Requires ongoing inpatient stay for close monitoring of renal function and hemodialysis Quality Stroke Does the patient have a stroke diagnosis?: No VTE Prior VTE?: Yes VTE Risk Level:: Medical - moderate - high VTE Device Contraindication: Treatment Not Indicated VTE Drug Contraindication: N/A - Med Ordered
[2024-06-10] MEDS: Oseltamivir Phosphate 30 MG CAPSULE PO (16:36)
[2024-06-10] MEDS: Ergocalciferol (Vitamin D2) 1,250 MCG CAPSULE 1250 MCG PO (16:36)
[2024-06-10] MEDS: HYDROmorphone HCl 0.5 MG/0.5 ML SYRINGE 0.25 MG IVPUSH ×2 (16:36→23:20)
[2024-06-10] MEDS: methADONE HCl 20 MG/2 ML ORAL.CONC 95 MG PO (16:37)
[2024-06-10] MEDS: cloNIDine HCL 0.2 MG TABLET PO (20:25)
[2024-06-10] MEDS: Melatonin 3 MG TABLET 6 MG PO (20:26)
[2024-06-10] MEDS: Docusate Sodium 100 MG CAPSULE PO (20:26)
--- NOTE | 2024-06-10 21:12 | PM.PNNEP ---
Subjective Subjective Date of Service: 06/10/24 Interval history: seen and examined this morning. All recent data reviewed. Due HD tomorrow Physical Exam Vital Signs: Vital Signs: Last Vital Signs Temp 98.3 F 06/10/24 19:33 Pulse 73 06/10/24 19:33 Resp 18 06/10/24 19:33 BP 137/79 06/10/24 19:33 Pulse Ox 94 06/10/24 19:33 O2 Del Method Room Air 06/10/24 19:33 O2 Flow Rate 2 06/08/24 10:37 BMI result Body Mass Index 30.6 Const: General: comfortable and no acute distress Orientation/consciousness: patient oriented x3 HEENT: Head: Yes normocephalic Mouth: Normal oral and palatal mucosa present Eyes: EOM: EOMs intact bilaterally Resp: Auscultation: clear to auscultation bilaterally Cardio: Jugular venous distension: no JVD Rate: regular rate GI: Palpation (GI): Soft to palpation Auscultation: normal bowel sounds Neuro: General: patient oriented x3 and moves all extremities Objective Data Labs 06/09/24 11:40 06/09/24 11:40 Labs: Laboratory Results - last 24 hr 06/10/24 06:45 PT 41.4 H D INR 3.5 H Microbiology Microbiology Results: Microbiology 05/29/24 19:56 Blood - Venous Blood Culture - Final No growth after 5 days. 05/29/24 19:56 Blood - Venous Blood Culture - Final Bacillus species 05/29/24 Unknown Urine clean catch - Clean Catch Midstream Urine Culture - Final Procedures Date of Service Date of Service: 06/10/24 Assessment & Plan Assessment and plan (1) End stage renal disease on dialysis: Status: Acute (2) Secondary hyperparathyroidism (of renal origin): Status: Acute Plan GERRI superimposed on advanced CKD; Likely ESRD ; S/P permcath. Due HD tomorrow Doppler of renal arteries and veins neg; Was given pulse Methylprednisone 1 gm x 3 days- No further pred Had renal Biopsy ; HD TTS. Continued vol optimization on HD; Vitamin D 77123 U once a week Calcitriol 0.25 mcg TTS; Outpt HD spot NOT yet approved( Did try in [facility])( Got to know @ 6 PM that there may be a chair in [place]- needs to confirm after weekend) Progress Note: Quality Stroke Does the patient have a stroke diagnosis?: No
[2024-06-11] VITALS (7 sets, daily range): BP systolic 115–167; BP diastolic 70–93; PULSE 60–95; RESP 16–18; TEMP 36.1–37.1; O2SAT 94–99
[2024-06-11] MEDS: guaiFENesin 100 MG/5 ML 5 ML LIQUID PO ×2 (04:11→13:20)
[2024-06-11] MEDS: HYDROmorphone HCl 0.5 MG/0.5 ML SYRINGE 0.25 MG IVPUSH ×3 (06:25→21:23)
[2024-06-11] MEDS: Acetaminophen 325 MG TABLET 650 MG PO ×2 (06:25→21:23)
[2024-06-11] MEDS: Omeprazole 20 MG CAPSULE.DR PO (06:25)
[2024-06-11] MEDS: 0.9 % Sodium Chloride Flush 3 ML SYRINGE IVFLUSH ×3 (07:25→21:22)
[2024-06-11] MEDS: guaiFENesin LA 600 MG TAB.ER.12H PO ×2 (07:26→21:24)
[2024-06-11] MEDS: cloNIDine HCL 0.1 MG TABLET PO ×2 (07:26→21:23)
[2024-06-11] MEDS: amLODIPine Besylate 10 MG TABLET PO (07:26)
[2024-06-11] MEDS: Gabapentin 600 MG TABLET PO ×2 (07:26→21:24)
[2024-06-11] MEDS: Cyanocobalamin (Vitamin B-12) 100 MCG TABLET PO (07:26)
[2024-06-11] MEDS: Topiramate 100 MG TABLET PO ×2 (07:26→21:24)
[2024-06-11] MEDS: buPROPion HCl XL 300 MG TAB.ER.24H PO (07:27)
[2024-06-11] MEDS: methADONE HCl 20 MG/2 ML ORAL.CONC 100 MG PO (07:27)
[2024-06-11 07:29] LABS: Prothrombin Time 47.1 SEC (10.9-12.4)
[2024-06-11] MEDS: QUEtiapine Fumarate 50 MG TABLET PO ×3 (07:31→21:24)
[2024-06-11] MEDS: polyethylene glycoL 3350 17 GM POWD.PACK PO (07:31)
[2024-06-11 07:59] LABS: Hematocrit 27.3 % (37.0-47.0); Hemoglobin 8.8 g/dl (12.0-16.0); Mean Corpuscular HGB Conc 32.2 g/dl (31.0-35.0); Mean Corpuscular Hemoglobin 30.8 pg (27.0-33.0); Mean Corpuscular Volume 95.5 fL (80.0-98.0); Mean Platelet Volume 11.6 fL (9.4-12.3); Platelet Count 191 X10*3/uL (160-400); Red Blood Count 2.86 X10*6/uL (4.20-5.50); Red Cell Distribution Width 19.1 % (11.0-16.0); White Blood Count 11.1 X10*3/uL (4.8-10.8)
[2024-06-11 09:21] LABS: Anion Gap 15 (12-20); Blood Urea Nitrogen 71 mg/dL (9-16); Carbon Dioxide 21 mmol/L (22-29); Chloride 104 mmol/L (96-108); Creatinine Clr Calc Pharmacy 15.9; Estimated Glomerular Filt Rate 9; Glucose Random 133 mg/dL (60-115); Potassium 5.3 mmol/L (3.3-5.1); Sodium 135 mmol/L (135-145)
[2024-06-11] MEDS: calcitrioL 0.25 MCG CAPSULE PO (13:15)
[2024-06-11] MEDS: ondansetron HCL 4 MG/2 ML VIAL IVPUSH (15:19)
--- NOTE | 2024-06-11 16:27 | P.PNIM_ITS ---
Subjective Subjective Date of Service: 06/11/24 Interval History: seen and examined this morning follow up for esrd, influenza still coughing, but breathing improving slowly Review of Systems Review of Systems: Yes all other systems are reviewed and are negative Constitutional Constitutional: Denies chills and Denies fever(s) Cardiovascular Cardiovascular: Denies chest pain and Denies dyspnea Respiratory Respiratory: Denies dyspnea Gastrointestinal Gastrointestinal: Denies abdominal pain Physical Exam 2 Vital Signs: Vital Signs: Last Vital Signs Temp 97.8 F 06/11/24 11:30 Pulse 90 06/11/24 11:30 Resp 18 06/11/24 11:30 BP 115/73 06/11/24 11:30 Pulse Ox 94 06/11/24 11:30 O2 Del Method Room Air 06/11/24 11:30 O2 Flow Rate 2 06/08/24 10:37 BMI result Body Mass Index 30.6 Const: General: no acute distress, alert and awake Nutritional Appearance: average body habitus Orientation/consciousness: patient oriented x3 Chest: Other: permcath in place Resp: Effort & Inspection: normal respiratory effort, able to speak in complete sentences, no respiratory distress and no use of accessory muscles Cardio: Rate: regular rate GI: Palpation (GI): Soft to palpation Neuro: General: patient oriented x3 Extrem: Other: persistent b/l leg edema ++ Objective Data Active Medications Acetaminophen (Acetaminophen 325 Mg Tablet) 650 mg PO Q6H PRN PRN Reason: Pain, Mild 1-3,fever,headache Last Admin: 06/11/24 06:25 Dose: 650 mg Documented By: JUSTINO Albuterol Sulfate (Albuterol Sulfate (0.083%) 2.5 Mg/3 Ml Vial.Neb) 2.5 mg INHALE Q4H PRN PRN Reason: Shortness of Breath/Wheezing Amlodipine Besylate (Amlodipine Besylate 10 Mg Tablet) 10 mg PO DAILY [facility]; Protocol Last Admin: 06/11/24 07:26 Dose: 10 mg Documented By: SASHA Bupropion HCl (Bupropion Hcl Xl 300 Mg Tab.Er.24h) 300 mg PO DAILY [facility] Last Admin: 06/11/24 07:27 Dose: 300 mg Documented By: SASHA Calcitriol (Calcitriol 0.25 Mcg Capsule) 0.25 mcg PO TUTHSA [facility] Last Admin: 06/11/24 13:15 Dose: 0.25 mcg Documented By: SASHA Clonidine HCl (Clonidine Hcl 0.1 Mg Tablet) 0.1 mg PO BID [facility]; Protocol Last Admin: 06/11/24 07:26 Dose: 0.1 mg Documented By: SASHA Clonidine HCl (Clonidine Hcl 0.2 Mg Tablet) 0.2 mg PO BEDTIME [facility]; Protocol Last Admin: 06/10/24 20:25 Dose: 0.2 mg Documented By: JUSTINO Clotrimazole (Clotrimazole 1 % Cream 15 Gm Tube) 1 appl TOPICAL BID PRN; Protocol PRN Reason: vulvar itching Cyanocobalamin (Cyanocobalamin (Vitamin B-12) 100 Mcg Tablet) 100 mcg PO DAILY [facility] Last Admin: 06/11/24 07:26 Dose: 100 mcg Documented By: SASHA Docusate Sodium (Docusate Sodium 100 Mg Capsule) 100 mg PO BEDTIME [facility] Last Admin: 06/10/24 20:26 Dose: 100 mg Documented By: JUSTINO Ergocalciferol (Ergocalciferol (Vitamin D2) 1,250 Mcg Capsule) 1,250 mcg PO Fr@0900 [facility] Last Admin: 06/10/24 16:36 Dose: 1,250 mcg Documented By: CORBIN Gabapentin (Gabapentin 600 Mg Tablet) 600 mg PO BID [facility] Last Admin: 06/11/24 07:26 Dose: 600 mg Documented By: SASHA Guaifenesin (Guaifenesin La 600 Mg Tab.Er.12h) 600 mg PO BID [facility] Last Admin: 06/11/24 07:26 Dose: 600 mg Documented By: SASHA Guaifenesin (Guaifenesin 100 Mg/5 Ml 5 Ml Liquid) 5 ml PO Q6H PRN PRN Reason: Cough Last Admin: 06/11/24 13:20 Dose: 5 ml Documented By: SASHA Heparin Sodium (Porcine) (Heparin Sodium,Porcine 5,000 Unit/Ml Vial) 5,000 unit INTRACATH TUTHSA@1645 [facility] Last Admin: 06/09/24 17:37 Dose: Not Given Documented By: CRISTIANR Non-Admin Reason: dialysis med Hydromorphone HCl (Hydromorphone Hcl 0.5 Mg/0.5 Ml Syringe) 0.25 mg IVPUSH Q6H PRN; Protocol PRN Reason: Pain, Severe (Pain Scale 7-10) Last Admin: 06/11/24 13:20 Dose: 0.25 mg Documented By: SASHA Hydroxyzine HCl (Hydroxyzine Hcl 50 Mg Tablet) 50 mg PO TID PRN PRN Reason: Anxiety Last Admin: 06/10/24 20:26 Dose: 50 mg Documented By: JUSTINO Lidocaine/Diphenhydr/Alum/Mg/Simeth (Mag&Al/Sim/Diphenhyd/Lidocaine 10 Ml Oral.Susp) 10 ml PO Q4H PRN; Protocol PRN Reason: thrush Last Admin: 06/10/24 20:25 Dose: 10 ml Documented By: JUSTINO Magnesium Hydroxide (Milk Of Magnesia 30 Ml Oral.Susp) 30 ml PO DAILY PRN PRN Reason: Constipation Melatonin (Melatonin 3 Mg Tablet) 6 mg PO BEDTIME PRN PRN Reason: Insomnia Last Admin: 06/10/24 20:26 Dose: 6 mg Documented By: JUSTINO Methadone HCl (Methadone Hcl 20 Mg/2 Ml Oral.Conc) 100 mg PO DAILY [facility] Last Admin: 06/11/24 07:27 Dose: 100 mg Documented By: SASHA Co-signed By: ELPIDIO Methadone HCl (Methadone Hcl 20 Mg/2 Ml Oral.Conc) 95 mg PO DAILY@1700 [facility] Last Admin: 06/10/24 16:37 Dose: 95 mg Documented By: CORBIN Co-signed By: BRUNO Nicotine Polacrilex (Nicotine Polacrilex Lozenge 2 Mg Lozenge) 2 mg BUCCAL Q2H PRN PRN Reason: Nicotine Cravings Non-Formulary Medication (Lumateperone [Caplyta]) 42 mg PO DAILY [facility] Nystatin (Nystatin Oral Susp 500,000 Unit/5 Ml Oral.Susp) 500,000 unit PO DAILY PRN; Protocol PRN Reason: THROAT THRUSH Last Admin: 06/05/24 14:41 Dose: 500,000 unit Documented By: KAVITA Omeprazole (Omeprazole 20 Mg Capsule.Dr) 20 mg PO DAILY@0630 [facility] Last Admin: 06/11/24 06:25 Dose: 20 mg Documented By: JUSTINO Ondansetron HCl (Ondansetron Hcl 4 Mg/2 Ml Vial) 4 mg IVPUSH Q8H PRN PRN Reason: Nausea and Vomiting Last Admin: 06/11/24 15:19 Dose: 4 mg Documented By: SASHA Oseltamivir Phosphate (Oseltamivir Phosphate 30 Mg Capsule) 30 mg PO Q24H [facility] Stop: 06/17/24 17:01 Last Admin: 06/10/24 16:36 Dose: 30 mg Documented By: RIOJENNY Polyethylene Glycol (Polyethylene Glycol 3350 17 Gm Powd.Pack) 17 gm PO DAILY PRN PRN Reason: Constipation Last Admin: 06/11/24 07:31 Dose: 17 gm Documented By: SASHA Quetiapine Fumarate (Quetiapine Fumarate 50 Mg Tablet) 50 mg PO TID PRN PRN Reason: Anxiety Last Admin: 06/11/24 15:19 Dose: 50 mg Documented By: SASHA Sodium Chloride (0.9 % Sodium Chloride Flush 3 Ml Syringe) 3 ml IVFLUSH QSHIFT [facility] Last Admin: 06/11/24 07:25 Dose: 3 ml Documented By: SASHA Topiramate (Topiramate 100 Mg Tablet) 100 mg PO BID [facility] Last Admin: 06/11/24 07:26 Dose: 100 mg Documented By: SASHA Trazodone HCl (Trazodone Hcl 100 Mg Tablet) 100 mg PO BEDTIME PRN PRN Reason: Insomnia Last Admin: 06/07/24 20:58 Dose: 100 mg Documented By: GERRY Warfarin Sodium (Warfarin Sodium 5 Mg Tablet) 5 mg PO DAILY@1800 [facility] Last Admin: 06/09/24 17:36 Dose: 5 mg Documented By: CRISTIANR Labs 06/11/24 06:52 06/11/24 06:52 Labs: Laboratory Results - last 24 hr 06/11/24 06:52 MCV 95.5 MCH 30.8 MCHC 32.2 RDW 19.1 H Plt Count 191 MPV 11.6 Absolute Nucleated RBC 0.000 Nucleated RBC % (auto) 0.0 Hold Purple Top SEE NOTE PT 47.1 H INR 4.0 H Anion Gap 15 Estim Creat Clear Calc 15.9 Estimated GFR 9 Random Glucose 133 H Calcium 8.0 L Assessment and Plan (1) End stage renal disease on dialysis: Status: Acute (2) Secondary hyperparathyroidism (of renal origin): Status: Acute (3) Anasarca: Status: Acute Plan 43 yo F with multiple medical problems who presents with edema and shortness of breath. Found to have GERRI + anasarca URI due to influenza A and coronavirus OC43 no pneumonia on CXR Mucinex, supportive care tamiflu GERRI on CKD possible lupus nephritis vs esrd nephrology on board, follow recs> s/p solu-medrol 1g daily x3 days; Biopsy done 06/07/24 , renal doppler neg for bebo started on HD 05/30; continue TuThSa schedule as per nephrology permacath placed 06/08 awaiting outpatient HD chair still fluid overloaded, abd US consistent with concurrent cirrhosis - outpatient GI follow up hyperkalemia due to above should improve with HD today Vaginal yeast infection Fluconazole x1 Clotrimazole cream for a vulvar area as needed bacilius bacteremia not clinically significant per ID, does not need treatment Transaminitis down-trending Anti-phospholipid syndrome INR 4.0 today, will hold coumadin and re-assess in am follow INR coumadin on hold Normocytic anemia Likely secondary to renal disease H/H stable History of lupus see #1 Chronic opiate dependence methadone HTN continue norvasc, clonidine Mood continue home meds Full Code DVT pptx - coumadin Requires ongoing inpatient stay for close monitoring of renal function and hemodialysis; awaiting outpatient HD chair Quality Stroke Does the patient have a stroke diagnosis?: No VTE Prior VTE?: Yes VTE Risk Level:: Medical - moderate - high VTE Device Contraindication: Treatment Not Indicated VTE Drug Contraindication: N/A - Med Ordered
[2024-06-11] MEDS: methADONE HCl 20 MG/2 ML ORAL.CONC 95 MG PO (17:50)
[2024-06-11] MEDS: Oseltamivir Phosphate 30 MG CAPSULE PO (17:50)
[2024-06-11] MEDS: Docusate Sodium 100 MG CAPSULE PO (21:22)
[2024-06-11] MEDS: Mag&Al/Sim/Diphenhyd/Lidocaine 10 ML ORAL.SUSP PO (21:22)
[2024-06-11] MEDS: cloNIDine HCL 0.2 MG TABLET PO (21:23)
[2024-06-11] MEDS: hydrOXYzine HCL 50 MG TABLET PO (21:24)
[2024-06-11] MEDS: Melatonin 3 MG TABLET 6 MG PO (21:24)
[2024-06-12 03:40] VITALS: BP 143/73; PULSE 75; RESP 16; TEMP 36.9; O2SAT 95
[2024-06-12] MEDS: guaiFENesin 100 MG/5 ML 5 ML LIQUID PO ×3 (04:27→20:37)
[2024-06-12] MEDS: Acetaminophen 325 MG TABLET 650 MG PO ×2 (04:28→14:16)
[2024-06-12] MEDS: HYDROmorphone HCl 0.5 MG/0.5 ML SYRINGE 0.25 MG IVPUSH (04:28)
[2024-06-12] MEDS: QUEtiapine Fumarate 50 MG TABLET PO ×3 (04:28→20:38)
[2024-06-12] MEDS: Omeprazole 20 MG CAPSULE.DR PO (04:36)
[2024-06-12 07:19] LABS: Anion Gap 15 (12-20); Blood Urea Nitrogen 47 mg/dL (9-16); Calcium 8.2 mg/dL (8.4-10.2); Carbon Dioxide 20 mmol/L (22-29); Chloride 106 mmol/L (96-108); Estimated Glomerular Filt Rate 11; Glucose Random 109 mg/dL (60-115); Potassium 4.6 mmol/L (3.3-5.1); Sodium 136 mmol/L (135-145)
[2024-06-12 07:42] VITALS: BP 143/73
[2024-06-12] MEDS: cloNIDine HCL 0.1 MG TABLET PO ×2 (07:42→20:37)
[2024-06-12] MEDS: Cyanocobalamin (Vitamin B-12) 100 MCG TABLET PO (07:42)
[2024-06-12] MEDS: guaiFENesin LA 600 MG TAB.ER.12H PO ×2 (07:42→20:37)
[2024-06-12] MEDS: hydrOXYzine HCL 50 MG TABLET PO ×2 (07:42→20:38)
[2024-06-12] MEDS: Gabapentin 600 MG TABLET PO ×2 (07:42→20:37)
[2024-06-12] MEDS: buPROPion HCl XL 300 MG TAB.ER.24H PO (07:42)
[2024-06-12 07:43] VITALS: BP 141/74; BP 143/73; PULSE 82; RESP 18; TEMP 36.7; O2SAT 95
[2024-06-12] MEDS: 0.9 % Sodium Chloride Flush 3 ML SYRINGE IVFLUSH ×3 (07:43→20:38)
[2024-06-12] MEDS: amLODIPine Besylate 10 MG TABLET PO (07:43)
[2024-06-12] MEDS: Topiramate 100 MG TABLET PO ×2 (07:43→20:38)
[2024-06-12] MEDS: methADONE HCl 20 MG/2 ML ORAL.CONC 100 MG PO (07:43)
[2024-06-12] MEDS: polyethylene glycoL 3350 17 GM POWD.PACK PO (07:57)
[2024-06-12 10:56] LABS: INTERNATIONAL NORM RATIO 2.2 (0.9-1.1); Prothrombin Time 25.9 SEC (10.9-12.4)
[2024-06-12 11:37] VITALS: BP 140/68; PULSE 80; RESP 18; TEMP 36.8; O2SAT 97
--- NOTE | 2024-06-12 13:08 | P.PNIM_ITS ---
Subjective Subjective Date of Service: 06/12/24 Interval History: seen and examined this morning follow up for ESRD, influenza and caronavirus OC43 breathing and cough improving Review of Systems Review of Systems: Yes all other systems are reviewed and are negative Constitutional Constitutional: Denies chills and Denies fever(s) Cardiovascular Cardiovascular: Denies chest pain and Denies palpitations Endocrine Endocrine: Denies palpitations Physical Exam 2 Vital Signs: Vital Signs: Last Vital Signs Temp 98.3 F 06/12/24 11:37 Pulse 80 06/12/24 11:37 Resp 18 06/12/24 11:37 BP 140/68 H 06/12/24 11:37 Pulse Ox 97 06/12/24 11:37 O2 Del Method Room Air 06/12/24 11:37 O2 Flow Rate 2 06/08/24 10:37 BMI result Body Mass Index 30.6 Const: General: cooperative, comfortable, no acute distress, alert and awake Nutritional Appearance: average body habitus Orientation/consciousness: p atient oriented x3 Chest: Other: permcath in place Resp: Effort & Inspection: normal respiratory effort, able to speak in complete sentences, no respiratory distress and no use of accessory muscles Cardio: Rate: regular rate GI: Inspection: No distended Palpation (GI): Soft to palpation and nontender Neuro: General: patient oriented x3, moves all extremities and CN's II-XI intact bilaterally Extrem: Other: persistent b/l leg edema ++ Objective Data Active Medications Acetaminophen (Acetaminophen 325 Mg Tablet) 650 mg PO Q6H PRN PRN Reason: Pain, Mild 1-3,fever,headache Last Admin: 06/12/24 04:28 Dose: 650 mg Documented By: JUSTINO Albuterol Sulfate (Albuterol Sulfate (0.083%) 2.5 Mg/3 Ml Vial.Neb) 2.5 mg INHALE Q4H PRN PRN Reason: Shortness of Breath/Wheezing Amlodipine Besylate (Amlodipine Besylate 10 Mg Tablet) 10 mg PO DAILY [facility]; Protocol Last Admin: 06/12/24 07:43 Dose: 10 mg Documented By: SASHA Bupropion HCl (Bupropion Hcl Xl 300 Mg Tab.Er.24h) 300 mg PO DAILY [facility] Last Admin: 06/12/24 07:42 Dose: 300 mg Documented By: SASHA Calcitriol (Calcitriol 0.25 Mcg Capsule) 0.25 mcg PO TUTHSA [facility] Last Admin: 06/11/24 13:15 Dose: 0.25 mcg Documented By: SASHA Clonidine HCl (Clonidine Hcl 0.1 Mg Tablet) 0.1 mg PO BID [facility]; Protocol Last Admin: 06/12/24 07:42 Dose: 0.1 mg Documented By: SASHA Clonidine HCl (Clonidine Hcl 0.2 Mg Tablet) 0.2 mg PO BEDTIME [facility]; Protocol Last Admin: 06/11/24 21:23 Dose: 0.2 mg Documented By: JUSTINO Clotrimazole (Clotrimazole 1 % Cream 15 Gm Tube) 1 appl TOPICAL BID PRN; Protocol PRN Reason: vulvar itching Cyanocobalamin (Cyanocobalamin (Vitamin B-12) 100 Mcg Tablet) 100 mcg PO DAILY [facility] Last Admin: 06/12/24 07:42 Dose: 100 mcg Documented By: SASHA Docusate Sodium (Docusate Sodium 100 Mg Capsule) 100 mg PO BEDTIME [facility] Last Admin: 06/11/24 21:22 Dose: 100 mg Documented By: JUSTINO Ergocalciferol (Ergocalciferol (Vitamin D2) 1,250 Mcg Capsule) 1,250 mcg PO Fr@0900 [facility] Last Admin: 06/10/24 16:36 Dose: 1,250 mcg Documented By: CORBIN Gabapentin (Gabapentin 600 Mg Tablet) 600 mg PO BID [facility] Last Admin: 06/12/24 07:42 Dose: 600 mg Documented By: SASHA Guaifenesin (Guaifenesin La 600 Mg Tab.Er.12h) 600 mg PO BID [facility] Last Admin: 06/12/24 07:42 Dose: 600 mg Documented By: SASHA Guaifenesin (Guaifenesin 100 Mg/5 Ml 5 Ml Liquid) 5 ml PO Q6H PRN PRN Reason: Cough Last Admin: 06/12/24 04:27 Dose: 5 ml Documented By: JUSTINO Heparin Sodium (Porcine) (Heparin Sodium,Porcine 5,000 Unit/Ml Vial) 5,000 unit INTRACATH TUTHSA@1645 [facility] Last Admin: 06/11/24 17:50 Dose: Not Given Documented By: SASHA Non-Admin Reason: per sample book maker Hydroxyzine HCl (Hydroxyzine Hcl 50 Mg Tablet) 50 mg PO TID PRN PRN Reason: Anxiety Last Admin: 06/12/24 07:42 Dose: 50 mg Documented By: SASHA Lidocaine/Diphenhydr/Alum/Mg/Simeth (Mag&Al/Sim/Diphenhyd/Lidocaine 10 Ml Oral.Susp) 10 ml PO Q4H PRN; Protocol PRN Reason: thrush Last Admin: 06/11/24 21:22 Dose: 10 ml Documented By: JUSTINO Magnesium Hydroxide (Milk Of Magnesia 30 Ml Oral.Susp) 30 ml PO DAILY PRN PRN Reason: Constipation Melatonin (Melatonin 3 Mg Tablet) 6 mg PO BEDTIME PRN PRN Reason: Insomnia Last Admin: 06/11/24 21:24 Dose: 6 mg Documented By: JUSTINO Methadone HCl (Methadone Hcl 20 Mg/2 Ml Oral.Conc) 100 mg PO DAILY [facility] Last Admin: 06/12/24 07:43 Dose: 100 mg Documented By: SASHA Co-signed By: BERNARD Methadone HCl (Methadone Hcl 20 Mg/2 Ml Oral.Conc) 95 mg PO DAILY@1700 [facility] Last Admin: 06/11/24 17:50 Dose: 95 mg Documented By: SASHA Co-signed By: ELPIDIO Nicotine Polacrilex (Nicotine Polacrilex Lozenge 2 Mg Lozenge) 2 mg BUCCAL Q2H PRN PRN Reason: Nicotine Cravings Non-Formulary Medication (Lumateperone [Caplyta]) 42 mg PO DAILY [facility] Nystatin (Nystatin Oral Susp 500,000 Unit/5 Ml Oral.Susp) 500,000 unit PO DAILY PRN; Protocol PRN Reason: THROAT THRUSH Last Admin: 06/05/24 14:41 Dose: 500,000 unit Documented By: KAVITA Omeprazole (Omeprazole 20 Mg Capsule.Dr) 20 mg PO DAILY@0630 [facility] Last Admin: 06/12/24 04:36 Dose: 20 mg Documented By: JUSTINO Ondansetron HCl (Ondansetron Hcl 4 Mg/2 Ml Vial) 4 mg IVPUSH Q8H PRN PRN Reason: Nausea and Vomiting Last Admin: 06/11/24 15:19 Dose: 4 mg Documented By: SASHA Oseltamivir Phosphate (Oseltamivir Phosphate 30 Mg Capsule) 30 mg PO Q24H [facility] Stop: 06/17/24 17:01 Last Admin: 06/11/24 17:50 Dose: 30 mg Documented By: SASHA Oxycodone HCl (Oxycodone Hcl Immed Release 5 Mg Tablet) 5 mg PO Q8H PRN PRN Reason: Pain, Moderate(Pain Scale 4-6) Polyethylene Glycol (Polyethylene Glycol 3350 17 Gm Powd.Pack) 17 gm PO DAILY PRN PRN Reason: Constipation Last Admin: 06/12/24 07:57 Dose: 17 gm Documented By: SASHA Quetiapine Fumarate (Quetiapine Fumarate 50 Mg Tablet) 50 mg PO TID PRN PRN Reason: Anxiety Last Admin: 06/12/24 04:28 Dose: 50 mg Documented By: JUSTINO Sodium Chloride (0.9 % Sodium Chloride Flush 3 Ml Syringe) 3 ml IVFLUSH QSHIFT [facility] Last Admin: 06/12/24 07:43 Dose: 3 ml Documented By: SASHA Topiramate (Topiramate 100 Mg Tablet) 100 mg PO BID [facility] Last Admin: 06/12/24 07:43 Dose: 100 mg Documented By: SASHA Trazodone HCl (Trazodone Hcl 100 Mg Tablet) 100 mg PO BEDTIME PRN PRN Reason: Insomnia Last Admin: 06/07/24 20:58 Dose: 100 mg Documented By: GERRY Warfarin Sodium (Warfarin Sodium 2.5 Mg Tablet) 2.5 mg PO DAILY@1800 [facility] Labs 06/11/24 06:52 06/12/24 06:08 Labs: Laboratory Results - last 24 hr 06/12/24 06/12/24 06/12/24 06:08 06:31 10:26 Hold Purple Top SEE NOTE PT 25.9 H D INR 2.2 H Anion Gap 15 Estim Creat Clear Calc 20.0 Estimated GFR 11 Random Glucose 109 Calcium 8.2 L Assessment and Plan (1) End stage renal disease on dialysis: Status: Acute (2) Secondary hyperparathyroidism (of renal origin): Status: Acute Plan 43 yo F with multiple medical problems who presents with edema and shortness of breath. Found to have GERRI + anasarca URI due to influenza A and coronavirus OC43 no pneumonia on CXR Mucinex, supportive care tamiflu respiratory status improving, no hypoxia GERRI on CKD possible lupus nephritis vs esrd; more likely ESRD per nephrology nephrology on board, follow recs> s/p solu-medrol 1g daily x3 days; Biopsy done 06/07/24 (results pending), renal doppler neg for bebo started on HD 05/30; continue TuThSa schedule as per nephrology permacath placed 06/08 awaiting outpatient HD chair still fluid overloaded, abd US consistent with concurrent cirrhosis - outpatient GI follow up hyperkalemia improve with HD Vaginal yeast infection Fluconazole x1 bacilius bacteremia not clinically significant per ID, does not need treatment Transaminitis down-trending Anti-phospholipid syndrome INR 2.5 resume coumadin at home dose follow INR Normocytic anemia Likely secondary to renal disease H/H stable History of lupus see #1 Chronic opiate dependence methadone HTN continue norvasc, clonidine Mood continue home meds Full Code DVT pptx - coumadin Requires ongoing inpatient stay for close monitoring of renal function and hemodialysis; awaiting outpatient HD chair Quality Stroke Does the patient have a stroke diagnosis?: No VTE Prior VTE?: Yes VTE Risk Level:: Medical - moderate - high VTE Device Contraindication: Treatment Not Indicated VTE Drug Contraindication: N/A - Med Ordered
[2024-06-12] MEDS: oxyCODONE HCl Immed Release 5 MG TABLET PO (13:18)
[2024-06-12 14:52] VITALS: BP 147/78; PULSE 86; RESP 18; TEMP 37.6; O2SAT 95
[2024-06-12] MEDS: methADONE HCl 20 MG/2 ML ORAL.CONC 95 MG PO (16:39)
[2024-06-12] MEDS: Oseltamivir Phosphate 30 MG CAPSULE PO (16:39)
[2024-06-12] MEDS: Warfarin Sodium 2.5 MG TABLET PO (17:18)
[2024-06-12 20:00] VITALS: BP 192/91; PULSE 106; RESP 20; TEMP 36.8; O2SAT 97
[2024-06-12] MEDS: Docusate Sodium 100 MG CAPSULE PO (20:37)
[2024-06-12] MEDS: cloNIDine HCL 0.2 MG TABLET PO (20:37)
[2024-06-13] VITALS (7 sets, daily range): BP systolic 140–185; BP diastolic 82–100; PULSE 80–97; RESP 16–20; TEMP 36.4–37.5; O2SAT 92–100
[2024-06-13] MEDS: oxyCODONE HCl Immed Release 5 MG TABLET PO ×3 (00:26→16:06)
[2024-06-13] MEDS: Omeprazole 20 MG CAPSULE.DR PO (04:20)
[2024-06-13] MEDS: hydrOXYzine HCL 50 MG TABLET PO ×2 (04:21→12:55)
[2024-06-13 07:03] LABS: INTERNATIONAL NORM RATIO 1.7 (0.9-1.1); Prothrombin Time 19.8 SEC (10.9-12.4)
[2024-06-13] MEDS: methADONE HCl 20 MG/2 ML ORAL.CONC 100 MG PO (08:27)
[2024-06-13] MEDS: Topiramate 100 MG TABLET PO ×2 (08:27→19:48)
[2024-06-13] MEDS: guaiFENesin LA 600 MG TAB.ER.12H PO ×2 (08:28→19:48)
[2024-06-13] MEDS: buPROPion HCl XL 300 MG TAB.ER.24H PO (08:28)
[2024-06-13] MEDS: amLODIPine Besylate 10 MG TABLET PO (08:28)
[2024-06-13] MEDS: Cyanocobalamin (Vitamin B-12) 100 MCG TABLET PO (08:28)
[2024-06-13] MEDS: Gabapentin 600 MG TABLET PO ×2 (08:28→19:49)
[2024-06-13] MEDS: cloNIDine HCL 0.1 MG TABLET PO ×2 (08:28→19:49)
[2024-06-13] MEDS: QUEtiapine Fumarate 50 MG TABLET PO ×2 (08:35→16:06)
[2024-06-13] MEDS: 0.9 % Sodium Chloride Flush 3 ML SYRINGE IVFLUSH ×3 (08:37→19:52)
--- NOTE | 2024-06-13 09:47 | PM.PNNEP ---
Subjective Subjective Date of Service: 06/13/24 Interval history: seen and examined this morning follow up for ESRD, influenza and caronavirus OC43 breathing and cough improving Physical Exam Vital Signs: Vital Signs: Last Vital Signs Temp 98.7 F 06/13/24 07:24 Pulse 97 06/13/24 07:24 Resp 17 06/13/24 07:24 BP 185/96 H 06/13/24 07:24 Pulse Ox 95 06/13/24 07:24 O2 Del Method Room Air 06/13/24 07:24 O2 Flow Rate 2 06/08/24 10:37 BMI result Body Mass Index 30.6 Const: General: comfortable, no acute distress and ill appearing Orientation/consciousness: patient oriented x3 HEENT: Head: Yes normocephalic Mouth: Normal oral and palatal mucosa present Eyes: EOM: EOMs intact bilaterally Neck: Neck: Yes supple Resp: Auscultation: clear to auscultation bilaterally and diminished lung sounds Cardio: Jugular venous distension: no JVD Palpation: no palpable S3 Rate: regular rate Heart sounds: no rubs GI: Palpation (GI): Soft to palpation Auscultation: normal bowel sounds : General: Yes no CVA tenderness Back/Spine/Pelvis: Back: no CVA tenderness Skin: General skin exam: no rashes or lesions noted Neuro: General: patient oriented x3 and moves all extremities Motor exam (neuro): no asterixis Objective Data Labs 06/14/24 06:03 06/12/24 06:08 Labs: Laboratory Results - last 24 hr 06/12/24 06/13/24 10:26 06:15 PT 25.9 H D 19.8 H D INR 2.2 H 1.7 H Microbiology Microbiology Results: Microbiology 05/29/24 19:56 Blood - Venous Blood Culture - Final No growth after 5 days. 05/29/24 19:56 Blood - Venous Blood Culture - Final Bacillus species 05/29/24 Unknown Urine clean catch - Clean Catch Midstream Urine Culture - Final Procedures Date of Service Date of Service: 06/14/24 Assessment & Plan Assessment and plan (1) End stage renal disease on dialysis: Status: Acute (2) Secondary hyperparathyroidism (of renal origin): Status: Acute Plan GERRI superimposed on advanced CKD; Likely ESRD ; S/P permcath. Due HD tomorrow Doppler of renal arteries and veins neg; Was given pulse Methylprednisone 1 gm x 3 days- No further pred Had renal Biopsy ; HD TTS. Continued vol optimization on HD; Vitamin D 22893 U once a week Calcitriol 0.25 mcg TTS; Outpt HD spot NOT yet approved( Did try in [facility] [place] dialysis might have a spot I am still working on it. Time Spent With Patient Time: Total time managing care of this patient today ____ minutes. Progress Note: Quality Stroke Does the patient have a stroke diagnosis?: No
--- NOTE | 2024-06-13 11:35 | MHC.RECOVRN ---
Met with pt to provide support. Pt sitting in bed, awake, alert, easily engages in conversation. Pt reporting muscle cramping/jerking and abdominal cramping. Pt requesting to speak with Cecy Espino APRN. Pt reports she is waiting for a dialysis chair in the community. Reports she has talked to her family members that she has not spoken to in years and making amends. Pt reports desire to engage with [facility]. Denies other questions or concerns. Discussed with Cecy Espino APRN.
--- NOTE | 2024-06-13 11:36 | MHC.CM.PN ---
Per PT, no PT needs indicated; plan is for dc to home,pending Nephrology's location of a community HD slot. CM will follow.
--- NOTE | 2024-06-13 11:50 | P.PNIM_ITS ---
Subjective Subjective Date of Service: 06/13/24 Interval History: seen and examined this morning follow up for ESRD, influenza and caronavirus OC43 breathing and cough improving Review of Systems Review of Systems: Yes all other systems are reviewed and are negative Constitutional Constitutional: Denies chills and Denies fever(s) Cardiovascular Cardiovascular: Denies chest pain and Denies palpitations Endocrine Endocrine: Denies palpitations Physical Exam 2 Vital Signs: Vital Signs: Last Vital Signs Temp 97.6 F 06/13/24 11:24 Pulse 92 06/13/24 11:24 Resp 18 06/13/24 11:24 BP 159/82 H 06/13/24 11:24 Pulse Ox 94 06/13/24 11:24 O2 Del Method Room Air 06/13/24 11:24 O2 Flow Rate 2 06/08/24 10:37 BMI result Body Mass Index 30.6 Appearing in no acute distress lung sounds are clear to auscultation heart regular rate rhythm, clear S1, S2 positive bowel sounds, abdomen is soft, nontender neuro patient is alert x3, no focal deficits Objective Data Active Medications Acetaminophen (Acetaminophen 325 Mg Tablet) 650 mg PO Q6H PRN PRN Reason: Pain, Mild 1-3,fever,headache Last Admin: 06/12/24 14:16 Dose: 650 mg Documented By: SASHA Albuterol Sulfate (Albuterol Sulfate (0.083%) 2.5 Mg/3 Ml Vial.Neb) 2.5 mg INHALE Q4H PRN PRN Reason: Shortness of Breath/Wheezing Amlodipine Besylate (Amlodipine Besylate 10 Mg Tablet) 10 mg PO DAILY [facility]; Protocol Last Admin: 06/13/24 08:28 Dose: 10 mg Documented By: JULITO Bupropion HCl (Bupropion Hcl Xl 300 Mg Tab.Er.24h) 300 mg PO DAILY [facility] Last Admin: 06/13/24 08:28 Dose: 300 mg Documented By: JULITO Calcitriol (Calcitriol 0.25 Mcg Capsule) 0.25 mcg PO TUTHSA [facility] Last Admin: 06/11/24 13:15 Dose: 0.25 mcg Documented By: SASHA Clonidine HCl (Clonidine Hcl 0.1 Mg Tablet) 0.1 mg PO BID [facility]; Protocol Last Admin: 06/13/24 08:28 Dose: 0.1 mg Documented By: JULITO Clonidine HCl (Clonidine Hcl 0.2 Mg Tablet) 0.2 mg PO BEDTIME [facility]; Protocol Last Admin: 06/12/24 20:37 Dose: 0.2 mg Documented By: DOROTHY Cyanocobalamin (Cyanocobalamin (Vitamin B-12) 100 Mcg Tablet) 100 mcg PO DAILY [facility] Last Admin: 06/13/24 08:28 Dose: 100 mcg Documented By: JULITO Docusate Sodium (Docusate Sodium 100 Mg Capsule) 100 mg PO BEDTIME [facility] Last Admin: 06/12/24 20:37 Dose: 100 mg Documented By: DOROTHY Ergocalciferol (Ergocalciferol (Vitamin D2) 1,250 Mcg Capsule) 1,250 mcg PO Fr@0900 [facility] Last Admin: 06/10/24 16:36 Dose: 1,250 mcg Documented By: CORBIN Gabapentin (Gabapentin 600 Mg Tablet) 600 mg PO BID [facility] Last Admin: 06/13/24 08:28 Dose: 600 mg Documented By: JULITO Guaifenesin (Guaifenesin La 600 Mg Tab.Er.12h) 600 mg PO BID [facility] Last Admin: 06/13/24 08:28 Dose: 600 mg Documented By: JULITO Guaifenesin (Guaifenesin 100 Mg/5 Ml 5 Ml Liquid) 5 ml PO Q6H PRN PRN Reason: Cough Last Admin: 06/12/24 20:37 Dose: 5 ml Documented By: DOROTHY Heparin Sodium (Porcine) (Heparin Sodium,Porcine 5,000 Unit/Ml Vial) 5,000 unit INTRACATH TUTHSA@1645 [facility] Last Admin: 06/11/24 17:50 Dose: Not Given Documented By: SASHA Non-Admin Reason: per workers compensation coordinator Hydroxyzine HCl (Hydroxyzine Hcl 50 Mg Tablet) 50 mg PO TID PRN PRN Reason: Anxiety Last Admin: 06/13/24 04:21 Dose: 50 mg Documented By: DOROTHY Lidocaine/Diphenhydr/Alum/Mg/Simeth (Mag&Al/Sim/Diphenhyd/Lidocaine 10 Ml Oral.Susp) 10 ml PO Q4H PRN; Protocol PRN Reason: thrush Last Admin: 06/11/24 21:22 Dose: 10 ml Documented By: JUSTINO Magnesium Hydroxide (Milk Of Magnesia 30 Ml Oral.Susp) 30 ml PO DAILY PRN PRN Reason: Constipation Melatonin (Melatonin 3 Mg Tablet) 6 mg PO BEDTIME PRN PRN Reason: Insomnia Last Admin: 06/11/24 21:24 Dose: 6 mg Documented By: JUSTINO Methadone HCl (Methadone Hcl 20 Mg/2 Ml Oral.Conc) 100 mg PO DAILY [facility] Last Admin: 06/13/24 08:27 Dose: 100 mg Documented By: JULITO Co-signed By: KAVITA Methadone HCl (Methadone Hcl 20 Mg/2 Ml Oral.Conc) 95 mg PO DAILY@1700 [facility] Last Admin: 06/12/24 16:39 Dose: 95 mg Documented By: SASHA Co-signed By: NAMAN Nicotine Polacrilex (Nicotine Polacrilex Lozenge 2 Mg Lozenge) 2 mg BUCCAL Q2H PRN PRN Reason: Nicotine Cravings Nystatin (Nystatin Oral Susp 500,000 Unit/5 Ml Oral.Susp) 500,000 unit PO DAILY PRN; Protocol PRN Reason: THROAT THRUSH Last Admin: 06/05/24 14:41 Dose: 500,000 unit Documented By: KAVITA Omeprazole (Omeprazole 20 Mg Capsule.Dr) 20 mg PO DAILY@0630 [facility] Last Admin: 06/13/24 04:20 Dose: 20 mg Documented By: DOROTHY Ondansetron HCl (Ondansetron Hcl 4 Mg/2 Ml Vial) 4 mg IVPUSH Q8H PRN PRN Reason: Nausea and Vomiting Last Admin: 06/11/24 15:19 Dose: 4 mg Documented By: SASHA Oseltamivir Phosphate (Oseltamivir Phosphate 30 Mg Capsule) 30 mg PO Q24H [facility] Stop: 06/17/24 17:01 Last Admin: 06/12/24 16:39 Dose: 30 mg Documented By: SASHA Oxycodone HCl (Oxycodone Hcl Immed Release 5 Mg Tablet) 5 mg PO Q8H PRN PRN Reason: Pain, Moderate(Pain Scale 4-6) Last Admin: 06/13/24 08:27 Dose: 5 mg Documented By: JULITO Polyethylene Glycol (Polyethylene Glycol 3350 17 Gm Powd.Pack) 17 gm PO DAILY PRN PRN Reason: Constipation Last Admin: 06/12/24 07:57 Dose: 17 gm Documented By: SASHA Quetiapine Fumarate (Quetiapine Fumarate 50 Mg Tablet) 50 mg PO TID PRN PRN Reason: Anxiety Last Admin: 06/13/24 08:35 Dose: 50 mg Documented By: JULITO Sodium Chloride (0.9 % Sodium Chloride Flush 3 Ml Syringe) 3 ml IVFLUSH QSHIFT [facility] Last Admin: 06/13/24 08:37 Dose: 3 ml Documented By: JULITO Topiramate (Topiramate 100 Mg Tablet) 100 mg PO BID [facility] Last Admin: 06/13/24 08:27 Dose: 100 mg Documented By: JULITO Trazodone HCl (Trazodone Hcl 100 Mg Tablet) 100 mg PO BEDTIME PRN PRN Reason: Insomnia Last Admin: 06/07/24 20:58 Dose: 100 mg Documented By: GERRY Warfarin Sodium (Warfarin Sodium 2.5 Mg Tablet) 2.5 mg PO DAILY@1800 [facility] Last Admin: 06/12/24 17:18 Dose: 2.5 mg Documented By: SASHA Labs 06/11/24 06:52 06/12/24 06:08 Labs: Laboratory Results - last 24 hr 06/13/24 06:15 PT 19.8 H D INR 1.7 H Assessment and Plan (1) End stage renal disease on dialysis: Status: Acute (2) Secondary hyperparathyroidism (of renal origin): Status: Acute Plan 43 yo F with multiple medical problems who presents with edema and shortness of breath. Found to have GERRI + anasarca URI due to influenza A and coronavirus OC43 no pneumonia on CXR Mucinex, supportive care tamiflu respiratory status improving, no hypoxia GERRI on CKD possible lupus nephritis vs esrd; more likely ESRD per nephrology nephrology on board, follow recs> s/p solu-medrol 1g daily x3 days; Biopsy done 06/07/24 (results pending), renal doppler neg for bebo started on HD 05/30; continue TuThSa schedule as per nephrology permacath placed 06/08 awaiting outpatient HD chair still fluid overloaded, abd US consistent with concurrent cirrhosis - outpatient GI follow up hyperkalemia improve with HD Vaginal yeast infection Fluconazole x1 bacilius bacteremia not clinically significant per ID, does not need treatment Transaminitis down-trending Anti-phospholipid syndrome INR 2.5 resume coumadin at home dose follow INR Normocytic anemia Likely secondary to renal disease H/H stable History of lupus see #1 Chronic opiate dependence methadone HTN continue norvasc, clonidine Mood continue home meds Full Code DVT pptx - coumadin Requires ongoing inpatient stay for close monitoring of renal function and hemodialysis; awaiting outpatient HD chair Quality Stroke Does the patient have a stroke diagnosis?: No VTE Prior VTE?: Yes VTE Risk Level:: Medical - moderate - high VTE Device Contraindication: Treatment Not Indicated VTE Drug Contraindication: N/A - Med Ordered
[2024-06-13] MEDS: Oseltamivir Phosphate 30 MG CAPSULE PO (16:06)
[2024-06-13] MEDS: Warfarin Sodium 2.5 MG TABLET PO (17:12)
[2024-06-13] MEDS: methADONE HCl 20 MG/2 ML ORAL.CONC 95 MG PO (17:12)
[2024-06-13] MEDS: guaiFENesin 100 MG/5 ML 5 ML LIQUID PO (19:48)
[2024-06-13] MEDS: Docusate Sodium 100 MG CAPSULE PO (19:49)
[2024-06-13] MEDS: cloNIDine HCL 0.2 MG TABLET PO (19:50)
[2024-06-13] MEDS: Labetalol HCL 100 MG/20 ML VIAL 10 MG IVPUSH (22:13)
[2024-06-14] VITALS (10 sets, daily range): BP systolic 150–188; BP diastolic 84–103; PULSE 77–96; RESP 18–20; TEMP 36.4–37.5; O2SAT 94–96; BMI 27.8
[2024-06-14] MEDS: oxyCODONE HCl Immed Release 5 MG TABLET PO ×3 (01:44→20:10)
[2024-06-14] MEDS: hydrOXYzine HCL 50 MG TABLET PO ×3 (01:44→20:09)
--- NOTE | 2024-06-14 02:50 | PM.EVENT ---
Event Note Date of Service: 06/14/24 Event Note: Nurse reported black stool. Stool occult blood test pending. Administering IV protonix. Cbc in am Time Spent With Patient Time: Total time managing care of this patient today ____ minutes.
[2024-06-14 06:24] LABS: MANUAL DIFF FLAG NO
[2024-06-14] MEDS: Pantoprazole Sodium 40 MG/10 ML VIAL 80 MG IVPUSH (06:32)
[2024-06-14 06:37] LABS: INTERNATIONAL NORM RATIO 2.1 (0.9-1.1); Prothrombin Time 24.2 SEC (10.9-12.4)
[2024-06-14 06:47] LABS: Basophils Absolute Auto 0.1 X10*3/uL (0.0-0.2); Basophils Percent Auto 0.7 % (0-2); Eosinophils Absolute Auto 0.4 X10*3/uL (0.0-0.4); Eosinophils Percent Auto 4.1 % (0-4); Hematocrit 27.9 % (37.0-47.0); Hemoglobin 8.9 g/dl (12.0-16.0); Imm Gran Abs Auto 0.06 X10*3/uL (0.00-0.03); Imm Gran Pct Auto 0.6 % (0.0-0.4); Lymphocytes Absolute Auto 1.1 X10*3/uL (1.2-4.9); Lymphocytes Percent Auto 10.7 % (20-40); Mean Corpuscular HGB Conc 31.9 g/dl (31.0-35.0); Mean Corpuscular Hemoglobin 29.8 pg (27.0-33.0); Mean Corpuscular Volume 93.3 fL (80.0-98.0); Monocytes Absolute Auto 1.4 X10*3/uL (0.1-1.2); Monocytes Percent Auto 13.5 % (2-11); Neutrophils Absolute Auto 7.2 x10*3/uL (2.0-8.3); Neutrophils Percent Auto 70.4 % (45-73); Platelet Count 250 X10*3/uL (160-400); Red Blood Count 2.99 X10*6/uL (4.20-5.50); Red Cell Distribution Width 18.4 % (11.0-16.0); White Blood Count 10.2 X10*3/uL (4.8-10.8)
[2024-06-14] MEDS: amLODIPine Besylate 10 MG TABLET PO (08:11)
[2024-06-14] MEDS: Labetalol HCL 100 MG/20 ML VIAL 20 MG IVPUSH ×2 (08:11→23:47)
[2024-06-14] MEDS: 0.9 % Sodium Chloride Flush 3 ML SYRINGE IVFLUSH ×2 (08:11→16:17)
[2024-06-14] MEDS: buPROPion HCl XL 300 MG TAB.ER.24H PO (08:12)
[2024-06-14] MEDS: guaiFENesin LA 600 MG TAB.ER.12H PO ×2 (08:12→20:09)
[2024-06-14] MEDS: Gabapentin 600 MG TABLET PO ×2 (08:12→20:09)
[2024-06-14] MEDS: cloNIDine HCL 0.1 MG TABLET PO ×2 (08:12→20:09)
[2024-06-14] MEDS: Cyanocobalamin (Vitamin B-12) 100 MCG TABLET PO (08:12)
[2024-06-14] MEDS: Topiramate 100 MG TABLET PO ×2 (08:12→20:09)
[2024-06-14] MEDS: QUEtiapine Fumarate 50 MG TABLET PO (08:12)
[2024-06-14] MEDS: methADONE HCl 20 MG/2 ML ORAL.CONC 100 MG PO (08:12)
--- NOTE | 2024-06-14 09:42 | HO.PM.IMPN ---
Subjective Subjective Date of Service: 06/14/24 Interval History: seen and examined this morning follow up for ESRD, influenza and caronavirus OC43 breathing and cough improving Review of Systems Review of Systems: Yes all other systems are reviewed and are negative Constitutional Constitutional: Denies chills and Denies fever(s) Cardiovascular Cardiovascular: Denies chest pain and Denies palpitations Endocrine Endocrine: Denies palpitations Physical Exam Vital Signs: Vital Signs: Last Vital Signs Temp 97.6 F 06/14/24 07:46 Pulse 82 06/14/24 08:11 Resp 18 06/14/24 07:46 BP 172/98 H 06/14/24 08:12 Pulse Ox 95 06/14/24 07:46 O2 Del Method Room Air 06/14/24 07:46 O2 Flow Rate 2 06/08/24 10:37 BMI result Body Mass Index 27.8 Appearing in no acute distress lung sounds are clear to auscultation heart regular rate rhythm, clear S1, S2 positive bowel sounds, abdomen is soft, nontender neuro patient is alert x3, no focal deficits Objective Data Active Medications Acetaminophen (Acetaminophen 325 Mg Tablet) 650 mg PO Q6H PRN PRN Reason: Pain, Mild 1-3,fever,headache Last Admin: 06/12/24 14:16 Dose: 650 mg Documented By: SASHA Albuterol Sulfate (Albuterol Sulfate (0.083%) 2.5 Mg/3 Ml Vial.Neb) 2.5 mg INHALE Q4H PRN PRN Reason: Shortness of Breath/Wheezing Amlodipine Besylate (Amlodipine Besylate 10 Mg Tablet) 10 mg PO DAILY [facility]; Protocol Last Admin: 06/14/24 08:11 Dose: 10 mg Documented By: SASHA Bupropion HCl (Bupropion Hcl Xl 300 Mg Tab.Er.24h) 300 mg PO DAILY [facility] Last Admin: 06/14/24 08:12 Dose: 300 mg Documented By: SASHA Calcitriol (Calcitriol 0.25 Mcg Capsule) 0.25 mcg PO TUTHSA [facility] Last Admin: 06/11/24 13:15 Dose: 0.25 mcg Documented By: SASHA Clonidine HCl (Clonidine Hcl 0.1 Mg Tablet) 0.1 mg PO BID [facility]; Protocol Last Admin: 06/14/24 08:12 Dose: 0.1 mg Documented By: SASHA Clonidine HCl (Clonidine Hcl 0.2 Mg Tablet) 0.2 mg PO BEDTIME [facility]; Protocol Last Admin: 06/13/24 19:50 Dose: 0.2 mg Documented By: ATIF Cyanocobalamin (Cyanocobalamin (Vitamin B-12) 100 Mcg Tablet) 100 mcg PO DAILY [facility] Last Admin: 06/14/24 08:12 Dose: 100 mcg Documented By: SASHA Docusate Sodium (Docusate Sodium 100 Mg Capsule) 100 mg PO BEDTIME [facility] Last Admin: 06/13/24 19:49 Dose: 100 mg Documented By: ATIF Ergocalciferol (Ergocalciferol (Vitamin D2) 1,250 Mcg Capsule) 1,250 mcg PO Fr@0900 [facility] Last Admin: 06/10/24 16:36 Dose: 1,250 mcg Documented By: RIOSCCARLY Gabapentin (Gabapentin 600 Mg Tablet) 600 mg PO BID [facility] Last Admin: 06/14/24 08:12 Dose: 600 mg Documented By: SASHA Guaifenesin (Guaifenesin La 600 Mg Tab.Er.12h) 600 mg PO BID [facility] Last Admin: 06/14/24 08:12 Dose: 600 mg Documented By: SASHA Guaifenesin (Guaifenesin 100 Mg/5 Ml 5 Ml Liquid) 5 ml PO Q6H PRN PRN Reason: Cough Last Admin: 06/13/24 19:48 Dose: 5 ml Documented By: ATIF Heparin Sodium (Porcine) (Heparin Sodium,Porcine 5,000 Unit/Ml Vial) 5,000 unit INTRACATH TUTA@1645 [facility] Last Admin: 06/11/24 17:50 Dose: Not Given Documented By: SASHA Non-Admin Reason: per test administrator Hydroxyzine HCl (Hydroxyzine Hcl 50 Mg Tablet) 50 mg PO TID PRN PRN Reason: Anxiety Last Admin: 06/14/24 01:44 Dose: 50 mg Documented By: NEDA Lidocaine/Diphenhydr/Alum/Mg/Simeth (Mag&Al/Sim/Diphenhyd/Lidocaine 10 Ml Oral.Susp) 10 ml PO Q4H PRN; Protocol PRN Reason: thrush Last Admin: 06/11/24 21:22 Dose: 10 ml Documented By: JUSTINO Magnesium Hydroxide (Milk Of Magnesia 30 Ml Oral.Susp) 30 ml PO DAILY PRN PRN Reason: Constipation Melatonin (Melatonin 3 Mg Tablet) 6 mg PO BEDTIME PRN PRN Reason: Insomnia Last Admin: 06/11/24 21:24 Dose: 6 mg Documented By: JUSTINO Methadone HCl (Methadone Hcl 20 Mg/2 Ml Oral.Conc) 100 mg PO DAILY [facility] Last Admin: 06/14/24 08:12 Dose: 100 mg Documented By: SASHA Co-signed By: ELPIDIO Methadone HCl (Methadone Hcl 20 Mg/2 Ml Oral.Conc) 95 mg PO DAILY@1700 [facility] Last Admin: 06/13/24 17:12 Dose: 95 mg Documented By: JULITO Co-signed By: KAVITA Nicotine Polacrilex (Nicotine Polacrilex Lozenge 2 Mg Lozenge) 2 mg BUCCAL Q2H PRN PRN Reason: Nicotine Cravings Nystatin (Nystatin Oral Susp 500,000 Unit/5 Ml Oral.Susp) 500,000 unit PO DAILY PRN; Protocol PRN Reason: THROAT THRUSH Last Admin: 06/05/24 14:41 Dose: 500,000 unit Documented By: KAVITA Omeprazole (Omeprazole 20 Mg Capsule.Dr) 20 mg PO DAILY@0630 [facility] Last Admin: 06/14/24 06:37 Dose: Not Given Documented By: NEDA Non-Admin Reason: Patient received Pantoprazole one time order Ondansetron HCl (Ondansetron Hcl 4 Mg/2 Ml Vial) 4 mg IVPUSH Q8H PRN PRN Reason: Nausea and Vomiting Last Admin: 06/11/24 15:19 Dose: 4 mg Documented By: SASHA Oseltamivir Phosphate (Oseltamivir Phosphate 30 Mg Capsule) 30 mg PO Q24H [facility] Stop: 06/17/24 17:01 Last Admin: 06/13/24 16:06 Dose: 30 mg Documented By: JULITO Oxycodone HCl (Oxycodone Hcl Immed Release 5 Mg Tablet) 5 mg PO Q8H PRN PRN Reason: Pain, Moderate(Pain Scale 4-6) Last Admin: 06/14/24 08:12 Dose: 5 mg Documented By: SASHA Polyethylene Glycol (Polyethylene Glycol 3350 17 Gm Powd.Pack) 17 gm PO DAILY PRN PRN Reason: Constipation Last Admin: 06/12/24 07:57 Dose: 17 gm Documented By: SASHA Quetiapine Fumarate (Quetiapine Fumarate 50 Mg Tablet) 50 mg PO TID PRN PRN Reason: Anxiety Last Admin: 06/14/24 08:12 Dose: 50 mg Documented By: SASHA Sodium Chloride (0.9 % Sodium Chloride Flush 3 Ml Syringe) 3 ml IVFLUSH QSHIFT [facility] Last Admin: 06/14/24 08:11 Dose: 3 ml Documented By: SASHA Sumatriptan Succinate (Sumatriptan Succinate 50 Mg Tablet) 50 mg PO DAILY PRN PRN Reason: Migraine Headache Topiramate (Topiramate 100 Mg Tablet) 100 mg PO BID [facility] Last Admin: 06/14/24 08:12 Dose: 100 mg Documented By: SASHA Trazodone HCl (Trazodone Hcl 100 Mg Tablet) 100 mg PO BEDTIME PRN PRN Reason: Insomnia Last Admin: 06/07/24 20:58 Dose: 100 mg Documented By: GERRY Warfarin Sodium (Warfarin Sodium 2.5 Mg Tablet) 2.5 mg PO DAILY@1800 [facility] Last Admin: 06/13/24 17:12 Dose: 2.5 mg Documented By: JULITO Labs 06/14/24 06:03 06/12/24 06:08 Labs: Laboratory Results - last 24 hr 06/14/24 06:03 MCV 93.3 MCH 29.8 MCHC 31.9 RDW 18.4 H Plt Count 250 D MPV 11.0 Immature Gran % (Auto) 0.6 H Neut % (Auto) 70.4 Lymph % (Auto) 10.7 L [place] % (Auto) 13.5 H Eos % (Auto) 4.1 H Baso % (Auto) 0.7 Lymph # (Auto) 1.1 L [place] # (Auto) 1.4 H Eos # (Auto) 0.4 Baso # (Auto) 0.1 Abs Immat Gran (auto) 0.06 H Absolute Neuts (auto) 7.2 Absolute Nucleated RBC 0.000 Nucleated RBC % (auto) 0.0 PT 24.2 H D INR 2.1 H Assessment and Plan (1) End stage renal disease on dialysis: Status: Acute (2) Secondary hyperparathyroidism (of renal origin): Status: Acute Plan 43 yo F with multiple medical problems who presents with edema and shortness of breath. Found to have EGRRI + anasarca URI due to influenza A and coronavirus OC43 no pneumonia on CXR Mucinex, supportive care tamiflu respiratory status improving, no hypoxia GERRI on CKD possible lupus nephritis vs esrd; more likely ESRD per nephrology nephrology on board, follow recs> s/p solu-medrol 1g daily x3 days; Biopsy done 06/07/24 (results pending), renal doppler neg for bebo started on HD 05/30; continue TuThSa schedule as per nephrology permacath placed 06/08 awaiting outpatient HD chair still fluid overloaded, abd US consistent with concurrent cirrhosis - outpatient GI follow up hyperkalemia improve with HD Vaginal yeast infection Fluconazole x1 bacilius bacteremia not clinically significant per ID, does not need treatment Transaminitis down-trending Anti-phospholipid syndrome INR 2.1 resume coumadin at home dose follow INR Normocytic anemia Likely secondary to renal disease H/H stable History of lupus see #1 Chronic opiate dependence methadone HTN continue norvasc, clonidine Mood continue home meds Full Code DVT pptx - coumadin Requires ongoing inpatient stay for close monitoring of renal function and hemodialysis; awaiting outpatient HD chair Quality Stroke Does the patient have a stroke diagnosis?: No VTE Prior VTE?: Yes VTE Risk Level:: Medical - moderate - high VTE Device Contraindication: Treatment Not Indicated VTE Drug Contraindication: N/A - Med Ordered
--- NOTE | 2024-06-14 11:33 | P.PNNP_ITS ---
Subjective Subjective Date of Service: 06/14/24 Interval history: seen and examined this morning follow up for ESRD, influenza and caronavirus OC43 breathing and cough improving Physical Exam 2 Vital Signs: Vital Signs: Last Vital Signs Temp 97.6 F 06/14/24 11:10 Pulse 77 06/14/24 11:10 Resp 18 06/14/24 11:10 BP 150/89 H 06/14/24 11:10 Pulse Ox 96 06/14/24 11:10 O2 Del Method Room Air 06/14/24 11:10 O2 Flow Rate 2 06/08/24 10:37 BMI result Body Mass Index 27.8 Const: General: comfortable, no acute distress and ill appearing O rientation/consciousness: patient oriented x3 HEENT: Head: Yes normocephalic Mouth: Normal oral and palatal mucosa present Eyes: EOM: EOMs intact bilaterally Neck: Neck: Yes supple Resp: Auscultation: clear to auscultation bilaterally and diminished lung sounds Cardio: Jugular venous distension: no JVD Palpation: no palpable S3 R ate: regular rate Heart sounds: no rubs GI: Palpation (GI): Soft to palpation Auscultation: normal bowel sounds : General: Yes no CVA tenderness Back/Spine/Pelvis: Back: no CVA tenderness Skin: General skin exam: no rashes or lesions noted Neuro: General: patient oriented x3 and moves all extremities Motor exam (neuro): no asterixis Objective Data Labs 06/15/24 06:45 06/15/24 06:45 Labs: Laboratory Results - last 24 hr 06/14/24 06:03 WBC 10.2 RBC 2.99 L Hgb 8.9 L Hct 27.9 L MCV 93.3 MCH 29.8 MCHC 31.9 RDW 18.4 H Plt Count 250 D MPV 11.0 Immature Gran % (Auto) 0.6 H Neut % (Auto) 70.4 Lymph % (Auto) 10.7 L [place] % (Auto) 13.5 H Eos % (Auto) 4.1 H Baso % (Auto) 0.7 Lymph # (Auto) 1.1 L [place] # (Auto) 1.4 H Eos # (Auto) 0.4 Baso # (Auto) 0.1 Abs Immat Gran (auto) 0.06 H Absolute Neuts (auto) 7.2 Absolute Nucleated RBC 0.000 Nucleated RBC % (auto) 0.0 PT 24.2 H D INR 2.1 H Microbiology Microbiology Results: Microbiology 05/29/24 19:56 Blood - Venous Blood Culture - Final No growth after 5 days. 05/29/24 19:56 Blood - Venous Blood Culture - Final Bacillus species 05/29/24 Unknown Urine clean catch - Clean Catch Midstream Urine Culture - Final Procedures Date of Service Date of Service: 06/15/24 Assessment & Plan Assessment and plan (1) End stage renal disease on dialysis: Status: Acute (2) Secondary hyperparathyroidism (of renal origin): Status: Acute Plan GERRI superimposed on advanced CKD; Likely ESRD ; S/P permcath. Due HD tomorrow Doppler of renal arteries and veins neg; Was given pulse Methylprednisone 1 gm x 3 days- No further pred Had renal Biopsy ; HD TTS. Continued vol optimization on HD; Vitamin D 24251 U once a week HD today Calcitriol 0.25 mcg TTS; Outpt HD spot NOT yet approved( Did try in [facility]) [facility] might have a spot I am still working on it. Time Spent With Patient Time: Total time managing care of this patient today ____ minutes. Progress Note: Quality Stroke Does the patient have a stroke diagnosis?: No
[2024-06-14] MEDS: SUMAtriptan succinate 50 MG TABLET PO (12:29)
[2024-06-14] MEDS: ondansetron HCL 4 MG/2 ML VIAL IVPUSH (12:29)
--- NOTE | 2024-06-14 16:00 | PM.DS ---
DS: Providers Provider Date of Service: 06/15/24 Date of admission: 05/29/24 22:07 Date of discharge: 06/15/24 Primary care physician: LEIGHTON Valadez Consults: 05/29/24 22:09 Consult to Nephrology Routine Consulting Provider: [facility] Reason for consultation: GERRI on CKD 05/30/24 09:23 Addiction Medicine Routine Consulting Provider: Addiction [facility] Reason for consultation: on methadone, but in renal failure, help with dosing 06/01/24 13:37 Consult to Infectious Diseases Routine Consulting Provider: [facility] [place] [facility] Reason for consultation: GPR bacteremia 06/06/24 10:01 Consult to Wound Care Routine Reason for consultation: R spaulding open wound, weeping 06/08/24 16:18 Consult to Wound Care Routine Reason for consultation: wound L leg 06/12/24 13:17 Consult to Psychiatry Routine Consulting Provider: [facility] [place] [facility] Reason for consultation: med adjustment; start cogentin Has provider been notified: No DS: Diagnosis Discharge Diagnosis (1) End stage renal disease on dialysis: Status: Acute (2) Secondary hyperparathyroidism (of renal origin): Status: Acute DS: Summary Hospital Course Hospital Course: From initial HPI: Patient is a 43-year-old female with a past medical history significant for lupus, antiphospholipid syndrome with previous DVTs (on Coumadin), opiate use disorder (on methadone), CKD, left tibial ORIF (08/2023) with recent complications including dehiscence and infected hardware, HTN, and migraines, who presented to the ED with anasarca for the past few weeks, past few days it has been worsening, is having shortness of breath and pain with walking. She developed a sore on her posterior right calf that has had thin clear drainage, no erythema, pain, warmth or purulent drainage. She reports generalized joint pain, generalized weakness, nausea and vomiting about 2 to 3 times a day. She reports chills but no fever or sick contacts. She also reports her urine has been different, orange with ammonia odor and bubbles. In ED patient was given empiric IV antibiotics, Lasix, hydralazine, labetalol, sodium bicarb. CXR, CT A/P, UA, BC drawn, cardiac and renal teams were consulted. Hospital course: Patient was admitted for anasarca, pain and SOB on exertion. Found to have GERRI with significant fluid overload. Initiation of hemodialysis started on 05/30, with more than 10L removed since. Permacath was placed on 06/08. Pt. has multiple chronic medical comorbidities. She has been followed historically by nephrology in [place], however has had barriers to treatments. Renal US doppler done 06/03 which was negative for ROXANNE. Renal biopsy completed on 06/07, sample sent to [facility], pending results. ABD US consistent with concurrent cirrhosis, to follow up with GI outpatient. Transaminitis improving. For her APLAS, her coumadin was resumed at her home dose. Electrolytes improved with HD. URI due to influenza A and mccall virus OC43 symptoms have improved. H&H is stable, normocytic anemia is likely secondary to her renal disease. Continues on her methadone for chronic opiate dependence. For her chronic HTN continuing her norvasc and clonidine, and for her mental health and mood continuing home meds. Dialysis schedule Thursday, Thursday and Thursday Time Attestation Discharge Coordination Time (in mins): 42 Quality: Safe Use of Opioids Does Pt have an Active Cancer Diagnosis on the Problem List?: No Quality: Stroke Does the patient have a stroke diagnosis?: No Physical Exam Vital Signs: Vital Signs: Last Vital Signs Temp 98.6 F 06/14/24 15:03 Pulse 80 06/14/24 15:03 Resp 18 06/14/24 15:03 BP 186/100 H 06/14/24 15:03 Pulse Ox 95 06/14/24 15:03 O2 Del Method Room Air 06/14/24 15:03 O2 Flow Rate 2 06/08/24 10:37 BMI result Body Mass Index 27.8 Appearing in no acute distress head is normocephalic atraumatic eyes pupils are PERRLA sclera is anicteric mouth throat mucous membranes are intact and moist neck is supple no lymphadenopathy, no JVD noted lung sounds are clear to auscultation heart regular rate rhythm, clear S1, S2 positive bowel sounds, abdomen is soft, nontender neuro patient is alert x3, no focal deficits DS: Data Data Completed and Pending Completed studies during hospitalization [Text1]: Pending at discharge 06/07/24 12:07 Surgical Path [Surgical] [PTH] Routine Procedures Detoxification Services for Substance Abuse Treatment (05/09/21) Insertion of Infusion Device into Right Basilic Vein, Percutaneous Approach (02/13/21) Labs on day of discharge: Laboratory Results - last 24 hr 06/14/24 06:03 WBC 10.2 RBC 2.99 L Hgb 8.9 L Hct 27.9 L MCV 93.3 MCH 29.8 MCHC 31.9 RDW 18.4 H Plt Count 250 D MPV 11.0 Immature Gran % (Auto) 0.6 H Neut % (Auto) 70.4 Lymph % (Auto) 10.7 L Atkinson % (Auto) 13.5 H Eos % (Auto) 4.1 H Baso % (Auto) 0.7 Lymph # (Auto) 1.1 L Atkinson # (Auto) 1.4 H Eos # (Auto) 0.4 Baso # (Auto) 0.1 Abs Immat Gran (auto) 0.06 H Absolute Neuts (auto) 7.2 Absolute Nucleated RBC 0.000 Nucleated RBC % (auto) 0.0 PT 24.2 H D INR 2.1 H Discharge Plan Discharge Anticipated Discharge Date/Time: 06/15/24 09:23 Patient Disposition: Home Health Service Discharge Diagnosis: End-stage renal disease initiated on hemodialysis GERRI Hyperkalemia Influenza a Transaminitis Referrals: Jose Rashid PREVENTIVE MAINTENANCE COORDINATOR-BC [Primary Care Provider] - 1 Week Discharge Medications: New ergocalciferol (vitamin D2) [Vitamin D2] 1,250 mcg (50,000 unit) Capsule 1,250 mcg PO Fr@0900 Qty: 8 0RF calcitriol 0.25 mcg Capsule 0.25 mcg PO TUTHSA Qty: 30 0RF guaifenesin [Mucinex] 600 mg Tablet Extended Release 12hr 600 mg PO BID Qty: 14 0RF oseltamivir 30 mg Capsule 30 mg PO Q24H Qty: 2 0RF Continued methadone [Methadose] 10 mg/mL concentrate 95 mg PO BEDTIME Rx Instructions: Partial Fill upon patient request. multivitamin Tablet 1 tab PO DAILY Qty: 30 1RF methadone 10 mg/mL Concentrate 100 mg PO DAILY nystatin 100,000 unit/mL suspension 4 ml PO DAILY PRN (Reason: FLARES) Qty: 60 0RF clonidine HCl 0.1 mg tablet 0.1 mg PO BID Qty: 60 0RF acetaminophen 325 mg Tablet 650 mg PO Q6H PRN (Reason: Headache/Pain Mild Scale (1-3)) Qty: 90 0RF gabapentin 600 mg tablet 600 mg PO BID 30 Days Qty: 60 1RF cyanocobalamin (vitamin B-12) [Vitamin B-12] 100 mcg Tablet 100 mcg PO DAILY Qty: 30 0RF amlodipine 10 mg tablet 10 mg PO DAILY 30 Days Qty: 30 1RF Protocol: Hold for SBP< HOLD for SBP < : 90 omeprazole 20 mg capsule,delayed release(DR/EC) 20 mg PO DAILY@0630 Qty: 30 0RF albuterol sulfate [Ventolin HFA] 90 mcg/actuation Hfa Aerosol Inhaler 2 puff inhalation RQ4H PRN (Reason: Wheezing) Qty: 1 1RF ondansetron 4 mg Tablet,Disintegrating 4 mg PO Q6H PRN (Reason: Migraine Headache) Qty: 60 1RF oxycodone 5 mg tablet 5 mg PO QID PRN (Reason: Pain) Qty: 30 0RF bupropion HCl 300 mg tablet extended release 24 hr 300 mg PO DAILY Qty: 30 0RF Caplyta 42 mg capsule 42 mg PO DAILY Qty: 30 0RF polyethylene glycol 3350 17 gram Powder In Packet 17 g PO DAILY PRN (Reason: Constipation) Qty: 14 0RF trazodone 100 mg Tablet 100 mg PO BEDTIME PRN (Reason: Insomnia) Qty: 30 0RF warfarin 2 mg Tablet 2.5 mg PO DAILY@1800 Qty: 60 0RF topiramate 100 mg tablet 100 mg PO BID Qty: 60 0RF quetiapine 50 mg tablet 50 mg PO TID PRN (Reason: Anxiety) Qty: 90 0RF Changed hydroxyzine pamoate 50 mg capsule 50 mg PO TID PRN (Reason: Anxiety) Qty: 90 0RF clonidine HCl 0.2 mg tablet 0.2 mg PO BEDTIME Qty: 30 0RF Protocol: Hold for SBP< HOLD for SBP < : 90 Discontinued meloxicam 15 mg Tablet 15 mg PO Q8H PRN (Reason: Pain) cholecalciferol (vitamin D3) 1,250 mcg (50,000 unit) capsule 1,250 mcg PO TU Discharge Orders: Discharge Order (Routine); Ordered 06/15/24 Ordered By: Diana Navarro Diet: Advance to usual diet Activity on Discharge: As tolerated Stand Alone Forms: Patient Portal Discharge page Print Language: [place] Care Plan Goals: Follow your regular dialysis schedule Thursday, and Thursday Do not miss any dialysis sessions Health Concerns: End-stage renal disease initiated on hemodialysis GERRI Hyperkalemia Influenza a Transaminitis Plan of Treatment: Follow up with primary care provider as needed Take all medications as prescribed Assessment: See discharge summary
[2024-06-14] MEDS: Acetaminophen 325 MG TABLET 650 MG PO (16:16)
[2024-06-14] MEDS: Warfarin Sodium 2.5 MG TABLET PO (16:17)
[2024-06-14] MEDS: Oseltamivir Phosphate 30 MG CAPSULE PO (16:17)
[2024-06-14] MEDS: calcitrioL 0.25 MCG CAPSULE PO (16:17)
[2024-06-14] MEDS: methADONE HCl 20 MG/2 ML ORAL.CONC 95 MG PO (16:18)
[2024-06-14] MEDS: Docusate Sodium 100 MG CAPSULE PO (20:09)
[2024-06-14] MEDS: cloNIDine HCL 0.2 MG TABLET PO (20:10)
[2024-06-14] MEDS: traZODone HCL 100 MG TABLET PO (23:10)
[2024-06-15 01:10] VITALS: BP 138/82
[2024-06-15 02:41] VITALS: BP 152/90; PULSE 78; RESP 18; TEMP 36.7; O2SAT 93
[2024-06-15 04:00] VITALS: BP 164/96; PULSE 82; RESP 16; TEMP 36.7; O2SAT 95
[2024-06-15 07:10] LABS: Hematocrit 30.3 % (37.0-47.0); Hemoglobin 9.7 g/dl (12.0-16.0); Mean Corpuscular Hemoglobin 29.9 pg (27.0-33.0); Mean Corpuscular Volume 93.5 fL (80.0-98.0); Mean Platelet Volume 10.9 fL (9.4-12.3); Platelet Count 287 X10*3/uL (160-400); Red Blood Count 3.24 X10*6/uL (4.20-5.50); Red Cell Distribution Width 18.3 % (11.0-16.0); White Blood Count 8.4 X10*3/uL (4.8-10.8)
[2024-06-15 07:14] LABS: INTERNATIONAL NORM RATIO 2.4 (0.9-1.1); Prothrombin Time 27.6 SEC (10.9-12.4)
[2024-06-15 07:23] VITALS: BP 196/106; PULSE 89; RESP 16; TEMP 36.9; O2SAT 100
[2024-06-15 07:30] LABS: Anion Gap 15 (12-20); Blood Urea Nitrogen 41 mg/dL (9-16); Calcium 8.4 mg/dL (8.4-10.2); Carbon Dioxide 18 mmol/L (22-29); Chloride 106 mmol/L (96-108); Creatinine Clr Calc Pharmacy 19.5; Estimated Glomerular Filt Rate 12; Glucose Random 89 mg/dL (60-115); Potassium 4.9 mmol/L (3.3-5.1); Sodium 134 mmol/L (135-145)
[2024-06-15 08:17] VITALS: BP 196/106
[2024-06-15] MEDS: cloNIDine HCL 0.1 MG TABLET PO (08:17)
[2024-06-15] MEDS: Topiramate 100 MG TABLET PO (08:17)
[2024-06-15] MEDS: guaiFENesin LA 600 MG TAB.ER.12H PO (08:17)
[2024-06-15] MEDS: buPROPion HCl XL 300 MG TAB.ER.24H PO (08:17)
[2024-06-15] MEDS: oxyCODONE HCl Immed Release 5 MG TABLET PO (08:17)
[2024-06-15] MEDS: amLODIPine Besylate 10 MG TABLET PO (08:17)
[2024-06-15] MEDS: methADONE HCl 20 MG/2 ML ORAL.CONC 100 MG PO (08:18)
[2024-06-15] MEDS: Cyanocobalamin (Vitamin B-12) 100 MCG TABLET PO (08:18)
[2024-06-15] MEDS: 0.9 % Sodium Chloride Flush 3 ML SYRINGE IVFLUSH (08:18)
[2024-06-15] MEDS: Gabapentin 600 MG TABLET PO (08:18)
[2024-06-15] MEDS: ondansetron HCL 4 MG/2 ML VIAL IVPUSH (08:24)
--- NOTE | 2024-06-15 09:06 | MHC.CM.PN ---
IMM 06/15/24, PT MEDICALLY CLEARED FOR DC HOME W/RESUMP OF MMTP AT [facility] AND NEW OUTPT HD AT [facility], CM AWAITING CALL BACK TO CONFIRM SCHEDULE/CHAIR TIME, PT WILL ARRANGE [facility] WHO PT REPORTS IS WAITING FOR A CALL BACK, PT WILL ALSO CALL FAMILY FOR TRANSPORT HOME.
--- NOTE | 2024-06-15 12:20 | P.PNNP_ITS ---
Subjective Subjective Date of Service: 06/16/24 Interval history: Events noted Physical Exam 2 Vital Signs: Vital Signs: Last Vital Signs Temp 98.5 F 06/15/24 07:23 Pulse 89 06/15/24 07:23 Resp 16 06/15/24 07:23 BP 196/106 H 06/15/24 08:17 Pulse Ox 100 06/15/24 07:23 O2 Del Method Room Air 06/15/24 07:23 O2 Flow Rate 2 06/08/24 10:37 BMI result Body Mass Index 27.8 Objective Data Labs 06/15/24 06:45 06/15/24 06:45 Labs: Laboratory Results - last 24 hr 06/15/24 06:45 WBC 8.4 RBC 3.24 L Hgb 9.7 L Hct 30.3 L MCV 93.5 MCH 29.9 MCHC 32.0 RDW 18.3 H Plt Count 287 MPV 10.9 Absolute Nucleated RBC 0.000 Nucleated RBC % (auto) 0.0 PT 27.6 H INR 2.4 H Sodium 134 L Potassium 4.9 Chloride 106 Carbon Dioxide 18 L Anion Gap 15 BUN 41 H Creatinine 4.16 H* Estim Creat Clear Calc 19.5 Estimated GFR 12 Random Glucose 89 Calcium 8.4 Microbiology Microbiology Results: Microbiology 05/29/24 19:56 Blood - Venous Blood Culture - Final No growth after 5 days. 05/29/24 19:56 Blood - Venous Blood Culture - Final Bacillus species 05/29/24 Unknown Urine clean catch - Clean Catch Midstream Urine Culture - Final Procedures Date of Service Date of Service: 06/16/24 Assessment & Plan Assessment and plan (1) End stage renal disease on dialysis: Status: Acute (2) Secondary hyperparathyroidism (of renal origin): Status: Acute Plan EGRRI superimposed on advanced CKD; Likely ESRD ; S/P permcath. Due HD tomorrow Doppler of renal arteries and veins neg; Was given pulse Methylprednisone 1 gm x 3 days- No further pred Had renal Biopsy ; HD TTS. Continued vol optimization on HD; Vitamin D 44304 U once a week HD today Calcitriol 0.25 mcg TTS; Outpt HD spot NOT yet approved( Did try in [facility]) Outpatient dialysis arranged at [facility]. No kidney disease Time Spent With Patient Time: Total time managing care of this patient today ____ minutes. Progress Note: Quality Stroke Does the patient have a stroke diagnosis?: No
[2024-06-15] MEDS: Acetaminophen 325 MG TABLET 650 MG PO (13:22)
[2024-06-15] MEDS: guaiFENesin 100 MG/5 ML 5 ML LIQUID PO (13:24)
== END 2024-06-15 14:10 | disposition home health service (06) | DRG 545 ==
LOC: HO.ED 17:41 → HO.EDOVER 22:12 → HO.IMC 05-30 15:51
PROVIDERS: Family Medicine; Internal Medicine; Internal Medicine Hypertension Specialist; Internal Medicine Nephrology; Physician Assistant Medical; Physician Assistant Surgical; Radiology Vascular & Interventional Radiology; Admitting Provider Student in an Organized Health Care Education/Training Program; Emergency Provider Internal Medicine; PCP Nurse Practitioner Family; Visit Provider Nurse Practitioner Acute Care
PROC: 02HV33Z Insertion of Infusion Device into Superior Vena Cava, Percutaneous Approach (ICD-10-PCS; principal; 2024-05-30 11:30)
DX: M32.14 Glomerular disease in systemic lupus erythematosus (principal); N18.6 End stage renal disease; N17.9 Acute kidney failure, unspecified; D68.61 Antiphospholipid syndrome; I12.0 Hypertensive chronic kidney disease with stage 5 chronic kidney disease or end stage renal disease; F11.20 Opioid dependence, uncomplicated; J10.1 Influenza due to other identified influenza virus with other respiratory manifestations; E87.5 Hyperkalemia; K74.60 Unspecified cirrhosis of liver; B97.29 Other coronavirus as the cause of diseases classified elsewhere; B37.31 Acute candidiasis of vulva and vagina; D63.1 Anemia in chronic kidney disease; F17.210 Nicotine dependence, cigarettes, uncomplicated; Z71.6 Tobacco abuse counseling; Z86.14 Personal history of Methicillin resistant Staphylococcus aureus infection; Z99.2 Dependence on renal dialysis; Z79.899 Other long term (current) drug therapy
CPT/HCPCS: 36415; 36556; 36558; 50200; 71045; 74150; 74176; 76775; 76942; 80048; 80051; 80053; 80076; 80307; 81001; 81025; 82248; 82306; 82310; 82550; 82565; 82570; 82784; 83605; 83690; 83735; 83880; 83970; 84100; 84156; 85025; 85027; 85610; 86140; 86160; 86334; 86704; 86706; 86850; 86900; 86901; 87040; 87086; 87205; 87340; 87389; 87633; 88300; 88305; 88313; 88346; 88348; 88350; 90999; 93005; 93306; 93975; 97161; 99152; 99153; 99285; C1750; C1752; C1769; J0360; J0696; J1171; J1920; J1940; J1956; J2003; J2250; J2405; J2470; J2919; J3010; J3370

== ENCOUNTER → 2024-05-29 19:29 | Outpatient (BNV) | payer OTHER, SELFPAY | PROVIDERS: Emergency Provider Internal Medicine; PCP Nurse Practitioner Family; Visit Provider Radiology Neuroradiology | DX: R18.8 Other ascites (principal); K59.00 Constipation, unspecified; J90 Pleural effusion, not elsewhere classified; J98.11 Atelectasis | CPT/HCPCS: 71045; 74176 ==

== ENCOUNTER → 2024-05-29 20:26 | Outpatient (BNV) | payer OTHER, SELFPAY | PROVIDERS: Admitting Provider Student in an Organized Health Care Education/Training Program; Emergency Provider Internal Medicine; PCP Nurse Practitioner Family; Visit Provider Internal Medicine Cardiovascular Disease | DX: R94.31 Abnormal electrocardiogram [ECG] [EKG] (principal) | CPT/HCPCS: 93010 ==

== ENCOUNTER 2024-05-29 22:07 | Outpatient (BNV) | payer OTHER, SELFPAY | END 2024-06-07 11:15 | PROVIDERS: Admitting Provider Student in an Organized Health Care Education/Training Program; Emergency Provider Internal Medicine; PCP Nurse Practitioner Family; Visit Provider Radiology Diagnostic Radiology | DX: N18.9 Chronic kidney disease, unspecified (principal) | CPT/HCPCS: 50200; 74150; 76942; 99152 ==

== ENCOUNTER 2024-05-29 22:07 | Outpatient (BNV) | payer OTHER, SELFPAY | END 2024-05-30 11:15 | PROVIDERS: Admitting Provider Student in an Organized Health Care Education/Training Program; Emergency Provider Internal Medicine; PCP Nurse Practitioner Family; Visit Provider Physician Assistant Surgical | DX: N18.6 End stage renal disease (principal) | CPT/HCPCS: 36556; 76937; 77001 ==

== ENCOUNTER 2024-05-29 22:07 | Outpatient (BNV) | payer OTHER, SELFPAY | END 2024-05-30 07:00 | PROVIDERS: Admitting Provider Student in an Organized Health Care Education/Training Program; Emergency Provider Internal Medicine; PCP Nurse Practitioner Family; Visit Provider Internal Medicine Cardiovascular Disease | DX: I35.1 Nonrheumatic aortic (valve) insufficiency (principal); I34.0 Nonrheumatic mitral (valve) insufficiency; I37.1 Nonrheumatic pulmonary valve insufficiency; I36.1 Nonrheumatic tricuspid (valve) insufficiency | CPT/HCPCS: 93306; 93356 ==

== ENCOUNTER 2024-05-29 22:07 | Outpatient (BNV) | payer OTHER, SELFPAY | END 2024-06-03 14:30 | PROVIDERS: Admitting Provider Student in an Organized Health Care Education/Training Program; Emergency Provider Internal Medicine; PCP Nurse Practitioner Family; Visit Provider Radiology Diagnostic Radiology | DX: N17.9 Acute kidney failure, unspecified (principal) | CPT/HCPCS: 93975 ==

== ENCOUNTER 2024-05-29 22:07 | Outpatient (BNV) | payer OTHER, SELFPAY | END 2024-06-08 12:55 | PROVIDERS: Admitting Provider Student in an Organized Health Care Education/Training Program; Emergency Provider Internal Medicine; PCP Nurse Practitioner Family; Visit Provider Radiology Diagnostic Radiology | DX: R05.9 Cough, unspecified (principal) | CPT/HCPCS: 36558; 71045; 76937; 77001 ==

== ENCOUNTER → 2024-05-29 22:07 | Outpatient (BNV) | payer OTHER, SELFPAY | PROVIDERS: Admitting Provider Student in an Organized Health Care Education/Training Program; Emergency Provider Internal Medicine; PCP Nurse Practitioner Family; Visit Provider Internal Medicine Hypertension Specialist | DX: N17.9 Acute kidney failure, unspecified (principal); N18.9 Chronic kidney disease, unspecified | CPT/HCPCS: 90935 ==

== ENCOUNTER → 2024-05-29 22:07 | Outpatient (BNV) | payer OTHER, SELFPAY | PROVIDERS: Admitting Provider Student in an Organized Health Care Education/Training Program; Emergency Provider Internal Medicine; PCP Nurse Practitioner Family; Visit Provider Physician Assistant | DX: R60.1 Generalized edema (principal); N17.9 Acute kidney failure, unspecified; N18.30 Chronic kidney disease, stage 3 unspecified; E87.21 Acute metabolic acidosis; R79.89 Other specified abnormal findings of blood chemistry; E66.811 Obesity, class 1; F19.10 Other psychoactive substance abuse, uncomplicated; Z72.0 Tobacco use | CPT/HCPCS: 99223; 99232 ==

== ENCOUNTER → 2024-05-29 22:07 | Outpatient (BNV) | payer OTHER, SELFPAY | PROVIDERS: Admitting Provider Student in an Organized Health Care Education/Training Program; Emergency Provider Internal Medicine; PCP Nurse Practitioner Family; Visit Provider Nurse Practitioner Psychiatric/Mental Health | DX: F11.90 Opioid use, unspecified, uncomplicated (principal) | CPT/HCPCS: 99222 ==

== ENCOUNTER → 2024-05-29 22:07 | Outpatient (BNV) | payer OTHER, SELFPAY | PROVIDERS: Admitting Provider Student in an Organized Health Care Education/Training Program; Emergency Provider Internal Medicine; PCP Nurse Practitioner Family; Visit Provider Internal Medicine | DX: R60.1 Generalized edema (principal); N17.9 Acute kidney failure, unspecified; N18.9 Chronic kidney disease, unspecified; R78.81 Bacteremia; D72.829 Elevated white blood cell count, unspecified | CPT/HCPCS: 99222 ==

== ENCOUNTER 2024-06-22 08:53 | Outpatient (AMB) | payer OTHER, SELFPAY ==
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
--- OUTSIDE RECORDS SUMMARY | 2024-06-22 09:12 | XMS_ITS | Clinical Summary ---
Author Organization [facility] Address [address] [place] [address] Phone Care Team Providers Care Camp Director Name Role Phone Jose Rashid NP Primary Care Provider [phone] Allergies Active Allergy Reactions Criticality Noted Date Comments Codeine 11/19/2022 Fish-Derived Products 05/03/2020 Other reaction(s): Unknown Iodinated Contrast Media Other (see comments) 11/19/2022 Other 11/19/2022 Bee stings, tree nuts Shellfish-Derived Products 11/19/2022 Medications EPINEPHrine (ADRENALIN) 0.1 % nasal solution 0.15 mg Active amLODIPine (NORVASC) 10 MG tablet Take 10 mg by mouth every morning Active cloNIDine (CATAPRES) 0.1 MG tablet Take 0.1 mg by mouth 1 (one) time each day 0.2mg PM 0.4mg at bedtime 05/09/2020 Active doxepin (SINEquan) 10 MG capsule Take 20 mg by mouth every night 10/18/2022 Active fluticasone (FLONASE) 50 MCG/ACT nasal spray SHAKE LIQUID AND USE 2 SPRAYS IN EACH NOSTRIL EVERY DAY FOR 14 DAYS 11/04/2022 Active Caplyta 42 MG capsule Take 1 capsule by mouth at bed time 10/23/2022 Active omeprazole (PriLOSEC) [address] capsule Take by mouth 1 (one) time each day 10/05/2022 Active SUMAtriptan (IMITREX) 50 MG tablet Take 50 mg by mouth if needed 05/09/2020 Active topiramate (TOPAMAX) 200 MG tablet Take 200 mg by mouth if needed Active traZODone (DESYREL) 100 MG tablet Take 200 mg by mouth every night 10/23/2022 Active ondansetron (ZOFRAN) 4 MG tablet Take 4 mg by mouth every 8 (eight) hours if needed for nausea or vomiting Active hydrOXYzine (ATARAX) 25 MG tablet Take 25 mg by mouth 3 (three) times a day if needed for itching 3-4 tabs daily Active buPROPion XL (WELLBUTRIN XL) 300 MG 24 hr tablet Take 1 tablet by mouth 1 (one) time each day 01/22/2023 Active Active Problems Problem Noted Date Diagnosed Date Stage 3a chronic kidney disease 01/23/2023 Anemia of chronic disease 11/19/2022 Chronic kidney disease 11/19/2022 Hyperparathyroidism due to renal insufficiency 0 11/19/2022 Proteinuria 11/19/2022 Hypertension 11/19/2022 Stage 3b chronic kidney disease 11/19/2022 History of hemolytic anemia 05/04/2020 Essential hypertension 05/03/2020 Systemic lupus erythematosus 05/03/2020 Overview (11/19/2022): Hx plaquenil Resolved Problems Problem Noted Date Diagnosed Date Resolved Date H/O splenectomy 05/04/2020 01/13/2023 Deep venous thrombosis 05/04/202001/13 H/O: pulmonary embolus 05/04/202001/13 History of hepatitis C 05/04/202001/13 Nicotine dependence 05/04/2020 01/14/20 23 Bipolar I disorder 05/03/2020 3 Depressed mood 05/03/2020 01/13/2023 Migraine 05/03/2020 01/13/2023 Opioid dependence, on agonist therapy 05/03/2020 01/13/2023 Oral thrush 05/03/2020 01/13/2023 Family History Medical History Relation Comments Diabetes Father Heart disease Father Hypertension Father Hypertension Mother Relation Status Comments Father Mother Social History Tobacco Use Types Packs/Day Years Used Date Smoking Tobacco: Every Day Cigarettes Smokeless Tobacco: Never Alcohol Use Standard Drinks/Week Comments No 0 (1 standard drink = 0.6 oz pur e alcohol) Comments Unknown Sex and Gender Information Value Date Recorded Sex Assigned at Not on file Legal Sex Female 5:08 PM EST Gender Identity Not on file Sexual Orientation Not on file Last Filed Vital Signs Vital Sign Reading Time Taken Comments Blood Pressure 90/60 01/23/2023 11:22 AM EDT Pulse 75 11/19/2022 2:59 PM EDT Temperature - - Respiratory Rate - - Oxygen Saturation 99% 11/19/2022 2:59 PM EDT Inhaled Oxygen Concentration - - Weight 104 kg (229 lb 9.6 oz) 01/23/2023 11:22 A M EDT Height 174 cm (5' 8.5 ) 11/19/2022 2:59 PM EDT Body Mass Index 34.4 11/19/2022 2:59 PM EDT Plan of Treatment Health Maintenance Due Date Last Done Comments Pneumococcal Vaccine: Pediat rics (0 to 5 Years) and At-Risk Patients (6 to 64 Years) (1 of 2 - PCV) 10/14/1985 Hepatitis B Vaccine (1 of 3 - 19+ 3-dose series) 10/14 Influenza Vaccine (#1) [address] [place] [address] ([id number]) [place] [phone] [facility] ([id number]) Care Teams Camp Director Relationship Specialty Start Date End Date Jose Rashid NP [address] [place] [id number] PCP - General 06/11/20
--- NOTE | 2024-06-22 09:15 | MHC.OFFWIV ---
Intake Vital Signs 06/22/24 09:21 Weight 156 lb BP 122/80 Blood Pressure Location Rt brachial Position Sitting Pulse 74 Pulse Source Pulse Oximeter Temp 98.1 F Temp Source Oral Pulse Oximetry (%) 100 Oxygen Delivery Method Room Air Intake Visit Reasons: EP Cellulitis? Intake Note: Patient here for bilat leg pain, swelling and blisters. Patient Tobacco Use Status: Current everyday Tobacco user Allergies bee pollen [BEE STINGS] Allergy (Severe, Verified 06/22/24 09:23) Anaphylaxis codeine [CODEINE] Allergy (Severe, Verified 06/22/24 09:23) ANAPHYLAXIS Sulfa (Sulfonamide Antibiotics) [SULFA (SULFONAMIDE ANTIBIOTICS)] Allergy (Severe, Verified 06/22/24 09:23) ANAPHYLAXIS Do you need a note to return to daycare/school/sports/work: No HPI HPI Comments History of Present Illness Details History of Present Illness - The patient is a 43-year-old female presenting with cellulitis, multiple leg wounds and pressure ulcers. - She has end-stage renal disease on dialysis (HD on , , Thu) and reports recent hospitalization associated with these issues. - Cellulitis commenced post-hospital discharge, involving significant redness, warmth and blistering, particularly in the legs. - The patient has a history of multiple leg fractures, requiring surgeries, and concerns about the cellulitis potentially affecting the repair areas. - Pressure ulcers on buttocks developed during her hospitalization, primarily due to prolonged immobility and improper bed care, treated with hydrochlorothiazole but not improving. - She has experienced delays in seeing her healthcare provider due to transportation issues. Physical Exam General: Cooperative, healthy appearing, comfortable, no acute distress and well developed Orientation: Patient oriented x3 Limitations: limping gait Head: Normal to inspection Ears: Hearing grossly normal bilaterally Nose: Normal external nose present Face and sinus: Normal facial exam Eyes: Appearance normal, both eyes and all related structures Neck: Normal visual inspection and Yes full ROM Respiratory: Normal respiratory effort and able to speak in complete sentences. 2 Skin: erythema and warmth on bilateral lower extremities, 2+ pitting edema bilateral lower extremities, clear, fluid filled blister noted on the leg, 2 small healing wounds on left leg, 1cm round area of eschar with surrounding erythema on right medial leg. stage 1 ulcer on right buttocks, stage 3 ulcers on the left buttocks. Neuro: Patient oriented x3 Extremities: Normal to inspection, except for wounds on the left medial leg, left lateral leg, and right medial leg [facility], [facility] Medical History (Updated 06/22/24 @ 09:47 by Nadia Pires PA-C) Leukocytosis Bacteremia Left tibial fracture Acute renal failure superimposed on chronic kidney disease Cocaine abuse CKD (chronic kidney disease) Antiphospholipid antibody syndrome MDD (major depressive disorder), recurrent episode, moderate Opioid use disorder, severe, dependence Cocaine use disorder Cellulitis Substance abuse Seizures Candidemia Opioid use disorder, severe, dependence PTSD (post-traumatic stress disorder) Bipolar disorder Opiate abuse, continuous Pulmonary emboli DVT (deep venous thrombosis) [place] filter in place Pneumonia Lupus Surgical History History of appendectomy Hx of splenectomy Social History Household Members: None Housing: Apartment Housing Other:: lIVING IN A Program House Do you presently have visiting nurse or other home services: No Alcohol intake: never Patient Tobacco Use Status: Current everyday Tobacco user Tobacco use type: Cigarette Cigarettes Per Day: 2 Years Smoked: 24 e-Cigarette/Vaping Use: Never Used Second Hand Smoke Exposure: No Substance Use Type: Crack/Cocaine Advance Directives Date on File: 02/14/21 service: No Current occupational status: employed and student Sexual orientation: Did not discuss Cognitive needs: No Hearing needs: No Vision needs: No Review of Systems Const All systems reviewed & are unremarkable except as noted in HPI and below Physical Exam Vital Signs: Last Vital Signs Temp 98.1 F 06/22/24 09:21 Pulse 74 06/22/24 09:21 BP 122/80 06/22/24 09:21 Pulse Ox 100 06/22/24 09:21 Oxygen Delivery Method Room Air 06/22/24 09:21 Assessment & Plan Assessment & Plan (1) Cellulitis: Code(s): L03.90 - Cellulitis, unspecified Qualifiers: Laterality: left Site of cellulitis: extremity Site of cellulitis of extremity: upper extremity Qualified Code(s): L03.114 - Cellulitis of left upper limb Plan: The plan includes a targeted antibiotic therapy with Keflex to address the cellulitis and potential bacterial infections of the affected areas. Sent message to the patient's primary care provider for a wound care referral to manage and treat the pressure ulcers and right leg wound. Also advised PCP of pt's accessibility needs, including adaptive equipment like grab bars and a wedge pillow, PT/OT referrals for reduced ability to ambulate safely status post hospitalization. Additionally, I communicated the importance of addressing home health aid involvement to manage her current care requirements more effectively. Ensuring the patient receives comprehensive wound care to prevent progression is a priority. Patient was informed and verbally consented to the use of an ambient scribe for clinic note documentation during this visit. (2) Decubitus skin ulcer: Code(s): L89.90 - Pressure ulcer of unspecified site, unspecified stage Qualifiers: Pressure injury location: buttock Pressure injury stage: stage 3 Laterality: left Qualified Code(s): L89.323 - Pressure ulcer of left buttock, stage 3 Plan: message for wound care referral sent to PCP (3) Wounds, multiple open, lower extremity: Code(s): S81.809A - Unspecified open wound, unspecified lower leg, initial encounter Qualifiers: Encounter type: initial encounter Laterality: right Qualified Code(s): S81.801A - Unspecified open wound, right lower leg, initial encounter Plan: right medial wound with eschar, message for wound care referral sent to PCP Medications: New cephalexin 500 mg PO Q6H 28 caps 0RF Coding Level of Care Code Est Pt Level 4 (11747) Diagnoses Cellulitis L03.114 Laterality: left Site of cellulitis: extremity Site of cellulitis of extremity: upper extremity Pressure injury of left buttock, stage 3 L89.323 Pressure injury location: buttock Pressure injury stage: stage 3 Laterality: left Multiple open wounds of right lower extremity, initial encounter S81.801A Encounter type: initial encounter Laterality: right
[2024-06-22 09:21] VITALS: BP 122/80; PULSE 74; TEMP 36.7; O2SAT 100
== END 2024-06-22 09:58 | disposition home or self-care (01) ==
PROVIDERS: PCP Nurse Practitioner Family; Visit Provider Physician Assistant
DX: L03.114 Cellulitis of left upper limb (principal); L89.323 Pressure ulcer of left buttock, stage 3; S81.801A Unspecified open wound, right lower leg, initial encounter

== ENCOUNTER → 2024-06-22 08:53 | Outpatient (BNVA) | payer OTHER, SELFPAY | PROVIDERS: PCP Nurse Practitioner Family; Visit Provider Physician Assistant | DX: L03.114 Cellulitis of left upper limb (principal); L89.323 Pressure ulcer of left buttock, stage 3; S81.801A Unspecified open wound, right lower leg, initial encounter | CPT/HCPCS: 99212 ==

== ENCOUNTER 2024-06-30 13:37 | Outpatient (AMB) | payer OTHER, SELFPAY ==
[2024-06-30 13:38] VITALS: BP 130/80; PULSE 85; RESP 16; TEMP 37.4; O2SAT 95; BMI 22.7
--- NOTE | 2024-06-30 13:38 | MHC.PC.OV ---
Vital Signs 06/30/24 13:38 Height 5 ft 8 in Weight 149 lb BMI 22.7 BP 130/80 Blood Pressure Location Rt brachial Position Sitting Respiration 16 Pulse 85 Pulse Source Pulse Oximeter Temp 99.4 F Temp Source Oral Pulse Oximetry (%) 95 Oxygen Delivery Method Room Air Intake Visit Reasons: [facility]/ Acute Kidney Intake Note: pt is here for [facility] ED f/up re acute kidney infection Stencil Sprayer Required: No Accompanied by: Self / Same As Patient Allergies bee pollen [BEE STINGS] Allergy (Severe, Verified 06/30/24 14:09) Anaphylaxis codeine [CODEINE] Allergy (Severe, Verified 06/30/24 14:09) ANAPHYLAXIS Sulfa (Sulfonamide Antibiotics) [SULFA (SULFONAMIDE ANTIBIOTICS)] Allergy (Severe, Verified 06/30/24 14:09) ANAPHYLAXIS Medication List - Last Reconciled 06/30/24 by KWABENA Flores- acetaminophen 650 mg (2 x 325 mg) PO Q6H PRN albuterol sulfate 90 mcg/actuation (Ventolin HFA) 2 puffs inhalation RQ4H PRN amlodipine 10 mg See Protocol PO DAILY 30 days bupropion HCl XL 300 mg PO DAILY calcitriol 0.25 mcg PO TUTHSA cephalexin 500 mg PO Q6H clonidine HCl 0.1 mg PO BID clonidine HCl 0.2 mg See Protocol PO BEDTIME cyanocobalamin (vitamin B-12) (Vitamin B-12) 100 mcg PO DAILY ergocalciferol (vitamin D2) (Vitamin D2) 1,250 mcg PO Fr@0900 gabapentin 600 mg PO BID 30 days hydroxyzine pamoate 50 mg PO TID PRN lumateperone (Caplyta) 42 mg PO DAILY methadone (Methadose) 95 mg PO BEDTIME methadone 100 mg PO DAILY multivitamin 1 tab PO DAILY nystatin 4 mL PO DAILY PRN omeprazole 20 mg PO DAILY@0630 ondansetron 4 mg PO Q6H PRN oxycodone 5 mg PO QID PRN polyethylene glycol 3350 17 grams PO DAILY PRN quetiapine 50 mg PO TID PRN topiramate 100 mg PO BID trazodone 100 mg PO BEDTIME PRN walker 4 wheeled walker with seat and brakes warfarin 2.5 mg (1.25 x 2 mg) PO DAILY@1800 Tobacco use date assessed: 06/30/24 Dental Screening Dental Screen Date: 06/30/24 Did you have a dental visit in the last 12 months?: Yes Did you have a dental problem in the last 6 months where you did not have access to dental care?: No Was dental information given to patient?: Patient has dentist HPI [facility]/ Acute Kidney HPI Details Chief Complaint The patient reports significant pain, particularly in the bilateral medial spaulding wounds. History of Present Illness The patient is a 43-year-old female presenting with a need for hospital discharge follow-up. She has a complex history including systemic lupus erythematosus with antiphospholipid syndrome, previous deep vein thrombosis on anticoagulation therapy with warfarin, opioid use disorder on methadone, and chronic kidney disease. Recently, she was hospitalized from 05/29/2024 to 06/15/2024 due to presenting symptoms of anasarca, which had developed and worsened with shortness of breath, pain while walking, and wound developments including a sore with drainage on her posterior right calf. During hospitalization, acute kidney injury was diagnosed secondary to significant fluid overload, and she required initiation of hemodialysis starting on 05/30/2024. A renal biopsy performed on 06/07/2024 was pending, and abdominal ultrasound revealed findings consistent with cirrhosis. The patient also had a respiratory illness attributed to influenza A and coronavirus OC43, which has since improved. Normocytic anemia secondary to renal disease was noted. The patient continues methadone for chronic opioid dependency and is on antihypertensive medications including Norvasc and clonidine. She requires regular dialysis, now adjusted to Thursday, , and Thursday, following hospital discharge with consistent interdisciplinary follow-up. She experiences pain in bilateral medial spaulding wounds and bed sores on the buttocks. Physical therapy, occupational therapy, and visiting nurse services are part of her ongoing care management with wound care conducted daily (by patient/VNA. Social History - Opioid use disorder managed by methadone maintenance therapy - Utilizes mobility aids including a rolling walker for ambulation Health Maintenance - Wound care management with hygiene practices and use of zinc and moisturizing agents Review of Systems - General: Reports generalized weakness and nausea - Musculoskeletal: Reports joint pain - Integumentary: Reports presence of bed sores on buttocks - Respiratory: Denies ongoing respiratory symptoms -denies any SOB, CP, n/v, s/s of infection (currently) Physical Exam General: Cooperative, healthy appearing, comfortable, no acute distress and well developed Orientation: Patient oriented x3 Limitations: No limitations Head: Normal to inspection Ears: Hearing grossly normal bilaterally Nose: Normal external nose present Face and sinus: Normal facial exam Eyes: Appearance normal, both eyes and all related structures Neck: Normal visual inspection and Yes full ROM Respiratory: Lungs are fairly clear bilaterally Cardiovascular: Regular rate and rhythm. Systolic murmur noted GI: Normal to inspection. Soft to palpation and nontender Skin: No rashes or lesions noted. Bilateral buttocks with small healing stage 2 bed sores. Wounds to bilateral medial shins with some serosanguinous drainage, no active signs of infection including erythema or warmth Neuro: Patient oriented x3 Extremities: +1 edema to bilateral lower extremities. Dorsalis pedis pulses were very difficult to find. Normal to inspection Results - Diagnostic imaging: Abdominal ultrasound consistent with cirrhosis Plan - Continue current dialysis schedule and manage fluid levels to address chronic kidney disease and cirrhosis. - Maintain methadone therapy for opioid use disorder with adherence emphasized. - Recommending follow-up with GI outpatient for cirrhosis management. - Continue antihypertensive regimen including Norvasc and clonidine. - Pain management prescribed as per hospital regimen, with strict instructions on use, BID dosing, PRN - Wound care with VNA support and self-care education provided for further healing. - Facilitating acquisition of shower bars and a commode for home assistance. Discussion Notes I have discussed with the patient the identified conditions, including the management of chronic kidney disease with regular dialysis. Cirrhosis findings warrant a GI follow-up. The patient is informed about the importance of continuing her methadone program for opioid dependency. We addressed pain management with oxycodone prescribed under strict usage guidelines. I emphasized adherence to wound care routines, hypertension management, and regular dialysis activities. Recommendations for compressive support stockings and an equipped home environment were also discussed. Return precautions and anticipatory guidance regarding her health maintenance were reviewed thoroughly. Patient Instructions - Continue attending scheduled dialysis sessions every Thursday, , and Thursday. - Adhere strictly to prescribed methadone doses for opioid use disorder. - Follow prescribed pain medication using the instructions strictly. - Perform daily wound care as instructed and monitor for signs of infection. - Follow prescribed antihypertensive therapy. - Contact the clinic for any worsening of symptoms or new concerns. - Arrange for installation of assistive devices at home as needed. - Engage with ongoing physical and occupational therapy sessions. [facility] Medical History (Updated 06/30/24 @ 14:30 by Jose Rashid [facility]) End stage renal disease on dialysis Secondary hyperparathyroidism (of renal origin) Accelerated essential hypertension Chronic liver disease Tobacco abuse Opioid use disorder Lupus (systemic lupus erythematosus) Leukocytosis Bacteremia Left tibial fracture Acute renal failure superimposed on chronic kidney disease Cocaine abuse CKD (chronic kidney disease) Antiphospholipid antibody syndrome MDD (major depressive disorder), recurrent episode, moderate Opioid use disorder, severe, dependence Cocaine use disorder Cellulitis Substance abuse Seizures Candidemia Opioid use disorder, severe, dependence PTSD (post-traumatic stress disorder) Bipolar disorder Opiate abuse, continuous Pulmonary emboli DVT (deep venous thrombosis) Constantia filter in place Pneumonia Lupus Surgical History History of appendectomy Hx of splenectomy Social History Household Members: None Housing: Apartment Housing Other:: lIVING IN A Program House Do you presently have visiting nurse or other home services: No Alcohol intake: never Patient Tobacco Use Status: Current everyday Tobacco user Tobacco use type: Cigarette Cigarettes Per Day: 2 Years Smoked: 24 e-Cigarette/Vaping Use: Never Used Second Hand Smoke Exposure: No Substance Use Type: Crack/Cocaine Advance Directives Date on File: 02/14/21 service: No Current occupational status: employed and student Sexual orientation: Did not discuss Cognitive needs: No Hearing needs: No Vision needs: No Questionnaire PHQ-9 Over the last 2 weeks, how often have you been bothered by any of the following problems? 1. Little interest or pleasure in doing things: nearly every day 2. Feeling down, depressed, or hopeless: more than half the days 3. Trouble falling or staying asleep, or sleeping too much: several days 4. Feeling tired or having little energy: nearly every day 5. Poor appetite or overeating: nearly every day 6. Feeling bad about yourself - or that you are a failure or have let yourself or your family down: not at all 7. Trouble concentrating on things, such as reading the newspaper or watching television: several days 8. Moving or speaking so slowly that other people could have noticed. Or the opposite - being so fidgety or restless that you have been moving around a lot more than usual: not at all 9. Thoughts that you would be better off or of hurting yourself in some way: not at all Total score: 13 Depression Screening Interpretation: Positive (denies any si or hi) Depression Screening Follow-up: Existing condition and In treatment Depression Screening Done: Yes 43038 - PHQ-9 Billing: Yes Source: Developed by Drs. Matthew Luna, Adilene Bennett, Pradeep Hunter and colleagues, with an educational matt from [employer]. Thrive Questionnaire Date Thrive assessed: 06/30/24 I am a: Patient What is your living situation today?: I have a steady place to live Within the past 12 months, did the food you bought not last and you didn't have the money to get more?: Never true Within the past 12 months, did you worry whether your food would run out before you got money to buy more?: Never true Do you have trouble paying for medicines?: No Do you have trouble getting transportation to medical appointments?: No Do you have trouble paying your heating and electricity bill?: I choose not to answer this question Do you have trouble taking care of your child, family member or friend?: No Do you have trouble with day-to-day activities such as bathing, preparing meals, shopping, managing finances, etc.?: Yes Are you currently unemployed and looking for a job?: No Are you interested in more education?: No Please select the resources that you would like help with: Daily support Currently or been in a relationship where the following occur: No concerns reported THRIVE Score: 0 AUDIT C Alcohol Use Questionnaire (AUDIT-C) 1. How often do you have a drink containing alcohol?: Never 3. How often do you have six or more drinks on one occasion?: Never Total Score: 0 Score Reviewed/Action Taken: Yes HERSON-7 AMB Questionnaire HERSON-7 Date HERSON - 7 assessed: 06/30/24 Feeling nervous, anxious, or on edge: 2 = More than half the days Not being able to stop or control worryin = Nearly every day Worrying too much about different things: 3 = Nearly every day Trouble relaxin = Nearly every day Being so restless that it is hard to sit still: 3 = Nearly every day Becoming easily annoyed or irritable: 2 = More than half the days Feeling afraid as if something awful might happen: 1 = Several days Total HERSON-7 score (0-4 normal; 5-9 mild; 10-14 moderate; 15-21 severe): 17 Source: Developed by Drs. Matthew Luna, Adilene Bennett, Pradeep Hunter and colleagues, with an educational matt from [employer]. HERSON-7 Assessment Billing HERSON-7 Assessment Tool: HERSON-7 Assessment 52225 Physical exam (Primary Care) Vital Signs: Last Vital Signs Temp 99.4 F 06/30/24 13:38 Pulse 85 06/30/24 13:38 Resp 16 06/30/24 13:38 BP 130/80 06/30/24 13:38 Pulse Ox 95 06/30/24 13:38 Oxygen Delivery Method Room Air 06/30/24 13:38 BMI result Body Mass Index 22.7 Tobacco/Smoking Status: Tobacco use Status Tobacco use date assessed 06/30/24 06/30/24 13:43 Patient Tobacco Use Status Current everyday Tobacco 06/30/24 13:43 Tobacco use type Cigarette 06/30/24 13:43 e-Cigarette/Vaping Use Never Used 06/30/24 13:43 PHQ-9: PHQ-9 Score PHQ-9: Total score 13 06/30/24 13:43 Depression Screening Interpretation: Positive (denies any si or hi) Depression Screening Follow-up: Existing condition and In treatment Thrive Assessment: Date of Thrive Assessment Date Thrive assessed 06/30/24 06/30/24 13:43 Currently or been in a relationship where the following occur: No concerns reported Coding Level of Care Code Est Pt Level 4 (29090) Diagnoses Multiple open wounds of right lower extremity, initial encounter S81.801A Encounter type: initial encounter Laterality: right Pressure injury of left buttock, stage 3 L89.323 Pressure injury location: buttock Pressure injury stage: stage 3 Laterality: left Anasarca R60.1 Pain R52 Cirrhosis K74.60 Dialysis patient Z99.2 End stage renal disease on dialysis N18.6; Z99.2 Additional Codes HERSON-7 Assessment Billing - HERSON-7 Assessment Tool: HERSON-7 Assessment 42092 ([id number]) PHQ-9 - 67736 - PHQ-9 Billing: Yes ([id number]) Assessment & Plan Assessment & Plan (1) Wounds, multiple open, lower extremity: Code(s): S81.809A - Unspecified open wound, unspecified lower leg, initial encounter Category: Medical Qualifiers: Encounter type: initial encounter Laterality: right Qualified Code(s): S81.801A - Unspecified open wound, right lower leg, initial encounter (2) Decubitus skin ulcer: Code(s): L89.90 - Pressure ulcer of unspecified site, unspecified stage Category: Medical Qualifiers: Pressure injury location: buttock Pressure injury stage: stage 3 Laterality: left Qualified Code(s): L89.323 - Pressure ulcer of left buttock, stage 3 (3) Anasarca: Code(s): R60.1 - Generalized edema Category: Medical (4) Pain: Code(s): R52 - Pain, unspecified Category: Medical (5) Cirrhosis: Code(s): K74.60 - Unspecified cirrhosis of liver Category: Medical (6) Dialysis patient: Code(s): Z99.2 - Dependence on renal dialysis Category: Medical (7) End stage renal disease on dialysis: Code(s): N18.6 - End stage renal disease; Z99.2 - Dependence on renal dialysis Category: Medical Plan . Medications: Changed From oxycodone 5 mg PO QID PRN 30 tabs 0RF Pain To oxycodone NARCOTIC. can only take as prescribed, cannot share med, cannot drive while on med 5 mg PO BID 12 days PRN 24 tabs 0RF Pain
--- OUTSIDE RECORDS SUMMARY | 2024-06-30 17:30 | XMS_ITS | Clinical Summary ---
Author Organization [facility] Address [address] [place] [address] Phone Care Team Providers Care Commissioned Security Officer Name Role Phone Jose Rashid NP Primary Care Provider [phone] Allergies Active Allergy Reactions Criticality Noted Date [...] series) 10/14 Influenza Vaccine (#1) [address] [place] [address] ([id number]) HARPREET LARSEN [id number] [facility] ([id number]) Care Teams Commissioned Security Officer Relationship Specialty Start Date End Date Jose Rashid NP [address] [place] [phone] PCP - General 06/11/20
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
== END 2024-06-30 14:47 | disposition home or self-care (01) ==
PROVIDERS: PCP Nurse Practitioner Family; Visit Provider Nurse Practitioner Family
DX: S81.801A Unspecified open wound, right lower leg, initial encounter (principal); L89.323 Pressure ulcer of left buttock, stage 3; N18.6 End stage renal disease; Z99.2 Dependence on renal dialysis; K74.60 Unspecified cirrhosis of liver; R60.1 Generalized edema; R52 Pain, unspecified

== ENCOUNTER → 2024-06-30 13:37 | Outpatient (BNVA) | payer OTHER, SELFPAY | PROVIDERS: PCP Nurse Practitioner Family; Visit Provider Nurse Practitioner Family | DX: S81.801A Unspecified open wound, right lower leg, initial encounter (principal); L89.323 Pressure ulcer of left buttock, stage 3; R60.1 Generalized edema; R52 Pain, unspecified; K74.60 Unspecified cirrhosis of liver; N18.6 End stage renal disease; Z99.2 Dependence on renal dialysis | CPT/HCPCS: 96127; 99212 ==

== ENCOUNTER → 2024-07-02 | Outpatient (BNV) | payer OTHER, SELFPAY | PROVIDERS: PCP Nurse Practitioner Family; Visit Provider Internal Medicine Nephrology | DX: N18.6 End stage renal disease (principal) | CPT/HCPCS: 90962 ==

== ENCOUNTER 2024-07-27 13:15 | Inpatient (IN) | payer OTHER, SELFPAY ==
--- NOTE | ~2024-07-27 | XR_ITS ---
EXAMINATION: XR TIBIA FIBULA 2 VIEWS RIGHT, XR TIBIA FIBULA 2 VIEWS LEFT HISTORY: pain COMPARISON: There are no prior studies available for comparison. FINDINGS: AP and lateral views of the of the bilateral tibiae and fibulae are submitted. The patient is status post internal fixation of a fracture of the distal left tibia with an intramedullary aminta. There is no acute fracture or dislocation. There is no osseous destruction. The visualized bilateral knee and ankle joint spaces are preserved. There are vascular calcifications. XR/XR tibia fibula LT 2V IMPRESSION: Status post internal fixation of the left tibia. No plain film evidence of osteomyelitis. If this is a clinical concern, three-phase bone scan or MRI is recommended. Electronically signed by: Matthew Mitchell MD 07/27/2024 02:16 PM [facility]
--- NOTE | ~2024-07-27 | XR_ITS ---
CLINICAL HISTORY: hypoxia 1 view chest x-ray Comparison: CR/SR - XR CHEST 1V - 06/08/24 12:59 EST Findings: Tunneled hemodialysis catheter on the right appears well-positioned. Increasing patchy diffuse ground-glass density and interstitial prominence. Trace left effusion. No acute fracture. IMPRESSION: Increasing interstitial and alveolar edema versus less likely multifocal infiltrate. This document has been electronically signed by: Timoteo Tran MD on 07/31/2024 11:30:39
--- NOTE | ~2024-07-27 | NM_ITS ---
EXAMINATION: 3 phase bone scan lower legs. CLINICAL INDICATION: Evaluate for osteomyelitis. Past history of osteomyelitis left hip COMPARISON: None. TECHNIQUE: Following intravenous administration of 5 mCi of 99m Technetium MDP, three-phase bone scan of both lower legs were obtained. In addition third phase imaging of chest, abdomen and lower extremities was performed. FINDINGS: The first phase of bone scan there is symmetrical mildly increased perfusion seen on either side of the knee joints On immediate/second face of bone scan there is mild increased activity in bilateral proximal tibia and distal femur. Normal activity seen in bilateral femur and rest of the distal tibia and fibula. Mild increased activity seen along the right calcaneus and tarsal bones. On delayed. Face scan there is there is persistent activity in the right ankle and tarsal bones, bilateral distal femur and proximal tibia. Osteomyelitis of distal femur and proximal tibia and fibular cannot be excluded. There is normal third phase activity seen in the spine, pelvis and bilateral femur. NM/NM bone 3 phase IMPRESSION: Findings suspicious for inflammatory changes along the bilateral distal femur and proximal tibia and all 3 phases. Osteomyelitis cannot be excluded. Mid and distal tibia and femur bilaterally, bilateral femurs and hip joints are normal on third phase of bone scan. The spine is unremarkable as well on the third phase. Electronically signed by: Rui Berry MD 08/02/2024 04:54 PM [facility]
--- NOTE | ~2024-07-27 | XR_ITS ---
EXAMINATION: XR TIBIA FIBULA 2 VIEWS RIGHT, XR TIBIA FIBULA 2 VIEWS LEFT HISTORY: pain COMPARISON: There are no prior studies available for comparison. FINDINGS: AP and lateral views of the of the bilateral tibiae and fibulae are submitted. The patient is status post internal fixation of a fracture of the distal left tibia with an intramedullary aminta. There is no acute fracture or dislocation. There is no osseous destruction. The visualized bilateral knee and ankle joint spaces are preserved. There are vascular calcifications. XR/XR tibia fibula RT 2V IMPRESSION: Status post internal fixation of the left tibia. No plain film evidence of osteomyelitis. If this is a clinical concern, three-phase bone scan or MRI is recommended. Electronically signed by: Matthew Mitchell MD 07/27/2024 02:16 PM [facility]
[2024-07-27 13:34] VITALS: BP 149/90; PULSE 86; RESP 16; TEMP 37.2; O2SAT 96; BMI 23.8
--- NOTE | 2024-07-27 13:40 | ED.GENADULT ---
HPI - General Adult General Chief complaint: Skin/Abscess/Foreign Body Stated complaint: R and L Leg Infection- Puss Time Seen by Provider: 07/27/24 15:00 Related Data Home Medications ?Medication ?Instructions ?Recorded ?Confirmed methadone 10 mg/mL oral 95 mg PO BEDTIME 02/12/22 07/27/24 concentrate (Methadose) methadone 10 mg/mL oral concentrate 100 mg PO DAILY 05/30/24 07/27/24 clonidine HCl 0.1 mg tablet 0.1 mg PO BID PRN Anxiety 07/27/24 07/27/24 doxepin 10 mg capsule 10 mg PO BEDTIME 07/27/24 07/27/24 meloxicam 15 mg tablet 15 mg PO DAILY 07/27/24 07/27/24 warfarin 2.5 mg tablet 2.5 mg PO DAILY@1800 07/27/24 07/27/24 Previous Rx's ?Medication ?Instructions ?Recorded multivitamin 1 tab PO DAILY #30 tabs 02/26/22 acetaminophen 325 mg tablet 650 mg (2 x 325 mg) PO Q6H PRN 06/15/24 Headache/Pain Mild Scale (1-3) #90 tabs albuterol sulfate 90 mcg/actuation 2 puff inhalation RQ4H PRN 06/15/24 aerosol inhaler (Ventolin HFA) Wheezing #1 inhaler amlodipine 10 mg tablet 10 mg PO DAILY 30 days #30 tabs 06/15/24 bupropion HCl 300 mg 24 hr tablet, 300 mg PO DAILY #30 tabs 06/15/24 extended release clonidine HCl 0.2 mg tablet 0.2 mg PO BEDTIME #30 tabs 06/15/24 cyanocobalamin (vitamin B-12) 100 100 mcg PO DAILY #30 tabs 06/15/24 mcg tablet (Vitamin B-12) gabapentin 600 mg tablet 600 mg PO BID 30 days #60 tabs 06/15/24 hydroxyzine pamoate 50 mg capsule 50 mg PO TID PRN Anxiety #90 caps 06/15/24 lumateperone 42 mg capsule 42 mg PO DAILY #30 caps 06/15/24 (Caplyta) nystatin 100,000 unit/mL oral 4 ml PO DAILY PRN FLARES #60 mL 06/15/24 suspension omeprazole 20 mg capsule,delayed 20 mg PO DAILY@0630 #30 caps 06/15/24 release ondansetron 4 mg disintegrating 4 mg PO Q6H PRN Migraine Headache 06/15/24 tablet #60 tabs polyethylene glycol 3350 17 gram 17 g PO DAILY PRN Constipation #14 06/15/24 oral powder packet ea quetiapine 50 mg tablet 50 mg PO TID PRN Anxiety #90 tabs 06/15/24 topiramate 100 mg tablet 100 mg PO BID #60 tabs 06/15/24 trazodone 100 mg tablet 100 mg PO BEDTIME PRN Insomnia #30 06/15/24 tabs walker #1 ea 06/24/24 Grab bar #2 ea 07/04/24 commode #1 ea 07/04/24 oxycodone 5 mg tablet 5 mg PO BID PRN Pain 12 days #24 07/19/24 tabs ceftriaxone 1 gram solution for 1 g IVPUSH Q24H #0 ea 08/02/24 injection cinacalcet 30 mg tablet (Sensipar) 30 mg PO TuThSa #0 tabs 08/02/24 Allergies Allergy/AdvReac Type Severity Reaction Status Date / Time No Known Allergies Allergy Verified 07/27/24 13:47 [facility] Past Medical History Medical History (Updated 08/04/24 @ 18:58 by Jose Rashid, [facility]) Bacteremia due to Klebsiella pneumoniae Calciphylaxis with nonhealing ulcer of leg Hemodialysis patient Eschar of lower leg Chronic liver disease End stage renal disease on dialysis Secondary hyperparathyroidism (of renal origin) Accelerated essential hypertension Tobacco abuse Opioid use disorder Lupus (systemic lupus erythematosus) Leukocytosis Bacteremia Left tibial fracture Acute renal failure superimposed on chronic kidney disease Cocaine abuse CKD (chronic kidney disease) Antiphospholipid antibody syndrome MDD (major depressive disorder), recurrent episode, moderate Opioid use disorder, severe, dependence Cocaine use disorder Cellulitis Substance abuse Seizures Candidemia Opioid use disorder, severe, dependence PTSD (post-traumatic stress disorder) Bipolar disorder Opiate abuse, continuous Pulmonary emboli DVT (deep venous thrombosis) Sander filter in place Pneumonia Lupus Surgical History History of appendectomy Hx of splenectomy Social History Social History Household Members: Children Housing: Apartment Housing Other:: lIVING IN A Program House Do you presently have visiting nurse or other home services: No (states she fired them) Alcohol intake: never Patient Tobacco Use Status: Never used Tobacco Tobacco use type: Cigarette Cigarettes Per Day: 2 Years Smoked: 24 e-Cigarette/Vaping Use: Never Used Second Hand Smoke Exposure: No Substance Use Type: Crack/Cocaine Advance Directives Date on File: 02/14/21 service: No Current occupational status: employed and student Sexual orientation: Did not discuss Cognitive needs: No Hearing needs: No Vision needs: No Physical Exam ED Vital Signs: Vital Signs - 24 hr 07/27/24 13:34 Temperature 99.0 F Pulse Rate 86 Respiratory Rate 16 Blood Pressure 149/90 H Pulse Oximetry 96 Oxygen Delivery Method Room Air BMI result Body Mass Index 23.8 Course Course Course Narrative: RME, this is a rapid medical exam performed by Seb Moseley please refer to primary provider for complete H&P- 43 year old female with past medical history significant for end-stage renal disease on dialysis, chronic liver disease, heart failure, pulmonary hypertension, lupus, antiphospholipid syndrome on Coumadin presents for evaluation of bilateral leg wounds which are chronic but she reports worsening pain and drainage. She has large eschars to both legs. She also reports a fall yesterday and bilateral flank pain. She has large echymosis to bilateral lumbar regions. Medications Administered Discontinued Medications Generic Name Dose Route Start Last Admin Trade Name Freq PRN Reason Stop Dose Admin Acetaminophen 650 mg 07/27/24 16:50 08/01/24 20:03 Acetaminophen 325 Mg Tablet PO 650 mg Q6H PRN Administration Pain, Mild 1-3,fever,headache Amlodipine Besylate 10 mg 07/28/24 09:00 08/02/24 08:36 Amlodipine Besylate 10 Mg Tablet PO 10 mg DAILY SOPHIE Administration Protocol Bupropion HCl 300 mg 07/28/24 09:00 08/02/24 08:36 Bupropion Hcl Xl 300 Mg Tab.Er.24h PO 300 mg DAILY SOPHIE Administration Calcitriol 0.25 mcg 07/28/24 19:39 07/28/24 20:31 Calcitriol 0.25 Mcg Capsule PO 0.25 mcg TUTHSA SOPHIE Administration Ceftriaxone Sodium 1 gm 07/30/24 10:00 08/02/24 09:07 Ceftriaxone Sodium 1 Gm Vial IVPUSH 1 gm Q24H SOPHIE Administration Cinacalcet 30 mg 07/30/24 09:00 08/02/24 09:07 Cinacalcet Hcl 30 Mg Tablet PO 30 mg TuThSa SOPHIE Administration Clonidine HCl 0.2 mg 07/27/24 21:00 08/01/24 20:02 Clonidine Hcl 0.2 Mg Tablet PO 0.2 mg BEDTIME SOPHIE Administration Protocol Cyanocobalamin 100 mcg 07/28/24 09:00 08/02/24 08:36 Cyanocobalamin (Vitamin B-12) 100 Mcg Tablet PO 100 mcg DAILY SOPHIE Administration Doxepin HCl 10 mg 07/27/24 21:00 08/01/24 19:50 Doxepin Hcl 10 Mg Capsule PO 10 mg BEDTIME SOPHIE Administration Ergocalciferol 1,250 mcg 07/29/24 09:00 07/29/24 08:39 Ergocalciferol (Vitamin D2) 1,250 Mcg Capsule PO 1,250 mcg Fr@0900 SOPHIE Administration Furosemide 60 mg 07/31/24 10:07 07/31/24 11:35 Furosemide 100 Mg/10 Ml Vial IVPUSH 07/31/24 10:08 60 mg ONCE ONE Administration Protocol Gabapentin 600 mg 07/27/24 21:00 08/02/24 08:36 Gabapentin 600 Mg Tablet PO 600 mg BID SOPHIE Administration Heparin Sodium (Porcine) 5,000 unit 07/27/24 17:00 08/02/24 08:45 Heparin Sodium,Porcine 5,000 Unit/Ml Vial SUBCUT Not Given Q8H SOPHIE Heparin Sodium (Porcine) 5,000 unit 08/01/24 06:00 08/01/24 16:17 Heparin Sodium,Porcine 5,000 Unit/Ml Vial INTRACATH 08/01/24 06:01 Not Given ONCE ONE Hydromorphone HCl 0.5 mg 07/27/24 16:16 07/27/24 16:32 Hydromorphone Hcl 0.5 Mg/0.5 Ml Syringe IVPUSH 07/27/24 16:17 0.5 mg ONCE ONE Administration Protocol Hydromorphone HCl 0.5 mg 07/27/24 16:56 07/28/24 09:56 Hydromorphone Hcl 1 Mg/Ml Syringe IVPUSH 0.5 mg Q4H PRN Administration Pain, Severe (Pain Scale 7-10) Protocol Hydromorphone HCl 1 mg 07/28/24 13:55 07/29/24 06:30 Hydromorphone Hcl 1 Mg/Ml Syringe IVPUSH 1 mg Q3H PRN Administration Pain, Severe (Pain Scale 7-10) Protocol Hydromorphone HCl 1 mg 07/29/24 03:58 07/29/24 04:11 Hydromorphone Hcl 1 Mg/Ml Syringe IVPUSH 07/29/24 03:59 1 mg ONCE ONE Administration Protocol Hydromorphone HCl 1 mg 07/29/24 09:15 08/02/24 17:44 Hydromorphone Hcl 1 Mg/Ml Syringe IVPUSH 1 mg Q2H PRN Administration Pain, Severe (Pain Scale 7-10) Protocol Hydroxyzine HCl 50 mg 07/27/24 19:39 08/02/24 14:00 Hydroxyzine Hcl 50 Mg Tablet PO 50 mg TID PRN Administration Anxiety Vancomycin HCl 1,000 mg/ 270 mls @ 270 mls/hr 07/27/24 15:17 07/27/24 16:26 Sodium Chloride IV 07/27/24 16:16 Not Given ONCE ONE Cefepime HCl 2 gm in 50 mls @ 100 mls/hr 07/27/24 15:18 07/27/24 16:10 Maxipime IV 07/27/24 15:47 Infused ONCE ONE Infusion Vancomycin HCl 1,000 mg/ 535 mls @ 267.5 mls/hr 07/27/24 15:24 07/27/24 18:45 Vancomycin HCl 750 mg/ Sodium IV 07/27/24 17:23 Infused Chloride ONCE ONE Infusion Acetaminophen 1,000 mg in 100 mls @ 400 mls/hr 07/27/24 16:16 07/27/24 16:55 Ofirmev IV 07/27/24 16:30 Infused ONCE ONE Infusion Cefepime HCl 1 gm/ Sodium 50 mls @ 100 mls/hr 07/28/24 15:00 07/29/24 15:25 Chloride IV Infused Q24H SOPHIE Infusion Vancomycin HCl 500 mg/ Sodium 110 mls @ 110 mls/hr 07/28/24 16:00 07/28/24 16:19 Chloride IV Infused Q24H SOPHIE Infusion Sodium Thiosulfate 12.5 gm/ 200 mls @ 400 mls/hr 07/28/24 15:30 07/28/24 17:54 Sodium Chloride IV 07/28/24 16:29 Infused Q30M SOPHIE Infusion Vancomycin HCl 500 mg/ Sodium 110 mls @ 110 mls/hr 07/31/24 17:00 07/31/24 18:55 Chloride IV 07/31/24 17:59 Infused ONCE ONE Infusion Methadone HCl 100 mg 07/28/24 09:00 08/02/24 08:36 Methadone Hcl 20 Mg/2 Ml Oral.Conc PO 100 mg DAILY SOPHIE Administration Methadone HCl 95 mg 07/27/24 21:00 08/01/24 19:53 Methadone Hcl 20 Mg/2 Ml Oral.Conc PO 95 mg BEDTIME SOPHIE Administration Morphine Sulfate 4 mg 07/27/24 15:21 07/27/24 15:31 Morphine Sulfate 4 Mg/Ml Cartridge IVPUSH 07/27/24 15:22 4 mg ONCE ONE Administration Protocol Multivitamins/Vitamin C 1 tab 07/28/24 09:00 08/02/24 08:36 Multivitamin Tablet PO 1 tab DAILY SOPHIE Administration Nystatin 200,000 unit 08/01/24 13:00 08/02/24 12:40 Nystatin Oral Susp 500,000 Unit/5 Ml Oral.Susp PO 200,000 unit QID SOPHIE Administration Protocol Omeprazole 20 mg 07/28/24 06:30 08/02/24 05:12 Omeprazole 20 Mg Capsule.Dr PO 20 mg DAILY@0630 [facility] Administration Oxycodone HCl 5 mg 07/27/24 17:01 07/29/24 03:46 Oxycodone Hcl Immed Release 5 Mg Tablet PO 5 mg Q6H PRN Administration Pain, Moderate(Pain Scale 4-6) Quetiapine Fumarate 50 mg 07/27/24 19:39 07/28/24 23:39 Quetiapine Fumarate 50 Mg Tablet PO 50 mg TID PRN Administration Anxiety Sodium Chloride 3 ml 07/28/24 00:00 08/02/24 17:02 0.9 % Sodium Chloride Flush 3 Ml Syringe IVFLUSH Not Given QSHIFT [facility] Topiramate 100 mg 07/27/24 21:00 08/02/24 08:36 Topiramate 100 Mg Tablet PO 100 mg BID SOPHIE Administration Trazodone HCl 100 mg 07/27/24 19:39 07/28/24 23:38 Trazodone Hcl 100 Mg Tablet PO 100 mg BEDTIME PRN Administration Insomnia Warfarin Sodium 2.5 mg 07/28/24 18:00 07/28/24 17:40 Warfarin Sodium 2.5 Mg Tablet PO 2.5 mg DAILY@1800 SOPHIE Administration Warfarin Sodium 2.5 mg 07/30/24 18:00 08/01/24 17:32 Warfarin Sodium 2.5 Mg Tablet PO Not Given DAILY@1800 [facility] Warfarin Sodium 5 mg 07/29/24 18:00 07/29/24 17:31 Warfarin Sodium 5 Mg Tablet PO 07/29/24 18:01 5 mg DAILY@1800 ONE Administration Medical Decision Making Lab Data 08/02/24 08:22 08/02/24 08:21 Labs: Lab Results 07/27/24 07/27/24 Range/Units 14:53 14:54 WBC 21.9 H (4.8-10.8) X10*3/uL RBC 2.79 L (4.20-5.50) X10*6/uL Hgb 8.4 L (12.0-16.0) g/dl Hct 27.6 L (37.0-47.0) % MCV 98.9 H (80.0-98.0) fL MCH 30.1 (27.0-33.0) pg MCHC 30.4 L (31.0-35.0) g/dl RDW 23.2 H (11.0-16.0) % Plt Count 226 (160-400) X10*3/uL MPV 11.7 (9.4-12.3) fL Immature Gran % (Auto) 1.2 H (0.0-0.4) % Neut % (Auto) 85.2 H (45-73) % Lymph % (Auto) 3.8 L (20-40) % Jackson % (Auto) 8.5 (2-11) % Eos % (Auto) 1.0 (0-4) % Baso % (Auto) 0.3 (0-2) % Lymph # (Auto) 0.8 L (1.2-4.9) X10*3/uL Jackson # (Auto) 1.9 H (0.1-1.2) X10*3/uL Eos # (Auto) 0.2 (0.0-0.4) X10*3/uL Baso # (Auto) 0.1 (0.0-0.2) X10*3/uL Abs Immat Gran (auto) 0.27 H (0.00-0.03) X10*3/uL Absolute Neuts (auto) 18.6 H (2.0-8.3) x10*3/uL Absolute Nucleated RBC 0.070 H (0.0-0.012) X10*3/uL Nucleated RBC % (auto) 0.3 H (0.0-0.2) /100WBC Smear Tech's Comments VERIFIED ESR 82 H (0-20) MM/HR PT 16.6 H D (10.9-12.4) SEC INR 1.4 H (0.9-1.1) Sodium 133 L (135-145) mmol/L Potassium 5.1 (3.3-5.1) mmol/L Chloride 101 (96-108) mmol/L Carbon Dioxide 25 (22-29) mmol/L Anion Gap 12 (12-20) BUN 56 H (9-16) mg/dL Creatinine 4.45 H* (0.5-1.4) mg/dL Estim Creat Clear Calc 16.2 Estimated GFR 11 Random Glucose 83 (60-115) mg/dL Lactic Acid 1.1 (0.5-2.0) mmol/L Calcium 8.0 L (8.4-10.2) mg/dL Phosphorus 6.1 H (2.7-4.5) mg/dL Magnesium 2.0 (1.6-2.6) mg/dL Total Bilirubin 0.5 (0.0-1.0) mg/dL AST 27 (5-31) U/L ALT 24 (0-31) U/L Alkaline Phosphatase 309 H (39-117) U/L Total Creatine Kinase 14 L (26-140) U/L C-Reactive Protein 18.72 H (< or = 0.50) mg/dL Total Protein 7.4 (6.5-8.0) g/dL Albumin 2.4 L (3.5-5.0) g/dL Lipase 12 (8-78) U/L Beta HCG, Quant < 2 mIU/mL Ethyl Alcohol < 10 mg/dL Discharge Plan Discharge Clinical Impression: Wounds, multiple open, lower extremity Leukocytosis Qualifiers: Leukocytosis type: unspecified Qualified Code(s): D72.829 - Elevated white blood cell count, unspecified Renal failure Qualifiers: Renal failure chronicity: chronic Chronic kidney disease stage: on chronic dialysis Qualified Code(s): N18.6 - End stage renal disease Patient Disposition: Admitted As Inpatient Interventions: Admission Worksheet (ED) Last Done: 07/28/24 07:56 Discharge Date/Time: 07/28/24 08:27
[2024-07-27 14:47] VITALS: BP 164/110; PULSE 84; RESP 20; TEMP 36.8; O2SAT 100
[2024-07-27 15:00] LABS: Basophils Absolute Auto 0.1 X10*3/uL (0.0-0.2); Basophils Percent Auto 0.3 % (0-2); Eosinophils Absolute Auto 0.2 X10*3/uL (0.0-0.4); Hematocrit 27.6 % (37.0-47.0); Hemoglobin 8.4 g/dl (12.0-16.0); Imm Gran Abs Auto 0.27 X10*3/uL (0.00-0.03); Imm Gran Pct Auto 1.2 % (0.0-0.4); Lymphocytes Absolute Auto 0.8 X10*3/uL (1.2-4.9); Lymphocytes Percent Auto 3.8 % (20-40); MANUAL DIFF FLAG SCAN; Mean Corpuscular HGB Conc 30.4 g/dl (31.0-35.0); Mean Corpuscular Hemoglobin 30.1 pg (27.0-33.0); Mean Corpuscular Volume 98.9 fL (80.0-98.0); Mean Platelet Volume 11.7 fL (9.4-12.3); Monocytes Absolute Auto 1.9 X10*3/uL (0.1-1.2); Monocytes Percent Auto 8.5 % (2-11); NRBC Pct Auto 0.3 /100WBC (0.0-0.2); Neutrophils Absolute Auto 18.6 x10*3/uL (2.0-8.3); Neutrophils Percent Auto 85.2 % (45-73); Platelet Count 226 X10*3/uL (160-400); Red Blood Count 2.79 X10*6/uL (4.20-5.50); Red Cell Distribution Width 23.2 % (11.0-16.0); SCAN SMEAR FLAG 1; White Blood Count 21.9 X10*3/uL (4.8-10.8)
--- NOTE | 2024-07-27 15:02 | ED_ITS ---
HPI - General Adult General Chief complaint: Skin/Abscess/Foreign Body Stated complaint: R and L Leg Infection- Puss Time Seen by Provider: 07/27/24 15:00 Source: patient Limitations: no limitations History of Present Illness HPI narrative: this is a 43 years old female patient presented to the emergency department with lower extremity wound. She has a multiple medical problems which include chronic kidney disease on hemodialysis she has has dialysis scheduled tomorrow. She has a history of drug abuse in the past she states she has not been a using any drugs. Denies any fever chills vomiting and diarrhea Onset (ago): day(s) (2) Location: lower extremity Radiation: non-radiation Severity: severe Quality: burning Pain Consistency: constant Relieving factors: none Exacerbating factors: none Related Data Home Medications ?Medication ?Instructions ?Recorded ?Confirmed methadone 10 mg/mL oral 95 mg PO BEDTIME 02/12/22 06/30/24 concentrate (Methadose) methadone 10 mg/mL oral concentrate 100 mg PO DAILY 05/30/24 06/30/24 Previous Rx's ?Medication ?Instructions ?Recorded multivitamin 1 tab PO DAILY #30 tabs 02/26/22 acetaminophen 325 mg tablet 650 mg (2 x 325 mg) PO Q6H PRN 06/15/24 Headache/Pain Mild Scale (1-3) #90 tabs albuterol sulfate 90 mcg/actuation 2 puff inhalation RQ4H PRN 06/15/24 aerosol inhaler (Ventolin HFA) Wheezing #1 inhaler amlodipine 10 mg tablet 10 mg PO DAILY 30 days #30 tabs 06/15/24 bupropion HCl 300 mg 24 hr tablet, 300 mg PO DAILY #30 tabs 06/15/24 extended release calcitriol 0.25 mcg capsule 0.25 mcg PO TUTHSA #30 caps 06/15/24 clonidine HCl 0.1 mg tablet 0.1 mg PO BID #60 tabs 06/15/24 clonidine HCl 0.2 mg tablet 0.2 mg PO BEDTIME #30 tabs 06/15/24 cyanocobalamin (vitamin B-12) 100 100 mcg PO DAILY #30 tabs 06/15/24 mcg tablet (Vitamin B-12) ergocalciferol (vitamin D2) 1,250 1,250 mcg PO Fr@0900 #8 caps 06/15/24 mcg (50,000 unit) capsule (Vitamin D2) gabapentin 600 mg tablet 600 mg PO BID 30 days #60 tabs 06/15/24 hydroxyzine pamoate 50 mg capsule 50 mg PO TID PRN Anxiety #90 caps 06/15/24 lumateperone 42 mg capsule 42 mg PO DAILY #30 caps 06/15/24 (Caplyta) nystatin 100,000 unit/mL oral 4 ml PO DAILY PRN FLARES #60 mL 06/15/24 suspension omeprazole 20 mg capsule,delayed 20 mg PO DAILY@0630 #30 caps 06/15/24 release ondansetron 4 mg disintegrating 4 mg PO Q6H PRN Migraine Headache 06/15/24 tablet #60 tabs polyethylene glycol 3350 17 gram 17 g PO DAILY PRN Constipation #14 06/15/24 oral powder packet ea quetiapine 50 mg tablet 50 mg PO TID PRN Anxiety #90 tabs 06/15/24 topiramate 100 mg tablet 100 mg PO BID #60 tabs 06/15/24 trazodone 100 mg tablet 100 mg PO BEDTIME PRN Insomnia #30 06/15/24 tabs warfarin 2 mg tablet 2.5 mg (1.25 x 2 mg) PO DAILY@1800 06/15/24 #60 tabs cephalexin 500 mg capsule 500 mg PO Q6H #28 caps 06/22/24 walker #1 ea 06/24/24 Grab bar #2 ea 07/04/24 commode #1 ea 07/04/24 oxycodone 5 mg tablet 5 mg PO BID PRN Pain 12 days #24 07/19/24 tabs Allergies Allergy/AdvReac Type Severity Reaction Status Date / Time No Known Allergies Allergy Verified 07/27/24 13:47 Review of Systems 2 Constitutional: Constitutional: Denies fatigue and Denies fever(s) Respiratory: Respiratory: Reports no additional respiratory complaints Gastrointestinal: Gastrointestinal: Reports no additional gastrointestinal complaints Integumentary/Breasts: Skin/Breast: Reports other ( as history of present illness necrotic legs) Neurologic: Reports system reviewed and no additional complaints, except as documented Endocrine: Endocrine: Denies fatigue [facility] Past Medical History Attestation statement: The following information was validated with the patient. [facility] Narrative: chronic renal failure on hemodialysis Medical History (Updated 07/27/24 @ 15:47 by Miguel Lynch MD) Eschar of lower leg Chronic liver disease End stage renal disease on dialysis Secondary hyperparathyroidism (of renal origin) Accelerated essential hypertension Tobacco abuse Opioid use disorder Lupus (systemic lupus erythematosus) Leukocytosis Bacteremia Left tibial fracture Acute renal failure superimposed on chronic kidney disease Cocaine abuse CKD (chronic kidney disease) Antiphospholipid antibody syndrome MDD (major depressive disorder), recurrent episode, moderate Opioid use disorder, severe, dependence Cocaine use disorder Cellulitis Substance abuse Seizures Candidemia Opioid use disorder, severe, dependence PTSD (post-traumatic stress disorder) Bipolar disorder Opiate abuse, continuous Pulmonary emboli DVT (deep venous thrombosis) [place] filter in place Pneumonia Lupus Surgical History History of appendectomy Hx of splenectomy Social History Social History Household Members: None Housing: Apartment Housing Other:: lIVING IN A Program House Do you presently have visiting nurse or other home services: No Alcohol intake: never Patient Tobacco Use Status: Current everyday Tobacco user Tobacco use type: Cigarette Cigarettes Per Day: 2 Years Smoked: 24 Smoked in Last 30 Days: No e-Cigarette/Vaping Use: Never Used Second Hand Smoke Exposure: No Use of substances other than those prescribed or required for medical reasons: No Substance Use Type: Crack/Cocaine Advance Directives: Yes Advance Directives on File: Yes Advance Directives Date on File: 02/14/21 service: No Current occupational status: employed and student Sexual orientation: Did not discuss Cognitive needs: No Hearing needs: No Vision needs: No Physical Exam ED Vital Signs: Vital Signs - 24 hr 07/27/24 13:34 07/27/24 14:47 Temperature 99.0 F 98.3 F Pulse Rate 86 84 Respiratory Rate 16 20 Blood Pressure 149/90 H 164/110 H Pulse Oximetry 96 100 Oxygen Delivery Method Room Air Room Air BMI result Body Mass Index 23.8 no acute distress not toxic appearing Const General: cooperative, comfortable and no acute distress Nutritional Appearance: cachectic Orientation/consciousness: patient oriented x3 HENMT Head: Yes normal to inspection General nose exam: Normal external nose present Neck Neck: Yes normal visual inspection Chest Chest palpation & inspection: normal inspection of the chest Resp Effort & Inspection: normal respiratory effort Auscultation: clear to auscultation bilaterally Cardio Jugular venous distension: no JVD Rate: regular rate Rhythm: regular rhythm GI Inspection: Yes normal to inspection Palpation (GI): Soft to palpation, not firm and nontender Skin Other: lower extremity patient has necrotic area see picture, pulses are present. Neuro General: patient oriented x3 Extrem Other: See above picture pedal pulses are present. Course Reevaluation(s) Reevaluation #1: Established IV access under US RT brachial vein 20 G long catheter Time: 15:23 Reevaluation #2: seen by Dr Whalen surgery Time: 15:23 Reevaluation #3: spoke with Dr Salomon vascular Time: 15:27 Medications Administered Discontinued Medications Generic Name Dose Route Start Last Admin Trade Name Freq PRN Reason Stop Dose Admin Cefepime HCl 2 gm in 50 mls @ 100 mls/hr 07/27/24 15:18 07/27/24 15:32 Maxipime IV 07/27/24 15:47 100 mls/hr ONCE ONE Administration Morphine Sulfate 4 mg 07/27/24 15:21 07/27/24 15:31 Morphine Sulfate 4 Mg/Ml Cartridge IVPUSH 07/27/24 15:22 4 mg ONCE ONE Administration Protocol Procedures EJ/Peripheral Line Arm R: Time Out Performed: Yes Size (gauge): 20 IV Secured and Dressing Applied: Yes Patient Tolerated Procedure: well Additional Comments: I was asked by a nurse to establish IV difficult IV access. Under ultrasound-guided cannulated the right brachial vein with 20 gauge 1 in 3/4 in [place] catheter, blood was obtain, good flashes line was secured Medical Decision Making Medical Decision Making [facility] Narrative: Patient presented with necrotic area in the legs she has good perfusion good pulses, we will check blood work blood culture lactic acid we started IV antibiotic IV has been established we will consult surgery she will need likely a debridement Differential Diagnosis Differential Diagnoses: The differential diagnosis associated with the presentation includes infection/ necrosis Admission/Observation Consideration of admission/observation: Escalation of care including admission/observation considered Consult Healthcare Provider Management of the patient was discussed with: Security Services Specialist mony Lab Data [facility] Lab Attestation statement: I reviewed the patient's lab results. 07/27/24 14:53 07/27/24 14:53 Labs: Lab Results 07/27/24 07/27/24 Range/Units 14:53 14:54 WBC 21.9 H (4.8-10.8) X10*3/uL RBC 2.79 L (4.20-5.50) X10*6/uL Hgb 8.4 L (12.0-16.0) g/dl Hct 27.6 L (37.0-47.0) % MCV 98.9 H (80.0-98.0) fL MCH 30.1 (27.0-33.0) pg MCHC 30.4 L (31.0-35.0) g/dl RDW 23.2 H (11.0-16.0) % Plt Count 226 (160-400) X10*3/uL MPV 11.7 (9.4-12.3) fL Immature Gran % (Auto) 1.2 H (0.0-0.4) % Neut % (Auto) 85.2 H (45-73) % Lymph % (Auto) 3.8 L (20-40) % Stephens % (Auto) 8.5 (2-11) % Eos % (Auto) 1.0 (0-4) % Baso % (Auto) 0.3 (0-2) % Lymph # (Auto) 0.8 L (1.2-4.9) X10*3/uL Stephens # (Auto) 1.9 H (0.1-1.2) X10*3/uL Eos # (Auto) 0.2 (0.0-0.4) X10*3/uL Baso # (Auto) 0.1 (0.0-0.2) X10*3/uL Abs Immat Gran (auto) 0.27 H (0.00-0.03) X10*3/uL Absolute Neuts (auto) 18.6 H (2.0-8.3) x10*3/uL Absolute Nucleated RBC 0.070 H (0.0-0.012) X10*3/uL Nucleated RBC % (auto) 0.3 H (0.0-0.2) /100WBC Smear Tech's Comments VERIFIED PT 16.6 H D (10.9-12.4) SEC INR 1.4 H (0.9-1.1) Sodium 133 L (135-145) mmol/L Potassium 5.1 (3.3-5.1) mmol/L Chloride 101 (96-108) mmol/L Carbon Dioxide 25 (22-29) mmol/L Anion Gap 12 (12-20) BUN 56 H (9-16) mg/dL Creatinine 4.45 H* (0.5-1.4) mg/dL Estim Creat Clear Calc 16.2 Estimated GFR 11 Random Glucose 83 (60-115) mg/dL Lactic Acid 1.1 (0.5-2.0) mmol/L Calcium 8.0 L (8.4-10.2) mg/dL Magnesium 2.0 (1.6-2.6) mg/dL Total Bilirubin 0.5 (0.0-1.0) mg/dL AST 27 (5-31) U/L ALT 24 (0-31) U/L Alkaline Phosphatase 309 H (39-117) U/L Total Creatine Kinase 14 L (26-140) U/L C-Reactive Protein 18.72 H (< or = 0.50) mg/dL Total Protein 7.4 (6.5-8.0) g/dL Albumin 2.4 L (3.5-5.0) g/dL Lipase 12 (8-78) U/L Beta HCG, Quant < 2 mIU/mL Ethyl Alcohol < 10 mg/dL Discharge Plan Discharge Clinical Impression: Wounds, multiple open, lower extremity Leukocytosis Qualifiers: Leukocytosis type: unspecified Qualified Code(s): D72.829 - Elevated white blood cell count, unspecified Renal failure Qualifiers: Renal failure chronicity: chronic Chronic kidney disease stage: on chronic dialysis Qualified Code(s): N18.6 - End stage renal disease Prescriptions: No Action (DME) walker Misc See Rx Instructions .Route Qty: 1 0RF Rx Instructions: 4 wheeled walker with seat and brakes (DME) Grab bar Misc See Rx Instructions .Route Qty: 2 0RF Rx Instructions: Grab bars for shower (DME) commode Kit See Rx Instructions .Route Qty: 1 0RF Rx Instructions: 3 in 1 commode oxycodone 5 mg tablet 5 mg PO BID PRN (Reason: Pain) 12 Days Qty: 24 0RF Rx Instructions: NARCOTIC. can only take as prescribed, cannot share med, cannot drive while on med methadone [Methadose] 10 mg/mL concentrate 95 mg PO BEDTIME Rx Instructions: Partial Fill upon patient request. multivitamin Tablet 1 tab PO DAILY Qty: 30 1RF methadone 10 mg/mL Concentrate 100 mg PO DAILY ergocalciferol (vitamin D2) [Vitamin D2] 1,250 mcg (50,000 unit) Capsule 1,250 mcg PO Fr@0900 Qty: 8 0RF calcitriol 0.25 mcg Capsule 0.25 mcg PO TUTHSA Qty: 30 0RF nystatin 100,000 unit/mL suspension 4 ml PO DAILY PRN (Reason: FLARES) Qty: 60 0RF clonidine HCl 0.1 mg tablet 0.1 mg PO BID Qty: 60 0RF acetaminophen 325 mg Tablet 650 mg PO Q6H PRN (Reason: Headache/Pain Mild Scale (1-3)) Qty: 90 0RF gabapentin 600 mg tablet 600 mg PO BID 30 Days Qty: 60 1RF cyanocobalamin (vitamin B-12) [Vitamin B-12] 100 mcg Tablet 100 mcg PO DAILY Qty: 30 0RF hydroxyzine pamoate 50 mg capsule 50 mg PO TID PRN (Reason: Anxiety) Qty: 90 0RF clonidine HCl 0.2 mg tablet 0.2 mg PO BEDTIME Qty: 30 0RF Protocol: Hold for SBP< HOLD for SBP < : 90 amlodipine 10 mg tablet 10 mg PO DAILY 30 Days Qty: 30 1RF Protocol: Hold for SBP< HOLD for SBP < : 90 omeprazole 20 mg capsule,delayed release(DR/EC) 20 mg PO DAILY@0630 Qty: 30 0RF albuterol sulfate [Ventolin HFA] 90 mcg/actuation Hfa Aerosol Inhaler 2 puff inhalation RQ4H PRN (Reason: Wheezing) Qty: 1 1RF ondansetron 4 mg Tablet,Disintegrating 4 mg PO Q6H PRN (Reason: Migraine Headache) Qty: 60 1RF bupropion HCl 300 mg tablet extended release 24 hr 300 mg PO DAILY Qty: 30 0RF Caplyta 42 mg capsule 42 mg PO DAILY Qty: 30 0RF polyethylene glycol 3350 17 gram Powder In Packet 17 g PO DAILY PRN (Reason: Constipation) Qty: 14 0RF trazodone 100 mg Tablet 100 mg PO BEDTIME PRN (Reason: Insomnia) Qty: 30 0RF warfarin 2 mg Tablet 2.5 mg PO DAILY@1800 Qty: 60 0RF topiramate 100 mg tablet 100 mg PO BID Qty: 60 0RF quetiapine 50 mg tablet 50 mg PO TID PRN (Reason: Anxiety) Qty: 90 0RF cephalexin 500 mg capsule 500 mg PO Q6H Qty: 28 0RF Print Language: Telugu
[2024-07-27 15:07] LABS: INTERNATIONAL NORM RATIO 1.4 (0.9-1.1); Prothrombin Time 16.6 SEC (10.9-12.4)
--- NOTE | 2024-07-27 15:15 | P.CONGS_ITS ---
History of Present Illness Consult details Consult date: 07/27/24 Narrative: 43-year-old female with lower leg eschar on both sides. She says that she has noticed this discoloration of the skin on both sides for over a week now. She says this pain on both extremities although this pain appears to be chronic. She does not recall exactly how this car started. She denies having used IV drugs on both lower extremities. She has multiple medical problems including end-stage renal disease, on hemodialysis, chronic liver disease, depression, cocaine use disorder, and antiphospholipid antibody syndrome. She is currently on methadone and Coumadin. Review of Systems 2 Constitutional: Constitutional: Denies chills and Denies fever(s) Cardiovascular: Cardiovascular: Denies chest pain Respiratory: Respiratory: Denies cough Gastrointestinal: Gastrointestinal: Denies abdominal pain Genitourinary: Genitourinary: Denies difficulty voiding Comments: On hemodialysis [facility] Past Medical History Medical History Eschar of lower leg Chronic liver disease End stage renal disease on dialysis Secondary hyperparathyroidism (of renal origin) Accelerated essential hypertension Tobacco abuse Opioid use disorder Lupus (systemic lupus erythematosus) Leukocytosis Bacteremia Left tibial fracture Acute renal failure superimposed on chronic kidney disease Cocaine abuse CKD (chronic kidney disease) Antiphospholipid antibody syndrome MDD (major depressive disorder), recurrent episode, moderate Opioid use disorder, severe, dependence Cocaine use disorder Cellulitis Substance abuse Seizures Candidemia Opioid use disorder, severe, dependence PTSD (post-traumatic stress disorder) Bipolar disorder Opiate abuse, continuous Pulmonary emboli DVT (deep venous thrombosis) [place] filter in place Pneumonia Lupus Surgical History Surgical History History of appendectomy Hx of splenectomy Social History Social History Household Members: Children Housing: Apartment Housing Other:: lIVING IN A Program House Do you presently have visiting nurse or other home services: No (states she fired them) Alcohol intake: never Patient Tobacco Use Status: Never used Tobacco Tobacco use type: Cigarette Cigarettes Per Day: 2 Years Smoked: 24 e-Cigarette/Vaping Use: Never Used Second Hand Smoke Exposure: No Substance Use Type: Crack/Cocaine Advance Directives Date on File: 02/14/21 service: No Current occupational status: employed and student Sexual orientation: Did not discuss Cognitive needs: No Hearing needs: No Vision needs: No Meds Allergies Allergy/AdvReac Type Severity Reaction Status Date / Time No Known Allergies Allergy Verified 07/27/24 13:47 Home Medications ?Medication ?Instructions ?Recorded ?Confirmed ?Last Taken ?Type methadone 10 mg/mL oral 95 mg PO BEDTIME 02/12/22 07/27/24 07/27/24 History concentrate (Methadose) methadone 10 mg/mL oral concentrate 100 mg PO DAILY 05/30/24 07/27/24 07/27/24 History clonidine HCl 0.1 mg tablet 0.1 mg PO BID PRN Anxiety 07/27/24 07/27/24 07/27/24 History doxepin 10 mg capsule 10 mg PO BEDTIME 07/27/24 07/27/24 07/27/24 History meloxicam 15 mg tablet 15 mg PO DAILY 07/27/24 07/27/24 07/27/24 History warfarin 2.5 mg tablet 2.5 mg PO DAILY@1800 07/27/24 07/27/24 07/27/24 History Physical Exam 2 Vital Signs: Vital Signs: Last Vital Signs Temp 98.3 F 07/27/24 14:47 Pulse 84 07/27/24 14:47 Resp 20 07/27/24 14:47 BP 164/110 H 07/27/24 14:47 Pulse Ox 100 07/27/24 14:47 O2 Del Method Room Air 07/27/24 14:47 BMI result Body Mass Index 23.8 Const: Other: Anxious General: no acute distress Resp: Effort & Inspection: normal respiratory effort Cardio: Rate: regular rate GI: Palpation (GI): Soft to palpation Extrem: Other: Large area of eschar on both the left and the right lower legs, occupying the anterior, lateral and medial aspects, dry -see photograph Results Labs 07/30/24 17:55 07/31/24 15:15 Labs: Abnormal lab results 07/27/24 Range/Units 14:53 WBC 21.9 H (4.8-10.8) X10*3/uL RBC 2.79 L (4.20-5.50) X10*6/uL Hgb 8.4 L (12.0-16.0) g/dl Hct 27.6 L (37.0-47.0) % MCV 98.9 H (80.0-98.0) fL MCHC 30.4 L (31.0-35.0) g/dl RDW 23.2 H (11.0-16.0) % PT 16.6 H D (10.9-12.4) SEC INR 1.4 H (0.9-1.1) Short CBC 07/27/24 Range/Units 14:53 WBC 21.9 H (4.8-10.8) X10*3/uL Hgb 8.4 L (12.0-16.0) g/dl Hct 27.6 L (37.0-47.0) % Plt Count 226 (160-400) X10*3/uL All other labs normal. Assessment and Plan (1) Eschar of lower leg: Status: Acute She has a large area of dry eschar on anterior, medial and lateral aspects of the lower leg on both the left and the right side. There is no obvious spreading cellulitis The etiology of this is uncertain but she is known to inject drugs of abuse. Cutaneous eschar and necrosis may be rare complication of antiphospholipid antibody syndrome. This can happen with inadequate anticoagulation as well. This eschar may eventually need to be debrided although healing will be anticipated to be very prolonged and difficult. Amputation may also be necessary.I would however ask the opinion of vascular surgery to see if this is related to any vasculopathy. The patient does have multiple medical problems including end-stage renal disease, on hemodialysis, chronic liver disease, antiphospholipid antibody syndrome, previous DVTs. Procedures Date of Service Date of Service: 08/01/24
[2024-07-27 15:16] LABS: Lactic Acid 1.1 mmol/L (0.5-2.0)
--- NOTE | 2024-07-27 15:21 | PC.NURSE ---
pt is alert and oriented, skin pwd, respirations even and unlabored, pt reports bilateral leg wounds x3 days, both lower part of the leg are just covered in necrotic wounds and pt reports that this morning the wounds were weeping fluids, 10 pain
[2024-07-27 15:22] LABS: SLIDE REVIEW VERIFIED
[2024-07-27 15:23] LABS: HCG Quantitative < 2 mIU/mL
[2024-07-27] MEDS: Morphine Sulfate 4 MG/ML CARTRIDGE IVPUSH (15:31)
[2024-07-27] MEDS: cefEPime HCl/D5W 2 GM/50 ML PIGGYBACK IV (15:32)
[2024-07-27 15:34] LABS: Alanine Aminotransferase 24 U/L (0-31); Albumin Level 2.4 g/dL (3.5-5.0); Alkaline Phosphatase 309 U/L (39-117); Anion Gap 12 (12-20); Aspartate Amino Transferase 27 U/L (5-31); Bilirubin Total 0.5 mg/dL (0.0-1.0); Blood Urea Nitrogen 56 mg/dL (9-16); C Reactive Protein 18.72 mg/dL (< or = 0.50); Carbon Dioxide 25 mmol/L (22-29); Chloride 101 mmol/L (96-108); Creatinine Clr Calc Pharmacy 16.2; Estimated Glomerular Filt Rate 11; Ethanol < 10 mg/dL; Glucose Random 83 mg/dL (60-115); Lipase 12 U/L (8-78); Potassium 5.1 mmol/L (3.3-5.1); Sodium 133 mmol/L (135-145); Total Protein 7.4 g/dL (6.5-8.0)
--- NOTE | 2024-07-27 16:10 | PC.NURSE ---
called [facility] for methadone verification,
--- NOTE | 2024-07-27 16:10 | PM.IMHP ---
History of Present Illness Date of Service: 07/27/24 Attending physician on admission: Rell Li Chief Complaint: Lower leg wounds Pt is a 43-year-old female with a PMH significant for ESRD on HD, lupus, antiphospholipid syndrome with hx of DVTs on warfarin, anemia of chronic disease, hx of MRSA bacteremia, opioid use disorder on methadone, cocaine use disorder, HTN, GERD, and migraines who presents to the ED with worsening bilateral lower leg wounds x1 week. Overall pt is a poor and vague historian, and additional HPI supplemented by chart review. Pt reports when she was discharged from the hospital on 06/14/2024 she had to water blisters on both of her legs. was seen and evaluated by Wound Care who noted small 1 x 1 x 0.4 cm ulceration on right lower extremity who suggested treatment with nerve fiber Ag and cover with foam dressing with dressing changes every other day. Pt was sent home with VNA services who continued to Change dressing. Unclear when last VNA visit was. Pt reports approximately 1 week ago she noticed her wounds were growing and worsening. began having pus like drainage that smelled like peppermint . Some numbness and tingling in extremities , as well as subjective fever and chills. pt also complains of severe 12/10 pain with ambulation, but was noted to be ambulating on her own with her walker without difficulty from triage to ED room. Today pt comes at the request of her aunt who recently visited her. Pt reports compliance with all her home meds. Reports no recent drug use, although pt is unable to state either when she last injected or where on her body. In the ED pt was hypertensive up to 164/110, vitals otherwise WNL. Labs were significant for Leukocytosis of 21.9, Sodium 133, BUN 56, creatinine 4.45, alk-phos 309, CPK 14, CRP 18.72, ESR pending. INR subtherapeutic at 1.4. H&H stable at 8 0.4/27.6. Left and righttibia and fibula x-rays s/p internal fixation of left tibia butwithout evidence of osteomyelitis bilaterally. ED clinician used Doppler imaging to detect good pedal pulses.Pt was treated with morphine, cefepime, and vancomycin. Pt will be admitted to the hospital for treatment and further evaluation of worsening bilateral lower extremity wounds with cellulitis concerning for antiphospholipid syndrome skin necrosis vs calciphylaxis vs cocaine-induced necrosis. Review of Systems Review of Systems: Negative except for that which is stated in the HPI. [facility] Medical History Eschar of lower leg Chronic liver disease End stage renal disease on dialysis Secondary hyperparathyroidism (of renal origin) Accelerated essential hypertension Tobacco abuse Opioid use disorder Lupus (systemic lupus erythematosus) Leukocytosis Bacteremia Left tibial fracture Acute renal failure superimposed on chronic kidney disease Cocaine abuse CKD (chronic kidney disease) Antiphospholipid antibody syndrome MDD (major depressive disorder), recurrent episode, moderate Opioid use disorder, severe, dependence Cocaine use disorder Cellulitis Substance abuse Seizures Candidemia Opioid use disorder, severe, dependence PTSD (post-traumatic stress disorder) Bipolar disorder Opiate abuse, continuous Pulmonary emboli DVT (deep venous thrombosis) Sander filter in place Pneumonia Lupus Surgical History History of appendectomy Hx of splenectomy Social History Household Members: None Housing: Apartment Housing Other:: lIVING IN A Program House Do you presently have visiting nurse or other home services: No Alcohol intake: never Patient Tobacco Use Status: Current everyday Tobacco user Tobacco use type: Cigarette Cigarettes Per Day: 2 Years Smoked: 24 Smoked in Last 30 Days: No e-Cigarette/Vaping Use: Never Used Second Hand Smoke Exposure: No Use of substances other than those prescribed or required for medical reasons: No Substance Use Type: Crack/Cocaine Advance Directives: Yes Advance Directives on File: Yes Advance Directives Date on File: 02/14/21 service: No Current occupational status: employed and student Sexual orientation: Did not discuss Cognitive needs: No Hearing needs: No Vision needs: No Meds Allergies Allergy/AdvReac Type Severity Reaction Status Date / Time No Known Allergies Allergy Verified 07/27/24 13:47 Active Medications: Current Medications Vancomycin HCl 1,000 mg/Vancomycin HCl 750 mg/ Sodium Chloride 535 mls @ 267.5 mls/hr IV ONCE ONE Stop: 07/27/24 17:23 Home Medications ?Medication ?Instructions ?Recorded ?Confirmed ?Last Taken ?Type methadone 10 mg/mL oral 95 mg PO BEDTIME 09/14/22 02/26/25 02/26/25 History concentrate (Methadose) methadone 10 mg/mL oral concentrate 100 mg PO DAILY 05/30/24 07/27/24 07/27/24 History doxepin 10 mg capsule 10 mg PO BEDTIME 07/27/24 07/27/24 Unknown History meloxicam 15 mg tablet 15 mg PO DAILY 07/27/24 Unknown History Physical Exam Vital Signs and Narrative: Vital Signs: Last Vital Signs Temp 98.3 F 07/27/24 14:47 Pulse 84 07/27/24 14:47 Resp 20 07/27/24 14:47 BP 164/110 H 07/27/24 14:47 Pulse Ox 100 07/27/24 14:47 O2 Del Method Room Air 07/27/24 14:47 BMI result Body Mass Index 23.8 General: AOx3, no acute distress Resp: CTA bilaterally CVS: S1, S2, RRR GI: +BS, NT, no distention Skin: Warm, dry Neuro: Cranial nerves II-XII grossly intact bilaterally. Motor grossly intact bilaterally Extremities: Extensive bilateral eschar primarily on anterior shins with small amount of surrounding erythema, as pictured below. Pedal pulses difficult to palpate due to edema. Psych: Appropriate affect Results Labs 07/27/24 14:53 07/27/24 14:53 Labs: Laboratory Results - last 24 hr 07/27/24 07/27/24 14:53 14:54 MCV 98.9 H MCH 30.1 MCHC 30.4 L RDW 23.2 H Plt Count 226 MPV 11.7 Immature Gran % (Auto) 1.2 H Neut % (Auto) 85.2 H Lymph % (Auto) 3.8 L [place] % (Auto) 8.5 Eos % (Auto) 1.0 Baso % (Auto) 0.3 Lymph # (Auto) 0.8 L [place] # (Auto) 1.9 H Eos # (Auto) 0.2 Baso # (Auto) 0.1 Abs Immat Gran (auto) 0.27 H Absolute Neuts (auto) 18.6 H Absolute Nucleated RBC 0.070 H Nucleated RBC % (auto) 0.3 H Smear Tech's Comments VERIFIED PT 16.6 H D INR 1.4 H Anion Gap 12 Estim Creat Clear Calc 16.2 Estimated GFR 11 Random Glucose 83 Lactic Acid 1.1 Calcium 8.0 L Magnesium 2.0 Total Bilirubin 0.5 AST 27 ALT 24 Alkaline Phosphatase 309 H Total Creatine Kinase 14 L C-Reactive Protein 18.72 H Total Protein 7.4 Albumin 2.4 L Lipase 12 Beta HCG, Quant < 2 Ethyl Alcohol < 10 Imaging Radiologist's Impressions: Impressions Tibia/Fibula X-Ray 07/27/24 13:48 IMPRESSION: Status post internal fixation of the left tibia. No plain film evidence of osteomyelitis. If this is a clinical concern, three-phase bone scan or MRI is recommended. Electronically signed by: Matthew Mitchell MD 07/27/2024 02:16 PM EST RP Tibia/Fibula X-Ray 07/27/24 13:48 IMPRESSION: Status post internal fixation of the left tibia. No plain film evidence of osteomyelitis. If this is a clinical concern, three-phase bone scan or MRI is recommended. Electronically signed by: Matthew Mitchell MD 07/27/2024 02:16 PM EST RP Assessment and Plan (1) Eschar of lower leg: Status: Acute (2) Wounds, multiple open, lower extremity: Status: Acute Plan Pt is a 43-year-old female with a PMH significant for ESRD on HD, lupus, antiphospholipid syndrome with hx of DVTs on warfarin, anemia of chronic disease, hx of MRSA bacteremia, opioid use disorder on methadone, cocaine use disorder, HTN, GERD, and migraines who presents to the ED with worsening bilateral lower leg wounds x1 week. Pt will be admitted to the hospital for treatment and further evaluation of worsening bilateral lower extremity wounds with cellulitis concerning for antiphospholipid syndrome skin necrosis vs calciphylaxis vs cocaine-induced necrosis. Bilateral lower leg eschar and necrosis Unclear etiology: Antiphospholipid syndrome skin necrosis vs calcium anaphylaxis vs cocaine induced necrosis No sepsis: leukocytosis but no tachycardia, tachypnea, or fever; lactic acid WNL Will empirically cover with vancomycin and cefepime, started 07/27/2024 General surgery consult Vascular surgery consult Analgesics for pain management NPO after midnight for possible debridement in the morning Follow cultures ESRD on HD T//Thu Follow with [facility] No significant electrolyte abnormalities Nephrology consult Renal diet Follow BMP Antiphospholipid syndrome INR subtherapeutic at 1.4 Hold Coumadin due to possible surgical procedure HTN Continue amlodipine, clonidine Opiate use disorder Continue methadone Migraines Topirimate Mood disorder Continue home meds Full Code Attending:?Dr. Li DVT Prophylaxis: Heparin Pt will require a hospitalization of at least two nights for treatment of bilateral lower leg eschar and necrosis concerning for antiphospholipid syndrome skin necrosis vs calciphylaxis vs cocaine induced necrosis. Pt require hospital level care for administration of empiric IV antibiotics, IV analgesics, and specialist consultation with General surgery and vascular surgery for possible debridement or amputation. Quality Stroke Does the patient have a stroke diagnosis?: No VTE Prior VTE?: No VTE Risk Level:: Medical - moderate - high VTE Device Contraindication: Treatment Not Indicated VTE Drug Contraindication: N/A - Med Ordered
[2024-07-27] MEDS: HYDROmorphone HCl 0.5 MG/0.5 ML SYRINGE IVPUSH (16:32)
[2024-07-27] MEDS: vancomycin HCL 1,000 MG, vancomycin HCL 750 MG in 0.9 % Sodium Chloride 500 ML 267.5 MG IV (16:33)
[2024-07-27] MEDS: Acetaminophen 1,000 MG/100 ML PIGGYBACK 400 MG IV (16:37)
--- NOTE | 2024-07-27 17:05 | HE.PHANOTE ---
RE METHADONE patient confirmed to receive 100 mg of methadone every morning and 95 mg of methadone ever evening with [facility], last dosed 07/27/24, give 13 take home bottles.
--- OUTSIDE RECORDS SUMMARY | 2024-07-27 17:05 | XMS_ITS | Clinical Summary ---
Author Organization [facility] Address [address] [place] [address] Phone Care Team Providers Care Engineering Illustrator Name Role Phone Jose Rashid NP Primary Care Provider [phone] Allergies Active Allergy Reactions Criticality Noted Date [...] series) 10/14 Influenza Vaccine (#1) [address] [place] [address] ([id number]) [place] [id number] [facility] ([id number]) Care Teams Engineering Illustrator Relationship Specialty Start Date End Date Jose Rashid NP [address] [place] [id number] PCP - General 06/11/20
[2024-07-27 17:17] LABS: Phosphorus 6.1 mg/dL (2.7-4.5)
--- NOTE | 2024-07-27 17:39 | PHA.MEDREC ---
Addendum entered by Rhys Wilkinson [facility] 07/27/24 18:11: med rec reviewed Original Note: Pharmacy Consult ? Medication Reconciliation Pharmacy has completed the medication reconciliation. Spoke to patient to confirm med list. Patient stated she was just discharged and all her medications are the same. Patient was discharged from [facility] 05/29/25. Patient said yes to every thing on her med list. Patient states she is on Methadone 100 mg qam and Methadone 95 mg at bedtime from [facility] in [place]. patient said she took her morning dose and need still needs her evening dose, Warfarin 2.5 mg daily.
[2024-07-27] MEDS: HYDROmorphone HCl 1 MG/ML SYRINGE 0.5 MG IVPUSH (17:44)
[2024-07-27 17:51] LABS: Erythrocyte Sedimentation Rate 82 MM/HR (0-20)
[2024-07-27 17:54] VITALS: BP 164/103; PULSE 81; RESP 14; TEMP 36.8; O2SAT 93
[2024-07-27 20:07] VITALS: BP 164/105; PULSE 84; RESP 14; TEMP 36.8; O2SAT 95
[2024-07-27 20:35] VITALS: BP 165/103
[2024-07-27] MEDS: oxyCODONE HCl Immed Release 5 MG TABLET PO (20:35)
[2024-07-27] MEDS: Topiramate 100 MG TABLET PO (20:35)
[2024-07-27] MEDS: cloNIDine HCL 0.2 MG TABLET PO (20:35)
[2024-07-27] MEDS: Gabapentin 600 MG TABLET PO (20:35)
[2024-07-27] MEDS: Doxepin HCl 10 MG CAPSULE PO (20:36)
[2024-07-27] MEDS: methADONE HCl 20 MG/2 ML ORAL.CONC 95 MG PO (20:38)
--- NOTE | 2024-07-27 20:41 | PC.NURSE ---
pt medicated per mar, tolerated well whole with water. pt reporting 6/10 bilateral leg pain, pt medicated per mar.
[2024-07-27 22:35] VITALS: BP 168/105; PULSE 76; RESP 18; O2SAT 98
[2024-07-28] VITALS (11 sets, daily range): BP systolic 141–190; BP diastolic 76–118; PULSE 83–106; RESP 12–20; TEMP 36.6–38.4; O2SAT 92–99; BMI 25.2
--- NOTE | 2024-07-28 01:22 | PC.NURSE ---
provider aware of pt bp, no new orders at this time.
[2024-07-28] MEDS: HYDROmorphone HCl 1 MG/ML SYRINGE 0.5 MG IVPUSH ×3 (01:43→09:56)
--- NOTE | 2024-07-28 03:43 | PC.NURSE ---
Addendum entered by Jacklyn Correa 07/28/24 04:46: second set gram - rods Original Note: critical lab- first set blood culture + for gram negative rods, aware at this time.
--- NOTE | 2024-07-28 03:43 | PC.NURSE ---
this rn assessed patients urinary needs, pt states due to dialysis she makes little to no urine.
--- NOTE | 2024-07-28 04:35 | PC.NURSE ---
phlebotomy at bedside, pt refusing morning labs, aware.
--- NOTE | 2024-07-28 08:12 | PC.NURSE ---
Patient difficult stick , declining lab draws from phlebotomy. Attempted to draw off ultrasound guiced IV, unable to draw labs off line , phlebotomy notified
--- NOTE | 2024-07-28 08:14 | P.PNGS_ITS ---
Subjective Subjective Date of Service: 07/28/24 Interval history: States she is hungry and wants to eat Pain on both lower legs as baseline No fever overnight Physical Exam 2 Vital Signs: Vital Signs: Last Vital Signs Temp 97.9 F 07/28/24 07:57 Pulse 88 07/28/24 04:42 Resp 18 07/28/24 07:57 BP 162/109 H 07/28/24 07:57 Pulse Ox 98 07/28/24 04:42 O2 Del Method Room Air 07/28/24 07:57 BMI result Body Mass Index 23.8 Const: General: comfortable and no acute distress Resp: Effort & Inspection: normal respiratory effort Cardio: Rate: regular rate Extrem: Other: Eschar on both lower legs, on wide area, no spreading cellulitis Objective Data Active Medications Acetaminophen (Acetaminophen 325 Mg Tablet) 650 mg PO Q6H PRN PRN Reason: Pain, Mild 1-3,fever,headache Albuterol Sulfate (Albuterol Sulfate 90 Mcg 8 Gm Inhaler) 2 puff INHALE RQ4H PRN PRN Reason: Wheezing Amlodipine Besylate (Amlodipine Besylate 10 Mg Tablet) 10 mg PO DAILY [facility]; Protocol Bupropion HCl (Bupropion Hcl Xl 300 Mg Tab.Er.24h) 300 mg PO DAILY [facility] Calcitriol (Calcitriol 0.25 Mcg Capsule) 0.25 mcg PO TUTHSA [facility] Calcium Carbonate (Calcium Carbonate 750 Mg Tab.Chew) 750 mg PO Q4H PRN PRN Reason: Heartburn Clonidine HCl (Clonidine Hcl 0.1 Mg Tablet) 0.1 mg PO BID PRN; Protocol PRN Reason: Anxiety Clonidine HCl (Clonidine Hcl 0.2 Mg Tablet) 0.2 mg PO BEDTIME [facility]; Protocol Last Admin: 07/27/24 20:35 Dose: 0.2 mg Documented By: GLENDA Cyanocobalamin (Cyanocobalamin (Vitamin B-12) 100 Mcg Tablet) 100 mcg PO DAILY [facility] Doxepin HCl (Doxepin Hcl 10 Mg Capsule) 10 mg PO BEDTIME [facility] Last Admin: 07/27/24 20:36 Dose: 10 mg Documented By: GLENDA Ergocalciferol (Ergocalciferol (Vitamin D2) 1,250 Mcg Capsule) 1,250 mcg PO Fr@0900 [facility] Gabapentin (Gabapentin 600 Mg Tablet) 600 mg PO BID [facility] Last Admin: 07/27/24 20:35 Dose: 600 mg Documented By: GLENDA Heparin Sodium (Porcine) (Heparin Sodium,Porcine 5,000 Unit/Ml Vial) 5,000 unit SUBCUT Q8H [facility] Last Admin: 07/28/24 01:15 Dose: Not Given Documented By: GLENDA Non-Admin Reason: Patient Refused Hydromorphone HCl (Hydromorphone Hcl 1 Mg/Ml Syringe) 0.5 mg IVPUSH Q4H PRN; Protocol PRN Reason: Pain, Severe (Pain Scale 7-10) Last Admin: 07/28/24 06:03 Dose: 0.5 mg Documented By: GLENDA Hydroxyzine HCl (Hydroxyzine Hcl 50 Mg Tablet) 50 mg PO TID PRN PRN Reason: Anxiety Cefepime HCl 1 gm/ Sodium (Chloride) 50 mls @ 100 mls/hr IV Q24H [facility] Vancomycin HCl 500 mg/ Sodium (Chloride) 110 mls @ 110 mls/hr IV Q24H [facility] Magnesium Hydroxide (Milk Of Magnesia 30 Ml Oral.Susp) 30 ml PO DAILY PRN PRN Reason: Constipation Melatonin (Melatonin 3 Mg Tablet) 6 mg PO BEDTIME PRN PRN Reason: Insomnia Methadone HCl (Methadone Hcl 20 Mg/2 Ml Oral.Conc) 100 mg PO DAILY [facility] Methadone HCl (Methadone Hcl 20 Mg/2 Ml Oral.Conc) 95 mg PO BEDTIME [facility] Last Admin: 07/27/24 20:38 Dose: 95 mg Documented By: GLENDA Co-signed By: MICHAELLE Multivitamins/Vitamin C (Multivitamin Tablet) 1 tab PO DAILY [facility] Non-Formulary Medication (Lumateperone [Caplyta]) 42 mg PO DAILY [facility] Omeprazole (Omeprazole 20 Mg Capsule.Dr) 20 mg PO DAILY@0630 [facility] Last Admin: 07/28/24 06:05 Dose: Not Given Documented By: GLENDA Non-Admin Reason: Patient Refused Oxycodone HCl (Oxycodone Hcl Immed Release 5 Mg Tablet) 5 mg PO Q6H PRN PRN Reason: Pain, Moderate(Pain Scale 4-6) Last Admin: 07/27/24 20:35 Dose: 5 mg Documented By: GLENDA Pharmacy Consult (Consult Rx Vancomycin Dosing) 1 each MISCELLANE DAILY PRN PRN Reason: Consult order Polyethylene Glycol (Polyethylene Glycol 3350 17 Gm Powd.Pack) 17 gm PO DAILY PRN PRN Reason: Constipation Quetiapine Fumarate (Quetiapine Fumarate 50 Mg Tablet) 50 mg PO TID PRN PRN Reason: Anxiety Sodium Chloride (0.9 % Sodium Chloride Flush 3 Ml Syringe) 3 ml IVFLUSH QSHIFT [facility] Last Admin: 07/28/24 00:25 Dose: Not Given Documented By: GLENDA Non-Admin Reason: Previously Administered Topiramate (Topiramate 100 Mg Tablet) 100 mg PO BID [facility] Last Admin: 07/27/24 20:35 Dose: 100 mg Documented By: GLENDA Trazodone HCl (Trazodone Hcl 100 Mg Tablet) 100 mg PO BEDTIME PRN PRN Reason: Insomnia Labs 07/27/24 14:53 07/27/24 14:53 Labs: Laboratory Results - last 24 hr 07/27/24 07/27/24 14:53 14:54 MCV 98.9 H MCH 30.1 MCHC 30.4 L RDW 23.2 H Plt Count 226 MPV 11.7 Immature Gran % (Auto) 1.2 H Neut % (Auto) 85.2 H Lymph % (Auto) 3.8 L [place] % (Auto) 8.5 Eos % (Auto) 1.0 Baso % (Auto) 0.3 Lymph # (Auto) 0.8 L [place] # (Auto) 1.9 H Eos # (Auto) 0.2 Baso # (Auto) 0.1 Abs Immat Gran (auto) 0.27 H Absolute Neuts (auto) 18.6 H Absolute Nucleated RBC 0.070 H Nucleated RBC % (auto) 0.3 H Smear Tech's Comments VERIFIED ESR 82 H PT 16.6 H D INR 1.4 H Anion Gap 12 Estim Creat Clear Calc 16.2 Estimated GFR 11 Random Glucose 83 Lactic Acid 1.1 Calcium 8.0 L Phosphorus 6.1 H Magnesium 2.0 Total Bilirubin 0.5 AST 27 ALT 24 Alkaline Phosphatase 309 H Total Creatine Kinase 14 L C-Reactive Protein 18.72 H Total Protein 7.4 Albumin 2.4 L Lipase 12 Beta HCG, Quant < 2 Ethyl Alcohol < 10 Microbiology Microbiology Results: Microbiology 07/27/24 14:57 Blood Culture - Preliminary Blood - Venous Prelim: GNR Gram Stain only 07/27/24 14:53 Blood Culture - Preliminary Blood - Venous Prelim: GNR Gram Stain only Procedures Date of Service Date of Service: 07/28/24 Progress Note: A&P Assessment and plan (1) Eschar of lower leg: Status: Acute Assessment and Plan: Likely cutaneous necrosis, multifactorial - she has antiphospholipid antibody syndrome, end-stage renal disease Await input from vascular surgery Consider debridement down the line although she will be at risk for very poor healing with this On IV antibiotics for now Non septic looking Time Spent With Patient Time: Total time managing care of this patient today ____ minutes. Quality Stroke Does the patient have a stroke diagnosis?: No VTE Prior VTE?: No VTE Risk Level:: Medical - moderate - high VTE Device Contraindication: Treatment Not Indicated VTE Drug Contraindication: N/A - Med Ordered
[2024-07-28] MEDS: 0.9 % Sodium Chloride Flush 3 ML SYRINGE IVFLUSH ×2 (08:18→14:34)
[2024-07-28] MEDS: Acetaminophen 325 MG TABLET 650 MG PO ×2 (09:13→15:12)
[2024-07-28] MEDS: buPROPion HCl XL 300 MG TAB.ER.24H PO (09:13)
[2024-07-28] MEDS: amLODIPine Besylate 10 MG TABLET PO (09:13)
[2024-07-28] MEDS: Omeprazole 20 MG CAPSULE.DR PO (09:13)
[2024-07-28] MEDS: methADONE HCl 20 MG/2 ML ORAL.CONC 100 MG PO (09:14)
[2024-07-28] MEDS: Gabapentin 600 MG TABLET PO ×2 (09:14→20:31)
[2024-07-28] MEDS: Topiramate 100 MG TABLET PO ×2 (09:14→20:31)
[2024-07-28 09:28] LABS: Hematocrit 29.1 % (37.0-47.0); Hemoglobin 9.1 g/dl (12.0-16.0); Mean Corpuscular HGB Conc 31.3 g/dl (31.0-35.0); Mean Corpuscular Hemoglobin 30.2 pg (27.0-33.0); Mean Corpuscular Volume 96.7 fL (80.0-98.0); NRBC Pct Auto 0.4 /100WBC (0.0-0.2); PLT CLUMP 1; Red Blood Count 3.01 X10*6/uL (4.20-5.50); Red Cell Distribution Width 22.7 % (11.0-16.0)
--- NOTE | 2024-07-28 09:29 | PM.CNGS ---
History of Present Illness Consult details Consult date: 07/28/24 Narrative: We are consulted on Melita, a pleasant 43-year-old female patient, for concerns of bilateral lower extremity wounds. She presented to the ER yesterday with concerns of bilateral lower extremity wounds with increased pain. She has an extensive medical history including end-stage renal disease on hemodialysis on Thursday, and Thursday, antiphospholipid antibody syndrome, history of DVTs on Coumadin, opiate use disorder, chronic liver disease, migraines, MDD, hypertension, and generalized anxiety disorder. She states that these wounds on her lower extremities occurred approximately a week ago, she states she had some watery type blisters that just exploded and caused the extensive wounds. She also states that she had a fall 2 days ago which caused the wounds on her lower back bilaterally. She states that she was reaching for something in the Fridge when she lost her balance, and fell backwards onto her bottom. She did not hit her head and did not lose consciousness. She was not able to get up and had to call out to her neighbor to help her get up. She did not seek medical treatment at that time. She did have an appointment with our office on Thursday in the afternoon after her dialysis for an AV fistula placement appointment; however, she did not come. Review of Systems Constitutional: Constitutional: Reports as per HPI and Denies weakness ENT: Reports Normal hearing present and Denies dizziness Cardiovascular: Cardiovascular: Reports as per HPI, Denies chest pain, Denies chest pain at rest, Denies chest pain with activity, Denies dyspnea and Denies dyspnea on exertion Respiratory: Respiratory: Reports as per HPI, Denies cough, Denies dyspnea and Denies dyspnea on exertion Gastrointestinal: Gastrointestinal: Reports as per HPI, Denies abdominal pain, Denies nausea and Denies vomiting Musculoskeletal: Musculoskeletal: Denies numbness Integumentary/Breasts: Skin/Breast: Reports as per HPI, Denies erythema and Denies wounds Neurologic: Reports Normal hearing present, Denies dizziness, Denies numbness, Denies Sensory deficit (Neuro) and Denies weakness Psychiatric: Psychiatric: Reports no additional psychiatric complaints Endocrine: Endocrine: Reports no additional endocrine complaints PMFSH Past Medical History Medical History Eschar of lower leg Chronic liver disease End stage renal disease on dialysis Secondary hyperparathyroidism (of renal origin) Accelerated essential hypertension Tobacco abuse Opioid use disorder Lupus (systemic lupus erythematosus) Leukocytosis Bacteremia Left tibial fracture Acute renal failure superimposed on chronic kidney disease Cocaine abuse CKD (chronic kidney disease) Antiphospholipid antibody syndrome MDD (major depressive disorder), recurrent episode, moderate Opioid use disorder, severe, dependence Cocaine use disorder Cellulitis Substance abuse Seizures Candidemia Opioid use disorder, severe, dependence PTSD (post-traumatic stress disorder) Bipolar disorder Opiate abuse, continuous Pulmonary emboli DVT (deep venous thrombosis) [place] filter in place Pneumonia Lupus Surgical History Surgical History History of appendectomy Hx of splenectomy Social History Social History Household Members: None Housing: Apartment Housing Other:: lIVING IN A Program House Do you presently have visiting nurse or other home services: No Alcohol intake: never Patient Tobacco Use Status: Never used Tobacco Tobacco use type: Cigarette Cigarettes Per Day: 2 Years Smoked: 24 e-Cigarette/Vaping Use: Never Used Second Hand Smoke Exposure: No Substance Use Type: Crack/Cocaine Advance Directives Date on File: 02/14/21 service: No Current occupational status: employed and student Sexual orientation: Did not discuss Cognitive needs: No Hearing needs: No Vision needs: No Meds Allergies Allergy/AdvReac Type Severity Reaction Status Date / Time No Known Allergies Allergy Verified 07/27/24 13:47 Active Medications: Current Medications Acetaminophen (Acetaminophen 325 Mg Tablet) 650 mg PO Q6H PRN PRN Reason: Pain, Mild 1-3,fever,headache Last Admin: 07/28/24 09:13 Dose: 650 mg Albuterol Sulfate (Albuterol Sulfate 90 Mcg 8 Gm Inhaler) 2 puff INHALE RQ4H PRN PRN Reason: Wheezing Amlodipine Besylate (Amlodipine Besylate 10 Mg Tablet) 10 mg PO DAILY [facility]; Protocol Last Admin: 07/28/24 09:13 Dose: 10 mg Bupropion HCl (Bupropion Hcl Xl 300 Mg Tab.Er.24h) 300 mg PO DAILY [facility] Last Admin: 07/28/24 09:13 Dose: 300 mg Calcitriol (Calcitriol 0.25 Mcg Capsule) 0.25 mcg PO TUTHSA [facility] Calcium Carbonate (Calcium Carbonate 750 Mg Tab.Chew) 750 mg PO Q4H PRN PRN Reason: Heartburn Clonidine HCl (Clonidine Hcl 0.1 Mg Tablet) 0.1 mg PO BID PRN; Protocol PRN Reason: Anxiety Clonidine HCl (Clonidine Hcl 0.2 Mg Tablet) 0.2 mg PO BEDTIME [facility]; Protocol Last Admin: 07/27/24 20:35 Dose: 0.2 mg Cyanocobalamin (Cyanocobalamin (Vitamin B-12) 100 Mcg Tablet) 100 mcg PO DAILY [facility] Last Admin: 07/28/24 09:14 Dose: Not Given Doxepin HCl (Doxepin Hcl 10 Mg Capsule) 10 mg PO BEDTIME [facility] Last Admin: 07/27/24 20:36 Dose: 10 mg Ergocalciferol (Ergocalciferol (Vitamin D2) 1,250 Mcg Capsule) 1,250 mcg PO Fr@0900 [facility] Gabapentin (Gabapentin 600 Mg Tablet) 600 mg PO BID [facility] Last Admin: 07/28/24 09:14 Dose: 600 mg Heparin Sodium (Porcine) (Heparin Sodium,Porcine 5,000 Unit/Ml Vial) 5,000 unit SUBCUT Q8H [facility] Last Admin: 07/28/24 09:14 Dose: Not Given Hydromorphone HCl (Hydromorphone Hcl 1 Mg/Ml Syringe) 0.5 mg IVPUSH Q4H PRN; Protocol PRN Reason: Pain, Severe (Pain Scale 7-10) Last Admin: 07/28/24 06:03 Dose: 0.5 mg Hydroxyzine HCl (Hydroxyzine Hcl 50 Mg Tablet) 50 mg PO TID PRN PRN Reason: Anxiety Cefepime HCl 1 gm/ Sodium (Chloride) 50 mls @ 100 mls/hr IV Q24H [facility] Vancomycin HCl 500 mg/ Sodium (Chloride) 110 mls @ 110 mls/hr IV Q24H [facility] Magnesium Hydroxide (Milk Of Magnesia 30 Ml Oral.Susp) 30 ml PO DAILY PRN PRN Reason: Constipation Melatonin (Melatonin 3 Mg Tablet) 6 mg PO BEDTIME PRN PRN Reason: Insomnia Methadone HCl (Methadone Hcl 20 Mg/2 Ml Oral.Conc) 100 mg PO DAILY [facility] Last Admin: 07/28/24 09:14 Dose: 100 mg Methadone HCl (Methadone Hcl 20 Mg/2 Ml Oral.Conc) 95 mg PO BEDTIME [facility] Last Admin: 07/27/24 20:38 Dose: 95 mg Multivitamins/Vitamin C (Multivitamin Tablet) 1 tab PO DAILY [facility] Last Admin: 07/28/24 09:25 Dose: Not Given Non-Formulary Medication (Lumateperone [Caplyta]) 42 mg PO DAILY [facility] Omeprazole (Omeprazole 20 Mg Capsule.Dr) 20 mg PO DAILY@0630 [facility] Last Admin: 07/28/24 09:13 Dose: 20 mg Oxycodone HCl (Oxycodone Hcl Immed Release 5 Mg Tablet) 5 mg PO Q6H PRN PRN Reason: Pain, Moderate(Pain Scale 4-6) Last Admin: 07/27/24 20:35 Dose: 5 mg Pharmacy Consult (Consult Rx Vancomycin Dosing) 1 each MISCELLANE DAILY PRN PRN Reason: Consult order Polyethylene Glycol (Polyethylene Glycol 3350 17 Gm Powd.Pack) 17 gm PO DAILY PRN PRN Reason: Constipation Quetiapine Fumarate (Quetiapine Fumarate 50 Mg Tablet) 50 mg PO TID PRN PRN Reason: Anxiety Sodium Chloride (0.9 % Sodium Chloride Flush 3 Ml Syringe) 3 ml IVFLUSH QSHIFT [facility] Last Admin: 07/28/24 08:18 Dose: 3 ml Topiramate (Topiramate 100 Mg Tablet) 100 mg PO BID [facility] Last Admin: 07/28/24 09:14 Dose: 100 mg Trazodone HCl (Trazodone Hcl 100 Mg Tablet) 100 mg PO BEDTIME PRN PRN Reason: Insomnia Home Medications ?Medication ?Instructions ?Recorded ?Confirmed ?Last Taken ?Type methadone 10 mg/mL oral 95 mg PO BEDTIME 02/12/22 07/27/24 07/27/24 History concentrate (Methadose) methadone 10 mg/mL oral concentrate 100 mg PO DAILY 05/30/24 07/27/24 07/27/24 History clonidine HCl 0.1 mg tablet 0.1 mg PO BID PRN Anxiety 07/27/24 07/27/24 07/27/24 History doxepin 10 mg capsule 10 mg PO BEDTIME 07/27/24 07/27/24 07/27/24 History meloxicam 15 mg tablet 15 mg PO DAILY 07/27/24 07/27/24 07/27/24 History warfarin 2.5 mg tablet 2.5 mg PO DAILY@1800 07/27/24 07/27/24 07/27/24 History Physical Exam Vital Signs: Vital Signs: Last Vital Signs Temp 99.0 F 07/28/24 08:51 Pulse 106 H 07/28/24 08:51 Resp 20 07/28/24 08:51 BP 162/109 H 07/28/24 07:57 Pulse Ox 98 07/28/24 04:42 O2 Del Method Room Air 07/28/24 07:57 BMI result Body Mass Index 23.8 Const: General: comfortable and no acute distress Orientation/consciousness: patient oriented x3 HEENT: Ears: hearing grossly normal bilaterally Resp: Effort & Inspection: normal respiratory effort and able to speak in complete sentences Auscultation: clear to auscultation bilaterally Cardio: Rate: regular rate Rhythm: regular rhythm Heart sounds: S1 normal heart sound present and S2 normal heart sound present Bruits: no abdominal aortic bruits, no carotid bruits, no femoral bruits and no renal bruits GI: Palpation (GI): No Abdominal aortic bruit present Back/Spine/Pelvis: Other: Right lower back: From the spinal area down towards her right buttocks centrally there is dry eschar with some ulcerations noted. There is also on the most proximal section of the wound there is deep erythema/violaceous bruising noted towards the right flank that continues towards the front of her abdomen. At the most distal part there is some open ulcerations. Left lower back: On the left flank area there is an approximate 7 cm by 4 cm open ulcerations with bruising. On the lower portion towards the buttocks there is some bruising noted. Neuro: General: patient oriented x3 Cranial nerves: Yes Normal hearing present Sensory Exam: No Sensory deficit (Neuro) Extrem: Other: Right lower extremity: Dry eschar noted from the medial aspect to the site of the knee extending down towards the top of the ankle. Proximally couple of cm down from the tibial tuberosity there is also more dry eschar that ends at the lateral aspect of the lower leg. Centralized there is an open area pink/erythematous skin. Palpable DP pulses Left lower extremity: Dry eschar noted from just [id number] from the lateral to medial aspect down towards the ankle. Dry eschar noted approximately [address] On the most distal aspect there is some minor bleeding and erythematous wound base. Rolled wound edges, erythematous on the lateral aspect of the wound. Palpable DP pulses. Results Labs 07/27/24 14:53 07/27/24 14:53 Labs: Abnormal lab results 07/27/24 Range/Units 14:53 WBC 21.9 H (4.8-10.8) X10*3/uL RBC 2.79 L (4.20-5.50) X10*6/uL Hgb 8.4 L (12.0-16.0) g/dl Hct 27.6 L (37.0-47.0) % MCV 98.9 H (80.0-98.0) fL MCHC 30.4 L (31.0-35.0) g/dl RDW 23.2 H (11.0-16.0) % Immature Gran % (Auto) 1.2 H (0.0-0.4) % Neut % (Auto) 85.2 H (45-73) % Lymph % (Auto) 3.8 L (20-40) % Lymph # (Auto) 0.8 L (1.2-4.9) X10*3/uL [place] # (Auto) 1.9 H (0.1-1.2) X10*3/uL Abs Immat Gran (auto) 0.27 H (0.00-0.03) X10*3/uL Absolute Neuts (auto) 18.6 H (2.0-8.3) x10*3/uL Absolute Nucleated RBC 0.070 H (0.0-0.012) X10*3/uL Nucleated RBC % (auto) 0.3 H (0.0-0.2) /100WBC ESR 82 H (0-20) MM/HR PT 16.6 H D (10.9-12.4) SEC INR 1.4 H (0.9-1.1) Sodium 133 L (135-145) mmol/L BUN 56 H (9-16) mg/dL Creatinine 4.45 H* (0.5-1.4) mg/dL Calcium 8.0 L (8.4-10.2) mg/dL Phosphorus 6.1 H (2.7-4.5) mg/dL Alkaline Phosphatase 309 H (39-117) U/L Total Creatine Kinase 14 L (26-140) U/L C-Reactive Protein 18.72 H (< or = 0.50) mg/dL Albumin 2.4 L (3.5-5.0) g/dL Short CBC 07/27/24 Range/Units 14:53 WBC 21.9 H (4.8-10.8) X10*3/uL Hgb 8.4 L (12.0-16.0) g/dl Hct 27.6 L (37.0-47.0) % Plt Count 226 (160-400) X10*3/uL BMP 07/27/24 14:53 Sodium 133 L Potassium 5.1 Chloride 101 Carbon Dioxide 25 BUN 56 H Creatinine 4.45 H* Calcium 8.0 L Cardiac Enzymes 07/27/24 Range/Units 14:53 Total Creatine Kinase 14 L (26-140) U/L Liver Function 07/27/24 Range/Units 14:53 Total Bilirubin 0.5 (0.0-1.0) mg/dL AST 27 (5-31) U/L ALT 24 (0-31) U/L Alkaline Phosphatase 309 H (39-117) U/L Albumin 2.4 L (3.5-5.0) g/dL All other labs normal. Assessment and Plan (1) Wounds, multiple open, lower extremity: Qualifiers: Encounter type: initial encounter Laterality: right Qualified Code(s): S81.801A - Unspecified open wound, right lower leg, initial encounter Status: Acute Plan We are consulted on Melita, for bilateral lower extremity wounds. She states she has been going on for approximately a week now. She states she has had VNA services at home, which has been applying Zinc to them daily; she states this has been waking them hurt worse and is not healing them. She also states that she had a fall 2 days ago, where she hurt her lower back. She states she is in a lot of pain from both her legs and her back. She appears stable from a vascular standpoint at this point, she does have palpable DP pulses. We do have recommendations that she may benefit from debridement of the lower extremities, we are following with general surgery. There was no acute vascular surgery intervention at this point. We will continue to monitor. If there are any questions or concerns, please do not hesitate to reach out to us. Procedures Date of Service Date of Service: 07/28/24
[2024-07-28 09:48] LABS: Anion Gap 19 (12-20); Blood Urea Nitrogen 64 mg/dL (9-16); Carbon Dioxide 18 mmol/L (22-29); Chloride 103 mmol/L (96-108); Creatinine Clr Calc Pharmacy 14.9; Estimated Glomerular Filt Rate 10; Glucose Random 110 mg/dL (60-115); Potassium 5.9 mmol/L (3.3-5.1); Sodium 134 mmol/L (135-145)
[2024-07-28 10:05] LABS: Platelet Count 229 X10*3/uL (160-400); White Blood Count 26.5 X10*3/uL (4.8-10.8)
[2024-07-28 10:06] LABS: Mean Platelet Volume 11.8 fL (9.4-12.3)
--- NOTE | 2024-07-28 10:37 | HO.PM.IMPN ---
Subjective Subjective Date of Service: 07/28/24 Interval History: pain, malodorous lesions ENT Ears, Nose, Mouth, and Throat: Reports Normal hearing present Neurologic Neurologic: Reports Normal hearing present and Denies Sensory deficit (Neuro) Physical Exam Vital Signs: Vital Signs: Last Vital Signs Temp 99.0 F 07/28/24 08:51 Pulse 106 H 07/28/24 08:51 Resp 20 07/28/24 08:51 BP 149/79 H 07/28/24 09:41 Pulse Ox 99 07/28/24 09:41 O2 Del Method Room Air 07/28/24 09:41 BMI result Body Mass Index 23.8 Const: General: comfortable and no acute distress Orientation/consciousness: patient oriented x3 HEENT: Ears: hearing grossly normal bilaterally Resp: Effort & Inspection: normal respiratory effort and able to speak in complete sentences Auscultation: clear to auscultation bilaterally Cardio: Rate: regular rate Rhythm: regular rhythm Heart sounds: S1 normal heart sound present and S2 normal heart sound present Bruits: no abdominal aortic bruits, no carotid bruits, no femoral bruits and no renal bruits GI: Palpation (GI): No Abdominal aortic bruit present Back/Spine/Pelvis: Other: Right lower back: From the spinal area down towards her right buttocks centrally there is dry eschar with some ulcerations noted. There is also on the most proximal section of the wound there is deep erythema/violaceous bruising noted towards the right flank that continues towards the front of her abdomen. At the most distal part there is some open ulcerations. Left lower back: On the left flank area there is an approximate 7 cm by 4 cm open ulcerations with bruising. On the lower portion towards the buttocks there is some bruising noted. Neuro: General: patient oriented x3 Cranial nerves: Yes Normal hearing present Sensory Exam: No Sensory deficit (Neuro) Extrem: Other: Right lower extremity: Dry eschar noted from the medial aspect to the site of the knee extending down towards the top of the ankle. Proximally couple of cm down from the tibial tuberosity there is also more dry eschar that ends at the lateral aspect of the lower leg. Centralized there is an open area pink/erythematous skin. Palpable DP pulses Left lower extremity: Dry eschar noted from just [id number] from the lateral to medial aspect down towards the ankle. Dry eschar noted approximately 3/[address] On the most distal aspect there is some minor bleeding and erythematous wound base. Rolled wound edges, erythematous on the lateral aspect of the wound. Palpable DP pulses. Objective Data Active Medications Acetaminophen (Acetaminophen 325 Mg Tablet) 650 mg PO Q6H PRN PRN Reason: Pain, Mild 1-3,fever,headache Last Admin: 07/28/24 09:13 Dose: 650 mg Documented By: PORSCHE Albuterol Sulfate (Albuterol Sulfate 90 Mcg 8 Gm Inhaler) 2 puff INHALE RQ4H PRN PRN Reason: Wheezing Amlodipine Besylate (Amlodipine Besylate 10 Mg Tablet) 10 mg PO DAILY [facility]; Protocol Last Admin: 07/28/24 09:13 Dose: 10 mg Documented By: PORSCHE Bupropion HCl (Bupropion Hcl Xl 300 Mg Tab.Er.24h) 300 mg PO DAILY [facility] Last Admin: 07/28/24 09:13 Dose: 300 mg Documented By: PORSCHE Calcitriol (Calcitriol 0.25 Mcg Capsule) 0.25 mcg PO TUTHSA [facility] Calcium Carbonate (Calcium Carbonate 750 Mg Tab.Chew) 750 mg PO Q4H PRN PRN Reason: Heartburn Clonidine HCl (Clonidine Hcl 0.1 Mg Tablet) 0.1 mg PO BID PRN; Protocol PRN Reason: Anxiety Clonidine HCl (Clonidine Hcl 0.2 Mg Tablet) 0.2 mg PO BEDTIME [facility]; Protocol Last Admin: 07/27/24 20:35 Dose: 0.2 mg Documented By: GLENDA Cyanocobalamin (Cyanocobalamin (Vitamin B-12) 100 Mcg Tablet) 100 mcg PO DAILY [facility] Last Admin: 07/28/24 09:14 Dose: Not Given Documented By: PORSCHE Non-Admin Reason: Patient Refused Doxepin HCl (Doxepin Hcl 10 Mg Capsule) 10 mg PO BEDTIME [facility] Last Admin: 07/27/24 20:36 Dose: 10 mg Documented By: GLENDA Ergocalciferol (Ergocalciferol (Vitamin D2) 1,250 Mcg Capsule) 1,250 mcg PO Fr@0900 [facility] Gabapentin (Gabapentin 600 Mg Tablet) 600 mg PO BID [facility] Last Admin: 07/28/24 09:14 Dose: 600 mg Documented By: PORSCHE Heparin Sodium (Porcine) (Heparin Sodium,Porcine 5,000 Unit/Ml Vial) 5,000 unit SUBCUT Q8H [facility] Last Admin: 07/28/24 09:14 Dose: Not Given Documented By: PORSCHE Non-Admin Reason: Patient Refused Hydromorphone HCl (Hydromorphone Hcl 1 Mg/Ml Syringe) 0.5 mg IVPUSH Q4H PRN; Protocol PRN Reason: Pain, Severe (Pain Scale 7-10) Last Admin: 07/28/24 09:56 Dose: 0.5 mg Documented By: PORSCHE Hydroxyzine HCl (Hydroxyzine Hcl 50 Mg Tablet) 50 mg PO TID PRN PRN Reason: Anxiety Cefepime HCl 1 gm/ Sodium (Chloride) 50 mls @ 100 mls/hr IV Q24H [facility] Vancomycin HCl 500 mg/ Sodium (Chloride) 110 mls @ 110 mls/hr IV Q24H [facility] Magnesium Hydroxide (Milk Of Magnesia 30 Ml Oral.Susp) 30 ml PO DAILY PRN PRN Reason: Constipation Melatonin (Melatonin 3 Mg Tablet) 6 mg PO BEDTIME PRN PRN Reason: Insomnia Methadone HCl (Methadone Hcl 20 Mg/2 Ml Oral.Conc) 100 mg PO DAILY [facility] Last Admin: 07/28/24 09:14 Dose: 100 mg Documented By: PORSCHE Co-signed By: CATHY Methadone HCl (Methadone Hcl 20 Mg/2 Ml Oral.Conc) 95 mg PO BEDTIME [facility] Last Admin: 07/27/24 20:38 Dose: 95 mg Documented By: GLENDA Co-signed By: MICHAELLE Multivitamins/Vitamin C (Multivitamin Tablet) 1 tab PO DAILY [facility] Last Admin: 07/28/24 09:25 Dose: Not Given Documented By: PORSCHE Non-Admin Reason: Patient Refused Non-Formulary Medication (Lumateperone [Caplyta]) 42 mg PO DAILY [facility] Omeprazole (Omeprazole 20 Mg Capsule.Dr) 20 mg PO DAILY@0630 [facility] Last Admin: 07/28/24 09:13 Dose: 20 mg Documented By: PORSCHE Oxycodone HCl (Oxycodone Hcl Immed Release 5 Mg Tablet) 5 mg PO Q6H PRN PRN Reason: Pain, Moderate(Pain Scale 4-6) Last Admin: 07/27/24 20:35 Dose: 5 mg Documented By: GLENDA Pharmacy Consult (Consult Rx Vancomycin Dosing) 1 each MISCELLANE DAILY PRN PRN Reason: Consult order Polyethylene Glycol (Polyethylene Glycol 3350 17 Gm Powd.Pack) 17 gm PO DAILY PRN PRN Reason: Constipation Quetiapine Fumarate (Quetiapine Fumarate 50 Mg Tablet) 50 mg PO TID PRN PRN Reason: Anxiety Sodium Chloride (0.9 % Sodium Chloride Flush 3 Ml Syringe) 3 ml IVFLUSH QSHIFT [facility] Last Admin: 07/28/24 08:18 Dose: 3 ml Documented By: EDUARDO Topiramate (Topiramate 100 Mg Tablet) 100 mg PO BID [facility] Last Admin: 07/28/24 09:14 Dose: 100 mg Documented By: DABAileen Trazodone HCl (Trazodone Hcl 100 Mg Tablet) 100 mg PO BEDTIME PRN PRN Reason: Insomnia Labs 07/28/24 09:10 07/28/24 09:10 Labs: Laboratory Results - last 24 hr 07/27/24 07/27/24 07/28/24 14:53 14:54 09:10 MCV 98.9 H 96.7 MCH 30.1 30.2 MCHC 30.4 L 31.3 RDW 23.2 H 22.7 H Plt Count 226 229 MPV 11.7 11.8 Immature Gran % (Auto) 1.2 H Neut % (Auto) 85.2 H Lymph % (Auto) 3.8 L [place] % (Auto) 8.5 Eos % (Auto) 1.0 Baso % (Auto) 0.3 Lymph # (Auto) 0.8 L [place] # (Auto) 1.9 H Eos # (Auto) 0.2 Baso # (Auto) 0.1 Abs Immat Gran (auto) 0.27 H Absolute Neuts (auto) 18.6 H Absolute Nucleated RBC 0.070 H 0.100 H Nucleated RBC % (auto) 0.3 H 0.4 H Smear Tech's Comments VERIFIED ESR 82 H PT 16.6 H D INR 1.4 H Anion Gap 12 19 Estim Creat Clear Calc 16.2 14.9 Estimated GFR 11 10 Random Glucose 83 110 Lactic Acid 1.1 Calcium 8.0 L 8.0 L Phosphorus 6.1 H Magnesium 2.0 Total Bilirubin 0.5 AST 27 ALT 24 Alkaline Phosphatase 309 H Total Creatine Kinase 14 L C-Reactive Protein 18.72 H Total Protein 7.4 Albumin 2.4 L Lipase 12 Beta HCG, Quant < 2 Ethyl Alcohol < 10 Microbiology Microbiology Results: Microbiology 07/27/24 14:57 Blood Culture - Preliminary Blood - Venous Prelim: GNR Gram Stain only 07/27/24 14:53 Blood Culture - Preliminary Blood - Venous Prelim: GNR Gram Stain only Assessment and Plan (1) Antiphospholipid antibody syndrome: Status: Acute Plan 43F PMH ESRD, SLE, antiphospholipid syndrome, history of DVTs on warfarin, history of MRSA bacteremia, opiate dependence on methadone, cocaine use, hypertension, GERD, migraines presented with worsening bilateral lower leg wounds Multiple necrotic skin lesions 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 Complicated by Gram-negative aminta bacteremia Continue with pain meds, IV vancomycin cefepime, follow up cultures Plan for sodium thiosulfate End-stage renal disease Continue hemodialysis Antiphospholipid syndrome Continue Coumadin Hypertension Amlodipine, clonidine Opiate dependence Continue methadone DVT prophylaxis with heparin subQ Full code - poor prognosis reason for continued hospitalization: Bacteremia Quality Stroke Does the patient have a stroke diagnosis?: No VTE Prior VTE?: No VTE Risk Level:: Medical - moderate - high VTE Device Contraindication: Treatment Not Indicated VTE Drug Contraindication: N/A - Med Ordered
[2024-07-28 11:19] LABS: INTERNATIONAL NORM RATIO 1.4 (0.9-1.1); Prothrombin Time 16.3 SEC (10.9-12.4)
[2024-07-28] MEDS: QUEtiapine Fumarate 50 MG TABLET PO ×2 (12:33→23:39)
[2024-07-28] MEDS: oxyCODONE HCl Immed Release 5 MG TABLET PO ×2 (12:33→20:45)
[2024-07-28] MEDS: hydrOXYzine HCL 50 MG TABLET PO (12:34)
[2024-07-28 14:31] LABS: Vancomycin Random 13.9 mcg/mL (15-20)
[2024-07-28] MEDS: HYDROmorphone HCl 1 MG/ML SYRINGE IVPUSH ×2 (14:32→23:38)
[2024-07-28] MEDS: cefEPime HCl 1 GM in 0.9 % Sodium Chloride 50 ML IV (14:33)
--- NOTE | 2024-07-28 15:07 | P.CONNP_ITS ---
History of Present Illness Reason for Consult Consult date: 07/28/24 Reason for consult: End stage renal disease Chief Complaint Chief complaint: Bilateral lower leg necrosis and cellulitis History of Present Illness Narrative: 43-year-old female with a PMH significant for ESRD on HD, lupus, antiphospholipid syndrome with hx of DVTs on warfarin, anemia of chronic disease, hx of MRSA bacteremia, opioid use disorder on methadone, cocaine use disorder, HTN, GERD, and migraines who presents to the ED with worsening bilateral lower leg wounds x1 week. Overall pt is a poor and vague historian, and additional HPI supplemented by chart review. Pt reports when she was discharged from the hospital on 06/14/2024 she had to water blisters on both of her legs. was seen and evaluated by Wound Care who noted small 1 x 1 x 0.4 cm ulceration on right lower extremity who suggested treatment with nerve fiber Ag and cover with foam dressing with dressing changes every other day. Pt was sent home with VNA services who continued to Change dressing. Unclear when last VNA visit was. Pt reports approximately 1 week ago she noticed her wounds were growing and worsening. began having pus like drainage that smelled like peppermint . PMFSH Past Medical History Medical History Eschar of lower leg Chronic liver disease End stage renal disease on dialysis Secondary hyperparathyroidism (of renal origin) Accelerated essential hypertension Tobacco abuse Opioid use disorder Lupus (systemic lupus erythematosus) Leukocytosis Bacteremia Left tibial fracture Acute renal failure superimposed on chronic kidney disease Cocaine abuse CKD (chronic kidney disease) Antiphospholipid antibody syndrome MDD (major depressive disorder), recurrent episode, moderate Opioid use disorder, severe, dependence Cocaine use disorder Cellulitis Substance abuse Seizures Candidemia Opioid use disorder, severe, dependence PTSD (post-traumatic stress disorder) Bipolar disorder Opiate abuse, continuous Pulmonary emboli DVT (deep venous thrombosis) Sander filter in place Pneumonia Lupus Surgical History Surgical History History of appendectomy Hx of splenectomy Social History Social History Household Members: Children Housing: Apartment Housing Other:: lIVING IN A Program House Do you presently have visiting nurse or other home services: No (states she fired them) Alcohol intake: never Patient Tobacco Use Status: Never used Tobacco Tobacco use type: Cigarette Cigarettes Per Day: 2 Years Smoked: 24 e-Cigarette/Vaping Use: Never Used Second Hand Smoke Exposure: No Substance Use Type: Crack/Cocaine Advance Directives Date on File: 02/14/21 service: No Current occupational status: employed and student Sexual orientation: Did not discuss Cognitive needs: No Hearing needs: No Vision needs: No Meds Allergies Allergy/AdvReac Type Severity Reaction Status Date / Time No Known Allergies Allergy Verified 07/27/24 13:47 Active Medications: Current Medications Acetaminophen (Acetaminophen 325 Mg Tablet) 650 mg PO Q6H PRN PRN Reason: Pain, Mild 1-3,fever,headache Last Admin: 07/28/24 09:13 Dose: 650 mg Albuterol Sulfate (Albuterol Sulfate 90 Mcg 8 Gm Inhaler) 2 puff INHALE RQ4H PRN PRN Reason: Wheezing Amlodipine Besylate (Amlodipine Besylate 10 Mg Tablet) 10 mg PO DAILY [facility]; Protocol Last Admin: 07/28/24 09:13 Dose: 10 mg Bupropion HCl (Bupropion Hcl Xl 300 Mg Tab.Er.24h) 300 mg PO DAILY [facility] Last Admin: 07/28/24 09:13 Dose: 300 mg Calcitriol (Calcitriol 0.25 Mcg Capsule) 0.25 mcg PO TUTHSA [facility] Calcium Carbonate (Calcium Carbonate 750 Mg Tab.Chew) 750 mg PO Q4H PRN PRN Reason: Heartburn Clonidine HCl (Clonidine Hcl 0.1 Mg Tablet) 0.1 mg PO BID PRN; Protocol PRN Reason: Anxiety Clonidine HCl (Clonidine Hcl 0.2 Mg Tablet) 0.2 mg PO BEDTIME [facility]; Protocol Last Admin: 07/27/24 20:35 Dose: 0.2 mg Cyanocobalamin (Cyanocobalamin (Vitamin B-12) 100 Mcg Tablet) 100 mcg PO DAILY [facility] Last Admin: 07/28/24 09:14 Dose: Not Given Doxepin HCl (Doxepin Hcl 10 Mg Capsule) 10 mg PO BEDTIME [facility] Last Admin: 07/27/24 20:36 Dose: 10 mg Ergocalciferol (Ergocalciferol (Vitamin D2) 1,250 Mcg Capsule) 1,250 mcg PO Fr@0900 [facility] Gabapentin (Gabapentin 600 Mg Tablet) 600 mg PO BID [facility] Last Admin: 07/28/24 09:14 Dose: 600 mg Heparin Sodium (Porcine) (Heparin Sodium,Porcine 5,000 Unit/Ml Vial) 5,000 unit SUBCUT Q8H [facility] Last Admin: 07/28/24 09:14 Dose: Not Given Hydromorphone HCl (Hydromorphone Hcl 1 Mg/Ml Syringe) 1 mg IVPUSH Q3H PRN; Protocol PRN Reason: Pain, Severe (Pain Scale 7-10) Last Admin: 07/28/24 14:32 Dose: 1 mg Hydroxyzine HCl (Hydroxyzine Hcl 50 Mg Tablet) 50 mg PO TID PRN PRN Reason: Anxiety Last Admin: 07/28/24 12:34 Dose: 50 mg Cefepime HCl 1 gm/ Sodium (Chloride) 50 mls @ 100 mls/hr IV Q24H [facility] Last Admin: 07/28/24 14:33 Dose: 100 mls/hr Vancomycin HCl 500 mg/ Sodium (Chloride) 110 mls @ 110 mls/hr IV Q24H [facility] Magnesium Hydroxide (Milk Of Magnesia 30 Ml Oral.Susp) 30 ml PO DAILY PRN PRN Reason: Constipation Melatonin (Melatonin 3 Mg Tablet) 6 mg PO BEDTIME PRN PRN Reason: Insomnia Methadone HCl (Methadone Hcl 20 Mg/2 Ml Oral.Conc) 100 mg PO DAILY [facility] Last Admin: 07/28/24 09:14 Dose: 100 mg Methadone HCl (Methadone Hcl 20 Mg/2 Ml Oral.Conc) 95 mg PO BEDTIME [facility] Last Admin: 07/27/24 20:38 Dose: 95 mg Multivitamins/Vitamin C (Multivitamin Tablet) 1 tab PO DAILY [facility] Last Admin: 07/28/24 09:25 Dose: Not Given Non-Formulary Medication (Lumateperone [Caplyta]) 42 mg PO DAILY [facility] Omeprazole (Omeprazole 20 Mg Capsule.Dr) 20 mg PO DAILY@0630 [facility] Last Admin: 07/28/24 09:13 Dose: 20 mg Oxycodone HCl (Oxycodone Hcl Immed Release 5 Mg Tablet) 5 mg PO Q6H PRN PRN Reason: Pain, Moderate(Pain Scale 4-6) Last Admin: 07/28/24 12:33 Dose: 5 mg Pharmacy Consult (Consult Rx Vancomycin Dosing) 1 each MISCELLANE DAILY PRN PRN Reason: Consult order Polyethylene Glycol (Polyethylene Glycol 3350 17 Gm Powd.Pack) 17 gm PO DAILY PRN PRN Reason: Constipation Quetiapine Fumarate (Quetiapine Fumarate 50 Mg Tablet) 50 mg PO TID PRN PRN Reason: Anxiety Last Admin: 07/28/24 12:33 Dose: 50 mg Sodium Chloride (0.9 % Sodium Chloride Flush 3 Ml Syringe) 3 ml IVFLUSH QSHIFT [facility] Last Admin: 07/28/24 14:34 Dose: 3 ml Topiramate (Topiramate 100 Mg Tablet) 100 mg PO BID [facility] Last Admin: 07/28/24 09:14 Dose: 100 mg Trazodone HCl (Trazodone Hcl 100 Mg Tablet) 100 mg PO BEDTIME PRN PRN Reason: Insomnia Warfarin Sodium (Warfarin Sodium 2.5 Mg Tablet) 2.5 mg PO DAILY@1800 [facility] Home Medications ?Medication ?Instructions ?Recorded ?Confirmed ?Last Taken ?Type methadone 10 mg/mL oral 95 mg PO BEDTIME 02/12/22 07/27/24 07/27/24 History concentrate (Methadose) methadone 10 mg/mL oral concentrate 100 mg PO DAILY 05/30/24 07/27/24 07/27/24 History clonidine HCl 0.1 mg tablet 0.1 mg PO BID PRN Anxiety 07/27/24 07/27/24 07/27/24 History doxepin 10 mg capsule 10 mg PO BEDTIME 07/27/24 07/27/24 07/27/24 History meloxicam 15 mg tablet 15 mg PO DAILY 07/27/24 07/27/24 07/27/24 History warfarin 2.5 mg tablet 2.5 mg PO DAILY@1800 07/27/24 07/27/24 07/27/24 History Physical Exam Vital Signs: Last Vital Signs Temp 99.0 F 07/28/24 08:51 Pulse 106 H 07/28/24 08:51 Resp 20 07/28/24 08:51 BP 149/79 H 07/28/24 09:41 Pulse Ox 99 07/28/24 09:41 O2 Del Method Room Air 07/28/24 09:41 BMI result Body Mass Index 25.2 Const General: comfortable; No acute distress Orientation/consciousness: patient oriented x3 Eyes General: appearance normal, both eyes and all related structures Visual Matamoros: normal visual matamoros by confrontation Neck Neck: Yes supple and Yes no JVD Resp Effort & Inspection: normal respiratory effort and respiratory effort not decreased Auscultation: rhonchi Cardio Palpation: no palpable S3 and no palpable S4 Heart sounds: no rubs GI Inspection: Yes normal to inspection Palpation (GI): Soft to palpation Percussion: Yes normal to percussion Auscultation: normal bowel sounds General: Yes no CVA tenderness Back/Spine/Pelvis Back: no CVA tenderness Neuro General: patient oriented x3 and no focal motor deficits Extrem Other: Both lower extremities have wound with black eschar General: No clubbing and No edema Results Lab Results 07/30/24 17:55 07/31/24 15:15 Lab results: Chemistry 07/27/24 07/28/24 14:53 09:10 Sodium 133 L 134 L Potassium 5.1 5.9 H Carbon Dioxide 25 18 L BUN 56 H 64 H Creatinine 4.45 H* 4.85 H* Calcium 8.0 L 8.0 L Phosphorus 6.1 H Hematology 07/27/24 07/28/24 14:53 09:10 WBC 21.9 H 26.5 H Hgb 8.4 L 9.1 L Plt Count 226 229 Assessment and Plan (1) End stage renal disease on dialysis: Status: Acute (2) Antiphospholipid antibody syndrome: Status: Acute Plan 43-year-old woman with end stage renal disease on maintenance hemodialysis. She has wounds in both legs with black eschar. Clinically appears like calciphylaxis. Agree with other differential as noted in history and physical Plan optimize dialysis. Start sodium thiosulfate Optimize calcium phosphorus and PTH obtain biopsy Obtain vascular/surgical consult Procedures Date of Service Date of Service: 08/01/24
[2024-07-28] MEDS: vancomycin HCL 500 MG in 0.9 % Sodium Chloride 100 ML 110 MG IV (15:18)
--- NOTE | 2024-07-28 15:22 | PC.NURSE ---
Addendum entered by Marielos Strong RN 07/28/24 17:41: pt wakes up to name easily , pt able to take PO meds , but pt still appearing drowsy and falls asleep easy , pt asking for pain medicine . Original Note: 1500 pt unable to hold conversation , unable to finish sentence , pt unable to keep eyes open , this was changed from previous assessment . pt in dialysis in am until 1430 , when patient arrived back to unit , pt able to state she was in a lot of pain , and that she was hungry . vs taken at 1515 bp 143/76 , HR 96 , temp 101.2 , 92 on room air . Pt feels warm to touch . This Rn notified MD to come see patient . MD at bedside , states give Tylenol . iv abx hung as ordered .
--- NOTE | 2024-07-28 15:38 | MHC.RECOVRN ---
Attempted to meet with pt after receiving Addiction Medicine consult. Pt laying in bed, eyes closed, wakes to voice, appears sedated. Pt unable to finish sentences, repeats part of the sentence over and over. For example, when attempting to talk about her brother, repeats Bashir is... many times without finishing the sentence. 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 RN and provider aware. Discussed with Cecy Espino APRN.
--- NOTE | 2024-07-28 15:45 | MHC.CM.PN ---
Addendum entered by Kimberly Carroll 07/28/24 16:05: Per RN the patient stated that she fired her VNA. Original Note: IMM 07/28/24 Patient from home with VNA services for wound care. She states that she ambulates with a walker. She receives Methadone from [facility]. She has take home, 13 doses. She receives HD @ [facility]. Information for the CM assessment was gathered from speaking with the patient. She has become septic. She was not able to tolerate the interview. The Recovery nurse was present. She was able to provide information. A HCP is on file. DP Home with resumption of services. She will likely need STR, via BLS.
[2024-07-28] MEDS: SODIUM THIOSULFATE IV ×2 (16:25→17:23)
[2024-07-28] MEDS: SODIUM CHLORIDE 0.9% IV ×2 (16:25→17:23)
[2024-07-28] MEDS: Warfarin Sodium 2.5 MG TABLET PO (17:40)
[2024-07-28] MEDS: cloNIDine HCL 0.2 MG TABLET PO (20:31)
[2024-07-28] MEDS: calcitrioL 0.25 MCG CAPSULE PO (20:31)
[2024-07-28] MEDS: methADONE HCl 20 MG/2 ML ORAL.CONC 95 MG PO (20:32)
[2024-07-28] MEDS: Doxepin HCl 10 MG CAPSULE PO (20:32)
[2024-07-28] MEDS: traZODone HCL 100 MG TABLET PO (23:38)
[2024-07-29] VITALS (7 sets, daily range): BP systolic 122–195; BP diastolic 77–94; PULSE 81–95; RESP 16–18; TEMP 36.3–37.3; O2SAT 91–95
[2024-07-29] MEDS: HYDROmorphone HCl 1 MG/ML SYRINGE IVPUSH ×7 (03:18→20:58)
[2024-07-29] MEDS: hydrOXYzine HCL 50 MG TABLET PO ×2 (03:46→13:19)
[2024-07-29] MEDS: oxyCODONE HCl Immed Release 5 MG TABLET PO (03:46)
[2024-07-29] MEDS: Acetaminophen 325 MG TABLET 650 MG PO (03:46)
[2024-07-29 07:52] LABS: Anion Gap 21 (12-20); Blood Urea Nitrogen 39 mg/dL (9-16); Calcium 8.1 mg/dL (8.4-10.2); Creatinine Clr Calc Pharmacy 19.9; Estimated Glomerular Filt Rate 14; Glucose Random 114 mg/dL (60-115); Phosphorus 5.1 mg/dL (2.7-4.5)
[2024-07-29 08:03] LABS: Carbon Dioxide 18 mmol/L (22-29); Chloride 102 mmol/L (96-108); Potassium 4.5 mmol/L (3.3-5.1); Sodium 139 mmol/L (135-145)
[2024-07-29] MEDS: Ergocalciferol (Vitamin D2) 1,250 MCG CAPSULE 1250 MCG PO (08:39)
[2024-07-29] MEDS: buPROPion HCl XL 300 MG TAB.ER.24H PO (08:39)
[2024-07-29] MEDS: amLODIPine Besylate 10 MG TABLET PO (08:39)
[2024-07-29] MEDS: Multivitamin TABLET 1 TAB PO (08:39)
[2024-07-29] MEDS: Gabapentin 600 MG TABLET PO ×2 (08:40→20:59)
[2024-07-29] MEDS: 0.9 % Sodium Chloride Flush 3 ML SYRINGE IVFLUSH ×3 (08:40→21:00)
[2024-07-29] MEDS: Topiramate 100 MG TABLET PO ×2 (08:40→20:59)
[2024-07-29] MEDS: Cyanocobalamin (Vitamin B-12) 100 MCG TABLET PO (08:40)
--- NOTE | 2024-07-29 08:40 | PM.PNGS ---
Subjective Subjective Date of Service: 07/29/24 Interval history: Patient denies any new complaints Pain on both lower extremities as used well No fever reported Physical Exam Vital Signs: Vital Signs: Last Vital Signs Temp 97.4 F 07/29/24 07:31 Pulse 81 07/29/24 07:31 Resp 16 07/29/24 07:31 BP 122/94 H 07/29/24 07:31 Pulse Ox 95 07/29/24 07:31 O2 Del Method Room Air 07/29/24 07:31 BMI result Body Mass Index 25.2 Const: General: comfortable and no acute distress Resp: Effort & Inspection: normal respiratory effort Cardio: Rate: regular rate GI: Palpation (GI): Soft to palpation Extrem: Other: Eschar on both lower extremities, as previously documented Objective Data Active Medications Acetaminophen (Acetaminophen 325 Mg Tablet) 650 mg PO Q6H PRN PRN Reason: Pain, Mild 1-3,fever,headache Last Admin: 07/29/24 03:46 Dose: 650 mg Documented By: GERRY Albuterol Sulfate (Albuterol Sulfate 90 Mcg 8 Gm Inhaler) 2 puff INHALE RQ4H PRN PRN Reason: Wheezing Amlodipine Besylate (Amlodipine Besylate 10 Mg Tablet) 10 mg PO DAILY [facility]; Protocol Last Admin: 07/28/24 09:13 Dose: 10 mg Documented By: PORSCHE Bupropion HCl (Bupropion Hcl Xl 300 Mg Tab.Er.24h) 300 mg PO DAILY [facility] Last Admin: 07/28/24 09:13 Dose: 300 mg Documented By: PORSCHE Calcitriol (Calcitriol 0.25 Mcg Capsule) 0.25 mcg PO TUTHSA [facility] Last Admin: 07/28/24 20:31 Dose: 0.25 mcg Documented By: OSITO Calcium Carbonate (Calcium Carbonate 750 Mg Tab.Chew) 750 mg PO Q4H PRN PRN Reason: Heartburn Clonidine HCl (Clonidine Hcl 0.1 Mg Tablet) 0.1 mg PO BID PRN; Protocol PRN Reason: Anxiety Clonidine HCl (Clonidine Hcl 0.2 Mg Tablet) 0.2 mg PO BEDTIME [facility]; Protocol Last Admin: 07/28/24 20:31 Dose: 0.2 mg Documented By: OSITO Cyanocobalamin (Cyanocobalamin (Vitamin B-12) 100 Mcg Tablet) 100 mcg PO DAILY [facility] Last Admin: 07/28/24 09:14 Dose: Not Given Documented By: PORSCHE Non-Admin Reason: Patient Refused Doxepin HCl (Doxepin Hcl 10 Mg Capsule) 10 mg PO BEDTIME [facility] Last Admin: 07/28/24 20:32 Dose: 10 mg Documented By: OSITO Ergocalciferol (Ergocalciferol (Vitamin D2) 1,250 Mcg Capsule) 1,250 mcg PO Fr@0900 [facility] Gabapentin (Gabapentin 600 Mg Tablet) 600 mg PO BID [facility] Last Admin: 07/28/24 20:31 Dose: 600 mg Documented By: OSITO Heparin Sodium (Porcine) (Heparin Sodium,Porcine 5,000 Unit/Ml Vial) 5,000 unit SUBCUT Q8H [facility] Last Admin: 07/29/24 01:37 Dose: Not Given Documented By: GERRY Non-Admin Reason: Patient Refused Hydromorphone HCl (Hydromorphone Hcl 1 Mg/Ml Syringe) 1 mg IVPUSH Q3H PRN; Protocol PRN Reason: Pain, Severe (Pain Scale 7-10) Last Admin: 07/29/24 06:30 Dose: 1 mg Documented By: GERRY Hydroxyzine HCl (Hydroxyzine Hcl 50 Mg Tablet) 50 mg PO TID PRN PRN Reason: Anxiety Last Admin: 07/29/24 03:46 Dose: 50 mg Documented By: GERRY Cefepime HCl 1 gm/ Sodium (Chloride) 50 mls @ 100 mls/hr IV Q24H [facility] Last Infusion: 07/28/24 15:43 Dose: Infused Documented By: PORSCHE Vancomycin HCl 500 mg/ Sodium (Chloride) 110 mls @ 110 mls/hr IV Q24H [facility] Last Infusion: 07/28/24 16:19 Dose: Infused Documented By: PORSCHE Sodium Thiosulfate 12.5 gm/ (Sodium Chloride) 200 mls @ 400 mls/hr IV Q30M [facility] Stop: 07/30/24 16:44 Magnesium Hydroxide (Milk Of Magnesia 30 Ml Oral.Susp) 30 ml PO DAILY PRN PRN Reason: Constipation Melatonin (Melatonin 3 Mg Tablet) 6 mg PO BEDTIME PRN PRN Reason: Insomnia Methadone HCl (Methadone Hcl 20 Mg/2 Ml Oral.Conc) 100 mg PO DAILY [facility] Last Admin: 07/28/24 09:14 Dose: 100 mg Documented By: PORSCHE Co-signed By: CATHY Methadone HCl (Methadone Hcl 20 Mg/2 Ml Oral.Conc) 95 mg PO BEDTIME [facility] Last Admin: 07/28/24 20:32 Dose: 95 mg Documented By: OSITO Co-signed By: KI-DENNISZENick Multivitamins/Vitamin C (Multivitamin Tablet) 1 tab PO DAILY [facility] Last Admin: 07/28/24 09:25 Dose: Not Given Documented By: PORSCHE Non-Admin Reason: Patient Refused Non-Formulary Medication (Lumateperone [Caplyta]) 42 mg PO DAILY [facility] Omeprazole (Omeprazole 20 Mg Capsule.Dr) 20 mg PO DAILY@0630 [facility] Last Admin: 07/28/24 09:13 Dose: 20 mg Documented By: PORSCHE Oxycodone HCl (Oxycodone Hcl Immed Release 5 Mg Tablet) 5 mg PO Q6H PRN PRN Reason: Pain, Moderate(Pain Scale 4-6) Last Admin: 07/29/24 03:46 Dose: 5 mg Documented By: GERRY Pharmacy Consult (Consult Rx Vancomycin Dosing) 1 each MISCELLANE DAILY PRN PRN Reason: Consult order Polyethylene Glycol (Polyethylene Glycol 3350 17 Gm Powd.Pack) 17 gm PO DAILY PRN PRN Reason: Constipation Quetiapine Fumarate (Quetiapine Fumarate 50 Mg Tablet) 50 mg PO TID PRN PRN Reason: Anxiety Last Admin: 07/28/24 23:39 Dose: 50 mg Documented By: GERRY Sodium Chloride (0.9 % Sodium Chloride Flush 3 Ml Syringe) 3 ml IVFLUSH QSHIFT [facility] Last Admin: 07/29/24 01:35 Dose: Not Given Documented By: GERRY Non-Admin Reason: Previously Administered Topiramate (Topiramate 100 Mg Tablet) 100 mg PO BID [facility] Last Admin: 07/28/24 20:31 Dose: 100 mg Documented By: OSITO Trazodone HCl (Trazodone Hcl 100 Mg Tablet) 100 mg PO BEDTIME PRN PRN Reason: Insomnia Last Admin: 07/28/24 23:38 Dose: 100 mg Documented By: GERRY Warfarin Sodium (Warfarin Sodium 2.5 Mg Tablet) 2.5 mg PO DAILY@1800 [facility] Last Admin: 07/28/24 17:40 Dose: 2.5 mg Documented By: PORSCHE Labs 07/28/24 09:10 07/29/24 06:11 Labs: Laboratory Results - last 24 hr 07/28/24 07/28/24 07/28/24 09:10 11:04 13:59 MCV 96.7 MCH 30.2 MCHC 31.3 RDW 22.7 H Plt Count 229 MPV 11.8 Absolute Nucleated RBC 0.100 H Nucleated RBC % (auto) 0.4 H PT 16.3 H INR 1.4 H Anion Gap 19 Estim Creat Clear Calc 14.9 Estimated GFR 10 Random Glucose 110 Calcium 8.0 L Phosphorus PTH Intact Random Vancomycin 13.9 L 07/29/24 06:11 MCV MCH MCHC RDW Plt Count MPV Absolute Nucleated RBC Nucleated RBC % (auto) PT INR Anion Gap 21 H Estim Creat Clear Calc 19.9 Estimated GFR 14 Random Glucose 114 Calcium 8.1 L Phosphorus 5.1 H PTH Intact 325.0 H Random Vancomycin Microbiology Microbiology Results: Microbiology 07/27/24 14:53 Blood Culture - Preliminary Blood - Venous Gram negative aminta 07/27/24 14:57 Blood Culture - Preliminary Blood - Venous Gram negative aminta Procedures Date of Service Date of Service: 07/29/24 Progress Note: A&P Assessment and plan (1) Eschar of lower leg: Status: Acute Assessment and Plan: I had scheduled her for debridement of the eschar in the OR today I explained this to her but she says she is not ready to have this done today Refusing procedure and says that she might do it on Thursday Not septic looking for now and clinically looks well overall Vascular surgery input noted Time Spent With Patient Time: Total time managing care of this patient today ____ minutes. Quality Stroke Does the patient have a stroke diagnosis?: No VTE Prior VTE?: No VTE Risk Level:: Medical - moderate - high VTE Device Contraindication: Treatment Not Indicated VTE Drug Contraindication: N/A - Med Ordered
--- NOTE | 2024-07-29 09:18 | HO.PM.IMPN ---
Subjective Subjective Date of Service: 07/29/24 Interval History: pain, malodorous lesions ENT Ears, Nose, Mouth, and Throat: Reports Normal hearing present Neurologic Neurologic: Reports Normal hearing present and Denies Sensory deficit (Neuro) Physical Exam Vital Signs: Vital Signs: Last Vital Signs Temp 97.4 F 07/29/24 07:31 Pulse 81 07/29/24 07:31 Resp 16 07/29/24 07:31 BP 124/92 H 07/29/24 08:39 Pulse Ox 95 07/29/24 07:31 O2 Del Method Room Air 07/29/24 07:31 BMI result Body Mass Index 25.2 Const: General: comfortable and no acute distress Resp: Effort & Inspection: normal respiratory effort Cardio: Rate: regular rate GI: Palpation (GI): Soft to palpation Neuro: Cranial nerves: Yes Normal hearing present Sensory Exam: No Sensory deficit (Neuro) Extrem: Other: Eschar on both lower extremities, as previously documented Objective Data Active Medications Acetaminophen (Acetaminophen 325 Mg Tablet) 650 mg PO Q6H PRN PRN Reason: Pain, Mild 1-3,fever,headache Last Admin: 07/29/24 03:46 Dose: 650 mg Documented By: GERRY Albuterol Sulfate (Albuterol Sulfate 90 Mcg 8 Gm Inhaler) 2 puff INHALE RQ4H PRN PRN Reason: Wheezing Amlodipine Besylate (Amlodipine Besylate 10 Mg Tablet) 10 mg PO DAILY [facility]; Protocol Last Admin: 07/29/24 08:39 Dose: 10 mg Documented By: GEETHA Bupropion HCl (Bupropion Hcl Xl 300 Mg Tab.Er.24h) 300 mg PO DAILY [facility] Last Admin: 07/29/24 08:39 Dose: 300 mg Documented By: GEETHA Calcium Carbonate (Calcium Carbonate 750 Mg Tab.Chew) 750 mg PO Q4H PRN PRN Reason: Heartburn Clonidine HCl (Clonidine Hcl 0.1 Mg Tablet) 0.1 mg PO BID PRN; Protocol PRN Reason: Anxiety Clonidine HCl (Clonidine Hcl 0.2 Mg Tablet) 0.2 mg PO BEDTIME [facility]; Protocol Last Admin: 07/28/24 20:31 Dose: 0.2 mg Documented By: OSITO Cyanocobalamin (Cyanocobalamin (Vitamin B-12) 100 Mcg Tablet) 100 mcg PO DAILY [facility] Last Admin: 07/29/24 08:40 Dose: 100 mcg Documented By: GEETHA Doxepin HCl (Doxepin Hcl 10 Mg Capsule) 10 mg PO BEDTIME [facility] Last Admin: 07/28/24 20:32 Dose: 10 mg Documented By: OSITO Gabapentin (Gabapentin 600 Mg Tablet) 600 mg PO BID [facility] Last Admin: 07/29/24 08:40 Dose: 600 mg Documented By: GEETHA Heparin Sodium (Porcine) (Heparin Sodium,Porcine 5,000 Unit/Ml Vial) 5,000 unit SUBCUT Q8H [facility] Last Admin: 07/29/24 08:46 Dose: Not Given Documented By: GEETHA Non-Admin Reason: Patient Refused Hydromorphone HCl (Hydromorphone Hcl 1 Mg/Ml Syringe) 1 mg IVPUSH Q2H PRN; Protocol PRN Reason: Pain, Severe (Pain Scale 7-10) Hydroxyzine HCl (Hydroxyzine Hcl 50 Mg Tablet) 50 mg PO TID PRN PRN Reason: Anxiety Last Admin: 07/29/24 03:46 Dose: 50 mg Documented By: GERRY Cefepime HCl 1 gm/ Sodium (Chloride) 50 mls @ 100 mls/hr IV Q24H [facility] Last Infusion: 07/28/24 15:43 Dose: Infused Documented By: PORSCHE Vancomycin HCl 500 mg/ Sodium (Chloride) 110 mls @ 110 mls/hr IV Q24H [facility] Last Infusion: 07/28/24 16:19 Dose: Infused Documented By: PORSCHE Sodium Thiosulfate 12.5 gm/ (Sodium Chloride) 200 mls @ 400 mls/hr IV Q30M [facility] Stop: 07/30/24 16:44 Magnesium Hydroxide (Milk Of Magnesia 30 Ml Oral.Susp) 30 ml PO DAILY PRN PRN Reason: Constipation Melatonin (Melatonin 3 Mg Tablet) 6 mg PO BEDTIME PRN PRN Reason: Insomnia Methadone HCl (Methadone Hcl 20 Mg/2 Ml Oral.Conc) 100 mg PO DAILY [facility] Last Admin: 07/28/24 09:14 Dose: 100 mg Documented By: PORSCHE Co-signed By: CATHY Methadone HCl (Methadone Hcl 20 Mg/2 Ml Oral.Conc) 95 mg PO BEDTIME [facility] Last Admin: 07/28/24 20:32 Dose: 95 mg Documented By: OSITO Co-signed By: DOROTHY Multivitamins/Vitamin C (Multivitamin Tablet) 1 tab PO DAILY [facility] Last Admin: 07/29/24 08:39 Dose: 1 tab Documented By: GEETHA Non-Formulary Medication (Lumateperone [Caplyta]) 42 mg PO DAILY [facility] Omeprazole (Omeprazole 20 Mg Capsule.Dr) 20 mg PO DAILY@0630 [facility] Last Admin: 07/28/24 09:13 Dose: 20 mg Documented By: PORSCHE Oxycodone HCl (Oxycodone Hcl Immed Release 5 Mg Tablet) 5 mg PO Q6H PRN PRN Reason: Pain, Moderate(Pain Scale 4-6) Last Admin: 07/29/24 03:46 Dose: 5 mg Documented By: GERRY Pharmacy Consult (Consult Rx Vancomycin Dosing) 1 each MISCELLANE DAILY PRN PRN Reason: Consult order Polyethylene Glycol (Polyethylene Glycol 3350 17 Gm Powd.Pack) 17 gm PO DAILY PRN PRN Reason: Constipation Quetiapine Fumarate (Quetiapine Fumarate 50 Mg Tablet) 50 mg PO TID PRN PRN Reason: Anxiety Last Admin: 07/28/24 23:39 Dose: 50 mg Documented By: GERRY Sodium Chloride (0.9 % Sodium Chloride Flush 3 Ml Syringe) 3 ml IVFLUSH QSHIFT [facility] Last Admin: 07/29/24 08:40 Dose: 3 ml Documented By: GEETHA Topiramate (Topiramate 100 Mg Tablet) 100 mg PO BID [facility] Last Admin: 07/29/24 08:40 Dose: 100 mg Documented By: GEETHA Trazodone HCl (Trazodone Hcl 100 Mg Tablet) 100 mg PO BEDTIME PRN PRN Reason: Insomnia Last Admin: 07/28/24 23:38 Dose: 100 mg Documented By: GERRY Warfarin Sodium (Warfarin Sodium 2.5 Mg Tablet) 2.5 mg PO DAILY@1800 [facility] Last Admin: 07/28/24 17:40 Dose: 2.5 mg Documented By: PORSCHE Labs 07/28/24 09:10 07/29/24 06:11 Labs: Laboratory Results - last 24 hr 07/28/24 07/28/24 07/28/24 09:10 11:04 13:59 MCV 96.7 MCH 30.2 MCHC 31.3 RDW 22.7 H Plt Count 229 MPV 11.8 Absolute Nucleated RBC 0.100 H Nucleated RBC % (auto) 0.4 H PT 16.3 H INR 1.4 H Anion Gap 19 Estim Creat Clear Calc 14.9 Estimated GFR 10 Random Glucose 110 Calcium 8.0 L Phosphorus PTH Intact Random Vancomycin 13.9 L 07/29/24 06:11 MCV MCH MCHC RDW Plt Count MPV Absolute Nucleated RBC Nucleated RBC % (auto) PT INR Anion Gap 21 H Estim Creat Clear Calc 19.9 Estimated GFR 14 Random Glucose 114 Calcium 8.1 L Phosphorus 5.1 H PTH Intact 325.0 H Random Vancomycin Microbiology Microbiology Results: Microbiology 07/27/24 14:53 Blood Culture - Preliminary Blood - Venous Gram negative aminta 07/27/24 14:57 Blood Culture - Preliminary Blood - Venous Gram negative aminta Assessment and Plan (1) Antiphospholipid antibody syndrome: Status: Acute Plan 43F PMH ESRD, SLE, antiphospholipid syndrome, history of DVTs on warfarin, history of MRSA bacteremia, opiate dependence on methadone, cocaine use, hypertension, GERD, migraines presented with worsening bilateral lower leg wounds Multiple necrotic skin lesions 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 Complicated by sepsis due to Gram-negative aminta bacteremia Continue with pain meds, IV vancomycin cefepime, follow up cultures Plan for sodium thiosulfate pain control End-stage renal disease, hyperpth Continue hemodialysis stop vitd start sensipar Antiphospholipid syndrome Continue Coumadin though associated with calcuphylaxis, no alternative Hypertension Amlodipine, clonidine Opiate dependence Continue methadone DVT prophylaxis with heparin subQ Full code - poor prognosis reason for continued hospitalization: Bacteremia Quality Stroke Does the patient have a stroke diagnosis?: No VTE Prior VTE?: No VTE Risk Level:: Medical - moderate - high VTE Device Contraindication: Treatment Not Indicated VTE Drug Contraindication: N/A - Med Ordered
[2024-07-29] MEDS: methADONE HCl 20 MG/2 ML ORAL.CONC 100 MG PO (09:32)
--- NOTE | 2024-07-29 10:53 | HO.SKINPHOTO ---
Left hip Left hip Right hip Right hip
--- NOTE | 2024-07-29 12:12 | MHC.CM.PN ---
EMR reviewed and per MD rounds, pt is not medically cleared for discharge due to management of bacteremia.
--- NOTE | 2024-07-29 12:43 | P.PNNP_ITS ---
Subjective Subjective Date of Service: 07/29/24 Interval history: Has malodorous lesions; C/O pain in the legs. Due HD tomorrow Physical Exam 2 Vital Signs: Vital Signs: Last Vital Signs Temp 97.4 F 07/29/24 07:31 Pulse 81 07/29/24 07:31 Resp 16 07/29/24 07:31 BP 124/92 H 07/29/24 08:39 Pulse Ox 95 07/29/24 07:31 O2 Del Method Room Air 07/29/24 07:31 BMI result Body Mass Index 25.2 Const: General: no acute distress Orientation/consciousness: patient oriented x3 Eyes: EOM: EOMs intact bilaterally Neck: Neck: Yes supple Resp: Auscultation: diminished lung sounds Cardio: Rate: regular rate GI: Palpation (GI): Soft to palpation Neuro: General: patient oriented x3 and moves all extremities Objective Data Labs 07/28/24 09:10 07/29/24 06:11 Labs: Laboratory Results - last 24 hr 07/28/24 07/29/24 13:59 06:11 Sodium 139 Potassium 4.5 D Chloride 102 Carbon Dioxide 18 L Anion Gap 21 H BUN 39 H Creatinine 3.63 H Estim Creat Clear Calc 19.9 Estimated GFR 14 Random Glucose 114 Calcium 8.1 L Phosphorus 5.1 H PTH Intact 325.0 H Random Vancomycin 13.9 L Microbiology Microbiology Results: Microbiology 07/27/24 14:57 Blood - Venous Blood Culture - Preliminary Gram negative aminta 07/27/24 14:53 Blood - Venous Blood Culture - Preliminary Gram negative aminta Procedures Date of Service Date of Service: 07/29/24 Assessment & Plan Assessment and plan (1) End stage renal disease on dialysis: Status: Acute Plan Usually gets HD on TTS 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
[2024-07-29 13:32] LABS: Hematocrit 34.3 % (37.0-47.0); Hemoglobin 10.6 g/dl (12.0-16.0); Mean Corpuscular HGB Conc 30.9 g/dl (31.0-35.0); Mean Corpuscular Hemoglobin 29.7 pg (27.0-33.0); Mean Corpuscular Volume 96.1 fL (80.0-98.0); Mean Platelet Volume 12.3 fL (9.4-12.3); NRBC Pct Auto 0.5 /100WBC (0.0-0.2); Platelet Count 168 X10*3/uL (160-400); Red Blood Count 3.57 X10*6/uL (4.20-5.50); Red Cell Distribution Width 22.6 % (11.0-16.0); White Blood Count 20.4 X10*3/uL (4.8-10.8)
[2024-07-29 14:00] LABS: Vancomycin Random 16.2 mcg/mL (15-20)
[2024-07-29] MEDS: cefEPime HCl 1 GM in 0.9 % Sodium Chloride 50 ML IV (14:40)
--- NOTE | 2024-07-29 16:09 | HO.VASCPN ---
Subjective Subjective Date of Service: 08/01/24 Interval history: Melita is doing ok today. She continues with significant amounts of pain. She will be taken to the OR with Dr. Whalen for debridement of the bilateral lower extremity wounds. She denies any fever or chills today. She states she is not eating well but is drinking okay. Physical Exam Vital Signs: Vital Signs: Last Vital Signs Temp 99.1 F 07/29/24 15:47 Pulse 92 07/29/24 15:47 Resp 18 07/29/24 15:47 BP 195/91 H 07/29/24 15:47 Pulse Ox 91 L 07/29/24 15:47 O2 Del Method Room Air 07/29/24 15:47 BMI result Body Mass Index 25.2 Const: General: comfortable and no acute distress Orientation/consciousness: patient oriented x3 HEENT: Ears: hearing grossly normal bilaterally Resp: Effort & Inspection: normal respiratory effort and able to speak in complete sentences Auscultation: clear to auscultation bilaterally Cardio: Rate: regular rate Rhythm: regular rhythm Heart sounds: S1 normal heart sound present and S2 normal heart sound present Bruits: no abdominal aortic bruits, no carotid bruits, no femoral bruits and no renal bruits GI: Palpation (GI): No Abdominal aortic bruit present Neuro: General: patient oriented x3 Cranial nerves: Yes CN's II-XII intact bilaterally Extrem: Other: All wounds remain the same. Progress Note: A&P Assessment and plan (1) Wounds, multiple open, lower extremity: Status: Acute Assessment and Plan: Melita remains stable from a vascular standpoint. There was talk about going to the OR today for debridement of the bilateral lower extremity wounds. Patient states she has continued pain in the bilateral lower extremities as well as her lower back. Wound care nurse is following. We will continue to monitor. She continues with palpable DP pulses bilaterally. If there are any questions or concerns, please do not hesitate to reach out to us. Time Spent With Patient Time: Total time managing care of this patient today ____ minutes. Procedures Date of Service Date of Service: 08/01/24 Quality Stroke Does the patient have a stroke diagnosis?: No VTE Prior VTE?: No VTE Risk Level:: Medical - moderate - high VTE Device Contraindication: Treatment Not Indicated VTE Drug Contraindication: N/A - Med Ordered
--- NOTE | 2024-07-29 16:33 | PC.NURSE ---
Per pharmacy Phu, no vancomycin to be given today
[2024-07-29 16:52] LABS: INTERNATIONAL NORM RATIO 1.4 (0.9-1.1); Prothrombin Time 16.4 SEC (10.9-12.4)
--- NOTE | 2024-07-29 16:59 | HO.WOUND ---
Wound Consult: Initial 43yr old female? admitted to [facility] on 07/27/24 - See progress notes and H&P for detailed history.? Wound consult placed for Bilateral Legs and Posterior hip flank sites.? Patient agreeable to assessment and photo documentation.? Etiology is unclear follows with General Surgery who planned to take to OR today but patient refused and is planned for OR thursday for debridement. Given unclear etiology would recommend biopsy at time of debridement or in place of debridement to determine etiology will defer to providers for best course of treatment. Left Foot Bilateral Ischium Etiology: Left Stage 3 PI and Right Stage 2 PI Wound Bed: various stages Left full thickness tissue loss with pink red wound bed - right side with recently resurfaced tissue - induraiton noted Drainage / Odor: scant serous and serosang drainage noted Edges: ?well defined and unattached to left Rekha wound: ? Induration noted in the periwound - No Fluctuance or Warmth noted Pain: extreme pain reported Goals of Treatment: ?Foam dressing Legs Right Side Bilateral Legs and Posterior Hip Flank area Etiology: ?Unclear Etiology Wound Bed: various stages of eschar black dry stabe and moist loose soft boggy eschar / necrotic slough Drainage / Odor: serous and serosang drainage noted Edges: ? irregular and atypical presentation Rekha wound: ?livedo reticularis Red pink purple No Induration, Fluctuance or Warmth noted Pain: extreme pain reported Goals of Treatment: ?Xeroform to keep eschar stable where able and donate some moisture to allow for areas that are not stable to debride Recommendations: 1. Turn and Reposition every 2 hours and as needed for patient comfort.? Use pillows or wedges to support off loading positions. 2. Off Load all bony prominences with use of pillows and heel boots if needed.? Apply Preventative foams where needed. ? 3. Monitor for incontinence and moisture control, use barrier creams when needed for prevention and treatment. 4. Provide adequate and supplemental nutrition.? 5. Continue low air loss mattress. 6. When applicable maintain blood glucose levels per Providers order. 7. Bilateral Lower Legs and Posterior Hip and Flank area - Cleanse with Ns moist gauze, dry well. Apply skin prep to periwound. Cover wounds with single layer of Xeroform followed by Gauze, ABD pad and wrap. May use foam dressing to posterior hip/ flank to aid in pressure redistribution. Re-consult wound care Nurse for wound deterioration or wound changes.
[2024-07-29] MEDS: Warfarin Sodium 5 MG TABLET PO (17:31)
--- NOTE | 2024-07-29 19:10 | PC.NURSE ---
Pt drowsy but arousable. Answers questions when asked but falls back to sleep
[2024-07-29] MEDS: methADONE HCl 20 MG/2 ML ORAL.CONC 95 MG PO (20:58)
[2024-07-29] MEDS: Doxepin HCl 10 MG CAPSULE PO (20:59)
[2024-07-29] MEDS: cloNIDine HCL 0.2 MG TABLET PO (20:59)
[2024-07-30 02:40] VITALS: BP 152/88; PULSE 91; RESP 18; TEMP 36.7; O2SAT 92
[2024-07-30] MEDS: Omeprazole 20 MG CAPSULE.DR PO (07:00)
[2024-07-30 07:06] VITALS: BP 152/90; PULSE 92; RESP 17; TEMP 36; O2SAT 96
[2024-07-30] MEDS: HYDROmorphone HCl 1 MG/ML SYRINGE IVPUSH ×4 (07:35→23:25)
--- NOTE | 2024-07-30 09:15 | P.PNIM_ITS ---
Subjective Subjective Date of Service: 07/30/24 Interval History: in pain ENT Ears, Nose, Mouth, and Throat: Reports Normal hearing present Neurologic Neurologic: Reports Normal hearing present and Denies Sensory deficit (Neuro) Physical Exam 2 Vital Signs: Vital Signs: Last Vital Signs Temp 96.8 F 07/30/24 07:06 Pulse 92 07/30/24 07:06 Resp 17 07/30/24 07:06 BP 152/90 H 07/30/24 07:06 Pulse Ox 96 07/30/24 07:06 O2 Del Method Room Air 07/30/24 07:06 BMI result Body Mass Index 25.2 Const: General: comfortable and no acute distress Resp: Effort & Inspection: normal respiratory effort Cardio: Rate: regular rate GI: Palpation (GI): Soft to palpation Neuro: Cranial nerves: Yes Normal hearing present Sensory Exam: No Sensory deficit (Neuro) Extrem: Other: Eschar on both lower extremities, as previously documented Objective Data Active Medications Acetaminophen (Acetaminophen 325 Mg Tablet) 650 mg PO Q6H PRN PRN Reason: Pain, Mild 1-3,fever,headache Last Admin: 07/29/24 03:46 Dose: 650 mg Documented By: GERRY Albuterol Sulfate (Albuterol Sulfate 90 Mcg 8 Gm Inhaler) 2 puff INHALE RQ4H PRN PRN Reason: Wheezing Amlodipine Besylate (Amlodipine Besylate 10 Mg Tablet) 10 mg PO DAILY [facility]; Protocol Last Admin: 07/29/24 08:39 Dose: 10 mg Documented By: GEETHA Bupropion HCl (Bupropion Hcl Xl 300 Mg Tab.Er.24h) 300 mg PO DAILY [facility] Last Admin: 07/29/24 08:39 Dose: 300 mg Documented By: GEETHA Cinacalcet (Cinacalcet Hcl 30 Mg Tablet) 30 mg PO TuThSa [facility] Clonidine HCl (Clonidine Hcl 0.1 Mg Tablet) 0.1 mg PO BID PRN; Protocol PRN Reason: Anxiety Clonidine HCl (Clonidine Hcl 0.2 Mg Tablet) 0.2 mg PO BEDTIME [facility]; Protocol Last Admin: 07/29/24 20:59 Dose: 0.2 mg Documented By: JOEL Cyanocobalamin (Cyanocobalamin (Vitamin B-12) 100 Mcg Tablet) 100 mcg PO DAILY [facility] Last Admin: 07/29/24 08:40 Dose: 100 mcg Documented By: GEETHA Doxepin HCl (Doxepin Hcl 10 Mg Capsule) 10 mg PO BEDTIME [facility] Last Admin: 07/29/24 20:59 Dose: 10 mg Documented By: JOEL Gabapentin (Gabapentin 600 Mg Tablet) 600 mg PO BID [facility] Last Admin: 07/29/24 20:59 Dose: 600 mg Documented By: JOEL Heparin Sodium (Porcine) (Heparin Sodium,Porcine 5,000 Unit/Ml Vial) 5,000 unit SUBCUT Q8H [facility] Last Admin: 07/30/24 00:20 Dose: Not Given Documented By: JOEL Non-Admin Reason: Patient Refused Heparin Sodium (Porcine) (Heparin Sodium,Porcine 5,000 Unit/Ml Vial) 5,000 unit INTRACATH ONCE ONE Stop: 08/01/24 06:01 Hydromorphone HCl (Hydromorphone Hcl 1 Mg/Ml Syringe) 1 mg IVPUSH Q2H PRN; Protocol PRN Reason: Pain, Severe (Pain Scale 7-10) Last Admin: 07/30/24 07:35 Dose: 1 mg Documented By: JOEL Hydroxyzine HCl (Hydroxyzine Hcl 50 Mg Tablet) 50 mg PO TID PRN PRN Reason: Anxiety Last Admin: 07/29/24 13:19 Dose: 50 mg Documented By: GEETHA Cefepime HCl 1 gm/ Sodium (Chloride) 50 mls @ 100 mls/hr IV Q24H [facility] Last Infusion: 07/29/24 15:25 Dose: Infused Documented By: GEETHA Sodium Thiosulfate 12.5 gm/ (Sodium Chloride) 200 mls @ 400 mls/hr IV Q30M [facility] Stop: 07/30/24 16:44 Vancomycin HCl 500 mg/ Sodium (Chloride) 110 mls @ 110 mls/hr IV Q24H [facility] Melatonin (Melatonin 3 Mg Tablet) 6 mg PO BEDTIME PRN PRN Reason: Insomnia Methadone HCl (Methadone Hcl 20 Mg/2 Ml Oral.Conc) 100 mg PO DAILY [facility] Last Admin: 07/29/24 09:32 Dose: 100 mg Documented By: GEETHA Co-signed By: BARBARA Methadone HCl (Methadone Hcl 20 Mg/2 Ml Oral.Conc) 95 mg PO BEDTIME [facility] Last Admin: 07/29/24 20:58 Dose: 95 mg Documented By: JOEL Co-signed By: KYLE Multivitamins/Vitamin C (Multivitamin Tablet) 1 tab PO DAILY [facility] Last Admin: 07/29/24 08:39 Dose: 1 tab Documented By: GEETHA Non-Formulary Medication (Lumateperone [Caplyta]) 42 mg PO DAILY [facility] Omeprazole (Omeprazole 20 Mg Capsule.Dr) 20 mg PO DAILY@0630 [facility] Last Admin: 07/30/24 07:00 Dose: 20 mg Documented By: JOEL Oxycodone HCl (Oxycodone Hcl Immed Release 5 Mg Tablet) 5 mg PO Q6H PRN PRN Reason: Pain, Moderate(Pain Scale 4-6) Last Admin: 07/29/24 03:46 Dose: 5 mg Documented By: GERRY Pharmacy Consult (Consult Rx Vancomycin Dosing) 1 each MISCELLANE DAILY PRN PRN Reason: Consult order Polyethylene Glycol (Polyethylene Glycol 3350 17 Gm Powd.Pack) 17 gm PO DAILY PRN PRN Reason: Constipation Quetiapine Fumarate (Quetiapine Fumarate 50 Mg Tablet) 50 mg PO TID PRN PRN Reason: Anxiety Last Admin: 07/28/24 23:39 Dose: 50 mg Documented By: GERRY Sodium Chloride (0.9 % Sodium Chloride Flush 3 Ml Syringe) 3 ml IVFLUSH QSHIFT [facility] Last Admin: 07/29/24 21:00 Dose: 3 ml Documented By: JOEL Topiramate (Topiramate 100 Mg Tablet) 100 mg PO BID [facility] Last Admin: 07/29/24 20:59 Dose: 100 mg Documented By: JOEL Trazodone HCl (Trazodone Hcl 100 Mg Tablet) 100 mg PO BEDTIME PRN PRN Reason: Insomnia Last Admin: 07/28/24 23:38 Dose: 100 mg Documented By: GERRY Warfarin Sodium (Warfarin Sodium 2.5 Mg Tablet) 2.5 mg PO DAILY@1800 [facility] Labs 07/29/24 13:12 07/29/24 06:11 Labs: Laboratory Results - last 24 hr 07/29/24 07/29/24 13:12 15:51 MCV 96.1 MCH 29.7 MCHC 30.9 L RDW 22.6 H Plt Count 168 D MPV 12.3 Absolute Nucleated RBC 0.110 H Nucleated RBC % (auto) 0.5 H PT 16.4 H INR 1.4 H Random Vancomycin 16.2 Microbiology Microbiology Results: Microbiology 07/27/24 14:57 Blood Culture - Final Blood - Venous Klebsiella pneumoniae 07/27/24 14:53 Blood Culture - Final Blood - Venous Klebsiella pneumoniae Assessment and Plan (1) Antiphospholipid antibody syndrome: Status: Acute Plan 43F PMH ESRD, SLE, antiphospholipid syndrome, history of DVTs on warfarin, history of MRSA bacteremia, opiate dependence on methadone, cocaine use, hypertension, GERD, migraines presented with worsening bilateral lower leg wounds 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 Complicated by sepsis due to Klebsiella bacteremia Continue with pain meds, IV vancomycin, change cefepime to ceftriaxone, follow up ID Plan for sodium thiosulfate with dialysis sessions pain control End-stage renal disease, hyperpth Continue hemodialysis stop vitd start sensipar Antiphospholipid syndrome Continue Coumadin though associated with calciphylaxis, no alternative Hypertension Amlodipine, clonidine Opiate dependence Continue methadone DVT prophylaxis with heparin subQ Full code - poor prognosis reason for continued hospitalization: Bacteremia Quality Stroke Does the patient have a stroke diagnosis?: No VTE Prior VTE?: No VTE Risk Level:: Medical - moderate - high VTE Device Contraindication: Treatment Not Indicated VTE Drug Contraindication: N/A - Med Ordered
[2024-07-30] MEDS: methADONE HCl 20 MG/2 ML ORAL.CONC 100 MG PO (10:19)
[2024-07-30] MEDS: buPROPion HCl XL 300 MG TAB.ER.24H PO (10:24)
[2024-07-30] MEDS: 0.9 % Sodium Chloride Flush 3 ML SYRINGE IVFLUSH ×3 (10:24→23:33)
[2024-07-30] MEDS: Cyanocobalamin (Vitamin B-12) 100 MCG TABLET PO (10:28)
[2024-07-30] MEDS: Topiramate 100 MG TABLET PO ×2 (10:28→23:26)
[2024-07-30] MEDS: Multivitamin TABLET 1 TAB PO (10:28)
[2024-07-30] MEDS: Gabapentin 600 MG TABLET PO ×2 (10:28→23:25)
[2024-07-30 10:30] VITALS: BP 172/99
[2024-07-30] MEDS: amLODIPine Besylate 10 MG TABLET PO (10:30)
[2024-07-30] MEDS: Cinacalcet HCl 30 MG TABLET PO (12:05)
[2024-07-30] MEDS: cefTRIAXone sodium 1 GM VIAL IVPUSH (12:07)
--- NOTE | 2024-07-30 12:28 | MHC.RECOVRN ---
Met with pt in 360 to check in and provide support. Pt sitting in bed, awake, alert, easily engages in conversation. Reports pain and requesting medication. Pt was not aware Dilaudid is available every 2 hours, educated pt. Pt reports legs feel better being wrapped. Denies other questions or concerns for t/w. Discussed with pts RN.
[2024-07-30 12:34] LABS: Appearance Urine Cloudy; Color Urine Yellow; Glucose Urine UA Negative (Negative); Leukocyte Esterase Urine Moderate (2+) (Negative); Nitrite Urine Negative (Negative); PH 7.5 (5.0-9.0); Specific Gravity - Urine 1.015 (1.005-1.025); UMIC TRIGGER UACC YES; Urine Blood Large (3+) (Negative); Urine Ketones Negative (Negative); Urine Protein 300 (3+) mg/dL (Neg-Trace)
[2024-07-30 12:37] LABS: Bacteria Urine None Seen (None Seen); Hyaline Casts Urine 0-2 /LPF (0-2); RBC Urine >20 /HPF (0-2); Squamous Epithelial Cell Urine 0-2 /HPF (0-2); UACC Culture Trigger YES; WBC Urine >50 /HPF (0-5)
[2024-07-30 12:43] LABS: Amphetamine Screen Urine Not Detected (Not Detect); Barbiturates, Urine Not Detected (Not Detect); Benzodiazepines Screen Urine Not Detected (Not Detect); Buprenorphine Scr Not Detected (Not Detect); Cannabinoid Screen Urine Not Detected (Not Detect); Cocaine Screen Urine POSITIVE (Not Detect); Fentanyl, urine Not Detected (Not Detect); Methadone Screen, Urine Positive (Not Detect); Opiate Screen Urine POSITIVE (Not Detect); Oxycodone Screen Urine Positive (Not Detect); Phencyclidine Screen Urine Not Detected (Not Detect)
[2024-07-30 15:37] VITALS: BP 146/70; PULSE 97; RESP 18; TEMP 37.2; O2SAT 93
[2024-07-30 18:09] LABS: Hematocrit 24.5 % (37.0-47.0); Hemoglobin 7.6 g/dl (12.0-16.0); Mean Corpuscular Hemoglobin 29.3 pg (27.0-33.0); Mean Corpuscular Volume 94.6 fL (80.0-98.0); Mean Platelet Volume 12.4 fL (9.4-12.3); NRBC Pct Auto 0.1 /100WBC (0.0-0.2); Platelet Count 213 X10*3/uL (160-400); Red Blood Count 2.59 X10*6/uL (4.20-5.50); Red Cell Distribution Width 22.3 % (11.0-16.0); White Blood Count 21.5 X10*3/uL (4.8-10.8)
[2024-07-30] MEDS: Warfarin Sodium 2.5 MG TABLET PO (18:43)
[2024-07-30 19:06] LABS: Anion Gap 22 (12-20); Blood Urea Nitrogen 56 mg/dL (9-16); Carbon Dioxide 17 mmol/L (22-29); Chloride 100 mmol/L (96-108); Creatinine Clr Calc Pharmacy 16.8; Estimated Glomerular Filt Rate 11; Glucose Random 74 mg/dL (60-115); Potassium 5.2 mmol/L (3.3-5.1); Sodium 134 mmol/L (135-145)
[2024-07-30 19:23] VITALS: BP 146/7; PULSE 90; RESP 20; TEMP 37.2; O2SAT 92
[2024-07-30] MEDS: methADONE HCl 20 MG/2 ML ORAL.CONC 95 MG PO (23:25)
[2024-07-30] MEDS: Doxepin HCl 10 MG CAPSULE PO (23:25)
[2024-07-30] MEDS: cloNIDine HCL 0.2 MG TABLET PO (23:26)
[2024-07-31] VITALS (7 sets, daily range): BP systolic 122–143; BP diastolic 79–96; PULSE 80–89; RESP 16–20; TEMP 36.2–37; O2SAT 93–96
[2024-07-31] MEDS: HYDROmorphone HCl 1 MG/ML SYRINGE IVPUSH ×5 (06:37→22:03)
[2024-07-31] MEDS: Omeprazole 20 MG CAPSULE.DR PO (06:37)
[2024-07-31] MEDS: Topiramate 100 MG TABLET PO ×2 (08:47→19:56)
[2024-07-31] MEDS: buPROPion HCl XL 300 MG TAB.ER.24H PO (08:48)
[2024-07-31] MEDS: amLODIPine Besylate 10 MG TABLET PO (08:48)
[2024-07-31] MEDS: Gabapentin 600 MG TABLET PO ×2 (08:48→19:56)
[2024-07-31] MEDS: Multivitamin TABLET 1 TAB PO (08:48)
[2024-07-31] MEDS: methADONE HCl 20 MG/2 ML ORAL.CONC 100 MG PO (08:49)
[2024-07-31] MEDS: Cyanocobalamin (Vitamin B-12) 100 MCG TABLET PO (08:49)
[2024-07-31] MEDS: 0.9 % Sodium Chloride Flush 3 ML SYRINGE IVFLUSH ×2 (08:51→17:56)
--- NOTE | 2024-07-31 09:30 | HO.PM.IMPN ---
Subjective Subjective Date of Service: 07/31/24 Interval History: in pain ENT Ears, Nose, Mouth, and Throat: Reports Normal hearing present Neurologic Neurologic: Reports Normal hearing present and Denies Sensory deficit (Neuro) Physical Exam Vital Signs: Vital Signs: Last Vital Signs Temp 98.0 F 07/31/24 08:00 Pulse 80 07/31/24 08:00 Resp 18 07/31/24 08:00 BP 128/87 07/31/24 08:00 Pulse Ox 96 07/31/24 08:00 O2 Del Method Nasal Cannula 07/31/24 08:00 O2 Flow Rate 2.0 07/31/24 08:00 BMI result Body Mass Index 25.2 Const: General: comfortable and no acute distress Resp: Effort & Inspection: normal respiratory effort Cardio: Rate: regular rate GI: Palpation (GI): Soft to palpation Neuro: Cranial nerves: Yes Normal hearing present Sensory Exam: No Sensory deficit (Neuro) Extrem: Other: Eschar on both lower extremities, as previously documented Objective Data Active Medications Acetaminophen (Acetaminophen 325 Mg Tablet) 650 mg PO Q6H PRN PRN Reason: Pain, Mild 1-3,fever,headache Last Admin: 07/29/24 03:46 Dose: 650 mg Documented By: GERRY Albuterol Sulfate (Albuterol Sulfate 90 Mcg 8 Gm Inhaler) 2 puff INHALE RQ4H PRN PRN Reason: Wheezing Albuterol/Ipratropium (Albuterol/Iprat 2.5/0.5mg 3 Ml Ampul.Neb) 3 ml INHALE Q4H PRN PRN Reason: Wheezing Amlodipine Besylate (Amlodipine Besylate 10 Mg Tablet) 10 mg PO DAILY [facility]; Protocol Last Admin: 07/31/24 08:48 Dose: 10 mg Documented By: ELINA Bupropion HCl (Bupropion Hcl Xl 300 Mg Tab.Er.24h) 300 mg PO DAILY [facility] Last Admin: 07/31/24 08:48 Dose: 300 mg Documented By: ELINA Ceftriaxone Sodium (Ceftriaxone Sodium 1 Gm Vial) 1 gm IVPUSH Q24H [facility] Last Admin: 07/30/24 12:07 Dose: 1 gm Documented By: ELINA Cinacalcet (Cinacalcet Hcl 30 Mg Tablet) 30 mg PO TuThSa [facility] Last Admin: 07/30/24 12:05 Dose: 30 mg Documented By: ELINA Clonidine HCl (Clonidine Hcl 0.1 Mg Tablet) 0.1 mg PO BID PRN; Protocol PRN Reason: Anxiety Clonidine HCl (Clonidine Hcl 0.2 Mg Tablet) 0.2 mg PO BEDTIME [facility]; Protocol Last Admin: 07/30/24 23:26 Dose: 0.2 mg Documented By: JOEL Cyanocobalamin (Cyanocobalamin (Vitamin B-12) 100 Mcg Tablet) 100 mcg PO DAILY [facility] Last Admin: 07/31/24 08:49 Dose: 100 mcg Documented By: ELINA Doxepin HCl (Doxepin Hcl 10 Mg Capsule) 10 mg PO BEDTIME [facility] Last Admin: 07/30/24 23:25 Dose: 10 mg Documented By: JOEL Gabapentin (Gabapentin 600 Mg Tablet) 600 mg PO BID [facility] Last Admin: 07/31/24 08:48 Dose: 600 mg Documented By: ELINA Heparin Sodium (Porcine) (Heparin Sodium,Porcine 5,000 Unit/Ml Vial) 5,000 unit SUBCUT Q8H [facility] Last Admin: 07/31/24 08:51 Dose: Not Given Documented By: ELINA Non-Admin Reason: Patient Refused Comments: on warfarin Heparin Sodium (Porcine) (Heparin Sodium,Porcine 5,000 Unit/Ml Vial) 5,000 unit INTRACATH ONCE ONE Stop: 08/01/24 06:01 Hydromorphone HCl (Hydromorphone Hcl 1 Mg/Ml Syringe) 1 mg IVPUSH Q2H PRN; Protocol PRN Reason: Pain, Severe (Pain Scale 7-10) Last Admin: 07/31/24 08:54 Dose: 1 mg Documented By: ELINA Hydroxyzine HCl (Hydroxyzine Hcl 50 Mg Tablet) 50 mg PO TID PRN PRN Reason: Anxiety Last Admin: 07/29/24 13:19 Dose: 50 mg Documented By: GEETHA Vancomycin HCl 500 mg/ Sodium (Chloride) 110 mls @ 110 mls/hr IV Q24H [facility] Sodium Thiosulfate 12.5 gm/ (Sodium Chloride) 200 mls @ 400 mls/hr IV TuThSa@1600 [facility] Melatonin (Melatonin 3 Mg Tablet) 6 mg PO BEDTIME PRN PRN Reason: Insomnia Methadone HCl (Methadone Hcl 20 Mg/2 Ml Oral.Conc) 100 mg PO DAILY [facility] Last Admin: 07/31/24 08:49 Dose: 100 mg Documented By: ELINA Co-signed By: SKY Methadone HCl (Methadone Hcl 20 Mg/2 Ml Oral.Conc) 95 mg PO BEDTIME [facility] Last Admin: 07/30/24 23:25 Dose: 95 mg Documented By: JOEL Co-signed By: SUSANNAHRISAngelica Multivitamins/Vitamin C (Multivitamin Tablet) 1 tab PO DAILY [facility] Last Admin: 07/31/24 08:48 Dose: 1 tab Documented By: ELINA Non-Formulary Medication (Lumateperone [Caplyta]) 42 mg PO DAILY [facility] Omeprazole (Omeprazole 20 Mg Capsule.Dr) 20 mg PO DAILY@0630 [facility] Last Admin: 07/31/24 06:37 Dose: 20 mg Documented By: JOEL Oxycodone HCl (Oxycodone Hcl Immed Release 5 Mg Tablet) 5 mg PO Q6H PRN PRN Reason: Pain, Moderate(Pain Scale 4-6) Last Admin: 07/29/24 03:46 Dose: 5 mg Documented By: GERRY Pharmacy Consult (Consult Rx Vancomycin Dosing) 1 each MISCELLANE DAILY PRN PRN Reason: Consult order Polyethylene Glycol (Polyethylene Glycol 3350 17 Gm Powd.Pack) 17 gm PO DAILY PRN PRN Reason: Constipation Quetiapine Fumarate (Quetiapine Fumarate 50 Mg Tablet) 50 mg PO TID PRN PRN Reason: Anxiety Last Admin: 07/28/24 23:39 Dose: 50 mg Documented By: GERRY Sodium Chloride (0.9 % Sodium Chloride Flush 3 Ml Syringe) 3 ml IVFLUSH QSHIFT [facility] Last Admin: 07/31/24 08:51 Dose: 3 ml Documented By: ELINA Topiramate (Topiramate 100 Mg Tablet) 100 mg PO BID [facility] Last Admin: 07/31/24 08:47 Dose: 100 mg Documented By: ELINA Trazodone HCl (Trazodone Hcl 100 Mg Tablet) 100 mg PO BEDTIME PRN PRN Reason: Insomnia Last Admin: 07/28/24 23:38 Dose: 100 mg Documented By: GERRY Warfarin Sodium (Warfarin Sodium 2.5 Mg Tablet) 2.5 mg PO DAILY@1800 [facility] Last Admin: 07/30/24 18:43 Dose: 2.5 mg Documented By: ELINA Labs 07/30/24 17:55 07/30/24 17:55 Labs: Laboratory Results - last 24 hr 07/30/24 07/30/24 12:00 17:55 MCV 94.6 MCH 29.3 MCHC 31.0 RDW 22.3 H Plt Count 213 D MPV 12.4 H Absolute Nucleated RBC 0.030 H Nucleated RBC % (auto) 0.1 Anion Gap 22 H Estim Creat Clear Calc 16.8 Estimated GFR 11 Random Glucose 74 Calcium 8.0 L Magnesium 2.0 Urine Color Yellow Urine Appearance Cloudy Urine pH 7.5 Ur Specific [place] 1.015 Urine Protein 300 (3+) H Urine Glucose (UA) Negative Urine Ketones Negative Urine Blood Large (3+) H Urine Nitrite Negative Ur Leukocyte Esterase Moderate (2+) H Urine RBC >20 H Urine WBC >50 H Ur Squamous Epith Cells 0-2 Urine Bacteria None Seen Hyaline Casts 0-2 Random Vancomycin 13.0 L Urine Opiates Screen POSITIVE H Ur Buprenorphine Scrn Not Detected Ur Oxycodone Screen Positive H Urine Methadone Screen Positive H Urine Fentanyl Screen Not Detected Ur Barbiturates Screen Not Detected Ur Phencyclidine Scrn Not Detected Ur Amphetamines Screen Not Detected U Benzodiazepines Scrn Not Detected Urine Cocaine Screen POSITIVE H U Marijuana (THC) Screen Not Detected Microbiology Microbiology Results: Microbiology 07/30/24 Unknown Urine Culture - Final Urine clean catch - Clean Catch Midstream 07/27/24 14:57 Blood Culture - Final Blood - Venous Klebsiella pneumoniae 07/27/24 14:53 Blood Culture - Final Blood - Venous Klebsiella pneumoniae Assessment and Plan (1) Antiphospholipid antibody syndrome: Status: Acute Plan 43F PMH ESRD, SLE, antiphospholipid syndrome, history of DVTs on warfarin, history of MRSA bacteremia, opiate dependence on methadone, cocaine use, hypertension, GERD, migraines presented with worsening bilateral lower leg wounds 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 Complicated by sepsis due to Klebsiella bacteremia Continue with pain meds, IV vancomycin, changed cefepime to ceftriaxone, follow up ID Plan for sodium thiosulfate with dialysis sessions pain control, debridement possible 08/01/24 End-stage renal disease, hyperpth Continue hemodialysis stop vitd start sensipar Antiphospholipid syndrome Continue Coumadin though associated with calciphylaxis, no alternative Hypertension Amlodipine, clonidine Opiate dependence Continue methadone DVT prophylaxis with heparin subQ Full code - poor prognosis reason for continued hospitalization: Bacteremia Quality Stroke Does the patient have a stroke diagnosis?: No VTE Prior VTE?: No VTE Risk Level:: Medical - moderate - high VTE Device Contraindication: Treatment Not Indicated VTE Drug Contraindication: N/A - Med Ordered
[2024-07-31] MEDS: cefTRIAXone sodium 1 GM VIAL IVPUSH (11:35)
[2024-07-31] MEDS: Furosemide 100 MG/10 ML VIAL 60 MG IVPUSH (11:35)
[2024-07-31 16:00] LABS: Anion Gap 20 (12-20); Blood Urea Nitrogen 41 mg/dL (9-16); Calcium 7.8 mg/dL (8.4-10.2); Carbon Dioxide 20 mmol/L (22-29); Chloride 100 mmol/L (96-108); Creatinine Clr Calc Pharmacy 18.4; Estimated Glomerular Filt Rate 12; Glucose Random 83 mg/dL (60-115); Potassium 4.6 mmol/L (3.3-5.1); Sodium 135 mmol/L (135-145)
[2024-07-31 16:43] LABS: Vancomycin Random 9.5 mcg/mL (15-20)
--- NOTE | 2024-07-31 16:59 | HE.PHANOTE ---
REGGIEO DOSE ADJUSTMENT BASED ON POST DIALYSIS LEVEL OF 9.5 500MG GIVEN ONCE. NEXT LEVEL POST DIALYSIS ON 08/02 @ 1800
[2024-07-31] MEDS: Warfarin Sodium 2.5 MG TABLET PO (17:54)
[2024-07-31] MEDS: vancomycin HCL 500 MG in 0.9 % Sodium Chloride 100 ML 110 MG IV (17:55)
[2024-07-31] MEDS: Doxepin HCl 10 MG CAPSULE PO (19:56)
[2024-07-31] MEDS: methADONE HCl 20 MG/2 ML ORAL.CONC 95 MG PO (19:56)
[2024-07-31] MEDS: cloNIDine HCL 0.2 MG TABLET PO (21:10)
[2024-08-01] VITALS (7 sets, daily range): BP systolic 142–162; BP diastolic 86–92; PULSE 88–103; RESP 17–19; TEMP 36.8–37.9; O2SAT 93–94; BMI 25.2
[2024-08-01] MEDS: HYDROmorphone HCl 1 MG/ML SYRINGE IVPUSH ×6 (02:50→19:50)
--- NOTE | 2024-08-01 07:59 | PM.PNGS ---
Subjective Subjective Date of Service: 08/01/24 Interval history: No new complaints No events reported No fever Physical Exam Vital Signs: Vital Signs: Last Vital Signs Temp 98.2 F 08/01/24 04:00 Pulse 88 08/01/24 04:00 Resp 18 08/01/24 05:40 BP 160/90 H 08/01/24 04:00 Pulse Ox 93 08/01/24 04:00 O2 Del Method Nasal Cannula 08/01/24 04:00 O2 Flow Rate 2 08/01/24 04:00 BMI result Body Mass Index 25.2 Const: General: comfortable and no acute distress Resp: Effort & Inspection: normal respiratory effort Cardio: Rate: regular rate GI: Palpation (GI): Soft to palpation Extrem: Other: Both lower extremities with dressings, known to have what eschars bilaterally Objective Data Active Medications Acetaminophen (Acetaminophen 325 Mg Tablet) 650 mg PO Q6H PRN PRN Reason: Pain, Mild 1-3,fever,headache Last Admin: 07/29/24 03:46 Dose: 650 mg Documented By: GERRY Albuterol Sulfate (Albuterol Sulfate 90 Mcg 8 Gm Inhaler) 2 puff INHALE RQ4H PRN PRN Reason: Wheezing Albuterol/Ipratropium (Albuterol/Iprat 2.5/0.5mg 3 Ml Ampul.Neb) 3 ml INHALE Q4H PRN PRN Reason: Wheezing Amlodipine Besylate (Amlodipine Besylate 10 Mg Tablet) 10 mg PO DAILY [facility]; Protocol Last Admin: 07/31/24 08:48 Dose: 10 mg Documented By: ELINA Bupropion HCl (Bupropion Hcl Xl 300 Mg Tab.Er.24h) 300 mg PO DAILY [facility] Last Admin: 07/31/24 08:48 Dose: 300 mg Documented By: ELINA Ceftriaxone Sodium (Ceftriaxone Sodium 1 Gm Vial) 1 gm IVPUSH Q24H [facility] Last Admin: 07/31/24 11:35 Dose: 1 gm Documented By: ELINA Cinacalcet (Cinacalcet Hcl 30 Mg Tablet) 30 mg PO TuThSa [facility] Last Admin: 07/30/24 12:05 Dose: 30 mg Documented By: ELINA Clonidine HCl (Clonidine Hcl 0.1 Mg Tablet) 0.1 mg PO BID PRN; Protocol PRN Reason: Anxiety Clonidine HCl (Clonidine Hcl 0.2 Mg Tablet) 0.2 mg PO BEDTIME [facility]; Protocol Last Admin: 07/31/24 21:10 Dose: 0.2 mg Documented By: WILLIE Cyanocobalamin (Cyanocobalamin (Vitamin B-12) 100 Mcg Tablet) 100 mcg PO DAILY [facility] Last Admin: 07/31/24 08:49 Dose: 100 mcg Documented By: ELINA Doxepin HCl (Doxepin Hcl 10 Mg Capsule) 10 mg PO BEDTIME [facility] Last Admin: 07/31/24 19:56 Dose: 10 mg Documented By: WILLIE Gabapentin (Gabapentin 600 Mg Tablet) 600 mg PO BID [facility] Last Admin: 07/31/24 19:56 Dose: 600 mg Documented By: WILLIE Heparin Sodium (Porcine) (Heparin Sodium,Porcine 5,000 Unit/Ml Vial) 5,000 unit SUBCUT Q8H [facility] Last Admin: 08/01/24 00:16 Dose: Not Given Documented By: WILLIE Non-Admin Reason: Patient Refused Hydromorphone HCl (Hydromorphone Hcl 1 Mg/Ml Syringe) 1 mg IVPUSH Q2H PRN; Protocol PRN Reason: Pain, Severe (Pain Scale 7-10) Last Admin: 08/01/24 05:40 Dose: 1 mg Documented By: WILLIE Hydroxyzine HCl (Hydroxyzine Hcl 50 Mg Tablet) 50 mg PO TID PRN PRN Reason: Anxiety Last Admin: 07/29/24 13:19 Dose: 50 mg Documented By: GEETHA Vancomycin HCl 500 mg/ Sodium (Chloride) 110 mls @ 110 mls/hr IV Q24H [facility] Sodium Thiosulfate 12.5 gm/ (Sodium Chloride) 200 mls @ 400 mls/hr IV TuThSa@1600 [facility] Melatonin (Melatonin 3 Mg Tablet) 6 mg PO BEDTIME PRN PRN Reason: Insomnia Methadone HCl (Methadone Hcl 20 Mg/2 Ml Oral.Conc) 100 mg PO DAILY [facility] Last Admin: 07/31/24 08:49 Dose: 100 mg Documented By: ELINA Co-signed By: SKY Methadone HCl (Methadone Hcl 20 Mg/2 Ml Oral.Conc) 95 mg PO BEDTIME [facility] Last Admin: 07/31/24 19:56 Dose: 95 mg Documented By: WILLIE Co-signed By: ELIAN Multivitamins/Vitamin C (Multivitamin Tablet) 1 tab PO DAILY [facility] Last Admin: 07/31/24 08:48 Dose: 1 tab Documented By: ELINA Non-Formulary Medication (Lumateperone [Caplyta]) 42 mg PO DAILY [facility] Omeprazole (Omeprazole 20 Mg Capsule.Dr) 20 mg PO DAILY@0630 [facility] Last Admin: 08/01/24 05:38 Dose: Not Given Documented By: WILLIE Non-Admin Reason: NPO Oxycodone HCl (Oxycodone Hcl Immed Release 5 Mg Tablet) 5 mg PO Q6H PRN PRN Reason: Pain, Moderate(Pain Scale 4-6) Last Admin: 07/29/24 03:46 Dose: 5 mg Documented By: GERRY Pharmacy Consult (Consult Rx Vancomycin Dosing) 1 each MISCELLANE DAILY PRN PRN Reason: Consult order Polyethylene Glycol (Polyethylene Glycol 3350 17 Gm Powd.Pack) 17 gm PO DAILY PRN PRN Reason: Constipation Quetiapine Fumarate (Quetiapine Fumarate 50 Mg Tablet) 50 mg PO TID PRN PRN Reason: Anxiety Last Admin: 07/28/24 23:39 Dose: 50 mg Documented By: GERRY Sodium Chloride (0.9 % Sodium Chloride Flush 3 Ml Syringe) 3 ml IVFLUSH QSHIFT [facility] Last Admin: 08/01/24 00:16 Dose: Not Given Documented By: WILLIE Non-Admin Reason: Previously Administered Topiramate (Topiramate 100 Mg Tablet) 100 mg PO BID [facility] Last Admin: 07/31/24 19:56 Dose: 100 mg Documented By: WILLIE Trazodone HCl (Trazodone Hcl 100 Mg Tablet) 100 mg PO BEDTIME PRN PRN Reason: Insomnia Last Admin: 07/28/24 23:38 Dose: 100 mg Documented By: GERRY Warfarin Sodium (Warfarin Sodium 2.5 Mg Tablet) 2.5 mg PO DAILY@1800 [facility] Last Admin: 07/31/24 17:54 Dose: 2.5 mg Documented By: ELINA Labs 07/30/24 17:55 07/31/24 15:15 Labs: Laboratory Results - last 24 hr 07/31/24 15:15 Anion Gap 20 Estim Creat Clear Calc 18.4 Estimated GFR 12 Random Glucose 83 Calcium 7.8 L Random Vancomycin 9.5 L Microbiology Microbiology Results: Microbiology 07/30/24 Unknown Urine Culture - Final Urine clean catch - Clean Catch Midstream Procedures Date of Service Date of Service: 08/01/24 Progress Note: A&P Assessment and plan (1) Eschar of lower leg: Status: Acute Assessment and Plan: I had a discussion with her about debridement in the OR She says that she does not feel ready to have this done today She says she will let me know maybe tomorrow? According to hospitalist, she has changed her mind multiple times about debridement We will check with her later on today and we will put her back on the schedule when she agrees She is for dialysis today Time Spent With Patient Time: Total time managing care of this patient today ____ minutes. Quality Stroke Does the patient have a stroke diagnosis?: No VTE Prior VTE?: No VTE Risk Level:: Medical - moderate - high VTE Device Contraindication: Treatment Not Indicated VTE Drug Contraindication: N/A - Med Ordered
[2024-08-01] MEDS: 0.9 % Sodium Chloride Flush 3 ML SYRINGE IVFLUSH ×3 (08:39→19:53)
--- NOTE | 2024-08-01 08:42 | P.PNIM_ITS ---
Subjective Subjective Date of Service: 08/01/24 Interval History: pain better controlled Physical Exam 2 Vital Signs: Vital Signs: Last Vital Signs Temp 98.7 F 08/01/24 07:59 Pulse 88 08/01/24 04:00 Resp 18 08/01/24 07:59 BP 142/92 H 08/01/24 07:59 Pulse Ox 93 08/01/24 04:00 O2 Del Method Nasal Cannula 08/01/24 04:00 O2 Flow Rate 2 08/01/24 04:00 BMI result Body Mass Index 25.2 Const: General: comfortable and no acute distress Resp: Effort & Inspection: normal respiratory effort Cardio: Rate: regular rate GI: Palpation (GI): Soft to palpation Extrem: Other: Both lower extremities with dressings, known to have what eschars bilaterally Objective Data Active Medications Acetaminophen (Acetaminophen 325 Mg Tablet) 650 mg PO Q6H PRN PRN Reason: Pain, Mild 1-3,fever,headache Last Admin: 07/29/24 03:46 Dose: 650 mg Documented By: GERRY Albuterol Sulfate (Albuterol Sulfate 90 Mcg 8 Gm Inhaler) 2 puff INHALE RQ4H PRN PRN Reason: Wheezing Albuterol/Ipratropium (Albuterol/Iprat 2.5/0.5mg 3 Ml Ampul.Neb) 3 ml INHALE Q4H PRN PRN Reason: Wheezing Amlodipine Besylate (Amlodipine Besylate 10 Mg Tablet) 10 mg PO DAILY [facility]; Protocol Last Admin: 07/31/24 08:48 Dose: 10 mg Documented By: ELINA Bupropion HCl (Bupropion Hcl Xl 300 Mg Tab.Er.24h) 300 mg PO DAILY [facility] Last Admin: 07/31/24 08:48 Dose: 300 mg Documented By: ELINA Ceftriaxone Sodium (Ceftriaxone Sodium 1 Gm Vial) 1 gm IVPUSH Q24H [facility] Last Admin: 07/31/24 11:35 Dose: 1 gm Documented By: ELINA Cinacalcet (Cinacalcet Hcl 30 Mg Tablet) 30 mg PO TuThSa [facility] Last Admin: 07/30/24 12:05 Dose: 30 mg Documented By: ELINA Clonidine HCl (Clonidine Hcl 0.1 Mg Tablet) 0.1 mg PO BID PRN; Protocol PRN Reason: Anxiety Clonidine HCl (Clonidine Hcl 0.2 Mg Tablet) 0.2 mg PO BEDTIME [facility]; Protocol Last Admin: 07/31/24 21:10 Dose: 0.2 mg Documented By: WILLIE Cyanocobalamin (Cyanocobalamin (Vitamin B-12) 100 Mcg Tablet) 100 mcg PO DAILY [facility] Last Admin: 07/31/24 08:49 Dose: 100 mcg Documented By: ELINA Doxepin HCl (Doxepin Hcl 10 Mg Capsule) 10 mg PO BEDTIME [facility] Last Admin: 07/31/24 19:56 Dose: 10 mg Documented By: WILLIE Gabapentin (Gabapentin 600 Mg Tablet) 600 mg PO BID [facility] Last Admin: 07/31/24 19:56 Dose: 600 mg Documented By: WILLIE Heparin Sodium (Porcine) (Heparin Sodium,Porcine 5,000 Unit/Ml Vial) 5,000 unit SUBCUT Q8H [facility] Last Admin: 08/01/24 00:16 Dose: Not Given Documented By: WILLIE Non-Admin Reason: Patient Refused Hydromorphone HCl (Hydromorphone Hcl 1 Mg/Ml Syringe) 1 mg IVPUSH Q2H PRN; Protocol PRN Reason: Pain, Severe (Pain Scale 7-10) Last Admin: 08/01/24 05:40 Dose: 1 mg Documented By: WILLIE Hydroxyzine HCl (Hydroxyzine Hcl 50 Mg Tablet) 50 mg PO TID PRN PRN Reason: Anxiety Last Admin: 07/29/24 13:19 Dose: 50 mg Documented By: GEETHA Vancomycin HCl 500 mg/ Sodium (Chloride) 110 mls @ 110 mls/hr IV Q24H [facility] Sodium Thiosulfate 12.5 gm/ (Sodium Chloride) 200 mls @ 400 mls/hr IV TuThSa@1600 [facility] Melatonin (Melatonin 3 Mg Tablet) 6 mg PO BEDTIME PRN PRN Reason: Insomnia Methadone HCl (Methadone Hcl 20 Mg/2 Ml Oral.Conc) 100 mg PO DAILY [facility] Last Admin: 07/31/24 08:49 Dose: 100 mg Documented By: ELINA Co-signed By: SKY Methadone HCl (Methadone Hcl 20 Mg/2 Ml Oral.Conc) 95 mg PO BEDTIME [facility] Last Admin: 07/31/24 19:56 Dose: 95 mg Documented By: WILLIE Co-signed By: ELINA Multivitamins/Vitamin C (Multivitamin Tablet) 1 tab PO DAILY [facility] Last Admin: 07/31/24 08:48 Dose: 1 tab Documented By: ELINA Non-Formulary Medication (Lumateperone [Caplyta]) 42 mg PO DAILY [facility] Omeprazole (Omeprazole 20 Mg Capsule.Dr) 20 mg PO DAILY@0630 [facility] Last Admin: 08/01/24 05:38 Dose: Not Given Documented By: WILLIE Non-Admin Reason: NPO Oxycodone HCl (Oxycodone Hcl Immed Release 5 Mg Tablet) 5 mg PO Q6H PRN PRN Reason: Pain, Moderate(Pain Scale 4-6) Last Admin: 07/29/24 03:46 Dose: 5 mg Documented By: GERRY Pharmacy Consult (Consult Rx Vancomycin Dosing) 1 each MISCELLANE DAILY PRN PRN Reason: Consult order Polyethylene Glycol (Polyethylene Glycol 3350 17 Gm Powd.Pack) 17 gm PO DAILY PRN PRN Reason: Constipation Quetiapine Fumarate (Quetiapine Fumarate 50 Mg Tablet) 50 mg PO TID PRN PRN Reason: Anxiety Last Admin: 07/28/24 23:39 Dose: 50 mg Documented By: GERRY Sodium Chloride (0.9 % Sodium Chloride Flush 3 Ml Syringe) 3 ml IVFLUSH QSHIFT [facility] Last Admin: 08/01/24 00:16 Dose: Not Given Documented By: WILLIE Non-Admin Reason: Previously Administered Topiramate (Topiramate 100 Mg Tablet) 100 mg PO BID [facility] Last Admin: 07/31/24 19:56 Dose: 100 mg Documented By: WILLIE Trazodone HCl (Trazodone Hcl 100 Mg Tablet) 100 mg PO BEDTIME PRN PRN Reason: Insomnia Last Admin: 07/28/24 23:38 Dose: 100 mg Documented By: GERRY Warfarin Sodium (Warfarin Sodium 2.5 Mg Tablet) 2.5 mg PO DAILY@1800 [facility] Last Admin: 07/31/24 17:54 Dose: 2.5 mg Documented By: ELINA Labs 07/30/24 17:55 07/31/24 15:15 Labs: Laboratory Results - last 24 hr 07/31/24 15:15 Anion Gap 20 Estim Creat Clear Calc 18.4 Estimated GFR 12 Random Glucose 83 Calcium 7.8 L Random Vancomycin 9.5 L Microbiology Microbiology Results: Microbiology 07/30/24 Unknown Urine Culture - Final Urine clean catch - Clean Catch Midstream Assessment and Plan (1) Antiphospholipid antibody syndrome: Status: Acute Plan 43F PMH ESRD, SLE, antiphospholipid syndrome, history of DVTs on warfarin, history of MRSA bacteremia, opiate dependence on methadone, cocaine use, hypertension, GERD, migraines presented with worsening bilateral lower leg wounds 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 Complicated by sepsis due to Klebsiella bacteremia Continue with pain meds, IV vancomycin, changed cefepime to ceftriaxone, follow up ID Plan for sodium thiosulfate with dialysis sessions pain control, debridement planned for today, however, patient keeps changing her mind about consenting to procedure, will replan for tomorrow End-stage renal disease, hyperpth Continue hemodialysis stop vitd started sensipar Antiphospholipid syndrome Continue Coumadin though associated with calciphylaxis, no alternative Hypertension Amlodipine, clonidine Opiate dependence Continue methadone DVT prophylaxis with heparin subQ Full code - poor prognosis reason for continued hospitalization: Bacteremia Quality Stroke Does the patient have a stroke diagnosis?: No VTE Prior VTE?: No VTE Risk Level:: Medical - moderate - high VTE Device Contraindication: Treatment Not Indicated VTE Drug Contraindication: N/A - Med Ordered
[2024-08-01] MEDS: methADONE HCl 20 MG/2 ML ORAL.CONC 100 MG PO (08:56)
[2024-08-01] MEDS: Multivitamin TABLET 1 TAB PO (08:57)
[2024-08-01] MEDS: buPROPion HCl XL 300 MG TAB.ER.24H PO (08:57)
[2024-08-01] MEDS: Gabapentin 600 MG TABLET PO ×2 (08:57→19:50)
[2024-08-01] MEDS: Cyanocobalamin (Vitamin B-12) 100 MCG TABLET PO (08:57)
--- NOTE | 2024-08-01 09:17 | W.PM.DNNEP ---
Subjective Subjective Date of Service: 08/01/24 This patient was seen during dialysis. Interval history: pain better controlled Physical Exam Vital Signs: Vital Signs: Last Vital Signs Temp 98.7 F 08/01/24 07:59 Pulse 91 08/01/24 07:59 Resp 18 08/01/24 07:59 BP 142/92 H 08/01/24 07:59 Pulse Ox 94 08/01/24 07:59 O2 Del Method Nasal Cannula 08/01/24 07:59 O2 Flow Rate 3.0 08/01/24 07:59 BMI result Body Mass Index 25.2 Const: General: comfortable and no acute distress; No acute distress Orientation/consciousness: patient oriented x3 Eyes: General: appearance normal, both eyes and all related structures Visual [place]: normal visual matamoros by confrontation EOM: EOMs intact bilaterally Neck: Neck: Yes supple and Yes no JVD Resp: Effort & Inspection: normal respiratory effort and respiratory effort not decreased Auscultation: rhonchi and diminished lung sounds Cardio: Palpation: no palpable S3 and no palpable S4 Rate: regular rate Heart sounds: no rubs GI: Inspection: Yes normal to inspection Palpation (GI): Soft to palpation Percussion: Yes normal to percussion Auscultation: normal bowel sounds : General: Yes no CVA tenderness Back/Spine/Pelvis: Back: no CVA tenderness Neuro: General: patient oriented x3, moves all extremities and no focal motor deficits Extrem: Other: Both lower extremities have wound with black eschar General: No clubbing and No edema Assessment & Plan Assessment and plan (1) End stage renal disease on dialysis: Status: Acute (2) Antiphospholipid antibody syndrome: Status: Acute Plan 43-year-old woman with end stage renal disease on maintenance hemodialysis. She has wounds in both legs with black eschar. Clinically appears like calciphylaxis. Agree with other differential as noted in history and physical Plan optimize dialysis. Keep on sodium thiosulfate Daily dialysis Time Spent With Patient Time: Total time managing care of this patient today ____ minutes. Procedures Date of Service Date of Service: 08/02/24
[2024-08-01] MEDS: cefTRIAXone sodium 1 GM VIAL IVPUSH (11:20)
--- NOTE | 2024-08-01 11:43 | MHC.CLN ---
NUTRITION DIET=REGULAR. PATIENT WITH ESRD ON HD. INCREASED NUTRITION NEEDS DUE TO PRESSURE INJURIES TO BILATERAL ISCHIUM. WOUNDS IDENTIFIED PRESSURE INJURIES BY WOUND RN 07/29. INTAKE AT MEALS VARIABLE, WITH MOST AT LEAST 50%. ADDING ENSURE MAX BID TO INCREASE PROTEIN INTAKE TO PROMOTE WOUND HEALING. SUPPLEMENT PROVIDES 300 KCALS, 60 G PROTEIN. FOLLOW FOR PO INTAKE AND WOUND HEALING. SEE CLINICAL NUTRITION ASSESSMENT 08/01/24.
--- NOTE | 2024-08-01 13:45 | P.PNVS_ITS ---
Subjective Subjective Date of Service: 08/01/24 Interval history: Melita is doing ok this morning. She continues to endorse significant pain to her bilateral lower extremities as well as her lower back. She was NPO this morning for possible OR debridement of the lower extremities. She states she has not been eating/drinking well prior to that. She has not been sleeping well. Physical Exam Vital Signs: Vital Signs: Last Vital Signs Temp 98.7 F 08/01/24 07:59 Pulse 91 08/01/24 07:59 Resp 18 08/01/24 07:59 BP 142/92 H 08/01/24 07:59 Pulse Ox 94 08/01/24 07:59 O2 Del Method Nasal Cannula 08/01/24 07:59 O2 Flow Rate 3.0 08/01/24 07:59 BMI result Body Mass Index 25.2 Const: General: comfortable and no acute distress Orientation/consciousness: patient oriented x3 HEENT: Ears: hearing grossly normal bilaterally Resp: Effort & Inspection: normal respiratory effort and able to speak in complete sentences Auscultation: clear to auscultation bilaterally Cardio: Rate: regular rate Rhythm: regular rhythm Heart sounds: S1 alexis l heart sound present and S2 normal heart sound present Bruits: no abdominal aortic bruits, no carotid bruits, no femoral bruits and no renal bruits GI: Palpation (GI): No Abdominal aortic bruit present Neuro: General: patient oriented x3 Cranial nerves: Yes CN's II-XII intact bilaterally Extrem: Other: Bilateral lower extremities: wrapped, not taken down. Strong, palpable DP pulses. Progress Note: A&P Assessment and plan (1) Wounds, multiple open, lower extremity: Status: Acute Assessment and Plan: Melita remains stable from a vascular standpoint. She continues to endorse pain in her legs as well as lower back. She was scheduled to go to the ER today with Dr Whalen for debridement of her lower extremities but did not go; she canceled again. Her dressings are changed daily with foam dressings to the posterior wounds and xeroform, 4x4, abd pad, and Kerlix wraps to bilateral lower extremities. She continues with strong palpable DP and PT pulses bilaterally. We will continue to monitor. If there are any questions or concerns, please do not hesitate to reach out to us. Time Spent With Patient Time: Total time managing care of this patient today ____ minutes. Procedures Date of Service Date of Service: 08/01/24 Quality Stroke Does the patient have a stroke diagnosis?: No VTE Prior VTE?: No VTE Risk Level:: Medical - moderate - high VTE Device Contraindication: Treatment Not Indicated VTE Drug Contraindication: N/A - Med Ordered
[2024-08-01] MEDS: Nystatin Oral Susp 500,000 UNIT/5 ML ORAL.SUSP 200000 UNIT PO ×2 (14:03→19:49)
[2024-08-01 14:36] LABS: Prothrombin Time 58.3 SEC (10.9-12.4)
--- NOTE | 2024-08-01 14:49 | P.CDIM_ITS ---
PROVIDER RESPONSE TEXT: To clarify, the appropriate diagnosis supported by the clinical indicators: Pressure (decubitus) ulcer left ischium stage 3 QUERY TEXT: PHYSICIAN'S DOCUMENTATION REQUEST Date of Query: 08/01/2024 02:43 PM EST Patient Name: Melita Butler Admit Date: 07/27/2024 Dear Rell Li MD, A review of the medical record indicates additional documentation may be needed. Please review below and update the documentation accordingly. Clinical Indicators: Per wound consult 07/29/24: left ischium stage 3 pressure ulcer foam dressing Based on the above, could you please provide further information regarding the ulcer/wound: Pressure (decubitus) ulcer left ischium stage 3 Traumatic wound Other (explain) Clinically unable to determine (explain) Thank you, Carley Caal RN Use of terms such as suspected, likely, concern for, or probable (associated with a specific diagnosi s that is being evaluated, monitored, or treated as if it exists) are acceptable and can be coded in the inpatient se tting, when documented at the time of discharge. Please use your independent medical judgment in providing your response. THIS QUERY IS PART OF THE PERMANENT MEDICAL RECORD
--- NOTE | 2024-08-01 14:49 | P.CDIM_ITS ---
PROVIDER RESPONSE TEXT: To clarify, the appropriate diagnosis supported by the clinical indicators: Pressure (decubitus) ulcer right ischium stage 2 QUERY TEXT: PHYSICIAN'S DOCUMENTATION REQUEST Date of Query: 08/01/2024 02:45 PM EST Patient Name: Melita Butler Admit Date: 07/27/2024 Dear Rell Li MD, A review of the medical record indicates additional documentation may be needed. Please review below and update the documentation accordingly. Clinical Indicators: Per wound consult 07/29/24: right ischium stage 2 pressure ulcer foam dressing Based on the above, could you please provide further information regarding the ulcer/wound: Pressure (decubitus) ulcer right ischium stage 2 Other (explain) Clinically unable to determine (explain) Thank you, Carley Caal RN Use of terms such as suspected, likely, concern for, or probable (associated with a specific diagnosi s that is being evaluated, monitored, or treated as if it exists) are acceptable and can be coded in the inpatient se tting, when documented at the time of discharge. Please use your independent medical judgment in providing your response. THIS QUERY IS PART OF THE PERMANENT MEDICAL RECORD
--- NOTE | 2024-08-01 16:04 | MHC.CM.PN ---
Addendum entered by Erika Cummins 08/01/24 16:09: CORRECTION: PT REFUSED ALL VISITS FROM [facility], THEREFORE THEY WOULD NOT ACCEPT BACK CM ATTEMPTED TO MEET WITH PT TO DETERMINE IF SHE WOULD ACCEPT [facility] VISITS GOING FORWARD, HOWEVER SHE IS OFF THE UNIT Original Note: PT NOT MEDICALLY CLEARED, DCP HOME WITH [facility], PT STATES SHE FIRED HER [facility]. PT WILL NEED WOUND CARE, NEW [facility] REFERRAL MADE
--- NOTE | 2024-08-01 16:15 | MHC.RECOVRN ---
Briefly met with pt in dialysis, asleep. Wakes to voice and easily engages in conversation. Pt reports feeling okay. Discussed debridement, pt reports she has had some fear related to the procedure but is agreeable to do it tomorrow (3/4). Pt denies other questions or concerns for t/w. Notified provider re: debridement.
--- NOTE | 2024-08-01 17:40 | PC.NURSE ---
Pt c/o sore throat, looks reddened with some yellow discoloration spots. Dr Li notified. Pt started on nystatin and prn cepacol lozenges
[2024-08-01] MEDS: Doxepin HCl 10 MG CAPSULE PO (19:50)
[2024-08-01] MEDS: Topiramate 100 MG TABLET PO (19:50)
[2024-08-01] MEDS: methADONE HCl 20 MG/2 ML ORAL.CONC 95 MG PO (19:53)
[2024-08-01] MEDS: cloNIDine HCL 0.2 MG TABLET PO (20:02)
[2024-08-01] MEDS: Acetaminophen 325 MG TABLET 650 MG PO (20:03)
[2024-08-02 01:29] VITALS: RESP 19
[2024-08-02] MEDS: HYDROmorphone HCl 1 MG/ML SYRINGE IVPUSH ×6 (01:29→17:44)
[2024-08-02 04:00] VITALS: BP 164/90; PULSE 91; RESP 16; TEMP 36.8; O2SAT 95
[2024-08-02] MEDS: Omeprazole 20 MG CAPSULE.DR PO (05:12)
--- NOTE | 2024-08-02 07:00 | CA_ITS ---
Transthoracic Echocardiogram Patient (Last, First, Middle): Melita Butler E Gender: Female Date of : 1980 Age: 43 Procedure Date: 08/02/2024 Procedure Type: Transthoracic Echocardiogram Location: S3E Height: 172.72 cm Weight: 74.84 kg BSA: 1.88 m2 Heart Rate: bpm BP: 164 / 90 mmHg Electric Switch Repairer: GILMA Referring MD: Rell Li MD Clarity Developer: Anselmo Tang MD Symptoms: fever, rule out vegetation Study Quality: Adequate ECG Rhythm: Sinus Conclusions: - 1. Large right atrial mass probably attached to catheter tip suggestive of a vegetation 2. Normal LV ejection fraction of 60-65% 3. Moderate mitral regurgitation 4. Moderate to severe tricuspid regurgitation 5. [id number] elevation right ventricular systolic pressure with significantly elevated right atrial pressures 6. No gross pericardial effusion Findings Left Ventricle Normal left ventricular size, thickness, and systolic function. The visually estimated ejection fraction is between 60-65%. Spectral Doppler is indicative of a normal filling pattern. Right Ventricle Mildly increased right ventricular cavity size. There is mildly decreased right ventricular systolic function. Atria The left atrium is moderately dilated. There is no evidence of interatrial shunt. The right atrium is mildly dilated. There is a large mobile mass seen in the right atrium. The mass appears irregular in shape and has a solid texture. The mass measures 3.90 cm x 1.50 cm. the large mass probably attached to catheter tip could represent a vegetation. Aortic Valve There is mild thickening of the aortic valve. There is no aortic valve stenosis. There is mild aortic valve regurgitation. there is minimal thickening of the aortic leaflet with suggestion of Lambl's excrescence Mitral Valve There is mild anterior and posterior mitral leaflet thickening. There is moderate mitral valve regurgitation. There is no mitral valve stenosis. vegetation can not be entirely ruled out Pulmonic Valve The pulmonic valve is likely normal. There is mild pulmonic valve regurgitation. Tricuspid Valve Normal tricuspid valve structure. There is moderate to severe tricuspid valve regurgitation. Significantly elevated right atrial pressure. Mild to moderate pulmonary hypertension is present. Great Vessels All visible segments of the aorta are normal in size. The pulmonary artery was not well visualized. Venous The inferior vena cava is severely dilated and does not collapse with inspiration. Pericardium/Pleural There is no evidence of pericardial effusion. Measurements 2D Linear Measurements IVSd: 1.47 0.6-0.9/0.6-1.0 cm LVIDd: 4.62 3.9-5.3/4.2-5.9 cm LVIDd Index: 2.46 2.4-3.2/2.2-3.1 cm/m2 LVPWd: 0.97 0.7-1.1 cm LA Diam: 4.90 2.7-3.8/3.0-4.0 cm LAIDs Index: 2.61 1.5-2.3 cm/m2 LV Mass: 264.04 67-162/88-224 g LV Mass Index: 140.45 43-95/49-115 g/m2 LVOT Diam: 2.40 3.0+(-)1.3 cm 2D Systolic Function EF 4C: 58.40 >55% EF 2C: 69.30 >55% EF BiP: 64.90 >55% Mitral Valve MV Pk E: 1.52 MV PK A: 0.71 MV Decel Time: 163.00 E/A: 2.10 E'Lateral: 10.30 E'Medial: 8.49 E/E' Med: 17.90 E/E' Lat: 14.80 PHT: 48.00 MVA PHT: 4.58 Decel Becker: 9.31 MR VTI: 1.82 Aortic Valve AoV Pk Bg: 2.10 AoV Mn Bg: 1.39 AoV VTI: 0.35 AoV Pk Grad: 18.00 Aov Mn Grad: 9.00 MERA Cont.VTI: 3.22 AI Pk Bg: 4.42 AI Becker: 2.76 LVOT LVOT Pk Bg: 1.52 LVOT Mn Bg: 1.05 LVOT VTI: 0.25 LVOT Pk Grad: 9.00 LVOT Mn Grad: 5.00 LVOT Diam: 2.40 LVOT Area: 4.52 Diastolic Function MV Pk E: 1.52 MV Pk A: 0.71 E/A: 2.10 E'Medial: 8.49 E/E' Med: 17.90 E' Laterial: 10.30 E/E' Lat: 14.80 Right Ventricle TAPSE (mm): 16.50 TVS' Bg: 10.70 Tricuspid Valve TR Pk Bg: 3.20 TR Pk Grad: 41.00 RA Press: 15.00 RVSP: 56.00 Great Vessels Aorta Sinus of Valsalva: 3.20 2.0-3.5 cm Ao Asc: 3.40 2.1-3.4 cm Pulmonary Veins Pulm Vein S/D 0.40 Pulmonary Valve PV Pk Bg: 1.40 Peak PV Grad: 8.00 Updated in Other Vendor System with Status of Final Anselmo Tang MD electronically signed on 08/02/2024 2:39:57 PM with status of Final
--- NOTE | 2024-08-02 07:34 | P.PNGS_ITS ---
Subjective Subjective Date of Service: 08/03/24 Interval history: No events reported No fever She says she feels well Physical Exam 2 Vital Signs: Vital Signs: Last Vital Signs Temp 98.2 F 08/02/24 04:00 Pulse 91 08/02/24 04:00 Resp 16 08/02/24 04:00 BP 164/90 H 08/02/24 04:00 Pulse Ox 95 08/02/24 04:00 O2 Del Method Nasal Cannula 08/02/24 04:00 O2 Flow Rate 2 08/02/24 04:00 BMI result Body Mass Index 25.2 Const: General: comfortable and no acute distress Resp: Effort & Inspection: normal respiratory effort Cardio: Rate: regular rate Extrem: Other: Dressings in place, dry, no foul smell Objective Data Active Medications Acetaminophen (Acetaminophen 325 Mg Tablet) 650 mg PO Q6H PRN PRN Reason: Pain, Mild 1-3,fever,headache Last Admin: 08/01/24 20:03 Dose: 650 mg Documented By: WILLIE Albuterol Sulfate (Albuterol Sulfate 90 Mcg 8 Gm Inhaler) 2 puff INHALE RQ4H PRN PRN Reason: Wheezing Albuterol/Ipratropium (Albuterol/Iprat 2.5/0.5mg 3 Ml Ampul.Neb) 3 ml INHALE Q4H PRN PRN Reason: Wheezing Amlodipine Besylate (Amlodipine Besylate 10 Mg Tablet) 10 mg PO DAILY [facility]; Protocol Last Admin: 08/01/24 08:59 Dose: Not Given Documented By: GEETHA Non-Admin Reason: dialysis Benzocaine (Throat Lozenge, Medicated Lozenge) 1 lozenge MUCOUS MEM Q2H PRN PRN Reason: Sore Throat Bupropion HCl (Bupropion Hcl Xl 300 Mg Tab.Er.24h) 300 mg PO DAILY [facility] Last Admin: 08/01/24 08:57 Dose: 300 mg Documented By: EGETHA Ceftriaxone Sodium (Ceftriaxone Sodium 1 Gm Vial) 1 gm IVPUSH Q24H [facility] Last Admin: 08/01/24 11:20 Dose: 1 gm Documented By: GEETHA Cinacalcet (Cinacalcet Hcl 30 Mg Tablet) 30 mg PO TuThSa [facility] Last Admin: 07/30/24 12:05 Dose: 30 mg Documented By: ELINA Clonidine HCl (Clonidine Hcl 0.1 Mg Tablet) 0.1 mg PO BID PRN; Protocol PRN Reason: Anxiety Clonidine HCl (Clonidine Hcl 0.2 Mg Tablet) 0.2 mg PO BEDTIME [facility]; Protocol Last Admin: 08/01/24 20:02 Dose: 0.2 mg Documented By: WILLIE Cyanocobalamin (Cyanocobalamin (Vitamin B-12) 100 Mcg Tablet) 100 mcg PO DAILY [facility] Last Admin: 08/01/24 08:57 Dose: 100 mcg Documented By: GEETHA Doxepin HCl (Doxepin Hcl 10 Mg Capsule) 10 mg PO BEDTIME [facility] Last Admin: 08/01/24 19:50 Dose: 10 mg Documented By: WILLIE Gabapentin (Gabapentin 600 Mg Tablet) 600 mg PO BID [facility] Last Admin: 08/01/24 19:50 Dose: 600 mg Documented By: WILLIE Heparin Sodium (Porcine) (Heparin Sodium,Porcine 5,000 Unit/Ml Vial) 5,000 unit SUBCUT Q8H [facility] Last Admin: 08/02/24 00:08 Dose: Not Given Documented By: WILLIE Non-Admin Reason: Patient Refused Hydromorphone HCl (Hydromorphone Hcl 1 Mg/Ml Syringe) 1 mg IVPUSH Q2H PRN; Protocol PRN Reason: Pain, Severe (Pain Scale 7-10) Last Admin: 08/02/24 06:17 Dose: 1 mg Documented By: WILLIE Hydroxyzine HCl (Hydroxyzine Hcl 50 Mg Tablet) 50 mg PO TID PRN PRN Reason: Anxiety Last Admin: 07/29/24 13:19 Dose: 50 mg Documented By: GEETHA Sodium Thiosulfate 12.5 gm/ (Sodium Chloride) 200 mls @ 400 mls/hr IV TuThSa@1600 [facility] Melatonin (Melatonin 3 Mg Tablet) 6 mg PO BEDTIME PRN PRN Reason: Insomnia Methadone HCl (Methadone Hcl 20 Mg/2 Ml Oral.Conc) 100 mg PO DAILY [facility] Last Admin: 08/01/24 08:56 Dose: 100 mg Documented By: GEETHA Co-signed By: ESAU Methadone HCl (Methadone Hcl 20 Mg/2 Ml Oral.Conc) 95 mg PO BEDTIME [facility] Last Admin: 08/01/24 19:53 Dose: 95 mg Documented By: WILLIE Co-signed By: VENECIA Multivitamins/Vitamin C (Multivitamin Tablet) 1 tab PO DAILY [facility] Last Admin: 08/01/24 08:57 Dose: 1 tab Documented By: GEETHA Non-Formulary Medication (Lumateperone [Caplyta]) 42 mg PO DAILY [facility] Nystatin (Nystatin Oral Susp 500,000 Unit/5 Ml Oral.Susp) 200,000 unit PO QID [facility]; Protocol Last Admin: 08/01/24 19:49 Dose: 200,000 unit Documented By: WILLIE Omeprazole (Omeprazole 20 Mg Capsule.Dr) 20 mg PO DAILY@0630 [facility] Last Admin: 08/02/24 05:12 Dose: 20 mg Documented By: WILLIE Polyethylene Glycol (Polyethylene Glycol 3350 17 Gm Powd.Pack) 17 gm PO DAILY PRN PRN Reason: Constipation Quetiapine Fumarate (Quetiapine Fumarate 50 Mg Tablet) 50 mg PO TID PRN PRN Reason: Anxiety Last Admin: 07/28/24 23:39 Dose: 50 mg Documented By: GERRY Sodium Chloride (0.9 % Sodium Chloride Flush 3 Ml Syringe) 3 ml IVFLUSH [facility] Last Admin: 08/01/24 19:53 Dose: 3 ml Documented By: WILLIE Topiramate (Topiramate 100 Mg Tablet) 100 mg PO BID [facility] Last Admin: 08/01/24 19:50 Dose: 100 mg Documented By: WILLIE Trazodone HCl (Trazodone Hcl 100 Mg Tablet) 100 mg PO BEDTIME PRN PRN Reason: Insomnia Last Admin: 07/28/24 23:38 Dose: 100 mg Documented By: GERRY Warfarin Sodium (Warfarin Sodium 2.5 Mg Tablet) 2.5 mg PO DAILY@1800 [facility] Last Admin: 08/01/24 17:32 Dose: Not Given Documented By: GEETHA Non-Admin Reason: Physician Held Med Labs 08/02/24 08:22 08/02/24 08:21 Labs: Laboratory Results - last 24 hr 08/01/24 13:56 PT 58.3 H D INR 5.0 H* D Procedures Date of Service Date of Service: 08/03/24 Progress Note: A&P Assessment and plan (1) Eschar of lower leg: Status: Acute Assessment and Plan: She is agreeing to undergo debridement However, she stating that she does not want to wait until late in the day for this She says she will go for surgery if this this is done in the morning I explained to her that there are already scheduled cases this morning She says she does not want to wait and asks if we can do it tomorrow as long as it was in the morning I will therefore see if I can schedule her for an earlier spot in the OR She wants to resume diet now Time Spent With Patient Time: Total time managing care of this patient today ____ minutes. Quality Stroke Does the patient have a stroke diagnosis?: No VTE Prior VTE?: No VTE Risk Level:: Medical - moderate - high VTE Device Contraindication: Treatment Not Indicated VTE Drug Contraindication: N/A - Med Ordered
[2024-08-02 07:44] VITALS: BP 148/92; PULSE 97; RESP 20; TEMP 36.6; O2SAT 95
[2024-08-02] MEDS: Nystatin Oral Susp 500,000 UNIT/5 ML ORAL.SUSP 200000 UNIT PO ×2 (08:35→12:40)
[2024-08-02] MEDS: Cyanocobalamin (Vitamin B-12) 100 MCG TABLET PO (08:36)
[2024-08-02] MEDS: Gabapentin 600 MG TABLET PO (08:36)
[2024-08-02] MEDS: amLODIPine Besylate 10 MG TABLET PO (08:36)
[2024-08-02] MEDS: Topiramate 100 MG TABLET PO (08:36)
[2024-08-02] MEDS: methADONE HCl 20 MG/2 ML ORAL.CONC 100 MG PO (08:36)
[2024-08-02] MEDS: buPROPion HCl XL 300 MG TAB.ER.24H PO (08:36)
[2024-08-02] MEDS: Multivitamin TABLET 1 TAB PO (08:36)
[2024-08-02] MEDS: 0.9 % Sodium Chloride Flush 3 ML SYRINGE IVFLUSH (08:42)
[2024-08-02 08:50] LABS: Hematocrit 26.3 % (37.0-47.0); Hemoglobin 8.1 g/dl (12.0-16.0); Mean Corpuscular HGB Conc 30.8 g/dl (31.0-35.0); Mean Corpuscular Hemoglobin 29.3 pg (27.0-33.0); Mean Corpuscular Volume 95.3 fL (80.0-98.0); NRBC Pct Auto 0.3 /100WBC (0.0-0.2); PLT CLUMP 1; Red Blood Count 2.76 X10*6/uL (4.20-5.50); Red Cell Distribution Width 22.6 % (11.0-16.0)
--- NOTE | 2024-08-02 08:56 | P.PNIM_ITS ---
Subjective Subjective Date of Service: 08/02/24 Interval History: refused debridement today because add on Physical Exam 2 Vital Signs: Vital Signs: Last Vital Signs Temp 97.9 F 08/02/24 07:44 Pulse 97 08/02/24 07:44 Resp 20 08/02/24 07:44 BP 148/92 H 08/02/24 07:44 Pulse Ox 95 08/02/24 07:44 O2 Del Method Room Air 08/02/24 07:44 O2 Flow Rate 2 08/02/24 04:00 BMI result Body Mass Index 25.2 Const: General: comfortable and no acute distress Resp: Effort & Inspection: normal respiratory effort Cardio: Rate: regular rate Extrem: Other: Dressings in place, dry, no foul smell Objective Data Active Medications Acetaminophen (Acetaminophen 325 Mg Tablet) 650 mg PO Q6H PRN PRN Reason: Pain, Mild 1-3,fever,headache Last Admin: 08/01/24 20:03 Dose: 650 mg Documented By: WILLIE Albuterol Sulfate (Albuterol Sulfate 90 Mcg 8 Gm Inhaler) 2 puff INHALE RQ4H PRN PRN Reason: Wheezing Albuterol/Ipratropium (Albuterol/Iprat 2.5/0.5mg 3 Ml Ampul.Neb) 3 ml INHALE Q4H PRN PRN Reason: Wheezing Amlodipine Besylate (Amlodipine Besylate 10 Mg Tablet) 10 mg PO DAILY [facility]; Protocol Last Admin: 08/02/24 08:36 Dose: 10 mg Documented By: ARIS Benzocaine (Throat Lozenge, Medicated Lozenge) 1 lozenge MUCOUS MEM Q2H PRN PRN Reason: Sore Throat Bupropion HCl (Bupropion Hcl Xl 300 Mg Tab.Er.24h) 300 mg PO DAILY [facility] Last Admin: 08/02/24 08:36 Dose: 300 mg Documented By: ARIS Ceftriaxone Sodium (Ceftriaxone Sodium 1 Gm Vial) 1 gm IVPUSH Q24H [facility] Last Admin: 08/01/24 11:20 Dose: 1 gm Documented By: GEETHA Cinacalcet (Cinacalcet Hcl 30 Mg Tablet) 30 mg PO TuThSa [facility] Last Admin: 07/30/24 12:05 Dose: 30 mg Documented By: ELINA Clonidine HCl (Clonidine Hcl 0.1 Mg Tablet) 0.1 mg PO BID PRN; Protocol PRN Reason: Anxiety Clonidine HCl (Clonidine Hcl 0.2 Mg Tablet) 0.2 mg PO BEDTIME [facility]; Protocol Last Admin: 08/01/24 20:02 Dose: 0.2 mg Documented By: WILLIE Cyanocobalamin (Cyanocobalamin (Vitamin B-12) 100 Mcg Tablet) 100 mcg PO DAILY [facility] Last Admin: 08/02/24 08:36 Dose: 100 mcg Documented By: ARIS Doxepin HCl (Doxepin Hcl 10 Mg Capsule) 10 mg PO BEDTIME [facility] Last Admin: 08/01/24 19:50 Dose: 10 mg Documented By: WILLIE Gabapentin (Gabapentin 600 Mg Tablet) 600 mg PO BID [facility] Last Admin: 08/02/24 08:36 Dose: 600 mg Documented By: ARIS Heparin Sodium (Porcine) (Heparin Sodium,Porcine 5,000 Unit/Ml Vial) 5,000 unit SUBCUT Q8H [facility] Last Admin: 08/02/24 08:45 Dose: Not Given Documented By: ARIS Non-Admin Reason: Patient Refused Hydromorphone HCl (Hydromorphone Hcl 1 Mg/Ml Syringe) 1 mg IVPUSH Q2H PRN; Protocol PRN Reason: Pain, Severe (Pain Scale 7-10) Last Admin: 08/02/24 06:17 Dose: 1 mg Documented By: WILLIE Hydroxyzine HCl (Hydroxyzine Hcl 50 Mg Tablet) 50 mg PO TID PRN PRN Reason: Anxiety Last Admin: 07/29/24 13:19 Dose: 50 mg Documented By: GEETHA Sodium Thiosulfate 12.5 gm/ (Sodium Chloride) 200 mls @ 400 mls/hr IV TuThSa@1600 [facility] Melatonin (Melatonin 3 Mg Tablet) 6 mg PO BEDTIME PRN PRN Reason: Insomnia Methadone HCl (Methadone Hcl 20 Mg/2 Ml Oral.Conc) 100 mg PO DAILY [facility] Last Admin: 08/02/24 08:36 Dose: 100 mg Documented By: ARIS Co-signed By: NAMAN Methadone HCl (Methadone Hcl 20 Mg/2 Ml Oral.Conc) 95 mg PO BEDTIME [facility] Last Admin: 08/01/24 19:53 Dose: 95 mg Documented By: WILLIE Co-signed By: VENECIA Multivitamins/Vitamin C (Multivitamin Tablet) 1 tab PO DAILY [facility] Last Admin: 08/02/24 08:36 Dose: 1 tab Documented By: ARIS Non-Formulary Medication (Lumateperone [Caplyta]) 42 mg PO DAILY [facility] Nystatin (Nystatin Oral Susp 500,000 Unit/5 Ml Oral.Susp) 200,000 unit PO QID [facility]; Protocol Last Admin: 08/02/24 08:35 Dose: 200,000 unit Documented By: ARIS Omeprazole (Omeprazole 20 Mg Capsule.Dr) 20 mg PO DAILY@0630 [facility] Last Admin: 08/02/24 05:12 Dose: 20 mg Documented By: WILLIE Polyethylene Glycol (Polyethylene Glycol 3350 17 Gm Powd.Pack) 17 gm PO DAILY PRN PRN Reason: Constipation Quetiapine Fumarate (Quetiapine Fumarate 50 Mg Tablet) 50 mg PO TID PRN PRN Reason: Anxiety Last Admin: 07/28/24 23:39 Dose: 50 mg Documented By: GERRY Sodium Chloride (0.9 % Sodium Chloride Flush 3 Ml Syringe) 3 ml IVFLUSH QSHIFT [facility] Last Admin: 08/02/24 08:42 Dose: 3 ml Documented By: ARIS Topiramate (Topiramate 100 Mg Tablet) 100 mg PO BID [facility] Last Admin: 08/02/24 08:36 Dose: 100 mg Documented By: ARIS Trazodone HCl (Trazodone Hcl 100 Mg Tablet) 100 mg PO BEDTIME PRN PRN Reason: Insomnia Last Admin: 07/28/24 23:38 Dose: 100 mg Documented By: GERRY Warfarin Sodium (Warfarin Sodium 2.5 Mg Tablet) 2.5 mg PO DAILY@1800 [facility] Last Admin: 08/01/24 17:32 Dose: Not Given Documented By: GEETHA Non-Admin Reason: Physician Held Med Labs 08/02/24 08:22 07/31/24 15:15 Labs: Laboratory Results - last 24 hr 08/01/24 08/02/24 13:56 08:22 MCV 95.3 MCH 29.3 MCHC 30.8 L RDW 22.6 H Absolute Nucleated RBC 0.050 H Nucleated RBC % (auto) 0.3 H PT 58.3 H D INR 5.0 H* D Assessment and Plan (1) Antiphospholipid antibody syndrome: Status: Acute Plan 43F PMH ESRD, SLE, antiphospholipid syndrome, history of DVTs on warfarin, history of MRSA bacteremia, opiate dependence on methadone, cocaine use, hypertension, GERD, migraines presented with worsening bilateral lower leg wounds 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 Complicated by sepsis due to Klebsiella bacteremia Continue with pain meds, ceftriaxone ID appreciated - recommended continuing ceftriaxone only and bone scan to rule out OM/determine duration of therapy sodium thiosulfate with dialysis sessions pain control, debridement planned for today, however, patient keeps changing her mind about consenting to procedure, will replan again for tomorrow End-stage renal disease, hyperpth Continue hemodialysis stopped vitd started sensipar Antiphospholipid syndrome Continue Coumadin though associated with calciphylaxis, no alternative Hypertension Amlodipine, clonidine Opiate dependence Continue methadone DVT prophylaxis with warfarin Full code - poor prognosis reason for continued hospitalization: iv abx, plan for debridement Quality Stroke Does the patient have a stroke diagnosis?: No VTE Prior VTE?: No VTE Risk Level:: Medical - moderate - high VTE Device Contraindication: Treatment Not Indicated VTE Drug Contraindication: N/A - Med Ordered
[2024-08-02] MEDS: cefTRIAXone sodium 1 GM VIAL IVPUSH (09:07)
[2024-08-02] MEDS: Cinacalcet HCl 30 MG TABLET PO (09:07)
[2024-08-02 09:08] LABS: Anion Gap 19 (12-20); Blood Urea Nitrogen 39 mg/dL (9-16); Calcium 8.5 mg/dL (8.4-10.2); Carbon Dioxide 21 mmol/L (22-29); Chloride 104 mmol/L (96-108); Creatinine Clr Calc Pharmacy 20.8; Estimated Glomerular Filt Rate 14; Glucose Random 71 mg/dL (60-115); Potassium 5.1 mmol/L (3.3-5.1); Sodium 139 mmol/L (135-145)
[2024-08-02 09:29] LABS: White Blood Count 19.5 X10*3/uL (4.8-10.8)
--- NOTE | 2024-08-02 09:42 | HO.VASCPN ---
Subjective Subjective Date of Service: 08/02/24 Interval history: Melita is doing ok. She states she will likely have the OR wound debridement tomorrow. She is due for dialysis today. She continues to endorse pain in her lower extremities as well as her lower back. She has no new concerns today. Physical Exam Vital Signs: Vital Signs: Last Vital Signs Temp 97.9 F 08/02/24 07:44 Pulse 97 08/02/24 07:44 Resp 20 08/02/24 07:44 BP 148/92 H 08/02/24 07:44 Pulse Ox 95 08/02/24 07:44 O2 Del Method Room Air 08/02/24 07:44 O2 Flow Rate 2 08/02/24 04:00 BMI result Body Mass Index 25.2 Const: General: comfortable and no acute distress Orientation/consciousness: patient oriented x3 HEENT: Ears: hearing grossly normal bilaterally Resp: Effort & Inspection: normal respiratory effort and able to speak in complete sentences Auscultation: clear to auscultation bilaterally Cardio: Rate: regular rate Rhythm: regular rhythm Heart sounds: S1 normal heart sound present and S2 normal heart sound present Bruits: no abdominal aortic bruits, no carotid bruits, no femoral bruits and no renal bruits GI: Palpation (GI): No Abdominal aortic bruit present Neuro: General: patient oriented x3 Cranial nerves: Yes CN's II-XII intact bilaterally Extrem: Other: Bilateral lower extremities: wrapped, not taken down. Progress Note: A&P Assessment and plan (1) Wounds, multiple open, lower extremity: Status: Acute Assessment and Plan: Melita remains stable from a vascular standpoint. She will likely be going to the OR tomorrow with Dr Whalen for wound debridement of the bilateral lower extremities. We will be signing off, there are no vascular surgical interventions needed at this point. She remains with palpable DP and PT pulses bilaterally. If there are any questions or concerns, please do not hesitate to reach out to us. Time Spent With Patient Time: Total time managing care of this patient today ____ minutes. Procedures Date of Service Date of Service: 08/02/24 Quality Stroke Does the patient have a stroke diagnosis?: No VTE Prior VTE?: No VTE Risk Level:: Medical - moderate - high VTE Device Contraindication: Treatment Not Indicated VTE Drug Contraindication: N/A - Med Ordered
[2024-08-02 09:44] LABS: INTERNATIONAL NORM RATIO 3.4 (0.9-1.1); Prothrombin Time 39.5 SEC (10.9-12.4)
--- NOTE | 2024-08-02 10:08 | P.PNNP_ITS ---
Subjective Subjective Date of Service: 08/03/24 Interval history: Very frustrated. Physical Exam 2 Vital Signs: Vital Signs: Last Vital Signs Temp 97.9 F 08/02/24 07:44 Pulse 97 08/02/24 07:44 Resp 20 08/02/24 07:44 BP 148/92 H 08/02/24 07:44 Pulse Ox 95 08/02/24 07:44 O2 Del Method Room Air 08/02/24 07:44 O2 Flow Rate 2 08/02/24 04:00 BMI result Body Mass Index 25.2 Const: General: comfortable and no acute distress; No acute distress O rientation/consciousness: patient oriented x3 Eyes: General: appearance normal, both eyes and all related structures V isual [place]: normal visual [place]or[place] by confrontation EOM: EOMs intact bilaterally Neck: Neck: Yes supple and Yes no JVD Resp: Effort & Inspection: normal respiratory effort and respiratory effort not decreased Auscultation: rhonchi and diminished lung sounds Cardio: Palpation: no palpable S3 and no palpable S4 Rate: regular rate Heart sounds: no rubs GI: Inspection: Yes normal to inspection Palpation (GI): Soft to palpation Percussion: Yes normal to percussion Auscultation: normal bowel sounds : General: Yes no CVA tenderness Back/Spine/Pelvis: Back: no CVA tenderness Neuro: General: patient oriented x3, moves all extremities and no focal motor deficits Extrem: Other: Both lower extremities have wound with black eschar General: No clubbing and No edema Objective Data Labs 08/02/24 08:22 08/02/24 08:21 Labs: Laboratory Results - last 24 hr 08/01/24 08/02/24 08/02/24 13:56 08:21 08:22 WBC 19.5 H RBC 2.76 L Hgb 8.1 L Hct 26.3 L MCV 95.3 MCH 29.3 MCHC 30.8 L RDW 22.6 H Plt Count TNP MPV TNP Absolute Nucleated RBC 0.050 H Nucleated RBC % (auto) 0.3 H PT 58.3 H D INR 5.0 H* D Sodium 139 Potassium 5.1 Chloride 104 Carbon Dioxide 21 L Anion Gap 19 BUN 39 H Creatinine 3.47 H Estim Creat Clear Calc 20.8 Estimated GFR 14 Random Glucose 71 Calcium 8.5 D 08/02/24 09:29 WBC RBC Hgb Hct MCV MCH MCHC RDW Plt Count MPV Absolute Nucleated RBC Nucleated RBC % (auto) PT 39.5 H D INR 3.4 H Sodium Potassium Chloride Carbon Dioxide Anion Gap BUN Creatinine Estim Creat Clear Calc Estimated GFR Random Glucose Calcium Microbiology Microbiology Results: Microbiology 07/30/24 Unknown Urine clean catch - Clean Catch Midstream Urine Culture - Final 07/27/24 14:57 Blood - Venous Blood Culture - Final Klebsiella pneumoniae 07/27/24 14:53 Blood - Venous Blood Culture - Final Klebsiella pneumoniae Procedures Date of Service Date of Service: 08/03/24 Assessment & Plan Assessment and plan (1) End stage renal disease on dialysis: Status: Acute (2) Antiphospholipid antibody syndrome: Status: Acute Plan 43-year-old woman with end stage renal disease on maintenance hemodialysis. She has wounds in both legs with black eschar. Clinically appears like calciphylaxis. Plan optimize dialysis. Keep on sodium thiosulfate Daily dialysis Addendum Echo:Large right atrial mass probably attached to catheter tip suggestive of a vegetation Discussed with Consult vascular and needs transfer to tertiary center Time Spent With Patient Time: Total time managing care of this patient today ____ minutes. Progress Note: Quality Stroke Does the patient have a stroke diagnosis?: No
--- NOTE | 2024-08-02 10:40 | MHC.RECOVRN ---
Briefly met with pt in [facility]. Sitting up in bed eating breakfast. Pt A&O but having some difficulty word finding. Pt reports feeling better as she is using the PRN pain meds more frequently. Pt reports she initially had a debriedment scheduled for 4PM today after dialysis but felt like this would be to much so she requested to change it and reports it is now tomorrow at noon before dialysis. Pt denies other questions or concerns for t/w. Ongoing support provided.
[2024-08-02] MEDS: hydrOXYzine HCL 50 MG TABLET PO (14:00)
[2024-08-02 15:48] VITALS: BP 166/92; PULSE 92; RESP 20; TEMP 37.6; O2SAT 93
--- NOTE | 2024-08-02 16:34 | PM.DS ---
DS: Providers Provider Date of Service: 08/02/24 Date of admission: 07/27/24 16:51 Date of discharge: 08/02/24 Primary care physician: LEIGHTON Valadez Consults: 07/27/24 15:19 Consult to General Surgery Stat Consulting Provider: [facility] Reason for consultation: ? debridement legs 07/27/24 15:29 Consult to Vascular Surgery Stat Consulting Provider: [facility] Reason for consultation: leg necrosis 07/27/24 16:22 Addiction Medicine Stat Consulting Provider: [facility] Reason for consultation: hx substance abuse 07/27/24 17:01 Consult to Nephrology Routine Consulting Provider: [facility] Reason for consultation: ESRD on HD //Thu07/28/24 09:49 Consult to Wound Care Routine Reason for consultation: multiple extensive wounds Has provider been notified: Yes 07/30/24 09:14 Consult to Infectious Diseases Routine Consulting Provider: [facility] Reason for consultation: Infected ulcers in calciphylaxis, Klebsiella bacteremia DS: Diagnosis Discharge Diagnosis (1) End stage renal disease on dialysis: Status: Acute (2) Antiphospholipid antibody syndrome: Status: Acute DS: Summary Hospital Course Hospital Course: inti 43-year-old female with a PMH significant for ESRD on HD, lupus, antiphospholipid syndrome with hx of DVTs on warfarin, anemia of chronic disease, hx of MRSA bacteremia, opioid use disorder on methadone, cocaine use disorder, HTN, GERD, and migraines who presents to the ED with worsening bilateral lower leg wounds x1 week. Overall pt is a poor and vague historian, and additional HPI supplemented by chart review. Pt reports when she was discharged from the hospital on 06/14/2024 she had to water blisters on both of her legs. was seen and evaluated by Wound Care who noted small 1 x 1 x 0.4 cm ulceration on right lower extremity who suggested treatment with nerve fiber Ag and cover with foam dressing with dressing changes every other day. Pt was sent home with VNA services who continued to Change dressing. Unclear when last VNA visit was. Pt reports approximately 1 week ago she noticed her wounds were growing and worsening. began having pus like drainage that smelled like peppermint . Some numbness and tingling in extremities , as well as subjective fever and chills. pt also complains of severe 12/10 pain with ambulation, but was noted to be ambulating on her own with her walker without difficulty from triage to ED room. Today pt comes at the request of her aunt who recently visited her. Pt reports compliance with all her home meds. Reports no recent drug use, although pt is unable to state either when she last injected or where on her body. In the ED pt was hypertensive up to 164/110, vitals otherwise WNL. Labs were significant for Leukocytosis of 21.9, Sodium 133, BUN 56, creatinine 4.45, alk-phos 309, CPK 14, CRP 18.72, ESR pending. INR subtherapeutic at 1.4. H&H stable at 8 0.4/27.6. Left and righttibia and fibula x-rays s/p internal fixation of left tibia butwithout evidence of osteomyelitis bilaterally. ED clinician used Doppler imaging to detect good pedal pulses.Pt was treated with morphine, cefepime, and vancomycin. Pt will be admitted to the hospital for treatment and further evaluation of worsening bilateral lower extremity wounds with cellulitis concerning for antiphospholipid syndrome skin necrosis vs calciphylaxis vs cocaine-induced necrosis. hospital course: Admitted for multiple necrotic skin lesions suspected to be due to calciphylaxis given patient's use of warfarin and end-stage renal disease status. This was further complicated by sepsis and found to have Klebsiella pneumonia bacteremia. She was treated with ceftriaxone. Initially on vancomycin for Gram-positive coverage but seen by infectious disease who recommended ceftriaxone only. Also recommended bone scan to rule out osteomyelitis which is done but report pending. And recommended echocardiogram to rule out vegetation. Patient was treated with dialysis and sodium thiosulfate. There were plans for debridement however patient continuously refused so debridement and biopsy were never obtained. Echocardiogram revealed mobile mass on right atrium appears to be associated with catheter tip 3.9 cm x 1.5 cm. Case was discussed with interventional radiology who felt uncomfortable removing catheter due to lack of Cardiothoracic backup and recommended transfer to tertiary center. Patient will be transferred to [facility]. For end-stage renal disease was receiving dialysis, her end-stage renal disease complicated by hyperparathyroidism, her vitamin-D was discontinued and was started on Sensipar. For hypertension was continued on amlodipine and clonidine. For antiphospholipid syndrome was continued on warfarin even though she likely has calciphylaxis there is no effective alternative. Initially on presentation INR was only 1.4. It went as high as 5 and warfarin was held, it was 3.4 at time of transfer. For opiate dependence was continued on methadone. For cocaine dependence was seen by Addiction team and abstinence recommended. Time Attestation Discharge Coordination Time (in mins): 35 Quality: Safe Use of Opioids Does Pt have an Active Cancer Diagnosis on the Problem List?: No Quality: Stroke Does the patient have a stroke diagnosis?: No Physical Exam Vital Signs: Vital Signs: Last Vital Signs Temp 99.7 F 08/02/24 15:48 Pulse 92 08/02/24 15:48 Resp 20 08/02/24 15:48 BP 166/92 H 08/02/24 15:48 Pulse Ox 93 08/02/24 15:48 O2 Del Method Room Air 08/02/24 15:48 O2 Flow Rate 2 08/02/24 04:00 BMI result Body Mass Index 25.2 Const: General: comfortable and no acute distress; No acute distress Orientation/consciousness: patient oriented x3 Eyes: General: appearance normal, both eyes and all related structures Visual Wing: normal visual wing by confrontation EOM: EOMs intact bilaterally Neck: Neck: Yes supple and Yes no JVD Resp: Effort & Inspection: normal respiratory effort and respiratory effort not decreased Auscultation: rhonchi and diminished lung sounds Cardio: Palpation: no palpable S3 and no palpable S4 Rate: regular rate Heart sounds: no rubs GI: Inspection: Yes normal to inspection Palpation (GI): Soft to palpation Percussion: Yes normal to percussion Auscultation: normal bowel sounds : General: Yes no CVA tenderness Back/Spine/Pelvis: Back: no CVA tenderness Neuro: General: patient oriented x3, moves all extremities and no focal motor deficits Extrem: Other: Both lower extremities have wound with black eschar General: No clubbing and No edema DS: Data Data Completed and Pending Completed studies during hospitalization [Text1]: Procedures Detoxification Services for Substance Abuse Treatment (05/09/21) Excision of Right Kidney, Percutaneous Approach, Diagnostic (05/29/24) Insertion of Infusion Device into Right Basilic Vein, Percutaneous Approach (02/13/21) Insertion of Infusion Device into Superior Vena Cava, Percutaneous Approach (05/29/24) Insertion of Tunneled Vascular Access Device into Chest Subcutaneous Tissue and Fascia, Percutaneous Approach (05/29/24) Performance of Urinary Filtration, Intermittent, Less than 6 Hours Per Day (05/29/24) Ultrasonography of Superior Vena Cava, Guidance (05/29/24) Labs on day of discharge: Laboratory Results - last 24 hr 08/02/24 08/02/24 08/02/24 08:21 08:22 09:29 WBC 19.5 H RBC 2.76 L Hgb 8.1 L Hct 26.3 L MCV 95.3 MCH 29.3 MCHC 30.8 L RDW 22.6 H Plt Count TNP MPV TNP Absolute Nucleated RBC 0.050 H Nucleated RBC % (auto) 0.3 H PT 39.5 H D INR 3.4 H Sodium 139 Potassium 5.1 Chloride 104 Carbon Dioxide 21 L Anion Gap 19 BUN 39 H Creatinine 3.47 H Estim Creat Clear Calc 20.8 Estimated GFR 14 Random Glucose 71 Calcium 8.5 D Discharge Plan Discharge Anticipated Discharge Date/Time: 08/02/24 16:22 Patient Disposition: Xfer [facility] Discharge Diagnosis: calciphylaxis, sepsis klebsiella pneumonia bacteremia, catheter tip vegetation Referrals: Jose Rashid, [employer] DISPATCH CLERK- [Primary Care Provider] - 1 Week Discharge Medications: New ceftriaxone 1 gram Recon Soln 1 g IVPUSH Q24H Qty: 0 0RF cinacalcet [Sensipar] 30 mg Tablet 30 mg PO TuThSa Qty: 0 0RF Continued (DME) walker Misc See Rx Instructions .Route Qty: 1 0RF Rx Instructions: 4 wheeled walker with seat and brakes (DME) Grab bar Misc See Rx Instructions .Route Qty: 2 0RF Rx Instructions: Grab bars for shower (DME) commode Kit See Rx Instructions .Route Qty: 1 0RF Rx Instructions: 3 in 1 commode oxycodone 5 mg tablet 5 mg PO BID PRN (Reason: Pain) 12 Days Qty: 24 0RF Rx Instructions: NARCOTIC. can only take as prescribed, cannot share med, cannot drive while on med methadone [Methadose] 10 mg/mL concentrate 95 mg PO BEDTIME Rx Instructions: Partial Fill upon patient request. multivitamin Tablet 1 tab PO DAILY Qty: 30 1RF methadone 10 mg/mL Concentrate 100 mg PO DAILY nystatin 100,000 unit/mL suspension 4 ml PO DAILY PRN (Reason: FLARES) Qty: 60 0RF acetaminophen 325 mg Tablet 650 mg PO Q6H PRN (Reason: Headache/Pain Mild Scale (1-3)) Qty: 90 0RF gabapentin 600 mg tablet 600 mg PO BID 30 Days Qty: 60 1RF cyanocobalamin (vitamin B-12) [Vitamin B-12] 100 mcg Tablet 100 mcg PO DAILY Qty: 30 0RF hydroxyzine pamoate 50 mg capsule 50 mg PO TID PRN (Reason: Anxiety) Qty: 90 0RF clonidine HCl 0.2 mg tablet 0.2 mg PO BEDTIME Qty: 30 0RF Protocol: Hold for SBP< HOLD for SBP < : 90 amlodipine 10 mg tablet 10 mg PO DAILY 30 Days Qty: 30 1RF Protocol: Hold for SBP< HOLD for SBP < : 90 omeprazole 20 mg capsule,delayed release(DR/EC) 20 mg PO DAILY@0630 Qty: 30 0RF albuterol sulfate [Ventolin HFA] 90 mcg/actuation Hfa Aerosol Inhaler 2 puff inhalation RQ4H PRN (Reason: Wheezing) Qty: 1 1RF ondansetron 4 mg Tablet,Disintegrating 4 mg PO Q6H PRN (Reason: Migraine Headache) Qty: 60 1RF bupropion HCl 300 mg tablet extended release 24 hr 300 mg PO DAILY Qty: 30 0RF Caplyta 42 mg capsule 42 mg PO DAILY Qty: 30 0RF polyethylene glycol 3350 17 gram Powder In Packet 17 g PO DAILY PRN (Reason: Constipation) Qty: 14 0RF trazodone 100 mg Tablet 100 mg PO BEDTIME PRN (Reason: Insomnia) Qty: 30 0RF topiramate 100 mg tablet 100 mg PO BID Qty: 60 0RF quetiapine 50 mg tablet 50 mg PO TID PRN (Reason: Anxiety) Qty: 90 0RF meloxicam 15 mg tablet 15 mg PO DAILY doxepin 10 mg capsule 10 mg PO BEDTIME clonidine HCl 0.1 mg tablet 0.1 mg PO BID PRN (Reason: Anxiety) warfarin 2.5 mg tablet 2.5 mg PO DAILY@1800 Discontinued ergocalciferol (vitamin D2) [Vitamin D2] 1,250 mcg (50,000 unit) Capsule 1,250 mcg PO Fr@0900 Qty: 8 0RF calcitriol 0.25 mcg Capsule 0.25 mcg PO TUTHSA Qty: 30 0RF Discharge Orders: Discharge Order (Routine); Ordered 08/02/24 Ordered By: Rell Li Diet: Advance to usual diet Activity on Discharge: As tolerated Stand Alone Forms: Patient Portal Discharge page Print Language: Swazi Care Plan Goals: recovery Health Concerns: vegetation, calciphylaxis Plan of Treatment: trasnfer to [facility], plan for removal of catheter with CT surgery back up, continue rocpehin, follow up cultures, surgery for ?debridement, sodium thiosulfate can return to [facility] when no longer needing tertiary center Assessment: see above
--- NOTE | 2024-08-02 16:47 | PC.NURSE ---
Pt to be transferred to [address] RN to RN given to Mira.
--- NOTE | 2024-08-02 21:17 | P.CNID_ITS ---
History of Present Illness Data of Consult Service Date: 08/01/24 Requesting physician: Rell Li Primary Care Provider: Jose Rashid [facility]- HPI Reason for consult: bacteremia,Klebsiella She presents with fatigue and weakness. She has more redness and scabbing legs. She has blood cultures 07/27 x [address] shows cirrhosis and ascites. She has left tibial ORIF and infected ulcers with calciphylaxis. She has antiphospholipid antibody syndrome an ESRD on HD. Review of Systems 2 Review of Systems: Yes all other systems are reviewed and are negative PMFSH Past Medical History Medical History Eschar of lower leg Chronic liver disease End stage renal disease on dialysis Secondary hyperparathyroidism (of renal origin) Accelerated essential hypertension Tobacco abuse Opioid use disorder Lupus (systemic lupus erythematosus) Leukocytosis Bacteremia Left tibial fracture Acute renal failure superimposed on chronic kidney disease Cocaine abuse CKD (chronic kidney disease) Antiphospholipid antibody syndrome MDD (major depressive disorder), recurrent episode, moderate Opioid use disorder, severe, dependence Cocaine use disorder Cellulitis Substance abuse Seizures Candidemia Opioid use disorder, severe, dependence PTSD (post-traumatic stress disorder) Bipolar disorder Opiate abuse, continuous Pulmonary emboli DVT (deep venous thrombosis) [place] filter in place Pneumonia Lupus Family History Family history: reviewed and not pertinent Surgical History Surgical History History of appendectomy Hx of splenectomy Social History Social History Household Members: Children Housing: Apartment Housing Other:: lIVING IN A Program House Do you presently have visiting nurse or other home services: No (states she fired them) Alcohol intake: never Patient Tobacco Use Status: Never used Tobacco Tobacco use type: Cigarette Cigarettes Per Day: 2 Years Smoked: 24 e-Cigarette/Vaping Use: Never Used Second Hand Smoke Exposure: No Substance Use Type: Crack/Cocaine Advance Directives Date on File: 02/14/21 service: No Current occupational status: employed and student Sexual orientation: Did not discuss Cognitive needs: No Hearing needs: No Vision needs: No Meds Allergies Allergy/AdvReac Type Severity Reaction Status Date / Time No Known Allergies Allergy Verified 07/27/24 13:47 Home Medications ?Medication ?Instructions ?Recorded ?Confirmed ?Last Taken ?Type methadone 10 mg/mL oral 95 mg PO BEDTIME 02/12/22 07/27/24 07/27/24 History concentrate (Methadose) methadone 10 mg/mL oral concentrate 100 mg PO DAILY 05/30/24 07/27/24 07/27/24 History clonidine HCl 0.1 mg tablet 0.1 mg PO BID PRN Anxiety 07/27/24 07/27/24 07/27/24 History doxepin 10 mg capsule 10 mg PO BEDTIME 07/27/24 07/27/24 07/27/24 History meloxicam 15 mg tablet 15 mg PO DAILY 07/27/24 07/27/24 07/27/24 History warfarin 2.5 mg tablet 2.5 mg PO DAILY@1800 07/27/24 07/27/24 07/27/24 History Physical Exam 2 Vital Signs: Vital Signs: Last Vital Signs Temp 99.7 F 08/02/24 15:48 Pulse 92 08/02/24 15:48 Resp 20 08/02/24 15:48 BP 166/92 H 08/02/24 15:48 Pulse Ox 93 08/02/24 15:48 O2 Del Method Room Air 08/02/24 15:48 O2 Flow Rate 2 08/02/24 04:00 BMI result Body Mass Index 25.2 Const: General: cooperative HEENT: Head: Yes normal to inspection Face and sinus: Yes normal facial exam Mouth: Normal oral and palatal mucosa present Teeth and gingiva: d entition normal Eyes: General: appearance normal, both eyes and all related structures P upils: Equal, round and reactive pupils present Resp: Effort & Inspection: normal respiratory effort Cardio: Other: 2/6 RUBY Rate: regular rate Rhythm: regular rhythm GI: Palpation (GI): Soft to palpation and nontender : General: Yes no CVA tenderness Back/Spine/Pelvis: Back: no CVA tenderness Skin: General skin exam: no rashes or lesions noted Neuro: General: moves all extremities Cranial nerves: Yes Equal, round and reactive pupils present Extrem: Other: clear HD cath scabs on legs Psych: Appearance: grossly normal Results Labs 08/02/24 08:22 08/02/24 08:21 Labs: Short CBC 08/02/24 Range/Units 08:22 WBC 19.5 H (4.8-10.8) X10*3/uL Hgb 8.1 L (12.0-16.0) g/dl Hct 26.3 L (37.0-47.0) % Plt Count TNP BMP 08/02/24 08:21 Sodium 139 Potassium 5.1 Chloride 104 Carbon Dioxide 21 L BUN 39 H Creatinine 3.47 H Calcium 8.5 D Microbiology Microbiology Results: Microbiology 07/30/24 Unknown Urine clean catch - Clean Catch Midstream Urine Culture - Final 07/27/24 14:57 Blood - Venous Blood Culture - Final Klebsiella pneumoniae 07/27/24 14:53 Blood - Venous Blood Culture - Final Klebsiella pneumoniae Assessment and Plan (1) Renal failure: Qualifiers: Chronic kidney disease stage: on chronic dialysis Renal failure chronicity: chronic Qualified Code(s): N18.6 - End stage renal disease; Z99.2 - Dependence on renal dialysis Status: Acute (2) Leukocytosis: Qualifiers: Leukocytosis type: unspecified Qualified Code(s): D72.829 - Elevated white blood cell count, unspecified Status: Acute (3) Wounds, multiple open, lower extremity: Status: Acute Plan Source could include legs which had Klebsiella in past also less likely ascites doubt urine Would continue Ceftriaxone. Check legs with bone scan evaluate OM. If no OM would give total po cephalosporin for 14 days
== END 2024-08-02 17:50 | disposition short-term general hospital (02) | DRG 640 ==
LOC: HO.ED 15:00 → HO.EDOVER 17:12 → HO.S3 07-28 07:43
PROVIDERS: Internal Medicine Hypertension Specialist; Physician Assistant; Admitting Provider Student in an Organized Health Care Education/Training Program; Emergency Provider Emergency Medicine; PCP Nurse Practitioner Family; Visit Provider Internal Medicine
DX: E83.59 Other disorders of calcium metabolism (principal); L89.323 Pressure ulcer of left buttock, stage 3; N18.6 End stage renal disease; T82.898A Other specified complication of vascular prosthetic devices, implants and grafts, initial encounter; I12.0 Hypertensive chronic kidney disease with stage 5 chronic kidney disease or end stage renal disease; F11.20 Opioid dependence, uncomplicated; D68.61 Antiphospholipid syndrome; L89.312 Pressure ulcer of right buttock, stage 2; L94.2 Calcinosis cutis; F17.210 Nicotine dependence, cigarettes, uncomplicated; B96.1 Klebsiella pneumoniae [K. pneumoniae] as the cause of diseases classified elsewhere; Z71.6 Tobacco abuse counseling; Y82.8 Other medical devices associated with adverse incidents; M32.9 Systemic lupus erythematosus, unspecified; D63.1 Anemia in chronic kidney disease; Z99.2 Dependence on renal dialysis; Z86.14 Personal history of Methicillin resistant Staphylococcus aureus infection; Z86.718 Personal history of other venous thrombosis and embolism; Z79.01 Long term (current) use of anticoagulants; Z79.899 Other long term (current) drug therapy
CPT/HCPCS: 36415; 71045; 73590; 78315; 80048; 80053; 80202; 80307; 81001; 82550; 83605; 83690; 83735; 83970; 84100; 84702; 85025; 85027; 85610; 85652; 86140; 87040; 87077; 87086; 87186; 87205; 90999; 93306; 99285; A9503; J0131; J0209; J0692; J0696; J1171; J1940; J2270; J3370; S9485

== ENCOUNTER → 2024-07-27 13:48 | Outpatient (BNV) | payer OTHER, SELFPAY | PROVIDERS: Emergency Provider Emergency Medicine; PCP Nurse Practitioner Family; Visit Provider Radiology Diagnostic Radiology | DX: I70.203 Unspecified atherosclerosis of native arteries of extremities, bilateral legs (principal); Z96.698 Presence of other orthopedic joint implants | CPT/HCPCS: 73590 ==

== ENCOUNTER 2024-07-27 16:51 | Outpatient (BNV) | payer OTHER, SELFPAY | END 2024-08-02 12:00 | PROVIDERS: Admitting Provider Student in an Organized Health Care Education/Training Program; Emergency Provider Emergency Medicine; PCP Nurse Practitioner Family; Visit Provider Radiology Diagnostic Radiology | DX: M86.2 Subacute osteomyelitis (principal) | CPT/HCPCS: 78315 ==

== ENCOUNTER 2024-07-27 16:51 | Outpatient (BNV) | payer OTHER, SELFPAY | END 2024-07-31 10:50 | PROVIDERS: Admitting Provider Student in an Organized Health Care Education/Training Program; Emergency Provider Emergency Medicine; PCP Nurse Practitioner Family; Visit Provider Radiology Vascular & Interventional Radiology | DX: R91.8 Other nonspecific abnormal finding of lung field (principal) | CPT/HCPCS: 71045 ==

== ENCOUNTER 2024-07-27 16:51 | Outpatient (BNV) | payer OTHER, SELFPAY | END 2024-08-02 07:00 | PROVIDERS: Admitting Provider Student in an Organized Health Care Education/Training Program; Emergency Provider Emergency Medicine; PCP Nurse Practitioner Family; Visit Provider Internal Medicine Cardiovascular Disease | DX: I35.1 Nonrheumatic aortic (valve) insufficiency (principal); I34.0 Nonrheumatic mitral (valve) insufficiency; I36.1 Nonrheumatic tricuspid (valve) insufficiency; I27.20 Pulmonary hypertension, unspecified; I33.0 Acute and subacute infective endocarditis | CPT/HCPCS: 93306 ==

== ENCOUNTER → 2024-07-27 16:51 | Outpatient (BNV) | payer OTHER, SELFPAY | PROVIDERS: Admitting Provider Student in an Organized Health Care Education/Training Program; Emergency Provider Emergency Medicine; PCP Nurse Practitioner Family; Visit Provider Internal Medicine Nephrology | DX: N18.6 End stage renal disease (principal); Z99.2 Dependence on renal dialysis; D68.61 Antiphospholipid syndrome | CPT/HCPCS: 90935; 99232 ==

== ENCOUNTER → 2024-07-27 16:51 | Outpatient (BNV) | payer OTHER, SELFPAY | PROVIDERS: Admitting Provider Student in an Organized Health Care Education/Training Program; Emergency Provider Emergency Medicine; PCP Nurse Practitioner Family; Visit Provider Surgery | DX: R23.4 Changes in skin texture (principal) | CPT/HCPCS: 99222; 99232 ==

== ENCOUNTER → 2024-07-27 16:51 | Outpatient (BNV) | payer OTHER, SELFPAY | PROVIDERS: Admitting Provider Student in an Organized Health Care Education/Training Program; Emergency Provider Emergency Medicine; PCP Nurse Practitioner Family; Visit Provider Physician Assistant Surgical | DX: S81.801A Unspecified open wound, right lower leg, initial encounter (principal) | CPT/HCPCS: 99222 ==

== ENCOUNTER → 2024-07-27 16:51 | Outpatient (BNV) | payer OTHER, SELFPAY | PROVIDERS: Admitting Provider Student in an Organized Health Care Education/Training Program; Emergency Provider Emergency Medicine; PCP Nurse Practitioner Family; Visit Provider Student in an Organized Health Care Education/Training Program | DX: D68.61 Antiphospholipid syndrome (principal) | CPT/HCPCS: 99233 ==

== ENCOUNTER → 2024-07-27 16:51 | Outpatient (BNV) | payer OTHER, SELFPAY | PROVIDERS: Admitting Provider Student in an Organized Health Care Education/Training Program; Emergency Provider Emergency Medicine; PCP Nurse Practitioner Family; Visit Provider Internal Medicine | DX: N18.6 End stage renal disease (principal); Z99.2 Dependence on renal dialysis; D72.829 Elevated white blood cell count, unspecified; S81.809A Unspecified open wound, unspecified lower leg, initial encounter | CPT/HCPCS: 99222 ==

== ENCOUNTER 2024-08-18 18:14 | Outpatient (BNV) | payer OTHER, SELFPAY | END 2024-09-05 10:36 | PROVIDERS: Admitting Provider Internal Medicine; PCP Nurse Practitioner Family; Visit Provider Internal Medicine Cardiovascular Disease | DX: I44.0 Atrioventricular block, first degree (principal) | CPT/HCPCS: 93010 ==

== ENCOUNTER 2024-08-18 18:14 | Outpatient (BNV) | payer OTHER, SELFPAY | END 2024-08-24 16:46 | PROVIDERS: Admitting Provider Internal Medicine; PCP Nurse Practitioner Family; Visit Provider Radiology Diagnostic Radiology | DX: R22.32 Localized swelling, mass and lump, left upper limb (principal) | CPT/HCPCS: 93971 ==

== ENCOUNTER 2024-08-18 18:14 | Inpatient (IN) | payer OTHER, SELFPAY ==
--- NOTE | ~2024-08-18 | US_ITS ---
CLINICAL HISTORY: swelling Venous duplex ultrasound left upper extremity COMPARISON: None FINDINGS: Accessible deep venous segments are fully compressible with normal Doppler color flow and spectral tracings. IMPRESSION: 1. Negative for left upper extremity deep vein thrombosis. This document has been electronically signed by: Antonio Rene MD on 08/24/2024 17:33:28
[2024-08-18 18:30] VITALS: BP 147/97; PULSE 77; RESP 18; TEMP 36.8; O2SAT 94
--- NOTE | 2024-08-18 19:43 | P.HPHOSP_ITS ---
History of Present Illness Date of Service: 08/18/24 Attending physician on admission: Ina Salmon Chief Complaint: [facility] transfer Pt is a 43-year-old female with a PMH significant for ESRD on HD, lupus, antiphospholipid syndrome with hx of DVTs on warfarin, anemia of chronic disease, hx of MRSA bacteremia, opioid use disorder on methadone, cocaine use disorder, HTN, GERD, and migraines who initially presented to [facility] on 07/27/2024 with worsening lower leg wounds suspected secondary to calciphylaxis as pt was on warfarin and ESRD on HD. Treated with sodium thiosulfate. Patient's stay was complicated by sepsis and Klebsiella pneumoniae bacteremia. Plan was for debridement of wounds, but pt continually refused and biopsies were never obtained. Had echocardiogram that revealed mobile mass on right atrium suspected to be associated with dialysis catheter tip. IR here did not feel comfortable removing catheter due to lack of Cardiothoracic back up and pt was transferred to [facility] where she was admitted for 16 days. At [place] pt had TTE showed severely dilated left atrium and left ventricle with EF 59% with catheter and adherent mass with mobile components. HD catheter removed by IR and replacement placed on 08/04. Catheter tip culture positive for Klebsiella pneumoniae and Pseudomonas colonization which was cephalosporin resistant. Pt was started on meropenem 500 mg IV which should be continued per ID for 6 weeks. Additionally pt had CT of abdomen done on 08/07 which showed right atrial filling defect similar to TTE, concerning for intramural thrombosis vs right atrial mass. Pt was then started on heparin drip. JAMESON performed on 08/09 showed right atrial echogenic mass with mobile attachments, concerning for thrombosis vs myxoma vs vegetation. Had Hardik catheter placed by IR on 08/10/2024. Plan is for pt to follow up with Cardiology at [facility] at time of discharge from [facility] to repeat TTE and consider outpatient cardiac MRI. Additionally, pt had CT of abdomen on 08/07 which showed distended gallbladder and distal CBD dilation of 1.1 cm as well as possible filling deficit in the distal CBD indicating possible choledocholithiasis. GI recommended MRCP, however pt refused and apparently wanted it completed at [facility] when she was transferred. As for ESRD on HD, pt was receiving HD T//Thu, and was transfused a total of 3 units PRBC. Pt is now being transferred back to [facility] for continued care and likely STR placement. Pt seen and evaluated in her room where she is resting comfortably in her bed. Pt is slightly irritated that she is not getting her nightly meds, especially analgesics. Pt also complains of renal diet and would like to be placed back on a normal diet. Complains of all-over diffuse pain, specifically in lower extremities. No nausea or vomiting. Mild central abdominal pain with episodes of diarrhea earlier today. Denies RUQ tenderness. No chest pain/pressure, palpitations. Denies shortness or breath or difficulty breathing. Review of Systems Review of Systems: Negative except for that which is stated in the [facility] Medical History Bacteremia due to Klebsiella pneumoniae Calciphylaxis with nonhealing ulcer of leg Hemodialysis patient Eschar of lower leg Chronic liver disease End stage renal disease on dialysis Secondary hyperparathyroidism (of renal origin) Accelerated essential hypertension Tobacco abuse Opioid use disorder Lupus (systemic lupus erythematosus) Leukocytosis Bacteremia Left tibial fracture Acute renal failure superimposed on chronic kidney disease Cocaine abuse CKD (chronic kidney disease) Antiphospholipid antibody syndrome MDD (major depressive disorder), recurrent episode, moderate Opioid use disorder, severe, dependence Cocaine use disorder Cellulitis Substance abuse Seizures Candidemia Opioid use disorder, severe, dependence PTSD (post-traumatic stress disorder) Bipolar disorder Opiate abuse, continuous Pulmonary emboli DVT (deep venous thrombosis) [place] filter in place Pneumonia Lupus Surgical History History of appendectomy Hx of splenectomy Social History Household Members: None Housing: Apartment Housing Other:: lIVING IN A Program House Do you presently have visiting nurse or other home services: Yes (can inspector's and vna's.) Alcohol intake: never Patient Tobacco Use Status: Former Tobacco user Tobacco use type: Cigarette Cigarettes Per Day: 2 Years Smoked: 24 Smoked in Last 30 Days: No e-Cigarette/Vaping Use: Never Used Patient Interested in Nicotine Replacement: No Patient Given Instructions on How to Stop Smoking: No Second Hand Smoke Exposure: No Use of substances other than those prescribed or required for medical reasons: No Substance Use Type: Crack/Cocaine Have you been hit, kicked, punched, or otherwise hurt by someone within the past year? If so, by whom?: No Do you feel safe in your current relationship?: No Current Relationship Is there a partner from a previous relationship who is making you feel unsafe now?: No Are you made to feel afraid or neglected: No Advance Directives: Yes Advance Directives on File: Yes Advance Directives Date on File: 02/14/21 Do you have a plan to hurt others: No Plan Recently lost weight without trying: No How much weight loss: Not applicable Eating poorly because of decreased appetite: No Nutrition screen score: 0 Nutrition Risks: No Nutritional Risk Patient : No : No Poor oral hygiene: No service: No Current occupational status: employed and student Sexual orientation: Did not discuss Cognitive needs: No Hearing needs: No Vision needs: No Meds Allergies Allergy/AdvReac Type Severity Reaction Status Date / Time No Known Allergies Allergy Verified 07/27/24 13:47 Active Medications: Current Medications Acetaminophen (Acetaminophen 325 Mg Tablet) 650 mg PO Q6H PRN PRN Reason: Pain, Mild 1-3,fever,headache Magnesium Hydroxide (Milk Of Magnesia 30 Ml Oral.Susp) 30 ml PO DAILY PRN PRN Reason: Constipation Melatonin (Melatonin 3 Mg Tablet) 6 mg PO BEDTIME PRN PRN Reason: Insomnia Sodium Chloride (0.9 % Sodium Chloride Flush 3 Ml Syringe) 3 ml [facility] Last Admin: 08/18/24 19:28 Dose: Not Given Home Medications ?Medication ?Instructions ?Recorded ?Confirmed ?Last Taken ?Type methadone 10 mg/mL oral concentrate 100 mg PO DAILY 05/30/24 08/18/24 08/18/24 09:00 History doxepin 10 mg capsule 10 mg PO BEDTIME 07/27/24 08/18/24 07/27/24 History meloxicam 15 mg tablet 15 mg PO DAILY 07/27/24 08/18/24 07/27/24 History warfarin 2.5 mg tablet 2.5 mg PO DAILY@1800 07/27/24 08/18/24 07/27/24 History acetaminophen 325 mg tablet 325 mg PO Q6H PRN Headache/Pain 08/18/24 08/18/24 Unknown History Mild Scale (1-3) darbepoetin aldo in polysorbat 60 60 mcg subcut QWEEK 08/18/24 08/18/24 Unknown History mcg/0.3 mL in polysorbate injection syringe meropenem 500 mg intravenous 500 mg IV TUTHSA 08/18/24 08/18/24 Unknown History solution methadone 10 mg/mL oral 95 mg PO BEDTIME 08/18/24 08/18/24 08/17/24 21:00 History concentrate (Methadone Intensol) sodium thiosulfate 12.5 gram/50 mL 25 g IV TUTHSA 08/18/24 08/18/24 08/18/24 11:45 History (250 mg/mL) intravenous solution Physical Exam Vital Signs and Narrative: Vital Signs: Last Vital Signs Temp 98.3 F 08/18/24 18:30 Pulse 77 08/18/24 18:30 Resp 18 08/18/24 18:30 BP 147/97 H 08/18/24 18:30 Pulse Ox 94 08/18/24 18:30 O2 Del Method Nasal Cannula 08/18/24 18:30 O2 Flow Rate 2 08/18/24 18:30 General: AOx3, no acute distress Resp: CTA bilaterally CVS: S1, S2, RRR GI: +BS, mild periumbilical tenderness. No RUQ tenderness. Negative Milton's sig n Skin: Warm, dry Neuro: Cranial nerves II-XII grossly intact bilaterally. Motor grossly intact bilaterally Extremities: Left hand edema. Lower extremities wrapped in clean banadages. Psych: Appropriate affect Assessment and Plan (1) Calciphylaxis: Status: Acute Plan Pt is a 43-year-old female with a PMH significant for ESRD on HD, lupus, antiphospholipid syndrome with hx of DVTs on warfarin, anemia of chronic disease, hx of MRSA bacteremia, opioid use disorder on methadone, cocaine use disorder, HTN, GERD, and migraines who initially presented to [facility] on 07/27/2024 with worsening lower leg wounds suspected secondary to calciphylaxis as pt was on warfarin and ESRD on HD. Pt was transferred to [place] due to concern for right atrial mass associated dialysis catheter tip, and pt is now being transferred back to [facility] for continued treatment and STR placement. Acute C diff infection Pt complaining of diarrhea and central abdominal pain since today Stool studies positive for C diff Will start on vancomycin 125 mg p.o. q.6 ID consult Right atrial mass TTE at [place] showed severely dilated left atrium and left ventricle, LVEF 59%, adherent mass with mobile components of left atrium Culture positive for Klebsiella pneumoniae and Pseudomonas colonization that was cephalosporin resistant Pt is started on meropenem 500 mg IV, continue for total of 6 weeks Follow up outpatient with Cardiology at [facility] [place] discharge for repeat TTE and possible outpatient cardiac MRI Dilated CBD CT of abdomen and pelvis on 08/07 [place] found distended gallbladder and distal CBD dilation of 1.1 cm and possible filling deficit and distal CBD concerning for choledocholithiasis GI recommendation was for MRCP at [place], however pt refused Pt currently asymptomatic without RUQ abdominal pain, no nausea or vomiting; has been eating and drinking without issue Currently no indication for MRCP Consider GI consult and repeat imaging if pt develops symptoms Bilateral lower extremity wounds Concerning for calciphylaxis Continue sodium thiosulfate 25 g IV 3 times weekly during dialysis Wound care consult Analgesics for pain management Pt has so far declined debridement Consider General surgery consult if pt agrees to debridement ESRD On HD / Nephrology consult Last dialyzed on 08/18/2024 Follow up BMP Anemia of chronic disease S/p 3 units PRBCs at [place] Start Retacrit 8000 units x3 weekly post dialysis Follow CBC, transfuse as necessary HTN Continue amlodipine and clonidine Antiphospholipid syndrome Continue warfarin Daily INR with target range 2-3 GERD Continue PPI Polysubstance use disorder Continue methadone 100 mg daily and 95 mg at bedtime Mood disorder Continue hydroxyzine, trazodone, topiramate, and bupropion Full Code Attending:?Dr. Salmon DVT Prophylaxis: On Warfarin Pt will require a hospitalization of at least two nights for treatment of?acute C diff infection as well as continuing treatment for bacteremia and calciphylaxis. Pt will require hospital level care for administration of IV antibiotics, close monitoring of labs including CBC and electrolytes while awaiting placement to STR. Quality Stroke Does the patient have a stroke diagnosis?: No VTE Prior VTE?: No VTE Risk Level:: Medical - moderate - high VTE Device Contraindication: Treatment Not Indicated VTE Drug Contraindication: N/A - Med Ordered
[2024-08-18] MEDS: Loperamide HCl 2 MG CAPSULE PO (20:08)
[2024-08-18] MEDS: 0.9 % Sodium Chloride Flush 3 ML SYRINGE IVFLUSH (20:08)
[2024-08-18 20:56] VITALS: BMI 27.4
--- NOTE | 2024-08-18 21:25 | PHA.MEDREC ---
Pharmacy Consult ? Medication Reconciliation Pharmacy has completed the medication reconciliation. Pt was transferred from here to [facility] on the and returned here today. Utilized medication list from [facility] to confirm meds.
[2024-08-18] MEDS: Flu Vacc TS2024-25(6mos up)/PF 0.5 ML SYRINGE IM (21:53)
--- NOTE | 2024-08-18 22:06 | HE.PHANOTE ---
Addendum entered by Yakov Camejo 08/18/24 22:38: Correction, they were giving her 100mg in the morning and 95mg at bedtime. Will continue with bedtime dose pete Original Note: RE Methadone Pt received 100mg of methadone daily at [facility] per discharge packet. Last given 08/18/2024
[2024-08-18] MEDS: cloNIDine HCL 0.2 MG TABLET PO (22:22)
[2024-08-18] MEDS: traZODone HCL 100 MG TABLET PO (22:22)
[2024-08-18] MEDS: hydrOXYzine HCL 50 MG TABLET PO (22:22)
[2024-08-18] MEDS: QUEtiapine Fumarate 50 MG TABLET PO (22:22)
[2024-08-18] MEDS: Gabapentin 600 MG TABLET PO (22:22)
[2024-08-18] MEDS: Topiramate 100 MG TABLET PO (22:23)
[2024-08-18] MEDS: Doxepin HCl 10 MG CAPSULE PO (22:23)
[2024-08-18 22:29] LABS: CDiff Gene PCR POSITIVE (Negative)
[2024-08-18] MEDS: Meropenem 500 MG VIAL IV (22:32)
[2024-08-18] MEDS: oxyCODONE HCl Immed Release 5 MG TABLET PO (22:36)
[2024-08-18] MEDS: methADONE HCl 20 MG/2 ML ORAL.CONC 95 MG PO (22:44)
[2024-08-18] MEDS: vancomycin HCL 125 MG CAPSULE PO (22:50)
[2024-08-18 23:20] LABS: CDiff Toxin Positive (Negative)
[2024-08-18 23:21] LABS: CDIFF Internal ctrl Dots and bkg OK (V)
--- NOTE | 2024-08-19 00:51 | PC.NURSE ---
Pt direct admit from [facility] with multiple wounds to bilateral hips and lower legs with dressings. Pt refused for this RN to take down dressings and take pictures to document on. She was upset about her meds not being ordered immediately and very anxious and wanted to sleep. She agreed to letting someone do it in the morning after she got her meds and slept all night. I explained that the wound nurse would be in to address wounds in the morning.
[2024-08-19] MEDS: vancomycin HCL 125 MG CAPSULE PO ×4 (05:39→21:19)
[2024-08-19] MEDS: Omeprazole 20 MG CAPSULE.DR PO (05:39)
[2024-08-19 05:40] VITALS: BP 165/99; PULSE 92; RESP 18; TEMP 37.9; O2SAT 93
[2024-08-19] MEDS: Acetaminophen 325 MG TABLET 650 MG PO (05:43)
[2024-08-19 06:54] VITALS: BP 159/90; PULSE 91; RESP 18; TEMP 37; O2SAT 93
[2024-08-19] MEDS: methADONE HCl 20 MG/2 ML ORAL.CONC 100 MG PO (08:21)
[2024-08-19] MEDS: buPROPion HCl XL 300 MG TAB.ER.24H PO (08:22)
[2024-08-19] MEDS: Multivitamin TABLET 1 TAB PO (08:23)
[2024-08-19] MEDS: amLODIPine Besylate 10 MG TABLET PO (08:23)
[2024-08-19] MEDS: Cyanocobalamin (Vitamin B-12) 100 MCG TABLET PO (08:23)
[2024-08-19] MEDS: Topiramate 100 MG TABLET PO ×2 (08:23→21:19)
[2024-08-19] MEDS: Gabapentin 600 MG TABLET PO ×2 (08:23→21:19)
[2024-08-19] MEDS: oxyCODONE HCl Immed Release 5 MG TABLET PO ×2 (08:23→13:50)
[2024-08-19] MEDS: 0.9 % Sodium Chloride Flush 3 ML SYRINGE IVFLUSH ×3 (08:28→21:20)
--- NOTE | 2024-08-19 09:33 | MHC.CM.PN ---
Addendum entered by Theresa Machado RN 08/19/24 15:34: Per ID note, IV abx to be changed, ? still to be administered w/ HD, awaiting response from MD. Addendum entered by Theresa Machado RN 08/19/24 12:57: IV abx will be administered w/ HD. PT recommending STR. CM reviewed recommendation w/ patient who is refusing STR at this time. Prefers home w/ new VNA (no preference) and resumption of TELEVISION [employer]OR. MD aware nephro will need to coordinate ABX w/ HD center. Will likely need BLS transport. Original Note: [facility] delivered. Patient lives at home alone. Ambulates w/ rollator. Has TELEVISION ACTOR 3-5x/wk (she is unsure of schedule or exact number of hours). HD //Sa @ [facility]. She is unsure of chair time. [facility] coordinates transportation. Methadone @ [facility]. Reports she has split dosing and gets take home bottles 1x/wk. PCP Jose Rashid [facility]DEL[facility] HCP on file and verified. DP: Needs 6 wks IV abx @ [facility]. Referrals sent via [facility]. Barriers are: methaone, HD, C diff. CM will continue to follow.
[2024-08-19 10:08] LABS: Adenovirus F 40/41 Not Detected (Not Detect.); Astrovirus Not Detected (Not Detect.); Campylobacter Not Detected (Not Detect.); Cryptosporidium Not Detected (Not Detect.); Cyclospora cayetanensis Not Detected (Not Detect.); E. coli EAEC Not Detected (Not Detect.); E. coli EPEC Not Detected (Not Detect.); E. coli ETEC Not Detected (Not Detect.); E. coli STEC Not Detected (Not Detect.); Entamoeba histolytica Not Detected (Not Detect.); Giardia lamblia Not Detected (Not Detect.); Norovirus GI/GII Not Detected (Not Detect.); Plesiomonas shigelloides Not Detected (Not Detect.); Rotavirus A Not Detected (Not Detect.); Salmonella Not Detected (Not Detect.); Sapovirus Not Detected (Not Detect.); Vibrio Not Detected (Not Detect.); Vibrio Cholerae Not Detected (Not Detect.); Yersinia enterocolitica Not Detected (Not Detect.)
[2024-08-19 10:36] LABS: Shigella sp./EIEC Not Detected (Not Detect.)
[2024-08-19] MEDS: hydrOXYzine HCL 50 MG TABLET PO (10:58)
--- NOTE | 2024-08-19 10:59 | HO.PM.IMPN ---
Subjective Subjective Date of Service: 08/19/24 Interval History: Seen and evaluated this morning reporting feeling ok no more diarrhea overnight pain under fair control no other events Review of Systems Review of Systems: Yes all other systems are reviewed and are negative Physical Exam Vital Signs: Vital Signs: Last Vital Signs Temp 98.6 F 08/19/24 06:54 Pulse 91 08/19/24 06:54 Resp 18 08/19/24 06:54 BP 159/90 H 08/19/24 06:54 Pulse Ox 93 08/19/24 06:54 O2 Del Method Nasal Cannula 08/19/24 06:54 O2 Flow Rate 2 08/19/24 06:54 BMI result Body Mass Index 27.4 Const: Other: Constitutional : Awake, interactive, frail looking, not in distress Neck : Normal inspection, Supple Cardiovascular : RRR, no JVP, no lower extremity edema Respiratory : good bilateral air entry, no crackles, wheezes or rhonchi, on O2 supplement Gastrointestinal: soft, lax, Normal bowel sounds, Non tender Skin : Warm, Dry, bilateral lower extremities eschar Neurological : Alert & oriented x3, No focal deficit Objective Data Active Medications Acetaminophen (Acetaminophen 325 Mg Tablet) 650 mg PO Q6H PRN PRN Reason: Pain, Mild 1-3,fever,headache Last Admin: 08/19/24 05:43 Dose: 650 mg Documented By: ELI Albuterol Sulfate (Albuterol Sulfate 90 Mcg 8 Gm Inhaler) 2 puff INHALE RQ4H PRN PRN Reason: Wheezing Amlodipine Besylate (Amlodipine Besylate 10 Mg Tablet) 10 mg PO DAILY [facility]; Protocol Last Admin: 08/19/24 08:23 Dose: 10 mg Documented By: SKY Bupropion HCl (Bupropion Hcl Xl 300 Mg Tab.Er.24h) 300 mg PO DAILY [facility] Last Admin: 08/19/24 08:22 Dose: 300 mg Documented By: SKY Clonidine HCl (Clonidine Hcl 0.2 Mg Tablet) 0.2 mg PO BEDTIME [facility]; Protocol Last Admin: 08/18/24 22:22 Dose: 0.2 mg Documented By: ELI Cyanocobalamin (Cyanocobalamin (Vitamin B-12) 100 Mcg Tablet) 100 mcg PO DAILY [facility] Last Admin: 08/19/24 08:23 Dose: 100 mcg Documented By: SKY Doxepin HCl (Doxepin Hcl 10 Mg Capsule) 10 mg PO BEDTIME [facility] Last Admin: 08/18/24 22:23 Dose: 10 mg Documented By: ELI Epoetin Devin-epbx (Epoetin Devin-Epbx 10,000 Unit/Ml Vial) 8,000 unit IVPUSH TuThSa@1800 [facility] Gabapentin (Gabapentin 600 Mg Tablet) 600 mg PO BID [facility] Last Admin: 08/19/24 08:23 Dose: 600 mg Documented By: SKY Hydroxyzine HCl (Hydroxyzine Hcl 50 Mg Tablet) 50 mg PO TID PRN PRN Reason: Anxiety Last Admin: 08/18/24 22:22 Dose: 50 mg Documented By: ELI Sodium Thiosulfate 12.5 gm/ (Sodium Chloride) 200 mls @ 400 mls/hr IV Q30M [facility] Stop: 08/20/24 18:59 Sodium Thiosulfate 12.5 gm/ (Sodium Chloride) 200 mls @ 400 mls/hr IV Q30M [facility] Stop: 08/18/24 23:14 Magnesium Hydroxide (Milk Of Magnesia 30 Ml Oral.Susp) 30 ml PO DAILY PRN PRN Reason: Constipation Melatonin (Melatonin 3 Mg Tablet) 6 mg PO BEDTIME PRN PRN Reason: Insomnia Meropenem (Meropenem 500 Mg Vial) 500 mg IV TUTHSA [facility] Last Admin: 08/18/24 22:32 Dose: 500 mg Documented By: ELI Methadone HCl (Methadone Hcl 20 Mg/2 Ml Oral.Conc) 100 mg PO DAILY [facility] Last Admin: 08/19/24 08:21 Dose: 100 mg Documented By: SKY Co-signed By: RONN Methadone HCl (Methadone Hcl 20 Mg/2 Ml Oral.Conc) 95 mg PO BEDTIME [facility] Last Admin: 08/18/24 22:44 Dose: 95 mg Documented By: ELI Co-signed By: ANTONIETA Multivitamins/Vitamin C (Multivitamin Tablet) 1 tab PO DAILY [facility] Last Admin: 08/19/24 08:23 Dose: 1 tab Documented By: SKY Non-Formulary Medication (Lumateperone [Caplyta]) 42 mg PO DAILY [facility] Nystatin (Nystatin Oral Susp 500,000 Unit/5 Ml Oral.Susp) 100,000 unit PO DAILY PRN; Protocol PRN Reason: FLARES Omeprazole (Omeprazole 20 Mg Capsule.Dr) 20 mg PO DAILY@0630 [facility] Last Admin: 08/19/24 05:39 Dose: 20 mg Documented By: ELI Oxycodone HCl (Oxycodone Hcl Immed Release 5 Mg Tablet) 5 mg PO Q4H PRN PRN Reason: Pain, Moderate(Pain Scale 4-6) Polyethylene Glycol (Polyethylene Glycol 3350 17 Gm Powd.Pack) 17 gm PO DAILY PRN PRN Reason: Constipation Quetiapine Fumarate (Quetiapine Fumarate 50 Mg Tablet) 50 mg PO TID PRN PRN Reason: Anxiety Last Admin: 08/18/24 22:22 Dose: 50 mg Documented By: ELI Sodium Chloride (0.9 % Sodium Chloride Flush 3 Ml Syringe) 3 ml IVFLUSH QSHIFT [facility] Last Admin: 08/19/24 08:28 Dose: 3 ml Documented By: SKY Topiramate (Topiramate 100 Mg Tablet) 100 mg PO BID [facility] Last Admin: 08/19/24 08:23 Dose: 100 mg Documented By: SKY Trazodone HCl (Trazodone Hcl 100 Mg Tablet) 100 mg PO BEDTIME PRN PRN Reason: Insomnia Last Admin: 08/18/24 22:22 Dose: 100 mg Documented By: ELI Vancomycin HCl (Vancomycin Hcl 125 Mg Capsule) 125 mg PO Q6H [facility] Last Admin: 08/19/24 10:51 Dose: 125 mg Documented By: SKY Warfarin Sodium (Warfarin Sodium 2.5 Mg Tablet) 2.5 mg PO DAILY@1800 [facility] Labs Labs: Laboratory Results - last 24 hr 08/18/24 20:56 Stl C. cayetanensis PCR Not Detected Stool Rotavirus A PCR Not Detected Stl Adenov F 40/41 PCR Not Detected Stool Astrovirus (PCR) Not Detected Stool Campylobacter PCR Not Detected Stool Cryptosporidium PCR Not Detected Stl Sh Tox Pr E STEC PCR Not Detected Stool E coli O157 PCR Not applicable Stl Enterotoxigenic E PCR Not Detected Stool EPEC (PCR) Not Detected Stool EAEC (PCR) Not Detected Stl E. histolytica PCR Not Detected Stool Giardia Lamblia PCR Not Detected Stl P. shigelloides PCR Not Detected Stool Salmonella PCR Not Detected Stool Sapovirus (PCR) Not Detected Stl Shigella/EIEC PCR Not Detected St Y.enterocolitica PCR Not Detected Stool Vibrio (PCR) Not Detected Stl Vibrio cholerae PCR Not Detected Stl Norovirus GI/GII PCR Not Detected C. difficile Tox B Gene POSITIVE A* C. difficile Toxin A&B Positive A* C. 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: Status: Acute (3) Renal failure: Status: Acute (4) Wounds, multiple open, lower extremity: Status: Acute (5) Clostridium difficile infection: Status: Acute Plan Pt is a 43-year-old female with a PMH significant for ESRD on HD, lupus, antiphospholipid syndrome with hx of DVTs on warfarin, anemia of chronic disease, hx of MRSA bacteremia, opioid use disorder on methadone, cocaine use disorder, HTN, GERD, and migraines who initially presented to [facility] on 07/27/2024 with worsening lower leg wounds suspected secondary to calciphylaxis as pt was on warfarin and ESRD on HD. Pt was transferred to [place] due to concern for right atrial mass associated dialysis catheter tip, and pt is now being transferred back to [facility] for continued treatment and STR placement. Acute C diff infection Stool studies positive for C diff on 08/18 no diarrhea overnight vancomycin 125 mg p.o. q.6 ID consult Right atrial mass TTE at [place] showed severely dilated left atrium and left ventricle, LVEF 59%, adherent mass with mobile components of left atrium Culture positive for Klebsiella pneumoniae and Pseudomonas colonization that was cephalosporin resistant Pt is started on meropenem 500 mg IV, continue for total of 6 weeks Follow up outpatient with Cardiology at [facility] after discharge for repeat TTE and possible outpatient cardiac MRI Dilated CBD CT of abdomen and pelvis on 08/07 [place] found distended gallbladder and distal CBD dilation of 1.1 cm and possible filling deficit and distal CBD concerning for choledocholithiasis GI recommendation was for MRCP at [place], however pt refused Pt currently asymptomatic without RUQ abdominal pain, no nausea or vomiting; has been eating and drinking without issue Currently no indication for MRCP, Consider GI consult and repeat imaging if pt develops symptoms Bilateral lower extremity wounds Concerning for calciphylaxis Continue sodium thiosulfate 25 g IV 3 times weekly during dialysis Wound care consult Analgesics for pain management Pt has so far declined debridement Consider General surgery consult if pt agrees to debridement ESRD On HD T//Thu Nephrology consult Last dialyzed on 08/18/2024 Follow up BMP Anemia of chronic disease S/p 3 units PRBCs at [place] Start Retacrit 8000 units x3 weekly post dialysis Follow CBC, transfuse as necessary HTN Continue amlodipine and clonidine Antiphospholipid syndrome Continue warfarin Daily INR with target range 2-3 GERD Continue PPI Polysubstance use disorder Continue methadone 100 mg daily and 95 mg at bedtime Mood disorder Continue hydroxyzine, trazodone, topiramate, and bupropion Full Code Attending:?Dr. Salmon DVT Prophylaxis: On Warfarin Pt will require a hospitalization overnight for treatment of?acute C diff infection as well as continuing treatment for bacteremia and calciphylaxis. Pt will require hospital level care for administration of IV antibiotics, close monitoring of labs including CBC and electrolytes while awaiting placement Quality Stroke Does the patient have a stroke diagnosis?: No VTE Prior VTE?: No VTE Risk Level:: Medical - moderate - high VTE Device Contraindication: Treatment Not Indicated VTE Drug Contraindication: N/A - Med Ordered
[2024-08-19 12:12] VITALS: BP 159/90; PULSE 91; O2SAT 93
--- NOTE | 2024-08-19 13:22 | P.CONNP_ITS ---
History of Present Illness Reason for Consult Consult date: 08/19/24 Chief Complaint Chief complaint: Calciphylaxis, Bactermina History of Present Illness Narrative: 43-year-old female with ESRD on HD, lupus, antiphospholipid syndrome with hx of DVTs on warfarin, anemia of chronic disease, hx of MRSA bacteremia, opioid use disorder on methadone, cocaine use disorder, HTN, GERD, and migraines who initially presented to [facility] on 07/27/2024 with worsening lower leg wounds suspected secondary to calciphylaxis as pt was on warfarin and ESRD on HD. Treated with sodium thiosulfate. Patient's stay was complicated by sepsis and Klebsiella pneumoniae bacteremia. Plan was for debridement of wounds, but pt continually refused and biopsies were never obtained. Had echocardiogram that revealed mobile mass on right atrium suspected to be associated with dialysis catheter tip. IR here did not feel comfortable removing catheter due to lack of Cardiothoracic back up and pt was transferred to [facility] where she was admitted for 16 days. pt had TTE showed severely dilated left atrium and left ventricle with EF 59% with catheter and adherent mass with mobile components. HD catheter removed by IR and replacement placed on 08/04. Catheter tip culture positive for Klebsiella pneumoniae and Pseudomonas colonization which was cephalosporin resistant. Pt was started on meropenem 500 mg IV which should be continued per ID for 6 weeks. Additionally pt had CT of abdomen done on 08/07 which showed right atrial filling defect similar to TTE, concerning for intramural thrombosis vs right atrial mass. Pt was then started on heparin drip. JAMESON performed on 08/09 showed right atrial echogenic mass with mobile attachments, concerning for thrombosis vs myxoma vs vegetation. Had Hardik catheter placed by IR on 08/10/2024. Plan is for pt to follow up with Cardiology at [facility] at time of discharge from [facility] to repeat TTE and consider outpatient cardiac MRI. Additionally, pt had CT of abdomen on 08/07 which showed distended gallbladder and distal CBD dilation of 1.1 cm as well as possible filling deficit in the distal CBD indicating possible choledocholithiasis. GI recommended MRCP, however pt refused and apparently wanted it completed at [facility] when she was transferred. As for ESRD on HD, pt was receiving HD T//Thu, and was transfused a total of 3 units PRBC. Pt is now being transferred back to [facility] for continued care and likely STR placement.Nephrology has been consulted to assist in her clinical care during her current hospital stay Review of Systems Review of Systems Yes all other systems are reviewed and are negative PMFSH Past Medical History Medical History Bacteremia due to Klebsiella pneumoniae Calciphylaxis with nonhealing ulcer of leg Hemodialysis patient Eschar of lower leg Chronic liver disease End stage renal disease on dialysis Secondary hyperparathyroidism (of renal origin) Accelerated essential hypertension Tobacco abuse Opioid use disorder Lupus (systemic lupus erythematosus) Leukocytosis Bacteremia Left tibial fracture Acute renal failure superimposed on chronic kidney disease Cocaine abuse CKD (chronic kidney disease) Antiphospholipid antibody syndrome MDD (major depressive disorder), recurrent episode, moderate Opioid use disorder, severe, dependence Cocaine use disorder Cellulitis Substance abuse Seizures Candidemia Opioid use disorder, severe, dependence PTSD (post-traumatic stress disorder) Bipolar disorder Opiate abuse, continuous Pulmonary emboli DVT (deep venous thrombosis) [place] filter in place Pneumonia Lupus Surgical History Surgical History History of appendectomy Hx of splenectomy Social History Social History Household Members: None Housing: Apartment Housing Other:: lIVING IN A Program House Do you presently have visiting nurse or other home services: Yes (machine 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 and vna's.) Alcohol intake: never Patient Tobacco Use Status: Former Tobacco user Tobacco use type: Cigarette Cigarettes Per Day: 2 Years Smoked: 24 Smoked in Last 30 Days: No e-Cigarette/Vaping Use: Never Used Patient Interested in Nicotine Replacement: No Patient Given Instructions on How to Stop Smoking: No Second Hand Smoke Exposure: No Use of substances other than those prescribed or required for medical reasons: No Substance Use Type: Crack/Cocaine Currently Displaying Signs/Symptoms of Drug Intoxication Withdrawal: No Have you been hit, kicked, punched, or otherwise hurt by someone within the past year? If so, by whom?: No Do you feel safe in your current relationship?: No Current Relationship Is there a partner from a previous relationship who is making you feel unsafe now?: No Are you made to feel afraid or neglected: No Advance Directives: Yes Advance Directives on File: Yes Advance Directives Date on File: 02/14/21 Do you have a plan to hurt others: No Plan Recently lost weight without trying: No How much weight loss: Not applicable Eating poorly because of decreased appetite: No Nutrition screen score: 0 Nutrition Risks: No Nutritional Risk Patient : No : No Poor oral hygiene: No service: No Current occupational status: employed and student Sexual orientation: Did not discuss Cognitive needs: No Hearing needs: No Vision needs: No Meds Allergies Allergy/AdvReac Type Severity Reaction Status Date / Time No Known Allergies Allergy Verified 07/27/24 13:47 Active Medications: Current Medications Acetaminophen (Acetaminophen 325 Mg Tablet) 650 mg PO Q6H PRN PRN Reason: Pain, Mild 1-3,fever,headache Last Admin: 08/19/24 05:43 Dose: 650 mg Albuterol Sulfate (Albuterol Sulfate 90 Mcg 8 Gm Inhaler) 2 puff INHALE RQ4H PRN PRN Reason: Wheezing Amlodipine Besylate (Amlodipine Besylate 10 Mg Tablet) 10 mg PO DAILY [facility]; Protocol Last Admin: 08/19/24 08:23 Dose: 10 mg Bupropion HCl (Bupropion Hcl Xl 300 Mg Tab.Er.24h) 300 mg PO DAILY [facility] Last Admin: 08/19/24 08:22 Dose: 300 mg Clonidine HCl (Clonidine Hcl 0.2 Mg Tablet) 0.2 mg PO BEDTIME [facility]; Protocol Last Admin: 08/18/24 22:22 Dose: 0.2 mg Cyanocobalamin (Cyanocobalamin (Vitamin B-12) 100 Mcg Tablet) 100 mcg PO DAILY [facility] Last Admin: 08/19/24 08:23 Dose: 100 mcg Doxepin HCl (Doxepin Hcl 10 Mg Capsule) 10 mg PO BEDTIME [facility] Last Admin: 08/18/24 22:23 Dose: 10 mg Epoetin Aldo-epbx (Epoetin Aldo-Epbx 10,000 Unit/Ml Vial) 8,000 unit IVPUSH TuThSa@1800 [facility] Gabapentin (Gabapentin 600 Mg Tablet) 600 mg PO BID [facility] Last Admin: 08/19/24 08:23 Dose: 600 mg Heparin Sodium (Porcine) (Heparin Sodium,Porcine 5,000 Unit/Ml Vial) 5,000 unit INTRACATH TUTHSA@1645 [facility] Hydroxyzine HCl (Hydroxyzine Hcl 50 Mg Tablet) 50 mg PO TID PRN PRN Reason: Anxiety Last Admin: 08/19/24 10:58 Dose: 50 mg Sodium Thiosulfate 12.5 gm/ (Sodium Chloride) 200 mls @ 400 mls/hr IV Q30M [facility] Stop: 08/20/24 18:59 Sodium Thiosulfate 12.5 gm/ (Sodium Chloride) 200 mls @ 400 mls/hr IV Q30M [facility] Stop: 08/18/24 23:14 Magnesium Hydroxide (Milk Of Magnesia 30 Ml Oral.Susp) 30 ml PO DAILY PRN PRN Reason: Constipation Melatonin (Melatonin 3 Mg Tablet) 6 mg PO BEDTIME PRN PRN Reason: Insomnia Meropenem (Meropenem 500 Mg Vial) 500 mg IV TUTHSA [facility] Last Admin: 08/18/24 22:32 Dose: 500 mg Methadone HCl (Methadone Hcl 20 Mg/2 Ml Oral.Conc) 100 mg PO DAILY [facility] Last Admin: 08/19/24 08:21 Dose: 100 mg Methadone HCl (Methadone Hcl 20 Mg/2 Ml Oral.Conc) 95 mg PO BEDTIME [facility] Last Admin: 08/18/24 22:44 Dose: 95 mg Multivitamins/Vitamin C (Multivitamin Tablet) 1 tab PO DAILY [facility] Last Admin: 08/19/24 08:23 Dose: 1 tab Non-Formulary Medication (Lumateperone [Caplyta]) 42 mg PO DAILY [facility] Nystatin (Nystatin Oral Susp 500,000 Unit/5 Ml Oral.Susp) 100,000 unit PO DAILY [facility]N; Protocol PRN Reason: FLARES Omeprazole (Omeprazole 20 Mg Capsule.Dr) 20 mg PO DAILY@0630 [facility] Last Admin: 08/19/24 05:39 Dose: 20 mg Oxycodone HCl (Oxycodone Hcl Immed Release 5 Mg Tablet) 5 mg PO Q4H PRN PRN Reason: Pain, Moderate(Pain Scale 4-6) Polyethylene Glycol (Polyethylene Glycol 3350 17 Gm Powd.Pack) 17 gm PO DAILY PRN PRN Reason: Constipation Quetiapine Fumarate (Quetiapine Fumarate 50 Mg Tablet) 50 mg PO TID PRN PRN Reason: Anxiety Last Admin: 08/18/24 22:22 Dose: 50 mg Sodium Chloride (0.9 % Sodium Chloride Flush 3 Ml Syringe) 3 ml IVFLUSH QSHIFT [facility] Last Admin: 08/19/24 08:28 Dose: 3 ml Topiramate (Topiramate 100 Mg Tablet) 100 mg PO BID [facility] Last Admin: 08/19/24 08:23 Dose: 100 mg Trazodone HCl (Trazodone Hcl 100 Mg Tablet) 100 mg PO BEDTIME PRN PRN Reason: Insomnia Last Admin: 08/18/24 22:22 Dose: 100 mg Vancomycin HCl (Vancomycin Hcl 125 Mg Capsule) 125 mg PO Q6H [facility] Last Admin: 08/19/24 10:51 Dose: 125 mg Warfarin Sodium (Warfarin Sodium 2.5 Mg Tablet) 2.5 mg PO DAILY@1800 [facility] Home Medications ?Medication ?Instructions ?Recorded ?Confirmed ?Last Taken ?Type methadone 10 mg/mL oral concentrate 100 mg PO DAILY 05/30/24 08/18/24 08/18/24 09:00 History doxepin 10 mg capsule 10 mg PO BEDTIME 07/27/24 08/18/24 07/27/24 History meloxicam 15 mg tablet 15 mg PO DAILY 07/27/24 08/18/24 07/27/24 History warfarin 2.5 mg tablet 2.5 mg PO DAILY@1800 07/27/24 08/18/24 07/27/24 History acetaminophen 325 mg tablet 325 mg PO Q6H PRN Headache/Pain 08/18/24 08/18/24 Unknown History Mild Scale (1-3) darbepoetin aldo in polysorbat 60 60 mcg subcut QWEEK 08/18/24 08/18/24 Unknown History mcg/0.3 mL in polysorbate injection syringe meropenem 500 mg intravenous 500 mg IV [facility] 08/18/24 08/18/24 Unknown History solution methadone 10 mg/mL oral 95 mg PO BEDTIME 08/18/24 08/18/24 08/17/24 21:00 History concentrate (Methadone Intensol) sodium thiosulfate 12.5 gram/50 mL 25 g IV [facility] 08/18/24 08/18/24 08/18/24 11:45 History (250 mg/mL) intravenous solution Physical Exam Vital Signs: Last Vital Signs Temp 98.6 F 08/19/24 06:54 Pulse 91 08/19/24 12:12 Resp 18 08/19/24 06:54 BP 159/90 H 08/19/24 12:12 Pulse Ox 93 08/19/24 12:12 O2 Del Method Nasal Cannula 08/19/24 06:54 O2 Flow Rate 2 08/19/24 06:54 BMI result Body Mass Index 27.4 Const General: comfortable and no acute distress Orientation/consciousness: patient oriented x3 HEENT Head: Yes normocephalic Mouth: Normal oral and palatal mucosa present Eyes EOM: EOMs intact bilaterally Neck Neck: Yes supple Resp Auscultation: clear to auscultation bilaterally Cardio Jugular venous distension: no JVD Rate: regular rate GI Palpation (GI): Soft to palpation Auscultation: normal bowel sounds Neuro General: patient oriented x3 and moves all extremities Assessment and Plan (1) End stage renal disease on dialysis: Status: Acute Plan Usually gets HD on TTS ( ordered ) Has a functioning HD catheter Na thiosulphate TTS as ordered( 12.5 Gram) No Vitamin D , calcitriol or ca based binders Phos binders with meals Antibiotics as ordered. Needs cards F/U Shall follow along Procedures Date of Service Date of Service: 08/19/24
[2024-08-19 13:54] VITALS: BMI 27.4
--- NOTE | 2024-08-19 14:08 | MHC.CLN ---
NUTRITION DIET=REGULAR. ADDING ENSURE MAX BID TO PROMOTE WOUND HEALING. SUPPLEMENT PROVIDES 300 KCALS, 60 G PROTEIN. SKIN WITH OPEN AREAS TO BILATERAL HIPS AND LOWER LEGS. FROM ADMISSION 07/27/24, HAD STAGE III PI TO R ISCHIUM AND STAGE II PI TO L ISCHIUM. PATIENT WITH ESRD ON HEMODIALYSIS. FOLLOW FOR PO INTAKE AND SKIN INTEGRITY. SEE CLINICAL NUTRITION ASSESSMENT 08/19/24.
--- NOTE | 2024-08-19 14:34 | W.PM.IDCN ---
History of Present Illness Data of Consult Service Date: 08/19/24 Requesting physician: Aaron Serrano Primary Care Provider: KWABENA Valadez- HPI Reason for consult: endocarditis atrium She presents with weakness and has had large right atrial mass attached to catheter. Catheter shows Klebsiella pneumonia similar to blood culture. There is no cardiac surgery procedure being done. She has n complaints Review of Systems Review of Systems: Yes all other systems are reviewed and are negative PMFSH Past Medical History Medical History Bacteremia due to Klebsiella pneumoniae Calciphylaxis with nonhealing ulcer of leg Hemodialysis patient Eschar of lower leg Chronic liver disease End stage renal disease on dialysis Secondary hyperparathyroidism (of renal origin) Accelerated essential hypertension Tobacco abuse Opioid use disorder Lupus (systemic lupus erythematosus) Leukocytosis Bacteremia Left tibial fracture Acute renal failure superimposed on chronic kidney disease Cocaine abuse CKD (chronic kidney disease) Antiphospholipid antibody syndrome MDD (major depressive disorder), recurrent episode, moderate Opioid use disorder, severe, dependence Cocaine use disorder Cellulitis Substance abuse Seizures Candidemia Opioid use disorder, severe, dependence PTSD (post-traumatic stress disorder) Bipolar disorder Opiate abuse, continuous Pulmonary emboli DVT (deep venous thrombosis) [place] filter in place Pneumonia Lupus Family History Family history: reviewed and not pertinent Surgical History Surgical History History of appendectomy Hx of splenectomy Social History Social History Household Members: None Housing: Apartment Housing Other:: lIVING IN A Program House Do you presently have visiting nurse or other home services: Yes (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 instrumentation's and vna's.) Alcohol intake: never Patient Tobacco Use Status: Former Tobacco user Tobacco use type: Cigarette Cigarettes Per Day: 2 Years Smoked: 24 Smoked in Last 30 Days: No e-Cigarette/Vaping Use: Never Used Patient Interested in Nicotine Replacement: No Patient Given Instructions on How to Stop Smoking: No Second Hand Smoke Exposure: No Use of substances other than those prescribed or required for medical reasons: No Substance Use Type: Crack/Cocaine Currently Displaying Signs/Symptoms of Drug Intoxication Withdrawal: No Have you been hit, kicked, punched, or otherwise hurt by someone within the past year? If so, by whom?: No Do you feel safe in your current relationship?: No Current Relationship Is there a partner from a previous relationship who is making you feel unsafe now?: No Are you made to feel afraid or neglected: No Advance Directives: Yes Advance Directives on File: Yes Advance Directives Date on File: 02/14/21 Do you have a plan to hurt others: No Plan Recently lost weight without trying: No How much weight loss: Not applicable Eating poorly because of decreased appetite: No Nutrition screen score: 0 Nutrition Risks: No Nutritional Risk Patient : No : No Poor oral hygiene: No service: No Current occupational status: employed and student Sexual orientation: Did not discuss Cognitive needs: No Hearing needs: No Vision needs: No Meds Allergies Allergy/AdvReac Type Severity Reaction Status Date / Time No Known Allergies Allergy Verified 07/27/24 13:47 Active Medications: Current Medications Acetaminophen (Acetaminophen 325 Mg Tablet) 650 mg PO Q6H PRN PRN Reason: Pain, Mild 1-3,fever,headache Last Admin: 08/19/24 05:43 Dose: 650 mg Albuterol Sulfate (Albuterol Sulfate 90 Mcg 8 Gm Inhaler) 2 puff INHALE RQ4H PRN PRN Reason: Wheezing Amlodipine Besylate (Amlodipine Besylate 10 Mg Tablet) 10 mg PO DAILY [facility]; Protocol Last Admin: 08/19/24 08:23 Dose: 10 mg Bupropion HCl (Bupropion Hcl Xl 300 Mg Tab.Er.24h) 300 mg PO DAILY [facility] Last Admin: 08/19/24 08:22 Dose: 300 mg Clonidine HCl (Clonidine Hcl 0.2 Mg Tablet) 0.2 mg PO BEDTIME [facility]; Protocol Last Admin: 08/18/24 22:22 Dose: 0.2 mg Cyanocobalamin (Cyanocobalamin (Vitamin B-12) 100 Mcg Tablet) 100 mcg PO DAILY [facility] Last Admin: 08/19/24 08:23 Dose: 100 mcg Doxepin HCl (Doxepin Hcl 10 Mg Capsule) 10 mg PO BEDTIME [facility] Last Admin: 08/18/24 22:23 Dose: 10 mg Epoetin Aldo-epbx (Epoetin Aldo-Epbx 10,000 Unit/Ml Vial) 8,000 unit IVPUSH TuThSa@1800 [facility] Gabapentin (Gabapentin 600 Mg Tablet) 600 mg PO BID [facility] Last Admin: 08/19/24 08:23 Dose: 600 mg Heparin Sodium (Porcine) (Heparin Sodium,Porcine 5,000 Unit/Ml Vial) 5,000 unit INTRACATH TUTHSA@1645 [facility] Hydroxyzine HCl (Hydroxyzine Hcl 50 Mg Tablet) 50 mg PO TID PRN PRN Reason: Anxiety Last Admin: 08/19/24 10:58 Dose: 50 mg Sodium Thiosulfate 12.5 gm/ (Sodium Chloride) 200 mls @ 400 mls/hr IV Q30M [facility] Stop: 08/20/24 18:59 Sodium Thiosulfate 12.5 gm/ (Sodium Chloride) 200 mls @ 400 mls/hr IV Q30M [facility] Stop: 08/18/24 23:14 Magnesium Hydroxide (Milk Of Magnesia 30 Ml Oral.Susp) 30 ml PO DAILY PRN PRN Reason: Constipation Melatonin (Melatonin 3 Mg Tablet) 6 mg PO BEDTIME PRN PRN Reason: Insomnia Meropenem (Meropenem 500 Mg Vial) 500 mg IV TUTA [facility] Last Admin: 08/18/24 22:32 Dose: 500 mg Methadone HCl (Methadone Hcl 20 Mg/2 Ml Oral.Conc) 100 mg PO DAILY [facility] Last Admin: 08/19/24 08:21 Dose: 100 mg Methadone HCl (Methadone Hcl 20 Mg/2 Ml Oral.Conc) 95 mg PO BEDTIME [facility] Last Admin: 08/18/24 22:44 Dose: 95 mg Multivitamins/Vitamin C (Multivitamin Tablet) 1 tab PO DAILY [facility] Last Admin: 08/19/24 08:23 Dose: 1 tab Non-Formulary Medication (Lumateperone [Caplyta]) 42 mg PO DAILY [facility] Nystatin (Nystatin Oral Susp 500,000 Unit/5 Ml Oral.Susp) 100,000 unit PO DAILY PRN; Protocol PRN Reason: FLARES Omeprazole (Omeprazole 20 Mg Capsule.Dr) 20 mg PO DAILY@0630 [facility] Last Admin: 08/19/24 05:39 Dose: 20 mg Oxycodone HCl (Oxycodone Hcl Immed Release 5 Mg Tablet) 5 mg PO Q4H PRN PRN Reason: Pain, Moderate(Pain Scale 4-6) Last Admin: 08/19/24 13:50 Dose: 5 mg Polyethylene Glycol (Polyethylene Glycol 3350 17 Gm Powd.Pack) 17 gm PO DAILY PRN PRN Reason: Constipation Quetiapine Fumarate (Quetiapine Fumarate 50 Mg Tablet) 50 mg PO TID PRN PRN Reason: Anxiety Last Admin: 08/18/24 22:22 Dose: 50 mg Sodium Chloride (0.9 % Sodium Chloride Flush 3 Ml Syringe) 3 ml IVFLUSH QSHIFT [facility] Last Admin: 08/19/24 08:28 Dose: 3 ml Topiramate (Topiramate 100 Mg Tablet) 100 mg PO BID [facility] Last Admin: 08/19/24 08:23 Dose: 100 mg Trazodone HCl (Trazodone Hcl 100 Mg Tablet) 100 mg PO BEDTIME PRN PRN Reason: Insomnia Last Admin: 08/18/24 22:22 Dose: 100 mg Vancomycin HCl (Vancomycin Hcl 125 Mg Capsule) 125 mg PO Q6H [facility] Last Admin: 08/19/24 10:51 Dose: 125 mg Warfarin Sodium (Warfarin Sodium 2.5 Mg Tablet) 2.5 mg PO DAILY@1800 [facility] Home Medications ?Medication ?Instructions ?Recorded ?Confirmed ?Last Taken ?Type methadone 10 mg/mL oral concentrate 100 mg PO DAILY 05/30/24 08/18/24 08/18/24 09:00 History doxepin 10 mg capsule 10 mg PO BEDTIME 07/27/24 08/18/24 07/27/24 History meloxicam 15 mg tablet 15 mg PO DAILY 07/27/24 08/18/24 07/27/24 History warfarin 2.5 mg tablet 2.5 mg PO DAILY@1800 07/27/24 08/18/24 07/27/24 History acetaminophen 325 mg tablet 325 mg PO Q6H PRN Headache/Pain 08/18/24 08/18/24 Unknown History Mild Scale (1-3) darbepoetin aldo in polysorbat 60 60 mcg subcut QWEEK 08/18/24 08/18/24 Unknown History mcg/0.3 mL in polysorbate injection syringe meropenem 500 mg intravenous 500 mg IV [facility] 08/18/24 08/18/24 Unknown History solution methadone 10 mg/mL oral 95 mg PO BEDTIME 08/18/24 08/18/24 08/17/24 21:00 History concentrate (Methadone Intensol) sodium thiosulfate 12.5 gram/50 mL 25 g IV [facility] 08/18/24 08/18/24 08/18/24 11:45 History (250 mg/mL) intravenous solution Physical Exam Vital Signs: Vital Signs: Last Vital Signs Temp 98.6 F 08/19/24 06:54 Pulse 91 08/19/24 12:12 Resp 18 08/19/24 06:54 BP 159/90 H 08/19/24 12:12 Pulse Ox 93 08/19/24 12:12 O2 Del Method Nasal Cannula 08/19/24 06:54 O2 Flow Rate 2 08/19/24 06:54 BMI result Body Mass Index 27.4 Const: General: cooperative HEENT: Head: Yes normal to inspection Face and sinus: Yes normal facial exam Mouth: Normal oral and palatal mucosa present Teeth and gingiva: dentition normal Eyes: General: appearance normal, both eyes and all related structures Pupils: Equal, round and reactive pupils present Resp: Effort & Inspection: normal respiratory effort Cardio: Rate: regular rate Rhythm: regular rhythm GI: Palpation (GI): Soft to palpation and nontender : General: Yes no CVA tenderness Back/Spine/Pelvis: Back: no CVA tenderness Skin: General skin exam: no rashes or lesions noted Neuro: General: moves all extremities Cranial nerves: Yes Equal, round and reactive pupils present Extrem: General: Yes normal to inspection Psych: Appearance: grossly normal Assessment and Plan (1) Clostridium difficile infection: Status: Acute (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 Vancomycin 125 mg po qid now unti 2 days after antibiotics finished.
--- NOTE | 2024-08-19 15:27 | HO.WOUND ---
Wound Consult: Initial 43yr old female? [place] [facility] [place] - See progress notes and H&P for detailed history.? Wound consult placed for Bilateral Legs and Posterior hip flank sites.? Patient agreeable to assessment and photo documentation.? Etiology is listed as calciphylaxis recommend General surgery assessment for biopsy and or debridement. TT to provider for consult and topical recommendations. Bilateral Ischium Etiology: Left Stage 3 PI and Right resurfaced Stage 2 PI Wound Bed: various stages Left full thickness tissue loss with pink red wound bed - right side with recently resurfaced tissue - no induraiton noted Drainage / Odor: scant serous and serosang drainage noted Edges: ?well defined and unattached to left Rekha wound: No Fluctuance or Warmth noted Pain: extreme pain reported Goals of Treatment: ?Foam dressing Perineal area - -noted for MASD and fungal dermatitis - recommend topical antifungal treatment. TT to provider. Left Leg Right Leg Right Medial Leg - with small area of moist yellow slough Bilateral Legs Etiology: ?Unclear Etiology Wound Bed: mostly dry stable necrotic eschar small areas of moist lifted eschar reveals yellow slough Drainage / Odor: small amount of ten drainage Edges: ? irregular and rolled Rekha wound: ? swelling noted Pain: extreme pain reported Goals of Treatment: ? request for general surgery to assess - dry dressing vs xeroform to keep eschar stable and intact for autolytic debridement Right Side Left Side Posterior Hip Flank area Etiology: ?Unclear Etiology Wound Bed: various stages of necrotic slough Drainage / Odor: yellow corey green blue drainage indicative of pseudomonas Edges: ? irregular and atypical Rekha wound: ? No Induration or Warmth noted Pain: extreme pain reported Goals of Treatment: ?Dakins wet to moist dressing and request for general surgery to assess Recommendations: 1. Turn and Reposition every 2 hours and as needed for patient comfort.? Use pillows or wedges to support off loading positions. 2. Off Load all bony prominences with use of pillows and heel boots if needed.? Apply Preventative foams where needed. ? 3. Monitor for incontinence and moisture control, use barrier creams when needed for prevention and treatment. 4. Provide adequate and supplemental nutrition.? 5. Continue low air loss mattress. 6. When applicable maintain blood glucose levels per Providers order. 7. Bilateral Lower Legs and - Cleanse with Ns moist gauze, dry well. Apply skin prep to periwound. Cover wounds with single layer of Xeroform followed by Gauze, ABD pad and wrap. May use foam dressing to posterior hip/ flank to aid in pressure redistribution. 8. Posterior Hip and Flank area - Off load pressure with Q2hr turns and pillows. Cleanse with Dakins moist gauze, Apply skin barrier to wound edges, apply Dakins moist gauze to wound beds, cover with dry gauze, ABD pads. Change daily. 9. Bilateral Ischium and coccyx - Apply skin prep, cover with foam dressing. Change every 5 days and PRN. 10. Perineal - Apply antifungal per provider order. Recommend follow up out patient Wound Clinic at [address] [place] [id number] and to call for an appointment at time of discharge. [phone].? Re-consult wound care Nurse for wound deterioration or wound changes.
[2024-08-19 15:34] VITALS: BP 138/79; PULSE 78; RESP 18; TEMP 36.3; O2SAT 93
--- NOTE | 2024-08-19 16:31 | P.CONGS_ITS ---
History of Present Illness Consult details Consult date: 08/19/24 Requesting physician: Aaron Serrano Narrative: 43-year-old female patient with a history of ESRD on HD, lupus, antiphospholipid syndrome, DVT on Coumadin, history of MRSA bacteremia, opioid use, hypertension, GERD, with bilateral lower extremity wounds suggested secondary to calciphylaxis. Patient is currently unable to provide much history therefore history obtained through the medical record. Photos reviewed from the wound nurse record. Surgical consultation was requested for possible debridement of necrotic wounds of bilateral lower extremities. Review of Systems 2 Review of Systems: Yes Unobtainable due to mental status PMFSH Past Medical History Medical History Bacteremia due to Klebsiella pneumoniae Calciphylaxis with nonhealing ulcer of leg Hemodialysis patient Eschar of lower leg Chronic liver disease End stage renal disease on dialysis Secondary hyperparathyroidism (of renal origin) Accelerated essential hypertension Tobacco abuse Opioid use disorder Lupus (systemic lupus erythematosus) Leukocytosis Bacteremia Left tibial fracture Acute renal failure superimposed on chronic kidney disease Cocaine abuse CKD (chronic kidney disease) Antiphospholipid antibody syndrome MDD (major depressive disorder), recurrent episode, moderate Opioid use disorder, severe, dependence Cocaine use disorder Cellulitis Substance abuse Seizures Candidemia Opioid use disorder, severe, dependence PTSD (post-traumatic stress disorder) Bipolar disorder Opiate abuse, continuous Pulmonary emboli DVT (deep venous thrombosis) [place] filter in place Pneumonia Lupus Family History Family history: reviewed and not pertinent Surgical History Surgical History History of appendectomy Hx of splenectomy Social History Social History Household Members: None Housing: Apartment Housing Other:: lIVING IN A Program House Do you presently have visiting nurse or other home services: Yes (canvas worker's and vna's.) Alcohol intake: never Patient Tobacco Use Status: Former Tobacco user Tobacco use type: Cigarette Cigarettes Per Day: 2 Years Smoked: 24 Smoked in Last 30 Days: No e-Cigarette/Vaping Use: Never Used Patient Interested in Nicotine Replacement: No Patient Given Instructions on How to Stop Smoking: No Second Hand Smoke Exposure: No Use of substances other than those prescribed or required for medical reasons: No Substance Use Type: Crack/Cocaine Currently Displaying Signs/Symptoms of Drug Intoxication Withdrawal: No Have you been hit, kicked, punched, or otherwise hurt by someone within the past year? If so, by whom?: No Do you feel safe in your current relationship?: No Current Relationship Is there a partner from a previous relationship who is making you feel unsafe now?: No Are you made to feel afraid or neglected: No Advance Directives: Yes Advance Directives on File: Yes Advance Directives Date on File: 02/14/21 Do you have a plan to hurt others: No Plan Recently lost weight without trying: No How much weight loss: Not applicable Eating poorly because of decreased appetite: No Nutrition screen score: 0 Nutrition Risks: No Nutritional Risk Patient : No : No Poor oral hygiene: No service: No Current occupational status: employed and student Sexual orientation: Did not discuss Cognitive needs: No Hearing needs: No Vision needs: No Meds Allergies Allergy/AdvReac Type Severity Reaction Status Date / Time No Known Allergies Allergy Verified 07/27/24 13:47 Active Medications: Current Medications Acetaminophen (Acetaminophen 325 Mg Tablet) 650 mg PO Q6H PRN PRN Reason: Pain, Mild 1-3,fever,headache Last Admin: 08/19/24 05:43 Dose: 650 mg Albuterol Sulfate (Albuterol Sulfate 90 Mcg 8 Gm Inhaler) 2 puff INHALE RQ4H PRN PRN Reason: Wheezing Amlodipine Besylate (Amlodipine Besylate 10 Mg Tablet) 10 mg PO DAILY [facility]; Protocol Last Admin: 08/19/24 08:23 Dose: 10 mg Bupropion HCl (Bupropion Hcl Xl 300 Mg Tab.Er.24h) 300 mg PO DAILY [facility] Last Admin: 08/19/24 08:22 Dose: 300 mg Clonidine HCl (Clonidine Hcl 0.2 Mg Tablet) 0.2 mg PO BEDTIME [facility]; Protocol Last Admin: 08/18/24 22:22 Dose: 0.2 mg Cyanocobalamin (Cyanocobalamin (Vitamin B-12) 100 Mcg Tablet) 100 mcg PO DAILY [facility] Last Admin: 08/19/24 08:23 Dose: 100 mcg Doxepin HCl (Doxepin Hcl 10 Mg Capsule) 10 mg PO BEDTIME [facility] Last Admin: 08/18/24 22:23 Dose: 10 mg Epoetin Aldo-epbx (Epoetin Aldo-Epbx 10,000 Unit/Ml Vial) 8,000 unit IVPUSH TuThSa@1800 [facility] Gabapentin (Gabapentin 600 Mg Tablet) 600 mg PO BID [facility] Last Admin: 08/19/24 08:23 Dose: 600 mg Heparin Sodium (Porcine) (Heparin Sodium,Porcine 5,000 Unit/Ml Vial) 5,000 unit INTRACATH TUTHSA@1645 [facility] Hydroxyzine HCl (Hydroxyzine Hcl 50 Mg Tablet) 50 mg PO TID PRN PRN Reason: Anxiety Last Admin: 08/19/24 10:58 Dose: 50 mg Sodium Thiosulfate 12.5 gm/ (Sodium Chloride) 200 mls @ 400 mls/hr IV Q30M [facility] Stop: 08/20/24 18:59 Sodium Thiosulfate 12.5 gm/ (Sodium Chloride) 200 mls @ 400 mls/hr IV Q30M [facility] Stop: 08/18/24 23:14 Magnesium Hydroxide (Milk Of Magnesia 30 Ml Oral.Susp) 30 ml PO DAILY PRN PRN Reason: Constipation Melatonin (Melatonin 3 Mg Tablet) 6 mg PO BEDTIME PRN PRN Reason: Insomnia Meropenem (Meropenem 500 Mg Vial) 500 mg IV TUTHSA [facility] Last Admin: 08/18/24 22:32 Dose: 500 mg Methadone HCl (Methadone Hcl 20 Mg/2 Ml Oral.Conc) 100 mg PO DAILY [facility] Last Admin: 08/19/24 08:21 Dose: 100 mg Methadone HCl (Methadone Hcl 20 Mg/2 Ml Oral.Conc) 95 mg PO BEDTIME [facility] Last Admin: 08/18/24 22:44 Dose: 95 mg Multivitamins/Vitamin C (Multivitamin Tablet) 1 tab PO DAILY [facility] Last Admin: 08/19/24 08:23 Dose: 1 tab Non-Formulary Medication (Lumateperone [Caplyta]) 42 mg PO DAILY [facility] Nystatin (Nystatin Oral Susp 500,000 Unit/5 Ml Oral.Susp) 100,000 unit PO DAILY [facility]; Protocol PRN Reason: FLARES Nystatin (Nystatin Powder 15 Gm Bottle) 1 appl TOPICAL BID [facility]; Protocol Omeprazole (Omeprazole 20 Mg Capsule.Dr) 20 mg PO DAILY@0630 [facility] Last Admin: 08/19/24 05:39 Dose: 20 mg Oxycodone HCl (Oxycodone Hcl Immed Release 5 Mg Tablet) 5 mg PO Q4H PRN PRN Reason: Pain, Moderate(Pain Scale 4-6) Last Admin: 08/19/24 13:50 Dose: 5 mg Polyethylene Glycol (Polyethylene Glycol 3350 17 Gm Powd.Pack) 17 gm PO DAILY PRN PRN Reason: Constipation Quetiapine Fumarate (Quetiapine Fumarate 50 Mg Tablet) 50 mg PO TID PRN PRN Reason: Anxiety Last Admin: 08/18/24 22:22 Dose: 50 mg Sodium Chloride (0.9 % Sodium Chloride Flush 3 Ml Syringe) 3 ml IVFLUSH QSHIFT [facility] Last Admin: 08/19/24 08:28 Dose: 3 ml Sodium Hypochlorite (Sodium Hypochlorite 0.5% 473 Ml Solution) 1 appl TOPICAL DAILY [facility] Topiramate (Topiramate 100 Mg Tablet) 100 mg PO BID [facility] Last Admin: 08/19/24 08:23 Dose: 100 mg Trazodone HCl (Trazodone Hcl 100 Mg Tablet) 100 mg PO BEDTIME PRN PRN Reason: Insomnia Last Admin: 08/18/24 22:22 Dose: 100 mg Vancomycin HCl (Vancomycin Hcl 125 Mg Capsule) 125 mg PO Q6H [facility] Last Admin: 08/19/24 10:51 Dose: 125 mg Warfarin Sodium (Warfarin Sodium 2.5 Mg Tablet) 2.5 mg PO DAILY@1800 [facility] Home Medications ?Medication ?Instructions ?Recorded ?Confirmed ?Last Taken ?Type methadone 10 mg/mL oral concentrate 100 mg PO DAILY 05/30/24 08/18/24 08/18/24 09:00 History doxepin 10 mg capsule 10 mg PO BEDTIME 07/27/24 08/18/24 07/27/24 History meloxicam 15 mg tablet 15 mg PO DAILY 07/27/24 08/18/24 07/27/24 History warfarin 2.5 mg tablet 2.5 mg PO DAILY@1800 07/27/24 08/18/24 07/27/24 History acetaminophen 325 mg tablet 325 mg PO Q6H PRN Headache/Pain 08/18/24 08/18/24 Unknown History Mild Scale (1-3) darbepoetin aldo in polysorbat 60 60 mcg subcut QWEEK 08/18/24 08/18/24 Unknown History mcg/0.3 mL in polysorbate injection syringe meropenem 500 mg intravenous 500 mg IV [facility] 08/18/24 08/18/24 Unknown History solution methadone 10 mg/mL oral 95 mg PO BEDTIME 08/18/24 08/18/24 08/17/24 21:00 History concentrate (Methadone Intensol) sodium thiosulfate 12.5 gram/50 mL 25 g IV [facility] 08/18/24 08/18/24 08/18/24 11:45 History (250 mg/mL) intravenous solution Physical Exam 2 Vital Signs: Vital Signs: Last Vital Signs Temp 97.3 F 08/19/24 15:34 Pulse 78 08/19/24 15:34 Resp 18 08/19/24 15:34 BP 138/79 08/19/24 15:34 Pulse Ox 93 08/19/24 15:34 O2 Del Method Room Air 08/19/24 15:34 O2 Flow Rate 2 08/19/24 06:54 BMI result Body Mass Index 27.4 Const: Other: Appears much older than stated age General: patient obtunded Nutritional Appearance: thin O rientation/consciousness: patient obtunded Resp: Effort & Inspection: normal respiratory effort, no audible wheezes and no cough Neuro: General: patient obtunded Extrem: Other: Photos reviewed of the bilateral lower extremities provided by Jackelyn Beckham: Extensive necrotic epidermal changes noted to bilateral lower extremities, nearly circumferential. Results Labs Labs: Abnormal lab results 08/18/24 Range/Units 20:56 C. difficile Tox B Gene POSITIVE A* (Negative) C. difficile Toxin A&B Positive A* (Negative) All other labs normal. Assessment and Plan (1) Eschar of lower leg: Status: Acute (2) End stage renal disease on dialysis: Status: Acute Plan 43-year-old female patient with multiple medical problems found to have bilateral lower extremity eschars possibly due to calciphylaxis. This has involving extensive portion of the calves in his nearly circumferential. Management of these wounds would require extensive debridement with the assistance of Plastic surgery for wound coverage in his much more extensive that can be handled at our facility. Patient will be best treated at a tertiary care center with multimodality treatment including plastic surgery and inpatient wound care. Procedures Date of Service Date of Service: 08/19/24
[2024-08-19] MEDS: Warfarin Sodium 2.5 MG TABLET PO (17:15)
[2024-08-19 19:29] VITALS: BP 151/90; PULSE 79; RESP 18; TEMP 37; O2SAT 100
[2024-08-19] MEDS: cloNIDine HCL 0.2 MG TABLET PO (21:19)
[2024-08-19] MEDS: Doxepin HCl 10 MG CAPSULE PO (21:19)
[2024-08-19] MEDS: Nystatin Powder 15 GM BOTTLE 1 APPL TOPICAL (21:22)
[2024-08-19] MEDS: methADONE HCl 20 MG/2 ML ORAL.CONC 95 MG PO (21:22)
[2024-08-20] MEDS: oxyCODONE HCl Immed Release 5 MG TABLET PO ×4 (00:25→21:55)
[2024-08-20 03:34] VITALS: BP 158/90; PULSE 74; RESP 18; TEMP 36.6; O2SAT 96
[2024-08-20] MEDS: vancomycin HCL 125 MG CAPSULE PO ×4 (05:20→21:55)
[2024-08-20] MEDS: Omeprazole 20 MG CAPSULE.DR PO (05:21)
[2024-08-20 07:42] VITALS: BP 147/95; PULSE 73; RESP 18; TEMP 36.6; O2SAT 96
[2024-08-20] MEDS: amLODIPine Besylate 10 MG TABLET PO (09:15)
[2024-08-20] MEDS: Topiramate 100 MG TABLET PO ×2 (09:15→21:55)
[2024-08-20] MEDS: methADONE HCl 20 MG/2 ML ORAL.CONC 100 MG PO (09:16)
[2024-08-20] MEDS: Cyanocobalamin (Vitamin B-12) 100 MCG TABLET PO (09:16)
[2024-08-20] MEDS: 0.9 % Sodium Chloride Flush 3 ML SYRINGE IVFLUSH ×3 (09:16→22:14)
[2024-08-20] MEDS: Multivitamin TABLET 1 TAB PO (09:16)
[2024-08-20] MEDS: buPROPion HCl XL 300 MG TAB.ER.24H PO (09:16)
[2024-08-20] MEDS: Gabapentin 600 MG TABLET PO ×2 (09:16→21:56)
[2024-08-20] MEDS: Nystatin Powder 15 GM BOTTLE 1 APPL TOPICAL ×2 (09:19→21:57)
[2024-08-20 13:26] LABS: MANUAL DIFF FLAG NO
[2024-08-20 13:29] LABS: Basophils Absolute Auto 0.1 X10*3/uL (0.0-0.2); Basophils Percent Auto 1.1 % (0-2); Eosinophils Absolute Auto 0.4 X10*3/uL (0.0-0.4); Eosinophils Percent Auto 4.3 % (0-4); Hematocrit 23.5 % (37.0-47.0); Hemoglobin 7.5 g/dl (12.0-16.0); Imm Gran Abs Auto 0.06 X10*3/uL (0.00-0.03); Imm Gran Pct Auto 0.6 % (0.0-0.4); Lymphocytes Absolute Auto 0.8 X10*3/uL (1.2-4.9); Lymphocytes Percent Auto 7.9 % (20-40); Mean Corpuscular HGB Conc 31.9 g/dl (31.0-35.0); Mean Corpuscular Volume 90.7 fL (80.0-98.0); Mean Platelet Volume 10.6 fL (9.4-12.3); Monocytes Absolute Auto 0.8 X10*3/uL (0.1-1.2); Monocytes Percent Auto 8.8 % (2-11); Neutrophils Absolute Auto 7.4 x10*3/uL (2.0-8.3); Neutrophils Percent Auto 77.3 % (45-73); Platelet Count 323 X10*3/uL (160-400); Red Blood Count 2.59 X10*6/uL (4.20-5.50); Red Cell Distribution Width 21.3 % (11.0-16.0); White Blood Count 9.6 X10*3/uL (4.8-10.8)
[2024-08-20 13:34] LABS: INTERNATIONAL NORM RATIO 2.3 (0.9-1.1); Prothrombin Time 26.7 SEC (10.9-12.4); Prothrombin Time 26.9 SEC (10.9-12.4)
[2024-08-20 13:49] LABS: Anion Gap 13 (12-20); Blood Urea Nitrogen 24 mg/dL (9-16); Calcium 8.3 mg/dL (8.4-10.2); Carbon Dioxide 26 mmol/L (22-29); Chloride 104 mmol/L (96-108); Creatinine Clr Calc Pharmacy 29.1; Estimated Glomerular Filt Rate 19; Glucose Random 87 mg/dL (60-115); Sodium 139 mmol/L (135-145)
--- NOTE | 2024-08-20 15:32 | P.PNID_ITS ---
Subjective Subjective Date of Service: 08/20/24 Critical Care Time (minutes): 15 Comment: she has no complaints Objective Data Labs 08/20/24 13:17 08/20/24 13:17 Labs: Laboratory Results - last 24 hr 08/20/24 08/20/24 08/20/24 13:17 13:17 13:17 WBC 9.6 RBC 2.59 L Hgb 7.5 L Hct 23.5 L MCV 90.7 MCH 29.0 MCHC 31.9 RDW 21.3 H Plt Count 323 D MPV 10.6 Immature Gran % (Auto) 0.6 H Neut % (Auto) 77.3 H Lymph % (Auto) 7.9 L [place] % (Auto) 8.8 Eos % (Auto) 4.3 H Baso % (Auto) 1.1 Lymph # (Auto) 0.8 L [place] # (Auto) 0.8 Eos # (Auto) 0.4 Baso # (Auto) 0.1 Abs Immat Gran (auto) 0.06 H Absolute Neuts (auto) 7.4 Absolute Nucleated RBC 0.000 Nucleated RBC % (auto) 0.0 PT 26.9 H 26.7 H D INR 2.3 H 2.3 H Sodium 139 Potassium 4.0 D Chloride 104 Carbon Dioxide 26 Anion Gap 13 BUN 24 H Creatinine 2.77 H Estim Creat Clear Calc 29.1 Estimated GFR 19 Random Glucose 87 Calcium 8.3 L Microbiology Microbiology Results: Microbiology 08/18/24 19:34 Blood - Venous Blood Culture - Preliminary No growth after 24 hours. 08/18/24 19:34 Blood - Venous Blood Culture - Preliminary No growth after 24 hours. Physical Exam 2 Vital Signs: Vital Signs: Last Vital Signs Temp 97.9 F 08/20/24 07:42 Pulse 73 08/20/24 07:42 Resp 18 08/20/24 07:42 BP 147/95 H 08/20/24 07:42 Pulse Ox 96 08/20/24 07:42 O2 Del Method Room Air 08/20/24 07:42 O2 Flow Rate 2 08/20/24 03:34 BMI result Body Mass Index 27.4 Const: General: cooperative HEENT: Head: Yes normal to inspection Face and sinus: Yes normal facial exam Mouth: Normal oral and palatal mucosa present Teeth and gingiva: d entition normal Eyes: General: appearance normal, both eyes and all related structures P upils: Equal, round and reactive pupils present Resp: Effort & Inspection: normal respiratory effort Cardio: Rate: regular rate Rhythm: regular rhythm GI: Palpation (GI): Soft to palpation and nontender : General: Yes no CVA tenderness Back/Spine/Pelvis: Back: no CVA tenderness Skin: General skin exam: no rashes or lesions noted Neuro: General: moves all extremities Cranial nerves: Yes Equal, round and reactive pupils present Extrem: General: Yes normal to inspection Psych: Appearance: grossly normal Assessment and Plan Assessment and plan (1) Clostridium difficile infection: Status: Acute (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 If Pseudomonas from line culture is resistant or if Klebsiella from line or blood has become resistant would give Merem for full six weeks as dont want to call colonization even if not bacteremic with Pseudomonas due to severity of illness and not surgical candidate for any heart surgery to remove vegetation apparently Time Spent With Patient Time: Total time managing care of this patient today ____ minutes.
--- NOTE | 2024-08-20 15:58 | HO.PM.IMPN ---
Subjective Subjective Date of Service: 08/20/24 Interval History: Seen and evaluated this morning reporting feeling better overall, ambulating in her room no more diarrhea overnight pain under fair control no other events Review of Systems Review of Systems: Yes all other systems are reviewed and are negative Physical Exam Vital Signs: Vital Signs: Last Vital Signs Temp 97.9 F 08/20/24 07:42 Pulse 73 08/20/24 07:42 Resp 18 08/20/24 07:42 BP 147/95 H 08/20/24 07:42 Pulse Ox 96 08/20/24 07:42 O2 Del Method Room Air 08/20/24 07:42 O2 Flow Rate 2 08/20/24 03:34 BMI result Body Mass Index 27.4 Const: Other: Constitutional : Awake, interactive, frail looking, not in distress Neck : Normal inspection, Supple Cardiovascular : RRR, no JVP, no lower extremity edema Respiratory : good bilateral air entry, no crackles, wheezes or rhonchi, on O2 supplement Gastrointestinal: soft, lax, Normal bowel sounds, Non tender Skin : Warm, Dry, bilateral lower extremities eschar Neurological : Alert & oriented x3, No focal deficit Objective Data Active Medications Acetaminophen (Acetaminophen 325 Mg Tablet) 650 mg PO Q6H PRN PRN Reason: Pain, Mild 1-3,fever,headache Last Admin: 08/19/24 05:43 Dose: 650 mg Documented By: ELI Albuterol Sulfate (Albuterol Sulfate 90 Mcg 8 Gm Inhaler) 2 puff INHALE RQ4H PRN PRN Reason: Wheezing Amlodipine Besylate (Amlodipine Besylate 10 Mg Tablet) 10 mg PO DAILY [facility]; Protocol Last Admin: 08/20/24 09:15 Dose: 10 mg Documented By: JAMIE Bupropion HCl (Bupropion Hcl Xl 300 Mg Tab.Er.24h) 300 mg PO DAILY [facility] Last Admin: 08/20/24 09:16 Dose: 300 mg Documented By: JAMIE Clonidine HCl (Clonidine Hcl 0.2 Mg Tablet) 0.2 mg PO BEDTIME [facility]; Protocol Last Admin: 08/19/24 21:19 Dose: 0.2 mg Documented By: GEOVANNA Cyanocobalamin (Cyanocobalamin (Vitamin B-12) 100 Mcg Tablet) 100 mcg PO DAILY [facility] Last Admin: 08/20/24 09:16 Dose: 100 mcg Documented By: JAMIE Doxepin HCl (Doxepin Hcl 10 Mg Capsule) 10 mg PO BEDTIME [facility] Last Admin: 08/19/24 21:19 Dose: 10 mg Documented By: GEOVANNA Epoetin Devin-epbx (Epoetin Devin-Epbx 10,000 Unit/Ml Vial) 8,000 unit IVPUSH TuThSa@1800 [facility] Gabapentin (Gabapentin 600 Mg Tablet) 600 mg PO BID [facility] Last Admin: 08/20/24 09:16 Dose: 600 mg Documented By: JAMIE Heparin Sodium (Porcine) (Heparin Sodium,Porcine 5,000 Unit/Ml Vial) 5,000 unit INTRACATH TUTHSA@1645 [facility] Last Admin: 08/20/24 05:23 Dose: Not Given Documented By: GEOVANNA Non-Admin Reason: Patient Refused Hydroxyzine HCl (Hydroxyzine Hcl 50 Mg Tablet) 50 mg PO TID PRN PRN Reason: Anxiety Last Admin: 08/19/24 10:58 Dose: 50 mg Documented By: SKY Sodium Thiosulfate 12.5 gm/ (Sodium Chloride) 200 mls @ 400 mls/hr IV Q30M [facility] Stop: 08/20/24 18:59 Sodium Thiosulfate 12.5 gm/ (Sodium Chloride) 200 mls @ 400 mls/hr IV Q30M [facility] Stop: 08/18/24 23:14 Magnesium Hydroxide (Milk Of Magnesia 30 Ml Oral.Susp) 30 ml PO DAILY PRN PRN Reason: Constipation Melatonin (Melatonin 3 Mg Tablet) 6 mg PO BEDTIME PRN PRN Reason: Insomnia Meropenem (Meropenem 500 Mg Vial) 500 mg IV TUTHSA [facility] Last Admin: 08/18/24 22:32 Dose: 500 mg Documented By: FADUMOQC Methadone HCl (Methadone Hcl 20 Mg/2 Ml Oral.Conc) 100 mg PO DAILY [facility] Last Admin: 08/20/24 09:16 Dose: 100 mg Documented By: JAMIE Co-signed By: BARBARA Methadone HCl (Methadone Hcl 20 Mg/2 Ml Oral.Conc) 95 mg PO BEDTIME [facility] Last Admin: 08/19/24 21:22 Dose: 95 mg Documented By: GEOVANNA Co-signed By: HO.CASTILM Multivitamins/Vitamin C (Multivitamin Tablet) 1 tab PO DAILY [facility] Last Admin: 08/20/24 09:16 Dose: 1 tab Documented By: JAMIE Non-Formulary Medication (Lumateperone [Caplyta]) 42 mg PO DAILY [facility] Nystatin (Nystatin Oral Susp 500,000 Unit/5 Ml Oral.Susp) 100,000 unit PO DAILY PRN; Protocol PRN Reason: FLARES Nystatin (Nystatin Powder 15 Gm Bottle) 1 appl TOPICAL BID [facility]; Protocol Last Admin: 08/20/24 09:19 Dose: 1 appl Documented By: JAMIE Omeprazole (Omeprazole 20 Mg Capsule.Dr) 20 mg PO DAILY@0630 [facility] Last Admin: 08/20/24 05:21 Dose: 20 mg Documented By: GEOVANNA Oxycodone HCl (Oxycodone Hcl Immed Release 5 Mg Tablet) 5 mg PO Q4H PRN PRN Reason: Pain, Moderate(Pain Scale 4-6) Last Admin: 08/20/24 05:22 Dose: 5 mg Documented By: GEOVANNA Polyethylene Glycol (Polyethylene Glycol 3350 17 Gm Powd.Pack) 17 gm PO DAILY PRN PRN Reason: Constipation Quetiapine Fumarate (Quetiapine Fumarate 50 Mg Tablet) 50 mg PO TID PRN PRN Reason: Anxiety Last Admin: 08/18/24 22:22 Dose: 50 mg Documented By: ELI Sodium Chloride (0.9 % Sodium Chloride Flush 3 Ml Syringe) [facility] Last Admin: 08/20/24 09:16 Dose: 3 ml Documented By: JAMIE Sodium Hypochlorite (Sodium Hypochlorite 0.5% 473 Ml Solution) 1 appl TOPICAL DAILY [facility] Last Admin: 08/20/24 09:19 Dose: Not Given Documented By: JAMIE Non-Admin Reason: dressings not changed at this time Topiramate (Topiramate 100 Mg Tablet) 100 mg PO BID [facility] Last Admin: 08/20/24 09:15 Dose: 100 mg Documented By: JAMIE Trazodone HCl (Trazodone Hcl 100 Mg Tablet) 100 mg PO BEDTIME PRN PRN Reason: Insomnia Last Admin: 08/18/24 22:22 Dose: 100 mg Documented By: ELI Vancomycin HCl (Vancomycin Hcl 125 Mg Capsule) 125 mg PO Q6H [facility] Last Admin: 08/20/24 11:46 Dose: 125 mg Documented By: JAMIE Warfarin Sodium (Warfarin Sodium 2.5 Mg Tablet) 2.5 mg PO DAILY@1800 [facility] Last Admin: 08/19/24 17:15 Dose: 2.5 mg Documented By: SKY Labs 08/20/24 13:17 08/20/24 13:17 Labs: Laboratory Results - last 24 hr 08/20/24 08/20/24 08/20/24 13:17 13:17 13:17 MCV 90.7 MCH 29.0 MCHC 31.9 RDW 21.3 H Plt Count 323 D MPV 10.6 Immature Gran % (Auto) 0.6 H Neut % (Auto) 77.3 H Lymph % (Auto) 7.9 L [place] % (Auto) 8.8 Eos % (Auto) 4.3 H Baso % (Auto) 1.1 Lymph # (Auto) 0.8 L [place] # (Auto) 0.8 Eos # (Auto) 0.4 Baso # (Auto) 0.1 Abs Immat Gran (auto) 0.06 H Absolute Neuts (auto) 7.4 Absolute Nucleated RBC 0.000 Nucleated RBC % (auto) 0.0 PT 26.9 H 26.7 H D INR 2.3 H 2.3 H Anion Gap 13 Estim Creat Clear Calc 29.1 Estimated GFR 19 Random Glucose 87 Calcium 8.3 L Microbiology Microbiology Results: Microbiology 08/18/24 19:34 Blood Culture - Preliminary Blood - Venous No growth after 24 hours. 08/18/24 19:34 Blood Culture - Preliminary Blood - Venous No growth after 24 hours. 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 Pt was transferred to [place] due to concern for right atrial mass associated dialysis catheter tip, and pt is now being transferred back [place] [facility] [place] continued treatment and STR placement. Acute C diff infection Stool studies positive for C diff on 08/18 no diarrhea overnight vancomycin 125 mg p.o. q.6 ID consult Right atrial mass TTE at [place] showed severely dilated left atrium and left ventricle, LVEF 59%, adherent mass with mobile components of left atrium Culture positive for Klebsiella pneumoniae that has cephalosporin resistant gene positive and Pseudomonas colonization Pt is started on meropenem 500 mg IV, continue for total of 6 weeks Follow up outpatient with Cardiology at [facility] [place] discharge for repeat TTE and possible outpatient cardiac MRI Dilated CBD CT of abdomen and pelvis on 08/07 [place] found distended gallbladder and distal CBD dilation of 1.1 cm and possible filling deficit and distal CBD concerning for choledocholithiasis GI recommendation was for MRCP at [place], however pt refused Pt currently asymptomatic without RUQ abdominal pain, no nausea or vomiting; has been eating and drinking without issue Currently no indication for MRCP, Consider GI consult and repeat imaging if pt develops symptoms Bilateral lower extremity wounds 2/2 Calciphylaxis Continue sodium thiosulfate 25 g IV 3 times weekly during dialysis Wound care consult Analgesics for pain management Pt has so far declined debridement General surgery consult, require extensive debridement with the assistance of Plastic surgery for wound coverage in his much more extensive that can be handled at our facility. Patient will be best treated at a tertiary care center with multimodality treatment including plastic surgery and inpatient wound care. ESRD On HD T/ Nephrology consult Last dialyzed on 08/18/2024 Follow up BMP Anemia of chronic disease S/p 3 units PRBCs at [place] Start Retacrit 8000 units x3 weekly post dialysis Follow CBC, transfuse as necessary HTN Continue amlodipine and clonidine Antiphospholipid syndrome Continue warfarin Daily INR with target range 2-3 GERD Continue PPI Polysubstance use disorder Continue methadone 100 mg daily and 95 mg at bedtime Mood disorder Continue hydroxyzine, trazodone, topiramate, and bupropion Full Code Attending:?Dr. Salmon DVT Prophylaxis: On Warfarin Pt will require a hospitalization overnight for treatment of?acute C diff infection as well as continuing treatment for bacteremia and calciphylaxis. Pt will require hospital level care for administration of IV antibiotics, close monitoring of labs including CBC and electrolytes while awaiting placement Quality Stroke Does the patient have a stroke diagnosis?: No VTE Prior VTE?: No VTE Risk Level:: Medical - moderate - high VTE Device Contraindication: Treatment Not Indicated VTE Drug Contraindication: N/A - Med Ordered
[2024-08-20 16:00] VITALS: BP 155/102; PULSE 85; RESP 18; TEMP 36.4; O2SAT 94
[2024-08-20] MEDS: Epoetin Alfa-epbx 10,000 UNIT/ML VIAL 8000 UNIT IVPUSH (17:38)
[2024-08-20] MEDS: Warfarin Sodium 2.5 MG TABLET PO (17:41)
[2024-08-20] MEDS: SODIUM THIOSULFATE IV ×2 (17:42→18:19)
[2024-08-20] MEDS: SODIUM CHLORIDE 0.9% IV ×2 (17:42→18:19)
--- NOTE | 2024-08-20 18:39 | PC.NURSE ---
Pt allowed this RN to change bilateral leg dressings, endorsed pain with dressing change, PRN oxy given with mild effect. Pt refused to allow this RN to change any other dressing, states she wants them done tomorrow. This RN educated pt on importance of dressing changes and maintaining clean wounds, went over wound care nurse recommendations, pt continues to refuse.
[2024-08-20 19:46] VITALS: BP 178/90; PULSE 90; RESP 18; TEMP 37.1; O2SAT 94
[2024-08-20] MEDS: cloNIDine HCL 0.2 MG TABLET PO (21:55)
[2024-08-20] MEDS: Doxepin HCl 10 MG CAPSULE PO (21:55)
[2024-08-20] MEDS: methADONE HCl 20 MG/2 ML ORAL.CONC 95 MG PO (21:57)
[2024-08-20] MEDS: Meropenem 500 MG VIAL IV (22:00)
[2024-08-20] MEDS: traZODone HCL 100 MG TABLET PO (23:17)
[2024-08-20] MEDS: QUEtiapine Fumarate 50 MG TABLET PO (23:17)
[2024-08-21 04:00] VITALS: BP 170/78; PULSE 99; RESP 16; TEMP 37.3; O2SAT 93
[2024-08-21] MEDS: Omeprazole 20 MG CAPSULE.DR PO (05:14)
[2024-08-21] MEDS: vancomycin HCL 125 MG CAPSULE PO ×4 (05:14→20:53)
[2024-08-21] MEDS: oxyCODONE HCl Immed Release 5 MG TABLET PO ×4 (05:15→20:53)
[2024-08-21 07:12] VITALS: BP 167/101; PULSE 99; RESP 18; TEMP 37.2; O2SAT 94
[2024-08-21] MEDS: Acetaminophen 325 MG TABLET 650 MG PO (07:33)
[2024-08-21] MEDS: Topiramate 100 MG TABLET PO ×2 (07:34→20:53)
[2024-08-21] MEDS: buPROPion HCl XL 300 MG TAB.ER.24H PO (07:34)
[2024-08-21] MEDS: amLODIPine Besylate 10 MG TABLET PO (07:34)
[2024-08-21] MEDS: Gabapentin 600 MG TABLET PO ×2 (07:34→20:53)
[2024-08-21] MEDS: methADONE HCl 20 MG/2 ML ORAL.CONC 100 MG PO (07:34)
[2024-08-21] MEDS: Multivitamin TABLET 1 TAB PO (07:34)
[2024-08-21] MEDS: Cyanocobalamin (Vitamin B-12) 100 MCG TABLET PO (07:34)
[2024-08-21] MEDS: 0.9 % Sodium Chloride Flush 3 ML SYRINGE IVFLUSH ×3 (07:35→20:51)
[2024-08-21] MEDS: Nystatin Powder 15 GM BOTTLE 1 APPL TOPICAL ×2 (07:39→20:59)
--- NOTE | 2024-08-21 10:41 | HO.PM.IMPN ---
Subjective Subjective Date of Service: 08/21/24 Interval History: Seen and evaluated this morning reporting feeling better overall, ambulating in her room no more diarrhea overnight pain under fair control no other events Physical Exam Vital Signs: Vital Signs: Last Vital Signs Temp 99.0 F 08/21/24 07:12 Pulse 99 08/21/24 07:12 Resp 18 08/21/24 07:12 BP 167/101 H 08/21/24 07:12 Pulse Ox 94 08/21/24 07:12 O2 Del Method Nasal Cannula 08/21/24 07:12 O2 Flow Rate 2 08/21/24 07:12 BMI result Body Mass Index 27.4 Const: Other: Constitutional : Awake, interactive, frail looking, not in distress Neck : Normal inspection, Supple Cardiovascular : RRR, no JVP, no lower extremity edema Respiratory : good bilateral air entry, no crackles, wheezes or rhonchi, on O2 supplement Gastrointestinal: soft, lax, Normal bowel sounds, Non tender Skin : Warm, Dry, bilateral lower extremities eschar Neurological : Alert & oriented x3, No focal deficit Objective Data Active Medications Acetaminophen (Acetaminophen 325 Mg Tablet) 650 mg PO Q6H PRN PRN Reason: Pain, Mild 1-3,fever,headache Last Admin: 08/21/24 07:33 Dose: 650 mg Documented By: JAMIE Albuterol Sulfate (Albuterol Sulfate 90 Mcg 8 Gm Inhaler) 2 puff INHALE RQ4H PRN PRN Reason: Wheezing Amlodipine Besylate (Amlodipine Besylate 10 Mg Tablet) 10 mg PO DAILY [facility]; Protocol Last Admin: 08/21/24 07:34 Dose: 10 mg Documented By: JAMIE Bupropion HCl (Bupropion Hcl Xl 300 Mg Tab.Er.24h) 300 mg PO DAILY [facility] Last Admin: 08/21/24 07:34 Dose: 300 mg Documented By: JAMIE Clonidine HCl (Clonidine Hcl 0.2 Mg Tablet) 0.2 mg PO BEDTIME [facility]; Protocol Last Admin: 08/20/24 21:55 Dose: 0.2 mg Documented By: GEOVANNA Cyanocobalamin (Cyanocobalamin (Vitamin B-12) 100 Mcg Tablet) 100 mcg PO DAILY [facility] Last Admin: 08/21/24 07:34 Dose: 100 mcg Documented By: JAMIE Doxepin HCl (Doxepin Hcl 10 Mg Capsule) 10 mg PO BEDTIME [facility] Last Admin: 08/20/24 21:55 Dose: 10 mg Documented By: GEOVANNA Epoetin Devin-epbx (Epoetin Devin-Epbx 10,000 Unit/Ml Vial) 8,000 unit IVPUSH TuThSa@1800 [facility] Last Admin: 08/20/24 17:38 Dose: 8,000 unit Documented By: JAMIE Gabapentin (Gabapentin 600 Mg Tablet) 600 mg PO BID [facility] Last Admin: 08/21/24 07:34 Dose: 600 mg Documented By: JAMIE Heparin Sodium (Porcine) (Heparin Sodium,Porcine 5,000 Unit/Ml Vial) 5,000 unit INTRACATH TUTA@1645 [facility] Last Admin: 08/20/24 16:58 Dose: Not Given Documented By: JAMIE Non-Admin Reason: to be given in HD Hydroxyzine HCl (Hydroxyzine Hcl 50 Mg Tablet) 50 mg PO TID PRN PRN Reason: Anxiety Last Admin: 08/19/24 10:58 Dose: 50 mg Documented By: SKY Sodium Thiosulfate 12.5 gm/ (Sodium Chloride) 200 mls @ 400 mls/hr IV Q30M [facility] Stop: 08/18/24 23:14 Magnesium Hydroxide (Milk Of Magnesia 30 Ml Oral.Susp) 30 ml PO DAILY PRN PRN Reason: Constipation Melatonin (Melatonin 3 Mg Tablet) 6 mg PO BEDTIME PRN PRN Reason: Insomnia Meropenem (Meropenem 500 Mg Vial) 500 mg IV TUTHSA [facility] Last Admin: 08/20/24 22:00 Dose: 500 mg Documented By: GEOVANNA Methadone HCl (Methadone Hcl 20 Mg/2 Ml Oral.Conc) 100 mg PO DAILY [facility] Last Admin: 08/21/24 07:34 Dose: 100 mg Documented By: JAMIE Co-signed By: GEETHA Methadone HCl (Methadone Hcl 20 Mg/2 Ml Oral.Conc) 95 mg PO BEDTIME [facility] Last Admin: 08/20/24 21:57 Dose: 95 mg Documented By: GEOVANNA Co-signed By: DAYANARA Multivitamins/Vitamin C (Multivitamin Tablet) 1 tab PO DAILY [facility] Last Admin: 08/21/24 07:34 Dose: 1 tab Documented By: JAMIE Non-Formulary Medication (Lumateperone [Caplyta]) 42 mg PO DAILY [facility] Nystatin (Nystatin Oral Susp 500,000 Unit/5 Ml Oral.Susp) 100,000 unit PO DAILY [facility]; Protocol PRN Reason: FLARES Nystatin (Nystatin Powder 15 Gm Bottle) 1 appl TOPICAL BID [facility]; Protocol Last Admin: 08/21/24 07:39 Dose: 1 appl Documented By: JAMIE Omeprazole (Omeprazole 20 Mg Capsule.Dr) 20 mg PO DAILY@0630 [facility] Last Admin: 08/21/24 05:14 Dose: 20 mg Documented By: GEOVANNA Oxycodone HCl (Oxycodone Hcl Immed Release 5 Mg Tablet) 5 mg PO Q4H PRN PRN Reason: Pain, Moderate(Pain Scale 4-6) Last Admin: 08/21/24 05:15 Dose: 5 mg Documented By: GEOVANNA Polyethylene Glycol (Polyethylene Glycol 3350 17 Gm Powd.Pack) 17 gm PO DAILY PRN PRN Reason: Constipation Quetiapine Fumarate (Quetiapine Fumarate 50 Mg Tablet) 50 mg PO TID PRN PRN Reason: Anxiety Last Admin: 08/20/24 23:17 Dose: 50 mg Documented By: GEOVANNA Sodium Chloride (0.9 % Sodium Chloride Flush 3 Ml Syringe) 3 ml IVFLUSH QSHIFT [facility] Last Admin: 08/21/24 07:35 Dose: 3 ml Documented By: JAMIE Sodium Hypochlorite (Sodium Hypochlorite 0.5% 473 Ml Solution) 1 appl TOPICAL DAILY [facility] Last Admin: 08/21/24 08:29 Dose: Not Given Documented By: JAMIE Non-Admin Reason: pt refused Topiramate (Topiramate 100 Mg Tablet) 100 mg PO BID [facility] Last Admin: 08/21/24 07:34 Dose: 100 mg Documented By: JAMIE Trazodone HCl (Trazodone Hcl 100 Mg Tablet) 100 mg PO BEDTIME PRN PRN Reason: Insomnia Last Admin: 08/20/24 23:17 Dose: 100 mg Documented By: GEOVANNA Vancomycin HCl (Vancomycin Hcl 125 Mg Capsule) 125 mg PO Q6H [facility] Last Admin: 08/21/24 05:14 Dose: 125 mg Documented By: GEOVANNA Warfarin Sodium (Warfarin Sodium 2.5 Mg Tablet) 2.5 mg PO DAILY@1800 [facility] Last Admin: 08/20/24 17:41 Dose: 2.5 mg Documented By: JAMIE Labs 08/20/24 13:17 08/20/24 13:17 Labs: Laboratory Results - last 24 hr 08/20/24 08/20/24 08/20/24 13:17 13:17 13:17 MCV 90.7 MCH 29.0 MCHC 31.9 RDW 21.3 H Plt Count 323 D MPV 10.6 Immature Gran % (Auto) 0.6 H Neut % (Auto) 77.3 H Lymph % (Auto) 7.9 L [place] % (Auto) 8.8 Eos % (Auto) 4.3 H Baso % (Auto) 1.1 Lymph # (Auto) 0.8 L [place] # (Auto) 0.8 Eos # (Auto) 0.4 Baso # (Auto) 0.1 Abs Immat Gran (auto) 0.06 H Absolute Neuts (auto) 7.4 Absolute Nucleated RBC 0.000 Nucleated RBC % (auto) 0.0 PT 26.9 H 26.7 H D INR 2.3 H 2.3 H Anion Gap 13 Estim Creat Clear Calc 29.1 Estimated GFR 19 Random Glucose 87 Calcium 8.3 L Microbiology Microbiology Results: Microbiology 08/18/24 19:34 Blood Culture - Preliminary Blood - Venous No growth after 48 hours. 08/18/24 19:34 Blood Culture - Preliminary Blood - Venous No growth after 48 hours. 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 Pt was transferred to [place] due to concern for right atrial mass associated dialysis catheter tip, and pt is now being transferred back to [facility] [place] for continued treatment and STR placement. Acute C diff infection Stool studies positive for C diff on 08/18 no diarrhea overnight vancomycin 125 mg p.o. q.6 ID consult Right atrial mass complicated with Bacteremia TTE at [place] showed severely dilated left atrium and left ventricle, LVEF 59%, adherent mass with mobile components of left atrium Culture positive for Klebsiella pneumoniae that has cephalosporin resistant gene positive and Pseudomonas colonization Pt is started on meropenem 500 mg IV, continue for total of 6 weeks to finish by September 18/2025 Follow up outpatient with Cardiology at [facility] [place] after discharge for repeat TTE and possible outpatient cardiac MRI Dilated CBD CT of abdomen and pelvis on 08/07 [place] found distended gallbladder and distal CBD dilation of 1.1 cm and possible filling deficit and distal CBD concerning for choledocholithiasis GI recommendation was for MRCP at [place], however pt refused Pt currently asymptomatic without RUQ abdominal pain, no nausea or vomiting; has been eating and drinking without issue Currently no indication for MRCP, Consider GI consult and repeat imaging if pt develops symptoms Bilateral lower extremity wounds 2/2 Calciphylaxis Continue sodium thiosulfate 25 g IV 3 times weekly after dialysis Wound care consult Analgesics for pain management Pt has so far declined debridement General surgery consult, require extensive debridement with the assistance of Plastic surgery for wound coverage in his much more extensive that can be handled at our facility. Patient will be best treated at a tertiary care center with multimodality treatment including plastic surgery and inpatient wound care. Dr Pickens thinks it is better to be done as outpatient after finishing Bacteremia treatment ESRD On HD //Thu Nephrology consult Last dialyzed on 08/18/2024 Follow up BMP Anemia of chronic disease S/p 3 units PRBCs at [place] Start Retacrit 8000 units x3 weekly post dialysis Follow CBC, transfuse as necessary HTN Continue amlodipine and clonidine Antiphospholipid syndrome Continue warfarin Daily INR with target range 2-3 GERD Continue PPI Polysubstance use disorder Continue methadone 100 mg daily and 95 mg at bedtime Mood disorder Continue hydroxyzine, trazodone, topiramate, and bupropion Full Code DVT Prophylaxis: On Warfarin Pt will require a hospitalization overnight for treatment of?acute C diff infection as well as continuing treatment for bacteremia and calciphylaxis. Pt will require hospital level care for administration of IV antibiotics, close monitoring of labs including CBC and electrolytes while awaiting placement Quality Stroke Does the patient have a stroke diagnosis?: No VTE Prior VTE?: No VTE Risk Level:: Medical - moderate - high VTE Device Contraindication: Treatment Not Indicated VTE Drug Contraindication: N/A - Med Ordered
--- NOTE | 2024-08-21 12:48 | HE.PHANOTE ---
re warfarin and inr: Patient is having difficulty with lab draws. Seems to be easiest to obtain samples during dialysis. Per Dr Serrano, continue with same schedule of warfarin dosing at this time. Will attempt to obtain INR during each session of dialysis.
[2024-08-21 14:56] LABS: INTERNATIONAL NORM RATIO 2.2 (0.9-1.1); Prothrombin Time 26.2 SEC (10.9-12.4)
[2024-08-21 16:00] VITALS: BP 172/100; PULSE 96; RESP 18; TEMP 36.1; O2SAT 93
--- NOTE | 2024-08-21 17:31 | PC.NURSE ---
Pt refused dressing changes to bilateral lower extremities, last changed 08/20 by this RN, pt did however allow this RN to change flank and hip wounds including foam dressings. Due to multiple wounds Agiliti bed ordered, per Agiliti bed can not be delivered until tomorrow.
[2024-08-21] MEDS: Warfarin Sodium 2.5 MG TABLET PO (17:39)
[2024-08-21 18:19] VITALS: BP 161/93; RESP 18; O2SAT 95
[2024-08-21 19:20] VITALS: PULSE 90; RESP 17; TEMP 37
[2024-08-21] MEDS: Doxepin HCl 10 MG CAPSULE PO (20:53)
[2024-08-21] MEDS: methADONE HCl 20 MG/2 ML ORAL.CONC 95 MG PO (20:53)
[2024-08-21] MEDS: cloNIDine HCL 0.2 MG TABLET PO (20:53)
[2024-08-21] MEDS: traZODone HCL 100 MG TABLET PO (20:54)
[2024-08-22 04:00] VITALS: RESP 16
[2024-08-22 04:30] LABS: HBS Num1 772.17 mIU/mL (0-7.99); HBc Num1 9.43 S/CO (0.00-0.79); HBsAGNum1 0.26 S/CO (0.00-0.99); Hepatitis B Surface Antigen Negative (Negative); ~Hepatitis B Surface Antibody REACTIVE (Nonreactive)
[2024-08-22] MEDS: Omeprazole 20 MG CAPSULE.DR PO (05:10)
[2024-08-22] MEDS: vancomycin HCL 125 MG CAPSULE PO ×4 (05:10→22:20)
[2024-08-22] MEDS: oxyCODONE HCl Immed Release 5 MG TABLET PO ×4 (05:13→22:21)
[2024-08-22 05:14] LABS: HBc Num2 9.26 S/CO
[2024-08-22 05:15] LABS: HBc Num3 9.06 S/CO; Hepatitis B Core Antibody Reactive (Nonreactive)
[2024-08-22 07:54] VITALS: BP 129/86; PULSE 84; RESP 18; TEMP 37; O2SAT 97
[2024-08-22] MEDS: Cyanocobalamin (Vitamin B-12) 100 MCG TABLET PO (08:16)
[2024-08-22] MEDS: Multivitamin TABLET 1 TAB PO (08:16)
[2024-08-22] MEDS: amLODIPine Besylate 10 MG TABLET PO (08:16)
[2024-08-22] MEDS: buPROPion HCl XL 300 MG TAB.ER.24H PO (08:16)
[2024-08-22] MEDS: methADONE HCl 20 MG/2 ML ORAL.CONC 100 MG PO (08:16)
[2024-08-22] MEDS: Gabapentin 600 MG TABLET PO ×2 (08:16→20:52)
[2024-08-22] MEDS: Topiramate 100 MG TABLET PO ×2 (08:16→20:54)
[2024-08-22] MEDS: 0.9 % Sodium Chloride Flush 3 ML SYRINGE IVFLUSH ×3 (08:17→20:55)
[2024-08-22] MEDS: Sodium Hypochlorite 0.5% 473 ML SOLUTION 1 APPL TOPICAL (08:17)
[2024-08-22] MEDS: Nystatin Powder 15 GM BOTTLE 1 APPL TOPICAL ×2 (08:17→21:00)
--- NOTE | 2024-08-22 10:18 | P.PNNP_ITS ---
Subjective Subjective Date of Service: 08/22/24 Interval history: Patient seen and evaluated Physical Exam 2 Vital Signs: Vital Signs: Last Vital Signs Temp 98.6 F 08/22/24 07:54 Pulse 84 08/22/24 07:54 Resp 16 08/22/24 04:00 BP 161/93 H 08/21/24 18:19 Pulse Ox 97 08/22/24 07:54 O2 Del Method Nasal Cannula 08/22/24 07:54 O2 Flow Rate 2.0 08/22/24 07:54 BMI result Body Mass Index 27.4 Const: General: comfortable and no acute distress O rientation/consciousness: patient oriented x3 HEENT: Head: Yes normocephalic Mouth: Normal oral and palatal mucosa present Eyes: EOM: EOMs intact bilaterally Neck: Neck: Yes supple Resp: Auscultation: clear to auscultation bilaterally Cardio: Jugular venous distension: no JVD Rate: regular rate GI: Palpation (GI): Soft to palpation Auscultation: normal bowel sounds Neuro: General: patient oriented x3 and moves all extremities Objective Data Labs 08/20/24 13:17 08/20/24 13:17 Labs: Laboratory Results - last 24 hr 08/20/24 08/21/24 13:17 14:38 PT 26.2 H INR 2.2 H Hep Bs Antigen Negative Hep Bs Antibody REACTIVE Hep B Core Total Ab Reactive Hep B Core IgM Ab Cancelled Microbiology Microbiology Results: Microbiology 08/18/24 19:34 Blood - Venous Blood Culture - Preliminary No growth after 48 hours. 08/18/24 19:34 Blood - Venous Blood Culture - Preliminary No growth after 48 hours. Procedures Date of Service Date of Service: 08/23/24 Assessment & Plan Assessment and plan (1) End stage renal disease on dialysis: Status: Acute Plan Usually gets HD on TTS Has a functioning HD catheter Na thiosulphate TTS as ordered( 12.5 Gram) No Vitamin D , calcitriol or ca based binders Phos binders with meals Antibiotics as ordered. Needs cards F/U Shall follow along Time Spent With Patient Time: Total time managing care of this patient today ____ minutes. Progress Note: Quality Stroke Does the patient have a stroke diagnosis?: No
--- NOTE | 2024-08-22 11:29 | P.PNIM_ITS ---
Subjective Subjective Date of Service: 08/22/24 Interval History: Seen and evaluated this morning reporting feeling better overall, ambulating in her room no more diarrhea overnight pain under fair control no other events Physical Exam 2 Vital Signs: Vital Signs: Last Vital Signs Temp 98.6 F 08/22/24 07:54 Pulse 84 08/22/24 07:54 Resp 16 08/22/24 04:00 BP 161/93 H 08/21/24 18:19 Pulse Ox 97 08/22/24 07:54 O2 Del Method Nasal Cannula 08/22/24 07:54 O2 Flow Rate 2.0 08/22/24 07:54 BMI result Body Mass Index 27.4 Const: Other: Constitutional : Awake, interactive, frail looking, not in distress Neck : Normal inspection, Supple Cardiovascular : RRR, no JVP, no lower extremity edema Respiratory : good bilateral air entry, no crackles, wheezes or rhonchi, on O2 supplement Gastrointestinal: soft, lax, Normal bowel sounds, Non tender Skin : Warm, Dry, bilateral lower extremities eschar Neurological : Alert & oriented x3, No focal deficit Objective Data Active Medications Acetaminophen (Acetaminophen 325 Mg Tablet) 650 mg PO Q6H PRN PRN Reason: Pain, Mild 1-3,fever,headache Last Admin: 08/21/24 07:33 Dose: 650 mg Documented By: JAMIE Albuterol Sulfate (Albuterol Sulfate 90 Mcg 8 Gm Inhaler) 2 puff INHALE RQ4H PRN PRN Reason: Wheezing Amlodipine Besylate (Amlodipine Besylate 10 Mg Tablet) 10 mg PO DAILY [facility]; Protocol Last Admin: 08/22/24 08:16 Dose: 10 mg Documented By: JUAN M Bupropion HCl (Bupropion Hcl Xl 300 Mg Tab.Er.24h) 300 mg PO DAILY [facility] Last Admin: 08/22/24 08:16 Dose: 300 mg Documented By: JUAN M Clonidine HCl (Clonidine Hcl 0.2 Mg Tablet) 0.2 mg PO BEDTIME [facility]; Protocol Last Admin: 08/21/24 20:53 Dose: 0.2 mg Documented By: GEOVANNA Cyanocobalamin (Cyanocobalamin (Vitamin B-12) 100 Mcg Tablet) 100 mcg PO DAILY [facility] Last Admin: 08/22/24 08:16 Dose: 100 mcg Documented By: JUAN M Doxepin HCl (Doxepin Hcl 10 Mg Capsule) 10 mg PO BEDTIME [facility] Last Admin: 08/21/24 20:53 Dose: 10 mg Documented By: GEOVANNA Epoetin Devin-epbx (Epoetin Devin-Epbx 10,000 Unit/Ml Vial) 8,000 unit IVPUSH TuThSa@1800 [facility] Last Admin: 08/20/24 17:38 Dose: 8,000 unit Documented By: JAMIE Gabapentin (Gabapentin 600 Mg Tablet) 600 mg PO BID [facility] Last Admin: 08/22/24 08:16 Dose: 600 mg Documented By: JUAN M Heparin Sodium (Porcine) (Heparin Sodium,Porcine 5,000 Unit/Ml Vial) 5,000 unit INTRACATH TUTHSA@1645 [facility] Last Admin: 08/20/24 16:58 Dose: Not Given Documented By: JAMIE Non-Admin Reason: to be given in HD Hydroxyzine HCl (Hydroxyzine Hcl 50 Mg Tablet) 50 mg PO TID PRN PRN Reason: Anxiety Last Admin: 08/19/24 10:58 Dose: 50 mg Documented By: SKY Sodium Thiosulfate 12.5 gm/ (Sodium Chloride) 200 mls @ 400 mls/hr IV Q30M [facility] Stop: 08/18/24 23:14 Magnesium Hydroxide (Milk Of Magnesia 30 Ml Oral.Susp) 30 ml PO DAILY PRN PRN Reason: Constipation Melatonin (Melatonin 3 Mg Tablet) 6 mg PO BEDTIME PRN PRN Reason: Insomnia Meropenem (Meropenem 500 Mg Vial) 500 mg IV TUTA [facility] Last Admin: 08/20/24 22:00 Dose: 500 mg Documented By: GEOVANNA Methadone HCl (Methadone Hcl 20 Mg/2 Ml Oral.Conc) 100 mg PO DAILY [facility] Last Admin: 08/22/24 08:16 Dose: 100 mg Documented By: JUAN M Co-signed By: ANGELIA Methadone HCl (Methadone Hcl 20 Mg/2 Ml Oral.Conc) 95 mg PO BEDTIME [facility] Last Admin: 08/21/24 20:53 Dose: 95 mg Documented By: GEOVANNA Co-signed By: BOB Multivitamins/Vitamin C (Multivitamin Tablet) 1 tab PO DAILY [facility] Last Admin: 08/22/24 08:16 Dose: 1 tab Documented By: JUAN M Non-Formulary Medication (Lumateperone [Caplyta]) 42 mg PO DAILY [facility] Nystatin (Nystatin Oral Susp 500,000 Unit/5 Ml Oral.Susp) 100,000 unit PO DAILY PRN; Protocol PRN Reason: FLARES Nystatin (Nystatin Powder 15 Gm Bottle) 1 appl TOPICAL BID [facility]; Protocol Last Admin: 08/22/24 08:17 Dose: 1 appl Documented By: JUAN M Omeprazole (Omeprazole 20 Mg Capsule.Dr) 20 mg PO DAILY@0630 [facility] Last Admin: 08/22/24 05:10 Dose: 20 mg Documented By: GEOVANNA Oxycodone HCl (Oxycodone Hcl Immed Release 5 Mg Tablet) 5 mg PO Q4H PRN PRN Reason: Pain, Moderate(Pain Scale 4-6) Last Admin: 08/22/24 10:59 Dose: 5 mg Documented By: JUAN M Polyethylene Glycol (Polyethylene Glycol 3350 17 Gm Powd.Pack) 17 gm PO DAILY PRN PRN Reason: Constipation Quetiapine Fumarate (Quetiapine Fumarate 50 Mg Tablet) 50 mg PO TID PRN PRN Reason: Anxiety Last Admin: 08/20/24 23:17 Dose: 50 mg Documented By: GEOVANNA Sodium Chloride (0.9 % Sodium Chloride Flush 3 Ml Syringe) 3 ml IVFLUSH QSHIFT [facility] [place] Last Admin: 08/22/24 08:17 Dose: 3 ml Documented By: JUAN M Sodium Hypochlorite (Sodium Hypochlorite 0.5% 473 Ml Solution) 1 appl TOPICAL DAILY [facility] Last Admin: 08/22/24 08:17 Dose: 1 appl Documented By: JUAN M Topiramate (Topiramate 100 Mg Tablet) 100 mg PO BID [facility] Last Admin: 08/22/24 08:16 Dose: 100 mg Documented By: JUAN M Trazodone HCl (Trazodone Hcl 100 Mg Tablet) 100 mg PO BEDTIME PRN PRN Reason: Insomnia Last Admin: 08/21/24 20:54 Dose: 100 mg Documented By: GEOVANNA Vancomycin HCl (Vancomycin Hcl 125 Mg Capsule) 125 mg PO Q6H [facility] Last Admin: 08/22/24 10:56 Dose: 125 mg Documented By: JUAN M Warfarin Sodium (Warfarin Sodium 2.5 Mg Tablet) 2.5 mg PO DAILY@1800 [facility] Last Admin: 08/21/24 17:39 Dose: 2.5 mg Documented By: JAMIE Labs 08/20/24 13:17 08/20/24 13:17 Labs: Laboratory Results - last 24 hr 08/20/24 08/21/24 13:17 14:38 PT 26.2 H INR 2.2 H Hep Bs Antigen Negative Hep Bs Antibody REACTIVE Hep B Core Total Ab Reactive Hep B Core IgM Ab Cancelled Assessment and Plan (1) Clostridium difficile infection: Status: Acute (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 Pt was transferred to [place] due to concern for right atrial mass associated dialysis catheter tip, and pt is now being transferred back to [facility] [place] for continued treatment and STR placement. Acute C diff infection Stool studies positive for C diff on 08/18 no diarrhea overnight vancomycin 125 mg p.o. q.6 ID following; continue Vancomycin through the course of IV Abx and 2 days after. Infective endocarditis with ESBL Klebsiella Bacteremia complicated with with Right atrial mass complicated TTE at [place] showed severely dilated left atrium and left ventricle, LVEF 59%, adherent mass with mobile components of left atrium Culture positive for Klebsiella pneumoniae that has cephalosporin resistant gene positive and Pseudomonas colonization Pt is started on meropenem 500 mg IV, continue for total of 6 weeks to finish by September 18/2025 Follow up outpatient with Cardiology at [facility] after discharge for repeat TTE and possible outpatient cardiac MRI Dilated CBD CT of abdomen and pelvis on 08/07 [place] found distended gallbladder and distal CBD dilation of 1.1 cm and possible filling deficit and distal CBD concerning for choledocholithiasis GI recommendation was for MRCP at [place], however pt refused Pt currently asymptomatic without RUQ abdominal pain, no nausea or vomiting; has been eating and drinking without issue Currently no indication for MRCP, Consider GI consult and repeat imaging if pt develops symptoms Bilateral lower extremity wounds 2/2 Calciphylaxis Continue sodium thiosulfate 25 g IV 3 times weekly after dialysis Wound care consult Analgesics for pain management Pt has so far declined debridement General surgery consult, require extensive debridement with the assistance of Plastic surgery for wound coverage in his much more extensive that can be handled at our facility. Patient will be best treated at a tertiary care center with multimodality treatment including plastic surgery and inpatient wound care. Dr Pickens thinks it is better to be done as outpatient after finishing Bacteremia treatment ESRD On HD / Nephrology consult Last dialyzed on 08/18/2024 Follow up BMP Anemia of chronic disease S/p 3 units PRBCs at [place] Start Retacrit 8000 units x3 weekly post dialysis Follow CBC, transfuse as necessary HTN Continue amlodipine and clonidine Antiphospholipid syndrome Continue warfarin Daily INR with target range 2-3 GERD Continue PPI Polysubstance use disorder Continue methadone 100 mg daily and 95 mg at bedtime Mood disorder Continue hydroxyzine, trazodone, topiramate, and bupropion Full Code DVT Prophylaxis: On Warfarin Pt will require a hospitalization overnight for treatment of?acute C diff infection as well as continuing treatment for bacteremia and calciphylaxis. Pt will require hospital level care for administration of IV antibiotics, close monitoring of labs including CBC and electrolytes while awaiting placement Quality Stroke Does the patient have a stroke diagnosis?: No VTE Prior VTE?: No VTE Risk Level:: Medical - moderate - high VTE Device Contraindication: Treatment Not Indicated VTE Drug Contraindication: N/A - Med Ordered
--- NOTE | 2024-08-22 11:59 | HO.WOUND ---
Wound Consult: Follow up 43yr old female? [place] [facility] [place] - See progress notes and H&P for detailed history.? Wound consult follow up for Bilateral Legs and Posterior hip flank sites.? Patient refused assessment and dressing change at this time. The patient was educated on the importance of proper wound care and the concern for wound infection should the bilateral hip dressings not be changed. She reports understanding but reports the Dakins is not comfortable to her. We discussed the benefits of Dakins to the bilateral flank - we did discuss that given her discomfort we could switch to Wet to dry dressing changes and see how that works however after discussion and educating the patient on my concerns she was agreeable to trying the Dakins again. However she was not agreeable the changes at the time of my consult - direct care team will perform today and I will attempt assessment tomorrow. She requests the lower legs be changed every other day. This is agreeable to for now given they are stable black firm eschar with little to no drainage. Bilateral lower legs can be extended to every other day - she was happy with this. Will attempt follow up tomorrow. Agility pulsate bed ordered over the weekend for patient given skin concerns. No new topical recommendations made at this time except to extend bilateral lower leg dressings to every other day. Recommendations: 1. Turn and Reposition every 2 hours and as needed for patient comfort.? Use pillows or wedges to support off loading positions. 2. Off Load all bony prominences with use of pillows and heel boots if needed.? Apply Preventative foams where needed. ? 3. Monitor for incontinence and moisture control, use barrier creams when needed for prevention and treatment. 4. Provide adequate and supplemental nutrition.? 5. Continue low air loss mattress. 6. When applicable maintain blood glucose levels per Providers order. 7. Bilateral Lower Legs - Cleanse with NS moist gauze, dry well. Apply skin prep to periwound. Cover wounds with single layer of Xeroform followed by Gauze, ABD pad and wrap. Change every other day. 8. Posterior Hip and Flank area - Off load pressure with Q2hr turns and pillows. Cleanse with Dakins moist gauze, Apply thick barrier to wound edges, apply Dakins moist gauze to wound beds, cover with dry gauze, ABD pads. Change daily. 9. Bilateral Ischium and coccyx - Apply skin prep, cover with foam dressing. Change every 5 days and PRN. 10. Perineal - Apply antifungal per provider order. Recommend follow up out patient Wound Clinic at [address] [place] [id number] and to call for an appointment at time of discharge. [phone].? day. 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 TT to provider. Left Leg Right Leg Right Medial Leg - with small area of moist yellow slough Bilateral Legs Etiology: ?Unclear Etiology Wound Bed: mostly dry stable necrotic eschar small areas of moist lifted eschar reveals yellow slough Drainage / Odor: small amount of ten drainage Edges: ? irregular and rolled Rekha wound: ? swelling noted Pain: extreme pain reported Goals of Treatment: ? request for general surgery to assess - dry dressing vs xeroform to keep eschar stable and intact for autolytic debridement Right Side Left Side Posterior Hip Flank area Etiology: ?Unclear Etiology Wound Bed: various stages of necrotic slough Drainage / Odor: yellow corey green blue drainage indicative of pseudomonas Edges: ? irregular and atypical Rekha wound: ? No Induration or Warmth noted Pain: extreme pain reported Goals of Treatment: ?Dakins wet to moist dressing and request for general surgery to assess Recommendations: 1. Turn and Reposition every 2 hours and as needed for patient comfort.? Use pillows or wedges to support off loading positions. 2. Off Load all bony prominences with use of pillows and heel boots if needed.? Apply Preventative foams where needed. ? 3. Monitor for incontinence and moisture control, use barrier creams when needed for prevention and treatment. 4. Provide adequate and supplemental nutrition.? 5. Continue low air loss mattress. 6. When applicable maintain blood glucose levels per Providers order. 7. Bilateral Lower Legs and - Cleanse with Ns moist gauze, dry well. Apply skin prep to periwound. Cover wounds with single layer of Xeroform followed by Gauze, ABD pad and wrap. May use foam dressing to posterior hip/ flank to aid in pressure redistribution. 8. Posterior Hip and Flank area - Off load pressure with Q2hr turns and pillows. Cleanse with Dakins moist gauze, Apply skin barrier to wound edges, apply Dakins moist gauze to wound beds, cover with dry gauze, ABD pads. Change daily. 9. Bilateral Ischium and coccyx - Apply skin prep, cover with foam dressing. Change every 5 days and PRN. 10. Perineal - Apply antifungal per provider order. Recommend follow up out patient Wound Clinic at [address] [place] [phone] and to call for an appointment at time of discharge. [phone].? Re-consult wound care Nurse for wound deterioration or wound changes.
--- NOTE | 2024-08-22 12:36 | MHC.CLN ---
NUTRITION DIET=REGULAR. ENSURE MAX BID TO PROMOTE WOUND HEALING. SUPPLEMENT PROVIDES 300 KCALS, 60 G PROTEIN. PO INTAKE VARIABLE, 25-100%. SKIN WITH MULTIPLE WOUNDS. REFER TO WOUND RN NOTE 08/19. STAGE III PI TO L ISCHIUM AND STAGE II PI TO R ISCHIUM. OTHER NECROTIC AREAS NOTED. PATIENT WITH ESRD ON HEMODIALYSIS. FOLLOW FOR PO INTAKE AND SKIN INTEGRITY.
--- NOTE | 2024-08-22 13:00 | MHC.CM.PN ---
Per MD rounds no dc today. Final cultures are still pending. PT rec STR. Patient refuses to go to a facility. DP Home new [facility] for wound care. She will resume [facility] services. She will return to HD @ [facility] //Thu. She will receive IV ABX @ [facility]. She will transport via BLS.
[2024-08-22 13:31] VITALS: BP 129/86; PULSE 84; O2SAT 97
[2024-08-22 15:06] VITALS: BP 154/97; PULSE 81; RESP 16; TEMP 37.1; O2SAT 93
[2024-08-22] MEDS: Warfarin Sodium 2.5 MG TABLET PO (18:05)
--- NOTE | 2024-08-22 18:20 | PC.NURSE ---
Changed patient's dressings to BL lower extremities with xerform and abd pads applied. Wound base necrotic and wound edges open with slough and serosanguanous drainage. Dressing to Right hip changed with dakins on gauze applied to wound base and abd pads over. Wound base covered with slough and purelent drainage noted. Patient moderately tolerated dressing changes with more complaints of pain during repositioning. Pillows applied to BL hips and patient refused any further dressing changes to Lt hip and BL ischium.
[2024-08-22] MEDS: Acetaminophen 325 MG TABLET 650 MG PO (18:40)
[2024-08-22 19:05] VITALS: BP 161/94; PULSE 91; RESP 18; TEMP 37.3; O2SAT 95
[2024-08-22] MEDS: methADONE HCl 20 MG/2 ML ORAL.CONC 95 MG PO (20:49)
[2024-08-22] MEDS: cloNIDine HCL 0.2 MG TABLET PO (20:52)
[2024-08-22] MEDS: Doxepin HCl 10 MG CAPSULE PO (20:54)
[2024-08-22 23:21] VITALS: RESP 18
[2024-08-23 03:25] VITALS: BP 164/79; PULSE 85; RESP 18; TEMP 36.9; O2SAT 94
[2024-08-23] MEDS: vancomycin HCL 125 MG CAPSULE PO ×3 (05:39→22:05)
[2024-08-23] MEDS: Omeprazole 20 MG CAPSULE.DR PO (05:39)
[2024-08-23 08:00] VITALS: BP 153/88; PULSE 88; RESP 18; TEMP 37.3; O2SAT 92
[2024-08-23] MEDS: amLODIPine Besylate 10 MG TABLET PO (08:41)
[2024-08-23] MEDS: Acetaminophen 325 MG TABLET 650 MG PO (08:41)
[2024-08-23] MEDS: buPROPion HCl XL 300 MG TAB.ER.24H PO (08:41)
[2024-08-23] MEDS: Cyanocobalamin (Vitamin B-12) 100 MCG TABLET PO (08:41)
[2024-08-23] MEDS: Topiramate 100 MG TABLET PO ×2 (08:41→20:24)
[2024-08-23] MEDS: methADONE HCl 20 MG/2 ML ORAL.CONC 100 MG PO (08:41)
[2024-08-23] MEDS: Multivitamin TABLET 1 TAB PO (08:41)
[2024-08-23] MEDS: Gabapentin 600 MG TABLET PO ×2 (08:42→20:24)
[2024-08-23] MEDS: 0.9 % Sodium Chloride Flush 3 ML SYRINGE IVFLUSH ×3 (08:44→20:25)
[2024-08-23 09:56] LABS: INTERNATIONAL NORM RATIO 2.5 (0.9-1.1)
[2024-08-23] MEDS: oxyCODONE HCl Immed Release 5 MG TABLET PO ×3 (11:02→20:25)
--- NOTE | 2024-08-23 12:09 | P.PNIM_ITS ---
Subjective Subjective Date of Service: 08/23/24 Interval History: Seen and evaluated this morning reporting feeling better overall, ambulating no more diarrhea overnight pain under fair control no other events Review of Systems Review of Systems: Yes all other systems are reviewed and are negative Physical Exam 2 Vital Signs: Vital Signs: Last Vital Signs Temp 99.1 F 08/23/24 08:00 Pulse 88 08/23/24 08:00 Resp 18 08/23/24 08:00 BP 153/88 H 08/23/24 08:00 Pulse Ox 92 08/23/24 08:00 O2 Del Method Nasal Cannula 08/23/24 08:00 O2 Flow Rate 2.0 08/23/24 08:00 BMI result Body Mass Index 27.4 Const: Other: Constitutional : Awake, interactive, frail looking, not in distress Neck : Normal inspection, Supple Cardiovascular : RRR, no JVP, no lower extremity edema Respiratory : good bilateral air entry, no crackles, wheezes or rhonchi, on O2 supplement Gastrointestinal: soft, lax, Normal bowel sounds, Non tender Skin : Warm, Dry, bilateral lower extremities eschar Neurological : Alert & oriented x3, No focal deficit Objective Data Active Medications Acetaminophen (Acetaminophen 325 Mg Tablet) 650 mg PO Q6H PRN PRN Reason: Pain, Mild 1-3,fever,headache Last Admin: 08/23/24 08:41 Dose: 650 mg Documented By: ARIS Albuterol Sulfate (Albuterol Sulfate 90 Mcg 8 Gm Inhaler) 2 puff INHALE RQ4H PRN PRN Reason: Wheezing Amlodipine Besylate (Amlodipine Besylate 10 Mg Tablet) 10 mg PO DAILY [facility]; Protocol Last Admin: 08/23/24 08:41 Dose: 10 mg Documented By: ARIS Bupropion HCl (Bupropion Hcl Xl 300 Mg Tab.Er.24h) 300 mg PO DAILY [facility] Last Admin: 08/23/24 08:41 Dose: 300 mg Documented By: ARIS Clonidine HCl (Clonidine Hcl 0.2 Mg Tablet) 0.2 mg PO BEDTIME [facility]; Protocol Last Admin: 08/22/24 20:52 Dose: 0.2 mg Documented By: JAN Cyanocobalamin (Cyanocobalamin (Vitamin B-12) 100 Mcg Tablet) 100 mcg PO DAILY [facility] Last Admin: 08/23/24 08:41 Dose: 100 mcg Documented By: ARIS Doxepin HCl (Doxepin Hcl 10 Mg Capsule) 10 mg PO BEDTIME [facility] Last Admin: 08/22/24 20:54 Dose: 10 mg Documented By: JAN Epoetin Devin-epbx (Epoetin Devin-Epbx 10,000 Unit/Ml Vial) 8,000 unit IVPUSH TuThSa@1800 [facility] Last Admin: 08/20/24 17:38 Dose: 8,000 unit Documented By: JAMIE Gabapentin (Gabapentin 600 Mg Tablet) 600 mg PO BID [facility] Last Admin: 08/23/24 08:42 Dose: 600 mg Documented By: ARIS Heparin Sodium (Porcine) (Heparin Sodium,Porcine 5,000 Unit/Ml Vial) 5,000 unit INTRACATH TUTHSA@1645 [facility] Last Admin: 08/20/24 16:58 Dose: Not Given Documented By: JAMIE Non-Admin Reason: to be given in HD Hydroxyzine HCl (Hydroxyzine Hcl 50 Mg Tablet) 50 mg PO TID PRN PRN Reason: Anxiety Last Admin: 08/19/24 10:58 Dose: 50 mg Documented By: SKY Sodium Thiosulfate 12.5 gm/ (Sodium Chloride) 200 mls @ 400 mls/hr IV Q30M [facility] Stop: 08/18/24 23:14 Magnesium Hydroxide (Milk Of Magnesia 30 Ml Oral.Susp) 30 ml PO DAILY PRN PRN Reason: Constipation Melatonin (Melatonin 3 Mg Tablet) 6 mg PO BEDTIME PRN PRN Reason: Insomnia Meropenem (Meropenem 500 Mg Vial) 500 mg IV TUTHSA [facility] Last Admin: 08/20/24 22:00 Dose: 500 mg Documented By: GEOVANNA Methadone HCl (Methadone Hcl 20 Mg/2 Ml Oral.Conc) 100 mg PO DAILY [facility] Last Admin: 08/23/24 08:41 Dose: 100 mg Documented By: ARIS Co-signed By: OSITO Methadone HCl (Methadone Hcl 20 Mg/2 Ml Oral.Conc) 95 mg PO BEDTIME [facility] Last Admin: 08/22/24 20:49 Dose: 95 mg Documented By: JAN Co-signed By: GRANT Multivitamins/Vitamin C (Multivitamin Tablet) 1 tab PO DAILY [facility] Last Admin: 08/23/24 08:41 Dose: 1 tab Documented By: ARIS Non-Formulary Medication (Lumateperone [Caplyta]) 42 mg PO DAILY [facility] Nystatin (Nystatin Oral Susp 500,000 Unit/5 Ml Oral.Susp) 100,000 unit PO DAILY PRN; Protocol PRN Reason: FLARES Nystatin (Nystatin Powder 15 Gm Bottle) 1 appl TOPICAL BID [facility]; Protocol Last Admin: 08/22/24 21:00 Dose: 1 appl Documented By: JAN Omeprazole (Omeprazole 20 Mg Capsule.Dr) 20 mg PO DAILY@0630 [facility] Last Admin: 08/23/24 05:39 Dose: 20 mg Documented By: JAN Oxycodone HCl (Oxycodone Hcl Immed Release 5 Mg Tablet) 5 mg PO Q4H PRN PRN Reason: Pain, Moderate(Pain Scale 4-6) Last Admin: 08/23/24 11:02 Dose: 5 mg Documented By: ARIS Polyethylene Glycol (Polyethylene Glycol 3350 17 Gm Powd.Pack) 17 gm PO DAILY PRN PRN Reason: Constipation Quetiapine Fumarate (Quetiapine Fumarate 50 Mg Tablet) 50 mg PO TID PRN PRN Reason: Anxiety Last Admin: 08/20/24 23:17 Dose: 50 mg Documented By: GEOVANNA Sodium Chloride (0.9 % Sodium Chloride Flush 3 Ml Syringe) 3 ml IVFLUSH QSHIFT [facility] Last Admin: 08/23/24 08:44 Dose: 3 ml Documented By: ARIS Sodium Hypochlorite (Sodium Hypochlorite 0.5% 473 Ml Solution) 1 appl TOPICAL DAILY [facility] Last Admin: 08/22/24 08:17 Dose: 1 appl Documented By: JUAN M Topiramate (Topiramate 100 Mg Tablet) 100 mg PO BID [facility] Last Admin: 08/23/24 08:41 Dose: 100 mg Documented By: ARIS Trazodone HCl (Trazodone Hcl 100 Mg Tablet) 100 mg PO BEDTIME PRN PRN Reason: Insomnia Last Admin: 08/21/24 20:54 Dose: 100 mg Documented By: GEOVANNA Vancomycin HCl (Vancomycin Hcl 125 Mg Capsule) 125 mg PO Q6H [facility] Last Admin: 08/23/24 11:50 Dose: Not Given Documented By: ARIS Non-Admin Reason: Off unit: Dialysis Warfarin Sodium (Warfarin Sodium 2.5 Mg Tablet) 2.5 mg PO DAILY@1800 [facility] Last Admin: 08/22/24 18:05 Dose: 2.5 mg Documented By: JUAN M Labs 08/20/24 13:17 08/20/24 13:17 Labs: Laboratory Results - last 24 hr 08/23/24 09:37 PT 29.0 H INR 2.5 H Assessment and Plan (1) Clostridium difficile infection: Status: Acute (2) Calciphylaxis: Status: Acute (3) 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 Pt was transferred to [place] due to concern for right atrial mass associated dialysis catheter tip, and pt is now being transferred back to [facility] for continued treatment and STR placement. Acute C diff infection Stool studies positive for C diff on 08/18 no diarrhea overnight vancomycin 125 mg p.o. q.6 ID following; continue Vancomycin through the course of IV Abx and 2 days after. Infective endocarditis with ESBL Klebsiella Bacteremia complicated with with Right atrial mass complicated TTE at [place] showed severely dilated left atrium and left ventricle, LVEF 59%, adherent mass with mobile components of left atrium Culture positive for Klebsiella pneumoniae that has cephalosporin resistant gene positive and Pseudomonas colonization Pt is started on meropenem 500 mg IV, continue for total of 6 weeks to finish by September 18/2025 Follow up outpatient with Cardiology at [facility] after discharge for repeat TTE and possible outpatient cardiac MRI Unable to discharge to home as HD center does not cover Meropenem Options either SNF or Home VNA to deliver Meropenem after dialysis. Dilated CBD CT of abdomen and pelvis on 08/07 [place] found distended gallbladder and distal CBD dilation of 1.1 cm and possible filling deficit and distal CBD concerning for choledocholithiasis GI recommendation was for MRCP at [place], however pt refused Pt currently asymptomatic without RUQ abdominal pain, no nausea or vomiting; has been eating and drinking without issue Currently no indication for MRCP, Consider GI consult and repeat imaging if pt develops symptoms Bilateral lower extremity wounds 2/2 Calciphylaxis Continue sodium thiosulfate 25 g IV 3 times weekly after dialysis Wound care consult Analgesics for pain management Pt has so far declined debridement General surgery consult, require extensive debridement with the assistance of Plastic surgery for wound coverage in his much more extensive that can be handled at our facility. Patient will be best treated at a tertiary care center with multimodality treatment including plastic surgery and inpatient wound care. Dr Pickens thinks it is better to be done as outpatient after finishing Bacteremia treatment ESRD On HD / Nephrology consult Last dialyzed on 08/18/2024 Follow up BMP Anemia of chronic disease S/p 3 units PRBCs at [place] Start Retacrit 8000 units x3 weekly post dialysis Follow CBC, transfuse as necessary HTN Continue amlodipine and clonidine Antiphospholipid syndrome Continue warfarin Daily INR with target range 2-3 GERD Continue PPI Polysubstance use disorder Continue methadone 100 mg daily and 95 mg at bedtime Mood disorder Continue hydroxyzine, trazodone, topiramate, and bupropion Full Code DVT Prophylaxis: On Warfarin Pt will require a hospitalization overnight for treatment of?acute C diff infection as well as continuing treatment for bacteremia and calciphylaxis. Pt will require hospital level care for administration of IV antibiotics, close monitoring of labs including CBC and electrolytes while awaiting placement Quality Stroke Does the patient have a stroke diagnosis?: No VTE Prior VTE?: No VTE Risk Level:: Medical - moderate - high VTE Device Contraindication: Treatment Not Indicated VTE Drug Contraindication: N/A - Med Ordered
--- NOTE | 2024-08-23 13:20 | MHC.CM.PN ---
Patient will not be able to receive Meropenum @ HD. PT recommends STR. Patient isrefusing STR. Option care referred for IV ABX @ Home. After review of EMR patient can not dc to home with IV ABX. Toxicology + 07/30/24. Referral have been sent to SNFs with HD on site. She will transport via BLS @ [place].
--- NOTE | 2024-08-23 13:24 | P.CDIM_ITS ---
PROVIDER RESPONSE TEXT: To clarify, the appropriate diagnosis supported by the clinical indicators: Pressure Injury Stage 3 left Ischium: suspected QUERY TEXT: PHYSICIAN'S DOCUMENTATION REQUEST Date of Query: 08/22/2024 12:26 PM EDT Patient Name: Melita Butler Admit Date: 08/18/2024 Dear Aaron Serrano MD, A review of the medical record indicates additional documentation may be needed. Please review below and update the documentation accordingly. Clinical Indicators: Wound care notes 08/22/24 - Pressure injury Stage 3 left Ischium Scant serous and serosang drainage noted. Various stages left full thickness tissue loss with pink red wound bed. Foam dressing. Based on the above, could you please provide further information regarding the ulcer/wound/injury: Pressure Injury Stage 3 left Ischium suspected, possible, probable, cannot rule out Other specified if known Other (explain) Clinically unable to determine (explain) Thank you, Sharon Amador, CCS, CDIS Use of terms such as suspected, likely, concern for, or probable (associated with a specific diagnosi s that is being evaluated, monitored, or treated as if it exists) are acceptable and can be coded in the inpatient se tting, when documented at the time of discharge. Please use your independent medical judgment in providing your response. THIS QUERY IS PART OF THE PERMANENT MEDICAL RECORD
--- NOTE | 2024-08-23 13:24 | P.CDIM_ITS ---
PROVIDER RESPONSE TEXT: To clarify, the appropriate diagnosis supported by the clinical indicators: Pressure Injury Stage 2 right ischium: confirmed QUERY TEXT: PHYSICIAN'S DOCUMENTATION REQUEST Date of Query: 08/22/2024 12:30 PM EDT Patient Name: Melita Butler Admit Date: 08/18/2024 Dear Aaron Serrano MD, A review of the medical record indicates additional documentation may be needed. Please review below and update the documentation accordingly. Clinical Indicators: Wound care notes 08/22/24 - Pressure injury Stage 2 Right ischium. Right side with recently resurfaced tissue - no induration noted. Foam dressing. Based on the above, could you please provide further information regarding the ulcer/wound/injury: Pressure Injury Stage 2 right ischium possible, probable, suspected etc. Other specified Other (explain) Clinically unable to determine (explain) Thank you, Sharon Amador, CCS, CDIS Use of terms such as suspected, likely, concern for, or probable (associated with a specific diagnosi s that is being evaluated, monitored, or treated as if it exists) are acceptable and can be coded in the inpatient se tting, when documented at the time of discharge. Please use your independent medical judgment in providing your response. THIS QUERY IS PART OF THE PERMANENT MEDICAL RECORD
[2024-08-23] MEDS: SODIUM THIOSULFATE IV ×2 (14:49→15:40)
[2024-08-23] MEDS: SODIUM CHLORIDE 0.9% IV ×2 (14:49→15:40)
[2024-08-23 15:34] VITALS: BP 146/87; PULSE 87; RESP 18; TEMP 37.1; O2SAT 100
[2024-08-23] MEDS: Warfarin Sodium 2.5 MG TABLET PO (17:27)
[2024-08-23] MEDS: Epoetin Alfa-epbx 10,000 UNIT/ML VIAL 8000 UNIT IVPUSH (17:27)
--- NOTE | 2024-08-23 17:37 | PC.NURSE ---
pt refused dressing change, pt educated on importance of dressing changes for wound assessment and clean dressing for wounds. pt still refused. Dr Maggie salazar.
--- NOTE | 2024-08-23 19:14 | W.PM.DNNEP ---
Subjective Subjective Date of Service: 08/23/24 This patient was seen during dialysis. Interval history: Seen and evaluated this morning reporting feeling better overall, ambulating no more diarrhea overnight pain under fair control no other events Physical Exam Vital Signs: Vital Signs: Last Vital Signs Temp 98.7 F 08/23/24 15:34 Pulse 87 08/23/24 15:34 Resp 18 08/23/24 15:34 BP 146/87 H 08/23/24 15:34 Pulse Ox 100 08/23/24 15:34 O2 Del Method Room Air 08/23/24 15:34 O2 Flow Rate 2.0 08/23/24 08:00 BMI result Body Mass Index 27.4 Const: General: comfortable and no acute distress Orientation/consciousness: patient oriented x3 HEENT: Head: Yes normocephalic Mouth: Normal oral and palatal mucosa present Eyes: EOM: EOMs intact bilaterally Neck: Neck: Yes supple Resp: Auscultation: clear to auscultation bilaterally Cardio: Jugular venous distension: no JVD Rate: regular rate GI: Palpation (GI): Soft to palpation Auscultation: normal bowel sounds Neuro: General: patient oriented x3 and moves all extremities Assessment & Plan Assessment and plan (1) End stage renal disease on dialysis: Status: Acute Plan Usually gets HD on TTS Has a functioning HD catheter Na thiosulphate TTS as ordered( 12.5 Gram) No Vitamin D , calcitriol or ca based binders Phos binders with meals Antibiotics as ordered. Needs cards F/U Await placement Shall follow along Time Spent With Patient Time: Total time managing care of this patient today ____ minutes. Procedures Date of Service Date of Service: 08/23/24
[2024-08-23 19:17] VITALS: BP 146/85; PULSE 82; RESP 16; TEMP 37.1; O2SAT 95
[2024-08-23] MEDS: cloNIDine HCL 0.2 MG TABLET PO (20:24)
[2024-08-23] MEDS: Doxepin HCl 10 MG CAPSULE PO (20:24)
[2024-08-23] MEDS: Nystatin Powder 15 GM BOTTLE 1 APPL TOPICAL (20:27)
[2024-08-23] MEDS: methADONE HCl 20 MG/2 ML ORAL.CONC 95 MG PO (21:53)
[2024-08-23] MEDS: Meropenem 500 MG VIAL IV (22:19)
[2024-08-24 02:59] VITALS: BP 159/78; PULSE 88; RESP 16; TEMP 37.2; O2SAT 93
[2024-08-24] MEDS: vancomycin HCL 125 MG CAPSULE PO ×4 (04:25→22:30)
[2024-08-24] MEDS: Omeprazole 20 MG CAPSULE.DR PO (06:34)
[2024-08-24 07:11] VITALS: BP 144/85; PULSE 84; RESP 17; TEMP 36.7; O2SAT 97
[2024-08-24] MEDS: amLODIPine Besylate 10 MG TABLET PO (08:48)
[2024-08-24] MEDS: Gabapentin 600 MG TABLET PO ×2 (08:48→20:23)
[2024-08-24] MEDS: methADONE HCl 20 MG/2 ML ORAL.CONC 100 MG PO (08:48)
[2024-08-24] MEDS: Topiramate 100 MG TABLET PO ×2 (08:48→20:23)
[2024-08-24] MEDS: Cyanocobalamin (Vitamin B-12) 100 MCG TABLET PO (08:48)
[2024-08-24] MEDS: buPROPion HCl XL 300 MG TAB.ER.24H PO (08:48)
[2024-08-24] MEDS: Multivitamin TABLET 1 TAB PO (08:48)
[2024-08-24] MEDS: Nystatin Powder 15 GM BOTTLE 1 APPL TOPICAL (08:49)
[2024-08-24] MEDS: Sodium Hypochlorite 0.5% 473 ML SOLUTION 1 APPL TOPICAL (08:49)
[2024-08-24 09:40] LABS: INTERNATIONAL NORM RATIO 2.7 (0.9-1.1); Prothrombin Time 31.4 SEC (10.9-12.4)
--- NOTE | 2024-08-24 10:12 | P.PNIM_ITS ---
Subjective Subjective Date of Service: 08/24/24 Interval History: diarrhea resolved Physical Exam 2 Vital Signs: Vital Signs: Last Vital Signs Temp 98.1 F 08/24/24 07:11 Pulse 84 08/24/24 07:11 Resp 17 08/24/24 07:11 BP 144/85 H 08/24/24 07:11 Pulse Ox 97 08/24/24 07:11 O2 Del Method Nasal Cannula 08/24/24 07:11 O2 Flow Rate 2 08/24/24 07:11 BMI result Body Mass Index 27.4 Alert oriented x3, ill-appearing, no acute distress, necrotic wounds unchanged, lungs are clear, LUE swelling Objective Data Active Medications Acetaminophen (Acetaminophen 325 Mg Tablet) 650 mg PO Q6H PRN PRN Reason: Pain, Mild 1-3,fever,headache Last Admin: 08/23/24 08:41 Dose: 650 mg Documented By: ARIS Albuterol Sulfate (Albuterol Sulfate 90 Mcg 8 Gm Inhaler) 2 puff INHALE RQ4H PRN PRN Reason: Wheezing Amlodipine Besylate (Amlodipine Besylate 10 Mg Tablet) 10 mg PO DAILY [facility]; Protocol Last Admin: 08/24/24 08:48 Dose: 10 mg Documented By: PUNEET Bupropion HCl (Bupropion Hcl Xl 300 Mg Tab.Er.24h) 300 mg PO DAILY [facility] Last Admin: 08/24/24 08:48 Dose: 300 mg Documented By: PUNEET Clonidine HCl (Clonidine Hcl 0.2 Mg Tablet) 0.2 mg PO BEDTIME [facility]; Protocol Last Admin: 08/23/24 20:24 Dose: 0.2 mg Documented By: JAN Cyanocobalamin (Cyanocobalamin (Vitamin B-12) 100 Mcg Tablet) 100 mcg PO DAILY [facility] Last Admin: 08/24/24 08:48 Dose: 100 mcg Documented By: PUNEET Doxepin HCl (Doxepin Hcl 10 Mg Capsule) 10 mg PO BEDTIME [facility] Last Admin: 08/23/24 20:24 Dose: 10 mg Documented By: JAN Epoetin Devin-epbx (Epoetin Devin-Epbx 10,000 Unit/Ml Vial) 8,000 unit IVPUSH TuThSa@1800 [facility] Last Admin: 08/23/24 17:27 Dose: 8,000 unit Documented By: ARIS Gabapentin (Gabapentin 600 Mg Tablet) 600 mg PO BID [facility] Last Admin: 08/24/24 08:48 Dose: 600 mg Documented By: PUNEET Heparin Sodium (Porcine) (Heparin Sodium,Porcine 5,000 Unit/Ml Vial) 5,000 unit INTRACATH [facility]@1645 [facility] Last Admin: 08/23/24 16:09 Dose: Not Given Documented By: ARIS Non-Admin Reason: Dialysis Hydroxyzine HCl (Hydroxyzine Hcl 50 Mg Tablet) 50 mg PO TID PRN PRN Reason: Anxiety Last Admin: 08/19/24 10:58 Dose: 50 mg Documented By: GRAZJAVIER Sodium Thiosulfate 12.5 gm/ (Sodium Chloride) 200 mls @ 400 mls/hr IV Q30M [facility] Stop: 08/18/24 23:14 Magnesium Hydroxide (Milk Of Magnesia 30 Ml Oral.Susp) 30 ml PO DAILY PRN PRN Reason: Constipation Melatonin (Melatonin 3 Mg Tablet) 6 mg PO BEDTIME PRN PRN Reason: Insomnia Meropenem (Meropenem 500 Mg Vial) 500 mg IV TUTA [facility] Last Admin: 08/23/24 22:19 Dose: 500 mg Documented By: JAN Methadone HCl (Methadone Hcl 20 Mg/2 Ml Oral.Conc) 100 mg PO DAILY [facility] Last Admin: 08/24/24 08:48 Dose: 100 mg Documented By: PUNEET Co-signed By: GEETHA Methadone HCl (Methadone Hcl 20 Mg/2 Ml Oral.Conc) 95 mg PO BEDTIME [facility] Last Admin: 08/23/24 21:53 Dose: 95 mg Documented By: JAN Co-signed By: ELI Multivitamins/Vitamin C (Multivitamin Tablet) 1 tab PO DAILY [facility] Last Admin: 08/24/24 08:48 Dose: 1 tab Documented By: PUNEET Non-Formulary Medication (Lumateperone [Caplyta]) 42 mg PO DAILY [facility] Nystatin (Nystatin Oral Susp 500,000 Unit/5 Ml Oral.Susp) 100,000 unit PO DAILY PRN; Protocol PRN Reason: FLARES Nystatin (Nystatin Powder 15 Gm Bottle) 1 appl TOPICAL BID [facility]; Protocol Last Admin: 08/24/24 08:49 Dose: 1 appl Documented By: PUNEET Omeprazole (Omeprazole 20 Mg Capsule.) 20 mg PO DAILY@0630 [facility] Last Admin: 08/24/24 06:34 Dose: 20 mg Documented By: JAN Oxycodone HCl (Oxycodone Hcl Immed Release 5 Mg Tablet) 5 mg PO Q4H PRN PRN Reason: Pain, Moderate(Pain Scale 4-6) Last Admin: 08/23/24 20:25 Dose: 5 mg Documented By: JAN Polyethylene Glycol (Polyethylene Glycol 3350 17 Gm Powd.Pack) 17 gm PO DAILY PRN PRN Reason: Constipation Quetiapine Fumarate (Quetiapine Fumarate 50 Mg Tablet) 50 mg PO TID PRN PRN Reason: Anxiety Last Admin: 08/20/24 23:17 Dose: 50 mg Documented By: GEOVANNA Sodium Chloride (0.9 % Sodium Chloride Flush 3 Ml Syringe) 3 ml IVFLUSH QSHIFT [facility] Last Admin: 08/24/24 07:12 Dose: Not Given Documented By: PUNEET Non-Admin Reason: Previously Administered Sodium Hypochlorite (Sodium Hypochlorite 0.5% 473 Ml Solution) 1 appl TOPICAL DAILY [facility] Last Admin: 08/24/24 08:49 Dose: 1 appl Documented By: PUNEET Topiramate (Topiramate 100 Mg Tablet) 100 mg PO BID [facility] Last Admin: 08/24/24 08:48 Dose: 100 mg Documented By: PUNEET Trazodone HCl (Trazodone Hcl 100 Mg Tablet) 100 mg PO BEDTIME PRN PRN Reason: Insomnia Last Admin: 08/21/24 20:54 Dose: 100 mg Documented By: GEOVANNA Vancomycin HCl (Vancomycin Hcl 125 Mg Capsule) 125 mg PO Q6H [facility] Last Admin: 08/24/24 04:25 Dose: 125 mg Documented By: JAN Warfarin Sodium (Warfarin Sodium 2.5 Mg Tablet) 2.5 mg PO DAILY@1800 [facility] Last Admin: 08/23/24 17:27 Dose: 2.5 mg Documented By: ARIS Labs 08/20/24 13:17 08/20/24 13:17 Labs: Laboratory Results - last 24 hr 08/24/24 09:17 PT 31.4 H INR 2.7 H Microbiology Microbiology Results: Microbiology 08/18/24 19:34 Blood Culture - Final Blood - Venous No growth after 5 days. 08/18/24 19:34 Blood Culture - Final Blood - Venous No growth after 5 days. 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 Pt was transferred to [place] due to concern for right atrial mass associated dialysis catheter tip endocarditis vs thrombosus, pt transferred back to [facility] 08/18/24 for continued treatment and STR placement. Acute C diff infection Stool studies positive for C diff on 08/18 no diarrhea overnight vancomycin 125 mg p.o. q.6 ID following; continue po Vancomycin through the course of IV Abx and 2 days after. new lue swelling check doppler Infective endocarditis with ESBL Klebsiella Bacteremia complicated with with Right atrial mass TTE at [place] showed severely dilated left atrium and left ventricle, LVEF 59%, adherent mass with mobile components of left atrium Culture positive for Klebsiella pneumoniae that has cephalosporin resistant gene positive and Pseudomonas Pt started on meropenem 500 mg IV, continue for total of 6 weeks to finish by September 18, 2024 Follow up outpatient with [place]iology [place] [facility] [place] discharge for repeat TTE and possible outpatient cardiac MRI Unable to discharge to home as HD center does not cover Meropenem Dilated CBD CT of abdomen and pelvis on 08/07 [place] found distended gallbladder and distal CBD dilation of 1.1 cm and possible filling deficit and distal CBD concerning for choledocholithiasis GI recommendation was for MRCP at [place], however pt refused Pt currently asymptomatic without RUQ abdominal pain, no nausea or vomiting; has been eating and drinking without issue Currently no indication for MRCP, Consider GI consult and repeat imaging if pt develops symptoms Bilateral lower extremity wounds 2/2 Calciphylaxis Continue sodium thiosulfate 25 g IV 3 times weekly after dialysis Wound care consult Analgesics for pain management Pt has so far declined debridement General surgery consult, require extensive debridement with the assistance of Plastic surgery for wound coverage in his much more extensive that can be handled at our facility. Patient will be best treated at a tertiary care center with multimodality treatment including plastic surgery and inpatient wound care. Dr Pickens thinks it is better to be done as outpatient after finishing Bacteremia treatment ESRD On HD T//Thu Anemia of chronic disease [facility] dialysis Follow CBC, transfuse as necessary HTN Continue amlodipine and clonidine Antiphospholipid syndrome Continue warfarin Daily INR with target range 2-3 GERD Continue PPI Polysubstance use disorder Continue methadone 100 mg daily and 95 mg at bedtime Mood disorder Continue hydroxyzine, trazodone, topiramate, and bupropion Full Code DVT Prophylaxis: On Warfarin reason for continued hospitalization:lue swelling Quality Stroke Does the patient have a stroke diagnosis?: No VTE Prior VTE?: No VTE Risk Level:: Medical - moderate - high VTE Device Contraindication: Treatment Not Indicated VTE Drug Contraindication: N/A - Med Ordered
[2024-08-24] MEDS: oxyCODONE HCl Immed Release 5 MG TABLET PO ×3 (10:34→19:56)
[2024-08-24] MEDS: Acetaminophen 325 MG TABLET 650 MG PO (10:35)
--- NOTE | 2024-08-24 11:12 | MHC.CM.PN ---
DC plan: SNF for STR and abx. No bed offers at this time. Referral expanded. Patient may refused. CM will continue to follow.
--- NOTE | 2024-08-24 12:06 | MHC.CLN ---
F/U DIET=REGULAR. PO INTAKE VARIABLE, 0-100%. REQUESTING STRAWBERRY ENSURE. CHANGED SUPPLEMENT TO ENSURE TID (1050 KCALS, 60 G PROTEIN). SKIN WITH MULTIPLE WOUNDS. STAGE III PI TO L ISCHIUM AND STAGE II PI TO R ISCHIUM. OTHER NECROTIC AREAS NOTED. PATIENT WITH ESRD ON HEMODIALYSIS. SUPPLEMENT TO PROMOTE NUTRITIONAL INTAKE/WOUND HEALING. FOLLOW FOR PO INTAKE AND SKIN INTEGRITY.
--- NOTE | 2024-08-24 13:29 | PC.NURSE ---
Addendum entered by Pedro Grimes RN 08/24/24 15:01: All dressing changes performed this shift Original Note: pt c/o losing her voice and chest pain that radiates to her upper abd and to her back for approx 3 days. pt also c/o sleeping more frequently. informed.
[2024-08-24 15:26] VITALS: BP 160/99; PULSE 93; RESP 18; TEMP 36.7; O2SAT 92
[2024-08-24] MEDS: Warfarin Sodium 2.5 MG TABLET PO (17:48)
--- NOTE | 2024-08-24 18:43 | P.PNNP_ITS ---
Subjective Subjective Date of Service: 08/24/24 Interval history: Diarrhea resolved; Seen this AM. All recent data reviewed. D/W Hospitalist Physical Exam 2 Vital Signs: Vital Signs: Last Vital Signs Temp 98.1 F 08/24/24 15:26 Pulse 93 08/24/24 15:26 Resp 18 08/24/24 15:26 BP 160/99 H 08/24/24 15:26 Pulse Ox 92 08/24/24 15:26 O2 Del Method Nasal Cannula 08/24/24 07:11 O2 Flow Rate 2 08/24/24 07:11 BMI result Body Mass Index 27.4 Const: General: no acute distress Orientation/consciousness: patient oriented x3 Eyes: EOM: EOMs intact bilaterally Neck: Neck: Yes supple Resp: Auscultation: diminished lung sounds Cardio: Rate: regular rate GI: Palpation (GI): Soft to palpation Neuro: General: patient oriented x3 Objective Data Labs 08/20/24 13:17 08/20/24 13:17 Labs: Laboratory Results - last 24 hr 08/24/24 09:17 PT 31.4 H INR 2.7 H Microbiology Microbiology Results: Microbiology 08/18/24 19:34 Blood - Venous Blood Culture - Final No growth after 5 days. 08/18/24 19:34 Blood - Venous Blood Culture - Final No growth after 5 days. Procedures Date of Service Date of Service: 08/24/24 Assessment & Plan Assessment and plan (1) End stage renal disease on dialysis: Status: Acute Plan Usually gets HD on TTS Has a functioning HD catheter Na thiosulphate TTS as ordered No Vitamin D , calcitriol or ca based binders Phos binders with meals Procrit [id number] U 3 times a week TTS Antibiotics as ordered. Needs cards F/U Shall follow along Progress Note: Quality Stroke Does the patient have a stroke diagnosis?: No
[2024-08-24 19:29] VITALS: BP 178/92; PULSE 101; RESP 18; TEMP 36.7; O2SAT 93
[2024-08-24] MEDS: ondansetron HCL 4 MG/2 ML VIAL IVPUSH (19:53)
[2024-08-24 20:23] VITALS: BP 178/92
[2024-08-24] MEDS: Doxepin HCl 10 MG CAPSULE PO (20:23)
[2024-08-24] MEDS: cloNIDine HCL 0.2 MG TABLET PO (20:23)
[2024-08-24] MEDS: methADONE HCl 20 MG/2 ML ORAL.CONC 95 MG PO (20:24)
[2024-08-24 22:33] VITALS: BP 170/98
[2024-08-24] MEDS: 0.9 % Sodium Chloride Flush 3 ML SYRINGE IVFLUSH (22:42)
--- NOTE | 2024-08-24 23:42 | PC.NURSE ---
Addendum entered by Nia Tompkins RN 08/25/24 03:50: SKATES OPERATOR rechecked at 178/82 manually, Dr. Whitehead made aware Addendum entered by Nia Tompkins RN 08/25/24 02:40: Dr. Whitehead informed of rechecked BP: 178/90, one hour post med administration, no new orders given. Will recheck BP at 4am Original Note: pt reporting pain and nausea. Patients BP elevated at 178/94, HR: 101, Dr. Whitehead made aware new orders placed for zofran. Pain meds and zofran given, per pt it was effective, BP rechecked to be 170/98, HR: 97, pt is asymptomatic denies CP, at this time, resting quietly in bed with no apparent distress at this time. New orders placed per Dr. Whitehead.
[2024-08-25] VITALS (9 sets, daily range): BP systolic 150–178; BP diastolic 81–98; PULSE 86–93; RESP 16–18; TEMP 36.5–37.4; O2SAT 92–94
[2024-08-25] MEDS: hydrALAZINE HCl 20 MG/ML VIAL 5 MG IVPUSH ×2 (00:13→05:07)
[2024-08-25] MEDS: vancomycin HCL 125 MG CAPSULE PO ×4 (05:47→22:36)
[2024-08-25] MEDS: Omeprazole 20 MG CAPSULE.DR PO (05:47)
[2024-08-25 07:01] LABS: INTERNATIONAL NORM RATIO 2.8 (0.9-1.1); Prothrombin Time 32.4 SEC (10.9-12.4)
[2024-08-25 07:12] LABS: Anion Gap 20 (12-20); Blood Urea Nitrogen 36 mg/dL (9-16); Calcium 9.1 mg/dL (8.4-10.2); Carbon Dioxide 23 mmol/L (22-29); Chloride 101 mmol/L (96-108); Creatinine Clr Calc Pharmacy 20.7; Estimated Glomerular Filt Rate 13; Glucose Random 78 mg/dL (60-115); Potassium 4.7 mmol/L (3.3-5.1); Sodium 139 mmol/L (135-145)
[2024-08-25] MEDS: Cyanocobalamin (Vitamin B-12) 100 MCG TABLET PO (08:18)
[2024-08-25] MEDS: Topiramate 100 MG TABLET PO ×2 (08:18→20:06)
[2024-08-25] MEDS: buPROPion HCl XL 300 MG TAB.ER.24H PO (08:19)
[2024-08-25] MEDS: amLODIPine Besylate 10 MG TABLET PO (08:19)
[2024-08-25] MEDS: Gabapentin 600 MG TABLET PO ×2 (08:19→20:02)
[2024-08-25] MEDS: Multivitamin TABLET 1 TAB PO (08:19)
[2024-08-25] MEDS: methADONE HCl 20 MG/2 ML ORAL.CONC 100 MG PO (08:19)
[2024-08-25] MEDS: oxyCODONE HCl Immed Release 5 MG TABLET PO ×4 (08:24→22:42)
[2024-08-25 10:40] LABS: Hemoglobin 8.4 g/dl (12.0-16.0); Mean Corpuscular HGB Conc 31.1 g/dl (31.0-35.0); Mean Corpuscular Hemoglobin 27.9 pg (27.0-33.0); Mean Corpuscular Volume 89.7 fL (80.0-98.0); Mean Platelet Volume 10.7 fL (9.4-12.3); NRBC Pct Auto 0.2 /100WBC (0.0-0.2); Platelet Count 375 X10*3/uL (160-400); Red Blood Count 3.01 X10*6/uL (4.20-5.50); Red Cell Distribution Width 20.4 % (11.0-16.0); White Blood Count 12.9 X10*3/uL (4.8-10.8)
--- NOTE | 2024-08-25 11:24 | HO.PM.IMPN ---
Subjective Subjective Date of Service: 08/25/24 Interval History: diarrhea resolved Physical Exam Vital Signs: Vital Signs: Last Vital Signs Temp 98.2 F 08/25/24 07:03 Pulse 88 08/25/24 07:03 Resp 16 08/25/24 07:03 BP 152/90 H 08/25/24 07:03 Pulse Ox 94 08/25/24 07:03 O2 Del Method Room Air 08/25/24 07:03 O2 Flow Rate 2 08/25/24 03:32 BMI result Body Mass Index 27.4 Const: General: no acute distress Orientation/consciousness: patient oriented x3 Eyes: EOM: EOMs intact bilaterally Neck: Neck: Yes supple Resp: Auscultation: diminished lung sounds Cardio: Rate: regular rate GI: Palpation (GI): Soft to palpation Neuro: General: patient oriented x3 Objective Data Active Medications Acetaminophen (Acetaminophen 325 Mg Tablet) 650 mg PO Q6H PRN PRN Reason: Pain, Mild 1-3,fever,headache Last Admin: 08/24/24 10:35 Dose: 650 mg Documented By: PUNEET Albuterol Sulfate (Albuterol Sulfate 90 Mcg 8 Gm Inhaler) 2 puff INHALE RQ4H PRN PRN Reason: Wheezing Amlodipine Besylate (Amlodipine Besylate 10 Mg Tablet) 10 mg PO DAILY [facility]; Protocol Last Admin: 08/25/24 08:19 Dose: 10 mg Documented By: CATHY Bupropion HCl (Bupropion Hcl Xl 300 Mg Tab.Er.24h) 300 mg PO DAILY [facility] Last Admin: 08/25/24 08:19 Dose: 300 mg Documented By: CATHY Clonidine HCl (Clonidine Hcl 0.2 Mg Tablet) 0.2 mg PO BEDTIME [facility]; Protocol Last Admin: 08/24/24 20:23 Dose: 0.2 mg Documented By: KRISTEN Cyanocobalamin (Cyanocobalamin (Vitamin B-12) 100 Mcg Tablet) 100 mcg PO DAILY [facility] Last Admin: 08/25/24 08:18 Dose: 100 mcg Documented By: CATHY Doxepin HCl (Doxepin Hcl 10 Mg Capsule) 10 mg PO BEDTIME [facility] Last Admin: 08/24/24 20:23 Dose: 10 mg Documented By: KRISTEN Epoetin Devin-epbx (Epoetin Devin-Epbx 10,000 Unit/Ml Vial) 8,000 unit IVPUSH TuThSa@1800 [facility] Last Admin: 08/23/24 17:27 Dose: 8,000 unit Documented By: ARIS Gabapentin (Gabapentin 600 Mg Tablet) 600 mg PO BID [facility] Last Admin: 08/25/24 08:19 Dose: 600 mg Documented By: CATHY Heparin Sodium (Porcine) (Heparin Sodium,Porcine 5,000 Unit/Ml Vial) 5,000 unit INTRACATH TUTHSA@1645 [facility] Last Admin: 08/23/24 16:09 Dose: Not Given Documented By: ARIS Non-Admin Reason: Dialysis Hydroxyzine HCl (Hydroxyzine Hcl 50 Mg Tablet) 50 mg PO TID PRN PRN Reason: Anxiety Last Admin: 08/19/24 10:58 Dose: 50 mg Documented By: SKY Sodium Thiosulfate 12.5 gm/ (Sodium Chloride) 200 mls @ 400 mls/hr IV Q30M [facility] Stop: 08/18/24 23:14 Magnesium Hydroxide (Milk Of Magnesia 30 Ml Oral.Susp) 30 ml PO DAILY PRN PRN Reason: Constipation Melatonin (Melatonin 3 Mg Tablet) 6 mg PO BEDTIME PRN PRN Reason: Insomnia Meropenem (Meropenem 500 Mg Vial) 500 mg IV TUTHSA [facility] Last Admin: 08/23/24 22:19 Dose: 500 mg Documented By: JAN Methadone HCl (Methadone Hcl 20 Mg/2 Ml Oral.Conc) 100 mg PO DAILY [facility] Last Admin: 08/25/24 08:19 Dose: 100 mg Documented By: CATHY Co-signed By: CALEB Methadone HCl (Methadone Hcl 20 Mg/2 Ml Oral.Conc) 95 mg PO BEDTIME [facility] Last Admin: 08/24/24 20:24 Dose: 95 mg Documented By: KRISTEN Co-signed By: ANDREW Multivitamins/Vitamin C (Multivitamin Tablet) 1 tab PO DAILY [facility] Last Admin: 08/25/24 08:19 Dose: 1 tab Documented By: CATHY Non-Formulary Medication (Lumateperone [Caplyta]) 42 mg PO DAILY [facility] Nystatin (Nystatin Oral Susp 500,000 Unit/5 Ml Oral.Susp) 100,000 unit PO DAILY PRN; Protocol PRN Reason: FLARES Nystatin (Nystatin Powder 15 Gm Bottle) 1 appl TOPICAL BID [facility]; Protocol Last Admin: 08/24/24 20:32 Dose: Not Given Documented By: KRISTEN Non-Admin Reason: Patient Refused Omeprazole (Omeprazole 20 Mg Capsule.) 20 mg PO DAILY@0630 [facility] Last Admin: 08/25/24 05:47 Dose: 20 mg Documented By: KRISTEN Oxycodone HCl (Oxycodone Hcl Immed Release 5 Mg Tablet) 5 mg PO Q4H PRN PRN Reason: Pain, Severe (Pain Scale 7-10) Last Admin: 08/25/24 08:24 Dose: 5 mg Documented By: CATHY Polyethylene Glycol (Polyethylene Glycol 3350 17 Gm Powd.Pack) 17 gm PO DAILY PRN PRN Reason: Constipation Quetiapine Fumarate (Quetiapine Fumarate 50 Mg Tablet) 50 mg PO TID PRN PRN Reason: Anxiety Last Admin: 08/20/24 23:17 Dose: 50 mg Documented By: GEOVANNA Sodium Chloride (0.9 % Sodium Chloride Flush 3 Ml Syringe) [facility] Last Admin: 08/25/24 09:32 Dose: Not Given Documented By: CATHY Non-Admin Reason: Previously Administered Sodium Hypochlorite (Sodium Hypochlorite 0.5% 473 Ml Solution) 1 appl TOPICAL DAILY [facility] Last Admin: 08/24/24 08:49 Dose: 1 appl Documented By: PUNEET Topiramate (Topiramate 100 Mg Tablet) 100 mg PO BID [facility] Last Admin: 08/25/24 08:18 Dose: 100 mg Documented By: CATHY Trazodone HCl (Trazodone Hcl 100 Mg Tablet) 100 mg PO BEDTIME PRN PRN Reason: Insomnia Last Admin: 08/21/24 20:54 Dose: 100 mg Documented By: GEOVANNA Vancomycin HCl (Vancomycin Hcl 125 Mg Capsule) 125 mg PO Q6H [facility] Last Admin: 08/25/24 05:47 Dose: 125 mg Documented By: KRISTEN Warfarin Sodium (Warfarin Sodium 2.5 Mg Tablet) 2.5 mg PO DAILY@1800 [facility] Last Admin: 08/24/24 17:48 Dose: 2.5 mg Documented By: PUNEET Labs 08/25/24 10:24 08/25/24 06:42 Labs: Laboratory Results - last 24 hr 08/25/24 08/25/24 06:42 10:24 MCV 89.7 MCH 27.9 MCHC 31.1 RDW 20.4 H Plt Count 375 MPV 10.7 Absolute Nucleated RBC 0.030 H Nucleated RBC % (auto) 0.2 PT 32.4 H INR 2.8 H Anion Gap 20 Estim Creat Clear Calc 20.7 Estimated GFR 13 Random Glucose 78 Calcium 9.1 D Assessment and Plan (1) Clostridium difficile infection: Status: Acute (2) Calciphylaxis: Status: Acute (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 Pt was transferred to [facility] due to concern for right atrial mass associated dialysis catheter tip endocarditis vs thrombosus, pt transferred back to [place] 08/18/24 for continued treatment and STR placement. Acute C diff infection Stool studies positive for C diff on 08/18 no diarrhea overnight vancomycin 125 mg p.o. q.6 ID following; continue po Vancomycin through the course of IV Abx and 2 days after. new lue swelling check doppler Infective endocarditis with ESBL Klebsiella Bacteremia complicated with with Right atrial mass TTE at [facility] showed severely dilated left atrium and left ventricle, LVEF 59%, adherent mass with mobile components of left atrium Culture positive for Klebsiella pneumoniae that has cephalosporin resistant gene positive and Pseudomonas Pt started on meropenem 500 mg IV, continue for total of 6 weeks to finish by September 18, 2024 Follow up outpatient with Cardiology at [facility] after discharge for repeat TTE and possible outpatient cardiac MRI Unable to discharge to home as HD center does not cover Meropenem Dilated CBD CT of abdomen and pelvis on 08/07 [facility] found distended gallbladder and distal CBD dilation of 1.1 cm and possible filling deficit and distal CBD concerning for choledocholithiasis GI recommendation was for MRCP at [facility], however pt refused Pt currently asymptomatic without RUQ abdominal pain, no nausea or vomiting; has been eating and drinking without issue Currently no indication for MRCP, Consider GI consult and repeat imaging if pt develops symptoms Bilateral lower extremity wounds 2/2 Calciphylaxis Continue sodium thiosulfate 25 g IV 3 times weekly after dialysis Wound care consult Analgesics for pain management Pt has so far declined debridement General surgery consult, require extensive debridement with the assistance of Plastic surgery for wound coverage in his much more extensive that can be handled at our facility. Patient will be best treated at a tertiary care center with multimodality treatment including plastic surgery and inpatient wound care. Dr Pickens thinks it is better to be done as outpatient after finishing Bacteremia treatment ESRD On HD T//Thu Anemia of chronic disease S/p 3 units PRBCs at [facility] 8000 units x3 weekly post dialysis Follow CBC, transfuse as necessary HTN Continue amlodipine and clonidine Antiphospholipid syndrome Continue warfarin Daily INR with target range 2-3 GERD Continue PPI Polysubstance use disorder Continue methadone 100 mg daily and 95 mg at bedtime Mood disorder Continue hydroxyzine, trazodone, topiramate, and bupropion Full Code DVT Prophylaxis: On Warfarin reason for continued hospitalization:lue swelling Quality Stroke Does the patient have a stroke diagnosis?: No VTE Prior VTE?: No VTE Risk Level:: Medical - moderate - high VTE Device Contraindication: Treatment Not Indicated VTE Drug Contraindication: N/A - Med Ordered
[2024-08-25] MEDS: Nystatin Powder 15 GM BOTTLE 1 APPL TOPICAL ×2 (12:45→22:43)
[2024-08-25] MEDS: Sodium Hypochlorite 0.5% 473 ML SOLUTION 1 APPL TOPICAL (12:47)
[2024-08-25] MEDS: SODIUM THIOSULFATE IV ×2 (13:23→15:23)
[2024-08-25] MEDS: SODIUM CHLORIDE 0.9% IV ×2 (13:23→15:23)
--- NOTE | 2024-08-25 18:19 | P.PNNP_ITS ---
Subjective Subjective Date of Service: 08/25/24 Interval history: diarrhea resolved. Seen on HD AM Physical Exam 2 Vital Signs: Vital Signs: Last Vital Signs Temp 99.4 F 08/25/24 16:00 Pulse 86 08/25/24 16:00 Resp 18 08/25/24 16:00 BP 168/87 H 08/25/24 16:00 Pulse Ox 92 08/25/24 16:00 O2 Del Method Room Air 08/25/24 16:00 O2 Flow Rate 2 08/25/24 03:32 BMI result Body Mass Index 27.4 Const: General: no acute distress Orientation/consciousness: patient oriented x3 Eyes: EOM: EOMs intact bilaterally Resp: Auscultation: diminished lung sounds Cardio: Rate: regular rate GI: Palpation (GI): Soft to palpation Neuro: General: patient oriented x3 Objective Data Labs 08/25/24 10:24 08/25/24 06:42 Labs: Laboratory Results - last 24 hr 08/25/24 08/25/24 06:42 10:24 WBC 12.9 H RBC 3.01 L Hgb 8.4 L Hct 27.0 L MCV 89.7 MCH 27.9 MCHC 31.1 RDW 20.4 H Plt Count 375 MPV 10.7 Absolute Nucleated RBC 0.030 H Nucleated RBC % (auto) 0.2 PT 32.4 H INR 2.8 H Sodium 139 Potassium 4.7 Chloride 101 Carbon Dioxide 23 Anion Gap 20 BUN 36 H Creatinine 3.88 H Estim Creat Clear Calc 20.7 Estimated GFR 13 Random Glucose 78 Calcium 9.1 D Microbiology Microbiology Results: Microbiology 08/18/24 19:34 Blood - Venous Blood Culture - Final No growth after 5 days. 08/18/24 19:34 Blood - Venous Blood Culture - Final No growth after 5 days. Procedures Date of Service Date of Service: 08/25/24 Assessment & Plan Assessment and plan (1) End stage renal disease on dialysis: Status: Acute Plan Usually gets HD on TTS . Seen on HD Has a functioning HD catheter Na thiosulphate TTS as ordered No Vitamin D , calcitriol or ca based binders Phos binders with meals Procrit 49333 U 3 times a week TTS Antibiotics as ordered. Needs cards F/U Shall follow along Progress Note: Quality Stroke Does the patient have a stroke diagnosis?: No
[2024-08-25] MEDS: Warfarin Sodium 2.5 MG TABLET PO (18:34)
[2024-08-25] MEDS: Heparin Sodium,Porcine 5,000 UNIT/ML VIAL 5000 UNIT INTRACATH (18:34)
[2024-08-25] MEDS: cloNIDine HCL 0.2 MG TABLET PO (20:02)
[2024-08-25] MEDS: methADONE HCl 20 MG/2 ML ORAL.CONC 95 MG PO (20:02)
[2024-08-25] MEDS: hydrOXYzine HCL 50 MG TABLET PO (20:03)
[2024-08-25] MEDS: Doxepin HCl 10 MG CAPSULE PO (20:05)
[2024-08-25] MEDS: traZODone HCL 100 MG TABLET PO (20:06)
[2024-08-25] MEDS: 0.9 % Sodium Chloride Flush 3 ML SYRINGE IVFLUSH (20:07)
[2024-08-25] MEDS: Epoetin Alfa-epbx 10,000 UNIT/ML VIAL 8000 UNIT IVPUSH (22:36)
[2024-08-25] MEDS: Meropenem 500 MG VIAL IV (22:49)
[2024-08-26 03:39] VITALS: BP 148/87; PULSE 83; RESP 16; TEMP 36.3; O2SAT 94
[2024-08-26] MEDS: vancomycin HCL 125 MG CAPSULE PO ×4 (05:45→22:55)
[2024-08-26] MEDS: Omeprazole 20 MG CAPSULE.DR PO (05:47)
[2024-08-26 08:00] VITALS: BP 146/93; PULSE 83; RESP 18; TEMP 37.1; O2SAT 95
[2024-08-26] MEDS: amLODIPine Besylate 10 MG TABLET PO (08:44)
[2024-08-26] MEDS: Gabapentin 600 MG TABLET PO ×2 (08:44→20:25)
[2024-08-26] MEDS: Topiramate 100 MG TABLET PO ×2 (08:44→20:25)
[2024-08-26] MEDS: methADONE HCl 20 MG/2 ML ORAL.CONC 100 MG PO (08:44)
[2024-08-26] MEDS: Cyanocobalamin (Vitamin B-12) 100 MCG TABLET PO (08:44)
[2024-08-26] MEDS: buPROPion HCl XL 300 MG TAB.ER.24H PO (08:44)
[2024-08-26] MEDS: Multivitamin TABLET 1 TAB PO (08:44)
[2024-08-26] MEDS: oxyCODONE HCl Immed Release 5 MG TABLET PO ×3 (08:45→20:25)
[2024-08-26] MEDS: 0.9 % Sodium Chloride Flush 3 ML SYRINGE IVFLUSH ×3 (08:49→22:56)
--- NOTE | 2024-08-26 09:18 | P.PNIM_ITS ---
Subjective Subjective Date of Service: 08/26/24 Interval History: diarrhea resolved Physical Exam 2 Vital Signs: Vital Signs: Last Vital Signs Temp 98.7 F 08/26/24 08:00 Pulse 83 08/26/24 08:00 Resp 18 08/26/24 08:00 BP 146/93 H 08/26/24 08:00 Pulse Ox 95 08/26/24 08:00 O2 Del Method Nasal Cannula 08/26/24 08:00 O2 Flow Rate 2 08/26/24 08:00 BMI result Body Mass Index 27.4 Const: General: no acute distress Orientation/consciousness: patient oriented x3 Eyes: EOM: EOMs intact bilaterally Resp: Auscultation: diminished lung sounds Cardio: Rate: regular rate GI: Palpation (GI): Soft to palpation Neuro: General: patient oriented x3 Objective Data Active Medications Acetaminophen (Acetaminophen 325 Mg Tablet) 650 mg PO Q6H PRN PRN Reason: Pain, Mild 1-3,fever,headache Last Admin: 08/24/24 10:35 Dose: 650 mg Documented By: PUNEET Albuterol Sulfate (Albuterol Sulfate 90 Mcg 8 Gm Inhaler) 2 puff INHALE RQ4H PRN PRN Reason: Wheezing Amlodipine Besylate (Amlodipine Besylate 10 Mg Tablet) 10 mg PO DAILY [facility]; Protocol Last Admin: 08/26/24 08:44 Dose: 10 mg Documented By: CATHY Bupropion HCl (Bupropion Hcl Xl 300 Mg Tab.Er.24h) 300 mg PO DAILY [facility] Last Admin: 08/26/24 08:44 Dose: 300 mg Documented By: CATHY Clonidine HCl (Clonidine Hcl 0.2 Mg Tablet) 0.2 mg PO BEDTIME [facility]; Protocol Last Admin: 08/25/24 20:02 Dose: 0.2 mg Documented By: KRISTEN Cyanocobalamin (Cyanocobalamin (Vitamin B-12) 100 Mcg Tablet) 100 mcg PO DAILY [facility] Last Admin: 08/26/24 08:44 Dose: 100 mcg Documented By: CATHY Doxepin HCl (Doxepin Hcl 10 Mg Capsule) 10 mg PO BEDTIME [facility] Last Admin: 08/25/24 20:05 Dose: 10 mg Documented By: KRISTEN Epoetin Devin-epbx (Epoetin Devin-Epbx 10,000 Unit/Ml Vial) 8,000 unit IVPUSH TuThSa@1800 [facility] Last Admin: 08/25/24 22:36 Dose: 8,000 unit Documented By: KRISTEN Comments: late d/t no access to med Gabapentin (Gabapentin 600 Mg Tablet) 600 mg PO BID [facility] Last Admin: 08/26/24 08:44 Dose: 600 mg Documented By: CATHY Heparin Sodium (Porcine) (Heparin Sodium,Porcine 5,000 Unit/Ml Vial) 5,000 unit INTRACATH TUTHSA@1645 [facility] Last Admin: 08/25/24 18:34 Dose: 5,000 unit Documented By: CATHY Hydroxyzine HCl (Hydroxyzine Hcl 50 Mg Tablet) 50 mg PO TID PRN PRN Reason: Anxiety Last Admin: 08/25/24 20:03 Dose: 50 mg Documented By: KRISTEN Sodium Thiosulfate 12.5 gm/ (Sodium Chloride) 200 mls @ 400 mls/hr IV Q30M [facility] Stop: 08/18/24 23:14 Magnesium Hydroxide (Milk Of Magnesia 30 Ml Oral.Susp) 30 ml PO DAILY PRN PRN Reason: Constipation Melatonin (Melatonin 3 Mg Tablet) 6 mg PO BEDTIME PRN PRN Reason: Insomnia Meropenem (Meropenem 500 Mg Vial) 500 mg IV TUTA [facility] Last Admin: 08/25/24 22:49 Dose: 500 mg Documented By: KRISTEN Methadone HCl (Methadone Hcl 20 Mg/2 Ml Oral.Conc) 100 mg PO DAILY [facility] Last Admin: 08/26/24 08:44 Dose: 100 mg Documented By: CATHY Co-signed By: JAMIE Methadone HCl (Methadone Hcl 20 Mg/2 Ml Oral.Conc) 95 mg PO BEDTIME [facility] Last Admin: 08/25/24 20:02 Dose: 95 mg Documented By: KRISTEN Co-signed By: JAN Multivitamins/Vitamin C (Multivitamin Tablet) 1 tab PO DAILY [facility] Last Admin: 08/26/24 08:44 Dose: 1 tab Documented By: CATHY Non-Formulary Medication (Lumateperone [Caplyta]) 42 mg PO DAILY [facility] Nystatin (Nystatin Oral Susp 500,000 Unit/5 Ml Oral.Susp) 100,000 unit PO DAILY PRN; Protocol PRN Reason: FLARES Nystatin (Nystatin Powder 15 Gm Bottle) 1 appl TOPICAL BID [facility]; Protocol Last Admin: 08/26/24 08:55 Dose: Not Given Documented By: CATHY Non-Admin Reason: Patient Refused Omeprazole (Omeprazole 20 Mg Capsule.) 20 mg PO DAILY@0630 [facility] Last Admin: 08/26/24 05:47 Dose: 20 mg Documented By: KRISTEN Oxycodone HCl (Oxycodone Hcl Immed Release 5 Mg Tablet) 5 mg PO Q4H PRN PRN Reason: Pain, Severe (Pain Scale 7-10) Last Admin: 08/26/24 08:45 Dose: 5 mg Documented By: CATHY Polyethylene Glycol (Polyethylene Glycol 3350 17 Gm Powd.Pack) 17 gm PO DAILY PRN PRN Reason: Constipation Quetiapine Fumarate (Quetiapine Fumarate 50 Mg Tablet) 50 mg PO TID PRN PRN Reason: Anxiety Last Admin: 08/20/24 23:17 Dose: 50 mg Documented By: GEOVANNA Sodium Chloride (0.9 % Sodium Chloride Flush 3 Ml Syringe) 3 ml IVFLUSH QSHIFT [facility] Last Admin: 08/26/24 08:49 Dose: 3 ml Documented By: CATHY Sodium Hypochlorite (Sodium Hypochlorite 0.5% 473 Ml Solution) 1 appl TOPICAL DAILY [facility] Last Admin: 08/26/24 08:55 Dose: Not Given Documented By: CATHY Non-Admin Reason: Patient Refused Topiramate (Topiramate 100 Mg Tablet) 100 mg PO BID [facility] Last Admin: 08/26/24 08:44 Dose: 100 mg Documented By: CATHY Trazodone HCl (Trazodone Hcl 100 Mg Tablet) 100 mg PO BEDTIME PRN PRN Reason: Insomnia Last Admin: 08/25/24 20:06 Dose: 100 mg Documented By: KRISTEN Vancomycin HCl (Vancomycin Hcl 125 Mg Capsule) 125 mg PO Q6H [facility] Last Admin: 08/26/24 05:45 Dose: 125 mg Documented By: KRISTEN Warfarin Sodium (Warfarin Sodium 2.5 Mg Tablet) 2.5 mg PO DAILY@1800 [facility] Last Admin: 08/25/24 18:34 Dose: 2.5 mg Documented By: CATHY Labs 08/25/24 10:24 08/25/24 06:42 Labs: Laboratory Results - last 24 hr 08/25/24 10:24 MCV 89.7 MCH 27.9 MCHC 31.1 RDW 20.4 H Plt Count 375 MPV 10.7 Absolute Nucleated RBC 0.030 H Nucleated RBC % (auto) 0.2 Assessment and Plan (1) Clostridium difficile infection: Status: Acute (2) Calciphylaxis: Status: Acute (3) 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 Pt was transferred to [place] due to concern for right atrial mass associated dialysis catheter tip endocarditis vs thrombosus, pt transferred back to [facility] 08/18/24 for continued treatment and STR placement. Acute C diff infection Stool studies positive for C diff on 08/18 no diarrhea overnight vancomycin 125 mg p.o. q.6 ID following; continue po Vancomycin through the course of IV Abx and 2 days after. new lue swelling negative doppler Infective endocarditis with ESBL Klebsiella Bacteremia complicated with with Right atrial mass TTE at [facility] showed severely dilated left atrium and left ventricle, LVEF 59%, adherent mass with mobile components of left atrium Culture positive for Klebsiella pneumoniae that has cephalosporin resistant gene positive and Pseudomonas Pt started on meropenem 500 mg IV, continue for total of 6 weeks to finish by September 18, 2024 Follow up outpatient [place] [facility] [place] discharge for repeat TTE and possible outpatient cardiac MRI Unable to discharge to home as HD center does not cover Meropenem Dilated CBD CT of abdomen and pelvis on 08/07 [facility] found distended gallbladder and distal CBD dilation of 1.1 cm and possible filling deficit and distal CBD concerning for choledocholithiasis GI recommendation was for MRCP at [facility], however pt refused Pt currently asymptomatic without RUQ abdominal pain, no nausea or vomiting; has been eating and drinking without issue Currently no indication for MRCP, Consider GI consult and repeat imaging if pt develops symptoms Bilateral lower extremity wounds 2/2 Calciphylaxis Continue sodium thiosulfate 25 g IV 3 times weekly after dialysis Wound care consult Analgesics for pain management Pt has so far declined debridement General surgery consult, require extensive debridement with the assistance of Plastic surgery for wound coverage in his much more extensive that can be handled at our facility. Patient will be best treated at a tertiary care center with multimodality treatment including plastic surgery and inpatient wound care. Dr Pickens thinks it is better to be done as outpatient after finishing Bacteremia treatment ESRD On HD T//Thu Anemia of chronic disease S/p [facility] units x3 weekly post dialysis Follow CBC, transfuse as necessary HTN Continue amlodipine and clonidine Antiphospholipid syndrome Continue warfarin Daily INR with target range 2-3 GERD Continue PPI Polysubstance use disorder Continue methadone 100 mg daily and 95 mg at bedtime Mood disorder Continue hydroxyzine, trazodone, topiramate, and bupropion Full Code DVT Prophylaxis: On Warfarin reason for continued hospitalization:lue swelling Quality Stroke Does the patient have a stroke diagnosis?: No VTE Prior VTE?: No VTE Risk Level:: Medical - moderate - high VTE Device Contraindication: Treatment Not Indicated VTE Drug Contraindication: N/A - Med Ordered
[2024-08-26 10:43] LABS: INTERNATIONAL NORM RATIO 2.5 (0.9-1.1); Prothrombin Time 29.6 SEC (10.9-12.4)
--- NOTE | 2024-08-26 12:13 | MHC.CM.PN ---
Patient awaiting SNF placement for STR/IV abx. No bed offers at this time. CM will continue to follow.
[2024-08-26 13:47] VITALS: BP 146/93; PULSE 83; O2SAT 95
--- NOTE | 2024-08-26 14:55 | MHC.CLN ---
F/U DIET=REGULAR. STRAWBERRY ENSURE TID PER PATIENT PREFERENCE. SUPPLEMENT PROVIDES 1050 KCALS, 60 G PROTEIN. PO INTAKE VARIABLE, 0-100% CONTINUE CURRENT DIET AND SUPPLEMENT. SKIN WITH MULTIPLE WOUNDS. STAGE III PI TO L ISCHIUM AND STAGE II PI TO R ISCHIUM. OTHER NECROTIC AREAS NOTED. PATIENT WITH ESRD ON HEMODIALYSIS. SUPPLEMENT TO PROMOTE NUTRITIONAL INTAKE/WOUND HEALING. FOLLOW FOR PO INTAKE AND SKIN INTEGRITY.
[2024-08-26 15:47] VITALS: BP 152/88; PULSE 88; RESP 16; TEMP 37; O2SAT 91
[2024-08-26] MEDS: Warfarin Sodium 2.5 MG TABLET PO (17:39)
--- NOTE | 2024-08-26 18:20 | PC.NURSE ---
pt alert and oriented, refused dressings change. educated on importance of wound care, pt continued to refuse, stating she feels uncomfortable. wound care nurse notified. will inform oncoming RN.
[2024-08-26 19:40] VITALS: BP 157/91; PULSE 87; RESP 17; TEMP 37.3; O2SAT 93
[2024-08-26] MEDS: methADONE HCl 20 MG/2 ML ORAL.CONC 95 MG PO (20:24)
[2024-08-26] MEDS: cloNIDine HCL 0.2 MG TABLET PO (20:24)
[2024-08-26] MEDS: Doxepin HCl 10 MG CAPSULE PO (20:25)
[2024-08-26] MEDS: hydrOXYzine HCL 50 MG TABLET PO (20:25)
--- NOTE | 2024-08-26 20:34 | PC.NURSE ---
The patient refused dressing change druing the day, claiming that she felt like the nurse was incompetent to perform the task. When reminded that regular dressing change is essential to proper healing and prevent further infectious process, the patient agreed to have her dressing changed once she receives her pain medications. However, when she was woken up to be given her scheduled medication along with PRN meds she requested for, the patient began yelling, everybody fucking waking me up for no fucking reason. They wake me up for meds, dressing change, no, no, I'm tryign to sleep here. You all need to leave me the fuck alone. She then accused nursing staff of fucking with her methadone, claiming that she was not given the full dose, when the meds were reviewed, scanned, and given all right in front of the patient. The patient said, I don't believe in you, and that she no longer wanted to do dressing change.
--- NOTE | 2024-08-26 21:51 | P.PNNP_ITS ---
Subjective Subjective Date of Service: 08/26/24 Interval history: diarrhea resolved. Due HD tomorrow Physical Exam 2 Vital Signs: Vital Signs: Last Vital Signs Temp 99.2 F 08/26/24 19:40 Pulse 87 08/26/24 19:40 Resp 17 08/26/24 19:40 BP 157/91 H 08/26/24 19:40 Pulse Ox 93 08/26/24 19:40 O2 Del Method Room Air 08/26/24 19:40 O2 Flow Rate 2 08/26/24 08:00 BMI result Body Mass Index 27.4 Const: General: no acute distress Orientation/consciousness: patient oriented x3 Eyes: EOM: EOMs intact bilaterally Neck: Neck: Yes supple Resp: Auscultation: diminished lung sounds Cardio: Rate: regular rate GI: Palpation (GI): Soft to palpation Neuro: General: patient oriented x3 Objective Data Labs 08/25/24 10:24 08/25/24 06:42 Labs: Laboratory Results - last 24 hr 08/26/24 10:28 PT 29.6 H INR 2.5 H Microbiology Microbiology Results: Microbiology 08/18/24 19:34 Blood - Venous Blood Culture - Final No growth after 5 days. 08/18/24 19:34 Blood - Venous Blood Culture - Final No growth after 5 days. Procedures Date of Service Date of Service: 08/26/24 Assessment & Plan Assessment and plan (1) End stage renal disease on dialysis: Status: Acute Plan Usually gets HD on TTS Has a functioning HD catheter Na thiosulphate TTS as ordered No Vitamin D , calcitriol or ca based binders Phos binders with meals Procrit [id number] U 3 times a week TTS Antibiotics as ordered. Needs cards F/U Shall follow along Progress Note: Quality Stroke Does the patient have a stroke diagnosis?: No
[2024-08-26] MEDS: traZODone HCL 100 MG TABLET PO (22:55)
[2024-08-27 03:23] VITALS: BP 158/99; PULSE 86; RESP 17; TEMP 36.9; O2SAT 92
[2024-08-27] MEDS: vancomycin HCL 125 MG CAPSULE PO ×4 (05:48→22:09)
[2024-08-27] MEDS: Omeprazole 20 MG CAPSULE.DR PO (05:48)
[2024-08-27] MEDS: oxyCODONE HCl Immed Release 5 MG TABLET PO ×4 (05:48→22:09)
[2024-08-27 07:36] VITALS: BP 165/94; PULSE 86; RESP 12; TEMP 36.6; O2SAT 92
--- NOTE | 2024-08-27 09:39 | HO.PM.IMPN ---
Subjective Subjective Date of Service: 08/27/24 Interval History: diarrhea resolved Physical Exam Vital Signs: Vital Signs: Last Vital Signs Temp 97.9 F 08/27/24 07:36 Pulse 86 08/27/24 07:36 Resp 12 08/27/24 07:36 BP 165/94 H 08/27/24 07:36 Pulse Ox 92 08/27/24 07:36 O2 Del Method Nasal Cannula 08/27/24 07:36 O2 Flow Rate 2 08/27/24 07:36 BMI result Body Mass Index 27.4 Const: General: no acute distress Orientation/consciousness: patient oriented x3 Eyes: EOM: EOMs intact bilaterally Neck: Neck: Yes supple Resp: Auscultation: diminished lung sounds Cardio: Rate: regular rate GI: Palpation (GI): Soft to palpation Neuro: General: patient oriented x3 Objective Data Active Medications Acetaminophen (Acetaminophen 325 Mg Tablet) 650 mg PO Q6H PRN PRN Reason: Pain, Mild 1-3,fever,headache Last Admin: 08/24/24 10:35 Dose: 650 mg Documented By: PUNEET Albuterol Sulfate (Albuterol Sulfate 90 Mcg 8 Gm Inhaler) 2 puff INHALE RQ4H PRN PRN Reason: Wheezing Amlodipine Besylate (Amlodipine Besylate 10 Mg Tablet) 10 mg PO DAILY [facility]; Protocol Last Admin: 08/26/24 08:44 Dose: 10 mg Documented By: CATHY Bupropion HCl (Bupropion Hcl Xl 300 Mg Tab.Er.24h) 300 mg PO DAILY [facility] Last Admin: 08/26/24 08:44 Dose: 300 mg Documented By: CATHY Clonidine HCl (Clonidine Hcl 0.2 Mg Tablet) 0.2 mg PO BEDTIME [facility]; Protocol Last Admin: 08/26/24 20:24 Dose: 0.2 mg Documented By: JOEL Cyanocobalamin (Cyanocobalamin (Vitamin B-12) 100 Mcg Tablet) 100 mcg PO DAILY [facility] Last Admin: 08/26/24 08:44 Dose: 100 mcg Documented By: CATHY Doxepin HCl (Doxepin Hcl 10 Mg Capsule) 10 mg PO BEDTIME [facility] Last Admin: 08/26/24 20:25 Dose: 10 mg Documented By: JOEL Epoetin Devin-epbx (Epoetin Devin-Epbx 10,000 Unit/Ml Vial) 8,000 unit IVPUSH TuThSa@1800 [facility] Last Admin: 08/25/24 22:36 Dose: 8,000 unit Documented By: KRISTEN Comments: late d/t no access to med Gabapentin (Gabapentin 600 Mg Tablet) 600 mg PO BID [facility] Last Admin: 08/26/24 20:25 Dose: 600 mg Documented By: JOEL Heparin Sodium (Porcine) (Heparin Sodium,Porcine 5,000 Unit/Ml Vial) 5,000 unit INTRACATH TUTHSA@1645 [facility] Last Admin: 08/25/24 18:34 Dose: 5,000 unit Documented By: CATHY Hydroxyzine HCl (Hydroxyzine Hcl 50 Mg Tablet) 50 mg PO TID PRN PRN Reason: Anxiety Last Admin: 08/26/24 20:25 Dose: 50 mg Documented By: JOEL Sodium Thiosulfate 12.5 gm/ (Sodium Chloride) 200 mls @ 400 mls/hr IV Q30M [facility] Stop: 08/18/24 23:14 Magnesium Hydroxide (Milk Of Magnesia 30 Ml Oral.Susp) 30 ml PO DAILY PRN PRN Reason: Constipation Melatonin (Melatonin 3 Mg Tablet) 6 mg PO BEDTIME PRN PRN Reason: Insomnia Meropenem (Meropenem 500 Mg Vial) 500 mg IV TUTA [facility] Last Admin: 08/25/24 22:49 Dose: 500 mg Documented By: KRISTEN Methadone HCl (Methadone Hcl 20 Mg/2 Ml Oral.Conc) 100 mg PO DAILY [facility] Last Admin: 08/26/24 08:44 Dose: 100 mg Documented By: CATHY Co-signed By: JAMIE Methadone HCl (Methadone Hcl 20 Mg/2 Ml Oral.Conc) 95 mg PO BEDTIME [facility] Last Admin: 08/26/24 20:24 Dose: 95 mg Documented By: JOEL Co-signed By: ANTONIETA Multivitamins/Vitamin C (Multivitamin Tablet) 1 tab PO DAILY [facility] Last Admin: 08/26/24 08:44 Dose: 1 tab Documented By: CATHY Non-Formulary Medication (Lumateperone [Caplyta]) 42 mg PO DAILY [facility] Nystatin (Nystatin Oral Susp 500,000 Unit/5 Ml Oral.Susp) 100,000 unit PO DAILY PRN; Protocol PRN Reason: FLARES Nystatin (Nystatin Powder 15 Gm Bottle) 1 appl TOPICAL BID [facility]; Protocol Last Admin: 08/26/24 20:26 Dose: Not Given Documented By: JOEL Non-Admin Reason: Patient Refused Omeprazole (Omeprazole 20 Mg Capsule.) 20 mg PO DAILY@0630 [facility] Last Admin: 08/27/24 05:48 Dose: 20 mg Documented By: JOEL Oxycodone HCl (Oxycodone Hcl Immed Release 5 Mg Tablet) 5 mg PO Q4H PRN PRN Reason: Pain, Severe (Pain Scale 7-10) Last Admin: 08/27/24 05:48 Dose: 5 mg Documented By: JOEL Polyethylene Glycol (Polyethylene Glycol 3350 17 Gm Powd.Pack) 17 gm PO DAILY PRN PRN Reason: Constipation Quetiapine Fumarate (Quetiapine Fumarate 50 Mg Tablet) 50 mg PO TID PRN PRN Reason: Anxiety Last Admin: 08/20/24 23:17 Dose: 50 mg Documented By: GEOVANNA Sodium Chloride (0.9 % Sodium Chloride Flush 3 Ml Syringe) [facility] Last Admin: 08/26/24 22:56 Dose: 3 ml Documented By: JOEL Sodium Hypochlorite (Sodium Hypochlorite 0.5% 473 Ml Solution) 1 appl TOPICAL DAILY [facility] Last Admin: 08/26/24 08:55 Dose: Not Given Documented By: CATHY Non-Admin Reason: Patient Refused Topiramate (Topiramate 100 Mg Tablet) 100 mg PO BID [facility] Last Admin: 08/26/24 20:25 Dose: 100 mg Documented By: JOEL Trazodone HCl (Trazodone Hcl 100 Mg Tablet) 100 mg PO BEDTIME PRN PRN Reason: Insomnia Last Admin: 08/26/24 22:55 Dose: 100 mg Documented By: JOEL Vancomycin HCl (Vancomycin Hcl 125 Mg Capsule) 125 mg PO Q6H [facility] Last Admin: 08/27/24 05:48 Dose: 125 mg Documented By: JOEL Warfarin Sodium (Warfarin Sodium 2.5 Mg Tablet) 2.5 mg PO DAILY@1800 [facility] Last Admin: 08/26/24 17:39 Dose: 2.5 mg Documented By: HO.KOSKEYS Labs 08/25/24 10:24 08/25/24 06:42 Labs: Laboratory Results - last 24 hr 08/26/24 10:28 PT 29.6 H INR 2.5 H Assessment and Plan (1) Clostridium difficile infection: Status: Acute (2) Calciphylaxis: Status: Acute (3) 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 Pt was transferred to [facility] due to concern for right atrial mass associated dialysis catheter tip endocarditis vs thrombosus, pt transferred back [place] [facility] [place]18[place]24 for continued treatment and STR placement. Acute C diff infection Stool studies positive for C diff on 08/18 no diarrhea overnight vancomycin 125 mg p.o. q.6 ID following; continue po Vancomycin through the course of IV Abx and 2 days after. new lue swelling negative doppler Infective endocarditis with ESBL Klebsiella Bacteremia complicated with with Right atrial mass TTE at [facility] [place] showed severely dilated left atrium and left ventricle, LVEF 59%, adherent mass with mobile components of left atrium Culture positive for Klebsiella pneumoniae that has cephalosporin resistant gene positive and Pseudomonas Pt started on meropenem 500 mg IV, continue for total of 6 weeks to finish by September 18, 2024 Follow up outpatient with Cardiology at [facility] after discharge for repeat TTE and possible outpatient cardiac MRI Unable to discharge to home as HD center does not cover Meropenem Dilated CBD CT of abdomen and pelvis on 08/07 [facility] found distended gallbladder and distal CBD dilation of 1.1 cm and possible filling deficit and distal CBD concerning for choledocholithiasis GI recommendation was for MRCP at [facility] [place], however pt refused Pt currently asymptomatic without RUQ abdominal pain, no nausea or vomiting; has been eating and drinking without issue Currently no indication for MRCP, Consider GI consult and repeat imaging if pt develops symptoms Bilateral lower extremity wounds 2/2 Calciphylaxis Continue sodium thiosulfate 25 g IV 3 times weekly after dialysis Wound care consult Analgesics for pain management Pt has so far declined debridement General surgery consult, require extensive debridement with the assistance of Plastic surgery for wound coverage in his much more extensive that can be handled at our facility. Patient will be best treated at a tertiary care center with multimodality treatment including plastic surgery and inpatient wound care. Dr Pickens thinks it is better to be done as outpatient after finishing Bacteremia treatment ESRD On HD T//Thu Anemia of chronic disease [facility] Follow CBC, transfuse as necessary HTN Continue amlodipine and clonidine Antiphospholipid syndrome Continue warfarin Daily INR with target range 2-3 GERD Continue PPI Polysubstance use disorder Continue methadone 100 mg daily and 95 mg at bedtime Mood disorder Continue hydroxyzine, trazodone, topiramate, and bupropion Full Code DVT Prophylaxis: On Warfarin reason for continued hospitalization:lue swelling Quality Stroke Does the patient have a stroke diagnosis?: No VTE Prior VTE?: No VTE Risk Level:: Medical - moderate - high VTE Device Contraindication: Treatment Not Indicated VTE Drug Contraindication: N/A - Med Ordered
[2024-08-27] MEDS: 0.9 % Sodium Chloride Flush 3 ML SYRINGE IVFLUSH ×3 (09:46→20:24)
[2024-08-27] MEDS: Cyanocobalamin (Vitamin B-12) 100 MCG TABLET PO (09:47)
[2024-08-27] MEDS: buPROPion HCl XL 300 MG TAB.ER.24H PO (09:47)
[2024-08-27] MEDS: Topiramate 100 MG TABLET PO ×2 (09:47→20:23)
[2024-08-27] MEDS: Gabapentin 600 MG TABLET PO ×2 (09:47→20:23)
[2024-08-27] MEDS: amLODIPine Besylate 10 MG TABLET PO (09:47)
[2024-08-27] MEDS: Multivitamin TABLET 1 TAB PO (09:47)
[2024-08-27] MEDS: methADONE HCl 20 MG/2 ML ORAL.CONC 100 MG PO (09:48)
[2024-08-27 10:39] LABS: INTERNATIONAL NORM RATIO 2.6 (0.9-1.1); Prothrombin Time 30.1 SEC (10.9-12.4)
[2024-08-27 14:43] VITALS: BP 157/93; PULSE 83; RESP 14; TEMP 36.6; O2SAT 92
[2024-08-27] MEDS: SODIUM CHLORIDE 0.9% IV ×2 (15:41→18:34)
[2024-08-27] MEDS: SODIUM THIOSULFATE IV ×2 (15:41→18:34)
--- NOTE | 2024-08-27 16:07 | PC.NURSE ---
IV Infiltrate, notified, Primary RN notified, unable to place IV x 2 attempts, Clin Sup messaged to see if a RN in house can do US Guided.
[2024-08-27] MEDS: Warfarin Sodium 2.5 MG TABLET PO (17:33)
[2024-08-27] MEDS: Epoetin Alfa-epbx 10,000 UNIT/ML VIAL 8000 UNIT IVPUSH (18:16)
[2024-08-27 19:21] VITALS: BP 173/95; PULSE 88; RESP 18; TEMP 37.5; O2SAT 95
[2024-08-27] MEDS: methADONE HCl 20 MG/2 ML ORAL.CONC 95 MG PO (20:23)
[2024-08-27] MEDS: hydrOXYzine HCL 50 MG TABLET PO (20:23)
[2024-08-27] MEDS: cloNIDine HCL 0.2 MG TABLET PO (20:23)
[2024-08-27] MEDS: Doxepin HCl 10 MG CAPSULE PO (20:23)
[2024-08-27] MEDS: Meropenem 500 MG VIAL IV (22:09)
[2024-08-27] MEDS: traZODone HCL 100 MG TABLET PO (22:16)
[2024-08-28 03:38] VITALS: BP 152/91; PULSE 80; RESP 17; TEMP 37.2; O2SAT 96
[2024-08-28] MEDS: vancomycin HCL 125 MG CAPSULE PO ×4 (06:14→21:56)
[2024-08-28] MEDS: oxyCODONE HCl Immed Release 5 MG TABLET PO ×3 (06:17→21:57)
[2024-08-28] MEDS: Omeprazole 20 MG CAPSULE.DR PO (06:18)
[2024-08-28 08:00] VITALS: BP 152/92; PULSE 80; RESP 16; TEMP 36.6; O2SAT 96
--- NOTE | 2024-08-28 08:39 | HO.PM.IMPN ---
Subjective Subjective Date of Service: 08/28/24 Interval History: diarrhea resolved Physical Exam Vital Signs: Vital Signs: Last Vital Signs Temp 97.8 F 08/28/24 08:00 Pulse 80 08/28/24 08:00 Resp 16 08/28/24 08:00 BP 152/92 H 08/28/24 08:00 Pulse Ox 96 08/28/24 08:00 O2 Del Method Room Air 08/28/24 08:00 O2 Flow Rate 2 08/27/24 14:43 BMI result Body Mass Index 27.4 Const: General: no acute distress Orientation/consciousness: patient oriented x3 Eyes: EOM: EOMs intact bilaterally Neck: Neck: Yes supple Resp: Auscultation: diminished lung sounds Cardio: Rate: regular rate GI: Palpation (GI): Soft to palpation Neuro: General: patient oriented x3 Objective Data Active Medications Acetaminophen (Acetaminophen 325 Mg Tablet) 650 mg PO Q6H PRN PRN Reason: Pain, Mild 1-3,fever,headache Last Admin: 08/24/24 10:35 Dose: 650 mg Documented By: PUNEET Albuterol Sulfate (Albuterol Sulfate 90 Mcg 8 Gm Inhaler) 2 puff INHALE RQ4H PRN PRN Reason: Wheezing Amlodipine Besylate (Amlodipine Besylate 10 Mg Tablet) 10 mg PO DAILY [facility]; Protocol Last Admin: 08/27/24 09:47 Dose: 10 mg Documented By: RASHARD Bupropion HCl (Bupropion Hcl Xl 300 Mg Tab.Er.24h) 300 mg PO DAILY [facility] Last Admin: 08/27/24 09:47 Dose: 300 mg Documented By: RASHARD Clonidine HCl (Clonidine Hcl 0.2 Mg Tablet) 0.2 mg PO BEDTIME [facility]; Protocol Last Admin: 08/27/24 20:23 Dose: 0.2 mg Documented By: JOEL Cyanocobalamin (Cyanocobalamin (Vitamin B-12) 100 Mcg Tablet) 100 mcg PO DAILY [facility] Last Admin: 08/27/24 09:47 Dose: 100 mcg Documented By: RASHARD Doxepin HCl (Doxepin Hcl 10 Mg Capsule) 10 mg PO BEDTIME [facility] Last Admin: 08/27/24 20:23 Dose: 10 mg Documented By: JOEL Epoetin Devin-epbx (Epoetin Devin-Epbx 10,000 Unit/Ml Vial) 8,000 unit IVPUSH TuThSa@1800 [facility] Last Admin: 08/27/24 18:16 Dose: 8,000 unit Documented By: RASHARD Gabapentin (Gabapentin 600 Mg Tablet) 600 mg PO BID [facility] Last Admin: 08/27/24 20:23 Dose: 600 mg Documented By: JOEL Heparin Sodium (Porcine) (Heparin Sodium,Porcine 5,000 Unit/Ml Vial) 5,000 unit INTRACATH TUTA@1645 [facility] Last Admin: 08/27/24 17:29 Dose: Not Given Documented By: RASHARD Non-Admin Reason: dialysis Hydroxyzine HCl (Hydroxyzine Hcl 50 Mg Tablet) 50 mg PO TID PRN PRN Reason: Anxiety Last Admin: 08/27/24 20:23 Dose: 50 mg Documented By: JOEL Sodium Thiosulfate 12.5 gm/ (Sodium Chloride) 200 mls @ 400 mls/hr IV Q30M [facility] Stop: 08/18/24 23:14 Magnesium Hydroxide (Milk Of Magnesia 30 Ml Oral.Susp) 30 ml PO DAILY PRN PRN Reason: Constipation Melatonin (Melatonin 3 Mg Tablet) 6 mg PO BEDTIME PRN PRN Reason: Insomnia Meropenem (Meropenem 500 Mg Vial) 500 mg IV TUTA [facility] Last Admin: 08/27/24 22:09 Dose: 500 mg Documented By: JOEL Methadone HCl (Methadone Hcl 20 Mg/2 Ml Oral.Conc) 100 mg PO DAILY [facility] Last Admin: 08/27/24 09:48 Dose: 100 mg Documented By: RASHARD Co-signed By: SKY Methadone HCl (Methadone Hcl 20 Mg/2 Ml Oral.Conc) 95 mg PO BEDTIME [facility] Last Admin: 08/27/24 20:23 Dose: 95 mg Documented By: JOEL Co-signed By: ANTONIETA Multivitamins/Vitamin C (Multivitamin Tablet) 1 tab PO DAILY [facility] Last Admin: 08/27/24 09:47 Dose: 1 tab Documented By: RASHARD Non-Formulary Medication (Lumateperone [Caplyta]) 42 mg PO DAILY [facility] Nystatin (Nystatin Oral Susp 500,000 Unit/5 Ml Oral.Susp) 100,000 unit PO DAILY PRN; Protocol PRN Reason: FLARES Nystatin (Nystatin Powder 15 Gm Bottle) 1 appl TOPICAL BID [facility]; Protocol Last Admin: 08/27/24 20:26 Dose: Not Given Documented By: JOEL Non-Admin Reason: Patient Refused Omeprazole (Omeprazole 20 Mg Capsule.) 20 mg PO DAILY@0630 [facility] Last Admin: 08/28/24 06:18 Dose: 20 mg Documented By: JOEL Oxycodone HCl (Oxycodone Hcl Immed Release 5 Mg Tablet) 5 mg PO Q4H PRN PRN Reason: Pain, Severe (Pain Scale 7-10) Last Admin: 08/28/24 06:17 Dose: 5 mg Documented By: JOEL Polyethylene Glycol (Polyethylene Glycol 3350 17 Gm Powd.Pack) 17 gm PO DAILY PRN PRN Reason: Constipation Quetiapine Fumarate (Quetiapine Fumarate 50 Mg Tablet) 50 mg PO TID PRN PRN Reason: Anxiety Last Admin: 08/20/24 23:17 Dose: 50 mg Documented By: GEOVANNA Sodium Chloride (0.9 % Sodium Chloride Flush 3 Ml Syringe) 3 ml IVFLUSH QSHIFT [facility] Last Admin: 08/27/24 20:24 Dose: 3 ml Documented By: JOEL Sodium Hypochlorite (Sodium Hypochlorite 0.5% 473 Ml Solution) 1 appl TOPICAL DAILY [facility] Last Admin: 08/28/24 06:33 Dose: Not Given Documented By: RONN Non-Admin Reason: refused Topiramate (Topiramate 100 Mg Tablet) 100 mg PO BID [facility] Last Admin: 08/27/24 20:23 Dose: 100 mg Documented By: JOEL Trazodone HCl (Trazodone Hcl 100 Mg Tablet) 100 mg PO BEDTIME PRN PRN Reason: Insomnia Last Admin: 08/27/24 22:16 Dose: 100 mg Documented By: JOEL Vancomycin HCl (Vancomycin Hcl 125 Mg Capsule) 125 mg PO Q6H [facility] Last Admin: 08/28/24 06:14 Dose: 125 mg Documented By: JOEL Warfarin Sodium (Warfarin Sodium 2.5 Mg Tablet) 2.5 mg PO DAILY@1800 [facility] Last Admin: 08/27/24 17:33 Dose: 2.5 mg Documented By: RASHARD Estrada 08/25/24 10:24 03/27/25 06:42 Labs: Laboratory Results - last 24 hr 08/27/24 10:10 Hold Purple Top SEE NOTE PT 30.1 H INR 2.6 H Assessment and Plan (1) Clostridium difficile infection: Status: Acute (2) Calciphylaxis: Status: Acute (3) 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 Pt was transferred to [place] due to concern for right atrial mass associated dialysis catheter tip endocarditis vs thrombosus, pt transferred back to [facility] 08/18/24 for continued treatment and STR placement. Acute C diff infection Stool studies positive for C diff on 08/18 no diarrhea overnight vancomycin 125 mg p.o. q.6 ID following; continue po Vancomycin through the course of IV Abx and 2 days after. new lue swelling negative doppler Infective endocarditis with ESBL Klebsiella Bacteremia complicated with with Right atrial mass TTE at [place] showed severely dilated left atrium and left ventricle, LVEF 59%, adherent mass with mobile components of left atrium Culture positive for Klebsiella pneumoniae that has cephalosporin resistant gene positive and Pseudomonas Pt started on meropenem 500 mg IV, continue for total of 6 weeks to finish by September 18, 2024 Follow up outpatient with [place]iology [place] [facility] for repeat TTE and possible outpatient cardiac MRI Unable to discharge to home as HD center does not cover Meropenem Dilated CBD CT of abdomen and pelvis on 08/07 [place] found distended gallbladder and distal CBD dilation of 1.1 cm and possible filling deficit and distal CBD concerning for choledocholithiasis GI recommendation was for MRCP at [place], however pt refused Pt currently asymptomatic without RUQ abdominal pain, no nausea or vomiting; has been eating and drinking without issue Currently no indication for MRCP, Consider GI consult and repeat imaging if pt develops symptoms Bilateral lower extremity wounds 2/2 Calciphylaxis Continue sodium thiosulfate 25 g IV 3 times weekly after dialysis Wound care consult Analgesics for pain management Pt has so far declined debridement General surgery consult, require extensive debridement with the assistance of Plastic surgery for wound coverage in his much more extensive that can be handled at our facility. Patient will be best treated at a tertiary care center with multimodality treatment including plastic surgery and inpatient wound care. Dr Pickens thinks it is better to be done as outpatient after finishing Bacteremia treatment ESRD On HD T//Thu Anemia of chronic disease [facility] dialysis Follow CBC, transfuse as necessary HTN Continue amlodipine and clonidine Antiphospholipid syndrome Continue warfarin Daily INR with target range 2-3 GERD Continue PPI Polysubstance use disorder Continue methadone 100 mg daily and 95 mg at bedtime Mood disorder Continue hydroxyzine, trazodone, topiramate, and bupropion Full Code DVT Prophylaxis: On Warfarin reason for continued hospitalization:lue swelling Quality Stroke Does the patient have a stroke diagnosis?: No VTE Prior VTE?: No VTE Risk Level:: Medical - moderate - high VTE Device Contraindication: Treatment Not Indicated VTE Drug Contraindication: N/A - Med Ordered
[2024-08-28 10:25] VITALS: BP 152/92
[2024-08-28] MEDS: Gabapentin 600 MG TABLET PO ×2 (10:25→21:55)
[2024-08-28] MEDS: amLODIPine Besylate 10 MG TABLET PO (10:25)
[2024-08-28] MEDS: Cyanocobalamin (Vitamin B-12) 100 MCG TABLET PO (10:26)
[2024-08-28] MEDS: buPROPion HCl XL 300 MG TAB.ER.24H PO (10:26)
[2024-08-28] MEDS: Multivitamin TABLET 1 TAB PO (10:26)
[2024-08-28] MEDS: 0.9 % Sodium Chloride Flush 3 ML SYRINGE IVFLUSH ×3 (10:26→21:57)
[2024-08-28] MEDS: Topiramate 100 MG TABLET PO ×2 (10:26→21:55)
[2024-08-28] MEDS: methADONE HCl 20 MG/2 ML ORAL.CONC 100 MG PO (10:26)
[2024-08-28 11:10] LABS: INTERNATIONAL NORM RATIO 2.4 (0.9-1.1); Prothrombin Time 28.5 SEC (10.9-12.4)
[2024-08-28] MEDS: Nystatin Powder 15 GM BOTTLE 1 APPL TOPICAL ×2 (12:10→22:03)
[2024-08-28] MEDS: hydrOXYzine HCL 50 MG TABLET PO ×2 (12:48→21:54)
[2024-08-28 15:16] VITALS: BP 161/97; PULSE 83; RESP 17; TEMP 37.1; O2SAT 100
[2024-08-28] MEDS: Warfarin Sodium 2.5 MG TABLET PO (17:37)
[2024-08-28 19:45] VITALS: BP 138/88; PULSE 92; RESP 20; TEMP 37.3; O2SAT 92
[2024-08-28] MEDS: methADONE HCl 20 MG/2 ML ORAL.CONC 95 MG PO (21:54)
[2024-08-28] MEDS: traZODone HCL 100 MG TABLET PO (21:54)
[2024-08-28] MEDS: Doxepin HCl 10 MG CAPSULE PO (21:55)
[2024-08-28 21:56] VITALS: BP 138/88
[2024-08-28] MEDS: cloNIDine HCL 0.2 MG TABLET PO (21:56)
--- NOTE | 2024-08-28 22:00 | PC.NURSE ---
pt refuses to be repositioned, insists that she does it herself. Also refuses to elevate left arm that is severely edematous.
[2024-08-29 04:00] VITALS: BP 167/97; PULSE 89; RESP 18; TEMP 36.3; O2SAT 98
[2024-08-29] MEDS: Omeprazole 20 MG CAPSULE.DR PO (06:14)
[2024-08-29] MEDS: oxyCODONE HCl Immed Release 5 MG TABLET PO ×3 (07:06→17:31)
[2024-08-29 07:39] VITALS: BP 145/74; PULSE 78; RESP 16; TEMP 37.1; O2SAT 91
[2024-08-29 07:57] LABS: INTERNATIONAL NORM RATIO 2.7 (0.9-1.1); Prothrombin Time 31.4 SEC (10.9-12.4)
[2024-08-29] MEDS: amLODIPine Besylate 10 MG TABLET PO (09:01)
[2024-08-29] MEDS: Multivitamin TABLET 1 TAB PO (09:01)
[2024-08-29] MEDS: Topiramate 100 MG TABLET PO ×2 (09:01→20:08)
[2024-08-29] MEDS: Gabapentin 600 MG TABLET PO ×2 (09:01→20:08)
[2024-08-29] MEDS: buPROPion HCl XL 300 MG TAB.ER.24H PO (09:01)
[2024-08-29] MEDS: Cyanocobalamin (Vitamin B-12) 100 MCG TABLET PO (09:01)
[2024-08-29] MEDS: 0.9 % Sodium Chloride Flush 3 ML SYRINGE IVFLUSH ×3 (09:02→20:09)
[2024-08-29] MEDS: Nystatin Powder 15 GM BOTTLE 1 APPL TOPICAL ×2 (09:07→20:10)
[2024-08-29] MEDS: methADONE HCl 20 MG/2 ML ORAL.CONC 100 MG PO (09:08)
[2024-08-29] MEDS: Sodium Hypochlorite 0.5% 473 ML SOLUTION 1 APPL TOPICAL (10:52)
--- NOTE | 2024-08-29 11:40 | MHC.CM.PN ---
Patient awaiting SNF placement for STR and IV abx. Referrals updated. No bed at this time. Barriers include: methadone, HD, C diff (resolving). CM will continue to follow.
--- NOTE | 2024-08-29 11:44 | HO.PM.IMPN ---
Subjective Subjective Date of Service: 08/29/24 Interval History: diarrhea resolved Physical Exam Vital Signs: Vital Signs: Last Vital Signs Temp 98.8 F 08/29/24 07:39 Pulse 78 08/29/24 07:39 Resp 16 08/29/24 07:39 BP 145/74 H 08/29/24 07:39 Pulse Ox 91 L 08/29/24 07:39 O2 Del Method Nasal Cannula 08/29/24 07:39 O2 Flow Rate 2 08/29/24 07:39 BMI result Body Mass Index 27.4 Const: General: no acute distress Orientation/consciousness: patient oriented x3 Eyes: EOM: EOMs intact bilaterally Neck: Neck: Yes supple Resp: Auscultation: diminished lung sounds Cardio: Rate: regular rate GI: Palpation (GI): Soft to palpation Neuro: General: patient oriented x3 Objective Data Active Medications Acetaminophen (Acetaminophen 325 Mg Tablet) 650 mg PO Q6H PRN PRN Reason: Pain, Mild 1-3,fever,headache Last Admin: 08/24/24 10:35 Dose: 650 mg Documented By: PUNEET Albuterol Sulfate (Albuterol Sulfate 90 Mcg 8 Gm Inhaler) 2 puff INHALE RQ4H PRN PRN Reason: Wheezing Amlodipine Besylate (Amlodipine Besylate 10 Mg Tablet) 10 mg PO DAILY [facility]; Protocol Last Admin: 08/29/24 09:01 Dose: 10 mg Documented By: SKY Bupropion HCl (Bupropion Hcl Xl 300 Mg Tab.Er.24h) 300 mg PO DAILY [facility] Last Admin: 08/29/24 09:01 Dose: 300 mg Documented By: SKY Clonidine HCl (Clonidine Hcl 0.2 Mg Tablet) 0.2 mg PO BEDTIME [facility]; Protocol Last Admin: 08/28/24 21:56 Dose: 0.2 mg Documented By: KRISTEN Cyanocobalamin (Cyanocobalamin (Vitamin B-12) 100 Mcg Tablet) 100 mcg PO DAILY [facility] Last Admin: 08/29/24 09:01 Dose: 100 mcg Documented By: SKY Doxepin HCl (Doxepin Hcl 10 Mg Capsule) 10 mg PO BEDTIME [facility] Last Admin: 08/28/24 21:55 Dose: 10 mg Documented By: KRISTEN Epoetin Devin-epbx (Epoetin Devin-Epbx 10,000 Unit/Ml Vial) 8,000 unit IVPUSH TuThSa@1800 [facility] Last Admin: 08/27/24 18:16 Dose: 8,000 unit Documented By: RASHARD Gabapentin (Gabapentin 600 Mg Tablet) 600 mg PO BID [facility] Last Admin: 08/29/24 09:01 Dose: 600 mg Documented By: SKY Heparin Sodium (Porcine) (Heparin Sodium,Porcine 5,000 Unit/Ml Vial) 5,000 unit INTRACATH TUTA@1645 [facility] Last Admin: 08/27/24 17:29 Dose: Not Given Documented By: RASHARD Non-Admin Reason: dialysis Hydroxyzine HCl (Hydroxyzine Hcl 50 Mg Tablet) 50 mg PO TID PRN PRN Reason: Anxiety Last Admin: 08/28/24 21:54 Dose: 50 mg Documented By: KRISTEN Sodium Thiosulfate 12.5 gm/ (Sodium Chloride) 200 mls @ 400 mls/hr IV Q30M [facility] Stop: 08/18/24 23:14 Magnesium Hydroxide (Milk Of Magnesia 30 Ml Oral.Susp) 30 ml PO DAILY PRN PRN Reason: Constipation Melatonin (Melatonin 3 Mg Tablet) 6 mg PO BEDTIME PRN PRN Reason: Insomnia Methadone HCl (Methadone Hcl 20 Mg/2 Ml Oral.Conc) 100 mg PO DAILY [facility] Last Admin: 08/29/24 09:08 Dose: 100 mg Documented By: SKY Co-signed By: ESAU Methadone HCl (Methadone Hcl 20 Mg/2 Ml Oral.Conc) 95 mg PO BEDTIME [facility] Last Admin: 08/28/24 21:54 Dose: 95 mg Documented By: KRISTEN Co-signed By: GERRY Multivitamins/Vitamin C (Multivitamin Tablet) 1 tab PO DAILY [facility] Last Admin: 08/29/24 09:01 Dose: 1 tab Documented By: SKY Non-Formulary Medication (Lumateperone [Caplyta]) 42 mg PO DAILY [facility] Nystatin (Nystatin Oral Susp 500,000 Unit/5 Ml Oral.Susp) 100,000 unit PO DAILY PRN; Protocol PRN Reason: FLARES Nystatin (Nystatin Powder 15 Gm Bottle) 1 appl TOPICAL BID [facility]; Protocol Last Admin: 08/29/24 09:07 Dose: 1 appl Documented By: SKY Omeprazole (Omeprazole 20 Mg Capsule.) 20 mg PO DAILY@0630 [facility] Last Admin: 08/29/24 06:14 Dose: 20 mg Documented By: KRISTEN Oxycodone HCl (Oxycodone Hcl Immed Release 5 Mg Tablet) 5 mg PO Q4H PRN PRN Reason: Pain, Severe (Pain Scale 7-10) Last Admin: 08/29/24 11:07 Dose: 5 mg Documented By: SKY Polyethylene Glycol (Polyethylene Glycol 3350 17 Gm Powd.Pack) 17 gm PO DAILY PRN PRN Reason: Constipation Quetiapine Fumarate (Quetiapine Fumarate 50 Mg Tablet) 50 mg PO TID PRN PRN Reason: Anxiety Last Admin: 08/20/24 23:17 Dose: 50 mg Documented By: GEOVANNA Sodium Chloride (0.9 % Sodium Chloride Flush 3 Ml Syringe) 3 ml IVFLUSH QSHIFT [facility] Last Admin: 08/29/24 09:02 Dose: 3 ml Documented By: SKY Sodium Hypochlorite (Sodium Hypochlorite 0.5% 473 Ml Solution) 1 appl TOPICAL DAILY [facility] Last Admin: 08/29/24 10:52 Dose: 1 appl Documented By: SKY Topiramate (Topiramate 100 Mg Tablet) 100 mg PO BID [facility] Last Admin: 08/29/24 09:01 Dose: 100 mg Documented By: SKY Trazodone HCl (Trazodone Hcl 100 Mg Tablet) 100 mg PO BEDTIME PRN PRN Reason: Insomnia Last Admin: 08/28/24 21:54 Dose: 100 mg Documented By: KRISTEN Warfarin Sodium (Warfarin Sodium 2.5 Mg Tablet) 2.5 mg PO DAILY@1800 [facility] Last Admin: 08/28/24 17:37 Dose: 2.5 mg Documented By: RASHARD Labs 08/25/24 10:24 08/25/24 06:42 Labs: Laboratory Results - last 24 hr 08/29/24 07:36 Hold Purple Top SEE NOTE PT 31.4 H INR 2.7 H Assessment and Plan (1) Clostridium difficile infection: Status: Acute (2) Calciphylaxis: Status: Acute (3) 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 Pt was transferred to [facility] due to concern for right atrial mass associated dialysis catheter tip endocarditis vs thrombosus, pt transferred back to [facility] 08/18/24 for continued treatment and STR placement. Acute C diff infection Stool studies positive for C diff on 08/18 no diarrhea overnight vancomycin 125 mg p.o. q.6 ID following; continue po Vancomycin through the course of IV Abx and 2 days after. new lue swelling negative doppler Infective endocarditis with ESBL Klebsiella Bacteremia complicated with with Right atrial mass TTE at [facility] showed severely dilated left atrium and left ventricle, LVEF 59%, adherent mass with mobile components of left atrium Culture positive for Klebsiella pneumoniae that has cephalosporin resistant gene positive and Pseudomonas Pt started on meropenem 500 mg IV, continue for total of 6 weeks to finish by September 18, 2024 Follow up outpatient with Cardiology at [facility] after discharge for repeat TTE and possible outpatient cardiac MRI Unable to discharge to home as HD center does not cover Meropenem Dilated CBD CT of abdomen and pelvis on 08/07 [facility] found distended gallbladder and distal CBD dilation of 1.1 cm and possible filling deficit and distal CBD concerning for choledocholithiasis GI recommendation was for MRCP at [facility], however pt refused Pt currently asymptomatic without RUQ abdominal pain, no nausea or vomiting; has been eating and drinking without issue Currently no indication for MRCP, Consider GI consult and repeat imaging if pt develops symptoms Bilateral lower extremity wounds 2/2 Calciphylaxis Continue sodium thiosulfate 25 g IV 3 times weekly after dialysis Wound care consult Analgesics for pain management Pt has so far declined debridement General surgery consult, require extensive debridement with the assistance of Plastic surgery for wound coverage in his much more extensive that can be handled at our facility. Patient will be best treated at a tertiary care center with multimodality treatment including plastic surgery and inpatient wound care. Dr Pickens thinks it is better to be done as outpatient after finishing Bacteremia treatment ESRD On HD T//Thu Anemia of chronic disease S/p 3 units PRBCs at [facility] Retacrit 8000 units x3 weekly post dialysis Follow CBC, transfuse as necessary HTN Continue amlodipine and clonidine Antiphospholipid syndrome Continue warfarin Daily INR with target range 2-3 GERD Continue PPI Polysubstance use disorder Continue methadone 100 mg daily and 95 mg at bedtime Mood disorder Continue hydroxyzine, trazodone, topiramate, and bupropion Full Code DVT Prophylaxis: On Warfarin reason for continued hospitalization:lue swelling Quality Stroke Does the patient have a stroke diagnosis?: No VTE Prior VTE?: No VTE Risk Level:: Medical - moderate - high VTE Device Contraindication: Treatment Not Indicated VTE Drug Contraindication: N/A - Med Ordered
[2024-08-29] MEDS: hydrOXYzine HCL 50 MG TABLET PO ×2 (12:22→20:08)
--- NOTE | 2024-08-29 12:30 | P.PNNP_ITS ---
Subjective Subjective Date of Service: 08/29/24 Interval history: Diarrhea resolved. Due HD tomorrow Physical Exam 2 Vital Signs: Vital Signs: Last Vital Signs Temp 98.8 F 08/29/24 07:39 Pulse 78 08/29/24 07:39 Resp 16 08/29/24 07:39 BP 145/74 H 08/29/24 07:39 Pulse Ox 91 L 08/29/24 07:39 O2 Del Method Nasal Cannula 08/29/24 07:39 O2 Flow Rate 2 08/29/24 07:39 BMI result Body Mass Index 27.4 Const: General: no acute distress Eyes: EOM: EOMs intact bilaterally Resp: Auscultation: diminished lung sounds Cardio: Rate: regular rate GI: Palpation (GI): Soft to palpation Neuro: General: moves all extremities Objective Data Labs 08/25/24 10:24 08/25/24 06:42 Labs: Laboratory Results - last 24 hr 08/29/24 07:36 Hold Purple Top SEE NOTE PT 31.4 H INR 2.7 H Microbiology Microbiology Results: Microbiology 08/18/24 19:34 Blood - Venous Blood Culture - Final No growth after 5 days. 08/18/24 19:34 Blood - Venous Blood Culture - Final No growth after 5 days. Procedures Date of Service Date of Service: 08/29/24 Assessment & Plan Assessment and plan (1) End stage renal disease on dialysis: Status: Acute Plan Usually gets HD on TTS Has a functioning HD catheter Na thiosulphate TTS as ordered No Vitamin D , calcitriol or ca based binders Phos binders with meals Procrit 83298 U 3 times a week TTS Antibiotics as ordered. Needs cards F/U Shall follow along Progress Note: Quality Stroke Does the patient have a stroke diagnosis?: No
--- NOTE | 2024-08-29 13:39 | HO.WOUND ---
Wound Consult: Follow up 43yr old female? admitted to [facility] [place]18[place]24 - See progress notes and H&P for detailed history.? Wound consult follow up for Bilateral Legs and Posterior hip flank sites.? Chart review reveals patient continues to refuse dressing changes often. The patient and I had a margy conversation regarding concerns with dressing refusals and infection. She reports she has not refused dressing changes and she recalls they are done often. Chart review does not support this. They appear they are often not completed due to patient refusal. The patient was educated on the importance of proper wound care and the concern for wound infection should the bilateral hip dressings not be changed. She reports the Dakins is not comfortable to her, we discussed the benefits to the wund beds to treat suspected pseudomonas invasion given the green blue drainage. We did discuss if she was switched to NS and it would increase her compliance it is an alternative we could explore - she reported she would prefer to stick with Dakins at this time. Bilateral lower legs can be extended to every other day - but they continue to be concerning over all. There are areas where the black eschar is moist and yellow wlough with lifting edges. Continue xerorofm to moist areas and keep stable black areas dry with dry gauze dressing. Agility pulsate bed in use. No new topical recommendations made at this time. Some improvement noted to yellow moist slough. Rigt Flank - Little to no change noted. Right Lower Leg Recommendations: 1. Turn and Reposition every 2 hours and as needed for patient comfort.? Use pillows or wedges to support off loading positions. 2. Off Load all bony prominences with use of pillows and heel boots if needed.? Apply Preventative foams where needed. ? 3. Monitor for incontinence and moisture control, use barrier creams when needed for prevention and treatment. 4. Provide adequate and supplemental nutrition.? 5. Continue low air loss mattress. 6. When applicable maintain blood glucose levels per Providers order. 7. Bilateral Lower Legs - Cleanse with NS moist gauze, dry well. Apply skin prep to periwound. Cover moist wounds with single layer of Xeroform followed by Gauze, ABD pad and wrap. Change every other day. May cover black dry eschar with dry gauze only. 8. Posterior Hip and Flank area - Off load pressure with Q2hr turns and pillows. Cleanse with Dakins moist gauze, Apply thick barrier to wound edges, apply Dakins moist gauze to wound beds, cover with dry gauze, ABD pads. Change daily. 9. Bilateral Ischium and coccyx - Apply skin prep, cover with foam dressing. Change every 5 days and PRN. 10. Perineal - Apply antifungal per provider order. Recommend follow up out patient Wound Clinic at [address] [place] [id number] and to call for an appointment at time of discharge. [phone].? day. 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 TT to provider. Left Leg Right Leg Right Medial Leg - with small area of moist yellow slough Bilateral Legs Etiology: ?Unclear Etiology Wound Bed: mostly dry stable necrotic eschar small areas of moist lifted eschar reveals yellow slough Drainage / Odor: small amount of ten drainage Edges: ? irregular and rolled Rekha wound: ? swelling noted Pain: extreme pain reported Goals of Treatment: ? request for general surgery to assess - dry dressing vs xeroform to keep eschar stable and intact for autolytic debridement Right Side Left Side Posterior Hip Flank area Etiology: ?Unclear Etiology Wound Bed: various stages of necrotic slough Drainage / Odor: yellow corey green blue drainage indicative of pseudomonas Edges: ? irregular and atypical Rekha wound: ? No Induration or Warmth noted Pain: extreme pain reported Goals of Treatment: ?Dakins wet to moist dressing and request for general surgery to assess Recommendations: 1. Turn and Reposition every 2 hours and as needed for patient comfort.? Use pillows or wedges to support off loading positions. 2. Off Load all bony prominences with use of pillows and heel boots if needed.? Apply Preventative foams where needed. ? 3. Monitor for incontinence and moisture control, use barrier creams when needed for prevention and treatment. 4. Provide adequate and supplemental nutrition.? 5. Continue low air loss mattress. 6. When applicable maintain blood glucose levels per Providers order. 7. Bilateral Lower Legs and - Cleanse with Ns moist gauze, dry well. Apply skin prep to periwound. Cover wounds with single layer of Xeroform followed by Gauze, ABD pad and wrap. May use foam dressing to posterior hip/ flank to aid in pressure redistribution. 8. Posterior Hip and Flank area - Off load pressure with Q2hr turns and pillows. Cleanse with Dakins moist gauze, Apply skin barrier to wound edges, apply Dakins moist gauze to wound beds, cover with dry gauze, ABD pads. Change daily. 9. Bilateral Ischium and coccyx - Apply skin prep, cover with foam dressing. Change every 5 days and PRN. 10. Perineal - Apply antifungal per provider order. Recommend follow up out patient Wound Clinic at [address] [place] [id number] and to call for an appointment at time of discharge. [phone].? Re-consult wound care Nurse for wound deterioration or wound changes.
--- NOTE | 2024-08-29 14:01 | MHC.CLN ---
F/U DIET=REGULAR. STRAWBERRY ENSURE TID PER PATIENT PREFERENCE. SUPPLEMENT PROVIDES 1050 KCALS, 60 G PROTEIN. MOST RECENT INTAKE 50-100% SKIN WITH STAGE III PI TO L ISCHIUM AND STAGE II PI TO R ISCHIUM. PATIENT WITH ESRD ON HEMODIALYSIS. SUPPLEMENT TO PROMOTE NUTRITIONAL INTAKE/WOUND HEALING. FOLLOW FOR PO INTAKE AND SKIN INTEGRITY.
[2024-08-29 15:28] VITALS: BP 143/94; PULSE 79; RESP 18; TEMP 36.6; O2SAT 95
[2024-08-29] MEDS: Warfarin Sodium 2.5 MG TABLET PO (17:27)
[2024-08-29 19:22] VITALS: BP 140/88; PULSE 72; RESP 20; TEMP 36.8; O2SAT 94
[2024-08-29] MEDS: methADONE HCl 20 MG/2 ML ORAL.CONC 95 MG PO (20:04)
[2024-08-29 20:08] VITALS: BP 140/88
[2024-08-29] MEDS: cloNIDine HCL 0.2 MG TABLET PO (20:08)
[2024-08-29] MEDS: traZODone HCL 100 MG TABLET PO (20:08)
[2024-08-29] MEDS: Melatonin 3 MG TABLET 6 MG PO (20:08)
[2024-08-29] MEDS: Doxepin HCl 10 MG CAPSULE PO (20:08)
[2024-08-30 03:22] VITALS: BP 151/76; PULSE 73; RESP 20; TEMP 37.1; O2SAT 94
[2024-08-30] MEDS: Omeprazole 20 MG CAPSULE.DR PO (05:48)
[2024-08-30 07:34] VITALS: BP 156/97; PULSE 70; RESP 18; TEMP 36.6; O2SAT 94
[2024-08-30] MEDS: oxyCODONE HCl Immed Release 5 MG TABLET PO ×3 (07:36→22:04)
[2024-08-30] MEDS: hydrOXYzine HCL 50 MG TABLET PO ×3 (07:36→22:04)
[2024-08-30 10:09] VITALS: BP 167/90; PULSE 74; RESP 16; O2SAT 94
[2024-08-30] MEDS: Nystatin Powder 15 GM BOTTLE 1 APPL TOPICAL (10:25)
[2024-08-30] MEDS: Cyanocobalamin (Vitamin B-12) 100 MCG TABLET PO (10:26)
[2024-08-30] MEDS: Topiramate 100 MG TABLET PO ×2 (10:26→21:59)
[2024-08-30] MEDS: Gabapentin 600 MG TABLET PO ×2 (10:26→21:59)
[2024-08-30] MEDS: Multivitamin TABLET 1 TAB PO (10:26)
[2024-08-30] MEDS: methADONE HCl 20 MG/2 ML ORAL.CONC 100 MG PO (10:26)
[2024-08-30] MEDS: buPROPion HCl XL 300 MG TAB.ER.24H PO (10:26)
[2024-08-30] MEDS: amLODIPine Besylate 10 MG TABLET PO (10:26)
--- NOTE | 2024-08-30 11:29 | P.PNIM_ITS ---
Subjective Subjective Date of Service: 08/30/24 Interval History: diarrhea resolved Physical Exam 2 Vital Signs: Vital Signs: Last Vital Signs Temp 97.9 F 08/30/24 07:34 Pulse 74 08/30/24 10:09 Resp 16 08/30/24 10:09 BP 167/90 H 08/30/24 10:09 Pulse Ox 94 08/30/24 10:09 O2 Del Method Room Air 08/30/24 10:09 O2 Flow Rate 2 08/30/24 03:22 BMI result Body Mass Index 27.4 Const: General: no acute distress Eyes: EOM: EOMs intact bilaterally Resp: Auscultation: diminished lung sounds Cardio: Rate: regular rate GI: Palpation (GI): Soft to palpation Neuro: General: moves all extremities Objective Data Active Medications Acetaminophen (Acetaminophen 325 Mg Tablet) 650 mg PO Q6H PRN PRN Reason: Pain, Mild 1-3,fever,headache Last Admin: 08/24/24 10:35 Dose: 650 mg Documented By: PUNEET Albuterol Sulfate (Albuterol Sulfate 90 Mcg 8 Gm Inhaler) 2 puff INHALE RQ4H PRN PRN Reason: Wheezing Amlodipine Besylate (Amlodipine Besylate 10 Mg Tablet) 10 mg PO DAILY [facility]; Protocol Last Admin: 08/30/24 10:26 Dose: 10 mg Documented By: ANDREW Bupropion HCl (Bupropion Hcl Xl 300 Mg Tab.Er.24h) 300 mg PO DAILY [facility] Last Admin: 08/30/24 10:26 Dose: 300 mg Documented By: ANDREW Clonidine HCl (Clonidine Hcl 0.2 Mg Tablet) 0.2 mg PO BEDTIME [facility]; Protocol Last Admin: 08/29/24 20:08 Dose: 0.2 mg Documented By: KRISTEN Cyanocobalamin (Cyanocobalamin (Vitamin B-12) 100 Mcg Tablet) 100 mcg PO DAILY [facility] Last Admin: 08/30/24 10:26 Dose: 100 mcg Documented By: ANDREW Doxepin HCl (Doxepin Hcl 10 Mg Capsule) 10 mg PO BEDTIME [facility] Last Admin: 08/29/24 20:08 Dose: 10 mg Documented By: KRISTEN Epoetin Devin-epbx (Epoetin Devin-Epbx 10,000 Unit/Ml Vial) 8,000 unit IVPUSH TuThSa@1800 [facility] Last Admin: 08/27/24 18:16 Dose: 8,000 unit Documented By: RASHARD Gabapentin (Gabapentin 600 Mg Tablet) 600 mg PO BID [facility] Last Admin: 08/30/24 10:26 Dose: 600 mg Documented By: ANDREW Heparin Sodium (Porcine) (Heparin Sodium,Porcine 5,000 Unit/Ml Vial) 5,000 unit INTRACATH TUTHSA@1645 [facility] Last Admin: 08/27/24 17:29 Dose: Not Given Documented By: RASHARD Non-Admin Reason: dialysis Hydroxyzine HCl (Hydroxyzine Hcl 50 Mg Tablet) 50 mg PO TID PRN PRN Reason: Anxiety Last Admin: 08/30/24 07:36 Dose: 50 mg Documented By: ANDREW Sodium Thiosulfate 12.5 gm/ (Sodium Chloride) 200 mls @ 400 mls/hr IV Q30M [facility] Stop: 08/18/24 23:14 Magnesium Hydroxide (Milk Of Magnesia 30 Ml Oral.Susp) 30 ml PO DAILY PRN PRN Reason: Constipation Melatonin (Melatonin 3 Mg Tablet) 6 mg PO BEDTIME PRN PRN Reason: Insomnia Last Admin: 08/29/24 20:08 Dose: 6 mg Documented By: KRISTEN Meropenem (Meropenem 500 Mg Vial) 500 mg IV TuThSa@1800 [facility] Stop: 09/30/24 17:59 Methadone HCl (Methadone Hcl 20 Mg/2 Ml Oral.Conc) 100 mg PO DAILY [facility] Last Admin: 08/30/24 10:26 Dose: 100 mg Documented By: ANDREW Co-signed By: POONAM Methadone HCl (Methadone Hcl 20 Mg/2 Ml Oral.Conc) 95 mg PO BEDTIME [facility] Last Admin: 08/29/24 20:04 Dose: 95 mg Documented By: KRISTEN Co-signed By: GEOVANNA Multivitamins/Vitamin C (Multivitamin Tablet) 1 tab PO DAILY [facility] Last Admin: 08/30/24 10:26 Dose: 1 tab Documented By: ANDREW Non-Formulary Medication (Lumateperone [Caplyta]) 42 mg PO DAILY [facility] Nystatin (Nystatin Oral Susp 500,000 Unit/5 Ml Oral.Susp) 100,000 unit PO DAILY PR[facility]; Protocol PRN Reason: FLARES Nystatin (Nystatin Powder 15 Gm Bottle) 1 appl TOPICAL BID [facility]; Protocol Last Admin: 08/30/24 10:25 Dose: 1 appl Documented By: ANDREW Omeprazole (Omeprazole 20 Mg Capsule.Dr) 20 mg PO DAILY@0630 [facility] Last Admin: 08/30/24 05:48 Dose: 20 mg Documented By: KRISTEN Oxycodone HCl (Oxycodone Hcl Immed Release 5 Mg Tablet) 5 mg PO Q4H PRN PRN Reason: Pain, Severe (Pain Scale 7-10) Last Admin: 08/30/24 07:36 Dose: 5 mg Documented By: ANDREW Polyethylene Glycol (Polyethylene Glycol 3350 17 Gm Powd.Pack) 17 gm PO DAILY PRN PRN Reason: Constipation Quetiapine Fumarate (Quetiapine Fumarate 50 Mg Tablet) 50 mg PO TID PRN PRN Reason: Anxiety Last Admin: 08/20/24 23:17 Dose: 50 mg Documented By: GEOVANNA Sodium Chloride (0.9 % Sodium Chloride Flush 3 Ml Syringe) 3 ml IVFLUSH QSHIFT [facility] Last Admin: 08/30/24 09:20 Dose: Not Given Documented By: ANDREW Non-Admin Reason: Previously Administered Sodium Hypochlorite (Sodium Hypochlorite 0.5% 473 Ml Solution) 1 appl TOPICAL DAILY [facility] Last Admin: 08/29/24 10:52 Dose: 1 appl Documented By: SKY Topiramate (Topiramate 100 Mg Tablet) 100 mg PO BID [facility] Last Admin: 08/30/24 10:26 Dose: 100 mg Documented By: ANDREW Trazodone HCl (Trazodone Hcl 100 Mg Tablet) 100 mg PO BEDTIME PRN PRN Reason: Insomnia Last Admin: 08/29/24 20:08 Dose: 100 mg Documented By: KRISTEN Warfarin Sodium (Warfarin Sodium 2.5 Mg Tablet) 2.5 mg PO DAILY@1800 [facility] Last Admin: 08/29/24 17:27 Dose: 2.5 mg Documented By: SKY Labs 08/25/24 10:24 08/25/24 06:42 Assessment and Plan (1) Clostridium difficile infection: Status: Acute (2) Calciphylaxis: Status: Acute (3) 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 Pt was transferred to [place] due to concern for right atrial mass associated dialysis catheter tip endocarditis vs thrombosus, pt transferred back to [facility] 08/18/24 for continued treatment and STR placement. Acute C diff infection Stool studies positive for C diff on 08/18 no diarrhea overnight vancomycin 125 mg p.o. q.6 ID following; continue po Vancomycin through the course of IV Abx and 2 days after. new lue swelling negative doppler Infective endocarditis with ESBL Klebsiella Bacteremia complicated with with Right atrial mass TTE at [place] showed severely dilated left atrium and left ventricle, LVEF 59%, adherent mass with mobile components of left atrium Culture positive for Klebsiella pneumoniae that has cephalosporin resistant gene positive and Pseudomonas Pt started on meropenem 500 mg IV, continue for total of 6 weeks to finish by September 18, 2024 Follow up outpatient with Cardiology at [facility] after discharge for repeat TTE and possible outpatient cardiac MRI Unable to discharge to home as HD center does not cover Meropenem Dilated CBD CT of abdomen and pelvis on 08/07 [place] found distended gallbladder and distal CBD dilation of 1.1 cm and possible filling deficit and distal CBD concerning for choledocholithiasis GI recommendation was for MRCP at [place], however pt refused Pt currently asymptomatic without RUQ abdominal pain, no nausea or vomiting; has been eating and drinking without issue Currently no indication for MRCP, Consider GI consult and repeat imaging if pt develops symptoms Bilateral lower extremity wounds 2/2 Calciphylaxis Continue sodium thiosulfate 25 g IV 3 times weekly after dialysis Wound care consult Analgesics for pain management Pt has so far declined debridement General surgery consult, require extensive debridement with the assistance of Plastic surgery for wound coverage in his much more extensive that can be handled at our facility. Patient will be best treated at a tertiary care center with multimodality treatment including plastic surgery and inpatient wound care. Dr Pickens thinks it is better to be done as outpatient after finishing Bacteremia treatment ESRD On HD T//Thu Anemia of chronic disease S/p 3 units PRBCs at [facility] 8000 units x3 weekly post dialysis Follow CBC, transfuse as necessary HTN Continue amlodipine and clonidine Antiphospholipid syndrome Continue warfarin Daily INR with target range 2-3 GERD Continue PPI Polysubstance use disorder Continue methadone 100 mg daily and 95 mg at bedtime Mood disorder Continue hydroxyzine, trazodone, topiramate, and bupropion Full Code DVT Prophylaxis: On Warfarin reason for continued hospitalization:lue swelling Quality Stroke Does the patient have a stroke diagnosis?: No VTE Prior VTE?: No VTE Risk Level:: Medical - moderate - high VTE Device Contraindication: Treatment Not Indicated VTE Drug Contraindication: N/A - Med Ordered
[2024-08-30 13:19] LABS: INTERNATIONAL NORM RATIO 2.9 (0.9-1.1); Prothrombin Time 33.3 SEC (10.9-12.4)
--- NOTE | 2024-08-30 13:29 | P.PNNP_ITS ---
Subjective Subjective Date of Service: 08/30/24 Interval history: Diarrhea resolved. Due HD Physical Exam 2 Vital Signs: Vital Signs: Last Vital Signs Temp 97.9 F 08/30/24 07:34 Pulse 74 08/30/24 10:09 Resp 16 08/30/24 10:09 BP 167/90 H 08/30/24 10:09 Pulse Ox 94 08/30/24 10:09 O2 Del Method Room Air 08/30/24 10:09 O2 Flow Rate 2 08/30/24 03:22 BMI result Body Mass Index 27.4 Const: General: no acute distress Orientation/consciousness: patient oriented x3 Eyes: EOM: EOMs intact bilaterally Neck: Neck: Yes supple Resp: Auscultation: diminished lung sounds Cardio: Rate: regular rate GI: Palpation (GI): Soft to palpation Neuro: General: patient oriented x3 Objective Data Labs 08/25/24 10:24 08/25/24 06:42 Labs: Laboratory Results - last 24 hr 08/30/24 13:00 Hold Purple Top SEE NOTE PT 33.3 H INR 2.9 H Microbiology Microbiology Results: Microbiology 08/18/24 19:34 Blood - Venous Blood Culture - Final No growth after 5 days. 08/18/24 19:34 Blood - Venous Blood Culture - Final No growth after 5 days. Procedures Date of Service Date of Service: 08/30/24 Assessment & Plan Assessment and plan (1) End stage renal disease on dialysis: Status: Acute Plan Usually gets HD on TTS Has a functioning HD catheter Na thiosulphate TTS as ordered No Vitamin D , calcitriol or ca based binders Phos binders with meals Procrit 93994 U 3 times a week TTS Antibiotics as ordered. Needs cards F/U Shall follow along Progress Note: Quality Stroke Does the patient have a stroke diagnosis?: No
[2024-08-30 16:40] VITALS: BP 171/91; PULSE 80; RESP 18; TEMP 36.6; O2SAT 96
[2024-08-30] MEDS: 0.9 % Sodium Chloride Flush 3 ML SYRINGE IVFLUSH (18:34)
[2024-08-30] MEDS: Meropenem 500 MG VIAL IV (18:34)
[2024-08-30 19:24] VITALS: BP 155/90; PULSE 74; RESP 14; TEMP 36.6; O2SAT 97
[2024-08-30] MEDS: SODIUM THIOSULFATE IV ×2 (20:36→21:08)
[2024-08-30] MEDS: SODIUM CHLORIDE 0.9% IV ×2 (20:36→21:08)
[2024-08-30] MEDS: methADONE HCl 20 MG/2 ML ORAL.CONC 95 MG PO (21:58)
[2024-08-30] MEDS: Doxepin HCl 10 MG CAPSULE PO (21:59)
[2024-08-30] MEDS: cloNIDine HCL 0.2 MG TABLET PO (21:59)
[2024-08-30] MEDS: traZODone HCL 100 MG TABLET PO (21:59)
[2024-08-30] MEDS: Epoetin Alfa-epbx 10,000 UNIT/ML VIAL 8000 UNIT IVPUSH (22:01)
[2024-08-31 03:24] VITALS: BP 126/80; PULSE 88; RESP 18; TEMP 37.3; O2SAT 93
[2024-08-31] MEDS: oxyCODONE HCl Immed Release 5 MG TABLET PO ×4 (05:37→18:18)
[2024-08-31] MEDS: Omeprazole 20 MG CAPSULE.DR PO (05:37)
[2024-08-31 07:33] VITALS: BP 173/94; PULSE 87; RESP 18; TEMP 37.4; O2SAT 92
[2024-08-31] MEDS: amLODIPine Besylate 10 MG TABLET PO (07:41)
[2024-08-31] MEDS: Gabapentin 600 MG TABLET PO ×2 (07:42→19:43)
[2024-08-31] MEDS: methADONE HCl 20 MG/2 ML ORAL.CONC 100 MG PO (07:42)
[2024-08-31] MEDS: Topiramate 100 MG TABLET PO ×2 (07:42→19:43)
[2024-08-31] MEDS: buPROPion HCl XL 300 MG TAB.ER.24H PO (07:42)
[2024-08-31] MEDS: Cyanocobalamin (Vitamin B-12) 100 MCG TABLET PO (07:42)
[2024-08-31] MEDS: Multivitamin TABLET 1 TAB PO (07:42)
[2024-08-31] MEDS: 0.9 % Sodium Chloride Flush 3 ML SYRINGE IVFLUSH ×3 (07:45→19:43)
[2024-08-31] MEDS: Nystatin Powder 15 GM BOTTLE 1 APPL TOPICAL (07:52)
--- NOTE | 2024-08-31 09:19 | P.PNIM_ITS ---
Subjective Subjective Date of Service: 08/31/24 Interval History: diarrhea resolved Physical Exam 2 Vital Signs: Vital Signs: Last Vital Signs Temp 99.4 F 08/31/24 07:33 Pulse 87 08/31/24 07:33 Resp 18 08/31/24 07:33 BP 173/94 H 08/31/24 07:33 Pulse Ox 92 08/31/24 07:33 O2 Del Method Room Air 08/31/24 07:33 O2 Flow Rate 2 08/30/24 19:24 BMI result Body Mass Index 27.4 Const: General: no acute distress Orientation/consciousness: patient oriented x3 Eyes: EOM: EOMs intact bilaterally Neck: Neck: Yes supple Resp: Auscultation: diminished lung sounds Cardio: Rate: regular rate GI: Palpation (GI): Soft to palpation Neuro: General: patient oriented x3 Objective Data Active Medications Acetaminophen (Acetaminophen 325 Mg Tablet) 650 mg PO Q6H PRN PRN Reason: Pain, Mild 1-3,fever,headache Last Admin: 08/24/24 10:35 Dose: 650 mg Documented By: PUNEET Albuterol Sulfate (Albuterol Sulfate 90 Mcg 8 Gm Inhaler) 2 puff INHALE RQ4H PRN PRN Reason: Wheezing Amlodipine Besylate (Amlodipine Besylate 10 Mg Tablet) 10 mg PO DAILY [facility]; Protocol Last Admin: 08/31/24 07:41 Dose: 10 mg Documented By: GEETHA Bupropion HCl (Bupropion Hcl Xl 300 Mg Tab.Er.24h) 300 mg PO DAILY [facility] Last Admin: 08/31/24 07:42 Dose: 300 mg Documented By: GEETHA Clonidine HCl (Clonidine Hcl 0.2 Mg Tablet) 0.2 mg PO BEDTIME [facility]; Protocol Last Admin: 08/30/24 21:59 Dose: 0.2 mg Documented By: GERRY Cyanocobalamin (Cyanocobalamin (Vitamin B-12) 100 Mcg Tablet) 100 mcg PO DAILY [facility] Last Admin: 08/31/24 07:42 Dose: 100 mcg Documented By: GEETHA Doxepin HCl (Doxepin Hcl 10 Mg Capsule) 10 mg PO BEDTIME [facility] Last Admin: 08/30/24 21:59 Dose: 10 mg Documented By: GERRY Epoetin Devin-epbx (Epoetin Devin-Epbx 10,000 Unit/Ml Vial) 8,000 unit IVPUSH TuThSa@1800 [facility] Last Admin: 08/30/24 22:01 Dose: 8,000 unit Documented By: GERRY Gabapentin (Gabapentin 600 Mg Tablet) 600 mg PO BID [facility] Last Admin: 08/31/24 07:42 Dose: 600 mg Documented By: GEETHA Heparin Sodium (Porcine) (Heparin Sodium,Porcine 5,000 Unit/Ml Vial) 5,000 unit INTRACATH TUTA@1645 [facility] Last Admin: 08/27/24 17:29 Dose: Not Given Documented By: RASHARD Non-Admin Reason: dialysis Hydroxyzine HCl (Hydroxyzine Hcl 50 Mg Tablet) 50 mg PO TID PRN PRN Reason: Anxiety Last Admin: 08/30/24 22:04 Dose: 50 mg Documented By: GERRY Sodium Thiosulfate 12.5 gm/ (Sodium Chloride) 200 mls @ 400 mls/hr IV Q30M [facility] Stop: 08/18/24 23:14 Magnesium Hydroxide (Milk Of Magnesia 30 Ml Oral.Susp) 30 ml PO DAILY PRN PRN Reason: Constipation Melatonin (Melatonin 3 Mg Tablet) 6 mg PO BEDTIME PRN PRN Reason: Insomnia Last Admin: 08/29/24 20:08 Dose: 6 mg Documented By: KRISTEN Meropenem (Meropenem 500 Mg Vial) 500 mg IV TuThSa@1800 [facility] Stop: 09/30/24 17:59 Last Admin: 08/30/24 18:34 Dose: 500 mg Documented By: CALEB Methadone HCl (Methadone Hcl 20 Mg/2 Ml Oral.Conc) 100 mg PO DAILY [facility] Last Admin: 08/31/24 07:42 Dose: 100 mg Documented By: GEETHA Co-signed By: ESAU Methadone HCl (Methadone Hcl 20 Mg/2 Ml Oral.Conc) 95 mg PO BEDTIME [facility] Last Admin: 08/30/24 21:58 Dose: 95 mg Documented By: GERRY Co-signed By: GEOVANNA Multivitamins/Vitamin C (Multivitamin Tablet) 1 tab PO DAILY [facility] Last Admin: 08/31/24 07:42 Dose: 1 tab Documented By: GEETHA Non-Formulary Medication (Lumateperone [Caplyta]) 42 mg PO DAILY [facility] Nystatin (Nystatin Oral Susp 500,000 Unit/5 Ml Oral.Susp) 100,000 unit PO DAILY [facility]; Protocol PRN Reason: FLARES Nystatin (Nystatin Powder 15 Gm Bottle) 1 appl TOPICAL BID [facility]; Protocol Last Admin: 08/31/24 07:52 Dose: 1 appl Documented By: GEETHA Omeprazole (Omeprazole 20 Mg Capsule.Dr) 20 mg PO DAILY@0630 [facility] Last Admin: 08/31/24 05:37 Dose: 20 mg Documented By: GERRY Oxycodone HCl (Oxycodone Hcl Immed Release 5 Mg Tablet) 5 mg PO Q4H PRN PRN Reason: Pain, Severe (Pain Scale 7-10) Last Admin: 08/31/24 05:37 Dose: 5 mg Documented By: GERRY Polyethylene Glycol (Polyethylene Glycol 3350 17 Gm Powd.Pack) 17 gm PO DAILY PRN PRN Reason: Constipation Quetiapine Fumarate (Quetiapine Fumarate 50 Mg Tablet) 50 mg PO TID PRN PRN Reason: Anxiety Last Admin: 08/20/24 23:17 Dose: 50 mg Documented By: GEOVANNA Sodium Chloride (0.9 % Sodium Chloride Flush 3 Ml Syringe) 3 ml IVFLUSH QSHIFT [facility] Last Admin: 08/31/24 07:45 Dose: 3 ml Documented By: GEETHA Sodium Hypochlorite (Sodium Hypochlorite 0.5% 473 Ml Solution) 1 appl TOPICAL DAILY [facility] Last Admin: 08/29/24 10:52 Dose: 1 appl Documented By: SKY Topiramate (Topiramate 100 Mg Tablet) 100 mg PO BID [facility] Last Admin: 08/31/24 07:42 Dose: 100 mg Documented By: GEETHA Trazodone HCl (Trazodone Hcl 100 Mg Tablet) 100 mg PO BEDTIME PRN PRN Reason: Insomnia Last Admin: 08/30/24 21:59 Dose: 100 mg Documented By: GERRY Warfarin Sodium (Warfarin Sodium 2.5 Mg Tablet) 2.5 mg PO DAILY@1800 [facility] Last Admin: 08/30/24 18:07 Dose: Not Given Documented By: ANDREW Non-Admin Reason: Physician Held Med Labs 08/25/24 10:24 08/25/24 06:42 Labs: Laboratory Results - last 24 hr 08/30/24 13:00 Hold Purple Top SEE NOTE PT 33.3 H INR 2.9 H Assessment and Plan (1) Clostridium difficile infection: Status: Acute (2) Calciphylaxis: Status: Acute (3) 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 Pt was transferred to [place] due to concern for right atrial mass associated dialysis catheter tip endocarditis vs thrombosus, pt transferred back to [facility] 08/18/24 for continued treatment and STR placement. Acute C diff infection Stool studies positive for C diff on 08/18 no diarrhea overnight vancomycin 125 mg p.o. q.6 ID following; continue po Vancomycin through the course of IV Abx and 2 days after (september 20, 2024). new lue swelling negative doppler Infective endocarditis with ESBL Klebsiella Bacteremia complicated with with Right atrial mass TTE at [place] showed severely dilated left atrium and left ventricle, LVEF 59%, adherent mass with mobile components of left atrium Culture positive for Klebsiella pneumoniae that has cephalosporin resistant gene positive and Pseudomonas Pt started on meropenem 500 mg IV, continue for total of 6 weeks to finish by September 18, 2024 Follow up outpatient with Cardiology at [facility] after discharge for repeat TTE and possible outpatient cardiac MRI Unable to discharge to home as HD center does not cover Meropenem Dilated CBD CT of abdomen and pelvis on 08/07 [place] found distended gallbladder and distal CBD dilation of 1.1 cm and possible filling deficit and distal CBD concerning for choledocholithiasis GI recommendation was for MRCP at [place], however pt refused Pt currently asymptomatic without RUQ abdominal pain, no nausea or vomiting; has been eating and drinking without issue Currently no indication for MRCP, Consider GI consult and repeat imaging if pt develops symptoms Bilateral lower extremity wounds 2/2 Calciphylaxis Continue sodium thiosulfate 25 g IV 3 times weekly after dialysis Wound care (see notes) Analgesics for pain management Pt has so far declined debridement General surgery consult, require extensive debridement with the assistance of Plastic surgery for wound coverage in his much more extensive that can be handled at our facility. Patient will be best treated at a tertiary care center with multimodality treatment including plastic surgery and inpatient wound care. Dr Pickens thinks it is better to be done as outpatient after finishing Bacteremia treatment ESRD On HD T//Thu Anemia of chronic disease S/p [facility] x3 weekly post dialysis Follow CBC, transfuse as necessary HTN Continue amlodipine and clonidine Antiphospholipid syndrome Continue warfarin Daily INR with target range 2-3 GERD Continue PPI Polysubstance use disorder Continue methadone 100 mg daily and 95 mg at bedtime Mood disorder Continue hydroxyzine, trazodone, topiramate, and bupropion Full Code DVT Prophylaxis: On Warfarin reason for continued hospitalization: awaiting bed, needs iv abx Quality Stroke Does the patient have a stroke diagnosis?: No VTE Prior VTE?: No VTE Risk Level:: Medical - moderate - high VTE Device Contraindication: Treatment Not Indicated VTE Drug Contraindication: N/A - Med Ordered
[2024-08-31] MEDS: hydrOXYzine HCL 50 MG TABLET PO ×2 (09:40→17:17)
[2024-08-31 10:17] LABS: INTERNATIONAL NORM RATIO 2.7 (0.9-1.1)
--- NOTE | 2024-08-31 12:03 | MHC.CLN ---
F/U DIET=REGULAR. STRAWBERRY ENSURE TID PER PATIENT PREFERENCE. SUPPLEMENT PROVIDES 1050 KCALS, 60 G PROTEIN. MOST RECENT INTAKE USUALLY 50-100% SKIN WITH STAGE III PI TO L ISCHIUM AND STAGE II PI TO R ISCHIUM. PATIENT WITH ESRD ON HEMODIALYSIS. SUPPLEMENT TO PROMOTE NUTRITIONAL INTAKE/WOUND HEALING. FOLLOW FOR PO INTAKE AND SKIN INTEGRITY.
[2024-08-31 14:57] VITALS: BP 146/81; PULSE 81; RESP 17; TEMP 37; O2SAT 98
[2024-08-31] MEDS: Acetaminophen 325 MG TABLET 650 MG PO (17:16)
[2024-08-31] MEDS: Warfarin Sodium 2.5 MG TABLET PO (17:17)
--- NOTE | 2024-08-31 18:09 | P.PNNP_ITS ---
Subjective Subjective Date of Service: 08/31/24 Interval history: Seen AM. Events noted. All recent data reviewed Physical Exam 2 Vital Signs: Vital Signs: Last Vital Signs Temp 98.6 F 08/31/24 14:57 Pulse 81 08/31/24 14:57 Resp 17 08/31/24 14:57 BP 146/81 H 08/31/24 14:57 Pulse Ox 98 08/31/24 14:57 O2 Del Method Nasal Cannula 08/31/24 14:57 O2 Flow Rate 2 08/31/24 14:57 BMI result Body Mass Index 27.4 Const: General: no acute distress Orientation/consciousness: patient oriented x3 HEENT: Head: Yes normocephalic Eyes: EOM: EOMs intact bilaterally Resp: Auscultation: diminished lung sounds Cardio: Rate: regular rate GI: Palpation (GI): Soft to palpation Neuro: General: patient oriented x3 Objective Data Labs 08/25/24 10:24 08/25/24 06:42 Labs: Laboratory Results - last 24 hr 08/31/24 10:02 PT 31.0 H INR 2.7 H Microbiology Microbiology Results: Microbiology 08/18/24 19:34 Blood - Venous Blood Culture - Final No growth after 5 days. 08/18/24 19:34 Blood - Venous Blood Culture - Final No growth after 5 days. Procedures Date of Service Date of Service: 08/31/24 Assessment & Plan Assessment and plan (1) Calciphylaxis: Status: Acute (2) End stage renal disease on dialysis: Status: Acute Plan Usually gets HD on TTS Has a functioning HD catheter Na thiosulphate TTS as ordered No Vitamin D , calcitriol or ca based binders Phos binders with meals Procrit [id number] U 3 times a week TTS Antibiotics as ordered. Needs cards F/U Shall follow along Progress Note: Quality Stroke Does the patient have a stroke diagnosis?: No
--- NOTE | 2024-08-31 18:26 | PC.NURSE ---
Pt allowed this RN to change both leg dressings however refused to have other dressings changed at this time. Reviewed importance of regular dressing changes with pt.
[2024-08-31 19:25] VITALS: BP 160/98; PULSE 83; RESP 18; TEMP 37.1; O2SAT 95
--- NOTE | 2024-08-31 19:34 | PC.NURSE ---
Addendum entered by Estrella Brunner RN 09/01/24 06:20: Patient requested oxycodone this morning. Administered per patient request with +effect. Patient declined dressing change. Phlebotomy presented to bedside for morning lab draw. Patient declined lab draw at this time and reported she has dialysis later today and wants to wait until then. No time appointed for dialysis at this time of writing. Addendum entered by Estrella Brunner RN 08/31/24 22:20: This freelance writer offered patient her prn oxycodone as per plan for pre-medicating for dressing change as previously discussed with patient below. Patient declined oxycodone and dressing changes at this time. Resting in bed watching tv with no apparent distress. Original Note: Assumed care of this patient at 19:00. Patient reporting 10/10 on oxycodone reassessment, and requested a one time of something IV . Patient was offered her scheduled evening methadone and gabapentin doses though the pt replied those are my home doses. They don't help . Covering Dr. Salmon notified of the patient's request, advised against IV opioids. Resource Paraprofessional D/W patient who agreed to take scheduled medications, discussed non-pharmacological interventions as well. Patient agreeable at this time with plan to attempt to change dressings on hips after next dose of oxycodone. Plan of care continues.
[2024-08-31] MEDS: methADONE HCl 20 MG/2 ML ORAL.CONC 95 MG PO (19:42)
[2024-08-31] MEDS: Doxepin HCl 10 MG CAPSULE PO ×2 (19:42→19:43)
[2024-08-31] MEDS: cloNIDine HCL 0.2 MG TABLET PO (19:43)
[2024-08-31 20:43] VITALS: RESP 16
[2024-09-01 03:26] VITALS: BP 152/71; PULSE 59; RESP 20; TEMP 36.9; O2SAT 92
[2024-09-01] MEDS: oxyCODONE HCl Immed Release 5 MG TABLET PO ×3 (03:40→18:17)
[2024-09-01 04:40] VITALS: RESP 16
[2024-09-01] MEDS: Omeprazole 20 MG CAPSULE.DR PO (05:58)
[2024-09-01 07:44] VITALS: BP 143/111; PULSE 79; RESP 18; TEMP 36.6; O2SAT 93
--- NOTE | 2024-09-01 09:26 | HO.WOUND ---
Wound Consult: Follow up 43yr old female? admitted to [facility] [place] on 08/18/24 - See progress notes and H&P for detailed history.? [place] Text to Dr. Serrano with concerns for patients flank wounds. Chart review reveals the patient continues to refuse the dressing changes. Her last change was Tuesday 08/29 performed by this medical writer. She has been educated multiple times to the benefits of allowing proper wound care and the concerns for worsening if she continues to refuse. The provider was notified of her continued refusal, provider to consider Psych eval due to refusals. The bilateral flank sites continue to be concerning - requested to have surgery re-evaluate for debridement. The patient is not a candidate for Santyl use at this time as the sites remain large in size and given her refusal would not be beneficial to the wound bed unless consistently applied. No new topical recommendations at this time. Details from previous assessments: Wound consult follow up for Bilateral Legs and Posterior hip flank sites.? Chart review reveals patient continues to refuse dressing changes often. The patient and I had a margy conversation regarding concerns with dressing refusals and infection. She reports she has not refused dressing changes and she recalls they are done often. Chart review does not support this. They appear they are often not completed due to patient refusal. The patient was educated on the importance of proper wound care and the concern for wound infection should the bilateral hip dressings not be changed. She reports the Dakins is not comfortable to her, we discussed the benefits to the wund beds to treat suspected pseudomonas invasion given the green blue drainage. We did discuss if she was switched to NS and it would increase her compliance it is an alternative we could explore - she reported she would prefer to stick with Dakins at this time. Bilateral lower legs can be extended to every other day - but they continue to be concerning over all. There are areas where the black eschar is moist and yellow wlough with lifting edges. Continue xerorofm to moist areas and keep stable black areas dry with dry gauze dressing. Agility pulsate bed in use. No new topical recommendations made at this time. Some improvement noted to yellow moist slough. Rigt Flank - Little to no change noted. Right Lower Leg Recommendations: 1. Turn and Reposition every 2 hours and as needed for patient comfort.? Use pillows or wedges to support off loading positions. 2. Off Load all bony prominences with use of pillows and heel boots if needed.? Apply Preventative foams where needed. ? 3. Monitor for incontinence and moisture control, use barrier creams when needed for prevention and treatment. 4. Provide adequate and supplemental nutrition.? 5. Continue low air loss mattress. 6. When applicable maintain blood glucose levels per Providers order. 7. Bilateral Lower Legs - Cleanse with NS moist gauze, dry well. Apply skin prep to periwound. Cover moist wounds with single layer of Xeroform followed by Gauze, ABD pad and wrap. Change every other day. May cover black dry eschar with dry gauze only. 8. Posterior Hip and Flank area - Off load pressure with Q2hr turns and pillows. Cleanse with Dakins moist gauze, Apply thick barrier to wound edges, apply Dakins moist gauze to wound beds, cover with dry gauze, ABD pads. Change daily. 9. Bilateral Ischium and coccyx - Apply skin prep, cover with foam dressing. Change every 5 days and PRN. 10. Perineal - Apply antifungal per provider order. Recommend follow up out patient Wound Clinic at [address] [place] [id number] and to call for an appointment at time of discharge. [phone].? day. 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 TT to provider. Left Leg Right Leg Right Medial Leg - with small area of moist yellow slough Bilateral Legs Etiology: ?Unclear Etiology Wound Bed: mostly dry stable necrotic eschar small areas of moist lifted eschar reveals yellow slough Drainage / Odor: small amount of ten drainage Edges: ? irregular and rolled Rekha wound: ? swelling noted Pain: extreme pain reported Goals of Treatment: ? request for general surgery to assess - dry dressing vs xeroform to keep eschar stable and intact for autolytic debridement Right Side Left Side Posterior Hip Flank area Etiology: ?Unclear Etiology Wound Bed: various stages of necrotic slough Drainage / Odor: yellow corey green blue drainage indicative of pseudomonas Edges: ? irregular and atypical Rekha wound: ? No Induration or Warmth noted Pain: extreme pain reported Goals of Treatment: ?Dakins wet to moist dressing and request for general surgery to assess Recommendations: 1. Turn and Reposition every 2 hours and as needed for patient comfort.? Use pillows or wedges to support off loading positions. 2. Off Load all bony prominences with use of pillows and heel boots if needed.? Apply Preventative foams where needed. ? 3. Monitor for incontinence and moisture control, use barrier creams when needed for prevention and treatment. 4. Provide adequate and supplemental nutrition.? 5. Continue low air loss mattress. 6. When applicable maintain blood glucose levels per Providers order. 7. Bilateral Lower Legs and - Cleanse with Ns moist gauze, dry well. Apply skin prep to periwound. Cover wounds with single layer of Xeroform followed by Gauze, ABD pad and wrap. May use foam dressing to posterior hip/ flank to aid in pressure redistribution. 8. Posterior Hip and Flank area - Off load pressure with Q2hr turns and pillows. Cleanse with Dakins moist gauze, Apply skin barrier to wound edges, apply Dakins moist gauze to wound beds, cover with dry gauze, ABD pads. Change daily. 9. Bilateral Ischium and coccyx - Apply skin prep, cover with foam dressing. Change every 5 days and PRN. 10. Perineal - Apply antifungal per provider order. Recommend follow up out patient Wound Clinic at [address] [place] [id number] and to call for an appointment at time of discharge. [phone].? Re-consult wound care Nurse for wound deterioration or wound changes.
[2024-09-01] MEDS: methADONE HCl 20 MG/2 ML ORAL.CONC 100 MG PO (09:37)
[2024-09-01] MEDS: 0.9 % Sodium Chloride Flush 3 ML SYRINGE IVFLUSH ×2 (09:42→21:23)
[2024-09-01 09:44] VITALS: BP 142/103
[2024-09-01] MEDS: Gabapentin 600 MG TABLET PO ×2 (09:44→21:22)
[2024-09-01] MEDS: amLODIPine Besylate 10 MG TABLET PO (09:44)
[2024-09-01] MEDS: Cyanocobalamin (Vitamin B-12) 100 MCG TABLET PO (09:44)
[2024-09-01] MEDS: buPROPion HCl XL 300 MG TAB.ER.24H PO (09:44)
[2024-09-01] MEDS: Topiramate 100 MG TABLET PO ×2 (09:44→21:22)
[2024-09-01] MEDS: Multivitamin TABLET 1 TAB PO (09:44)
--- NOTE | 2024-09-01 09:57 | P.PNNP_ITS ---
Subjective Subjective Date of Service: 09/01/24 Interval history: Seen AM. Events noted. All recent data reviewed; Due HD today Physical Exam 2 Vital Signs: Vital Signs: Last Vital Signs Temp 97.9 F 09/01/24 07:44 Pulse 79 09/01/24 07:44 Resp 18 09/01/24 07:44 BP 142/103 H 09/01/24 09:44 Pulse Ox 93 09/01/24 07:44 O2 Del Method Nasal Cannula 09/01/24 07:44 O2 Flow Rate 2.0 09/01/24 07:44 BMI result Body Mass Index 27.4 Const: General: no acute distress Orientation/consciousness: patient oriented x3 Eyes: EOM: EOMs intact bilaterally Resp: Auscultation: diminished lung sounds Cardio: Rate: regular rate GI: Palpation (GI): Soft to palpation Neuro: General: patient oriented x3 and moves all extremities Objective Data Labs 08/25/24 10:24 08/25/24 06:42 Labs: Laboratory Results - last 24 hr 08/31/24 10:02 PT 31.0 H INR 2.7 H Microbiology Microbiology Results: Microbiology 08/18/24 19:34 Blood - Venous Blood Culture - Final No growth after 5 days. 08/18/24 19:34 Blood - Venous Blood Culture - Final No growth after 5 days. Procedures Date of Service Date of Service: 09/01/24 Assessment & Plan Assessment and plan (1) End stage renal disease on dialysis: Status: Acute Plan Usually gets HD on TTS -due today Has a functioning HD catheter Na thiosulphate TTS as ordered No Vitamin D , calcitriol or ca based binders Phos binders with meals Procrit 89166 U 3 times a week TTS Shall follow along Progress Note: Quality Stroke Does the patient have a stroke diagnosis?: No
[2024-09-01] MEDS: vancomycin HCL 125 MG CAPSULE PO ×3 (12:04→23:01)
--- NOTE | 2024-09-01 12:16 | P.PNGS_ITS ---
Subjective Subjective Date of Service: 09/01/24 Interval history: Patient complains of pain in bilateral buttock and leg wounds, especially with dressing changes. She was awaiting hemodialysis today. Physical Exam 2 Vital Signs: Vital Signs: Last Vital Signs Temp 97.9 F 09/01/24 07:44 Pulse 79 09/01/24 07:44 Resp 18 09/01/24 07:44 BP 142/103 H 09/01/24 09:44 Pulse Ox 93 09/01/24 07:44 O2 Del Method Nasal Cannula 09/01/24 07:44 O2 Flow Rate 2.0 09/01/24 07:44 BMI result Body Mass Index 27.4 Const: General: no acute distress Nutritional Appearance: average body habitus Orientation/consciousness: patient oriented x3 Resp: Effort & Inspection: normal respiratory effort, no audible wheezes, no cough and no respiratory distress GI: Inspection: Yes normal to inspection Neuro: General: patient oriented x3 Extrem: Other: Multiple bilateral buttock and lower extremity wounds including right hip and left hip. Patient has exquisite tenderness with examination of wounds and complete examination is difficult due to patient's pain. Images obtained by wound service examined closely and appreciated. Objective Data Active Medications Acetaminophen (Acetaminophen 325 Mg Tablet) 650 mg PO Q6H PRN PRN Reason: Pain, Mild 1-3,fever,headache Last Admin: 08/31/24 17:16 Dose: 650 mg Documented By: GEETHA Albuterol Sulfate (Albuterol Sulfate 90 Mcg 8 Gm Inhaler) 2 puff INHALE RQ4H PRN PRN Reason: Wheezing Amlodipine Besylate (Amlodipine Besylate 10 Mg Tablet) 10 mg PO DAILY [facility]; Protocol Last Admin: 09/01/24 09:44 Dose: 10 mg Documented By: ELINA Bupropion HCl (Bupropion Hcl Xl 300 Mg Tab.Er.24h) 300 mg PO DAILY [facility] Last Admin: 09/01/24 09:44 Dose: 300 mg Documented By: ELINA Clonidine HCl (Clonidine Hcl 0.2 Mg Tablet) 0.2 mg PO BEDTIME [facility]; Protocol Last Admin: 08/31/24 19:43 Dose: 0.2 mg Documented By: DAYANARA Cyanocobalamin (Cyanocobalamin (Vitamin B-12) 100 Mcg Tablet) 100 mcg PO DAILY [facility] Last Admin: 09/01/24 09:44 Dose: 100 mcg Documented By: ELINA Doxepin HCl (Doxepin Hcl 10 Mg Capsule) 10 mg PO BEDTIME [facility] Last Admin: 08/31/24 19:43 Dose: 10 mg Documented By: DAYANARA Epoetin Devin-epbx (Epoetin Devin-Epbx 10,000 Unit/Ml Vial) 8,000 unit IVPUSH TuThSa@1800 [facility] Last Admin: 08/30/24 22:01 Dose: 8,000 unit Documented By: GERRY Gabapentin (Gabapentin 600 Mg Tablet) 600 mg PO BID [facility] Last Admin: 09/01/24 09:44 Dose: 600 mg Documented By: ELINA Heparin Sodium (Porcine) (Heparin Sodium,Porcine 5,000 Unit/Ml Vial) 5,000 unit INTRACATH TUTHSA@1645 [facility] Last Admin: 08/31/24 15:13 Dose: Not Given Documented By: GEETHA Non-Admin Reason: yesterdays med to give Hydroxyzine HCl (Hydroxyzine Hcl 50 Mg Tablet) 50 mg PO TID PRN PRN Reason: Anxiety Last Admin: 08/31/24 17:17 Dose: 50 mg Documented By: GEETHA Sodium Thiosulfate 12.5 gm/ (Sodium Chloride) 200 mls @ 400 mls/hr IV Q30M [facility] Stop: 08/18/24 23:14 Magnesium Hydroxide (Milk Of Magnesia 30 Ml Oral.Susp) 30 ml PO DAILY PRN PRN Reason: Constipation Melatonin (Melatonin 3 Mg Tablet) 6 mg PO BEDTIME PRN PRN Reason: Insomnia Last Admin: 08/29/24 20:08 Dose: 6 mg Documented By: KRISTEN Meropenem (Meropenem 500 Mg Vial) 500 mg IV TuThSa@1800 [facility] Stop: 09/30/24 17:59 Last Admin: 08/30/24 18:34 Dose: 500 mg Documented By: CALEB Methadone HCl (Methadone Hcl 20 Mg/2 Ml Oral.Conc) 100 mg PO DAILY [facility] Last Admin: 09/01/24 09:37 Dose: 100 mg Documented By: ELINA Co-signed By: SKY Methadone HCl (Methadone Hcl 20 Mg/2 Ml Oral.Conc) 95 mg PO BEDTIME [facility] Last Admin: 08/31/24 19:42 Dose: 95 mg Documented By: DAYANARA Co-signed By: ONELIA Multivitamins/Vitamin C (Multivitamin Tablet) 1 tab PO DAILY [facility] Last Admin: 09/01/24 09:44 Dose: 1 tab Documented By: ELINA Non-Formulary Medication (Lumateperone [Caplyta]) 42 mg PO DAILY [facility] Nystatin (Nystatin Oral Susp 500,000 Unit/5 Ml Oral.Susp) 100,000 unit PO DAILY PRN; Protocol PRN Reason: FLARES Nystatin (Nystatin Powder 15 Gm Bottle) 1 appl TOPICAL BID [facility]; Protocol Last Admin: 08/31/24 22:23 Dose: Not Given Documented By: DAYANARA Non-Admin Reason: Patient Refused Omeprazole (Omeprazole 20 Mg Capsule.) 20 mg PO DAILY@0630 [facility] Last Admin: 09/01/24 05:58 Dose: 20 mg Documented By: DAYANARA Oxycodone HCl (Oxycodone Hcl Immed Release 5 Mg Tablet) 5 mg PO Q4H PRN PRN Reason: Pain, Severe (Pain Scale 7-10) Last Admin: 09/01/24 12:13 Dose: 5 mg Documented By: ELINA Oxycodone HCl (Oxycodone Hcl Immed Release 5 Mg Tablet) 5 mg PO Q6H PRN PRN Reason: Pain, Moderate(Pain Scale 4-6) Polyethylene Glycol (Polyethylene Glycol 3350 17 Gm Powd.Pack) 17 gm PO DAILY PRN PRN Reason: Constipation Quetiapine Fumarate (Quetiapine Fumarate 50 Mg Tablet) 50 mg PO TID PRN PRN Reason: Anxiety Last Admin: 08/20/24 23:17 Dose: 50 mg Documented By: GEOVANNA Sodium Chloride (0.9 % Sodium Chloride Flush 3 Ml Syringe) [facility] Last Admin: 09/01/24 09:42 Dose: 3 ml Documented By: ELINA Sodium Hypochlorite (Sodium Hypochlorite 0.5% 473 Ml Solution) 1 appl TOPICAL DAILY [facility] Last Admin: 08/31/24 17:16 Dose: Not Given Documented By: GEETHA Non-Admin Reason: Patient Refused Topiramate (Topiramate 100 Mg Tablet) 100 mg PO BID [facility] Last Admin: 09/01/24 09:44 Dose: 100 mg Documented By: ELINA Trazodone HCl (Trazodone Hcl 100 Mg Tablet) 100 mg PO BEDTIME PRN PRN Reason: Insomnia Last Admin: 08/30/24 21:59 Dose: 100 mg Documented By: GERRY Vancomycin HCl (Vancomycin Hcl 125 Mg Capsule) 125 mg PO Q6H [facility] Stop: 09/20/24 10:59 Last Admin: 09/01/24 12:04 Dose: 125 mg Documented By: ELINA Warfarin Sodium (Warfarin Sodium 2.5 Mg Tablet) 2.5 mg PO DAILY@1800 [facility] Last Admin: 08/31/24 17:17 Dose: 2.5 mg Documented By: GEETHA Labs 08/25/24 10:24 08/25/24 06:42 Procedures Date of Service Date of Service: 09/01/24 Progress Note: A&P Assessment and plan (1) Calciphylaxis: Status: Acute Plan 43-year-old female patient with multiple medical problems including renal failure requiring dialysis Thursday and Thursday, C diff positive, and known calciphylaxis presenting with nonhealing wounds of the buttocks and lower extremities. I discussed debridement of the buttock wounds under anesthesia. After discussion of the procedure, risks, and alternatives, she consents to debridement of the bilateral buttock wounds under general anesthesia. She will be placed on the OR schedule for Thursday as an add on. She expressed understanding and agrees with the plan. Time Spent With Patient Time: Total time managing care of this patient today ____ minutes. Quality Stroke Does the patient have a stroke diagnosis?: No VTE Prior VTE?: No VTE Risk Level:: Medical - moderate - high VTE Device Contraindication: Treatment Not Indicated VTE Drug Contraindication: N/A - Med Ordered
--- NOTE | 2024-09-01 12:20 | HO.PM.IMPN ---
Subjective Subjective Date of Service: 09/01/24 Interval History: seen and evaluated this morning worsening wounds bilateral flanks, patient refuses dressing changes multiple times no fever or chills plan for HD today no other events Review of Systems Review of Systems: Yes all other systems are reviewed and are negative Physical Exam Vital Signs: Vital Signs: Last Vital Signs Temp 97.9 F 09/01/24 07:44 Pulse 79 09/01/24 07:44 Resp 18 09/01/24 07:44 BP 142/103 H 09/01/24 09:44 Pulse Ox 93 09/01/24 07:44 O2 Del Method Nasal Cannula 09/01/24 07:44 O2 Flow Rate 2.0 09/01/24 07:44 BMI result Body Mass Index 27.4 Const: Other: Constitutional : Awake, interactive, frail looking, not in distress Neck : Normal inspection, Supple Cardiovascular : RRR, no JVP, no lower extremity edema Respiratory : good bilateral air entry, no crackles, wheezes or rhonchi, on O2 supplement Gastrointestinal: soft, lax, Normal bowel sounds, Non tender Skin : Warm, Dry, bilateral lower extremities eschar , bilateral flank Neurological : Alert & oriented x3, No focal deficit Objective Data Active Medications Acetaminophen (Acetaminophen 325 Mg Tablet) 650 mg PO Q6H PRN PRN Reason: Pain, Mild 1-3,fever,headache Last Admin: 08/31/24 17:16 Dose: 650 mg Documented By: GEETHA Albuterol Sulfate (Albuterol Sulfate 90 Mcg 8 Gm Inhaler) 2 puff INHALE RQ4H PRN PRN Reason: Wheezing Amlodipine Besylate (Amlodipine Besylate 10 Mg Tablet) 10 mg PO DAILY [facility]; Protocol Last Admin: 09/01/24 09:44 Dose: 10 mg Documented By: ELINA Bupropion HCl (Bupropion Hcl Xl 300 Mg Tab.Er.24h) 300 mg PO DAILY SOPHIE Last Admin: 09/01/24 09:44 Dose: 300 mg Documented By: ELINA Clonidine HCl (Clonidine Hcl 0.2 Mg Tablet) 0.2 mg PO BEDTIME [facility]; Protocol Last Admin: 08/31/24 19:43 Dose: 0.2 mg Documented By: DAYANARA Cyanocobalamin (Cyanocobalamin (Vitamin B-12) 100 Mcg Tablet) 100 mcg PO DAILY [facility] Last Admin: 09/01/24 09:44 Dose: 100 mcg Documented By: ELINA Doxepin HCl (Doxepin Hcl 10 Mg Capsule) 10 mg PO BEDTIME [facility] Last Admin: 08/31/24 19:43 Dose: 10 mg Documented By: DAYANARA Epoetin Devin-epbx (Epoetin Devin-Epbx 10,000 Unit/Ml Vial) 8,000 unit IVPUSH TuThSa@1800 [facility] Last Admin: 08/30/24 22:01 Dose: 8,000 unit Documented By: GERRY Gabapentin (Gabapentin 600 Mg Tablet) 600 mg PO BID [facility] Last Admin: 09/01/24 09:44 Dose: 600 mg Documented By: ELINA Heparin Sodium (Porcine) (Heparin Sodium,Porcine 5,000 Unit/Ml Vial) 5,000 unit INTRACATH TUTHSA@1645 [facility] Last Admin: 08/31/24 15:13 Dose: Not Given Documented By: GEETHA Non-Admin Reason: yesterdays med to give Hydroxyzine HCl (Hydroxyzine Hcl 50 Mg Tablet) 50 mg PO TID PRN PRN Reason: Anxiety Last Admin: 08/31/24 17:17 Dose: 50 mg Documented By: GEETHA Sodium Thiosulfate 12.5 gm/ (Sodium Chloride) 200 mls @ 400 mls/hr IV Q30M [facility] Stop: 08/18/24 23:14 Magnesium Hydroxide (Milk Of Magnesia 30 Ml Oral.Susp) 30 ml PO DAILY PRN PRN Reason: Constipation Melatonin (Melatonin 3 Mg Tablet) 6 mg PO BEDTIME PRN PRN Reason: Insomnia Last Admin: 08/29/24 20:08 Dose: 6 mg Documented By: KRISTEN Meropenem (Meropenem 500 Mg Vial) 500 mg IV TuThSa@1800 [facility] Stop: 09/30/24 17:59 Last Admin: 08/30/24 18:34 Dose: 500 mg Documented By: CALEB Methadone HCl (Methadone Hcl 20 Mg/2 Ml Oral.Conc) 100 mg PO DAILY [facility] Last Admin: 09/01/24 09:37 Dose: 100 mg Documented By: ELIAN Co-signed By: SKY Methadone HCl (Methadone Hcl 20 Mg/2 Ml Oral.Conc) 95 mg PO BEDTIME [facility] Last Admin: 08/31/24 19:42 Dose: 95 mg Documented By: DAYANARA Co-signed By: ONELIA Multivitamins/Vitamin C (Multivitamin Tablet) 1 tab PO DAILY [facility] Last Admin: 09/01/24 09:44 Dose: 1 tab Documented By: ELINA Non-Formulary Medication (Lumateperone [Caplyta]) 42 mg PO DAILY [facility] Nystatin (Nystatin Oral Susp 500,000 Unit/5 Ml Oral.Susp) 100,000 unit PO DAILY PRN; Protocol PRN Reason: FLARES Nystatin (Nystatin Powder 15 Gm Bottle) 1 appl TOPICAL BID [facility]; Protocol Last Admin: 08/31/24 22:23 Dose: Not Given Documented By: DAYANARA Non-Admin Reason: Patient Refused Omeprazole (Omeprazole 20 Mg Capsule.) 20 mg PO DAILY@0630 [facility] Last Admin: 09/01/24 05:58 Dose: 20 mg Documented By: DAYANARA Oxycodone HCl (Oxycodone Hcl Immed Release 5 Mg Tablet) 5 mg PO Q4H PRN PRN Reason: Pain, Severe (Pain Scale 7-10) Last Admin: 09/01/24 12:13 Dose: 5 mg Documented By: ELINA Oxycodone HCl (Oxycodone Hcl Immed Release 5 Mg Tablet) 5 mg PO Q6H PRN PRN Reason: Pain, Moderate(Pain Scale 4-6) Polyethylene Glycol (Polyethylene Glycol 3350 17 Gm Powd.Pack) 17 gm PO DAILY PRN PRN Reason: Constipation Quetiapine Fumarate (Quetiapine Fumarate 50 Mg Tablet) 50 mg PO TID PRN PRN Reason: Anxiety Last Admin: 08/20/24 23:17 Dose: 50 mg Documented By: GEOVANNA Sodium Chloride (0.9 % Sodium Chloride Flush 3 Ml Syringe) [facility] Last Admin: 09/01/24 09:42 Dose: 3 ml Documented By: ELINA Sodium Hypochlorite (Sodium Hypochlorite 0.5% 473 Ml Solution) 1 appl TOPICAL DAILY [facility] Last Admin: 08/31/24 17:16 Dose: Not Given Documented By: GEETHA Non-Admin Reason: Patient Refused Topiramate (Topiramate 100 Mg Tablet) 100 mg PO BID [facility] Last Admin: 09/01/24 09:44 Dose: 100 mg Documented By: ELINA Trazodone HCl (Trazodone Hcl 100 Mg Tablet) 100 mg PO BEDTIME PRN PRN Reason: Insomnia Last Admin: 08/30/24 21:59 Dose: 100 mg Documented By: GERRY Vancomycin HCl (Vancomycin Hcl 125 Mg Capsule) 125 mg PO Q6H [facility] Stop: 09/20/24 10:59 Last Admin: 09/01/24 12:04 Dose: 125 mg Documented By: ELINA Warfarin Sodium (Warfarin Sodium 2.5 Mg Tablet) 2.5 mg PO DAILY@1800 [facility] Last Admin: 08/31/24 17:17 Dose: 2.5 mg Documented By: GEETHA Estrada 08/25/24 10:24 08/25/24 06:42 Assessment and Plan (1) Clostridium difficile infection: Status: Acute (2) Calciphylaxis: Status: Acute (3) 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: Status: Acute (4) Wounds, multiple open, lower extremity: Status: Acute (5) Eschar of lower leg: Status: Acute (6) End stage renal disease on dialysis: Status: Acute Plan Pt is a 43-year-old female with a PMH significant for ESRD on HD, lupus, antiphospholipid syndrome with hx of DVTs on warfarin, anemia of chronic disease, hx of MRSA bacteremia, opioid use disorder on methadone, cocaine use disorder, HTN, GERD, and migraines who initially presented to [facility] on 07/27/2024 with worsening lower leg wounds suspected secondary to calciphylaxis as pt was on warfarin and ESRD on HD. Pt was transferred to [facility] due to concern for right atrial mass associated dialysis catheter tip, and pt is now being transferred back to [facility] for continued treatment and STR placement. Acute C diff infection Stool studies positive for C diff on 08/18 no diarrhea overnight vancomycin 125 mg p.o. q.6 ID following; continue po Vancomycin through the course of IV Abx and 2 days after (september 20, 2024). new LUE swelling negative doppler Infective endocarditis with ESBL Klebsiella Bacteremia complicated with with Right atrial mass TTE at [facility] showed severely dilated left atrium and left ventricle, LVEF 59%, adherent mass with mobile components of left atrium Culture positive for Klebsiella pneumoniae that has cephalosporin resistant gene positive and Pseudomonas Pt started on meropenem 500 mg IV, continue for total of 6 weeks to finish by September 18, 2024 Follow up outpatient with Cardiology at [facility] [place] after discharge for repeat TTE and possible outpatient cardiac MRI Unable to discharge to home as HD center does not cover Meropenem Dilated CBD CT of abdomen and pelvis on 08/07 [facility] found distended gallbladder and distal CBD dilation of 1.1 cm and possible filling deficit and distal CBD concerning for choledocholithiasis GI recommendation was for MRCP at [facility], however pt refused Pt currently asymptomatic without RUQ abdominal pain, no nausea or vomiting; has been eating and drinking without issue Currently no indication for MRCP, Consider GI consult and repeat imaging if pt develops symptoms Bilateral lower extremity wounds 2/2 Calciphylaxis Continue sodium thiosulfate 25 g IV 3 times weekly after dialysis Wound care (see notes) Analgesics for pain management Pt has so far declined debridement General surgery consult, require extensive debridement with the assistance of Plastic surgery for wound coverage in his much more extensive that can be handled at our facility. Patient will be best treated at a tertiary care center with multimodality treatment including plastic surgery and inpatient wound care. Flank wounds Wound care following Dr Pickens scheduled patient for flank wounds debridement on Thursday ESRD On HD T//Thu Anemia of chronic disease S/p 3 units PRBCs at [facility] Retacrit 28569 units x3 weekly post dialysis Follow CBC, transfuse as necessary HTN Continue amlodipine and clonidine Antiphospholipid syndrome Continue warfarin Daily INR with target range 2-3 GERD Continue PPI Polysubstance use disorder Continue methadone 100 mg daily and 95 mg at bedtime Mood disorder Continue hydroxyzine, trazodone, topiramate, and bupropion Full Code DVT Prophylaxis: On Warfarin reason for continued hospitalization: awaiting bed, needs iv abx Quality Stroke Does the patient have a stroke diagnosis?: No VTE Prior VTE?: No VTE Risk Level:: Medical - moderate - high VTE Device Contraindication: Treatment Not Indicated VTE Drug Contraindication: N/A - Med Ordered
[2024-09-01 15:55] LABS: Hematocrit 24.3 % (37.0-47.0); Hemoglobin 7.8 g/dl (12.0-16.0); Mean Corpuscular HGB Conc 32.1 g/dl (31.0-35.0); Mean Corpuscular Hemoglobin 28.8 pg (27.0-33.0); Mean Corpuscular Volume 89.7 fL (80.0-98.0); Mean Platelet Volume 10.5 fL (9.4-12.3); NRBC Pct Auto 0.4 /100WBC (0.0-0.2); Platelet Count 457 X10*3/uL (160-400); Red Blood Count 2.71 X10*6/uL (4.20-5.50); Red Cell Distribution Width 20.3 % (11.0-16.0); White Blood Count 9.8 X10*3/uL (4.8-10.8)
[2024-09-01 16:03] LABS: INTERNATIONAL NORM RATIO 2.1 (0.9-1.1); Prothrombin Time 24.9 SEC (10.9-12.4)
[2024-09-01 16:08] LABS: Anion Gap 19 (12-20); Blood Urea Nitrogen 43 mg/dL (9-16); Carbon Dioxide 25 mmol/L (22-29); Chloride 100 mmol/L (96-108); Estimated Glomerular Filt Rate 15; Glucose Random 114 mg/dL (60-115); Potassium 5.2 mmol/L (3.3-5.1); Sodium 139 mmol/L (135-145)
[2024-09-01] MEDS: hydrOXYzine HCL 50 MG TABLET PO (18:17)
[2024-09-01] MEDS: Warfarin Sodium 2.5 MG TABLET PO (18:18)
[2024-09-01 20:00] VITALS: BP 140/88; PULSE 84; RESP 18; TEMP 36.9; O2SAT 95
[2024-09-01] MEDS: SODIUM THIOSULFATE IV ×2 (21:07→22:02)
[2024-09-01] MEDS: SODIUM CHLORIDE 0.9% IV ×2 (21:07→22:02)
[2024-09-01 21:22] VITALS: BP 140/88
[2024-09-01] MEDS: cloNIDine HCL 0.2 MG TABLET PO (21:22)
[2024-09-01] MEDS: Doxepin HCl 10 MG CAPSULE PO (21:23)
[2024-09-01] MEDS: methADONE HCl 20 MG/2 ML ORAL.CONC 95 MG PO (21:23)
[2024-09-01] MEDS: traZODone HCL 100 MG TABLET PO (21:29)
--- NOTE | 2024-09-01 22:05 | PC.NURSE ---
pt refused dsg changes in the am. She later demanded them while an urgent situation was in process. Pt called for dialysis and stated she would be willing to do after dialysis. Pt did allow dsg changes when back from dialysis but requires very slow process. She refused Dakins and states she would only allow saline today. wounds cleansed and dressed as allowed by patient. sloughing eschar noted on L hip. blue/green foul smelling drainage noted in all wounds. Pt tolerated some education on wounds during dsg change.
[2024-09-01] MEDS: Meropenem 500 MG VIAL IV (22:55)
[2024-09-02 03:19] VITALS: BP 153/80; PULSE 87; RESP 20; TEMP 36.2; O2SAT 93
[2024-09-02] MEDS: vancomycin HCL 125 MG CAPSULE PO ×4 (05:57→22:58)
[2024-09-02] MEDS: Omeprazole 20 MG CAPSULE.DR PO (05:57)
[2024-09-02 06:22] LABS: INTERNATIONAL NORM RATIO 2.2 (0.9-1.1); Prothrombin Time 25.4 SEC (10.9-12.4)
[2024-09-02 06:39] VITALS: BP 159/80; PULSE 81; RESP 16; TEMP 36.6; O2SAT 94
[2024-09-02 08:45] VITALS: BP 143/74; PULSE 82; TEMP 36.6
[2024-09-02] MEDS: Multivitamin TABLET 1 TAB PO (09:02)
[2024-09-02] MEDS: Topiramate 100 MG TABLET PO ×2 (09:02→21:07)
[2024-09-02] MEDS: amLODIPine Besylate 10 MG TABLET PO (09:02)
[2024-09-02] MEDS: Gabapentin 600 MG TABLET PO ×2 (09:02→21:08)
[2024-09-02] MEDS: buPROPion HCl XL 300 MG TAB.ER.24H PO (09:02)
[2024-09-02] MEDS: Cyanocobalamin (Vitamin B-12) 100 MCG TABLET PO (09:02)
[2024-09-02] MEDS: methADONE HCl 20 MG/2 ML ORAL.CONC 100 MG PO (09:02)
[2024-09-02] MEDS: 0.9 % Sodium Chloride Flush 3 ML SYRINGE IVFLUSH ×3 (09:05→22:59)
[2024-09-02] MEDS: oxyCODONE HCl Immed Release 5 MG TABLET PO ×3 (10:41→21:07)
--- NOTE | 2024-09-02 11:00 | P.PNIM_ITS ---
Subjective Subjective Date of Service: 09/02/24 Interval History: seen and evaluated this morning dressing changes last night reports pain no fever or chills no other events Review of Systems Review of Systems: Yes all other systems are reviewed and are negative Physical Exam 2 Vital Signs: Vital Signs: Last Vital Signs Temp 98 F 09/02/24 08:45 Pulse 82 09/02/24 08:45 Resp 16 09/02/24 06:39 BP 143/74 H 09/02/24 08:45 Pulse Ox 94 09/02/24 06:39 O2 Del Method Room Air 09/02/24 06:39 O2 Flow Rate 2 09/02/24 03:19 BMI result Body Mass Index 27.4 Const: Other: Constitutional : Awake, interactive, frail looking, not in distress Neck : Normal inspection, Supple Cardiovascular : RRR, no JVP, no lower extremity edema Respiratory : good bilateral air entry, no crackles, wheezes or rhonchi, on O2 supplement Gastrointestinal: soft, lax, Normal bowel sounds, Non tender Skin : Warm, Dry, bilateral lower extremities eschar , bilateral flank Neurological : Alert & oriented x3, No focal deficit Objective Data Active Medications Acetaminophen (Acetaminophen 325 Mg Tablet) 650 mg PO Q6H PRN PRN Reason: Pain, Mild 1-3,fever,headache Last Admin: 08/31/24 17:16 Dose: 650 mg Documented By: GEETHA Albuterol Sulfate (Albuterol Sulfate 90 Mcg 8 Gm Inhaler) 2 puff INHALE RQ4H PRN PRN Reason: Wheezing Amlodipine Besylate (Amlodipine Besylate 10 Mg Tablet) 10 mg PO DAILY [facility]; Protocol Last Admin: 09/02/24 09:02 Dose: 10 mg Documented By: ARIS Bupropion HCl (Bupropion Hcl Xl 300 Mg Tab.Er.24h) 300 mg PO DAILY [facility] Last Admin: 09/02/24 09:02 Dose: 300 mg Documented By: ARIS Clonidine HCl (Clonidine Hcl 0.2 Mg Tablet) 0.2 mg PO BEDTIME [facility]; Protocol Last Admin: 09/01/24 21:22 Dose: 0.2 mg Documented By: NIKKI Cyanocobalamin (Cyanocobalamin (Vitamin B-12) 100 Mcg Tablet) 100 mcg PO DAILY [facility] Last Admin: 09/02/24 09:02 Dose: 100 mcg Documented By: ARIS Doxepin HCl (Doxepin Hcl 10 Mg Capsule) 10 mg PO BEDTIME [facility] Last Admin: 09/01/24 21:23 Dose: 10 mg Documented By: NIKKI Epoetin Devin-epbx (Epoetin Devin-Epbx 10,000 Unit/Ml Vial) 8,000 unit IVPUSH TuThSa@1800 [facility] Last Admin: 09/02/24 07:11 Dose: Not Given Documented By: RONN Non-Admin Reason: Off unit: Dialysis Gabapentin (Gabapentin 600 Mg Tablet) 600 mg PO BID [facility] Last Admin: 09/02/24 09:02 Dose: 600 mg Documented By: ARIS Heparin Sodium (Porcine) (Heparin Sodium,Porcine 5,000 Unit/Ml Vial) 5,000 unit INTRACATH TUTHSA@1645 [facility] Last Admin: 09/01/24 21:41 Dose: Not Given Documented By: ELINA Non-Admin Reason: Given in Dialysis Hydroxyzine HCl (Hydroxyzine Hcl 50 Mg Tablet) 50 mg PO TID PRN PRN Reason: Anxiety Last Admin: 09/01/24 18:17 Dose: 50 mg Documented By: ELINA Sodium Thiosulfate 12.5 gm/ (Sodium Chloride) 200 mls @ 400 mls/hr IV Q30M [facility] Stop: 08/18/24 23:14 Magnesium Hydroxide (Milk Of Magnesia 30 Ml Oral.Susp) 30 ml PO DAILY PRN PRN Reason: Constipation Melatonin (Melatonin 3 Mg Tablet) 6 mg PO BEDTIME PRN PRN Reason: Insomnia Last Admin: 08/29/24 20:08 Dose: 6 mg Documented By: KRISTEN Meropenem (Meropenem 500 Mg Vial) 500 mg IV TuThSa@1800 [facility] Stop: 09/30/24 17:59 Last Admin: 09/01/24 22:55 Dose: 500 mg Documented By: NIKKI Comments: med late as pt came out late HD, med has schedule c onflict with Na thiosulfate Methadone HCl (Methadone Hcl 20 Mg/2 Ml Oral.Conc) 100 mg PO DAILY [facility] Last Admin: 09/02/24 09:02 Dose: 100 mg Documented By: ARIS Co-signed By: ESUA Methadone HCl (Methadone Hcl 20 Mg/2 Ml Oral.Conc) 95 mg PO BEDTIME [facility] Last Admin: 09/01/24 21:23 Dose: 95 mg Documented By: NIKKI Co-signed By: KYLE Multivitamins/Vitamin C (Multivitamin Tablet) 1 tab PO DAILY [facility] Last Admin: 09/02/24 09:02 Dose: 1 tab Documented By: ARIS Non-Formulary Medication (Lumateperone [Caplyta]) 42 mg PO DAILY [facility] Nystatin (Nystatin Oral Susp 500,000 Unit/5 Ml Oral.Susp) 100,000 unit PO DAILY PRN; Protocol PRN Reason: FLARES Nystatin (Nystatin Powder 15 Gm Bottle) 1 appl TOPICAL BID [facility]; Protocol Last Admin: 09/01/24 21:24 Dose: Not Given Documented By: NIKKI Non-Admin Reason: Patient Refused Omeprazole (Omeprazole 20 Mg Capsule.Dr) 20 mg PO DAILY@0630 [facility] Last Admin: 09/02/24 05:57 Dose: 20 mg Documented By: NIKKI Oxycodone HCl (Oxycodone Hcl Immed Release 5 Mg Tablet) 5 mg PO Q4H PRN PRN Reason: Pain, Severe (Pain Scale 7-10) Last Admin: 09/02/24 10:41 Dose: 5 mg Documented By: ARIS Oxycodone HCl (Oxycodone Hcl Immed Release 5 Mg Tablet) 5 mg PO Q6H PRN PRN Reason: Pain, Moderate(Pain Scale 4-6) Polyethylene Glycol (Polyethylene Glycol 3350 17 Gm Powd.Pack) 17 gm PO DAILY PRN PRN Reason: Constipation Quetiapine Fumarate (Quetiapine Fumarate 50 Mg Tablet) 50 mg PO TID PRN PRN Reason: Anxiety Last Admin: 08/20/24 23:17 Dose: 50 mg Documented By: GEOVANNA Sodium Chloride (0.9 % Sodium Chloride Flush 3 Ml Syringe) 3 ml IVFLUSH [facility] Last Admin: 09/02/24 09:05 Dose: 3 ml Documented By: ARIS Sodium Hypochlorite (Sodium Hypochlorite 0.5% 473 Ml Solution) 1 appl TOPICAL DAILY [facility] Last Admin: 09/01/24 21:40 Dose: Not Given Documented By: ELINA Non-Admin Reason: Patient Refused Topiramate (Topiramate 100 Mg Tablet) 100 mg PO BID [facility] Last Admin: 09/02/24 09:02 Dose: 100 mg Documented By: ARIS Trazodone HCl (Trazodone Hcl 100 Mg Tablet) 100 mg PO BEDTIME PRN PRN Reason: Insomnia Last Admin: 09/01/24 21:29 Dose: 100 mg Documented By: NIKKI Vancomycin HCl (Vancomycin Hcl 125 Mg Capsule) 125 mg PO Q6H [facility] Stop: 09/20/24 10:59 Last Admin: 09/02/24 10:41 Dose: 125 mg Documented By: ARIS Warfarin Sodium (Warfarin Sodium 2.5 Mg Tablet) 2.5 mg PO DAILY@1800 [facility] Last Admin: 09/01/24 18:18 Dose: 2.5 mg Documented By: ELINA Labs 09/01/24 15:48 09/01/24 15:48 Labs: Laboratory Results - last 24 hr 09/01/24 09/02/24 15:48 06:03 MCV 89.7 MCH 28.8 MCHC 32.1 RDW 20.3 H Plt Count 457 H MPV 10.5 Absolute Nucleated RBC 0.040 H Nucleated RBC % (auto) 0.4 H PT 24.9 H 25.4 H INR 2.1 H 2.2 H Anion Gap 19 Estim Creat Clear Calc 24.0 Estimated GFR 15 Random Glucose 114 Calcium 9.0 Assessment and Plan (1) Calciphylaxis: Status: Acute (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: Status: Acute (3) Wounds, multiple open, lower extremity: Status: Acute (4) Eschar of lower leg: Status: Acute (5) Renal failure: Status: Acute (6) Clostridium difficile infection: Status: Acute Plan Pt is a 43-year-old female with a PMH significant for ESRD on HD, lupus, antiphospholipid syndrome with hx of DVTs on warfarin, anemia of chronic disease, hx of MRSA bacteremia, opioid use disorder on methadone, cocaine use disorder, HTN, GERD, and migraines who initially presented to [facility] on 07/27/2024 with worsening lower leg wounds suspected secondary to calciphylaxis as pt was on warfarin and ESRD on HD. Pt was transferred to [facility] due to concern for right atrial mass associated dialysis catheter tip, and pt is now being transferred back to [facility] for continued treatment and STR placement. Acute C diff infection Stool studies positive for C diff on 08/18 no diarrhea overnight vancomycin 125 mg p.o. q.6 ID following; continue po Vancomycin through the course of IV Abx and 2 days after (september 20, 2024). new LUE swelling negative doppler Infective endocarditis with ESBL Klebsiella Bacteremia complicated with with Right atrial mass TTE at [facility] showed severely dilated left atrium and left ventricle, LVEF 59%, adherent mass with mobile components of left atrium Culture positive for Klebsiella pneumoniae that has cephalosporin resistant gene positive and Pseudomonas Pt started on meropenem 500 mg IV, continue for total of 6 weeks to finish by September 18, 2024 Follow up outpatient with Cardiology at [facility] after discharge for repeat TTE and possible outpatient cardiac MRI Unable to discharge to home as HD center does not cover Meropenem Dilated CBD CT of abdomen and pelvis on 08/07 [facility] found distended gallbladder and distal CBD dilation of 1.1 cm and possible filling deficit and distal CBD concerning for choledocholithiasis GI recommendation was for MRCP at [facility], however pt refused Pt currently asymptomatic without RUQ abdominal pain, no nausea or vomiting; has been eating and drinking without issue Currently no indication for MRCP, Consider GI consult and repeat imaging if pt develops symptoms Bilateral lower extremity wounds 2/2 Calciphylaxis Continue sodium thiosulfate 25 g IV 3 times weekly after dialysis Wound care (see notes) Analgesics for pain management Pt has so far declined debridement General surgery consult, require extensive debridement with the assistance of Plastic surgery for wound coverage in his much more extensive that can be handled at our facility. Patient will be best treated at a tertiary care center with multimodality treatment including plastic surgery and inpatient wound care. Flank wounds Wound care following Dr Pickens scheduled patient for flank wounds debridement on Thursday ESRD On HD / Anemia of chronic disease S/p 3 units PRBCs at [facility] Retacrit 99569 units x3 weekly post dialysis Follow CBC, transfuse as necessary HTN Continue amlodipine and clonidine Antiphospholipid syndrome Continue warfarin Daily INR with target range 2-3 GERD Continue PPI Polysubstance use disorder Continue methadone 100 mg daily and 95 mg at bedtime Mood disorder Continue hydroxyzine, trazodone, topiramate, and bupropion Full Code DVT Prophylaxis: On Warfarin reason for continued hospitalization: awaiting bed, needs iv abx Quality Stroke Does the patient have a stroke diagnosis?: No VTE Prior VTE?: No VTE Risk Level:: Medical - moderate - high VTE Device Contraindication: Treatment Not Indicated VTE Drug Contraindication: N/A - Med Ordered
[2024-09-02] MEDS: hydrOXYzine HCL 50 MG TABLET PO ×2 (12:54→21:25)
[2024-09-02] MEDS: Acetaminophen 325 MG TABLET 650 MG PO (12:54)
--- NOTE | 2024-09-02 13:26 | MHC.CLN ---
F/U PO INTAKE VARIABLE RANGING FROM 25-100% DIET REGULAR PT RECEIVING ENSURE TID TO PROMOTE WOUND HEALING SUPPLEMENT PROVIDES 1050KCALS, 60G PROTEIN MONITOR PO INTAKE AND ENCOURAGE SUPPLEMENTS
--- NOTE | 2024-09-02 14:25 | MHC.CM.PN ---
Patient is not cleared to discharge today. Patient is scheduled for debridement in the [facility].R. on Thursday09/05/24. STR for IV ABX. Patient will continue HD during STR. No bed offers have been received. DP STR via BLS.
[2024-09-02 15:27] VITALS: BP 148/89; PULSE 80; RESP 18; TEMP 36.6; O2SAT 91
[2024-09-02] MEDS: Warfarin Sodium 2.5 MG TABLET PO (18:11)
--- NOTE | 2024-09-02 18:54 | P.PNNP_ITS ---
Subjective Subjective Date of Service: 09/02/24 Interval history: seen and evaluated this morning ;no fever or chills; no other events ; Due HD tomorrow Physical Exam 2 Vital Signs: Vital Signs: Last Vital Signs Temp 97.9 F 09/02/24 15:27 Pulse 80 09/02/24 15:27 Resp 18 09/02/24 15:27 BP 148/89 H 09/02/24 15:27 Pulse Ox 91 L 09/02/24 15:27 O2 Del Method Room Air 09/02/24 15:27 O2 Flow Rate 2 09/02/24 03:19 BMI result Body Mass Index 27.4 Const: General: no acute distress Orientation/consciousness: patient oriented x3 Eyes: EOM: EOMs intact bilaterally Resp: Auscultation: diminished lung sounds Cardio: Rate: regular rate GI: Palpation (GI): Soft to palpation Neuro: General: patient oriented x3 Objective Data Labs 09/01/24 15:48 09/01/24 15:48 Labs: Laboratory Results - last 24 hr 09/02/24 06:03 PT 25.4 H INR 2.2 H Microbiology Microbiology Results: Microbiology 08/18/24 19:34 Blood - Venous Blood Culture - Final No growth after 5 days. 08/18/24 19:34 Blood - Venous Blood Culture - Final No growth after 5 days. Procedures Date of Service Date of Service: 09/02/24 Assessment & Plan Assessment and plan (1) Calciphylaxis: Status: Acute (2) End stage renal disease on dialysis: Status: Acute Plan Usually gets HD on TTS -due tomorrow Has a functioning HD catheter Na thiosulphate TTS as ordered No Vitamin D , calcitriol or ca based binders Phos binders with meals Procrit [id number] U 3 times a week TTS Wound debridement Thursday Shall follow along Progress Note: Quality Stroke Does the patient have a stroke diagnosis?: No
[2024-09-02 19:22] VITALS: BP 158/92; PULSE 81; RESP 20; TEMP 36.8; O2SAT 93
[2024-09-02] MEDS: methADONE HCl 20 MG/2 ML ORAL.CONC 95 MG PO (21:04)
[2024-09-02 21:07] VITALS: BP 158/92
[2024-09-02] MEDS: cloNIDine HCL 0.2 MG TABLET PO (21:07)
[2024-09-02] MEDS: Nystatin Powder 15 GM BOTTLE 1 APPL TOPICAL (21:09)
[2024-09-02] MEDS: Melatonin 3 MG TABLET 6 MG PO (21:24)
[2024-09-02] MEDS: traZODone HCL 100 MG TABLET PO (21:24)
[2024-09-02] MEDS: Doxepin HCl 10 MG CAPSULE PO (21:26)
[2024-09-03 03:18] VITALS: BP 139/85; PULSE 73; RESP 20; TEMP 36.1; O2SAT 94
--- NOTE | 2024-09-03 03:39 | PC.NURSE ---
Pt allowed to sleep through the night, Calm and cooperative with no apparent distress at this time, respirations even and non-labored with no apparent distress. Camera in place for safety.
[2024-09-03] MEDS: Omeprazole 20 MG CAPSULE.DR PO (05:44)
[2024-09-03] MEDS: vancomycin HCL 125 MG CAPSULE PO ×4 (05:44→22:02)
[2024-09-03 07:35] VITALS: BP 150/87; PULSE 72; RESP 16; TEMP 36.3; O2SAT 97
--- NOTE | 2024-09-03 09:17 | PC.NURSE ---
Patient in Dialysis
--- NOTE | 2024-09-03 10:59 | P.PNIM_ITS ---
Subjective Subjective Date of Service: 09/03/24 Interval History: seen and evaluated this morning seen in dialysis unit dressing changes last night reports pain no fever or chills no other events Review of Systems Review of Systems: Yes all other systems are reviewed and are negative Physical Exam 2 Vital Signs: Vital Signs: Last Vital Signs Temp 97.3 F 09/03/24 07:35 Pulse 72 09/03/24 07:35 Resp 16 09/03/24 07:35 BP 150/87 H 09/03/24 07:35 Pulse Ox 97 09/03/24 07:35 O2 Del Method Room Air 09/03/24 07:35 O2 Flow Rate 2 09/03/24 03:18 BMI result Body Mass Index 27.4 Const: Other: Constitutional : Awake, interactive, frail looking, not in distress Neck : Normal inspection, Supple Cardiovascular : RRR, no JVP, no lower extremity edema Respiratory : good bilateral air entry, no crackles, wheezes or rhonchi, on O2 supplement Gastrointestinal: soft, lax, Normal bowel sounds, Non tender Skin : Warm, Dry, bilateral lower extremities eschar , bilateral flank Neurological : Alert & oriented x3, No focal deficit Objective Data Active Medications Acetaminophen (Acetaminophen 325 Mg Tablet) 650 mg PO Q6H PRN PRN Reason: Pain, Mild 1-3,fever,headache Last Admin: 09/02/24 12:54 Dose: 650 mg Documented By: ARIS Albuterol Sulfate (Albuterol Sulfate 90 Mcg 8 Gm Inhaler) 2 puff INHALE RQ4H PRN PRN Reason: Wheezing Amlodipine Besylate (Amlodipine Besylate 10 Mg Tablet) 10 mg PO DAILY [facility]; Protocol Last Admin: 09/02/24 09:02 Dose: 10 mg Documented By: ARIS Bupropion HCl (Bupropion Hcl Xl 300 Mg Tab.Er.24h) 300 mg PO DAILY [facility] Last Admin: 09/02/24 09:02 Dose: 300 mg Documented By: ARIS Clonidine HCl (Clonidine Hcl 0.2 Mg Tablet) 0.2 mg PO BEDTIME [facility]; Protocol Last Admin: 09/02/24 21:07 Dose: 0.2 mg Documented By: KRISTEN Cyanocobalamin (Cyanocobalamin (Vitamin B-12) 100 Mcg Tablet) 100 mcg PO DAILY [facility] Last Admin: 09/02/24 09:02 Dose: 100 mcg Documented By: ARIS Doxepin HCl (Doxepin Hcl 10 Mg Capsule) 10 mg PO BEDTIME [facility] Last Admin: 09/02/24 21:26 Dose: 10 mg Documented By: KRISTEN Comments: unscheduled per previous double scan on 08/31 [employer]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 Epoetin Devin-epbx (Epoetin Devin-Epbx 10,000 Unit/Ml Vial) 8,000 unit IVPUSH TuThSa@1800 [facility] Last Admin: 09/02/24 07:11 Dose: Not Given Documented By: RONN Non-Admin Reason: Off unit: Dialysis Gabapentin (Gabapentin 600 Mg Tablet) 600 mg PO BID [facility] Last Admin: 09/02/24 21:08 Dose: 600 mg Documented By: KRISTEN Heparin Sodium (Porcine) (Heparin Sodium,Porcine 5,000 Unit/Ml Vial) 5,000 unit INTRACATH TUTHSA@1645 [facility] Last Admin: 09/01/24 21:41 Dose: Not Given Documented By: ELINA Non-Admin Reason: Given in Dialysis Hydroxyzine HCl (Hydroxyzine Hcl 50 Mg Tablet) 50 mg PO TID PRN PRN Reason: Anxiety Last Admin: 09/02/24 21:25 Dose: 50 mg Documented By: KRISTEN Sodium Thiosulfate 12.5 gm/ (Sodium Chloride) 200 mls @ 400 mls/hr IV Q30M [facility] Stop: 08/18/24 23:14 Magnesium Hydroxide (Milk Of Magnesia 30 Ml Oral.Susp) 30 ml PO DAILY PRN PRN Reason: Constipation Melatonin (Melatonin 3 Mg Tablet) 6 mg PO BEDTIME PRN PRN Reason: Insomnia Last Admin: 09/02/24 21:24 Dose: 6 mg Documented By: KRISTEN Meropenem (Meropenem 500 Mg Vial) 500 mg IV TuThSa@1800 [facility] Stop: 09/30/24 17:59 Last Admin: 09/01/24 22:55 Dose: 500 mg Documented By: NIKKI Comments: med late as pt came out late HD, med has schedule c onflict with Na thiosulfate Methadone HCl (Methadone Hcl 20 Mg/2 Ml Oral.Conc) 100 mg PO DAILY [facility] Last Admin: 09/02/24 09:02 Dose: 100 mg Documented By: ARIS Co-signed By: ESAU Methadone HCl (Methadone Hcl 20 Mg/2 Ml Oral.Conc) 95 mg PO BEDTIME [facility] Last Admin: 09/02/24 21:04 Dose: 95 mg Documented By: KRISTEN Co-signed By: URIEL Multivitamins/Vitamin C (Multivitamin Tablet) 1 tab PO DAILY [facility] Last Admin: 09/02/24 09:02 Dose: 1 tab Documented By: ARIS Non-Formulary Medication (Lumateperone [Caplyta]) 42 mg PO DAILY [facility] Nystatin (Nystatin Oral Susp 500,000 Unit/5 Ml Oral.Susp) 100,000 unit PO DAILY [facility]; Protocol PRN Reason: FLARES Nystatin (Nystatin Powder 15 Gm Bottle) 1 appl TOPICAL BID [facility]; Protocol Last Admin: 09/02/24 21:09 Dose: 1 appl Documented By: KRISTEN Omeprazole (Omeprazole 20 Mg Capsule.Dr) 20 mg PO DAILY@0630 [facility] Last Admin: 09/03/24 05:44 Dose: 20 mg Documented By: KRISTEN Oxycodone HCl (Oxycodone Hcl Immed Release 5 Mg Tablet) 5 mg PO Q4H PRN PRN Reason: Pain, Severe (Pain Scale 7-10) Last Admin: 09/02/24 21:07 Dose: 5 mg Documented By: KRISTEN Polyethylene Glycol (Polyethylene Glycol 3350 17 Gm Powd.Pack) 17 gm PO DAILY PRN PRN Reason: Constipation Quetiapine Fumarate (Quetiapine Fumarate 50 Mg Tablet) 50 mg PO TID PRN PRN Reason: Anxiety Last Admin: 08/20/24 23:17 Dose: 50 mg Documented By: GEOVANNA Sodium Chloride (0.9 % Sodium Chloride Flush 3 Ml Syringe) 3 ml IVFLUSH QSHIFT [facility] Last Admin: 09/02/24 22:59 Dose: 3 ml Documented By: KRISTEN Sodium Hypochlorite (Sodium Hypochlorite 0.5% 473 Ml Solution) 1 appl TOPICAL DAILY [facility] Last Admin: 09/02/24 18:08 Dose: Not Given Documented By: ARIS Non-Admin Reason: Patient Refused Topiramate (Topiramate 100 Mg Tablet) 100 mg PO BID [facility] Last Admin: 09/02/24 21:07 Dose: 100 mg Documented By: KRISTEN Trazodone HCl (Trazodone Hcl 100 Mg Tablet) 100 mg PO BEDTIME PRN PRN Reason: Insomnia Last Admin: 09/02/24 21:24 Dose: 100 mg Documented By: KRISTEN Vancomycin HCl (Vancomycin Hcl 125 Mg Capsule) 125 mg PO Q6H [facility] Stop: 09/20/24 10:59 Last Admin: 09/03/24 05:44 Dose: 125 mg Documented By: KRISTEN Warfarin Sodium (Warfarin Sodium 2.5 Mg Tablet) 2.5 mg PO DAILY@1800 [facility] Last Admin: 09/02/24 18:11 Dose: 2.5 mg Documented By: ARIS Labs 09/01/24 15:48 09/01/24 15:48 Assessment and Plan (1) Clostridium difficile infection: Status: Acute (2) Calciphylaxis: Status: Acute (3) 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 Pt was transferred to [place] due to concern for right atrial mass associated dialysis catheter tip, and pt is now being transferred back to [facility] for continued treatment and STR placement. Acute C diff infection Stool studies positive for C diff on 08/18 no diarrhea overnight vancomycin 125 mg p.o. q.6 ID following; continue po Vancomycin through the course of IV Abx and 2 days after (september 20, 2024). new LUE swelling negative doppler Infective endocarditis with ESBL Klebsiella Bacteremia complicated with with Right atrial mass TTE at [place] showed severely dilated left atrium and left ventricle, LVEF 59%, adherent mass with mobile components of left atrium Culture positive for Klebsiella pneumoniae that has cephalosporin resistant gene positive and Pseudomonas Pt started on meropenem 500 mg IV, continue for total of 6 weeks to finish by September 18, 2024 Follow up outpatient with Cardiology at [facility] after discharge for repeat TTE and possible outpatient cardiac MRI Unable to discharge to home as HD center does not cover Meropenem Dilated CBD CT of abdomen and pelvis on 08/07 [place] found distended gallbladder and distal CBD dilation of 1.1 cm and possible filling deficit and distal CBD concerning for choledocholithiasis GI recommendation was for MRCP at [place], however pt refused Pt currently asymptomatic without RUQ abdominal pain, no nausea or vomiting; has been eating and drinking without issue Currently no indication for MRCP, Consider GI consult and repeat imaging if pt develops symptoms Bilateral lower extremity wounds 2/2 Calciphylaxis Continue sodium thiosulfate 25 g IV 3 times weekly after dialysis Wound care (see notes) Analgesics for pain management Pt has so far declined debridement General surgery consult, require extensive debridement with the assistance of Plastic surgery for wound coverage in his much more extensive that can be handled at our facility. Patient will be best treated at a tertiary care center with multimodality treatment including plastic surgery and inpatient wound care. Flank wounds Wound care following Dr Pickens scheduled patient for flank wounds debridement on Thursday ESRD On HD //Thu Anemia of chronic disease S/p 3 units PRBCs at [place] Retacrit 25818 units x3 weekly post dialysis Follow CBC, transfuse as necessary HTN Continue amlodipine and clonidine Antiphospholipid syndrome Continue warfarin Daily INR with target range 2-3 GERD Continue PPI Polysubstance use disorder Continue methadone 100 mg daily and 95 mg at bedtime Mood disorder Continue hydroxyzine, trazodone, topiramate, and bupropion Full Code DVT Prophylaxis: On Warfarin reason for continued hospitalization: awaiting bed, needs iv abx Quality Stroke Does the patient have a stroke diagnosis?: No VTE Prior VTE?: No VTE Risk Level:: Medical - moderate - high VTE Device Contraindication: Treatment Not Indicated VTE Drug Contraindication: N/A - Med Ordered
[2024-09-03] MEDS: hydrOXYzine HCL 50 MG TABLET PO ×2 (11:54→20:16)
[2024-09-03] MEDS: oxyCODONE HCl Immed Release 5 MG TABLET PO ×3 (11:55→19:57)
[2024-09-03 12:34] LABS: INTERNATIONAL NORM RATIO 2.1 (0.9-1.1); Prothrombin Time 24.5 SEC (10.9-12.4)
[2024-09-03 13:30] VITALS: BP 176/103; PULSE 90; RESP 18; TEMP 37.1; O2SAT 91
[2024-09-03] MEDS: Multivitamin TABLET 1 TAB PO (13:32)
[2024-09-03] MEDS: amLODIPine Besylate 10 MG TABLET PO (13:32)
[2024-09-03] MEDS: Nystatin Powder 15 GM BOTTLE 1 APPL TOPICAL ×2 (13:33→21:25)
[2024-09-03] MEDS: Cyanocobalamin (Vitamin B-12) 100 MCG TABLET PO (13:33)
[2024-09-03] MEDS: buPROPion HCl XL 300 MG TAB.ER.24H PO (13:33)
[2024-09-03] MEDS: methADONE HCl 20 MG/2 ML ORAL.CONC 100 MG PO (13:35)
[2024-09-03] MEDS: Gabapentin 600 MG TABLET PO ×2 (13:39→20:13)
[2024-09-03] MEDS: Topiramate 100 MG TABLET PO ×2 (13:39→20:13)
[2024-09-03] MEDS: 0.9 % Sodium Chloride Flush 3 ML SYRINGE IVFLUSH ×2 (13:40→22:02)
--- NOTE | 2024-09-03 13:49 | PC.NURSE ---
IT CONSULTING MANAGER reported elevated BP 176/103,patient anxious at this time ,refuses for RN to recheck BP,patient also refuses Dakins solution to be used on her drsg ,Dr. Frankel notified
[2024-09-03] MEDS: Acetaminophen 325 MG TABLET 650 MG PO (14:21)
--- NOTE | 2024-09-03 14:28 | PC.NURSE ---
Patient yelling at RN multiple times since returning from dialysis and than apologized for her behavior stating she has a lot going on,yelling at RN again while walking to the bathroom with the walker,ERLINDA Pereira will take over patient care now
[2024-09-03 15:28] VITALS: BP 161/89; PULSE 79; RESP 16; TEMP 36.9; O2SAT 98
[2024-09-03] MEDS: Warfarin Sodium 2.5 MG TABLET PO (17:56)
[2024-09-03] MEDS: Meropenem 500 MG VIAL IV (18:07)
[2024-09-03] MEDS: Epoetin Alfa-epbx 10,000 UNIT/ML VIAL 8000 UNIT IVPUSH (18:57)
[2024-09-03] MEDS: SODIUM CHLORIDE 0.9% IV (18:57)
[2024-09-03] MEDS: SODIUM THIOSULFATE IV (18:57)
--- NOTE | 2024-09-03 19:12 | PC.NURSE ---
Addendum entered by Irena Templeton RN 09/03/24 19:22: Pt reporting IV leaking at 1922. IV gtt turned off at this time. Original Note: RN administered multiple IVP medications to pt via #22 ultrasound guided IV to R upper arm with no c/o pain or tenderness. Sodium thiosulfate drip initiated at 1907. At 1910 pt c/o burning to IV site and demanding pump be turned off. RN attempted to slow rate to 200mL/hr and pt said I still see the liquid dripping turn it off. RN reached out to pharmacy requesting to slow down IV, pharmacist Rhys Fofana okayed slowing gtt. Normal saline y-sited to IV tubing by RN to attempt to help burning sensation. Pt tolerating slower rate of 200mL/hr with normal saline y-sited. Oncoming nurse at bedside and aware. Plan of care ongoing.
[2024-09-03 19:24] VITALS: BP 150/91; PULSE 67; RESP 20; TEMP 36.2; O2SAT 97
[2024-09-03] MEDS: methADONE HCl 20 MG/2 ML ORAL.CONC 95 MG PO (20:10)
--- NOTE | 2024-09-03 20:10 | PC.NURSE ---
ERLINDA Latham attempted to put in new U/S guided IV, pt refused the only possible place in [facility], Dr. Salmon made aware, and attempting to see if ER physician can place EJ line. No new orders at this time.
[2024-09-03] MEDS: Doxepin HCl 10 MG CAPSULE PO (20:12)
[2024-09-03 20:13] VITALS: BP 150/91
[2024-09-03] MEDS: cloNIDine HCL 0.2 MG TABLET PO (20:13)
[2024-09-03] MEDS: Melatonin 3 MG TABLET 6 MG PO (20:16)
[2024-09-03] MEDS: traZODone HCL 100 MG TABLET PO (20:16)
--- NOTE | 2024-09-03 21:30 | PC.NURSE ---
This RN encouraged patient to let me reinforce or change hip dressings patient refused.
--- NOTE | 2024-09-03 21:40 | PC.NURSE ---
This RN called Pharmacy about Sodium Thiosulfate, per pharmacy, Pharmacy is saying they only have two vials of sodium Thiosulfate left, that is suppose to be given on Thursday, He says it is up to Doctor we can give the dose tomorrow, but there wont be any more for after dialysis on Thursday. It wont do much good given tomorrow since it is suppose to be after dialysis. So we will have to waste this dose if we don't get it in soon. This RN encouraged patient to get U/S in [facility], awaiting placement, will attempt to give Sodium Thiosulfate, per pharmacy we may run out of time to give.
[2024-09-04] MEDS: oxyCODONE HCl Immed Release 5 MG TABLET PO ×5 (02:05→20:15)
[2024-09-04 03:11] VITALS: BP 129/76; PULSE 76; RESP 20; TEMP 37.2; O2SAT 95
[2024-09-04] MEDS: vancomycin HCL 125 MG CAPSULE PO ×4 (05:49→23:13)
[2024-09-04] MEDS: Omeprazole 20 MG CAPSULE.DR PO (05:49)
[2024-09-04 06:27] LABS: INTERNATIONAL NORM RATIO 2.1 (0.9-1.1); Prothrombin Time 24.8 SEC (10.9-12.4)
[2024-09-04 07:22] VITALS: BP 159/89; PULSE 76; RESP 16; TEMP 36.8; O2SAT 97
[2024-09-04] MEDS: methADONE HCl 20 MG/2 ML ORAL.CONC 100 MG PO (08:23)
[2024-09-04] MEDS: Topiramate 100 MG TABLET PO ×2 (08:23→20:14)
[2024-09-04] MEDS: Gabapentin 600 MG TABLET PO ×2 (08:23→20:13)
[2024-09-04] MEDS: Multivitamin TABLET 1 TAB PO (08:23)
[2024-09-04] MEDS: buPROPion HCl XL 300 MG TAB.ER.24H PO (08:23)
[2024-09-04] MEDS: 0.9 % Sodium Chloride Flush 3 ML SYRINGE IVFLUSH ×3 (08:23→23:15)
[2024-09-04] MEDS: amLODIPine Besylate 10 MG TABLET PO (08:23)
[2024-09-04] MEDS: Cyanocobalamin (Vitamin B-12) 100 MCG TABLET PO (08:23)
[2024-09-04] MEDS: Nystatin Powder 15 GM BOTTLE 1 APPL TOPICAL (08:26)
[2024-09-04] MEDS: hydrOXYzine HCL 50 MG TABLET PO ×2 (11:06→20:14)
--- NOTE | 2024-09-04 11:43 | P.PNIM_ITS ---
Subjective Subjective Date of Service: 09/04/24 Interval History: seen and evaluated this morning dressing changes daily reports pain at wounds sites no fever or chills no other events Review of Systems Review of Systems: Yes all other systems are reviewed and are negative Physical Exam 2 Vital Signs: Vital Signs: Last Vital Signs Temp 98.3 F 09/04/24 07:22 Pulse 76 09/04/24 07:22 Resp 16 09/04/24 07:22 BP 159/89 H 09/04/24 07:22 Pulse Ox 97 09/04/24 07:22 O2 Del Method Room Air 09/04/24 07:22 O2 Flow Rate 2 09/04/24 03:11 BMI result Body Mass Index 27.4 Const: Other: Constitutional : Awake, interactive, frail looking, not in distress Neck : Normal inspection, Supple Cardiovascular : RRR, no JVP, no lower extremity edema Respiratory : good bilateral air entry, no crackles, wheezes or rhonchi, on O2 supplement Gastrointestinal: soft, lax, Normal bowel sounds, Non tender Skin : Warm, Dry, bilateral lower extremities eschar , bilateral flank wounds covered with dressing Neurological : Alert & oriented x3, No focal deficit Objective Data Active Medications Acetaminophen (Acetaminophen 325 Mg Tablet) 650 mg PO Q6H PRN PRN Reason: Pain, Mild 1-3,fever,headache Last Admin: 09/03/24 14:21 Dose: 650 mg Documented By: PRINCESS Albuterol Sulfate (Albuterol Sulfate 90 Mcg 8 Gm Inhaler) 2 puff INHALE RQ4H PRN PRN Reason: Wheezing Amlodipine Besylate (Amlodipine Besylate 10 Mg Tablet) 10 mg PO DAILY [facility]; Protocol Last Admin: 09/04/24 08:23 Dose: 10 mg Documented By: NAMAN Bupropion HCl (Bupropion Hcl Xl 300 Mg Tab.Er.24h) 300 mg PO DAILY [facility] Last Admin: 09/04/24 08:23 Dose: 300 mg Documented By: NAMAN Clonidine HCl (Clonidine Hcl 0.2 Mg Tablet) 0.2 mg PO BEDTIME [facility]; Protocol Last Admin: 09/03/24 20:13 Dose: 0.2 mg Documented By: KRISTEN Cyanocobalamin (Cyanocobalamin (Vitamin B-12) 100 Mcg Tablet) 100 mcg PO DAILY [facility] Last Admin: 09/04/24 08:23 Dose: 100 mcg Documented By: NAMAN Doxepin HCl (Doxepin Hcl 10 Mg Capsule) 10 mg PO BEDTIME [facility] Last Admin: 09/03/24 20:12 Dose: 10 mg Documented By: KRISTEN Epoetin Devin-epbx (Epoetin Devin-Epbx 10,000 Unit/Ml Vial) 8,000 unit IVPUSH TuThSa@1800 [facility] Last Admin: 09/03/24 18:57 Dose: 8,000 unit Documented By: POONAM Gabapentin (Gabapentin 600 Mg Tablet) 600 mg PO BID [facility] Last Admin: 09/04/24 08:23 Dose: 600 mg Documented By: NAMAN Heparin Sodium (Porcine) (Heparin Sodium,Porcine 5,000 Unit/Ml Vial) 5,000 unit INTRACATH TUTHSA@1645 [facility] Last Admin: 09/03/24 13:56 Dose: Not Given Documented By: PRINCESS Non-Admin Reason: dialysis order Hydroxyzine HCl (Hydroxyzine Hcl 50 Mg Tablet) 50 mg PO TID PRN PRN Reason: Anxiety Last Admin: 09/04/24 11:06 Dose: 50 mg Documented By: NAMAN Sodium Thiosulfate 12.5 gm/ (Sodium Chloride) 200 mls @ 400 mls/hr IV Q30M [facility] Stop: 08/18/24 23:14 Magnesium Hydroxide (Milk Of Magnesia 30 Ml Oral.Susp) 30 ml PO DAILY PRN PRN Reason: Constipation Melatonin (Melatonin 3 Mg Tablet) 6 mg PO BEDTIME PRN PRN Reason: Insomnia Last Admin: 09/03/24 20:16 Dose: 6 mg Documented By: KRISTEN Meropenem (Meropenem 500 Mg Vial) 500 mg IV TuThSa@1800 [facility] Stop: 09/30/24 17:59 Last Admin: 09/03/24 18:07 Dose: 500 mg Documented By: POONAM Methadone HCl (Methadone Hcl 20 Mg/2 Ml Oral.Conc) 100 mg PO DAILY [facility] Last Admin: 09/04/24 08:23 Dose: 100 mg Documented By: NAMAN Co-signed By: POONAM Methadone HCl (Methadone Hcl 20 Mg/2 Ml Oral.Conc) 95 mg PO BEDTIME [facility] Last Admin: 09/03/24 20:10 Dose: 95 mg Documented By: KRISTEN Co-signed By: JAN Multivitamins/Vitamin C (Multivitamin Tablet) 1 tab PO DAILY [facility] Last Admin: 09/04/24 08:23 Dose: 1 tab Documented By: NAMAN Nystatin (Nystatin Oral Susp 500,000 Unit/5 Ml Oral.Susp) 100,000 unit PO DAILY [facility]; Protocol PRN Reason: FLARES Nystatin (Nystatin Powder 15 Gm Bottle) 1 appl TOPICAL BID [facility]; Protocol Last Admin: 09/04/24 08:26 Dose: 1 appl Documented By: NAMAN Omeprazole (Omeprazole 20 Mg Capsule.Dr) 20 mg PO DAILY@0630 [facility] Last Admin: 09/04/24 05:49 Dose: 20 mg Documented By: KRISTEN Oxycodone HCl (Oxycodone Hcl Immed Release 5 Mg Tablet) 5 mg PO Q4H PRN PRN Reason: Pain, Severe (Pain Scale 7-10) Last Admin: 09/04/24 11:06 Dose: 5 mg Documented By: NAMAN Polyethylene Glycol (Polyethylene Glycol 3350 17 Gm Powd.Pack) 17 gm PO DAILY PRN PRN Reason: Constipation Quetiapine Fumarate (Quetiapine Fumarate 50 Mg Tablet) 50 mg PO TID PRN PRN Reason: Anxiety Last Admin: 08/20/24 23:17 Dose: 50 mg Documented By: GEOVANNA Sodium Chloride (0.9 % Sodium Chloride Flush 3 Ml Syringe) 3 ml IVFLUSH QSHIFT [facility] Last Admin: 09/04/24 08:23 Dose: 3 ml Documented By: NAMAN Sodium Hypochlorite (Sodium Hypochlorite 0.5% 473 Ml Solution) 1 appl TOPICAL DAILY [facility] Last Admin: 09/03/24 13:34 Dose: Not Given Documented By: PRINCESS Non-Admin Reason: pt refused Topiramate (Topiramate 100 Mg Tablet) 100 mg PO BID [facility] Last Admin: 09/04/24 08:23 Dose: 100 mg Documented By: NAMAN Trazodone HCl (Trazodone Hcl 100 Mg Tablet) 100 mg PO BEDTIME PRN PRN Reason: Insomnia Last Admin: 09/03/24 20:16 Dose: 100 mg Documented By: KRISTEN Vancomycin HCl (Vancomycin Hcl 125 Mg Capsule) 125 mg PO Q6H [facility] Stop: 09/20/24 10:59 Last Admin: 09/04/24 11:06 Dose: 125 mg Documented By: NAMAN Warfarin Sodium (Warfarin Sodium 2.5 Mg Tablet) 2.5 mg PO DAILY@1800 [facility] Last Admin: 09/03/24 17:56 Dose: 2.5 mg Documented By: POONAM Labs 09/01/24 15:48 09/01/24 15:48 Labs: Laboratory Results - last 24 hr 09/03/24 09/04/24 09/04/24 12:01 05:25 05:31 Hold Purple Top SEE NOTE PT 24.5 H 24.8 H INR 2.1 H 2.1 H Assessment and Plan (1) Clostridium difficile infection: Status: Acute (2) Calciphylaxis: Status: Acute (3) 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 Pt was transferred to [place] due to concern for right atrial mass associated dialysis catheter tip, and pt is now being transferred back to [facility] for continued treatment and STR placement. Acute C diff infection Stool studies positive for C diff on 08/18 no diarrhea overnight vancomycin 125 mg p.o. q.6 ID following; continue po Vancomycin through the course of IV Abx and 2 days after (september 20, 2024). new LUE swelling negative doppler Infective endocarditis with ESBL Klebsiella Bacteremia complicated with with Right atrial mass TTE at [place] showed severely dilated left atrium and left ventricle, LVEF 59%, adherent mass with mobile components of left atrium Culture positive for Klebsiella pneumoniae that has cephalosporin resistant gene positive and Pseudomonas Pt started on meropenem 500 mg IV, continue for total of 6 weeks to finish by September 18, 2024 Follow up outpatient with Cardiology at [facility] after discharge for repeat TTE and possible outpatient cardiac MRI Unable to discharge to home as HD center does not cover Meropenem Dilated CBD CT of abdomen and pelvis on 08/07 [place] found distended gallbladder and distal CBD dilation of 1.1 cm and possible filling deficit and distal CBD concerning for choledocholithiasis GI recommendation was for MRCP at [place], however pt refused Pt currently asymptomatic without RUQ abdominal pain, no nausea or vomiting; has been eating and drinking without issue Currently no indication for MRCP, Consider GI consult and repeat imaging if pt develops symptoms Bilateral lower extremity wounds 2/2 Calciphylaxis Continue sodium thiosulfate 25 g IV 3 times weekly after dialysis Wound care (see notes) Analgesics for pain management Pt has so far declined debridement General surgery consult, require extensive debridement with the assistance of Plastic surgery for wound coverage in his much more extensive that can be handled at our facility. Patient will be best treated at a tertiary care center with multimodality treatment including plastic surgery and inpatient wound care. Flank wounds Wound care following Dr Pickens scheduled patient for flank wounds debridement on Thursday ESRD On HD //Thu Anemia of chronic disease S/p 3 units PRBCs at [place] Retacrit 16295 units x3 weekly post dialysis Follow CBC, transfuse as necessary HTN Continue amlodipine and clonidine Antiphospholipid syndrome Continue warfarin Daily INR with target range 2-3 GERD Continue PPI Polysubstance use disorder Continue methadone 100 mg daily and 95 mg at bedtime Mood disorder Continue hydroxyzine, trazodone, topiramate, and bupropion Full Code DVT Prophylaxis: On Warfarin reason for continued hospitalization: awaiting bed, needs iv abx Quality Stroke Does the patient have a stroke diagnosis?: No VTE Prior VTE?: No VTE Risk Level:: Medical - moderate - high VTE Device Contraindication: Treatment Not Indicated VTE Drug Contraindication: N/A - Med Ordered
[2024-09-04 15:45] VITALS: BP 130/77; PULSE 78; RESP 18; TEMP 37; O2SAT 98
[2024-09-04] MEDS: Warfarin Sodium 2.5 MG TABLET PO (17:32)
[2024-09-04 19:34] VITALS: BP 147/87; PULSE 87; RESP 17; TEMP 37; O2SAT 98
[2024-09-04] MEDS: methADONE HCl 20 MG/2 ML ORAL.CONC 95 MG PO (20:11)
[2024-09-04] MEDS: Acetaminophen 325 MG TABLET 650 MG PO (20:13)
[2024-09-04] MEDS: Melatonin 3 MG TABLET 6 MG PO (20:14)
[2024-09-04] MEDS: cloNIDine HCL 0.2 MG TABLET PO (20:14)
[2024-09-04] MEDS: Doxepin HCl 10 MG CAPSULE PO (20:14)
[2024-09-05] VITALS (10 sets, daily range): BP systolic 112–134; BP diastolic 75–90; PULSE 58–76; RESP 14–20; TEMP 36–36.8; O2SAT 93–97
--- NOTE | 2024-09-05 | ECG_ITS ---
Test Reason : preop Blood Pressure : */* mmHG Vent. Rate : 72 BPM Atrial Rate : 72 BPM P-R Int : 220 ms QRS Dur : 98 ms QT Int : 444 ms P-R-T Axes : 60 30 96 degrees QTcB Int : 486 ms Sinus rhythm with 1st degree A-V block Nonspecific T wave abnormality Prolonged QT Abnormal ECG When compared with ECG of 29-May-2024 20:26, AR interval has increased Nonspecific T wave abnormality no longer evident in Inferior leads Nonspecific T wave abnormality, improved in Anterior leads QT has lengthened Referred By: Karla Faulkner Electronically Signed By: Juan Washington
[2024-09-05 07:07] LABS: Basophils Absolute Auto 0.1 X10*3/uL (0.0-0.2); Basophils Percent Auto 0.8 % (0-2); Eosinophils Absolute Auto 0.5 X10*3/uL (0.0-0.4); Eosinophils Percent Auto 4.7 % (0-4); Hematocrit 27.1 % (37.0-47.0); Hemoglobin 8.4 g/dl (12.0-16.0); Imm Gran Abs Auto 0.11 X10*3/uL (0.00-0.03); Lymphocytes Absolute Auto 2.2 X10*3/uL (1.2-4.9); Lymphocytes Percent Auto 20.3 % (20-40); MANUAL DIFF FLAG SCAN; Mean Corpuscular Volume 90.3 fL (80.0-98.0); Mean Platelet Volume 10.8 fL (9.4-12.3); Monocytes Absolute Auto 1.5 X10*3/uL (0.1-1.2); Monocytes Percent Auto 14.2 % (2-11); NRBC Pct Auto 0.4 /100WBC (0.0-0.2); Neutrophils Absolute Auto 6.3 x10*3/uL (2.0-8.3); Platelet Count 448 X10*3/uL (160-400); Red Cell Distribution Width 20.1 % (11.0-16.0); SCAN SMEAR FLAG 1; White Blood Count 10.6 X10*3/uL (4.8-10.8)
[2024-09-05 07:13] LABS: INTERNATIONAL NORM RATIO 2.2 (0.9-1.1); Prothrombin Time 25.1 SEC (10.9-12.4)
[2024-09-05 07:26] LABS: Anion Gap 16 (12-20); Blood Urea Nitrogen 50 mg/dL (9-16); Calcium 8.9 mg/dL (8.4-10.2); Carbon Dioxide 26 mmol/L (22-29); Chloride 100 mmol/L (96-108); Creatinine Clr Calc Pharmacy 21.4; Estimated Glomerular Filt Rate 13; Glucose Random 71 mg/dL (60-115); Sodium 137 mmol/L (135-145)
[2024-09-05 07:33] LABS: SLIDE REVIEW VERIFIED
[2024-09-05] MEDS: Multivitamin TABLET 1 TAB PO (07:54)
[2024-09-05] MEDS: oxyCODONE HCl Immed Release 5 MG TABLET PO ×3 (07:54→20:41)
[2024-09-05] MEDS: 0.9 % Sodium Chloride Flush 3 ML SYRINGE IVFLUSH ×3 (07:55→20:43)
[2024-09-05] MEDS: Cyanocobalamin (Vitamin B-12) 100 MCG TABLET PO (07:55)
[2024-09-05] MEDS: methADONE HCl 20 MG/2 ML ORAL.CONC 100 MG PO (07:55)
[2024-09-05] MEDS: Gabapentin 600 MG TABLET PO ×2 (07:55→20:42)
[2024-09-05] MEDS: amLODIPine Besylate 10 MG TABLET PO (07:55)
[2024-09-05] MEDS: buPROPion HCl XL 300 MG TAB.ER.24H PO (07:55)
[2024-09-05] MEDS: Topiramate 100 MG TABLET PO ×2 (07:55→20:42)
[2024-09-05] MEDS: vancomycin HCL 125 MG CAPSULE PO ×3 (08:37→22:21)
--- NOTE | 2024-09-05 10:25 | HO.ANESPROP2 ---
HPI - Anesthesia Eval Consult details Narrative: 43 yo female patient. 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) Renal failure (Acute) Leukocytosis (Acute) Wounds, multiple open, lower extremity (Acute) Eschar of lower leg (Acute) Chronic liver disease (Acute) End stage renal disease on dialysis (Acute) Dialysis patient (Acute) Cirrhosis (Acute) Pain (Acute) Wounds, multiple open, lower extremity (Acute) Decubitus skin ulcer (Acute) Cellulitis (Acute) Traumatic leg injury (Acute) Sphincter of Oddi dysfunction (Acute) Chronic liver disease (Acute) Migraines (Acute) Hyperkalemia (Acute) Constipation (Acute) Acute cellulitis (Acute) Sinusitis (Acute) Viral illness (Acute) Dysuria (Acute) UTI (urinary tract infection) (Acute) Cocaine use disorder (Acute)since teenage years MDD (major depressive disorder), recurrent episode, moderate (Acute) Pain and swelling of ankle (Acute) Chronic migraine without aura (Acute) Pulmonary HTN (Acute) Chest pressure (Acute) Overactive bladder (Acute) Acute on chronic kidney failure (Acute) CKD (chronic kidney disease) (Acute) Antiphospholipid antibody syndrome (Acute) Cellulitis and abscess of left lower extremity (Acute) Hypertension (Acute) HERSON (generalized anxiety disorder) (Acute) HTN (hypertension) (Acute) Candidemia (Acute) Bradycardia (Acute) MRSA bacteremia (Acute) Septic embolism (Acute) DVT (deep venous thrombosis) (Acute) Pneumonia (Acute) 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) 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 Past Medical History Medical History Stroke 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 Bacteremia due to Klebsiella pneumoniae Calciphylaxis with nonhealing ulcer of leg Hemodialysis patient Eschar of lower leg End stage renal disease on dialysis Secondary hyperparathyroidism (of renal origin) Leukocytosis Bacteremia Accelerated essential hypertension Chronic liver disease Tobacco abuse Left tibial fracture Opioid use disorder Acute renal failure superimposed on chronic kidney disease Cocaine abuse CKD (chronic kidney disease) Antiphospholipid antibody syndrome MDD (major depressive disorder), recurrent episode, moderate Opioid use disorder, severe, dependence Cocaine use disorder Cellulitis Substance abuse Seizures Candidemia Opioid use disorder, severe, dependence PTSD (post-traumatic stress disorder) Bipolar disorder Opiate abuse, continuous Pulmonary emboli DVT (deep venous thrombosis) Sander filter in place Pneumonia Lupus Lupus (systemic lupus erythematosus) Family History Family history of problems with anesthesia: No Surgical History Surgical History History of appendectomy Hx of splenectomy History of Problems with Anesthesia: No Social History Social History Household Members: None Housing: Apartment Housing Other:: lIVING IN A Program House Do you presently have visiting nurse or other home services: Yes (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 and vna's.) Alcohol intake: never Patient Tobacco Use Status: Current everyday Tobacco user Tobacco use type: Cigarette Cigarettes Per Day: 2 Years Smoked: 24 Smoked in Last 30 Days: No e-Cigarette/Vaping Use: Never Used Patient Interested in Nicotine Replacement: No Patient Given Instructions on How to Stop Smoking: No Second Hand Smoke Exposure: No Use of substances other than those prescribed or required for medical reasons: No Substance Use Type: Crack/Cocaine Currently Displaying Signs/Symptoms of Drug Intoxication Withdrawal: No Have you been hit, kicked, punched, or otherwise hurt by someone within the past year? If so, by whom?: No Do you feel safe in your current relationship?: No Current Relationship Is there a partner from a previous relationship who is making you feel unsafe now?: No Are you made to feel afraid or neglected: No Advance Directives: Yes Advance Directives on File: Yes Advance Directives Date on File: 02/14/21 Do you have a plan to hurt others: No Plan Recently lost weight without trying: No How much weight loss: Not applicable Eating poorly because of decreased appetite: No Nutrition screen score: 0 Nutrition Risks: No Nutritional Risk Patient : No : No Poor oral hygiene: No service: No Current occupational status: employed and student Sexual orientation: Did not discuss Cognitive needs: No Hearing needs: No Vision needs: No Meds Allergies Allergy/AdvReac Type Severity Reaction Status Date / Time Iodinated Contrast Media Allergy Rash Verified 09/05/24 10:27 [Contrast Dye] Active Medications: Current Medications Acetaminophen (Acetaminophen 325 Mg Tablet) 650 mg PO Q6H PRN PRN Reason: Pain, Mild 1-3,fever,headache Last Admin: 09/04/24 20:13 Dose: 650 mg Albuterol Sulfate (Albuterol Sulfate 90 Mcg 8 Gm Inhaler) 2 puff INHALE RQ4H PRN PRN Reason: Wheezing Amlodipine Besylate (Amlodipine Besylate 10 Mg Tablet) 10 mg PO DAILY [facility]; Protocol Last Admin: 09/05/24 07:55 Dose: 10 mg Bupropion HCl (Bupropion Hcl Xl 300 Mg Tab.Er.24h) 300 mg PO DAILY [facility] Last Admin: 09/05/24 07:55 Dose: 300 mg Clonidine HCl (Clonidine Hcl 0.2 Mg Tablet) 0.2 mg PO BEDTIME [facility]; Protocol Last Admin: 09/04/24 20:14 Dose: 0.2 mg Cyanocobalamin (Cyanocobalamin (Vitamin B-12) 100 Mcg Tablet) 100 mcg PO DAILY [facility] Last Admin: 09/05/24 07:55 Dose: 100 mcg Doxepin HCl (Doxepin Hcl 10 Mg Capsule) 10 mg PO BEDTIME [facility] Last Admin: 09/04/24 20:14 Dose: 10 mg Epoetin Aldo-epbx (Epoetin Aldo-Epbx 10,000 Unit/Ml Vial) 8,000 unit IVPUSH TuThSa@1800 [facility] Last Admin: 09/03/24 18:57 Dose: 8,000 unit Gabapentin (Gabapentin 600 Mg Tablet) 600 mg PO BID [facility] Last Admin: 09/05/24 07:55 Dose: 600 mg Heparin Sodium (Porcine) (Heparin Sodium,Porcine 5,000 Unit/Ml Vial) 5,000 unit INTRACATH TUTHSA@1645 [facility] Last Admin: 09/03/24 13:56 Dose: Not Given Hydroxyzine HCl (Hydroxyzine Hcl 50 Mg Tablet) 50 mg PO TID PRN PRN Reason: Anxiety Last Admin: 09/04/24 20:14 Dose: 50 mg Sodium Thiosulfate 12.5 gm/ (Sodium Chloride) 200 mls @ 400 mls/hr IV Q30M [facility] Stop: 08/18/24 23:14 Sodium Chloride (Ns) 1,000 mls @ 50 mls/hr IVCONT .Q20H [facility] Magnesium Hydroxide (Milk Of Magnesia 30 Ml Oral.Susp) 30 ml PO DAILY PRN PRN Reason: Constipation Melatonin (Melatonin 3 Mg Tablet) 6 mg PO BEDTIME PRN PRN Reason: Insomnia Last Admin: 09/04/24 20:14 Dose: 6 mg Meropenem (Meropenem 500 Mg Vial) 500 mg IV TuThSa@1800 [facility] Stop: 09/30/24 17:59 Last Admin: 09/03/24 18:07 Dose: 500 mg Methadone HCl (Methadone Hcl 20 Mg/2 Ml Oral.Conc) 100 mg PO DAILY [facility] Last Admin: 09/05/24 07:55 Dose: 100 mg Methadone HCl (Methadone Hcl 20 Mg/2 Ml Oral.Conc) 95 mg PO BEDTIME [facility] Last Admin: 09/04/24 20:11 Dose: 95 mg Multivitamins/Vitamin C (Multivitamin Tablet) 1 tab PO DAILY [facility] Last Admin: 09/05/24 07:54 Dose: 1 tab Nystatin (Nystatin Oral Susp 500,000 Unit/5 Ml Oral.Susp) 100,000 unit PO DAILY PRN; Protocol PRN Reason: FLARES Nystatin (Nystatin Powder 15 Gm Bottle) 1 appl TOPICAL BID [facility]; Protocol Last Admin: 09/05/24 07:55 Dose: Not Given Omeprazole (Omeprazole 20 Mg Capsule.Dr) 20 mg PO DAILY@0630 [facility] Last Admin: 09/05/24 05:53 Dose: Not Given Oxycodone HCl (Oxycodone Hcl Immed Release 5 Mg Tablet) 5 mg PO Q4H PRN PRN Reason: Pain, Severe (Pain Scale 7-10) Last Admin: 09/05/24 07:54 Dose: 5 mg Polyethylene Glycol (Polyethylene Glycol 3350 17 Gm Powd.Pack) 17 gm PO DAILY PRN PRN Reason: Constipation Quetiapine Fumarate (Quetiapine Fumarate 50 Mg Tablet) 50 mg PO TID PRN PRN Reason: Anxiety Last Admin: 08/20/24 23:17 Dose: 50 mg Sodium Chloride (0.9 % Sodium Chloride Flush 3 Ml Syringe) 3 ml IVFLUSH QSHIFT [facility] Last Admin: 09/05/24 07:55 Dose: 3 ml Sodium Hypochlorite (Sodium Hypochlorite 0.5% 473 Ml Solution) 1 appl TOPICAL DAILY [facility] Last Admin: 09/05/24 07:55 Dose: Not Given Topiramate (Topiramate 100 Mg Tablet) 100 mg PO BID [facility] Last Admin: 09/05/24 07:55 Dose: 100 mg Trazodone HCl (Trazodone Hcl 100 Mg Tablet) 100 mg PO BEDTIME PRN PRN Reason: Insomnia Last Admin: 09/03/24 20:16 Dose: 100 mg Vancomycin HCl (Vancomycin Hcl 125 Mg Capsule) 125 mg PO Q6H [facility] Stop: 09/20/24 10:59 Last Admin: 09/05/24 08:37 Dose: 125 mg Warfarin Sodium (Warfarin Sodium 2.5 Mg Tablet) 2.5 mg PO DAILY@1800 [facility] Last Admin: 09/04/24 17:32 Dose: 2.5 mg Home Medications ?Medication ?Instructions ?Recorded ?Confirmed ?Last Taken ?Type methadone 10 mg/mL oral concentrate 100 mg PO DAILY 05/30/24 08/18/24 08/18/24 09:00 History doxepin 10 mg capsule 10 mg PO BEDTIME 07/27/24 08/18/24 07/27/24 History meloxicam 15 mg tablet 15 mg PO DAILY 07/27/24 08/18/24 07/27/24 History warfarin 2.5 mg tablet 2.5 mg PO DAILY@1800 07/27/24 08/18/24 07/27/24 History acetaminophen 325 mg tablet 325 mg PO Q6H PRN Headache/Pain 08/18/24 08/18/24 Unknown History Mild Scale (1-3) darbepoetin aldo in polysorbat 60 60 mcg subcut QWEEK 08/18/24 08/18/24 Unknown History mcg/0.3 mL in polysorbate injection syringe meropenem 500 mg intravenous 500 mg IV TUTA 08/18/24 08/18/24 Unknown History solution methadone 10 mg/mL oral 95 mg PO BEDTIME 08/18/24 08/18/24 08/17/24 21:00 History concentrate (Methadone Intensol) sodium thiosulfate 12.5 gram/50 mL 25 g IV TUTA 08/18/24 08/18/24 08/18/24 11:45 History (250 mg/mL) intravenous solution Exam Height,Weight and Vital Signs: Height 5 ft 8 in Weight 81.8 kg Last Vital Signs Temp 97.5 F 09/05/24 10:15 Pulse 76 09/05/24 10:15 Resp 18 09/05/24 10:15 BP 132/80 09/05/24 10:15 Pulse Ox 96 09/05/24 10:15 O2 Del Method Room Air 09/05/24 10:15 O2 Flow Rate 2 09/05/24 03:09 Pertinent Lab Results Pertinent Lab Results: Laboratory Tests 08/18/24 08/20/24 08/20/24 20:56 13:17 13:17 WBC 9.6 RBC 2.59 L Hgb 7.5 L Hct 23.5 L MCV 90.7 MCH 29.0 MCHC 31.9 RDW 21.3 H Plt Count 323 D MPV 10.6 Immature Gran % (Auto) 0.6 H Neut % (Auto) 77.3 H Lymph % (Auto) 7.9 L [place] % (Auto) 8.8 Eos % (Auto) 4.3 H Baso % (Auto) 1.1 Lymph # (Auto) 0.8 L [place] # (Auto) 0.8 Eos # (Auto) 0.4 Baso # (Auto) 0.1 Abs Immat Gran (auto) 0.06 H Absolute Neuts (auto) 7.4 Absolute Nucleated RBC 0.000 Nucleated RBC % (auto) 0.0 Smear Tech's Comments Hold Purple Top PT 26.9 H 26.7 H D INR 2.3 H Sodium Potassium Chloride Carbon Dioxide Anion Gap BUN Creatinine Estim Creat Clear Calc Estimated GFR Random Glucose Calcium Stl C. cayetanensis PCR Not Detected Stool Rotavirus A PCR Not Detected Stl Adenov F 40/41 PCR Not Detected Stool Astrovirus (PCR) Not Detected Stool Campylobacter PCR Not Detected Stool Cryptosporidium PCR Not Detected Stl Sh Tox Pr E STEC PCR Not Detected Stool E coli O157 PCR Not applicable Stl Enterotoxigenic E PCR Not Detected Stool EPEC (PCR) Not Detected Stool EAEC (PCR) Not Detected Stl E. histolytica PCR Not Detected Stool Giardia Lamblia PCR Not Detected Stl P. shigelloides PCR Not Detected Stool Salmonella PCR Not Detected Stool Sapovirus (PCR) Not Detected Stl Shigella/EIEC PCR Not Detected St Y.enterocolitica PCR Not Detected Stool Vibrio (PCR) Not Detected Stl Vibrio cholerae PCR Not Detected Stl Norovirus GI/GII PCR Not Detected C. difficile Tox B Gene POSITIVE A* C. difficile Toxin A&B Positive A* C. difficile Interpret SEE NOTE Hep Bs Antigen Hep Bs Antibody Hep B Core Total Ab Hep B Core IgM Ab 08/20/24 08/21/2425 13:17 14:38 09:37 WBC RBC Hgb Hct MCV MCH MCHC RDW Plt Count MPV Immature Gran % (Auto) Neut % (Auto) Lymph % (Auto) [place] % (Auto) Eos % (Auto) Baso % (Auto) Lymph # (Auto) [place] # (Auto) Eos # (Auto) Baso # (Auto) Abs Immat Gran (auto) Absolute Neuts (auto) Absolute Nucleated RBC Nucleated RBC % (auto) Smear Tech's Comments Hold Purple Top PT 26.2 H 29.0 H INR 2.3 H 2.2 H 2.5 H Sodium 139 Potassium 4.0 D Chloride 104 Carbon Dioxide 26 Anion Gap 13 BUN 24 H Creatinine 2.77 H Estim Creat Clear Calc 29.1 Estimated GFR 19 Random Glucose 87 Calcium 8.3 L Stl C. cayetanensis PCR Stool Rotavirus A PCR Stl Adenov F 40 PCR Stool Astrovirus (PCR) Stool Campylobacter PCR Stool Cryptosporidium PCR Stl Sh Tox Pr E STEC PCR Stool E coli O157 PCR Stl Enterotoxigenic E PCR Stool EPEC (PCR) Stool EAEC (PCR) Stl E. histolytica PCR Stool Giardia Lamblia PCR Stl P. shigelloides PCR Stool Salmonella PCR Stool Sapovirus (PCR) Stl Shigella/EIEC PCR St Y.enterocolitica PCR Stool Vibrio (PCR) Stl Vibrio cholerae PCR Stl Norovirus GI/GII PCR C. difficile Tox B Gene C. difficile Toxin A&B C. difficile Interpret Hep Bs Antigen Negative Hep Bs Antibody REACTIVE Hep B Core Total Ab Reactive Hep B Core IgM Ab Cancelled 08/24/24 08/25/24 08/25/24 09:17 06:42 10:24 WBC 12.9 H RBC 3.01 L Hgb 8.4 L Hct 27.0 L MCV 89.7 MCH 27.9 MCHC 31.1 RDW 20.4 H Plt Count 375 MPV 10.7 Immature Gran % (Auto) Neut % (Auto) Lymph % (Auto) [place] % (Auto) Eos % (Auto) Baso % (Auto) Lymph # (Auto) [place] # (Auto) Eos # (Auto) Baso # (Auto) Abs Immat Gran (auto) Absolute Neuts (auto) Absolute Nucleated RBC 0.030 H Nucleated RBC % (auto) 0.2 Smear Tech's Comments Hold Purple Top PT 31.4 H 32.4 H INR 2.7 H 2.8 H Sodium 139 Potassium 4.7 Chloride 101 Carbon Dioxide 23 Anion Gap 20 BUN 36 H Creatinine 3.88 H Estim Creat Clear Calc 20.7 Estimated GFR 13 Random Glucose 78 Calcium 9.1 D Stl C. cayetanensis PCR Stool Rotavirus A PCR Stl Adenov F 40 PCR Stool Astrovirus (PCR) Stool Campylobacter PCR Stool Cryptosporidium PCR Stl Sh Tox Pr E STEC PCR Stool E coli O157 PCR Stl Enterotoxigenic E PCR Stool EPEC (PCR) Stool EAEC (PCR) Stl E. histolytica PCR Stool Giardia Lamblia PCR Stl P. shigelloides PCR Stool Salmonella PCR Stool Sapovirus (PCR) Stl Shigella/EIEC PCR St Y.enterocolitica PCR Stool Vibrio (PCR) Stl Vibrio cholerae PCR Stl Norovirus GI/GII PCR C. difficile Tox B Gene C. difficile Toxin A&B C. difficile Interpret Hep Bs Antigen Hep Bs Antibody Hep B Core Total Ab Hep B Core IgM Ab 08/26/24 08/27/24 08/28/24 10:28 10:10 10:56 WBC RBC Hgb Hct MCV MCH MCHC RDW Plt Count MPV Immature Gran % (Auto) Neut % (Auto) Lymph % (Auto) [place] % (Auto) Eos % (Auto) Baso % (Auto) Lymph # (Auto) [place] # (Auto) Eos # (Auto) Baso # (Auto) Abs Immat Gran (auto) Absolute Neuts (auto) Absolute Nucleated RBC Nucleated RBC % (auto) Smear Tech's Comments Hold Purple Top SEE NOTE PT 29.6 H 30.1 H 28.5 H INR 2.5 H 2.6 H 2.4 H Sodium Potassium Chloride Carbon Dioxide Anion Gap BUN Creatinine Estim Creat Clear Calc Estimated GFR Random Glucose Calcium Stl C. cayetanensis PCR Stool Rotavirus A PCR Stl Adenov F PCR Stool Astrovirus (PCR) Stool Campylobacter PCR Stool Cryptosporidium PCR Stl Sh Tox Pr E STEC PCR Stool E coli O157 PCR Stl Enterotoxigenic E PCR Stool EPEC (PCR) Stool EAEC (PCR) Stl E. histolytica PCR Stool Giardia Lamblia PCR Stl P. shigelloides PCR Stool Salmonella PCR Stool Sapovirus (PCR) Stl Shigella/EIEC PCR St Y.enterocolitica PCR Stool Vibrio (PCR) Stl Vibrio cholerae PCR Stl Norovirus GI/GII PCR C. difficile Tox B Gene C. difficile Toxin A&B C. difficile Interpret Hep Bs Antigen Hep Bs Antibody Hep B Core Total Ab Hep B Core IgM Ab 08/29/24 08/30/24 08/31/24 07:36 13:00 10:02 WBC RBC Hgb Hct MCV MCH MCHC RDW Plt Count MPV Immature Gran % (Auto) Neut % (Auto) Lymph % (Auto) [place] % (Auto) Eos % (Auto) Baso % (Auto) Lymph # (Auto) [place] # (Auto) Eos # (Auto) Baso # (Auto) Abs Immat Gran (auto) Absolute Neuts (auto) Absolute Nucleated RBC Nucleated RBC % (auto) Smear Tech's Comments Hold Purple Top SEE NOTE SEE NOTE PT 31.4 H 33.3 H 31.0 H INR 2.7 H 2.9 H 2.7 H Sodium Potassium Chloride Carbon Dioxide Anion Gap BUN Creatinine Estim Creat Clear Calc Estimated GFR Random Glucose Calcium Stl C. cayetanensis PCR Stool Rotavirus A PCR Stl Adenov F 40/41 PCR Stool Astrovirus (PCR) Stool Campylobacter PCR Stool Cryptosporidium PCR Stl Sh Tox Pr E STEC PCR Stool E coli O157 PCR Stl Enterotoxigenic E PCR Stool EPEC (PCR) Stool EAEC (PCR) Stl E. histolytica PCR Stool Giardia Lamblia PCR Stl P. shigelloides PCR Stool Salmonella PCR Stool Sapovirus (PCR) Stl Shigella/EIEC PCR St Y.enterocolitica PCR Stool Vibrio (PCR) Stl Vibrio cholerae PCR Stl Norovirus GI/GII PCR C. difficile Tox B Gene C. difficile Toxin A&B C. difficile Interpret Hep Bs Antigen Hep Bs Antibody Hep B Core Total Ab Hep B Core IgM Ab 09/01/24 09/02/24 09/03/24 15:48 06:03 12:01 WBC 9.8 RBC 2.71 L Hgb 7.8 L Hct 24.3 L MCV 89.7 MCH 28.8 MCHC 32.1 RDW 20.3 H Plt Count 457 H MPV 10.5 Immature Gran % (Auto) Neut % (Auto) Lymph % (Auto) [place] % (Auto) Eos % (Auto) Baso % (Auto) Lymph # (Auto) [place] # (Auto) Eos # (Auto) Baso # (Auto) Abs Immat Gran (auto) Absolute Neuts (auto) Absolute Nucleated RBC 0.040 H Nucleated RBC % (auto) 0.4 H Smear Tech's Comments Hold Purple Top PT 24.9 H 25.4 H 24.5 H INR 2.1 H 2.2 H 2.1 H Sodium 139 Potassium 5.2 H Chloride 100 Carbon Dioxide 25 Anion Gap 19 BUN 43 H Creatinine 3.35 H Estim Creat Clear Calc 24.0 Estimated GFR 15 Random Glucose 114 Calcium 9.0 Stl C. cayetanensis PCR Stool Rotavirus A PCR Stl Adenov F 40/ PCR Stool Astrovirus (PCR) Stool Campylobacter PCR Stool Cryptosporidium PCR Stl Sh Tox Pr E STEC PCR Stool E coli O157 PCR Stl Enterotoxigenic E PCR Stool EPEC (PCR) Stool EAEC (PCR) Stl E. histolytica PCR Stool Giardia Lamblia PCR Stl P. shigelloides PCR Stool Salmonella PCR Stool Sapovirus (PCR) Stl Shigella/EIEC PCR St Y.enterocolitica PCR Stool Vibrio (PCR) Stl Vibrio cholerae PCR Stl Norovirus GI/GII PCR C. difficile Tox B Gene C. difficile Toxin A&B C. difficile Interpret Hep Bs Antigen Hep Bs Antibody Hep B Core Total Ab Hep B Core IgM Ab 09/04/24 09/04/24 09/05/24 05:25 05:31 06:26 WBC 10.6 RBC 3.00 L Hgb 8.4 L Hct 27.1 L MCV 90.3 MCH 28.0 MCHC 31.0 RDW 20.1 H Plt Count 448 H MPV 10.8 Immature Gran % (Auto) 1.0 H Neut % (Auto) 59.0 Lymph % (Auto) 20.3 [place] % (Auto) 14.2 H Eos % (Auto) 4.7 H Baso % (Auto) 0.8 Lymph # (Auto) 2.2 [place] # (Auto) 1.5 H Eos # (Auto) 0.5 H Baso # (Auto) 0.1 Abs Immat Gran (auto) 0.11 H Absolute Neuts (auto) 6.3 Absolute Nucleated RBC 0.040 H Nucleated RBC % (auto) 0.4 H Smear Tech's Comments VERIFIED Hold Purple Top SEE NOTE PT 24.8 H 25.1 H INR 2.1 H 2.2 H Sodium 137 Potassium 5.0 Chloride 100 Carbon Dioxide 26 Anion Gap 16 BUN 50 H Creatinine 3.75 H Estim Creat Clear Calc 21.4 Estimated GFR 13 Random Glucose 71 Calcium 8.9 Stl C. cayetanensis PCR Stool Rotavirus A PCR Stl Adenov F 40/41 PCR Stool Astrovirus (PCR) Stool Campylobacter PCR Stool Cryptosporidium PCR Stl Sh Tox Pr E STEC PCR Stool E coli O157 PCR Stl Enterotoxigenic E PCR Stool EPEC (PCR) Stool EAEC (PCR) Stl E. histolytica PCR Stool Giardia Lamblia PCR Stl P. shigelloides PCR Stool Salmonella PCR Stool Sapovirus (PCR) Stl Shigella/EIEC PCR St Y.enterocolitica PCR Stool Vibrio (PCR) Stl Vibrio cholerae PCR Stl Norovirus GI/GII PCR C. difficile Tox B Gene C. difficile Toxin A&B C. difficile Interpret Hep Bs Antigen Hep Bs Antibody Hep B Core Total Ab Hep B Core IgM Ab Narrative Narrative: Date of Service: 09/05/24 Procedure(s): ECG 12 lead EKG Test Reason : preop Blood Pressure : */* mmHG Vent. Rate : 72 BPM Atrial Rate : 72 BPM P-R Int : 220 ms QRS Dur : 98 ms QT Int : 444 ms P-R-T Axes : 60 30 96 degrees QTcB Int : 486 ms Sinus rhythm with 1st degree A-V block Nonspecific T wave abnormality Prolonged QT Abnormal ECG When compared with ECG of 29-May-2024 20:26, [place] interval has increased ST elevation now present in Anterior leads Nonspecific T wave abnormality no longer evident in Inferior leads Nonspecific T wave abnormality, improved in Anterior leads QT has lengthened Airway Mallampati Class: II TM Dist: >3cm Neck ROM: Full Loose/Missing/Broken Teeth: Yes (Edentulous) Heart: RRR + murmur Lungs: CTAB Assessment and Plan Assessment Anesthesia Assessment: Anesthesia Plan Discussed and Chart Reviewed Final Anesthetic Review Family History of Problems with Anesthesia: No History of Problems with Anesthesia: No NPO: Yes ASA Class: IV Final Preanesthetic Review: No Changes in Pt Med Stat, Meds/Allgs Chart Reviewed, Consent Obtained/Reviewed and Anes Risks/Benef Reviewed Patient Risk: High Procedure Risk: Low Assessment/Block/Sedation in SS: Assess/Block/Sedation-SS Anesthetic Plan Anesthetic Plan: GA and TIVA Disposition: Standard PACU and Inp. Admit - Standard Bed
--- NOTE | 2024-09-05 10:29 | P.PNIM_ITS ---
Subjective Subjective Date of Service: 09/05/24 Interval History: seen and evaluated this morning reports pain at wounds sites , plan for debridement today no fever or chills no other events Review of Systems Review of Systems: Yes all other systems are reviewed and are negative Physical Exam 2 Vital Signs: Vital Signs: Last Vital Signs Temp 97.5 F 09/05/24 10:15 Pulse 76 09/05/24 10:15 Resp 18 09/05/24 10:15 BP 132/80 09/05/24 10:15 Pulse Ox 96 09/05/24 10:15 O2 Del Method Room Air 09/05/24 10:15 O2 Flow Rate 2 09/05/24 03:09 BMI result Body Mass Index 27.4 Const: Other: Constitutional : Awake, interactive, frail looking, not in distress Neck : Normal inspection, Supple Cardiovascular : RRR, no JVP, no lower extremity edema Respiratory : good bilateral air entry, no crackles, wheezes or rhonchi, on O2 supplement Gastrointestinal: soft, lax, Normal bowel sounds, Non tender Skin : Warm, Dry, bilateral lower extremities eschar , bilateral flank wounds covered with dressing Neurological : Alert & oriented x3, No focal deficit Objective Data Active Medications Acetaminophen (Acetaminophen 325 Mg Tablet) 650 mg PO Q6H PRN PRN Reason: Pain, Mild 1-3,fever,headache Last Admin: 09/04/24 20:13 Dose: 650 mg Documented By: LILLY Albuterol Sulfate (Albuterol Sulfate 90 Mcg 8 Gm Inhaler) 2 puff INHALE RQ4H PRN PRN Reason: Wheezing Amlodipine Besylate (Amlodipine Besylate 10 Mg Tablet) 10 mg PO DAILY [facility]; Protocol Last Admin: 09/05/24 07:55 Dose: 10 mg Documented By: NAMAN Bupropion HCl (Bupropion Hcl Xl 300 Mg Tab.Er.24h) 300 mg PO DAILY [facility] Last Admin: 09/05/24 07:55 Dose: 300 mg Documented By: NAMAN Clonidine HCl (Clonidine Hcl 0.2 Mg Tablet) 0.2 mg PO BEDTIME [facility]; Protocol Last Admin: 09/04/24 20:14 Dose: 0.2 mg Documented By: LILLY Cyanocobalamin (Cyanocobalamin (Vitamin B-12) 100 Mcg Tablet) 100 mcg PO DAILY [facility] Last Admin: 09/05/24 07:55 Dose: 100 mcg Documented By: NAMAN Doxepin HCl (Doxepin Hcl 10 Mg Capsule) 10 mg PO BEDTIME [facility] Last Admin: 09/04/24 20:14 Dose: 10 mg Documented By: LILLY Epoetin Devin-epbx (Epoetin Devin-Epbx 10,000 Unit/Ml Vial) 8,000 unit IVPUSH TuThSa@1800 [facility] Last Admin: 09/03/24 18:57 Dose: 8,000 unit Documented By: POONAM Gabapentin (Gabapentin 600 Mg Tablet) 600 mg PO BID [facility] Last Admin: 09/05/24 07:55 Dose: 600 mg Documented By: NAMAN Heparin Sodium (Porcine) (Heparin Sodium,Porcine 5,000 Unit/Ml Vial) 5,000 unit INTRACATH TUTHSA@1645 [facility] Last Admin: 09/03/24 13:56 Dose: Not Given Documented By: PRINCESS Non-Admin Reason: dialysis order Hydroxyzine HCl (Hydroxyzine Hcl 50 Mg Tablet) 50 mg PO TID PRN PRN Reason: Anxiety Last Admin: 09/04/24 20:14 Dose: 50 mg Documented By: LILLY Sodium Thiosulfate 12.5 gm/ (Sodium Chloride) 200 mls @ 400 mls/hr IV Q30M [facility] Stop: 08/18/24 23:14 Sodium Chloride (Ns) 1,000 mls @ 50 mls/hr IVCONT .Q20H [facility] Magnesium Hydroxide (Milk Of Magnesia 30 Ml Oral.Susp) 30 ml PO DAILY PRN PRN Reason: Constipation Melatonin (Melatonin 3 Mg Tablet) 6 mg PO BEDTIME PRN PRN Reason: Insomnia Last Admin: 09/04/24 20:14 Dose: 6 mg Documented By: LILLY Meropenem (Meropenem 500 Mg Vial) 500 mg IV TuThSa@1800 [facility] Stop: 09/30/24 17:59 Last Admin: 09/03/24 18:07 Dose: 500 mg Documented By: POONAM Methadone HCl (Methadone Hcl 20 Mg/2 Ml Oral.Conc) 100 mg PO DAILY [facility] Last Admin: 09/05/24 07:55 Dose: 100 mg Documented By: NAMAN Co-signed By: HO.VENLA Methadone HCl (Methadone Hcl 20 Mg/2 Ml Oral.Conc) 95 mg PO BEDTIME [facility] Last Admin: 09/04/24 20:11 Dose: 95 mg Documented By: LILLY Co-signed By: ONELIA Multivitamins/Vitamin C (Multivitamin Tablet) 1 tab PO DAILY [facility] Last Admin: 09/05/24 07:54 Dose: 1 tab Documented By: NAMAN Nystatin (Nystatin Oral Susp 500,000 Unit/5 Ml Oral.Susp) 100,000 unit PO DAILY PRN; Protocol PRN Reason: FLARES Nystatin (Nystatin Powder 15 Gm Bottle) 1 appl TOPICAL BID [facility]; Protocol Last Admin: 09/05/24 07:55 Dose: Not Given Documented By: NAMAN Non-Admin Reason: Patient Refused Omeprazole (Omeprazole 20 Mg Capsule.Dr) 20 mg PO DAILY@0630 [facility] Last Admin: 09/05/24 05:53 Dose: Not Given Documented By: LILLY Non-Admin Reason: NPO Oxycodone HCl (Oxycodone Hcl Immed Release 5 Mg Tablet) 5 mg PO Q4H PRN PRN Reason: Pain, Severe (Pain Scale 7-10) Last Admin: 09/05/24 07:54 Dose: 5 mg Documented By: NAMAN Polyethylene Glycol (Polyethylene Glycol 3350 17 Gm Powd.Pack) 17 gm PO DAILY PRN PRN Reason: Constipation Quetiapine Fumarate (Quetiapine Fumarate 50 Mg Tablet) 50 mg PO TID PRN PRN Reason: Anxiety Last Admin: 08/20/24 23:17 Dose: 50 mg Documented By: GEOVANNA Sodium Chloride (0.9 % Sodium Chloride Flush 3 Ml Syringe) 3 ml IVFLUSH [facility] Last Admin: 09/05/24 07:55 Dose: 3 ml Documented By: NAMAN Sodium Hypochlorite (Sodium Hypochlorite 0.5% 473 Ml Solution) 1 appl TOPICAL DAILY [facility] Last Admin: 09/05/24 07:55 Dose: Not Given Documented By: NAMAN Non-Admin Reason: Patient Refused Topiramate (Topiramate 100 Mg Tablet) 100 mg PO BID [facility] Last Admin: 09/05/24 07:55 Dose: 100 mg Documented By: NAMAN Trazodone HCl (Trazodone Hcl 100 Mg Tablet) 100 mg PO BEDTIME PRN PRN Reason: Insomnia Last Admin: 09/03/24 20:16 Dose: 100 mg Documented By: KRISTEN Vancomycin HCl (Vancomycin Hcl 125 Mg Capsule) 125 mg PO Q6H [facility] Stop: 09/20/24 10:59 Last Admin: 09/05/24 08:37 Dose: 125 mg Documented By: NAMAN Warfarin Sodium (Warfarin Sodium 2.5 Mg Tablet) 2.5 mg PO DAILY@1800 [facility] Last Admin: 09/04/24 17:32 Dose: 2.5 mg Documented By: NAMAN Labs 09/05/24 06:26 09/05/24 06:26 Labs: Laboratory Results - last 24 hr 09/05/24 06:26 MCV 90.3 MCH 28.0 MCHC 31.0 RDW 20.1 H Plt Count 448 H MPV 10.8 Immature Gran % (Auto) 1.0 H Neut % (Auto) 59.0 Lymph % (Auto) 20.3 [place] % (Auto) 14.2 H Eos % (Auto) 4.7 H Baso % (Auto) 0.8 Lymph # (Auto) 2.2 [place] # (Auto) 1.5 H Eos # (Auto) 0.5 H Baso # (Auto) 0.1 Abs Immat Gran (auto) 0.11 H Absolute Neuts (auto) 6.3 Absolute Nucleated RBC 0.040 H Nucleated RBC % (auto) 0.4 H Smear Tech's Comments VERIFIED PT 25.1 H INR 2.2 H Anion Gap 16 Estim Creat Clear Calc 21.4 Estimated GFR 13 Random Glucose 71 Calcium 8.9 Assessment and Plan (1) Clostridium difficile infection: Status: Acute (2) Calciphylaxis: Status: Acute (3) 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 Pt was transferred to [facility] due to concern for right atrial mass associated dialysis catheter tip, and pt is now being transferred back to [facility] for continued treatment and STR placement. Acute C diff infection Stool studies positive for C diff on 08/18 no diarrhea overnight vancomycin 125 mg p.o. q.6 ID following; continue po Vancomycin through the course of IV Abx and 2 days after (september 20, 2024). Flank wounds Wound care following Dr Pickens scheduled patient for flank wounds debridement today new LUE swelling negative doppler, resolving Infective endocarditis with ESBL Klebsiella Bacteremia complicated with with Right atrial mass TTE at [facility] showed severely dilated left atrium and left ventricle, LVEF 59%, adherent mass with mobile components of left atrium Culture positive for Klebsiella pneumoniae that has cephalosporin resistant gene positive and Pseudomonas Pt started on meropenem 500 mg IV, continue for total of 6 weeks to finish by September 18, 2024 Follow up outpatient with Cardiology at [facility] after discharge for repeat TTE and possible outpatient cardiac MRI Unable to discharge to home as HD center does not cover Meropenem Dilated CBD CT of abdomen and pelvis on 08/07 [facility] found distended gallbladder and distal CBD dilation of 1.1 cm and possible filling deficit and distal CBD concerning for choledocholithiasis GI recommendation was for MRCP at [facility], however pt refused Pt currently asymptomatic without RUQ abdominal pain, no nausea or vomiting; has been eating and drinking without issue Currently no indication for MRCP, Consider GI consult and repeat imaging if pt develops symptoms Bilateral lower extremity wounds 2/2 Calciphylaxis Continue sodium thiosulfate 25 g IV 3 times weekly after dialysis Wound care (see notes) Analgesics for pain management Pt has so far declined debridement General surgery consult, require extensive debridement with the assistance of Plastic surgery for wound coverage in his much more extensive that can be handled at our facility. Patient will be best treated at a tertiary care center with multimodality treatment including plastic surgery and inpatient wound care. ESRD On HD T//Thu Anemia of chronic disease S/p 3 units PRBCs at [facility] Retacrit 31231 units x3 weekly post dialysis Follow CBC, transfuse as necessary HTN Continue amlodipine and clonidine Antiphospholipid syndrome Continue warfarin Daily INR with target range 2-3 GERD Continue PPI Polysubstance use disorder Continue methadone 100 mg daily and 95 mg at bedtime Mood disorder Continue hydroxyzine, trazodone, topiramate, and bupropion Full Code DVT Prophylaxis: On Warfarin reason for continued hospitalization: awaiting bed, needs iv abx and surgical debridement Quality Stroke Does the patient have a stroke diagnosis?: No VTE Prior VTE?: No VTE Risk Level:: Medical - moderate - high VTE Device Contraindication: Treatment Not Indicated VTE Drug Contraindication: N/A - Med Ordered
--- NOTE | 2024-09-05 11:41 | MHC.SHP ---
Pre-Procedural Eval Section A - 24 Hr Update-Section A only Date of Service: 09/05/24 The patient is an INPATIENT: Yes Changes since office visit: Yes Patient answered all questions; No Cold of Flu in the past 2 weeks, No New Medical Problems and No Changes in Medication The patient has been examined within 24 hours of the surgical procedure. The History & Physical has been completed within 30 days and I have reviewed it.: Yes Section B - Complete if H&P > 30 days Chief Complaint: Calciphylaxis, Bactermina Allergies: Allergies Allergy/AdvReac Type Severity Reaction Status Date / Time Iodinated Contrast Media Allergy Rash Verified 09/05/24 10:27 [Contrast Dye] Plan Diagnosis/Plan: Unchanged I have reviewed the history and physical and performed a pertinent physical examination on my patient. No changes have occurred unless specified. Time Spent With Patient Time: Total time managing care of this patient today ____ minutes.
--- NOTE | 2024-09-05 11:41 | PM.PNNEP ---
Subjective Subjective Date of Service: 09/05/24 Interval history: Due HD tomorrow. All recent data reviewed; D/W Hospitalist Physical Exam Vital Signs: Vital Signs: Last Vital Signs Temp 97.5 F 09/05/24 10:15 Pulse 76 09/05/24 10:15 Resp 18 09/05/24 10:15 BP 132/80 09/05/24 10:15 Pulse Ox 96 09/05/24 10:15 O2 Del Method Room Air 09/05/24 10:15 O2 Flow Rate 2 09/05/24 03:09 BMI result Body Mass Index 27.4 Const: General: no acute distress Orientation/consciousness: patient oriented x3 Eyes: EOM: EOMs intact bilaterally Resp: Auscultation: diminished lung sounds Cardio: Rate: regular rate GI: Palpation (GI): Soft to palpation Neuro: General: patient oriented x3 Objective Data Labs 09/05/24 06:26 09/05/24 06:26 Labs: Laboratory Results - last 24 hr 09/05/24 06:26 WBC 10.6 RBC 3.00 L Hgb 8.4 L Hct 27.1 L MCV 90.3 MCH 28.0 MCHC 31.0 RDW 20.1 H Plt Count 448 H MPV 10.8 Immature Gran % (Auto) 1.0 H Neut % (Auto) 59.0 Lymph % (Auto) 20.3 [place] % (Auto) 14.2 H Eos % (Auto) 4.7 H Baso % (Auto) 0.8 Lymph # (Auto) 2.2 [place] # (Auto) 1.5 H Eos # (Auto) 0.5 H Baso # (Auto) 0.1 Abs Immat Gran (auto) 0.11 H Absolute Neuts (auto) 6.3 Absolute Nucleated RBC 0.040 H Nucleated RBC % (auto) 0.4 H Smear Tech's Comments VERIFIED PT 25.1 H INR 2.2 H Sodium 137 Potassium 5.0 Chloride 100 Carbon Dioxide 26 Anion Gap 16 BUN 50 H Creatinine 3.75 H Estim Creat Clear Calc 21.4 Estimated GFR 13 Random Glucose 71 Calcium 8.9 Microbiology Microbiology Results: Microbiology 08/18/24 19:34 Blood - Venous Blood Culture - Final No growth after 5 days. 08/18/24 19:34 Blood - Venous Blood Culture - Final No growth after 5 days. Procedures Date of Service Date of Service: 09/05/24 Assessment & Plan Assessment and plan (1) End stage renal disease on dialysis: Status: Acute Plan Usually gets HD on TTS -due tomorrow Has a functioning HD catheter Na thiosulphate TTS as ordered- checked with pharmacist ( had been getting TTS-last dose was Sat) No Vitamin D , calcitriol or ca based binders Phos binders with meals Procrit 11353 U 3 times a week TTS Wound debridement; Shall follow along Progress Note: Quality Stroke Does the patient have a stroke diagnosis?: No
--- NOTE | 2024-09-05 11:41 | MHC.CM.PN ---
Per MD rounds no discharge today. Patient is scheduled for Debridement in the O.R. today. Referrals have been updated. DP STR IV ABX VIA BLS.
--- NOTE | 2024-09-05 12:48 | P.OP_ITS ---
Operative Note Operative Note Date of Service: 09/05/24 Narrative: Preoperative diagnosis: Bilateral buttock ulcers Postoperative diagnosis:same Procedure:Debridement of bilateral buttock ulcers Surgeon: Jose Pickens MD Length Control Tester: Venus Watts PA-C Anesthesia: general LMA Indications for procedure: 43 year old female with multiple medical problems found to have bilateral buttock ulcers right large than left. She presents today for wound debridement. Operative findings: Right buttock ulcers involving skin and subcutaneous tissue measuring 30 cm x 6 cm and 2 cm deep. Left buttock ulcers measuring total of 8 x 4 cms of skin and subcutaneous tissue. Specimen:bilateral buttock necrotic ulces Estimated blood loss:10 mls Complications:none Procedure details: Patient was brought to the OR and placed in a supine position. After the administration of anesthesia, the patient was placed in a partial left lateral decubitus position. Skin was prepped with betadine and draped in a sterile fashion. A surgical time out was called and the consent was confirmed. Patient is on continuous antibiotics. The 15 blade was used to excise the long area of necrotic tissue along the right buttock. A combination of skin and subcutaneous tissue was excised measuring 30 x 6 x 2 cm. Hemostasis was achieved using electrocautery. Sterile dressing including 4x4 soaked betadine dressing to dry dressing with fluffs, ABD and paper tape. Patient was then rotated to a right lateral decubitus and reprepped and draped in a sterile fashion. In a similar manner, the left buttock wounds were debrided with the 15 blade and currette from and a total of 8 x 4 cms debrided of skin and subcutaneous tissue. Hemostasis was achied with electrocautery. Betadine wet to dry dressings were then applied followed by fuffs, ABD, and paper tape. The patient tolerated the procedure well. The sponge, instrument, and needle counts were correct. She was transferred to the PACU in stable condition.
--- NOTE | 2024-09-05 13:59 | MHC.CLN ---
F/U WAS NPO FOR WOUND DEBRIDEMENT TODAY. NOW WITH DIET=REGULAR AND ENSURE TID (1050 KCALS, 60 G PROTEIN). SKIN WITH STAGE II PRESSURE INJURIES TO LEFT AND RIGHT ISCHIUM. SUPPLEMENT TO PROMOTE WOUND HEALING. MOST RECENT PO INTAKE 50-75%. MONITOR PO INTAKE AND ENCOURAGE SUPPLEMENTS.
[2024-09-05] MEDS: HYDROmorphone HCl 1 MG/ML SYRINGE IVPUSH ×2 (17:13→21:48)
[2024-09-05] MEDS: Warfarin Sodium 2.5 MG TABLET PO (17:37)
[2024-09-05] MEDS: ondansetron HCL 4 MG/2 ML VIAL IVPUSH (17:39)
[2024-09-05] MEDS: hydrOXYzine HCL 50 MG TABLET PO (20:41)
[2024-09-05] MEDS: Doxepin HCl 10 MG CAPSULE PO (20:42)
[2024-09-05] MEDS: traZODone HCL 100 MG TABLET PO (20:42)
[2024-09-05] MEDS: cloNIDine HCL 0.2 MG TABLET PO (20:42)
[2024-09-05] MEDS: QUEtiapine Fumarate 50 MG TABLET PO (20:42)
[2024-09-05] MEDS: methADONE HCl 20 MG/2 ML ORAL.CONC 95 MG PO (20:43)
[2024-09-06 04:00] VITALS: BP 138/89; PULSE 74; RESP 17; TEMP 36.5; O2SAT 95
[2024-09-06] MEDS: vancomycin HCL 125 MG CAPSULE PO ×4 (05:32→21:54)
[2024-09-06] MEDS: Omeprazole 20 MG CAPSULE.DR PO (05:32)
[2024-09-06] MEDS: HYDROmorphone HCl 1 MG/ML SYRINGE IVPUSH ×4 (07:07→20:04)
[2024-09-06 07:11] VITALS: BP 152/91; PULSE 72; RESP 16; TEMP 37.1; O2SAT 92
--- NOTE | 2024-09-06 07:28 | HO.POSTANES ---
Post Anesthesia Evaluation Post Anesthesia Evaluation Date of Service: 09/06/24 Vital Signs: Vital Signs Temp Pulse Resp BP Pulse Ox O2 Del Method 09/06/24 07:11 98.7 F 72 16 152/91 H 92 Room Air 09/06/24 04:00 97.7 F 74 17 138/89 95 Room Air 09/05/24 20:42 134/83 Anesthesia: General LMA Mental Status: Awake Pain Control: Satisfactory Nausea/Vomiting: None Hydration: Adequate Anesthesia-Related Issues: No Anes. Related Issues
[2024-09-06] MEDS: oxyCODONE HCl Immed Release 5 MG TABLET PO (08:52)
[2024-09-06 11:43] VITALS: RESP 18
[2024-09-06] MEDS: buPROPion HCl XL 300 MG TAB.ER.24H PO (12:08)
[2024-09-06] MEDS: Topiramate 100 MG TABLET PO ×2 (12:08→20:04)
[2024-09-06] MEDS: Gabapentin 600 MG TABLET PO ×2 (12:08→20:04)
[2024-09-06] MEDS: Cyanocobalamin (Vitamin B-12) 100 MCG TABLET PO (12:09)
[2024-09-06] MEDS: Multivitamin TABLET 1 TAB PO (12:09)
[2024-09-06] MEDS: methADONE HCl 20 MG/2 ML ORAL.CONC 100 MG PO (12:09)
[2024-09-06] MEDS: amLODIPine Besylate 10 MG TABLET PO (12:10)
[2024-09-06] MEDS: SODIUM CHLORIDE 0.9% IV ×2 (12:10→13:06)
[2024-09-06] MEDS: SODIUM THIOSULFATE IV ×2 (12:10→13:06)
--- NOTE | 2024-09-06 12:16 | PM.PNGS ---
Subjective Subjective Date of Service: 09/06/24 Interval history: Just finished dialysis. Received 1mg IV dilaudid 20 min ago. States she is still in significant in pain and does not want her dressing changed now. Physical Exam Vital Signs: Vital Signs: Last Vital Signs Temp 98.7 F 09/06/24 07:11 Pulse 72 09/06/24 07:11 Resp 18 09/06/24 11:43 BP 152/91 H 09/06/24 07:11 Pulse Ox 92 09/06/24 07:11 O2 Del Method Room Air 09/06/24 07:11 O2 Flow Rate 6 09/05/24 12:46 BMI result Body Mass Index 27.4 Const: General: no acute distress, alert and anxious Resp: Effort & Inspection: normal respiratory effort Neuro: General: gait normal Objective Data Active Medications Acetaminophen (Acetaminophen 325 Mg Tablet) 650 mg PO Q6H PRN PRN Reason: Pain, Mild 1-3,fever,headache Last Admin: 09/04/24 20:13 Dose: 650 mg Documented By: LILLY Albuterol Sulfate (Albuterol Sulfate 90 Mcg 8 Gm Inhaler) 2 puff INHALE RQ4H PRN PRN Reason: Wheezing Amlodipine Besylate (Amlodipine Besylate 10 Mg Tablet) 10 mg PO DAILY [facility]; Protocol Last Admin: 09/05/24 07:55 Dose: 10 mg Documented By: NAMAN Bupropion HCl (Bupropion Hcl Xl 300 Mg Tab.Er.24h) 300 mg PO DAILY [facility] Last Admin: 09/05/24 07:55 Dose: 300 mg Documented By: NAMAN Clonidine HCl (Clonidine Hcl 0.2 Mg Tablet) 0.2 mg PO BEDTIME [facility]; Protocol Last Admin: 09/05/24 20:42 Dose: 0.2 mg Documented By: NIKKI Cyanocobalamin (Cyanocobalamin (Vitamin B-12) 100 Mcg Tablet) 100 mcg PO DAILY [facility] Last Admin: 09/05/24 07:55 Dose: 100 mcg Documented By: NAMAN Doxepin HCl (Doxepin Hcl 10 Mg Capsule) 10 mg PO BEDTIME [facility] Last Admin: 09/05/24 20:42 Dose: 10 mg Documented By: NIKKI Epoetin Devin-epbx (Epoetin Devin-Epbx 10,000 Unit/Ml Vial) 8,000 unit IVPUSH TuThSa@1800 [facility] Last Admin: 09/03/24 18:57 Dose: 8,000 unit Documented By: POONAM Gabapentin (Gabapentin 600 Mg Tablet) 600 mg PO BID [facility] Last Admin: 09/05/24 20:42 Dose: 600 mg Documented By: NIKKI Heparin Sodium (Porcine) (Heparin Sodium,Porcine 5,000 Unit/Ml Vial) 5,000 unit INTRACATH TUTA@1645 [facility] Last Admin: 09/03/24 13:56 Dose: Not Given Documented By: PRINCESS Non-Admin Reason: dialysis order Hydromorphone HCl (Hydromorphone Hcl 1 Mg/Ml Syringe) 1 mg IVPUSH Q4H PRN; Protocol PRN Reason: Pain, Severe (Pain Scale 7-10) Last Admin: 09/06/24 11:43 Dose: 1 mg Documented By: SESAR Hydroxyzine HCl (Hydroxyzine Hcl 50 Mg Tablet) 50 mg PO TID PRN PRN Reason: Anxiety Last Admin: 09/05/24 20:41 Dose: 50 mg Documented By: NIKKI Sodium Thiosulfate 12.5 gm/ (Sodium Chloride) 200 mls @ 400 mls/hr IV Q30M [facility] Stop: 08/18/24 23:14 Sodium Thiosulfate 12.5 gm/ (Sodium Chloride) 200 mls @ 400 mls/hr IV Q30M [facility] Stop: 09/06/24 12:59 Acetaminophen (Ofirmev) 1,000 mg in 100 mls @ 400 mls/hr IV ONCE ONE Stop: 09/06/24 12:29 Magnesium Hydroxide (Milk Of Magnesia 30 Ml Oral.Susp) 30 ml PO DAILY PRN PRN Reason: Constipation Melatonin (Melatonin 3 Mg Tablet) 6 mg PO BEDTIME PRN PRN Reason: Insomnia Last Admin: 09/04/24 20:14 Dose: 6 mg Documented By: LILLY Meropenem (Meropenem 500 Mg Vial) 500 mg IV TuThSa@1800 [facility] Stop: 09/30/24 17:59 Last Admin: 09/03/24 18:07 Dose: 500 mg Documented By: POONAM Methadone HCl (Methadone Hcl 20 Mg/2 Ml Oral.Conc) 100 mg PO DAILY [facility] Last Admin: 09/05/24 07:55 Dose: 100 mg Documented By: NAMAN Co-signed By: ESAU Methadone HCl (Methadone Hcl 20 Mg/2 Ml Oral.Conc) 95 mg PO BEDTIME [facility] Last Admin: 09/05/24 20:43 Dose: 95 mg Documented By: NIKKI Co-signed By: ELI Multivitamins/Vitamin C (Multivitamin Tablet) 1 tab PO DAILY [facility] Last Admin: 09/05/24 07:54 Dose: 1 tab Documented By: NAMAN Naloxone HCl (Naloxone Hcl 0.4 Mg/Ml Vial) 0.04 mg IVPUSH Q5M PRN PRN Reason: Excessive sedation or RR < 8 Nystatin (Nystatin Oral Susp 500,000 Unit/5 Ml Oral.Susp) 100,000 unit PO DAILY PRN; Protocol PRN Reason: FLARES Nystatin (Nystatin Powder 15 Gm Bottle) 1 appl TOPICAL BID [facility]; Protocol Last Admin: 09/05/24 20:54 Dose: Not Given Documented By: NIKKI Non-Admin Reason: Patient Refused Omeprazole (Omeprazole 20 Mg Capsule.Dr) 20 mg PO DAILY@0630 [facility] Last Admin: 09/06/24 05:32 Dose: 20 mg Documented By: NIKKI Ondansetron HCl (Ondansetron Hcl 4 Mg/2 Ml Vial) 4 mg IVPUSH Q6H PRN PRN Reason: Nausea and Vomiting Last Admin: 09/05/24 17:39 Dose: 4 mg Documented By: NAMAN Oxycodone HCl (Oxycodone Hcl Immed Release 5 Mg Tablet) 5 mg PO Q4H PRN PRN Reason: Pain, Moderate(Pain Scale 4-6) Last Admin: 09/06/24 08:52 Dose: 5 mg Documented By: FOSTEKRosa Polyethylene Glycol (Polyethylene Glycol 3350 17 Gm Powd.Pack) 17 gm PO DAILY PRN PRN Reason: Constipation Quetiapine Fumarate (Quetiapine Fumarate 50 Mg Tablet) 50 mg PO TID PRN PRN Reason: Anxiety Last Admin: 09/05/24 20:42 Dose: 50 mg Documented By: NIKKI Sodium Chloride (0.9 % Sodium Chloride Flush 3 Ml Syringe) 3 ml IVFLUSH QSHIFT [facility] Last Admin: 09/06/24 11:55 Dose: Not Given Documented By: SESAR Non-Admin Reason: Off unit: Dialysis Sodium Hypochlorite (Sodium Hypochlorite 0.5% 473 Ml Solution) 1 appl TOPICAL DAILY [facility] Last Admin: 09/05/24 07:55 Dose: Not Given Documented By: NAMAN Non-Admin Reason: Patient Refused Topiramate (Topiramate 100 Mg Tablet) 100 mg PO BID [facility] Last Admin: 09/05/24 20:42 Dose: 100 mg Documented By: NIKKI Trazodone HCl (Trazodone Hcl 100 Mg Tablet) 100 mg PO BEDTIME PRN PRN Reason: Insomnia Last Admin: 09/05/24 20:42 Dose: 100 mg Documented By: NIKKI Vancomycin HCl (Vancomycin Hcl 125 Mg Capsule) 125 mg PO Q6H [facility] Stop: 09/20/24 10:59 Last Admin: 09/06/24 05:32 Dose: 125 mg Documented By: NIKKI Warfarin Sodium (Warfarin Sodium 2.5 Mg Tablet) 2.5 mg PO DAILY@1800 [facility] Last Admin: 09/05/24 17:37 Dose: 2.5 mg Documented By: NAMAN Labs 09/05/24 06:26 09/05/24 06:26 Procedures Date of Service Date of Service: 09/06/24 Progress Note: A&P Assessment and plan (1) Decubitus skin ulcer: Status: Acute Plan POD #1 s/p Debridement of bilateral buttock ulcers. Currently refusing dressing change due to pain despite just receiving IV analgesics. Will give IV ofirmev and reassess for possible dressing change later. Discussed with RN. Time Spent With Patient Time: Total time managing care of this patient today ____ minutes. Quality Stroke Does the patient have a stroke diagnosis?: No VTE Prior VTE?: No VTE Risk Level:: Medical - moderate - high VTE Device Contraindication: Treatment Not Indicated VTE Drug Contraindication: N/A - Med Ordered
[2024-09-06] MEDS: Acetaminophen 1,000 MG/100 ML PIGGYBACK 400 MG IV (13:06)
--- NOTE | 2024-09-06 14:45 | PM.EVENT ---
Event Note Date of Service: 09/06/24 Event Note: Patient agreed to dressing change. right lateral hip/ischial region- no significant necrotic tissue/eschar, some slough, about 25% granulation tissue, overall drainage improved. Wet to dry saline soaked fluffs followed by dry fluffs, abd dressing and tape. Following R sided dressing change, patient refused to have left side change. Time Spent With Patient Time: Total time managing care of this patient today ____ minutes.
[2024-09-06 14:54] VITALS: BP 153/82; PULSE 85; RESP 20; TEMP 37.1; O2SAT 95
--- NOTE | 2024-09-06 14:55 | P.PNIM_ITS ---
Subjective Subjective Date of Service: 09/06/24 Interval History: seen and evaluated this morning reports pain at wounds sites , post debridement seen in dialysis no other events Review of Systems Review of Systems: Yes all other systems are reviewed and are negative Physical Exam 2 Vital Signs: Vital Signs: Last Vital Signs Temp 98.7 F 09/06/24 07:11 Pulse 72 09/06/24 07:11 Resp 18 09/06/24 11:43 BP 152/91 H 09/06/24 07:11 Pulse Ox 92 09/06/24 07:11 O2 Del Method Room Air 09/06/24 07:11 O2 Flow Rate 6 09/05/24 12:46 BMI result Body Mass Index 27.4 Const: Other: Constitutional : Awake, interactive, frail looking, not in distress Neck : Normal inspection, Supple Cardiovascular : RRR, no JVP, no lower extremity edema Respiratory : good bilateral air entry, no crackles, wheezes or rhonchi, on O2 supplement Gastrointestinal: soft, lax, Normal bowel sounds, Non tender Skin : Warm, Dry, bilateral lower extremities eschar , bilateral flank wounds covered with dressing Neurological : Alert & oriented x3, No focal deficit Objective Data Active Medications Acetaminophen (Acetaminophen 325 Mg Tablet) 650 mg PO Q6H PRN PRN Reason: Pain, Mild 1-3,fever,headache Last Admin: 09/04/24 20:13 Dose: 650 mg Documented By: LILLY Albuterol Sulfate (Albuterol Sulfate 90 Mcg 8 Gm Inhaler) 2 puff INHALE RQ4H PRN PRN Reason: Wheezing Amlodipine Besylate (Amlodipine Besylate 10 Mg Tablet) 10 mg PO DAILY [facility]; Protocol Last Admin: 09/06/24 12:10 Dose: 10 mg Documented By: SESAR Bupropion HCl (Bupropion Hcl Xl 300 Mg Tab.Er.24h) 300 mg PO DAILY [facility] Last Admin: 09/06/24 12:08 Dose: 300 mg Documented By: SESAR Clonidine HCl (Clonidine Hcl 0.2 Mg Tablet) 0.2 mg PO BEDTIME [facility]; Protocol Last Admin: 09/05/24 20:42 Dose: 0.2 mg Documented By: CASTJASWINDER Cyanocobalamin (Cyanocobalamin (Vitamin B-12) 100 Mcg Tablet) 100 mcg PO DAILY [facility] Last Admin: 09/06/24 12:09 Dose: 100 mcg Documented By: SESAR Doxepin HCl (Doxepin Hcl 10 Mg Capsule) 10 mg PO BEDTIME [facility] Last Admin: 09/05/24 20:42 Dose: 10 mg Documented By: NIKKI Epoetin Devin-epbx (Epoetin Devin-Epbx 10,000 Unit/Ml Vial) 8,000 unit IVPUSH TuThSa@1800 [facility] Last Admin: 09/03/24 18:57 Dose: 8,000 unit Documented By: POONAM Gabapentin (Gabapentin 600 Mg Tablet) 600 mg PO BID [facility] Last Admin: 09/06/24 12:08 Dose: 600 mg Documented By: SESAR Heparin Sodium (Porcine) (Heparin Sodium,Porcine 5,000 Unit/Ml Vial) 5,000 unit INTRACATH TUTHSA@1645 [facility] Last Admin: 09/03/24 13:56 Dose: Not Given Documented By: PRINCESS Non-Admin Reason: dialysis order Hydromorphone HCl (Hydromorphone Hcl 1 Mg/Ml Syringe) 1 mg IVPUSH Q4H PRN; Protocol PRN Reason: Pain, Severe (Pain Scale 7-10) Last Admin: 09/06/24 11:43 Dose: 1 mg Documented By: SESAR Hydroxyzine HCl (Hydroxyzine Hcl 50 Mg Tablet) 50 mg PO TID PRN PRN Reason: Anxiety Last Admin: 09/05/24 20:41 Dose: 50 mg Documented By: NIKKI Sodium Thiosulfate 12.5 gm/ (Sodium Chloride) 200 mls @ 400 mls/hr IV Q30M [facility] Stop: 08/18/24 23:14 Magnesium Hydroxide (Milk Of Magnesia 30 Ml Oral.Susp) 30 ml PO DAILY PRN PRN Reason: Constipation Melatonin (Melatonin 3 Mg Tablet) 6 mg PO BEDTIME PRN PRN Reason: Insomnia Last Admin: 09/04/24 20:14 Dose: 6 mg Documented By: LILLY Meropenem (Meropenem 500 Mg Vial) 500 mg IV TuThSa@1800 [facility] Stop: 09/30/24 17:59 Last Admin: 09/03/24 18:07 Dose: 500 mg Documented By: POONAM Methadone HCl (Methadone Hcl 20 Mg/2 Ml Oral.Conc) 100 mg PO DAILY [facility] Last Admin: 09/06/24 12:09 Dose: 100 mg Documented By: SESAR Co-signed By: PORSCHE Methadone HCl (Methadone Hcl 20 Mg/2 Ml Oral.Conc) 95 mg PO BEDTIME [facility] Last Admin: 09/05/24 20:43 Dose: 95 mg Documented By: NIKKI Co-signed By: ELI Multivitamins/Vitamin C (Multivitamin Tablet) 1 tab PO DAILY [facility] Last Admin: 09/06/24 12:09 Dose: 1 tab Documented By: SESAR Naloxone HCl (Naloxone Hcl 0.4 Mg/Ml Vial) 0.04 mg IVPUSH Q5M PRN PRN Reason: Excessive sedation or RR < 8 Nystatin (Nystatin Oral Susp 500,000 Unit/5 Ml Oral.Susp) 100,000 unit PO DAILY PRN; Protocol PRN Reason: FLARES Nystatin (Nystatin Powder 15 Gm Bottle) 1 appl TOPICAL BID [facility]; Protocol Last Admin: 09/06/24 09:13 Dose: Not Given Documented By: SESAR Non-Admin Reason: Off unit: Dialysis Omeprazole (Omeprazole 20 Mg Capsule.Dr) 20 mg PO DAILY@0630 [facility] Last Admin: 09/06/24 05:32 Dose: 20 mg Documented By: NIKKI Ondansetron HCl (Ondansetron Hcl 4 Mg/2 Ml Vial) 4 mg IVPUSH Q6H PRN PRN Reason: Nausea and Vomiting Last Admin: 09/05/24 17:39 Dose: 4 mg Documented By: NAMAN Oxycodone HCl (Oxycodone Hcl Immed Release 5 Mg Tablet) 5 mg PO Q4H PRN PRN Reason: Pain, Moderate(Pain Scale 4-6) Last Admin: 09/06/24 08:52 Dose: 5 mg Documented By: SESAR Polyethylene Glycol (Polyethylene Glycol 3350 17 Gm Powd.Pack) 17 gm PO DAILY PRN PRN Reason: Constipation Quetiapine Fumarate (Quetiapine Fumarate 50 Mg Tablet) 50 mg PO TID PRN PRN Reason: Anxiety Last Admin: 09/05/24 20:42 Dose: 50 mg Documented By: NIKKI Sodium Chloride (0.9 % Sodium Chloride Flush 3 Ml Syringe) 3 ml IVFLUSH QSHIFT [facility] Last Admin: 09/06/24 11:55 Dose: Not Given Documented By: SESAR Non-Admin Reason: Off unit: Dialysis Sodium Hypochlorite (Sodium Hypochlorite 0.5% 473 Ml Solution) 1 appl TOPICAL DAILY [facility] Last Admin: 09/06/24 09:13 Dose: Not Given Documented By: SESAR Non-Admin Reason: Off unit: Dialysis Topiramate (Topiramate 100 Mg Tablet) 100 mg PO BID [facility] Last Admin: 09/06/24 12:08 Dose: 100 mg Documented By: SESAR Trazodone HCl (Trazodone Hcl 100 Mg Tablet) 100 mg PO BEDTIME PRN PRN Reason: Insomnia Last Admin: 09/05/24 20:42 Dose: 100 mg Documented By: ALVAROILAngelica Vancomycin HCl (Vancomycin Hcl 125 Mg Capsule) 125 mg PO Q6H [facility] Stop: 09/20/24 10:59 Last Admin: 09/06/24 12:09 Dose: 125 mg Documented By: SESAR Warfarin Sodium (Warfarin Sodium 2.5 Mg Tablet) 2.5 mg PO DAILY@1800 [facility] Last Admin: 09/05/24 17:37 Dose: 2.5 mg Documented [facility]: [facility] 09/05/24 06:26 09/05/24 06:26 Assessment and Plan (1) Clostridium difficile infection: Status: Acute (2) Calciphylaxis: Status: Acute (3) 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 Pt was transferred to [facility] due to concern for right atrial mass associated dialysis catheter tip, and pt is now being transferred back to [facility] for continued treatment and STR placement. Acute C diff infection Stool studies positive for C diff on 08/18 no diarrhea overnight vancomycin 125 mg p.o. q.6 ID following; continue po Vancomycin through the course of IV Abx and 2 days after (september 20, 2024). Flank wounds Wound care following POD #1 s/p Debridement of bilateral buttock ulcers. refused dress changing today Infective endocarditis with ESBL Klebsiella Bacteremia complicated with with Right atrial mass TTE at [facility] showed severely dilated left atrium and left ventricle, LVEF 59%, adherent mass with mobile components of left atrium Culture positive for Klebsiella pneumoniae that has cephalosporin resistant gene positive and Pseudomonas Pt started on meropenem 500 mg IV, continue for total of 6 weeks to finish by September 18, 2024 Follow up outpatient with [place] [facility] for repeat TTE and possible outpatient cardiac MRI Unable to discharge to home as HD center does not cover Meropenem new LUE swelling negative doppler, resolving Dilated CBD CT of abdomen and pelvis on 08/07 [facility] found distended gallbladder and distal CBD dilation of 1.1 cm and possible filling deficit and distal CBD concerning for choledocholithiasis GI recommendation was for MRCP at [facility], however pt refused Pt currently asymptomatic without RUQ abdominal pain, no nausea or vomiting; has been eating and drinking without issue Currently no indication for MRCP, Consider GI consult and repeat imaging if pt develops symptoms Bilateral lower extremity wounds 2/2 Calciphylaxis Continue sodium thiosulfate 25 g IV 3 times weekly after dialysis Wound care (see notes) Analgesics for pain management Pt has so far declined debridement General surgery consult, require extensive debridement with the assistance of Plastic surgery for wound coverage in his much more extensive that can be handled at our facility. Patient will be best treated at a tertiary care center with multimodality treatment including plastic surgery and inpatient wound care. ESRD On HD T//Thu Anemia of chronic disease S/p 3 units PRBCs at [facility] Retacrit 31515 units x3 weekly post dialysis Follow CBC, transfuse as necessary HTN Continue amlodipine and clonidine Antiphospholipid syndrome Continue warfarin Daily INR with target range 2-3 GERD Continue PPI Polysubstance use disorder Continue methadone 100 mg daily and 95 mg at bedtime Mood disorder Continue hydroxyzine, trazodone, topiramate, and bupropion Full Code DVT Prophylaxis: On Warfarin reason for continued hospitalization: awaiting bed, needs iv abx Quality Stroke Does the patient have a stroke diagnosis?: No VTE Prior VTE?: No VTE Risk Level:: Medical - moderate - high VTE Device Contraindication: Treatment Not Indicated VTE Drug Contraindication: N/A - Med Ordered
[2024-09-06 15:50] VITALS: RESP 16
[2024-09-06] MEDS: Warfarin Sodium 2.5 MG TABLET PO (17:43)
[2024-09-06] MEDS: Meropenem 500 MG VIAL IV (17:43)
[2024-09-06] MEDS: Epoetin Alfa-epbx 10,000 UNIT/ML VIAL 8000 UNIT IVPUSH (18:06)
[2024-09-06] MEDS: 0.9 % Sodium Chloride Flush 3 ML SYRINGE IVFLUSH ×2 (18:14→20:05)
--- NOTE | 2024-09-06 18:37 | P.PNNP_ITS ---
Subjective Subjective Date of Service: 09/06/24 Interval history: seen and evaluated on HD this morning ; reports pain at wounds sites , post debridement Physical Exam 2 Vital Signs: Vital Signs: Last Vital Signs Temp 98.7 F 09/06/24 14:54 Pulse 85 09/06/24 14:54 Resp 16 09/06/24 15:50 BP 153/82 H 09/06/24 14:54 Pulse Ox 95 09/06/24 14:54 O2 Del Method Room Air 09/06/24 14:54 O2 Flow Rate 6 09/05/24 12:46 BMI result Body Mass Index 27.4 Const: General: no acute distress Orientation/consciousness: patient oriented x3 Eyes: EOM: EOMs intact bilaterally Resp: Auscultation: diminished lung sounds Cardio: Rate: regular rate GI: Palpation (GI): Soft to palpation Neuro: General: patient oriented x3 Objective Data Labs 09/05/24 06:26 09/05/24 06:26 Microbiology Microbiology Results: Microbiology 08/18/24 19:34 Blood - Venous Blood Culture - Final No growth after 5 days. 08/18/24 19:34 Blood - Venous Blood Culture - Final No growth after 5 days. Procedures Date of Service Date of Service: 09/06/24 Assessment & Plan Assessment and plan (1) End stage renal disease on dialysis: Status: Acute Plan Usually gets HD on TTS -seen on HD Has a functioning HD catheter Na thiosulphate TTS as ordered- checked with pharmacist ( had been getting TTS) No Vitamin D , calcitriol or ca based binders Phos binders with meals Procrit [id number] U 3 times a week TTS Shall follow along Progress Note: Quality Stroke Does the patient have a stroke diagnosis?: No
[2024-09-06 19:43] VITALS: BP 140/70; PULSE 84; RESP 16; TEMP 37.1; O2SAT 93
[2024-09-06] MEDS: Doxepin HCl 10 MG CAPSULE PO (20:04)
[2024-09-06] MEDS: cloNIDine HCL 0.2 MG TABLET PO (20:04)
[2024-09-06] MEDS: methADONE HCl 20 MG/2 ML ORAL.CONC 95 MG PO (20:05)
[2024-09-06] MEDS: ondansetron HCL 4 MG/2 ML VIAL IVPUSH (21:38)
[2024-09-06] MEDS: hydrOXYzine HCL 50 MG TABLET PO (21:38)
[2024-09-06] MEDS: traZODone HCL 100 MG TABLET PO (21:38)
[2024-09-07 03:13] VITALS: BP 131/92; PULSE 76; RESP 18; TEMP 36.9; O2SAT 95
[2024-09-07 06:13] VITALS: RESP 17
[2024-09-07] MEDS: Omeprazole 20 MG CAPSULE.DR PO (06:13)
[2024-09-07] MEDS: HYDROmorphone HCl 1 MG/ML SYRINGE IVPUSH ×5 (06:13→23:30)
[2024-09-07] MEDS: vancomycin HCL 125 MG CAPSULE PO ×4 (06:13→23:30)
[2024-09-07 07:13] VITALS: BP 142/83; PULSE 80; RESP 16; TEMP 36.9; O2SAT 96
[2024-09-07] MEDS: Multivitamin TABLET 1 TAB PO (09:14)
[2024-09-07] MEDS: hydrOXYzine HCL 50 MG TABLET PO (09:14)
[2024-09-07] MEDS: amLODIPine Besylate 10 MG TABLET PO (09:14)
[2024-09-07] MEDS: Topiramate 100 MG TABLET PO ×2 (09:15→19:46)
[2024-09-07] MEDS: oxyCODONE HCl Immed Release 5 MG TABLET PO ×2 (09:15→14:23)
[2024-09-07] MEDS: Cyanocobalamin (Vitamin B-12) 100 MCG TABLET PO (09:15)
[2024-09-07] MEDS: Gabapentin 600 MG TABLET PO ×2 (09:15→19:46)
[2024-09-07] MEDS: buPROPion HCl XL 300 MG TAB.ER.24H PO (09:15)
[2024-09-07] MEDS: methADONE HCl 20 MG/2 ML ORAL.CONC 100 MG PO (09:15)
[2024-09-07] MEDS: QUEtiapine Fumarate 50 MG TABLET PO (09:16)
--- NOTE | 2024-09-07 09:18 | P.PNNP_ITS ---
Subjective Subjective Date of Service: 09/07/24 Interval history: seen and evaluated this morning ; reports pain at wounds sites , post debridement; Had HD yesterday Physical Exam 2 Vital Signs: Vital Signs: Last Vital Signs Temp 98.4 F 09/07/24 07:13 Pulse 80 09/07/24 07:13 Resp 16 09/07/24 07:13 BP 142/83 H 09/07/24 07:13 Pulse Ox 96 09/07/24 07:13 O2 Del Method Room Air 09/07/24 07:13 O2 Flow Rate 6 09/05/24 12:46 BMI result Body Mass Index 27.4 Const: General: no acute distress Orientation/consciousness: patient oriented x3 Eyes: EOM: EOMs intact bilaterally Resp: Auscultation: diminished lung sounds Cardio: Rate: regular rate GI: Palpation (GI): Soft to palpation Neuro: General: patient oriented x3 Objective Data Labs 09/05/24 06:26 09/05/24 06:26 Microbiology Microbiology Results: Microbiology 08/18/24 19:34 Blood - Venous Blood Culture - Final No growth after 5 days. 08/18/24 19:34 Blood - Venous Blood Culture - Final No growth after 5 days. Procedures Date of Service Date of Service: 09/07/24 Assessment & Plan Assessment and plan (1) End stage renal disease on dialysis: Status: Acute Plan Usually gets HD on TTS -Due HD tomorrow Has a functioning HD catheter Na thiosulphate TTS as ordered- checked with pharmacist ( had been getting TTS) No Vitamin D , calcitriol or ca based binders Phos binders with meals Procrit [id number] U 3 times a week TTS Shall follow along Progress Note: Quality Stroke Does the patient have a stroke diagnosis?: No
[2024-09-07] MEDS: 0.9 % Sodium Chloride Flush 3 ML SYRINGE IVFLUSH ×3 (09:20→19:54)
[2024-09-07] MEDS: Nystatin Powder 15 GM BOTTLE 1 APPL TOPICAL (09:21)
--- NOTE | 2024-09-07 13:38 | MHC.CLN ---
F/U DIET=REGULAR. ENSURE TID PER PATIENT PREFERENCE. SUPPLEMENT PROVIDES 1050 KCALS, 60 G PROTEIN. SKIN WITH STAGE II TO RIGHT ISCHIUM AND STAGE III TO LEFT ISCHIUM. SUPPLEMENT TO PROMOTE WOUND HEALING. MOST RECENT PO INTAKE VARIABLE, 0-100%. MONITOR PO INTAKE AND ENCOURAGE SUPPLEMENTS.
--- NOTE | 2024-09-07 14:34 | P.PNIM_ITS ---
Subjective Subjective Date of Service: 09/07/24 Interval History: seen and evaluated this morning reports pain at wounds sites , post debridement D2 no BM in 3 days no other events Review of Systems Review of Systems: Yes all other systems are reviewed and are negative Physical Exam 2 Vital Signs: Vital Signs: Last Vital Signs Temp 98.4 F 09/07/24 07:13 Pulse 80 09/07/24 07:13 Resp 16 09/07/24 07:13 BP 142/83 H 09/07/24 07:13 Pulse Ox 96 09/07/24 07:13 O2 Del Method Room Air 09/07/24 07:13 O2 Flow Rate 6 09/05/24 12:46 BMI result Body Mass Index 27.4 Const: Other: Constitutional : Awake, interactive, frail looking, not in distress Neck : Normal inspection, Supple Cardiovascular : RRR, no JVP, no lower extremity edema Respiratory : good bilateral air entry, no crackles, wheezes or rhonchi, on O2 supplement Gastrointestinal: soft, lax, Normal bowel sounds, Non tender Skin : Warm, Dry, bilateral lower extremities eschar , bilateral flank wounds covered with dressing Neurological : Alert & oriented x3, No focal deficit Objective Data Active Medications Acetaminophen (Acetaminophen 325 Mg Tablet) 650 mg PO Q6H PRN PRN Reason: Pain, Mild 1-3,fever,headache Last Admin: 09/04/24 20:13 Dose: 650 mg Documented By: LILLY Albuterol Sulfate (Albuterol Sulfate 90 Mcg 8 Gm Inhaler) 2 puff INHALE RQ4H PRN PRN Reason: Wheezing Amlodipine Besylate (Amlodipine Besylate 10 Mg Tablet) 10 mg PO DAILY [facility]; Protocol Last Admin: 09/07/24 09:14 Dose: 10 mg Documented By: POONAM Bupropion HCl (Bupropion Hcl Xl 300 Mg Tab.Er.24h) 300 mg PO DAILY [facility] Last Admin: 09/07/24 09:15 Dose: 300 mg Documented By: POONAM Clonidine HCl (Clonidine Hcl 0.2 Mg Tablet) 0.2 mg PO BEDTIME [facility]; Protocol Last Admin: 09/06/24 20:04 Dose: 0.2 mg Documented By: KI-EVANS Cyanocobalamin (Cyanocobalamin (Vitamin B-12) 100 Mcg Tablet) 100 mcg PO DAILY [facility] Last Admin: 09/07/24 09:15 Dose: 100 mcg Documented By: POONAM Doxepin HCl (Doxepin Hcl 10 Mg Capsule) 10 mg PO BEDTIME [facility] Last Admin: 09/06/24 20:04 Dose: 10 mg Documented By: TONYA Epoetin Devin-epbx (Epoetin Devin-Epbx 10,000 Unit/Ml Vial) 8,000 unit IVPUSH TuThSa@1800 [facility] Last Admin: 09/06/24 18:06 Dose: 8,000 unit Documented By: SESAR Comments: Gabapentin (Gabapentin 600 Mg Tablet) 600 mg PO BID [facility] Last Admin: 09/07/24 09:15 Dose: 600 mg Documented By: POONAM Heparin Sodium (Porcine) (Heparin Sodium,Porcine 5,000 Unit/Ml Vial) 5,000 unit INTRACATH TUTA@1645 [facility] Last Admin: 09/06/24 16:51 Dose: Not Given Documented By: SESAR Non-Admin Reason: dialysis order Hydromorphone HCl (Hydromorphone Hcl 1 Mg/Ml Syringe) 1 mg IVPUSH Q4H PRN; Protocol PRN Reason: Pain, Severe (Pain Scale 7-10) Last Admin: 09/07/24 14:23 Dose: 1 mg Documented By: POONAM Hydroxyzine HCl (Hydroxyzine Hcl 50 Mg Tablet) 50 mg PO TID PRN PRN Reason: Anxiety Last Admin: 09/07/24 09:14 Dose: 50 mg Documented By: POONAM Magnesium Hydroxide (Milk Of Magnesia 30 Ml Oral.Susp) 30 ml PO DAILY PRN PRN Reason: Constipation Melatonin (Melatonin 3 Mg Tablet) 6 mg PO BEDTIME PRN PRN Reason: Insomnia Last Admin: 09/04/24 20:14 Dose: 6 mg Documented By: LILLY Meropenem (Meropenem 500 Mg Vial) 500 mg IV TuThSa@1800 [facility] Stop: 09/30/24 17:59 Last Admin: 09/06/24 17:43 Dose: 500 mg Documented By: SESAR Methadone HCl (Methadone Hcl 20 Mg/2 Ml Oral.Conc) 100 mg PO DAILY [facility] Last Admin: 09/07/24 09:15 Dose: 100 mg Documented By: POONAM Co-signed By: ESAU Methadone HCl (Methadone Hcl 20 Mg/2 Ml Oral.Conc) 95 mg PO BEDTIME [facility] Last Admin: 09/06/24 20:05 Dose: 95 mg Documented By: TONYA Co-signed By: ELI Multivitamins/Vitamin C (Multivitamin Tablet) 1 tab PO DAILY [facility] Last Admin: 09/07/24 09:14 Dose: 1 tab Documented By: POONAM Naloxone HCl (Naloxone Hcl 0.4 Mg/Ml Vial) 0.04 mg IVPUSH Q5M PRN PRN Reason: Excessive sedation or RR < 8 Nystatin (Nystatin Oral Susp 500,000 Unit/5 Ml Oral.Susp) 100,000 unit PO DAILY PRN; Protocol PRN Reason: FLARES Nystatin (Nystatin Powder 15 Gm Bottle) 1 appl TOPICAL BID [facility]; Protocol Last Admin: 09/07/24 09:21 Dose: 1 appl Documented By: POONAM Omeprazole (Omeprazole 20 Mg Capsule.Dr) 20 mg PO DAILY@0630 [facility] Last Admin: 09/07/24 06:13 Dose: 20 mg Documented By: TONYA Ondansetron HCl (Ondansetron Hcl 4 Mg/2 Ml Vial) 4 mg IVPUSH Q6H PRN PRN Reason: Nausea and Vomiting Last Admin: 09/06/24 21:38 Dose: 4 mg Documented By: TONYA Oxycodone HCl (Oxycodone Hcl Immed Release 5 Mg Tablet) 5 mg PO Q4H PRN PRN Reason: Pain, Moderate(Pain Scale 4-6) Last Admin: 09/07/24 14:23 Dose: 5 mg Documented By: POONAM Polyethylene Glycol (Polyethylene Glycol 3350 17 Gm Powd.Pack) 17 gm PO DAILY PRN PRN Reason: Constipation Quetiapine Fumarate (Quetiapine Fumarate 50 Mg Tablet) 50 mg PO TID PRN PRN Reason: Anxiety Last Admin: 09/07/24 09:16 Dose: 50 mg Documented By: POONAM Sodium Chloride (0.9 % Sodium Chloride Flush 3 Ml Syringe) [facility] Last Admin: 09/07/24 09:20 Dose: 3 ml Documented By: POONAM Sodium Hypochlorite (Sodium Hypochlorite 0.5% 473 Ml Solution) 1 appl TOPICAL DAILY [facility] Last Admin: 09/07/24 09:21 Dose: Not Given Documented By: POONAM Non-Admin Reason: Patient Refused Topiramate (Topiramate 100 Mg Tablet) 100 mg PO BID [facility] Last Admin: 09/07/24 09:15 Dose: 100 mg Documented By: POONAM Trazodone HCl (Trazodone Hcl 100 Mg Tablet) 100 mg PO BEDTIME PRN PRN Reason: Insomnia Last Admin: 09/06/24 21:38 Dose: 100 mg Documented By: KI-EVANS Vancomycin HCl (Vancomycin Hcl 125 Mg Capsule) 125 mg PO Q6H [facility] Stop: 09/20/24 10:59 Last Admin: 09/07/24 10:17 Dose: 125 mg Documented By: POONAM Warfarin Sodium (Warfarin Sodium 2.5 Mg Tablet) 2.5 mg PO DAILY@1800 [facility] Last Admin: 09/06/24 17:43 Dose: 2.5 mg Documented By: FOSTEKR Labs 09/05/24 06:26 09/05/24 06:26 Assessment and Plan (1) Clostridium difficile infection: Status: Acute (2) Calciphylaxis: Status: Acute (3) 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 Pt was transferred to [facility] due to concern for right atrial mass associated dialysis catheter tip, and pt is now being transferred back to [facility] for continued treatment and STR placement. Acute C diff infection Stool studies positive for C diff on 08/18 no diarrhea overnight vancomycin 125 mg p.o. q.6 ID following; continue po Vancomycin through the course of IV Abx and 2 days after (september 20, 2024). She has been constipated for 3 days, to give Lactulose Flank wounds Wound care following s/p Debridement of bilateral buttock ulcers 09/05/24 refused dress changing on occasions Switched to Dilaudid IV for pain control, wean down as tolerated Infective endocarditis with ESBL Klebsiella Bacteremia complicated with with Right atrial mass TTE at [facility] showed severely dilated left atrium and left ventricle, LVEF 59%, adherent mass with mobile components of left atrium Culture positive for Klebsiella pneumoniae that has cephalosporin resistant gene positive and Pseudomonas Pt started on meropenem 500 mg IV, continue for total of 6 weeks to finish by September 18, 2024 Follow up outpatient with Cardiology [place] [facility] [place] discharge for repeat TTE and possible outpatient cardiac MRI Unable to discharge to home as HD center does not cover Meropenem new LUE swelling negative doppler, resolving Dilated CBD CT of abdomen and pelvis on 08/07 [facility] found distended gallbladder and distal CBD dilation of 1.1 cm and possible filling deficit and distal CBD concerning for choledocholithiasis GI recommendation was for MRCP at [facility], however pt refused Pt currently asymptomatic without RUQ abdominal pain, no nausea or vomiting; has been eating and drinking without issue Currently no indication for MRCP, Consider GI consult and repeat imaging if pt develops symptoms Bilateral lower extremity wounds 2/2 Calciphylaxis Continue sodium thiosulfate 25 g IV 3 times weekly after dialysis Wound care (see notes) Analgesics for pain management Pt has so far declined debridement General surgery consult, require extensive debridement with the assistance of Plastic surgery for wound coverage in his much more extensive that can be handled at our facility. Patient will be best treated at a tertiary care center with multimodality treatment including plastic surgery and inpatient wound care. ESRD On HD T//Thu Anemia of chronic disease S/p 3 units PRBCs at [facility] Retacrit 10704 units x3 weekly post dialysis Follow CBC, transfuse as necessary HTN Continue amlodipine and clonidine Antiphospholipid syndrome Continue warfarin Daily INR with target range 2-3 GERD Continue PPI Polysubstance use disorder Continue methadone 100 mg daily and 95 mg at bedtime Mood disorder Continue hydroxyzine, trazodone, topiramate, and bupropion Full Code DVT Prophylaxis: On Warfarin reason for continued hospitalization: awaiting bed, needs iv abx Quality Stroke Does the patient have a stroke diagnosis?: No VTE Prior VTE?: No VTE Risk Level:: Medical - moderate - high VTE Device Contraindication: Treatment Not Indicated VTE Drug Contraindication: N/A - Med Ordered
[2024-09-07 16:00] VITALS: BP 148/88; PULSE 80; RESP 16; TEMP 36.9; O2SAT 96
--- NOTE | 2024-09-07 16:06 | MHC.CM.PN ---
Patients last dose of Meropenum is 09/18/24. No bed offers have been received. DP Home with [facility] via BLS.
--- NOTE | 2024-09-07 16:39 | HO.WOUND ---
Addendum entered by Jackelyn Beckham RN 09/14/24 13:14: 09/14/24 @ 1300 chart review and discussed with direct care nurse that flank dressing are to be done daily and lower legs are every other day. Direct care nurse reports patient allowed all of her dressing changes to be completed overnight. Will continue to follow along and reassess at future date. Original Note: Wound Consult: Follow up 43yr old female? admitted to [facility] on 08/18/24 - See progress notes and H&P for detailed history.? Chart review reveals the patient continues to refuse the dressing changes at times. She has been educated multiple times to the benefits of allowing proper wound care and the concerns for worsening if she continues to refuse. The provider was notified of her continued refusal. The bilateral flank sites are overall improving post surgical debridement but remains with some yellow slough. Would consider Santyl application if patient is compliant with dressing changes daily. She was educated on this - there is concern for Santyl use and not having routine dressing changes. Dwayne continue to assess for santly application and daily dressing compliance. Patient continues to refuse Dakins and is requesting Saline wet to dry dressing - applied today at bedside. Will continue to monitor., Patient continue to be on Agility Pulsate bed. Left Lower Leg - Eschar to both legs continues to be overall stable - small piece of xeroform applied to moist edges rest remains dry and covered with ABD pad. Continue with dressing every other day. Left Flank - improved wound bed remain with some adherent yellow slough - continue wet to moist dressing. Daily. Right Flank - improved wound bed remain with some adherent yellow slough - continue wet to moist dressing. Daily. Recommendations: 1. Turn and Reposition every 2 hours and as needed for patient comfort.? Use pillows or wedges to support off loading positions. 2. Off Load all bony prominences with use of pillows and heel boots if needed.? Apply Preventative foams where needed. ? 3. Monitor for incontinence and moisture control, use barrier creams when needed for prevention and treatment. 4. Provide adequate and supplemental nutrition.? 5. Continue low air loss mattress. 6. When applicable maintain blood glucose levels per Providers order. 7. Bilateral Lower Legs - Cleanse with NS moist gauze, dry well. Apply skin prep to periwound. Cover moist wounds with single layer of Xeroform followed by Gauze, ABD pad and wrap. Change every other day. May cover black dry eschar with dry gauze only. 8. Posterior Hip and Flank area - Off load pressure with Q2hr turns and pillows. Cleanse with NS moist gauze, Apply thick barrier to wound edges, apply NS moist gauze to wound beds, cover with dry gauze, ABD pads. Change daily. 9. Bilateral Ischium and coccyx - Apply skin prep, cover with foam dressing. Change every 5 days and PRN. 10. Perineal - Apply antifungal per provider order. Recommend follow up out patient Wound Clinic at [address] [place] [id number] and to call for an appointment at time of discharge. [phone].? Details from previous assessments: Wound consult follow up for Bilateral Legs and Posterior hip flank sites.? Chart review reveals patient continues to refuse dressing changes often. The patient and I had a margy conversation regarding concerns with dressing refusals and infection. She reports she has not refused dressing changes and she recalls they are done often. Chart review does not support this. They appear they are often not completed due to patient refusal. The patient was educated on the importance of proper wound care and the concern for wound infection should the bilateral hip dressings not be changed. She reports the Dakins is not comfortable to her, we discussed the benefits to the wund beds to treat suspected pseudomonas invasion given the green blue drainage. We did discuss if she was switched to NS and it would increase her compliance it is an alternative we could explore - she reported she would prefer to stick with Dakins at this time. Bilateral lower legs can be extended to every other day - but they continue to be concerning over all. There are areas where the black eschar is moist and yellow slough with lifting edges. Continue xerorofm to moist areas and keep stable black areas dry with dry gauze dressing. Agility pulsate bed in use. No new topical recommendations made at this time. Some improvement noted to yellow moist slough. Rigt Flank - Little to no change noted. Right Lower Leg Recommendations: 1. Turn and Reposition every 2 hours and as needed for patient comfort.? Use pillows or wedges to support off loading positions. 2. Off Load all bony prominences with use of pillows and heel boots if needed.? Apply Preventative foams where needed. ? 3. Monitor for incontinence and moisture control, use barrier creams when needed for prevention and treatment. 4. Provide adequate and supplemental nutrition.? 5. Continue low air loss mattress. 6. When applicable maintain blood glucose levels per Providers order. 7. Bilateral Lower Legs - Cleanse with NS moist gauze, dry well. Apply skin prep to periwound. Cover moist wounds with single layer of Xeroform followed by Gauze, ABD pad and wrap. Change every other day. May cover black dry eschar with dry gauze only. 8. Posterior Hip and Flank area - Off load pressure with Q2hr turns and pillows. Cleanse with Dakins moist gauze, Apply thick barrier to wound edges, apply Dakins moist gauze to wound beds, cover with dry gauze, ABD pads. Change daily. 9. Bilateral Ischium and coccyx - Apply skin prep, cover with foam dressing. Change every 5 days and PRN. 10. Perineal - Apply antifungal per provider order. Recommend follow up out patient Wound Clinic at [address] [place] [address] and to call for an appointment at time of discharge. [phone].? day. 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 TT to provider. Left Leg Right Leg Right Medial Leg - with small area of moist yellow slough Bilateral Legs Etiology: ?Unclear Etiology Wound Bed: mostly dry stable necrotic eschar small areas of moist lifted eschar reveals yellow slough Drainage / Odor: small amount of ten drainage Edges: ? irregular and rolled Rekha wound: ? swelling noted Pain: extreme pain reported Goals of Treatment: ? request for general surgery to assess - dry dressing vs xeroform to keep eschar stable and intact for autolytic debridement Right Side Left Side Posterior Hip Flank area Etiology: ?Unclear Etiology Wound Bed: various stages of necrotic slough Drainage / Odor: yellow corey green blue drainage indicative of pseudomonas Edges: ? irregular and atypical Rekha wound: ? No Induration or Warmth noted Pain: extreme pain reported Goals of Treatment: ?Dakins wet to moist dressing and request for general surgery to assess Recommendations: 1. Turn and Reposition every 2 hours and as needed for patient comfort.? Use pillows or wedges to support off loading positions. 2. Off Load all bony prominences with use of pillows and heel boots if needed.? Apply Preventative foams where needed. ? 3. Monitor for incontinence and moisture control, use barrier creams when needed for prevention and treatment. 4. Provide adequate and supplemental nutrition.? 5. Continue low air loss mattress. 6. When applicable maintain blood glucose levels per Providers order. 7. Bilateral Lower Legs and - Cleanse with Ns moist gauze, dry well. Apply skin prep to periwound. Cover wounds with single layer of Xeroform followed by Gauze, ABD pad and wrap. May use foam dressing to posterior hip/ flank to aid in pressure redistribution. 8. Posterior Hip and Flank area - Off load pressure with Q2hr turns and pillows. Cleanse with Dakins moist gauze, Apply skin barrier to wound edges, apply Dakins moist gauze to wound beds, cover with dry gauze, ABD pads. Change daily. 9. Bilateral Ischium and coccyx - Apply skin prep, cover with foam dressing. Change every 5 days and PRN. 10. Perineal - Apply antifungal per provider order. Recommend follow up out patient Wound Clinic at [address] [place] [id number] and to call for an appointment at time of discharge. [phone].? Re-consult wound care Nurse for wound deterioration or wound changes.
[2024-09-07] MEDS: Warfarin Sodium 2.5 MG TABLET PO (17:09)
[2024-09-07] MEDS: polyethylene glycoL 3350 17 GM POWD.PACK PO (17:10)
[2024-09-07 19:33] VITALS: BP 132/87; PULSE 78; RESP 17; TEMP 37.1; O2SAT 93
[2024-09-07] MEDS: methADONE HCl 20 MG/2 ML ORAL.CONC 95 MG PO (19:43)
[2024-09-07] MEDS: Doxepin HCl 10 MG CAPSULE PO (19:46)
[2024-09-07] MEDS: cloNIDine HCL 0.2 MG TABLET PO (19:46)
[2024-09-08] MEDS: oxyCODONE HCl Immed Release 5 MG TABLET PO ×3 (01:23→18:22)
[2024-09-08] MEDS: Acetaminophen 325 MG TABLET 650 MG PO ×2 (01:23→18:22)
[2024-09-08] MEDS: Omeprazole 20 MG CAPSULE.DR PO (05:49)
[2024-09-08] MEDS: vancomycin HCL 125 MG CAPSULE PO ×3 (05:49→23:32)
[2024-09-08] MEDS: HYDROmorphone HCl 1 MG/ML SYRINGE IVPUSH ×5 (05:50→23:32)
[2024-09-08 07:15] VITALS: BP 147/95; PULSE 70; RESP 16; TEMP 36.3; O2SAT 96
[2024-09-08] MEDS: methADONE HCl 20 MG/2 ML ORAL.CONC 100 MG PO (08:18)
[2024-09-08] MEDS: amLODIPine Besylate 10 MG TABLET PO (08:18)
[2024-09-08] MEDS: buPROPion HCl XL 300 MG TAB.ER.24H PO (08:18)
[2024-09-08] MEDS: 0.9 % Sodium Chloride Flush 3 ML SYRINGE IVFLUSH ×2 (08:22→19:50)
[2024-09-08] MEDS: Nystatin Powder 15 GM BOTTLE 1 APPL TOPICAL (08:24)
[2024-09-08] MEDS: Topiramate 100 MG TABLET PO ×2 (08:26→19:50)
--- NOTE | 2024-09-08 12:43 | HO.PM.IMPN ---
Subjective Subjective Date of Service: 09/08/24 Interval History: seen and evaluated this morning reports less pain at wounds sites , post debridement no BM in 3 days no other events Review of Systems Review of Systems: Yes all other systems are reviewed and are negative Physical Exam Vital Signs: Vital Signs: Last Vital Signs Temp 97.3 F 09/08/24 07:15 Pulse 70 09/08/24 07:15 Resp 16 09/08/24 07:15 BP 147/95 H 09/08/24 07:15 Pulse Ox 96 09/08/24 07:15 O2 Del Method Room Air 09/08/24 07:15 O2 Flow Rate 6 09/05/24 12:46 BMI result Body Mass Index 27.4 Const: Other: Constitutional : Awake, interactive, frail looking, not in distress Neck : Normal inspection, Supple Cardiovascular : RRR, no JVP, no lower extremity edema Respiratory : good bilateral air entry, no crackles, wheezes or rhonchi, on O2 supplement Gastrointestinal: soft, lax, Normal bowel sounds, Non tender Skin : Warm, Dry, bilateral lower extremities eschar , bilateral flank wounds covered with dressing Neurological : Alert & oriented x3, No focal deficit Objective Data Active Medications Acetaminophen (Acetaminophen 325 Mg Tablet) 650 mg PO Q6H PRN PRN Reason: Pain, Mild 1-3,fever,headache Last Admin: 09/08/24 01:23 Dose: 650 mg Documented By: GEOVANNA Comments: given per pt request down time Albuterol Sulfate (Albuterol Sulfate 90 Mcg 8 Gm Inhaler) 2 puff INHALE RQ4H PRN PRN Reason: Wheezing Amlodipine Besylate (Amlodipine Besylate 10 Mg Tablet) 10 mg PO DAILY [facility]; Protocol Last Admin: 09/08/24 08:18 Dose: 10 mg Documented By: ANGELIA Bupropion HCl (Bupropion Hcl Xl 300 Mg Tab.Er.24h) 300 mg PO DAILY [facility] Last Admin: 09/08/24 08:18 Dose: 300 mg Documented By: ANGELIA Clonidine HCl (Clonidine Hcl 0.2 Mg Tablet) 0.2 mg PO BEDTIME [facility]; Protocol Last Admin: 09/07/24 19:46 Dose: 0.2 mg Documented By: GEOVANNA Cyanocobalamin (Cyanocobalamin (Vitamin B-12) 100 Mcg Tablet) 100 mcg PO DAILY [facility] Last Admin: 09/08/24 08:23 Dose: Not Given Documented By: ANGELIA Non-Admin Reason: Patient Refused Doxepin HCl (Doxepin Hcl 10 Mg Capsule) 10 mg PO BEDTIME [facility] Last Admin: 09/07/24 19:46 Dose: 10 mg Documented By: GEOVANNA Epoetin Devin-epbx (Epoetin Devin-Epbx 10,000 Unit/Ml Vial) 8,000 unit IVPUSH TuThSa@1800 [facility] Last Admin: 09/06/24 18:06 Dose: 8,000 unit Documented By: SESAR Comments: Gabapentin (Gabapentin 600 Mg Tablet) 600 mg PO BID [facility] Last Admin: 09/08/24 08:23 Dose: Not Given Documented By: ANGELIA Non-Admin Reason: Patient Refused Heparin Sodium (Porcine) (Heparin Sodium,Porcine 5,000 Unit/Ml Vial) 5,000 unit INTRACATH TUTHSA@1645 [facility] Last Admin: 09/06/24 16:51 Dose: Not Given Documented By: SESAR Non-Admin Reason: dialysis order Hydromorphone HCl (Hydromorphone Hcl 1 Mg/Ml Syringe) 1 mg IVPUSH Q4H PRN; Protocol PRN Reason: Pain, Severe (Pain Scale 7-10) Last Admin: 09/08/24 09:35 Dose: 1 mg Documented By: ANGELIA Hydroxyzine HCl (Hydroxyzine Hcl 50 Mg Tablet) 50 mg PO TID PRN PRN Reason: Anxiety Last Admin: 09/07/24 09:14 Dose: 50 mg Documented By: POONAM Sodium Thiosulfate 12.5 gm/ (Sodium Chloride) 200 mls @ 400 mls/hr IV Q30M [facility] Stop: 09/08/24 18:59 Magnesium Hydroxide (Milk Of Magnesia 30 Ml Oral.Susp) 30 ml PO DAILY PRN PRN Reason: Constipation Melatonin (Melatonin 3 Mg Tablet) 6 mg PO BEDTIME PRN PRN Reason: Insomnia Last Admin: 09/04/24 20:14 Dose: 6 mg Documented By: LILLY Meropenem (Meropenem 500 Mg Vial) 500 mg IV TuThSa@1800 [facility] Stop: 09/30/24 17:59 Last Admin: 09/06/24 17:43 Dose: 500 mg Documented By: SESAR Methadone HCl (Methadone Hcl 20 Mg/2 Ml Oral.Conc) 100 mg PO DAILY [facility] Last Admin: 09/08/24 08:18 Dose: 100 mg Documented By: ANGELIA Co-signed By: PORSCHE Methadone HCl (Methadone Hcl 20 Mg/2 Ml Oral.Conc) 95 mg PO BEDTIME [facility] Last Admin: 09/07/24 19:43 Dose: 95 mg Documented By: GEOVANNA Co-signed By: ELI Multivitamins/Vitamin C (Multivitamin Tablet) 1 tab PO DAILY [facility] Last Admin: 09/08/24 08:23 Dose: Not Given Documented By: ANGELIA Non-Admin Reason: Patient Refused Naloxone HCl (Naloxone Hcl 0.4 Mg/Ml Vial) 0.04 mg IVPUSH Q5M PRN PRN Reason: Excessive sedation or RR < 8 Nystatin (Nystatin Oral Susp 500,000 Unit/5 Ml Oral.Susp) 100,000 unit PO DAILY PRN; Protocol PRN Reason: FLARES Nystatin (Nystatin Powder 15 Gm Bottle) 1 appl TOPICAL BID [facility]; Protocol Last Admin: 09/08/24 08:24 Dose: 1 appl Documented By: ANGELIA Omeprazole (Omeprazole 20 Mg Capsule.Dr) 20 mg PO DAILY@0630 [facility] Last Admin: 09/08/24 05:49 Dose: 20 mg Documented By: GEOVANNA Ondansetron HCl (Ondansetron Hcl 4 Mg/2 Ml Vial) 4 mg IVPUSH Q6H PRN PRN Reason: Nausea and Vomiting Last Admin: 09/06/24 21:38 Dose: 4 mg Documented By: TONYA Oxycodone HCl (Oxycodone Hcl Immed Release 5 Mg Tablet) 5 mg PO Q4H PRN PRN Reason: Pain, Moderate(Pain Scale 4-6) Last Admin: 09/08/24 01:23 Dose: 5 mg Documented By: GEOVANNA Comments: given per pt request down time Polyethylene Glycol (Polyethylene Glycol 3350 17 Gm Powd.Pack) 17 gm PO DAILY PRN PRN Reason: Constipation Last Admin: 09/07/24 17:10 Dose: 17 gm Documented By: POONAM Quetiapine Fumarate (Quetiapine Fumarate 50 Mg Tablet) 50 mg PO TID PRN PRN Reason: Anxiety Last Admin: 09/07/24 09:16 Dose: 50 mg Documented By: POONAM Sodium Chloride (0.9 % Sodium Chloride Flush 3 Ml Syringe) 3 ml IVFLUSH QSHIFT [facility] Last Admin: 09/08/24 08:22 Dose: 3 ml Documented By: ANGELIA Sodium Hypochlorite (Sodium Hypochlorite 0.5% 473 Ml Solution) 1 appl TOPICAL DAILY [facility] Last Admin: 09/08/24 08:25 Dose: Not Given Documented By: ANGELIA Non-Admin Reason: Patient Refused Topiramate (Topiramate 100 Mg Tablet) 100 mg PO BID [facility] Last Admin: 09/08/24 08:26 Dose: 100 mg Documented By: ANGELIA Trazodone HCl (Trazodone Hcl 100 Mg Tablet) 100 mg PO BEDTIME PRN PRN Reason: Insomnia Last Admin: 09/06/24 21:38 Dose: 100 mg Documented By: TONYA Vancomycin HCl (Vancomycin Hcl 125 Mg Capsule) 125 mg PO Q6H [facility] Stop: 09/20/24 10:59 Last Admin: 09/08/24 11:01 Dose: Not Given Documented By: ANGELIA Non-Louisa Reason: Off unit: Dialysis Warfarin Sodium (Warfarin Sodium 2.5 Mg Tablet) 2.5 mg PO DAILY@1800 [facility] Last Admin: 09/07/24 17:09 Dose: 2.5 mg Documented By: POONAM Labs 09/05/24 06:26 09/05/24 06:26 Assessment and Plan (1) Clostridium difficile infection: Status: Acute (2) Calciphylaxis: Status: Acute (3) 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 Pt was transferred to [facility] due to concern for right atrial mass associated dialysis catheter tip, and pt is now being transferred back to [facility] for continued treatment and STR placement. Acute C diff infection Stool studies positive for C diff on 08/18 no diarrhea overnight vancomycin 125 mg p.o. q.6 ID following; continue po Vancomycin through the course of IV Abx and 2 days after (september 20, 2024). She has been constipated for 3 days, to use Miralax today Flank wounds Wound care following s/p Debridement of bilateral buttock ulcers 09/05/24 refused dress changing on occasions Switched to Dilaudid IV for pain control, wean down as tolerated Infective endocarditis with ESBL Klebsiella Bacteremia complicated with with Right atrial mass TTE at [facility] showed severely dilated left atrium and left ventricle, LVEF 59%, adherent mass with mobile components of left atrium Culture positive for Klebsiella pneumoniae that has cephalosporin resistant gene positive and Pseudomonas Pt started on meropenem 500 mg IV, continue for total of 6 weeks to finish by September 18, 2024 Follow up outpatient with Cardiology at [facility] after discharge for repeat TTE and possible outpatient cardiac MRI Unable to discharge to home as HD center does not cover Meropenem new LUE swelling negative doppler, resolving Dilated CBD CT of abdomen and pelvis on 08/07 [facility] found distended gallbladder and distal CBD dilation of 1.1 cm and possible filling deficit and distal CBD concerning for choledocholithiasis GI recommendation was for MRCP at [facility], however pt refused Pt currently asymptomatic without RUQ abdominal pain, no nausea or vomiting; has been eating and drinking without issue Currently no indication for MRCP, Consider GI consult and repeat imaging if pt develops symptoms Bilateral lower extremity wounds 2/2 Calciphylaxis Continue sodium thiosulfate 25 g IV 3 times weekly after dialysis Wound care (see notes) Analgesics for pain management Pt has so far declined debridement General surgery consult, require extensive debridement with the assistance of Plastic surgery for wound coverage in his much more extensive that can be handled at our facility. Patient will be best treated at a tertiary care center with multimodality treatment including plastic surgery and inpatient wound care. ESRD On HD T/ Anemia of chronic disease S/p 3 units PRBCs at [facility] Retacrit 78888 units x3 weekly post dialysis Follow CBC, transfuse as necessary HTN Continue amlodipine and clonidine Antiphospholipid syndrome Continue warfarin Daily INR with target range 2-3 GERD Continue PPI Polysubstance use disorder Continue methadone 100 mg daily and 95 mg at bedtime Mood disorder Continue hydroxyzine, trazodone, topiramate, and bupropion Full Code DVT Prophylaxis: On Warfarin reason for continued hospitalization: awaiting bed, needs iv abx Quality Stroke Does the patient have a stroke diagnosis?: No VTE Prior VTE?: No VTE Risk Level:: Medical - moderate - high VTE Device Contraindication: Treatment Not Indicated VTE Drug Contraindication: N/A - Med Ordered
[2024-09-08] MEDS: hydrOXYzine HCL 50 MG TABLET PO (14:10)
[2024-09-08] MEDS: SODIUM THIOSULFATE IV ×2 (15:02→15:33)
[2024-09-08] MEDS: SODIUM CHLORIDE 0.9% IV ×2 (15:02→15:33)
[2024-09-08 15:11] VITALS: BP 141/86; PULSE 73; RESP 16; TEMP 36.9; O2SAT 99
[2024-09-08] MEDS: Epoetin Alfa-epbx 10,000 UNIT/ML VIAL 8000 UNIT IVPUSH (18:08)
[2024-09-08] MEDS: Meropenem 500 MG VIAL IV (18:09)
[2024-09-08] MEDS: Warfarin Sodium 2.5 MG TABLET PO (18:09)
[2024-09-08] MEDS: Heparin Sodium,Porcine 5,000 UNIT/ML VIAL 5000 UNIT INTRACATH (18:09)
--- NOTE | 2024-09-08 19:42 | P.PNNP_ITS ---
Subjective Subjective Date of Service: 09/08/24 Interval history: seen and evaluated this morning ; No other events Physical Exam 2 Vital Signs: Vital Signs: Last Vital Signs Temp 97.6 F 09/08/24 19:24 Pulse 60 09/08/24 19:24 Resp 18 09/08/24 19:24 BP 96/52 L 09/08/24 19:24 Pulse Ox 97 09/08/24 19:24 O2 Del Method Room Air 09/08/24 19:24 O2 Flow Rate 6 09/05/24 12:46 BMI result Body Mass Index 27.4 Const: General: comfortable and no acute distress O rientation/consciousness: patient oriented x3 HEENT: Head: Yes normocephalic Mouth: Normal oral and palatal mucosa present Eyes: EOM: EOMs intact bilaterally Neck: Neck: Yes supple Resp: Auscultation: clear to auscultation bilaterally Cardio: Jugular venous distension: no JVD Rate: regular rate GI: Palpation (GI): Soft to palpation Auscultation: normal bowel sounds Neuro: General: patient oriented x3 and moves all extremities Objective Data Labs 09/05/24 06:26 09/05/24 06:26 Microbiology Microbiology Results: Microbiology 08/18/24 19:34 Blood - Venous Blood Culture - Final No growth after 5 days. 08/18/24 19:34 Blood - Venous Blood Culture - Final No growth after 5 days. Procedures Date of Service Date of Service: 09/08/24 Assessment & Plan Assessment and plan (1) End stage renal disease on dialysis: Status: Acute (2) Calciphylaxis: Status: Acute Plan Usually gets HD on TTS Has a functioning HD catheter Na thiosulphate TTS as ordered- checked with pharmacist ( had been getting TTS) No Vitamin D , calcitriol or ca based binders Phos binders with meals Procrit [id number] U 3 times a week TTS Shall follow along Progress Note: Quality Stroke Does the patient have a stroke diagnosis?: No
[2024-09-08] MEDS: methADONE HCl 20 MG/2 ML ORAL.CONC 95 MG PO (19:49)
[2024-09-08] MEDS: Doxepin HCl 10 MG CAPSULE PO (19:50)
[2024-09-08] MEDS: Sennosides 8.6 MG TABLET PO (19:50)
[2024-09-08] MEDS: cloNIDine HCL 0.2 MG TABLET PO (19:50)
[2024-09-08] MEDS: Gabapentin 600 MG TABLET PO (19:50)
[2024-09-08 19:52] VITALS: BP 155/88; PULSE 87; RESP 16; TEMP 36.5; O2SAT 97
--- NOTE | 2024-09-08 23:11 | PC.NURSE ---
per previous rn, pt refused any dsg change. took over care at 1900 with pt cont to refuse dsg change at this time, per pt, not now later. will cont to monitor
[2024-09-09 02:45] VITALS: RESP 20
[2024-09-09] MEDS: HYDROmorphone HCl 1 MG/ML SYRINGE IVPUSH ×4 (06:09→22:42)
[2024-09-09] MEDS: vancomycin HCL 125 MG CAPSULE PO ×4 (06:09→22:42)
[2024-09-09] MEDS: Omeprazole 20 MG CAPSULE.DR PO (06:09)
[2024-09-09 07:20] VITALS: BP 162/95; PULSE 86; RESP 16; TEMP 37.3; O2SAT 94
[2024-09-09] MEDS: methADONE HCl 20 MG/2 ML ORAL.CONC 100 MG PO (08:35)
[2024-09-09] MEDS: Topiramate 100 MG TABLET PO ×2 (08:36→20:36)
[2024-09-09] MEDS: Gabapentin 600 MG TABLET PO ×2 (08:36→20:36)
[2024-09-09] MEDS: amLODIPine Besylate 10 MG TABLET PO (08:36)
[2024-09-09] MEDS: hydrOXYzine HCL 50 MG TABLET PO (08:36)
[2024-09-09] MEDS: Multivitamin TABLET 1 TAB PO (08:36)
[2024-09-09] MEDS: Cyanocobalamin (Vitamin B-12) 100 MCG TABLET PO (08:36)
[2024-09-09] MEDS: buPROPion HCl XL 300 MG TAB.ER.24H PO (08:36)
[2024-09-09] MEDS: oxyCODONE HCl Immed Release 5 MG TABLET PO ×4 (08:36→21:36)
[2024-09-09] MEDS: Sodium Hypochlorite 0.5% 473 ML SOLUTION 1 APPL TOPICAL (08:37)
[2024-09-09] MEDS: Nystatin Powder 15 GM BOTTLE 1 APPL TOPICAL ×2 (08:37→20:41)
--- NOTE | 2024-09-09 09:28 | P.PNIM_ITS ---
Subjective Subjective Date of Service: 09/09/24 Interval History: stable pain Physical Exam 2 Vital Signs: Vital Signs: Last Vital Signs Temp 99.1 F 09/09/24 07:20 Pulse 86 09/09/24 07:20 Resp 16 09/09/24 07:20 BP 162/95 H 09/09/24 07:20 Pulse Ox 94 09/09/24 07:20 O2 Del Method Room Air 09/09/24 07:20 O2 Flow Rate 6 09/05/24 12:46 BMI result Body Mass Index 27.4 Const: General: comfortable and no acute distress O rientation/consciousness: patient oriented x3 HEENT: Head: Yes normocephalic Mouth: Normal oral and palatal mucosa present Eyes: EOM: EOMs intact bilaterally Neck: Neck: Yes supple Resp: Auscultation: clear to auscultation bilaterally Cardio: Jugular venous distension: no JVD Rate: regular rate GI: Palpation (GI): Soft to palpation Auscultation: normal bowel sounds Neuro: General: patient oriented x3 and moves all extremities Objective Data Active Medications Acetaminophen (Acetaminophen 325 Mg Tablet) 650 mg PO Q6H PRN PRN Reason: Pain, Mild 1-3,fever,headache Last Admin: 09/08/24 18:22 Dose: 650 mg Documented By: ANGELIA Albuterol Sulfate (Albuterol Sulfate 90 Mcg 8 Gm Inhaler) 2 puff INHALE RQ4H PRN PRN Reason: Wheezing Amlodipine Besylate (Amlodipine Besylate 10 Mg Tablet) 10 mg PO DAILY [facility]; Protocol Last Admin: 09/09/24 08:36 Dose: 10 mg Documented By: PUNEET Bupropion HCl (Bupropion Hcl Xl 300 Mg Tab.Er.24h) 300 mg PO DAILY [facility] Last Admin: 09/09/24 08:36 Dose: 300 mg Documented By: PUNEET Clonidine HCl (Clonidine Hcl 0.2 Mg Tablet) 0.2 mg PO BEDTIME [facility]; Protocol Last Admin: 09/08/24 19:50 Dose: 0.2 mg Documented By: ANGELIA Cyanocobalamin (Cyanocobalamin (Vitamin B-12) 100 Mcg Tablet) 100 mcg PO DAILY [facility] Last Admin: 09/09/24 08:36 Dose: 100 mcg Documented By: PUNEET Doxepin HCl (Doxepin Hcl 10 Mg Capsule) 10 mg PO BEDTIME [facility] Last Admin: 09/08/24 19:50 Dose: 10 mg Documented By: ANGELIA Epoetin Devin-epbx (Epoetin Devin-Epbx 10,000 Unit/Ml Vial) 8,000 unit IVPUSH TuThSa@1800 [facility] Last Admin: 09/08/24 18:08 Dose: 8,000 unit Documented By: ANGELIA Gabapentin (Gabapentin 600 Mg Tablet) 600 mg PO BID [facility] Last Admin: 09/09/24 08:36 Dose: 600 mg Documented By: PUNEET Heparin Sodium (Porcine) (Heparin Sodium,Porcine 5,000 Unit/Ml Vial) 5,000 unit INTRACATH TUTHSA@1645 [facility] Last Admin: 09/08/24 18:09 Dose: 5,000 unit Documented By: ANGELIA Hydromorphone HCl (Hydromorphone Hcl 1 Mg/Ml Syringe) 1 mg IVPUSH Q4H PRN; Protocol PRN Reason: Pain, Severe (Pain Scale 7-10) Last Admin: 09/09/24 06:09 Dose: 1 mg Documented By: GEOVANNA Hydroxyzine HCl (Hydroxyzine Hcl 50 Mg Tablet) 50 mg PO TID PRN PRN Reason: Anxiety Last Admin: 09/09/24 08:36 Dose: 50 mg Documented By: PUNEET Sodium Thiosulfate 12.5 gm/ (Sodium Chloride) 200 mls @ 400 mls/hr IV Q30M [facility] Stop: 09/08/24 18:59 Magnesium Hydroxide (Milk Of Magnesia 30 Ml Oral.Susp) 30 ml PO DAILY PRN PRN Reason: Constipation Melatonin (Melatonin 3 Mg Tablet) 6 mg PO BEDTIME PRN PRN Reason: Insomnia Last Admin: 09/04/24 20:14 Dose: 6 mg Documented By: LILLY Meropenem (Meropenem 500 Mg Vial) 500 mg IV TuThSa@1800 [facility] Stop: 09/30/24 17:59 Last Admin: 09/08/24 18:09 Dose: 500 mg Documented By: ANGELIA Methadone HCl (Methadone Hcl 20 Mg/2 Ml Oral.Conc) 100 mg PO DAILY [facility] Last Admin: 09/09/24 08:35 Dose: 100 mg Documented By: PUNEET Co-signed By: GEETHA Methadone HCl (Methadone Hcl 20 Mg/2 Ml Oral.Conc) 95 mg PO BEDTIME [facility] Last Admin: 09/08/24 19:49 Dose: 95 mg Documented By: ANGELIA Co-signed By: ELI Multivitamins/Vitamin C (Multivitamin Tablet) 1 tab PO DAILY [facility] Last Admin: 09/09/24 08:36 Dose: 1 tab Documented By: PUNEET Naloxone HCl (Naloxone Hcl 0.4 Mg/Ml Vial) 0.04 mg IVPUSH Q5M PRN PRN Reason: Excessive sedation or RR < 8 Nystatin (Nystatin Oral Susp 500,000 Unit/5 Ml Oral.Susp) 100,000 unit PO DAILY PRN; Protocol PRN Reason: FLARES Nystatin (Nystatin Powder 15 Gm Bottle) 1 appl TOPICAL BID [facility]; Protocol Last Admin: 09/09/24 08:37 Dose: 1 appl Documented By: PUNEET Omeprazole (Omeprazole 20 Mg Capsule.Dr) 20 mg PO DAILY@0630 [facility] Last Admin: 09/09/24 06:09 Dose: 20 mg Documented By: GEOVANNA Ondansetron HCl (Ondansetron Hcl 4 Mg/2 Ml Vial) 4 mg IVPUSH Q6H PRN PRN Reason: Nausea and Vomiting Last Admin: 09/06/24 21:38 Dose: 4 mg Documented By: TONYA Oxycodone HCl (Oxycodone Hcl Immed Release 5 Mg Tablet) 5 mg PO Q4H PRN PRN Reason: Pain, Moderate(Pain Scale 4-6) Last Admin: 09/09/24 08:36 Dose: 5 mg Documented By: PUNEET Polyethylene Glycol (Polyethylene Glycol 3350 17 Gm Powd.Pack) 17 gm PO DAILY PRN PRN Reason: Constipation Last Admin: 09/07/24 17:10 Dose: 17 gm Documented By: POONAM Quetiapine Fumarate (Quetiapine Fumarate 50 Mg Tablet) 50 mg PO TID PRN PRN Reason: Anxiety Last Admin: 09/07/24 09:16 Dose: 50 mg Documented By: POONAM Senna (Sennosides 8.6 Mg Tablet) 8.6 mg PO BEDTIME [facility] Last Admin: 09/08/24 19:50 Dose: 8.6 mg Documented By: ANGELIA Sodium Chloride (0.9 % Sodium Chloride Flush 3 Ml Syringe) 3 ml IVFLUSH QSHIFT [facility] Last Admin: 09/09/24 07:25 Dose: Not Given Documented By: PUNEET Non-Admin Reason: Previously Administered Sodium Hypochlorite (Sodium Hypochlorite 0.5% 473 Ml Solution) 1 appl TOPICAL DAILY [facility] Last Admin: 09/09/24 08:37 Dose: 1 appl Documented By: PUNEET Topiramate (Topiramate 100 Mg Tablet) 100 mg PO BID [facility] Last Admin: 09/09/24 08:36 Dose: 100 mg Documented By: PUNEET Trazodone HCl (Trazodone Hcl 100 Mg Tablet) 100 mg PO BEDTIME PRN PRN Reason: Insomnia Last Admin: 09/06/24 21:38 Dose: 100 mg Documented By: KI-EVANS Vancomycin HCl (Vancomycin Hcl 125 Mg Capsule) 125 mg PO Q6H [facility] Stop: 09/20/24 10:59 Last Admin: 09/09/24 06:09 Dose: 125 mg Documented By: GEOVANNA Warfarin Sodium (Warfarin Sodium 2.5 Mg Tablet) 2.5 mg PO DAILY@1800 [facility] Last Admin: 09/08/24 18:09 Dose: 2.5 mg Documented By: ANGELIA Labs 09/05/24 06:26 09/05/24 06:26 Assessment and Plan (1) Clostridium difficile infection: Status: Acute (2) Calciphylaxis: Status: Acute (3) 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 Pt was transferred to [place] due to concern for right atrial mass associated dialysis catheter tip, and pt is now being transferred back to [facility] [place] for continued treatment and STR placement. Acute C diff infection Stool studies positive for C diff on 08/18 no diarrhea overnight vancomycin 125 mg p.o. q.6 ID following; continue po Vancomycin through the course of IV Abx and 2 days after (september 20, 2024). She has been constipated for 3 days, to use Miralax today Flank wounds Wound care following s/p Debridement of bilateral buttock ulcers 09/05/24 refused dress changing on occasion pain control, wean down as tolerated Infective endocarditis with ESBL Klebsiella Bacteremia complicated with with Right atrial mass TTE at [facility] showed severely dilated left atrium and left ventricle, LVEF 59%, adherent mass with mobile components of left atrium Culture positive for Klebsiella pneumoniae that has cephalosporin resistant gene positive and Pseudomonas Pt started on meropenem 500 mg IV, continue for total of 6 weeks to finish by September 18, 2024 Follow up outpatient with Cardiology at [facility] after discharge for repeat TTE and possible outpatient cardiac MRI Unable to discharge to home as HD center does not cover Meropenem Dilated CBD CT of abdomen and pelvis on 08/07 [facility] found distended gallbladder and distal CBD dilation of 1.1 cm and possible filling deficit and distal CBD concerning for choledocholithiasis GI recommendation was for MRCP at [facility], however pt refused Pt currently asymptomatic without RUQ abdominal pain, no nausea or vomiting; has been eating and drinking without issue Currently no indication for MRCP, Consider GI consult and repeat imaging if pt develops symptoms Bilateral lower extremity wounds 2/2 Calciphylaxis Continue sodium thiosulfate 25 g IV 3 times weekly after dialysis Wound care (see notes) Analgesics for pain management Pt has so far declined debridement General surgery consult, require extensive debridement with the assistance of Plastic surgery for wound coverage in his much more extensive that can be handled at our facility. Patient will be best treated at a tertiary care center with multimodality treatment including plastic surgery and inpatient wound care. ESRD On HD T//Thu Anemia of chronic disease S/p 3 units PRBCs at [facility] Retacrit 99156 units x3 weekly post dialysis Follow CBC, transfuse as necessary HTN Continue amlodipine and clonidine Antiphospholipid syndrome Continue warfarin Daily INR with target range 2-3 GERD Continue PPI Polysubstance use disorder Continue methadone 100 mg daily and 95 mg at bedtime Mood disorder Continue hydroxyzine, trazodone, topiramate, and bupropion Full Code DVT Prophylaxis: On Warfarin reason for continued hospitalization: awaiting bed, needs iv abx Quality Stroke Does the patient have a stroke diagnosis?: No VTE Prior VTE?: No VTE Risk Level:: Medical - moderate - high VTE Device Contraindication: Treatment Not Indicated VTE Drug Contraindication: N/A - Med Ordered
--- NOTE | 2024-09-09 10:58 | MHC.CLN ---
F/U DIET=REGULAR. ENSURE TID PER PATIENT PREFERENCE. SUPPLEMENT PROVIDES 1050 KCALS, 60 G PROTEIN. SKIN WITH STAGE II TO RIGHT ISCHIUM AND STAGE III TO LEFT ISCHIUM. SUPPLEMENT TO PROMOTE WOUND HEALING. CONTINUES WITH VARIABLE PO INTAKE. ADDING CHOCOLATE ICE CREAM LUNCH AND DINNER PER PT PREFERENCE. MONITOR PO INTAKE AND ENCOURAGE SUPPLEMENTS.
--- NOTE | 2024-09-09 11:54 | PC.NURSE ---
Addendum entered by Pedro Grimes RN 09/09/24 15:39: dressing changes performed this shift Original Note: pt refusing high fall precautions
--- NOTE | 2024-09-09 13:38 | P.PNNP_ITS ---
Subjective Subjective Date of Service: 09/09/24 Interval history: Stable pain. Due HD tomorrow Physical Exam 2 Vital Signs: Vital Signs: Last Vital Signs Temp 99.1 F 09/09/24 07:20 Pulse 86 09/09/24 07:20 Resp 16 09/09/24 07:20 BP 162/95 H 09/09/24 07:20 Pulse Ox 94 09/09/24 07:20 O2 Del Method Room Air 09/09/24 07:20 O2 Flow Rate 6 09/05/24 12:46 BMI result Body Mass Index 27.4 Const: General: no acute distress Orientation/consciousness: patient oriented x3 Eyes: EOM: EOMs intact bilaterally Resp: Auscultation: diminished lung sounds Cardio: Rate: regular rate GI: Palpation (GI): Soft to palpation Neuro: General: patient oriented x3 and moves all extremities Objective Data Labs 09/05/24 06:26 09/05/24 06:26 Microbiology Microbiology Results: Microbiology 08/18/24 19:34 Blood - Venous Blood Culture - Final No growth after 5 days. 08/18/24 19:34 Blood - Venous Blood Culture - Final No growth after 5 days. Procedures Date of Service Date of Service: 09/09/24 Assessment & Plan Assessment and plan (1) Calciphylaxis: Status: Acute (2) End stage renal disease on dialysis: Status: Acute Plan Usually gets HD on TTS Has a functioning HD catheter Na thiosulphate TTS as ordered (checked with pharmacist) ( had been getting TTS) No Vitamin D , calcitriol or ca based binders Phos binders with meals Procrit 27592 U 3 times a week TTS Shall follow along Progress Note: Quality Stroke Does the patient have a stroke diagnosis?: No
[2024-09-09 15:36] VITALS: BP 132/85; PULSE 75; RESP 16; TEMP 36.8; O2SAT 98
--- NOTE | 2024-09-09 16:09 | MHC.CM.PN ---
PT STILL REQUIRING IV ABX UNTIL 09/18, NO BED OFFERS FOR THIS TO BE COMPLETED AT A SNF
[2024-09-09] MEDS: Acetaminophen 325 MG TABLET 650 MG PO (16:31)
[2024-09-09] MEDS: Warfarin Sodium 2.5 MG TABLET PO (17:47)
[2024-09-09 19:24] VITALS: BP 149/93; PULSE 82; RESP 17; TEMP 37.2; O2SAT 94
[2024-09-09] MEDS: methADONE HCl 20 MG/2 ML ORAL.CONC 95 MG PO (20:35)
[2024-09-09] MEDS: Doxepin HCl 10 MG CAPSULE PO (20:36)
[2024-09-09] MEDS: Sennosides 8.6 MG TABLET PO (20:36)
[2024-09-09] MEDS: cloNIDine HCL 0.2 MG TABLET PO (20:36)
[2024-09-09] MEDS: 0.9 % Sodium Chloride Flush 3 ML SYRINGE IVFLUSH (22:47)
[2024-09-09] MEDS: traZODone HCL 100 MG TABLET PO (22:49)
[2024-09-10 04:00] VITALS: BP 137/81; PULSE 73; RESP 18; TEMP 36.3; O2SAT 99
[2024-09-10] MEDS: Omeprazole 20 MG CAPSULE.DR PO (05:34)
[2024-09-10] MEDS: vancomycin HCL 125 MG CAPSULE PO ×4 (05:34→22:28)
[2024-09-10] MEDS: HYDROmorphone HCl 1 MG/ML SYRINGE IVPUSH ×5 (05:38→22:26)
--- NOTE | 2024-09-10 08:01 | P.PNIM_ITS ---
Subjective Subjective Date of Service: 09/10/24 Interval History: stable pain Physical Exam 2 Vital Signs: Vital Signs: Last Vital Signs Temp 97.4 F 09/10/24 04:00 Pulse 73 09/10/24 04:00 Resp 18 09/10/24 04:00 BP 137/81 09/10/24 04:00 Pulse Ox 99 09/10/24 04:00 O2 Del Method Room Air 09/10/24 04:00 O2 Flow Rate 6 09/05/24 12:46 BMI result Body Mass Index 27.4 Const: General: no acute distress Orientation/consciousness: patient oriented x3 Eyes: EOM: EOMs intact bilaterally Resp: Auscultation: diminished lung sounds Cardio: Rate: regular rate GI: Palpation (GI): Soft to palpation Neuro: General: patient oriented x3 and moves all extremities Objective Data Active Medications Acetaminophen (Acetaminophen 325 Mg Tablet) 650 mg PO Q6H PRN PRN Reason: Pain, Mild 1-3,fever,headache Last Admin: 09/09/24 16:31 Dose: 650 mg Documented By: PUNEET Comments: pt requested tylenol with oxy for pain Albuterol Sulfate (Albuterol Sulfate 90 Mcg 8 Gm Inhaler) 2 puff INHALE RQ4H PRN PRN Reason: Wheezing Amlodipine Besylate (Amlodipine Besylate 10 Mg Tablet) 10 mg PO DAILY [facility]; Protocol Last Admin: 09/09/24 08:36 Dose: 10 mg Documented By: PUNEET Bupropion HCl (Bupropion Hcl Xl 300 Mg Tab.Er.24h) 300 mg PO DAILY [facility] Last Admin: 09/09/24 08:36 Dose: 300 mg Documented By: PUNEET Clonidine HCl (Clonidine Hcl 0.2 Mg Tablet) 0.2 mg PO BEDTIME [facility]; Protocol Last Admin: 09/09/24 20:36 Dose: 0.2 mg Documented By: ONELIA Cyanocobalamin (Cyanocobalamin (Vitamin B-12) 100 Mcg Tablet) 100 mcg PO DAILY [facility] Last Admin: 09/09/24 08:36 Dose: 100 mcg Documented By: PUNEET Doxepin HCl (Doxepin Hcl 10 Mg Capsule) 10 mg PO BEDTIME [facility] Last Admin: 09/09/24 20:36 Dose: 10 mg Documented By: ONELIA Epoetin Devin-epbx (Epoetin Devin-Epbx 10,000 Unit/Ml Vial) 8,000 unit IVPUSH TuThSa@1800 [facility] Last Admin: 09/08/24 18:08 Dose: 8,000 unit Documented By: ANGELIA Gabapentin (Gabapentin 600 Mg Tablet) 600 mg PO BID [facility] Last Admin: 09/09/24 20:36 Dose: 600 mg Documented By: ONELIA Heparin Sodium (Porcine) (Heparin Sodium,Porcine 5,000 Unit/Ml Vial) 5,000 unit INTRACATH TUTHSA@1645 [facility] Last Admin: 09/08/24 18:09 Dose: 5,000 unit Documented By: ANGELIA Hydromorphone HCl (Hydromorphone Hcl 1 Mg/Ml Syringe) 1 mg IVPUSH Q4H PRN; Protocol PRN Reason: Pain, Severe (Pain Scale 7-10) Last Admin: 09/10/24 05:38 Dose: 1 mg Documented By: ONELIA Hydroxyzine HCl (Hydroxyzine Hcl 50 Mg Tablet) 50 mg PO TID PRN PRN Reason: Anxiety Last Admin: 09/09/24 08:36 Dose: 50 mg Documented By: PUNEET Sodium Thiosulfate 12.5 gm/ (Sodium Chloride) 200 mls @ 400 mls/hr IV Q30M [facility] Stop: 09/08/24 18:59 Magnesium Hydroxide (Milk Of Magnesia 30 Ml Oral.Susp) 30 ml PO DAILY PRN PRN Reason: Constipation Melatonin (Melatonin 3 Mg Tablet) 6 mg PO BEDTIME PRN PRN Reason: Insomnia Last Admin: 09/04/24 20:14 Dose: 6 mg Documented By: LILLY Meropenem (Meropenem 500 Mg Vial) 500 mg IV TuThSa@1800 [facility] Stop: 09/30/24 17:59 Last Admin: 09/08/24 18:09 Dose: 500 mg Documented By: ANGELIA Methadone HCl (Methadone Hcl 20 Mg/2 Ml Oral.Conc) 100 mg PO DAILY [facility] Last Admin: 09/09/24 08:35 Dose: 100 mg Documented By: PUNEET Co-signed By: GEETHA Methadone HCl (Methadone Hcl 20 Mg/2 Ml Oral.Conc) 95 mg PO BEDTIME [facility] Last Admin: 09/09/24 20:35 Dose: 95 mg Documented By: ONELIA Co-signed By: URIEL Multivitamins/Vitamin C (Multivitamin Tablet) 1 tab PO DAILY [facility] Last Admin: 09/09/24 08:36 Dose: 1 tab Documented By: PUNEET Naloxone HCl (Naloxone Hcl 0.4 Mg/Ml Vial) 0.04 mg IVPUSH Q5M PRN PRN Reason: Excessive sedation or RR < 8 Nystatin (Nystatin Oral Susp 500,000 Unit/5 Ml Oral.Susp) 100,000 unit PO DAILY PRN; Protocol PRN Reason: FLARES Nystatin (Nystatin Powder 15 Gm Bottle) 1 appl TOPICAL BID [facility]; Protocol Last Admin: 09/09/24 20:41 Dose: 1 appl Documented By: ONELIA Omeprazole (Omeprazole 20 Mg Capsule.Dr) 20 mg PO DAILY@0630 [facility] Last Admin: 09/10/24 05:34 Dose: 20 mg Documented By: ONELIA Ondansetron HCl (Ondansetron Hcl 4 Mg/2 Ml Vial) 4 mg IVPUSH Q6H PRN PRN Reason: Nausea and Vomiting Last Admin: 09/06/24 21:38 Dose: 4 mg Documented By: KI-EVANS Oxycodone HCl (Oxycodone Hcl Immed Release 5 Mg Tablet) 5 mg PO Q4H PRN PRN Reason: Pain, Moderate(Pain Scale 4-6) Last Admin: 09/09/24 21:36 Dose: 5 mg Documented By: ONELIA Polyethylene Glycol (Polyethylene Glycol 3350 17 Gm Powd.Pack) 17 gm PO DAILY PRN PRN Reason: Constipation Last Admin: 09/07/24 17:10 Dose: 17 gm Documented By: POONAM Quetiapine Fumarate (Quetiapine Fumarate 50 Mg Tablet) 50 mg PO TID PRN PRN Reason: Anxiety Last Admin: 09/07/24 09:16 Dose: 50 mg Documented By: POONAM Senna (Sennosides 8.6 Mg Tablet) 8.6 mg PO BEDTIME [facility] Last Admin: 09/09/24 20:36 Dose: 8.6 mg Documented By: ONELIA Sodium Chloride (0.9 % Sodium Chloride Flush 3 Ml Syringe) 3 ml IVFLUSH QSHIFT [facility] Last Admin: 09/09/24 22:47 Dose: 3 ml Documented By: ONELIA Sodium Hypochlorite (Sodium Hypochlorite 0.5% 473 Ml Solution) 1 appl TOPICAL DAILY [facility] Last Admin: 09/09/24 08:37 Dose: 1 appl Documented By: PUNEET Topiramate (Topiramate 100 Mg Tablet) 100 mg PO BID [facility] Last Admin: 09/09/24 20:36 Dose: 100 mg Documented By: ONELIA Trazodone HCl (Trazodone Hcl 100 Mg Tablet) 100 mg PO BEDTIME PRN PRN Reason: Insomnia Last Admin: 09/09/24 22:49 Dose: 100 mg Documented By: ONELIA Vancomycin HCl (Vancomycin Hcl 125 Mg Capsule) 125 mg PO Q6H [facility] Stop: 09/20/24 10:59 Last Admin: 09/10/24 05:34 Dose: 125 mg Documented By: ONELIA Warfarin Sodium (Warfarin Sodium 2.5 Mg Tablet) 2.5 mg PO DAILY@1800 [facility] Last Admin: 09/09/24 17:47 Dose: 2.5 mg Documented By: PUNEET Labs 09/05/24 06:26 09/05/24 06:26 Assessment and Plan (1) Clostridium difficile infection: Status: Acute (2) Calciphylaxis: Status: Acute (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 Pt was transferred to [place] due to concern for right atrial mass associated dialysis catheter tip, and pt is now being transferred back [place] [facility] [place] and STR placement. Acute C diff infection Stool studies positive for C diff on 08/18 no diarrhea overnight vancomycin 125 mg p.o. q.6 ID following; continue po Vancomycin through the course of IV Abx and 2 days after (september 20, 2024). She has been constipated for 3 days, to use Miralax today Flank wounds Wound care following s/p Debridement of bilateral buttock ulcers 09/05/24 refused dress changing on occasion pain control, wean down as tolerated Infective endocarditis with ESBL Klebsiella Bacteremia complicated with with Right atrial mass TTE at [place] showed severely dilated left atrium and left ventricle, LVEF 59%, adherent mass with mobile components of left atrium Culture positive for Klebsiella pneumoniae that has cephalosporin resistant gene positive and Pseudomonas Pt started on meropenem 500 mg IV, continue for total of 6 weeks to finish by September 18, 2024 Follow up outpatient with Cardiology at [facility] [place] after discharge for repeat TTE and possible outpatient cardiac MRI Unable to discharge to home as HD center does not cover Meropenem Dilated CBD CT of abdomen and pelvis on 08/07 [place] found distended gallbladder and distal CBD dilation of 1.1 cm and possible filling deficit and distal CBD concerning for choledocholithiasis GI recommendation was for MRCP at [place], however pt refused Pt currently asymptomatic without RUQ abdominal pain, no nausea or vomiting; has been eating and drinking without issue Currently no indication for MRCP, Consider GI consult and repeat imaging if pt develops symptoms Bilateral lower extremity wounds 2/2 Calciphylaxis Continue sodium thiosulfate 25 g IV 3 times weekly after dialysis Wound care (see notes) Analgesics for pain management Pt has so far declined debridement General surgery consult, require extensive debridement with the assistance of Plastic surgery for wound coverage in his much more extensive that can be handled at our facility. Patient will be best treated at a tertiary care center with multimodality treatment including plastic surgery and inpatient wound care. ESRD On HD T//Thu Anemia of chronic disease S/p 3 units PRBCs at [place] Retacrit 60914 units x3 weekly post dialysis Follow CBC, transfuse as necessary HTN Continue amlodipine and clonidine Antiphospholipid syndrome Continue warfarin Daily INR with target range 2-3 GERD Continue PPI Polysubstance use disorder Continue methadone 100 mg daily and 95 mg at bedtime Mood disorder Continue hydroxyzine, trazodone, topiramate, and bupropion Full Code DVT Prophylaxis: On Warfarin reason for continued hospitalization: awaiting bed, needs iv abx Quality Stroke Does the patient have a stroke diagnosis?: No VTE Prior VTE?: No VTE Risk Level:: Medical - moderate - high VTE Device Contraindication: Treatment Not Indicated VTE Drug Contraindication: N/A - Med Ordered
[2024-09-10 08:23] LABS: INTERNATIONAL NORM RATIO 2.5 (0.9-1.1); Prothrombin Time 28.8 SEC (10.9-12.4)
[2024-09-10] MEDS: Topiramate 100 MG TABLET PO ×2 (09:36→21:33)
[2024-09-10] MEDS: Gabapentin 600 MG TABLET PO ×2 (09:36→21:33)
[2024-09-10] MEDS: buPROPion HCl XL 300 MG TAB.ER.24H PO (09:36)
[2024-09-10] MEDS: Cyanocobalamin (Vitamin B-12) 100 MCG TABLET PO (09:36)
[2024-09-10] MEDS: Multivitamin TABLET 1 TAB PO (09:36)
[2024-09-10] MEDS: amLODIPine Besylate 10 MG TABLET PO (09:36)
[2024-09-10] MEDS: methADONE HCl 20 MG/2 ML ORAL.CONC 100 MG PO (09:37)
[2024-09-10] MEDS: 0.9 % Sodium Chloride Flush 3 ML SYRINGE IVFLUSH ×2 (09:37→16:15)
[2024-09-10] MEDS: Nystatin Powder 15 GM BOTTLE 1 APPL TOPICAL (09:41)
[2024-09-10] MEDS: hydrOXYzine HCL 50 MG TABLET PO ×2 (15:36→21:38)
[2024-09-10] MEDS: SODIUM CHLORIDE 0.9% IV ×2 (15:36→16:14)
[2024-09-10] MEDS: SODIUM THIOSULFATE IV ×2 (15:36→16:14)
[2024-09-10 15:48] VITALS: BP 133/83; PULSE 79; RESP 14; TEMP 37.3; O2SAT 99
[2024-09-10] MEDS: Heparin Sodium,Porcine 5,000 UNIT/ML VIAL 5000 UNIT INTRACATH (16:57)
[2024-09-10] MEDS: Warfarin Sodium 2.5 MG TABLET PO (17:42)
[2024-09-10] MEDS: Meropenem 500 MG VIAL IV (17:43)
[2024-09-10] MEDS: Epoetin Alfa-epbx 10,000 UNIT/ML VIAL 8000 UNIT IVPUSH (18:04)
[2024-09-10 19:30] VITALS: BP 147/87; PULSE 87; RESP 17; TEMP 37.2; O2SAT 92
[2024-09-10] MEDS: methADONE HCl 20 MG/2 ML ORAL.CONC 95 MG PO (21:30)
[2024-09-10] MEDS: cloNIDine HCL 0.2 MG TABLET PO (21:33)
[2024-09-10] MEDS: Doxepin HCl 10 MG CAPSULE PO (21:33)
[2024-09-10] MEDS: traZODone HCL 100 MG TABLET PO (21:38)
[2024-09-11] MEDS: HYDROmorphone HCl 1 MG/ML SYRINGE IVPUSH ×6 (02:41→22:36)
[2024-09-11 03:40] VITALS: BP 145/89; PULSE 84; RESP 20; TEMP 37.2; O2SAT 93
--- NOTE | 2024-09-11 05:35 | PC.NURSE ---
Pt crying out loud in pain, last PRN Dilaudid administered at 02:41, next dose due at 06:41. MD Whitehead was notified of the situation. Per MD Whitehead okay to give the next PRN Dilaudid earlier, see MAR. Will continue to monitor pt's pain level.
[2024-09-11] MEDS: vancomycin HCL 125 MG CAPSULE PO ×4 (05:38→22:39)
[2024-09-11] MEDS: Omeprazole 20 MG CAPSULE.DR PO (05:38)
--- NOTE | 2024-09-11 06:25 | PC.NURSE ---
Throughout the shift, pt was resistive to care, not allowing this RN and assigned UTILITY REPAIRER to freshen up or assess w/ her wound treatment. Pt was able to self repo in the bed alone, refusing any assistance from staff. This RN educated the pt the importance of taking care of her wounds by repositioning and hygiene care. Per Pt stated she will wait till morning to freshen up and for AM RN to change the dressings to her wounds. Will continue to monitor.
[2024-09-11 06:52] VITALS: BP 127/86; PULSE 83; RESP 16; TEMP 36.6; O2SAT 93
[2024-09-11 07:34] LABS: INTERNATIONAL NORM RATIO 2.3 (0.9-1.1); Prothrombin Time 26.6 SEC (10.9-12.4)
--- NOTE | 2024-09-11 09:13 | P.PNIM_ITS ---
Subjective Subjective Date of Service: 09/11/24 Interval History: stable pain Physical Exam 2 Vital Signs: Vital Signs: Last Vital Signs Temp 97.9 F 09/11/24 06:52 Pulse 83 09/11/24 06:52 Resp 16 09/11/24 06:52 BP 127/86 09/11/24 06:52 Pulse Ox 93 09/11/24 06:52 O2 Del Method Room Air 09/11/24 06:52 O2 Flow Rate 6 09/05/24 12:46 BMI result Body Mass Index 27.4 Const: General: no acute distress Orientation/consciousness: patient oriented x3 Eyes: EOM: EOMs intact bilaterally Resp: Auscultation: diminished lung sounds Cardio: Rate: regular rate GI: Palpation (GI): Soft to palpation Neuro: General: patient oriented x3 and moves all extremities Objective Data Active Medications Acetaminophen (Acetaminophen 325 Mg Tablet) 650 mg PO Q6H PRN PRN Reason: Pain, Mild 1-3,fever,headache Last Admin: 09/09/24 16:31 Dose: 650 mg Documented By: PUNEET Comments: pt requested tylenol with oxy for pain Albuterol Sulfate (Albuterol Sulfate 90 Mcg 8 Gm Inhaler) 2 puff INHALE RQ4H PRN PRN Reason: Wheezing Amlodipine Besylate (Amlodipine Besylate 10 Mg Tablet) 10 mg PO DAILY [facility]; Protocol Last Admin: 09/10/24 09:36 Dose: 10 mg Documented By: JUAN M Bupropion HCl (Bupropion Hcl Xl 300 Mg Tab.Er.24h) 300 mg PO DAILY [facility] Last Admin: 09/10/24 09:36 Dose: 300 mg Documented By: JUAN M Clonidine HCl (Clonidine Hcl 0.2 Mg Tablet) 0.2 mg PO BEDTIME [facility]; Protocol Last Admin: 09/10/24 21:33 Dose: 0.2 mg Documented By: GRANT Cyanocobalamin (Cyanocobalamin (Vitamin B-12) 100 Mcg Tablet) 100 mcg PO DAILY [facility] Last Admin: 09/10/24 09:36 Dose: 100 mcg Documented By: JUAN M Doxepin HCl (Doxepin Hcl 10 Mg Capsule) 10 mg PO BEDTIME [facility] Last Admin: 09/10/24 21:33 Dose: 10 mg Documented By: GRANT Epoetin Devin-epbx (Epoetin Devin-Epbx 10,000 Unit/Ml Vial) 8,000 unit IVPUSH TuThSa@1800 [facility] Last Admin: 09/10/24 18:04 Dose: 8,000 unit Documented By: JUAN M Gabapentin (Gabapentin 600 Mg Tablet) 600 mg PO BID [facility] Last Admin: 09/10/24 21:33 Dose: 600 mg Documented By: GRANT Heparin Sodium (Porcine) (Heparin Sodium,Porcine 5,000 Unit/Ml Vial) 5,000 unit INTRACATH TUTHSA@1645 [facility] Last Admin: 09/10/24 16:57 Dose: 5,000 unit Documented By: JUAN M Hydromorphone HCl (Hydromorphone Hcl 1 Mg/Ml Syringe) 1 mg IVPUSH Q4H PRN; Protocol PRN Reason: Pain, Severe (Pain Scale 7-10) Last Admin: 09/11/24 05:35 Dose: 1 mg Documented By: GRANT Comments: MD [place] notified and okay to give medication early Hydroxyzine HCl (Hydroxyzine Hcl 50 Mg Tablet) 50 mg PO TID PRN PRN Reason: Anxiety Last Admin: 09/10/24 21:38 Dose: 50 mg Documented By: GRANT Sodium Thiosulfate 12.5 gm/ (Sodium Chloride) 200 mls @ 400 mls/hr IV Q30M [facility] Stop: 09/08/24 18:59 Magnesium Hydroxide (Milk Of Magnesia 30 Ml Oral.Susp) 30 ml PO DAILY PRN PRN Reason: Constipation Melatonin (Melatonin 3 Mg Tablet) 6 mg PO BEDTIME PRN PRN Reason: Insomnia Last Admin: 09/04/24 20:14 Dose: 6 mg Documented By: LILLY Meropenem (Meropenem 500 Mg Vial) 500 mg IV TuThSa@1800 [facility] Stop: 09/30/24 17:59 Last Admin: 09/10/24 17:43 Dose: 500 mg Documented By: JUAN M Methadone HCl (Methadone Hcl 20 Mg/2 Ml Oral.Conc) 100 mg PO DAILY [facility] Last Admin: 09/10/24 09:37 Dose: 100 mg Documented By: JUAN M Co-signed By: RASHARD Methadone HCl (Methadone Hcl 20 Mg/2 Ml Oral.Conc) 95 mg PO BEDTIME [facility] Last Admin: 09/10/24 21:30 Dose: 95 mg Documented By: GRANT Co-signed By: GERRY Multivitamins/Vitamin C (Multivitamin Tablet) 1 tab PO DAILY [facility] Last Admin: 09/10/24 09:36 Dose: 1 tab Documented By: JUAN M Naloxone HCl (Naloxone Hcl 0.4 Mg/Ml Vial) 0.04 mg IVPUSH Q5M PRN PRN Reason: Excessive sedation or RR < 8 Nystatin (Nystatin Oral Susp 500,000 Unit/5 Ml Oral.Susp) 100,000 unit PO DAILY PRN; Protocol PRN Reason: FLARES Nystatin (Nystatin Powder 15 Gm Bottle) 1 appl TOPICAL BID [facility]; Protocol Last Admin: 09/10/24 22:04 Dose: Not Given Documented By: GRANT Non-Admin Reason: Patient Refused Omeprazole (Omeprazole 20 Mg Capsule.Dr) 20 mg PO DAILY@0630 [facility] Last Admin: 09/11/24 05:38 Dose: 20 mg Documented By: GRANT Ondansetron HCl (Ondansetron Hcl 4 Mg/2 Ml Vial) 4 mg IVPUSH Q6H PRN PRN Reason: Nausea and Vomiting Last Admin: 09/06/24 21:38 Dose: 4 mg Documented By: TONYA Polyethylene Glycol (Polyethylene Glycol 3350 17 Gm Powd.Pack) 17 gm PO DAILY PRN PRN Reason: Constipation Last Admin: 09/07/24 17:10 Dose: 17 gm Documented By: POONAM Quetiapine Fumarate (Quetiapine Fumarate 50 Mg Tablet) 50 mg PO TID PRN PRN Reason: Anxiety Last Admin: 09/07/24 09:16 Dose: 50 mg Documented By: POONAM Senna (Sennosides 8.6 Mg Tablet) 8.6 mg PO BEDTIME [facility] Last Admin: 09/10/24 22:04 Dose: Not Given Documented By: GRANT Non-Admin Reason: Patient Refused Sodium Chloride (0.9 % Sodium Chloride Flush 3 Ml Syringe) 3 ml IVFLUSH QSHIFT [facility] Last Admin: 09/11/24 00:43 Dose: Not Given Documented By: GRANT Non-Admin Reason: Previously Administered Sodium Hypochlorite (Sodium Hypochlorite 0.5% 473 Ml Solution) 1 appl TOPICAL DAILY [facility] Last Admin: 09/10/24 09:42 Dose: Not Given Documented By: JUAN M Non-Admin Reason: Patient Refused Topiramate (Topiramate 100 Mg Tablet) 100 mg PO BID [facility] Last Admin: 09/10/24 21:33 Dose: 100 mg Documented By: GRANT Trazodone HCl (Trazodone Hcl 100 Mg Tablet) 100 mg PO BEDTIME PRN PRN Reason: Insomnia Last Admin: 09/10/24 21:38 Dose: 100 mg Documented By: GRANT Vancomycin HCl (Vancomycin Hcl 125 Mg Capsule) 125 mg PO Q6H [facility] Stop: 09/20/24 10:59 Last Admin: 09/11/24 05:38 Dose: 125 mg Documented By: GRANT Warfarin Sodium (Warfarin Sodium 2.5 Mg Tablet) 2.5 mg PO DAILY@1800 [facility] Last Admin: 09/10/24 17:42 Dose: 2.5 mg Documented By: JUAN M Labs 09/05/24 06:26 09/05/24 06:26 Labs: Laboratory Results - last 24 hr 09/11/24 06:47 PT 26.6 H INR 2.3 H Assessment and Plan (1) Clostridium difficile infection: Status: Acute (2) Calciphylaxis: Status: Acute (3) 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 Pt was transferred to [place] due to concern for right atrial mass associated dialysis catheter tip, and pt is now being transferred back [place] [facility] [place] treatment and STR placement. Acute C diff infection Stool studies positive for C diff on 08/18 no diarrhea overnight vancomycin 125 mg p.o. q.6 ID following; continue po Vancomycin through the course of IV Abx and 2 days after (september 20, 2024). She has been constipated for 3 days, to use Miralax today Flank wounds Wound care following s/p Debridement of bilateral buttock ulcers 09/05/24 refused dress changing on occasion pain control, wean down as tolerated Infective endocarditis with ESBL Klebsiella Bacteremia complicated with with Right atrial mass TTE at [place] showed severely dilated left atrium and left ventricle, LVEF 59%, adherent mass with mobile components of left atrium Culture positive for Klebsiella pneumoniae that has cephalosporin resistant gene positive and Pseudomonas Pt started on meropenem 500 mg IV, continue for total of 6 weeks to finish by September 18, 2024 Follow up outpatient with Cardiology at [place] after discharge for repeat TTE and possible outpatient cardiac MRI Unable to discharge to home as HD center does not cover Meropenem Dilated CBD CT of abdomen and pelvis on 08/07 [place] found distended gallbladder and distal CBD dilation of 1.1 cm and possible filling deficit and distal CBD concerning for choledocholithiasis GI recommendation was for MRCP at [place], however pt refused Pt currently asymptomatic without RUQ abdominal pain, no nausea or vomiting; has been eating and drinking without issue Currently no indication for MRCP, Consider GI consult and repeat imaging if pt develops symptoms Bilateral lower extremity wounds 2/2 Calciphylaxis Continue sodium thiosulfate 25 g IV 3 times weekly after dialysis Wound care (see notes) Analgesics for pain management Pt has so far declined debridement General surgery consult, require extensive debridement with the assistance of Plastic surgery for wound coverage in his much more extensive that can be handled at our facility. Patient will be best treated at a tertiary care center with multimodality treatment including plastic surgery and inpatient wound care. ESRD On HD T//Thu Anemia of chronic disease S/p 3 units PRBCs at [place] Retacrit 51478 units x3 weekly post dialysis Follow CBC, transfuse as necessary HTN Continue amlodipine and clonidine Antiphospholipid syndrome Continue warfarin Daily INR with target range 2-3 GERD Continue PPI Polysubstance use disorder Continue methadone 100 mg daily and 95 mg at bedtime Mood disorder Continue hydroxyzine, trazodone, topiramate, and bupropion Full Code DVT Prophylaxis: On Warfarin reason for continued hospitalization: awaiting bed, needs iv abx Quality Stroke Does the patient have a stroke diagnosis?: No VTE Prior VTE?: No VTE Risk Level:: Medical - moderate - high VTE Device Contraindication: Treatment Not Indicated VTE Drug Contraindication: N/A - Med Ordered
[2024-09-11] MEDS: amLODIPine Besylate 10 MG TABLET PO (09:31)
[2024-09-11] MEDS: Topiramate 100 MG TABLET PO ×2 (09:31→21:45)
[2024-09-11] MEDS: methADONE HCl 20 MG/2 ML ORAL.CONC 100 MG PO (09:31)
[2024-09-11] MEDS: Multivitamin TABLET 1 TAB PO (09:31)
[2024-09-11] MEDS: Gabapentin 600 MG TABLET PO ×2 (09:31→21:44)
[2024-09-11] MEDS: Cyanocobalamin (Vitamin B-12) 100 MCG TABLET PO (09:31)
[2024-09-11] MEDS: buPROPion HCl XL 300 MG TAB.ER.24H PO (09:31)
[2024-09-11] MEDS: 0.9 % Sodium Chloride Flush 3 ML SYRINGE IVFLUSH ×2 (09:32→17:05)
[2024-09-11] MEDS: Nystatin Powder 15 GM BOTTLE 1 APPL TOPICAL (09:34)
[2024-09-11] MEDS: Sodium Hypochlorite 0.5% 473 ML SOLUTION 1 APPL TOPICAL (09:35)
[2024-09-11 15:22] VITALS: BP 156/95; PULSE 89; RESP 18; TEMP 37.2; O2SAT 94
[2024-09-11] MEDS: hydrOXYzine HCL 50 MG TABLET PO (17:04)
[2024-09-11] MEDS: Warfarin Sodium 2.5 MG TABLET PO (17:04)
[2024-09-11 19:40] VITALS: BP 143/71; PULSE 79; RESP 18; TEMP 37.2; O2SAT 94
[2024-09-11] MEDS: methADONE HCl 20 MG/2 ML ORAL.CONC 95 MG PO (21:41)
[2024-09-11] MEDS: cloNIDine HCL 0.2 MG TABLET PO (21:44)
[2024-09-11] MEDS: Doxepin HCl 10 MG CAPSULE PO (21:45)
[2024-09-11] MEDS: traZODone HCL 100 MG TABLET PO (21:45)
[2024-09-12 03:59] VITALS: BP 163/93; PULSE 80; RESP 18; TEMP 36.5; O2SAT 94
[2024-09-12] MEDS: HYDROmorphone HCl 1 MG/ML SYRINGE IVPUSH ×5 (04:03→21:20)
--- NOTE | 2024-09-12 04:06 | PC.NURSE ---
Pt resistive to care, yelling at this RN when educated on the importance of repositioning and how its helpful to treat her chronic wounds. Pt yelling at this RN leave me alone, shut up . Will continue to monitor.
[2024-09-12] MEDS: vancomycin HCL 125 MG CAPSULE PO ×4 (06:00→21:22)
[2024-09-12] MEDS: Omeprazole 20 MG CAPSULE.DR PO (06:00)
[2024-09-12 07:46] VITALS: BP 147/95; PULSE 69; RESP 12; TEMP 36.2; O2SAT 94
--- NOTE | 2024-09-12 08:35 | HO.PM.IMPN ---
Subjective Subjective Date of Service: 09/12/24 Interval History: stable pain Physical Exam Vital Signs: Vital Signs: Last Vital Signs Temp 97.2 F 09/12/24 07:46 Pulse 69 09/12/24 07:46 Resp 12 09/12/24 07:46 BP 147/95 H 09/12/24 07:46 Pulse Ox 94 09/12/24 07:46 O2 Del Method Room Air 09/12/24 07:46 O2 Flow Rate 6 09/05/24 12:46 BMI result Body Mass Index 27.4 Const: General: no acute distress Orientation/consciousness: patient oriented x3 Eyes: EOM: EOMs intact bilaterally Resp: Auscultation: diminished lung sounds Cardio: Rate: regular rate GI: Palpation (GI): Soft to palpation Neuro: General: patient oriented x3 and moves all extremities Objective Data Active Medications Acetaminophen (Acetaminophen 325 Mg Tablet) 650 mg PO Q6H PRN PRN Reason: Pain, Mild 1-3,fever,headache Last Admin: 09/09/24 16:31 Dose: 650 mg Documented By: PUNEET Comments: pt requested tylenol with oxy for pain Albuterol Sulfate (Albuterol Sulfate 90 Mcg 8 Gm Inhaler) 2 puff INHALE RQ4H PRN PRN Reason: Wheezing Amlodipine Besylate (Amlodipine Besylate 10 Mg Tablet) 10 mg PO DAILY [facility]; Protocol Last Admin: 09/11/24 09:31 Dose: 10 mg Documented By: JUAN M Bupropion HCl (Bupropion Hcl Xl 300 Mg Tab.Er.24h) 300 mg PO DAILY [facility] Last Admin: 09/11/24 09:31 Dose: 300 mg Documented By: JUAN M Clonidine HCl (Clonidine Hcl 0.2 Mg Tablet) 0.2 mg PO BEDTIME [facility]; Protocol Last Admin: 09/11/24 21:44 Dose: 0.2 mg Documented By: GRANT Cyanocobalamin (Cyanocobalamin (Vitamin B-12) 100 Mcg Tablet) 100 mcg PO DAILY [facility] Last Admin: 09/11/24 09:31 Dose: 100 mcg Documented By: JUAN M Doxepin HCl (Doxepin Hcl 10 Mg Capsule) 10 mg PO BEDTIME [facility] Last Admin: 09/11/24 21:45 Dose: 10 mg Documented By: GRANT Epoetin Devin-epbx (Epoetin Devin-Epbx 10,000 Unit/Ml Vial) 8,000 unit IVPUSH TuThSa@1800 [facility] Last Admin: 09/10/24 18:04 Dose: 8,000 unit Documented By: JUAN M Gabapentin (Gabapentin 600 Mg Tablet) 600 mg PO BID [facility] Last Admin: 09/11/24 21:44 Dose: 600 mg Documented By: GRANT Heparin Sodium (Porcine) (Heparin Sodium,Porcine 5,000 Unit/Ml Vial) 5,000 unit INTRACATH TUTHSA@1645 [facility] Last Admin: 09/10/24 16:57 Dose: 5,000 unit Documented By: JUAN M Hydromorphone HCl (Hydromorphone Hcl 1 Mg/Ml Syringe) 1 mg IVPUSH Q4H PRN; Protocol PRN Reason: Pain, Severe (Pain Scale 7-10) Last Admin: 09/12/24 04:03 Dose: 1 mg Documented By: GRANT Hydroxyzine HCl (Hydroxyzine Hcl 50 Mg Tablet) 50 mg PO TID PRN PRN Reason: Anxiety Last Admin: 09/11/24 17:04 Dose: 50 mg Documented By: JUAN M Sodium Thiosulfate 12.5 gm/ (Sodium Chloride) 200 mls @ 400 mls/hr IV Q30M [facility] Stop: 09/08/24 18:59 Magnesium Hydroxide (Milk Of Magnesia 30 Ml Oral.Susp) 30 ml PO DAILY PRN PRN Reason: Constipation Melatonin (Melatonin 3 Mg Tablet) 6 mg PO BEDTIME PRN PRN Reason: Insomnia Last Admin: 09/04/24 20:14 Dose: 6 mg Documented By: LILLY Meropenem (Meropenem 500 Mg Vial) 500 mg IV TuThSa@1800 [facility] Stop: 09/30/24 17:59 Last Admin: 09/10/24 17:43 Dose: 500 mg Documented By: JUAN M Methadone HCl (Methadone Hcl 20 Mg/2 Ml Oral.Conc) 100 mg PO DAILY [facility] Last Admin: 09/11/24 09:31 Dose: 100 mg Documented By: JUAN M Co-signed By: RONN Methadone HCl (Methadone Hcl 20 Mg/2 Ml Oral.Conc) 95 mg PO BEDTIME [facility] Last Admin: 09/11/24 21:41 Dose: 95 mg Documented By: GRANT Co-signed By: GEOVANNA Multivitamins/Vitamin C (Multivitamin Tablet) 1 tab PO DAILY [facility] Last Admin: 09/11/24 09:31 Dose: 1 tab Documented By: JUAN M Naloxone HCl (Naloxone Hcl 0.4 Mg/Ml Vial) 0.04 mg IVPUSH Q5M PRN PRN Reason: Excessive sedation or RR < 8 Nystatin (Nystatin Oral Susp 500,000 Unit/5 Ml Oral.Susp) 100,000 unit PO DAILY PRN; Protocol PRN Reason: FLARES Nystatin (Nystatin Powder 15 Gm Bottle) 1 appl TOPICAL BID [facility]; Protocol Last Admin: 09/11/24 21:47 Dose: Not Given Documented By: GRANT Non-Admin Reason: Patient Refused Omeprazole (Omeprazole 20 Mg Capsule.) 20 mg PO DAILY@0630 [facility] Last Admin: 09/12/24 06:00 Dose: 20 mg Documented By: GRANT Ondansetron HCl (Ondansetron Hcl 4 Mg/2 Ml Vial) 4 mg IVPUSH Q6H PRN PRN Reason: Nausea and Vomiting Last Admin: 09/06/24 21:38 Dose: 4 mg Documented By: KI-EVANS Polyethylene Glycol (Polyethylene Glycol 3350 17 Gm Powd.Pack) 17 gm PO DAILY PRN PRN Reason: Constipation Last Admin: 09/07/24 17:10 Dose: 17 gm Documented By: POONAM Quetiapine Fumarate (Quetiapine Fumarate 50 Mg Tablet) 50 mg PO TID PRN PRN Reason: Anxiety Last Admin: 09/07/24 09:16 Dose: 50 mg Documented By: POONAM Senna (Sennosides 8.6 Mg Tablet) 8.6 mg PO BEDTIME [facility] Last Admin: 09/11/24 21:47 Dose: Not Given Documented By: GRANT Non-Admin Reason: Patient Refused Sodium Chloride (0.9 % Sodium Chloride Flush 3 Ml Syringe) 3 ml IVFLUSH QSHIFT [facility] Last Admin: 09/12/24 00:02 Dose: Not Given Documented By: GRANT Non-Admin Reason: Previously Administered Sodium Hypochlorite (Sodium Hypochlorite 0.5% 473 Ml Solution) 1 appl TOPICAL DAILY [facility] Last Admin: 09/11/24 09:35 Dose: 1 appl Documented By: JUAN M Topiramate (Topiramate 100 Mg Tablet) 100 mg PO BID [facility] Last Admin: 09/11/24 21:45 Dose: 100 mg Documented By: GRANT Trazodone HCl (Trazodone Hcl 100 Mg Tablet) 100 mg PO BEDTIME PRN PRN Reason: Insomnia Last Admin: 09/11/24 21:45 Dose: 100 mg Documented By: GRANT Vancomycin HCl (Vancomycin Hcl 125 Mg Capsule) 125 mg PO Q6H [facility] Last Admin: 09/12/24 06:00 Dose: 125 mg Documented By: GRANT Warfarin Sodium (Warfarin Sodium 2.5 Mg Tablet) 2.5 mg PO DAILY@1800 [facility] Last Admin: 09/11/24 17:04 Dose: 2.5 mg Documented By: JUAN M Labs 09/05/24 06:26 09/05/24 06:26 Assessment and Plan (1) Clostridium difficile infection: Status: Acute (2) Calciphylaxis: Status: Acute (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 Pt was transferred to [place] due to concern for right atrial mass associated dialysis catheter tip, and pt is now being transferred back [place] [facility] [place] and STR placement. Acute C diff infection Stool studies positive for C diff on 08/18 no diarrhea overnight vancomycin 125 mg p.o. q.6 ID following; continue po Vancomycin through the course of IV Abx and 2 days after (september 20, 2024). She has been constipated for 3 days, to use Miralax today Flank wounds Wound care following s/p Debridement of bilateral buttock ulcers 09/05/24 refused dress changing on occasion pain control, wean down as tolerated Infective endocarditis with ESBL Klebsiella Bacteremia complicated with with Right atrial mass TTE at [place] showed severely dilated left atrium and left ventricle, LVEF 59%, adherent mass with mobile components of left atrium Culture positive for Klebsiella pneumoniae that has cephalosporin resistant gene positive and Pseudomonas Pt started on meropenem 500 mg IV, continue for total of 6 weeks to finish by September 18, 2024 Follow up outpatient with Cardiology at [facility] after discharge for repeat TTE and possible outpatient cardiac MRI Unable to discharge to home as HD center does not cover Meropenem Dilated CBD CT of abdomen and pelvis on 08/07 [place] found distended gallbladder and distal CBD dilation of 1.1 cm and possible filling deficit and distal CBD concerning for choledocholithiasis GI recommendation was for MRCP at [place], however pt refused Pt currently asymptomatic without RUQ abdominal pain, no nausea or vomiting; has been eating and drinking without issue Currently no indication for MRCP, Consider GI consult and repeat imaging if pt develops symptoms Bilateral lower extremity wounds 2/2 Calciphylaxis Continue sodium thiosulfate 25 g IV 3 times weekly after dialysis Wound care (see notes) Analgesics for pain management Pt has so far declined debridement General surgery consult, require extensive debridement with the assistance of Plastic surgery for wound coverage in his much more extensive that can be handled at our facility. Patient will be best treated at a tertiary care center with multimodality treatment including plastic surgery and inpatient wound care. ESRD On HD T//Thu Anemia of chronic disease S/p 3 units PRBCs at [place] Retacrit 26858 units x3 weekly post dialysis Follow CBC, transfuse as necessary HTN Continue amlodipine and clonidine Antiphospholipid syndrome Continue warfarin Daily INR with target range 2-3 GERD Continue PPI Polysubstance use disorder Continue methadone 100 mg daily and 95 mg at bedtime Mood disorder Continue hydroxyzine, trazodone, topiramate, and bupropion Full Code DVT Prophylaxis: On Warfarin reason for continued hospitalization: awaiting bed, needs iv abx Quality Stroke Does the patient have a stroke diagnosis?: No VTE Prior VTE?: No VTE Risk Level:: Medical - moderate - high VTE Device Contraindication: Treatment Not Indicated VTE Drug Contraindication: N/A - Med Ordered
[2024-09-12] MEDS: Cyanocobalamin (Vitamin B-12) 100 MCG TABLET PO (08:42)
[2024-09-12] MEDS: Topiramate 100 MG TABLET PO ×2 (08:42→20:34)
[2024-09-12] MEDS: amLODIPine Besylate 10 MG TABLET PO (08:42)
[2024-09-12] MEDS: buPROPion HCl XL 300 MG TAB.ER.24H PO (08:42)
[2024-09-12] MEDS: Gabapentin 600 MG TABLET PO ×2 (08:43→20:34)
[2024-09-12] MEDS: methADONE HCl 20 MG/2 ML ORAL.CONC 100 MG PO (08:43)
[2024-09-12] MEDS: Multivitamin TABLET 1 TAB PO (08:43)
[2024-09-12] MEDS: 0.9 % Sodium Chloride Flush 3 ML SYRINGE IVFLUSH ×2 (08:48→17:10)
--- NOTE | 2024-09-12 11:36 | P.PNNP_ITS ---
Subjective Subjective Date of Service: 09/12/24 Interval history: stable pain; Due HD tomorrow Physical Exam 2 Vital Signs: Vital Signs: Last Vital Signs Temp 97.2 F 09/12/24 07:46 Pulse 69 09/12/24 07:46 Resp 12 09/12/24 07:46 BP 147/95 H 09/12/24 07:46 Pulse Ox 94 09/12/24 07:46 O2 Del Method Room Air 09/12/24 07:46 O2 Flow Rate 6 09/05/24 12:46 BMI result Body Mass Index 27.4 Const: General: no acute distress Orientation/consciousness: patient oriented x3 Eyes: EOM: EOMs intact bilaterally Neck: Neck: Yes supple Resp: Auscultation: diminished lung sounds Cardio: Rate: regular rate GI: Palpation (GI): Soft to palpation Neuro: General: patient oriented x3 Objective Data Labs 09/05/24 06:26 09/05/24 06:26 Microbiology Microbiology Results: Microbiology 08/18/24 19:34 Blood - Venous Blood Culture - Final No growth after 5 days. 08/18/24 19:34 Blood - Venous Blood Culture - Final No growth after 5 days. Procedures Date of Service Date of Service: 09/12/24 Assessment & Plan Assessment and plan (1) End stage renal disease on dialysis: Status: Acute Plan Usually gets HD on TTS - due tomorrow Has a functioning HD catheter Na thiosulphate TTS as ordered (checked with pharmacist) ( had been getting TTS) No Vitamin D , calcitriol or ca based binders Phos binders with meals Procrit [id number] U 3 times a week TTS Shall follow along Progress Note: Quality Stroke Does the patient have a stroke diagnosis?: No
--- NOTE | 2024-09-12 11:55 | MHC.CLN ---
F/U DIET=REGULAR. ENSURE TID PER PATIENT PREFERENCE. SUPPLEMENT PROVIDES 1050 KCALS, 60 G PROTEIN. SKIN WITH STAGE II TO RIGHT ISCHIUM AND STAGE III TO LEFT ISCHIUM. SUPPLEMENT TO PROMOTE WOUND HEALING. VARIABLE PO INTAKE. PROVIDE CHOCOLATE ICE CREAM LUNCH AND DINNER PER PT PREFERENCE. LIBERALIZED DIET TO PROMOTE PO INTAKE AND SKIN INTEGRITY. CONTINUES WITH HEMODIALYSIS. MONITOR PO INTAKE AND ENCOURAGE SUPPLEMENTS.
[2024-09-12 16:01] VITALS: BP 128/83; PULSE 76; RESP 12; TEMP 36.7; O2SAT 94
[2024-09-12] MEDS: Warfarin Sodium 2.5 MG TABLET PO (17:10)
[2024-09-12 19:27] VITALS: BP 129/82; PULSE 75; RESP 16; TEMP 36.7; O2SAT 97
[2024-09-12] MEDS: methADONE HCl 20 MG/2 ML ORAL.CONC 95 MG PO (20:33)
[2024-09-12] MEDS: Doxepin HCl 10 MG CAPSULE PO (20:33)
[2024-09-12] MEDS: hydrOXYzine HCL 50 MG TABLET PO (20:34)
[2024-09-12] MEDS: cloNIDine HCL 0.2 MG TABLET PO (20:35)
[2024-09-12] MEDS: traZODone HCL 100 MG TABLET PO (20:36)
[2024-09-13] VITALS (8 sets, daily range): BP systolic 127–175; BP diastolic 77–100; PULSE 69–81; RESP 12–18; TEMP 36.5–37.2; O2SAT 92–96
[2024-09-13] MEDS: 0.9 % Sodium Chloride Flush 3 ML SYRINGE IVFLUSH ×3 (00:23→17:12)
[2024-09-13] MEDS: vancomycin HCL 125 MG CAPSULE PO ×3 (04:53→18:09)
[2024-09-13] MEDS: Omeprazole 20 MG CAPSULE.DR PO (05:51)
--- NOTE | 2024-09-13 08:20 | P.PNNP_ITS ---
Subjective Subjective Date of Service: 09/13/24 Interval history: Events noted Physical Exam 2 Vital Signs: Vital Signs: Last Vital Signs Temp 97.8 F 09/13/24 07:42 Pulse 72 09/13/24 07:42 Resp 12 09/13/24 07:42 BP 130/90 H 09/13/24 07:42 Pulse Ox 96 09/13/24 07:42 O2 Del Method Room Air 09/13/24 07:42 O2 Flow Rate 6 09/05/24 12:46 BMI result Body Mass Index 27.4 Objective Data Labs 09/14/24 12:01 09/14/24 12:01 Microbiology Microbiology Results: Microbiology 08/18/24 19:34 Blood - Venous Blood Culture - Final No growth after 5 days. 08/18/24 19:34 Blood - Venous Blood Culture - Final No growth after 5 days. Procedures Date of Service Date of Service: 09/15/24 Assessment & Plan Assessment and plan (1) End stage renal disease on dialysis: Status: Acute Plan Usually gets HD on TTS -HD today Has a functioning HD catheter Na thiosulphate TTS as ordered ( had been getting TTS) No Vitamin D , calcitriol or ca based binders Phos binders with meals Procrit [id number] U 3 times a week TTS Shall follow Time Spent With Patient Time: Total time managing care of this patient today ____ minutes. Progress Note: Quality Stroke Does the patient have a stroke diagnosis?: No
--- NOTE | 2024-09-13 08:43 | HO.PM.IMPN ---
Subjective Subjective Date of Service: 09/13/24 Interval History: stable pain Physical Exam Vital Signs: Vital Signs: Last Vital Signs Temp 97.8 F 09/13/24 07:42 Pulse 72 09/13/24 07:42 Resp 12 09/13/24 07:42 BP 130/90 H 09/13/24 07:42 Pulse Ox 96 09/13/24 07:42 O2 Del Method Room Air 09/13/24 07:42 O2 Flow Rate 6 09/05/24 12:46 BMI result Body Mass Index 27.4 Const: General: no acute distress Orientation/consciousness: patient oriented x3 Eyes: EOM: EOMs intact bilaterally Resp: Auscultation: diminished lung sounds Cardio: Rate: regular rate GI: Palpation (GI): Soft to palpation Neuro: General: patient oriented x3 and moves all extremities Objective Data Active Medications Acetaminophen (Acetaminophen 325 Mg Tablet) 650 mg PO Q6H PRN PRN Reason: Pain, Mild 1-3,fever,headache Last Admin: 09/09/24 16:31 Dose: 650 mg Documented By: PUNEET Comments: pt requested tylenol with oxy for pain Albuterol Sulfate (Albuterol Sulfate 90 Mcg 8 Gm Inhaler) 2 puff INHALE RQ4H PRN PRN Reason: Wheezing Amlodipine Besylate (Amlodipine Besylate 10 Mg Tablet) 10 mg PO DAILY [facility]; Protocol Last Admin: 09/12/24 08:42 Dose: 10 mg Documented By: JUAN M Bupropion HCl (Bupropion Hcl Xl 300 Mg Tab.Er.24h) 300 mg PO DAILY [facility] Last Admin: 09/12/24 08:42 Dose: 300 mg Documented By: JUAN M Clonidine HCl (Clonidine Hcl 0.2 Mg Tablet) 0.2 mg PO BEDTIME [facility]; Protocol Last Admin: 09/12/24 20:35 Dose: 0.2 mg Documented By: JOSUE Cyanocobalamin (Cyanocobalamin (Vitamin B-12) 100 Mcg Tablet) 100 mcg PO DAILY [facility] Last Admin: 09/12/24 08:42 Dose: 100 mcg Documented By: JUAN M Doxepin HCl (Doxepin Hcl 10 Mg Capsule) 10 mg PO BEDTIME [facility] Last Admin: 09/12/24 20:33 Dose: 10 mg Documented By: JOSUE Epoetin Devin-epbx (Epoetin Devin-Epbx 10,000 Unit/Ml Vial) 8,000 unit IVPUSH TuThSa@1800 [facility] Last Admin: 09/10/24 18:04 Dose: 8,000 unit Documented By: JUAN M Gabapentin (Gabapentin 600 Mg Tablet) 600 mg PO BID [facility] Last Admin: 09/12/24 20:34 Dose: 600 mg Documented By: JOSUE Heparin Sodium (Porcine) (Heparin Sodium,Porcine 5,000 Unit/Ml Vial) 5,000 unit INTRACATH TUTHSA@1645 [facility] Last Admin: 09/10/24 16:57 Dose: 5,000 unit Documented By: JUAN M Hydromorphone HCl (Hydromorphone Hcl 1 Mg/Ml Syringe) 1 mg IVPUSH Q4H PRN; Protocol PRN Reason: Pain, Severe (Pain Scale 7-10) Last Admin: 09/12/24 21:20 Dose: 1 mg Documented By: JOSUE Hydroxyzine HCl (Hydroxyzine Hcl 50 Mg Tablet) 50 mg PO TID PRN PRN Reason: Anxiety Last Admin: 09/12/24 20:34 Dose: 50 mg Documented By: JOSUE Sodium Thiosulfate 12.5 gm/ (Sodium Chloride) 200 mls @ 400 mls/hr IV Q30M [facility] Stop: 09/08/24 18:59 Magnesium Hydroxide (Milk Of Magnesia 30 Ml Oral.Susp) 30 ml PO DAILY PRN PRN Reason: Constipation Melatonin (Melatonin 3 Mg Tablet) 6 mg PO BEDTIME PRN PRN Reason: Insomnia Last Admin: 09/04/24 20:14 Dose: 6 mg Documented By: LILLY Meropenem (Meropenem 500 Mg Vial) 500 mg IV TuThSa@1800 [facility] Stop: 09/30/24 17:59 Last Admin: 09/10/24 17:43 Dose: 500 mg Documented By: JUAN M Methadone HCl (Methadone Hcl 20 Mg/2 Ml Oral.Conc) 100 mg PO DAILY [facility] Last Admin: 09/12/24 08:43 Dose: 100 mg Documented By: JUAN M Co-signed By: BARBARA Methadone HCl (Methadone Hcl 20 Mg/2 Ml Oral.Conc) 95 mg PO BEDTIME [facility] Last Admin: 09/12/24 20:33 Dose: 95 mg Documented By: JOSUE Co-signed By: ELI Multivitamins/Vitamin C (Multivitamin Tablet) 1 tab PO DAILY [facility] Last Admin: 09/12/24 08:43 Dose: 1 tab Documented By: JUAN M Naloxone HCl (Naloxone Hcl 0.4 Mg/Ml Vial) 0.04 mg IVPUSH Q5M PRN PRN Reason: Excessive sedation or RR < 8 Nystatin (Nystatin Oral Susp 500,000 Unit/5 Ml Oral.Susp) 100,000 unit PO DAILY PRN; Protocol PRN Reason: FLARES Nystatin (Nystatin Powder 15 Gm Bottle) 1 appl TOPICAL BID [facility]; Protocol Last Admin: 09/12/24 20:43 Dose: Not Given Documented By: JOSUE Non-Admin Reason: Patient Refused Omeprazole (Omeprazole 20 Mg Capsule.) 20 mg PO DAILY@0630 [facility] Last Admin: 09/13/24 05:51 Dose: 20 mg Documented By: ELI Ondansetron HCl (Ondansetron Hcl 4 Mg/2 Ml Vial) 4 mg IVPUSH Q6H PRN PRN Reason: Nausea and Vomiting Last Admin: 09/06/24 21:38 Dose: 4 mg Documented By: KI-EVANS Polyethylene Glycol (Polyethylene Glycol 3350 17 Gm Powd.Pack) 17 gm PO DAILY PRN PRN Reason: Constipation Last Admin: 09/07/24 17:10 Dose: 17 gm Documented By: POONAM Quetiapine Fumarate (Quetiapine Fumarate 50 Mg Tablet) 50 mg PO TID PRN PRN Reason: Anxiety Last Admin: 09/07/24 09:16 Dose: 50 mg Documented By: POONAM Senna (Sennosides 8.6 Mg Tablet) 8.6 mg PO BEDTIME [facility] Last Admin: 09/12/24 20:43 Dose: Not Given Documented By: JOSUE Non-Admin Reason: Patient Refused Sodium Chloride (0.9 % Sodium Chloride Flush 3 Ml Syringe) 3 ml IVFLUSH QSHIFT [facility] Last Admin: 09/13/24 00:23 Dose: 3 ml Documented By: JOSUE Sodium Hypochlorite (Sodium Hypochlorite 0.5% 473 Ml Solution) 1 appl TOPICAL DAILY [facility] Last Admin: 09/12/24 08:47 Dose: Not Given Documented By: JUAN M Non-Admin Reason: Patient Refused Topiramate (Topiramate 100 Mg Tablet) 100 mg PO BID [facility] Last Admin: 09/12/24 20:34 Dose: 100 mg Documented By: JOSUE Trazodone HCl (Trazodone Hcl 100 Mg Tablet) 100 mg PO BEDTIME PRN PRN Reason: Insomnia Last Admin: 09/12/24 20:36 Dose: 100 mg Documented By: JOSUE Vancomycin HCl (Vancomycin Hcl 125 Mg Capsule) 125 mg PO Q6H [facility] Last Admin: 09/13/24 04:53 Dose: 125 mg Documented By: JOSUE Warfarin Sodium (Warfarin Sodium 2.5 Mg Tablet) 2.5 mg PO DAILY@1800 [facility] Last Admin: 09/12/24 17:10 Dose: 2.5 mg Documented By: JUAN M Labs 09/05/24 06:26 09/05/24 06:26 Assessment and Plan (1) Clostridium difficile infection: Status: Acute (2) Calciphylaxis: Status: Acute (3) 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 Pt was transferred to [place] due to concern for right atrial mass associated dialysis catheter tip, and pt is now being transferred back to [facility] [place] for continued treatment and STR placement. Acute C diff infection Stool studies positive for C diff on 08/18 no diarrhea overnight vancomycin 125 mg p.o. q.6 ID following; continue po Vancomycin through the course of IV Abx and 2 days after (september 20, 2024). Flank wounds Wound care following s/p Debridement of bilateral buttock ulcers 09/05/24 refused dress changing on occasion pain control Infective endocarditis with ESBL Klebsiella Bacteremia complicated with with Right atrial mass TTE at [place] showed severely dilated left atrium and left ventricle, LVEF 59%, adherent mass with mobile components of left atrium Culture positive for Klebsiella pneumoniae that has cephalosporin resistant gene positive and Pseudomonas Pt started on meropenem 500 mg IV, continue for total of 6 weeks to finish by September 18, 2024 Follow up outpatient with Cardiology at [facility] after discharge for repeat TTE and possible outpatient cardiac MRI Unable to discharge to home as HD center does not cover Meropenem Dilated CBD CT of abdomen and pelvis on 08/07 [place] found distended gallbladder and distal CBD dilation of 1.1 cm and possible filling deficit and distal CBD concerning for choledocholithiasis GI recommendation was for MRCP at [place], however pt refused Pt currently asymptomatic without RUQ abdominal pain, no nausea or vomiting; has been eating and drinking without issue Currently no indication for MRCP, Consider GI consult and repeat imaging if pt develops symptoms Bilateral lower extremity wounds 2/2 Calciphylaxis Continue sodium thiosulfate 25 g IV 3 times weekly after dialysis Wound care (see notes) Analgesics for pain management Pt has so far declined debridement General surgery consult, require extensive debridement with the assistance of Plastic surgery for wound coverage in his much more extensive that can be handled at our facility. Patient will be best treated at a tertiary care center with multimodality treatment including plastic surgery and inpatient wound care. ESRD On HD T//Thu Anemia of chronic disease S/p 3 units PRBCs at [place] Retacrit 07875 units x3 weekly post dialysis Follow CBC, transfuse as necessary HTN Continue amlodipine and clonidine Antiphospholipid syndrome Continue warfarin Daily INR with target range 2-3 GERD Continue PPI Polysubstance use disorder Continue methadone 100 mg daily and 95 mg at bedtime Mood disorder Continue hydroxyzine, trazodone, topiramate, and bupropion Full Code DVT Prophylaxis: On Warfarin reason for continued hospitalization: awaiting bed, needs iv abx Quality Stroke Does the patient have a stroke diagnosis?: No VTE Prior VTE?: No VTE Risk Level:: Medical - moderate - high VTE Device Contraindication: Treatment Not Indicated VTE Drug Contraindication: N/A - Med Ordered
[2024-09-13] MEDS: HYDROmorphone HCl 1 MG/ML SYRINGE IVPUSH ×3 (08:44→18:09)
--- NOTE | 2024-09-13 09:09 | PC.NURSE ---
Pt. alert and oriented x4, resistive to care at times, refusing to call for assist when transferring, also refused chair and bed alarms. In dialysis this am, will give AM meds after dialysis including the methadone per pt.
[2024-09-13 10:18] LABS: Hematocrit 25.9 % (37.0-47.0); Hemoglobin 8.1 g/dl (12.0-16.0); Mean Corpuscular HGB Conc 31.3 g/dl (31.0-35.0); Mean Corpuscular Hemoglobin 27.7 pg (27.0-33.0); Mean Corpuscular Volume 88.7 fL (80.0-98.0); Red Blood Count 2.92 X10*6/uL (4.20-5.50); Red Cell Distribution Width 20.9 % (11.0-16.0); White Blood Count 11.7 X10*3/uL (4.8-10.8)
[2024-09-13 10:19] LABS: INTERNATIONAL NORM RATIO 2.5 (0.9-1.1); Mean Platelet Volume 10.5 fL (9.4-12.3); NRBC Pct Auto 0.4 /100WBC (0.0-0.2); Platelet Count 474 X10*3/uL (160-400); Prothrombin Time 28.7 SEC (10.9-12.4)
[2024-09-13 10:33] LABS: Anion Gap 17 (12-20); Blood Urea Nitrogen 48 mg/dL (9-16); Calcium 8.9 mg/dL (8.4-10.2); Carbon Dioxide 26 mmol/L (22-29); Chloride 98 mmol/L (96-108); Creatinine Clr Calc Pharmacy 22.6; Estimated Glomerular Filt Rate 14; Glucose Random 114 mg/dL (60-115); Potassium 4.2 mmol/L (3.3-5.1); Sodium 137 mmol/L (135-145)
[2024-09-13] MEDS: amLODIPine Besylate 10 MG TABLET PO (13:24)
[2024-09-13] MEDS: Multivitamin TABLET 1 TAB PO (13:25)
[2024-09-13] MEDS: Cyanocobalamin (Vitamin B-12) 100 MCG TABLET PO (13:25)
[2024-09-13] MEDS: buPROPion HCl XL 300 MG TAB.ER.24H PO (13:26)
[2024-09-13] MEDS: methADONE HCl 20 MG/2 ML ORAL.CONC 100 MG PO (13:31)
--- NOTE | 2024-09-13 14:17 | PC.NURSE ---
Pt. refused dressing change this shift, provider aware.
[2024-09-13] MEDS: ondansetron HCL 4 MG/2 ML VIAL IVPUSH (18:26)
[2024-09-13] MEDS: hydrOXYzine HCL 50 MG TABLET PO (18:26)
[2024-09-13] MEDS: Warfarin Sodium 2.5 MG TABLET PO (18:26)
[2024-09-13] MEDS: Meropenem 500 MG VIAL IV (18:41)
[2024-09-13] MEDS: methADONE HCl 20 MG/2 ML ORAL.CONC 95 MG PO (20:17)
[2024-09-13] MEDS: Gabapentin 600 MG TABLET PO (20:20)
[2024-09-13] MEDS: Doxepin HCl 10 MG CAPSULE PO (20:20)
[2024-09-13] MEDS: Topiramate 100 MG TABLET PO (20:20)
[2024-09-13] MEDS: Sennosides 8.6 MG TABLET PO (20:20)
[2024-09-13] MEDS: cloNIDine HCL 0.2 MG TABLET PO (20:20)
[2024-09-13] MEDS: Epoetin Alfa-epbx 10,000 UNIT/ML VIAL 8000 UNIT IVPUSH (20:21)
[2024-09-13] MEDS: SODIUM THIOSULFATE IV ×2 (20:25→21:06)
[2024-09-13] MEDS: SODIUM CHLORIDE 0.9% IV ×2 (20:25→21:06)
[2024-09-14] MEDS: 0.9 % Sodium Chloride Flush 3 ML SYRINGE IVFLUSH ×4 (00:01→20:35)
[2024-09-14] MEDS: HYDROmorphone HCl 1 MG/ML SYRINGE IVPUSH ×4 (03:33→16:01)
[2024-09-14 03:44] VITALS: BP 149/89; PULSE 73; RESP 17; TEMP 36.8; O2SAT 94
[2024-09-14] MEDS: vancomycin HCL 125 MG CAPSULE PO ×4 (05:49→22:41)
[2024-09-14] MEDS: Omeprazole 20 MG CAPSULE.DR PO (05:49)
[2024-09-14 07:51] VITALS: BP 126/81; PULSE 78; RESP 20; TEMP 36.6; O2SAT 94
[2024-09-14] MEDS: Multivitamin TABLET 1 TAB PO (07:51)
[2024-09-14] MEDS: Gabapentin 600 MG TABLET PO ×2 (07:51→20:34)
[2024-09-14] MEDS: buPROPion HCl XL 300 MG TAB.ER.24H PO (07:51)
[2024-09-14] MEDS: Cyanocobalamin (Vitamin B-12) 100 MCG TABLET PO (07:51)
[2024-09-14] MEDS: methADONE HCl 20 MG/2 ML ORAL.CONC 100 MG PO (07:51)
[2024-09-14] MEDS: Topiramate 100 MG TABLET PO ×2 (07:51→20:34)
[2024-09-14] MEDS: amLODIPine Besylate 10 MG TABLET PO (07:52)
[2024-09-14] MEDS: hydrOXYzine HCL 50 MG TABLET PO ×2 (08:36→16:01)
--- NOTE | 2024-09-14 11:57 | MHC.CLN ---
Addendum entered by Chelsy Trotter, TRAY 09/14/24 12:00: RD TO FOLLOW UP WEEKLY. Original Note: F/U DIET=REGULAR. ENSURE TID PER PATIENT PREFERENCE. SUPPLEMENT PROVIDES 1050 KCALS, 60 G PROTEIN. SKIN WITH STAGE II TO RIGHT ISCHIUM AND STAGE III TO LEFT ISCHIUM. SUPPLEMENT TO PROMOTE WOUND HEALING. CONTINUES WITH VARIABLE PO INTAKE 25-100%. LIBERALIZED DIET TO PROMOTE PO INTAKE AND SKIN INTEGRITY. CONTINUES WITH HEMODIALYSIS. MONITOR PO INTAKE AND ENCOURAGE SUPPLEMENTS.
[2024-09-14] MEDS: Nystatin Powder 15 GM BOTTLE 1 APPL TOPICAL ×2 (12:01→20:41)
[2024-09-14 12:04] LABS: Estimated Glomerular Filt Rate > 60
[2024-09-14 12:21] LABS: Creatinine Clr Calc Pharmacy 134.2
[2024-09-14 12:23] LABS: Hematocrit 24.8 % (37.0-47.0); Mean Corpuscular HGB Conc 32.3 g/dl (31.0-35.0); Mean Corpuscular Hemoglobin 28.2 pg (27.0-33.0); Mean Corpuscular Volume 87.3 fL (80.0-98.0); NRBC Pct Auto 0.5 /100WBC (0.0-0.2); PLT CLUMP 1; Red Blood Count 2.84 X10*6/uL (4.20-5.50); Red Cell Distribution Width 21.1 % (11.0-16.0); White Blood Count 13.1 X10*3/uL (4.8-10.8)
[2024-09-14 12:33] LABS: Anion Gap 26 (12-20); Blood Urea Nitrogen 44 mg/dL (9-16); Calcium 9.4 mg/dL (8.4-10.2); Carbon Dioxide 20 mmol/L (22-29); Chloride 97 mmol/L (96-108); Glucose Random 86 mg/dL (60-115); Sodium 138 mmol/L (135-145)
[2024-09-14 13:13] LABS: Platelet Count 397 X10*3/uL (160-400)
--- NOTE | 2024-09-14 14:04 | PC.NURSE ---
Patient peripheral IV outdated from 09/04. Patient resistive of new IV being placed, d/t being hard stick, this IV working, and having only few days left. Dr. Serrano made aware. Per okay to not change IV at this time, but continue to closely monitor IV site. Patient agreeable to plan.
--- NOTE | 2024-09-14 14:06 | PC.NURSE ---
Throughout shift, patient reminded importance to change positions. Per patient she is aware and will move as needed.
--- NOTE | 2024-09-14 14:13 | HO.PM.IMPN ---
Subjective Subjective Date of Service: 09/14/24 Interval History: seen and evaluated this morning reports pain at wounds sites getting up and moving around no other events Review of Systems Review of Systems: Yes all other systems are reviewed and are negative Physical Exam Vital Signs: Vital Signs: Last Vital Signs Temp 98 F 09/14/24 07:51 Pulse 78 09/14/24 07:51 Resp 20 09/14/24 07:51 BP 126/81 09/14/24 07:51 Pulse Ox 94 09/14/24 07:51 O2 Del Method Room Air 09/14/24 07:51 O2 Flow Rate 6 09/05/24 12:46 BMI result Body Mass Index 27.4 Const: Other: Constitutional : Awake, interactive, frail looking, not in distress Neck : Normal inspection, Supple Cardiovascular : RRR, no JVP, no lower extremity edema Respiratory : good bilateral air entry, no crackles, no wheezes or rhonchi Gastrointestinal: soft, lax, Normal bowel sounds, Non tender Skin : Warm, Dry, bilateral lower extremities wounds covered with dressing , bilateral flank wounds covered with dressing Neurological : Alert & oriented x3, No focal deficit Objective Data Active Medications Acetaminophen (Acetaminophen 325 Mg Tablet) 650 mg PO Q6H PRN PRN Reason: Pain, Mild 1-3,fever,headache Last Admin: 09/09/24 16:31 Dose: 650 mg Documented By: PUNEET Comments: pt requested tylenol with oxy for pain Albuterol Sulfate (Albuterol Sulfate 90 Mcg 8 Gm Inhaler) 2 puff INHALE RQ4H PRN PRN Reason: Wheezing Amlodipine Besylate (Amlodipine Besylate 10 Mg Tablet) 10 mg PO DAILY [facility]; Protocol Last Admin: 09/14/24 07:52 Dose: 10 mg Documented By: RUBIO Bupropion HCl (Bupropion Hcl Xl 300 Mg Tab.Er.24h) 300 mg PO DAILY [facility] Last Admin: 09/14/24 07:51 Dose: 300 mg Documented By: RUBIO Clonidine HCl (Clonidine Hcl 0.2 Mg Tablet) 0.2 mg PO BEDTIME [facility]; Protocol Last Admin: 09/13/24 20:20 Dose: 0.2 mg Documented By: VENECIA Cyanocobalamin (Cyanocobalamin (Vitamin B-12) 100 Mcg Tablet) 100 mcg PO DAILY [facility] Last Admin: 09/14/24 07:51 Dose: 100 mcg Documented By: RUBIO Doxepin HCl (Doxepin Hcl 10 Mg Capsule) 10 mg PO BEDTIME [facility] Last Admin: 09/13/24 20:20 Dose: 10 mg Documented By: VENECIA Epoetin Devin-epbx (Epoetin Devin-Epbx 10,000 Unit/Ml Vial) 8,000 unit IVPUSH TuThSa@1800 [facility] Last Admin: 09/13/24 20:21 Dose: 8,000 unit Documented By: VENECIA Gabapentin (Gabapentin 600 Mg Tablet) 600 mg PO BID [facility] Last Admin: 09/14/24 07:51 Dose: 600 mg Documented By: RUBIO Heparin Sodium (Porcine) (Heparin Sodium,Porcine 5,000 Unit/Ml Vial) 5,000 unit INTRACATH TUTHSA@1645 [facility] Last Admin: 09/13/24 19:14 Dose: Not Given Documented By: VENECIA Non-Admin Reason: given in dialysis Hydromorphone HCl (Hydromorphone Hcl 1 Mg/Ml Syringe) 1 mg IVPUSH Q4H PRN; Protocol PRN Reason: Pain, Severe (Pain Scale 7-10) Last Admin: 09/14/24 11:56 Dose: 1 mg Documented By: RUBIO Hydroxyzine HCl (Hydroxyzine Hcl 50 Mg Tablet) 50 mg PO TID PRN PRN Reason: Anxiety Last Admin: 09/14/24 08:36 Dose: 50 mg Documented By: RUBIO Sodium Thiosulfate 12.5 gm/ (Sodium Chloride) 200 mls @ 400 mls/hr IV Q30M [facility] Stop: 09/08/24 18:59 Magnesium Hydroxide (Milk Of Magnesia 30 Ml Oral.Susp) 30 ml PO DAILY PRN PRN Reason: Constipation Melatonin (Melatonin 3 Mg Tablet) 6 mg PO BEDTIME PRN PRN Reason: Insomnia Last Admin: 09/04/24 20:14 Dose: 6 mg Documented By: LILLY Meropenem (Meropenem 500 Mg Vial) 500 mg IV TuThSa@1800 [facility] Stop: 09/30/24 17:59 Last Admin: 09/13/24 18:41 Dose: 500 mg Documented By: VENECIA Methadone HCl (Methadone Hcl 20 Mg/2 Ml Oral.Conc) 100 mg PO DAILY [facility] Last Admin: 09/14/24 07:51 Dose: 100 mg Documented By: RUBIO Co-signed By: ESAU Methadone HCl (Methadone Hcl 20 Mg/2 Ml Oral.Conc) 95 mg PO BEDTIME [facility] Last Admin: 09/13/24 20:17 Dose: 95 mg Documented By: VENECIA Co-signed By: KI-EVANS Multivitamins/Vitamin C (Multivitamin Tablet) 1 tab PO DAILY [facility] Last Admin: 09/14/24 07:51 Dose: 1 tab Documented By: RUBIO Naloxone HCl (Naloxone Hcl 0.4 Mg/Ml Vial) 0.04 mg IVPUSH Q5M PRN PRN Reason: Excessive sedation or RR < 8 Nystatin (Nystatin Oral Susp 500,000 Unit/5 Ml Oral.Susp) 100,000 unit PO DAILY PRN; Protocol PRN Reason: FLARES Nystatin (Nystatin Powder 15 Gm Bottle) 1 appl TOPICAL BID [facility]; Protocol Last Admin: 09/14/24 12:01 Dose: 1 appl Documented By: RUBIO Omeprazole (Omeprazole 20 Mg Capsule.Dr) 20 mg PO DAILY@0630 [facility] Last Admin: 09/14/24 05:49 Dose: 20 mg Documented By: VENECIA Ondansetron HCl (Ondansetron Hcl 4 Mg/2 Ml Vial) 4 mg IVPUSH Q6H PRN PRN Reason: Nausea and Vomiting Last Admin: 09/13/24 18:26 Dose: 4 mg Documented By: VENECIA Polyethylene Glycol (Polyethylene Glycol 3350 17 Gm Powd.Pack) 17 gm PO DAILY PRN PRN Reason: Constipation Last Admin: 09/07/24 17:10 Dose: 17 gm Documented By: POONAM Quetiapine Fumarate (Quetiapine Fumarate 50 Mg Tablet) 50 mg PO TID PRN PRN Reason: Anxiety Last Admin: 09/07/24 09:16 Dose: 50 mg Documented By: POONAM Senna (Sennosides 8.6 Mg Tablet) 8.6 mg PO BEDTIME [facility] Last Admin: 09/13/24 20:20 Dose: 8.6 mg Documented By: VENECIA Sodium Chloride (0.9 % Sodium Chloride Flush 3 Ml Syringe) [facility] Last Admin: 09/14/24 07:57 Dose: 3 ml Documented By: RUBIO Sodium Hypochlorite (Sodium Hypochlorite 0.5% 473 Ml Solution) 1 appl TOPICAL DAILY [facility] Last Admin: 09/14/24 08:02 Dose: Not Given Documented By: RUBIO Non-Admin Reason: dressing changed prior shift Topiramate (Topiramate 100 Mg Tablet) 100 mg PO BID [facility] Last Admin: 09/14/24 07:51 Dose: 100 mg Documented By: RUBIO Trazodone HCl (Trazodone Hcl 100 Mg Tablet) 100 mg PO BEDTIME PRN PRN Reason: Insomnia Last Admin: 09/12/24 20:36 Dose: 100 mg Documented By: JOSUE Vancomycin HCl (Vancomycin Hcl 125 Mg Capsule) 125 mg PO Q6H [facility] Last Admin: 09/14/24 11:55 Dose: 125 mg Documented By: RUBIO Warfarin Sodium (Warfarin Sodium 2.5 Mg Tablet) 2.5 mg PO DAILY@1800 [facility] Last Admin: 09/13/24 18:26 Dose: 2.5 mg Documented By: VENECIA Labs 09/14/24 12:01 09/14/24 12:01 Labs: Laboratory Results - last 24 hr 09/14/24 12:01 MCV 87.3 MCH 28.2 MCHC 32.3 RDW 21.1 H Plt Count 397 MPV 11.0 Absolute Nucleated RBC 0.060 H Nucleated RBC % (auto) 0.5 H Anion Gap 26 H Estim Creat Clear Calc 134.2 Estimated GFR > 60 Random Glucose 86 Calcium 9.4 Assessment and Plan (1) Clostridium difficile infection: Status: Acute (2) Calciphylaxis: Status: Acute (3) 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 Pt was transferred to [place] due to concern for right atrial mass associated dialysis catheter tip, and pt is now being transferred back to [facility] for continued treatment and STR placement. Acute C diff infection Stool studies positive for C diff on 08/18 no diarrhea overnight vancomycin 125 mg p.o. q.6 ID following; continue po Vancomycin through the course of IV Abx and 2 days after (september 20, 2024). She has been constipated for 3 days, to use Miralax today Flank wounds Wound care following s/p Debridement of bilateral buttock ulcers 09/05/24 refused dress changing on occasions Switched to Dilaudid IV for pain control, wean down as tolerated Infective endocarditis with ESBL Klebsiella Bacteremia complicated with with Right atrial mass TTE at [place] showed severely dilated left atrium and left ventricle, LVEF 59%, adherent mass with mobile components of left atrium Culture positive for Klebsiella pneumoniae that has cephalosporin resistant gene positive and Pseudomonas Pt started on meropenem 500 mg IV, continue for total of 6 weeks to finish by September 18, 2024 Follow up outpatient with Cardiology at [facility] after discharge for repeat TTE and possible outpatient cardiac MRI Unable to discharge to home as HD center does not cover Meropenem new LUE swelling negative doppler, resolving Dilated CBD CT of abdomen and pelvis on 08/07 [place] found distended gallbladder and distal CBD dilation of 1.1 cm and possible filling deficit and distal CBD concerning for choledocholithiasis GI recommendation was for MRCP at [place], however pt refused Pt currently asymptomatic without RUQ abdominal pain, no nausea or vomiting; has been eating and drinking without issue Currently no indication for MRCP, Consider GI consult and repeat imaging if pt develops symptoms Bilateral lower extremity wounds 2/2 Calciphylaxis Continue sodium thiosulfate 25 g IV 3 times weekly after dialysis Wound care (see notes) Analgesics for pain management Pt has so far declined debridement General surgery consult, require extensive debridement with the assistance of Plastic surgery for wound coverage in his much more extensive that can be handled at our facility. Patient will be best treated at a tertiary care center with multimodality treatment including plastic surgery and inpatient wound care. ESRD On HD T/; to be switched to MWF upon discharge Anemia of chronic disease S/p 3 units PRBCs at [place] Retacrit 74292 units x3 weekly post dialysis Follow CBC, transfuse as necessary HTN Continue amlodipine and clonidine Antiphospholipid syndrome Continue warfarin Daily INR with target range 2-3 GERD Continue PPI Polysubstance use disorder Continue methadone 100 mg daily and 95 mg at bedtime Mood disorder Continue hydroxyzine, trazodone, topiramate, and bupropion Full Code DVT Prophylaxis: On Warfarin reason for continued hospitalization: awaiting bed, needs iv abx Quality Stroke Does the patient have a stroke diagnosis?: No VTE Prior VTE?: No VTE Risk Level:: Medical - moderate - high VTE Device Contraindication: Treatment Not Indicated VTE Drug Contraindication: N/A - Med Ordered
--- NOTE | 2024-09-14 15:02 | MHC.CM.PN ---
Discharge is anticipated Thursday09/19/24 after HD@ [facility]. Patient will discharge to home with services provided by [facility]. HD @ [facility] will resume, 09/21/24. HD days have changed to /Thu. Chair time is still pending. Clinical information has been sent to the facility. A Hep B Antigen test has been requested by the HD center. has ordered the lab. Patient states that she will contact [facility] to resume Methadone therapy. The last dose letter will be provided to the patient. DP home with resumption of services in place as well as [facility]. Patient will transport via [facility].
[2024-09-14 15:11] VITALS: BP 121/70; PULSE 82; RESP 18; TEMP 36.8; O2SAT 91
[2024-09-14] MEDS: Warfarin Sodium 2.5 MG TABLET PO (17:47)
[2024-09-14 19:18] VITALS: BP 115/76; PULSE 84; RESP 18; TEMP 36.9; O2SAT 93
[2024-09-14] MEDS: cloNIDine HCL 0.2 MG TABLET PO (20:34)
[2024-09-14] MEDS: methADONE HCl 20 MG/2 ML ORAL.CONC 95 MG PO (20:35)
[2024-09-14] MEDS: Sennosides 8.6 MG TABLET PO (20:35)
[2024-09-14] MEDS: Doxepin HCl 10 MG CAPSULE PO (20:35)
--- NOTE | 2024-09-14 20:57 | P.PNNP_ITS ---
Subjective Subjective Date of Service: 09/14/24 Interval history: seen and evaluated this morning. All recent data reviewed Physical Exam 2 Vital Signs: Vital Signs: Last Vital Signs Temp 98.4 F 09/14/24 19:18 Pulse 84 09/14/24 19:18 Resp 18 09/14/24 19:18 BP 115/76 09/14/24 19:18 Pulse Ox 93 09/14/24 19:18 O2 Del Method Room Air 09/14/24 19:18 O2 Flow Rate 6 09/05/24 12:46 BMI result Body Mass Index 27.4 Const: General: no acute distress Orientation/consciousness: patient oriented x3 Eyes: EOM: EOMs intact bilaterally Neck: Neck: Yes supple Resp: Auscultation: diminished lung sounds Cardio: Rate: regular rate GI: Palpation (GI): Soft to palpation Neuro: General: patient oriented x3 Objective Data Labs 09/14/24 12:01 09/14/24 12:01 Labs: Laboratory Results - last 24 hr 09/14/24 12:01 WBC 13.1 H RBC 2.84 L Hgb 8.0 L Hct 24.8 L MCV 87.3 MCH 28.2 MCHC 32.3 RDW 21.1 H Plt Count 397 MPV 11.0 Absolute Nucleated RBC 0.060 H Nucleated RBC % (auto) 0.5 H Sodium 138 Potassium 5.0 Chloride 97 Carbon Dioxide 20 L Anion Gap 26 H BUN 44 H Creatinine 0.60 Estim Creat Clear Calc 134.2 Estimated GFR > 60 Random Glucose 86 Calcium 9.4 Microbiology Microbiology Results: Microbiology 08/18/24 19:34 Blood - Venous Blood Culture - Final No growth after 5 days. 08/18/24 19:34 Blood - Venous Blood Culture - Final No growth after 5 days. Procedures Date of Service Date of Service: 09/14/24 Assessment & Plan Assessment and plan (1) End stage renal disease on dialysis: Status: Acute Plan Usually gets HD on TTS - due tomorrow Has a functioning HD catheter Na thiosulphate TTS as ordered (checked with pharmacist) ( had been getting TTS) No Vitamin D , calcitriol or ca based binders Phos binders with meals Procrit [id number] U 3 times a week TTS Shall follow along Progress Note: Quality Stroke Does the patient have a stroke diagnosis?: No
[2024-09-15] MEDS: HYDROmorphone HCl 1 MG/ML SYRINGE IVPUSH ×4 (01:51→16:33)
[2024-09-15 02:30] VITALS: BP 129/82; PULSE 75; RESP 18; TEMP 36.6; O2SAT 94
[2024-09-15] MEDS: vancomycin HCL 125 MG CAPSULE PO ×4 (05:48→22:54)
[2024-09-15] MEDS: Omeprazole 20 MG CAPSULE.DR PO (05:48)
[2024-09-15] MEDS: hydrOXYzine HCL 50 MG TABLET PO ×2 (05:52→19:52)
[2024-09-15 07:46] VITALS: BP 121/80; PULSE 76; RESP 17; TEMP 36.6; O2SAT 99
[2024-09-15] MEDS: Multivitamin TABLET 1 TAB PO (07:48)
[2024-09-15] MEDS: buPROPion HCl XL 300 MG TAB.ER.24H PO (07:48)
[2024-09-15] MEDS: Topiramate 100 MG TABLET PO ×2 (07:48→20:43)
[2024-09-15] MEDS: Cyanocobalamin (Vitamin B-12) 100 MCG TABLET PO (07:48)
[2024-09-15] MEDS: amLODIPine Besylate 10 MG TABLET PO (07:48)
[2024-09-15] MEDS: Gabapentin 600 MG TABLET PO ×2 (07:48→20:43)
[2024-09-15] MEDS: methADONE HCl 20 MG/2 ML ORAL.CONC 100 MG PO (07:49)
[2024-09-15] MEDS: 0.9 % Sodium Chloride Flush 3 ML SYRINGE IVFLUSH ×3 (07:51→20:43)
[2024-09-15] MEDS: Nystatin Powder 15 GM BOTTLE 1 APPL TOPICAL ×2 (07:52→20:55)
--- NOTE | 2024-09-15 09:10 | P.PNNP_ITS ---
Subjective Subjective Date of Service: 09/15/24 Interval history: seen and evaluated this morning. All recent data reviewed Physical Exam 2 Vital Signs: Vital Signs: Last Vital Signs Temp 97.9 F 09/15/24 07:46 Pulse 76 09/15/24 07:46 Resp 17 09/15/24 07:46 BP 121/80 09/15/24 07:46 Pulse Ox 99 09/15/24 07:46 O2 Del Method Room Air 09/15/24 07:46 O2 Flow Rate 6 09/05/24 12:46 BMI result Body Mass Index 27.4 Const: Other: Constitutional : Awake, interactive, frail looking, not in distress Neck : Normal inspection, Supple Cardiovascular : RRR, no JVP, no lower extremity edema Respiratory : good bilateral air entry, no crackles, no wheezes or rhonchi Gastrointestinal: soft, lax, Normal bowel sounds, Non tender Skin : Warm, Dry, bilateral lower extremities wounds covered with dressing , bilateral flank wounds covered with dressing Neurological : Alert & oriented x3, No focal deficit Objective Data Labs 09/14/24 12:01 09/15/24 09:06 Labs: Laboratory Results - last 24 hr 09/14/24 12:01 WBC 13.1 H RBC 2.84 L Hgb 8.0 L Hct 24.8 L MCV 87.3 MCH 28.2 MCHC 32.3 RDW 21.1 H Plt Count 397 MPV 11.0 Absolute Nucleated RBC 0.060 H Nucleated RBC % (auto) 0.5 H Sodium 138 Potassium 5.0 Chloride 97 Carbon Dioxide 20 L Anion Gap 26 H BUN 44 H Creatinine 0.60 Estim Creat Clear Calc 134.2 Estimated GFR > 60 Random Glucose 86 Calcium 9.4 Microbiology Microbiology Results: Microbiology 08/18/24 19:34 Blood - Venous Blood Culture - Final No growth after 5 days. 08/18/24 19:34 Blood - Venous Blood Culture - Final No growth after 5 days. Procedures Date of Service Date of Service: 09/15/24 Assessment & Plan Assessment and plan (1) End stage renal disease on dialysis: Status: Acute Plan Usually gets HD on TTS -HD today Has a functioning HD catheter Na thiosulphate TTS as ordered No Vitamin D , calcitriol or ca based binders Phos binders with meals Procrit [id number] U 3 times a week TTS Please have wound care re-evaluate her leg wounds Time Spent With Patient Time: Total time managing care of this patient today ____ minutes. Progress Note: Quality Stroke Does the patient have a stroke diagnosis?: No
[2024-09-15 09:53] LABS: INTERNATIONAL NORM RATIO 2.2 (0.9-1.1); Prothrombin Time 26.1 SEC (10.9-12.4)
[2024-09-15 10:23] LABS: Blood Urea Nitrogen 57 mg/dL (9-16)
[2024-09-15 10:26] LABS: HBS Num1 707.69 mIU/mL (0-7.99); HBc Num1 9.26 S/CO (0.00-0.79); HBsAGNum1 0.24 S/CO (0.00-0.99); Hepatitis B Surface Antigen Negative (Negative); ~HepC Num1 12.11 S/CO (0.00-0.79); ~Hepatitis B Surface Antibody REACTIVE (Nonreactive); ~Hepatitis C Antibody Reactive (Nonreactive)
[2024-09-15 10:28] LABS: Creatinine Clr Calc Pharmacy 18.2; Estimated Glomerular Filt Rate 11
[2024-09-15 11:42] LABS: HBc Num2 9.26 S/CO; Hepatitis B Core Antibody Reactive (Nonreactive)
--- NOTE | 2024-09-15 14:11 | HO.PM.IMPN ---
Subjective Subjective Date of Service: 09/15/24 Interval History: seen and evaluated this morning reports pain at wounds sites getting up and moving around no other events Review of Systems Review of Systems: Yes all other systems are reviewed and are negative Physical Exam Vital Signs: Vital Signs: Last Vital Signs Temp 97.9 F 09/15/24 07:46 Pulse 76 09/15/24 07:46 Resp 17 09/15/24 07:46 BP 121/80 09/15/24 07:46 Pulse Ox 99 09/15/24 07:46 O2 Del Method Room Air 09/15/24 07:46 O2 Flow Rate 6 09/05/24 12:46 BMI result Body Mass Index 27.4 Const: Other: Constitutional : Awake, interactive, frail looking, not in distress Neck : Normal inspection, Supple Cardiovascular : RRR, no JVP, no lower extremity edema Respiratory : good bilateral air entry, no crackles, no wheezes or rhonchi Gastrointestinal: soft, lax, Normal bowel sounds, Non tender Skin : Warm, Dry, bilateral lower extremities wounds covered with dressing , bilateral flank wounds covered with dressing Neurological : Alert & oriented x3, No focal deficit Objective Data Active Medications Acetaminophen (Acetaminophen 325 Mg Tablet) 650 mg PO Q6H PRN PRN Reason: Pain, Mild 1-3,fever,headache Last Admin: 09/09/24 16:31 Dose: 650 mg Documented By: PUNEET Comments: pt requested tylenol with oxy for pain Albuterol Sulfate (Albuterol Sulfate 90 Mcg 8 Gm Inhaler) 2 puff INHALE RQ4H PRN PRN Reason: Wheezing Amlodipine Besylate (Amlodipine Besylate 10 Mg Tablet) 10 mg PO DAILY [facility]; Protocol Last Admin: 09/15/24 07:48 Dose: 10 mg Documented By: PORSCHE Bupropion HCl (Bupropion Hcl Xl 300 Mg Tab.Er.24h) 300 mg PO DAILY [facility] Last Admin: 09/15/24 07:48 Dose: 300 mg Documented By: PORSCHE Clonidine HCl (Clonidine Hcl 0.2 Mg Tablet) 0.2 mg PO BEDTIME [facility]; Protocol Last Admin: 09/14/24 20:34 Dose: 0.2 mg Documented By: ANTONIETA Cyanocobalamin (Cyanocobalamin (Vitamin B-12) 100 Mcg Tablet) 100 mcg PO DAILY [facility] Last Admin: 09/15/24 07:48 Dose: 100 mcg Documented By: PORSCHE Doxepin HCl (Doxepin Hcl 10 Mg Capsule) 10 mg PO BEDTIME [facility] Last Admin: 09/14/24 20:35 Dose: 10 mg Documented By: ANTONIETA Epoetin Devin-epbx (Epoetin Devin-Epbx 10,000 Unit/Ml Vial) 8,000 unit IVPUSH TuThSa@1800 [facility] Last Admin: 09/13/24 20:21 Dose: 8,000 unit Documented By: VENECIA Gabapentin (Gabapentin 600 Mg Tablet) 600 mg PO BID [facility] Last Admin: 09/15/24 07:48 Dose: 600 mg Documented By: PORSCHE Heparin Sodium (Porcine) (Heparin Sodium,Porcine 5,000 Unit/Ml Vial) 5,000 unit INTRACATH TUTHSA@1645 [facility] Last Admin: 09/13/24 19:14 Dose: Not Given Documented By: VENECIA Non-Admin Reason: given in dialysis Hydromorphone HCl (Hydromorphone Hcl 1 Mg/Ml Syringe) 1 mg IVPUSH Q4H PRN; Protocol PRN Reason: Pain, Severe (Pain Scale 7-10) Last Admin: 09/15/24 10:17 Dose: 1 mg Documented By: PORSCHE Hydroxyzine HCl (Hydroxyzine Hcl 50 Mg Tablet) 50 mg PO TID PRN PRN Reason: Anxiety Last Admin: 09/15/24 05:52 Dose: 50 mg Documented By: ANTONIETA Sodium Thiosulfate 12.5 gm/ (Sodium Chloride) 200 mls @ 400 mls/hr IV Q30M [facility] Stop: 09/08/24 18:59 Sodium Thiosulfate 12.5 gm/ (Sodium Chloride) 200 mls @ 400 mls/hr IV Q30M [facility] Stop: 09/15/24 16:59 Magnesium Hydroxide (Milk Of Magnesia 30 Ml Oral.Susp) 30 ml PO DAILY PRN PRN Reason: Constipation Melatonin (Melatonin 3 Mg Tablet) 6 mg PO BEDTIME PRN PRN Reason: Insomnia Last Admin: 09/04/24 20:14 Dose: 6 mg Documented By: LILLY Meropenem (Meropenem 500 Mg Vial) 500 mg IV TuThSa@1800 [facility] Stop: 09/30/24 17:59 Last Admin: 09/13/24 18:41 Dose: 500 mg Documented By: VENECIA Methadone HCl (Methadone Hcl 20 Mg/2 Ml Oral.Conc) 100 mg PO DAILY [facility] Last Admin: 09/15/24 07:49 Dose: 100 mg Documented By: PORSCHE Co-signed By: RONN Methadone HCl (Methadone Hcl 20 Mg/2 Ml Oral.Conc) 95 mg PO BEDTIME [facility] Last Admin: 09/14/24 20:35 Dose: 95 mg Documented By: ANTONIETA Co-signed By: ODRISAngelica Multivitamins/Vitamin C (Multivitamin Tablet) 1 tab PO DAILY [facility] Last Admin: 09/15/24 07:48 Dose: 1 tab Documented By: PORSCHE Naloxone HCl (Naloxone Hcl 0.4 Mg/Ml Vial) 0.04 mg IVPUSH Q5M PRN PRN Reason: Excessive sedation or RR < 8 Nystatin (Nystatin Oral Susp 500,000 Unit/5 Ml Oral.Susp) 100,000 unit PO DAILY PRN; Protocol PRN Reason: FLARES Nystatin (Nystatin Powder 15 Gm Bottle) 1 appl TOPICAL BID [facility]; Protocol Last Admin: 09/15/24 07:52 Dose: 1 appl Documented By: PORSCHE Omeprazole (Omeprazole 20 Mg Capsule.Dr) 20 mg PO DAILY@0630 [facility] Last Admin: 09/15/24 05:48 Dose: 20 mg Documented By: ANTONIETA Ondansetron HCl (Ondansetron Hcl 4 Mg/2 Ml Vial) 4 mg IVPUSH Q6H PRN PRN Reason: Nausea and Vomiting Last Admin: 09/13/24 18:26 Dose: 4 mg Documented By: VENECIA Polyethylene Glycol (Polyethylene Glycol 3350 17 Gm Powd.Pack) 17 gm PO DAILY PRN PRN Reason: Constipation Last Admin: 09/07/24 17:10 Dose: 17 gm Documented By: PONOAM Quetiapine Fumarate (Quetiapine Fumarate 50 Mg Tablet) 50 mg PO TID PRN PRN Reason: Anxiety Last Admin: 09/07/24 09:16 Dose: 50 mg Documented By: POONAM Senna (Sennosides 8.6 Mg Tablet) 8.6 mg PO BEDTIME [facility] Last Admin: 09/14/24 20:35 Dose: 8.6 mg Documented By: ANTONIETA Sodium Chloride (0.9 % Sodium Chloride Flush 3 Ml Syringe) 3 ml IVFLUSH QSHIFT [facility] Last Admin: 09/15/24 13:00 Dose: 3 ml Documented By: PORSCHE Sodium Hypochlorite (Sodium Hypochlorite 0.5% 473 Ml Solution) 1 appl TOPICAL DAILY [facility] Last Admin: 09/14/24 08:02 Dose: Not Given Documented By: CHARTN Non-Admin Reason: dressing changed prior shift Topiramate (Topiramate 100 Mg Tablet) 100 mg PO BID [facility] Last Admin: 09/15/24 07:48 Dose: 100 mg Documented By: PORSCHE Trazodone HCl (Trazodone Hcl 100 Mg Tablet) 100 mg PO BEDTIME PRN PRN Reason: Insomnia Last Admin: 09/12/24 20:36 Dose: 100 mg Documented By: MCTR Vancomycin HCl (Vancomycin Hcl 125 Mg Capsule) 125 mg PO Q6H [facility] Last Admin: 09/15/24 13:00 Dose: 125 mg Documented By: PORSCHE Warfarin Sodium (Warfarin Sodium 2.5 Mg Tablet) 2.5 mg PO DAILY@1800 [facility] Last Admin: 09/14/24 17:47 Dose: 2.5 mg Documented By: DABAileen Labs 09/14/24 12:01 09/15/24 09:06 Labs: Laboratory Results - last 24 hr 09/15/24 09:06 PT 26.1 H INR 2.2 H Estim Creat Clear Calc 18.2 Estimated GFR 11 Hep Bs Antigen Negative Hep Bs Antibody REACTIVE Hep B Core Total Ab Reactive Hep B Core IgM Ab Cancelled Hepatitis C Ab (EIA) Reactive H Assessment and Plan (1) Clostridium difficile infection: Status: Acute (2) Calciphylaxis: Status: Acute (3) 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 Pt was transferred to [place] due to concern for right atrial mass associated dialysis catheter tip, and pt is now being transferred back to [facility] for continued treatment and STR placement. Acute C diff infection Stool studies positive for C diff on 08/18 no diarrhea overnight vancomycin 125 mg p.o. q.6 ID following; continue po Vancomycin through the course of IV Abx and 2 days after (september 20, 2024). She has been constipated for 3 days, to use Miralax today Flank wounds Wound care following s/p Debridement of bilateral buttock ulcers 09/05/24 refused dress changing on occasions Switched to Dilaudid IV for pain control, wean down as tolerated Infective endocarditis with ESBL Klebsiella Bacteremia complicated with with Right atrial mass TTE at [place] showed severely dilated left atrium and left ventricle, LVEF 59%, adherent mass with mobile components of left atrium Culture positive for Klebsiella pneumoniae that has cephalosporin resistant gene positive and Pseudomonas Pt started on meropenem 500 mg IV, continue for total of 6 weeks to finish by September 18, 2024 Follow up outpatient with Cardiology at [facility] after discharge for repeat TTE and possible outpatient cardiac MRI Unable to discharge to home as HD center does not cover Meropenem new LUE swelling negative doppler, resolving Dilated CBD CT of abdomen and pelvis on 08/07 [place] found distended gallbladder and distal CBD dilation of 1.1 cm and possible filling deficit and distal CBD concerning for choledocholithiasis GI recommendation was for MRCP at [place], however pt refused Pt currently asymptomatic without RUQ abdominal pain, no nausea or vomiting; has been eating and drinking without issue Currently no indication for MRCP, Consider GI consult and repeat imaging if pt develops symptoms Bilateral lower extremity wounds 2/2 Calciphylaxis Continue sodium thiosulfate 25 g IV 3 times weekly after dialysis Wound care (see notes) Analgesics for pain management Pt has so far declined debridement General surgery consult, require extensive debridement with the assistance of Plastic surgery for wound coverage in his much more extensive that can be handled at our facility. Patient will be best treated at a tertiary care center with multimodality treatment including plastic surgery and inpatient wound care. ESRD On HD T/; to be switched to MWF upon discharge Anemia of chronic disease S/p 3 units PRBCs at [place] Retacrit 34329 units x3 weekly post dialysis Follow CBC, transfuse as necessary HTN Continue amlodipine and clonidine Antiphospholipid syndrome Continue warfarin Daily INR with target range 2-3 GERD Continue PPI Polysubstance use disorder Continue methadone 100 mg daily and 95 mg at bedtime Mood disorder Continue hydroxyzine, trazodone, topiramate, and bupropion Full Code DVT Prophylaxis: On Warfarin reason for continued hospitalization: awaiting bed, needs iv abx Quality Stroke Does the patient have a stroke diagnosis?: No VTE Prior VTE?: No VTE Risk Level:: Medical - moderate - high VTE Device Contraindication: Treatment Not Indicated VTE Drug Contraindication: N/A - Med Ordered
[2024-09-15] MEDS: SODIUM THIOSULFATE IV ×2 (14:56→15:29)
[2024-09-15] MEDS: SODIUM CHLORIDE 0.9% IV ×2 (14:56→15:29)
[2024-09-15 15:27] VITALS: BP 132/77; PULSE 71; RESP 18; TEMP 37; O2SAT 99
[2024-09-15] MEDS: Warfarin Sodium 2.5 MG TABLET PO (17:45)
[2024-09-15] MEDS: Epoetin Alfa-epbx 10,000 UNIT/ML VIAL 8000 UNIT IVPUSH (19:41)
[2024-09-15] MEDS: Meropenem 500 MG VIAL IV (19:41)
[2024-09-15] MEDS: ondansetron HCL 4 MG/2 ML VIAL IVPUSH (19:52)
[2024-09-15 20:00] VITALS: BP 148/98; PULSE 76; RESP 17; TEMP 36.6; O2SAT 98
[2024-09-15] MEDS: cloNIDine HCL 0.2 MG TABLET PO (20:43)
[2024-09-15] MEDS: Sennosides 8.6 MG TABLET PO (20:43)
[2024-09-15] MEDS: methADONE HCl 20 MG/2 ML ORAL.CONC 95 MG PO (20:44)
[2024-09-15] MEDS: traZODone HCL 100 MG TABLET PO (20:50)
[2024-09-15] MEDS: Doxepin HCl 10 MG CAPSULE PO (20:55)
[2024-09-16 04:00] VITALS: BP 144/89; PULSE 75; RESP 16; TEMP 36.6; O2SAT 96
[2024-09-16] MEDS: Omeprazole 20 MG CAPSULE.DR PO (04:58)
[2024-09-16] MEDS: vancomycin HCL 125 MG CAPSULE PO ×4 (04:58→21:28)
[2024-09-16 08:00] VITALS: BP 144/91; PULSE 76; RESP 16; TEMP 36.6; O2SAT 95
[2024-09-16 08:02] VITALS: BP 144/89
[2024-09-16] MEDS: Multivitamin TABLET 1 TAB PO (08:02)
[2024-09-16] MEDS: Acetaminophen 325 MG TABLET 650 MG PO ×2 (08:02→17:35)
[2024-09-16] MEDS: amLODIPine Besylate 10 MG TABLET PO (08:02)
[2024-09-16] MEDS: 0.9 % Sodium Chloride Flush 3 ML SYRINGE IVFLUSH ×3 (08:03→21:27)
[2024-09-16] MEDS: Cyanocobalamin (Vitamin B-12) 100 MCG TABLET PO (08:03)
[2024-09-16] MEDS: HYDROmorphone HCl 0.5 MG/0.5 ML SYRINGE IVPUSH ×2 (08:03→19:44)
[2024-09-16] MEDS: Gabapentin 600 MG TABLET PO ×2 (08:03→21:23)
[2024-09-16] MEDS: Topiramate 100 MG TABLET PO ×2 (08:03→21:24)
[2024-09-16] MEDS: methADONE HCl 20 MG/2 ML ORAL.CONC 100 MG PO (08:03)
[2024-09-16] MEDS: buPROPion HCl XL 300 MG TAB.ER.24H PO (08:03)
[2024-09-16] MEDS: Nystatin Powder 15 GM BOTTLE 1 APPL TOPICAL ×2 (08:55→21:29)
--- NOTE | 2024-09-16 09:51 | HO.WOUND ---
Wound Consult: Follow up 43yr old female? admitted to [facility] on 08/18/24 - See progress notes and H&P for detailed history.? Chart review reveals the patient continues to refuse the dressing changes at times. She has been educated multiple times to the benefits of allowing proper wound care and the concerns for worsening if she continues to refuse. The provider was notified of her continued refusal. She refused me to perform dressing changes at this time due to her having just finished breakfast. Patient was educated on the importance of my assessment prior to d/c on Thursday. She was agreeable to me taking down the dressing and reapply and direct care team to change later in the day. Provider notified. The bilateral flank sites are overall improving post surgical debridement marbled with beefy red granulation tissue and thin yellow slough noted marbled. Given patient is set for d/c to home with VNA services I recommend topical dressing be switched to Durafiber AG and changed every other day. The Durafiber AG can stay in place for up to 5 days which may prove to be beneficial should she continue refusals at home. Overall she appears improved. The bilateral lower legs were not assessed - she did not allow assessment. Recommend continue dressing with goal to keep Black eschar dry and in place and follow up outpt. Patient is agreeable to out pt Wound Clinic Follow up. Patient continue to be on Agility Pulsate bed. Topical wound care recommendations: 1. Turn and Reposition every 2 hours and as needed for patient comfort.? Use pillows to support off loading positions. 2. Off Load all bony prominences with use of pillows.? 3. Monitor for incontinence and moisture control, use barrier creams when needed for prevention and treatment.Apply antifungal per provider order if needed. 4. Provide adequate and supplemental nutrition.? 5. When applicable maintain blood glucose levels per Providers order. Bilateral Lower Legs - Cleanse with NS moist gauze, dry well. Apply skin prep to periwound. Cover moist wounds with single layer of Xeroform followed by Gauze, ABD pad and wrap. Change every other day. May cover black dry eschar with dry gauze only. Goal is to keep black eschar dry and stable. Posterior Hip and Flank area - Off load pressure with Q2hr turns and pillows. Cleanse with NS moist gauze, Apply thick barrier to wound edges, apply durafiber AG to wound beds, cover with dry gauze, ABD pads. Change every other day. Bilateral Ischium and coccyx - Apply barrier cream to protect from Friction and moisture twice daily. Apply foam dressing if available outpt. Recommend follow up out patient Wound Clinic at [address] [place] [address] and to call for an appointment at time of discharge. [phone].? Details from previous assessment: Left Lower Leg - Eschar to both legs continues to be overall stable - small piece of xeroform applied to moist edges rest remains dry and covered with ABD pad. Continue with dressing every other day. Left Flank - improved wound bed remain with some adherent yellow slough - continue wet to moist dressing. Daily. Right Flank - improved wound bed remain with some adherent yellow slough - continue wet to moist dressing. Daily. Recommendations: 1. Turn and Reposition every 2 hours and as needed for patient comfort.? Use pillows or wedges to support off loading positions. 2. Off Load all bony prominences with use of pillows and heel boots if needed.? Apply Preventative foams where needed. ? 3. Monitor for incontinence and moisture control, use barrier creams when needed for prevention and treatment. 4. Provide adequate and supplemental nutrition.? 5. Continue low air loss mattress. 6. When applicable maintain blood glucose levels per Providers order. 7. Bilateral Lower Legs - Cleanse with NS moist gauze, dry well. Apply skin prep to periwound. Cover moist wounds with single layer of Xeroform followed by Gauze, ABD pad and wrap. Change every other day. May cover black dry eschar with dry gauze only. 8. Posterior Hip and Flank area - Off load pressure with Q2hr turns and pillows. Cleanse with NS moist gauze, Apply thick barrier to wound edges, apply NS moist gauze to wound beds, cover with dry gauze, ABD pads. Change daily. 9. Bilateral Ischium and coccyx - Apply skin prep, cover with foam dressing. Change every 5 days and PRN. 10. Perineal - Apply antifungal per provider order. Recommend follow up out patient Wound Clinic at [address] [place] [address] and to call for an appointment at time of discharge. [phone].? Details from previous assessments: Wound consult follow up for Bilateral Legs and Posterior hip flank sites.? Chart review reveals patient continues to refuse dressing changes often. The patient and I had a margy conversation regarding concerns with dressing refusals and infection. She reports she has not refused dressing changes and she recalls they are done often. Chart review does not support this. They appear they are often not completed due to patient refusal. The patient was educated on the importance of proper wound care and the concern for wound infection should the bilateral hip dressings not be changed. She reports the Dakins is not comfortable to her, we discussed the benefits to the wund beds to treat suspected pseudomonas invasion given the green blue drainage. We did discuss if she was switched to NS and it would increase her compliance it is an alternative we could explore - she reported she would prefer to stick with Dakins at this time. Bilateral lower legs can be extended to every other day - but they continue to be concerning over all. There are areas where the black eschar is moist and yellow slough with lifting edges. Continue xerorofm to moist areas and keep stable black areas dry with dry gauze dressing. Agility pulsate bed in use. No new topical recommendations made at this time. Some improvement noted to yellow moist slough. Rigt Flank - Little to no change noted. Right Lower Leg Recommendations: 1. Turn and Reposition every 2 hours and as needed for patient comfort.? Use pillows or wedges to support off loading positions. 2. Off Load all bony prominences with use of pillows and heel boots if needed.? Apply Preventative foams where needed. ? 3. Monitor for incontinence and moisture control, use barrier creams when needed for prevention and treatment. 4. Provide adequate and supplemental nutrition.? 5. Continue low air loss mattress. 6. When applicable maintain blood glucose levels per Providers order. 7. Bilateral Lower Legs - Cleanse with NS moist gauze, dry well. Apply skin prep to periwound. Cover moist wounds with single layer of Xeroform followed by Gauze, ABD pad and wrap. Change every other day. May cover black dry eschar with dry gauze only. 8. Posterior Hip and Flank area - Off load pressure with Q2hr turns and pillows. Cleanse with Dakins moist gauze, Apply thick barrier to wound edges, apply Dakins moist gauze to wound beds, cover with dry gauze, ABD pads. Change daily. 9. Bilateral Ischium and coccyx - Apply skin prep, cover with foam dressing. Change every 5 days and PRN. 10. Perineal - Apply antifungal per provider order. Recommend follow up out patient Wound Clinic at [address] [place] [id number] and to call for an appointment at time of discharge. [phone].? day. 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 TT to provider. Left Leg Right Leg Right Medial Leg - with small area of moist yellow slough Bilateral Legs Etiology: ?Unclear Etiology Wound Bed: mostly dry stable necrotic eschar small areas of moist lifted eschar reveals yellow slough Drainage / Odor: small amount of ten drainage Edges: ? irregular and rolled Rekha wound: ? swelling noted Pain: extreme pain reported Goals of Treatment: ? request for general surgery to assess - dry dressing vs xeroform to keep eschar stable and intact for autolytic debridement Right Side Left Side Posterior Hip Flank area Etiology: ?Unclear Etiology Wound Bed: various stages of necrotic slough Drainage / Odor: yellow corey green blue drainage indicative of pseudomonas Edges: ? irregular and atypical Rekha wound: ? No Induration or Warmth noted Pain: extreme pain reported Goals of Treatment: ?Dakins wet to moist dressing and request for general surgery to assess Recommendations: 1. Turn and Reposition every 2 hours and as needed for patient comfort.? Use pillows or wedges to support off loading positions. 2. Off Load all bony prominences with use of pillows and heel boots if needed.? Apply Preventative foams where needed. ? 3. Monitor for incontinence and moisture control, use barrier creams when needed for prevention and treatment. 4. Provide adequate and supplemental nutrition.? 5. Continue low air loss mattress. 6. When applicable maintain blood glucose levels per Providers order. 7. Bilateral Lower Legs and - Cleanse with Ns moist gauze, dry well. Apply skin prep to periwound. Cover wounds with single layer of Xeroform followed by Gauze, ABD pad and wrap. May use foam dressing to posterior hip/ flank to aid in pressure redistribution. 8. Posterior Hip and Flank area - Off load pressure with Q2hr turns and pillows. Cleanse with Dakins moist gauze, Apply skin barrier to wound edges, apply Dakins moist gauze to wound beds, cover with dry gauze, ABD pads. Change daily. 9. Bilateral Ischium and coccyx - Apply skin prep, cover with foam dressing. Change every 5 days and PRN. 10. Perineal - Apply antifungal per provider order. Recommend follow up out patient Wound Clinic at [address] [place] [id number] and to call for an appointment at time of discharge. [phone].? Re-consult wound care Nurse for wound deterioration or wound changes.
--- NOTE | 2024-09-16 11:04 | MHC.CM.PN ---
EMR REVIEWED AND PER MD ROUNDS, PT WILL DC AFTER HD ON TUESDAY 09/19. CM SPOKE WITH CHARGE NURSE IRMA AT [facility] IN [place]. NEW SCHEDULE IS CONFIRMED FOR , CHAIR TIME 6 AM, ARRIVAL 5: 45 AM. PT IS AWARE OF PLAN AND WILL BE SCHEDULING HER TRANSPORTATION TO [facility] FOR THURSDAY. HEP B SURFACE ANTIGEN RESULTS SENT TO HD FAX: [phone]. COMFORT + VNA UPDATED ON PLAN. CM WILL CONTINUE TO FOLLOW.
--- NOTE | 2024-09-16 12:37 | P.PNIM_ITS ---
Subjective Subjective Date of Service: 09/16/24 Interval History: seen and evaluated this morning improved pain at wounds sites getting up and moving around no other events Review of Systems Review of Systems: Yes all other systems are reviewed and are negative Physical Exam 2 Vital Signs: Vital Signs: Last Vital Signs Temp 97.9 F 09/16/24 08:00 Pulse 76 09/16/24 08:00 Resp 16 09/16/24 08:00 BP 144/89 H 09/16/24 08:02 Pulse Ox 95 09/16/24 08:00 O2 Del Method Room Air 09/16/24 08:00 O2 Flow Rate 6 09/05/24 12:46 BMI result Body Mass Index 27.4 Const: Other: Constitutional : Awake, interactive, frail looking, not in distress Neck : Normal inspection, Supple Cardiovascular : RRR, no JVP, no lower extremity edema Respiratory : good bilateral air entry, no crackles, no wheezes or rhonchi Gastrointestinal: soft, lax, Normal bowel sounds, Non tender Skin : Warm, Dry, bilateral lower extremities wounds covered with dressing , bilateral flank wounds covered with dressing Neurological : Alert & oriented x3, No focal deficit Objective Data Active Medications Acetaminophen (Acetaminophen 325 Mg Tablet) 650 mg PO QSHIFT [facility] Last Admin: 09/16/24 08:02 Dose: 650 mg Documented By: MONICA Albuterol Sulfate (Albuterol Sulfate 90 Mcg 8 Gm Inhaler) 2 puff INHALE RQ4H PRN PRN Reason: Wheezing Amlodipine Besylate (Amlodipine Besylate 10 Mg Tablet) 10 mg PO DAILY [facility]; Protocol Last Admin: 09/16/24 08:02 Dose: 10 mg Documented By: MONICA Bupropion HCl (Bupropion Hcl Xl 300 Mg Tab.Er.24h) 300 mg PO DAILY [facility] Last Admin: 09/16/24 08:03 Dose: 300 mg Documented By: MONICA Clonidine HCl (Clonidine Hcl 0.2 Mg Tablet) 0.2 mg PO BEDTIME [facility]; Protocol Last Admin: 09/15/24 20:43 Dose: 0.2 mg Documented By: ANTONIETA Cyanocobalamin (Cyanocobalamin (Vitamin B-12) 100 Mcg Tablet) 100 mcg PO DAILY [facility] Last Admin: 09/16/24 08:03 Dose: 100 mcg Documented By: MONICA Doxepin HCl (Doxepin Hcl 10 Mg Capsule) 10 mg PO BEDTIME [facility] Last Admin: 09/15/24 20:55 Dose: 10 mg Documented By: ANTONIETA Epoetin Devin-epbx (Epoetin Devin-Epbx 10,000 Unit/Ml Vial) 8,000 unit IVPUSH TuThSa@1800 [facility] Last Admin: 09/15/24 19:41 Dose: 8,000 unit Documented By: ANTONIETA Gabapentin (Gabapentin 600 Mg Tablet) 600 mg PO BID [facility] Last Admin: 09/16/24 08:03 Dose: 600 mg Documented By: MONICA Heparin Sodium (Porcine) (Heparin Sodium,Porcine 5,000 Unit/Ml Vial) 5,000 unit INTRACATH TUTHSA@1645 [facility] Last Admin: 09/15/24 15:41 Dose: Not Given Documented By: PORSCHE Non-Admin Reason: Given in Dialysis Hydromorphone HCl (Hydromorphone Hcl 0.5 Mg/0.5 Ml Syringe) 0.5 mg IVPUSH Q4H PRN; Protocol PRN Reason: Pain, Severe (Pain Scale 7-10) Last Admin: 09/16/24 08:03 Dose: 0.5 mg Documented By: MONICA Hydroxyzine HCl (Hydroxyzine Hcl 50 Mg Tablet) 50 mg PO TID PRN PRN Reason: Anxiety Last Admin: 09/15/24 19:52 Dose: 50 mg Documented By: ANTONIETA Magnesium Hydroxide (Milk Of Magnesia 30 Ml Oral.Susp) 30 ml PO DAILY PRN PRN Reason: Constipation Melatonin (Melatonin 3 Mg Tablet) 6 mg PO BEDTIME PRN PRN Reason: Insomnia Last Admin: 09/04/24 20:14 Dose: 6 mg Documented By: LILLY Meropenem (Meropenem 500 Mg Vial) 500 mg IV TuThSa@1800 [facility] Stop: 09/30/24 17:59 Last Admin: 09/15/24 19:41 Dose: 500 mg Documented By: ANTONIETA Methadone HCl (Methadone Hcl 20 Mg/2 Ml Oral.Conc) 100 mg PO DAILY [facility] Last Admin: 09/16/24 08:03 Dose: 100 mg Documented By: MONICA Co-signed By: RASHARD Methadone HCl (Methadone Hcl 20 Mg/2 Ml Oral.Conc) 95 mg PO BEDTIME [facility] Last Admin: 09/15/24 20:44 Dose: 95 mg Documented By: ANTONIETA Co-signed By: GRANT Multivitamins/Vitamin C (Multivitamin Tablet) 1 tab PO DAILY [facility] Last Admin: 09/16/24 08:02 Dose: 1 tab Documented By: MONICA Naloxone HCl (Naloxone Hcl 0.4 Mg/Ml Vial) 0.04 mg IVPUSH Q5M PRN PRN Reason: Excessive sedation or RR < 8 Nystatin (Nystatin Oral Susp 500,000 Unit/5 Ml Oral.Susp) 100,000 unit PO DAILY PRN; Protocol PRN Reason: FLARES Nystatin (Nystatin Powder 15 Gm Bottle) 1 appl TOPICAL BID [facility]; Protocol Last Admin: 09/16/24 08:55 Dose: 1 appl Documented By: MONICA Omeprazole (Omeprazole 20 Mg Capsule.Dr) 20 mg PO DAILY@0630 [facility] Last Admin: 09/16/24 04:58 Dose: 20 mg Documented By: ANTONIETA Ondansetron HCl (Ondansetron Hcl 4 Mg/2 Ml Vial) 4 mg IVPUSH Q6H PRN PRN Reason: Nausea and Vomiting Last Admin: 09/15/24 19:52 Dose: 4 mg Documented By: ANTONIETA Polyethylene Glycol (Polyethylene Glycol 3350 17 Gm Powd.Pack) 17 gm PO DAILY PRN PRN Reason: Constipation Last Admin: 09/07/24 17:10 Dose: 17 gm Documented By: POONAM Quetiapine Fumarate (Quetiapine Fumarate 50 Mg Tablet) 50 mg PO TID PRN PRN Reason: Anxiety Last Admin: 09/07/24 09:16 Dose: 50 mg Documented By: POONAM Senna (Sennosides 8.6 Mg Tablet) 8.6 mg PO BEDTIME [facility] Last Admin: 09/15/24 20:43 Dose: 8.6 mg Documented By: ANTONIETA Sodium Chloride (0.9 % Sodium Chloride Flush 3 Ml Syringe) 3 ml IVFLUSH QSHIFT [facility] Last Admin: 09/16/24 08:03 Dose: 3 ml Documented By: MONICA Sodium Hypochlorite (Sodium Hypochlorite 0.5% 473 Ml Solution) 1 appl TOPICAL DAILY [facility] Last Admin: 09/16/24 08:55 Dose: Not Given Documented By: MONICA Non-Admin Reason: Patient Refused Topiramate (Topiramate 100 Mg Tablet) 100 mg PO BID [facility] Last Admin: 09/16/24 08:03 Dose: 100 mg Documented By: MONICA Trazodone HCl (Trazodone Hcl 100 Mg Tablet) 100 mg PO BEDTIME PRN PRN Reason: Insomnia Last Admin: 09/15/24 20:50 Dose: 100 mg Documented By: ANTONIETA Vancomycin HCl (Vancomycin Hcl 125 Mg Capsule) 125 mg PO Q6H [facility] Last Admin: 09/16/24 10:47 Dose: 125 mg Documented By: MONICA Warfarin Sodium (Warfarin Sodium 2.5 Mg Tablet) 2.5 mg PO DAILY@1800 [facility] Last Admin: 09/15/24 17:45 Dose: 2.5 mg Documented By: DABA Labs 09/14/24 12:01 09/15/24 09:06 Assessment and Plan (1) Clostridium difficile infection: Status: Acute (2) Calciphylaxis: Status: Acute (3) 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 Pt was transferred to [place] due to concern for right atrial mass associated dialysis catheter tip, and pt is now being transferred back to [facility] for continued treatment and STR placement. Infective endocarditis with ESBL Klebsiella Bacteremia complicated with with Right atrial mass TTE at [place] showed severely dilated left atrium and left ventricle, LVEF 59%, adherent mass with mobile components of left atrium Culture positive for Klebsiella pneumoniae that has cephalosporin resistant gene positive and Pseudomonas Pt started on meropenem 500 mg IV, continue for total of 6 weeks to finish by September 18, 2024 Unable to discharge to home as HD center does not cover Meropenem Follow up outpatient with Cardiology at [facility] after discharge for repeat TTE and possible outpatient cardiac MRI Acute C diff infection Stool studies positive for C diff on 08/18 no diarrhea overnight vancomycin 125 mg p.o. q.6 ID following; continue po Vancomycin through the course of IV Abx and 2 days after (september 20, 2024). She has been constipated for 3 days, to use Miralax today Flank wounds Wound care following s/p Debridement of bilateral buttock ulcers 09/05/24 refused dress changing on occasions Switched to Dilaudid IV for pain control, wean down as tolerated new LUE swelling negative doppler, resolving Dilated CBD CT of abdomen and pelvis on 08/07 [place] found distended gallbladder and distal CBD dilation of 1.1 cm and possible filling deficit and distal CBD concerning for choledocholithiasis GI recommendation was for MRCP at [place], however pt refused Pt currently asymptomatic without RUQ abdominal pain, no nausea or vomiting; has been eating and drinking without issue Currently no indication for MRCP, Consider GI consult and repeat imaging if pt develops symptoms Bilateral lower extremity wounds 2/2 Calciphylaxis Continue sodium thiosulfate 25 g IV 3 times weekly after dialysis Wound care (see notes) Analgesics for pain management Pt has so far declined debridement General surgery consult, require extensive debridement with the assistance of Plastic surgery for wound coverage in his much more extensive that can be handled at our facility. Patient will be best treated at a tertiary care center with multimodality treatment including plastic surgery and inpatient wound care. ESRD On HD T/; to be switched to MWF upon discharge Anemia of chronic disease S/p 3 units PRBCs at [place] Retacrit 44946 units x3 weekly post dialysis Follow CBC, transfuse as necessary HTN Continue amlodipine and clonidine Antiphospholipid syndrome Continue warfarin Daily INR with target range 2-3 GERD Continue PPI Polysubstance use disorder Continue methadone 100 mg daily and 95 mg at bedtime Mood disorder Continue hydroxyzine, trazodone, topiramate, and bupropion Full Code DVT Prophylaxis: On Warfarin reason for continued hospitalization: iv abx Quality Stroke Does the patient have a stroke diagnosis?: No VTE Prior VTE?: No VTE Risk Level:: Medical - moderate - high VTE Device Contraindication: Treatment Not Indicated VTE Drug Contraindication: N/A - Med Ordered
[2024-09-16 15:10] VITALS: BP 129/82; PULSE 74; RESP 17; TEMP 36.2; O2SAT 94
--- NOTE | 2024-09-16 15:17 | PC.NURSE ---
Per wound nurse dressings to be changed today d/t change in dressing plan. Patient refused changing earlier this morning from wound nurse and stated she would allow for dressing chnage after lunch. This RN went to do dressing change at 1500 and patient allowed for leg dressings to be changed but still refusing to have hip/flank dressings changed.
[2024-09-16] MEDS: Warfarin Sodium 2.5 MG TABLET PO (17:37)
[2024-09-16 19:21] VITALS: BP 136/88; PULSE 74; RESP 18; TEMP 36.8; O2SAT 98
[2024-09-16] MEDS: Melatonin 3 MG TABLET 6 MG PO (21:22)
[2024-09-16] MEDS: methADONE HCl 20 MG/2 ML ORAL.CONC 95 MG PO (21:22)
[2024-09-16 21:23] VITALS: BP 136/88
[2024-09-16] MEDS: hydrOXYzine HCL 50 MG TABLET PO (21:23)
[2024-09-16] MEDS: Sennosides 8.6 MG TABLET PO (21:23)
[2024-09-16] MEDS: cloNIDine HCL 0.2 MG TABLET PO (21:23)
[2024-09-16] MEDS: traZODone HCL 100 MG TABLET PO (21:24)
[2024-09-16] MEDS: Doxepin HCl 10 MG CAPSULE PO (21:24)
--- NOTE | 2024-09-16 21:37 | P.PNNP_ITS ---
Subjective Subjective Date of Service: 09/16/24 Interval history: seen and evaluated this morning ;improved pain at wounds sites Physical Exam 2 Vital Signs: Vital Signs: Last Vital Signs Temp 98.3 F 09/16/24 19:21 Pulse 74 09/16/24 19:21 Resp 18 09/16/24 19:21 BP 136/88 09/16/24 21:23 Pulse Ox 98 09/16/24 19:21 O2 Del Method Room Air 09/16/24 19:21 O2 Flow Rate 6 09/05/24 12:46 BMI result Body Mass Index 27.4 Const: General: no acute distress Orientation/consciousness: patient oriented x3 Eyes: EOM: EOMs intact bilaterally Neck: Neck: Yes supple Resp: Auscultation: diminished lung sounds Cardio: Rate: regular rate GI: Palpation (GI): Soft to palpation Neuro: General: patient oriented x3 Objective Data Labs 09/14/24 12:01 09/15/24 09:06 Microbiology Microbiology Results: Microbiology 08/18/24 19:34 Blood - Venous Blood Culture - Final No growth after 5 days. 08/18/24 19:34 Blood - Venous Blood Culture - Final No growth after 5 days. Procedures Date of Service Date of Service: 09/16/24 Assessment & Plan Assessment and plan (1) End stage renal disease on dialysis: Status: Acute Plan Usually gets HD on TTS - due tomorrow Has a functioning HD catheter Na thiosulphate TTS as ordered (checked with pharmacist) ( had been getting TTS) No Vitamin D , calcitriol or ca based binders Phos binders with meals Procrit 13970 U 3 times a week TTS Shall follow along Progress Note: Quality Stroke Does the patient have a stroke diagnosis?: No
[2024-09-17 03:26] VITALS: BP 123/82; PULSE 74; RESP 16; TEMP 37.6; O2SAT 95
[2024-09-17] MEDS: vancomycin HCL 125 MG CAPSULE PO ×4 (06:00→21:51)
[2024-09-17] MEDS: Omeprazole 20 MG CAPSULE.DR PO (06:03)
[2024-09-17] MEDS: HYDROmorphone HCl 0.5 MG/0.5 ML SYRINGE IVPUSH ×4 (06:06→21:44)
[2024-09-17 07:23] VITALS: BP 136/84; PULSE 74; RESP 16; TEMP 37.2; O2SAT 93
[2024-09-17] MEDS: methADONE HCl 20 MG/2 ML ORAL.CONC 100 MG PO (08:18)
[2024-09-17] MEDS: Multivitamin TABLET 1 TAB PO (08:20)
[2024-09-17] MEDS: buPROPion HCl XL 300 MG TAB.ER.24H PO (08:20)
[2024-09-17] MEDS: Cyanocobalamin (Vitamin B-12) 100 MCG TABLET PO (08:20)
[2024-09-17] MEDS: Gabapentin 600 MG TABLET PO ×2 (08:21→21:50)
[2024-09-17] MEDS: 0.9 % Sodium Chloride Flush 3 ML SYRINGE IVFLUSH ×3 (08:22→21:52)
[2024-09-17] MEDS: Acetaminophen 325 MG TABLET 650 MG PO ×2 (08:22→16:34)
[2024-09-17 10:04] LABS: INTERNATIONAL NORM RATIO 2.8 (0.9-1.1); Prothrombin Time 33.2 SEC (10.9-12.4)
[2024-09-17] MEDS: Topiramate 100 MG TABLET PO ×2 (13:04→21:50)
[2024-09-17 13:05] VITALS: BP 159/92
[2024-09-17] MEDS: amLODIPine Besylate 10 MG TABLET PO (13:05)
[2024-09-17] MEDS: SODIUM CHLORIDE 0.9% IV ×2 (13:41→14:22)
[2024-09-17] MEDS: SODIUM THIOSULFATE IV ×2 (13:41→14:22)
--- NOTE | 2024-09-17 13:44 | HO.PM.IMPN ---
Subjective Subjective Date of Service: 09/17/24 Interval History: seen and evaluated this morning Has dialysis session today pain at wounds sites no other events Physical Exam Vital Signs: Vital Signs: Last Vital Signs Temp 99 F 09/17/24 07:23 Pulse 74 09/17/24 07:23 Resp 16 09/17/24 07:23 BP 159/92 H 09/17/24 13:05 Pulse Ox 93 09/17/24 07:23 O2 Del Method Room Air 09/17/24 07:23 O2 Flow Rate 6 09/05/24 12:46 BMI result Body Mass Index 27.4 Const: Other: Constitutional : Awake, interactive, frail looking, not in distress Neck : Normal inspection, Supple Cardiovascular : RRR, no JVP, no lower extremity edema Respiratory : good bilateral air entry, no crackles, no wheezes or rhonchi Gastrointestinal: soft, lax, Normal bowel sounds, Non tender Skin : Warm, Dry, bilateral lower extremities wounds covered with dressing , bilateral flank wounds covered with dressing Neurological : Alert & oriented x3, No focal deficit Objective Data Active Medications [facility]etaminophen ([facility] 325 Mg Tablet) [facility] Admin: 09/17/24 08:22 Dose: 650 mg Documented By: GEETHA Albuterol Sulfate (Albuterol Sulfate 90 Mcg 8 Gm Inhaler) 2 puff INHALE RQ4H PRN PRN Reason: Wheezing Amlodipine Besylate (Amlodipine Besylate 10 Mg Tablet) 10 mg PO DAILY [facility]; Protocol Last Admin: 09/17/24 13:05 Dose: 10 mg Documented By: GEETHA Bupropion HCl (Bupropion Hcl Xl 300 Mg Tab.Er.24h) 300 mg PO DAILY [facility] Last Admin: 09/17/24 08:20 Dose: 300 mg Documented By: GEETHA Clonidine HCl (Clonidine Hcl 0.2 Mg Tablet) 0.2 mg PO BEDTIME [facility]; Protocol Last Admin: 09/16/24 21:23 Dose: 0.2 mg Documented By: KRISTEN Cyanocobalamin (Cyanocobalamin (Vitamin B-12) 100 Mcg Tablet) 100 mcg PO DAILY [facility] Last Admin: 09/17/24 08:20 Dose: 100 mcg Documented By: GEETHA Doxepin HCl (Doxepin Hcl 10 Mg Capsule) 10 mg PO BEDTIME [facility] Last Admin: 09/16/24 21:24 Dose: 10 mg Documented By: KRISTEN Epoetin Devin-epbx (Epoetin Devin-Epbx 10,000 Unit/Ml Vial) 8,000 unit IVPUSH TuThSa@1800 [facility] Last Admin: 09/15/24 19:41 Dose: 8,000 unit Documented By: ANTONIETA Gabapentin (Gabapentin 600 Mg Tablet) 600 mg PO BID [facility] Last Admin: 09/17/24 08:21 Dose: 600 mg Documented By: GEETHA Heparin Sodium (Porcine) (Heparin Sodium,Porcine 5,000 Unit/Ml Vial) 5,000 unit INTRACATH TUTHSA@1645 [facility] Last Admin: 09/15/24 15:41 Dose: Not Given Documented By: PORSCHE Non-Admin Reason: Given in Dialysis Hydromorphone HCl (Hydromorphone Hcl 0.5 Mg/0.5 Ml Syringe) 0.5 mg IVPUSH Q4H PRN; Protocol PRN Reason: Pain, Severe (Pain Scale 7-10) Last Admin: 09/17/24 13:08 Dose: 0.5 mg Documented By: GEETHA Hydroxyzine HCl (Hydroxyzine Hcl 50 Mg Tablet) 50 mg PO TID PRN PRN Reason: Anxiety Last Admin: 09/16/24 21:23 Dose: 50 mg Documented By: KRISTEN Sodium Thiosulfate 12.5 gm/ (Sodium Chloride) 200 mls @ 400 mls/hr IV Q30M [facility] Stop: 09/17/24 14:59 Sodium Thiosulfate 12.5 gm/ (Sodium Chloride) 200 mls @ 400 mls/hr IV Q30M [facility] Stop: 09/17/24 10:44 Magnesium Hydroxide (Milk Of Magnesia 30 Ml Oral.Susp) 30 ml PO DAILY PRN PRN Reason: Constipation Melatonin (Melatonin 3 Mg Tablet) 6 mg PO BEDTIME PRN PRN Reason: Insomnia Last Admin: 09/16/24 21:22 Dose: 6 mg Documented By: KRISTEN Meropenem (Meropenem 500 Mg Vial) 500 mg IV TuThSa@1800 [facility] Stop: 09/30/24 17:59 Last Admin: 09/15/24 19:41 Dose: 500 mg Documented By: ANTONIETA Methadone HCl (Methadone Hcl 20 Mg/2 Ml Oral.Conc) 100 mg PO DAILY [facility] Last Admin: 09/17/24 08:18 Dose: 100 mg Documented By: GEETHA Co-signed By: JAMIE Methadone HCl (Methadone Hcl 20 Mg/2 Ml Oral.Conc) 95 mg PO BEDTIME [facility] Last Admin: 09/16/24 21:22 Dose: 95 mg Documented By: KRISTEN Co-signed By: MARLENA Multivitamins/Vitamin C (Multivitamin Tablet) 1 tab PO DAILY [facility] Last Admin: 09/17/24 08:20 Dose: 1 tab Documented By: GEETHA Naloxone HCl (Naloxone Hcl 0.4 Mg/Ml Vial) 0.04 mg IVPUSH Q5M PRN PRN Reason: Excessive sedation or RR < 8 Nystatin (Nystatin Oral Susp 500,000 Unit/5 Ml Oral.Susp) 100,000 unit PO DAILY PRN; Protocol PRN Reason: FLARES Nystatin (Nystatin Powder 15 Gm Bottle) 1 appl TOPICAL BID [facility]; Protocol Last Admin: 09/17/24 08:24 Dose: Not Given Documented By: GEETHA Non-Admin Reason: Patient Refused Omeprazole (Omeprazole 20 Mg Capsule.) 20 mg PO DAILY@0630 [facility] Last Admin: 09/17/24 06:03 Dose: 20 mg Documented By: KRISTEN Ondansetron HCl (Ondansetron Hcl 4 Mg/2 Ml Vial) 4 mg IVPUSH Q6H PRN PRN Reason: Nausea and Vomiting Last Admin: 09/15/24 19:52 Dose: 4 mg Documented By: ANTONIETA Polyethylene Glycol (Polyethylene Glycol 3350 17 Gm Powd.Pack) 17 gm PO DAILY PRN PRN Reason: Constipation Last Admin: 09/07/24 17:10 Dose: 17 gm Documented By: POONAM Quetiapine Fumarate (Quetiapine Fumarate 50 Mg Tablet) 50 mg PO TID PRN PRN Reason: Anxiety Last Admin: 09/07/24 09:16 Dose: 50 mg Documented By: POONAM Senna (Sennosides 8.6 Mg Tablet) 8.6 mg PO BEDTIME [facility] Last Admin: 09/16/24 21:23 Dose: 8.6 mg Documented By: KRISTEN Sodium Chloride (0.9 % Sodium Chloride Flush 3 Ml Syringe) 3 ml IVFLUSH QSHIFT [facility] Last Admin: 09/17/24 08:22 Dose: 3 ml Documented By: GEETHA Sodium Hypochlorite (Sodium Hypochlorite 0.5% 473 Ml Solution) 1 appl TOPICAL DAILY [facility] Last Admin: 09/17/24 13:06 Dose: Not Given Documented By: GEETHA Non-Admin Reason: Patient Refused Topiramate (Topiramate 100 Mg Tablet) 100 mg PO BID [facility] Last Admin: 09/17/24 13:04 Dose: 100 mg Documented By: GEETHA Trazodone HCl (Trazodone Hcl 100 Mg Tablet) 100 mg PO BEDTIME PRN PRN Reason: Insomnia Last Admin: 09/16/24 21:24 Dose: 100 mg Documented By: KRISTEN Vancomycin HCl (Vancomycin Hcl 125 Mg Capsule) 125 mg PO Q6H [facility] Last Admin: 09/17/24 13:04 Dose: 125 mg Documented By: GEETHA Warfarin Sodium (Warfarin Sodium 2.5 Mg Tablet) 2.5 mg PO DAILY@1800 [facility] Last Admin: 09/16/24 17:37 Dose: 2.5 mg Documented By: ELINA Labs 09/14/24 12:01 09/15/24 09:06 Labs: Laboratory Results - last 24 hr 09/17/24 09:47 Hold Purple Top SEE NOTE PT 33.2 H D INR 2.8 H Assessment and Plan (1) Clostridium difficile infection: Status: Acute (2) Calciphylaxis: Status: Acute (3) 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 Pt was transferred to [place] due to concern for right atrial mass associated dialysis catheter tip, and pt is now being transferred back to [facility] for continued treatment and STR placement. Infective endocarditis with ESBL Klebsiella Bacteremia complicated with with Right atrial mass TTE at [place] showed severely dilated left atrium and left ventricle, LVEF 59%, adherent mass with mobile components of left atrium Culture positive for Klebsiella pneumoniae that has cephalosporin resistant gene positive and Pseudomonas Pt started on meropenem 500 mg IV, continue for total of 6 weeks to finish by September 18, 2024 Unable to discharge to home as HD center does not cover Meropenem Follow up outpatient with Cardiology at [facility] after discharge for repeat TTE and possible outpatient cardiac MRI Acute C diff infection Stool studies positive for C diff on 08/18 no diarrhea overnight vancomycin 125 mg p.o. q.6 ID following; continue po Vancomycin through the course of IV Abx and 2 days after (september 20, 2024). She has been constipated for 3 days, to use Miralax today Flank wounds Wound care following s/p Debridement of bilateral buttock ulcers 09/05/24 refused dress changing on occasions Switched to Dilaudid IV for pain control, wean down as tolerated new LUE swelling negative doppler, resolving Dilated CBD CT of abdomen and pelvis on 08/07 [place] found distended gallbladder and distal CBD dilation of 1.1 cm and possible filling deficit and distal CBD concerning for choledocholithiasis GI recommendation was for MRCP at [facility], however pt refused Pt currently asymptomatic without RUQ abdominal pain, no nausea or vomiting; has been eating and drinking without issue Currently no indication for MRCP, Consider GI consult and repeat imaging if pt develops symptoms Bilateral lower extremity wounds 2/2 Calciphylaxis Continue sodium thiosulfate 25 g IV 3 times weekly after dialysis Wound care (see notes) Analgesics for pain management Pt has so far declined debridement General surgery consult, require extensive debridement with the assistance of Plastic surgery for wound coverage in his much more extensive that can be handled at our facility. Patient will be best treated at a tertiary care center with multimodality treatment including plastic surgery and inpatient wound care. ESRD On HD T/; to be switched to MWF upon discharge Anemia of chronic disease S/p 3 units PRBCs at [place] Retacrit 52325 units x3 weekly post dialysis Follow CBC, transfuse as necessary HTN Continue amlodipine and clonidine Antiphospholipid syndrome Continue warfarin Daily INR with target range 2-3 GERD Continue PPI Polysubstance use disorder Continue methadone 100 mg daily and 95 mg at bedtime Mood disorder Continue hydroxyzine, trazodone, topiramate, and bupropion Full Code DVT Prophylaxis: On Warfarin reason for continued hospitalization: iv abx Quality Stroke Does the patient have a stroke diagnosis?: No VTE Prior VTE?: No VTE Risk Level:: Medical - moderate - high VTE Device Contraindication: Treatment Not Indicated VTE Drug Contraindication: N/A - Med Ordered
[2024-09-17 15:06] VITALS: BP 154/92; PULSE 82; RESP 18; TEMP 37; O2SAT 93
[2024-09-17] MEDS: Meropenem 500 MG VIAL IV (17:06)
[2024-09-17] MEDS: Warfarin Sodium 2.5 MG TABLET PO (17:20)
--- NOTE | 2024-09-17 17:25 | PC.NURSE ---
Pt to dialysis this am. Upon returning pt asked about dressing changes. States she is in too much pain and asking for pain medication. Pt medicated as needed. Enc pt to have dressings changed. Pt's lunch arrived so pt refusing dressing change at this time. Pt offered again later in shift to have dressings changed but pt responded not until I have my pain medication. I am having too much pain. I went to the [facility] and I dont know what happened Pt again medicated with IV Dilaudid. When approached after medication given to chabge dressings, pt refused. Again encouraged the pt to have dressing changed and importance of repositioning. Pt still refused and is currently eating her dinner
[2024-09-17] MEDS: Epoetin Alfa-epbx 10,000 UNIT/ML VIAL 8000 UNIT IVPUSH (18:36)
[2024-09-17] MEDS: ondansetron HCL 4 MG/2 ML VIAL IVPUSH (18:46)
[2024-09-17 18:58] VITALS: BP 130/88; PULSE 82; RESP 16; TEMP 36.9; O2SAT 94
[2024-09-17] MEDS: methADONE HCl 20 MG/2 ML ORAL.CONC 95 MG PO (21:45)
[2024-09-17] MEDS: Doxepin HCl 10 MG CAPSULE PO (21:48)
[2024-09-17 21:49] VITALS: BP 130/88
[2024-09-17] MEDS: hydrOXYzine HCL 50 MG TABLET PO (21:49)
[2024-09-17] MEDS: cloNIDine HCL 0.2 MG TABLET PO (21:49)
[2024-09-17] MEDS: Sennosides 8.6 MG TABLET PO (21:50)
[2024-09-17] MEDS: traZODone HCL 100 MG TABLET PO (21:50)
[2024-09-18 04:00] VITALS: BP 134/79; PULSE 99; RESP 18; TEMP 36.2; O2SAT 94
--- NOTE | 2024-09-18 04:12 | PC.NURSE ---
pt refused Vital signs at this time, will take at 0600 during med pass, respirations even non-labored, no distress noted, Pt allowed to sleep
[2024-09-18] MEDS: vancomycin HCL 125 MG CAPSULE PO ×3 (06:00→16:16)
[2024-09-18] MEDS: Omeprazole 20 MG CAPSULE.DR PO (06:05)
[2024-09-18] MEDS: HYDROmorphone HCl 0.5 MG/0.5 ML SYRINGE IVPUSH (06:10)
[2024-09-18 07:01] VITALS: BP 126/76; PULSE 76; RESP 18; TEMP 36.5; O2SAT 96
[2024-09-18 07:08] VITALS: BP 130/60; PULSE 97; RESP 18; TEMP 36.5; O2SAT 99
[2024-09-18] MEDS: Acetaminophen 325 MG TABLET 650 MG PO ×2 (08:06→16:15)
[2024-09-18] MEDS: buPROPion HCl XL 300 MG TAB.ER.24H PO (08:06)
[2024-09-18] MEDS: amLODIPine Besylate 10 MG TABLET PO (08:06)
[2024-09-18] MEDS: Multivitamin TABLET 1 TAB PO (08:07)
[2024-09-18] MEDS: Cyanocobalamin (Vitamin B-12) 100 MCG TABLET PO (08:07)
[2024-09-18] MEDS: Gabapentin 600 MG TABLET PO ×2 (08:07→20:23)
[2024-09-18] MEDS: methADONE HCl 20 MG/2 ML ORAL.CONC 100 MG PO (08:07)
[2024-09-18] MEDS: Topiramate 100 MG TABLET PO ×2 (08:07→20:23)
[2024-09-18] MEDS: 0.9 % Sodium Chloride Flush 3 ML SYRINGE IVFLUSH ×2 (08:08→16:16)
[2024-09-18] MEDS: HYDROmorphone HCl 2 MG TABLET 1 MG PO ×3 (11:09→20:22)
--- NOTE | 2024-09-18 11:18 | P.PNIM_ITS ---
Subjective Subjective Date of Service: 09/18/24 Interval History: seen and evaluated this morning feels better overall pain at wounds sites no other events Review of Systems Review of Systems: Yes all other systems are reviewed and are negative Physical Exam 2 Vital Signs: Vital Signs: Last Vital Signs Temp 97.7 F 09/18/24 07:08 Pulse 97 09/18/24 07:08 Resp 18 09/18/24 07:08 BP 130/60 09/18/24 07:08 Pulse Ox 99 09/18/24 07:08 O2 Del Method Room Air 09/18/24 07:08 O2 Flow Rate 6 09/05/24 12:46 BMI result Body Mass Index 27.4 Const: Other: Constitutional : Awake, interactive, frail looking, not in distress Neck : Normal inspection, Supple Cardiovascular : RRR, no JVP, no lower extremity edema Respiratory : good bilateral air entry, no crackles, no wheezes or rhonchi Gastrointestinal: soft, lax, Normal bowel sounds, Non tender Skin : Warm, Dry, bilateral lower extremities wounds covered with dressing , bilateral flank wounds covered with dressing Neurological : Alert & oriented x3, No focal deficit Objective Data Active Medications Acetaminophen (Acetaminophen 325 Mg Tablet) 650 mg PO QSHIFT [facility]S [facility]CLUDE 234 BEDS AT THE [facility] Last Admin: 09/18/24 08:06 Dose: 650 mg Documented By: APOLINAR Albuterol Sulfate (Albuterol Sulfate 90 Mcg 8 Gm Inhaler) 2 puff INHALE RQ4H PRN PRN Reason: Wheezing Amlodipine Besylate (Amlodipine Besylate 10 Mg Tablet) 10 mg PO DAILY [facility] 234 BEDS AT [facility]; Protocol Last Admin: 09/18/24 08:06 Dose: 10 mg Documented By: APOLINAR Bupropion HCl (Bupropion Hcl Xl 300 Mg Tab.Er.24h) 300 mg PO DAILY [facility] 234 BEDS AT [facility] Last Admin: 09/18/24 08:06 Dose: 300 mg Documented By: APOLINAR Clonidine HCl (Clonidine Hcl 0.2 Mg Tablet) 0.2 mg PO BEDTIME [facility]CLUDE 234 BEDS AT [facility]; Protocol Last Admin: 09/17/24 21:49 Dose: 0.2 mg Documented By: KRISTEN Cyanocobalamin (Cyanocobalamin (Vitamin B-12) 100 Mcg Tablet) 100 mcg PO DAILY [facility]CLUDE 234 BEDS AT [facility] Last Admin: 09/18/24 08:07 Dose: 100 mcg Documented By: APOLINAR Doxepin HCl (Doxepin Hcl 10 Mg Capsule) 10 mg PO BEDTIME [facility]CLUDE 234 BEDS AT [facility] Last Admin: 09/17/24 21:48 Dose: 10 mg Documented By: KRISTEN Epoetin Devin-epbx (Epoetin Devin-Epbx 10,000 Unit/Ml Vial) 8,000 unit IVPUSH TuThSa@1800 [facility]CLUDE 234 BEDS AT [facility] Last Admin: 09/17/24 18:36 Dose: 8,000 unit Documented By: GEETHA Gabapentin (Gabapentin 600 Mg Tablet) 600 mg PO BID [facility] 234 BEDS AT [facility] Last Admin: 09/18/24 08:07 Dose: 600 mg Documented By: APOLINAR Heparin Sodium (Porcine) (Heparin Sodium,Porcine 5,000 Unit/Ml Vial) 5,000 unit INTRACATH TUTHSA@1645 [facility]CLUDE 234 BEDS AT [facility] Last Admin: 09/17/24 16:31 Dose: Not Given Documented By: GEETHA Non-Admin Reason: dialysis med Hydromorphone HCl (Hydromorphone Hcl 2 Mg Tablet) 1 mg PO Q4H PRN PRN Reason: Pain, Severe (Pain Scale 7-10) Last Admin: 09/18/24 11:09 Dose: 1 mg Documented By: APOLINAR Hydroxyzine HCl (Hydroxyzine Hcl 50 Mg Tablet) 50 mg PO TID PRN PRN Reason: Anxiety Last Admin: 09/17/24 21:49 Dose: 50 mg Documented By: KIRSTEN Sodium Thiosulfate 12.5 gm/ (Sodium Chloride) 200 mls @ 400 mls/hr IV Q30M COUNTS INCLUDE 234 BEDS AT THE [facility] Stop: 09/17/24 10:44 Magnesium Hydroxide (Milk Of Magnesia 30 Ml Oral.Susp) 30 ml PO DAILY PRN PRN Reason: Constipation Melatonin (Melatonin 3 Mg Tablet) 6 mg PO BEDTIME PRN PRN Reason: Insomnia Last Admin: 09/16/24 21:22 Dose: 6 mg Documented By: KRISTEN Meropenem (Meropenem 500 Mg Vial) 500 mg IV TuThSa@1800 [facility]S INCLUDE 234 BEDS AT [facility] Stop: 09/30/24 17:59 Last Admin: 09/17/24 17:06 Dose: 500 mg Documented By: GEETHA Methadone HCl (Methadone Hcl 20 Mg/2 Ml Oral.Conc) 100 mg PO DAILY [facility]CLUDE 234 BEDS AT [facility] Last Admin: 09/18/24 08:07 Dose: 100 mg Documented By: APOLINAR Co-signed By: CALEB Methadone HCl (Methadone Hcl 20 Mg/2 Ml Oral.Conc) 95 mg PO BEDTIME [facility]CLUDE 234 BEDS AT [facility] Last Admin: 09/17/24 21:45 Dose: 95 mg Documented By: KRISTEN Co-signed By: GEOVANNA Multivitamins/Vitamin C (Multivitamin Tablet) 1 tab PO DAILY [facility]CLUDE 234 BEDS AT THE [facility] Last Admin: 09/18/24 08:07 Dose: 1 tab Documented By: APOLINAR Naloxone HCl (Naloxone Hcl 0.4 Mg/Ml Vial) 0.04 mg IVPUSH Q5M PRN PRN Reason: Excessive sedation or RR < 8 Nystatin (Nystatin Oral Susp 500,000 Unit/5 Ml Oral.Susp) 100,000 unit PO DAILY PRN; Protocol PRN Reason: FLARES Nystatin (Nystatin Powder 15 Gm Bottle) 1 appl TOPICAL BID [facility]S INCLUDE 234 BEDS AT THE [facility]; Protocol Last Admin: 09/18/24 08:13 Dose: Not Given Documented By: APOLINAR Non-Admin Reason: Patient Refused Omeprazole (Omeprazole 20 Mg Capsule.) 20 mg PO DAILY@0630 [facility]S INCLUDE 234 BEDS AT THE [facility] Last Admin: 09/18/24 06:05 Dose: 20 mg Documented By: KRISTEN Ondansetron HCl (Ondansetron Hcl 4 Mg/2 Ml Vial) 4 mg IVPUSH Q6H PRN PRN Reason: Nausea and Vomiting Last Admin: 09/17/24 18:46 Dose: 4 mg Documented By: GEETHA Polyethylene Glycol (Polyethylene Glycol 3350 17 Gm Powd.Pack) 17 gm PO DAILY PRN PRN Reason: Constipation Last Admin: 09/07/24 17:10 Dose: 17 gm Documented By: POONAM Quetiapine Fumarate (Quetiapine Fumarate 50 Mg Tablet) 50 mg PO TID PRN PRN Reason: Anxiety Last Admin: 09/07/24 09:16 Dose: 50 mg Documented By: POONAM Senna (Sennosides 8.6 Mg Tablet) 8.6 mg PO BEDTIME [facility]S INCLUDE 234 BEDS AT THE [facility] Last Admin: 09/17/24 21:50 Dose: 8.6 mg Documented By: KRISTEN Sodium Chloride (0.9 % Sodium Chloride Flush 3 Ml Syringe) 3 ml IVFLUSH QSHI Last Admin: 09/18/24 08:08 Dose: 3 ml Documented By: APOLINAR Sodium Hypochlorite (Sodium Hypochlorite 0.5% 473 Ml Solution) 1 appl TOPICAL DAILY COUNTS INCLUDE 234 BEDS AT THE [facility] Last Admin: 09/18/24 11:09 Dose: Not Given Documented By: APOLINAR Non-Admin Reason: Patient Refused Topiramate (Topiramate 100 Mg Tablet) 100 mg PO BID [facility]S INCLUDE 234 BEDS AT THE [facility] Last Admin: 09/18/24 08:07 Dose: 100 mg Documented By: APOLINAR Trazodone HCl (Trazodone Hcl 100 Mg Tablet) 100 mg PO BEDTIME PRN PRN Reason: Insomnia Last Admin: 09/17/24 21:50 Dose: 100 mg Documented By: KRISTEN Vancomycin HCl (Vancomycin Hcl 125 Mg Capsule) 125 mg PO Q6H COUNTS INCLUDE 234 BEDS AT THE [facility] Last Admin: 09/18/24 11:08 Dose: 125 mg Documented By: APOLINAR Warfarin Sodium (Warfarin Sodium 2.5 Mg Tablet) 2.5 mg PO DAILY@1800 COUNTS INCLUDE 234 BEDS AT THE [facility] Last Admin: 09/17/24 17:20 Dose: 2.5 mg Documented By: GEETHA Estrada 09/14/24 12:01 09/15/24 09:06 Assessment and Plan (1) Clostridium difficile infection: Status: Acute (2) Calciphylaxis: Status: Acute (3) 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 Pt was transferred to [place] due to concern for right atrial mass associated dialysis catheter tip, and pt is now being transferred back to [facility] for continued treatment and STR placement. Infective endocarditis with ESBL Klebsiella Bacteremia complicated with with Right atrial mass TTE at [facility] showed severely dilated left atrium and left ventricle, LVEF 59%, adherent mass with mobile components of left atrium Culture positive for Klebsiella pneumoniae that has cephalosporin resistant gene positive and Pseudomonas Pt started on meropenem 500 mg IV, continue for total of 6 weeks to finish by September 18, 2024 Unable to discharge to home as HD center does not cover Meropenem Follow up outpatient with Cardiology at [facility] after discharge for repeat TTE and possible outpatient cardiac MRI Acute C diff infection Stool studies positive for C diff on 08/18 no diarrhea overnight vancomycin 125 mg p.o. q.6 ID following; continue po Vancomycin through the course of IV Abx and 2 days after (september 20, 2024). She has been constipated for 3 days, to use Miralax today Flank wounds Wound care following s/p Debridement of bilateral buttock ulcers 09/05/24 refused dress changing on occasions Switched to Dilaudid PO for pain control rather than IV, wean down as tolerated Dilated CBD CT of abdomen and pelvis on 08/07 [facility] found distended gallbladder and distal CBD dilation of 1.1 cm and possible filling deficit and distal CBD concerning for choledocholithiasis GI recommendation was for MRCP at [facility], however pt refused Pt currently asymptomatic without RUQ abdominal pain, no nausea or vomiting; has been eating and drinking without issue Currently no indication for MRCP, Consider GI consult and repeat imaging if pt develops symptoms Bilateral lower extremity wounds 2/2 Calciphylaxis Continue sodium thiosulfate 25 g IV 3 times weekly after dialysis Wound care (see notes) Analgesics for pain management Pt has so far declined debridement General surgery consult, require extensive debridement with the assistance of Plastic surgery for wound coverage in his much more extensive that can be handled at our facility. Patient will be best treated at a tertiary care center with multimodality treatment including plastic surgery and inpatient wound care. new LUE swelling negative doppler, resolving ESRD On HD T//Thu; to be switched to MWF upon discharge Anemia of chronic disease S/p 3 units PRBCs at [facility] Retacrit 83157 units x3 weekly post dialysis Follow CBC, transfuse as necessary HTN Continue amlodipine and clonidine Antiphospholipid syndrome Continue warfarin Daily INR with target range 2-3 GERD Continue PPI Polysubstance use disorder Continue methadone 100 mg daily and 95 mg at bedtime Mood disorder Continue hydroxyzine, trazodone, topiramate, and bupropion Full Code DVT Prophylaxis: On Warfarin reason for continued hospitalization: iv abx Quality Stroke Does the patient have a stroke diagnosis?: No VTE Prior VTE?: No VTE Risk Level:: Medical - moderate - high VTE Device Contraindication: Treatment Not Indicated VTE Drug Contraindication: N/A - Med Ordered
[2024-09-18] MEDS: hydrOXYzine HCL 50 MG TABLET PO ×2 (13:46→20:23)
[2024-09-18] MEDS: ondansetron HCL 4 MG/2 ML VIAL IVPUSH (13:46)
[2024-09-18 15:35] VITALS: BP 132/84; PULSE 69; RESP 12; TEMP 36.6; O2SAT 96
[2024-09-18] MEDS: Warfarin Sodium 2.5 MG TABLET PO (17:35)
[2024-09-18 19:30] VITALS: BP 124/75; PULSE 68; RESP 17; TEMP 36.6; O2SAT 96
[2024-09-18] MEDS: methADONE HCl 20 MG/2 ML ORAL.CONC 95 MG PO (20:20)
[2024-09-18] MEDS: Sennosides 8.6 MG TABLET PO (20:23)
[2024-09-18] MEDS: cloNIDine HCL 0.2 MG TABLET PO (20:23)
[2024-09-18] MEDS: Doxepin HCl 10 MG CAPSULE PO (20:23)
[2024-09-19] MEDS: vancomycin HCL 125 MG CAPSULE PO ×3 (00:10→11:46)
[2024-09-19] MEDS: Acetaminophen 325 MG TABLET 650 MG PO ×2 (00:11→11:46)
[2024-09-19] MEDS: 0.9 % Sodium Chloride Flush 3 ML SYRINGE IVFLUSH ×2 (00:12→11:47)
[2024-09-19 03:39] VITALS: BP 122/70; PULSE 66; RESP 18; TEMP 36.3; O2SAT 96
[2024-09-19] MEDS: HYDROmorphone HCl 2 MG TABLET 1 MG PO ×3 (04:16→12:27)
[2024-09-19] MEDS: Omeprazole 20 MG CAPSULE.DR PO (06:45)
[2024-09-19 07:36] VITALS: BP 132/88; PULSE 70; RESP 18; TEMP 36.7; O2SAT 99
--- NOTE | 2024-09-19 11:38 | MHC.CM.PN ---
Addendum entered by Theresa Machado RN 09/19/24 11:47: Will resume HD @ [facility] Thursday 09/21 @ 6am - HD center to arrange transport. Patient aware. Original Note: Patient has completed course of IV abx. Continues to decline STR. Prefers home w/ services. [facility] will provide SN (wound care) and PT. Report she is coordinating restarting [employer] services and her neighbor will assist until that is in place. BLS transport scheduled for 3pm. and RN aware. Last IMM 09/18.
[2024-09-19 11:46] VITALS: BP 141/81; PULSE 68; RESP 16; TEMP 36.9; O2SAT 98
[2024-09-19] MEDS: Gabapentin 600 MG TABLET PO (11:46)
[2024-09-19] MEDS: buPROPion HCl XL 300 MG TAB.ER.24H PO (11:46)
[2024-09-19] MEDS: Cyanocobalamin (Vitamin B-12) 100 MCG TABLET PO (11:47)
[2024-09-19] MEDS: Topiramate 100 MG TABLET PO (11:47)
[2024-09-19] MEDS: amLODIPine Besylate 10 MG TABLET PO (11:47)
[2024-09-19] MEDS: Multivitamin TABLET 1 TAB PO (11:47)
[2024-09-19] MEDS: methADONE HCl 20 MG/2 ML ORAL.CONC 100 MG PO (11:47)
--- NOTE | 2024-09-19 12:50 | P.F2F_ITS ---
Service Date Service Date: 09/19/24 Encounter Date of encounter: 09/19/24 Reasons for Services Signs and symptoms assessed: Calciphylaxis; open wounds Reason for residential: wound care ( Bilateral Lower Legs - Cleanse with NS moist gauze, dry well. Apply skin prep to periwound. Cover moist wounds with single layer of Xeroform followed by Gauze, ABD pad and wrap. Change every other day. May cover black dry eschar with dry gauze only. Goal is to keep black eschar dry and stable), teach disease management (Bilateral Ischium and coccyx - Apply barrier cream to protect from Friction and moisture. Apply foam dressing if available outpt. ) and other (Posterior Hip and Flank area - Off load pressure with Q2hr turns and pillows. Cleanse with NS moist gauze, Apply thick barrier to wound edges, apply durafiber AG to wound beds, cover with dry gauze, ABD pads. Change every other day. ) Homebound: Leaving the home is medically contraindicated at this time without the asist of a device and/or another person due th the listed conditions above and below. Reason homebound: unsteady gait / fall risk and unable to drive Certification: Based on the above findings, I certify that this patient is confined to the home and needs intermittent residential care, physical therapy and/or speech therapy, or continues to need occupational therapy. The patient is under my care, and I have initiated the establishment of the plan of care. The patient will be followed by a physician who will periodically review the plan of care. Time Spent With Patient Time: Total time managing care of this patient today ____ minutes.
--- NOTE | 2024-09-19 12:56 | PM.DS ---
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 08/26/24 01:48 Consult to Wound Care Routine Reason for consultation: multiple chronic wound sto BLE, buttocks, flanks 09/03/24 01:59 Consult to Wound Care Routine Reason for consultation: multiple chronic wounds to B/L lowers legs, & flanks 09/04/24 00:32 Consult to Wound Care Routine Reason for consultation: multiple chronic wounds to BLE and hips 09/18/24 01:16 Consult to Wound Care Routine Reason for consultation: BLE & hips chronic wounds, fungal to groin appears to be improving DS: Diagnosis Discharge Diagnosis (1) Clostridium difficile infection: Status: Acute (2) Calciphylaxis: Status: Acute (3) 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 for full details please return to EMR. Admission note HPI Pt is a 43-year-old female with a PMH significant for ESRD on HD, lupus, antiphospholipid syndrome with hx of DVTs on warfarin, anemia of chronic disease, hx of MRSA bacteremia, opioid use disorder on methadone, cocaine use disorder, HTN, GERD, and migraines who initially presented to [facility] on 07/27/2024 with worsening lower leg wounds suspected secondary to calciphylaxis as pt was on warfarin and ESRD on HD. Treated with sodium thiosulfate. Patient's stay was complicated by sepsis and Klebsiella pneumoniae bacteremia. Plan was for debridement of wounds, but pt continually refused and biopsies were never obtained. Had echocardiogram that revealed mobile mass on right atrium suspected to be associated with dialysis catheter tip. IR here did not feel comfortable removing catheter due to lack of Cardiothoracic back up and pt was transferred to [facility] where she was admitted for 16 days. At [place] pt had TTE showed severely dilated left atrium and left ventricle with EF 59% with catheter and adherent mass with mobile components. HD catheter removed by IR and replacement placed on 08/04. Catheter tip culture positive for Klebsiella pneumoniae and Pseudomonas colonization which was cephalosporin resistant. Pt was started on meropenem 500 mg IV which should be continued per ID for 6 weeks. Additionally pt had CT of abdomen done on 08/07 which showed right atrial filling defect similar to TTE, concerning for intramural thrombosis vs right atrial mass. Pt was then started on heparin drip. JAMESON performed on 08/09 showed right atrial echogenic mass with mobile attachments, concerning for thrombosis vs myxoma vs vegetation. Had Hardik catheter placed by IR on 08/10/2024. Plan is for pt to follow up with Cardiology at [facility] at time of discharge from [facility] to repeat TTE and consider outpatient cardiac MRI. Additionally, pt had CT of abdomen on 08/07 which showed distended gallbladder and distal CBD dilation of 1.1 cm as well as possible filling deficit in the distal CBD indicating possible choledocholithiasis. GI recommended MRCP, however pt refused and apparently wanted it completed at [facility] when she was transferred. As for ESRD on HD, pt was receiving HD T//Thu, and was transfused a total of 3 units PRBC. Pt is now being transferred back to [facility] for continued care and likely STR placement. Pt seen and evaluated in her room where she is resting comfortably in her bed. Pt is slightly irritated that she is not getting her nightly meds, especially analgesics. Pt also complains of renal diet and would like to be placed back on a normal diet. Complains of all-over diffuse pain, specifically in lower extremities. No nausea or vomiting. Mild central abdominal pain with episodes of diarrhea earlier today. Denies RUQ tenderness. No chest pain/pressure, palpitations. Denies shortness or breath or difficulty breathing. Hospital course The patient was admitted and treated for: # Infective endocarditis with ESBL Klebsiella Bacteremia complicated with with Right atrial mass TTE at [place] showed severely dilated left atrium and left ventricle, LVEF 59%, adherent mass with mobile components of left atrium. Culture positive for Klebsiella pneumoniae that has cephalosporin resistant gene positive and Pseudomonas. repeated cultures negative from 08/18/2024. The patient was started on meropenem 500 mg IV, for total of 6 weeks and finished by September 18, 2024. She was unable to discharge to home as HD center does not cover Meropenem. To be Follow up outpatient with Cardiology at [facility] after discharge for repeat TTE and possible outpatient cardiac MRI. # Acute C diff infection Stool studies positive for C diff on 08/18. no diarrhea for weeks now. Kept on Vancomycin 125 mg p.o. q.6. ID following; continue po Vancomycin through the course of IV Abx and 2 days after (september 20, 2024). To be discharged on Vancomycin for 2 more days. # Dilated CBD CT of abdomen and pelvis on 08/07 [place] found distended gallbladder and distal CBD dilation of 1.1 cm and possible filling deficit and distal CBD concerning for choledocholithiasis. GI recommendation was for MRCP at [place], however pt refused. During the rest of hospital stay she was asymptomatic without RUQ abdominal pain, no nausea or vomiting; has been eating and drinking without issue. GI follow up as outpatient and MRCP if needed. # Flank wounds Wound care following s/p Debridement of bilateral buttock ulcers 09/05/24. refused dress changing on occasions. Switched to Dilaudid PO for pain control rather than IV, wean down as tolerated. To discharge on PO Dilaudid. # Bilateral lower extremity wounds 2/2 Calciphylaxis Kept on sodium Thiosulfate 25 g IV 3 times weekly after dialysis and to continue as outpatient dialysis. Wound care provided while wound care nurse. Analgesics for pain management. She was evaluated by General surgery who recommended extensive debridement with the assistance of Plastic surgery for wound coverage in his much more extensive that can be handled at our facility. Patient will be best treated at a tertiary care center with multimodality treatment including plastic surgery and inpatient wound care. To be followed by [facility] and wound clinic. # new LUE swelling. negative doppler, resolved # ESRD. On HD T//Thu; to be switched to MWF upon discharge. # Anemia of chronic disease. S/p 3 units PRBCs at [place]. Retacrit 25648 units x3 weekly post dialysis. # Antiphospholipid syndrome. Continue warfarin. Daily INR with target range 2-3 # Polysubstance use disorder. Continue methadone 100 mg daily and 95 mg at bedtime # Mood disorder. Continue hydroxyzine, trazodone, topiramate, and bupropion Discharge plan Continue wound care Vancomycin orall for 2 more days Follow with Wound clinic as outpatient Dialysis as scheduled Dilaudid as needed for pain Follow up outpatient with Cardiology at [facility] after discharge for repeat TTE and possible outpatient cardiac MRI To follow with [facility] plastic surgery for further debridement and graft Time Attestation Discharge Coordination Time (in mins): 52 Quality: Safe Use of Opioids Does Pt have an Active Cancer Diagnosis on the Problem List?: No Quality: Stroke Does the patient have a stroke diagnosis?: No Physical Exam Vital Signs: Vital Signs: Last Vital Signs Temp 98.4 F 09/19/24 11:46 Pulse 68 09/19/24 11:46 Resp 16 09/19/24 11:46 BP 141/81 H 09/19/24 11:46 Pulse Ox 98 09/19/24 11:46 O2 Del Method Room Air 09/19/24 11:46 O2 Flow Rate 6 09/05/24 12:46 BMI result Body Mass Index 27.4 Const: Other: Constitutional : Awake, interactive, frail looking, not in distress Neck : Normal inspection, Supple Cardiovascular : RRR, no JVP, no lower extremity edema Respiratory : good bilateral air entry, no crackles, no wheezes or rhonchi Gastrointestinal: soft, lax, Normal bowel sounds, Non tender Skin : Warm, Dry, bilateral lower extremities wounds covered with dressing , bilateral flank wounds covered with dressing Neurological : Alert & oriented x3, No focal deficit DS: Data Data Completed and Pending Completed studies during hospitalization [Text1]: Pending at discharge 09/05/24 12:29 Surgical [PTH] Routine Procedures Detoxification Services for Substance Abuse Treatment (05/09/21) Excision of Right Kidney, Percutaneous Approach, Diagnostic (05/29/24) Insertion of Infusion Device into Right Basilic Vein, Percutaneous Approach (02/13/21) Insertion of Infusion Device into Superior Vena Cava, Percutaneous Approach (05/29/24) Insertion of Tunneled Vascular Access Device into Chest Subcutaneous Tissue and Fascia, Percutaneous Approach (05/29/24) Performance of Urinary Filtration, Intermittent, Less than 6 Hours Per Day (07/27/24) Ultrasonography of Superior Vena Cava, Guidance (05/29/24) Discharge Plan Discharge Anticipated Discharge Date/Time: 09/19/24 11:51 Patient Disposition: Home Health Service Discharge Diagnosis: Infective endocarditis Calciphylaxis Referrals: Rhonda ESCOTO [Other] - 1 Day (Resume dialysis Thursday 09/21. New schedule M/W/F 6am chair time. ) [facility] [Outside] - 3-5 Days ([facility] will call you to schedule nursing and physical therapy appointments at home. ) Jose Rashid FNP-RUDDY [Primary Care Provider] - 1 Week Shara Vidal MD [Physician] - 1 Week Discharge Medications: New vancomycin 125 mg Capsule 125 mg PO Q6H Qty: 10 0RF hydromorphone 2 mg Tablet 1 mg PO Q4H PRN (Reason: Pain, Severe (Pain Scale 7-10)) Qty: 20 0RF Rx Instructions: Partial Fill upon patient request. nystatin [[facility]] 100,000 unit/gram Powder 1 appl topical BID Qty: 30 0RF Protocol: Apply to: Apply to: perianal area Dakin's Solution 0.5 % Solution 1 appl topical DAILY Qty: 473 0RF Ensure Liquid 1 ea PO TID Qty: 90 0RF Continued (DME) [place] [facility] See Rx Instructions .Route Qty: 1 0RF Rx Instructions: 4 wheeled walker with seat and brakes (DME) [facility] See [facility] Instructions .Route Qty: 2 0RF Rx Instructions: Grab bars for shower (DME) commode Kit See Rx Instructions .Route Qty: 1 0RF Rx Instructions: 3 in 1 commode oxycodone 5 mg tablet 5 mg PO BID PRN (Reason: Pain) 12 Days Qty: 24 0RF Rx Instructions: NARCOTIC. can only take as prescribed, cannot share med, cannot drive while on med gabapentin 600 mg tablet 600 mg PO BID 30 Days Qty: 60 1RF multivitamin Tablet 1 tab PO DAILY Qty: 30 1RF methadone 10 mg/mL Concentrate 100 mg PO DAILY nystatin 100,000 unit/mL suspension 4 ml PO DAILY PRN (Reason: FLARES) Qty: 60 0RF cyanocobalamin (vitamin B-12) [Vitamin B-12] 100 mcg Tablet 100 mcg PO DAILY Qty: 30 0RF hydroxyzine pamoate 50 mg capsule 50 mg PO TID PRN (Reason: Anxiety) Qty: 90 0RF clonidine HCl 0.2 mg tablet 0.2 mg PO BEDTIME Qty: 30 0RF Protocol: Hold for SBP< HOLD for SBP < : 90 amlodipine 10 mg tablet 10 mg PO DAILY 30 Days Qty: 30 1RF Protocol: Hold for SBP< HOLD for SBP < : 90 omeprazole 20 mg capsule,delayed release(DR/EC) 20 mg PO DAILY@0630 Qty: 30 0RF albuterol sulfate [Ventolin HFA] 90 mcg/actuation Hfa Aerosol Inhaler 2 puff inhalation RQ4H PRN (Reason: Wheezing) Qty: 1 1RF ondansetron 4 mg Tablet,Disintegrating 4 mg PO Q6H PRN (Reason: Migraine Headache) Qty: 60 1RF bupropion HCl 300 mg tablet extended release 24 hr 300 mg PO DAILY Qty: 30 0RF polyethylene glycol 3350 17 gram Powder In Packet 17 g PO DAILY PRN (Reason: Constipation) Qty: 14 0RF trazodone 100 mg Tablet 100 mg PO BEDTIME PRN (Reason: Insomnia) Qty: 30 0RF topiramate 100 mg tablet 100 mg PO BID Qty: 60 0RF quetiapine 50 mg tablet 50 mg PO TID PRN (Reason: Anxiety) Qty: 90 0RF meloxicam 15 mg tablet 15 mg PO DAILY doxepin 10 mg capsule 10 mg PO BEDTIME warfarin 2.5 mg tablet 2.5 mg PO DAILY@1800 sodium thiosulfate 12.5 gram/50 mL (250 mg/mL) Solution 25 g IV TUTHSA darbepoetin aldo in polysorbat 60 mcg/0.3 mL Syringe 60 mcg SUBCUT QWEEK Rx Instructions: Starting 08/23/24 acetaminophen 325 mg tablet 325 mg PO Q6H PRN (Reason: Headache/Pain Mild Scale (1-3)) methadone [Methadone Intensol] 10 mg/mL Concentrate 95 mg PO BEDTIME Discontinued Caplyta 42 mg capsule 42 mg PO DAILY Qty: 30 0RF meropenem 500 mg Recon Soln 500 mg IV TUTHSA Rx Instructions: Infused after Dialysis Discharge Orders: Discharge Order (Routine); Ordered 09/19/24 Ordered By: Aaron Serrano Diet: Advance to usual diet Activity on Discharge: As tolerated Stand Alone Forms: Patient Portal Discharge page Print Language: Greek Activity Restrictions/Additional Instructions: Topical wound care recommendations: 1. Turn and Reposition every 2 hours and as needed for patient comfort.? Use pillows to support off loading positions. 2. Off Load all bony prominences with use of pillows.? 3. Monitor for incontinence and moisture control, use barrier creams when needed for prevention and treatment.Apply antifungal per provider order if needed. 4. Provide adequate and supplemental nutrition.? 5. When applicable maintain blood glucose levels per Providers order. Bilateral Lower Legs - Cleanse with NS moist gauze, dry well. Apply skin prep to periwound. Cover moist wounds with single layer of Xeroform followed by Gauze, ABD pad and wrap. Change every other day. May cover black dry eschar with dry gauze only. Goal is to keep black eschar dry and stable. Posterior Hip and Flank area - Off load pressure with Q2hr turns and pillows. Cleanse with NS moist gauze, Apply thick barrier to wound edges, apply durafiber AG to wound beds, cover with dry gauze, ABD pads. Change every other day. Bilateral Ischium and coccyx - Apply barrier cream to protect from Friction and moisture twice daily. Apply foam dressing if available outpt. Recommend follow up out patient Wound Clinic at [address] [place] [id number] and to call for an appointment at time of discharge. [phone].? Care Plan Goals: Continue wound care Vancomycin orall for 2 more days Follow with Wound clinic as outpatient Dialysis as scheduled Dilaudid as needed for pain Follow up outpatient with Cardiology at [facility] after discharge for repeat TTE and possible outpatient cardiac MRI To follow with [facility] plastic surgery for further debridement and graft Health Concerns: Need of dialysis Open wounds Plan of Treatment: wound care Dialysis Assessment: as above
[2024-09-19 15:16] VITALS: BP 123/8; PULSE 79; RESP 18; TEMP 36.9; O2SAT 100
== END 2024-09-19 15:21 | disposition home health service (06) | DRG 264 ==
PROVIDERS: Internal Medicine; Internal Medicine Hypertension Specialist; Internal Medicine Nephrology; Student in an Organized Health Care Education/Training Program; Surgery; Admitting Provider Internal Medicine; PCP Nurse Practitioner Family; Visit Provider Student in an Organized Health Care Education/Training Program
PROC: 0JB90ZZ Excision of Buttock Subcutaneous Tissue and Fascia, Open Approach (ICD-10-PCS; principal; 2024-09-05 12:20)
DX: I33.0 Acute and subacute infective endocarditis (principal); L89.323 Pressure ulcer of left buttock, stage 3; N18.6 End stage renal disease; A04.72 Enterocolitis due to Clostridium difficile, not specified as recurrent; I13.11 Hypertensive heart and chronic kidney disease without heart failure, with stage 5 chronic kidney disease, or end stage renal disease; F11.20 Opioid dependence, uncomplicated; D68.61 Antiphospholipid syndrome; Z16.12 Extended spectrum beta lactamase (ESBL) resistance; Z16.19 Resistance to other specified beta lactam antibiotics; I96 Gangrene, not elsewhere classified; D63.1 Anemia in chronic kidney disease; K21.9 Gastro-esophageal reflux disease without esophagitis; F19.90 Other psychoactive substance use, unspecified, uncomplicated; K80.50 Calculus of bile duct without cholangitis or cholecystitis without obstruction; F39 Unspecified mood [affective] disorder; B96.5 Pseudomonas (aeruginosa) (mallei) (pseudomallei) as the cause of diseases classified elsewhere; B96.1 Klebsiella pneumoniae [K. pneumoniae] as the cause of diseases classified elsewhere; L94.2 Calcinosis cutis; L89.312 Pressure ulcer of right buttock, stage 2; F17.210 Nicotine dependence, cigarettes, uncomplicated; Z71.6 Tobacco abuse counseling; Z79.01 Long term (current) use of anticoagulants; Z99.2 Dependence on renal dialysis; Z86.14 Personal history of Methicillin resistant Staphylococcus aureus infection; Z86.718 Personal history of other venous thrombosis and embolism; Z79.899 Other long term (current) drug therapy
CPT/HCPCS: 36415; 80048; 82565; 84520; 85025; 85027; 85610; 86704; 86706; 86803; 87040; 87324; 87340; 87493; 87507; 88304; 90656; 90999; 93005; 93971; 97116; 97162; 97530; J0131; J0209; J0360; J1171; J1644; J2003; J2185; J2405; J2704; J2795; J3010; Q5106

== ENCOUNTER → 2024-08-18 18:14 | Outpatient (BNV) | payer OTHER, SELFPAY | PROVIDERS: Admitting Provider Internal Medicine; PCP Nurse Practitioner Family; Visit Provider Internal Medicine | DX: A49.8 Other bacterial infections of unspecified site (principal); I33.0 Acute and subacute infective endocarditis | CPT/HCPCS: 99222; 99232 ==

== ENCOUNTER → 2024-08-18 18:14 | Outpatient (BNV) | payer OTHER, SELFPAY | PROVIDERS: Admitting Provider Internal Medicine; PCP Nurse Practitioner Family; Visit Provider Surgery | DX: R23.4 Changes in skin texture (principal); N18.6 End stage renal disease; Z99.2 Dependence on renal dialysis | CPT/HCPCS: 99222 ==

== ENCOUNTER → 2024-08-18 18:14 | Outpatient (BNV) | payer OTHER, SELFPAY | PROVIDERS: Admitting Provider Internal Medicine; PCP Nurse Practitioner Family; Visit Provider Student in an Organized Health Care Education/Training Program | DX: A49.8 Other bacterial infections of unspecified site (principal); E83.59 Other disorders of calcium metabolism; I33.0 Acute and subacute infective endocarditis | CPT/HCPCS: 99223; 99231; 99233 ==

== ENCOUNTER → 2024-08-18 18:14 | Outpatient (BNV) | payer OTHER, SELFPAY | PROVIDERS: Admitting Provider Internal Medicine; PCP Nurse Practitioner Family; Visit Provider Internal Medicine Nephrology | DX: N18.6 End stage renal disease (principal); Z99.2 Dependence on renal dialysis | CPT/HCPCS: 90935; 99222; 99232 ==